=== PATIENT | male | born 1990 | race Caucasian/White ===

== ENCOUNTER 2016-11-27 13:58 | Inpatient (IN) | payer MEDICARE, MEDICAID ==
--- NOTE | 2016-11-27 14:29 | ED ---
General Adult HPI - General Source: patient, RN notes reviewed Mode of arrival: ambulatory Limitations: no limitations <Gavin Huerta - Last Filed: 11/27/16 17:22> <Gavin Grant - Last Filed: 11/27/16 17:57> - General Chief complaint: Psychiatric Symptoms Stated complaint: suicidal Time Seen by Provider: 11/27/16 14:10 - History of Present Illness Initial comments: This is a 26-year-old male who presents to the emergency department claiming that he is suicidal. Patient states she has a history of bipolar. Patient states she's been suicidal for 2 days but is been trying to tough it out because he has a child and wants to have [facility]. Patient states today after having some arguments it became unbearable and he wanted to come to the emergency department to get some help. Patient denies any physical complaints today. Patient denies headache patient denies numbness weakness. Patient denies chest pain palpitations difficulty breathing Brown of breath. Patient denies any recent fever chills or cough. Patient denies abdominal pain patient denies nausea vomiting diarrhea. (Gavin Huerta) - Related Data Home Medications Medication Instructions Recorded Confirmed carBAMazepine [TEGretol XR] 400 mg PO HS 11/28/14 11/27/16 lamoTRIgine [LaMICtal] 200 mg PO BID 11/28/14 11/27/16 Ibuprofen [Motrin] 800 mg PO TID PRN 09/10/16 11/27/16 Levothyroxine Sodium [Synthroid] 50 mcg PO DAILY@0700 09/10/16 11/27/16 [place] Carbonate 900 mg PO HS 09/10/16 11/27/16 PHENobarbital [Luminal] 97.2 mg PO HS 09/10/16 11/27/16 Vortioxetine Hydrobromide 20 mg PO QAM 09/10/16 11/27/16 [Trintellix] carBAMazepine [carBAMazepine ER] 200 mg PO BID 09/10/16 11/27/16 Brexpiprazole [Rexulti] 2 mg PO HS 11/27/16 11/27/16 Allergies Allergy/AdvReac Type Severity Reaction Status Date / Time No Known Allergies Allergy Verified 11/27/16 14:10 Review of Systems ROS Other: All systems not noted in ROS Statement are negative. <Gavin Huerta - Last Filed: 11/27/16 17:22> ROS Other: All systems not noted in ROS Statement are negative. <Gavin Grant - Last Filed: 11/27/16 17:57> ROS Statement: Those systems with pertinent positive or pertinent negative responses have been documented in the HPI. Past Medical History Past Medical History: Seizure Disorder Additional Past Medical History / Comment(s): has history of epilepsy last seizure November 2014 has acne over entire body History of Any Multi-Drug Resistant Organisms: None Reported Past Surgical History: Adenoidectomy, Appendectomy, Cholecystectomy, Tonsillectomy Past Anesthesia/Blood Transfusion Reactions: No Reported Reaction Past Psychological History: Bipolar, Depression Smoking Status: Never smoker Past Alcohol Use History: None Reported, Occasional Additional Past Alcohol Use History / Comment(s): Pt denies. BAT 0. Past Drug Use History: None Reported Additional Drug Use History / Comment(s): Pt denies. UDS positive for barbiturates however patient is on phenobarb. <Gavin Huerta - Last Filed: 11/27/16 17:22> General Exam Limitations: no limitations <Gavin Huerta - Last Filed: 11/27/16 17:22> General appearance: alert, in no apparent distress Head exam: Present: atraumatic, normocephalic, normal inspection Eye exam: Present: normal appearance, PERRL, EOMI. Absent: scleral icterus, conjunctival injection, periorbital swelling ENT exam: Present: normal exam, mucous membranes moist Neck exam: Present: normal inspection. Absent: tenderness, meningismus, lymphadenopathy Respiratory exam: Present: normal lung sounds bilaterally. Absent: respiratory distress, wheezes, rales, rhonchi, stridor Cardiovascular Exam: Present: regular rate, normal rhythm, normal heart sounds. Absent: systolic murmur, diastolic murmur, rubs, gallop, clicks GI/Abdominal exam: Present: soft, normal bowel sounds. Absent: distended, tenderness, guarding, rebound, rigid Extremities exam: Present: normal inspection, full ROM, normal capillary refill. Absent: tenderness, pedal edema, joint swelling, calf tenderness Back exam: Present: normal inspection Neurological exam: Present: alert, oriented X3, CN II-XII intact Psychiatric exam: Present: normal affect, normal mood Skin exam: Present: warm, dry, intact, normal color. Absent: rash <Gavin Grant - Last Filed: 11/27/16 17:57> - General Exam Comments Initial Comments: GENERAL: Patient is well-developed and well-nourished. Patient is nontoxic and well- hydrated and is in no acute distress. ENT: Neck is soft and supple. No significant lymphadenopathy is noted. Oropharynx is clear. Moist mucous membranes. Neck has full range of motion without eliciting any pain. EYES: The sclera were anicteric and conjunctiva were pink and moist. Extraocular movements were intact and pupils were equal round and reactive to light. Eyelids were unremarkable. PULMONARY: Unlabored respirations. Good breath sounds bilaterally. No audible rales rhonchi or wheezing was noted. CARDIOVASCULAR: There is a regular rate and rhythm without any murmurs gallops or rubs. ABDOMEN: Soft and nontender with normal bowel sounds. No palpable organomegaly was noted. There is no palpable pulsatile mass. SKIN: Skin is clear with no lesions or rashes and otherwise unremarkable. NEUROLOGIC: Patient is alert and oriented x3. Cranial nerves II through XII are grossly intact. Motor and sensory are also intact. Normal speech, volume and content. Symmetrical smile. MUSCULOSKELETAL: Normal extremities with adequate strength and full range of motion. No lower extremity swelling or edema. No calf tenderness. LYMPHATICS: No significant lymphadenopathy is noted PSYCHIATRIC: Patient states she suicidal. (Gavin Huerta) Course <Gavin Huerta - Last Filed: 11/27/16 17:22> <Gavin Grant - Last Filed: 11/27/16 17:57> Vital Signs 11/27/16 14:08 Temperature 98.2 F Pulse Rate 69 Respiratory 16 Rate Blood Pressure 125/63 O2 Sat by Pulse 99 Oximetry - Reevaluation(s) Reevaluation #1: 11/27/16 17:57 Patient medically clear for psychiatric evaluation (Gavin Grant) Medical Decision Making <Gavin Huerta - Last Filed: 11/27/16 17:22> <Gavin Grant - Last Filed: 11/27/16 17:57> - Medical Decision Making Dr. Grant will be taking over the care of this patient at 5 PM (Gavin Huerta) 26 male seen and evaluated by psychiatry will admit for psychiatric evaluation and treatment (Gavin Grant) - Lab Data Lab Results 11/27/16 Range/Units 14:40 Urine Opiates Screen Not Detected (NotDetected) Ur Oxycodone Screen Not Detected (NotDetected) Urine Methadone Screen Not Detected (NotDetected) Ur Propoxyphene Screen Not Detected (NotDetected) Ur Barbiturates Screen Detected H (NotDetected) U Tricyclic Antidepress Not Detected (NotDetected) Ur Phencyclidine Scrn Not Detected (NotDetected) Ur Amphetamines Screen Not Detected (NotDetected) U Methamphetamines Scrn Not Detected (NotDetected) U Benzodiazepines Scrn Not Detected (NotDetected) Urine Cocaine Screen Not Detected (NotDetected) U Marijuana (THC) Screen Not Detected (NotDetected) Disposition <Gavin Huerta - Last Filed: 11/27/16 17:22> <Gavin Grant - Last Filed: 11/27/16 17:57> Clinical Impression: Acute anxiety, Suicidal ideation Disposition: TRANSFER TO PSYCH HOSP/UNIT Condition: Fair
[2016-11-27] MEDS ORDERED: MAG HYDROX/AL HYDROX/SIMETH 30 ML CUP PO PRN (17:53)
[2016-11-27] MEDS ORDERED: MAGNESIUM HYDROXIDE 2,400 MG/10 ML CUP PO PRN (17:53)
[2016-11-27] MEDS ORDERED: ACETAMINOPHEN TAB 325 MG TAB PO PRN (17:53)
[2016-11-27] MEDS ORDERED: IBUPROFEN 800 MG TAB PO PRN (17:57)
[2016-11-27] MEDS ORDERED: NICOTINE 7MG/24HR PATCH TRANSDERM SCH (18:00)
[2016-11-27 18:39] LABS: Bilirubin, Delta 0.2 mg/dL (0.0-0.2); Carbamazepine (Tegretol) 7.4 ug/mL; Lithium 0.5 mmol/L; Total Bilirubin 0.4 mg/dL (0.2-1.3); Total Protein 7.7 g/dL (6.3-8.2)
[2016-11-27] MEDS ORDERED: NON-FORMULARY DRUG (Brexpiprazole [Rexulti] 2 MG) PO SCH (21:00)
[2016-11-27] MEDS: LITHIUM CARBONATE 300 MG CAP PO SCH (21:13)
[2016-11-27] MEDS: lamoTRIgine 100 MG TAB PO SCH (21:13)
[2016-11-27] MEDS: carBAMazepine 400 MG TAB.ER.12H PO SCH (21:13)
[2016-11-28] MEDS: LEVOTHYROXINE 50 MCG TAB PO SCH (06:17)
[2016-11-28] MEDS: lamoTRIgine 100 MG TAB PO SCH ×2 (08:54→20:05)
[2016-11-28] MEDS ORDERED: NON-FORMULARY DRUG (Vortioxetine Hydrobromide [Trintellix] 20 MG) PO SCH (09:00)
[2016-11-28 10:43] LABS: Basophils # (A) 0.1 k/uL (0-0.2); Basophils % (A) 1 %; CH 30.6; CHCM 32.7; Eosinophils # (A) 0.5 k/uL (0-0.7); Eosinophils % (A) 6 %; HCT 44.2 % (39.0-53.0); HDW 2.51; HGB 14.6 gm/dL (13.0-17.5); Luc # (Auto) 0.11; Luc % (Auto) 1; Lymphocytes # (A) 1.9 k/uL (1.0-4.8); Lymphocytes % (A) 24 %; MCH 31.1 pg (25.0-35.0); MCHC 33.1 g/dL (31.0-37.0); MCV 94.2 fL (80.0-100.0); Mean Platelet Volume 7.1; Monocytes # (A) 0.3 k/uL (0-1.0); Monocytes % (A) 4 %; Neutrophils % (A) 63 %; RBC 4.69 m/uL (4.30-5.90); RDW 12.7 % (11.5-15.5); WBC 7.8 k/uL (3.8-10.6); WBC (Perox) 8.03
[2016-11-28 10:44] LABS: Anion Gap 8 mmol/L; Blood Urea Nitrogen 12 mg/dL (9-20); Carbon Dioxide 30 mmol/L (22-30); Chloride 104 mmol/L (98-107); Glucose 90 mg/dL (74-99); Non-African American GFR(MDRD) >60 (>60 ml/min/1.73 sqM); Potassium 4.5 mmol/L (3.5-5.1); Sodium 142 mmol/L (137-145)
--- NOTE | 2016-11-28 13:27 | P.HP ---
Psychiatric H&P - . H&P Date: 11/28/16 History & Physical: IDENTIFYING DATA: Mr. Lopez 26-year-old developmentally disabled male who presented voluntarily to the psychiatric unit. HISTORY OF PRESENT ILLNESS: He stated that he was depressed and angry following an argument with his yesterday. During the argument he alleged she told him that she plans to take her son and moved to her own apartment. He stated that he was doing well until the day of admission. They received their disability and he wanted to "pay some bills." She wanted to "wait until tomorrow". He alleged he was angry because she would not let him go to the store to pay the bills alone. The argument continued until he told her that he wants to go to the hospital because he was thinking about suicide. I spoke with his Bre. She stated that he has been feeling "down" since he lost his job. "We have a 1-year-old son and Stephan lost his job after his son's birthday." She believes he is depressed because he's not been able to find work. He feels "disappointed" because he is unable to support his family. Yesterday he wanted to pay bills. She wanted to wait until the following day because the baby was sick and the weather was poor. She stated that he "kept pushing." The arguing escalated until she conceded and accompanied him to pay the bills. On the way back from the store he was angry and "kept arguing." At one point he stopped the car and demanded that she get out. She refused and he returned home. He then told her that he wanted to "check himself in" because he was so angry he could "hurt himself." PAST PSYCHIATRIC HISTORY: He is known to the unit staff from prior admissions. He was discharged on 09/10/2016 with the diagnoses of adjustment disorder with mixed disturbance of emotion and conduct and suicidal ideation. His presentation was similar to the present and that he complained of an argument with his and she is threatening to leave him and take their child. According to the record he has had multiple psychiatric hospitalizations since adolescence. He first received mental health treatment when he was 18 years old. His first psychiatric hospitalization was at age 20. He has been hospitalized over 17 times. He is enrolled with [facility]. PAST MEDICAL HISTORY: He has a history of a seizure disorder treated with phenobarbital 32.4 mg 3 times a day, Lamictal 200 mg twice a day carbamazepine ER 20 mg twice daily and carbamazepineXR 400 mg at bedtime. His last seizure was in 2014. ALLERGIES: NO KNOWN DRUG ALLERGIES. SUBSTANCE USE HISTORY: He denied use of alcohol or drugs. He denied a history of alcohol or drug use problems. He has never been in a substance abuse treatment program. His urine drug screen was positive for barbiturates ( phenobarbital). FAMILY PSYCHIATRIC/SUBSTANCE USE HISTORY: He is unaware of a family history of mental health or substance use problems. LEGAL HISTORY: He is on probation for domestic violence charges stemming from an incident in March 2015. He is on probation to February 2017. This was his first domestic violence charge. SOCIAL HISTORY: He was born and raised in [facility]. He attended special education and graduated from program at age 17. He is currently unemployed. He has been 2 years and has a [id number] son. He has both receives social security disability. MENTAL STATUS EXAM: He presented as a bespectacled casually groomed 26-year-old male who was pleasant on approach. He maintained eye contact and appeared to attend to the interview. He had a distressed facial expression. He was alert and oriented to person, place and time. He showed slight psychomotor retardation but no abnormality of gait or station. His speech was dysarthric with normal rate, rhythm and volume. His affect was depressed. He denied current suicidal ideation or wishes. He denied homicidal ideation. He expressed depressive cognitions such as hopelessness and helplessness. He ruminated about his marital relationship but did not express obsessions or demonstrate compulsions he denied phobias, ideas reference, paranoid ideation and did not express delusional beliefs. His thinking was concrete but his associations are coherent and logical. He denied hallucinations and did not appear to be responding to internal stimuli. Global impression of intellect is below average. He is aware of his illness and need for mental health treatment. STRENGTHS: Engagement with [facility][1], stable income, family support. WEAKNESSES: Developmental disability, poor stress tolerance, poor problem- solving skills. IMPRESSION: Is a 26-year-old male with a developmental disability and a seizure disorder. He presented once again to the unit with complaints of acute suicidal or ideation following an argument with his . He has a history of prior hospitalizations related to conflict in his interpersonal relationships and/or his marriage. The past suicidal thoughts quickly past and he was able to resume outpatient mental health treatment. He should be treated on an inpatient basis temporarily until the level of his anger diminishes where he received can return to outpatient treatment.. PRINCIPLE DIAGNOSIS: Adjustment disorder with disturbance of mood and behavior, developmental disability, seizure disorder, marital conflict RECOMMENDATION: Suicide precautions with 15 minute checks, resume outpatient anticonvulsant medications including Tegretol ER 200 mg twice a day and Tegretol XR 400 mg at bedtime, Lamictal 20 mg twice a day and phenobarbital 97.2 mg at bedtime. Continue lithium carbonate 900 mg at bedtime. residential support worker to contact his about bringing in his outpatient prescriptions for Rexulti 2 milligrams at bedtime and Trintellix 20 mg a.m. residential support worker to contact his and coordinate discharge plans. Encourage participation in therapeutic groups and activities. Evaluate clinical status and response to treatment daily basis. Allergies Allergy/AdvReac Type Severity Reaction Status Date / Time No Known Allergies Allergy Verified 11/27/16 18:34 Vital Signs Temp 97.2 F L 11/27/16 18:43 Pulse 103 H 11/28/16 06:36 Resp 18 11/28/16 06:36 BP 157/83 11/28/16 06:36 Pulse Ox 98 11/27/16 18:08 Intake & Output 11/27/16 11/28/16 11/28/16 18:59 06:59 18:59 Weight 79.515 kg Laboratory Last Values WBC 7.8 k/uL (3.8-10.6) 11/28/16 09:51 RBC 4.69 m/uL (4.30-5.90) 11/28/16 09:51 Hgb 14.6 gm/dL (13.0-17.5) 11/28/16 09:51 Hct 44.2 % (39.0-53.0) 11/28/16 09:51 MCV 94.2 fL (80.0-100.0) 11/28/16 09:51 MCH 31.1 pg (25.0-35.0) 11/28/16 09:51 MCHC 33.1 g/dL (31.0-37.0) 11/28/16 09:51 RDW 12.7 % (11.5-15.5) 11/28/16 09:51 Plt Count 241 k/uL (150-450) 11/28/16 09:51 Neutrophils % 63 % 11/28/16 09:51 Lymphocytes % 24 % 11/28/16 09:51 Monocytes % 4 % 11/28/16 09:51 Eosinophils % 6 % 11/28/16 09:51 Basophils % 1 % 11/28/16 09:51 Neutrophils # 5.0 k/uL (1.3-7.7) 11/28/16 09:51 Lymphocytes # 1.9 k/uL (1.0-4.8) 11/28/16 09:51 Monocytes # 0.3 k/uL (0-1.0) 11/28/16 09:51 Eosinophils # 0.5 k/uL (0-0.7) 11/28/16 09:51 Basophils # 0.1 k/uL (0-0.2) 11/28/16 09:51 Sodium 142 mmol/L (137-145) 11/28/16 09:51 Potassium 4.5 mmol/L (3.5-5.1) 11/28/16 09:51 Chloride 104 mmol/L (98-107) 11/28/16 09:51 Carbon Dioxide 30 mmol/L (22-30) 11/28/16 09:51 Anion Gap 8 mmol/L 11/28/16 09:51 BUN 12 mg/dL (9-20) 11/28/16 09:51 Creatinine 0.96 mg/dL (0.66-1.25) 11/28/16 09:51 Est GFR (MDRD) Af Amer >60 (>60 ml/min/1.73 sqM) 11/28/16 09:51 Est GFR (MDRD) Non-Af >60 (>60 ml/min/1.73 sqM) 11/28/16 09:51 Glucose 90 mg/dL (74-99) 11/28/16 09:51 Calcium 10.0 mg/dL (8.4-10.2) 11/28/16 09:51 Total Bilirubin 0.4 mg/dL (0.2-1.3) 11/27/16 16:30 Conjugated Bilirubin 0.0 mg/dL (0.0-0.3) 11/27/16 16:30 Unconjugated Bilirubin 0.2 mg/dL (0.0-1.1) 11/27/16 16:30 Delta Bilirubin 0.2 mg/dL (0.0-0.2) 11/27/16 16:30 AST 19 U/L (17-59) 11/27/16 16:30 ALT 23 U/L (21-72) 11/27/16 16:30 Alkaline Phosphatase 123 U/L (38-126) 11/27/16 16:30 Total Protein 7.7 g/dL (6.3-8.2) 11/27/16 16:30 Albumin 4.3 g/dL (3.5-5.0) 11/27/16 16:30 Urine Opiates Screen Not Detected (NotDetected) 11/27/16 14:40 Ur Oxycodone Screen Not Detected (NotDetected) 11/27/16 14:40 Urine Methadone Screen Not Detected (NotDetected) 11/27/16 14:40 Ur Propoxyphene Screen Not Detected (NotDetected) 11/27/16 14:40 Ur Barbiturates Screen Detected (NotDetected) H 11/27/16 14:40 Carbamazepine 7.4 ug/mL 11/27/16 16:30 U Tricyclic Antidepress Not Detected (NotDetected) 11/27/16 14:40 Ur Phencyclidine Scrn Not Detected (NotDetected) 11/27/16 14:40 Ur Amphetamines Screen Not Detected (NotDetected) 11/27/16 14:40 U Methamphetamines Scrn Not Detected (NotDetected) 11/27/16 14:40 U Benzodiazepines Scrn Not Detected (NotDetected) 11/27/16 14:40 [place] 0.5 mmol/L 11/27/16 16:30 Urine Cocaine Screen Not Detected (NotDetected) 11/27/16 14:40 U Marijuana (THC) Screen Not Detected (NotDetected) 11/27/16 14:40 11/28/16 10:50 11/28/16 12:57
--- NOTE | 2016-11-28 15:54 | P.CONS ---
History of Present Illness - Reason for Consult Consult date: 11/28/16 Headache, medical management Requesting physician: Luciano Perera - Chief Complaint Psychiatric symptoms - History of Present Illness Patient is a 26-year-old male, patient of Dr. Keating in the outpatient setting, with medical history significant for seizure disorder, bipolar and depression. Patient presented to the emergency department with complaints of suicidal ideation. Patient was admitted to the psychiatric unit for evaluation and treatment. Upon examination, patient complains of nonproductive cough and occasional headache. Denies chills, fevers, nausea, vomiting, shortness of breath, chest pain, or abdominal pain. Vital signs reviewed with no evidence of fevers or leukocytosis. Labs reviewed and essentially unremarkable. Past Medical History Past Medical History: Seizure Disorder Additional Past Medical History / Comment(s): has history of epilepsy last seizure November 2014 has acne over entire body History of Any Multi-Drug Resistant Organisms: None Reported Past Surgical History: Adenoidectomy, Appendectomy, Cholecystectomy, Tonsillectomy Past Anesthesia/Blood Transfusion Reactions: No Reported Reaction Past Psychological History: Bipolar, Depression Smoking Status: Never smoker Past Alcohol Use History: None Reported, Occasional Additional Past Alcohol Use History / Comment(s): Pt denies. BAT 0. Past Drug Use History: None Reported Additional Drug Use History / Comment(s): Pt denies. UDS positive for barbiturates however patient is on phenobarb. Medications and Allergies Home Medications Medication Instructions Recorded Confirmed Type carBAMazepine [TEGretol XR] 400 mg PO HS 11/28/14 11/27/16 History lamoTRIgine [LaMICtal] 200 mg PO BID 11/28/14 11/27/16 History Ibuprofen [Motrin] 800 mg PO TID PRN 09/10/16 11/27/16 History Levothyroxine Sodium [Synthroid] 50 mcg PO DAILY@0700 09/10/16 11/27/16 History [place] Carbonate 900 mg PO HS 09/10/16 11/27/16 History PHENobarbital [Luminal] 97.2 mg PO HS 09/10/16 11/27/16 History Vortioxetine Hydrobromide 20 mg PO QAM 09/10/16 11/27/16 History [Trintellix] carBAMazepine [carBAMazepine ER] 200 mg PO BID 09/10/16 11/27/16 History Brexpiprazole [Rexulti] 2 mg PO HS 11/27/16 11/27/16 History Allergies Allergy/AdvReac Type Severity Reaction Status Date / Time No Known Allergies Allergy Verified 11/27/16 18:34 Physical Exam Vitals: Vital Signs Temp Pulse Pulse Resp BP BP Pulse Ox 11/28/16 06:36 103 H 18 157/83 11/27/16 18:43 97.2 F L 78 20 115/64 11/27/16 18:08 97.9 F 69 16 129/70 98 GENERAL: Pt awake and alert, and in no acute distress. HEAD: Atraumatic, normocephalic. EYES: Pupils equal, round, and reactive to light, extraocular movements intact, sclera anicteric, conjunctiva are normal. ENT: Oropharynx clear without exudates. Moist mucous membranes. NECK:Normal range of motion, supple without lymphadenopathy or JVD. LUNGS: Breath sounds coarse to auscultation bilaterally. No wheezes, rales, or rhonchi. HEART: Heart S1, S2, no S3 or S4. No murmurs, rubs or gallops. ABDOMEN: Soft, nontender, nondistended, normoactive bowel sounds. No guarding, no rebound. No masses or organomegaly appreciated. EXTREMITIES: Palpable peripheral pulses. No edema. No calf tenderness. NEUROLOGICAL: Pt oriented x 3. No focal deficits. Strength and sensation grossly intact. PSYCH: Normal mood, normal affect. SKIN: Warm, dry, intact. Results CBC & Chem 7: 11/28/16 09:51 11/28/16 09:51 Assessment and Plan Plan: Impression and plan: 1. Suicidal ideation. Patient has been admitted to psychiatric unit for treatment evaluation. 2. Upper respiratory infection, suspect viral. 3. History of epilepsy. 4. History of bipolar and depression. Medications been reviewed and resumed as appropriate. Patient may continue Motrin 800 for headache. We'll add Mucinex and Robitussin for cough relief. Patient will follow-up with Dr. Keating in the outpatient setting. The above impression and plan have been discussed and directed by Dr. Miles. Gustabo MCDONALD acting as scribe for Dr. Miles.
[2016-11-28] MEDS: carBAMazepine 200 MG TAB PO SCH (16:33)
[2016-11-28] MEDS: guaiFENesin-DM 100-10MG/5ML 10 ML CUP PO PRN ×2 (16:33→22:22)
[2016-11-28] MEDS ORDERED: LORazepam 1 MG TAB PO PRN (18:48)
[2016-11-28] MEDS: LITHIUM CARBONATE 300 MG CAP PO SCH (20:05)
[2016-11-28] MEDS: carBAMazepine 400 MG TAB.ER.12H PO SCH (20:05)
[2016-11-28] MEDS: guaiFENesin 600 MG TABLET.ER PO SCH (20:05)
[2016-11-28] MEDS ORDERED: PHENobarbital 32.4 MG TAB PO SCH (21:00)
[2016-11-29] MEDS: LEVOTHYROXINE 50 MCG TAB PO SCH (05:32)
[2016-11-29 06:46] VITALS: RESP 16
[2016-11-29] MEDS: lamoTRIgine 100 MG TAB PO SCH (08:36)
[2016-11-29] MEDS: carBAMazepine 200 MG TAB PO SCH (08:36)
[2016-11-29] MEDS: guaiFENesin 600 MG TABLET.ER PO SCH (08:37)
[2016-11-29] MEDS: guaiFENesin-DM 100-10MG/5ML 10 ML CUP PO PRN (09:03)
[2016-11-29 10:15] VITALS: BP 129/70; PULSE 69; TEMP 97.9; BMI 24.4
--- NOTE | 2016-11-29 12:56 | P.DS ---
Providers Date of admission: 11/27/16 17:47 Attending physician: Luciano Perera MD Consults: 11/27/16 17:53 Consult Physician Routine Consulting Provider: Roc Keating Jr Consult Reason/Comments: h and p, eval and tx, r/o metabolic disorder Do you want consulting provider notified?: Already Contacted Primary care physician: Roc Keating - Discharge Diagnosis(es) (1) Seizure disorder Status: Chronic Priority: High (2) Adjustment disorder with mixed disturbance of emotions and conduct Status: Resolved Priority: High (3) Suicidal ideation Status: Resolved Priority: High Hospital Course: Mr. Lopez 26-year-old developmentally disabled male who presented voluntarily to the psychiatric unit. He stated that he was depressed and angry following an argument with his yesterday. During the argument he alleged she told him that she plans to take her son and moved to her own apartment. He stated that he was doing well until the day of admission. They received their disability and he wanted to "pay some bills." She wanted to "wait until tomorrow". He alleged he was angry because she would not let him go to the store to pay the bills alone. The argument continued until he told her that he wants to go to the hospital because he was thinking about suicide. I spoke with his Bre. She stated that he has been feeling "down" since he lost his job. "We have a 1-year-old son and Stephan lost his job after his son's birthday." She believes he is depressed because he's not been able to find work. He feels "disappointed" because he is unable to support his family. Yesterday he wanted to pay bills. She wanted to wait until the following day because the baby was sick and the weather was poor. She stated that he "kept pushing." The arguing escalated until she conceded and accompanied him to pay the bills. On the way back from the store he was angry and "kept arguing." At one point he stopped the car and demanded that she get out. She refused and he returned home. He then told her that he wanted to "check himself in" because he was so angry he could "hurt himself." He is known to the unit staff from prior admissions. He was discharged on 09/10 with the diagnoses of adjustment disorder with mixed disturbance of emotion and conduct and suicidal ideation. His presentation was similar to the present and that he complained of an argument with his and she is threatening to leave him and take their child. According to the record he has had multiple psychiatric hospitalizations since adolescence. He first received mental health treatment when he was 18 years old. His first psychiatric hospitalization was at age 20. He has been hospitalized over 17 times. He is enrolled with [facility]. We admitted him to the psychiatric unit under the care of this fha underwriter. We provided a biopsychosocial assessment. We continued his outpatient medications including Tegretol 200 mg twice daily and Tegretol-XR 400 mg at bedtime, Lamictal 200 mg twice a day and phenobarbital 97.2 mg at bedtime. We also continued his outpatient psychotropic medications including lithium carbonate 900 mg at bedtime, Rexulti 2 mg at bedtime and Trintellix 20 mg a.m. His urine drug screen was positive for barbiturates only. His serum carbamazepine level was 7.4, phenobarbital level was 10.5 and lithium level was 0.5. We clarified the circumstances leading to admission with his . After he spoke to his and she assured him that she is not leaving his anxiety, anger and suicidal ideation abated. He participated in some therapeutic activities although his developmental disability prevented full participation. At time of discharge she denied thoughts of or suicide. His affect was bright and he expressed commitment to continued outpatient mental health treatment. Patient Condition at Discharge: Fair Plan - Discharge Summary Discharge Medication List carBAMazepine [TEGretol XR] 400 mg PO HS 11/28/14 [History] lamoTRIgine [LaMICtal] 200 mg PO BID 11/28/14 [History] Ibuprofen [Motrin] 800 mg PO TID PRN 09/10/16 [History] Levothyroxine Sodium [Synthroid] 50 mcg PO DAILY@0700 09/10/16 [History] [place] Carbonate 900 mg PO HS 09/10/16 [History] PHENobarbital [Luminal] 97.2 mg PO HS 09/10/16 [History] Vortioxetine Hydrobromide [Trintellix] 20 mg PO QAM 09/10/16 [History] carBAMazepine [carBAMazepine ER] 200 mg PO BID 09/10/16 [History] Brexpiprazole [Rexulti] 2 mg PO HS 11/27/16 [History] Follow up Appointment(s)/Referral(s): [facility] [Outside] - 12/10/16 2:00 pm (Jessica ) oRc Keating Jr, [Primary Care Provider] - 1-2 days Patient Instructions/Handouts: Depression (DC), Suicide Prevention for Adults ( DC) Discharge Disposition: HOME SELF-CARE
== END 2016-11-29 09:17 | disposition home or self-care (01) | DRG 882 ==
LOC: EEVIPCON 13:58 → EC 13:58 → 3MHU 17:47
PROVIDERS: ADMIT Psychiatry & Neurology Psychiatry; ATTEND Psychiatry & Neurology Psychiatry
DX: F43.25 Adjustment disorder with mixed disturbance of emotions and conduct (principal); R45.851 Suicidal ideations; G40.909 Epilepsy, unspecified, not intractable, without status epilepticus; F32.9 Major depressive disorder, single episode, unspecified; F41.9 Anxiety disorder, unspecified; R51 Headache; J06.9 Acute upper respiratory infection, unspecified; Z63.0 Problems in relationship with spouse or partner; Z79.899 Other long term (current) drug therapy
CPT/HCPCS: 36415; 80048; 80076; 80156; 80178; 80184; 80306; 82075; 84443; 85025; 99285

== ENCOUNTER 2016-12-09 17:04 | Emergency (ER) | payer MEDICARE, OTHER ==
[2016-12-09 17:25] VITALS: RESP 18
[2016-12-09] MEDS ORDERED: KETOROLAC 30 MG/ML 1 ML VIAL IVP STA (17:28)
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
[2016-12-09 18:44] VITALS: BP 124/60; PULSE 73; TEMP 98
== END 2016-12-09 18:44 | disposition home or self-care (01) ==
LOC: EC 17:04
DX: S80.01XA Contusion of right knee, initial encounter (principal); G40.909 Epilepsy, unspecified, not intractable, without status epilepticus; F32.9 Major depressive disorder, single episode, unspecified; V43.52XA Car driver injured in collision with other type car in traffic accident, initial encounter; Z79.899 Other long term (current) drug therapy
CPT/HCPCS: 99284; 96374; 73564; J1885

== ENCOUNTER → 2017-01-10 | Outpatient (CLI) | payer MEDICARE, MEDICAID ==
[2017-01-10 13:52] LABS: Anion Gap 11 mmol/L; Blood Urea Nitrogen 10 mg/dL (9-20); Calcium 9.5 mg/dL (8.4-10.2); Carbon Dioxide 27 mmol/L (22-30); Chloride 105 mmol/L (98-107); Cholesterol 169 mg/dL (<200); Glucose 80 mg/dL (74-99); HDL Cholesterol 46 mg/dL (40-60); Lithium 0.6 mmol/L; Non-African American GFR(MDRD) >60 (>60 ml/min/1.73 sqM); Phosphorous 3.1 mg/dL (2.5-4.5); Potassium 4.1 mmol/L (3.5-5.1); Sodium 143 mmol/L (137-145); Triglycerides 71 mg/dL (<150)
== END | disposition home or self-care (01) ==
LOC: LABWHC1 11:55
PROVIDERS: ATTEND Psychiatry & Neurology Psychiatry
DX: F33.2 Major depressive disorder, recurrent severe without psychotic features (principal); Z79.899 Other long term (current) drug therapy
CPT/HCPCS: 36415; 80061; 80069; 80178; 83036; 84439; 84443

== ENCOUNTER 2017-02-27 00:48 | Emergency (ER) | payer MEDICARE, OTHER ==
--- NOTE | 2017-02-27 01:14 | ED ---
General Adult HPI - General Chief complaint: Psychiatric Symptoms Stated complaint: Mental Health Time Seen by Provider: 02/27/17 01:02 Source: patient, EMS, RN notes reviewed, old records reviewed Mode of arrival: EMS Limitations: no limitations - History of Present Illness Initial comments: This is a 26-year-old male here for evaluation. The patient is to yesterday for evaluation of psychiatric evaluation, mental health evaluation denies drugs or alcohol, patient admits to significant depression - Related Data Home Medications Medication Instructions Recorded Confirmed carBAMazepine [TEGretol XR] 400 mg PO HS 11/28/14 12/09/16 lamoTRIgine [LaMICtal] 200 mg PO BID 11/28/14 12/09/16 [place] Carbonate 900 mg PO HS 09/10/16 12/09/16 PHENobarbital [Luminal] 97.2 mg PO HS 09/10/16 12/09/16 carBAMazepine [carBAMazepine ER] 200 mg PO BID 09/10/16 12/09/16 Brexpiprazole [Rexulti] 2 mg PO HS 11/27/16 12/09/16 Vortioxetine Hydrobromide 20 mg PO QAM 12/09/16 12/09/16 [Brintellix] Previous Rx's Medication Instructions Recorded Ibuprofen [Motrin] 800 mg PO Q8HR PRN #20 tab 12/09/16 Allergies Allergy/AdvReac Type Severity Reaction Status Date / Time No Known Allergies Allergy Verified 12/09/16 17:44 Review of Systems ROS Statement: Those systems with pertinent positive or pertinent negative responses have been documented in the HPI. ROS Other: All systems not noted in ROS Statement are negative. Past Medical History Past Medical History: Seizure Disorder Additional Past Medical History / Comment(s): has history of epilepsy History of Any Multi-Drug Resistant Organisms: None Reported Past Surgical History: Adenoidectomy, Appendectomy, Cholecystectomy, Tonsillectomy Past Anesthesia/Blood Transfusion Reactions: No Reported Reaction Past Psychological History: Depression Smoking Status: Never smoker Past Alcohol Use History: None Reported Additional Past Alcohol Use History / Comment(s): Pt denies. BAT 0. Past Drug Use History: None Reported Additional Drug Use History / Comment(s): Pt denies. UDS positive for barbiturates however patient is on phenobarb. General Exam Limitations: no limitations General appearance: alert, in no apparent distress Head exam: Present: atraumatic, normocephalic, normal inspection Eye exam: Present: normal appearance, PERRL, EOMI. Absent: scleral icterus, conjunctival injection, periorbital swelling ENT exam: Present: normal exam, mucous membranes moist Neck exam: Present: normal inspection. Absent: tenderness, meningismus, lymphadenopathy Respiratory exam: Present: normal lung sounds bilaterally. Absent: respiratory distress, wheezes, rales, rhonchi, stridor Cardiovascular Exam: Present: regular rate, normal rhythm, normal heart sounds. Absent: systolic murmur, diastolic murmur, rubs, gallop, clicks GI/Abdominal exam: Present: soft, normal bowel sounds. Absent: distended, tenderness, guarding, rebound, rigid Extremities exam: Present: normal inspection, full ROM, normal capillary refill. Absent: tenderness, pedal edema, joint swelling, calf tenderness Back exam: Present: normal inspection Neurological exam: Present: alert, oriented X3, CN II-XII intact Psychiatric exam: Present: normal affect, normal mood Skin exam: Present: warm, dry, intact, normal color. Absent: rash Course Vital Signs 02/27/17 00:57 Temperature 98.9 F Pulse Rate 78 Respiratory 20 Rate Blood Pressure 132/63 O2 Sat by Pulse 100 Oximetry - Reevaluation(s) Reevaluation #1: 02/27/17 01:14 Patient's medically clear for psychiatric evaluation Medical Decision Making - Medical Decision Making 26 male who was seen and evaluated by psych outpatient is medically clear for psychiatric evaluation, not homicidal or suicidal and okay for discharge home Disposition Clinical Impression: Depression, Acute anxiety, Major depressive disorder, recurrent, severe w/o psychotic behavior Disposition: HOME SELF-CARE Condition: Good Instructions: Depression (ED) Referrals: Leighton Lu MD [Primary Care Provider] - 1-2 days
[2017-02-27 04:15] VITALS: BP 120/63; PULSE 76; RESP 16; TEMP 97.6
== END 2017-02-27 04:15 | disposition home or self-care (01) ==
LOC: EC 00:48
DX: F32.2 Major depressive disorder, single episode, severe without psychotic features (principal); F41.9 Anxiety disorder, unspecified; G40.909 Epilepsy, unspecified, not intractable, without status epilepticus; Z79.899 Other long term (current) drug therapy
CPT/HCPCS: 82075; 99285

== ENCOUNTER 2017-03-10 14:40 | Emergency (ER) | payer MEDICARE, OTHER ==
[2017-03-10 14:46] VITALS: BP 126/71; PULSE 84; RESP 20; TEMP 97.8
--- NOTE | 2017-03-10 15:23 | ED ---
URI HPI - General Chief Complaint: Upper Respiratory Infection Stated Complaint: cough Time Seen by Provider: 03/10/17 15:15 Source: patient, RN notes reviewed, old records reviewed Mode of arrival: ambulatory Limitations: no limitations - History of Present Illness Initial Comments: Physical 26-year-old male presenting to the emergency department with chief complaint of cough and upper respiratory congestion for the past week. Patient reports he saw Dr. Simon was placed on amoxicillin approximately one week ago. He has been taking and has 3 days left. Patient reports that he went to [facility] and he gave him a cough syrup. Patient reports that he is not getting any better with the antibiotic or cough syrup. He states that he did throw up one time after taking the cough syrup. Patient states that he's had no fevers. Cough has been nonproductive. Patient denies any abdominal pain, difficulty urinating. Patient reports that his bowel movements have been somewhat runny and dark green over the past 3 days. Patient denies any travel history or history of sick contacts. - Related Data Home Medications Medication Instructions Recorded Confirmed carBAMazepine [TEGretol XR] 400 mg PO HS 11/28/14 12/09/16 lamoTRIgine [LaMICtal] 200 mg PO BID 11/28/14 12/09/16 [place] Carbonate 900 mg PO HS 09/10/16 12/09/16 PHENobarbital [Luminal] 97.2 mg PO HS 09/10/16 12/09/16 carBAMazepine [carBAMazepine ER] 200 mg PO BID 09/10/16 12/09/16 Brexpiprazole [Rexulti] 2 mg PO HS 11/27/16 12/09/16 Vortioxetine Hydrobromide 20 mg PO QAM 12/09/16 12/09/16 [Brintellix] Previous Rx's Medication Instructions Recorded Ibuprofen [Motrin] 800 mg PO Q8HR PRN #20 tab 12/09/16 Benzonatate [Tessalon Perles] 100 mg PO TID PRN #20 capsule 03/10/17 methylPREDNISolone Dose Pack 4 mg PO DIRECTED #21 package 03/10/17 [Medrol Dose Pack] Allergies Allergy/AdvReac Type Severity Reaction Status Date / Time No Known Allergies Allergy Verified 03/10/17 14:46 Review of Systems ROS Statement: Those systems with pertinent positive or pertinent negative responses have been documented in the HPI. ROS Other: All systems not noted in ROS Statement are negative. Past Medical History Past Medical History: Seizure Disorder Additional Past Medical History / Comment(s): has history of epilepsy History of Any Multi-Drug Resistant Organisms: None Reported Past Surgical History: Adenoidectomy, Appendectomy, Cholecystectomy, Tonsillectomy Past Anesthesia/Blood Transfusion Reactions: No Reported Reaction Past Psychological History: Depression Smoking Status: Never smoker Past Alcohol Use History: None Reported Additional Past Alcohol Use History / Comment(s): Pt denies. BAT 0. Past Drug Use History: None Reported Additional Drug Use History / Comment(s): Pt denies. UDS positive for barbiturates however patient is on phenobarb. General Exam - General Exam Comments Initial Comments: Pleasant 26-year-old male. No acute distress. Limitations: no limitations General appearance: alert, in no apparent distress Head exam: Present: atraumatic, normocephalic, normal inspection Eye exam: Present: normal appearance, PERRL, EOMI. Absent: scleral icterus, conjunctival injection, periorbital swelling ENT exam: Present: normal exam, mucous membranes moist Neck exam: Present: normal inspection. Absent: tenderness, meningismus, lymphadenopathy Respiratory exam: Present: normal lung sounds bilaterally. Absent: respiratory distress, wheezes, rales, rhonchi, stridor Cardiovascular Exam: Present: regular rate, normal rhythm, normal heart sounds. Absent: systolic murmur, diastolic murmur, rubs, gallop, clicks GI/Abdominal exam: Present: soft, normal bowel sounds. Absent: distended, tenderness, guarding, rebound, rigid Extremities exam: Present: normal inspection, full ROM, normal capillary refill. Absent: tenderness, pedal edema, joint swelling, calf tenderness Back exam: Present: normal inspection Neurological exam: Present: alert, oriented X3, CN II-XII intact Psychiatric exam: Present: normal affect, normal mood Skin exam: Present: warm, dry, intact, normal color. Absent: rash Course Vital Signs 03/10/17 14:44 Temperature 97.8 F Pulse Rate 84 Respiratory 20 Rate Blood Pressure 126/71 O2 Sat by Pulse 98 Oximetry Medical Decision Making - Medical Decision Making Physical 26-year-old male presenting to the emergency department with chief complaint of cough and upper respiratory congestion for the past week. Patient reports he saw Dr. Simon was placed on amoxicillin approximately one week ago. He has been taking and has 3 days left. Patient reports that he went to [facility] and he gave him a cough syrup. Patient reports that he is not getting any better with the antibiotic or cough syrup. He states that he did throw up one time after taking the cough syrup. Patient states that he's had no fevers. Cough has been nonproductive. Patient's chest x-ray was reviewed and negative for any acute process. Patient will be started on a steroid Dosepak as well as given Tessalon Perles for his cough. Discussed that he needs to follow-up with primary care provider but to continue the antibiotic prescription. Advised rest and remain hydrated. agrees to treatment plan will comply. Return parameters were discussed. - Radiology Data Radiology results: report reviewed Chest x-ray was reviewed and negative for any acute cardiopulmonary process. Disposition Clinical Impression: Cough Disposition: HOME SELF-CARE Condition: Good Instructions: Upper Respiratory Infection (ED) Additional Instructions: Patient is to rest, increase fluids. Complete the steroid pack as well as use cough pills as directed. Follow-up with your primary care provider symptoms continue to persist. Return to the emergency department if any alarming signs or symptoms occur. Complete the previously prescribed antibiotics. Prescriptions: Benzonatate [Tessalon Perles] 100 mg PO TID PRN #20 capsule PRN Reason: Cough methylPREDNISolone Dose Pack [Medrol Dose Pack] 4 mg PO DIRECTED #21 package Referrals: None,Stated [Primary Care Provider] - 1-2 days Roc Keating Jr, DO [Doctor of Osteopathic Medicine] - 1-2 days Time of Disposition: 15:37
--- NOTE | 2017-03-10 15:33 | XR ---
EXAMINATION TYPE: XR chest 2V DATE OF EXAM: 03/10/2017 COMPARISON: NONE TECHNIQUE: PA and lateral views submitted. HISTORY: Chest pain and productive cough FINDINGS: The lungs are clear and there is no pneumothorax, pleural effusion, or focal pneumonia. Hypertrophic change of the spine. No overt failure. IMPRESSION: 1. No acute process.
== END 2017-03-10 15:43 | disposition home or self-care (01) ==
LOC: EC 14:40
DX: R05 Cough (principal); R09.81 Nasal congestion; G40.909 Epilepsy, unspecified, not intractable, without status epilepticus; F32.9 Major depressive disorder, single episode, unspecified; Z79.899 Other long term (current) drug therapy
CPT/HCPCS: 71020; 99284

== ENCOUNTER 2017-05-02 13:24 | Inpatient (IN) | payer MEDICARE, MEDICAID ==
--- NOTE | 2017-05-02 13:50 | ED ---
Psych HPI - General Chief Complaint: Psychiatric Symptoms Stated Complaint: suicidal Time Seen by Provider: 05/02/17 13:35 Source: patient, RN notes reviewed Mode of arrival: ambulatory Limitations: no limitations - History of Present Illness Initial Comments: 27-year-old male presents emergency department for psychiatric evaluation. Patient is brought to emergency department by [facility] for possible admission. They did contact [facility] for evaluation. Patient states that he is suicidal and very depressed secondary to an argument with his significant other. Patient states he has not hurt himself but states that he did not come here that he would be . Patient denies any drug or alcohol abuse. Denies any physical complaints. - Related Data Home Medications Medication Instructions Recorded Confirmed carBAMazepine [TEGretol XR] 400 mg PO HS 11/28/14 05/02/17 lamoTRIgine [LaMICtal] 200 mg PO BID 11/28/14 05/02/17 [place] Carbonate 900 mg PO HS 09/10/16 05/02/17 PHENobarbital [Luminal] 97.2 mg PO HS 09/10/16 05/02/17 carBAMazepine [carBAMazepine ER] 200 mg PO BID 09/10/16 05/02/17 Brexpiprazole [Rexulti] 2 mg PO HS 11/27/16 05/02/17 Vortioxetine Hydrobromide 20 mg PO QAM 12/09/16 05/02/17 [Brintellix] Ativan (Unknown Dose) 1 tab PO DAILY PRN 03/10/17 05/02/17 Previous Rx's Medication Instructions Recorded Ibuprofen [Motrin] 800 mg PO Q8HR PRN #20 tab 12/09/16 Allergies Allergy/AdvReac Type Severity Reaction Status Date / Time No Known Allergies Allergy Verified 05/02/17 14:02 Review of Systems ROS Statement: Those systems with pertinent positive or pertinent negative responses have been documented in the HPI. ROS Other: All systems not noted in ROS Statement are negative. Past Medical History Past Medical History: Seizure Disorder Additional Past Medical History / Comment(s): has history of epilepsy History of Any Multi-Drug Resistant Organisms: None Reported Past Surgical History: Adenoidectomy, Appendectomy, Cholecystectomy, Tonsillectomy Past Anesthesia/Blood Transfusion Reactions: No Reported Reaction Past Psychological History: Depression Smoking Status: Never smoker Past Alcohol Use History: None Reported Past Drug Use History: None Reported General Exam Limitations: no limitations General appearance: alert, in no apparent distress Head exam: Present: atraumatic, normocephalic, normal inspection Eye exam: Present: normal appearance, PERRL, EOMI. Absent: scleral icterus, conjunctival injection, periorbital swelling ENT exam: Present: normal exam, normal oropharynx, mucous membranes moist, TM's normal bilaterally, normal external ear exam Neck exam: Present: normal inspection, full ROM. Absent: tenderness, meningismus, lymphadenopathy Respiratory exam: Present: normal lung sounds bilaterally. Absent: respiratory distress, wheezes, rales, rhonchi, stridor Cardiovascular Exam: Present: regular rate, normal rhythm, normal heart sounds. Absent: systolic murmur, diastolic murmur, rubs, gallop, clicks GI/Abdominal exam: Present: soft, normal bowel sounds. Absent: distended, tenderness, guarding, rebound, rigid Neurological exam: Present: alert, oriented X3, CN II-XII intact Psychiatric exam: Present: depressed, flat affect Skin exam: Present: warm, dry, intact, normal color. Absent: rash Course Vital Signs 05/02/17 13:28 Temperature 97.0 F L Pulse Rate 85 Respiratory 16 Rate Blood Pressure 137/71 O2 Sat by Pulse 98 Oximetry Medical Decision Making - Lab Data Lab Results 05/02/17 Range/Units 14:10 Urine Opiates Screen Not Detected (NotDetected) Ur Oxycodone Screen Not Detected (NotDetected) Urine Methadone Screen Not Detected (NotDetected) Ur Propoxyphene Screen Not Detected (NotDetected) Ur Barbiturates Screen Detected H (NotDetected) U Tricyclic Antidepress Not Detected (NotDetected) Ur Phencyclidine Scrn Not Detected (NotDetected) Ur Amphetamines Screen Not Detected (NotDetected) U Methamphetamines Scrn Not Detected (NotDetected) U Benzodiazepines Scrn Not Detected (NotDetected) Urine Cocaine Screen Not Detected (NotDetected) U Marijuana (THC) Screen Not Detected (NotDetected) Disposition Clinical Impression: Depression, Suicidal ideation Disposition: ADMITTED IP TO THIS [facility] Referrals: None,Stated [Primary Care Provider] - 1-2 days
[2017-05-02] MEDS ORDERED: MAGNESIUM HYDROXIDE 2,400 MG/10 ML CUP PO PRN (15:46)
[2017-05-02] MEDS ORDERED: MAG HYDROX/AL HYDROX/SIMETH 30 ML CUP PO PRN (15:46)
[2017-05-02] MEDS ORDERED: ACETAMINOPHEN TAB 325 MG TAB PO PRN (15:46)
[2017-05-02] MEDS ORDERED: ZIPRASIDONE 20 MG VIAL IM PRN (15:46)
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
[2017-05-02] MEDS: IBUPROFEN 800 MG TAB PO PRN (17:21)
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
[2017-05-02] MEDS: carBAMazepine 400 MG TAB.ER.12H PO SCH (20:43)
[2017-05-02] MEDS: lamoTRIgine 100 MG TAB PO SCH (20:44)
[2017-05-02] MEDS: LITHIUM CARBONATE 300 MG CAP PO SCH (20:44)
[2017-05-02] MEDS: PHENobarbital 32.4 MG TAB PO SCH (20:44)
[2017-05-03] MEDS: IBUPROFEN 800 MG TAB PO PRN (04:10)
[2017-05-03 08:10] VITALS: BMI 25.9
--- NOTE | 2017-05-03 08:33 | P.PN ---
Progress Note - Text Interval History: Patient is a 27-year-old male who was admitted yesterday after getting into an argument with his and having suicidal thoughts with a plan to use a knife to create "bloodshed". Patient also reports that he has been depressed over the week prior to that due to quitting his job and now feeling that he can't support his son and is a deadbeat. Patient was seen today and he reports that he is continuing to feel slightly depressed about the fact that he can't support his son and doesn't have a job. Patient states that his suicidal thoughts are less frequent and he has no plan to act and does not wish to act. Patient reported that he has tooth pain and took some Motrin last evening with good relief. He reports he has a court date on Friday for violation of probation. Patient had no other concerns at this time. Mental Status: Appearance/Attitude: Patient was appropriately dressed, and cooperative. Behavior: He did not exhibit any psychomotor agitation or retardation. Speech/Language: Patient's speech was spontaneous, of normal volume and rhythm and he was coherent. Thought Process: Patient was goal-directed and there is no evidence of circumstantial or tangential thought and no flight of ideas or loose associations. Thought Content: Patient denied any auditory or visual hallucinations and no paranoid or delusional ideation was elicited. Patient reported continuing to feel somewhat hopeless about the fact that he does not have a job and feels he cannot support his son. Patient states that he slept fairly well however to tooth pain did awaken him. Suicidal/Homicidal Ideation: Patient states that his suicidal ideation is not as frequent and he has no plan or intent to act. Patient denies any current homicidal ideation. Sensorium/Cognition: Patient is alert and oriented to person, place, and time and his memory is grossly intact. Mood/Affect: Patient's mood remains slightly depressed and his affect is blunted. Insight/Judgement: Patient's insight and judgment are fair. Assessment: Patient was admitted for similar issues that have precipitated prior admissions that is having a disagreement/argument with his and having suicidal ideation this time with a plan to use a knife to create bloodshed as well as ongoing feelings of not being able to support his son. Patient had her job but quit the job due to thinking he was going to serve time in [facility]. Patient has been cooperative on the unit and reports that he is feeling slightly less depressed and not having as frequent suicidal thoughts. Plan: Patient will continue on his current medications of lithium carbonate to target his mood, Rexulti to augment his mood, Brintellix to target his depression and he continues on Lamictal, Tegretol and phenobarbital to control his seizures. Patient's laboratory studies are pending. Patient continues to require hospitalization due to continued suicidal ideation should patient continue to improve at discharge on Friday. Patient was encouraged to attend and participate in groups and activities.
[2017-05-03] MEDS: lamoTRIgine 100 MG TAB PO SCH ×2 (08:57→20:43)
[2017-05-03 09:25] LABS: Basophils % (A) 0 %; CH 31.6; CHCM 33.2; Eosinophils # (A) 0.7 k/uL (0-0.7); Eosinophils % (A) 7 %; HCT 48.3 % (39.0-53.0); HDW 2.45; HGB 15.6 gm/dL (13.0-17.5); Luc # (Auto) 0.11; Luc % (Auto) 1; Lymphocytes # (A) 2.2 k/uL (1.0-4.8); Lymphocytes % (A) 22 %; MCH 30.9 pg (25.0-35.0); MCHC 32.3 g/dL (31.0-37.0); MCV 95.7 fL (80.0-100.0); Mean Platelet Volume 7.1; Monocytes # (A) 0.4 k/uL (0-1.0); Monocytes % (A) 4 %; Neutrophils # (A) 6.4 k/uL (1.3-7.7); Neutrophils % (A) 65 %; RBC 5.04 m/uL (4.30-5.90); RDW 13.6 % (11.5-15.5); WBC 9.7 k/uL (3.8-10.6); WBC (Perox) 9.38
[2017-05-03 09:42] LABS: ALT 26 U/L (21-72); AST 19 U/L (17-59); Alkaline Phosphatase 120 U/L (38-126); Anion Gap 15 mmol/L; Bilirubin, Delta 0.3 mg/dL (0.0-0.2); Blood Urea Nitrogen 13 mg/dL (9-20); Carbamazepine (Tegretol) 8.9 ug/mL; Carbon Dioxide 25 mmol/L (22-30); Chloride 104 mmol/L (98-107); Glucose 96 mg/dL (74-99); Lithium 0.7 mmol/L; Non-African American GFR(MDRD) >60 (>60 ml/min/1.73 sqM); Potassium 4.5 mmol/L (3.5-5.1); Sodium 144 mmol/L (137-145); Total Bilirubin 0.5 mg/dL (0.2-1.3); Total Protein 8.1 g/dL (6.3-8.2)
[2017-05-03] MEDS: LORazepam 1 MG TAB PO PRN ×2 (10:05→18:41)
[2017-05-03] MEDS: VORTIOXETINE HYDROBROMIDE 20 MG PO SCH (12:12)
[2017-05-03] MEDS: PHENobarbital 32.4 MG TAB PO SCH (20:43)
[2017-05-03] MEDS: LITHIUM CARBONATE 300 MG CAP PO SCH (20:43)
[2017-05-03] MEDS: carBAMazepine 400 MG TAB.ER.12H PO SCH (20:43)
[2017-05-03] MEDS: BREXPIPRAZOLE 2 MG PO SCH (20:44)
[2017-05-04] MEDS: IBUPROFEN 800 MG TAB PO PRN ×2 (06:08→15:51)
[2017-05-04] MEDS: LORazepam 1 MG TAB PO PRN (07:49)
[2017-05-04] MEDS: lamoTRIgine 100 MG TAB PO SCH ×2 (07:50→20:36)
[2017-05-04] MEDS: VORTIOXETINE HYDROBROMIDE 20 MG PO SCH (07:50)
--- NOTE | 2017-05-04 09:02 | P.PN ---
Progress Note - Text Interval History: Patient is a 27-year-old male who is seen today and reports that he took an Ativan prior to seeing me because he was upset that I would not let his son visit him on the unit. Patient states that he is no longer having suicidal thoughts and reports that he slept fairly well last night. Patient states he wants to leave by tomorrow morning so that he can attend his 11 AM therapy session at [facility]. Patient reported no other concerns at this time. Mental Status: Appearance/Attitude: Patient is neatly dressed, makes intermittent eye contact due to feeling groggy as he is just taken an Ativan and he is cooperative. Behavior: Patient displayed no psychomotor agitation or retardation. Speech/Language: Patient's speech is spontaneous, of normal volume and he is coherent. Thought Process: Patient is goal-directed and there is no evidence of any circumstantial or tangential thought and no loose associations or flight of ideas. Thought Content: Patient denies any auditory or visual hallucinations and no paranoid or delusional ideation was elicited. Patient reports that he is ready to go home, was upset that his son was not allowed to visit yesterday. Suicidal/Homicidal Ideation: Patient denies any current suicidal or homicidal ideation. Sensorium/Cognition: Patient is oriented to person, place, and time and his memory is grossly intact. Mood/Affect: Patient's mood remains slightly irritable and his affect is appropriate. Insight/Judgement: Patient's insight and judgment are fair. Assessment: Patient has been cooperative on the unit and has not expressed any suicidal ideation and states he is sleeping and eating well and has been attending groups and activities and participating. He was upset that I would not allow his son to visit yesterday and is reporting that he is ready to return home so that he can attend an 11 AM therapy appointment at [facility]. Patient had no other concerns. Patient's Tegretol level was 8.9, his lithium level was 0.7 and his phenobarbital level was 14.7. Plan: Patient will continue on his current medications which include Tegretol 600 mg of extended release, Lamictal 200 mg twice a day and lithium 900 mg at bedtime and Brintellix 20 mg and Rexulti 2 mg. Will plan for patient's discharge tomorrow if he is no longer expressing or having suicidal ideation and reports he is ready to return home. Patient states he has an 11 AM appointment with his therapist at [facility] but is unsure of when his next appointment with his psychiatrist is.
[2017-05-04] MEDS: PHENobarbital 32.4 MG TAB PO SCH (20:36)
[2017-05-04] MEDS: carBAMazepine 400 MG TAB.ER.12H PO SCH (20:36)
[2017-05-04] MEDS: LITHIUM CARBONATE 300 MG CAP PO SCH (20:36)
[2017-05-04] MEDS: BREXPIPRAZOLE 2 MG PO SCH (20:37)
[2017-05-05] MEDS: IBUPROFEN 800 MG TAB PO PRN (06:43)
[2017-05-05 06:51] VITALS: BP 123/70; PULSE 82; RESP 18; TEMP 98
--- NOTE | 2017-05-05 08:59 | P.DS ---
Providers Date of admission: 05/02/17 15:37 Expected date of discharge: 05/05/17 Attending physician: Britta Abreu MD Consults: 05/02/17 15:46 Consult Physician Routine Consulting Provider: David Melchor Consult Reason/Comments: H & P and medical care Do you want consulting provider notified?: Yes Primary care physician: Stated None Hospital Course: Discharge Diagnoses: Bipolar disorder, current episode depressed Reason for Admission: Patient is a 27-year-old male who presented to the emergency room brought in by the mobile crisis unit from [facility] after he had told a friend that he was having suicidal thoughts and had a plan. Patient reported that he had been feeling depressed recently after he quit his job in February thinking that he was going to be in [facility] for a charge of malicious destruction of property. However the patient's current probation for domestic violence was extended and he did not need to go to [facility]. Patient reports that he could not return to that job and has been looking for another one. Patient states that he and his had an argument on the day of admission about his pain a bill twice and she was yelling at him. Patient reports that they fight a lot about finances and states that he became increasingly depressed and had suicidal thoughts with a plan to use knives and that there would be "a lot of bloodshed". Patient has a long history of psychiatric illness with multiple admissions since the age of 18 and his last admission was here in November 2016 and this again was following an argument with his . Patient has been followed at [facility] and states he's been compliant with his medication. Patient is currently taking lithium carbonate 900 mg at bedtime, Rexulti 2 mg at bedtime,Brintellix 20 mg in the morning for his bipolar disorder and Lamictal 200 mg a day, Tegretol extended release 200 mg in the morning 600 mg at bedtime and luminal 97.2 mg a day for his seizure disorder. Hospital Course: Patient was admitted and placed on suicide precautions, routine laboratory studies were ordered as well as levels of his antiseizure medication and lithium. 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 Patient reports he was sleeping well, no longer feeling hopeless and continued to report no further suicidal ideation. Patient's serum levels of his drugs were all within therapeutic limits and the patient reported no complaints of side effects from his medication. Patient reported that he was feeling ready to return home, stated that he was no longer upset with his and that he had a therapy session on the day of discharge with his therapist. Discharge Mental Status:Appearance/Attitude: Patient is neatly and appropriately dressed, cooperative and made good eye contact. Behavior: Patient displayed no psychomotor agitation or retardation. Speech/Language: Patient's speech was spontaneous, of normal volume and he was coherent. Thought Process: Patient was goal-directed, there is no evidence of any circumstantial or tangential thought no loose associations or flight of ideas. Thought Content: Patient denied any auditory or visual hallucinations, no paranoid or delusional ideation was elicited. Patient reports that he will is continue to look for a job so that he does not feel like a deadbeat dad, reports that he is not feeling hopeless and that he and his are no longer arguing. Suicidal/Homicidal Ideation: Patient denies any current suicidal or homicidal ideation Sensorium/Cognition: Patient is alert and oriented to person, place, and time and his memory is grossly intact. Mood/Affect: Patient's mood is euthymic and his affect is appropriate. Insight/Judgement: Patient's insight and judgment are fair. Risk Assessment: Patient's risk for self-harm is low as patient is compliant with medication and treatment Laboratory Last Values WBC 9.7 k/uL (3.8-10.6) 05/03/17 08:54 RBC 5.04 m/uL (4.30-5.90) 05/03/17 08:54 Hgb 15.6 gm/dL (13.0-17.5) 05/03/17 08:54 Hct 48.3 % (39.0-53.0) 05/03/17 08:54 MCV 95.7 fL (80.0-100.0) 05/03/17 08:54 MCH 30.9 pg (25.0-35.0) 05/03/17 08:54 MCHC 32.3 g/dL (31.0-37.0) 05/03/17 08:54 RDW 13.6 % (11.5-15.5) 05/03/17 08:54 Plt Count 243 k/uL (150-450) 05/03/17 08:54 Neutrophils % 65 % 05/03/17 08:54 Lymphocytes % 22 % 05/03/17 08:54 Monocytes % 4 % 05/03/17 08:54 Eosinophils % 7 % 05/03/17 08:54 Basophils % 0 % 05/03/17 08:54 Neutrophils # 6.4 k/uL (1.3-7.7) 05/03/17 08:54 Lymphocytes # 2.2 k/uL (1.0-4.8) 05/03/17 08:54 Monocytes # 0.4 k/uL (0-1.0) 05/03/17 08:54 Eosinophils # 0.7 k/uL (0-0.7) 05/03/17 08:54 Basophils # 0.0 k/uL (0-0.2) 05/03/17 08:54 Sodium 144 mmol/L (137-145) 05/03/17 08:54 Potassium 4.5 mmol/L (3.5-5.1) 05/03/17 08:54 Chloride 104 mmol/L (98-107) 05/03/17 08:54 Carbon Dioxide 25 mmol/L (22-30) 05/03/17 08:54 Anion Gap 15 mmol/L 05/03/17 08:54 BUN 13 mg/dL (9-20) 05/03/17 08:54 Creatinine 0.90 mg/dL (0.66-1.25) 05/03/17 08:54 Est GFR (MDRD) Af Amer >60 (>60 ml/min/1.73 sqM) 05/03/17 08:54 Est GFR (MDRD) Non-Af >60 (>60 ml/min/1.73 sqM) 05/03/17 08:54 Glucose 96 mg/dL (74-99) 05/03/17 08:54 Calcium 10.0 mg/dL (8.4-10.2) 05/03/17 08:54 Total Bilirubin 0.5 mg/dL (0.2-1.3) 05/03/17 08:54 Conjugated Bilirubin 0.0 mg/dL (0.0-0.3) 05/03/17 08:54 Unconjugated Bilirubin 0.2 mg/dL (0.0-1.1) 05/03/17 08:54 Delta Bilirubin 0.3 mg/dL (0.0-0.2) H 05/03/17 08:54 AST 19 U/L (17-59) 05/03/17 08:54 ALT 26 U/L (21-72) 05/03/17 08:54 Alkaline Phosphatase 120 U/L (38-126) 05/03/17 08:54 Total Protein 8.1 g/dL (6.3-8.2) 05/03/17 08:54 Albumin 4.8 g/dL (3.5-5.0) 05/03/17 08:54 TSH 0.831 mIU/L (0.465-4.680) 05/03/17 08:54 Urine Opiates Screen Not Detected (NotDetected) 05/02/17 14:10 Ur Oxycodone Screen Not Detected (NotDetected) 05/02/17 14:10 Urine Methadone Screen Not Detected (NotDetected) 05/02/17 14:10 Ur Propoxyphene Screen Not Detected (NotDetected) 05/02/17 14:10 Ur Barbiturates Screen Detected (NotDetected) H 05/02/17 14:10 Carbamazepine 8.9 ug/mL 05/03/17 08:54 U Tricyclic Antidepress Not Detected (NotDetected) 05/02/17 14:10 Ur Phencyclidine Scrn Not Detected (NotDetected) 05/02/17 14:10 Ur Amphetamines Screen Not Detected (NotDetected) 05/02/17 14:10 U Methamphetamines Scrn Not Detected (NotDetected) 05/02/17 14:10 Phenobarbital 14.7 ug/mL (15.0-40.0) L 05/03/17 08:54 U Benzodiazepines Scrn Not Detected (NotDetected) 05/02/17 14:10 [place] 0.7 mmol/L 05/03/17 08:54 Urine Cocaine Screen Not Detected (NotDetected) 05/02/17 14:10 U Marijuana (THC) Screen Not Detected (NotDetected) 05/02/17 14:10 Allergies No Known Allergies Allergy (Verified 05/03/17 09:37) Discharge Plan: Patient will return home to live with his and son, he will continue on his prior medication and states that he has an 11:00 appointment today at [facility] with his therapist and will follow-up with his psychiatrist. Patient also will follow-up with his neurologist. Patient stated that he had sufficient medication at home and no prescriptions were given and he will continue on lithium carbonate 900 mg at bedtime, Lamictal 200 mg twice a day, Tegretol extended release 200 mg in the morning and 600 mg at bedtime, Brintellix 20 mg in the morning, luminal 97.2 mg and rexulti 2mg at bedtime. Patient was also taking Ativan 1mg prn at home and will continue with this. Patient was encouraged to continue looking for a job. Patient Condition at Discharge: Stable Plan - Discharge Summary New Discharge Prescriptions: Continue carBAMazepine [TEGretol XR] 400 mg PO HS lamoTRIgine [LaMICtal] 200 mg PO BID carBAMazepine [carBAMazepine ER] 200 mg PO BID [place] Carbonate 900 mg PO HS PHENobarbital [Luminal] 97.2 mg PO HS Brexpiprazole [Rexulti] 2 mg PO HS Vortioxetine Hydrobromide [Brintellix] 20 mg PO QAM Ibuprofen [Motrin] 800 mg PO Q8HR PRN #20 tab PRN Reason: Pain Ativan (Unknown Dose) 1 tab PO DAILY PRN PRN Reason: Anxiety Discharge Medication List carBAMazepine [TEGretol XR] 400 mg PO HS 11/28/14 [History] lamoTRIgine [LaMICtal] 200 mg PO BID 11/28/14 [History] [place] Carbonate 900 mg PO HS 09/10/16 [History] PHENobarbital [Luminal] 97.2 mg PO HS 09/10/16 [History] carBAMazepine [carBAMazepine ER] 200 mg PO BID 09/10/16 [History] Brexpiprazole [Rexulti] 2 mg PO HS 11/27/16 [History] Ibuprofen [Motrin] 800 mg PO Q8HR PRN #20 tab 12/09/16 [Rx] Vortioxetine Hydrobromide [Brintellix] 20 mg PO QAM 12/09/16 [History] Ativan (Unknown Dose) 1 tab PO DAILY PRN 03/10/17 [History] Follow up Appointment(s)/Referral(s): [facility] [Outside] - 05/05/17 11:00 am (Jessica Kumar) None,Stated [Primary Care Provider] - 1-2 days Discharge Disposition: HOME SELF-CARE
[2017-05-05] MEDS: lamoTRIgine 100 MG TAB PO SCH (09:32)
[2017-05-05] MEDS: VORTIOXETINE HYDROBROMIDE 20 MG PO SCH (09:33)
== END 2017-05-05 09:39 | disposition home or self-care (01) | DRG 885 ==
LOC: EC 13:24 → 3MHU 15:37
PROVIDERS: ADMIT Psychiatry & Neurology Psychiatry; ATTEND Psychiatry & Neurology Psychiatry
DX: F31.9 Bipolar disorder, unspecified (principal); F79 Unspecified intellectual disabilities; G40.909 Epilepsy, unspecified, not intractable, without status epilepticus; K08.89 Other specified disorders of teeth and supporting structures; Z79.899 Other long term (current) drug therapy
CPT/HCPCS: 80053; 80156; 80178; 80184; 80306; 82075; 82248; 84443; 85025; 99285

== ENCOUNTER 2017-05-06 23:48 | Emergency (ER) | payer MEDICARE, OTHER ==
[2017-05-06] MEDS ORDERED: SODIUM CHLORIDE 0.9% 1,000 ML IV STA ×2 (23:56)
--- NOTE | 2017-05-06 23:58 | ED ---
General Adult HPI - General Stated complaint: fever,vomiting Time Seen by Provider: 05/06/17 23:49 Source: RN notes reviewed, old records reviewed - History of Present Illness Initial comments: This is a 19-year-old male to the ER for evaluation. This patient does come. Further evaluation regarding seizure activity, not acting appropriately and the altered mental status, nausea and vomiting. Patient is recently released from 3 last year and a half group. Patient's medications are delivered in daily packets and given to him as directed. Patient denies drug overdose Complaints. Patient admits that he feels tired but denies headache or any injuries. Patient had PD called the house for altered mental status, they did witness seizure - Related Data Home Medications Medication Instructions Recorded Confirmed carBAMazepine [TEGretol XR] 400 mg PO HS 11/28/14 05/02/17 lamoTRIgine [LaMICtal] 200 mg PO BID 11/28/14 05/02/17 [place] Carbonate 900 mg PO HS 09/10/16 05/02/17 PHENobarbital [Luminal] 97.2 mg PO HS 09/10/16 05/02/17 carBAMazepine [carBAMazepine ER] 200 mg PO BID 09/10/16 05/02/17 Brexpiprazole [Rexulti] 2 mg PO HS 11/27/16 05/02/17 Vortioxetine Hydrobromide 20 mg PO QAM 12/09/16 05/02/17 [Brintellix] Ativan (Unknown Dose) 1 tab PO DAILY PRN 03/10/17 05/02/17 Previous Rx's Medication Instructions Recorded Ibuprofen [Motrin] 800 mg PO Q8HR PRN #20 tab 12/09/16 Allergies Allergy/AdvReac Type Severity Reaction Status Date / Time No Known Allergies Allergy Verified 05/07/17 00:00 Review of Systems ROS Statement: Those systems with pertinent positive or pertinent negative responses have been documented in the HPI. ROS Other: All systems not noted in ROS Statement are negative. Past Medical History Past Medical History: Seizure Disorder Additional Past Medical History / Comment(s): has history of epilepsy grand mal seizures since childhood History of Any Multi-Drug Resistant Organisms: None Reported Past Surgical History: Adenoidectomy, Cholecystectomy, Tonsillectomy Additional Past Surgical History / Comment(s): Patient is not sure if he had appendectomy or no Past Anesthesia/Blood Transfusion Reactions: No Reported Reaction Past Psychological History: Depression Smoking Status: Never smoker Past Alcohol Use History: None Reported Additional Past Alcohol Use History / Comment(s): Denies any alcohol intake since he is on probation Past Drug Use History: None Reported Additional Drug Use History / Comment(s): Denies any illicit drugs or any marijuana use - Past Family History Brother(s) Family Medical History: Asthma Mother Family Medical History: Cancer General Exam General appearance: alert, in no apparent distress Head exam: Present: atraumatic, normocephalic, normal inspection Eye exam: Present: normal appearance, PERRL, EOMI. Absent: scleral icterus, conjunctival injection, periorbital swelling ENT exam: Present: normal exam, mucous membranes moist Neck exam: Present: normal inspection. Absent: tenderness, meningismus, lymphadenopathy Respiratory exam: Present: normal lung sounds bilaterally. Absent: respiratory distress, wheezes, rales, rhonchi, stridor Cardiovascular Exam: Present: regular rate, normal rhythm, normal heart sounds. Absent: systolic murmur, diastolic murmur, rubs, gallop, clicks GI/Abdominal exam: Present: soft, normal bowel sounds. Absent: distended, tenderness, guarding, rebound, rigid Extremities exam: Present: normal inspection, full ROM, normal capillary refill. Absent: tenderness, pedal edema, joint swelling, calf tenderness Back exam: Present: normal inspection Neurological exam: Present: alert, oriented X3, CN II-XII intact Psychiatric exam: Present: normal affect, normal mood Skin exam: Present: warm, dry, intact, normal color. Absent: rash Course Vital Signs 05/07/17 05/07/17 05/07/17 00:01 01:04 01:25 Temperature 97.1 F L 97.1 F L Pulse Rate 98 85 83 Respiratory 18 18 18 Rate Blood Pressure 111/68 118/85 117/71 O2 Sat by Pulse 97 96 98 Oximetry - Reevaluation(s) Reevaluation #1: 05/07/17 02:29 Patient without seizure-like activity here in the emergency room EKG Findings - EKG Comments: EKG Findings:: EKG shows normal sinus of respiratory 4, UT 18, QRS, QTC 417 Medical Decision Making - Medical Decision Making Putting of the ER for evaluation regarding altered mental status, nausea vomiting, patient is without active nausea vomiting here in the ER, no seizure activity. Patient can be discharged home - Lab Data Result diagrams: 05/07/17 00:39 05/07/17 00:39 Lab Results 05/07/17 05/07/17 05/07/17 Range/Units 00:39 00:39 00:39 WBC 14.6 H (3.8-10.6) k/uL RBC 4.46 (4.30-5.90) m/uL Hgb 13.9 (13.0-17.5) gm/dL Hct 41.8 (39.0-53.0) % MCV 93.7 (80.0-100.0) fL MCH 31.2 (25.0-35.0) pg MCHC 33.2 (31.0-37.0) g/dL RDW 13.3 (11.5-15.5) % Plt Count 232 (150-450) k/uL Neutrophils % 84 % Lymphocytes % 9 % Monocytes % 4 % Eosinophils % 3 % Basophils % 0 % Neutrophils # 12.2 H (1.3-7.7) k/uL Lymphocytes # 1.3 (1.0-4.8) k/uL Monocytes # 0.5 (0-1.0) k/uL Eosinophils # 0.5 (0-0.7) k/uL Basophils # 0.0 (0-0.2) k/uL PT (9.0-12.0) sec INR (<1.2) APTT (22.0-30.0) sec Sodium 141 (137-145) mmol/L Potassium 3.8 (3.5-5.1) mmol/L Chloride 107 (98-107) mmol/L Carbon Dioxide 23 (22-30) mmol/L Anion Gap 11 mmol/L BUN 13 (9-20) mg/dL Creatinine 0.80 (0.66-1.25) mg/dL Est GFR (MDRD) Af Amer >60 (>60 ml/min/1.73 sqM) Est GFR (MDRD) Non-Af >60 (>60 ml/min/1.73 sqM) Glucose 104 H (74-99) mg/dL Plasma Lactic Acid Ramirez (0.7-2.0) mmol/L Calcium 9.5 (8.4-10.2) mg/dL Phosphorus 2.1 L (2.5-4.5) mg/dL Magnesium 2.2 (1.6-2.3) mg/dL Total Bilirubin 0.3 (0.2-1.3) mg/dL AST 16 L (17-59) U/L ALT 24 (21-72) U/L Alkaline Phosphatase 107 (38-126) U/L Ammonia (<30) umol/L Total Creatine Kinase 57 (55-170) U/L CK-MB (CK-2) 0.3 (0.0-2.4) ng/mL CK-MB (CK-2) Rel Index 0.5 Troponin I <0.012 (0.000-0.034) ng/mL Total Protein 7.5 (6.3-8.2) g/dL Albumin 4.5 (3.5-5.0) g/dL Salicylates <1.0 mg/dL Acetaminophen <10.0 ug/mL Phenytoin <3.0 ug/mL Valproic Acid <10.0 ug/mL Carbamazepine 5.5 ug/mL [place] 0.4 mmol/L Serum Alcohol <10 mg/dL 05/07/17 05/07/17 Range/Units 00:39 00:39 WBC (3.8-10.6) k/uL RBC (4.30-5.90) m/uL Hgb (13.0-17.5) gm/dL Hct (39.0-53.0) % MCV (80.0-100.0) fL MCH (25.0-35.0) pg MCHC (31.0-37.0) g/dL RDW (11.5-15.5) % Plt Count (150-450) k/uL Neutrophils % % Lymphocytes % % Monocytes % % Eosinophils % % Basophils % % Neutrophils # (1.3-7.7) k/uL Lymphocytes # (1.0-4.8) k/uL Monocytes # (0-1.0) k/uL Eosinophils # (0-0.7) k/uL Basophils # (0-0.2) k/uL PT 11.2 (9.0-12.0) sec INR 1.1 (<1.2) APTT 22.4 (22.0-30.0) sec Sodium (137-145) mmol/L Potassium (3.5-5.1) mmol/L Chloride (98-107) mmol/L Carbon Dioxide (22-30) mmol/L Anion Gap mmol/L BUN (9-20) mg/dL Creatinine (0.66-1.25) mg/dL Est GFR (MDRD) Af Amer (>60 ml/min/1.73 sqM) Est GFR (MDRD) Non-Af (>60 ml/min/1.73 sqM) Glucose (74-99) mg/dL Plasma Lactic Acid Ramirez 2.0 (0.7-2.0) mmol/L Calcium (8.4-10.2) mg/dL Phosphorus (2.5-4.5) mg/dL Magnesium (1.6-2.3) mg/dL Total Bilirubin (0.2-1.3) mg/dL AST (17-59) U/L ALT (21-72) U/L Alkaline Phosphatase (38-126) U/L Ammonia 30 H (<30) umol/L Total Creatine Kinase (55-170) U/L CK-MB (CK-2) (0.0-2.4) ng/mL CK-MB (CK-2) Rel Index Troponin I (0.000-0.034) ng/mL Total Protein (6.3-8.2) g/dL Albumin (3.5-5.0) g/dL Salicylates mg/dL Acetaminophen ug/mL Phenytoin ug/mL Valproic Acid ug/mL Carbamazepine ug/mL [place] mmol/L Serum Alcohol mg/dL Disposition Clinical Impression: Seizure disorder, Epileptic seizure Disposition: HOME SELF-CARE Condition: Good Instructions: Recurrent Seizures in Adults (ED) Referrals: None,Stated [Primary Care Provider] - 1-2 days
[2017-05-07 00:04] VITALS: RESP 18; TEMP 97.1
[2017-05-07 00:52] LABS: Basophils % (A) 0 %; CHCM 34.2; Eosinophils # (A) 0.5 k/uL (0-0.7); Eosinophils % (A) 3 %; HCT 41.8 % (39.0-53.0); HDW 2.41; HGB 13.9 gm/dL (13.0-17.5); Luc # (Auto) 0.08; Luc % (Auto) 1; Lymphocytes # (A) 1.3 k/uL (1.0-4.8); Lymphocytes % (A) 9 %; MCH 31.2 pg (25.0-35.0); MCHC 33.2 g/dL (31.0-37.0); MCV 93.7 fL (80.0-100.0); Mean Platelet Volume 6.8; Monocytes # (A) 0.5 k/uL (0-1.0); Monocytes % (A) 4 %; Neutrophils # (A) 12.2 k/uL (1.3-7.7); Neutrophils % (A) 84 %; RBC 4.46 m/uL (4.30-5.90); RDW 13.3 % (11.5-15.5); WBC 14.6 k/uL (3.8-10.6); WBC (Perox) 14.35
[2017-05-07 01:05] LABS: ALT 24 U/L (21-72); AST 16 U/L (17-59); Acetaminophen <10.0 ug/mL; Alcohol <10 mg/dL; Alkaline Phosphatase 107 U/L (38-126); Anion Gap 11 mmol/L; Blood Urea Nitrogen 13 mg/dL (9-20); Calcium 9.5 mg/dL (8.4-10.2); Carbamazepine (Tegretol) 5.5 ug/mL; Carbon Dioxide 23 mmol/L (22-30); Chloride 107 mmol/L (98-107); Glucose 104 mg/dL (74-99); INR 1.1 (<1.2); Lithium 0.4 mmol/L; Magnesium 2.2 mg/dL (1.6-2.3); Non-African American GFR(MDRD) >60 (>60 ml/min/1.73 sqM); Phosphorous 2.1 mg/dL (2.5-4.5); Potassium 3.8 mmol/L (3.5-5.1); Prothrombin Time 11.2 sec (9.0-12.0); Salicylate <1.0 mg/dL; Sodium 141 mmol/L (137-145); Total Bilirubin 0.3 mg/dL (0.2-1.3); Total Protein 7.5 g/dL (6.3-8.2)
[2017-05-07 01:12] LABS: Partial Thromboplastin Time 22.4 sec (22.0-30.0)
[2017-05-07 01:15] LABS: Creatine Kinase 57 U/L (55-170)
[2017-05-07 01:28] LABS: Creatine Kinase MB 0.3 ng/mL (0.0-2.4); Troponin I <0.012 ng/mL (0.000-0.034)
[2017-05-07 02:44] VITALS: BP 116/76; PULSE 66
== END 2017-05-07 02:45 | disposition home or self-care (01) ==
LOC: EC 23:48
DX: G40.909 Epilepsy, unspecified, not intractable, without status epilepticus (principal); R11.2 Nausea with vomiting, unspecified; F32.9 Major depressive disorder, single episode, unspecified; Z79.899 Other long term (current) drug therapy
CPT/HCPCS: 36415; 80053; 80156; 80164; 80178; 80185; 80320; 82140; 82550; 82553; 83520; 83605; 83735; 84100; 84484; 85025; 85610; 85730; 93005; 96360; 96361; 99284

== ENCOUNTER 2017-05-21 12:33 | Emergency (ER) | payer MEDICARE, OTHER ==
[2017-05-21 12:46] VITALS: BP 131/78; PULSE 64; RESP 18; TEMP 98.6
--- NOTE | 2017-05-21 12:53 | ED ---
Back Pain HPI - General Chief Complaint: Back Pain/Injury Stated Complaint: Back Pain Time Seen by Provider: 05/21/17 12:47 Source: patient, RN notes reviewed Limitations: no limitations - History of Present Illness Initial Comments: This is a 27-year-old male presents emergency Department chief complaint back pain. Patient states that he has had on and off for last week and at 2 weeks. Patient states it's worse with movement better at rest. Patient does not remember exactly injury but states he does remember lifting some things that may have caused the pain. Patient has a bowel, bladder incontinence or retention. Denies any saddle anesthesias no lower extremity paresthesias. He has no pain areas down his legs. Patient denies any abdominal complaints including nausea, vomiting, diarrhea or constipation. Patient has been taking [id number] Motrin with some relief. - Related Data Home Medications Medication Instructions Recorded Confirmed carBAMazepine [TEGretol XR] 400 mg PO HS 11/28/14 05/02/17 lamoTRIgine [LaMICtal] 200 mg PO BID 11/28/14 05/02/17 [place] Carbonate 900 mg PO HS 09/10/16 05/02/17 PHENobarbital [Luminal] 97.2 mg PO HS 09/10/16 05/02/17 carBAMazepine [carBAMazepine ER] 200 mg PO BID 09/10/16 05/02/17 Brexpiprazole [Rexulti] 2 mg PO HS 11/27/16 05/02/17 Vortioxetine Hydrobromide 20 mg PO QAM 12/09/16 05/02/17 [Brintellix] Ativan (Unknown Dose) 1 tab PO DAILY PRN 03/10/17 05/02/17 Previous Rx's Medication Instructions Recorded Ibuprofen [Motrin] 800 mg PO Q8HR PRN #20 tab 12/09/16 Acetaminophen-Codeine 300-30mg 1 tab PO Q4H PRN #20 tablet 05/21/17 [Tylenol #3] Cyclobenzaprine [Flexeril] 10 mg PO TID PRN #15 tab 05/21/17 methylPREDNISolone [Medrol Dose 4 mg PO DIRECTED #1 pack 05/21/17 Pack] Allergies Allergy/AdvReac Type Severity Reaction Status Date / Time No Known Allergies Allergy Verified 05/21/17 12:46 Review of Systems ROS Statement: Those systems with pertinent positive or pertinent negative responses have been documented in the HPI. ROS Other: All systems not noted in ROS Statement are negative. Past Medical History Past Medical History: Seizure Disorder Additional Past Medical History / Comment(s): has history of epilepsy grand mal seizures since childhood History of Any Multi-Drug Resistant Organisms: None Reported Past Surgical History: Adenoidectomy, Cholecystectomy, Tonsillectomy Additional Past Surgical History / Comment(s): Patient is not sure if he had appendectomy or no Past Anesthesia/Blood Transfusion Reactions: No Reported Reaction Past Psychological History: Depression Smoking Status: Never smoker Past Alcohol Use History: None Reported Past Drug Use History: None Reported - Past Family History Brother(s) Family Medical History: Asthma Mother Family Medical History: Cancer General Exam Limitations: no limitations General appearance: alert, in no apparent distress Neck exam: Present: normal inspection, full ROM. Absent: tenderness, meningismus, lymphadenopathy Respiratory exam: Present: normal lung sounds bilaterally. Absent: respiratory distress, wheezes, rales, rhonchi, stridor Cardiovascular Exam: Present: regular rate, normal rhythm, normal heart sounds. Absent: systolic murmur, diastolic murmur, rubs, gallop, clicks GI/Abdominal exam: Present: soft, normal bowel sounds. Absent: distended, tenderness, guarding, rebound, rigid Extremities exam: Present: normal inspection, full ROM, normal capillary refill , other (Lower extremities neurovascular intact, strength equal 5/5 pedal pulses equal bilaterally). Absent: tenderness, pedal edema, joint swelling, calf tenderness Back exam: Present: normal inspection, full ROM (Moderate discomfort with flexion extension rotation), tenderness (Upper lumbar and lower thoracic region) , paraspinal tenderness. Absent: CVA tenderness (R), CVA tenderness (L), vertebral tenderness Neurological exam: Present: alert, oriented X3, CN II-XII intact, reflexes normal. Absent: motor sensory deficit Course Vital Signs 05/21/17 12:42 Temperature 98.6 F Pulse Rate 64 Respiratory 18 Rate Blood Pressure 131/78 O2 Sat by Pulse 100 Oximetry Medical Decision Making - Medical Decision Making 19-year-old male presented for back pain. Patient's pain seems to be muscle skeletal in nature, patient has no abdominal tenderness no fever no flank or CVA tenderness. Patient has no red flag symptoms. Patient we discharged advised to do daily stretching apply heat and ice and return if symptoms worsen. Disposition Clinical Impression: Back pain Disposition: HOME SELF-CARE Condition: Stable Instructions: Acute Low Back Pain (ED) Additional Instructions: Please return to the Emergency Department if symptoms worsen or any other concerns. Prescriptions: Acetaminophen-Codeine 300-30mg [Tylenol #3] 1 tab PO Q4H PRN #20 tablet PRN Reason: pain Cyclobenzaprine [Flexeril] 10 mg PO TID PRN #15 tab PRN Reason: Muscle Spasm methylPREDNISolone [Medrol Dose Pack] 4 mg PO DIRECTED #1 pack Referrals: None,Stated [Primary Care Provider] - 1-2 days Time of Disposition: 12:53
== END 2017-05-21 13:03 | disposition home or self-care (01) ==
LOC: EC 12:33
DX: M54.9 Dorsalgia, unspecified (principal); G40.409 Other generalized epilepsy and epileptic syndromes, not intractable, without status epilepticus; F32.9 Major depressive disorder, single episode, unspecified; Z79.899 Other long term (current) drug therapy
CPT/HCPCS: 99283

== ENCOUNTER → 2017-08-13 | Outpatient (CLI) | payer MEDICARE, MEDICAID | END | disposition home or self-care (01) | LOC: LABWHC1 11:12 | PROVIDERS: ATTEND Psychiatry & Neurology Psychiatry | DX: Z51.81 Encounter for therapeutic drug level monitoring (principal); Z79.899 Other long term (current) drug therapy | CPT/HCPCS: 36415; 80178 ==

== ENCOUNTER 2017-08-24 12:09 | Emergency (ER) | payer MEDICARE, OTHER ==
[2017-08-24 12:15] VITALS: BP 121/71; PULSE 66; RESP 18; TEMP 97.1
--- NOTE | 2017-08-24 12:49 | XR ---
EXAMINATION TYPE: XR thoracic spine complete DATE OF EXAM: 08/24/2017 CLINICAL HISTORY: pain TECHNIQUE: Frontal, lateral, and swimmer's view of thoracic spine are obtained. COMPARISON: None. FINDINGS: Thoracic spine show satisfactory alignment without evidence of acute fracture or dislocatio n. Vertebral body heights are preserved. Disc spaces are well preserved. Visualized ribs are unrem arkable. IMPRESSION: No acute fracture or dislocation is seen in the thoracic spine. ICD 10 NO FRACTURE, INIT IAL EVALUATION
--- NOTE | 2017-08-24 13:10 | ED ---
Back Pain HPI - General Chief Complaint: Back Pain/Injury Stated Complaint: Back Pain, Hurts to Breathe Time Seen by Provider: 08/24/17 12:18 Source: patient, RN notes reviewed Limitations: no limitations - History of Present Illness Initial Comments: This is a 27-year-old male who presents to the emergency department with chief complaint of back pain. 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 Last night while working he noticed a pain in the thoracic region of his back that progressively got worse throughout the night. Patient states that he took Motrin but with minimal relief. He states that pain is made worse with position, increasing in intensity with bending over , twisting and taking in deep breaths. He states he has pain with going from a sitting to standing position. He denies any shortness of breath or chest pain. Patient denies any specific injury or trauma. Patient denies saddle paresthesias or loss of bladder or bowel function. He does state that he has a history of degenerative disc but is unsure of the location. Denies fever, chills , abdominal pain, nausea or vomiting, constipation or diarrhea, dysuria or hematuria, numbness or tingling, headache or vision changes. - Related Data Home Medications Medication Instructions Recorded Confirmed Lidocaine 4% Cream [Lmx 4] 1 applic TOPICAL TID 07/23/17 07/23/17 Loratadine [Claritin] 10 mg PO DAILY 07/23/17 07/23/17 Previous Rx's Medication Instructions Recorded Brexpiprazole [Rexulti] 2 mg PO HS #14 tablet 07/24/17 Levothyroxine Sodium [Synthroid] 100 mcg PO AC-BRKFST #14 tab 07/24/17 [place] Carbonate 900 mg PO HS #42 capsule 07/24/17 PHENobarbital 97.2 mg PO HS #14 tablet 07/24/17 Vortioxetine Hydrobromide 20 mg PO DAILY #14 tablet 07/24/17 [Trintellix] carBAMazepine [TEGretol XR] 800 mg PO DIRECTED #56 tab 07/24/17 lamoTRIgine [LaMICtal] 200 mg PO BID #28 tablet 07/24/17 Orphenadrine [Norflex] 100 mg PO Q12H #10 tablet.er 08/24/17 Allergies Allergy/AdvReac Type Severity Reaction Status Date / Time No Known Allergies Allergy Verified 08/24/17 12:15 Review of Systems ROS Statement: Those systems with pertinent positive or pertinent negative responses have been documented in the HPI. ROS Other: All systems not noted in ROS Statement are negative. Past Medical History Past Medical History: Seizure Disorder Additional Past Medical History / Comment(s): has history of epilepsy grand mal seizures since childhood History of Any Multi-Drug Resistant Organisms: None Reported Past Surgical History: Adenoidectomy, Cholecystectomy, Tonsillectomy Additional Past Surgical History / Comment(s): Patient is not sure if he had appendectomy or no Past Anesthesia/Blood Transfusion Reactions: No Reported Reaction Past Psychological History: Depression Smoking Status: Never smoker Past Alcohol Use History: None Reported Past Drug Use History: None Reported - Past Family History Brother(s) Family Medical History: Asthma Mother Family Medical History: Cancer General Exam - General Exam Comments Initial Comments: General: Awake and alert, well-developed; in no apparent distress. Sitting in wheelchair. HEENT: Head atraumatic, normocephalic. Pupils are equal, round and reactive to light. Extraocular movements intact. Oropharynx moist without erythema or exudate. Neck: Supple. Normal ROM. Cardiovascular: Regular rate and rhythm. No murmurs, rubs or gallops. Chest symmetrical. Respiratory: Lungs clear to auscultation bilaterally. No wheezes, rales or rhonchi. Normal respiratory effort with no use of accessory muscles. Musculoskeletal: Patient has normal range of motion of spine, however is unwilling to bend or twist due to pain. There is tenderness on palpation of the left thoracic paraspinal muscles. No vertebral bony point tenderness. Sensation is intact. Pedal pulses are 2+ equal and palpable bilaterally. Skin: [place], warm and dry without rashes or lesions. Neurological: Alert and oriented x3. CN II-XII grossly intact. Speech is fluent and answers are appropriate. No focal neuro deficits. Psychiatric: Normal mood and affect. No overt signs of depression or anxiety noted. Limitations: no limitations Course Vital Signs 08/24/17 12:12 Temperature 97.1 F L Pulse Rate 66 Respiratory 18 Rate Blood Pressure 121/71 O2 Sat by Pulse 99 Oximetry Medical Decision Making - Medical Decision Making This is a 27-year-old male who presents to the emergency department with chief complaint of thoracic back pain. 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 States pain began last night and has progressively gotten worse. He tried to take Motrin but had minimal relief. Pain is positional, increasing in intensity with going from sitting to standing position, bending over or twisting. Patient denies any difficulty breathing or chest pain. Tenderness on palpation of left thoracic paraspinal muscles. X-ray of thoracic spine showed no acute abnormalities. Patient refuses IM injections of steroids and anti-inflammatories while in the emergency department. He states that he has a prescription of ibuprofen 800 at home. He'll be discharged home with an additional prescription for Norflex. Patient is in agreement voices understanding. All questions were answered. - Radiology Data Radiology results: report reviewed Thoracic spine x-ray findings: Thoracic spine show satisfactory alignment without evidence of acute fracture or dislocation. Vertebral body height are preserved. Disc spaces are well preserved. Visualized ribs are unremarkable. Impression: No acute fracture or dislocation is seen in the thoracic spine. Disposition Clinical Impression: Spasm of paraspinal muscle Disposition: HOME SELF-CARE Condition: Good Instructions: Back Pain (ED), Lower Back Exercises (ED) Additional Instructions: Please take medications as prescribed. Please follow up with primary care provider within 1-2 days. Return to emergency department if symptoms should worsen or any concerns arise. Prescriptions: Orphenadrine [Norflex] 100 mg PO Q12H #10 tablet.er Referrals: Ericka Alvarado MD [Primary Care Provider] - 1-2 days Time of Disposition: 13:26
== END 2017-08-24 13:44 | disposition home or self-care (01) ==
LOC: EC 12:09
DX: M62.838 Other muscle spasm (principal); Z79.899 Other long term (current) drug therapy; Z53.20 Procedure and treatment not carried out because of patient's decision for unspecified reasons; X50.9XXA Other and unspecified overexertion or strenuous movements or postures, initial encounter
CPT/HCPCS: 72072; 99283

== ENCOUNTER 2017-11-02 17:29 | Inpatient (IN) | payer MEDICARE, MEDICAID ==
[2017-11-02 18:28] LABS: Amphetamine Screen,Urine Not Detected (NotDetected); Barbiturate Screen,Urine Detected (NotDetected); Benzodiazepines Screen,Urine Not Detected (NotDetected); Cocaine Screen,Urine Not Detected (NotDetected); Methadone Screen, Urine Not Detected (NotDetected); Opiate Screen,Urine Not Detected (NotDetected); Oxycodone Screen, Urine Not Detected (NotDetected); Phencyclidine Screen,Urine Not Detected (NotDetected); Tricyclic Antidepressant,Urine Not Detected (NotDetected); Urn Cannabinoid Scrn Not Detected (NotDetected)
--- NOTE | 2017-11-02 19:03 | ED ---
Psych HPI - General Chief Complaint: Psychiatric Symptoms Stated Complaint: suicidal Time Seen by Provider: 11/02/17 17:42 Source: patient, police Mode of arrival: ambulatory - History of Present Illness Initial Comments: 27-year-old male patient presents to the emergency department today for evaluation of suicidal ideation. Patient states that for the last couple of weeks he has been having thoughts of killing himself. He states that he has an 8 inch knife at home that he is planning to use to kill himself. He states he did call the police because he felt like he was close to completing the act. He states that he has been depressed and anxious lately. He states he is sleeping at night. He does report taking his psychiatric medications as directed. He denies any visual or auditory hallucinations. He states he has attempted to commit suicide 22 times in the past. He states he has been previously inpatient for mental health services. He states he is feeling well physically. Patient denies any recent rash, fever, chills, shortness breath, chest pain, abdominal pain, nausea, vomiting, diarrhea, constipation, back pain , numbness, tingling, dizziness, weakness, hematuria, dysuria, urinary urgency, urinary frequency, headache, visual changes, or any other complaints. - Related Data Home Medications Medication Instructions Recorded Confirmed Diazepam [Valium] 5 mg PO DAILY PRN 11/02/17 11/02/17 Ibuprofen [Motrin] 800 mg PO TID PRN 11/02/17 11/02/17 Levothyroxine Sodium [Synthroid] 100 mcg PO DAILY 11/02/17 11/02/17 carBAMazepine [TEGretol XR] 200 mg PO DAILY 11/02/17 11/02/17 carBAMazepine [TEGretol XR] 600 mg PO HS 11/02/17 11/02/17 Previous Rx's Medication Instructions Recorded Brexpiprazole [Rexulti] 2 mg PO HS #14 tablet 07/24/17 [place] Carbonate 900 mg PO HS #42 capsule 07/24/17 PHENobarbital 97.2 mg PO HS #14 tablet 07/24/17 Vortioxetine Hydrobromide 20 mg PO DAILY #14 tablet 07/24/17 [Trintellix] lamoTRIgine [LaMICtal] 200 mg PO BID #28 tablet 07/24/17 Allergies Allergy/AdvReac Type Severity Reaction Status Date / Time No Known Allergies Allergy Verified 11/02/17 19:39 Review of Systems ROS Statement: Those systems with pertinent positive or pertinent negative responses have been documented in the HPI. ROS Other: All systems not noted in ROS Statement are negative. Past Medical History Past Medical History: Seizure Disorder Additional Past Medical History / Comment(s): has history of epilepsy grand mal seizures since childhood History of Any Multi-Drug Resistant Organisms: None Reported Past Surgical History: Adenoidectomy, Cholecystectomy, Tonsillectomy Additional Past Surgical History / Comment(s): Patient is not sure if he had appendectomy or no Past Anesthesia/Blood Transfusion Reactions: No Reported Reaction Past Psychological History: Depression Smoking Status: Never smoker Past Alcohol Use History: Occasional Past Drug Use History: None Reported - Past Family History Brother(s) Family Medical History: Asthma Mother Family Medical History: Cancer General Exam Limitations: no limitations General appearance: alert, in no apparent distress, other (This is a well- developed, well-nourished adult male patient in no acute distress. Vital signs upon presentation are temperature 98.5F, pulse 79, respirations 16, blood pressure 118/75, pulse ox 99% on room air.) Eye exam: Present: normal appearance, PERRL, EOMI. Absent: scleral icterus, conjunctival injection, periorbital swelling ENT exam: Present: normal exam, normal oropharynx, mucous membranes moist Respiratory exam: Present: normal lung sounds bilaterally. Absent: respiratory distress, wheezes, rales, rhonchi, stridor Cardiovascular Exam: Present: regular rate, normal rhythm, normal heart sounds. Absent: systolic murmur, diastolic murmur, rubs, gallop, clicks GI/Abdominal exam: Present: soft, normal bowel sounds. Absent: distended, tenderness, guarding, rebound, rigid Neurological exam: Present: alert, oriented X3, CN II-XII intact Psychiatric exam: Present: normal affect, normal mood, suicidal ideation. Absent: homicidal ideation Skin exam: Present: warm, dry, intact, normal color. Absent: rash Course Vital Signs 11/02/17 17:36 Temperature 98.5 F Pulse Rate 79 Respiratory 16 Rate Blood Pressure 118/75 O2 Sat by Pulse 99 Oximetry Medical Decision Making - Medical Decision Making 27-year-old male patient presented to the emergency department today for suicidal ideation. Physical exam is unremarkable. Patient was evaluated by emergency psych services, it is felt at this time he will benefit from inpatient admission. Clinical certificate has been documented. We will transfer to the psych unit. - Lab Data Lab Results 11/02/17 Range/Units 17:45 Urine Opiates Screen Not Detected (NotDetected) Ur Oxycodone Screen Not Detected (NotDetected) Urine Methadone Screen Not Detected (NotDetected) Ur Propoxyphene Screen Not Detected (NotDetected) Ur Barbiturates Screen Detected H (NotDetected) U Tricyclic Antidepress Not Detected (NotDetected) Ur Phencyclidine Scrn Not Detected (NotDetected) Ur Amphetamines Screen Not Detected (NotDetected) U Methamphetamines Scrn Not Detected (NotDetected) U Benzodiazepines Scrn Not Detected (NotDetected) Urine Cocaine Screen Not Detected (NotDetected) U Marijuana (THC) Screen Not Detected (NotDetected) Disposition Clinical Impression: Suicidal ideation Disposition: TRANSFER TO PSYCH HOSP/UNIT - Out of Hospital Transfer - Req. Specs Out of Hospital Transfer - Requested Specifics: Psychiatric Non-ICU ([facility] Mental [facility] Unit)
[2017-11-02] MEDS ORDERED: MAG HYDROX/AL HYDROX/SIMETH 30 ML CUP PO PRN (20:19)
[2017-11-02] MEDS ORDERED: MAGNESIUM HYDROXIDE 2,400 MG/10 ML CUP PO PRN (20:19)
[2017-11-02] MEDS ORDERED: ACETAMINOPHEN TAB 325 MG TAB PO PRN (20:19)
[2017-11-02] MEDS ORDERED: DIAZEPAM 5 MG TAB PO PRN (20:24)
[2017-11-02] MEDS ORDERED: IBUPROFEN 800 MG TAB PO PRN (20:29)
[2017-11-02] MEDS: lamoTRIgine 100 MG TAB PO SCH (21:23)
[2017-11-02] MEDS: LITHIUM CARBONATE 300 MG CAP PO SCH (21:24)
[2017-11-02] MEDS: PHENobarbital 32.4 MG TAB PO SCH (21:24)
[2017-11-03] MEDS: LEVOTHYROXINE 100 MCG TAB PO SCH (06:17)
[2017-11-03 07:04] VITALS: RESP 16
--- NOTE | 2017-11-03 07:38 | CONS ---
CONSULTATION DATE OF SERVICE: 11/02/2017 REASON FOR CONSULTATION: Advice regarding seizure disorder and other medical issues requested by psychiatric. HISTORY: This 27-year-old gentleman with a past history of seizure disorder, history of depression, history of grand mal seizure, history of adenoidectomy, cholecystectomy, history of depression, history of significant EtOH in the past, admitted for psychiatric evaluation. The patient apparently was taking up to 2 bottles of [place], currently the patient reports only occasional usage. Apparently he is on probation regarding alcohol. Otherwise the patient admitted for suicidal ideation. There is no history of fever, rigors. No headache, loss of consciousness, seizures at this time. PAST MEDICAL HISTORY: Past medical history of seizure disorder and grand-mal seizure, depression, history of tonsillectomy, cholecystectomy. The patient is followed by Dr. Alvarado in the outpatient setting. MEDICATIONS ARE: 1. Lamictal 200 mg p.o. b.i.d. 2. Tegretol-XR 600 mg q.h.s. and 200 mg p.o. daily. 3. Trentallix 20 mg p.o. daily. 4. Phenobarb 97.2 mg q.h.s. 5. [place] carbonate 900 mg p.o. q.h.s. 6. Synthroid 100 mcg p.o. daily. 7. Motrin 800 mg t.i.d. p.r.n. 8. Valium 5 mg p.o. daily p.r.n. 9. Rexulti 2 mg p.o. q.h.s. ALLERGIES: None. FAMILY HISTORY: Of asthma in the family. SOCIAL HISTORY: No history of smoking. No history of alcohol intake. REVIEW OF SYSTEMS: ENT: No diminished hearing or diminished vision. CARDIOVASCULAR: No angina. Respiratory: No cough or hemoptysis. GI no nausea or vomiting. no dysuria. Nervous System: As mentioned earlier. Allergy/Immunology: No asthma or hayfever. Musculoskeletal as mentioned earlier. Dermatology: Negative. Endocrine: Hypothyroidism. Hematology/Oncology: No history of anemia. Constitutional: As mentioned earlier. Rheumatology: Negative. Psychiatric: As mentioned earlier. PHYSICAL EXAMINATION: Alert oriented x three. Pulse is 79, blood pressure 118/70, respiration 16, temperature 98.5, pulse ox 99% on room air. HEENT: Conjunctivae normal. Oral mucosa moist. Neck is no jugular venous distention. No carotid bruit. No lymph node enlargement. Otherwise oral cavity multiple carious teeth present. Neck is no jugular venous distention. No carotid bruit. No lymph node enlargement. Cardiovascular S1 S2. No S3, no S4. Respiratory: Breath sounds diminished in the bases. No rhonchi and no crackles. ABDOMEN: Soft, nontender. No mass palpable. LEGS: No edema and no swelling. NERVOUS SYSTEM: Higher functions as mentioned. Cranial nerves 2nd thru 12 grossly intact. Eye movements are full in all directions. No facial asymmetry noted. Tongue protrudes in midline. Otherwise, turning of the neck is also normal. Otherwise, motor system moves all 4 limbs and the power is equal, symmetrical. No sensory abnormalities. The gait is normal. Lymphatics: No lymph nodes palpable in the neck, axillae or groin. Skin: No ulcer, rash or bleeding. JOINTS: No active arthropathy. LABS: At this time, drug screen positive for barbiturates. ASSESSMENT: 1. Depression with suicidal ideations. 2. History of seizure disorder and grand mal seizures. 3. Adenoidectomy. 4. History of cholecystectomy. 5. History of depression. 6. Previous history EtOH. RECOMMENDATIONS AND DISCUSSION: In this 27-year-old gentleman who presented with multiple complex medical issues, we will monitor the patient closely, continue the current medications, continue symptomatic treatment. At this time I recommend resume the home medications and also especially the antiseizure medication including Lamictal. Other than that, I would also recommend to evaluate for the primary labs and I would be happy to review this abnormality. Otherwise, seizure precautions and also DT precaution may also be observed. Ativan is noted on a p.r.n. basis even though the patient denies any significant alcohol intake recently because of his probation status. Please recommend the patient to follow up with Dr. Alvarado after discharge and we will follow the patient closely with you while the patient is in the hospital. Thank you Dr. Shane for letting us participate in the care of this patient. MMODL / IJN: [id number] /
[2017-11-03 07:46] LABS: Basophils # (A) 0.1 k/uL (0-0.2); Basophils % (A) 1 %; Eosinophils # (A) 0.7 k/uL (0-0.7); Eosinophils % (A) 8 %; HCT 44.1 % (39.0-53.0); HGB 14.4 gm/dL (13.0-17.5); Lymphocytes # (A) 2.7 k/uL (1.0-4.8); Lymphocytes % (A) 29 %; MCHC 32.7 g/dL (31.0-37.0); MCV 91.8 fL (80.0-100.0); Mean Platelet Volume 6.3; Monocytes # (A) 0.5 k/uL (0-1.0); Monocytes % (A) 5 %; Neutrophils # (A) 5.1 k/uL (1.3-7.7); Neutrophils % (A) 55 %; Platelet Count 249 k/uL (150-450); RBC 4.81 m/uL (4.30-5.90); RDW 12.7 % (11.5-15.5); WBC 9.2 k/uL (3.8-10.6)
[2017-11-03 08:03] LABS: ALT 18 U/L (21-72); AST 16 U/L (17-59); Albumin 4.7 g/dL (3.5-5.0); Alkaline Phosphatase 136 U/L (38-126); Anion Gap 12 mmol/L; Blood Urea Nitrogen 15 mg/dL (9-20); Calcium 9.9 mg/dL (8.4-10.2); Carbon Dioxide 26 mmol/L (22-30); Chloride 104 mmol/L (98-107); Cholesterol 209 mg/dL (<200); Glucose 96 mg/dL (74-99); HDL Cholesterol 48 mg/dL (40-60); LDL Cholesterol,Calculated 141 mg/dL (0-99); Potassium 4.2 mmol/L (3.5-5.1); Sodium 142 mmol/L (137-145); Total Bilirubin 0.7 mg/dL (0.2-1.3); Total Protein 8.2 g/dL (6.3-8.2); Triglycerides 101 mg/dL (<150)
[2017-11-03] MEDS: lamoTRIgine 100 MG TAB PO SCH ×2 (08:29→21:31)
[2017-11-03] MEDS ORDERED: Vortioxetine Hydrobromide [Trintellix] 20 MG PO SCH (09:00)
[2017-11-03 10:04] LABS: Carbamazepine (Tegretol) 7.3 ug/mL; Lithium 0.9 mmol/L
--- NOTE | 2017-11-03 11:30 | P.HP ---
Psychiatric H&P - . History & Physical: Allergies Allergy/AdvReac Type Severity Reaction Status Date / Time No Known Allergies Allergy Verified 11/02/17 19:39 Vital Signs Temp 97.5 F L 11/03/17 07:04 Pulse 81 11/03/17 07:04 Resp 16 11/03/17 07:04 BP 128/73 11/03/17 07:04 Pulse Ox 96 11/02/17 19:55 Intake & Output 11/02/17 11/03/17 11/03/17 18:59 06:59 18:59 Weight 56.699 kg Laboratory Last Values WBC 9.2 k/uL (3.8-10.6) 11/03/17 07:27 RBC 4.81 m/uL (4.30-5.90) 11/03/17 07:27 Hgb 14.4 gm/dL (13.0-17.5) 11/03/17 07:27 Hct 44.1 % (39.0-53.0) 11/03/17 07:27 MCV 91.8 fL (80.0-100.0) 11/03/17 07:27 MCH 30.0 pg (25.0-35.0) 11/03/17 07:27 MCHC 32.7 g/dL (31.0-37.0) 11/03/17 07:27 RDW 12.7 % (11.5-15.5) 11/03/17 07:27 Plt Count 249 k/uL (150-450) 11/03/17 07:27 Neutrophils % 55 % 11/03/17 07:27 Lymphocytes % 29 % 11/03/17 07:27 Monocytes % 5 % 11/03/17 07:27 Eosinophils % 8 % 11/03/17 07:27 Basophils % 1 % 11/03/17 07:27 Neutrophils # 5.1 k/uL (1.3-7.7) 11/03/17 07:27 Lymphocytes # 2.7 k/uL (1.0-4.8) 11/03/17 07:27 Monocytes # 0.5 k/uL (0-1.0) 11/03/17 07:27 Eosinophils # 0.7 k/uL (0-0.7) 11/03/17 07:27 Basophils # 0.1 k/uL (0-0.2) 11/03/17 07:27 Sodium 142 mmol/L (137-145) 11/03/17 07:27 Potassium 4.2 mmol/L (3.5-5.1) 11/03/17 07:27 Chloride 104 mmol/L (98-107) 11/03/17 07:27 Carbon Dioxide 26 mmol/L (22-30) 11/03/17 07:27 Anion Gap 12 mmol/L 11/03/17 07:27 BUN 15 mg/dL (9-20) 11/03/17 07:27 Creatinine 1.01 mg/dL (0.66-1.25) 11/03/17 07:27 Est GFR (MDRD) Af Amer >60 (>60 ml/min/1.73 sqM) 11/03/17 07:27 Est GFR (MDRD) Non-Af >60 (>60 ml/min/1.73 sqM) 11/03/17 07:27 Glucose 96 mg/dL (74-99) 11/03/17 07:27 Calcium 9.9 mg/dL (8.4-10.2) 11/03/17 07:27 Total Bilirubin 0.7 mg/dL (0.2-1.3) 11/03/17 07:27 AST 16 U/L (17-59) L 11/03/17 07:27 ALT 18 U/L (21-72) L 11/03/17 07:27 Alkaline Phosphatase 136 U/L (38-126) H 11/03/17 07:27 Total Protein 8.2 g/dL (6.3-8.2) 11/03/17 07:27 Albumin 4.7 g/dL (3.5-5.0) 11/03/17 07:27 Triglycerides 101 mg/dL (<150) 11/03/17 07:27 Cholesterol 209 mg/dL (<200) H 11/03/17 07:27 LDL Cholesterol, Calc 141 mg/dL (0-99) H 11/03/17 07:27 HDL Cholesterol 48 mg/dL (40-60) 11/03/17 07:27 TSH 3.840 mIU/L (0.465-4.680) 11/03/17 07:27 Urine Opiates Screen Not Detected (NotDetected) 02/04/18 17:45 Ur Oxycodone Screen Not Detected (NotDetected) 11/02/17 17:45 Urine Methadone Screen Not Detected (NotDetected) 11/02/17 17:45 Ur Propoxyphene Screen Not Detected (NotDetected) 11/02/17 17:45 Ur Barbiturates Screen Detected (NotDetected) H 11/02/17 17:45 Carbamazepine 7.3 ug/mL 11/03/17 07:27 U Tricyclic Antidepress Not Detected (NotDetected) 11/02/17 17:45 Ur Phencyclidine Scrn Not Detected (NotDetected) 11/02/17 17:45 Ur Amphetamines Screen Not Detected (NotDetected) 11/02/17 17:45 U Methamphetamines Scrn Not Detected (NotDetected) 11/02/17 17:45 U Benzodiazepines Scrn Not Detected (NotDetected) 11/02/17 17:45 Edmund 0.9 mmol/L 11/03/17 07:27 Urine Cocaine Screen Not Detected (NotDetected) 11/02/17 17:45 U Marijuana (THC) Screen Not Detected (NotDetected) 11/02/17 17:45 11/03/17 11:17 IDENTIFYING DATA: This patient is a 27-year-old male who is admitted to the mental health unit through the emergency room on a petition completed by a police crime scene technician indicating the patient was having suicidal ideation. HPI: The patient presents with a petition stating "Stephan told me he wanted to kill himself with a knife but his would not give it to him". The patient is well known to the psychiatric service as he has had numerous admissions. He states that he feels overwhelmed that he cannot support his son financially. The patient has not been able to maintain employment. 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 He continues to indicate that he argues with his frequently and does not know if he should stay to her. They have a 2-year-old son together at this time. They frequently fight about money. He reports he has difficulty finding work because of a recent legal charge for malicious destruction of property. He is currently on probation. The patient does have a history of depression in the context of intellectual disability and seizure disorder. The patient is endorsing no homicidal ideation. He specifically states he has no thoughts of wanting to hurt his or son. He does feel safe here in the hospital. He is indicating no symptoms of psychosis. I have not been aware of him having a hypomanic or manic episode in the past but with other hospitalizations he was diagnosed with bipolar disorder. PAST PSYCHIATRIC HISTORY: The patient has had numerous psychiatric admissions ever since he age of 18. He was most recently here in April. [facility] with a therapist and a psychiatrist through telemedicine. He has been prescribed Trintellix 20 mg daily Rexulti lithium. He has been on Celexa and Abilify in the past. He has had suicidal ideation numerous times I am not aware of any actual attempts. PMH: Epilepsy he is prescribed phenobarbital, Tegretol, Lamictal he reports his most recent seizure was 1.5 years ago ALLERGIES: NO KNOWN DRUG ALLERGIES MEDICATIONS: Refer to [facility] CHEMICAL DEPENDENCY HISTORY: The patient reports using alcohol every 2 days having 1-2 drinks, he reports no use of marijuana or other illicit drugs. He has never been placed in residential treatment for chemical dependency reasons. FAMILY PSYCHIATRIC HISTORY: None reported no suicides in the family FAMILY CHEMICAL DEPENDENCY HISTORY: None Reported SOCIAL HISTORY: The patient is 27 years old he's been for approximate 5 years. He has a contentious relationship with his . They have a 2-year- old son together. The patient has 1 brother and 2 sisters and 2 stepsisters. He currently has a guardian. He completed high school and did have a history of special education due to his intellectual disability. He struggles with maintaining employment. He is on a social security disability income as well as his . His guardian is his payee. Abuse history none reported, legal history he is on probation until 2019 due to a charge of malicious destruction of property and a prior charge of domestic violence. MENTAL STATUS EXAM: The patient is alert he has a disheveled appearance hygiene is impaired. He is dressed in his own clothing. He has poor dentition and since I've seen him last more fracturing of his teeth. He does wear his eyeglasses. He reports a depressed hopeless mood with suicidal ideation. He is tearful throughout the session. He reports suicidal ideation with no homicidal ideation intent or plan. He is endorsing no auditory or visual hallucinations he is endorsing no specific delusions. Thought process is linear he demonstrates no tangential thinking loose associations or flight of ideas. He does not appear hypomanic or manic. He is oriented to person place and date. He is able to name the days of the week backwards. STRENGTHS/WEAKNESSES: Strengths: Guardianship, disability income, he has a residence to return to weaknesses: Ongoing discord with spouse I need she'll constraints due to inability to maintain employment INTELLECTUAL FUNCTIONING: Intellectual disability IMPRESSIONS: [] 1. Major depressive disorder recurrent severe without psychosis rule out bipolar depression, rule out alcohol use disorder, intellectual disability 2. Borderline personality disorder traits 3. Epilepsy PLAN: The patient has been admitted to the mental health unit on a petition and clinical certificate. He is willing to sign in voluntarily. We will review past medication trials. The Trintellix and Rexulti will be discontinued. He has already stopped the Trintellix several days ago. We will maintain the lithium 900 mg at bedtime. We will continue his medicines for epilepsy including Lamictal Tegretol and phenobarbital. He will be seen by internal medicine for routine history and physical exam. Social work will meet with the patient to complete a psychosocial assessment. We will monitor him for safety and encourage his participation in the milieu. We will monitor for any signs of alcohol withdrawal. We will discuss appropriate measures for addressing alcohol use. We will likely initiate a different antidepressant medication for him after reviewing past trials and available options.
[2017-11-03] MEDS: LORazepam 1 MG TAB PO PRN (12:01)
[2017-11-03 13:28] LABS: Hemoglobin A1C 4.6 % (4.0-6.0)
[2017-11-03] MEDS: LITHIUM CARBONATE 300 MG CAP PO SCH (21:31)
[2017-11-03] MEDS: PHENobarbital 32.4 MG TAB PO SCH (22:04)
[2017-11-04] MEDS: LEVOTHYROXINE 100 MCG TAB PO SCH (07:01)
[2017-11-04] MEDS: lamoTRIgine 100 MG TAB PO SCH ×2 (08:21→21:16)
[2017-11-04] MEDS: LORazepam 1 MG TAB PO PRN (09:33)
--- NOTE | 2017-11-04 09:51 | P.PN ---
Progress Note - Text Interval history: The patient is found at the front facer he follows me to an interview room. He reports still having some suicidal ideation but feels it is not as intense as yesterday. He indicates he slept well last night he did use Ativan to calm his agitation. Appetite stable. He has not yet showered while on the mental health unit. He did have a brief phone conversation with his yesterday. We reviewed medication options. He indicated feeling as though the Trintellix and Rexulti were not providing benefit. We discussed past medication trials and we decided to initiate Zoloft for depressive and anxiety symptoms. Mental status exam: The patient is alert he has a disheveled appearance he has a foul body odor. He chronically has poor dentition with several fractures of his teeth. He endorses a depressed mood he still has some suicidal ideation but indicates it's less severe than yesterday. He reports no homicidal ideation. He is endorsing no auditory or visual hallucinations or specific delusions. He demonstrates no verbal or physical aggressiveness. Insight and judgment are limited. He does have a chronic impediment of speech and a history of intellectual disability. Plan: The patient will be started on Zoloft 50 mg daily we may titrate that further while here. He will continue on his lithium lithium level was reviewed. Vital signs reviewed. He is encouraged to continue participating in the milieu and we will monitor him for safety. He is encouraged to attend his activities of daily living and shower today.
[2017-11-04] MEDS: SERTRALINE 50 MG TAB PO SCH (10:24)
[2017-11-04] MEDS: PHENobarbital 32.4 MG TAB PO SCH (21:15)
[2017-11-04] MEDS: LITHIUM CARBONATE 300 MG CAP PO SCH (21:16)
[2017-11-05] MEDS: LEVOTHYROXINE 100 MCG TAB PO SCH (04:04)
[2017-11-05] MEDS: LORazepam 1 MG TAB PO PRN (05:10)
[2017-11-05] MEDS: SERTRALINE 50 MG TAB PO SCH (08:02)
[2017-11-05] MEDS: lamoTRIgine 100 MG TAB PO SCH ×2 (08:03→20:37)
--- NOTE | 2017-11-05 09:30 | P.PN ---
Progress Note - Text Interval history: The patient is found in the hallway he follows me to an interview room. He reports last evening he became frustrated after a phone call and hit the table and hit the wall with his hand. He is describing no pain in his hand. He apparently became upset after speaking with his on the phone as they were engaged in a verbal altercation. We discussed coping skills he can utilize here in the mental health unit. He reports he attended some groups yesterday but reports no benefit from them. He is eating and he did shower. Mental status exam: The patient is alert but tired appearing. He has a disheveled appearance but hygiene is improved he no longer has a foul odor. He is dressed in his own clothing. He describes a frustrated mood based on his phone conversation with his last evening. He reports that he has no acute suicidal ideation. He is endorsing no homicidal ideation he is endorsing no auditory or visual hallucinations or specific delusions. Insight and judgment are limited. He is oriented to person place and date. He demonstrates no verbal or physical aggressiveness during the session. Affect is mostly constricted. Plan: The patient will continue on his current medication we will consider titrating the Zoloft in the next 1-2 days. Again refocused on use of appropriate coping skills during times of stress. It was suggested that he refrain from calling his unless necessary as they typically do get involved in verbal altercations. He is encouraged to attend all groups. I will signs reviewed. He requires continued psychiatric hospitalization at this time I anticipate he'll be appropriate for discharge charge towards the end of the week.
[2017-11-05] MEDS: PHENobarbital 32.4 MG TAB PO SCH (20:37)
[2017-11-05] MEDS: LITHIUM CARBONATE 300 MG CAP PO SCH (20:37)
[2017-11-06] MEDS: LEVOTHYROXINE 100 MCG TAB PO SCH (07:21)
[2017-11-06 08:16] VITALS: BP 114/59; PULSE 75; TEMP 98.6
[2017-11-06] MEDS: lamoTRIgine 100 MG TAB PO SCH (08:23)
[2017-11-06] MEDS: SERTRALINE 50 MG TAB PO SCH (08:24)
--- NOTE | 2017-11-06 09:21 | P.DS ---
Providers Date of admission: 11/02/17 19:35 Expected date of discharge: 11/06/17 Attending physician: Kiel Shane Consults: 11/02/17 20:19 Consult Physician Routine Consulting Provider: Juliana Bennett Consult Reason/Comments: medical management Do you want consulting provider notified?: Already Contacted Primary care physician: Ericka Alvarado - Discharge Diagnosis(es) (1) Major depressive disorder, recurrent severe without psychotic features Current Visit: Yes Status: Acute Priority: High (2) Intellectual disability Current Visit: Yes Status: Acute Priority: Medium Hospital Course: Brief summary of admission note: This patient is a 27-year-old male who was admitted to the mental health unit through the emergency room on a petition indicating that the patient was having suicidal ideation. The petition indicated Stephan stated he wanted to kill himself with a knife but his would not give him one. The patient is well known to me as I have treated him in the past as an outpatient and on the mental health unit. He carries a diagnosis of depression rule out bipolar disorder with intellectual disability. He has an ongoing seizure disorder as well. There is a question about alcohol use disorder as he has struggled with abstinence in the past. He is known to have cluster B personality disorder traits. He very much struggles with his relationship with his . Stephan has had a history of becoming overwhelmed with environmental stressors which will lead him to have suicidal thoughts and then subsequently be admitted to the hospital. For full details please refer to my psychiatric evaluation dictated 11/03/2017. Summary of hospital course: The patient was admitted to the mental health unit voluntarily. We reviewed his presenting symptoms and medication options. The initially indicated that the Trintellix had not been providing sufficient relief and this led him to discontinuing it practically in the recent past. He reported complying with a wreck salty as he was taking his bedtime medications but was not aware of any benefit from that medication. We discussed medication options. He was particular concern with anxiety symptoms that seem to be ongoing. We decided to trial Zoloft as he had not yet been on that medication. The patient was continued on lithium his lithium level was within normal range. Tegretol level was in the therapeutic range as well. The patient indicates today that he no longer has any suicidal ideation and he feels he can manage his behavior. He wishes to continue working with his outpatient therapist and psychiatrist. He informs me this morning as were discussing discharge plans that he will discontinue the Zoloft as directed by his outpatient therapist and he will resume Trintellix. We discussed the potential benefits of using Zoloft however if the Trintellix was ineffective due to his lack of compliance I have no objection. Historically admissions to the mental health unit give Stephan time away from his stressors at home and it does seem that the crisis has resolved. Mental status exam: The patient is alert he presents with adequate hygiene improved grooming eye contact is appropriate. He states his mood is "good". He more spontaneously engages in casual conversation and has a euthymic affect which includes appropriate smiling. He expresses a desire to spend time with his son as he misses him. He is reporting no suicidal or homicidal ideation intent or plan. He is reporting no auditory or visual hallucinations or any specific delusions. There is no observable evidence of psychosis. He demonstrates no tangential thinking loose associations or flight of ideas he does not appear hypomanic or manic Speech is spontaneous, he does have a chronic impediment of speech which is unchanged. Insight and judgment improved. He does have an ongoing intellectual disability. He demonstrates no verbal or physical aggressiveness, he demonstrates no abnormal involuntary movements. Impressions 1. Major depressive disorder recurrent severe without psychosis rule out bipolar depression, rule out alcohol use disorder, intellectual disability 2. Borderline personality disorder traits 3. Epilepsy Plan: The patient will be discharged mental health unit to return home. Social work will arrange his [facility]. The patient's plans on resuming Trintellix 20 mg daily he will continue on lithium 900 mg at bedtime. I agree that the lithium would be best given 300 mg 3 times daily however the patient is very unlikely to comply with that. When he meets with his outpatient psychiatrist they can decide if they are going to resume the Rexulti. He will continue on his medications for seizure control including Lamictal Tegretol and phenobarbital. He is instructed to abstain from any use of alcohol or any illicit drugs. He does not feel that he requires inpatient chemical dependency treatment for his alcohol use. At this time he does not appear to be at imminent safety risk is appropriate for transition back to outpatient care he is instructed to return to the hospital of any acute safety concerns. Again due to his significant personality disorder traits I highly recommend continued use of DBT principles in his outpatient therapy. Patient Condition at Discharge: Stable Plan - Discharge Summary Discharge Rx Participant: No New Discharge Prescriptions: Continue PHENobarbital 97.2 mg PO HS #14 tablet lamoTRIgine [LaMICtal] 200 mg PO BID #28 tablet carBAMazepine [TEGretol XR] 200 mg PO DAILY carBAMazepine [TEGretol XR] 600 mg PO HS Levothyroxine Sodium [Synthroid] 100 mcg PO DAILY [place] Carbonate 900 mg PO HS #45 capsule Vortioxetine Hydrobromide [Trintellix] 20 mg PO DAILY #30 tablet Discontinued Brexpiprazole [Rexulti] 2 mg PO HS #14 tablet Diazepam [Valium] 5 mg PO DAILY PRN PRN Reason: Anxiety Ibuprofen [Motrin] 800 mg PO TID PRN PRN Reason: Pain Discharge Medication List PHENobarbital 97.2 mg PO HS #14 tablet 07/24/17 [Rx] lamoTRIgine [LaMICtal] 200 mg PO BID #28 tablet 07/24/17 [Rx] Levothyroxine Sodium [Synthroid] 100 mcg PO DAILY 11/02/17 [History] carBAMazepine [TEGretol XR] 200 mg PO DAILY 11/02/17 [History] carBAMazepine [TEGretol XR] 600 mg PO HS 11/02/17 [History] [place] Carbonate 900 mg PO HS #45 capsule 11/06/17 [Rx] Vortioxetine Hydrobromide [Trintellix] 20 mg PO DAILY #30 tablet 11/06/17 [Rx] Follow up Appointment(s)/Referral(s): Ericka Alvarado MD [Primary Care Provider] - 1-2 days Patient Instructions/Handouts: Depression (GEN), Suicide Prevention for Adults (GEN) Activity/Diet/Wound Care/Special Instructions: Activity and diet as tolerated. Avoid the use of street drugs and alcohol. Take all medications as prescribed. When you are in need of refills on your medications please contact your medical doctor and/or outpatient psychiatrist to have this done. Please go to scheduled outpatient appointment for aftercare treatment. If symptoms return or become worse call the crisis line at [phone] and/or go to the nearest emergency room for an evaluation.
== END 2017-11-06 11:57 | disposition home or self-care (01) | DRG 885 ==
LOC: EC 17:29 → 3MHU 19:35
PROVIDERS: ADMIT Psychiatry & Neurology Psychiatry; ATTEND Psychiatry & Neurology Psychiatry
DX: F33.2 Major depressive disorder, recurrent severe without psychotic features (principal); G40.409 Other generalized epilepsy and epileptic syndromes, not intractable, without status epilepticus; R45.851 Suicidal ideations; F79 Unspecified intellectual disabilities; F60.3 Borderline personality disorder; F60.89 Other specific personality disorders; W22.01XA Walked into wall, initial encounter; W22.03XA Walked into furniture, initial encounter; Z65.3 Problems related to other legal circumstances; Z82.5 Family history of asthma and other chronic lower respiratory diseases; Z91.19 Patient's noncompliance with other medical treatment and regimen; F10.10 Alcohol abuse, uncomplicated; Z79.1 Long term (current) use of non-steroidal anti-inflammatories (NSAID); Z79.890 Hormone replacement therapy; Z79.899 Other long term (current) drug therapy
CPT/HCPCS: 80053; 80061; 80156; 80178; 80306; 82075; 83036; 84443; 85025; 99285

== ENCOUNTER 2017-11-21 18:19 | Emergency (ER) | payer MEDICARE, OTHER ==
[2017-11-21 18:23] VITALS: RESP 18
[2017-11-21] MEDS ORDERED: SODIUM CHLORIDE 0.9% 1,000 ML IV STA (19:15)
[2017-11-21] MEDS ORDERED: ONDANSETRON 4 MG/2 ML VIAL IVP STA (19:15)
[2017-11-21] MEDS ORDERED: PANTOPRAZOLE 40 MG/10 ML VIAL IVP STA (19:15)
--- NOTE | 2017-11-21 19:17 | ED ---
Nausea/Vomiting/Diarrhea HPI - General Chief complaint: Nausea/Vomiting/Diarrhea Stated complaint: vomiting blood Time Seen by Provider: 11/21/17 18:59 Source: patient Mode of arrival: ambulatory Limitations: no limitations - History of Present Illness Initial comments: 27-year-old male patient presents to the emergency department today for evaluation after having 2 episodes of vomiting. He states that both times his vomit appeared to contain blood. He states it was a mixture between dark brown and bright red. He states that throughout the day today he was not feeling well and has been nauseated. He denies any abdominal pain. He states he has had 2-3 episodes of diarrhea daily for the last 3-4 days. He denies any history of similar symptoms. Denies any fevers or chills. Denies any recent travel. He states he does use ibuprofen occasionally 1600 mg at bedtime for headaches. He states he does this approximately once per week. He reports rare alcohol use. Denies any tobacco use. Patient denies any recent rash, shortness breath, chest pain, constipation, back pain, numbness, tingling, dizziness, weakness, hematuria, dysuria, urinary urgency, urinary frequency, headache, visual changes, or any other complaints. - Related Data Home Medications Medication Instructions Recorded Confirmed Levothyroxine Sodium [Synthroid] 100 mcg PO DAILY 11/02/17 11/21/17 carBAMazepine [TEGretol XR] 200 mg PO DAILY 11/02/17 11/21/17 carBAMazepine [TEGretol XR] 600 mg PO HS 11/02/17 11/21/17 Previous Rx's Medication Instructions Recorded PHENobarbital 97.2 mg PO HS #14 tablet 07/24/17 lamoTRIgine [LaMICtal] 200 mg PO BID #28 tablet 07/24/17 [place] Carbonate 900 mg PO HS #45 capsule 11/06/17 Vortioxetine Hydrobromide 20 mg PO DAILY #30 tablet 11/06/17 [Trintellix] Pantoprazole Sodium [Protonix] 40 mg PO DAILY #45 tablet. 11/21/17 Allergies Allergy/AdvReac Type Severity Reaction Status Date / Time No Known Allergies Allergy Verified 11/21/17 19:48 Review of Systems ROS Statement: Those systems with pertinent positive or pertinent negative responses have been documented in the HPI. ROS Other: All systems not noted in ROS Statement are negative. Past Medical History Past Medical History: Seizure Disorder Additional Past Medical History / Comment(s): has history of epilepsy grand mal seizures since childhood History of Any Multi-Drug Resistant Organisms: None Reported Past Surgical History: Adenoidectomy, Cholecystectomy, Tonsillectomy Additional Past Surgical History / Comment(s): Patient is not sure if he had appendectomy or no Past Anesthesia/Blood Transfusion Reactions: No Reported Reaction Past Psychological History: Depression Smoking Status: Never smoker Past Alcohol Use History: Occasional Past Drug Use History: None Reported - Past Family History Brother(s) Family Medical History: Asthma Mother Family Medical History: Cancer General Exam Limitations: no limitations General appearance: alert, in no apparent distress, other (Physical well- developed, well-nourished adult male patient in no acute distress. Vital signs upon presentation are temperature 97.7F, pulse 71, respirations 18, blood pressure 128/72, pulse ox 100% on room air.) Eye exam: Present: normal appearance, PERRL, EOMI. Absent: scleral icterus, conjunctival injection, periorbital swelling ENT exam: Present: normal exam, normal oropharynx, mucous membranes moist Respiratory exam: Present: normal lung sounds bilaterally. Absent: respiratory distress, wheezes, rales, rhonchi, stridor Cardiovascular Exam: Present: regular rate, normal rhythm, normal heart sounds. Absent: systolic murmur, diastolic murmur, rubs, gallop, clicks GI/Abdominal exam: Present: soft, tenderness (Mild midepigastric tenderness), normal bowel sounds. Absent: distended, guarding, rebound, rigid Neurological exam: Present: alert, oriented X3, CN II-XII intact Psychiatric exam: Present: normal affect, normal mood Skin exam: Present: warm, dry, intact, normal color. Absent: rash Course Vital Signs 11/21/17 11/21/17 18:21 21:00 Temperature 97.7 F 97.1 F L Pulse Rate 71 74 Respiratory 18 18 Rate Blood Pressure 128/72 136/77 O2 Sat by Pulse 100 97 Oximetry Medical Decision Making - Medical Decision Making 27-year-old male patient presents to the emergency department today after having 2 episodes of what he describes as bloody vomit. Physical examination does reveal some mild midepigastric tenderness. Remainder physical exam is unremarkable. Labs reviewed and are unremarkable. We did perform rectal examination, stool is negative for occult blood. Patient had no episodes of vomiting here in the department. We will place him on Protonix 40 mg once per day and have him follow-up with his primary care physician to discuss referral to GI specialist. He is instructed to return here immediately for any new, worsening, or concerning symptoms. He verbalizes understanding and agrees with this plan. - Lab Data Result diagrams: 11/21/17 19:17 11/21/17 19:17 Lab Results 11/21/17 11/21/17 11/21/17 Range/Units 19:17 19:17 19:17 WBC 8.7 (3.8-10.6) k/uL RBC 4.85 (4.30-5.90) m/uL Hgb 14.4 (13.0-17.5) gm/dL Hct 43.9 (39.0-53.0) % MCV 90.4 (80.0-100.0) fL MCH 29.7 (25.0-35.0) pg MCHC 32.9 (31.0-37.0) g/dL RDW 12.6 (11.5-15.5) % Plt Count 265 (150-450) k/uL Neutrophils % 59 % Lymphocytes % 27 % Monocytes % 4 % Eosinophils % 7 % Basophils % 1 % Neutrophils # 5.2 (1.3-7.7) k/uL Lymphocytes # 2.4 (1.0-4.8) k/uL Monocytes # 0.4 (0-1.0) k/uL Eosinophils # 0.6 (0-0.7) k/uL Basophils # 0.1 (0-0.2) k/uL Sodium 142 (137-145) mmol/L Potassium 4.1 (3.5-5.1) mmol/L Chloride 103 (98-107) mmol/L Carbon Dioxide 27 (22-30) mmol/L Anion Gap 12 mmol/L BUN 13 (9-20) mg/dL Creatinine 0.80 (0.66-1.25) mg/dL Est GFR (MDRD) Af Amer >60 (>60 ml/min/1.73 sqM) Est GFR (MDRD) Non-Af >60 (>60 ml/min/1.73 sqM) Glucose 93 (74-99) mg/dL Calcium 9.6 (8.4-10.2) mg/dL Total Bilirubin 0.2 (0.2-1.3) mg/dL AST 17 (17-59) U/L ALT 18 L (21-72) U/L Alkaline Phosphatase 135 H (38-126) U/L Total Protein 8.1 (6.3-8.2) g/dL Albumin 4.7 (3.5-5.0) g/dL Amylase 62 (30-110) U/L Lipase 39 (23-300) U/L Urine Color Yellow Urine Appearance Clear (Clear) Urine pH 6.0 (5.0-8.0) Ur Specific [place] 1.022 (1.001-1.035) Urine Protein Trace H (Negative) Urine Glucose (UA) Negative (Negative) Urine Ketones Negative (Negative) Urine Blood Negative (Negative) Urine Nitrite Negative (Negative) Urine Bilirubin Negative (Negative) Urine Urobilinogen <2.0 (<2.0) mg/dL Ur Leukocyte Esterase Negative (Negative) Stool Occult Blood (Negative) 11/21/17 Range/Units 20:25 WBC (3.8-10.6) k/uL RBC (4.30-5.90) m/uL Hgb (13.0-17.5) gm/dL Hct (39.0-53.0) % MCV (80.0-100.0) fL MCH (25.0-35.0) pg MCHC (31.0-37.0) g/dL RDW (11.5-15.5) % Plt Count (150-450) k/uL Neutrophils % % Lymphocytes % % Monocytes % % Eosinophils % % Basophils % % Neutrophils # (1.3-7.7) k/uL Lymphocytes # (1.0-4.8) k/uL Monocytes # (0-1.0) k/uL Eosinophils # (0-0.7) k/uL Basophils # (0-0.2) k/uL Sodium (137-145) mmol/L Potassium (3.5-5.1) mmol/L Chloride (98-107) mmol/L Carbon Dioxide (22-30) mmol/L Anion Gap mmol/L BUN (9-20) mg/dL Creatinine (0.66-1.25) mg/dL Est GFR (MDRD) Af Amer (>60 ml/min/1.73 sqM) Est GFR (MDRD) Non-Af (>60 ml/min/1.73 sqM) Glucose (74-99) mg/dL Calcium (8.4-10.2) mg/dL Total Bilirubin (0.2-1.3) mg/dL AST (17-59) U/L ALT (21-72) U/L Alkaline Phosphatase (38-126) U/L Total Protein (6.3-8.2) g/dL Albumin (3.5-5.0) g/dL Amylase (30-110) U/L Lipase (23-300) U/L Urine Color Urine Appearance (Clear) Urine pH (5.0-8.0) Ur Specific [place] (1.001-1.035) Urine Protein (Negative) Urine Glucose (UA) (Negative) Urine Ketones (Negative) Urine Blood (Negative) Urine Nitrite (Negative) Urine Bilirubin (Negative) Urine Urobilinogen (<2.0) mg/dL Ur Leukocyte Esterase (Negative) Stool Occult Blood Negative (Negative) Disposition Clinical Impression: Hematemesis Disposition: HOME SELF-CARE Condition: Good Instructions: Acute Nausea and Vomiting (ED), Hematemesis (ED) Additional Instructions: Follow-up with the primary care physician for recheck as soon as possible. Take medications as directed. Return here immediately for any new, worsening, or concerning symptoms. Prescriptions: Pantoprazole Sodium [Protonix] 40 mg PO DAILY #45 tablet.dr Referrals: Ericka Alvarado MD [Primary Care Provider] - 1-2 days Time of Disposition: 21:07
[2017-11-21 19:45] LABS: Appearance,Urine Clear (Clear); Basophils # (A) 0.1 k/uL (0-0.2); Basophils % (A) 1 %; Bilirubin,Urine Negative (Negative); Blood,Urine Negative (Negative); Color,Urine Yellow; Eosinophils # (A) 0.6 k/uL (0-0.7); Eosinophils % (A) 7 %; Glucose,Urine (UA) Negative (Negative); HCT 43.9 % (39.0-53.0); HGB 14.4 gm/dL (13.0-17.5); Ketones,Urine Negative (Negative); Leukocyte Esterase,Urine Negative (Negative); Lymphocytes # (A) 2.4 k/uL (1.0-4.8); Lymphocytes % (A) 27 %; MCH 29.7 pg (25.0-35.0); MCHC 32.9 g/dL (31.0-37.0); MCV 90.4 fL (80.0-100.0); Mean Platelet Volume 6.3; Monocytes # (A) 0.4 k/uL (0-1.0); Monocytes % (A) 4 %; Neutrophils # (A) 5.2 k/uL (1.3-7.7); Neutrophils % (A) 59 %; Platelet Count 265 k/uL (150-450); Protein,Urine Trace (Negative); RBC 4.85 m/uL (4.30-5.90); RDW 12.6 % (11.5-15.5); Specific Gravity,Urine 1.022 (1.001-1.035); Urobilinogen,Urine <2.0 mg/dL (<2.0); WBC 8.7 k/uL (3.8-10.6)
[2017-11-21 19:57] LABS: ALT 18 U/L (21-72); AST 17 U/L (17-59); Albumin 4.7 g/dL (3.5-5.0); Alkaline Phosphatase 135 U/L (38-126); Amylase 62 U/L (30-110); Anion Gap 12 mmol/L; Blood Urea Nitrogen 13 mg/dL (9-20); Calcium 9.6 mg/dL (8.4-10.2); Carbon Dioxide 27 mmol/L (22-30); Chloride 103 mmol/L (98-107); Glucose 93 mg/dL (74-99); Lipase 39 U/L (23-300); Potassium 4.1 mmol/L (3.5-5.1); Sodium 142 mmol/L (137-145); Total Bilirubin 0.2 mg/dL (0.2-1.3); Total Protein 8.1 g/dL (6.3-8.2)
[2017-11-21 21:01] VITALS: BP 136/77; PULSE 74; TEMP 97.1
== END 2017-11-21 21:23 | disposition home or self-care (01) ==
LOC: EC 18:19
DX: K92.0 Hematemesis (principal); R19.7 Diarrhea, unspecified; R51 Headache; G40.409 Other generalized epilepsy and epileptic syndromes, not intractable, without status epilepticus; F32.9 Major depressive disorder, single episode, unspecified; Z79.1 Long term (current) use of non-steroidal anti-inflammatories (NSAID); Z79.899 Other long term (current) drug therapy; Z90.49 Acquired absence of other specified parts of digestive tract
CPT/HCPCS: 36415; 80053; 82150; 83690; 85025; 82272; 81003; 99284; 96374; 96375; J2405; C9113; 87045; 87046; 87324; 87328; 87329; 89055

== ENCOUNTER 2017-12-01 17:52 | Emergency (ER) | payer MEDICARE, OTHER ==
[2017-12-01 18:20] VITALS: BP 126/80; PULSE 92; RESP 18; TEMP 97.9
[2017-12-01] MEDS ORDERED: ORPHENADRINE 30 MG/ML 2 ML VIAL IM STA (18:51)
[2017-12-01] MEDS ORDERED: KETOROLAC 60 MG/2 ML VIAL IM STA (18:51)
--- NOTE | 2017-12-01 18:55 | ED ---
Back Pain HPI - General Chief Complaint: Back Pain/Injury Stated Complaint: back pain Time Seen by Provider: 12/01/17 18:35 Source: patient Limitations: no limitations - History of Present Illness Initial Comments: 27-year-old male patient presents to the emergency department today for complaints of lower mid back pain. Patient states that the pains increased a couple of days ago. He states that he has been having low back pain for a few years. He states that the pain increases with movement. Denies any radiation of the pain down his legs. Denies any numbness or tingling. Denies any loss of bowel or bladder control. Denies any saddle anesthesia. Patient denies any headache, neck pain, chest pain, shortness of breath, dizziness, weakness, abdominal pain, nausea, vomiting, or difficulties with bowel movements or urination. - Related Data Home Medications Medication Instructions Recorded Confirmed Levothyroxine Sodium [Synthroid] 100 mcg PO DAILY 11/02/17 11/21/17 carBAMazepine [TEGretol XR] 200 mg PO DAILY 11/02/17 11/21/17 carBAMazepine [TEGretol XR] 600 mg PO HS 11/02/17 11/21/17 Previous Rx's Medication Instructions Recorded PHENobarbital 97.2 mg PO HS #14 tablet 07/24/17 lamoTRIgine [LaMICtal] 200 mg PO BID #28 tablet 07/24/17 [place] Carbonate 900 mg PO HS #45 capsule 11/06/17 Vortioxetine Hydrobromide 20 mg PO DAILY #30 tablet 11/06/17 [Trintellix] Pantoprazole Sodium [Protonix] 40 mg PO DAILY #45 tablet. 11/21/17 Acetaminophen-Codeine 300-30mg 1 tab PO Q6H PRN #12 tablet 12/01/17 [Tylenol #3] Cyclobenzaprine [Flexeril] 10 mg PO TID #15 tab 12/01/17 Allergies Allergy/AdvReac Type Severity Reaction Status Date / Time No Known Allergies Allergy Verified 11/21/17 19:48 Review of Systems ROS Statement: Those systems with pertinent positive or pertinent negative responses have been documented in the HPI. ROS Other: All systems not noted in ROS Statement are negative. Past Medical History Past Medical History: Seizure Disorder Additional Past Medical History / Comment(s): has history of epilepsy grand mal seizures since childhood History of Any Multi-Drug Resistant Organisms: None Reported Past Surgical History: Adenoidectomy, Cholecystectomy, Tonsillectomy Additional Past Surgical History / Comment(s): Patient is not sure if he had appendectomy or no Past Anesthesia/Blood Transfusion Reactions: No Reported Reaction Past Psychological History: Depression Smoking Status: Never smoker Past Alcohol Use History: Occasional Past Drug Use History: None Reported - Past Family History Brother(s) Family Medical History: Asthma Mother Family Medical History: Cancer General Exam Limitations: no limitations General appearance: alert, in no apparent distress, other (This is a well- developed, well-nourished adult male patient in no acute distress. Vital signs upon presentation are temperature 97.9F, pulse 92, respirations 18, blood pressure 126/80, pulse ox 100% on room air.) Eye exam: Present: normal appearance, PERRL, EOMI. Absent: scleral icterus, conjunctival injection, periorbital swelling ENT exam: Present: normal exam, normal oropharynx, mucous membranes moist Respiratory exam: Present: normal lung sounds bilaterally. Absent: respiratory distress, wheezes, rales, rhonchi, stridor Cardiovascular Exam: Present: regular rate, normal rhythm, normal heart sounds. Absent: systolic murmur, diastolic murmur, rubs, gallop, clicks GI/Abdominal exam: Present: soft, normal bowel sounds. Absent: distended, tenderness, guarding, rebound, rigid Extremities exam: Present: normal inspection, full ROM, normal capillary refill , other (Skin to the lower extremities is pink, warm, and dry. Cap refills less than 3 seconds.). Absent: tenderness, pedal edema, joint swelling, calf tenderness Back exam: Present: normal inspection. Absent: paraspinal tenderness, vertebral tenderness Neurological exam: Present: alert, oriented X3, CN II-XII intact Psychiatric exam: Present: normal affect, normal mood Skin exam: Present: warm, dry, intact, normal color. Absent: rash Course Vital Signs 12/01/17 18:19 Temperature 97.9 F Pulse Rate 92 Respiratory 18 Rate Blood Pressure 126/80 O2 Sat by Pulse 100 Oximetry Medical Decision Making - Medical Decision Making 27-year-old male patient presented to the emergency department today for evaluation of lower back pain. Physical examination is unremarkable. Patient' s neurologically intact. His good strength in his lower extremities. We did administer Norflex and Toradol here in the department. He is instructed to perform lower back stretching and exercises. He is instructed to follow up with his primary care physician for recheck in 1-2 days. He is instructed to return here immediately for any new, worsening, or concerning symptoms. He verbalizes understanding and agrees with this plan. Disposition Clinical Impression: Low back pain Disposition: HOME SELF-CARE Condition: Good Instructions: Chronic Back Pain (ED), Lower Back Exercises (ED), Core Strengthening Exercises (ED) Additional Instructions: Take medication as directed. Apply warm moist heat to the area. Perform low back stretches and exercises. Follow-up with your doctor for recheck in 1-2 days. Return here immediately for any new, worsening, or concerning symptoms. Prescriptions: Acetaminophen-Codeine 300-30mg [Tylenol #3] 1 tab PO Q6H PRN #12 tablet PRN Reason: Pain Cyclobenzaprine [Flexeril] 10 mg PO TID #15 tab Referrals: Ericka Alvarado MD [Primary Care Provider] - 1-2 days Time of Disposition: 18:53
== END 2017-12-01 19:06 | disposition home or self-care (01) ==
LOC: EC 17:52
DX: M54.5 Low back pain (principal); G40.909 Epilepsy, unspecified, not intractable, without status epilepticus; Z79.899 Other long term (current) drug therapy
CPT/HCPCS: 99283; 96372 ×2; J2360; J1885

== ENCOUNTER 2018-03-03 14:44 | Emergency (ER) | payer MEDICARE, OTHER ==
[2018-03-03 14:51] VITALS: BP 115/78; PULSE 88; RESP 18; TEMP 100
--- NOTE | 2018-03-03 15:13 | ED ---
General Adult HPI - General Chief complaint: Psychiatric Symptoms Stated complaint: Sucidial Time Seen by Provider: 03/03/18 15:03 Source: patient, RN notes reviewed Mode of arrival: ambulatory Limitations: no limitations - History of Present Illness Initial comments: Patient is a 27-year-old male presents emergency room today with chief complaint of suicidal ideation. Patient does not that he has had thoughts are on for last week. Denies any specific plan. States he has had suicidal thoughts or plan. Patient does admit to a sore throat. States hurts worse swallows. Denies any bites or symptoms. Patient denies any recent fever, chills , shortness of breath, chest pain, back pain, abdominal pain, nausea or vomiting , numbness or tingling, headaches or visual changes, or any other complaints. - Related Data Home Medications Medication Instructions Recorded Confirmed carBAMazepine [TEGretol XR] 200 mg PO BID 11/02/17 03/03/18 carBAMazepine [TEGretol XR] 400 mg PO HS 11/02/17 03/03/18 Brexpiprazole [Rexulti] 2 mg PO HS 03/03/18 03/03/18 Butalb/Asprin/Caff 50-325-40Mg 1 cap PO BID PRN 03/03/18 03/03/18 [Fiorinal 50-325-40 MG] Ibuprofen [Motrin] 800 mg PO Q8HR PRN 03/03/18 03/03/18 Lacosamide [Vimpat] 100 mg PO BID 03/03/18 03/03/18 Levothyroxine Sodium [Synthroid] 50 mcg PO DAILY 03/03/18 03/03/18 [place] Carbonate 300 mg PO BID@1200,2000 03/03/18 03/03/18 [place] Carbon[place] 600 mg PO QAM 03/03/18 03/03/18 Venlafaxine HCl [Venlafaxine HCl 225 mg PO DAILY 03/03/18 03/03/18 ER] Previous Rx's Medication Instructions Recorded PHENobarbital 97.2 mg PO HS #14 tablet 07/24/17 lamoTRIgine [LaMICtal] 200 mg PO BID #28 tablet 07/24/17 Pantoprazole Sodium [Protonix] 40 mg PO DAILY #45 tablet. 11/21/17 Allergies Allergy/AdvReac Type Severity Reaction Status Date / Time No Known Allergies Allergy Verified 03/03/18 15:36 Review of Systems ROS Statement: Those systems with pertinent positive or pertinent negative responses have been documented in the HPI. ROS Other: All systems not noted in ROS Statement are negative. Past Medical History Past Medical History: Seizure Disorder Additional Past Medical History / Comment(s): has history of epilepsy grand mal seizures since childhood History of Any Multi-Drug Resistant Organisms: None Reported Past Surgical History: Adenoidectomy, Cholecystectomy, Tonsillectomy Additional Past Surgical History / Comment(s): Patient is not sure if he had appendectomy or no Past Anesthesia/Blood Transfusion Reactions: No Reported Reaction Past Psychological History: Depression Smoking Status: Never smoker Past Alcohol Use History: Occasional Past Drug Use History: None Reported - Past Family History Brother(s) Family Medical History: Asthma Mother Family Medical History: Cancer General Exam - General Exam Comments Initial Comments: General: The patient is awake and alert. Eye: Pupils are equal, round and reactive to light, extra-ocular movements are intact. No nystagmus. There is normal conjunctiva bilaterally. No signs of icterus. Ears, nose, mouth and throat: There are moist mucous membranes and no oral lesions. Mild redness to the posterior pharynx. Uvula midline. Patient swallows for symptoms. No exudate. Neck: The neck is supple, there is no tenderness or JVD. Cardiovascular: There is a regular rate and rhythm. No murmur, rub or gallop is appreciated. Respiratory: Lungs are clear to auscultation, respirations are non-labored, breath sounds are equal. No wheezes, stridor, rales, or rhonchi. Musculoskeletal: Normal ROM, no tenderness. Strength 5/5. Sensation intact. Pulses equal bilaterally 2+. Neurological: A&O x 3. CN II-XII intact, There are no obvious motor or sensory deficits. Coordination appears grossly intact. Speech is normal. Skin: Skin is warm and dry and no rashes or lesions are noted. Psychiatric: Cooperative. Limitations: no limitations Course Vital Signs 03/03/18 14:49 Temperature 100 F H Pulse Rate 88 Respiratory 18 Rate Blood Pressure 115/78 O2 Sat by Pulse 99 Oximetry Medical Decision Making - Medical Decision Making Patient has been seen here in the emergency room by mental health. They recommend the patient follow palpation. He states he is not suicidal. He states he mentioned that earlier but he has no intentions of hurting himself. No plan whatsoever in place. Patient contracts for safety. Patient did have a low-grade temperature 100F. Admits to sore throat. Strep test was negative. Advised most likely a viral illness to follow-up or return if symptoms increase worsen. States understanding. - Lab Data Lab Results 03/03/18 03/03/18 Range/Units 14:43 14:43 Urine Opiates Screen Not Detected (NotDetected) Ur Oxycodone Screen Not Detected (NotDetected) Urine Methadone Screen Not Detected (NotDetected) Ur Propoxyphene Screen Not Detected (NotDetected) Ur Barbiturates Screen Detected H (NotDetected) U Tricyclic Antidepress Not Detected (NotDetected) Ur Phencyclidine Scrn Not Detected (NotDetected) Ur Amphetamines Screen Not Detected (NotDetected) U Methamphetamines Scrn Not Detected (NotDetected) U Benzodiazepines Scrn Not Detected (NotDetected) Urine Cocaine Screen Not Detected (NotDetected) U Marijuana (THC) Screen Not Detected (NotDetected) Group A Strep Rapid Negative (Negative) Disposition Clinical Impression: Acute pharyngitis, Depression Disposition: HOME SELF-CARE Condition: Good Instructions: Pharyngitis (ED) Additional Instructions: Please continue follow-up with community mental health as discussed here in the emergency room. Please use Tylenol/ibuprofen for her sore throat. Please drink emergency room if any symptoms increase or worsen or for any concerns. Is patient prescribed a controlled substance at d/c from ED?: No Referrals: Ericka Alvarado MD [STAFF PHYSICIAN] - 1-2 days Time of Disposition: 17:47
[2018-03-03 16:12] LABS: Amphetamine Screen,Urine Not Detected (NotDetected); Barbiturate Screen,Urine Detected (NotDetected); Benzodiazepines Screen,Urine Not Detected (NotDetected); Cocaine Screen,Urine Not Detected (NotDetected); Methadone Screen, Urine Not Detected (NotDetected); Opiate Screen,Urine Not Detected (NotDetected); Oxycodone Screen, Urine Not Detected (NotDetected); Phencyclidine Screen,Urine Not Detected (NotDetected); Tricyclic Antidepressant,Urine Not Detected (NotDetected); Urn Cannabinoid Scrn Not Detected (NotDetected)
== END 2018-03-03 18:21 | disposition home or self-care (01) ==
LOC: EC 14:44
DX: F32.9 Major depressive disorder, single episode, unspecified (principal); J02.9 Acute pharyngitis, unspecified; G40.909 Epilepsy, unspecified, not intractable, without status epilepticus; Z79.899 Other long term (current) drug therapy
CPT/HCPCS: 80306; 87081; 87430; 99285

== ENCOUNTER 2018-06-24 15:26 | Emergency (ER) | payer MEDICARE, OTHER ==
[2018-06-24 15:38] VITALS: BP 127/75; PULSE 79; RESP 18; TEMP 98.2
[2018-06-24] MEDS ORDERED: ONDANSETRON 4 MG/2 ML VIAL IVP STA (15:53)
[2018-06-24] MEDS ORDERED: diphenhydrAMINE 50 MG/ML 1 ML VIAL IVP STA (15:53)
[2018-06-24] MEDS ORDERED: SODIUM CHLORIDE 0.9% 2,000 ML IV STA (15:53)
--- NOTE | 2018-06-24 15:59 | ED ---
Nausea/Vomiting/Diarrhea HPI - General Chief complaint: Nausea/Vomiting/Diarrhea Stated complaint: vomiting Time Seen by Provider: 06/24/18 15:42 Source: patient, RN notes reviewed Mode of arrival: ambulatory Limitations: no limitations - History of Present Illness Initial comments: This a 28-year-old male presents emergency Department chief complaint of nausea vomiting. Patient states symptoms started late last night and continuing today. Patient states that several of episodes of emesis which are bile at this time. Patient denies any hematemesis or coffee-ground emesis. Patient reports no fever or chills. He has no localized abdominal pain he denies any diarrhea or constipation. Patient states that he's had no sick contacts with some symptoms. Denies any dysuria or hematuria. Patient states he had some Zofran at home tried it with no relief of his symptoms. - Related Data Home Medications Medication Instructions Recorded Confirmed carBAMazepine [TEGretol XR] 200 mg PO BID 11/02/17 03/03/18 carBAMazepine [TEGretol XR] 400 mg PO HS 11/02/17 03/03/18 Brexpiprazole [Rexulti] 2 mg PO HS 03/03/18 03/03/18 Butalb/Asprin/Caff 50-325-40Mg 1 cap PO BID PRN 03/03/18 03/03/18 [Fiorinal 50-325-40 MG] Ibuprofen [Motrin] 800 mg PO Q8HR PRN 03/03/18 03/03/18 Lacosamide [Vimpat] 100 mg PO BID 03/03/18 03/03/18 Levothyroxine Sodium [Synthroid] 50 mcg PO DAILY 03/03/18 03/03/18 [place] Carbonate 300 mg PO BID@1200,2000 03/03/18 03/03/18 [place] Carbonate 600 mg PO QAM 03/03/18 03/03/18 Venlafaxine HCl [Venlafaxine HCl 225 mg PO DAILY 03/03/18 03/03/18 ER] Previous Rx's Medication Instructions Recorded PHENobarbital 97.2 mg PO HS #14 tablet 07/24/17 lamoTRIgine [LaMICtal] 200 mg PO BID #28 tablet 07/24/17 Pantoprazole Sodium [Protonix] 40 mg PO DAILY #45 tablet. 11/21/17 Ondansetron Odt [Zofran Odt] 4 mg PO Q8HR PRN #10 tab 06/24/18 Allergies Allergy/AdvReac Type Severity Reaction Status Date / Time No Known Allergies Allergy Verified 06/24/18 15:38 Review of Systems ROS Statement: Those systems with pertinent positive or pertinent negative responses have been documented in the HPI. ROS Other: All systems not noted in ROS Statement are negative. Past Medical History Past Medical History: Seizure Disorder Additional Past Medical History / Comment(s): has history of epilepsy grand mal seizures since childhood History of Any Multi-Drug Resistant Organisms: None Reported Past Surgical History: Adenoidectomy, Cholecystectomy, Tonsillectomy Additional Past Surgical History / Comment(s): Patient is not sure if he had appendectomy or no Past Anesthesia/Blood Transfusion Reactions: No Reported Reaction Past Psychological History: Depression Smoking Status: Never smoker Past Alcohol Use History: Occasional Past Drug Use History: None Reported - Past Family History Brother(s) Family Medical History: Asthma Mother Family Medical History: Cancer General Exam Limitations: no limitations General appearance: alert, in no apparent distress Head exam: Present: atraumatic, normocephalic, normal inspection Respiratory exam: Present: normal lung sounds bilaterally. Absent: respiratory distress, wheezes, rales, rhonchi, stridor Cardiovascular Exam: Present: regular rate, normal rhythm, normal heart sounds. Absent: systolic murmur, diastolic murmur, rubs, gallop, clicks GI/Abdominal exam: Present: soft, tenderness (Minimal diffuse), normal bowel sounds. Absent: distended, guarding, rebound, rigid Skin exam: Present: warm, dry, intact, normal color. Absent: rash Course Vital Signs 06/24/18 15:37 Temperature 98.2 F Pulse Rate 79 Respiratory 18 Rate Blood Pressure 127/75 O2 Sat by Pulse 99 Oximetry - Reevaluation(s) Reevaluation #1: 06/24/18 17:08 Patient reevaluated at this time. Patient states he still nauseated. Patient will be given Reglan. Medical Decision Making - Lab Data Result diagrams: 06/24/18 16:05 06/24/18 16:05 Lab Results 06/24/18 06/24/18 Range/Units 16:05 16:05 WBC 9.1 (3.8-10.6) k/uL RBC 4.78 (4.30-5.90) m/uL Hgb 14.5 (13.0-17.5) gm/dL Hct 45.2 (39.0-53.0) % MCV 94.6 (80.0-100.0) fL MCH 30.4 (25.0-35.0) pg MCHC 32.1 (31.0-37.0) g/dL RDW 12.7 (11.5-15.5) % Plt Count 278 (150-450) k/uL Neutrophils % 71 % Lymphocytes % 19 % Monocytes % 3 % Eosinophils % 6 % Basophils % 0 % Neutrophils # 6.5 (1.3-7.7) k/uL Lymphocytes # 1.7 (1.0-4.8) k/uL Monocytes # 0.3 (0-1.0) k/uL Eosinophils # 0.6 (0-0.7) k/uL Basophils # 0.0 (0-0.2) k/uL Sodium 143 (137-145) mmol/L Potassium 4.4 (3.5-5.1) mmol/L Chloride 107 (98-107) mmol/L Carbon Dioxide 25 (22-30) mmol/L Anion Gap 11 mmol/L BUN 9 (9-20) mg/dL Creatinine 0.77 (0.66-1.25) mg/dL Est GFR (CKD-EPI)AfAm >90 (>60 ml/min/1.73 sqM) Est GFR (CKD-EPI)NonAf >90 (>60 ml/min/1.73 sqM) Glucose 105 H (74-99) mg/dL Calcium 9.7 (8.4-10.2) mg/dL Total Bilirubin 0.4 (0.2-1.3) mg/dL AST 25 (17-59) U/L ALT 20 L (21-72) U/L Alkaline Phosphatase 156 H (38-126) U/L Total Protein 8.3 H (6.3-8.2) g/dL Albumin 4.6 (3.5-5.0) g/dL Amylase 68 (30-110) U/L Lipase 56 (23-300) U/L Disposition Clinical Impression: Gastroenteritis Disposition: HOME SELF-CARE Condition: Stable Instructions: Gastroenteritis (ED) Additional Instructions: Please return to the Emergency Department if symptoms worsen or any other concerns. Prescriptions: Ondansetron Odt [Zofran Odt] 4 mg PO Q8HR PRN #10 tab PRN Reason: Nausea Is patient prescribed a controlled substance at d/c from ED?: No Referrals: [facility] [Primary Care Provider] - 1-2 days Time of Disposition: 17:11
[2018-06-24 16:25] LABS: Basophils % (A) 0 %; Eosinophils # (A) 0.6 k/uL (0-0.7); Eosinophils % (A) 6 %; HCT 45.2 % (39.0-53.0); HGB 14.5 gm/dL (13.0-17.5); Lymphocytes # (A) 1.7 k/uL (1.0-4.8); Lymphocytes % (A) 19 %; MCH 30.4 pg (25.0-35.0); MCHC 32.1 g/dL (31.0-37.0); MCV 94.6 fL (80.0-100.0); Mean Platelet Volume 6.1; Monocytes # (A) 0.3 k/uL (0-1.0); Monocytes % (A) 3 %; Neutrophils # (A) 6.5 k/uL (1.3-7.7); Neutrophils % (A) 71 %; Platelet Count 278 k/uL (150-450); RBC 4.78 m/uL (4.30-5.90); RDW 12.7 % (11.5-15.5); WBC 9.1 k/uL (3.8-10.6)
[2018-06-24 16:34] LABS: ALT 20 U/L (21-72); AST 25 U/L (17-59); Albumin 4.6 g/dL (3.5-5.0); Alkaline Phosphatase 156 U/L (38-126); Amylase 68 U/L (30-110); Anion Gap 11 mmol/L; Blood Urea Nitrogen 9 mg/dL (9-20); Calcium 9.7 mg/dL (8.4-10.2); Carbon Dioxide 25 mmol/L (22-30); Chloride 107 mmol/L (98-107); Glucose 105 mg/dL (74-99); Lipase 56 U/L (23-300); Potassium 4.4 mmol/L (3.5-5.1); Sodium 143 mmol/L (137-145); Total Bilirubin 0.4 mg/dL (0.2-1.3); Total Protein 8.3 g/dL (6.3-8.2)
[2018-06-24] MEDS ORDERED: METOCLOPRAMIDE 5 MG/ML 2 ML VIAL IVP STA (17:08)
== END 2018-06-24 18:14 | disposition home or self-care (01) ==
LOC: EC 15:26
DX: K52.9 Noninfective gastroenteritis and colitis, unspecified (principal); G40.409 Other generalized epilepsy and epileptic syndromes, not intractable, without status epilepticus; F32.9 Major depressive disorder, single episode, unspecified; Z79.899 Other long term (current) drug therapy; Z90.49 Acquired absence of other specified parts of digestive tract
CPT/HCPCS: 36415; 80053; 82150; 83690; 85025; 96361; 96374; 96375; 99284

== ENCOUNTER 2018-06-24 18:21 | Inpatient (IN) | payer MEDICARE, OTHER ==
[2018-06-24] MEDS ORDERED: LORazepam 2 MG/ML INJ IV STA ×2 (18:23→18:43)
[2018-06-24 18:31] LABS: Glucose,Whole Blood 105 mg/dL (75-99)
[2018-06-24 19:23] LABS: Acetaminophen <10.0 ug/mL; Alcohol <10 mg/dL; Carbamazepine (Tegretol) 3.2 ug/mL; Lithium 0.3 mmol/L; Magnesium 2.3 mg/dL (1.6-2.3); Salicylate <1.0 mg/dL
--- NOTE | 2018-06-24 19:25 | CT ---
EXAMINATION TYPE: CT brain andreia amin DATE OF EXAM: 06/24/2018 COMPARISON: CT brain 05/01/2013 HISTORY: seizure while standing fell hit the back of his head CT DLP: 1585.7 mGycm Automated exposure control for dose reduction was used. TECHNIQUE: CT scan of the head and cervical spine are performed without contrast. FINDINGS: Ventricles and sulci appear normal. There is no mass effect nor midline shift. There is n o sign of intracranial hemorrhage. There is extensive mucosal thickening in the ethmoid and maxillary sphenoid sinuses. Also left frontal sinus. Cervical vertebra have normal spacing and alignment. Posterior elements are intact. Facet joints appe ar normal. Skull base appears intact. IMPRESSION: Normal CT scan of the cervical spine. Normal CT scan of the brain. There is pansinusitis that is new compared to old exam.
--- NOTE | 2018-06-24 19:45 | XR ---
EXAMINATION TYPE: XR chest 1V portable DATE OF EXAM: 06/24/2018 COMPARISON: 03/10/2017 HISTORY: Seizure TECHNIQUE: Single frontal view of the chest is obtained. FINDINGS: Heart and mediastinum are normal. Lungs are clear. Costophrenic angles are clear. There ar e chest leads. IMPRESSION: Normal chest. No change.
--- NOTE | 2018-06-24 20:00 | ED ---
Seizure HPI - General Chief Complaint: Seizure Stated Complaint: Seizure Time Seen by Provider: 06/24/18 18:21 Source: family, RN notes reviewed, old records reviewed Mode of arrival: wheelchair Limitations: altered mental status - History of Present Illness Initial Comments: This a 28-year-old male with a history of seizure disorder who was just discharged from this facility the emergency department after being treated for nausea vomiting and likely dehydration. He was found have a seizure full body tonic-clonic lasting one half minutes approximately. He did fall and strike his head. He was brought back to the resuscitation bay. He was still demonstrating left lateral gaze and some activity. IV was started he was given 2 mg Ativan he did seem to respond to this. He did become somewhat combative after the seizure stopped consistent with a postictal state. He is on several medications for seizure unclear whether he has missed any or not. MD Complaint: seizure - Related Data Home Medications Medication Instructions Recorded Confirmed carBAMazepine [TEGretol XR] 200 mg PO BID 11/02/17 03/03/18 carBAMazepine [TEGretol XR] 400 mg PO HS 11/02/17 03/03/18 Brexpiprazole [Rexulti] 2 mg PO HS 03/03/18 03/03/18 Butalb/Asprin/Caff 50-325-40Mg 1 cap PO BID PRN 03/03/18 03/03/18 [Fiorinal 50-325-40 MG] Ibuprofen [Motrin] 800 mg PO Q8HR PRN 03/03/18 03/03/18 Lacosamide [Vimpat] 100 mg PO BID 03/03/18 03/03/18 Levothyroxine Sodium [Synthroid] 50 mcg PO DAILY 03/03/18 03/03/18 [place] Carbonate 300 mg PO BID@1200,2000 03/03/18 03/03/18 [place] Carbonate 600 mg PO QAM 03/03/18 03/03/18 Venlafaxine HCl [Venlafaxine HCl 225 mg PO DAILY 03/03/18 03/03/18 ER] Previous Rx's Medication Instructions Recorded PHENobarbital 97.2 mg PO HS #14 tablet 07/24/17 lamoTRIgine [LaMICtal] 200 mg PO BID #28 tablet 07/24/17 Pantoprazole Sodium [Protonix] 40 mg PO DAILY #45 tablet. 11/21/17 Ondansetron Odt [Zofran Odt] 4 mg PO Q8HR PRN #10 tab 06/24/18 Allergies Allergy/AdvReac Type Severity Reaction Status Date / Time No Known Allergies Allergy Verified 06/24/18 19:54 Review of Systems ROS Statement: Those systems with pertinent positive or pertinent negative responses have been documented in the HPI. ROS Other: All systems not noted in ROS Statement are negative. Limitations: ROS unobtainable due to patients medical condition Past Medical History Past Medical History: Seizure Disorder Additional Past Medical History / Comment(s): has history of epilepsy grand mal seizures since childhood History of Any Multi-Drug Resistant Organisms: None Reported Past Surgical History: Adenoidectomy, Cholecystectomy, Tonsillectomy Additional Past Surgical History / Comment(s): Patient is not sure if he had appendectomy or no Past Anesthesia/Blood Transfusion Reactions: No Reported Reaction Past Psychological History: Depression Smoking Status: Never smoker Past Alcohol Use History: Occasional Past Drug Use History: None Reported - Past Family History Brother(s) Family Medical History: Asthma Mother Family Medical History: Cancer General Exam - General Exam Comments Initial Comments: This is a well-developed well-nourished awake lethargic male who does not follow commands and does appear to be postictal Limitations: altered mental status General appearance: lethargic Head exam: Present: other (Very minimal evidence of swelling to the occipital scalp. No open wounds) Eye exam: Present: normal appearance, PERRL, EOMI. Absent: scleral icterus, conjunctival injection, periorbital swelling ENT exam: Present: normal exam, mucous membranes moist, other (No evidence of tongue biting) Neck exam: Present: normal inspection. Absent: tenderness, meningismus, lymphadenopathy Respiratory exam: Present: normal lung sounds bilaterally. Absent: respiratory distress, wheezes, rales, rhonchi, stridor Cardiovascular Exam: Present: normal rhythm, tachycardia GI/Abdominal exam: Present: soft, normal bowel sounds. Absent: distended, tenderness, guarding, rebound, rigid Rectal exam: Present: deferred Extremities exam: Present: full ROM, normal capillary refill, other ( Superficial abrasion seen over the). Absent: tenderness Back exam: Present: normal inspection Neurological exam: Present: altered, CN II-XII intact, reflexes normal. Absent : motor sensory deficit Psychiatric exam: Present: flat affect Skin exam: Present: warm, dry. Absent: intact Course Vital Signs 06/24/18 06/24/18 06/24/18 18:35 18:58 19:08 Temperature 97.8 F Pulse Rate 132 H 100 87 Respiratory 24 16 20 Rate Blood Pressure 131/93 131/60 116/57 O2 Sat by Pulse 96 97 98 Oximetry - Reevaluation(s) Reevaluation #1: 06/24/18 20:01 I did reevaluate patient several occasions I did discuss findings with the patient's family member patient does have elevated ammonia unknown etiology he will be admitted I did discuss case with Dr. Bennett both neurology GI and cardiology will be consulted Medical Decision Making - Lab Data Lab Results 06/24/18 06/24/18 06/24/18 Range/Units 18:24 18:29 18:29 POC Glucose (mg/dL) 105 H (75-99) mg/dL POC Glu Transfer Table Operator Helper ID Magnesium 2.3 (1.6-2.3) mg/dL Ammonia 184 H (<30) umol/L Salicylates <1.0 mg/dL Acetaminophen <10.0 ug/mL Carbamazepine 3.2 ug/mL [place] 0.3 mmol/L Serum Alcohol <10 mg/dL - EKG Data -: EKG Interpreted by Me EKG shows normal: sinus rhythm (Sinus tachycardia rate 113. We'll 166 QRS duration 98 QT since QTC 340/466 ct wave changes) Disposition Clinical Impression: Generalized seizure, Acute metabolic encephalopathy Disposition: ADMITTED IP TO THIS HOSP Condition: Serious Referrals: [facility] [Primary Care Provider] - 1-2 days
[2018-06-24] MEDS ORDERED: NALOXONE 0.4 MG/ML 1 ML VIAL IV PRN (20:02)
[2018-06-24] MEDS ORDERED: IBUPROFEN 400 MG TAB PO PRN (20:02)
[2018-06-24] MEDS ORDERED: levETIRAcetam IV 1,000 MG in SALINE 1 100ML.BAG IVPB STA (20:02)
[2018-06-24] MEDS ORDERED: BUTALB/APAP/CAFF 50-325-40MG TAB PO PRN (20:10)
[2018-06-24] MEDS ORDERED: ONDANSETRON ODT 4 MG TAB PO PRN (20:10)
[2018-06-24] MEDS ORDERED: IBUPROFEN 800 MG TAB PO PRN (20:10)
[2018-06-24] MEDS: SODIUM CHLORIDE 0.9% 1,000 ML IV SCH (20:42)
[2018-06-24] MEDS ORDERED: PHENobarbital 32.4 MG TAB PO SCH (22:00)
[2018-06-25] MEDS: lamoTRIgine 100 MG TAB PO SCH ×2 (02:43→09:55)
[2018-06-25] MEDS: LITHIUM CARBONATE 300 MG CAP PO SCH ×2 (02:43→09:55)
[2018-06-25] MEDS: LACOSAMIDE 50 MG TABLET PO SCH ×2 (02:57→09:55)
[2018-06-25] MEDS ORDERED: LEVOTHYROXINE 50 MCG TAB PO SCH (06:30)
[2018-06-25] MEDS ORDERED: PANTOPRAZOLE 40 MG TABLET PO SCH (07:30)
[2018-06-25 08:25] LABS: Basophils % (A) 0 %; Eosinophils # (A) 0.4 k/uL (0-0.7); Eosinophils % (A) 4 %; HCT 41.5 % (39.0-53.0); HGB 13.1 gm/dL (13.0-17.5); Lymphocytes # (A) 2.2 k/uL (1.0-4.8); Lymphocytes % (A) 23 %; MCH 30.3 pg (25.0-35.0); MCHC 31.6 g/dL (31.0-37.0); MCV 95.9 fL (80.0-100.0); Mean Platelet Volume 6.4; Monocytes # (A) 0.4 k/uL (0-1.0); Monocytes % (A) 4 %; Neutrophils # (A) 6.5 k/uL (1.3-7.7); Neutrophils % (A) 68 %; Platelet Count 271 k/uL (150-450); RBC 4.33 m/uL (4.30-5.90); RDW 12.8 % (11.5-15.5); WBC 9.6 k/uL (3.8-10.6)
[2018-06-25 08:28] VITALS: RESP 18
[2018-06-25 08:34] LABS: ALT 16 U/L (21-72); AST 25 U/L (17-59); Albumin 3.8 g/dL (3.5-5.0); Alkaline Phosphatase 131 U/L (38-126); Anion Gap 5 mmol/L; Blood Urea Nitrogen 10 mg/dL (9-20); Calcium 9.1 mg/dL (8.4-10.2); Carbon Dioxide 26 mmol/L (22-30); Chloride 113 mmol/L (98-107); Glucose 95 mg/dL (74-99); Potassium 4.4 mmol/L (3.5-5.1); Sodium 144 mmol/L (137-145); Total Bilirubin 0.4 mg/dL (0.2-1.3)
[2018-06-25] MEDS ORDERED: VENLAFAXINE HCL ER 75 MG CAP PO SCH (09:00)
[2018-06-25] MEDS ORDERED: LACTULOSE 20 GM/30 ML CUP PO SCH (09:00)
[2018-06-25] MEDS: SODIUM CHLORIDE 0.9% 1,000 ML IV SCH (09:51)
--- NOTE | 2018-06-25 13:00 | P.HPIM ---
History of Present Illness 28-year-old pleasant gentleman came to ER with the nausea vomiting. Patient was diagnosed with a gastritis or gastroenteritis subsequently discharged from ER, before he left the ER patient started having seizure-like activity tonic- clonic activity lasting for 1 minute with a post ictal confusion. No loss of bowel or bladder continence.. Because of nausea vomiting patient did take his medications but threw up his antiseizure medications. Patient is on multiple antiseizure medications including carbamazepine, Vimpat and phenobarbital. The levels of for phenobarbital and carbamazepine are low and do not have any Vimpat levels available at this time. Patient was given a dose of Lasix and Ativan and was subsequently admitted here for neurological evaluation. Patient had psychiatric issues including bipolar disorder for which patient is on the TM and venlafaxine. Patient does take ibuprofen but not a regular basis patient was given Protonix patient doesn't have any symptoms of nausea vomiting today able to tolerate diet well today. Patient is still lethargic which is common for him after seizure. Patient follows up with neurology in [facility] for his seizures. CT of head and neck was obtained which did not show any significant abnormality is some bruises on the face. Serum with the level levels are within normal limits. After discussion with the patient apparently fell have an aura with nausea vomiting before the seizure Review of Systems REVIEW OF SYSTEMS: CONSTITUTIONAL: No fever, no malaise, no fatigue. HEENT: No recent visual problems or hearing problems. Denied any sore throat. CARDIOVASCULAR: No chest pain, orthopnea, PND, no palpitations, no syncope. PULMONARY: No shortness of breath, no cough, no hemoptysis. GASTROINTESTINAL: No diarrhea, no nausea, no vomiting, no abdominal pain. Normoactive bowel sounds. NEUROLOGICAL: No headaches, no weakness, no numbness. HEMATOLOGICAL: Denies any bleeding or petechiae. GENITOURINARY: Denies any burning micturition, frequency, or urgency. MUSCULOSKELETAL/RHEUMATOLOGICAL: Denies any joint pain, swelling, or any muscle pain. ENDOCRINE: Denies any polyuria or polydipsia. The rest of the 14-point review of systems is negative. Past Medical History Past Medical History: GERD/Reflux, Seizure Disorder, Thyroid Disorder Additional Past Medical History / Comment(s): per pt's pt has been taking abx and cough medication for upper resp infection. has history of epilepsy , major depression. hx grand mal seizures since childhood, pleurisy History of Any Multi-Drug Resistant Organisms: None Reported Past Surgical History: Adenoidectomy, Cholecystectomy, Tonsillectomy Additional Past Surgical History / Comment(s): Patient is not sure if he had appendectomy or no Past Anesthesia/Blood Transfusion Reactions: Previous Problems w/ Anesthesia, Postoperative Nausea & Vomiting (PONV) Additional Past Anesthesia/Blood Transfusion Reaction / Comment(s): slow to wake from aa Smoking Status: Never smoker - Past Family History Brother(s) Family Medical History: Asthma Additional Family Medical History / Comment(s): back problems Mother Family Medical History: Cancer Additional Family Medical History / Comment(s): breast cancer Medications and Allergies Home Medications Medication Instructions Recorded Confirmed Type PHENobarbital 97.2 mg PO HS #14 tablet 07/24/17 06/24/18 Rx lamoTRIgine [LaMICtal] 200 mg PO BID #28 tablet 07/24/17 06/24/18 Rx carBAMazepine [TEGretol XR] 200 mg PO BID 11/02/17 06/24/18 History carBAMazepine [TEGretol XR] 400 mg PO HS 11/02/17 06/24/18 History Pantoprazole Sodium [Protonix] 40 mg PO DAILY #45 tablet. 11/21/17 06/24/18 Rx Brexpiprazole [Rexulti] 2 mg PO HS 03/03/18 06/24/18 History Butalb/Asprin/Caff 50-325-40Mg 1 cap PO BID PRN 03/03/18 06/24/18 History [Fiorinal 50-325-40 MG] Ibuprofen [Motrin] 800 mg PO Q8HR PRN 03/03/18 06/24/18 History Lacosamide [Vimpat] 100 mg PO BID 03/03/18 06/24/18 History Levothyroxine Sodium [Synthroid] 50 mcg PO DAILY 03/03/18 06/24/18 History [place] Carbonate 600 mg PO BID 03/03/18 06/24/18 History Venlafaxine HCl [Venlafaxine HCl 225 mg PO DAILY 03/03/18 06/24/18 History ER] Ondansetron Odt [Zofran Odt] 4 mg PO Q8HR PRN #10 tab 06/24/18 06/24/18 Rx Omeprazole [PriLOSEC] 40 mg PO AC-BRKFST #14 capsule. 06/25/18 Rx Allergies Allergy/AdvReac Type Severity Reaction Status Date / Time No Known Allergies Allergy Verified 06/24/18 19:54 Physical Exam Vitals: Vital Signs Temp Pulse Pulse Resp BP BP Pulse Ox 06/25/18 08:00 98.1 F 88 18 109/68 96 06/25/18 03:18 99 F 81 16 118/68 97 06/25/18 00:00 97.7 F 80 20 135/82 97 06/24/18 23:00 84 16 130/74 99 06/24/18 22:00 77 18 122/61 98 06/24/18 21:00 77 18 116/87 97 06/24/18 20:47 101 H 20 112/56 97 06/24/18 19:08 87 20 116/57 98 06/24/18 18:58 100 16 131/60 97 06/24/18 18:35 97.8 F 132 H 24 131/93 96 Intake and Output 06/24/18 06/25/18 06/25/18 22:59 06:59 14:59 Intake Total 720 120 Output Total 600 Balance 120 120 Intake: IV 320 Sodium Chloride 0.9% 1, 320 000 ml @ 80 mls/hr IV . [id number] LINO Rx#:[id number] Oral 400 120 Output: Urine 600 Other: # Voids 1 # Bowel Movements 1 Weight 92.986 kg 82.5 kg PHYSICAL EXAMINATION: GENERAL: The patient is alert and oriented x3, not in any acute distress. Patient is still lethargic HEENT: Pupils are round and equally reacting to light. EOMI. No scleral icterus. No conjunctival pallor. Normocephalic, atraumatic. No pharyngeal erythema. No thyromegaly. CARDIOVASCULAR: S1 and S2 present. No murmurs, rubs, or gallops. PULMONARY: Chest is clear to auscultation, no wheezing or crackles. ABDOMEN: Soft, nontender, nondistended, normoactive bowel sounds. No palpable organomegaly. MUSCULOSKELETAL: No joint swelling or deformity. EXTREMITIES: No cyanosis, clubbing, or pedal edema. NEUROLOGICAL: Gross neurological examination did not reveal any focal deficits. SKIN: No rashes. Results CBC & Chem 7: 06/25/18 07:57 06/25/18 07:57 Labs: Abnormal Lab Results - Last 24 Hours (Table) 06/24/18 06/24/18 06/24/18 Range/Units 18:24 18:29 18:29 Chloride (98-107) mmol/L POC Glucose (mg/dL) 105 H (75-99) mg/dL ALT (21-72) U/L Alkaline Phosphatase (38-126) U/L Ammonia 184 H (<30) umol/L Phenobarbital 8.7 L (15.0-40.0) ug/mL 06/25/18 Range/Units 07:57 Chloride 113 H (98-107) mmol/L POC Glucose (mg/dL) (75-99) mg/dL ALT 16 L (21-72) U/L Alkaline Phosphatase 131 H (38-126) U/L Ammonia (<30) umol/L Phenobarbital (15.0-40.0) ug/mL Thrombosis Risk Factor Assmnt - Choose All That Apply Any of the Below Risk Factors Present?: No Other Risk Factors: No Other congenital or acquired thrombophilia - If yes, enter type in comment: No Thrombosis Risk Factor Assessment Level: Very Low Risk Assessment and Plan Plan: -Seizures: Because of low levels of his antiseizure medications which is again secondary to vomiting his antiseizure medications as today morning. Neurology will evaluate the patient if cleared by neurology patient will be discharged patient will be discharged in the medications as recommended by neurology and changes as recommended by neurology. Patient presently is not on phenobarbital but on Keppra. -Elevated ammonia level: Etiology is not clear as probably a lab letter as his repeat ammonia level is within normal limits. -Nausea vomiting either gastritis gastroenteritis or aura, patient will be discharged on Prilosec. -Hypothyroidism -Gastroesophageal reflux disease -Bipolar disorder
--- NOTE | 2018-06-25 13:00 | P.DS ---
Providers Date of admission: 06/24/18 20:02 Attending physician: Juliana Bennett Consults: 06/24/18 20:03 Consult Physician Routine Consulting Provider: Tra Collazo Consult Reason/Comments: Seizure Do you want consulting provider notified?: Yes Primary care physician: [facility] Course: As mentioned in HPI Patient Condition at Discharge: Serious Plan - Discharge Summary Discharge Rx Participant: No New Discharge Prescriptions: New Omeprazole [PriLOSEC] 40 mg PO AC-BRKFST #14 capsule. No Action PHENobarbital 97.2 mg PO HS #14 tablet lamoTRIgine [LaMICtal] 200 mg PO BID #28 tablet carBAMazepine [TEGretol XR] 200 mg PO BID carBAMazepine [TEGretol XR] 400 mg PO HS Pantoprazole Sodium [Protonix] 40 mg PO DAILY #45 tablet. Venlafaxine HCl [Venlafaxine HCl ER] 225 mg PO DAILY Lacosamide [Vimpat] 100 mg PO BID Ibuprofen [Motrin] 800 mg PO Q8HR PRN PRN Reason: Pain Butalb/Asprin/Caff 50-325-40Mg [Fiorinal 50-325-40 MG] 1 cap PO BID PRN PRN Reason: Migraine Headache Brexpiprazole [Rexulti] 2 mg PO HS [place] Carbonate 600 mg PO BID Levothyroxine Sodium [Synthroid] 50 mcg PO DAILY Ondansetron Odt [Zofran Odt] 4 mg PO Q8HR PRN #10 tab PRN Reason: Nausea Discharge Medication List PHENobarbital 97.2 mg PO HS #14 tablet 07/24/17 [Rx] lamoTRIgine [LaMICtal] 200 mg PO BID #28 tablet 07/24/17 [Rx] carBAMazepine [TEGretol XR] 200 mg PO BID 11/02/17 [History] carBAMazepine [TEGretol XR] 400 mg PO HS 11/02/17 [History] Pantoprazole Sodium [Protonix] 40 mg PO DAILY #45 tablet. 11/21/17 [Rx] Brexpiprazole [Rexulti] 2 mg PO HS 03/03/18 [History] Butalb/Asprin/Caff 50-325-40Mg [Fiorinal 50-325-40 MG] 1 cap PO BID PRN [History] Ibuprofen [Motrin] 800 mg PO Q8HR PRN 03/03/18 [History] Lacosamide [Vimpat] 100 mg PO BID 03/03/18 [History] Levothyroxine Sodium [Synthroid] 50 mcg PO DAILY 03/03/18 [History] [place] Carbonate 600 mg PO BID 03/03/18 [History] Venlafaxine HCl [Venlafaxine HCl ER] 225 mg PO DAILY 03/03/18 [History] Ondansetron Odt [Zofran Odt] 4 mg PO Q8HR PRN #10 tab 06/24/18 [Rx] Omeprazole [PriLOSEC] 40 mg PO AC-SOPHIEKFST #14 capsule. 06/25/18 [Rx] Follow up Appointment(s)/Referral(s): [facility] [Primary Care Provider] - 3 Days (left message with office to call you back with follow up appointment date and time) Patient Instructions/Handouts: Recurrent Seizures in Adults (DC) Discharge Disposition: HOME SELF-CARE
[2018-06-25 13:46] VITALS: BP 112/70; PULSE 82; TEMP 98.7
[2018-06-25] MEDS ORDERED: PHENobarbital 32.4 MG TAB PO SCH (21:00)
== END 2018-06-25 14:10 | disposition home or self-care (01) | DRG 101 ==
LOC: EC 18:21 → 6SEL 20:02
PROVIDERS: ADMIT Hospitalist; ATTEND Hospitalist
DX: G40.909 Epilepsy, unspecified, not intractable, without status epilepticus (principal); E03.9 Hypothyroidism, unspecified; F31.9 Bipolar disorder, unspecified; K21.9 Gastro-esophageal reflux disease without esophagitis; K29.70 Gastritis, unspecified, without bleeding; K52.9 Noninfective gastroenteritis and colitis, unspecified; Z80.3 Family history of malignant neoplasm of breast; Z82.5 Family history of asthma and other chronic lower respiratory diseases; Z90.49 Acquired absence of other specified parts of digestive tract
CPT/HCPCS: 36415; 70450; 71045; 72125; 80053; 80156; 80178; 80184; 80320; 82140; 83520; 83735; 85025; 93005; 96361; 96365; 96375; 99285

== ENCOUNTER 2018-07-05 23:05 | Inpatient (IN) | payer MEDICARE, MEDICAID ==
--- NOTE | 2018-07-05 23:31 | ED ---
Psych HPI - General Chief Complaint: Psychiatric Symptoms Stated Complaint: mental health Time Seen by Provider: 07/05/18 23:16 Source: patient, RN notes reviewed Mode of arrival: ambulatory Limitations: no limitations - History of Present Illness Initial Comments: This is a 28-year-old male who presents to the emergency department with chief complaint of suicidal ideation. Patient was brought to the emergency department by [place] [employer]. He states that he wanted to jump in the river and commit suicide. He ended up not jumping in and called the [place] [employer] instead. Patient states he has been hospitalized multiple times in the past for depression and suicidal ideation. He denies homicidal ideation. Denies auditory or visual hallucinations. Denies alcohol or drug use. Denies recent illnesses or infections. Denies recent fevers or chills, chest pain or shortness of breath, abdominal pain, nausea or vomiting. - Related Data Home Medications Medication Instructions Recorded Confirmed carBAMazepine [TEGretol XR] 400 mg PO HS 11/02/17 07/05/18 Brexpiprazole [Rexulti] 2 mg PO HS 03/03/18 07/05/18 Butalb/Asprin/Caff 50-325-40Mg 1 cap PO BID PRN 03/03/18 07/05/18 [Fiorinal 50-325-40 MG] Ibuprofen [Motrin] 800 mg PO Q8HR PRN 03/03/18 07/05/18 Lacosamide [Vimpat] 100 mg PO BID 03/03/18 07/05/18 Levothyroxine Sodium [Synthroid] 50 mcg PO DAILY 03/03/18 07/05/18 [place] Carbonate 600 mg PO BID 03/03/18 07/05/18 Venlafaxine HCl [Venlafaxine HCl 225 mg PO DAILY 03/03/18 07/05/18 ER] Previous Rx's Medication Instructions Recorded PHENobarbital 97.2 mg PO HS #14 tablet 07/24/17 lamoTRIgine [LaMICtal] 200 mg PO BID #28 tablet 07/24/17 Pantoprazole Sodium [Protonix] 40 mg PO DAILY #45 tablet. 11/21/17 Ondansetron Odt [Zofran ODT] 4 mg PO Q8HR PRN #10 tab 06/24/18 Omeprazole [PriLOSEC] 40 mg PO AC-BRKFST #14 capsule. 06/25/18 PHENobarbital [Luminal] 16.2 mg PO HS #30 tab 06/25/18 carBAMazepine [TEGretol XR] 300 mg PO BID #60 tab.er.12h 06/25/18 Allergies Allergy/AdvReac Type Severity Reaction Status Date / Time No Known Allergies Allergy Verified 07/05/18 23:10 Review of Systems ROS Statement: Those systems with pertinent positive or pertinent negative responses have been documented in the HPI. ROS Other: All systems not noted in ROS Statement are negative. Past Medical History Past Medical History: GERD/Reflux, Seizure Disorder, Thyroid Disorder Additional Past Medical History / Comment(s): per pt's pt has been taking abx and cough medication for upper resp infection. has history of epilepsy , major depression. hx grand mal seizures since childhood, pleurisy History of Any Multi-Drug Resistant Organisms: None Reported Past Surgical History: Adenoidectomy, Cholecystectomy, Tonsillectomy Additional Past Surgical History / Comment(s): Patient is not sure if he had appendectomy or no Past Anesthesia/Blood Transfusion Reactions: Previous Problems w/ Anesthesia, Postoperative Nausea & Vomiting (PONV) Additional Past Anesthesia/Blood Transfusion Reaction / Comment(s): slow to wake from aa Past Psychological History: Depression Smoking Status: Never smoker Past Alcohol Use History: None Reported Past Drug Use History: None Reported - Past Family History Brother(s) Family Medical History: Asthma Additional Family Medical History / Comment(s): back problems Mother Family Medical History: Cancer Additional Family Medical History / Comment(s): breast cancer General Exam - General Exam Comments Initial Comments: General: Awake and alert, well-developed; in no apparent distress. HEENT: Head atraumatic, normocephalic. Pupils are equal, round and reactive to light. Extraocular movements intact. Oropharynx moist without erythema or exudate. Neck: Supple. Normal ROM. Cardiovascular: Regular rate and rhythm. No murmurs, rubs or gallops. Chest symmetrical. Respiratory: Lungs clear to auscultation bilaterally. No wheezes, rales or rhonchi. Normal respiratory effort with no use of accessory muscles. Musculoskeletal: Normal ROM, no tenderness bilateral upper and lower extremities. Ambulating normally. Skin: [employer], warm and dry. Neurological: Alert and oriented x3. CN II-XII grossly intact. Speech is fluent and answers are appropriate. No focal neuro deficits. Psychiatric: Cooperative and calm. Limitations: no limitations Course Vital Signs 07/05/18 07/06/18 23:08 04:16 Temperature 98.6 F 97.9 F Pulse Rate 92 71 Respiratory 18 18 Rate Blood Pressure 114/73 123/72 O2 Sat by Pulse 99 99 Oximetry Medical Decision Making - Medical Decision Making This is a 28-year-old male who presents to the emergency department with chief complaint of suicidal ideation. Patient was brought to the emergency department by [place] [employer] after having plans to jump into the river and commit suicide. Patient has a history of suicidal ideation and plans. He was medically cleared and evaluated by EPS. They are recommending inpatient treatment. Patient will be admitted to the psychiatric unit here at [facility]. Vitals are stable and patient is no acute distress. - Lab Data Lab Results 07/05/18 Range/Units 23:43 Urine Opiates Screen Not Detected (NotDetected) Ur Oxycodone Screen Not Detected (NotDetected) Urine Methadone Screen Not Detected (NotDetected) Ur Propoxyphene Screen Not Detected (NotDetected) Ur Barbiturates Screen Detected H (NotDetected) U Tricyclic Antidepress Not Detected (NotDetected) Ur Phencyclidine Scrn Not Detected (NotDetected) Ur Amphetamines Screen Not Detected (NotDetected) U Methamphetamines Scrn Not Detected (NotDetected) U Benzodiazepines Scrn Not Detected (NotDetected) Urine Cocaine Screen Not Detected (NotDetected) U Marijuana (THC) Screen Not Detected (NotDetected) Disposition Clinical Impression: Major depression, Suicidal ideation Disposition: ADMITTED IP TO THIS [facility] Condition: Good Is patient prescribed a controlled substance at d/c from ED?: No
[2018-07-06 00:12] LABS: Amphetamine Screen,Urine Not Detected (NotDetected); Benzodiazepines Screen,Urine Not Detected (NotDetected); Cocaine Screen,Urine Not Detected (NotDetected); Methadone Screen, Urine Not Detected (NotDetected); Opiate Screen,Urine Not Detected (NotDetected); Phencyclidine Screen,Urine Not Detected (NotDetected); Tricyclic Antidepressant,Urine Not Detected (NotDetected)
[2018-07-06 00:13] LABS: Barbiturate Screen,Urine Detected (NotDetected); Oxycodone Screen, Urine Not Detected (NotDetected); Urn Cannabinoid Scrn Not Detected (NotDetected)
[2018-07-06] MEDS ORDERED: MAGNESIUM HYDROXIDE 2,400 MG/10 ML CUP PO PRN (04:36)
[2018-07-06] MEDS ORDERED: MAG HYDROX/AL HYDROX/SIMETH 30 ML CUP PO PRN (04:36)
[2018-07-06] MEDS ORDERED: ACETAMINOPHEN TAB 325 MG TAB PO PRN (04:36)
[2018-07-06 04:46] VITALS: BP 129/70; PULSE 75; RESP 16; TEMP 98; BMI 25.5
[2018-07-06 06:30] LABS: Appearance,Urine Clear (Clear); Bilirubin,Urine Negative (Negative); Blood,Urine Negative (Negative); Color,Urine Yellow; Glucose,Urine (UA) Negative (Negative); Ketones,Urine Negative (Negative); Leukocyte Esterase,Urine Negative (Negative); Nitrite,Urine Negative (Negative); Protein,Urine Trace (Negative); Specific Gravity,Urine 1.022 (1.001-1.035); Urobilinogen,Urine <2.0 mg/dL (<2.0)
[2018-07-06] MEDS ORDERED: lamoTRIgine 100 MG TAB PO SCH (09:15)
[2018-07-06] MEDS: LACOSAMIDE 50 MG TABLET PO SCH ×2 (09:45→20:45)
[2018-07-06] MEDS: LITHIUM CARBONATE 300 MG CAP PO SCH ×2 (09:45→20:45)
[2018-07-06] MEDS: VENLAFAXINE HCL ER 75 MG CAP PO SCH (09:46)
--- NOTE | 2018-07-06 11:26 | P.HP ---
Psychiatric H&P - . H&P Date: 07/06/18 History & Physical: Allergies Allergy/AdvReac Type Severity Reaction Status Date / Time No Known Allergies Allergy Verified 07/06/18 04:57 Vital Signs Temp 98.0 F 07/06/18 04:38 Pulse 75 07/06/18 04:38 Resp 16 07/06/18 04:38 BP 129/70 07/06/18 04:38 Pulse Ox 99 07/06/18 04:38 Intake & Output 07/05/18 07/06/18 07/06/18 18:59 06:59 18:59 Weight 83.121 kg 83.121 kg Laboratory Last Values Urine Color Yellow 07/05/18 23:43 Urine Appearance Clear (Clear) 07/05/18 23:43 Urine pH 6.0 (5.0-8.0) 07/05/18 23:43 Ur Specific [place] 1.022 (1.001-1.035) 07/05/18 23:43 Urine Protein Trace (Negative) H 07/05/18 23:43 Urine Glucose (UA) Negative (Negative) 07/05/18 23:43 Urine Ketones Negative (Negative) 07/05/18 23:43 Urine Blood Negative (Negative) 07/05/18 23:43 Urine Nitrite Negative (Negative) 07/05/18 23:43 Urine Bilirubin Negative (Negative) 07/05/18 23:43 Urine Urobilinogen <2.0 mg/dL (<2.0) 07/05/18 23:43 Ur Leukocyte Esterase Negative (Negative) 07/05/18 23:43 Urine Opiates Screen Not Detected (NotDetected) 07/05/18 23:43 Ur Oxycodone Screen Not Detected (NotDetected) 07/05/18 23:43 Urine Methadone Screen Not Detected (NotDetected) 07/05/18 23:43 Ur Propoxyphene Screen Not Detected (NotDetected) 07/05/18 23:43 Ur Barbiturates Screen Detected (NotDetected) H 07/05/18 23:43 U Tricyclic Antidepress Not Detected (NotDetected) 07/05/18 23:43 Ur Phencyclidine Scrn Not Detected (NotDetected) 07/05/18 23:43 Ur Amphetamines Screen Not Detected (NotDetected) 07/05/18 23:43 U Methamphetamines Scrn Not Detected (NotDetected) 07/05/18 23:43 U Benzodiazepines Scrn Not Detected (NotDetected) 07/05/18 23:43 Urine Cocaine Screen Not Detected (NotDetected) 07/05/18 23:43 U Marijuana (THC) Screen Not Detected (NotDetected) 07/05/18 23:43 Assessment and Plan (1) Major depression Narrative/Plan: IDENTIFYING DATA: Chief Complaint: Psychiatric Symptoms:Suicidal and depression Initial Comments: This is a 28-year-old male who presents to the emergency department with chief complaint of suicidal ideation. Patient was brought to the emergency department by [place] [employer]. He states that he wanted to jump in the river and commit suicide. He ended up not jumping in and called the [place] [employer] instead. Patient states he has been hospitalized multiple times in the past for depression and suicidal ideation. He denies homicidal ideation. Denies auditory or visual hallucinations. Denies alcohol or drug use. Denies recent illnesses or infections. Denies recent fevers or chills, chest pain or shortness of breath, abdominal pain, nausea or vomiting. HPI: The patient is well known to the psychiatric service as he has had numerous admissions. He states that he feels overwhelmed that he cannot support his son financially. The patient has not been able to maintain employment. 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 He continues to indicate that he argues with his frequently and does not know if he should stay to her. They have a 2-year-old son together at this time. They frequently fight about money. He reports he has difficulty finding work because of a recent legal charge for malicious destruction of property. He is currently on probation. The patient does have a history of depression in the context of intellectual disability and seizure disorder. The patient is endorsing no homicidal ideation. He specifically states he has no thoughts of wanting to hurt his or son. He does feel safe here in the hospital. He is indicating no symptoms of psychosis. I have not been aware of him having a hypomanic or manic episode in the past but with other hospitalizations he was diagnosed with bipolar disorder. PAST PSYCHIATRIC HISTORY: The patient has had numerous psychiatric admissions ever since he age of 18. He has had suicidal ideation numerous times I am not aware of any actual attempts. PMH: Epilepsy he is prescribed phenobarbital, Tegretol, Lamictal he reports his most recent seizure was 1.5 years ago ALLERGIES: NO KNOWN DRUG ALLERGIES MEDICATIONS: Refer to [facility] HISTORY: The patient reports using alcohol every 2 days having 1-2 drinks, he reports no use of marijuana or other illicit drugs. He has never been placed in residential treatment for chemical dependency reasons. FAMILY PSYCHIATRIC HISTORY: None reported no suicides in the family FAMILY CHEMICAL DEPENDENCY HISTORY: None Reported SOCIAL HISTORY: The patient is 28 years old he's been for approximate 5 years. He has a contentious relationship with his . They have a 2-year- old son together. The patient has 1 brother and 2 sisters and 2 stepsisters. He currently has a guardian. He completed high school and did have a history of special education due to his intellectual disability. He struggles with maintaining employment. He is on a social security disability income as well as his . His guardian is his payee. Abuse history none reported, legal history he is on probation until 2019 due to a charge of malicious destruction of property and a prior charge of domestic violence. MENTAL STATUS EXAM: The patient is a 28 year old male who is alert he has a disheveled appearance hygiene is impaired. He is dressed in his own clothing. He has poor dentition and since I've seen him last more fracturing of his teeth. He does wear his eyeglasses. He reports a depressed hopeless mood with suicidal ideation. He is tearful throughout the session. He reports suicidal ideation with no homicidal ideation intent or plan. He is endorsing no auditory or visual hallucinations he is endorsing no specific delusions. Thought process is linear he demonstrates no tangential thinking loose associations or flight of ideas. He does not appear hypomanic or manic. He is oriented to person place and date. He is able to name the days of the week backwards. STRENGTHS/WEAKNESSES: Strengths: Guardianship, disability income, he has a residence to return to weaknesses: Ongoing discord with spouse I need she'll constraints due to inability to maintain employment INTELLECTUAL FUNCTIONING: Intellectual disability IMPRESSIONS: [] 1. Major depressive disorder recurrent severe without psychosis rule out bipolar depression, rule out alcohol use disorder, intellectual disability 2. Borderline personality disorder traits 3. Epilepsy PLAN: We will continue his medicines for epilepsy including Lamictal Tegretol and phenobarbital. He will be seen by internal medicine for routine history and physical exam. Social work will meet with the patient to complete a psychosocial assessment. We will monitor him for safety and encourage his participation in the milieu. We will monitor for any signs of alcohol withdrawal. We will likely initiate a different antidepressant medication for him after reviewing past trials and available options. Current Visit: Yes Status: Acute Priority: Medium Code(s): F32.9 - MAJOR DEPRESSIVE DISORDER, SINGLE EPISODE, UNSPECIFIED SNOMED Code(s): 126265534 (2) Suicidal ideation Current Visit: Yes Status: Acute Priority: Medium Code(s): R45.851 - SUICIDAL IDEATIONS SNOMED Code(s): 0168000 (3) Generalized seizure Current Visit: No Status: Acute Code(s): R56.9 - UNSPECIFIED CONVULSIONS SNOMED Code(s): 056244414 (4) Intellectual disability Current Visit: No Status: Acute Priority: Medium Code(s): F79 - UNSPECIFIED INTELLECTUAL DISABILITIES SNOMED Code(s): 245435196 Time with Patient: Less than 30
--- NOTE | 2018-07-06 12:08 | P.HPIM ---
History of Present Illness H&P Date: 07/06/18 The patient is a 28-year-old male with a past medical history of seizure disorder, hypothyroidism, major depressive disorder, intellectual disability, and GERD who was brought to the ED by EMS for suicidality and depression. The patient was wanting to jump into the river and commit suicide due to financial issues and family problems with his and their 2 year old son. The patient has been unable to maintain steady employment and is currently unemployed. He denied any current homicidal or suicidal ideation. He notes compliance with his antiepileptic and thyroid medications. He otherwise denied any active complaints including chest pain, palpitations, SOB, cough, fever, or chills. He further denied any cold or wamrth intolerance, nausea, vomiting, abd pain, diarrhea, constipation, headache, visual disturbances, or confusion. Review of Systems Pertinent positives and negatives as discussed in HPI, a complete review of systems was performed and all other systems are negative. Past Medical History Past Medical History: GERD/Reflux, Seizure Disorder, Thyroid Disorder Additional Past Medical History / Comment(s): per pt's pt has been taking abx and cough medication for upper resp infection. has history of epilepsy , major depression. hx grand mal seizures since childhood, pleurisy History of Any Multi-Drug Resistant Organisms: None Reported Past Surgical History: Adenoidectomy, Cholecystectomy, Tonsillectomy Additional Past Surgical History / Comment(s): Patient is not sure if he had appendectomy or no Past Anesthesia/Blood Transfusion Reactions: Previous Problems w/ Anesthesia, Postoperative Nausea & Vomiting (PONV) Additional Past Anesthesia/Blood Transfusion Reaction / Comment(s): slow to wake from aa Past Psychological History: Depression Smoking Status: Never smoker Past Alcohol Use History: None Reported Past Drug Use History: None Reported - Past Family History Brother(s) Family Medical History: Asthma Additional Family Medical History / Comment(s): back problems Mother Family Medical History: Cancer Additional Family Medical History / Comment(s): breast cancer Medications and Allergies Home Medications Medication Instructions Recorded Confirmed Type PHENobarbital 97.2 mg PO HS #14 tablet 07/24/17 07/05/18 Rx lamoTRIgine [LaMICtal] 200 mg PO BID #28 tablet 07/24/17 07/05/18 Rx carBAMazepine [TEGretol XR] 400 mg PO HS 11/02/17 07/05/18 History Brexpiprazole [Rexulti] 2 mg PO HS 03/03/18 07/05/18 History Ibuprofen [Motrin] 800 mg PO Q8HR PRN 03/03/18 07/05/18 History Lacosamide [Vimpat] 100 mg PO BID 03/03/18 07/05/18 History Levothyroxine Sodium [Synthroid] 50 mcg PO DAILY 03/03/18 07/05/18 History [place] Carbonate 600 mg PO BID 03/03/18 07/05/18 History Venlafaxine HCl [Venlafaxine HCl 225 mg PO DAILY 03/03/18 07/05/18 History ER] carBAMazepine [TEGretol XR] 200 mg PO BID 07/06/18 07/06/18 History Allergies Allergy/AdvReac Type Severity Reaction Status Date / Time No Known Allergies Allergy Verified 07/06/18 04:57 Physical Exam Vitals: Vital Signs Temp Pulse Pulse Resp BP BP Pulse Ox 07/06/18 04:38 98.0 F 75 16 129/70 99 07/06/18 04:16 97.9 F 71 18 123/72 99 07/05/18 23:08 98.6 F 92 18 114/73 99 Intake and Output 07/05/18 07/06/18 07/06/18 22:59 06:59 14:59 Other: Weight 83.121 kg 83.121 kg General: [non toxic], [no distress], [appears at stated age], [normal weight] Derm: [no unusual rashes/lesions] [no unusual ecchymoses], [warm], [dry] Head: [atraumatic], [normocephalic], [symmetric] Eyes: [EOMI], [no lid lag], [anicteric sclera], [pupils equal round reactive to light] ENT: [Nose and ears atraumatic], [no thrush], [no pharyngeal erythema] Neck: [No thyromegaly], [no cervical lymphadenopathy], [trachea midline], [ supple] Mouth: [no lip lesion], [mucus membranes moist] Cardiovascular: [S1S2 reg], [no murmur], [positive posterior tibial pulse bilateral], [no edema], [capillary refill less than 2 seconds] Lungs: [CTA bilateral], [no rhonchi, no rales] , [no accessory muscle use] Abdominal: [soft], [ nontender to palpation], [no guarding], [no appreciable organomegaly], [normal bowel sounds] Ext: [no gross muscle atrophy], [muscle strength 5 out of 5 in all 4 extremities grossly], [no contractures], Neuro: [ CN II-XI grossly intact], [light touch intact all 4 extremities], [ finger to nose within normal limits], Psych: [Alert], [oriented], [appropriate affect] Results Labs: Abnormal Lab Results - Last 24 Hours (Table) 07/05/18 07/05/18 Range/Units 23:43 23:43 Urine Protein Trace H (Negative) Ur Barbiturates Screen Detected H (NotDetected) Thrombosis Risk Factor Assmnt - Choose All That Apply Any of the Below Risk Factors Present?: Yes Each Factor Represents 1 point: Obesity (BMI >25) Other Risk Factors: No Other congenital or acquired thrombophilia - If yes, enter type in comment: No Thrombosis Risk Factor Assessment Total Risk Factor Score: 1 Thrombosis Risk Factor Assessment Level: Low Risk Assessment and Plan Plan: Major depressive disorder, suicidality with intellectual disability -Admitted to inpatient psych, continue with antidepressants Trace proteinuria - Check A1C Seizure disorder -C/w carbamazepine 200 mg bid, and 400 mg qhs; Lamictal 20 mg bid; phenobarbital 97.2 mg qhs; Lacosamide 100 mg bid Hypothyroidism -C/w Levothyroxine 50 mcg qam -Check TSH DVT//GI prophylaxis - Low risk, patient is ambulatory - No indication for GI prophylaxis Thank you for allowing us to participate in the care of this patient. We will follow peripherally. Do not hesitate to contact us with questions. Someone can be reached from the [facility] hospitalist group at all hours of the day at [phone].
[2018-07-06] MEDS: IBUPROFEN 800 MG TAB PO PRN (17:56)
[2018-07-06] MEDS: lamoTRIgine 100 MG TAB PO SCH (20:45)
[2018-07-06] MEDS ORDERED: PHENobarbital 32.4 MG TAB PO SCH (21:00)
[2018-07-06] MEDS ORDERED: Brexpiprazole [Rexulti] PO SCH (21:00)
[2018-07-07] MEDS: LEVOTHYROXINE 50 MCG TAB PO SCH ×2 (06:39→06:49)
[2018-07-07] MEDS: VENLAFAXINE HCL ER 75 MG CAP PO SCH (07:38)
[2018-07-07] MEDS: LACOSAMIDE 50 MG TABLET PO SCH (07:38)
[2018-07-07] MEDS: LITHIUM CARBONATE 300 MG CAP PO SCH (07:38)
[2018-07-07] MEDS: lamoTRIgine 100 MG TAB PO SCH (07:38)
[2018-07-07] MEDS: IBUPROFEN 800 MG TAB PO PRN (08:24)
[2018-07-07] MEDS ORDERED: lamoTRIgine 100 MG TAB PO SCH (09:00)
[2018-07-07 10:49] LABS: Basophils % (A) 0 %; Eosinophils # (A) 0.6 k/uL (0-0.7); Eosinophils % (A) 9 %; HCT 41.9 % (39.0-53.0); HGB 13.8 gm/dL (13.0-17.5); Lymphocytes # (A) 1.8 k/uL (1.0-4.8); Lymphocytes % (A) 27 %; MCH 30.9 pg (25.0-35.0); MCHC 32.8 g/dL (31.0-37.0); MCV 94.2 fL (80.0-100.0); Mean Platelet Volume 6.5; Monocytes # (A) 0.3 k/uL (0-1.0); Monocytes % (A) 4 %; Neutrophils # (A) 3.9 k/uL (1.3-7.7); Neutrophils % (A) 59 %; Platelet Count 268 k/uL (150-450); RBC 4.45 m/uL (4.30-5.90); RDW 12.5 % (11.5-15.5); WBC 6.7 k/uL (3.8-10.6)
[2018-07-07 11:03] LABS: ALT 12 U/L (21-72); AST 18 U/L (17-59); Albumin 4.4 g/dL (3.5-5.0); Alkaline Phosphatase 110 U/L (38-126); Anion Gap 9 mmol/L; Blood Urea Nitrogen 13 mg/dL (9-20); Calcium 9.6 mg/dL (8.4-10.2); Carbon Dioxide 26 mmol/L (22-30); Chloride 107 mmol/L (98-107); Cholesterol 186 mg/dL (<200); Glucose 84 mg/dL (74-99); HDL Cholesterol 45 mg/dL (40-60); LDL Cholesterol,Calculated 127 mg/dL (0-99); Potassium 4.9 mmol/L (3.5-5.1); Sodium 142 mmol/L (137-145); Total Bilirubin 0.3 mg/dL (0.2-1.3); Total Protein 7.7 g/dL (6.3-8.2); Triglycerides 72 mg/dL (<150)
--- NOTE | 2018-07-07 13:13 | P.DS ---
Providers Date of admission: 07/06/18 04:06 Expected date of discharge: 07/07/18 Attending physician: Mazin Martin DO Consults: 07/06/18 04:36 Consult Physician Routine Consulting Provider: Bakari Physician Consult Reason/Comments: H & P Do you want consulting provider notified?: Yes, Notify in am Primary care physician: [facility] - Discharge Diagnosis(es) (1) Major depression I felt suicidal Summary of hospital course: The patient was admitted to the mental health unit voluntarily. We reviewed his presenting symptoms and medication options. The initially indicated that the Trintellix had not been providing sufficient relief and this led him to discontinuing it practically in the recent past. He reported complying with a wreck salty as he was taking his bedtime medications but was not aware of any benefit from that medication. We discussed medication options. He was particular concern with anxiety symptoms that seem to be ongoing. We decided to trial Zoloft as he had not yet been on that medication. The patient was continued on lithium his lithium level was within normal range. Tegretol level was in the therapeutic range as well. The patient indicates today that he no longer has any suicidal ideation and he feels he can manage his behavior. He wishes to continue working with his outpatient therapist and psychiatrist. Brief summary of admission note: This patient is a 27-year-old male who was admitted to the mental health unit through the emergency room on a petition indicating that the patient was having suicidal ideation. The petition indicated Stephan stated he wanted to kill himself with a knife but his would not give him one. The patient is well known to me as I have treated him in the past as an outpatient and on the mental health unit. He carries a diagnosis of depression rule out bipolar disorder with intellectual disability. He has an ongoing seizure disorder as well. There is a question about alcohol use disorder as he has struggled with abstinence in the past. He is known to have cluster B personality disorder traits. He very much struggles with his relationship with his . Stephan has had a history of becoming overwhelmed with environmental stressors which will lead him to have suicidal thoughts and then subsequently be admitted to the hospital. Impressions 1. Major depressive disorder recurrent severe without psychosis rule out bipolar depression, rule out alcohol use disorder, intellectual disability 2. Borderline personality disorder traits 3. Epilepsy Plan: The patient will be discharged mental health unit to return home. Social work will arrange his outpatient follow-up with professional counseling [facility]. The patient's plans on resuming Trintellix 20 mg daily he will continue on lithium 900 mg at bedtime. I agree that the lithium would be best given 300 mg 3 times daily however the patient is very unlikely to comply with that. When he meets with his outpatient psychiatrist they can decide if they are going to resume the Rexulti. He will continue on his medications for seizure control including Lamictal Tegretol and phenobarbital. He is instructed to abstain from any use of alcohol or any illicit drugs. Current Visit: Yes Status: Acute Priority: Low (2) Suicidal ideation Current Visit: Yes Status: Acute Priority: Low (3) Generalized seizure Current Visit: No Status: Acute (4) Intellectual disability Current Visit: No Status: Acute Priority: Medium Patient Condition at Discharge: Good Plan - Discharge Summary Discharge Rx Participant: No New Discharge Prescriptions: Continue PHENobarbital 97.2 mg PO HS #14 tablet lamoTRIgine [LaMICtal] 200 mg PO BID #28 tablet carBAMazepine [TEGretol XR] 400 mg PO HS Venlafaxine HCl [Venlafaxine HCl ER] 225 mg PO DAILY Lacosamide [Vimpat] 100 mg PO BID Brexpiprazole [Rexulti] 2 mg PO HS [place] Carbonate 600 mg PO BID Levothyroxine Sodium [Synthroid] 50 mcg PO DAILY carBAMazepine [TEGretol XR] 200 mg PO BID Discontinued Ibuprofen [Motrin] 800 mg PO Q8HR PRN PRN Reason: Pain Discharge Medication List PHENobarbital 97.2 mg PO HS #14 tablet 07/24/17 [Rx] lamoTRIgine [LaMICtal] 200 mg PO BID #28 tablet 07/24/17 [Rx] carBAMazepine [TEGretol XR] 400 mg PO HS 11/02/17 [History] Brexpiprazole [Rexulti] 2 mg PO HS 03/03/18 [History] Lacosamide [Vimpat] 100 mg PO BID 03/03/18 [History] Levothyroxine Sodium [Synthroid] 50 mcg PO DAILY 03/03/18 [History] [place] Carbonate 600 mg PO BID 03/03/18 [History] Venlafaxine HCl [Venlafaxine HCl ER] 225 mg PO DAILY 03/03/18 [History] carBAMazepine [TEGretol XR] 200 mg PO BID 07/06/18 [History] Follow up Appointment(s)/Referral(s): [facility] [Primary Care Provider] - 1-2 days Discharge Disposition: HOME SELF-CARE
[2018-07-07 19:27] LABS: Hemoglobin A1C 4.5 % (4.0-6.0)
== END 2018-07-07 15:53 | disposition home or self-care (01) | DRG 885 ==
LOC: EC 23:05 → 3MHU 07-06 04:06
PROVIDERS: ADMIT Psychiatry & Neurology Psychiatry; ATTEND Psychiatry & Neurology Psychiatry
DX: F33.2 Major depressive disorder, recurrent severe without psychotic features (principal); R45.851 Suicidal ideations; E03.9 Hypothyroidism, unspecified; F60.3 Borderline personality disorder; F79 Unspecified intellectual disabilities; G40.409 Other generalized epilepsy and epileptic syndromes, not intractable, without status epilepticus; K21.9 Gastro-esophageal reflux disease without esophagitis; Z59.9 Problem related to housing and economic circumstances, unspecified; Z65.3 Problems related to other legal circumstances; Z63.0 Problems in relationship with spouse or partner; Z79.899 Other long term (current) drug therapy; Z80.3 Family history of malignant neoplasm of breast; Z82.5 Family history of asthma and other chronic lower respiratory diseases; Z79.890 Hormone replacement therapy; F41.9 Anxiety disorder, unspecified; F10.10 Alcohol abuse, uncomplicated; R80.9 Proteinuria, unspecified; K08.89 Other specified disorders of teeth and supporting structures
CPT/HCPCS: 80053; 80061; 80178; 80306; 81003; 82075; 83036; 84443; 85025; 99285

== ENCOUNTER 2018-07-21 01:25 | Inpatient (IN) | payer MEDICARE, MEDICAID ==
[2018-07-21] MEDS ORDERED: SODIUM CHLORIDE 0.9% 1,000 ML IV STA (01:47)
--- NOTE | 2018-07-21 02:13 | ED ---
General Adult HPI - General Chief complaint: Psychiatric Symptoms Stated complaint: Mental health Time Seen by Provider: 07/21/18 01:39 Source: police Mode of arrival: ambulatory Limitations: no limitations - History of Present Illness Initial comments: Because a 28-year-old male with an extensive psychiatric history who presents the ED today in police custody for evaluation of suicide attempt. Patient reports that he took an electric extension cord wrapped around his neck in an attempt to kill himself. Patient reports that he was in the seated position doing this. He was not hanging from anything. He did not have a fall or any tension on the neck. He reports that he just slumped down from a sitting position hoping this would choke him. He reports he was in this position for 5- 10 minutes. He did not lose consciousness. Patient was recently admitted to our psychiatric facility approximately a week ago. - Related Data Home Medications Medication Instructions Recorded Confirmed carBAMazepine [TEGretol XR] 400 mg PO HS 11/02/17 07/20/18 Brexpiprazole [Rexulti] 2 mg PO HS 03/03/18 07/20/18 Lacosamide [Vimpat] 100 mg PO BID 03/03/18 07/20/18 Levothyroxine Sodium [Synthroid] 50 mcg PO DAILY 03/03/18 07/20/18 [place] Carbonate 600 mg PO BID 03/03/18 07/20/18 Venlafaxine HCl [Venlafaxine HCl 225 mg PO DAILY 03/03/18 07/20/18 ER] carBAMazepine [TEGretol XR] 200 mg PO BID 07/06/18 07/20/18 Previous Rx's Medication Instructions Recorded PHENobarbital 97.2 mg PO HS #14 tablet 07/24/17 lamoTRIgine [LaMICtal] 200 mg PO BID #28 tablet 07/24/17 Allergies Allergy/AdvReac Type Severity Reaction Status Date / Time No Known Allergies Allergy Verified 07/21/18 01:37 Review of Systems ROS Statement: Those systems with pertinent positive or pertinent negative responses have been documented in the HPI. ROS Other: All systems not noted in ROS Statement are negative. Past Medical History Past Medical History: GERD/Reflux, Seizure Disorder, Thyroid Disorder Additional Past Medical History / Comment(s): has history of epilepsy LAST SEIZURE 06/30/18, major depression. hx grand mal seizures since childhood, History of Any Multi-Drug Resistant Organisms: None Reported Past Surgical History: Adenoidectomy, Appendectomy, Cholecystectomy, Tonsillectomy Additional Past Surgical History / Comment(s): Patient is not sure if he had appendectomy or no Past Anesthesia/Blood Transfusion Reactions: Previous Problems w/ Anesthesia Additional Past Anesthesia/Blood Transfusion Reaction / Comment(s): SLOW TO WAKE FROM ANESTHESIA" Past Psychological History: Depression Smoking Status: Never smoker Past Alcohol Use History: None Reported Past Drug Use History: None Reported - Past Family History Brother(s) Family Medical History: Asthma Additional Family Medical History / Comment(s): back problems Mother Family Medical History: Cancer Additional Family Medical History / Comment(s): breast cancer General Exam - General Exam Comments Initial Comments: Physical Exam GENERAL: Patient is well-developed and well-nourished. Patient is nontoxic and well- hydrated and is in no distress. HENT: Normocephalic, Atraumatic. No petechiae or hemorrhage of the face Mild erythema of the neck consistent with history of having wrapped in an electric cord around his neck EYES: PERRL, EOMI No subconjunctival hemorrhage PULMONARY: Unlabored respirations. No audible rales rhonchi or wheezing was noted. CARDIOVASCULAR: There is a regular rate and rhythm without any murmurs gallops or rubs. No carotid bruit ABDOMEN: Soft and nontender with normal bowel sounds. SKIN: Skin is clear with no lesions or rashes and otherwise unremarkable. : Deferred NEUROLOGIC: Patient is alert and oriented x3. Moving all extremities spontaneously MUSCULOSKELETAL: Normal extremities with adequate strength and full range of motion. No lower extremity swelling or edema. No calf tenderness. PSYCHIATRIC: Suicidal Limitations: no limitations Limitations: no limitations Course Vital Signs 07/21/18 01:36 Temperature 98.8 F Pulse Rate 90 Respiratory 18 Rate Blood Pressure 131/87 O2 Sat by Pulse 98 Oximetry Medical Decision Making - Medical Decision Making Patient was seen and evaluated, history was obtained from the patient, review of medical record as well as the police. Patient wrapped and extension cord around his neck and then slumped down in a sitting position hoping the extension cord was cut off his airway. Patient reports being in this position for 5-10 minutes without loss of consciousness. Patient did not have a fall. Patient does have some redness of the neck but no definitive ligature mukherjee. No focal neurologic deficits, no carotid bruit, no hard or soft signs of aerodigestive injury. Labs, CTA of the neck and a chest x-ray were ordered Labs and imaging with no acute findings, medically cleared for evaluation by psychiatry EPS nurse evaluated the patient plan for admission to our facility Admission orders placed - Lab Data Result diagrams: 07/21/18 02:20 07/21/18 02:20 Lab Results 07/21/18 07/21/18 07/21/18 Range/Units 02:20 02:20 02:20 WBC 9.2 (3.8-10.6) k/uL RBC 4.44 (4.30-5.90) m/uL Hgb 13.4 (13.0-17.5) gm/dL Hct 41.2 (39.0-53.0) % MCV 92.8 (80.0-100.0) fL MCH 30.2 (25.0-35.0) pg MCHC 32.6 (31.0-37.0) g/dL RDW 12.5 (11.5-15.5) % Plt Count 248 (150-450) k/uL Neutrophils % 58 % Lymphocytes % 27 % Monocytes % 4 % Eosinophils % 10 % Basophils % 0 % Neutrophils # 5.3 (1.3-7.7) k/uL Lymphocytes # 2.5 (1.0-4.8) k/uL Monocytes # 0.4 (0-1.0) k/uL Eosinophils # 0.9 H (0-0.7) k/uL Basophils # 0.0 (0-0.2) k/uL PT (9.0-12.0) sec INR (<1.2) APTT (22.0-30.0) sec Sodium 139 (137-145) mmol/L Potassium 3.8 (3.5-5.1) mmol/L Chloride 105 (98-107) mmol/L Carbon Dioxide 22 (22-30) mmol/L Anion Gap 12 mmol/L BUN 8 L (9-20) mg/dL Creatinine 0.75 (0.66-1.25) mg/dL Est GFR (CKD-EPI)AfAm >90 (>60 ml/min/1.73 sqM) Est GFR (CKD-EPI)NonAf >90 (>60 ml/min/1.73 sqM) Glucose 115 H (74-99) mg/dL Calcium 9.5 (8.4-10.2) mg/dL Total Bilirubin 0.2 (0.2-1.3) mg/dL AST 17 (17-59) U/L ALT 20 L (21-72) U/L Alkaline Phosphatase 108 (38-126) U/L Troponin I (0.000-0.034) ng/mL Total Protein 7.8 (6.3-8.2) g/dL Albumin 4.5 (3.5-5.0) g/dL Urine Color Yellow Urine Appearance Clear (Clear) Urine pH 6.5 (5.0-8.0) Ur Specific [place] 1.014 (1.001-1.035) Urine Protein Negative (Negative) Urine Glucose (UA) Negative (Negative) Urine Ketones Negative (Negative) Urine Blood Negative (Negative) Urine Nitrite Negative (Negative) Urine Bilirubin Negative (Negative) Urine Urobilinogen <2.0 (<2.0) mg/dL Ur Leukocyte Esterase Negative (Negative) Urine Opiates Screen Not Detected (NotDetected) Ur Oxycodone Screen Not Detected (NotDetected) Urine Methadone Screen Not Detected (NotDetected) Ur Propoxyphene Screen Not Detected (NotDetected) Ur Barbiturates Screen Detected H (NotDetected) U Tricyclic Antidepress Not Detected (NotDetected) Ur Phencyclidine Scrn Not Detected (NotDetected) Ur Amphetamines Screen Not Detected (NotDetected) U Methamphetamines Scrn Not Detected (NotDetected) U Benzodiazepines Scrn Not Detected (NotDetected) Urine Cocaine Screen Not Detected (NotDetected) U Marijuana (THC) Screen Not Detected (NotDetected) Serum Alcohol <10 mg/dL Blood Type Blood Type Recheck Antibody Screen Spec Expiration Date 07/21/18 07/21/18 07/21/18 Range/Units 02:20 02:20 02:20 WBC (3.8-10.6) k/uL RBC (4.30-5.90) m/uL Hgb (13.0-17.5) gm/dL Hct (39.0-53.0) % MCV (80.0-100.0) fL MCH (25.0-35.0) pg MCHC (31.0-37.0) g/dL RDW (11.5-15.5) % Plt Count (150-450) k/uL Neutrophils % % Lymphocytes % % Monocytes % % Eosinophils % % Basophils % % Neutrophils # (1.3-7.7) k/uL Lymphocytes # (1.0-4.8) k/uL Monocytes # (0-1.0) k/uL Eosinophils # (0-0.7) k/uL Basophils # (0-0.2) k/uL PT 10.4 (9.0-12.0) sec INR 1.1 (<1.2) APTT 25.2 (22.0-30.0) sec Sodium (137-145) mmol/L Potassium (3.5-5.1) mmol/L Chloride (98-107) mmol/L Carbon Dioxide (22-30) mmol/L Anion Gap mmol/L BUN (9-20) mg/dL Creatinine (0.66-1.25) mg/dL Est GFR (CKD-EPI)AfAm (>60 ml/min/1.73 sqM) Est GFR (CKD-EPI)NonAf (>60 ml/min/1.73 sqM) Glucose (74-99) mg/dL Calcium (8.4-10.2) mg/dL Total Bilirubin (0.2-1.3) mg/dL AST (17-59) U/L ALT (21-72) U/L Alkaline Phosphatase (38-126) U/L Troponin I <0.012 (0.000-0.034) ng/mL Total Protein (6.3-8.2) g/dL Albumin (3.5-5.0) g/dL Urine Color Urine Appearance (Clear) Urine pH (5.0-8.0) Ur Specific [place] (1.001-1.035) Urine Protein (Negative) Urine Glucose (UA) (Negative) Urine Ketones (Negative) Urine Blood (Negative) Urine Nitrite (Negative) Urine Bilirubin (Negative) Urine Urobilinogen (<2.0) mg/dL Ur Leukocyte Esterase (Negative) Urine Opiates Screen (NotDetected) Ur Oxycodone Screen (NotDetected) Urine Methadone Screen (NotDetected) Ur Propoxyphene Screen (NotDetected) Ur Barbiturates Screen (NotDetected) U Tricyclic Antidepress (NotDetected) Ur Phencyclidine Scrn (NotDetected) Ur Amphetamines Screen (NotDetected) U Methamphetamines Scrn (NotDetected) U Benzodiazepines Scrn (NotDetected) Urine Cocaine Screen (NotDetected) U Marijuana (THC) Screen (NotDetected) Serum Alcohol mg/dL Blood Type A Negative Blood Type Recheck CABO Indicated Antibody Screen NEGATIVE Spec Expiration Date 07/24/2018 - 2319 Disposition Clinical Impression: Attempted suicide, Depression, Suicidal ideation Disposition: TRANSFER TO PSYCH HOSP/UNIT Condition: Serious Is patient prescribed a controlled substance at d/c from ED?: No Referrals: [facility] [Primary Care Provider] - 1-2 days
[2018-07-21 02:34] LABS: Appearance,Urine Clear (Clear); Basophils % (A) 0 %; Bilirubin,Urine Negative (Negative); Blood,Urine Negative (Negative); Color,Urine Yellow; Eosinophils # (A) 0.9 k/uL (0-0.7); Eosinophils % (A) 10 %; Glucose,Urine (UA) Negative (Negative); HCT 41.2 % (39.0-53.0); HGB 13.4 gm/dL (13.0-17.5); Ketones,Urine Negative (Negative); Leukocyte Esterase,Urine Negative (Negative); Lymphocytes # (A) 2.5 k/uL (1.0-4.8); Lymphocytes % (A) 27 %; MCH 30.2 pg (25.0-35.0); MCHC 32.6 g/dL (31.0-37.0); MCV 92.8 fL (80.0-100.0); Mean Platelet Volume 6.2; Monocytes # (A) 0.4 k/uL (0-1.0); Monocytes % (A) 4 %; Neutrophils # (A) 5.3 k/uL (1.3-7.7); Neutrophils % (A) 58 %; Nitrite,Urine Negative (Negative); PH, Urine 6.5 (5.0-8.0); Platelet Count 248 k/uL (150-450); Protein,Urine Negative (Negative); RBC 4.44 m/uL (4.30-5.90); RDW 12.5 % (11.5-15.5); Specific Gravity,Urine 1.014 (1.001-1.035); Urobilinogen,Urine <2.0 mg/dL (<2.0); WBC 9.2 k/uL (3.8-10.6)
[2018-07-21 02:46] LABS: INR 1.1 (<1.2); Partial Thromboplastin Time 25.2 sec (22.0-30.0); Prothrombin Time 10.4 sec (9.0-12.0)
[2018-07-21 02:48] LABS: ALT 20 U/L (21-72); AST 17 U/L (17-59); Albumin 4.5 g/dL (3.5-5.0); Alcohol <10 mg/dL; Alkaline Phosphatase 108 U/L (38-126); Anion Gap 12 mmol/L; Blood Urea Nitrogen 8 mg/dL (9-20); Calcium 9.5 mg/dL (8.4-10.2); Carbon Dioxide 22 mmol/L (22-30); Chloride 105 mmol/L (98-107); Glucose 115 mg/dL (74-99); Potassium 3.8 mmol/L (3.5-5.1); Sodium 139 mmol/L (137-145); Total Bilirubin 0.2 mg/dL (0.2-1.3); Total Protein 7.8 g/dL (6.3-8.2)
[2018-07-21 02:53] LABS: Amphetamine Screen,Urine Not Detected (NotDetected); Barbiturate Screen,Urine Detected (NotDetected); Benzodiazepines Screen,Urine Not Detected (NotDetected); Cocaine Screen,Urine Not Detected (NotDetected); Methadone Screen, Urine Not Detected (NotDetected); Opiate Screen,Urine Not Detected (NotDetected); Oxycodone Screen, Urine Not Detected (NotDetected); Phencyclidine Screen,Urine Not Detected (NotDetected); Tricyclic Antidepressant,Urine Not Detected (NotDetected); Urn Cannabinoid Scrn Not Detected (NotDetected)
--- NOTE | 2018-07-21 03:03 | CT ---
EXAMINATION TYPE: CT angio neck DATE OF EXAM: 07/21/2018 HISTORY: No prior, attempted hanging COMPARISON: CT DLP: 504.90 mGycm. Automated Exposure Control for Dose Reduction was Utilized. TECHNIQUE: CTA scan of the neck is performed with IV Contrast, patient injected with 65 mL of Isovue 370, axial images are obtained, coronal and sagittal reformatted images are reviewed. Three-D recons tructed images are created on an independent workstation and reviewed. FINDINGS: There is normal branching pattern of the great vessels on the aortic arch. There is no evidence of an eurysm or dissection of the aortic arch. There is arterial flow in both vertebral arteries. There is arterial flow in the common internal and external carotid arteries bilaterally. Carotid arteries are widely patent. There is normal contrast o pacification of the jugular veins. There is no evidence of carotid or vertebral artery aneurysm or di ssection. There is no evidence of stenosis. Cervical soft tissues are unremarkable. There is no adeno meir. Epiglottis is normal. There is no evidence of pharyngeal mass. The trachea appears normal. IMPRESSION: Negative CT angiogram of the neck.
--- NOTE | 2018-07-21 03:04 | XR ---
EXAMINATION TYPE: XR thoracic spine 2V DATE OF EXAM: 07/21/2018 COMPARISON: 08/24/2017 HISTORY: Back pain TECHNIQUE: 3 views FINDINGS: Thoracic vertebra have normal spacing and alignment. Posterior elements are intact. There i s no evidence of a fracture. There is no thoracic paraspinal mass. IMPRESSION: Normal thoracic spine exam.
[2018-07-21] MEDS ORDERED: MAGNESIUM HYDROXIDE 2,400 MG/10 ML CUP PO PRN (04:15)
[2018-07-21] MEDS ORDERED: MAG HYDROX/AL HYDROX/SIMETH 30 ML CUP PO PRN (04:15)
[2018-07-21 06:16] VITALS: BMI 25.7
[2018-07-21] MEDS: LEVOTHYROXINE 50 MCG TAB PO SCH (08:42)
[2018-07-21] MEDS: LACOSAMIDE 50 MG TABLET PO SCH ×2 (08:42→20:15)
[2018-07-21] MEDS: LITHIUM CARBONATE 300 MG CAP PO SCH ×2 (08:43→20:16)
[2018-07-21] MEDS: NICOTINE 14MG/24HR PATCH TRANSDERM SCH (08:43)
[2018-07-21] MEDS: lamoTRIgine 100 MG TAB PO SCH ×2 (08:43→20:16)
[2018-07-21] MEDS ORDERED: VENLAFAXINE HCL ER 75 MG CAP PO SCH (09:00)
[2018-07-21] MEDS ORDERED: hydrOXYzine PAMOATE 25 MG CAP PO PRN (11:09)
[2018-07-21 11:16] LABS: Carbamazepine (Tegretol) 5.3 ug/mL; Lithium 0.5 mmol/L
--- NOTE | 2018-07-21 11:17 | P.HP ---
Psychiatric H&P - . H&P Date: 07/21/18 History & Physical: Allergies Allergy/AdvReac Type Severity Reaction Status Date / Time No Known Allergies Allergy Verified 07/21/18 08:01 Vital Signs Temp 98.8 F 07/21/18 05:45 Pulse 75 07/21/18 05:45 Resp 18 07/21/18 05:45 BP 119/76 07/21/18 05:45 Pulse Ox 95 07/21/18 04:40 Intake & Output 07/20/18 07/21/18 07/21/18 18:59 06:59 18:59 Weight 83.915 kg Laboratory Last Values WBC 9.2 k/uL (3.8-10.6) 07/21/18 02:20 RBC 4.44 m/uL (4.30-5.90) 07/21/18 02:20 Hgb 13.4 gm/dL (13.0-17.5) 07/21/18 02:20 Hct 41.2 % (39.0-53.0) 07/21/18 02:20 MCV 92.8 fL (80.0-100.0) 07/21/18 02:20 MCH 30.2 pg (25.0-35.0) 07/21/18 02:20 MCHC 32.6 g/dL (31.0-37.0) 07/21/18 02:20 RDW 12.5 % (11.5-15.5) 07/21/18 02:20 Plt Count 248 k/uL (150-450) 07/21/18 02:20 Neutrophils % 58 % 07/21/18 02:20 Lymphocytes % 27 % 07/21/18 02:20 Monocytes % 4 % 07/21/18 02:20 Eosinophils % 10 % 07/21/18 02:20 Basophils % 0 % 07/21/18 02:20 Neutrophils # 5.3 k/uL (1.3-7.7) 07/21/18 02:20 Lymphocytes # 2.5 k/uL (1.0-4.8) 07/21/18 02:20 Monocytes # 0.4 k/uL (0-1.0) 07/21/18 02:20 Eosinophils # 0.9 k/uL (0-0.7) H 07/21/18 02:20 Basophils # 0.0 k/uL (0-0.2) 07/21/18 02:20 PT 10.4 sec (9.0-12.0) 07/21/18 02:20 INR 1.1 (<1.2) 07/21/18 02:20 APTT 25.2 sec (22.0-30.0) 07/21/18 02:20 Sodium 139 mmol/L (137-145) 07/21/18 02:20 Potassium 3.8 mmol/L (3.5-5.1) 07/21/18 02:20 Chloride 105 mmol/L (98-107) 07/21/18 02:20 Carbon Dioxide 22 mmol/L (22-30) 07/21/18 02:20 Anion Gap 12 mmol/L 07/21/18 02:20 BUN 8 mg/dL (9-20) L 07/21/18 02:20 Creatinine 0.75 mg/dL (0.66-1.25) 07/21/18 02:20 Est GFR (CKD-EPI)AfAm >90 (>60 ml/min/1.73 sqM) 07/21/18 02:20 Est GFR (CKD-EPI)NonAf >90 (>60 ml/min/1.73 sqM) 07/21/18 02:20 Glucose 115 mg/dL (74-99) H 07/21/18 02:20 Calcium 9.5 mg/dL (8.4-10.2) 07/21/18 02:20 Total Bilirubin 0.2 mg/dL (0.2-1.3) 07/21/18 02:20 AST 17 U/L (17-59) 07/21/18 02:20 ALT 20 U/L (21-72) L 07/21/18 02:20 Alkaline Phosphatase 108 U/L (38-126) 07/21/18 02:20 Troponin I <0.012 ng/mL (0.000-0.034) 07/21/18 02:20 Total Protein 7.8 g/dL (6.3-8.2) 07/21/18 02:20 Albumin 4.5 g/dL (3.5-5.0) 07/21/18 02:20 Urine Color Yellow 07/21/18 02:20 Urine Appearance Clear (Clear) 07/21/18 02:20 Urine pH 6.5 (5.0-8.0) 07/21/18 02:20 Ur Specific [place] 1.014 (1.001-1.035) 07/21/18 02:20 Urine Protein Negative (Negative) 07/21/18 02:20 Urine Glucose (UA) Negative (Negative) 07/21/18 02:20 Urine Ketones Negative (Negative) 07/21/18 02:20 Urine Blood Negative (Negative) 07/21/18 02:20 Urine Nitrite Negative (Negative) 07/21/18 02:20 Urine Bilirubin Negative (Negative) 07/21/18 02:20 Urine Urobilinogen <2.0 mg/dL (<2.0) 07/21/18 02:20 Ur Leukocyte Esterase Negative (Negative) 07/21/18 02:20 Urine Opiates Screen Not Detected (NotDetected) 07/21/18 02:20 Ur Oxycodone Screen Not Detected (NotDetected) 07/21/18 02:20 Urine Methadone Screen Not Detected (NotDetected) 07/21/18 02:20 Ur Propoxyphene Screen Not Detected (NotDetected) 07/21/18 02:20 Ur Barbiturates Screen Detected (NotDetected) H 07/21/18 02:20 U Tricyclic Antidepress Not Detected (NotDetected) 07/21/18 02:20 Ur Phencyclidine Scrn Not Detected (NotDetected) 07/21/18 02:20 Ur Amphetamines Screen Not Detected (NotDetected) 07/21/18 02:20 U Methamphetamines Scrn Not Detected (NotDetected) 07/21/18 02:20 U Benzodiazepines Scrn Not Detected (NotDetected) 07/21/18 02:20 Urine Cocaine Screen Not Detected (NotDetected) 07/21/18 02:20 U Marijuana (THC) Screen Not Detected (NotDetected) 07/21/18 02:20 Serum Alcohol <10 mg/dL 07/21/18 02:20 Blood Type A Negative 07/21/18 02:20 Blood Type Confirm A Negative 07/21/18 02:10 Blood Type Recheck CABO Indicated 07/21/18 02:20 Antibody Screen NEGATIVE 07/21/18 02:20 Spec Expiration Date 07/24/2018 - 231907/21/18 02:20 Assessment and Plan Assessment: Because a 28-year-old male with an extensive psychiatric history who presents the ED today in police custody for evaluation of suicide attempt. Patient reports that he took an electric extension cord wrapped around his neck in an attempt to kill himself. Patient reports that he was in the seated position doing this. He was not hanging from anything. He did not have a fall or any tension on the neck. He reports that he just slumped down from a sitting position hoping this would choke him. He reports he was in this position for 5- 10 minutes. He did not lose consciousness. Patient was recently admitted to our psychiatric facility approximately a week ago. Home Medications Medication Instructions Recorded Confirmed carBAMazepine [TEGretol XR] 400 mg PO HS 11/02/17 07/20/18 Brexpiprazole [Rexulti] 2 mg PO HS 03/03/18 07/20/18 Lacosamide [Vimpat] 100 mg PO BID 03/03/18 07/20/18 Levothyroxine Sodium [Synthroid] 50 mcg PO DAILY 03/03/18 07/20/18 [place] Carbonate 600 mg PO BID 03/03/18 07/20/18 Venlafaxine HCl [Venlafaxine HCl 225 mg PO DAILY 03/03/18 07/20/18 ER] carBAMazepine [TEGretol XR] 200 mg PO BID 07/06/18 07/20/18 Previous Rx's Medication Instructions Recorded PHENobarbital 97.2 mg PO HS #14 tablet 07/24/17 lamoTRIgine [LaMICtal] 200 mg PO BID #28 tablet 07/24/17 Allergies Allergy/AdvReac Type Severity Reaction Status Date / Time No Known Allergies Allergy Verified 07/21/18 01:37 Past Medical History Past Medical History: GERD/Reflux, Seizure Disorder, Thyroid Disorder Additional Past Medical History / Comment(s): has history of epilepsy LAST SEIZURE 06/30/18, major depression. hx grand mal seizures since childhood, History of Any Multi-Drug Resistant Organisms: None Reported Past Surgical History: Adenoidectomy, Appendectomy, Cholecystectomy, Tonsillectomy Additional Past Surgical History / Comment(s): Patient is not sure if he had appendectomy or no Past Anesthesia/Blood Transfusion Reactions: Previous Problems w/ Anesthesia Additional Past Anesthesia/Blood Transfusion Reaction / Comment(s): SLOW TO WAKE FROM ANESTHESIA" Past Psychological History: Depression Smoking Status: Never smoker Past Alcohol Use History: None Reported Past Drug Use History: None Reported - Past Family History Brother(s) Family Medical History: Asthma Additional Family Medical History / Comment(s): back problems Mother Family Medical History: Cancer Additional Family Medical History / Comment(s): breast cancer HPI: The patient is well known to the psychiatric service as he has had numerous admissions. He states that he feels overwhelmed that he cannot support his son financially. The patient has not been able to maintain employment. 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 He continues to indicate that he argues with his frequently and does not know if he should stay to her. They have a 2-year-old son together at this time. They frequently fight about money. He reports he has difficulty finding work because of a recent legal charge for malicious destruction of property. He is currently on probation. The patient does have a history of depression in the context of intellectual disability and seizure disorder. The patient is endorsing no homicidal ideation. He specifically states he has no thoughts of wanting to hurt his or son. He does feel safe here in the hospital. He is indicating no symptoms of psychosis. I have not been aware of him having a hypomanic or manic episode in the past but with other hospitalizations he was diagnosed with bipolar disorder. PAST PSYCHIATRIC HISTORY: The patient has had numerous psychiatric admissions ever since he age of 18. He has had suicidal ideation numerous times I am not aware of any actual attempts. PMH: Epilepsy he is prescribed phenobarbital, Tegretol, Lamictal he reports his most recent seizure was 1.5 years ago ALLERGIES: NO KNOWN DRUG ALLERGIES MEDICATIONS: Refer to MAR CHEMICAL DEPENDENCY HISTORY: The patient reports using alcohol every 2 days having 1-2 drinks, he reports no use of marijuana or other illicit drugs. He has never been placed in residential treatment for chemical dependency reasons. FAMILY PSYCHIATRIC HISTORY: None reported no suicides in the family FAMILY CHEMICAL DEPENDENCY HISTORY: None Reported SOCIAL HISTORY: The patient is 28 years old he's been for approximate 5 years. He has a contentious relationship with his . They have a 2-year- old son together. The patient has 1 brother and 2 sisters and 2 stepsisters. He currently has a guardian. He completed high school and did have a history of special education due to his intellectual disability. He struggles with maintaining employment. He is on a social security disability income as well as his . His guardian is his payee. Abuse history none reported, legal history he is on probation until 2019 due to a charge of malicious destruction of property and a prior charge of domestic violence. MENTAL STATUS EXAM: The patient is a 28 year old male who is alert he has a disheveled appearance hygiene is impaired. He is dressed in his own clothing. He has poor dentition and since I've seen him last more fracturing of his teeth. He does wear his eyeglasses. He reports a depressed hopeless mood with suicidal ideation. He is tearful throughout the session. He reports suicidal ideation with no homicidal ideation intent or plan. He is endorsing no auditory or visual hallucinations he is endorsing no specific delusions. Thought process is linear he demonstrates no tangential thinking loose associations or flight of ideas. He does not appear hypomanic or manic. He is oriented to person place and date. He is able to name the days of the week backwards. STRENGTHS/WEAKNESSES: Strengths: Guardianship, disability income, he has a residence to return to weaknesses: Ongoing discord with spouse I need she'll constraints due to inability to maintain employment INTELLECTUAL FUNCTIONING: Intellectual disability IMPRESSIONS: [] 1. Major depressive disorder recurrent severe without psychosis rule out bipolar depression, rule out alcohol use disorder, intellectual disability 2. Borderline personality disorder traits 3. Epilepsy PLAN: We will continue his medicines for epilepsy including Lamictal Tegretol and phenobarbital. He will be seen by internal medicine for routine history and physical exam. Social work will meet with the patient to complete a psychosocial assessment. We will monitor him for safety and encourage his participation in the milieu. We will likely initiate a different vistaril medication for him after reviewing past trials and available options and increase Effexorr 300 mgXR po qd. (1) Suicidal ideation Current Visit: Yes Status: Acute Priority: High Code(s): R45.851 - SUICIDAL IDEATIONS SNOMED Code(s): 7639137 (2) Generalized seizure Current Visit: No Status: Acute Priority: Low Code(s): R56.9 - UNSPECIFIED CONVULSIONS SNOMED Code(s): 014998132 (3) Intellectual disability Current Visit: Yes Status: Acute Priority: Medium Code(s): F79 - UNSPECIFIED INTELLECTUAL DISABILITIES SNOMED Code(s): 296294379 (4) Major depressive disorder, recurrent severe without psychotic features Current Visit: Yes Status: Acute Priority: Medium Code(s): F33.2 - MAJOR DEPRESSV DISORDER, RECURRENT SEVERE W/O PSYCH FEATURES SNOMED Code(s): 71565196 Plan: PLAN: We will continue his medicines for epilepsy including Lamictal Tegretol and phenobarbital. He will be seen by internal medicine for routine history and physical exam. Social work will meet with the patient to complete a psychosocial assessment. We will monitor him for safety and encourage his participation in the milieu. We will likely initiate a different vistaril medication for him after reviewing past trials and available options and increase Effexorr 300 mgXR po qd. Time with Patient: Less than 30
--- NOTE | 2018-07-21 13:35 | P.CONS ---
History of Present Illness - History of Present Illness Patient declined to see me and only wanted to see his female primary care physician. Past Medical History Past Medical History: GERD/Reflux, Seizure Disorder, Thyroid Disorder Additional Past Medical History / Comment(s): has history of epilepsy LAST SEIZURE 06/30/18, major depression. hx grand mal seizures since childhood, History of Any Multi-Drug Resistant Organisms: None Reported Past Surgical History: Adenoidectomy, Appendectomy, Cholecystectomy, Tonsillectomy Additional Past Surgical History / Comment(s): Patient is not sure if he had appendectomy or no Past Anesthesia/Blood Transfusion Reactions: Previous Problems w/ Anesthesia Additional Past Anesthesia/Blood Transfusion Reaction / Comm: SLOW TO WAKE FROM ANESTHESIA" Smoking Status: Never smoker - Past Family History Brother(s) Family Medical History: Asthma Additional Family Medical History / Comment(s): back problems Mother Family Medical History: Cancer Additional Family Medical History / Comment(s): breast cancer Medications and Allergies Home Medications Medication Instructions Recorded Confirmed Type PHENobarbital 97.2 mg PO HS #14 tablet 07/24/17 07/21/18 Rx lamoTRIgine [LaMICtal] 200 mg PO BID #28 tablet 07/24/17 07/21/18 Rx carBAMazepine [TEGretol XR] 400 mg PO HS 11/02/17 07/21/18 History Brexpiprazole [Rexulti] 2 mg PO HS 03/03/18 07/21/18 History Lacosamide [Vimpat] 100 mg PO BID 03/03/18 07/21/18 History Levothyroxine Sodium [Synthroid] 50 mcg PO DAILY 03/03/18 07/21/18 History [place] Carbonate 600 mg PO BID 03/03/18 07/21/18 History Venlafaxine HCl [Venlafaxine HCl 225 mg PO DAILY 03/03/18 07/21/18 History ER] carBAMazepine [TEGretol XR] 200 mg PO BID 07/06/18 07/21/18 History Ibuprofen [Motrin] 800 mg PO Q8H PRN 07/21/18 07/21/18 History Allergies Allergy/AdvReac Type Severity Reaction Status Date / Time No Known Allergies Allergy Verified 07/21/18 08:01 Physical Exam Vitals: Vital Signs Temp Pulse Pulse Resp BP BP Pulse Ox 07/21/18 05:45 98.8 F 75 18 119/76 07/21/18 04:40 85 119/81 95 07/21/18 04:24 86 15 119/81 95 07/21/18 01:36 98.8 F 90 18 131/87 98 Intake and Output 07/20/18 07/21/18 07/21/18 22:59 06:59 14:59 Other: Weight 83.915 kg Results CBC & Chem 7: 07/21/18 02:20 07/21/18 02:20 Labs: Abnormal Lab Results - Last 24 Hours (Table) 07/21/18 07/21/18 07/21/18 Range/Units 02:20 02:20 02:20 Eosinophils # 0.9 H (0-0.7) k/uL BUN 8 L (9-20) mg/dL Glucose 115 H (74-99) mg/dL ALT 20 L (21-72) U/L Triglycerides (<150) mg/dL HDL Cholesterol (40-60) mg/dL Ur Barbiturates Screen Detected H (NotDetected) 07/21/18 Range/Units 02:20 Eosinophils # (0-0.7) k/uL BUN (9-20) mg/dL Glucose (74-99) mg/dL ALT (21-72) U/L Triglycerides 289 H (<150) mg/dL HDL Cholesterol 34 L (40-60) mg/dL Ur Barbiturates Screen (NotDetected)
[2018-07-21 20:34] LABS: Hemoglobin A1C 4.9 % (4.0-6.0)
[2018-07-22] MEDS: ACETAMINOPHEN TAB 325 MG TAB PO PRN ×2 (03:49→20:49)
[2018-07-22] MEDS: LEVOTHYROXINE 50 MCG TAB PO SCH (05:31)
[2018-07-22] MEDS: lamoTRIgine 100 MG TAB PO SCH ×2 (07:51→20:46)
[2018-07-22] MEDS: LACOSAMIDE 50 MG TABLET PO SCH ×2 (07:51→20:48)
[2018-07-22] MEDS: VENLAFAXINE HCL ER 150 MG CAP PO SCH (07:51)
[2018-07-22] MEDS: LITHIUM CARBONATE 300 MG CAP PO SCH ×2 (07:52→20:45)
[2018-07-22] MEDS: NICOTINE 14MG/24HR PATCH TRANSDERM SCH (07:53)
--- NOTE | 2018-07-22 11:15 | P.PN ---
Subjective Progress Note Date: 07/22/18 Principal diagnosis: bipolar I feel better and no thoughts of killing himself. Objective - Vital Signs Vital signs: Vital Signs Temp 98.2 F 07/22/18 05:56 Pulse 73 07/22/18 05:56 Resp 18 07/22/18 05:56 BP 113/77 07/22/18 05:56 Pulse Ox 95 07/21/18 04:40 - Labs CBC & Chem 7: 07/21/18 02:20 07/21/18 02:20 Labs: Abnormal Lab Results - Last 24 Hours (Table) 07/21/18 Range/Units 02:20 Triglycerides 289 H (<150) mg/dL HDL Cholesterol 34 L (40-60) mg/dL Assessment and Plan Assessment: MENTAL STATUS EXAM: The patient is a 28 year old male who is alert he has a disheveled appearance hygiene is impaired. He is dressed in his own clothing. He has poor dentition and since I've seen him last more fracturing of his teeth. He does wear his eyeglasses. He reports a depressed hopeless mood with suicidal ideation. He is tearful throughout the session. He reports suicidal ideation with no homicidal ideation intent or plan. He is endorsing no auditory or visual hallucinations he is endorsing no specific delusions. Thought process is linear he demonstrates no tangential thinking loose associations or flight of ideas. He does not appear hypomanic or manic. He is oriented to person place and date. He is able to name the days of the week backwards. STRENGTHS/WEAKNESSES: Strengths: Guardianship, disability income, he has a residence to return to weaknesses: Ongoing discord with spouse I need she'll constraints due to inability to maintain employment INTELLECTUAL FUNCTIONING: Intellectual disability IMPRESSIONS: [] 1. Major depressive disorder recurrent severe without psychosis rule out bipolar depression, rule out alcohol use disorder, intellectual disability 2. Borderline personality disorder traits 3. Epilepsy PLAN: We will continue his medicines for epilepsy including Lamictal Tegretol and phenobarbital. He will be seen by internal medicine for routine history and physical exam. Social work will meet with the patient to complete a psychosocial assessment. We will monitor him for safety and encourage his participation in the milieu. We will likely initiate a different vistaril medication for him after reviewing past trials and available options and increase Effexorr 300 mg XR po qd. (1) Suicidal ideation Current Visit: Yes Status: Acute Priority: High Code(s): R45.851 - SUICIDAL IDEATIONS SNOMED Code(s): 9093030 (2) Generalized seizure Current Visit: No Status: Acute Priority: Low Code(s): R56.9 - UNSPECIFIED CONVULSIONS SNOMED Code(s): 160320333 (3) Intellectual disability Current Visit: Yes Status: Acute Priority: Medium Code(s): F79 - UNSPECIFIED INTELLECTUAL DISABILITIES SNOMED Code(s): 788395349 (4) Major depressive disorder, recurrent severe without psychotic features Current Visit: Yes Status: Acute Priority: Medium Code(s): F33.2 - MAJOR DEPRESSV DISORDER, RECURRENT SEVERE W/O PSYCH FEATURES SNOMED Code(s): 83379378 Plan: PLAN: We will continue his medicines for epilepsy including Lamictal Tegretol and phenobarbital. He will be seen by internal medicine for routine history and physical exam. Social work will meet with the patient to complete a psychosocial assessment. We will monitor him for safety and encourage his participation in the milieu. We will likely initiate a different vistaril medication for him after reviewing past trials and available options and increase Effexorr 300 mgXR po qd. Time with Patient: Less than 30
[2018-07-23] MEDS: LEVOTHYROXINE 50 MCG TAB PO SCH (06:12)
[2018-07-23] MEDS: lamoTRIgine 100 MG TAB PO SCH (08:25)
[2018-07-23] MEDS: LITHIUM CARBONATE 300 MG CAP PO SCH (08:25)
[2018-07-23] MEDS: VENLAFAXINE HCL ER 150 MG CAP PO SCH (08:26)
[2018-07-23] MEDS: LACOSAMIDE 50 MG TABLET PO SCH (08:26)
[2018-07-23] MEDS: NICOTINE 14MG/24HR PATCH TRANSDERM SCH (08:31)
[2018-07-23] MEDS ORDERED: LORazepam 1 MG TAB PO STA (09:13)
[2018-07-23 09:19] VITALS: BP 132/81; PULSE 98; RESP 20; TEMP 98.3
--- NOTE | 2018-07-23 11:07 | P.DS ---
Providers Date of admission: 07/21/18 04:01 Expected date of discharge: 07/23/18 Attending physician: Mazin Martin DO Consults: 07/21/18 04:15 Consult Physician Routine Consulting Provider: Juliana Bennett Consult Reason/Comments: medical management Do you want consulting provider notified?: Yes, Notify in am Primary care physician: [facility] - Discharge Diagnosis(es) (1) Suicidal ideation HPI: Because a 28-year-old male with an extensive psychiatric history who presents the ED today in police custody for evaluation of suicide attempt. Patient reports that he took an electric extension cord wrapped around his neck in an attempt to kill himself. Patient reports that he was in the seated position doing this. He was not hanging from anything. He did not have a fall or any tension on the neck. He reports that he just slumped down from a sitting position hoping this would choke him. He reports he was in this position for 5- 10 minutes. He did not lose consciousness. Patient was recently admitted to our psychiatric facility approximately a week ago. Home Medications Medication Instructions Recorded Confirmed carBAMazepine [TEGretol XR] 400 mg PO HS 11/02/17 07/20/18 Brexpiprazole [Rexulti] 2 mg PO HS 03/03/18 07/20/18 Lacosamide [Vimpat] 100 mg PO BID 03/03/18 07/20/18 Levothyroxine Sodium [Synthroid] 50 mcg PO DAILY 03/03/18 07/20/18 [place] Carbonate 600 mg PO BID 03/03/18 07/20/18 Venlafaxine HCl [Venlafaxine HCl 225 mg PO DAILY 03/03/18 07/20/18 ER] carBAMazepine [TEGretol XR] 200 mg PO BID 07/06/18 07/20/18 Summary of hospital course: The patient was admitted to the mental health unit voluntarily. We reviewed his presenting symptoms and medication options. The initially indicated that the Trintellix had not been providing sufficient relief and this led him to discontinuing it practically in the recent past. He reported complying with a wreck salty as he was taking his bedtime medications but was not aware of any benefit from that medication. We discussed medication options. He was particular concern with anxiety symptoms that seem to be ongoing. We decided to trial Zoloft as he had not yet been on that medication. The patient was continued on lithium his lithium level was within normal range. Tegretol level was in the therapeutic range as well. The patient indicates today that he no longer has any suicidal ideation and he feels he can manage his behavior. He wishes to continue working with his outpatient therapist and psychiatrist. Was hospitalized by increase of venlafaxine from 225 mg by mouth daily to 300 mg by mouth daily. Usual medical workup was completed with no significant finding. Past Medical History Past Medical History: GERD/Reflux, Seizure Disorder, Thyroid Disorder Additional Past Medical History / Comment(s): has history of epilepsy LAST SEIZURE 06/30/18, major depression. hx grand mal seizures since childhood, History of Any Multi-Drug Resistant Organisms: None Reported Past Surgical History: Adenoidectomy, Appendectomy, Cholecystectomy, Tonsillectomy Additional Past Surgical History / Comment(s): Patient is not sure if he had appendectomy or no Past Anesthesia/Blood Transfusion Reactions: Previous Problems w/ Anesthesia Additional Past Anesthesia/Blood Transfusion Reaction / Comm: SLOW TO WAKE FROM ANESTHESIA" Smoking Status: Never smoker Mental status examination The patient presents alert, pleasant, and cooperative. There calmly seated without any agitated behavior. [He] reports that [his] mood is good. Affect is congruent and euthymic. [He] deny having any suicidal or homicidal ideation intent or plan. [He] denies any auditory or visual hallucinations. There is no evidence of any delusional thought content. [His] thought process is linear and goal-directed. [His] speech is fluent and nonpressured. [His] memory and concentration is grossly intact for the purposes of this session. Impressions 1. Major depressive disorder recurrent severe without psychosis rule out bipolar depression, rule out alcohol use disorder, intellectual disability 2. Borderline personality disorder traits 3. Epilepsy Plan: The patient will be discharged mental health unit to return home. Social work will arrange his outpatient follow-up with [facility]. The patient's plans on resuming Trintellix 20 mg daily he will continue on lithium 900 mg at bedtime. I agree that the lithium would be best given 300 mg 3 times daily however the patient is very unlikely to comply with that. When he meets with his outpatient psychiatrist they can decide if they are going to resume the Rexulti. He will continue on his medications for seizure control including Lamictal Tegretol and phenobarbital. He is instructed to abstain from any use of alcohol or any illicit drugs. He was also increased on venlafaxine to 300 mg XR by mouth daily. Current Visit: Yes Status: Acute Priority: Low (2) Generalized seizure Current Visit: No Status: Acute Priority: Low (3) Intellectual disability Current Visit: Yes Status: Acute Priority: Low (4) Major depressive disorder, recurrent severe without psychotic features Current Visit: Yes Status: Acute Priority: Low Patient Condition at Discharge: Stable Plan - Discharge Summary Discharge Rx Participant: Yes New Discharge Prescriptions: New lamoTRIgine [LaMICtal] 200 mg PO BID tab Venlafaxine HCl ER [Effexor XR] 300 mg PO DAILY 30 Days #60 cap.er.24h Continue PHENobarbital 97.2 mg PO HS #14 tablet lamoTRIgine [LaMICtal] 200 mg PO BID #28 tablet carBAMazepine [TEGretol XR] 400 mg PO HS Lacosamide [Vimpat] 100 mg PO BID Brexpiprazole [Rexulti] 2 mg PO HS [place] Carbonate 600 mg PO BID Levothyroxine Sodium [Synthroid] 50 mcg PO DAILY carBAMazepine [TEGretol XR] 200 mg PO BID Discontinued Venlafaxine HCl [Venlafaxine HCl ER] 225 mg PO DAILY Ibuprofen [Motrin] 800 mg PO Q8H PRN PRN Reason: Pain Discharge Medication List PHENobarbital 97.2 mg PO HS #14 tablet 07/24/17 [Rx] lamoTRIgine [LaMICtal] 200 mg PO BID #28 tablet 07/24/17 [Rx] carBAMazepine [TEGretol XR] 400 mg PO HS 11/02/17 [History] Brexpiprazole [Rexulti] 2 mg PO HS 03/03/18 [History] Lacosamide [Vimpat] 100 mg PO BID 03/03/18 [History] Levothyroxine Sodium [Synthroid] 50 mcg PO DAILY 03/03/18 [History] [place] Carbonate 600 mg PO BID 03/03/18 [History] carBAMazepine [TEGretol XR] 200 mg PO BID 07/06/18 [History] Venlafaxine HCl ER [Effexor XR] 300 mg PO DAILY 30 Days #60 cap.er.24h 07/23/18 [Rx] lamoTRIgine [LaMICtal] 200 mg PO BID tab 07/23/18 [Rx] Follow up Appointment(s)/Referral(s): [facility] [Outside] - 07/29/18 1:00 pm (07-29-18 @ 1:00 with Lashon Joe 07-30-18 @ 12:[address] Slater ) [facility] [Primary Care Provider] - 1-2 days Discharge Disposition: HOME SELF-CARE
== END 2018-07-23 12:56 | disposition home or self-care (01) | DRG 885 ==
LOC: EC 01:25 → 3MHU 04:01
PROVIDERS: ADMIT Psychiatry & Neurology Psychiatry; ATTEND Psychiatry & Neurology Psychiatry
DX: F33.2 Major depressive disorder, recurrent severe without psychotic features (principal); R45.851 Suicidal ideations; F60.3 Borderline personality disorder; F31.9 Bipolar disorder, unspecified; F79 Unspecified intellectual disabilities; G40.409 Other generalized epilepsy and epileptic syndromes, not intractable, without status epilepticus; K21.9 Gastro-esophageal reflux disease without esophagitis; E07.9 Disorder of thyroid, unspecified; Z72.89 Other problems related to lifestyle; Z79.890 Hormone replacement therapy; Z79.899 Other long term (current) drug therapy; Z90.49 Acquired absence of other specified parts of digestive tract; Z65.3 Problems related to other legal circumstances; Z80.3 Family history of malignant neoplasm of breast; Z82.5 Family history of asthma and other chronic lower respiratory diseases
CPT/HCPCS: 36415; 70498; 72070; 80053; 80061; 80156; 80178; 80306; 80320; 81003; 83036; 84443; 84484; 85025; 85610; 85730; 86850; 86900; 86901; 99285

== ENCOUNTER → 2018-08-11 | Outpatient (CLI) | payer MEDICARE, MEDICAID ==
[2018-08-11 17:03] LABS: LDL Cholesterol,Calculated 103.8 mg/dL (0.0-131.0); Lithium 0.6 mmol/L (1.0-1.2); T4, Free (Free Thyroxine) 0.8 ng/dL (0.80-1.80); VLDL Calculation 20.2 mg/dL (5.00-40.00)
[2018-08-11 18:39] LABS: Hemoglobin A1C 4.9 % (4.0-6.0)
== END | disposition home or self-care (01) ==
LOC: LABWHC1 11:11
PROVIDERS: ATTEND Psychiatry & Neurology Psychiatry
DX: Z51.81 Encounter for therapeutic drug level monitoring (principal); Z79.899 Other long term (current) drug therapy
CPT/HCPCS: 36415; 80061; 80178; 82565; 82947; 83036; 84439; 84443; 84520

== ENCOUNTER 2018-09-27 23:18 | Emergency (ER) | payer MEDICARE, OTHER ==
[2018-09-27 23:26] VITALS: TEMP 97.9
--- NOTE | 2018-09-27 23:58 | ED ---
Psych HPI - General Source: patient, police, RN notes reviewed Mode of arrival: ambulatory Limitations: no limitations <Harshad Carey - Last Filed: 09/28/18 02:26> <Maria Isabel Stafford - Last Filed: 10/02/18 02:18> - General Chief Complaint: Psychiatric Symptoms Stated Complaint: Mental Health Time Seen by Provider: 09/27/18 23:29 - History of Present Illness Initial Comments: 28-year-old male presents emergency Department with police for psychiatric evaluation. Patient states he is depressed and suicidal. He does admit that he did have an argument with his . Patient was found walking in the road was brought to emergency from by PD. Patient denies illicit drug use, alcohol use, homicidal ideation denies any physical complaints. He states he has not seen a current therapist or psychiatrist. (Harshad Carey) - Related Data Home Medications Medication Instructions Recorded Confirmed carBAMazepine [TEGretol XR] 400 mg PO HS 11/02/17 07/21/18 Brexpiprazole [Rexulti] 2 mg PO HS 03/03/18 07/21/18 Lacosamide [Vimpat] 100 mg PO BID 03/03/18 07/21/18 Levothyroxine Sodium [Synthroid] 50 mcg PO DAILY 03/03/18 07/21/18 [place] Carbonate 600 mg PO BID 03/03/18 07/21/18 carBAMazepine [TEGretol XR] 200 mg PO BID 07/06/18 07/21/18 Previous Rx's Medication Instructions Recorded PHENobarbital 97.2 mg PO HS #14 tablet 07/24/17 lamoTRIgine [LaMICtal] 200 mg PO BID #28 tablet 07/24/17 Venlafaxine HCl ER [Effexor XR] 300 mg PO DAILY 30 Days #60 07/23/18 cap.er.24h lamoTRIgine [LaMICtal] 200 mg PO BID tab 07/23/18 Allergies Allergy/AdvReac Type Severity Reaction Status Date / Time No Known Allergies Allergy Verified 09/27/18 23:26 Review of Systems ROS Other: All systems not noted in ROS Statement are negative. <Harshad Carey - Last Filed: 09/28/18 02:26> ROS Other: All systems not noted in ROS Statement are negative. <Maria Isabel Stafford P - Last Filed: 10/02/18 02:18> ROS Statement: Those systems with pertinent positive or pertinent negative responses have been documented in the HPI. Past Medical History Past Medical History: GERD/Reflux, Seizure Disorder, Thyroid Disorder Additional Past Medical History / Comment(s): has history of epilepsy LAST SEIZURE 06/30/18, major depression. hx grand mal seizures since childhood, History of Any Multi-Drug Resistant Organisms: None Reported Past Surgical History: Adenoidectomy, Appendectomy, Cholecystectomy, Tonsillectomy Additional Past Surgical History / Comment(s): Patient is not sure if he had appendectomy or no Past Anesthesia/Blood Transfusion Reactions: Previous Problems w/ Anesthesia Additional Past Anesthesia/Blood Transfusion Reaction / Comment(s): SLOW TO WAKE FROM ANESTHESIA" Past Psychological History: Depression Smoking Status: Never smoker Past Alcohol Use History: None Reported Past Drug Use History: None Reported - Past Family History Brother(s) Family Medical History: Asthma Additional Family Medical History / Comment(s): back problems Mother Family Medical History: Cancer Additional Family Medical History / Comment(s): breast cancer <Harshad Carey M - Last Filed: 09/28/18 02:26> General Exam Limitations: no limitations General appearance: alert, in no apparent distress Head exam: Present: atraumatic, normocephalic, normal inspection Eye exam: Present: normal appearance, PERRL, EOMI. Absent: scleral icterus, conjunctival injection, periorbital swelling ENT exam: Present: normal exam, normal oropharynx, mucous membranes moist Neck exam: Present: normal inspection. Absent: tenderness, meningismus, lymphadenopathy Respiratory exam: Present: normal lung sounds bilaterally. Absent: respiratory distress, wheezes, rales, rhonchi, stridor Cardiovascular Exam: Present: regular rate, normal rhythm, normal heart sounds. Absent: systolic murmur, diastolic murmur, rubs, gallop, clicks Neurological exam: Present: alert, oriented X3, CN II-XII intact Psychiatric exam: Present: depressed Skin exam: Present: warm, dry, intact, normal color. Absent: rash <Harshad Carey M - Last Filed: 09/28/18 02:26> Vital Signs 09/27/18 09/28/18 23:22 02:45 Temperature 97.9 F Pulse Rate 103 H 88 Respiratory 18 17 Rate Blood Pressure 131/79 93/50 O2 Sat by Pulse 98 98 Oximetry Medical Decision Making <Harshad Carey - Last Filed: 09/28/18 02:26> <Maria Isabel Stafford - Last Filed: 10/02/18 02:18> - Medical Decision Making 28-year-old male present emergency department for psychiatric evaluation patient was evaluated by EPS case discussed with psychiatrist recommends discharge with safety plan. (Harshad Carey) I was available for consultation in the emergency department. The history and physical exam were done by the Midlevel Provider. Medical decision making was done by the Midlevel Provider. The Midlevel Provider did not contact me for this patient's care. I was not directly involved in this patient's care. ( Maria Isabel Stafford) Disposition Is patient prescribed a controlled substance at d/c from ED?: No Time of Disposition: 02:27 <Harshad Carey - Last Filed: 09/28/18 02:26> <Maria Isabel Stafford - Last Filed: 10/02/18 02:18> Clinical Impression: Depression Disposition: HOME SELF-CARE Condition: Stable Instructions: Depression (ED) Additional Instructions: Please return to the Emergency Department if symptoms worsen or any other concerns. Referrals: [facility] [Primary Care Provider] - 1-2 days
[2018-09-28 02:46] VITALS: BP 93/50; PULSE 88; RESP 17
== END 2018-09-28 02:48 | disposition home or self-care (01) ==
LOC: EEVIPCON 23:18 → EC 23:18
DX: F32.9 Major depressive disorder, single episode, unspecified (principal); R45.851 Suicidal ideations; G40.909 Epilepsy, unspecified, not intractable, without status epilepticus; E07.9 Disorder of thyroid, unspecified; Z79.899 Other long term (current) drug therapy
CPT/HCPCS: 82075; 99285

== ENCOUNTER 2018-11-29 14:46 | Emergency (ER) | payer MEDICARE, OTHER ==
[2018-11-29] MEDS ORDERED: SODIUM CHLORIDE 0.9% 1,000 ML IV STA (14:53)
[2018-11-29 14:54] VITALS: BP 143/90
[2018-11-29 15:20] LABS: Basophils % (A) 0 %; Eosinophils # (A) 0.4 k/uL (0-0.7); Eosinophils % (A) 5 %; HCT 47.1 % (39.0-53.0); HGB 15.6 gm/dL (13.0-17.5); Lymphocytes # (A) 1.6 k/uL (1.0-4.8); Lymphocytes % (A) 19 %; MCH 31.1 pg (25.0-35.0); MCHC 33.2 g/dL (31.0-37.0); MCV 93.7 fL (80.0-100.0); Mean Platelet Volume 6.5; Monocytes # (A) 0.4 k/uL (0-1.0); Monocytes % (A) 5 %; Neutrophils # (A) 6.1 k/uL (1.3-7.7); Neutrophils % (A) 70 %; Platelet Count 267 k/uL (150-450); RBC 5.03 m/uL (4.30-5.90); RDW 12.5 % (11.5-15.5); WBC 8.6 k/uL (3.8-10.6)
[2018-11-29 15:32] LABS: ALT 25 U/L (21-72); AST 19 U/L (17-59); Albumin 5.2 g/dL (3.5-5.0); Alkaline Phosphatase 171 U/L (38-126); Anion Gap 15 mmol/L; Blood Urea Nitrogen 13 mg/dL (9-20); Calcium 10.3 mg/dL (8.4-10.2); Carbon Dioxide 20 mmol/L (22-30); Chloride 108 mmol/L (98-107); Glucose 129 mg/dL (74-99); Potassium 4.2 mmol/L (3.5-5.1); Sodium 143 mmol/L (137-145); Total Bilirubin 0.7 mg/dL (0.2-1.3); Total Protein 8.7 g/dL (6.3-8.2)
--- NOTE | 2018-11-29 15:37 | CT ---
EXAMINATION TYPE: CT brain andreia wo con DATE OF EXAM: 11/29/2018 COMPARISON: 06/24/2018 HISTORY: Seizures headache. Neck pain. CT DLP: 1364.4 mGycm Automated exposure control for dose reduction was used. TECHNIQUE: CT scan of the head and cervical spine are performed without contrast. FINDINGS: Ventricles of normal size. There is no mass effect nor midline shift. There is no sign of intracranial hemorrhage. The calvarium is intact. Cervical vertebra have normal spacing and alignment. Posterior elements are intact. Skull base is int act. Facet joints appear normal. Prevertebral soft tissues appear normal. IMPRESSION: Negative CT scan of the brain. No definite negative CT scan cervical spine.
--- NOTE | 2018-11-29 16:08 | XR ---
EXAMINATION TYPE: XR chest 2V DATE OF EXAM: 11/29/2018 COMPARISON: 03/10/2017 HISTORY: Seizure TECHNIQUE: Frontal and lateral views of the chest are obtained. FINDINGS: Heart and mediastinum are normal. Lungs are clear. Diaphragm is normal. Bony thorax is int act. IMPRESSION: Normal chest. No change.
--- NOTE | 2018-11-29 16:53 | ED ---
General Adult HPI - General Chief complaint: Seizure Stated complaint: Seizure Time Seen by Provider: 11/29/18 14:52 Source: patient, RN notes reviewed, old records reviewed Mode of arrival: EMS Limitations: no limitations - History of Present Illness Initial comments: 28-year-old male patient with past medical history of seizure disorder presents to ED after sustaining 2 tonic-clonic seizures at approximately 2pm. Patient reports that he did not take his seizure prophylaxis medications yesterday. Patient witnessed seizure. She reports that she heard a thud in the other room, patient was on the carpeted ground having a tonic-clonic seizure. Patient states that she did not see any obvious signs of secondary trauma. Unknown head trauma occurred. Patient states that she estimates the first seizure lasted approximately 3 minutes reports that pt had stopped siezing when another seizure occured that lasted approximately 1minute. Patient called 911 and he was transported to Hospital. Upon history taking patient is currently mildly post ictal, however is still alert and oriented 3 and answering questions appropriately. Denies headache, changes in vision, chest pain, shortness breath, abdominal pain, nausea vomiting diarrhea, fevers or chills. Systemic: Pt denies fatigue, myalgia, fever/chills, rash. Pt denies weakness, night sweats, weight loss. Neuro: Pt denies headache, visual disturbances, syncope or pre-syncope. HEENT: Pt denies ocular discharge or irritation, otalgia, rhinorrhea, pharyngitis or notable lymphadenopathy. Cardiopulmonary: Pt denies chest pain, SOB, heart palpitations, dyspnea on exertion. Abdominal/GI: Pt denies abdominal pain, n/v/d. : Pt denies dysuria, burning w/ urination, frequency/urgency. Denies new onset urinary or bowel incontinence. MSK: Pt denies myalgia, loss of strength or function in extremities. Neuro: Pt denies new onset weakness, paresthesias. - Related Data Home Medications Medication Instructions Recorded Confirmed carBAMazepine [TEGretol XR] 200 mg PO BID 11/02/17 11/29/18 Brexpiprazole [Rexulti] 2 mg PO HS 03/03/18 11/29/18 Lacosamide [Vimpat] 100 mg PO BID 03/03/18 11/29/18 Levothyroxine Sodium [Synthroid] 50 mcg PO DAILY 03/03/18 11/29/18 [place] Carbonate 600 mg PO BID 03/03/18 11/29/18 LORazepam [Ativan] 0.5 mg PO BID PRN 10/19/18 11/29/18 PHENobarbital 97.2 mg PO HS 10/19/18 11/29/18 carBAMazepine [TEGretol XR] 400 mg PO HS 10/19/18 11/29/18 Lisdexamfetamine Dimesylate 50 mg PO QAM 11/29/18 11/29/18 [Vyvanse] Previous Rx's Medication Instructions Recorded lamoTRIgine [LaMICtal] 200 mg PO BID #28 tablet 07/24/17 Venlafaxine HCl ER [Effexor XR] 300 mg PO DAILY 30 Days #60 07/23/18 cap.er.24h Allergies Allergy/AdvReac Type Severity Reaction Status Date / Time No Known Allergies Allergy Verified 11/29/18 16:18 Review of Systems ROS Statement: Those systems with pertinent positive or pertinent negative responses have been documented in the HPI. ROS Other: All systems not noted in ROS Statement are negative. Past Medical History Past Medical History: GERD/Reflux, Seizure Disorder, Skin Disorder, Thyroid Disorder Additional Past Medical History / Comment(s): has history of epilepsy LAST SEIZURE 12/23/17, hx grand mal seizures since childhood, migraines, acne, History of Any Multi-Drug Resistant Organisms: None Reported Past Surgical History: Adenoidectomy, Appendectomy, Cholecystectomy, Tonsillectomy Additional Past Surgical History / Comment(s): oral surgery Past Anesthesia/Blood Transfusion Reactions: Previous Problems w/ Anesthesia Additional Past Anesthesia/Blood Transfusion Reaction / Comment(s): SLOW TO WAKE FROM ANESTHESIA" Past Psychological History: Depression Smoking Status: Never smoker - Past Family History Brother(s) Family Medical History: Asthma Additional Family Medical History / Comment(s): back problems Mother Family Medical History: Cancer Additional Family Medical History / Comment(s): breast cancer General Exam - General Exam Comments Initial Comments: Constitutional: NAD, AOX3, Pt has pleasant affect. HEENT: NC/AT, trachea midline, neck supple, no lymphadenopathy. Posterior pharynx non erythematous, without exudates. External ears appear normal, without discharge. Mucous membranes moist. Eyes PERRLA, EOM intact. There is no scleral icterus. No pallor noted. Cardiopulmonary: RRR, no murmurs, rubs or gallops, no JVD noted. Lungs CTAB in anterior and posterior moya. No peripheral edema. Abdominal exam: Abdomen soft and non-distended. Abdomen non-tender to palpation in all 4 quadrants. Bowel sounds active in LLQ. No hepatosplenomegaly. No ecchymosis Neuro: CN II-XII intact. No nuchal rigidity. MSK: No posterior calf tenderness bilaterally, homans sign negative bilaterally. Posterior tibialis and radial pulse +2 bilaterally. Sensation intact in upper and lower extremities. Full active ROM in upper and lower extremities, 5/5 stregnth. Limitations: no limitations Course Vital Signs 11/29/18 11/29/18 14:50 16:55 Temperature 98.1 F 97.4 F L Pulse Rate 101 H 80 Respiratory 12 16 Rate Blood Pressure 143/90 143/90 O2 Sat by Pulse 94 L 97 Oximetry Medical Decision Making - Medical Decision Making 28-year-old male patient with past medical history of seizure disorder presents to ED after sustaining 2 tonic-clonic seizures at approximately 2pm. Patient reports that he did not take his seizure prophylaxis medications yesterday. Patient witnessed seizure. She reports that she heard a thud in the other room, patient was on the carpeted ground having a tonic-clonic seizure. Patient states that she did not see any obvious signs of secondary trauma. Unknown head trauma occurred. Patient states that she estimates the first seizure lasted approximately 3 minutes reports that pt had stopped siezing when another seizure occured that lasted approximately 1minute. Patient called 911 and he was transported to Hospital. Upon history taking patient is currently mildly post ictal, however is still alert and oriented 3 and answering questions appropriately. Denies headache, changes in vision, chest pain, shortness breath, abdominal pain, nausea vomiting diarrhea, fevers or chills. Pt VSS. Physical exam did not display acute pathology, normal neurologic exam, normal muscle skeletal exam. Laboratory investigations are non-impressive CBC, CMP. Susank level within therapeutic range, other seizure prophylaxis medicaion levels drawn and will be sent out. Imaging modalities CT of brain and cervical spine and chest x-ray did not display acute pathology. EKG not concerning for acute ischemia. Repeat examination patient is asymptomatic. Patient to be discharged. Patient to resume taking seizure prophylaxis medication as directed. Patient will follow-up with neurologist in one to 2 days. Patient will follow-up with PCP in 1-2 days. Patient to return to ED if new symptoms develop or if condition worsens in any way. - Lab Data Result diagrams: 11/29/18 15:10 11/29/18 15:10 Lab Results 11/29/18 11/29/18 11/29/18 Range/Units 15:10 15:10 15:10 WBC 8.6 (3.8-10.6) k/uL RBC 5.03 (4.30-5.90) m/uL Hgb 15.6 (13.0-17.5) gm/dL Hct 47.1 (39.0-53.0) % MCV 93.7 (80.0-100.0) fL MCH 31.1 (25.0-35.0) pg MCHC 33.2 (31.0-37.0) g/dL RDW 12.5 (11.5-15.5) % Plt Count 267 (150-450) k/uL Neutrophils % 70 % Lymphocytes % 19 % Monocytes % 5 % Eosinophils % 5 % Basophils % 0 % Neutrophils # 6.1 (1.3-7.7) k/uL Lymphocytes # 1.6 (1.0-4.8) k/uL Monocytes # 0.4 (0-1.0) k/uL Eosinophils # 0.4 (0-0.7) k/uL Basophils # 0.0 (0-0.2) k/uL Sodium 143 (137-145) mmol/L Potassium 4.2 (3.5-5.1) mmol/L Chloride 108 H (98-107) mmol/L Carbon Dioxide 20 L (22-30) mmol/L Anion Gap 15 mmol/L BUN 13 (9-20) mg/dL Creatinine 0.87 (0.66-1.25) mg/dL Est GFR (CKD-EPI)AfAm >90 (>60 ml/min/1.73 sqM) Est GFR (CKD-EPI)NonAf >90 (>60 ml/min/1.73 sqM) Glucose 129 H (74-99) mg/dL Calcium 10.3 H (8.4-10.2) mg/dL Total Bilirubin 0.7 (0.2-1.3) mg/dL AST 19 (17-59) U/L ALT 25 (21-72) U/L Alkaline Phosphatase 171 H (38-126) U/L Total Protein 8.7 H (6.3-8.2) g/dL Albumin 5.2 H (3.5-5.0) g/dL Susank 0.8 mmol/L - EKG Data -: EKG Interpreted by Me (and dr dallas) EKG Comments: Ventricular rate 101, DE interval 162, QRS 100, QT/QTC 360/466. Sinus tachycardia, otherwise normal EKG. No concerns for acute ischemia. Disposition Clinical Impression: Seizure Disposition: HOME SELF-CARE Condition: Stable Instructions (If sedation given, give patient instructions): Recurrent Seizures in Adults (ED) Additional Instructions: Patient to adhere to previously discussed treatment plan and will take medication(s) as directed. Patient to follow up with PCP in 1-2 days. Patient to return to ED if symptoms do not improve. Please take all seizure prophylaxis medications as prescribed. Please follow-up with neurologist tomorrow. Is patient prescribed a controlled substance at d/c from ED?: No Referrals: [facility] [Primary Care Provider] - 1-2 days
[2018-11-29 16:56] VITALS: PULSE 80; RESP 16; TEMP 97.4
== END 2018-11-29 17:08 | disposition home or self-care (01) ==
LOC: EC 14:46
DX: G40.909 Epilepsy, unspecified, not intractable, without status epilepticus (principal); E07.9 Disorder of thyroid, unspecified; F32.9 Major depressive disorder, single episode, unspecified; Z79.899 Other long term (current) drug therapy; Z79.890 Hormone replacement therapy
CPT/HCPCS: 36415; 70450; 71046; 72125; 80053; 80175; 80178; 80184; 85025; 93005; 96360; 99285

== ENCOUNTER 2018-12-04 00:22 | Emergency (ER) | payer MEDICARE, OTHER ==
--- NOTE | 2018-12-04 01:09 | ED ---
General Adult HPI - General Chief complaint: Psychiatric Symptoms Stated complaint: Suicidal Time Seen by Provider: 12/04/18 00:42 Source: patient Mode of arrival: ambulatory Limitations: no limitations - History of Present Illness Initial comments: Dictation was produced using [employer] dictation software. please excuse any grammatical, word or spelling errors. Chief Complaint: 28-year-old male well-known to emergency department presents with suicidal thoughts History of Present Illness: 28-year-old male he has past medical history seizure disorder, skin disorder, thyroid disease. Patient is here today with law enforcement. Patient allegedly called 911 and said he was suicidal. Enforcement went to pick him up. Patient states he wants to cut his wrist or jump out into traffic. Patient has history of psychiatric disease. He is being admitted to inpatient psych multiple occasions. Patient is well-known to [facility] department. Patient denies any suicidal attempt today. The ROS documented in this emergency department record has been reviewed and confirmed by me. Those systems with pertinent positive or negative responses have been documented in the HPI. All other systems are other negative and/or noncontributory. PHYSICAL EXAM: General Impression: Alert and oriented x3, not in acute distress HEENT: Normocephalic atraumatic, extra-ocular movements intact, pupils equal and reactive to light bilaterally, mucous membranes moist. Cardiovascular: Heart regular rate and rhythm, S1&S2 audible, no murmurs, rubs or gallops Chest: Lungs clear to auscultation bilaterally, no rhonchi, no wheeze, no rales Abdomen: Bowel sounds present, abdomen soft, non-tender, non-distended, no organomegaly Musculoskeletal: Pulses present and equal in all extremities, no peripheral edema Motor: Power 5/5 bilaterally, no focal deficits noted Neurological: CN II-XII grossly intact, no focal motor or sensory deficits noted Skin: Intact with no visualized rashes Psych: Apathetic ED course: 28-year-old male with suicidal ideation. Vital signs upon arrival are within acceptable limits.UDS is positive for barbiturates and amphetamines. These appear to be consistent with patient's usual medications. Patient was evaluated by EPS. Patient is threatening that he will kill himself if he is discharged. Patient be admitted to inpatient psychiatry. - Related Data Home Medications Medication Instructions Recorded Confirmed carBAMazepine [TEGretol XR] 200 mg PO BID 11/02/17 12/04/18 Brexpiprazole [Rexulti] 2 mg PO HS 03/03/18 12/04/18 Lacosamide [Vimpat] 100 mg PO BID 03/03/18 12/04/18 Levothyroxine Sodium [Synthroid] 50 mcg PO DAILY 03/03/18 12/04/18 [place] Carbonate 600 mg PO BID 03/03/18 12/04/18 LORazepam [Ativan] 0.5 mg PO BID PRN 10/19/18 12/04/18 PHENobarbital 97.2 mg PO HS 10/19/18 12/04/18 carBAMazepine [TEGretol XR] 400 mg PO HS 10/19/18 12/04/18 Lisdexamfetamine Dimesylate 50 mg PO QAM 11/29/18 12/04/18 [Vyvanse] Previous Rx's Medication Instructions Recorded lamoTRIgine [LaMICtal] 200 mg PO BID #28 tablet 07/24/17 Venlafaxine HCl ER [Effexor XR] 300 mg PO DAILY 30 Days #60 07/23/18 cap.er.24h Allergies Allergy/AdvReac Type Severity Reaction Status Date / Time No Known Allergies Allergy Verified 12/04/18 00:40 Review of Systems ROS Statement: Those systems with pertinent positive or pertinent negative responses have been documented in the HPI. ROS Other: All systems not noted in ROS Statement are negative. Past Medical History Past Medical History: GERD/Reflux, Seizure Disorder, Skin Disorder, Thyroid Disorder Additional Past Medical History / Comment(s): has history of epilepsy LAST SEIZURE 12/23/17, hx grand mal seizures since childhood, migraines, acne, History of Any Multi-Drug Resistant Organisms: None Reported Past Surgical History: Adenoidectomy, Appendectomy, Cholecystectomy, Tonsillectomy Additional Past Surgical History / Comment(s): oral surgery Past Anesthesia/Blood Transfusion Reactions: Previous Problems w/ Anesthesia Additional Past Anesthesia/Blood Transfusion Reaction / Comment(s): SLOW TO WAKE FROM ANESTHESIA" Past Psychological History: Depression Smoking Status: Never smoker Past Alcohol Use History: None Reported Past Drug Use History: None Reported - Past Family History Brother(s) Family Medical History: Asthma Additional Family Medical History / Comment(s): back problems Mother Family Medical History: Cancer Additional Family Medical History / Comment(s): breast cancer General Exam Limitations: no limitations Course Vital Signs 12/04/18 00:38 Temperature 97.8 F Pulse Rate 73 Respiratory 20 Rate Blood Pressure 125/80 O2 Sat by Pulse 99 Oximetry Medical Decision Making - Lab Data Lab Results 12/04/18 Range/Units 00:50 Urine Opiates Screen Not Detected (NotDetected) Ur Oxycodone Screen Not Detected (NotDetected) Urine Methadone Screen Not Detected (NotDetected) Ur Propoxyphene Screen Not Detected (NotDetected) Ur Barbiturates Screen Detected H (NotDetected) U Tricyclic Antidepress Not Detected (NotDetected) Ur Phencyclidine Scrn Not Detected (NotDetected) Ur Amphetamines Screen Detected H (NotDetected) U Methamphetamines Scrn Not Detected (NotDetected) U Benzodiazepines Scrn Not Detected (NotDetected) Urine Cocaine Screen Not Detected (NotDetected) U Marijuana (THC) Screen Not Detected (NotDetected) Disposition Clinical Impression: Suicidal ideation Disposition: ADMITTED IP TO THIS [facility] Condition: Fair Referrals: [facility] [Primary Care Provider] - 1-2 days Decision Time: 02:59
[2018-12-04 01:29] LABS: Amphetamine Screen,Urine Detected (NotDetected); Barbiturate Screen,Urine Detected (NotDetected); Benzodiazepines Screen,Urine Not Detected (NotDetected); Cocaine Screen,Urine Not Detected (NotDetected); Methadone Screen, Urine Not Detected (NotDetected); Opiate Screen,Urine Not Detected (NotDetected); Oxycodone Screen, Urine Not Detected (NotDetected); Phencyclidine Screen,Urine Not Detected (NotDetected); Tricyclic Antidepressant,Urine Not Detected (NotDetected); Urn Cannabinoid Scrn Not Detected (NotDetected)
--- NOTE | 2018-12-04 05:51 | ED ---
Medical Decision Making - Medical Decision Making Patient to be disposition to [facility] facility - Lab Data Lab Results 12/04/18 Range/Units 00:50 Urine Opiates Screen Not Detected (NotDetected) Ur Oxycodone Screen Not Detected (NotDetected) Urine Methadone Screen Not Detected (NotDetected) Ur Propoxyphene Screen Not Detected (NotDetected) Ur Barbiturates Screen Detected H (NotDetected) U Tricyclic Antidepress Not Detected (NotDetected) Ur Phencyclidine Scrn Not Detected (NotDetected) Ur Amphetamines Screen Detected H (NotDetected) U Methamphetamines Scrn Not Detected (NotDetected) U Benzodiazepines Scrn Not Detected (NotDetected) Urine Cocaine Screen Not Detected (NotDetected) U Marijuana (THC) Screen Not Detected (NotDetected) Disposition Clinical Impression: Suicidal ideation Disposition: TRANSFER TO PSYCH HOSP/UNIT Condition: Fair Referrals: [facility] [Primary Care Provider] - 1-2 days - Out of Hospital Transfer - Req. Specs Out of Hospital Transfer - Requested Specifics: Other Non-Acute ([facility])
[2018-12-04 06:41] VITALS: BP 106/73; PULSE 79; RESP 18; TEMP 98.1
== END 2018-12-04 07:10 ==
LOC: EC 00:22
DX: R45.851 Suicidal ideations (principal); G40.909 Epilepsy, unspecified, not intractable, without status epilepticus; E07.9 Disorder of thyroid, unspecified; F32.9 Major depressive disorder, single episode, unspecified; Z79.899 Other long term (current) drug therapy; Z79.890 Hormone replacement therapy
CPT/HCPCS: 80306; 82075; 99285

== ENCOUNTER → 2019-01-12 | Outpatient (CLI) | payer MEDICARE, OTHER ==
[2019-01-12 12:06] LABS: Basophils % (A) 0 %; Eosinophils # (A) 0.6 k/uL (0-0.7); Eosinophils % (A) 8 %; HGB 14.6 gm/dL (13.0-17.5); Lymphocytes # (A) 1.8 k/uL (1.0-4.8); Lymphocytes % (A) 23 %; MCH 29.4 pg (25.0-35.0); MCHC 31.7 g/dL (31.0-37.0); MCV 92.8 fL (80.0-100.0); Mean Platelet Volume 6.1; Monocytes # (A) 0.3 k/uL (0-1.0); Monocytes % (A) 4 %; Neutrophils # (A) 4.8 k/uL (1.3-7.7); Neutrophils % (A) 62 %; Platelet Count 273 k/uL (150-450); RBC 4.96 m/uL (4.30-5.90); RDW 12.9 % (11.5-15.5); WBC 7.7 k/uL (3.8-10.6)
[2019-01-12 16:45] LABS: Albumin 4.6 g/dL (3.80-4.90); Anion Gap 10.6 mmol/L (4.00-12.00); Calcium 9.4 mg/dL (8.7-10.3); Carbon Dioxide 27.4 mmol/L (21.6-31.8); Globulin 2.3 g/dL (1.6-3.3); Potassium 4.3 mmol/L (3.5-5.5); Total Bilirubin 0.2 mg/dL (0.2-1.2); Total Protein 6.9 g/dL (6.2-8.2)
== END | disposition home or self-care (01) ==
LOC: LABWHC1 10:51
DX: G40.319 Generalized idiopathic epilepsy and epileptic syndromes, intractable, without status epilepticus (principal)
CPT/HCPCS: 36415; 80053; 80184; 85025

== ENCOUNTER 2019-04-11 18:35 | Emergency (ER) | payer MEDICARE, OTHER ==
[2019-04-11 18:57] VITALS: BP 124/83; PULSE 60; RESP 20; TEMP 98.7
[2019-04-11] MEDS ORDERED: LIDOCAINE 1% INJ 10MG/ML (20 ML MDV) SQ ONE (18:58)
[2019-04-11] MEDS ORDERED: DIPH,PERTUS(ACELL)TETVAC-LF 0.5 ML VIAL IM ONE (19:29)
--- NOTE | 2019-04-11 19:36 | ED ---
General Adult HPI - General Chief complaint: Skin/Abscess/Foreign Body Stated complaint: Fish hook in lt thumb Time Seen by Provider: 04/11/19 18:57 Source: patient, RN notes reviewed Mode of arrival: ambulatory Limitations: no limitations - History of Present Illness Initial comments: 29-year-old male presents to the emergency department for chief complaint of fishhook in the left thumb. Patient was fishing when he accidentally got a hook stuck. Patient states that he tried to remove it himself so cut the hook but could not do so. Denies any other injuries. Patient is not up-to-date on tetanus. Patient has no other complaints at this time including shortness of breath, chest pain, abdominal pain, nausea or vomiting, headache, or visual nadira nges. - Related Data Home Medications Medication Instructions Recorded Confirmed carBAMazepine [TEGretol XR] 200 mg PO BID 11/02/17 12/04/18 Brexpiprazole [Rexulti] 2 mg PO HS 03/03/18 12/04/18 Lacosamide [Vimpat] 100 mg PO BID 03/03/18 12/04/18 Levothyroxine Sodium [Synthroid] 50 mcg PO DAILY 03/03/18 12/04/18 [place] Carbonate 600 mg PO BID 03/03/18 12/04/18 LORazepam [Ativan] 0.5 mg PO BID PRN 10/19/18 12/04/18 PHENobarbital 97.2 mg PO HS 10/19/18 12/04/18 carBAMazepine [TEGretol XR] 400 mg PO HS 10/19/18 12/04/18 Lisdexamfetamine Dimesylate 50 mg PO QAM 11/29/18 12/04/18 [Vyvanse] Previous Rx's Medication Instructions Recorded lamoTRIgine [LaMICtal] 200 mg PO BID #28 tablet 07/24/17 Venlafaxine HCl ER [Effexor XR] 300 mg PO DAILY 30 Days #60 07/23/18 cap.er.24h Cephalexin [Keflex] 500 mg PO Q6HR 3 Days #12 cap 04/11/19 Allergies Allergy/AdvReac Type Severity Reaction Status Date / Time No Known Allergies Allergy Verified 12/04/18 00:40 Review of Systems ROS Statement: Those systems with pertinent positive or pertinent negative responses have been documented in the HPI. ROS Other: All systems not noted in ROS Statement are negative. Past Medical History Past Medical History: GERD/Reflux, Seizure Disorder, Skin Disorder, Thyroid Disorder Additional Past Medical History / Comment(s): has history of epilepsy LAST SEIZURE 12/23/17, hx grand mal seizures since childhood, migraines, acne, History of Any Multi-Drug Resistant Organisms: None Reported Past Surgical History: Adenoidectomy, Appendectomy, Cholecystectomy, Tonsillectomy Additional Past Surgical History / Comment(s): oral surgery Past Anesthesia/Blood Transfusion Reactions: Previous Problems w/ Anesthesia Additional Past Anesthesia/Blood Transfusion Reaction / Comment(s): SLOW TO WAKE FROM ANESTHESIA" Past Psychological History: Depression Smoking Status: Never smoker Past Alcohol Use History: None Reported Past Drug Use History: None Reported - Past Family History Brother(s) Family Medical History: Asthma Additional Family Medical History / Comment(s): back problems Mother Family Medical History: Cancer Additional Family Medical History / Comment(s): breast cancer General Exam Limitations: no limitations General appearance: alert, in no apparent distress Head exam: Present: atraumatic, normocephalic, normal inspection Eye exam: Present: normal appearance, PERRL, EOMI. Absent: scleral icterus, conjunctival injection, periorbital swelling ENT exam: Present: normal exam, mucous membranes moist Neck exam: Present: normal inspection, full ROM. Absent: tenderness, meningismus, lymphadenopathy Respiratory exam: Present: normal lung sounds bilaterally. Absent: respiratory distress, wheezes, rales, rhonchi, stridor Cardiovascular Exam: Present: regular rate, normal rhythm, normal heart sounds. Absent: systolic murmur, diastolic murmur, rubs, gallop, clicks Extremities exam: Present: full ROM (Of left thumb), normal capillary refill (Capillary refill less than 2 seconds, radial pulse 2+ left upper extremity.), other (She has fishhook in finger pad of left thumb which is cut about 3 mm above the surface.). Absent: tenderness (Tenderness over Hook injury of left thumb), pedal edema, joint swelling, calf tenderness Neurological exam: Present: alert, oriented X3, CN II-XII intact Psychiatric exam: Present: normal affect, normal mood Course Vital Signs 04/11/19 18:55 Temperature 98.7 F Pulse Rate 60 Respiratory 20 Rate Blood Pressure 124/83 O2 Sat by Pulse 99 Oximetry Medical Decision Making - Medical Decision Making 29-year-old male presents for finger hook in the left thumb. This happened just prior to arrival. Hook was actually brand-new and had never been in the water. Patient did try to remove this himself was unsuccessful. Patient updated on tetanus. Wound was cleaned thoroughly with iodine. Gann was then retracted out of finger pad without difficulty. Pressure saline irrigation was then used to clean out small puncture left in skin. Patient was put on some Keflex for 3 days to prevent infection. He will follow up with primary care in 1-2 days or return if he has any worsening symptoms. Disposition Clinical Impression: Gann injury to finger Disposition: HOME SELF-CARE Condition: Good Instructions (If sedation given, give patient instructions): Laceration (ED) Additional Instructions: Please keep the area clean. Monitor for signs infection such as spreading or streaking redness. Follow up with primary care in 1-2 days. Return to the emergency department if you have any worsening symptoms. Prescriptions: Cephalexin [Keflex] 500 mg PO Q6HR 3 Days #12 cap Is patient prescribed a controlled substance at d/c from ED?: No Referrals: Silas Stuart MD [REFERRING] - 1-2 days Time of Disposition: 19:33
== END 2019-04-11 19:49 | disposition home or self-care (01) ==
LOC: EC 18:35
DX: S60.352A Superficial foreign body of left thumb, initial encounter (principal); G40.909 Epilepsy, unspecified, not intractable, without status epilepticus; E07.9 Disorder of thyroid, unspecified; F32.9 Major depressive disorder, single episode, unspecified; Z23 Encounter for immunization; Z79.890 Hormone replacement therapy; Z79.899 Other long term (current) drug therapy; W22.8XXA Striking against or struck by other objects, initial encounter
CPT/HCPCS: 90715; 99282; 96372; 90471; J2001

== ENCOUNTER 2019-04-21 01:07 | Emergency (ER) | payer MEDICARE, OTHER ==
[2019-04-21 01:12] VITALS: BP 142/83; PULSE 91; RESP 18; TEMP 97.9
[2019-04-21] MEDS ORDERED: KETOROLAC 30 MG/ML 1 ML VIAL IM STA (01:33)
--- NOTE | 2019-04-21 01:57 | ED ---
General Adult HPI - General Chief complaint: Extremity Problem,Nontraumatic Stated complaint: Lt shoulder/side pain Time Seen by Provider: 04/21/19 01:17 Source: patient, RN notes reviewed Mode of arrival: ambulatory - History of Present Illness Initial comments: 29-year-old male with a past medical history of epilepsy, GERD, thyroid disorder, migraines presents to the emergency department for back pain. Patient states that he has left lateral back pain around his left shoulder blade. States it has been there for a few days. 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 Denies any known injury but states this started throughout his stay there. States he goes upper on his left shoulder. Denies any chest pain or abdominal pain. Denies any midline or lower back pain, denies any saddle anesthesia or bladder or bowel changes. States he came to the ER because he picked up his 40 pound son and it was in full.Patient has no other complaints at this time including shortness of breath, chest pain, abdominal pain, nausea or vomiting, headache, or visual changes. - Related Data Home Medications Medication Instructions Recorded Confirmed carBAMazepine [TEGretol XR] 200 mg PO BID 11/02/17 12/04/18 Brexpiprazole [Rexulti] 2 mg PO HS 03/03/18 12/04/18 Lacosamide [Vimpat] 100 mg PO BID 03/03/18 12/04/18 Levothyroxine Sodium [Synthroid] 50 mcg PO DAILY 03/03/18 12/04/18 [place] Carbonate 600 mg PO BID 03/03/18 12/04/18 LORazepam [Ativan] 0.5 mg PO BID PRN 10/19/18 12/04/18 PHENobarbital 97.2 mg PO HS 10/19/18 12/04/18 carBAMazepine [TEGretol XR] 400 mg PO HS 10/19/18 12/04/18 Lisdexamfetamine Dimesylate 50 mg PO QAM 11/29/18 12/04/18 [Vyvanse] Previous Rx's Medication Instructions Recorded lamoTRIgine [LaMICtal] 200 mg PO BID #28 tablet 07/24/17 Venlafaxine HCl ER [Effexor XR] 300 mg PO DAILY 30 Days #60 07/23/18 cap.er.24h Cephalexin [Keflex] 500 mg PO Q6HR 3 Days #12 cap 04/11/19 Allergies Allergy/AdvReac Type Severity Reaction Status Date / Time No Known Allergies Allergy Verified 12/04/18 00:40 Review of Systems ROS Statement: Those systems with pertinent positive or pertinent negative responses have been documented in the HPI. ROS Other: All systems not noted in ROS Statement are negative. Past Medical History Past Medical History: GERD/Reflux, Seizure Disorder, Skin Disorder, Thyroid Disorder Additional Past Medical History / Comment(s): has history of epilepsy LAST SEIZURE 12/23/17, hx grand mal seizures since childhood, migraines, acne, History of Any Multi-Drug Resistant Organisms: None Reported Past Surgical History: Adenoidectomy, Appendectomy, Cholecystectomy, Tonsillectomy Additional Past Surgical History / Comment(s): oral surgery Past Anesthesia/Blood Transfusion Reactions: Previous Problems w/ Anesthesia Additional Past Anesthesia/Blood Transfusion Reaction / Comment(s): SLOW TO WAKE FROM ANESTHESIA" Past Psychological History: Depression Smoking Status: Never smoker Past Alcohol Use History: None Reported Past Drug Use History: None Reported - Past Family History Brother(s) Family Medical History: Asthma Additional Family Medical History / Comment(s): back problems Mother Family Medical History: Cancer Additional Family Medical History / Comment(s): breast cancer General Exam General appearance: alert, in no apparent distress Head exam: Present: atraumatic, normocephalic, normal inspection Eye exam: Present: normal appearance, PERRL, EOMI. Absent: scleral icterus, conjunctival injection, periorbital swelling ENT exam: Present: normal exam, mucous membranes moist Neck exam: Present: normal inspection, full ROM. Absent: tenderness, meningismus, lymphadenopathy Respiratory exam: Present: normal lung sounds bilaterally. Absent: respiratory distress, wheezes, rales, rhonchi, stridor Cardiovascular Exam: Present: regular rate, normal rhythm, normal heart sounds. Absent: systolic murmur, diastolic murmur, rubs, gallop, clicks GI/Abdominal exam: Present: soft, normal bowel sounds. Absent: distended, tenderness, guarding, rebound, rigid Extremities exam: Present: full ROM (Full range of motion of the left shoulder), normal capillary refill (Capillary refill less than 2 seconds, radial pulse 2+ in the left upper extremity) Back exam: Present: muscle spasm (Medial to the left scapula), paraspinal tenderness (Patient has tenderness noted to the trapezius muscle medial to the left scapula, pain is reproducible on exam. Muscle spasms noted.). Absent: CVA tenderness (R), CVA tenderness (L), vertebral tenderness (No cervical thoracic or lumbar spine tenderness) Neurological exam: Present: alert, oriented X3, CN II-XII intact Psychiatric exam: Present: normal affect, normal mood Course Vital Signs 04/21/19 01:09 Temperature 97.9 F Pulse Rate 91 Respiratory 18 Rate Blood Pressure 142/83 O2 Sat by Pulse 99 Oximetry Medical Decision Making - Medical Decision Making 29-year-old male presents for left back pain times several days. 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 Denies falls or any other injuries. States it hurts more with movement of the left shoulder but denies pain specifically within the left shoulder. On exam neurovascular intact in the left upper extremity. Patient does have a full range of motion of the left shoulder. However patient has reproducible tenderness noted to the trapezius muscle medial to the left scapula. Muscle spasms noted. This is likely the cause of patient's pain. Patient was given a shot of Toradol which did help his symptoms. Discussed anti-inflammatories and following up with primary care. Discussed returning here if he has any worsening symptoms. Disposition Clinical Impression: Back pain, Muscle spasm Disposition: HOME SELF-CARE Condition: Good Instructions (If sedation given, give patient instructions): Muscle Spasm (ED), Back Pain (ED) Additional Instructions: Please take Motrin and Tylenol for pain. Please follow-up with primary care in 1-2 days. Return here to the emergency department if you have any worsening symptoms. Is patient prescribed a controlled substance at d/c from ED?: No Referrals: Silas Stuart MD [REFERRING] - 1-2 days Time of Disposition: 01:56
== END 2019-04-21 02:22 | disposition home or self-care (01) ==
LOC: EC 01:07
DX: M62.830 Muscle spasm of back (principal); G40.909 Epilepsy, unspecified, not intractable, without status epilepticus; F32.9 Major depressive disorder, single episode, unspecified; E07.9 Disorder of thyroid, unspecified; Z79.890 Hormone replacement therapy; Z79.899 Other long term (current) drug therapy
CPT/HCPCS: 96372; 99283

== ENCOUNTER 2019-07-06 04:58 | Emergency (ER) | payer MEDICARE, OTHER ==
[2019-07-06 05:05] VITALS: TEMP 97.6
[2019-07-06 05:36] LABS: Basophils # (A) 0.1 k/uL (0-0.2); Basophils % (A) 1 %; Eosinophils # (A) 0.8 k/uL (0-0.7); Eosinophils % (A) 9 %; HCT 44.5 % (39.0-53.0); HGB 14.6 gm/dL (13.0-17.5); Lymphocytes # (A) 2.6 k/uL (1.0-4.8); Lymphocytes % (A) 28 %; MCHC 32.7 g/dL (31.0-37.0); MCV 94.8 fL (80.0-100.0); Mean Platelet Volume 6.1; Monocytes # (A) 0.4 k/uL (0-1.0); Monocytes % (A) 5 %; Neutrophils # (A) 5.1 k/uL (1.3-7.7); Neutrophils % (A) 55 %; Platelet Count 274 k/uL (150-450); RDW 12.6 % (11.5-15.5); WBC 9.2 k/uL (3.8-10.6)
--- NOTE | 2019-07-06 05:39 | ED ---
Seizure HPI - General Chief Complaint: Seizure Stated Complaint: Seizure Time Seen by Provider: 07/06/19 05:24 Source: patient, EMS Mode of arrival: EMS Limitations: no limitations - History of Present Illness Initial Comments: This patient is a 29-year-old man who presents after he had a seizure tonight at home. The patient states she does have known seizure disorder. He states that he has been compliant with his medication for seizures. Patient had been watching television at home tonight. Patient states that the next thing that he remembered he had been waking up and his had told him that he had a seizure. She states that she he woke her when she felt him stiffen while in the bed with her. The patient denies any fall or trauma. He does feel like he is back at his baseline now. The patient[facility] at [facility]. Patient states that he does have an online classes that he needs to attend later today and is hoping to go home. MD Complaint: seizure -: minutes(s) Description of Episode: loss of consciousness, tonic-clonic movement -: minutes(s) Witnessed: yes - by bystander Trauma: No Seizure History: known seizure disorder Place: home Possible Precipitating Event: none Associated Symptoms: denies other symptoms Treatments Prior to Arrival: none - Related Data Home Medications Medication Instructions Recorded Confirmed carBAMazepine [TEGretol XR] 200 mg PO BID 11/02/17 12/04/18 Brexpiprazole [Rexulti] 2 mg PO HS 03/03/18 12/04/18 Lacosamide [Vimpat] 100 mg PO BID 03/03/18 12/04/18 Levothyroxine Sodium [Synthroid] 50 mcg PO DAILY 03/03/18 12/04/18 [place] Carbonate 600 mg PO BID 03/03/18 12/04/18 LORazepam [Ativan] 0.5 mg PO BID PRN 10/19/18 12/04/18 PHENobarbital 97.2 mg PO HS 10/19/18 12/04/18 carBAMazepine [TEGretol XR] 400 mg PO HS 10/19/18 12/04/18 Lisdexamfetamine Dimesylate 50 mg PO QAM 11/29/18 12/04/18 [Vyvanse] Previous Rx's Medication Instructions Recorded lamoTRIgine [LaMICtal] 200 mg PO BID #28 tablet 07/24/17 Venlafaxine HCl ER [Effexor XR] 300 mg PO DAILY 30 Days #60 07/23/18 cap.er.24h Cephalexin [Keflex] 500 mg PO Q6HR 3 Days #12 cap 04/11/19 Allergies Allergy/AdvReac Type Severity Reaction Status Date / Time No Known Allergies Allergy Verified 12/04/18 00:40 Review of Systems ROS Statement: Those systems with pertinent positive or pertinent negative responses have been documented in the HPI. ROS Other: All systems not noted in ROS Statement are negative. Constitutional: Denies: fever, chills, weakness Eyes: Denies: vision change Respiratory: Denies: cough, dyspnea Cardiovascular: Denies: chest pain, palpitations Gastrointestinal: Denies: abdominal pain, vomiting, diarrhea Musculoskeletal: Denies: back pain Skin: Denies: rash Neurological: Denies: headache, weakness, numbness, paresthesias, confusion Past Medical History Past Medical History: GERD/Reflux, Seizure Disorder, Skin Disorder, Thyroid Disorder Additional Past Medical History / Comment(s): has history of epilepsy, hx grand mal seizures since childhood, migraines, acne, History of Any Multi-Drug Resistant Organisms: None Reported Past Surgical History: Adenoidectomy, Appendectomy, Cholecystectomy, Tonsillectomy Additional Past Surgical History / Comment(s): oral surgery Past Anesthesia/Blood Transfusion Reactions: Previous Problems w/ Anesthesia Additional Past Anesthesia/Blood Transfusion Reaction / Comment(s): SLOW TO WAKE FROM ANESTHESIA" Past Psychological History: Depression Smoking Status: Never smoker Past Alcohol Use History: None Reported Past Drug Use History: None Reported - Past Family History Brother(s) Family Medical History: Asthma Additional Family Medical History / Comment(s): back problems Mother Family Medical History: Cancer Additional Family Medical History / Comment(s): breast cancer General Exam Limitations: no limitations General appearance: alert, in no apparent distress Head exam: Present: atraumatic, normocephalic Eye exam: Present: normal appearance, PERRL, EOMI. Absent: scleral icterus, conjunctival injection ENT exam: Present: normal oropharynx, mucous membranes moist Neck exam: Present: normal inspection, full ROM. Absent: meningismus Respiratory exam: Present: normal lung sounds bilaterally. Absent: respiratory distress, wheezes, rales, rhonchi, stridor Cardiovascular Exam: Present: regular rate, normal rhythm, normal heart sounds. Absent: systolic murmur, diastolic murmur, rubs, gallop GI/Abdominal exam: Present: soft. Absent: distended, tenderness, guarding, rebound, mass Extremities exam: Present: normal inspection, normal capillary refill. Absent: pedal edema, calf tenderness Back exam: Present: normal inspection. Absent: CVA tenderness (R), CVA tenderness (L) Neurological exam: Present: alert, oriented X3, CN II-XII intact. Absent: motor sensory deficit Skin exam: Present: warm, dry, intact, normal color. Absent: rash Course Vital Signs 07/06/19 07/06/19 05:00 06:03 Temperature 97.6 F Pulse Rate 100 95 Respiratory 19 18 Rate Blood Pressure 141/91 110/70 O2 Sat by Pulse 98 97 Oximetry Medical Decision Making - Lab Data Result diagrams: 07/06/19 05:18 07/06/19 05:18 Lab Results 07/06/19 07/06/19 Range/Units 05:18 05:18 WBC 9.2 (3.8-10.6) k/uL RBC 4.70 (4.30-5.90) m/uL Hgb 14.6 (13.0-17.5) gm/dL Hct 44.5 (39.0-53.0) % MCV 94.8 (80.0-100.0) fL MCH 31.0 (25.0-35.0) pg MCHC 32.7 (31.0-37.0) g/dL RDW 12.6 (11.5-15.5) % Plt Count 274 (150-450) k/uL Neutrophils % 55 % Lymphocytes % 28 % Monocytes % 5 % Eosinophils % 9 % Basophils % 1 % Neutrophils # 5.1 (1.3-7.7) k/uL Lymphocytes # 2.6 (1.0-4.8) k/uL Monocytes # 0.4 (0-1.0) k/uL Eosinophils # 0.8 H (0-0.7) k/uL Basophils # 0.1 (0-0.2) k/uL Sodium 139 (137-145) mmol/L Potassium 3.9 (3.5-5.1) mmol/L Chloride 107 (98-107) mmol/L Carbon Dioxide 21 L (22-30) mmol/L Anion Gap 11 mmol/L BUN 10 (9-20) mg/dL Creatinine 0.73 (0.66-1.25) mg/dL Est GFR (CKD-EPI)AfAm >90 (>60 ml/min/1.73 sqM) Est GFR (CKD-EPI)NonAf >90 (>60 ml/min/1.73 sqM) Glucose 114 H (74-99) mg/dL Calcium 9.6 (8.4-10.2) mg/dL Total Bilirubin 0.2 (0.2-1.3) mg/dL AST 21 (17-59) U/L ALT 16 L (21-72) U/L Alkaline Phosphatase 127 H (38-126) U/L Total Protein 7.9 (6.3-8.2) g/dL Albumin 4.5 (3.5-5.0) g/dL Carbamazepine 3.9 ug/mL [place] 0.8 mmol/L - EKG Data -: EKG Interpreted by Md EKG shows normal: sinus rhythm (Normal), axis (Normal), intervals (Normal), QRS complexes (Normal), ST-T waves (Normal) Rate: normal (Rate 86 bpm) Interpretation: normal EKG Disposition Clinical Impression: Generalized seizure Disposition: HOME SELF-CARE Condition: Good Instructions (If sedation given, give patient instructions): Recurrent Seizures in Adults (ED) Is patient prescribed a controlled substance at d/c from ED?: No Referrals: None,Stated [Primary Care Provider] - 1-2 days
[2019-07-06 05:48] LABS: ALT 16 U/L (21-72); AST 21 U/L (17-59); African American GFR (CKD) >90 (>60 ml/min/1.73 sqM); Albumin 4.5 g/dL (3.5-5.0); Alkaline Phosphatase 127 U/L (38-126); Anion Gap 11 mmol/L; Blood Urea Nitrogen 10 mg/dL (9-20); Calcium 9.6 mg/dL (8.4-10.2); Carbamazepine (Tegretol) 3.9 ug/mL; Carbon Dioxide 21 mmol/L (22-30); Chloride 107 mmol/L (98-107); Glucose 114 mg/dL (74-99); Lithium 0.8 mmol/L; Potassium 3.9 mmol/L (3.5-5.1); Sodium 139 mmol/L (137-145); Total Bilirubin 0.2 mg/dL (0.2-1.3); Total Protein 7.9 g/dL (6.3-8.2)
[2019-07-06] MEDS ORDERED: carBAMazepine 400 MG TAB.ER.12H PO STA (05:55)
[2019-07-06 06:06] VITALS: RESP 18
[2019-07-06 07:20] VITALS: BP 125/84; PULSE 89
== END 2019-07-06 07:20 | disposition home or self-care (01) ==
LOC: EC 04:58
DX: G40.309 Generalized idiopathic epilepsy and epileptic syndromes, not intractable, without status epilepticus (principal); F32.9 Major depressive disorder, single episode, unspecified; E07.9 Disorder of thyroid, unspecified; Z79.890 Hormone replacement therapy; Z79.899 Other long term (current) drug therapy
CPT/HCPCS: 36415; 80053; 80156; 80178; 85025; 93005; 99284

== ENCOUNTER 2019-07-17 13:48 | Emergency (ER) | payer MEDICARE, OTHER ==
[2019-07-17 14:09] LABS: Glucose,Whole Blood 91 mg/dL (75-99)
[2019-07-17] MEDS ORDERED: ONDANSETRON 4 MG/2 ML VIAL IVP STA (14:41)
[2019-07-17] MEDS ORDERED: SODIUM CHLORIDE 0.9% 1,000 ML IV ONE (14:41)
[2019-07-17 14:42] LABS: Basophils # (A) 0.1 k/uL (0-0.2); Basophils % (A) 1 %; Eosinophils # (A) 0.9 k/uL (0-0.7); Eosinophils % (A) 10 %; HCT 46.3 % (39.0-53.0); HGB 14.8 gm/dL (13.0-17.5); Lymphocytes # (A) 2.8 k/uL (1.0-4.8); Lymphocytes % (A) 33 %; MCH 30.5 pg (25.0-35.0); MCV 95.2 fL (80.0-100.0); Mean Platelet Volume 6.1; Monocytes # (A) 0.3 k/uL (0-1.0); Monocytes % (A) 3 %; Neutrophils # (A) 4.3 k/uL (1.3-7.7); Neutrophils % (A) 51 %; Platelet Count 291 k/uL (150-450); RBC 4.86 m/uL (4.30-5.90); RDW 12.7 % (11.5-15.5); WBC 8.5 k/uL (3.8-10.6)
[2019-07-17 15:07] LABS: ALT 10 U/L (21-72); AST 24 U/L (17-59); African American GFR (CKD) >90 (>60 ml/min/1.73 sqM); Albumin 4.9 g/dL (3.5-5.0); Alkaline Phosphatase 115 U/L (38-126); Anion Gap 16 mmol/L; Blood Urea Nitrogen 15 mg/dL (9-20); Carbon Dioxide 18 mmol/L (22-30); Chloride 109 mmol/L (98-107); Glucose 96 mg/dL (74-99); Lithium 0.9 mmol/L; Potassium 4.2 mmol/L (3.5-5.1); Sodium 143 mmol/L (137-145); Total Bilirubin 0.4 mg/dL (0.2-1.3); Total Protein 8.5 g/dL (6.3-8.2)
--- NOTE | 2019-07-17 16:13 | ED ---
Seizure HPI - General Chief Complaint: Seizure Stated Complaint: seizure Time Seen by Provider: 07/17/19 14:00 Source: patient, family, EMS, RN notes reviewed Mode of arrival: EMS Limitations: no limitations - History of Present Illness Initial Comments: 29-year-old presents emergency Department via EMS with family chief complaint seizure. Patient has a history of epilepsy is on multiple medications. Patient is scheduled for further testing on Friday. Patient's had recent breakthrough seizures. Patient was given 5 of Versed by EMS, patient is very drowsy. states this is his normal postictal state. Patient had no head injury this was a witnessed seizure that lasted less than a minute. No tongue laceration noted. Patient information limited as he is drowsy. - Related Data Home Medications Medication Instructions Recorded Confirmed carBAMazepine [TEGretol XR] 200 mg PO BID 11/02/17 12/04/18 Brexpiprazole [Rexulti] 2 mg PO HS 03/03/18 12/04/18 Lacosamide [Vimpat] 100 mg PO BID 03/03/18 12/04/18 Levothyroxine Sodium [Synthroid] 50 mcg PO DAILY 03/03/18 12/04/18 [place] Carbonate 600 mg PO BID 03/03/18 12/04/18 LORazepam [Ativan] 0.5 mg PO BID PRN 10/19/18 12/04/18 PHENobarbital 97.2 mg PO HS 10/19/18 12/04/18 carBAMazepine [TEGretol XR] 400 mg PO HS 10/19/18 12/04/18 Lisdexamfetamine Dimesylate 50 mg PO QAM 11/29/18 12/04/18 [Vyvanse] Previous Rx's Medication Instructions Recorded lamoTRIgine [LaMICtal] 200 mg PO BID #28 tablet 07/24/17 Venlafaxine HCl ER [Effexor XR] 300 mg PO DAILY 30 Days #60 07/23/18 cap.er.24h Cephalexin [Keflex] 500 mg PO Q6HR 3 Days #12 cap 04/11/19 Allergies Allergy/AdvReac Type Severity Reaction Status Date / Time No Known Allergies Allergy Verified 07/17/19 14:02 Review of Systems ROS Statement: Those systems with pertinent positive or pertinent negative responses have been documented in the HPI. ROS Other: All systems not noted in ROS Statement are negative. Past Medical History Past Medical History: GERD/Reflux, Seizure Disorder, Skin Disorder, Thyroid Disorder Additional Past Medical History / Comment(s): has history of epilepsy, hx grand mal seizures since childhood, migraines, acne, History of Any Multi-Drug Resistant Organisms: None Reported Past Surgical History: Adenoidectomy, Appendectomy, Cholecystectomy, Tonsillectomy Additional Past Surgical History / Comment(s): oral surgery Past Anesthesia/Blood Transfusion Reactions: Previous Problems w/ Anesthesia Additional Past Anesthesia/Blood Transfusion Reaction / Comment(s): SLOW TO WAKE FROM ANESTHESIA" Past Psychological History: Depression Smoking Status: Never smoker Past Alcohol Use History: None Reported Past Drug Use History: None Reported - Past Family History Brother(s) Family Medical History: Asthma Additional Family Medical History / Comment(s): back problems Mother Family Medical History: Cancer Additional Family Medical History / Comment(s): breast cancer General Exam Limitations: no limitations General appearance: alert, in no apparent distress Head exam: Present: atraumatic, normocephalic, normal inspection Eye exam: Present: normal appearance, PERRL, EOMI. Absent: scleral icterus, conjunctival injection, periorbital swelling ENT exam: Present: normal exam, mucous membranes moist Neck exam: Present: normal inspection. Absent: tenderness, meningismus, lymphadenopathy Respiratory exam: Present: normal lung sounds bilaterally. Absent: respiratory distress, wheezes, rales, rhonchi, stridor Cardiovascular Exam: Present: regular rate, normal rhythm, normal heart sounds. Absent: systolic murmur, diastolic murmur, rubs, gallop, clicks GI/Abdominal exam: Present: soft, normal bowel sounds. Absent: distended, tenderness, guarding, rebound, rigid Neurological exam: Present: alert, CN II-XII intact Skin exam: Present: warm, dry, intact, normal color. Absent: rash Course Vital Signs 07/17/19 07/17/19 07/17/19 13:53 13:58 14:00 Temperature 97.8 F Pulse Rate 112 H 116 H Respiratory 20 19 Rate Blood Pressure 121/83 121/83 121/83 O2 Sat by Pulse 90 L 91 L 93 L Oximetry 07/17/19 14:30 Temperature Pulse Rate 106 H Respiratory 20 Rate Blood Pressure 126/79 O2 Sat by Pulse 92 L Oximetry Medical Decision Making - Medical Decision Making Patient is scheduled for follow-up with neurology on Friday. Patient is drowsy though this is related to his Versed, I did discuss results with who feels comfortable taking the patient home at this time I did offer to watch patient for several hours though she states that this is his normal baseline. - Lab Data Result diagrams: 07/17/19 14:08 07/17/19 14:08 Lab Results 07/17/19 07/17/19 07/17/19 Range/Units 14:07 14:08 14:08 WBC 8.5 (3.8-10.6) k/uL RBC 4.86 (4.30-5.90) m/uL Hgb 14.8 (13.0-17.5) gm/dL Hct 46.3 (39.0-53.0) % MCV 95.2 (80.0-100.0) fL MCH 30.5 (25.0-35.0) pg MCHC 32.0 (31.0-37.0) g/dL RDW 12.7 (11.5-15.5) % Plt Count 291 (150-450) k/uL Neutrophils % 51 % Lymphocytes % 33 % Monocytes % 3 % Eosinophils % 10 % Basophils % 1 % Neutrophils # 4.3 (1.3-7.7) k/uL Lymphocytes # 2.8 (1.0-4.8) k/uL Monocytes # 0.3 (0-1.0) k/uL Eosinophils # 0.9 H (0-0.7) k/uL Basophils # 0.1 (0-0.2) k/uL Sodium 143 (137-145) mmol/L Potassium 4.2 (3.5-5.1) mmol/L Chloride 109 H (98-107) mmol/L Carbon Dioxide 18 L (22-30) mmol/L Anion Gap 16 mmol/L BUN 15 (9-20) mg/dL Creatinine 0.85 (0.66-1.25) mg/dL Est GFR (CKD-EPI)AfAm >90 (>60 ml/min/1.73 sqM) Est GFR (CKD-EPI)NonAf >90 (>60 ml/min/1.73 sqM) Glucose 96 (74-99) mg/dL POC Glucose (mg/dL) 91 (75-99) mg/dL POC Glu It [employer] Engineer ID Ond[place] Calcium 10.0 (8.4-10.2) mg/dL Total Bilirubin 0.4 (0.2-1.3) mg/dL AST 24 (17-59) U/L ALT 10 L (21-72) U/L Alkaline Phosphatase 115 (38-126) U/L Total Protein 8.5 H (6.3-8.2) g/dL Albumin 4.9 (3.5-5.0) g/dL [place] 0.9 mmol/L Disposition Clinical Impression: Generalized seizure Disposition: HOME SELF-CARE Condition: Stable Instructions (If sedation given, give patient instructions): Recurrent Seizures in Adults (ED) Additional Instructions: Please return to the Emergency Department if symptoms worsen or any other concerns. Is patient prescribed a controlled substance at d/c from ED?: No Referrals: None,Stated [Primary Care Provider] - 1-2 days Time of Disposition: 16:12
[2019-07-17 16:39] VITALS: BP 125/78; PULSE 98; RESP 18; TEMP 98
== END 2019-07-17 16:38 | disposition home or self-care (01) ==
LOC: EC 13:48
DX: G40.409 Other generalized epilepsy and epileptic syndromes, not intractable, without status epilepticus (principal); E07.9 Disorder of thyroid, unspecified; K21.9 Gastro-esophageal reflux disease without esophagitis; F32.9 Major depressive disorder, single episode, unspecified; Z79.890 Hormone replacement therapy; Z79.899 Other long term (current) drug therapy
CPT/HCPCS: 99284 ×2; 96374 ×2; 96361 ×2; 99285; 36415; 80156; 80053; 80175; 80178; 85025; 70450; J2405

== ENCOUNTER 2019-07-17 19:05 | Emergency (ER) | payer MEDICARE, OTHER ==
[2019-07-17] MEDS ORDERED: SODIUM CHLORIDE 0.9% 500 ML 500 ML IV STA (19:32)
[2019-07-17] MEDS ORDERED: SODIUM CHLORIDE 0.9% 1,000 ML IV STA (19:32)
--- NOTE | 2019-07-17 19:47 | ED ---
Seizure HPI - General Chief Complaint: Seizure Stated Complaint: Seizures Time Seen by Provider: 07/17/19 19:13 Source: patient, EMS Mode of arrival: EMS Limitations: no limitations - History of Present Illness Initial Comments: 29-year-old male with history of epilepsy on multiple antiepileptics presents emergency department for evaluation of recurrent seizures x 1 day. Patient states that he was seen here earlier in the emergency department after multiple seizures that occurred while he was out with his . EMS was called patient was given Versed which aborted the seizure described as tonic clonic, patient was evaluated in the ER. Labs unremarkable. Patient was in post ictal state. No focal deficits. Antiepileptic medications found to be within therapeutic levels. Patient was discharged home-- after discharge shortly after paitent arrived home reports patient had bizarre behavior stating he was grunting, seemed out of it. She states he then had contracted upper extremity and facial movements biting tongue she states that it seemed to be seizure-like activity and patient was not responsive. She called EMS patient was again given Versed which alleviated symptoms. Patient states she has pain all over and his muscles. He states he has a headache. He states he usually does have headaches after seizures as well as nausea and occasional vomiting. No history of fever patient was febrile on arrival low grade 100.1 however patient was having seizure-like activity for greater than 5 minutes. Patient has no other complaints. AAOx3. - Related Data Home Medications Medication Instructions Recorded Confirmed carBAMazepine [TEGretol XR] 200 mg PO BID 11/02/17 07/17/19 Brexpiprazole [Rexulti] 2 mg PO HS 03/03/18 07/17/19 Levothyroxine Sodium [Synthroid] 50 mcg PO DAILY 03/03/18 07/17/19 [place] Carbonate 600 mg PO BID 03/03/18 07/17/19 LORazepam [Ativan] 0.5 mg PO BID PRN 10/19/18 07/17/19 PHENobarbital 129.6 mg PO HS 10/19/18 07/17/19 carBAMazepine [TEGretol XR] 400 mg PO HS 10/19/18 07/17/19 Ibuprofen [Motrin] 800 mg PO TID PRN 07/17/19 07/17/19 Lacosamide [Vimpat] 150 mg PO BID 07/17/19 07/17/19 Previous Rx's Medication Instructions Recorded lamoTRIgine [LaMICtal] 200 mg PO BID #28 tablet 07/24/17 Venlafaxine HCl ER [Effexor XR] 300 mg PO DAILY 30 Days #60 07/23/18 cap.er.24h Allergies Allergy/AdvReac Type Severity Reaction Status Date / Time No Known Allergies Allergy Verified 07/17/19 21:52 Review of Systems ROS Statement: Those systems with pertinent positive or pertinent negative responses have been documented in the HPI. ROS Other: All systems not noted in ROS Statement are negative. Past Medical History Past Medical History: GERD/Reflux, Seizure Disorder, Skin Disorder, Thyroid Disorder Additional Past Medical History / Comment(s): has history of epilepsy, hx grand mal seizures since childhood, migraines, acne, History of Any Multi-Drug Resistant Organisms: None Reported Past Surgical History: Adenoidectomy, Appendectomy, Cholecystectomy, Tonsillectomy Additional Past Surgical History / Comment(s): oral surgery Past Anesthesia/Blood Transfusion Reactions: Previous Problems w/ Anesthesia Additional Past Anesthesia/Blood Transfusion Reaction / Comment(s): SLOW TO WAKE FROM ANESTHESIA" Past Psychological History: Depression Smoking Status: Never smoker Past Alcohol Use History: Occasional Past Drug Use History: None Reported - Past Family History Brother(s) Family Medical History: Asthma Additional Family Medical History / Comment(s): back problems Mother Family Medical History: Cancer Additional Family Medical History / Comment(s): breast cancer General Exam - General Exam Comments Initial Comments: General: The patient is awake and alert, in no distress Eye: +3 mm pupils are equal, round and reactive to light, extra-ocular movements are intact. No nystagmus. There is normal conjunctiva bilaterally. No signs of icterus. Ears, nose, mouth and throat: There are moist mucous membranes and no oral lesions. Neck: The neck is supple, there is no tenderness or JVD. Cardiovascular: There is a regular rate and rhythm. No murmur, rub or gallop is appreciated. Respiratory: Lungs are clear to auscultation, respirations are non-labored, breath sounds are equal. No wheezes, stridor, rales, or rhonchi. Gastrointestinal: Soft, non-distended, non-tender abdomen without masses or organomegaly noted. There is no rebound or guarding present. No CVA tenderness. Bowel sounds are unremarkable. Musculoskeletal: Normal ROM, no tenderness. Strength 5/5 of the UE and LE b/l. Sensation intact of the UE and LE b/l. Radial pulses equal bilaterally 2+. Neurological: A&O x 3. CN II-XII intact, There are no obvious motor or sensory deficits. Coordination appears grossly intact. Speech is normal. Skin: Skin is warm and dry and no rashes or lesions are noted. Psychiatric: Cooperative Limitations: no limitations Course Vital Signs 07/17/19 07/17/19 19:14 21:19 Temperature 100.9 F H 98.7 F Pulse Rate 120 H 98 Respiratory 18 19 Rate Blood Pressure 120/76 120/75 O2 Sat by Pulse 94 L 96 Oximetry Medical Decision Making - Medical Decision Making 29-year-old male presenting for recurrent surge seizures. Antiepileptics which are not sent out labs appear within normal limits. Laboratory studies obtained 3 hours prior with no acute abnormalities. Patient is alert and oriented 3. No focal neurological deficits. Patient complaining of headache and nausea he states is typical of his behavior after seizure. Given the history of medical illness contracture-like symptoms a CT of the pain without contrast is obtained revealing no obvious acute abnormalities. Bedside stiffness patient is out of it. Patient's vital signs stable. He has no focalizing complaints. Patient's states she spoke with patient's neurologist who recommended observation. As we do not have inpatient neurology patient be transferred to rule out pulmonary the patient has established neurological care. I spoke with transferring team including ER physician Dr. Cardenas who recommended transfer as possible direct admit to observation unit. Both patient and are agreeable with transfer. Case was discussed with my attending provider Dr. Clark who recommended transfer. Patient given night time doses of home medications in ER prior to transfer. I spoke with IM Dr. Patterson in regards to medications, history, exam findings. She recommended admission to [facility] or neuro progressive floor. Will call back with room # for transfer/nurse to nurse. - Lab Data Lab Results 07/17/19 Range/Units 20:17 Carbamazepine 5.6 ug/mL Disposition Clinical Impression: Recurrent seizures Disposition: OTHER INSTITUTION NOT DEFINED Condition: Stable Is patient prescribed a controlled substance at d/c from ED?: No Referrals: None,Stated [Primary Care Provider] - 1-2 days Time of Disposition: 22:39 - Out of Hospital Transfer - Req. Specs Out of Hospital Transfer - Requested Specifics: Other Non-Acute (Neuro/or Neuro progressive unit)
[2019-07-17] MEDS ORDERED: ACETAMINOPHEN TAB 325 MG TAB PO STA (20:00)
--- NOTE | 2019-07-17 20:17 | CT ---
EXAMINATION TYPE: CT brain wo con DATE OF EXAM: 07/17/2019 COMPARISON: 11/29/2018 HISTORY: Seizure activity CT DLP: 1162.4 mGycm. Automated Exposure Control for Dose Reduction was Utilized. TECHNIQUE: CT scan of the head is performed without contrast. FINDINGS: Ventricles have normal size. There is no mass effect nor midline shift. There is no sign of intracranial hemorrhage. There is no sign of cerebral edema. Calvarium is intact. IMPRESSION: Normal head CT scan. No change.
[2019-07-17] MEDS ORDERED: ONDANSETRON 4 MG/2 ML VIAL IVP STA (21:19)
[2019-07-17 21:20] VITALS: TEMP 98.7
[2019-07-17] MEDS ORDERED: carBAMazepine 400 MG TAB.ER.12H PO SCH (22:00)
[2019-07-17] MEDS ORDERED: PHENobarbital 32.4 MG TAB PO SCH (22:15)
[2019-07-17] MEDS ORDERED: LACOSAMIDE 150 MG TABLET PO SCH (22:15)
[2019-07-17] MEDS ORDERED: LITHIUM CARBONATE 300 MG CAP PO SCH (22:15)
[2019-07-17] MEDS ORDERED: lamoTRIgine 100 MG TAB PO STA (22:30)
[2019-07-17 23:51] VITALS: BP 120/74; PULSE 89; RESP 18
== END 2019-07-17 23:51 | disposition other institution (70) ==
LOC: EC 19:05
DX: G40.909 Epilepsy, unspecified, not intractable, without status epilepticus (principal); E07.9 Disorder of thyroid, unspecified; F32.9 Major depressive disorder, single episode, unspecified; Z79.890 Hormone replacement therapy; Z79.899 Other long term (current) drug therapy
CPT/HCPCS: 36415; 80156; 70450; 99285; 96374; 96361 ×3; J2405

== ENCOUNTER 2019-08-30 11:19 | Emergency (ER) | payer MEDICARE, OTHER ==
[2019-08-30 11:22] VITALS: TEMP 97.8
[2019-08-30 11:45] LABS: Glucose,Whole Blood 86 mg/dL (75-99)
[2019-08-30] MEDS ORDERED: LORazepam 2 MG/ML INJ IV STA (11:51)
[2019-08-30] MEDS ORDERED: SODIUM CHLORIDE 0.9% 1,000 ML IV STA (11:51)
--- NOTE | 2019-08-30 11:58 | ED ---
General Adult HPI - General Chief complaint: Seizure Stated complaint: seizure Time Seen by Provider: 08/30/19 11:25 Source: patient, family, RN notes reviewed Mode of arrival: ambulatory Limitations: altered mental status - History of Present Illness Initial comments: Patient is a pleasant 29-year-old male presenting to the emergency department with for possible seizure. Patient has long-standing history of seizures. Patient now is having seizures approximately twice per month. Patient has had seizures since a small child. Patient did have recent study when he was taken off his medication and it was determined that his medications are not helping him much. Patient takes his medication erratically. Patient complained of feeling dizzy today and then has had decreased consciousness since that point as witnessed by the . Patient did not have generalized tonic-clonic activity seen today. states several of recent seizures did not have associated generalized tonic-clonic activity. Patient is unresponsive at this time and u nable to provide any history or follow questioning. Patient has had well over a dozen previous head CTs and has had one recently. No trauma recently. - Related Data Allergies Allergy/AdvReac Type Severity Reaction Status Date / Time No Known Allergies Allergy Verified 08/30/19 13:10 Review of Systems ROS Statement: Those systems with pertinent positive or pertinent negative responses have been documented in the HPI. ROS Other: All systems not noted in ROS Statement are negative. Limitations: ROS unobtainable due to patients medical condition Past Medical History Past Medical History: No Reported History, Seizure Disorder History of Any Multi-Drug Resistant Organisms: Unobtainable Past Surgical History: No Surgical Hx Reported Past Psychological History: Unable to Obtain Smoking Status: Unknown if ever smoked Past Alcohol Use History: Unable to Obtain Past Drug Use History: Unable to Obtain General Exam Limitations: altered mental status General appearance: lethargic Head exam: Present: atraumatic, normocephalic Eye exam: Present: normal appearance, PERRL, other (Eyelids are shut and patient resists opening of the eyes) ENT exam: Present: normal oropharynx Neck exam: Present: normal inspection. Absent: tenderness, meningismus Respiratory exam: Present: normal lung sounds bilaterally Cardiovascular Exam: Present: regular rate, normal rhythm GI/Abdominal exam: Present: soft. Absent: tenderness Extremities exam: Present: normal inspection Neurological exam: Present: altered, other (Nonverbal. Does not follow commands) Psychiatric exam: Present: other (Nonverbal) Skin exam: Present: normal color Course Vital Signs 08/30/19 11:19 Temperature 97.8 F Pulse Rate 113 H Respiratory 18 Rate Blood Pressure 139/83 O2 Sat by Pulse 98 Oximetry EKG Findings - EKG Comments: EKG Findings:: Normal sinus rhythm 92. LA 176. QRS 108. QT 368. QTC 455. Normal axis. Normal QRS. No acute ST change. Medical Decision Making - Medical Decision Making Patient reevaluated twice. Patient is significantly improved. Patient is alert and oriented 3 and feels fine at this point. Patient and family are comfortable with discharge home. Patient will follow-up with his neurologist. - Lab Data Result diagrams: 08/30/19 12:19 12 12: Lab Results 08/30/19 1208/30/19 Range/Units 11:43 12:19 12:19 WBC 8.6 (3.8-10.6) k/uL RBC 4.70 (4.30-5.90) m/uL Hgb 15.1 (13.0-17.5) gm/dL Hct 43.4 (39.0-53.0) % MCV 92.3 (80.0-100.0) fL MCH 32.2 (25.0-35.0) pg MCHC 34.9 (31.0-37.0) g/dL RDW 12.3 (11.5-15.5) % Plt Count 290 (150-450) k/uL Neutrophils % 58 % Lymphocytes % 26 % Monocytes % 4 % Eosinophils % 11 % Basophils % 1 % Neutrophils # 5.0 (1.3-7.7) k/uL Lymphocytes # 2.2 (1.0-4.8) k/uL Monocytes # 0.3 (0-1.0) k/uL Eosinophils # 0.9 H (0-0.7) k/uL Basophils # 0.0 (0-0.2) k/uL Sodium 141 (137-145) mmol/L Potassium 4.3 (3.5-5.1) mmol/L Chloride 107 (98-107) mmol/L Carbon Dioxide 24 (22-30) mmol/L Anion Gap 10 mmol/L BUN 10 (9-20) mg/dL Creatinine 0.79 (0.66-1.25) mg/dL Est GFR (CKD-EPI)AfAm >90 (>60 ml/min/1.73 sqM) Est GFR (CKD-EPI)NonAf >90 (>60 ml/min/1.73 sqM) Glucose 93 (74-99) mg/dL POC Glucose (mg/dL) 86 (75-99) mg/dL POC Glu Heading Pinner ID December Calcium 9.8 (8.4-10.2) mg/dL Total Bilirubin 0.4 (0.2-1.3) mg/dL AST 18 (17-59) U/L ALT 15 L (21-72) U/L Alkaline Phosphatase 116 (38-126) U/L Total Protein 7.9 (6.3-8.2) g/dL Albumin 4.6 (3.5-5.0) g/dL Carbamazepine 8.6 ug/mL Serum Alcohol <10 mg/dL Disposition Clinical Impression: Seizure Disposition: HOME SELF-CARE Condition: Stable Instructions (If sedation given, give patient instructions): Recurrent Seizures in Adults (ED) Additional Instructions: Please follow-up with your neurologist in the next couple days for recheck. Return for change in mental status, prolonged or increased seizures, worsening symptoms or other concerns. Is patient prescribed a controlled substance at d/c from ED?: No Referrals: [facility] [Primary Care Provider] - 1-2 days Time of Disposition: 14:14
[2019-08-30 12:45] LABS: Basophils % (A) 1 %; Eosinophils # (A) 0.9 k/uL (0-0.7); Eosinophils % (A) 11 %; HCT 43.4 % (39.0-53.0); HGB 15.1 gm/dL (13.0-17.5); Lymphocytes # (A) 2.2 k/uL (1.0-4.8); Lymphocytes % (A) 26 %; MCH 32.2 pg (25.0-35.0); MCHC 34.9 g/dL (31.0-37.0); MCV 92.3 fL (80.0-100.0); Mean Platelet Volume 5.3; Monocytes # (A) 0.3 k/uL (0-1.0); Monocytes % (A) 4 %; Neutrophils % (A) 58 %; Platelet Count 290 k/uL (150-450); RDW 12.3 % (11.5-15.5); WBC 8.6 k/uL (3.8-10.6)
[2019-08-30 12:47] LABS: ALT 15 U/L (21-72); AST 18 U/L (17-59); African American GFR (CKD) >90 (>60 ml/min/1.73 sqM); Albumin 4.6 g/dL (3.5-5.0); Alcohol <10 mg/dL; Alkaline Phosphatase 116 U/L (38-126); Anion Gap 10 mmol/L; Blood Urea Nitrogen 10 mg/dL (9-20); Calcium 9.8 mg/dL (8.4-10.2); Carbamazepine (Tegretol) 8.6 ug/mL; Carbon Dioxide 24 mmol/L (22-30); Chloride 107 mmol/L (98-107); Glucose 93 mg/dL (74-99); Non-African American GFR(CKD) >90 (>60 ml/min/1.73 sqM); Potassium 4.3 mmol/L (3.5-5.1); Sodium 141 mmol/L (137-145); Total Bilirubin 0.4 mg/dL (0.2-1.3); Total Protein 7.9 g/dL (6.3-8.2)
[2019-08-30 14:24] VITALS: BP 139/80; PULSE 97; RESP 16
== END 2019-08-30 14:27 | disposition home or self-care (01) ==
LOC: EC 11:19 → MERGE 11:19 → EC 14:27
DX: R56.9 Unspecified convulsions (principal); R42 Dizziness and giddiness
CPT/HCPCS: 36415; 93005; 80156; 80053; 80175; 85025; 80184; 99284; 96374; 96361; G0480; J2060; 80320

== ENCOUNTER 2019-09-11 12:16 | Emergency (ER) | payer MEDICARE, OTHER ==
[2019-09-11] MEDS ORDERED: SODIUM CHLORIDE 0.9% 1,000 ML IV STA (12:23)
--- NOTE | 2019-09-11 12:28 | ED ---
General Adult HPI - General Stated complaint: Seizure Time Seen by Provider: 09/11/19 12:19 Source: EMS, RN notes reviewed, old records reviewed Mode of arrival: EMS Limitations: altered mental status - History of Present Illness Initial comments: 29-year-old male presents with suspected seizure. History is obtained from EMS. He has known seizure disorder and according to EMS he may not be compliant with his medications. He's had. Of unresponsiveness for the past 10 minutes. Unknown how long the patient had a seizure or what seizure activity was witnessed. Further history will be obtained from the family members upon arrival. EMS reports that the patient is currently taking Dilantin. Vital signs were stable during transport. - Related Data Home Medications Medication Instructions Recorded Confirmed carBAMazepine [TEGretol XR] 200 mg PO BID 11/02/17 07/17/19 Brexpiprazole [Rexulti] 2 mg PO HS 03/03/18 07/17/19 Levothyroxine Sodium [Synthroid] 50 mcg PO DAILY 03/03/18 07/17/19 [place] Carbonate 600 mg PO BID 03/03/18 07/17/19 LORazepam [Ativan] 0.5 mg PO BID PRN 10/19/18 07/17/19 PHENobarbital 129.6 mg PO HS 10/19/18 07/17/19 carBAMazepine [TEGretol XR] 400 mg PO HS 10/19/18 07/17/19 Ibuprofen [Motrin] 800 mg PO TID PRN 07/17/19 07/17/19 Lacosamide [Vimpat] 150 mg PO BID 07/17/19 07/17/19 Previous Rx's Medication Instructions Recorded lamoTRIgine [LaMICtal] 200 mg PO BID #28 tablet 07/24/17 Venlafaxine HCl ER [Effexor XR] 300 mg PO DAILY 30 Days #60 07/23/18 cap.er.24h Allergies Allergy/AdvReac Type Severity Reaction Status Date / Time No Known Allergies Allergy Verified 08/31/19 11:08 Review of Systems ROS Statement: Those systems with pertinent positive or pertinent negative responses have been documented in the HPI. ROS Other: All systems not noted in ROS Statement are negative. Past Medical History Past Medical History: GERD/Reflux, No Reported History, Seizure Disorder, Skin Disorder, Thyroid Disorder Additional Past Medical History / Comment(s): has history of epilepsy, hx grand mal seizures since childhood, migraines, acne, History of Any Multi-Drug Resistant Organisms: None Reported, Unobtainable Past Surgical History: Adenoidectomy, Appendectomy, Cholecystectomy, No Surgical Hx Reported, Tonsillectomy Additional Past Surgical History / Comment(s): oral surgery Past Anesthesia/Blood Transfusion Reactions: Previous Problems w/ Anesthesia Additional Past Anesthesia/Blood Transfusion Reaction / Comment(s): SLOW TO WAKE FROM ANESTHESIA" Past Psychological History: Depression, Unable to Obtain Smoking Status: Unknown if ever smoked Past Alcohol Use History: Occasional, Unable to Obtain Past Drug Use History: None Reported, Unable to Obtain - Past Family History Brother(s) Family Medical History: Asthma Additional Family Medical History / Comment(s): back problems Mother Family Medical History: Cancer Additional Family Medical History / Comment(s): breast cancer General Exam General appearance: obtunded Head exam: Present: atraumatic, normocephalic Eye exam: Present: normal appearance, PERRL Neck exam: Present: normal inspection. Absent: tenderness, meningismus Respiratory exam: Present: normal lung sounds bilaterally. Absent: respiratory distress, wheezes Cardiovascular Exam: Present: regular rate, normal rhythm GI/Abdominal exam: Present: soft. Absent: distended, tenderness, guarding Extremities exam: Present: normal inspection (st throughout, no flaccid paralysis), normal capillary refill, other Neurological exam: Absent: alert, oriented X3, motor sensory deficit Skin exam: Present: warm, dry, intact. Absent: cyanosis, diaphoretic Course Vital Signs 09/11/19 12:21 Temperature 98.9 F Pulse Rate 89 Respiratory 16 Rate Blood Pressure 133/83 O2 Sat by Pulse 95 Oximetry Medical Decision Making - Medical Decision Making 29-year-old male with known seizure disorder presenting with suspected seizure. Initially patient is nonresponsive stable vitals. Moving all extremities. After brief observation. He regains normal consciousness he is able to speak and provide history. He is moving all extremities with a nonfocal exam. His is at bedside is able to contribute to the history. He's on numerous antiepileptic medications and follows with an epilepsy specialist at [place]. He's been told there is nothing more that can be done at this time with medication adjustments. He does take his medication erratically including late doses of medication. His vitals are stable and his exam is reassuring. His electrolytes are normal on blood testing is normal. He is present with his who will take him home. He does not drive. He is encouraged to take his medications as prescribed on schedule. - Lab Data Result diagrams: 09/11/19 12:25 09/11/19 13:26 Lab Results 09/11/19 09/11/19 09/11/19 Range/Units 12:25 13:20 13:26 WBC 9.0 (3.8-10.6) k/uL RBC 4.94 (4.30-5.90) m/uL Hgb 14.6 (13.0-17.5) gm/dL Hct 45.8 (39.0-53.0) % MCV 92.7 (80.0-100.0) fL MCH 29.6 (25.0-35.0) pg MCHC 31.9 (31.0-37.0) g/dL RDW 12.2 (11.5-15.5) % Plt Count 245 (150-450) k/uL Neutrophils % 61 % Lymphocytes % 23 % Monocytes % 5 % Eosinophils % 9 % Basophils % 0 % Neutrophils # 5.5 (1.3-7.7) k/uL Lymphocytes # 2.1 (1.0-4.8) k/uL Monocytes # 0.4 (0-1.0) k/uL Eosinophils # 0.8 H (0-0.7) k/uL Basophils # 0.0 (0-0.2) k/uL Sodium 143 (137-145) mmol/L Potassium 4.3 (3.5-5.1) mmol/L Chloride 109 H (98-107) mmol/L Carbon Dioxide 23 (22-30) mmol/L Anion Gap 11 mmol/L BUN 10 (9-20) mg/dL Creatinine 0.82 (0.66-1.25) mg/dL Est GFR (CKD-EPI)AfAm >90 (>60 ml/min/1.73 sqM) Est GFR (CKD-EPI)NonAf >90 (>60 ml/min/1.73 sqM) Glucose 95 (74-99) mg/dL Plasma Lactic Acid Ramirez 1.2 (0.7-2.0) mmol/L Calcium 9.9 (8.4-10.2) mg/dL Total Bilirubin 0.5 (0.2-1.3) mg/dL AST 20 (17-59) U/L ALT 14 (4-49) U/L Alkaline Phosphatase 125 (38-126) U/L Total Protein 8.3 H (6.3-8.2) g/dL Albumin 4.8 (3.5-5.0) g/dL Salicylates <1.0 mg/dL Acetaminophen <10.0 ug/mL Phenytoin <3.0 ug/mL Serum Alcohol <10 mg/dL Disposition Clinical Impression: Generalized seizure Disposition: HOME SELF-CARE Condition: Fair Instructions (If sedation given, give patient instructions): Recurrent Seizures in Adults (ED) Is patient prescribed a controlled substance at d/c from ED?: No Referrals: [facility] [Primary Care Provider] - 1-2 days Time of Disposition: 14:12
[2019-09-11 13:11] LABS: Basophils % (A) 0 %; Eosinophils # (A) 0.8 k/uL (0-0.7); Eosinophils % (A) 9 %; HCT 45.8 % (39.0-53.0); HGB 14.6 gm/dL (13.0-17.5); Lymphocytes # (A) 2.1 k/uL (1.0-4.8); Lymphocytes % (A) 23 %; MCH 29.6 pg (25.0-35.0); MCHC 31.9 g/dL (31.0-37.0); MCV 92.7 fL (80.0-100.0); Mean Platelet Volume 7.6; Monocytes # (A) 0.4 k/uL (0-1.0); Monocytes % (A) 5 %; Neutrophils # (A) 5.5 k/uL (1.3-7.7); Neutrophils % (A) 61 %; Platelet Count 245 k/uL (150-450); RBC 4.94 m/uL (4.30-5.90); RDW 12.2 % (11.5-15.5)
[2019-09-11 13:49] LABS: ALT 14 U/L (4-49); AST 20 U/L (17-59); Acetaminophen <10.0 ug/mL; African American GFR (CKD) >90 (>60 ml/min/1.73 sqM); Albumin 4.8 g/dL (3.5-5.0); Alcohol <10 mg/dL; Alkaline Phosphatase 125 U/L (38-126); Anion Gap 11 mmol/L; Blood Urea Nitrogen 10 mg/dL (9-20); Calcium 9.9 mg/dL (8.4-10.2); Carbon Dioxide 23 mmol/L (22-30); Chloride 109 mmol/L (98-107); Glucose 95 mg/dL (74-99); Non-African American GFR(CKD) >90 (>60 ml/min/1.73 sqM); Potassium 4.3 mmol/L (3.5-5.1); Salicylate <1.0 mg/dL; Sodium 143 mmol/L (137-145); Total Bilirubin 0.5 mg/dL (0.2-1.3); Total Protein 8.3 g/dL (6.3-8.2)
[2019-09-11 14:04] LABS: Phenytoin (Dilantin) <3.0 ug/mL
[2019-09-11 14:44] LABS: Amphetamine Screen,Urine Not Detected (NotDetected); Barbiturate Screen,Urine Detected (NotDetected); Benzodiazepines Screen,Urine Not Detected (NotDetected); Cocaine Screen,Urine Not Detected (NotDetected); Methadone Screen, Urine Not Detected (NotDetected); Opiate Screen,Urine Not Detected (NotDetected); Oxycodone Screen, Urine Not Detected (NotDetected); Phencyclidine Screen,Urine Not Detected (NotDetected); Tricyclic Antidepressant,Urine Not Detected (NotDetected); Urn Cannabinoid Scrn Not Detected (NotDetected)
[2019-09-11 14:47] VITALS: BP 121/85; PULSE 99; RESP 18; TEMP 98.1
== END 2019-09-11 14:46 | disposition home or self-care (01) ==
LOC: EC 12:16
DX: G40.409 Other generalized epilepsy and epileptic syndromes, not intractable, without status epilepticus (principal); E07.9 Disorder of thyroid, unspecified; F32.9 Major depressive disorder, single episode, unspecified; Z79.890 Hormone replacement therapy; Z79.899 Other long term (current) drug therapy
CPT/HCPCS: 36415; 80053; 80185; 83605; 85025; 80306; 83520; 99284; 96360; G0480 ×2; 80320; 80329

== ENCOUNTER 2019-09-26 02:33 | Emergency (ER) | payer MEDICARE, OTHER ==
--- NOTE | 2019-09-26 02:39 | ED ---
Overdose HPI - General Stated Complaint: Accidental overdose Time Seen by Provider: 09/26/19 02:36 - History of Present Illness Initial Comments: Soni pleasant 29-year-old gentleman who presents the ER today for evaluation of possible accidental overdose. Patient reports he took his evening medications around 4 PM and then went to bed he woke up and forgot that he had taken his medication so he took them again around 2 AM. He then became very an xious that he may overdose, he became very nervous and vomited. He didn't see any pills in his vomitus. He called 911 for transport to the hospital. - Related Data Home Medications Medication Instructions Recorded Confirmed carBAMazepine [TEGretol XR] 200 mg PO BID 11/02/17 07/17/19 Brexpiprazole [Rexulti] 2 mg PO HS 03/03/18 07/17/19 Levothyroxine Sodium [Synthroid] 50 mcg PO DAILY 03/03/18 07/17/19 [place] Carbonate 600 mg PO BID 03/03/18 07/17/19 LORazepam [Ativan] 0.5 mg PO BID PRN 10/19/18 07/17/19 PHENobarbital 129.6 mg PO HS 10/19/18 07/17/19 carBAMazepine [TEGretol XR] 400 mg PO HS 10/19/18 07/17/19 Ibuprofen [Motrin] 800 mg PO TID PRN 07/17/19 07/17/19 Lacosamide [Vimpat] 150 mg PO BID 07/17/19 07/17/19 Previous Rx's Medication Instructions Recorded lamoTRIgine [LaMICtal] 200 mg PO BID #28 tablet 07/24/17 Venlafaxine HCl ER [Effexor XR] 300 mg PO DAILY 30 Days #60 07/23/18 cap.er.24h Allergies Allergy/AdvReac Type Severity Reaction Status Date / Time No Known Allergies Allergy Verified 08/31/19 11:08 Review of Systems ROS Statement: Those systems with pertinent positive or pertinent negative responses have been documented in the HPI. ROS Other: All systems not noted in ROS Statement are negative. Past Medical History Past Medical History: GERD/Reflux, No Reported History, Seizure Disorder, Skin Disorder, Thyroid Disorder Additional Past Medical History / Comment(s): has history of epilepsy, hx grand mal seizures since childhood, migraines, acne, History of Any Multi-Drug Resistant Organisms: None Reported, Unobtainable Past Surgical History: Adenoidectomy, Appendectomy, Cholecystectomy, No Surgical Hx Reported, Tonsillectomy Additional Past Surgical History / Comment(s): oral surgery Past Anesthesia/Blood Transfusion Reactions: Previous Problems w/ Anesthesia Additional Past Anesthesia/Blood Transfusion Reaction / Comment(s): SLOW TO WAKE FROM ANESTHESIA" Past Psychological History: Depression, Unable to Obtain Smoking Status: Unknown if ever smoked Past Alcohol Use History: Occasional, Unable to Obtain Past Drug Use History: None Reported, Unable to Obtain - Past Family History Brother(s) Family Medical History: Asthma Additional Family Medical History / Comment(s): back problems Mother Family Medical History: Cancer Additional Family Medical History / Comment(s): breast cancer General Exam - General Exam Comments Initial Comments: Physical Exam GENERAL: Patient is well-developed and well-nourished. Patient is nontoxic and well-hydrated and is in no distress. HENT: Normocephalic, Atraumatic. EYES: 4mm reactive bilaterally PULMONARY: Unlabored respirations. CARDIOVASCULAR: RRR Warm and well perfused extremities ABDOMEN: Non-distended SKIN: No rashes or bruising Skin is warm and appropriately moist : Deferred NEUROLOGIC: Alert and oriented MUSCULOSKELETAL: Moving all extremities with no apparent injury PSYCHIATRIC: Baseline for patient Medical Decision Making - Medical Decision Making Patient was seen and evaluated history is obtained from the patient and review of medical record Patient's on multiple antiseizure anxiolytic medications. Upon review patient took these medications 10 hours apart none of these would be a toxic dose. Patient is on Effexor and EKG was obtained, EKG was obtained at 2:37 AM, rate is 79 rhythm is sinus is normal axis, normal intervals, GA 180, QRS 106, QTC 426. At this time patient is medically clear for discharge home. Patient was advised not to take his morning medications and just resume medications tomorrow evening. Disposition Clinical Impression: Accidental drug ingestion Disposition: HOME SELF-CARE Condition: Stable Additional Instructions: Do not take morning medications Resume normal medication in the afternoon Return to the ER if you have any new concerns Is patient prescribed a controlled substance at d/c from ED?: No Referrals: [facility] [Primary Care Provider] - 1-2 days
[2019-09-26 02:44] VITALS: BP 133/90; PULSE 79; RESP 18; TEMP 98.6
== END 2019-09-26 03:16 | disposition home or self-care (01) ==
LOC: EC 02:33
DX: T42.71XA Poisoning by unspecified antiepileptic and sedative-hypnotic drugs, accidental (unintentional), initial encounter (principal); T43.501A Poisoning by unspecified antipsychotics and neuroleptics, accidental (unintentional), initial encounter; G40.909 Epilepsy, unspecified, not intractable, without status epilepticus; E07.9 Disorder of thyroid, unspecified; F32.9 Major depressive disorder, single episode, unspecified; Z79.890 Hormone replacement therapy; Z79.899 Other long term (current) drug therapy; Z86.69 Personal history of other diseases of the nervous system and sense organs
CPT/HCPCS: 99284

== ENCOUNTER 2019-09-27 18:02 | Emergency (ER) | payer MEDICARE, OTHER ==
[2019-09-27 18:26] VITALS: BP 131/73; PULSE 86; RESP 18; TEMP 99
--- NOTE | 2019-09-27 19:06 | ED ---
Psych HPI - General Chief Complaint: Psychiatric Symptoms Stated Complaint: Mental Health Time Seen by Provider: 09/27/19 18:36 Source: patient, RN notes reviewed Mode of arrival: ambulatory Limitations: no limitations - History of Present Illness Initial Comments: 29-year-old male presents emergency department for psychiatric evaluation. Patient states he is very depressed, suicidal. Patient states that he had the tipping point of his depression today. Patient states he had an argument with his which made things worse. Patient denies any physical complaints. Patient was here for accidental overdose yesterday. Patient denies any alcohol or drug use. Patient offers no other complaints. - Related Data Home Medications Medication Instructions Recorded Confirmed carBAMazepine [TEGretol XR] 200 mg PO BID 11/02/17 07/17/19 Brexpiprazole [Rexulti] 2 mg PO HS 03/03/18 07/17/19 Levothyroxine Sodium [Synthroid] 50 mcg PO DAILY 03/03/18 07/17/[address] [place] Carbonate 600 mg PO BID 03/03/18 07/17/19 LORazepam [Ativan] 0.5 mg PO BID PRN 10/19/18 07/17/19 PHENobarbital 129.6 mg PO HS 10/19/18 07/17/19 carBAMazepine [TEGretol XR] 400 mg PO HS 10/19/18 07/17/19 Ibuprofen [Motrin] 800 mg PO TID PRN 07/17/19 07/17/19 Lacosamide [Vimpat] 150 mg PO BID 07/17/19 07/17/19 Previous Rx's Medication Instructions Recorded lamoTRIgine [LaMICtal] 200 mg PO BID #28 tablet 07/24/17 Venlafaxine HCl ER [Effexor XR] 300 mg PO DAILY 30 Days #60 07/23/18 cap.er.24h Allergies Allergy/AdvReac Type Severity Reaction Status Date / Time No Known Allergies Allergy Verified 09/27/19 18:25 Review of Systems ROS Statement: Those systems with pertinent positive or pertinent negative responses have been documented in the HPI. ROS Other: All systems not noted in ROS Statement are negative. Past Medical History Past Medical History: GERD/Reflux, No Reported History, Seizure Disorder, Skin Disorder, Thyroid Disorder Additional Past Medical History / Comment(s): has history of epilepsy, hx grand mal seizures since childhood, migraines, acne, History of Any Multi-Drug Resistant Organisms: None Reported, Unobtainable Past Surgical History: Adenoidectomy, Appendectomy, Cholecystectomy, No Surgical Hx Reported, Tonsillectomy Additional Past Surgical History / Comment(s): oral surgery Past Anesthesia/Blood Transfusion Reactions: Previous Problems w/ Anesthesia Additional Past Anesthesia/Blood Transfusion Reaction / Comment(s): SLOW TO WAKE FROM ANESTHESIA" Past Psychological History: Depression, Unable to Obtain Smoking Status: Unknown if ever smoked Past Alcohol Use History: Occasional, Unable to Obtain Past Drug Use History: None Reported, Unable to Obtain - Past Family History Brother(s) Family Medical History: Asthma Additional Family Medical History / Comment(s): back problems Mother Family Medical History: Cancer Additional Family Medical History / Comment(s): breast cancer General Exam Limitations: no limitations General appearance: alert, in no apparent distress Head exam: Present: atraumatic, normocephalic, normal inspection Eye exam: Present: normal appearance, PERRL, EOMI. Absent: scleral icterus, conjunctival injection, periorbital swelling ENT exam: Present: normal exam, normal oropharynx, mucous membranes moist, TM's normal bilaterally Neck exam: Present: normal inspection, full ROM. Absent: tenderness, meningismus, lymphadenopathy Respiratory exam: Present: normal lung sounds bilaterally. Absent: respiratory distress, wheezes, rales, rhonchi, stridor Cardiovascular Exam: Present: regular rate, normal rhythm, normal heart sounds. Absent: systolic murmur, diastolic murmur, rubs, gallop, clicks GI/Abdominal exam: Present: soft, normal bowel sounds. Absent: distended, tenderness, guarding, rebound, rigid Neurological exam: Present: alert, oriented X3 Psychiatric exam: Present: depressed, flat affect Course Vital Signs 09/27/19 18:22 Temperature 99.0 F Pulse Rate 86 Respiratory 18 Rate Blood Pressure 131/73 O2 Sat by Pulse 99 Oximetry Medical Decision Making - Medical Decision Making Patient evaluated by EPS case discussed with psychiatrist recommends outpatient treatment. Patient has outpatient counseling set up patient contracts for safety. Patient will be discharged return parameters discussed. - Lab Data Lab Results 09/27/19 Range/Units 20:05 Urine Opiates Screen Not Detected (NotDetected) Ur Oxycodone Screen Not Detected (NotDetected) Urine Methadone Screen Not Detected (NotDetected) Ur Propoxyphene Screen Not Detected (NotDetected) Ur Barbiturates Screen Detected H (NotDetected) U Tricyclic Antidepress Not Detected (NotDetected) Ur Phencyclidine Scrn Not Detected (NotDetected) Ur Amphetamines Screen Not Detected (NotDetected) U Methamphetamines Scrn Not Detected (NotDetected) U Benzodiazepines Scrn Not Detected (NotDetected) Urine Cocaine Screen Not Detected (NotDetected) U Marijuana (THC) Screen Not Detected (NotDetected) Disposition Clinical Impression: Depression Disposition: HOME SELF-CARE Condition: Stable Instructions (If sedation given, give patient instructions): Depression (ED) Additional Instructions: Please return to the Emergency Department if symptoms worsen or any other concerns. Is patient prescribed a controlled substance at d/c from ED?: No Referrals: [facility] [Primary Care Provider] - 1-2 days Time of Disposition: 22:35
[2019-09-27 20:28] LABS: Amphetamine Screen,Urine Not Detected (NotDetected); Barbiturate Screen,Urine Detected (NotDetected); Benzodiazepines Screen,Urine Not Detected (NotDetected); Cocaine Screen,Urine Not Detected (NotDetected); Methadone Screen, Urine Not Detected (NotDetected); Opiate Screen,Urine Not Detected (NotDetected); Oxycodone Screen, Urine Not Detected (NotDetected); Phencyclidine Screen,Urine Not Detected (NotDetected); Tricyclic Antidepressant,Urine Not Detected (NotDetected); Urn Cannabinoid Scrn Not Detected (NotDetected)
== END 2019-09-27 22:37 | disposition home or self-care (01) ==
LOC: EC 18:02
DX: F32.9 Major depressive disorder, single episode, unspecified (principal); E07.9 Disorder of thyroid, unspecified; Z79.890 Hormone replacement therapy; Z79.899 Other long term (current) drug therapy
CPT/HCPCS: 80306; 82075; 99285

== ENCOUNTER 2019-12-09 21:47 | Emergency (ER) | payer MEDICARE, OTHER ==
[2019-12-09 22:06] VITALS: PULSE 88
[2019-12-09 23:12] LABS: Phencyclidine Screen,Urine Detected (NotDetected); Urn Cannabinoid Scrn Not Detected (NotDetected)
[2019-12-09 23:13] LABS: Amphetamine Screen,Urine Not Detected (NotDetected); Barbiturate Screen,Urine Detected (NotDetected); Benzodiazepines Screen,Urine Not Detected (NotDetected); Cocaine Screen,Urine Not Detected (NotDetected); Methadone Screen, Urine Not Detected (NotDetected); Opiate Screen,Urine Not Detected (NotDetected); Oxycodone Screen, Urine Not Detected (NotDetected); Tricyclic Antidepressant,Urine Not Detected (NotDetected)
--- NOTE | 2019-12-10 01:44 | ED ---
Psych HPI - General Chief Complaint: Psychiatric Symptoms Stated Complaint: Suicidal Time Seen by Provider: 12/09/19 22:18 Source: patient, police Mode of arrival: ambulatory - History of Present Illness Initial Comments: 29-year-old male patient presents to the emergency department today for evaluation of suicidal ideation. Patient states his been increasingly depressed over the last few days. Patient states today he walked down the [place] hoping to be hit by a car. Patient states that he has been hospitalized for mental health purposes over 26 times. States he has attempted suicide in the past. Patient does admit to drinking one beer earlier today. Denies any current illness or physical concerns. States he does take his antidepressant medication as directed. Denies any hallucinations. Denies homicidal ideation. Patient denies any recent rash, fever, chills, cough, shortness of breath, chest pain, abdominal pain, nausea, vomiting, diarrhea, constipation, back pain, numbness, tingling, dizziness, weakness, hematuria, dysuria, urinary urgency, urinary frequency, headache, visual changes, or any other complaints. - Related Data Home Medications Medication Instructions Recorded Confirmed carBAMazepine [TEGretol XR] 200 mg PO BID 11/02/17 07/17/19 Brexpiprazole [Rexulti] 2 mg PO HS 03/03/18 07/17/19 Levothyroxine Sodium [Synthroid] 50 mcg PO DAILY 03/03/18 07/17/19 [place] Carbonate 600 mg PO BID 03/03/18 07/17/19 LORazepam [Ativan] 0.5 mg PO BID PRN 10/19/18 07/17/19 PHENobarbital 129.6 mg PO HS 10/19/18 07/17/19 carBAMazepine [TEGretol XR] 400 mg PO HS 10/19/18 07/17/19 Ibuprofen [Motrin] 800 mg PO TID PRN 07/17/19 07/17/19 Lacosamide [Vimpat] 150 mg PO BID 07/17/19 07/17/19 Previous Rx's Medication Instructions Recorded lamoTRIgine [LaMICtal] 200 mg PO BID #28 tablet 07/24/17 Venlafaxine HCl ER [Effexor XR] 300 mg PO DAILY 30 Days #60 07/23/18 cap.er.24h Allergies Allergy/AdvReac Type Severity Reaction Status Date / Time No Known Allergies Allergy Verified 12/09/19 22:02 Review of Systems ROS Statement: Those systems with pertinent positive or pertinent negative responses have been documented in the HPI. ROS Other: All systems not noted in ROS Statement are negative. Past Medical History Past Medical History: GERD/Reflux, No Reported History, Seizure Disorder, Skin Disorder, Thyroid Disorder Additional Past Medical History / Comment(s): has history of epilepsy, hx grand mal seizures since childhood, migraines, acne, History of Any Multi-Drug Resistant Organisms: None Reported, Unobtainable Past Surgical History: Adenoidectomy, Appendectomy, Cholecystectomy, No Surgical Hx Reported, Tonsillectomy Additional Past Surgical History / Comment(s): oral surgery Past Anesthesia/Blood Transfusion Reactions: Previous Problems w/ Anesthesia Additional Past Anesthesia/Blood Transfusion Reaction / Comment(s): SLOW TO WAKE FROM ANESTHESIA" Past Psychological History: Depression, Unable to Obtain Smoking Status: Never smoker Past Alcohol Use History: Occasional Past Drug Use History: None Reported - Past Family History Brother(s) Family Medical History: Asthma Additional Family Medical History / Comment(s): back problems Mother Family Medical History: Cancer Additional Family Medical History / Comment(s): breast cancer General Exam Limitations: no limitations General appearance: alert, in no apparent distress, other (This is a well- developed, well-nourished adult male patient in no acute distress. Vital signs upon presentation are pulse 88, respirations 16, blood pressure 137/80, pulse ox 98% on room air.) Eye exam: Present: normal appearance, PERRL, EOMI. Absent: scleral icterus, conjunctival injection, periorbital swelling ENT exam: Present: normal exam, normal oropharynx, mucous membranes moist Respiratory exam: Present: normal lung sounds bilaterally. Absent: respiratory distress, wheezes, rales, rhonchi, stridor Cardiovascular Exam: Present: regular rate, normal rhythm, normal heart sounds. Absent: systolic murmur, diastolic murmur, rubs, gallop, clicks GI/Abdominal exam: Present: soft, normal bowel sounds. Absent: distended, tenderness, guarding, rebound, rigid Neurological exam: Present: alert, oriented X3, CN II-XII intact Psychiatric exam: Present: normal affect, normal mood, suicidal ideation. Absent: homicidal ideation Skin exam: Present: warm, dry, intact, normal color. Absent: rash Course Vital Signs 12/09/19 12/10/19 22:02 01:54 Temperature 97.8 F Pulse Rate 88 88 Respiratory 16 18 Rate Blood Pressure 137/80 130/78 O2 Sat by Pulse 98 100 Oximetry Medical Decision Making - Medical Decision Making 29-year-old male patient presents to the emergency department today for evaluation of suicidal ideation. Physical examination is unremarkable. He was seen and evaluated by emergency psychiatric services. It is felt that he is safe to be discharged home. EPS did develop a safety plan and went over it with the patient. Be discharged follow-up with outpatient mental health services as soon as possible. Return parameters were discussed in detail. He verbalizes understanding and agrees with this plan. - Lab Data Lab Results 12/09/19 Range/Units 22:50 Urine Opiates Screen Not Detected (NotDetected) Ur Oxycodone Screen Not Detected (NotDetected) Urine Methadone Screen Not Detected (NotDetected) Ur Propoxyphene Screen Not Detected (NotDetected) Ur Barbiturates Screen Detected H (NotDetected) U Tricyclic Antidepress Not Detected (NotDetected) Ur Phencyclidine Scrn Detected H (NotDetected) Ur Amphetamines Screen Not Detected (NotDetected) U Methamphetamines Scrn Not Detected (NotDetected) U Benzodiazepines Scrn Not Detected (NotDetected) Urine Cocaine Screen Not Detected (NotDetected) U Marijuana (THC) Screen Not Detected (NotDetected) Disposition Clinical Impression: Suicidal ideation Disposition: HOME SELF-CARE Condition: Good Instructions (If sedation given, give patient instructions): Depression (ED), Suicide Prevention (ED) Additional Instructions: Follow-up with your counselor outpatient as soon as possible. Continue all medications as directed. Return to the emergency department for any new, worsening, or concerning symptoms. Is patient prescribed a controlled substance at d/c from ED?: No Referrals: [facility] [Primary Care Provider] - 1-2 days Time of Disposition: 01:44
[2019-12-10 01:55] VITALS: BP 130/78; RESP 18; TEMP 97.8
== END 2019-12-10 01:55 | disposition home or self-care (01) ==
LOC: EC 21:47
DX: R45.851 Suicidal ideations (principal); F32.9 Major depressive disorder, single episode, unspecified; G40.909 Epilepsy, unspecified, not intractable, without status epilepticus; G43.909 Migraine, unspecified, not intractable, without status migrainosus; E07.9 Disorder of thyroid, unspecified; Z91.5 Personal history of self-harm; Z79.899 Other long term (current) drug therapy; Z79.890 Hormone replacement therapy
CPT/HCPCS: 80306; 82075; 99285

== ENCOUNTER 2020-02-20 15:09 | Emergency (ER) | payer MEDICARE, OTHER ==
[2020-02-20 15:17] VITALS: BP 136/65; RESP 20
[2020-02-20] MEDS ORDERED: ONDANSETRON 4 MG/2 ML VIAL IVP STA (15:52)
[2020-02-20] MEDS ORDERED: SODIUM CHLORIDE 0.9% 1,000 ML IV ONE (15:54)
[2020-02-20 16:12] LABS: Basophils # (A) 0.1 k/uL (0-0.2); Basophils % (A) 1 %; Eosinophils # (A) 0.8 k/uL (0-0.7); Eosinophils % (A) 11 %; HCT 45.4 % (39.0-53.0); HGB 14.8 gm/dL (13.0-17.5); Lymphocytes # (A) 2.4 k/uL (1.0-4.8); Lymphocytes % (A) 32 %; MCH 30.1 pg (25.0-35.0); MCHC 32.7 g/dL (31.0-37.0); Mean Platelet Volume 6.7; Monocytes # (A) 0.4 k/uL (0-1.0); Monocytes % (A) 5 %; Neutrophils # (A) 3.9 k/uL (1.3-7.7); Neutrophils % (A) 51 %; Platelet Count 272 k/uL (150-450); RBC 4.94 m/uL (4.30-5.90); RDW 12.5 % (11.5-15.5); WBC 7.7 k/uL (3.8-10.6)
[2020-02-20 16:21] LABS: ALT 14 U/L (4-49); AST 24 U/L (17-59); African American GFR (CKD) >90 (>60 ml/min/1.73 sqM); Albumin 4.7 g/dL (3.5-5.0); Alkaline Phosphatase 137 U/L (38-126); Anion Gap 9 mmol/L; Blood Urea Nitrogen 6 mg/dL (9-20); Calcium 9.4 mg/dL (8.4-10.2); Carbon Dioxide 23 mmol/L (22-30); Chloride 108 mmol/L (98-107); Glucose 99 mg/dL (74-99); Non-African American GFR(CKD) >90 (>60 ml/min/1.73 sqM); Potassium 4.1 mmol/L (3.5-5.1); Sodium 140 mmol/L (137-145); Total Bilirubin 0.4 mg/dL (0.2-1.3)
--- NOTE | 2020-02-20 18:06 | CT ---
EXAMINATION TYPE: CT abdomen pelvis w con DATE OF EXAM: 02/20/2020 COMPARISON: None HISTORY: ABDOMINAL PAIN AND VOMITING CT DLP: 1088.2 mGycm Automated exposure control for dose reduction was used. TECHNIQUE: Helical acquisition of images from the lung bases through the pelvis have been completed. CONTRAST: Performed without Oral Contrast and with IV Contrast, patient injected with 100 mL of Isovue 300. FINDINGS: LUNG BASES: No significant abnormality is appreciated. AORTA: No significant abnormality is appreciated. LIVER/GB: Liver is enlarged and shows low attenuation, patient is post cholecystectomy. PANCREAS: No significant abnormality is seen. SPLEEN: No significant abnormality is seen. ADRENALS: No significant abnormality is seen. KIDNEYS: No significant abnormality is seen. REPRODUCTIVE ORGANS: No significant abnormality is seen BOWEL: Colon in the right upper quadrant show some questionable wall thickening. No evident appendic itis. Fluid-filled loops of small and large bowel are noted.. FREE AIR: No Free Air visible. ASCITES: None visible. PELVIC ADENOPATHY: None visualized. RETROPERITONEAL ADENOPATHY: No Retroperitoneal Adenopathy visible. URINARY BLADDER: No significant abnormality is seen. OSSEOUS STRUCTURES: No significant abnormality is seen. IMPRESSION: HEPATOMEGALY, HEPATIC STEATOSIS. CORRELATE FOR POSSIBLE COLITIS, ENTERITIS.
--- NOTE | 2020-02-20 18:17 | ED ---
Nausea/Vomiting/Diarrhea HPI - General Chief complaint: Nausea/Vomiting/Diarrhea Stated complaint: nausea/vomiting Time Seen by Provider: 02/20/20 15:27 Source: patient Mode of arrival: ambulatory Limitations: no limitations - History of Present Illness Initial comments: 29-year-old male past history of epilepsy presenting today for chief complaint of nausea vomiting abdominal pain. Patient states she has mild discomfort in the lower abdomen he's had had diarrhea for months and nausea and vomiting that began today. Patient denies any headache dizziness denies any seizure activity. Patient denies any bloody stools. Patient denies any specific sick contacts denies any cough. Patient denies fevers chest pain shortness of breath patient is no additional complaints. . Upon arrival patient appears well signs of acute distress heart rate elevated, repeat WNL - Related Data Home Medications Medication Instructions Recorded Confirmed carBAMazepine [TEGretol XR] 200 mg PO BID 11/02/17 07/17/19 Brexpiprazole [Rexulti] 2 mg PO HS 03/03/18 07/17/19 Levothyroxine Sodium [Synthroid] 50 mcg PO DAILY 03/03/18 07/17/19 [place] Carbonate 600 mg PO BID 03/03/18 07/17/19 LORazepam [Ativan] 0.5 mg PO BID PRN 10/19/18 07/17/19 PHENobarbital 129.6 mg PO HS 10/19/18 07/17/19 carBAMazepine [TEGretol XR] 400 mg PO HS 10/19/18 07/17/19 Ibuprofen [Motrin] 800 mg PO TID PRN 07/17/19 07/17/19 Lacosamide [Vimpat] 150 mg PO BID 07/17/19 07/17/19 Previous Rx's Medication Instructions Recorded lamoTRIgine [LaMICtal] 200 mg PO BID #28 tablet 07/24/17 Venlafaxine HCl ER [Effexor XR] 300 mg PO DAILY 30 Days #60 07/23/18 cap.er.24h Ondansetron Odt [Zofran Odt] 4 mg PO Q8HR PRN 7 Days #21 tab 02/20/20 Allergies Allergy/AdvReac Type Severity Reaction Status Date / Time No Known Allergies Allergy Verified 02/20/20 15:17 Review of Systems ROS Statement: Those systems with pertinent positive or pertinent negative responses have been documented in the HPI. ROS Other: All systems not noted in ROS Statement are negative. Past Medical History Past Medical History: GERD/Reflux, Seizure Disorder, Skin Disorder, Thyroid Di sorder Additional Past Medical History / Comment(s): has history of epilepsy, hx grand mal seizures since childhood, migraines, acne, History of Any Multi-Drug Resistant Organisms: None Reported, Unobtainable Past Surgical History: Adenoidectomy, Appendectomy, Cholecystectomy, Tonsillectomy Additional Past Surgical History / Comment(s): oral surgery Past Anesthesia/Blood Transfusion Reactions: Previous Problems w/ Anesthesia Additional Past Anesthesia/Blood Transfusion Reaction / Comment(s): SLOW TO WAKE FROM ANESTHESIA" Past Psychological History: Depression, Unable to Obtain Smoking Status: Never smoker Past Alcohol Use History: Occasional Past Drug Use History: None Reported - Past Family History Brother(s) Family Medical History: Asthma Additional Family Medical History / Comment(s): back problems Mother Family Medical History: Cancer Additional Family Medical History / Comment(s): breast cancer General Exam - General Exam Comments Initial Comments: General: The patient is awake and alert, in no distress Eye: Pupils are equal, round and reactive to light, extra-ocular movements are intact. No nystagmus. There is normal conjunctiva bilaterally. No signs of icterus. Ears, nose, mouth and throat: There are moist mucous membranes and no oral lesions. Neck: The neck is supple, there is no tenderness or JVD. Cardiovascular: There is a regular rate and rhythm. No murmur, rub or gallop is appreciated. Respiratory: Lungs are clear to auscultation, respirations are non-labored, breath sounds are equal. No wheezes, stridor, rales, or rhonchi. Gastrointestinal: Soft, non-distended, mild right lower quadrant tenderness to palpation of the abdomen without masses or organomegaly noted. There is no rebound or guarding present. Musculoskeletal: Normal ROM, no tenderness. Strength 5/5. Sensation intact. Pulses equal bilaterally 2+. Neurological: A&O x 3. CN II-XII intact grossly, There are no obvious motor or sensory deficits. Coordination appears grossly intact. Speech is normal. Skin: Skin is warm and dry and no rashes or lesions are noted. Psychiatric: Cooperative, appropriate mood & affect, normal judgment. Limitations: no limitations Course Vital Signs 02/20/20 02/20/20 15:13 18:24 Pulse Rate 117 H 80 Respiratory 20 Rate Blood Pressure 136/65 O2 Sat by Pulse 99 99 Oximetry Medical Decision Making - Medical Decision Making CT shows evidence of enteritis first colitis. Patient has no bloody stools hemoglobin stable patient's heart rate normalized she does not appear toxic no fevers. Patient has history of vomiting and diarrhea which is consistent with the CT findings went with enteritis vs colitis. No evidence of acute appendicitis. patient case discussed wtih Dr. Ivey who is agreeable to care plan of symptomatic treatment, discharge with zofran and GI/PCP f/u. - Lab Data Result diagrams: 02/20/20 16:00 02/20/20 16:00 Lab Results 02/20/20 02/20/20 Range/Units 16:00 16:00 WBC 7.7 (3.8-10.6) k/uL RBC 4.94 (4.30-5.90) m/uL Hgb 14.8 (13.0-17.5) gm/dL Hct 45.4 (39.0-53.0) % MCV 92.0 (80.0-100.0) fL MCH 30.1 (25.0-35.0) pg MCHC 32.7 (31.0-37.0) g/dL RDW 12.5 (11.5-15.5) % Plt Count 272 (150-450) k/uL Neutrophils % 51 % Lymphocytes % 32 % Monocytes % 5 % Eosinophils % 11 % Basophils % 1 % Neutrophils # 3.9 (1.3-7.7) k/uL Lymphocytes # 2.4 (1.0-4.8) k/uL Monocytes # 0.4 (0-1.0) k/uL Eosinophils # 0.8 H (0-0.7) k/uL Basophils # 0.1 (0-0.2) k/uL Sodium 140 (137-145) mmol/L Potassium 4.1 (3.5-5.1) mmol/L Chloride 108 H (98-107) mmol/L Carbon Dioxide 23 (22-30) mmol/L Anion Gap 9 mmol/L BUN 6 L (9-20) mg/dL Creatinine 0.78 (0.66-1.25) mg/dL Est GFR (CKD-EPI)AfAm >90 (>60 ml/min/1.73 sqM) Est GFR (CKD-EPI)NonAf >90 (>60 ml/min/1.73 sqM) Glucose 99 (74-99) mg/dL Calcium 9.4 (8.4-10.2) mg/dL Total Bilirubin 0.4 (0.2-1.3) mg/dL AST 24 (17-59) U/L ALT 14 (4-49) U/L Alkaline Phosphatase 137 H (38-126) U/L Total Protein 8.0 (6.3-8.2) g/dL Albumin 4.7 (3.5-5.0) g/dL TSH 2.140 (0.465-4.680) mIU/L Disposition Clinical Impression: Nausea & vomiting, Diarrhea, Colitis Disposition: HOME SELF-CARE Condition: Good Instructions (If sedation given, give patient instructions): Colitis (ED) Additional Instructions: Please use medication as discussed. Please follow-up with family doctor in the next 2 day, recommend GI follow-up. Please return to emergency room if the symptoms increase or worsen or for any other concerns. Prescriptions: Ondansetron Odt [Zofran Odt] 4 mg PO Q8HR PRN 7 Days #21 tab PRN Reason: Nausea Is patient prescribed a controlled substance at d/c from ED?: No [facility] - 1-2 days Marga Doyle MD [STAFF PHYSICIAN] - 1-2 days Time of Disposition: 18:16
[2020-02-20 18:25] VITALS: PULSE 80
== END 2020-02-20 18:28 | disposition home or self-care (01) ==
LOC: EC 15:09
DX: K52.9 Noninfective gastroenteritis and colitis, unspecified (principal); G40.909 Epilepsy, unspecified, not intractable, without status epilepticus; F32.9 Major depressive disorder, single episode, unspecified; E07.9 Disorder of thyroid, unspecified; G43.909 Migraine, unspecified, not intractable, without status migrainosus; Z79.899 Other long term (current) drug therapy; Z90.49 Acquired absence of other specified parts of digestive tract
CPT/HCPCS: 36415; 80053; 84443; 85025; 74177; 96374; 96361 ×2; 99284; J2405; Q9967

== ENCOUNTER 2020-03-07 15:25 | Inpatient (IN) | payer MEDICARE, MEDICAID ==
--- NOTE | 2020-03-07 16:03 | ED ---
Psych HPI - General Source: patient Mode of arrival: ambulatory <Rachael Wheeler - Last Filed: 03/07/20 16:12> <Stephan Azul - Last Filed: 03/07/20 21:33> - General Chief Complaint: Psychiatric Symptoms Stated Complaint: Mental Health Time Seen by Provider: 03/07/20 15:39 - History of Present Illness Initial Comments: 29-year-old male with known depression, seizure disorder presenting to the emergency department for suicidal ideation. Patient is very tearful during history taking stating that this is all that he can take in his life and he wants to end it. He states he wants to cut himself with a knife, to the wrist or neck. Denies attempt. Denies taking pills in attempt at over dose patient has no additional complaints. (Rachael Wheeler) - Related Data Home Medications Medication Instructions Recorded Confirmed carBAMazepine [TEGretol XR] 200 mg PO BID 11/02/17 03/07/20 Brexpiprazole [Rexulti] 2 mg PO HS 03/03/18 03/07/20 [place] Carbonate 600 mg PO BID 03/03/18 03/07/20 LORazepam [Ativan] 0.5 mg PO BID PRN 10/19/18 03/07/20 PHENobarbital 129.6 mg PO HS 10/19/18 03/07/20 carBAMazepine [TEGretol XR] 400 mg PO HS 10/19/18 03/07/20 Ibuprofen [Motrin] 800 mg PO TID PRN 07/17/19 03/07/20 Lacosamide [Vimpat] 150 mg PO BID 07/17/19 03/07/20 Levothyroxine Sodium [Synthroid] 75 mcg PO DAILY 03/07/20 03/07/20 Previous Rx's Medication Instructions Recorded lamoTRIgine [LaMICtal] 200 mg PO BID #28 tablet 07/24/17 Venlafaxine HCl ER [Effexor XR] 300 mg PO DAILY 30 Days #60 07/23/18 cap.er.24h Ondansetron Odt [Zofran Odt] 4 mg PO Q8HR PRN 7 Days #21 tab 02/20/20 Allergies Allergy/AdvReac Type Severity Reaction Status Date / Time No Known Allergies Allergy Verified 03/07/20 17:18 Review of Systems ROS Other: All systems not noted in ROS Statement are negative. <Rachael Wheeler - Last Filed: 03/07/20 16:12> ROS Other: All systems not noted in ROS Statement are negative. <Stephan Azul - Last Filed: 03/07/20 21:33> ROS Statement: Those systems with pertinent positive or pertinent negative responses have been documented in the HPI. Past Medical History Past Medical History: GERD/Reflux, Seizure Disorder, Skin Disorder, Thyroid Disorder Additional Past Medical History / Comment(s): has history of epilepsy, hx grand mal seizures since childhood, migraines, acne, History of Any Multi-Drug Resistant Organisms: None Reported, Unobtainable Past Surgical History: Adenoidectomy, Appendectomy, Cholecystectomy, Tonsillectomy Additional Past Surgical History / Comment(s): oral surgery Past Anesthesia/Blood Transfusion Reactions: Previous Problems w/ Anesthesia Additional Past Anesthesia/Blood Transfusion Reaction / Comment(s): SLOW TO WAKE FROM ANESTHESIA" Past Psychological History: Depression, Unable to Obtain Smoking Status: Never smoker Past Alcohol Use History: Occasional Past Drug Use History: None Reported - Past Family History Brother(s) Family Medical History: Asthma Additional Family Medical History / Comment(s): back problems Mother Family Medical History: Cancer Additional Family Medical History / Comment(s): breast cancer <Rachael Wheeler - Last Filed: 03/07/20 16:12> General Exam Limitations: no limitations <Rachael Wheeler - Last Filed: 03/07/20 16:12> - General Exam Comments Initial Comments: General: The patient is awake and alert, in no distress Eye: Pupils are equal, round and reactive to light, extra-ocular movements are intact. No nystagmus. There is normal conjunctiva bilaterally. No signs of icterus. Ears, nose, mouth and throat: There are moist mucous membranes and no oral lesions. Neck: The neck is supple, there is no tenderness or JVD. Cardiovascular: There is a regular rate and rhythm. No murmur, rub or gallop is appreciated. Respiratory: Lungs are clear to auscultation, respirations are non-labored, breath sounds are equal. No wheezes, stridor, rales, or rhonchi. Gastrointestinal: Soft, non-distended, non-tender abdomen without masses or organomegaly noted. There is no rebound or guarding present. Musculoskeletal: Normal ROM, no tenderness. Strength 5/5. Sensation intact. Radial pulses equal bilaterally 2+. Neurological: A&O x 3. CN II-XII intact grossly, There are no obvious motor or sensory deficits. Coordination appears grossly intact. Speech is normal. Skin: Skin is warm and dry and no rashes or lesions are noted. Psychiatric: Cooperative, tearful (Rachael Wheeler) Course <Stephan Azul - Last Filed: 03/07/20 21:33> Vital Signs 03/07/20 03/07/20 15:33 18:49 Temperature 98.5 F Pulse Rate 86 66 Respiratory 18 18 Rate Blood Pressure 170/83 114/88 O2 Sat by Pulse 99 96 Oximetry - Reevaluation(s) Reevaluation #1: 03/07/20 21:33 PA supervision: I personally evaluate this case the patient did present with complaints of suicidal thoughts and ideation. I did fill out a clinical certification of the patient. Patient will be admitted to this facility for inpatient treatment (Stephan Azul) Medical Decision Making <Rachael Wheeler - Last Filed: 03/07/20 16:12> - Medical Decision Making 2yo presenting today for cc of suicidal ideations with plan. Petitioned by police officers. Medically cleared for EPS evaluation. EPS recommended (Rachael Wheeler) - Lab Data Lab Results 03/07/20 Range/Units 16:35 Urine Color Yellow Urine Appearance Clear (Clear) Urine pH 6.5 (5.0-8.0) Ur Specific [place] 1.016 (1.001-1.035) Urine Protein Negative (Negative) Urine Glucose (UA) Negative (Negative) Urine Ketones Negative (Negative) Urine Blood Negative (Negative) Urine Nitrite Negative (Negative) Urine Bilirubin Negative (Negative) Urine Urobilinogen <2.0 (<2.0) mg/dL Ur Leukocyte Esterase Negative (Negative) Urine Opiates Screen Not Detected (NotDetected) Ur Oxycodone Screen Not Detected (NotDetected) Urine Methadone Screen Not Detected (NotDetected) Ur Propoxyphene Screen Not Detected (NotDetected) Ur Barbiturates Screen Detected H (NotDetected) U Tricyclic Antidepress Not Detected (NotDetected) Ur Phencyclidine Scrn Not Detected (NotDetected) Ur Amphetamines Screen Not Detected (NotDetected) U Methamphetamines Scrn Not Detected (NotDetected) U Benzodiazepines Scrn Not Detected (NotDetected) Urine Cocaine Screen Not Detected (NotDetected) U Marijuana (THC) Screen Not Detected (NotDetected) Disposition <Rachael Wheeler - Last Filed: 03/07/20 16:12> <Stephan Azul - Last Filed: 03/07/20 21:33> Clinical Impression: Depression, Suicidal ideation Disposition: TRANSFER TO PSYCH HOSP/UNIT Condition: Stable Referrals: [facility] [Primary Care Provider] - 1-2 days
[2020-03-07 16:52] LABS: Appearance,Urine Clear (Clear); Bilirubin,Urine Negative (Negative); Blood,Urine Negative (Negative); Color,Urine Yellow; Glucose,Urine (UA) Negative (Negative); Ketones,Urine Negative (Negative); Leukocyte Esterase,Urine Negative (Negative); Nitrite,Urine Negative (Negative); PH, Urine 6.5 (5.0-8.0); Protein,Urine Negative (Negative); Specific Gravity,Urine 1.016 (1.001-1.035); Urobilinogen,Urine <2.0 mg/dL (<2.0)
[2020-03-07 17:01] LABS: Amphetamine Screen,Urine Not Detected (NotDetected); Barbiturate Screen,Urine Detected (NotDetected); Benzodiazepines Screen,Urine Not Detected (NotDetected); Cocaine Screen,Urine Not Detected (NotDetected); Methadone Screen, Urine Not Detected (NotDetected); Opiate Screen,Urine Not Detected (NotDetected); Oxycodone Screen, Urine Not Detected (NotDetected); Phencyclidine Screen,Urine Not Detected (NotDetected); Tricyclic Antidepressant,Urine Not Detected (NotDetected); Urn Cannabinoid Scrn Not Detected (NotDetected)
[2020-03-07] MEDS ORDERED: IBUPROFEN 600 MG TAB PO STA (21:41)
[2020-03-08] MEDS ORDERED: ONDANSETRON ODT 4 MG TAB PO PRN (00:07)
[2020-03-08] MEDS ORDERED: MAG HYDROX/AL HYDROX/SIMETH 30 ML CUP PO PRN (00:08)
[2020-03-08] MEDS ORDERED: ZIPRASIDONE 20 MG VIAL IM PRN (00:08)
[2020-03-08] MEDS ORDERED: ACETAMINOPHEN TAB 325 MG TAB PO PRN (00:08)
[2020-03-08] MEDS ORDERED: MAGNESIUM HYDROXIDE 2,400 MG/10 ML CUP PO PRN (00:08)
[2020-03-08] MEDS ORDERED: LORazepam 1 MG TAB PO PRN (00:08)
[2020-03-08] MEDS ORDERED: LORazepam 2 MG/ML INJ IM PRN (00:09)
--- NOTE | 2020-03-08 04:22 | P.CONS ---
History of Present Illness - Reason for Consult Consult date: 03/08/20 - History of Present Illness Patient is a 29-year-old male with a PMH of seizure disorder, development delay, and depression presented to the ED with complaints of suicidal ideation and depression. The patient was admitted to the mental health unit. He was seen and evaluated. The patient had reported to the ED that he wanted to end his life by cutting himself with a knife. At the interview, the patient noted feeling somewhat better since admission though endorsed continued suicidal ideation. He otherwise denied any additional complaints including chest pain, shortness of fever, chills, nausea, vomiting, abdominal pain, or diarrhea. Review of Systems Pertinent positives and negatives as discussed in HPI, a complete review of systems was performed and all other systems are negative. Past Medical History Past Medical History: GERD/Reflux, Seizure Disorder, Skin Disorder, Thyroid Disorder Additional Past Medical History / Comment(s): has history of epilepsy, hx grand mal seizures since childhood, migraines, acne, History of Any Multi-Drug Resistant Organisms: None Reported, Unobtainable Past Surgical History: Adenoidectomy, Appendectomy, Cholecystectomy, Tonsillectomy Additional Past Surgical History / Comment(s): oral surgery Past Anesthesia/Blood Transfusion Reactions: Previous Problems w/ Anesthesia Additional Past Anesthesia/Blood Transfusion Reaction / Comm: SLOW TO WAKE FROM ANESTHESIA" Past Psychological History: Depression, Unable to Obtain Additional Psychological History / Comment(s): per pt-he was in special education classes thru out school(has some intellectual disabilty), speech impediment. able to read and write. Smoking Status: Never smoker Past Alcohol Use History: Occasional Additional Past Alcohol Use History / Comment(s): Denies any alcohol intake since he is on probation til April 2019 Past Drug Use History: None Reported Additional Drug Use History / Comment(s): Denies any illicit drugs or any marijuana use - Past Family History Brother(s) Family Medical History: Asthma Additional Family Medical History / Comment(s): back problems Mother Family Medical History: Cancer Additional Family Medical History / Comment(s): breast cancer Medications and Allergies Home Medications Medication Instructions Recorded Confirmed Type lamoTRIgine [LaMICtal] 200 mg PO BID #28 tablet 07/24/17 03/08/20 Rx carBAMazepine [TEGretol XR] 200 mg PO BID 11/02/17 03/08/20 History Brexpiprazole [Rexulti] 2 mg PO HS 03/03/18 03/08/20 History [place] Carbonate 600 mg PO BID 03/03/18 03/08/20 History Venlafaxine HCl ER [Effexor XR] 300 mg PO DAILY 30 Days #60 07/23/18 03/08/20 Rx cap.er.24h LORazepam [Ativan] 0.5 mg PO BID PRN 10/19/18 03/08/20 History PHENobarbital 129.6 mg PO HS 10/19/18 03/08/20 History carBAMazepine [TEGretol XR] 400 mg PO HS 10/19/18 03/08/20 History Ibuprofen [Motrin] 800 mg PO TID PRN 07/17/19 03/08/20 History Lacosamide [Vimpat] 150 mg PO BID 07/17/19 03/08/20 History Ondansetron Odt [Zofran Odt] 4 mg PO Q8HR PRN 7 Days #21 tab 02/20/20 03/08/20 R x Levothyroxine Sodium [Synthroid] 75 mcg PO DAILY 03/07/20 03/08/20 History Allergies Allergy/AdvReac Type Severity Reaction Status Date / Time No Known Allergies Allergy Verified 03/08/20 01:11 Physical Exam Vitals: Vital Signs Temp Pulse Pulse Resp BP BP Pulse Ox 03/08/20 00:32 98.9 F 83 15 133/78 97 03/08/20 00:19 88 18 121/71 98 03/07/20 18:49 66 18 114/88 96 03/07/20 15:33 98.5 F 86 18 170/83 99 Intake and Output 03/07/20 03/07/20 03/08/20 14:59 22:59 06:59 Other: Weight 99.79 kg 99.79 kg General: non toxic, no distress, appears at stated age, obese Derm: no unusual rashes/lesions no unusual ecchymoses, warm, dry Head: atraumatic, normocephalic, symmetric Eyes: EOMI, no lid lag, anicteric sclera, pupils equal round reactive to light ENT: Nose and ears atraumatic, no thrush, no pharyngeal erythema Neck: No thyromegaly, no cervical lymphadenopathy, trachea midline, supple Mouth: no lip lesion, mucus membranes moist Cardiovascular: S1S2 reg, no murmur, positive posterior tibial pulse bilateral, no edema, capillary refill less than 2 seconds Lungs: CTA bilateral, no rhonchi, no rales , no accessory muscle use Abdominal: soft, nontender to palpation, no guarding, no appreciable organomegaly, normal bowel sounds Ext: no gross muscle atrophy, muscle strength 5 out of 5 in all 4 extremities grossly, no contractures, Neuro: CN II-XI grossly intact, light touch intact all 4 extremities, finger to nose within normal limits, Psych: Alert, oriented, depressed affect Results Labs: Abnormal Lab Results - Last 24 Hours (Table) 03/07/20 Range/Units 16:35 Ur Barbiturates Screen Detected H (NotDetected) Assessment and Plan Plan: Seizure disorder -Continue with home meds Hypothyroidism -Continue with home levothyroxine Depression and suicidal ideation -As per psychiatry Thank you for allowing us to participate in the care of this patient. We will follow peripherally. Do not hesitate to contact us with questions. Someone can be reached from the [facility] hospitalist group at all hours of the day at [phone].
[2020-03-08] MEDS: LEVOTHYROXINE 75 MCG TAB PO SCH (06:28)
[2020-03-08] MEDS: lamoTRIgine 100 MG TAB PO SCH ×2 (09:02→20:54)
[2020-03-08] MEDS: VENLAFAXINE HCL ER 150 MG CAP PO SCH (09:03)
[2020-03-08] MEDS: LITHIUM CARBONATE 300 MG CAP PO SCH ×2 (09:03→20:54)
[2020-03-08] MEDS: LACOSAMIDE 150 MG TABLET PO SCH (10:45)
--- NOTE | 2020-03-08 13:07 | P.HP ---
Psychiatric H&P - . H&P Date: 03/08/20 History & Physical: IDENTIFYING DATA: He is a 29-year-old developmentally disabled man who is well known to this service from his multiple past admissions. He presented to the unit involuntary with complaints of depression and suicidal ideation. HISTORY OF PRESENT ILLNESS: I interviewed the patient, spoke to his and his brother. A police captain precinct completed a petition describing suicidal ideation and a threat to cut himself with a knife. He told the EPS in the that he plan to cut himself "until the blood out." EPS nurse also noted that threatened to kill his , their childhood himself night. The police reported that he had a knife when they arrived at the home. He admitted to feeling depressed and having thoughts of suicide. He admitted that he had threatened to cut himself with a knife but relinquished it to the police and did not act on the thoughts. He denied that he plans or threatened to kill his and his child. I could not understand his explanation of the reason for his distress. It appears that resulted after an argument with his (all his past admissions were related to an argument with his or disruption in the relationship). His stated that he has been pestering a new neighbor who has 2 children the same age has theirs. She stated that the neighbor had been avoiding him because he is so intrusive and has such poor insight or understanding of social cues. Yesterday, he went to that neighbor's house and asked if her children could come over to their house to play. The neighbor declined and instead invited his son to her house to play on their trampoline. His son and his are in the back yard by the [place]. He asked her if their son could go to the neighbor's house and play with the children. She told him no that the want to remain in the backyard by the pool. After she declined her request he became angry, hostile and rude. She states he began cursing at her. She alleged that he made such statements as "you stupid cunt." She asked a friend friend to speak with him. Instead he began to text her rude statements and posed a false statement on Facebook that she is trying to take his child from him. He was texting also and spoke with his brother on the telephone. She stated that he called the police. When the police arrived he threw with the kitchen knife that he had in his pocket on the driveway. I spoke to his brother. His brother stated that Stephan was distressed and has "these episodes" when he in his have an argument. He told his brother that he was having thoughts of cutting himself with a kitchen knife. His brother denied that he had made a statement to hurt his child or his . PAST PSYCHIATRIC HISTORY: He is had multiple psychiatric hospitalization. The nurse estimates between 15-20 to this unit. He was last discharged in June 2018 with the diagnoses of major depressive disorder, intellectual disability, borderline personality traits and seizure disorder. He is engaged with community mental health. He is in their ACT program. PAST MEDICAL HISTORY: He has a history of a seizure disorder and takes for antiseizure medications-Tegretol, Vimpat, Lamictal and phenobarbital. He believes that his last seizure was "last year". ALLERGIES: NO KNOWN DRUG ALLERGIES SUBSTANCE USE HISTORY: He denied the use of drugs and alleged on a social pattern of alcohol use. His expressed concern about excess alcohol use. FAMILY PSYCHIATRIC/SUBSTANCE USE HISTORY: Unknown LEGAL HISTORY: He is not on probation, parole or has pending charges. He has past charges of domestic violence. SOCIAL HISTORY: His born and raised in [place]. He spent his special education and graduated from program at 17. 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 He is currently unemployed and receives security disability. He is for 4 years and has one 4-year-old child. His is also disabled. MENTAL STATUS EXAM: He presented as a tall somewhat disheveled appearing 29-year-old male who was pleasant and cooperative. She made eye contact and appeared to attend to the interview. He had a distressed distinction features are prominent physical abnormalities. He had a distressed facial expression. He had psychomotor retardation but no abnormal movements. Her speech was spontaneous, dysarthric but decreased volume and amount. His affect was dysphoric. He denied current suicidal ideation or wishes. He denied homicidal ideation. He expressed feelings of hopelessness and helplessness with regard to his marital relationship. He did not express clear ideas reference, paranoid ideation or delusional thoughts. His thinking was very concrete but his associations were goal directed. He denied hallucinations didn't appear to be responding to internal stimuli. Call impression of intellect is below average. He has limited understanding awareness of his illness but excessive need for treatment. STRENGTHS: Stable income, stable housing, engagement with community mental health services WEAKNESSES: Intellectual disability, seizure disorder, poor interpersonal skills and problem solving. IMPRESSION: He has a 29-year-old developmentally disabled man who came to the unit involuntarily with complaints of suicidal ideation and a threat to cut himself. He has had multiple psychiatric hospitalizations. All hospitalizations are related to a disruption in his interpersonal relationship. The current distress appears to be resulted from argument with his . Although the EPS note indicates threats towards his and children, abdominal evidence from [place] was , humorous brother to support this allegation. He is on the petition completed by police captain precinct only identifies suicidal threats. He should be treated inpatient basis with combination of psychopharmacology and multimodal therapy. PRINCIPLE DIAGNOSIS: Suicidal ideation, adjustment disorder with disturbance of mood and conduct, intellectual disability, seizure disorder, cluster B personality traits. RECOMMENDATION: Admit the psychiatric unit. Safety precautions. Completed the second clinical certificate and proceeded with involuntary hospitalization. Consult medicine for initial physical exam and medical history. dope and fabric worker completed initial psychosocial assessment and coordinate discharge and aftercare services. Continue outpatient psychotropic medications including Rexalti to 2 mg at bedtime him a lithium 600 mg twice a day and Effexor XL 300 mg daily. Continue antiseizure medications including Tegretol ex are 20 mg twice a day and 400 mg at bedtime, Vimpat 150 mg twice a day, Lamictal 200 mg twice a day and phenobarbital 129.6 mg at bedtime. Encourage participation in therapeutic groups and activities. Evaluate clinical status response to treatment daily basis. Allergies Allergy/AdvReac Type Severity Reaction Status Date / Time No Known Allergies Allergy Verified 03/08/20 01:11 Vital Signs Temp 97.7 F 03/08/20 06:49 Pulse 67 03/08/20 06:49 Resp 16 03/08/20 06:49 BP 109/62 03/08/20 06:49 Pulse Ox 97 03/08/20 00:32 Intake & Output 03/07/20 03/08/20 03/08/20 18:59 06:59 18:59 Weight 99.79 kg 99.79 kg Laboratory Last Values Urine Color Yellow 03/07/20 16:35 Urine Appearance Clear (Clear) 03/07/20 16:35 Urine pH 6.5 (5.0-8.0) 03/07/20 16:35 Ur Specific [place] 1.016 (1.001-1.035) 03/07/20 16:35 Urine Protein Negative (Negative) 03/07/20 16:35 Urine Glucose (UA) Negative (Negative) 03/07/20 16:35 Urine Ketones Negative (Negative) 03/07/20 16:35 Urine Blood Negative (Negative) 03/07/20 16:35 Urine Nitrite Negative (Negative) 03/07/20 16:35 Urine Bilirubin Negative (Negative) 03/07/20 16:35 Urine Urobilinogen <2.0 mg/dL (<2.0) 03/07/20 16:35 Ur Leukocyte Esterase Negative (Negative) 03/07/20 16:35 Urine Opiates Screen Not Detected (NotDetected) 03/07/20 16:35 Ur Oxycodone Screen Not Detected (NotDetected) 03/07/20 16:35 Urine Methadone Screen Not Detected (NotDetected) 03/07/20 16:35 Ur Propoxyphene Screen Not Detected (NotDetected) 03/07/20 16:35 Ur Barbiturates Screen Detected (NotDetected) H 03/07/20 16:35 U Tricyclic Antidepress Not Detected (NotDetected) 03/07/20 16:35 Ur Phencyclidine Scrn Not Detected (NotDetected) 03/07/20 16:35 Ur Amphetamines Screen Not Detected (NotDetected) 03/07/20 16:35 U Methamphetamines Scrn Not Detected (NotDetected) 03/07/20 16:35 U Benzodiazepines Scrn Not Detected (NotDetected) 03/07/20 16:35 [place] 0.6 mmol/L 03/08/20 00:52 Urine Cocaine Screen Not Detected (NotDetected) 03/07/20 16:35 U Marijuana (THC) Screen Not Detected (NotDetected) 03/07/20 16:35 03/08/20 12:37
[2020-03-08] MEDS: carBAMazepine 400 MG TAB.ER.12H PO SCH (21:53)
[2020-03-08] MEDS: PHENobarbital 64.8 MG TAB PO SCH (21:56)
[2020-03-08] MEDS: LACOSAMIDE 50 MG TABLET PO SCH (21:59)
[2020-03-08] MEDS: Brexpiprazole [Rexulti] PO SCH (22:00)
[2020-03-09] MEDS: LEVOTHYROXINE 75 MCG TAB PO SCH (07:08)
[2020-03-09] MEDS: LACOSAMIDE 50 MG TABLET PO SCH ×2 (08:21→20:54)
[2020-03-09] MEDS: lamoTRIgine 100 MG TAB PO SCH ×2 (08:22→20:54)
[2020-03-09] MEDS: VENLAFAXINE HCL ER 150 MG CAP PO SCH (08:22)
[2020-03-09] MEDS: LITHIUM CARBONATE 300 MG CAP PO SCH ×2 (08:22→20:54)
[2020-03-09 08:43] LABS: ALT 15 U/L (4-49); AST 20 U/L (17-59); African American GFR (CKD) >90 (>60 ml/min/1.73 sqM); Albumin 4.5 g/dL (3.5-5.0); Alkaline Phosphatase 134 U/L (38-126); Anion Gap 10 mmol/L; Blood Urea Nitrogen 11 mg/dL (9-20); Calcium 9.4 mg/dL (8.4-10.2); Carbon Dioxide 24 mmol/L (22-30); Chloride 107 mmol/L (98-107); Cholesterol 230 mg/dL (<200); Glucose 97 mg/dL (74-99); HDL Cholesterol 38 mg/dL (40-60); LDL Cholesterol,Calculated 157 mg/dL (0-99); Non-African American GFR(CKD) >90 (>60 ml/min/1.73 sqM); Potassium 4.2 mmol/L (3.5-5.1); Sodium 141 mmol/L (137-145); Total Bilirubin 0.5 mg/dL (0.2-1.3); Triglycerides 174 mg/dL (<150)
[2020-03-09 09:04] LABS: Basophils # (A) 0.1 k/uL (0-0.2); Basophils % (A) 1 %; Eosinophils # (A) 0.7 k/uL (0-0.7); Eosinophils % (A) 7 %; HCT 46.5 % (39.0-53.0); HGB 14.7 gm/dL (13.0-17.5); Lymphocytes # (A) 2.5 k/uL (1.0-4.8); Lymphocytes % (A) 26 %; MCH 30.1 pg (25.0-35.0); MCHC 31.6 g/dL (31.0-37.0); MCV 95.1 fL (80.0-100.0); Mean Platelet Volume 6.7; Monocytes # (A) 0.5 k/uL (0-1.0); Monocytes % (A) 5 %; Neutrophils # (A) 5.9 k/uL (1.3-7.7); Neutrophils % (A) 60 %; Platelet Count 266 k/uL (150-450); RBC 4.89 m/uL (4.30-5.90); RDW 12.8 % (11.5-15.5); WBC 9.7 k/uL (3.8-10.6)
--- NOTE | 2020-03-09 13:32 | P.PN ---
Progress Note - Text Progress Note Date: 03/09/20 Clinical Problems: Suicidal ideation, adjustment disorder with disturbance of mood and conduct, intellectual disability, seizure disorder, cluster B personality traits Interim history: I reviewed the medical record, interviewed the patient and discuss his treatment and treatment plan during team meeting. Yesterday afternoon at approximately 1600 he had an episode that appears to be on a partial complex seizure. Nurse describes that he began to posture and station. He could not speak or explain what was happening to him. He was diaphoretic, moving his jaw and clenching his fists. His blood pressure was elevated at 186/100. The symptoms resolve with 1 mg of Ativan IM. He has no recollection of this event. In response to my opinion that he had a seizure, he replied "that would explain why I feels so weak and tired." He stated that usually has grand mal tonic-clonic seizures. He denied that feelings are signs of an impending seizure but always fees feels weak, fatigued and tired postictally. An EEG was completed this morning and he is scheduled to have his antiseizure medication tired or suspicious or tomorrow. He has posed no management problems and had no episodes of behavioral dyscontrol. Mental status exam: He presented as a casually groomed tall male who walked with the unsteady gait. His speech was dysarthric, slow and monotone. His affect was blunted. She denied suicidal ideation or wishes. He did not express psychotic symptoms including ideas reference, thought insertion or paranoid delusions. He denied hallucinations did not appear to be responding to internal stimuli. Assessment: They have observed seizure on the unit yesterday and is currently experiencing postictal symptoms. Plan: Continue inpatient treatment. continue safety precautions. Depending on the results of the EEG and anti-seizure titers reconsult neurology. I asked him to call his to have her bring in his prescription of Rexsalti since it's nonformulary. Continue Effexor 300 mg daily. Continue she is in [id number] 200 mg twice a day and 400 mg at bedtime, Vimpat 150 mg twice a day, Lamictal 200 mg twice a day and phenobarbital 129.6 at bedtime. Ativan 1 mg 3 times a day when necessary for agitation or anxiety. Encourage participation in therapeutic groups and activities as tolerated. Evaluate clinical status response to treatment on a daily basis.
[2020-03-09 17:36] LABS: Hemoglobin A1C 4.7 % (4.0-6.0)
[2020-03-09] MEDS: PHENobarbital 64.8 MG TAB PO SCH (20:53)
[2020-03-09] MEDS: carBAMazepine 400 MG TAB.ER.12H PO SCH (23:05)
[2020-03-09] MEDS: Brexpiprazole [Rexulti] PO SCH (23:05)
[2020-03-10] MEDS: LEVOTHYROXINE 75 MCG TAB PO SCH (06:11)
[2020-03-10] MEDS: LACOSAMIDE 50 MG TABLET PO SCH (09:00)
[2020-03-10] MEDS: VENLAFAXINE HCL ER 150 MG CAP PO SCH (09:57)
[2020-03-10] MEDS: lamoTRIgine 100 MG TAB PO SCH ×2 (09:57→21:28)
[2020-03-10] MEDS: LITHIUM CARBONATE 300 MG CAP PO SCH ×2 (09:57→21:28)
[2020-03-10] MEDS: LACOSAMIDE 150 MG TABLET PO SCH ×3 (10:27→21:28)
--- NOTE | 2020-03-10 14:00 | P.PN ---
Progress Note - Text Progress Note Date: 03/10/20 Clinical Problems: Suicidal ideation, adjustment disorder with disturbance of mood and conduct, intellectual disability, seizure disorder, cluster B personality traits Interim history: I reviewed the medical record, interviewed the patient and discuss his treatment and treatment plan during team meeting. He complained of feeling tired but much less fatigued than he was yesterday. He can perseverated about discharge but did not object to my recommendation for him to stay over the weekend until we have results of the EEG and the serum levels of his antiseizure medications. He is had no further seizure activity. He is had no episodes of behavioral dyscontrol. He has been compliant with prescribed medications. The results of the EEG are still pending. His carbamazepine level was 4.73, other tests pending I spoke to his about this seizure. She stated that he is had similar e xperiences at home that sometimes progressed to generalized seizures. She was relieved that we found no evidence to support the allegation that he threatened her or his child. She is unable to bring Rexalti because it is delivered weekly basis by [facility] and they have really picked up the medications that he has not used since admission. She also mentioned that he has an upcoming appointment with an epilepsy specialist. Mental status exam: He presented as a casually groomed tall male who walked with the unsteady gait. His speech was dysarthric, slow and monotone. His affect was blunted and depressed. She denied suicidal ideation or wishes. He did not express psychotic symptoms including ideas reference, thought insertion or paranoid delusions. He denied hallucinations did not appear to be responding to internal stimuli. Assessment: He has had no seizure activity was last 24 hours and no episodes of behavioral dyscontrol. Plan: Continue inpatient treatment. Continue safety precautions. Depending on the results of the EEG and anti-seizure titers reconsult neurology. Continue Effexor 300 mg daily. Continue she is in [id number]-[id number] 200 mg twice a day and 400 mg at bedtime, Vimpat 150 mg twice a day, Lamictal 200 mg twice a day and phenobarbital 129.6 at bedtime. Ativan 1 mg 3 times a day when necessary for agitation or anxiety. Encourage participation in therapeutic groups and activities as tolerated. Evaluate clinical status response to treatment on a daily basis.
[2020-03-10] MEDS: Brexpiprazole [Rexulti] PO SCH (21:27)
[2020-03-10] MEDS: carBAMazepine 400 MG TAB.ER.12H PO SCH (21:28)
[2020-03-10] MEDS: PHENobarbital 64.8 MG TAB PO SCH (21:43)
[2020-03-11] MEDS: LEVOTHYROXINE 75 MCG TAB PO SCH (06:28)
[2020-03-11] MEDS: LITHIUM CARBONATE 300 MG CAP PO SCH ×2 (08:48→21:36)
[2020-03-11] MEDS: VENLAFAXINE HCL ER 150 MG CAP PO SCH (08:48)
[2020-03-11] MEDS: LACOSAMIDE 150 MG TABLET PO SCH ×2 (08:48→21:36)
[2020-03-11] MEDS: lamoTRIgine 100 MG TAB PO SCH ×2 (08:48→21:36)
--- NOTE | 2020-03-11 10:55 | EEG ---
ELECTROENCEPHALOGRAM REPORT DATE OF STUDY: 03/09/2020 REFERRING PHYSICIAN: Dr. Perera. CLINICAL HISTORY: This is a 20 channel EEG with 1 channel EKG recording on a 29-year-old male to evaluate for epileptiform discharges. FINDINGS: Wakefulness, drowsiness and stage 2 sleep were obtained during the recording. In the maximal awake state, a moderate voltage 8.5 to 9 hertz posterior dominant background rhythm was demonstrated. This is regulated, sustained, symmetric and reactive to eye opening. Low-voltage faster frequencies were best seen over the frontal central head regions. Photic stimulation produced a symmetric driving response and a few flash frequencies. Drowsiness and stage 2 sleep were manifested by attenuation of the posterior dominant background rhythm and the appearance of symmetric vertex waves/sleep spindles. No epileptiform discharges or focal lateralizing features are present. SUMMARY: Normal awake, drowsy and sleep EEG. INTERPRETATION: This EEG is within normal limits for age. No epileptiform discharges or focal lateralizing features are present. MMODL / IJN: [id number] /
--- NOTE | 2020-03-11 11:57 | P.PN ---
Progress Note - Text Progress Note Date: 03/11/20 Interval history: Patient was seen wandering the hallways and was directable and agreeable to s peak with music writer. Patient claims that he is doing "all right today" and did not offer any complaints. Patient wanted to review his medications and states that he is taking them every day. Patient states that his mood is been gradually improving on the unit. Qa Engineer discussed with patient the results of his EEG which was read by the neurologist. Patient claims that he is sleeping well at night and has been going to groups and has a fair appetite. At this time patient denies any suicidal or homicidal ideations intent or plan. Denies any Auditory or visual hallucinations. Patient denies any side effects from the medications and has been compliant with meds. Mental status exam: General Appearance: Patient appears to be stated age is alert, directable, and cooperative. Fair hygiene. Behavior: No agitated behavior. Patient is calm and directable Speech: Patient's speech is fluent and nonpressured. Mood/Affect: Mood is improving mildly, affect is congruent and constricted. Suicidality/Homicidality: Patient denies having any suicidal or homicidal ideation intent or plan. Perceptions: Patient denies any auditory or visual hallucinations. Though content/process: There is no evidence of any delusional thought content and thought process is linear and goal-directed. Lovilia. Memory and concentration: AOX3, grossly intact for the purposes of this session Judgment and insight: improving mildly Assessment/Plan: Continue with current diagnosis. Patient continues to meet criteria for inpatient psychiatric admission for symptom stabilization and safety.Patient will be maintained on current psychotropic medication regimen. Qa Engineer reviewed patient's medications and his EEG results with the patient. Monitor for medication compliance and for any psychotropic medication side effects. Will continue to monitor ongoing response to treatment. Encouraged participation in milieu.
[2020-03-11] MEDS: PHENobarbital 64.8 MG TAB PO SCH (21:35)
[2020-03-11] MEDS: carBAMazepine 400 MG TAB.ER.12H PO SCH (21:36)
[2020-03-11] MEDS: Brexpiprazole [Rexulti] PO SCH (21:39)
[2020-03-12] MEDS: LEVOTHYROXINE 75 MCG TAB PO SCH (06:40)
[2020-03-12] MEDS: lamoTRIgine 100 MG TAB PO SCH ×2 (08:47→21:38)
[2020-03-12] MEDS: LACOSAMIDE 150 MG TABLET PO SCH ×2 (08:47→21:38)
[2020-03-12] MEDS: VENLAFAXINE HCL ER 150 MG CAP PO SCH (08:47)
[2020-03-12] MEDS: LITHIUM CARBONATE 300 MG CAP PO SCH ×2 (08:47→21:38)
--- NOTE | 2020-03-12 10:17 | P.PN ---
Progress Note - Text Progress Note Date: 03/12/20 Interval history: Patient was seen taking part in group this morning and was directable and agr eeable to speak with pattern chart writer. Patient claims that he is doing better today. He offered no overnight complaints and states that he was able to sleep well throughout the night. She was fairly concrete and appropriate during the encounter. He states that he is going to the groups and finding them helpful for him. Patient was again asking about discharge possibly tomorrow. He claims that he has a fair appetite. At this time patient denies any suicidal or homicidal ideations intent or plan. Denies any Auditory or visual hallucinations. Patient denies any side effects from the medications and has been compliant with meds. Mental status exam: General Appearance: Patient appears to be stated age is alert, directable, and cooperative. Fair hygiene. Behavior: No agitated behavior. Patient is calm and directable Speech: Patient's speech is fluent and nonpressured. Mood/Affect: Mood is improving mildly, affect is congruent and constricted. Suicidality/Homicidality: Patient denies having any suicidal or homicidal ideation intent or plan. Perceptions: Patient denies any auditory or visual hallucinations. Though content/process: There is no evidence of any delusional thought content and thought process is linear and goal-directed. Kimmell. Memory and concentration: AOX3, grossly intact for the purposes of this session Judgment and insight: improving mildly Assessment/Plan: Continue with current diagnosis. Patient continues to meet criteria for inpatient psychiatric admission for symptom stabilization and safety.Patient will be maintained on current psychotropic medication regimen. Monitor for medication compliance and for any psychotropic medication side effects. Will continue to monitor ongoing response to treatment. Encouraged participation in milieu.
[2020-03-12] MEDS: Brexpiprazole [Rexulti] PO SCH (21:35)
[2020-03-12] MEDS: carBAMazepine 400 MG TAB.ER.12H PO SCH (21:36)
[2020-03-12] MEDS: PHENobarbital 64.8 MG TAB PO SCH (21:37)
[2020-03-13 06:54] VITALS: BP 102/67; PULSE 74; RESP 17; TEMP 98.4
[2020-03-13] MEDS: LITHIUM CARBONATE 300 MG CAP PO SCH (09:02)
[2020-03-13] MEDS: lamoTRIgine 100 MG TAB PO SCH (09:03)
[2020-03-13] MEDS: VENLAFAXINE HCL ER 150 MG CAP PO SCH (09:03)
[2020-03-13] MEDS: LACOSAMIDE 150 MG TABLET PO SCH (09:03)
[2020-03-13] MEDS: LEVOTHYROXINE 75 MCG TAB PO SCH (09:41)
[2020-03-13 09:45] LABS: Lamotrigine (Lamictal) 2.5 ug/mL (2.0-15.0)
--- NOTE | 2020-03-13 12:06 | P.DS ---
Providers Date of admission: 03/08/20 00:00 Attending physician: Luciano Perera MD Consults: 03/08/20 00:08 Consult Physician Routine Consulting Provider: [facility] Consult Reason/Comments: H&P and medical Do you want consulting provider notified?: Yes Primary care physician: [facility] Diagnosis(es) (1) Suicidal ideation Status: Resolved Priority: Low (2) Adjustment disorder with mixed disturbance of emotions and conduct Status: Resolved Priority: High (3) Seizure disorder Status: Chronic Priority: High (4) Intellectual disability Status: Chronic Priority: High Hospital Course: He is a 29-year-old developmentally disabled man who is well known to this service from his multiple past admissions. He presented to the unit involuntary with complaints of depression and suicidal ideation. A airplane first officer completed a petition describing suicidal ideation and a threat to cut himself with a knife. He told the EPS in the that he plan to cut himself "until the blood out." EPS nurse also noted that threatened to kill his , their childhood himself night. The police reported that he had a knife when they arrived at the home. He admitted to feeling depressed and having thoughts of suicide. He admitted that he had threatened to cut himself with a knife but relinquished it to the police and did not act on the thoughts. He denied that he plans or threatened to kill his and his child. I could not understand his explanation of the reason for his distress. It appears that resulted after an argument with his (all his past admissions were related to an argument with his or disruption in the relationship). His stated that he has been pestering a new neighbor who has 2 children the same age has theirs. She stated that the neighbor had been avoiding him because he is so intrusive and has such poor insight or understanding of social cues. Yesterday, he went to that neighbor's house and asked if her children could come over to their house to play. The neighbor declined and instead invited his son to her house to play on their trampoline. His son and his are in the back yard by the pool. He asked her if their son could go to the neighbor's house and play with the children. She told him no that the want to remain in the backyard by the pool. After she declined her request he became angry, hostile and rude. She states he began cursing at her. She alleged that he made such statements as "you stupid cunt." She asked a friend friend to speak with him. Instead he began to text her rude statements and posed a false statement on Facebook that she is trying to take his child from him. He was texting also and spoke with his brother on the telephone. She stated that he called the police. When the police arrived he threw with the kitchen knife that he had in his pocket on the driveway. I spoke to his brother. His brother stated that Stephan was distressed and has "these episodes" when he in his have an argument. He told his brother that he was having thoughts of cutting himself with a kitchen knife. His brother denied that he had made a statement to hurt his child or his . He is had multiple psychiatric hospitalization. The nurse estimates between 15-20 to this unit. He was last discharged in June 2018 with the diagnoses of major depressive disorder, intellectual disability, borderline personality traits and seizure disorder. He is engaged with community mental health. [facility] is in [facility]. We admitted him to the psychiatric unit voluntarily under care of this clinical writer. We provided a copy has a biopsychosocial assessment. The showroom consultant production line technician completed initial physical exam medical history. The production line technician diagnosed seizure disorder and hypothyroidism. We continued his outpatient medications including Lamictal 200 mg twice a day, Tegretol-XR 400 mg at bedtime and 200 mg twice a day, phenobarbital 129.6 mg at bedtime and lacosamide 150 mg twice a day. His carbamazepine level was 4.7, Lamictal 2.5 and phenobarbital 18.9. We also continued his outpatient psychotropic medications including Effexor XR 300 mg allen and lithium 600 mg by mouth twice a day. Brexpiprazole 2 mg at bedtime is nonformulary and his was unable to bring this medicine to Hospital. During hospitalization he had a partial complex seizure (he normally experiences grand mal seizures). I spoke to his and she reported that he occasionally has partial complex seizures at home. His neurologist has referred him to a epilepsy specialist at [facility] due to the intractable nature of his seizures. He was compliant with treatment and posed no management problem and he had no episodes of behavioral dyscontrol. Given the intractable nature seizures I suspect that His psychiatric symptoms and the problems that led to this hospitalization are related to his seizure disorder. At the time of discharge she presented as a casually groomed 29-year-old male who was pleasant on approach. This is gait was slow and unsteady. His speech was dysarthric. His affect was stable and appropriate. He denied suicidal ideation and wishes. He denied homicidal ideation. He denied feeling hopeless, helpless and worthless. He did not express ideas reference, paranoid ideation or delusions. His thinking is very concrete but his associations were goal-directed. He denied hallucinations did not appear to responding to internal stimuli. Patient Condition at Discharge: Stable Plan - Discharge Summary New Discharge Prescriptions: Continue lamoTRIgine [LaMICtal] 200 mg PO BID #28 tablet carBAMazepine [TEGretol XR] 200 mg PO BID Brexpiprazole [Rexulti] 2 mg PO HS [place] Carbonate 600 mg PO BID Venlafaxine HCl ER [Effexor XR] 300 mg PO DAILY 30 Days #60 cap.er.24h PHENobarbital 129.6 mg PO HS carBAMazepine [TEGretol XR] 400 mg PO HS LORazepam [Ativan] 0.5 mg PO BID PRN PRN Reason: Anxiety Lacosamide [Vimpat] 150 mg PO BID Ibuprofen [Motrin] 800 mg PO TID PRN PRN Reason: Pain Ondansetron Odt [Zofran ODT] 4 mg PO Q8HR PRN 7 Days #21 tab PRN Reason: Nausea Levothyroxine Sodium [Synthroid] 75 mcg PO DAILY Discharge Medication List lamoTRIgine [LaMICtal] 200 mg PO BID #28 tablet 07/24/17 [Rx] carBAMazepine [TEGretol XR] 200 mg PO BID 11/02/17 [History] Brexpiprazole [Rexulti] 2 mg PO HS 03/03/18 [History] [place] Carbonate 600 mg PO BID 03/03/18 [History] Venlafaxine HCl ER [Effexor XR] 300 mg PO DAILY 30 Days #60 cap.er.24h 07/23/18 [Rx] LORazepam [Ativan] 0.5 mg PO BID PRN 10/19/18 [History] PHENobarbital 129.6 mg PO HS 10/19/18 [History] carBAMazepine [TEGretol XR] 400 mg PO HS 10/19/18 [History] Ibuprofen [Motrin] 800 mg PO TID PRN 07/17/19 [History] Lacosamide [Vimpat] 150 mg PO BID 07/17/19 [History] Ondansetron Odt [Zofran ODT] 4 mg PO Q8HR PRN 7 Days #21 tab 02/20/20 [Rx] Levothyroxine Sodium [Synthroid] 75 mcg PO DAILY 03/07/20 [History] Follow up Appointment(s)/Referral(s): [facility] [Outside] - 03/17/20 8:30 am (03-17-20 @ 8:[address] Slater at [facility] office on [address].) [facility] [Primary Care Provider] - 1-2 days Patient Instructions/Handouts: Depression (DC), Suicide Prevention (DC) Activity/Diet/Wound Care/Special Instructions: Activity and diet as tolerated. Avoid the use of street drugs and alcohol. Take all medications as prescribed. When you are in need of refills on your medications please contact your medical provider and/or outpatient psychiatrist to have this done. Please go to scheduled outpatient appointment for aftercare treatment. If symptoms return or become worse, call the crisis line at and/or go to the nearest emergency room for evaluation. Discharge Disposition: HOME SELF-CARE
== END 2020-03-13 11:00 | disposition home or self-care (01) | DRG 882 ==
LOC: EC 15:25 → 3MHU 03-08
PROVIDERS: ADMIT Psychiatry & Neurology Psychiatry; ATTEND Psychiatry & Neurology Psychiatry
DX: F43.25 Adjustment disorder with mixed disturbance of emotions and conduct (principal); G40.219 Localization-related (focal) (partial) symptomatic epilepsy and epileptic syndromes with complex partial seizures, intractable, without status epilepticus; R45.851 Suicidal ideations; F79 Unspecified intellectual disabilities; F32.9 Major depressive disorder, single episode, unspecified; K21.9 Gastro-esophageal reflux disease without esophagitis; E03.9 Hypothyroidism, unspecified; G43.909 Migraine, unspecified, not intractable, without status migrainosus; R62.50 Unspecified lack of expected normal physiological development in childhood; R03.0 Elevated blood-pressure reading, without diagnosis of hypertension; R47.1 Dysarthria and anarthria; Z79.899 Other long term (current) drug therapy; Z79.890 Hormone replacement therapy; Z56.0 Unemployment, unspecified; Z90.49 Acquired absence of other specified parts of digestive tract; Z98.890 Other specified postprocedural states; Z82.5 Family history of asthma and other chronic lower respiratory diseases; Z80.3 Family history of malignant neoplasm of breast
CPT/HCPCS: 80053; 80061; 80156; 80175; 80178; 80184; 80235; 80306; 81003; 82075; 83036; 84443; 85025; 95819; 99285

== ENCOUNTER 2020-04-08 21:38 | Inpatient (IN) | payer MEDICARE, MEDICAID ==
--- NOTE | 2020-04-08 22:31 | ED ---
General Adult HPI - General Chief complaint: Psychiatric Symptoms Stated complaint: Mental Health Time Seen by Provider: 04/08/20 21:47 Source: patient, police, RN notes reviewed, old records reviewed Mode of arrival: ambulatory Limitations: no limitations - History of Present Illness Initial comments: 30-year-old male patient long psychiatric history previously ED for suicidal ideations. Patient reports that he has stresses at home. Reports he has been feeling suicidal has also hurt himself with a knife. Denies any homicidal ideations. Denies any actions to hurt himself today. He denies any physical complaints. - Related Data Home Medications Medication Instructions Recorded Confirmed carBAMazepine [TEGretol XR] 200 mg PO BID 11/02/17 04/08/20 [place] Carbonate 600 mg PO BID 03/03/18 04/08/20 LORazepam [Ativan] 0.5 mg PO BID PRN 10/19/18 04/08/20 PHENobarbital 129.6 mg PO HS 10/19/18 04/08/20 carBAMazepine [TEGretol XR] 400 mg PO HS 10/19/18 04/08/20 Ibuprofen [Motrin] 800 mg PO TID PRN 07/17/19 04/08/20 Lacosamide [Vimpat] 150 mg PO BID 07/17/19 04/08/20 Levothyroxine Sodium [Synthroid] 75 mcg PO DAILY 03/07/20 04/08/20 Brexpiprazole [Rexulti] 3 mg PO HS 04/08/20 04/08/20 Previous Rx's Medication Instructions Recorded lamoTRIgine [LaMICtal] 200 mg PO BID #28 tablet 07/24/17 Venlafaxine HCl ER [Effexor XR] 300 mg PO DAILY 30 Days #60 07/23/18 cap.er.24h Ondansetron Odt [Zofran ODT] 4 mg PO Q8HR PRN 7 Days #21 tab 02/20/20 Allergies Allergy/AdvReac Type Severity Reaction Status Date / Time No Known Allergies Allergy Verified 04/08/20 23:13 Review of Systems ROS Statement: Those systems with pertinent positive or pertinent negative responses have been documented in the HPI. ROS Other: All systems not noted in ROS Statement are negative. Past Medical History Past Medical History: GERD/Reflux, Seizure Disorder, Skin Disorder, Thyroid Disorder Additional Past Medical History / Comment(s): has history of epilepsy, hx grand mal seizures since childhood, migraines, acne, History of Any Multi-Drug Resistant Organisms: None Reported, Unobtainable Past Surgical History: Adenoidectomy, Appendectomy, Cholecystectomy, Tonsillectomy Additional Past Surgical History / Comment(s): oral surgery Past Anesthesia/Blood Transfusion Reactions: Previous Problems w/ Anesthesia Additional Past Anesthesia/Blood Transfusion Reaction / Comment(s): SLOW TO WAKE FROM ANESTHESIA" Past Psychological History: Depression, Unable to Obtain Smoking Status: Never smoker Past Alcohol Use History: Occasional Past Drug Use History: None Reported - Past Family History Brother(s) Family Medical History: Asthma Additional Family Medical History / Comment(s): back problems Mother Family Medical History: Cancer Additional Family Medical History / Comment(s): breast cancer General Exam - General Exam Comments Initial Comments: Constitutional: NAD, AOX3. HEENT: NC/AT, trachea midline, neck supple, no lymphadenopathy. External ears appear normal, without discharge. Mucous membranes moist. EOM intact. There is no scleral icterus. No pallor noted. Cardiopulmonary: RRR, no murmurs, rubs or gallops, no JVD noted. Lungs CTAB in anterior and posterior moya. No peripheral edema. Neuro: CN II-XII grossly intact. No nuchal rigidity. No raccon eyes, no mckeon sign, no hemotympanum. No cervical spinal tenderness. MSK: No posterior calf tenderness bilaterally, homans sign negative bilaterally. Posterior tibialis and radial pulse +2 bilaterally. Sensation intact in upper and lower extremities. Full active ROM in upper and lower extremities, 5/5 stregnth. Limitations: no limitations Course Vital Signs 04/08/20 21:42 Temperature 98.7 F Pulse Rate 113 H Respiratory 20 Rate Blood Pressure 153/87 O2 Sat by Pulse 97 Oximetry Medical Decision Making - Medical Decision Making 30-year-old male patient presents for evaluation of suicidal ideations. Denies any physical complaints. Physical exam did not display acute pathology. Patient evaluated by emergency psychiatric services recommended admission. Case discussed with Dr. Grant. - Lab Data Lab Results 04/08/20 Range/Units 22:13 Urine Color Yellow Urine Appearance Cloudy (Clear) Urine pH 6.5 (5.0-8.0) Ur Specific Ozone 1.018 (1.001-1.035) Urine Protein 1+ H (Negative) Urine Glucose (UA) Negative (Negative) Urine Ketones Negative (Negative) Urine Blood Negative (Negative) Urine Nitrite Negative (Negative) Urine Bilirubin Negative (Negative) Urine Urobilinogen <2.0 (<2.0) mg/dL Ur Leukocyte Esterase Negative (Negative) Urine RBC 14 H (0-5) /hpf Urine WBC 4 (0-5) /hpf Urine Mucus Moderate H (None) /hpf Urine Sperm Many H (None) /hpf Urine Opiates Screen Not Detected (NotDetected) Ur Oxycodone Screen Not Detected (NotDetected) Urine Methadone Screen Not Detected (NotDetected) Ur Propoxyphene Screen Not Detected (NotDetected) Ur Barbiturates Screen Detected H (NotDetected) U Tricyclic Antidepress Not Detected (NotDetected) Ur Phencyclidine Scrn Not Detected (NotDetected) Ur Amphetamines Screen Not Detected (NotDetected) U Methamphetamines Scrn Not Detected (NotDetected) U Benzodiazepines Scrn Not Detected (NotDetected) Urine Cocaine Screen Not Detected (NotDetected) U Marijuana (THC) Screen Not Detected (NotDetected) Disposition Clinical Impression: Suicidal ideations Disposition: ADMITTED IP TO THIS [facility] Condition: Serious Is patient prescribed a controlled substance at d/c from ED?: No
[2020-04-08] MEDS ORDERED: ACETAMINOPHEN TAB 325 MG TAB PO PRN (23:00)
[2020-04-08] MEDS ORDERED: LORazepam 1 MG TAB PO PRN (23:00)
[2020-04-08] MEDS ORDERED: MAGNESIUM HYDROXIDE 2,400 MG/10 ML CUP PO PRN (23:00)
[2020-04-08] MEDS ORDERED: MAG HYDROX/AL HYDROX/SIMETH 30 ML CUP PO PRN (23:00)
[2020-04-08] MEDS ORDERED: IBUPROFEN 800 MG TAB PO PRN (23:03)
[2020-04-08] MEDS ORDERED: LORazepam 0.5 MG TAB PO PRN (23:03)
[2020-04-08] MEDS ORDERED: ONDANSETRON ODT 4 MG TAB PO PRN (23:03)
[2020-04-08 23:05] LABS: Appearance,Urine Cloudy (Clear); Bilirubin,Urine Negative (Negative); Blood,Urine Negative (Negative); Color,Urine Yellow; Glucose,Urine (UA) Negative (Negative); Ketones,Urine Negative (Negative); Leukocyte Esterase,Urine Negative (Negative); Mucus,Urine Moderate /hpf; Nitrite,Urine Negative (Negative); PH, Urine 6.5 (5.0-8.0); Protein,Urine 1+ (Negative); RBC,Urine 14 /hpf (0-5); Specific Gravity,Urine 1.018 (1.001-1.035); Sperm,Urine Many /hpf; Urobilinogen,Urine <2.0 mg/dL (<2.0); WBC,Urine 4 /hpf (0-5)
[2020-04-08 23:10] LABS: Amphetamine Screen,Urine Not Detected (NotDetected); Barbiturate Screen,Urine Detected (NotDetected); Benzodiazepines Screen,Urine Not Detected (NotDetected); Cocaine Screen,Urine Not Detected (NotDetected); Methadone Screen, Urine Not Detected (NotDetected); Opiate Screen,Urine Not Detected (NotDetected); Oxycodone Screen, Urine Not Detected (NotDetected); Phencyclidine Screen,Urine Not Detected (NotDetected); Tricyclic Antidepressant,Urine Not Detected (NotDetected); Urn Cannabinoid Scrn Not Detected (NotDetected)
[2020-04-09] MEDS ORDERED: ZIPRASIDONE 20 MG VIAL IM PRN (01:00)
[2020-04-09] MEDS ORDERED: LEVOTHYROXINE 75 MCG TAB PO SCH (06:30)
[2020-04-09 06:34] VITALS: TEMP 98.6
[2020-04-09 07:27] LABS: Basophils % (A) 1 %; Eosinophils # (A) 0.8 k/uL (0-0.7); Eosinophils % (A) 8 %; HCT 45.3 % (39.0-53.0); HGB 14.2 gm/dL (13.0-17.5); Lymphocytes # (A) 3.5 k/uL (1.0-4.8); Lymphocytes % (A) 36 %; MCH 29.7 pg (25.0-35.0); MCHC 31.3 g/dL (31.0-37.0); MCV 94.9 fL (80.0-100.0); Mean Platelet Volume 6.4; Monocytes # (A) 0.5 k/uL (0-1.0); Monocytes % (A) 5 %; Neutrophils # (A) 4.6 k/uL (1.3-7.7); Neutrophils % (A) 48 %; Platelet Count 290 k/uL (150-450); RBC 4.78 m/uL (4.30-5.90); RDW 12.9 % (11.5-15.5); WBC 9.6 k/uL (3.8-10.6)
[2020-04-09 07:40] LABS: ALT 14 U/L (4-49); AST 20 U/L (17-59); African American GFR (CKD) >90 (>60 ml/min/1.73 sqM); Albumin 4.6 g/dL (3.5-5.0); Alkaline Phosphatase 123 U/L (38-126); Anion Gap 7 mmol/L; Blood Urea Nitrogen 8 mg/dL (9-20); Calcium 9.4 mg/dL (8.4-10.2); Carbon Dioxide 27 mmol/L (22-30); Chloride 107 mmol/L (98-107); Cholesterol 207 mg/dL (<200); Glucose 98 mg/dL (74-99); HDL Cholesterol 43 mg/dL (40-60); LDL Cholesterol,Calculated 128 mg/dL (0-99); Non-African American GFR(CKD) >90 (>60 ml/min/1.73 sqM); Potassium 4.5 mmol/L (3.5-5.1); Sodium 141 mmol/L (137-145); Total Bilirubin 0.4 mg/dL (0.2-1.3); Total Protein 7.6 g/dL (6.3-8.2); Triglycerides 182 mg/dL (<150)
[2020-04-09] MEDS ORDERED: lamoTRIgine 100 MG TAB PO SCH (09:00)
[2020-04-09] MEDS ORDERED: LITHIUM CARBONATE 300 MG CAP PO SCH (09:00)
[2020-04-09] MEDS ORDERED: LACOSAMIDE 150 MG TABLET PO SCH (09:00)
[2020-04-09] MEDS ORDERED: VENLAFAXINE HCL ER 150 MG CAP PO SCH (09:00)
[2020-04-09 09:43] VITALS: PULSE 116
[2020-04-09 09:45] VITALS: BP 140/79; RESP 20
[2020-04-09] MEDS ORDERED: carBAMazepine 400 MG TAB.ER.12H PO SCH (21:00)
[2020-04-09] MEDS ORDERED: PHENobarbital 32.4 MG TAB PO SCH (21:00)
[2020-04-09] MEDS ORDERED: BREXPIPRAZOLE 2 MG PO SCH (21:00)
[2020-04-10 11:39] LABS: Hemoglobin A1C 4.9 % (4.0-6.0)
== END 2020-04-09 09:08 | disposition short-term general hospital (02) | DRG 881 ==
LOC: EC 21:38 → 3MHU 22:54
PROVIDERS: ADMIT Psychiatry & Neurology Psychiatry; ATTEND Psychiatry & Neurology Psychiatry
DX: F32.9 Major depressive disorder, single episode, unspecified (principal); R45.851 Suicidal ideations; G40.409 Other generalized epilepsy and epileptic syndromes, not intractable, without status epilepticus; F79 Unspecified intellectual disabilities; K21.9 Gastro-esophageal reflux disease without esophagitis; R47.9 Unspecified speech disturbances; G43.909 Migraine, unspecified, not intractable, without status migrainosus; E03.9 Hypothyroidism, unspecified; Z79.899 Other long term (current) drug therapy; Z79.890 Hormone replacement therapy; Z90.49 Acquired absence of other specified parts of digestive tract; Z80.3 Family history of malignant neoplasm of breast; Z82.5 Family history of asthma and other chronic lower respiratory diseases
CPT/HCPCS: 80053; 80061; 80306; 81001; 82075; 83036; 84443; 85025; 99285

== ENCOUNTER 2020-04-09 09:04 | Inpatient (IN) | payer MEDICARE, OTHER ==
[2020-04-09] MEDS: LITHIUM CARBONATE 300 MG CAP PO SCH ×2 (10:01→21:31)
[2020-04-09] MEDS: lamoTRIgine 100 MG TAB PO SCH ×2 (10:01→21:31)
[2020-04-09] MEDS: LACOSAMIDE 150 MG TABLET PO SCH ×2 (10:01→21:31)
[2020-04-09 10:40] LABS: Basophils # (A) 0.1 k/uL (0-0.2); Basophils % (A) 1 %; Eosinophils # (A) 0.7 k/uL (0-0.7); Eosinophils % (A) 7 %; HCT 42.4 % (39.0-53.0); HGB 14.3 gm/dL (13.0-17.5); Lymphocytes # (A) 1.4 k/uL (1.0-4.8); Lymphocytes % (A) 16 %; MCH 31.9 pg (25.0-35.0); MCHC 33.8 g/dL (31.0-37.0); MCV 94.5 fL (80.0-100.0); Mean Platelet Volume 7.1; Monocytes # (A) 0.4 k/uL (0-1.0); Monocytes % (A) 4 %; Neutrophils # (A) 6.4 k/uL (1.3-7.7); Neutrophils % (A) 71 %; Platelet Count 251 k/uL (150-450); RBC 4.49 m/uL (4.30-5.90); RDW 12.8 % (11.5-15.5)
[2020-04-09 10:43] LABS: ALT 15 U/L (4-49); AST 21 U/L (17-59); African American GFR (CKD) >90 (>60 ml/min/1.73 sqM); Albumin 4.4 g/dL (3.5-5.0); Alkaline Phosphatase 127 U/L (38-126); Anion Gap 8 mmol/L; Blood Urea Nitrogen 9 mg/dL (9-20); Calcium 9.2 mg/dL (8.4-10.2); Carbon Dioxide 25 mmol/L (22-30); Chloride 107 mmol/L (98-107); Glucose 104 mg/dL (74-99); Magnesium 2.4 mg/dL (1.6-2.3); Non-African American GFR(CKD) >90 (>60 ml/min/1.73 sqM); Phosphorus 1.3 mg/dL (2.5-4.5); Potassium 4.4 mmol/L (3.5-5.1); Sodium 140 mmol/L (137-145); Total Bilirubin 0.4 mg/dL (0.2-1.3); Total Protein 7.4 g/dL (6.3-8.2)
[2020-04-09] MEDS ORDERED: ONDANSETRON 4 MG/2 ML VIAL IVP PRN (11:10)
[2020-04-09] MEDS ORDERED: IBUPROFEN 400 MG TAB PO PRN (11:10)
[2020-04-09] MEDS ORDERED: ACETAMINOPHEN TAB 325 MG TAB PO PRN (11:10)
[2020-04-09] MEDS ORDERED: NALOXONE 0.4 MG/ML 1 ML VIAL IV PRN (11:10)
--- NOTE | 2020-04-09 11:10 | P.HPIM ---
History of Present Illness H&P Date: 04/09/20 Chief Complaint: Seizure Physical 30-year-old male with a past medical history of epilepsy, thyroid disorder, GERD, and depression who initially was admitted to the mental health unit secondary to suicidal ideation. On the mental health unit he was noted to have a seizure. On my discussion with the nurse it sounded like it was a tonic clonic with loss of consciousness. It was aborted without any medical intervention. He has subsequently been admitted to the medical unit. Patient is currently post ictal. He denies any pain anywhere. He is unsure if he struck his head. He is unsure if he took his medications last night. He did give me permission to speak with his . states that he was a follow-up asked unit at [facility] and waite d initially been on the program to get his medications delivered once a day and he had recently moved into bed being delivered once weekly and a blister packet. He has a history of not taking his medications at appropriate times. She reports that yesterday he became angry and depressed and suicidal. She took herself and her child to safety and then was called by police and they were taking him to the hospital. She was also called by the cafeteria manager from [facility]. [facility]. He recently established care. [facility]. He has a history of his stay approximately one year ago at the epilepsy monitoring unit with a slowly wean his medications for 5 days to see what his seizures occurred. His reports that his sleeping patterns have been very irregular, he has been consuming a lot of energy drinks. His eating has been irregular as well. He is up all night and then once take naps frequently throughout the day. Review of Systems unable to obtain as patient is post ictal. ROS unobtainable: due to mental status Past Medical History Past Medical History: GERD/Reflux, Seizure Disorder, Skin Disorder, Thyroid Disorder Additional Past Medical History / Comment(s): has history of epilepsy, hx grand mal seizures since childhood, migraines, acne, History of Any Multi-Drug Resistant Organisms: None Reported, Unobtainable Past Surgical History: Adenoidectomy, Appendectomy, Cholecystectomy, Tonsillectomy Additional Past Surgical History / Comment(s): oral surgery Past Anesthesia/Blood Transfusion Reactions: Previous Problems w/ Anesthesia Additional Past Anesthesia/Blood Transfusion Reaction / Comment(s): SLOW TO WAKE FROM ANESTHESIA" Past Psychological History: Depression, Unable to Obtain Additional Psychological History / Comment(s): per pt-he was in special education classes thru out school(has some intellectual disabilty), speech impediment. able to read and write. Smoking Status: Never smoker Past Alcohol Use History: Occasional Additional Past Alcohol Use History / Comment(s): Denies any alcohol intake since he is on probation til April 2019 Past Drug Use History: None Reported Additional Drug Use History / Comment(s): Denies any illicit drugs or any marijuana use - Past Family History Brother(s) Family Medical History: Asthma Additional Family Medical History / Comment(s): back problems Mother Family Medical History: Cancer Additional Family Medical History / Comment(s): breast cancer Medications and Allergies Home Medications Medication Instructions Recorded Confirmed Type lamoTRIgine [LaMICtal] 200 mg PO BID #28 tablet 07/24/17 04/09/20 Rx carBAMazepine [TEGretol XR] 200 mg PO BID 11/02/17 04/09/20 History [place] Carbonate 600 mg PO BID 03/03/18 04/09/20 History Venlafaxine HCl ER [Effexor XR] 300 mg PO DAILY 30 Days #60 07/23/18 04/09/20 Rx cap.er.24h LORazepam [Ativan] 0.5 mg PO BID PRN 10/19/18 04/09/20 History PHENobarbital 129.6 mg PO HS 10/19/18 04/09/20 History carBAMazepine [TEGretol XR] 400 mg PO HS 10/19/18 04/09/20 History Lacosamide [Vimpat] 150 mg PO BID 07/17/19 04/09/20 History Levothyroxine Sodium [Synthroid] 75 mcg PO DAILY 03/07/20 04/09/20 History Brexpiprazole [Rexulti] 3 mg PO HS 04/08/20 04/09/20 History Allergies Allergy/AdvReac Type Severity Reaction Status Date / Time No Known Allergies Allergy Verified 04/09/20 10:31 Physical Exam Osteopathic Statement: *. No significant issues noted on an osteopathic structural exam other than those noted in the History and Physical/Consult. Vitals: Vital Signs Temp Pulse Resp BP Pulse Ox 04/09/20 09:30 98.6 F 98 16 134/78 95 Intake and Output 04/08/20 04/09/20 04/09/20 22:59 06:59 14:59 Other: Weight 100.244 kg General: non toxic, no distress, appears at stated age, normal weight Derm: no unusual rashes/lesions no unusual ecchymoses, warm, dry Head: atraumatic, normocephalic, symmetric Eyes: EOMI, no lid lag, anicteric sclera, pupils equal round reactive to light ENT: Nose and ears atraumatic, no thrush, no pharyngeal erythema Neck: No thyromegaly, no cervical lymphadenopathy, trachea midline, supple Mouth: no lip lesion, mucus membranes moist Cardiovascular: S1S2 reg, no murmur, positive posterior tibial pulse bilateral, no edema, capillary refill less than 2 seconds Lungs: CTA bilateral, no rhonchi, no rales , no accessory muscle use Abdominal: soft, nontender to palpation, no guarding, no appreciable organomegaly, normal bowel sounds Ext: no gross muscle atrophy, muscle strength 5 out of 5 in all 4 extremities grossly, no contractures, Neuro: CN II-XI grossly intact, light touch intact all 4 extremities, finger to nose within normal limits, Psych: lethargic but oriented Results CBC & Chem 7: 04/09/20 10:00 04/09/20 10:00 Labs: Abnormal Lab Results - Last 24 Hours (Table) 04/09/20 Range/Units 10:00 Glucose 104 H (74-99) mg/dL Phosphorus 1.3 L (2.5-4.5) mg/dL Magnesium 2.4 H (1.6-2.3) mg/dL Alkaline Phosphatase 127 H (38-126) U/L Thrombosis Risk Factor Assmnt - DVT/VTE Prophylaxis DVT/VTE Prophylaxis: Pharmacologic Prophylaxis ordered - Choose All That Apply Any of the Below Risk Factors Present?: Yes Each Factor Represents 1 point: Obesity (BMI >25) Other Risk Factors: No Other congenital or acquired thrombophilia - If yes, enter type in comment: No Thrombosis Risk Factor Assessment Total Risk Factor Score: 1 Thrombosis Risk Factor Assessment Level: Low Risk Assessment and Plan Assessment: Break through seizure - likely due to missing night medications yesterday - stat CBC, CMP, Mg, Phos levels - check Tegretol, lithium, phenobarb levels - resume home medications - seizure pecautions - neuro consult Hypothyroidism - check TSH - synthroid GERD - PPI Depression with suicidal ideation - Sitter - psych consult - per patient was arguing with mother prior to episode of suicidal ideation yesterday The patient is placed in observation with an anticipated less than 2 midnight stay for evaluation of break through seizure. Surrogate decision-maker: kip CODE STATUS:full DVT prophylaxis: heparin Discussed with: , nursing, patient Anticipated discharge date: in AM Anticipated discharge place: [facility] A total of 75 minutes was spent on the care of this complex patient more than 50% of the time was spent in counseling and care coordination.
[2020-04-09] MEDS ORDERED: LORazepam 0.5 MG TAB PO PRN (11:13)
[2020-04-09 11:14] LABS: Lithium 0.5 mmol/L
--- NOTE | 2020-04-09 11:53 | CT ---
EXAMINATION TYPE: CT brain wo con DATE OF EXAM: 04/09/2020 COMPARISON: Prior CT 07/17/2019 HISTORY: seizure CT DLP: 1217.4 mGycm. Automated Exposure Control for Dose Reduction was Utilized. TECHNIQUE: CT scan of the head is performed without contrast. FINDINGS: There is no acute intracranial hemorrhage, mass effect, or midline shift identified. The ventricles and sulci are within normal limits in size. The globes are intact and the visualized sin uses are clear. IMPRESSION: No acute intracranial hemorrhage, mass effect, or midline shift is seen.
[2020-04-09] MEDS: VENLAFAXINE HCL ER 150 MG CAP PO SCH (12:37)
--- NOTE | 2020-04-09 14:35 | P.CN ---
Psychiatric Consult - . Consult date: 04/09/20 Consult:: Reason for consultation: Patient was transferred from the psychiatric unit to the medical floor because episode of seizure activity. Identifying data: Patient is a 30-year-old male who was initially admitted to psychiatric floor because of severe depression and suicidal ideation, and he has history of of depressive disorder. The patient was seen while he was at medical floor. Chief complaint and history of present illness: Patient was initially admitted to psychiatric floor because of severe depression and suicidal thoughts that he presented himself to the ED last night and reports worsening of suicidal thoughts and doesn't feel safe to go back home. After patient brought to the psych floor, he had seizure episode earlier this morning and was transferred to medical floor for further monitoring and treatment. Patient had previous psychiatric hospitalization with the last time was admitted to [facility] was last month and was discharged on Effexor and Lamictal with diagnosis of adjustment disorder. Patient refused evaluation today and at the time I tried to talk to him, he presents confused, and wasn't able to answer simple question like verifying his last name. Patient was staring and he didn't respond to any questions. Past psychiatric history: As reported, the patient had previous psychiatric hospitalizations with the last time was at [facility] last month was discharged on result he, Lamictal and Effexor with diagnosis of adjustment disorder with depressive symptoms and intellectual disability. As per chart review the reported current psychiatric medications include lithium, Effexor, and Rexulti. Patient is currently connected with [facility] and act team. Substance use history: No report of substance use, and as per chart review has been drinking alcohol socially. Family history of psychiatric illness: Unknown. Brief social history: Patient was born and raised in [facility]. He wasn't especially education during school time. Currently unemployed and receives SSD. He is and has one child. His is disabled. No history of legal problems. Mental status examination; Appearance: The patient appears stated age, adequately groomed and dressed, no specific features. Gait/posture: Patient was lying on bed. Attitude and behavior: Not engaged, no eye contact, refused evaluation Motor activity: Decreased psychomotor activity Speech: Patient refused to talk Mood: Not reported, but apparently depressed Affect: Flat Thought form: Patient refused assessment Thought content: Patient refused evaluation, but reported came to the ED yesterday because of severe suicidal thoughts Perception: No report of hallucinations Attention: Patient presents confused, and was not cooperative with evaluation Orientation: Patient was not engaged in evaluation Insight: Patient has limited insight about his psychiatric disorder. Judgment: Patient has limited judgment about his psychiatric treatment. Assessment: Major depressive disorder, recurrent, severe, without psychotic features. By h istory Rule out personality disorder. Rule out intellectual disability. Recommendations: Addressed and ensured patient's safety, patient is actively suicidal, and is not psychiatrically stable. Continue one to one monitoring for safety. Patient to be transferred back to psych unit after medical stabilization. Medication management: Continue psychiatric medications as reported by chart review including lithium 600 mg twice daily for mood stabilization, Effexor 300 mg daily for depression and anxiety, and her anxiety 3 mg at bedtime for mood stabilization. Discussed the treatment plan with the requesting physician/service. Thank you for permitting me to assist in this patient's treatment. Please call psychiatry department if you have any question or need further help with this case. 04/09/20 14:21 04/09/20 14:29
[2020-04-09] MEDS: LEVOTHYROXINE 75 MCG TAB PO SCH (15:15)
[2020-04-09] MEDS: SODIUM PHOSPHATE 10 MMOL in SODIUM CHLORIDE 0.9% 250 ML IVPB SCH ×2 (16:04→20:33)
[2020-04-09] MEDS: HEPARIN SODIUM,PORCINE 5,000 UNIT/ML 1 ML VIAL SQ SCH (16:04)
[2020-04-09] MEDS: SODIUM CHLORIDE 0.9% 1,000 ML IV SCH (16:05)
[2020-04-09] MEDS ORDERED: LORazepam 2 MG/ML INJ IV PRN (16:22)
[2020-04-09] MEDS ORDERED: PHENYTOIN SODIUM INJ 1,000 MG in SODIUM CHLORIDE 0.9% 100 ML IVPB STA (16:23)
[2020-04-09] MEDS ORDERED: LORazepam 2 MG/ML INJ ONE (16:26)
[2020-04-09] MEDS ORDERED: carBAMazepine 400 MG TAB.ER.12H PO SCH (21:00)
[2020-04-09] MEDS: PHENobarbital 32.4 MG TAB PO SCH (21:30)
[2020-04-10] MEDS: SODIUM CHLORIDE 0.9% 1,000 ML IV SCH ×2 (05:51→14:56)
[2020-04-10] MEDS: LEVOTHYROXINE 75 MCG TAB PO SCH (05:58)
[2020-04-10] MEDS: HEPARIN SODIUM,PORCINE 5,000 UNIT/ML 1 ML VIAL SQ SCH ×3 (05:58→16:03)
[2020-04-10] MEDS: lamoTRIgine 100 MG TAB PO SCH ×2 (09:26→21:56)
[2020-04-10] MEDS: VENLAFAXINE HCL ER 150 MG CAP PO SCH (09:26)
[2020-04-10] MEDS: LITHIUM CARBONATE 300 MG CAP PO SCH ×2 (09:26→21:56)
[2020-04-10] MEDS: LACOSAMIDE 150 MG TABLET PO SCH ×2 (09:27→21:56)
[2020-04-10 11:16] LABS: Appearance,Urine Clear (Clear); Bilirubin,Urine Negative (Negative); Blood,Urine Negative (Negative); Color,Urine Yellow; Glucose,Urine (UA) Negative (Negative); Ketones,Urine Negative (Negative); Leukocyte Esterase,Urine Negative (Negative); Nitrite,Urine Negative (Negative); Protein,Urine Trace (Negative); Specific Gravity,Urine 1.024 (1.001-1.035); Urobilinogen,Urine <2.0 mg/dL (<2.0)
--- NOTE | 2020-04-10 15:55 | P.DS ---
Providers Date of admission: 04/10/20 12:03 Expected date of discharge: 04/10/20 Attending physician: Mounika Torrez DO Consults: 04/09/20 11:11 Consult Physician Routine Consulting Provider: Luciano Perera Consult Reason/Comments: suicidal ideation Do you want consulting provider notified?: Yes 04/09/20 11:12 Consult Physician Routine Consulting Provider: Moise Norton Consult Reason/Comments: seizure Do you want consulting provider notified?: Yes Primary care physician: Stated None Hospital Course: Discharge Diagnosis: Breakthrough seizure Generalized epilepsy Hypothyroidism GERD Depression with suicidal ideation Hospital Course: Physical 30-year-old male with a past medical history of epilepsy, th yroid disorder, GERD, and depression who initially was admitted to the mental health unit secondary to suicidal ideation. On the mental health unit he was noted to have a seizure. On my discussion with the nurse it sounded like it was a tonic clonic with loss of consciousness. It was aborted without any medical intervention. He was subsequently been admitted to the medical unit. Appears that he may miss his evening dose of his antiepileptic drugs. These were given immediately upon the patient arriving to the general medical unit. He appeared to be lethargic and in a post ictal state but was able to answer questions. It did not appear as though he was having any additional shaking or aerobic eye movements. At approximately 3:30 PM on 04/09 he had an additional tonic-clonic generalized seizure lasting 92nd set aborted without medical intervention. At that point in time he was given a bowel movement milligram Dilantin load. Neurology had already been consulted but services were unavailable until 04/10. He was seen by psychiatry who recommended continuing patient process safety management engineer and recommended transfer back to the mental health unit once medically stable. On the morning of 04/10 he was evaluated by neurology who agreed with plan of care continuing his antiepileptic drugs, no need for EEG with his known history of epilepsy. He was 24 hours seizure free and determined medically stable for discharge back to the mental health unit. He will need to follow-up with his primary epileptic colleges Dr. No out of [place] in 1-2 weeks. Patient seen and examined at bedside. No chest pain, SOB, nausea, or vomiting. NO pain, no WAGNER< still feeling tired which he states is typical for him. Vital signs reviewed and stable. General: non toxic, no distress, appears at stated age Derm: warm, dry Head: atraumatic, normocephalic, symmetric Eyes: EOMI, no lid lag, anicteric sclera Mouth: no lip lesion, mucus membranes moist Cardiovascular: S1S2 reg, no murmur, positive posterior tibial pulse bilateral, Lungs: CTA bilateral, no rhonchi, no rales , no accessory muscle use Abdominal: soft, nontender to palpation, no guarding, no appreciable organomegaly Ext: no gross muscle atrophy, no edema, no contractures Neuro: CN II-XI grossly intact, no focal neuro deficits Psych: Alert, oriented, appropriate affect A total of 35 minutes of time were spent preparing this complex discharge summary . Patient Condition at Discharge: Stable Plan - Discharge Summary Discharge Rx Participant: No New Discharge Prescriptions: Continue RX: lamoTRIgine [LaMICtal] 200 mg PO BID #28 tablet RX: carBAMazepine [TEGretol XR] 200 mg PO BID RX: [place] Carbonate 600 mg PO BID RX: Venlafaxine HCl ER [Effexor XR] 300 mg PO DAILY 30 Days #60 cap.er.24h RX: PHENobarbital 129.6 mg PO HS RX: carBAMazepine [TEGretol XR] 400 mg PO HS RX: LORazepam [Ativan] 0.5 mg PO BID PRN PRN Reason: Anxiety RX: Lacosamide [Vimpat] 150 mg PO BID RX: Levothyroxine Sodium [Synthroid] 75 mcg PO DAILY RX: Brexpiprazole [Rexulti] 3 mg PO HS Discharge Medication List RX: lamoTRIgine [LaMICtal] 200 mg PO BID #28 tablet 07/24/17 [Rx] RX: carBAMazepine [TEGretol XR] 200 mg PO BID 11/02/17 [History] RX: [place] Carbonate 600 mg PO BID 03/03/18 [History] RX: Venlafaxine HCl ER [Effexor XR] 300 mg PO DAILY 30 Days #60 cap.er.24h 07/23/18 [Rx] RX: LORazepam [Ativan] 0.5 mg PO BID PRN 10/19/18 [History] RX: PHENobarbital 129.6 mg PO HS 10/19/18 [History] RX: carBAMazepine [TEGretol XR] 400 mg PO HS 10/19/18 [History] RX: Lacosamide [Vimpat] 150 mg PO BID 07/17/19 [History] RX: Levothyroxine Sodium [Synthroid] 75 mcg PO DAILY 03/07/20 [History] RX: Brexpiprazole [Rexulti] 3 mg PO HS 04/08/20 [History] Follow up Appointment(s)/Referral(s): [facility] [NON-STAFF] - 1 Week Activity/Diet/Wound Care/Special Instructions: Activity: as tolerated Diet: Regular Special Instructions: Cannot miss doses of his seizure medications or high likely ramon of breath through seizure Follow-up with his epilitologist Dr. No upon discharge from Mental Health Discharge Disposition: TRANSFER TO PSYCH HOSP/UNIT
--- NOTE | 2020-04-10 21:25 | P.CNNES ---
History of Present Illness Consult date: 04/10/20 Requesting physician: Mounika Torrez Reason for Consult: seizure History of Present Illness: THis is a 30 year-old gentleman with medical history of epilepsy, bipolar who was admitted to the hospital for break-thru seizure. He was brought to emergency department on 04/08/2020 from mental health unit because of break- thru seizure. He was admitted to [facility] for suidical ideation. He has been having thoughts of hurting himself with a knife. He denied homicidal ideation. He has been having irregular sleep pattern. On 04/08/2020 he had a seizure witnessed and per medical records nurse thought it a was a tonic-clonic seizure with loss of consiciousness then was post-ictal. Patient states the day prior he was not give his anti-epileptic medications. The seizure was aborted without medical intervention. During his admission he CT head and was normal. On 04/09/2020 he had a witnessed GTC with predominately upper extremity and urinary incontinence. He was given 1000mg dilatin loading and was back to baseline. Per the primary team after the loading he was back to baseline. He had an routine EEG on 04/08/2020: and was reported as normal. Patient socially drinks alcohol about 1 can beer a month. He denies fever, cough, weakness, numbness, visual disturbance or headache. For his seizure he states he had it since 18 months old. He has a seizure once a year and last one prior to this was in 06/2019. He states he has GTC with LOC but denies urinary or bowel incontinence. He denies tongue bite. [facility] but is in the transition to see Dr. Nash at [facility] in which per his he has appointment in April,. About one year ago he was admitted to [place] [facility] monitoring unit and unsure of the result. His AEDs: Tegretol XR 200mb bid and 400mg daily, Lamictal 200mg bid, Vimpat 150mg bid, Phenobarbital 129.6 mg daily and Ativan 05mg bid PRN. Past Medical History Past Medical History: GERD/Reflux, Seizure Disorder, Skin Disorder, Thyroid Disorder Additional Past Medical History / Comment(s): has history of epilepsy, hx grand mal seizures since childhood, migraines, acne, History of Any Multi-Drug Resistant Organisms: None Reported, Unobtainable Past Surgical History: Adenoidectomy, Appendectomy, Cholecystectomy, Tonsillectomy Additional Past Surgical History / Comment(s): oral surgery Past Anesthesia/Blood Transfusion Reactions: Previous Problems w/ Anesthesia Additional Past Anesthesia/Blood Transfusion Reaction / Comment(s): SLOW TO WAKE FROM ANESTHESIA" Past Psychological History: Depression, Unable to Obtain Additional Psychological History / Comment(s): per pt-he was in special education classes thru out school(has some intellectual disabilty), speech impediment. able to read and write. Smoking Status: Never smoker Past Alcohol Use History: Occasional Additional Past Alcohol Use History / Comment(s): Denies any alcohol intake since he is on probation til April 2019 Past Drug Use History: None Reported Additional Drug Use History / Comment(s): Denies any illicit drugs or any marijuana use - Past Family History Brother(s) Family Medical History: Asthma Additional Family Medical History / Comment(s): back problems Mother Family Medical History: Cancer Additional Family Medical History / Comment(s): breast cancer Medications and Allergies Home Medications Medication Instructions Recorded Confirmed Type lamoTRIgine [LaMICtal] 200 mg PO BID #28 tablet 07/24/17 04/09/20 Rx carBAMazepine [TEGretol XR] 200 mg PO BID 11/02/17 04/09/20 History [place] Carbonate 600 mg PO BID 03/03/18 04/09/20 History Venlafaxine HCl ER [Effexor XR] 300 mg PO DAILY 30 Days #60 07/23/18 04/09/20 Rx cap.er.24h LORazepam [Ativan] 0.5 mg PO BID PRN 10/19/18 04/09/20 History PHENobarbital 129.6 mg PO HS 10/19/18 04/09/20 History carBAMazepine [TEGretol XR] 400 mg PO HS 10/19/18 04/09/20 History Lacosamide [Vimpat] 150 mg PO BID 07/17/19 04/09/20 History Levothyroxine Sodium [Synthroid] 75 mcg PO DAILY 03/07/20 04/09/20 History Brexpiprazole [Rexulti] 3 mg PO HS 04/08/20 04/09/20 History Allergies Allergy/AdvReac Type Severity Reaction Status Date / Time No Known Allergies Allergy Verified 04/09/20 10:31 Physical Examination - Vital Signs Vital Signs: Vital Signs Temp Pulse Resp BP Pulse Ox 04/10/20 07:00 98.0 F 71 18 113/71 98 04/10/20 01:34 98.8 F 80 122/73 97 04/09/20 20:00 99.0 F 87 18 115/74 97 04/09/20 15:00 98.5 F 78 16 128/74 97 Intake and Output 04/09/20 04/10/20 04/10/20 22:59 06:59 14:59 Other: Voiding Method Urinal # Voids 1 Results - Laboratory Findings CBC and BMP: 04/09/20 10:00 04/09/20 10:00 Abnormal Lab Findings: Abnormal Labs 04/09/20 04/10/20 10:00 10:45 Glucose 104 H Phosphorus 1.3 L Magnesium 2.4 H Alkaline Phosphatase 127 H Urine Protein Trace H Assessment and Plan Assessment: This is a 30 year-old gentleman with medical history of epilepsy, bipolar who was admitted to the hospital for break-thru seizure. He was brought to emergency department on 04/08/2020 from mental health unit because of break- thru seizure. He was admitted to [facility] for suidical ideation. He has been having thoughts of hurting himself with a knife. He denied homicidal ideation. He has been having irregular sleep pattern. On 04/08/2020 he had a seizure witnessed and per medical records nurse thought it a was a tonic-clonic seizure with loss of consiciousness then was post-ictal. Patient states the day prior he was not give his anti-epileptic medications. The seizure was aborted without medical intervention. Then On 04/09/2020 he had a witnessed GTC with predominately upper extremity and urinary incontinence. He was given 1000mg dilatin loading and was back to baseline. Per the primary team after the lo ading he was back to baseline. He had an routine EEG on 04/08/2020: and was reported as normal. During his admission he CT head and was normal. Break-thru seizure that is provoked since missed dose. Plan: Continue same AEDs: Tegretol XR 200mb bid and 400mg daily, Lamictal 200mg bid, Vimpat 150mg bid, Phenobarbital 129.6 mg daily and Ativan 05mg bid PRN. Patient was notified with Dr. Nash over [place] and per primary team, stated he has an appointment in April,. Patient was notified of [place] rule of not to drive unless 6 month seizure free, avoid heavy machinery and avoid heights. Thank you for the consult. Time with Patient: Greater than 30
[2020-04-10] MEDS: PHENobarbital 32.4 MG TAB PO SCH (21:56)
[2020-04-11] MEDS: HEPARIN SODIUM,PORCINE 5,000 UNIT/ML 1 ML VIAL SQ SCH ×2 (01:32→08:29)
[2020-04-11] MEDS: SODIUM CHLORIDE 0.9% 1,000 ML IV SCH (06:21)
[2020-04-11] MEDS: LEVOTHYROXINE 75 MCG TAB PO SCH (06:26)
[2020-04-11 07:47] VITALS: BP 118/78; PULSE 86; RESP 17; TEMP 98.4
[2020-04-11] MEDS: LACOSAMIDE 150 MG TABLET PO SCH (08:28)
[2020-04-11] MEDS: lamoTRIgine 100 MG TAB PO SCH (08:28)
[2020-04-11] MEDS: LITHIUM CARBONATE 300 MG CAP PO SCH (08:28)
[2020-04-11] MEDS: VENLAFAXINE HCL ER 150 MG CAP PO SCH (08:28)
--- NOTE | 2020-04-11 11:35 | P.DS ---
Providers Date of admission: 04/10/20 12:03 Expected date of discharge: 04/11/20 Attending physician: Mounika Torrez DO Consults: 04/09/20 11:11 Consult Physician Routine Consulting Provider: Luciano Perera Consult Reason/Comments: suicidal ideation Do you want consulting provider notified?: Yes 04/09/20 11:12 Consult Physician Routine Consulting Provider: Moise Norton Consult Reason/Comments: seizure Do you want consulting provider notified?: Yes Primary care physician: Stated None Hospital Course: Discharge Diagnosis: Breakthrough seizure Generalized epilepsy Hypothyroidism GERD Depression with suicidal ideation Hospital Course: Physical 30-year-old male with a past medical history of epilepsy, th yroid disorder, GERD, and depression who initially was admitted to the mental health unit secondary to suicidal ideation. On the mental health unit he was noted to have a seizure. On my discussion with the nurse it sounded like it was a tonic clonic with loss of consciousness. It was aborted without any medical intervention. He was subsequently been admitted to the medical unit. Appears that he may miss his evening dose of his antiepileptic drugs. These were given immediately upon the patient arriving to the general medical unit. He appeared to be lethargic and in a post ictal state but was able to answer questions. It did not appear as though he was having any additional shaking or aerobic eye movements. At approximately 3:30 PM on 04/09 he had an additional tonic-clonic generalized seizure lasting 92nd set aborted without medical intervention. At that point in time he was given a bowel movement milligram Dilantin load. Neurology had already been consulted but services were unavailable until 04/10. He was seen by psychiatry who recommended continuing patient health and safety consultant and recommended transfer back to the mental health unit once medically stable. On the morning of 04/10 he was evaluated by neurology who agreed with plan of care continuing his antiepileptic drugs, no need for EEG with his known history of epilepsy. He was 24 hours seizure free and determined medically stable for discharge back to the mental health unit. He will need to follow-up with his primary epileptic colleges Dr. No out of [place] in 1-2 weeks. There was not beds on the mental health unit and he was maintained on the medical floor on 04/10. Patient seen and examined at bedside. Doing well today, tired and doesn't want to talk. No nausea, no vomiting. Per nursing patient has been making inappropriate comments overnight to staff. Vital signs reviewed and stable. General: non toxic, no distress, appears at stated age Derm: warm, dry Head: atraumatic, normocephalic, symmetric Eyes: EOMI, no lid lag, anicteric sclera Mouth: no lip lesion, mucus membranes moist Cardiovascular: S1S2 reg, no murmur, positive posterior tibial pulse bilateral, Lungs: CTA bilateral, no rhonchi, no rales , no accessory muscle use Abdominal: soft, nontender to palpation, no guarding, no appreciable organomegaly Ext: no gross muscle atrophy, no edema, no contractures Neuro: CN II-XI grossly intact, no focal neuro deficits Psych: sleeping but alert once awake, oriented, appropriate affect A total of 35 minutes of time were spent preparing this complex discharge summary . Patient Condition at Discharge: Stable Plan - Discharge Summary Discharge Rx Participant: No New Discharge Prescriptions: Continue lamoTRIgine [LaMICtal] 200 mg PO BID #28 tablet carBAMazepine [TEGretol XR] 200 mg PO BID [place] Carbonate 600 mg PO BID Venlafaxine HCl ER [Effexor XR] 300 mg PO DAILY 30 Days #60 cap.er.24h PHENobarbital 129.6 mg PO HS carBAMazepine [TEGretol XR] 400 mg PO HS LORazepam [Ativan] 0.5 mg PO BID PRN PRN Reason: Anxiety Lacosamide [Vimpat] 150 mg PO BID Levothyroxine Sodium [Synthroid] 75 mcg PO DAILY Brexpiprazole [Rexulti] 3 mg PO HS Discharge Medication List lamoTRIgine [LaMICtal] 200 mg PO BID #28 tablet 07/24/17 [Rx] carBAMazepine [TEGretol XR] 200 mg PO BID 11/02/17 [History] [place] Carbonate 600 mg PO BID 03/03/18 [History] Venlafaxine HCl ER [Effexor XR] 300 mg PO DAILY 30 Days #60 cap.er.24h 07/23/18 [Rx] LORazepam [Ativan] 0.5 mg PO BID PRN 10/19/18 [History] PHENobarbital 129.6 mg PO HS 10/19/18 [History] carBAMazepine [TEGretol XR] 400 mg PO HS 10/19/18 [History] Lacosamide [Vimpat] 150 mg PO BID 07/17/19 [History] Levothyroxine Sodium [Synthroid] 75 mcg PO DAILY 03/07/20 [History] Brexpiprazole [Rexulti] 3 mg PO HS 04/08/20 [History] Follow up Appointment(s)/Referral(s): [facility] [NON-STAFF] - 1 Week Activity/Diet/Wound Care/Special Instructions: Activity: as tolerated Diet: Regular Special Instructions: Cannot miss doses of his seizure medications or high likely ramon of breath through seizure Follow-up with his epilitologist Dr. No upon discharge from Mental Health Discharge Disposition: TRANSFER TO PSYCH HOSP/UNIT
== END 2020-04-11 16:05 | DRG 101 ==
LOC: 4SSUR 09:25 → INTOOBSV 09:25 → OBSVTOIN 04-10 12:03
PROVIDERS: ADMIT Internal Medicine; ATTEND Internal Medicine
DX: G40.409 Other generalized epilepsy and epileptic syndromes, not intractable, without status epilepticus (principal); R45.851 Suicidal ideations; F33.2 Major depressive disorder, recurrent severe without psychotic features; K21.9 Gastro-esophageal reflux disease without esophagitis; E03.9 Hypothyroidism, unspecified; R32 Unspecified urinary incontinence; Z79.890 Hormone replacement therapy; Z79.899 Other long term (current) drug therapy; Z80.3 Family history of malignant neoplasm of breast; Z82.5 Family history of asthma and other chronic lower respiratory diseases; Z90.49 Acquired absence of other specified parts of digestive tract; Z90.89 Acquired absence of other organs; Z98.890 Other specified postprocedural states
CPT/HCPCS: 70450; 80053; 80156; 80175; 80178; 80184; 81003; 83735; 84100; 85025

== ENCOUNTER 2020-04-11 14:49 | Inpatient (IN) | payer MEDICARE, MEDICAID ==
[2020-04-11] MEDS ORDERED: LORazepam 0.5 MG TAB PO PRN (16:39)
[2020-04-11] MEDS ORDERED: MAGNESIUM HYDROXIDE 2,400 MG/10 ML CUP PO PRN (16:41)
[2020-04-11] MEDS ORDERED: ACETAMINOPHEN TAB 325 MG TAB PO PRN (16:41)
[2020-04-11] MEDS ORDERED: MAG HYDROX/AL HYDROX/SIMETH 30 ML CUP PO PRN (16:41)
[2020-04-11 17:21] VITALS: RESP 16
[2020-04-11] MEDS: LITHIUM CARBONATE 300 MG CAP PO SCH (21:11)
[2020-04-11] MEDS: LACOSAMIDE 150 MG TABLET PO SCH (21:11)
[2020-04-11] MEDS: carBAMazepine 400 MG TAB.ER.12H PO SCH (21:11)
[2020-04-11] MEDS: lamoTRIgine 100 MG TAB PO SCH (21:11)
[2020-04-11] MEDS: BREXPIPRAZOLE 3 MG PO SCH (22:33)
[2020-04-12] MEDS: LEVOTHYROXINE 75 MCG TAB PO SCH (06:28)
[2020-04-12] MEDS: lamoTRIgine 100 MG TAB PO SCH ×2 (08:21→20:45)
[2020-04-12] MEDS: VENLAFAXINE HCL ER 150 MG CAP PO SCH (08:21)
[2020-04-12] MEDS: LACOSAMIDE 150 MG TABLET PO SCH ×2 (08:21→20:45)
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
--- NOTE | 2020-04-12 17:43 | P.MDCNMH ---
History of Present Illness H&P Date: 04/12/20 Chief Complaint: Medical management 30-year-old male with PMH of seizure disorder, hypothyroidism, GERD and depression was initially admitted to mental health unit secondary to suicidal ideation. On the mental health unit he was noted to have a seizure with loss of consciousness. He was transferred to the medical side for further workup and management. While inpatient, he had an additional tonic-clonic generalized seizure which was aborted without any medical intervention. He was loaded with Dilantin IV at that time. Neurology was consulted and recommended continuing his antiepileptic medication and no need for EEG. He was medically stable for discharge back to mental health unit. Patient was seen and examined. Patient reports no further seizure episodes. He denies any complaints. He denies any headache, lower gladys edema, nausea or vomiting, fever or chills, cough, chest pain, shortness of breath, palpitations, changes in urination or bowel habits. No changes in appetite or weight. He denies any dizziness, numbness/weakness/tingling of the extremities. Review of Systems Pertinent positives and negatives as discussed in HPI, a complete review of systems was performed and all other systems are negative. Past Medical History Past Medical History: GERD/Reflux, Seizure Disorder, Skin Disorder, Thyroid Disorder Additional Past Medical History / Comment(s): has history of epilepsy, hx grand mal seizures since childhood, migraines, acne, History of Any Multi-Drug Resistant Organisms: None Reported, Unobtainable Past Surgical History: Adenoidectomy, Appendectomy, Cholecystectomy, Tonsillectomy Additional Past Surgical History / Comment(s): oral surgery Past Anesthesia/Blood Transfusion Reactions: Previous Problems w/ Anesthesia Additional Past Anesthesia/Blood Transfusion Reaction / Comment(s): SLOW TO WAKE FROM ANESTHESIA" Past Psychological History: Anxiety, Depression Additional Psychological History / Comment(s): per pt-he was in special education classes thru out school(has some intellectual disabilty), speech impediment. able to read and write. Smoking Status: Never smoker Past Alcohol Use History: Occasional Additional Past Alcohol Use History / Comment(s): Denies any alcohol intake since he is on probation April 2019 Past Drug Use History: None Reported Additional Drug Use History / Comment(s): Denies any illicit drugs or any marijuana use - Past Family History Brother(s) Family Medical History: Asthma Additional Family Medical History / Comment(s): back problems Mother Family Medical History: Cancer Additional Family Medical History / Comment(s): breast cancer Medications and Allergies Home Medications Medication Instructions Recorded Confirmed Type lamoTRIgine [LaMICtal] 200 mg PO BID #28 tablet 07/24/17 04/11/20 Rx carBAMazepine [TEGretol XR] 200 mg PO BID 11/02/17 04/11/20 History [place] Carbonate 600 mg PO BID 03/03/18 04/11/20 History Venlafaxine HCl ER [Effexor XR] 300 mg PO DAILY 30 Days #60 07/23/18 04/11/20 Rx cap.er.24h LORazepam [Ativan] 0.5 mg PO BID PRN 10/19/18 04/11/20 History PHENobarbital 129.6 mg PO HS 10/19/18 04/11/20 History carBAMazepine [TEGretol XR] 400 mg PO HS 10/19/18 04/11/20 History Lacosamide [Vimpat] 150 mg PO BID 07/17/19 04/11/20 History Levothyroxine Sodium [Synthroid] 75 mcg PO DAILY 03/07/20 04/11/20 History Brexpiprazole [Rexulti] 3 mg PO HS 04/08/20 04/11/20 History Allergies Allergy/AdvReac Type Severity Reaction Status Date / Time No Known Allergies Allergy Verified 04/09/20 10:31 Physical Exam Vitals: Vital Signs Temp Pulse Resp BP 04/12/20 12:00 98.6 F 04/12/20 06:59 98.7 F 74 16 109/59 04/11/20 21:14 92 127/83 General: [non toxic], [no distress], [appears at stated age] Derm: [warm], [dry] Head: [atraumatic], [normocephalic], [symmetric] Eyes: [EOMI], [no lid lag], [anicteric sclera] Mouth: [no lip lesion], [mucus membranes moist] Cardiovascular: [S1S2 reg], [no murmur], [positive posterior tibial pulse bilateral], Lungs: [CTA bilateral], [no rhonchi, no rales] , [no accessory muscle use] Abdominal: [soft], [ nontender to palpation], [no guarding], [no appreciable organomegaly] Ext: [no gross muscle atrophy], [no edema], [no contractures] Neuro: [ CN II-XI grossly intact], [no focal neuro deficits] Psych: [Alert], [oriented], [appropriate affect] Cranial Nerve Examination - Cranial Nerves Cranial Nerve II- Optic: Intact Cranial Nerve III- Oculomotor: Intact Cranial Nerve IV- Trochlear: Intact Cranial Nerve V- Trigeminal: Intact Cranial Nerve - Abducens: Intact Cranial Nerve VII- Facial: Intact Cranial Nerve VIII- Auditory: Intact Cranial Nerve IX- Glossopharyngeal: Intact Cranial Nerve X- Vagus: Intact Cranial Nerve XI- Accessory: Intact Cranial Nerve XII- Hypoglossal: Intact Assessment and Plan Assessment: Seizure disorder Hypothyroidism GERD Depression with suicidal ideation Patient will be restarted on his antiepileptic medication. He will be restarted on lamotrigine, carbamazepine, phenobarbital and lacosamide. He will be placed on seizure precautions. Synthroid will be restarted for hypothyroidism. His TSH on April 09 was within normal limits. Maalox as needed for GI upset. Management as per psychiatry. [Thank you for this consult. Please call with any additional questions or concerns.]
[2020-04-12] MEDS: LITHIUM CARBONATE 300 MG CAP PO SCH (20:45)
[2020-04-12] MEDS: BREXPIPRAZOLE 3 MG PO SCH (20:46)
[2020-04-12] MEDS: carBAMazepine 400 MG TAB.ER.12H PO SCH (20:46)
[2020-04-13] MEDS: LEVOTHYROXINE 75 MCG TAB PO SCH (06:07)
[2020-04-13 06:36] VITALS: BP 121/61; PULSE 88
[2020-04-13] MEDS: LACOSAMIDE 150 MG TABLET PO SCH (08:18)
[2020-04-13] MEDS: lamoTRIgine 100 MG TAB PO SCH (08:18)
[2020-04-13] MEDS: VENLAFAXINE HCL ER 150 MG CAP PO SCH (08:18)
[2020-04-13 13:34] VITALS: TEMP 98.1
--- NOTE | 2020-04-13 19:48 | DS ---
DISCHARGE SUMMARY This patient was admitted to the mental health unit on April 11 and discharged on April 13, 2020. CONSULTATION: The patient was seen on April [address] Edy Perdomo. REASON FOR HOSPITALIZATION: The patient is a 30-year-old male who was transferred from the medical unit to the mental health unit after medical clearance. Initially patient was admitted to the mental health unit on April 08; however, he was transferred on the same day to the medical floor due to uncontrolled seizure disorder. When he was on the medical floor, the patient was seen by the consultation liaison team, who did recommend that the patient's Effexor be decreased to 150 mg and to continue the patient on the rest of his medication. For complete intake, please refer to my initial psychiatric evaluation dictated on April 12. SUMMARY OF THE HOSPITAL COURSE: The patient was admitted and he was on safety precautions. We continued the patient on his antiseizure medication, including phenobarbital, Vimpat, Tegretol XR 200 mg twice a day and 400 at bedtime. Also the patient has been on Synthroid. His recent lab workup included lithium level, which was 0.5 on April 09. Regarding his psychotropic medication, as I mentioned before, we did decrease his Effexor from 300 to 150 mg and we discontinued the Rexulti. We continued the patient on lithium 600 twice a day. The patient was very pleasant. He was active in every group; he was even helping one patient on his wheelchair, pushing him around on the unit. From the first day of admission he denied any depressive symptoms. He denied any suicidal or homicidal ideation. He denied any psychotic features. Our nursing home social worker did contact his , and she stated that she does feel that her is ready to be discharged, to be referred back to [facility]. MENTAL STATUS EXAMINATION AT THE TIME OF DISCHARGE: Appearance: The patient is casually dressed. Fair grooming. Cooperative. Orientation: Patient was alert, oriented x3. Speech and language: The patient has some dysarthria. He was nonspontaneous but coherent. Affect: Constricted. Stated mood: Good. Thought process: Tangential, but he denied any thought disorder, denied any hallucination, any delusional material or idea of reference. His judgment and insight are fair. Memory is grossly intact. Intellectual function below average. DISCHARGE DIAGNOSIS: 1. Major depression disorder, mild, recurrent, without psychotic feature. 2. Intellectual disability. DISCHARGE PLAN: The patient will be discharged to [facility]. He is active with the ACT team. Her discharge medications are the followin. Tegretol XR 200 mg twice a day and 400 at bedtime. 2. Lamictal (lamotrigine) 200 mg twice a day. 3. Vimpat 150 mg twice a day. 4. Phenobarbital 129.6 at bedtime. 5. Effexor XR 150 mg daily. 6. [place] 600 mg twice a day. 7. Synthroid 75 mcg daily. Prognosis is guarded due to his medical issues, and it seems to me that he has an issue with his mother. MMMODESTAL / KINJALN: [id number] /
== END 2020-04-13 14:27 | disposition home or self-care (01) | DRG 885 ==
LOC: 3MHU 16:14
PROVIDERS: ADMIT Psychiatry & Neurology Psychiatry; ATTEND Psychiatry & Neurology Psychiatry
DX: F33.9 Major depressive disorder, recurrent, unspecified (principal); F79 Unspecified intellectual disabilities; G40.909 Epilepsy, unspecified, not intractable, without status epilepticus; F43.21 Adjustment disorder with depressed mood; Z79.890 Hormone replacement therapy; Z79.899 Other long term (current) drug therapy; Z82.0 Family history of epilepsy and other diseases of the nervous system

== ENCOUNTER 2020-05-24 11:39 | Emergency (ER) | payer MEDICARE, OTHER ==
[2020-05-24 11:48] VITALS: TEMP 98.2
--- NOTE | 2020-05-24 12:26 | ED ---
Psych HPI - General Source: patient, police, RN notes reviewed, old records reviewed Mode of arrival: ambulatory <Radha Mitchell - Last Filed: 05/24/20 14:10> <Stephan Azul - Last Filed: 05/24/20 15:58> - General Chief Complaint: Psychiatric Symptoms Stated Complaint: petition Time Seen by Provider: 05/24/20 11:51 - History of Present Illness Initial Comments: Patient is a 30-year-old male presents emergency department today for petitioned by records for EPS evaluation. Patient reportedly was sleeping and missed his scheduled appointment for his psychiatrist. Patient has reportedly trying to not have to deal with [facility] dosing his medication and was reportedly not following with [facility]. He was formerly managed with the [facility] team. Patient reports that he has a difficult time managing his appointments between his own medical problems and mental health issues as well as managing his sons appointments that are twice a week. (Radha Mitchell) - Related Data Home Medications Medication Instructions Recorded Confirmed [place] Carbonate 300 mg PO BID 03/03/18 05/24/20 PHENobarbital 129.6 mg PO HS 10/19/18 05/24/20 carBAMazepine [TEGretol XR] 400 mg PO HS 10/19/18 05/24/20 Lacosamide [Vimpat] 150 mg PO BID 07/17/19 05/24/20 Levothyroxine Sodium [Synthroid] 75 mcg PO DAILY 03/07/20 05/24/20 LORazepam [Ativan] 0.5 mg PO BID PRN 05/24/20 05/24/20 Venlafaxine HCl ER [Effexor XR] 300 mg PO DAILY 05/24/20 05/24/20 Previous Rx's Medication Instructions Recorded lamoTRIgine [LaMICtal] 200 mg PO BID #28 tablet 07/24/17 Acetaminophen Tab [Tylenol] 650 mg PO Q4HR PRN tab 04/13/20 Mag Hydrox/Al Hydrox/Simeth 30 ml PO Q4HR PRN ml 04/13/20 [Maalox] Magnesium Hydroxide [Milk of 2,400 mg PO DAILY PRN ml 04/13/20 Magnesia Concentrate] carBAMazepine [TEGretol XR] 200 mg PO Q12H 30 Days tab 04/13/20 Allergies Allergy/AdvReac Type Severity Reaction Status Date / Time No Known Allergies Allergy Verified 05/24/20 11:48 Review of Systems ROS Other: All systems not noted in ROS Statement are negative. <Radha Mitchell - Last Filed: 05/24/20 14:10> ROS Other: All systems not noted in ROS Statement are negative. <Stephan Azul - Last Filed: 05/24/20 15:58> ROS Statement: Those systems with pertinent positive or pertinent negative responses have been documented in the HPI. Past Medical History Past Medical History: GERD/Reflux, Seizure Disorder, Skin Disorder, Thyroid Disorder Additional Past Medical History / Comment(s): has history of epilepsy, hx grand mal seizures since childhood, migraines, acne, History of Any Multi-Drug Resistant Organisms: None Reported, Unobtainable Past Surgical History: Adenoidectomy, Appendectomy, Cholecystectomy, Tonsillectomy Additional Past Surgical History / Comment(s): oral surgery Past Anesthesia/Blood Transfusion Reactions: Previous Problems w/ Anesthesia Additional Past Anesthesia/Blood Transfusion Reaction / Comment(s): SLOW TO WAKE FROM ANESTHESIA" Past Psychological History: Anxiety, Depression Smoking Status: Never smoker Past Alcohol Use History: Occasional Past Drug Use History: None Reported - Past Family History Brother(s) Family Medical History: Asthma Additional Family Medical History / Comment(s): back problems Mother Family Medical History: Cancer Additional Family Medical History / Comment(s): breast cancer <Radha Mitchell - Last Filed: 05/24/20 14:10> General Exam General appearance: alert, in no apparent distress Head exam: Present: atraumatic, normocephalic, normal inspection Eye exam: Present: normal appearance, PERRL, EOMI. Absent: scleral icterus, conjunctival injection, periorbital swelling ENT exam: Present: normal exam, mucous membranes moist Neck exam: Present: normal inspection. Absent: tenderness, meningismus, lymphadenopathy Respiratory exam: Present: normal lung sounds bilaterally. Absent: respiratory distress, wheezes, rales, rhonchi, stridor Cardiovascular Exam: Present: regular rate GI/Abdominal exam: Present: soft Extremities exam: Present: normal inspection, full ROM, normal capillary refill. Absent: tenderness, pedal edema, joint swelling, calf tenderness Back exam: Present: normal inspection Neurological exam: Present: alert, oriented X3, CN II-XII intact Psychiatric exam: Present: normal affect, normal mood Skin exam: Present: warm, dry, intact, normal color. Absent: rash <Radha Mitchell - Last Filed: 05/24/20 14:10> - General Exam Comments Initial Comments: 30-year-old male. Alert and oriented. No significant distress. (Radha Mitchell) Course <Stephan Azul - Last Filed: 05/24/20 15:58> Vital Signs 05/24/20 11:45 Temperature 98.2 F Pulse Rate 80 Respiratory 18 Rate Blood Pressure 126/78 O2 Sat by Pulse 100 Oximetry - Reevaluation(s) Reevaluation #1: 05/24/20 15:57 The patient was evaluated by psychiatric service and currently is not a risk to himself or anyone else he will be discharged (Stephan Azul) Medical Decision Making <Radha Mitchell - Last Filed: 05/24/20 14:10> - Medical Decision Making 30-year-old male presents for a court-ordered petition for EPS evaluation. He missed his scheduled appointment [facility] with Dr. Strickland. Patient states he has a difficult time making appointments with managing his sons aren't appointments as well and was sleeping today. The police will come up. Patient has been cooperative and emergency department denies any suicidal homicidal ideation. Pt case disposition to Dr. Azul. (Radha Mitchell) - Lab Data Lab Results 05/24/20 Range/Units 12:32 Urine Opiates Screen Not Detected (NotDetected) Ur Oxycodone Screen Not Detected (NotDetected) Urine Methadone Screen Not Detected (NotDetected) Ur Propoxyphene Screen Not Detected (NotDetected) Ur Barbiturates Screen Detected H (NotDetected) U Tricyclic Antidepress Not Detected (NotDetected) Ur Phencyclidine Scrn Not Detected (NotDetected) Ur Amphetamines Screen Not Detected (NotDetected) U Methamphetamines Scrn Not Detected (NotDetected) U Benzodiazepines Scrn Not Detected (NotDetected) Urine Cocaine Screen Not Detected (NotDetected) U Marijuana (THC) Screen Not Detected (NotDetected) Disposition <Radha Mitchell - Last Filed: 05/24/20 14:10> Is patient prescribed a controlled substance at d/c from ED?: No <Stephan Azul - Last Filed: 05/24/20 15:58> Clinical Impression: Depression, Feared condition not demonstrated Disposition: HOME SELF-CARE Condition: Good Instructions (If sedation given, give patient instructions): Depression (ED) Referrals: None,Stated [Primary Care Provider] - 1-2 days
[2020-05-24 12:51] LABS: Amphetamine Screen,Urine Not Detected (NotDetected); Barbiturate Screen,Urine Detected (NotDetected); Benzodiazepines Screen,Urine Not Detected (NotDetected); Cocaine Screen,Urine Not Detected (NotDetected); Methadone Screen, Urine Not Detected (NotDetected); Opiate Screen,Urine Not Detected (NotDetected); Oxycodone Screen, Urine Not Detected (NotDetected); Phencyclidine Screen,Urine Not Detected (NotDetected); Tricyclic Antidepressant,Urine Not Detected (NotDetected); Urn Cannabinoid Scrn Not Detected (NotDetected)
[2020-05-24 16:06] VITALS: BP 122/76; PULSE 76; RESP 16
== END 2020-05-24 16:01 | disposition home or self-care (01) ==
LOC: EC 11:39
DX: F32.9 Major depressive disorder, single episode, unspecified (principal); Z71.1 Person with feared health complaint in whom no diagnosis is made; F41.9 Anxiety disorder, unspecified; E07.9 Disorder of thyroid, unspecified; Z79.899 Other long term (current) drug therapy
CPT/HCPCS: 80306; 82075; 99284

== ENCOUNTER 2020-06-26 21:46 | Inpatient (IN) | payer MEDICARE, MEDICAID ==
--- NOTE | 2020-06-26 22:14 | ED ---
Psych HPI - General Chief Complaint: Psychiatric Symptoms Stated Complaint: Mental Health Time Seen by Provider: 06/26/20 22:13 Source: patient, police Mode of arrival: ambulatory - History of Present Illness Initial Comments: Stephan 30-year-old male with extensive gastric history and cognitive delay. Patient presents the ER today stating that all day he has been thinking about killing somebody and then killing himself. No specific target that he wants to kill the states that he has been having thoughts of be like to murder someone and then kill himself. Patient has previously followed with [facility] but has been dissatisfied with his care and his petition the courts to seek psychiatric care elsewhere. Patient reports he is compliant with his home medications. - Related Data Home Medications Medication Instructions Recorded Confirmed [place] Carbonate 300 mg PO BID 03/03/18 06/26/20 PHENobarbital 129.6 mg PO HS 10/19/18 06/26/20 carBAMazepine [TEGretol XR] 400 mg PO HS 10/19/18 06/26/20 Lacosamide [Vimpat] 150 mg PO BID 07/17/19 06/26/20 Levothyroxine Sodium [Synthroid] 75 mcg PO DAILY 03/07/20 06/26/20 LORazepam [Ativan] 0.5 mg PO BID PRN 05/24/20 06/26/20 Venlafaxine HCl ER [Effexor XR] 300 mg PO DAILY 05/24/20 06/26/20 Ibuprofen [Motrin] 800 mg PO Q8H PRN 06/26/20 06/26/20 lamoTRIgine [LaMICtal] 200 mg PO HS 06/26/20 06/26/20 Previous Rx's Medication Instructions Recorded Acetaminophen Tab [Tylenol] 650 mg PO Q4HR PRN tab 04/13/20 Mag Hydrox/Al Hydrox/Simeth 30 ml PO Q4HR PRN ml 04/13/20 [Maalox] Magnesium Hydroxide [Milk of 2,400 mg PO DAILY PRN ml 04/13/20 Magnesia Concentrate] carBAMazepine [TEGretol XR] 200 mg PO Q12H 30 Days tab 04/13/20 Allergies Allergy/AdvReac Type Severity Reaction Status Date / Time No Known Allergies Allergy Verified 06/26/20 21:55 Review of Systems ROS Statement: Those systems with pertinent positive or pertinent negative responses have been documented in the HPI. ROS Other: All systems not noted in ROS Statement are negative. Past Medical History Past Medical History: GERD/Reflux, Seizure Disorder, Skin Disorder, Thyroid Disorder Additional Past Medical History / Comment(s): has history of epilepsy, hx grand mal seizures since childhood, migraines, acne, History of Any Multi-Drug Resistant Organisms: None Reported, Unobtainable Past Surgical History: Adenoidectomy, Appendectomy, Cholecystectomy, Tonsillectomy Additional Past Surgical History / Comment(s): oral surgery Past Anesthesia/Blood Transfusion Reactions: Previous Problems w/ Anesthesia Additional Past Anesthesia/Blood Transfusion Reaction / Comment(s): SLOW TO WAKE FROM ANESTHESIA" Past Psychological History: Anxiety, Depression Smoking Status: Never smoker Past Alcohol Use History: None Reported Past Drug Use History: None Reported - Past Family History Brother(s) Family Medical History: Asthma Additional Family Medical History / Comment(s): back problems Mother Family Medical History: Cancer Additional Family Medical History / Comment(s): breast cancer General Exam - General Exam Comments Initial Comments: Physical Exam GENERAL: Patient is well-developed and well-nourished. Patient is nontoxic and well-hydrated and is in no distress. HENT: Normocephalic, Atraumatic. EYES: PERRL, EOMI PULMONARY: Unlabored respirations. CARDIOVASCULAR: RRR Warm and well perfused extremities ABDOMEN: Non-distended SKIN: No rashes or bruising : Deferred NEUROLOGIC: Alert and oriented Normal speech Normal gait MUSCULOSKELETAL: Moving all extremities with no apparent injury PSYCHIATRIC homicidal and suicidal ideations Course Vital Signs 06/26/20 21:51 Temperature 97.9 F Pulse Rate 97 Respiratory 20 Rate Blood Pressure 135/80 O2 Sat by Pulse 98 Oximetry Medical Decision Making - Medical Decision Making the patient was seen and evaluated, history is obtained from patient plan patient with homicidal and suicidal ideations Labs are obtained for medical clearance patient medically cleared for evaluation by EPS the patient was evaluated by EPS who recommended inpatient psychiatric care Clinical certification was completed by ms - Lab Data Result diagrams: 06/26/20 23:01 06/26/20 23:01 Lab Results 06/26/20 06/26/20 06/26/20 Range/Units 23:01 23:01 23:22 WBC 8.5 (3.8-10.6) k/uL RBC 4.81 (4.30-5.90) m/uL Hgb 14.4 (13.0-17.5) gm/dL Hct 43.7 (39.0-53.0) % MCV 90.9 (80.0-100.0) fL MCH 29.9 (25.0-35.0) pg MCHC 32.9 (31.0-37.0) g/dL RDW 12.2 (11.5-15.5) % Plt Count 259 (150-450) k/uL Neutrophils % 55 % Lymphocytes % 30 % Monocytes % 5 % Eosinophils % 8 % Basophils % 1 % Neutrophils # 4.6 (1.3-7.7) k/uL Lymphocytes # 2.6 (1.0-4.8) k/uL Monocytes # 0.4 (0-1.0) k/uL Eosinophils # 0.7 (0-0.7) k/uL Basophils # 0.1 (0-0.2) k/uL Sodium 139 (137-145) mmol/L Potassium 4.1 (3.5-5.1) mmol/L Chloride 107 (98-107) mmol/L Carbon Dioxide 24 (22-30) mmol/L Anion Gap 8 mmol/L BUN 8 L (9-20) mg/dL Creatinine 0.76 (0.66-1.25) mg/dL Est GFR (CKD-EPI)AfAm >90 (>60 ml/min/1.73 sqM) Est GFR (CKD-EPI)NonAf >90 (>60 ml/min/1.73 sqM) Glucose 108 H (74-99) mg/dL Calcium 9.3 (8.4-10.2) mg/dL Total Bilirubin 0.3 (0.2-1.3) mg/dL AST 18 (17-59) U/L ALT 12 (4-49) U/L Alkaline Phosphatase 115 (38-126) U/L Total Protein 7.5 (6.3-8.2) g/dL Albumin 4.5 (3.5-5.0) g/dL Urine Color Yellow Urine Appearance Clear (Clear) Urine pH 6.5 (5.0-8.0) Ur Specific [place] 1.013 (1.001-1.035) Urine Protein Negative (Negative) Urine Glucose (UA) Negative (Negative) Urine Ketones Negative (Negative) Urine Blood Negative (Negative) Urine Nitrite Negative (Negative) Urine Bilirubin Negative (Negative) Urine Urobilinogen <2.0 (<2.0) mg/dL Ur Leukocyte Esterase Negative (Negative) Salicylates <1.0 mg/dL Urine Opiates Screen Not Detected (NotDetected) Ur Oxycodone Screen Not Detected (NotDetected) Urine Methadone Screen Not Detected (NotDetected) Ur Propoxyphene Screen Not Detected (NotDetected) Acetaminophen <10.0 ug/mL Ur Barbiturates Screen Detected H (NotDetected) U Tricyclic Antidepress Not Detected (NotDetected) Ur Phencyclidine Scrn Not Detected (NotDetected) Ur Amphetamines Screen Not Detected (NotDetected) U Methamphetamines Scrn Not Detected (NotDetected) U Benzodiazepines Scrn Not Detected (NotDetected) [place] 0.4 mmol/L Urine Cocaine Screen Not Detected (NotDetected) U Marijuana (THC) Screen Not Detected (NotDetected) Serum Alcohol <10 mg/dL Disposition Clinical Impression: Depression, Intellectual disability, Homicidal ideations, Suicidal ideations Disposition: TRANSFER TO PSYCH HOSP/UNIT Is patient prescribed a controlled substance at d/c from ED?: No Referrals: None,Stated [Primary Care Provider] - 1-2 days
[2020-06-26 23:34] LABS: Appearance,Urine Clear (Clear); Bilirubin,Urine Negative (Negative); Blood,Urine Negative (Negative); Color,Urine Yellow; Glucose,Urine (UA) Negative (Negative); Ketones,Urine Negative (Negative); Leukocyte Esterase,Urine Negative (Negative); Nitrite,Urine Negative (Negative); PH, Urine 6.5 (5.0-8.0); Protein,Urine Negative (Negative); Specific Gravity,Urine 1.013 (1.001-1.035); Urobilinogen,Urine <2.0 mg/dL (<2.0)
[2020-06-26 23:45] LABS: Amphetamine Screen,Urine Not Detected (NotDetected); Barbiturate Screen,Urine Detected (NotDetected); Benzodiazepines Screen,Urine Not Detected (NotDetected); Cocaine Screen,Urine Not Detected (NotDetected); Methadone Screen, Urine Not Detected (NotDetected); Opiate Screen,Urine Not Detected (NotDetected); Oxycodone Screen, Urine Not Detected (NotDetected); Phencyclidine Screen,Urine Not Detected (NotDetected); Tricyclic Antidepressant,Urine Not Detected (NotDetected); Urn Cannabinoid Scrn Not Detected (NotDetected)
[2020-06-27 00:26] LABS: Basophils # (A) 0.1 k/uL (0-0.2); Basophils % (A) 1 %; Eosinophils # (A) 0.7 k/uL (0-0.7); Eosinophils % (A) 8 %; HCT 43.7 % (39.0-53.0); HGB 14.4 gm/dL (13.0-17.5); Lymphocytes # (A) 2.6 k/uL (1.0-4.8); Lymphocytes % (A) 30 %; MCH 29.9 pg (25.0-35.0); MCHC 32.9 g/dL (31.0-37.0); MCV 90.9 fL (80.0-100.0); Mean Platelet Volume 6.6; Monocytes # (A) 0.4 k/uL (0-1.0); Monocytes % (A) 5 %; Neutrophils # (A) 4.6 k/uL (1.3-7.7); Neutrophils % (A) 55 %; Platelet Count 259 k/uL (150-450); RBC 4.81 m/uL (4.30-5.90); RDW 12.2 % (11.5-15.5); WBC 8.5 k/uL (3.8-10.6)
[2020-06-27 00:36] LABS: ALT 12 U/L (4-49); AST 18 U/L (17-59); Acetaminophen <10.0 ug/mL; African American GFR (CKD) >90 (>60 ml/min/1.73 sqM); Albumin 4.5 g/dL (3.5-5.0); Alcohol <10 mg/dL; Alkaline Phosphatase 115 U/L (38-126); Anion Gap 8 mmol/L; Blood Urea Nitrogen 8 mg/dL (9-20); Calcium 9.3 mg/dL (8.4-10.2); Carbon Dioxide 24 mmol/L (22-30); Chloride 107 mmol/L (98-107); Glucose 108 mg/dL (74-99); Lithium 0.4 mmol/L; Non-African American GFR(CKD) >90 (>60 ml/min/1.73 sqM); Potassium 4.1 mmol/L (3.5-5.1); Salicylate <1.0 mg/dL; Sodium 139 mmol/L (137-145); Total Bilirubin 0.3 mg/dL (0.2-1.3); Total Protein 7.5 g/dL (6.3-8.2)
[2020-06-27] MEDS ORDERED: LORazepam 0.5 MG TAB PO PRN (00:55)
[2020-06-27] MEDS ORDERED: ACETAMINOPHEN TAB 325 MG TAB PO PRN ×2 (00:55→02:19)
[2020-06-27] MEDS ORDERED: MAG HYDROX/AL HYDROX/SIMETH 30 ML CUP PO PRN (02:19)
[2020-06-27] MEDS ORDERED: ZIPRASIDONE 20 MG VIAL IM PRN (02:19)
[2020-06-27] MEDS ORDERED: MAGNESIUM HYDROXIDE 2,400 MG/10 ML CUP PO PRN (02:19)
[2020-06-27] MEDS ORDERED: LORazepam 1 MG TAB PO PRN (02:19)
[2020-06-27] MEDS ORDERED: LEVOTHYROXINE 75 MCG TAB PO SCH (06:30)
[2020-06-27] MEDS ORDERED: lamoTRIgine 25 MG TAB PO SCH (09:00)
[2020-06-27] MEDS ORDERED: carBAMazepine 100 MG TAB.ER.12H PO SCH (09:00)
[2020-06-27] MEDS ORDERED: LITHIUM CARBONATE 300 MG CAP PO SCH ×2 (09:00)
[2020-06-27] MEDS ORDERED: VENLAFAXINE HCL ER 150 MG CAP PO SCH ×2 (09:00)
[2020-06-27] MEDS ORDERED: LACOSAMIDE 150 MG TABLET PO SCH ×2 (09:00)
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
[2020-06-27] MEDS ORDERED: LORazepam 2 MG/ML INJ ONE (11:03)
[2020-06-27] MEDS ORDERED: LORazepam 2 MG/ML INJ IM STA (11:06)
[2020-06-27 11:43] VITALS: TEMP 98.6
[2020-06-27 11:44] VITALS: RESP 18
[2020-06-27 11:45] VITALS: PULSE 120
[2020-06-27 11:46] VITALS: BP 143/73
--- NOTE | 2020-06-27 13:27 | P.DS ---
Providers Date of admission: 06/27/20 02:07 Expected date of discharge: 06/27/20 Attending physician: Blane Paul MD Consults: 06/27/20 02:19 Consult Physician Routine Consulting Provider: Bakari Otto Consult Reason/Comments: For H & P for Medical Follow Up Do you want consulting provider notified?: Yes Primary care physician: Stated None - Discharge Diagnosis(es) (1) Major depressive disorder without psychotic features Status: Acute Priority: High (2) Intellectual disability Status: Acute Priority: Low Hospital Course: Admission HPI: Admission was committed by poem writer "Patient is a 30-year-old male who is currently and lives with his has one son collects social security and is unemployed. Patient presented to the hospital yesterday brought in by the police. Patient was petitioned by the police claiming that he was having thoughts of "murder-suicide". Patient was apparently thinking about killing someone else and then killing himself but the past day or so. He did not endorse any specific target for his homicidal ideations. His UDS was positive for barbiturates only. She was admitted to the mental health floor on petition and clinical certificate. Patient was observed coming out of his room this morning and was directable and agreeable to speak to poem writer in the office. Patient appeared to have poor hygiene and grooming and appeared to be lethargic and have little energy. He claims that he was feeling depressed for the past 2 weeks and states that yesterday he was "talking about murder and suicide". When asked to describe more he states that he spoke to his about this and was concerned and then ended up calling the police to take him into the hospital. He states that he has a knife at home and was going to use it and also he did not have a specific plan or target. He claims that currently he is feeling depressed however denies anxiety. He states that he has been taking his medications at home. He states that he does have seizures and needs several different antiepileptic medications. He denies any issues with his or family and denies any triggers at home. He claims that his sleep is "okay" and claims to be feeling tired now. He states that he was supposed to follow-up with [facility] however he feels that " Sayayah overdosed me" and went on to claim that he was taking Haldol and he had side effects from it and now wants to follow-up with a different outpatient provider. Patient denies any current suicidal or homicidal ideations intent or plan. At this time patient denies any auditory or visual hallucinations. Patient denies any flight of ideas racing thoughts and increased in goal directed behavior. Patient admits to using no recreational drugs or cigarettes or alcohol." Hospital course: Upon admission to the unit patient was initially lethargic yet was attempting to cooperate with unit protocol. Patient presented on a petition and clinical certificate and a second certificate was filed to the courts for involuntary admission. Patient was started on his home seizure medications including Tegretol, vimpat and phenobarbital. Patient was also started on Effexor and Seroquel. Patient was on the unit for less than 1 day and after initial evaluation for admission, patient proceeded to activities group where she had a seizure and apparently hit his head on a shelf on his way to the floor. It was witnessed by staff members and patients. Patient was given 2 mg IM of Ativan for the seizure and vitals were checked until patient was able to be transferred to the emergency room. Patient will be admitted then to medicine and psychiatry will continue to follow. Mental status exam: Please refer to mental status exam on admission H&P note. Impression: Major depressive disorder, without psychotic features Intellectual disability Seizure disorder. Plan: Patient was restarted on his home seizure medications and also Effexor XR 150 mg daily for mood/anxiety. Patient was also started on Seroquel 50 mg daily at bedtime for mood stabilization/insomnia. Patient experienced a breakthrough seizure on the mental health floor and was transferred off the unit to the emergency room for further evaluation and admission to medical floors. Recommend the patient receive a head CT for possible head injury on his way to the floor and also recommend a neurology consultation for reevaluation of patient's antiepileptic medications. Psychiatry CL will continue to follow patient on the medical floors. Patient Condition at Discharge: Serious Plan - Discharge Summary New Discharge Prescriptions: No Action RX: Halley Carbonate 300 mg PO BID RX: PHENobarbital 129.6 mg PO HS RX: carBAMazepine [TEGretol XR] 400 mg PO HS RX: Lacosamide [Vimpat] 150 mg PO BID RX: Levothyroxine Sodium [Synthroid] 75 mcg PO DAILY RX: Mag Hydrox/Al Hydrox/Simeth [Maalox] 30 ml PO Q4HR PRN ml PRN Reason: GI Upset RX: Magnesium Hydroxide [Milk of Magnesia Concentrate] 2,400 mg PO DAILY PRN ml PRN Reason: Constipation RX: Acetaminophen Tab [Tylenol] 650 mg PO Q4HR PRN tab PRN Reason: Pain/Discomfort carBAMazepine [TEGretol XR] 200 mg PO Q12H 30 Days tab LORazepam [Ativan] 0.5 mg PO BID PRN PRN Reason: Anxiety RX: Venlafaxine HCl ER [Effexor XR] 300 mg PO DAILY Ibuprofen [Motrin] 800 mg PO Q8H PRN PRN Reason: Pain RX: lamoTRIgine [LaMICtal] 200 mg PO HS Discharge Medication List RX: Halley Carbonate 300 mg PO BID 03/03/18 [History] RX: PHENobarbital 129.6 mg PO HS 10/19/18 [History] RX: carBAMazepine [TEGretol XR] 400 mg PO HS 10/19/18 [History] RX: Lacosamide [Vimpat] 150 mg PO BID 07/17/19 [History] RX: Levothyroxine Sodium [Synthroid] 75 mcg PO DAILY 03/07/20 [History] RX: Acetaminophen Tab [Tylenol] 650 mg PO Q4HR PRN tab 04/13/20 [Rx] RX: Mag Hydrox/Al Hydrox/Simeth [Maalox] 30 ml PO Q4HR PRN ml 04/13/20 [Rx] RX: Magnesium Hydroxide [Milk of Magnesia Concentrate] 2,400 mg PO DAILY PRN ml 04/13/20 [Rx] carBAMazepine [TEGretol XR] 200 mg PO Q12H 30 Days tab 04/13/20 [Rx] LORazepam [Ativan] 0.5 mg PO BID PRN 05/24/20 [History] RX: Venlafaxine HCl ER [Effexor XR] 300 mg PO DAILY 05/24/20 [History] Ibuprofen [Motrin] 800 mg PO Q8H PRN 06/26/20 [History] RX: lamoTRIgine [LaMICtal] 200 mg PO HS 06/26/20 [History] Follow up Appointment(s)/Referral(s): None,Stated [Primary Care Provider] - 1-2 days Activity/Diet/Wound Care/Special Instructions: Activity and diet as tolerated. Avoid the use of street drugs and alcohol. Take all medications as prescribed. When you are in need of refills on your medications please contact your medical provider and/or outpatient psychiatrist to have this done. Please go to scheduled outpatient appointment for aftercare treatment. If symptoms return or become worse, call the crisis line at and/or go to the nearest emergency room for evaluation. Discharge Disposition: OTHER INSTITUTION NOT DEFINED
[2020-06-27 15:45] LABS: Albumin 4.4 g/dL (3.5-5.0); Bilirubin, Delta 0.3 mg/dL (0.0-0.2); Total Bilirubin 0.3 mg/dL (0.2-1.3); Total Protein 7.5 g/dL (6.3-8.2)
[2020-06-27] MEDS ORDERED: QUEtiapine 50 MG TAB PO SCH (21:00)
[2020-06-27] MEDS ORDERED: carBAMazepine 400 MG TAB.ER.12H PO SCH (21:00)
[2020-06-27] MEDS ORDERED: lamoTRIgine 100 MG TAB PO SCH (21:00)
[2020-06-28 00:41] LABS: Hemoglobin A1C 5.1 % (4.0-6.0)
[2020-06-28] MEDS ORDERED: LEVOTHYROXINE 75 MCG TAB PO SCH (06:30)
== END 2020-06-27 11:30 | disposition short-term general hospital (02) | DRG 881 ==
LOC: EEVIPCON 21:46 → EC 21:46 → 3MHU 06-27 02:07
PROVIDERS: ADMIT Psychiatry & Neurology Psychiatry; ATTEND Psychiatry & Neurology Psychiatry
DX: F32.9 Major depressive disorder, single episode, unspecified (principal); R45.851 Suicidal ideations; S09.90XA Unspecified injury of head, initial encounter; R45.850 Homicidal ideations; F79 Unspecified intellectual disabilities; G40.409 Other generalized epilepsy and epileptic syndromes, not intractable, without status epilepticus; F41.9 Anxiety disorder, unspecified; K21.9 Gastro-esophageal reflux disease without esophagitis; E07.9 Disorder of thyroid, unspecified; G43.909 Migraine, unspecified, not intractable, without status migrainosus; L98.9 Disorder of the skin and subcutaneous tissue, unspecified; G47.00 Insomnia, unspecified; K59.00 Constipation, unspecified; W22.09XA Striking against other stationary object, initial encounter; Z56.0 Unemployment, unspecified; Z79.899 Other long term (current) drug therapy; Z79.890 Hormone replacement therapy; Z90.49 Acquired absence of other specified parts of digestive tract; Z98.890 Other specified postprocedural states; Z82.5 Family history of asthma and other chronic lower respiratory diseases; Z80.3 Family history of malignant neoplasm of breast
CPT/HCPCS: 36415; 80053; 80061; 80076; 80178; 80306; 80320; 80329; 81003; 82075; 83036; 83520; 84439; 84443; 85025; 99285

== ENCOUNTER 2020-06-27 11:37 | Inpatient (IN) | payer MEDICARE, OTHER ==
[2020-06-27] MEDS ORDERED: SODIUM CHLORIDE 0.9% 1,000 ML IV STA (11:57)
[2020-06-27 12:23] LABS: Basophils % (A) 1 %; Eosinophils # (A) 0.8 k/uL (0-0.7); Eosinophils % (A) 11 %; HCT 46.6 % (39.0-53.0); HGB 15.1 gm/dL (13.0-17.5); Lymphocytes # (A) 1.5 k/uL (1.0-4.8); Lymphocytes % (A) 19 %; MCH 29.9 pg (25.0-35.0); MCHC 32.4 g/dL (31.0-37.0); MCV 92.1 fL (80.0-100.0); Mean Platelet Volume 6.3; Monocytes # (A) 0.3 k/uL (0-1.0); Monocytes % (A) 4 %; Neutrophils # (A) 4.9 k/uL (1.3-7.7); Neutrophils % (A) 64 %; Platelet Count 251 k/uL (150-450); RBC 5.06 m/uL (4.30-5.90); RDW 12.6 % (11.5-15.5); WBC 7.6 k/uL (3.8-10.6)
[2020-06-27 12:32] LABS: ALT 13 U/L (4-49); AST 20 U/L (17-59); African American GFR (CKD) >90 (>60 ml/min/1.73 sqM); Albumin 4.6 g/dL (3.5-5.0); Alkaline Phosphatase 131 U/L (38-126); Anion Gap 11 mmol/L; Blood Urea Nitrogen 9 mg/dL (9-20); Calcium 9.7 mg/dL (8.4-10.2); Carbamazepine (Tegretol) 5.1 ug/mL; Carbon Dioxide 20 mmol/L (22-30); Chloride 109 mmol/L (98-107); Glucose 96 mg/dL (74-99); Non-African American GFR(CKD) >90 (>60 ml/min/1.73 sqM); Phenytoin (Dilantin) <3.0 ug/mL; Potassium 4.4 mmol/L (3.5-5.1); Sodium 140 mmol/L (137-145); Total Bilirubin 0.4 mg/dL (0.2-1.3); Total Protein 7.8 g/dL (6.3-8.2)
[2020-06-27 12:34] LABS: Valproic Acid (Depakene) <10.0 ug/mL
--- NOTE | 2020-06-27 12:40 | ED ---
Seizure HPI <Stephan Ulloa - Last Filed: 06/27/20 14:18> - General Source: patient, EMS, RN notes reviewed, old records reviewed Mode of arrival: EMS <EraRadha israel - Last Filed: 06/27/20 14:26> - General Chief Complaint: Seizure Stated Complaint: seizure Time Seen by Provider: 06/27/20 11:48 - History of Present Illness Initial Comments: 30-year-old male presents emergency department today from [address] [place] [address] with chief complaint of seizure activity. He has a known history of seizure disorder. He takes Tegretol Vimpat and phenobarbital. He was given his morning medications today. Patient was witnessed to have a tonic-clonic seizure in the activity room [facility]. A team was contacted and Patient was transferred to the ER for evaluation. He did report that he had hit head on the end of the cabin et. And Patient was given 2 mg of Ativan, IM. He was being evaluated for a [facility] due to suicidal and homicidal history and was admitted there yesterday. (Radha Mitchell) - Related Data Home Medications Medication Instructions Recorded Confirmed Dasher Carbonate 300 mg PO BID 03/03/18 06/27/20 PHENobarbital 129.6 mg PO HS 10/19/18 06/27/20 carBAMazepine [TEGretol XR] 400 mg PO HS 10/19/18 06/27/20 Lacosamide [Vimpat] 150 mg PO BID 07/17/19 06/27/20 Levothyroxine Sodium [Synthroid] 75 mcg PO DAILY 03/07/20 06/27/20 LORazepam [Ativan] 0.5 mg PO BID PRN 05/24/20 06/27/20 Venlafaxine HCl ER [Effexor XR] 300 mg PO DAILY 05/24/20 06/27/20 Ibuprofen [Motrin] 800 mg PO Q8H PRN 06/26/20 06/27/20 lamoTRIgine [LaMICtal] 200 mg PO HS 06/26/20 06/27/20 Previous Rx's Medication Instructions Recorded Acetaminophen Tab [Tylenol] 650 mg PO Q4HR PRN tab 04/13/20 Mag Hydrox/Al Hydrox/Simeth 30 ml PO Q4HR PRN ml 04/13/20 [Maalox] Magnesium Hydroxide [Milk of 2,400 mg PO DAILY PRN ml 04/13/20 Magnesia Concentrate] carBAMazepine [TEGretol XR] 200 mg PO Q12H 30 Days tab 04/13/20 Allergies Allergy/AdvReac Type Severity Reaction Status Date / Time No Known Allergies Allergy Verified 06/27/20 02:17 Review of Systems ROS Other: All systems not noted in ROS Statement are negative. <AmarianaStephan - Last Filed: 06/27/20 14:18> ROS Other: All systems not noted in ROS Statement are negative. <Radha Mitchell - Last Filed: 06/27/20 14:26> ROS Statement: Those systems with pertinent positive or pertinent negative responses have been documented in the HPI. Past Medical History Past Medical History: GERD/Reflux, Seizure Disorder, Skin Disorder, Thyroid Disorder Additional Past Medical History / Comment(s): has history of epilepsy, hx grand mal seizures since childhood, migraines, acne, History of Any Multi-Drug Resistant Organisms: None Reported, Unobtainable Past Surgical History: Adenoidectomy, Appendectomy, Cholecystectomy, Tonsillectomy Additional Past Surgical History / Comment(s): oral surgery Past Anesthesia/Blood Transfusion Reactions: Previous Problems w/ Anesthesia Additional Past Anesthesia/Blood Transfusion Reaction / Comment(s): SLOW TO WAKE FROM ANESTHESIA" Past Psychological History: Anxiety, Depression Smoking Status: Never smoker Past Alcohol Use History: None Reported Past Drug Use History: None Reported - Past Family History Mother Family Medical History: Cancer Additional Family Medical History / Comment(s): breast cancer <Radha Mitchell - Last Filed: 06/27/20 14:26> General Exam General appearance: alert, in no apparent distress Head exam: Present: atraumatic, normocephalic, normal inspection Eye exam: Present: normal appearance, PERRL, EOMI. Absent: scleral icterus, conjunctival injection, periorbital swelling ENT exam: Present: normal exam, mucous membranes moist Neck exam: Present: normal inspection. Absent: tenderness, meningismus, lymphadenopathy Respiratory exam: Present: normal lung sounds bilaterally. Absent: respiratory distress, wheezes, rales, rhonchi, stridor Cardiovascular Exam: Present: regular rate, normal rhythm, normal heart sounds. Absent: systolic murmur, diastolic murmur, rubs, gallop, clicks GI/Abdominal exam: Present: soft, normal bowel sounds. Absent: distended, tenderness, guarding, rebound, rigid Extremities exam: Present: normal inspection, full ROM, normal capillary refill. Absent: tenderness, pedal edema, joint swelling, calf tenderness Back exam: Present: normal inspection Neurological exam: Present: alert, oriented X3, CN II-XII intact Expanded Patient oriented to: Present: person, place, time Speech: Present: fluid speech Cranial nerves: EOM's Intact: Normal, Facial Sensation: Normal Cerebellar function: Finger to Nose: Normal Upper motor neuron: Pronator Drift: Normal Sensory exam: Upper Extremity Light Touch: Normal, Lower Extremity Light Touch: Normal Motor strength exam: RUE: 5, LUE: 5, RLE: 5, LLE: 5 Eye Response: (4) open spontaneously Motor Response: (6) obeys commands Verbal Response: (5) oriented Josh Total: 15 Psychiatric exam: Present: normal affect, normal mood Skin exam: Present: warm, dry, intact, normal color. Absent: rash <Radha Mitchell - Last Filed: 06/27/20 14:26> - General Exam Comments Initial Comments: 30-year-old male. Alert but postictal and fatigues. Answering questions appropriately. Very tired and groggy. (Radha Mitchell) Course Vital Signs 06/27/20 06/27/20 06/27/20 11:44 11:57 12:57 Temperature 98.9 F Pulse Rate 97 Respiratory 20 20 20 Rate Blood Pressure 119/68 O2 Sat by Pulse 95 96 Oximetry Medical Decision Making - Lab Data Result diagrams: 06/27/20 12:09 06/27/20 12:09 <Stephan Ulloa - Last Filed: 06/27/20 14:18> - Lab Data Result diagrams: 06/27/20 12:09 06/27/20 12:09 - Radiology Data Radiology results: report reviewed <Radha Mitchell - Last Filed: 06/27/20 14:26> - Medical Decision Making Patient with seizure, head trauma. Head CT concerning for mild subarachnoid hemorrhage. I discussed case with Dr. Thakkar covering for neurology, will accept the patient has admission to this institution with repeat head CT is ordered at 12 and 24 hours. I discussed case with the pulmonary real estate appraiser Dr. Thakkar who will accept the patient is an ICU admission. (Stephan Ulloa) 30-year-old male presents emergency department today from [facility] after having a tonic-clonic seizure. Patient did hit his head. He has no obvious signs of head trauma. No acute neurological deficits but was somewhat postictal and fati yas. He was given 2 mg of IM Ativan. Patient was brought to the ER for evaluation for seizure. Patient has a long-standing history of seizure disorder and reports he is compliant with his medications including phenobarbital, Vimpat and Tegretol. Patient was given IV fluids labwork obtained. Due to minor head injury, pt had cT brain. CT shows evidence of this mild subarachnoid hemorrhage. He has no acute neurological deficits. Patient is on blood thinners. Discussed case with Dr. Ulloa discussed case with on-call neurologist. He recommended admission with repeat computed tomography scan Q12 and Q24 hours. Patient was admitted to ICU with consult to real estate appraiser (Radha Joe) - Lab Data Lab Results 06/27/20 06/27/20 Range/Units 12:09 12:09 WBC 7.6 (3.8-10.6) k/uL RBC 5.06 (4.30-5.90) m/uL Hgb 15.1 (13.0-17.5) gm/dL Hct 46.6 (39.0-53.0) % MCV 92.1 (80.0-100.0) fL MCH 29.9 (25.0-35.0) pg MCHC 32.4 (31.0-37.0) g/dL RDW 12.6 (11.5-15.5) % Plt Count 251 (150-450) k/uL Neutrophils % 64 % Lymphocytes % 19 % Monocytes % 4 % Eosinophils % 11 % Basophils % 1 % Neutrophils # 4.9 (1.3-7.7) k/uL Lymphocytes # 1.5 (1.0-4.8) k/uL Monocytes # 0.3 (0-1.0) k/uL Eosinophils # 0.8 H (0-0.7) k/uL Basophils # 0.0 (0-0.2) k/uL Sodium 140 (137-145) mmol/L Potassium 4.4 (3.5-5.1) mmol/L Chloride 109 H (98-107) mmol/L Carbon Dioxide 20 L (22-30) mmol/L Anion Gap 11 mmol/L BUN 9 (9-20) mg/dL Creatinine 0.75 (0.66-1.25) mg/dL Est GFR (CKD-EPI)AfAm >90 (>60 ml/min/1.73 sqM) Est GFR (CKD-EPI)NonAf >90 (>60 ml/min/1.73 sqM) Glucose 96 (74-99) mg/dL Calcium 9.7 (8.4-10.2) mg/dL Total Bilirubin 0.4 (0.2-1.3) mg/dL AST 20 (17-59) U/L ALT 13 (4-49) U/L Alkaline Phosphatase 131 H (38-126) U/L Total Protein 7.8 (6.3-8.2) g/dL Albumin 4.6 (3.5-5.0) g/dL Phenytoin <3.0 ug/mL Valproic Acid <10.0 ug/mL Carbamazepine 5.1 ug/mL 06/27/20 13:03 EKG shows normal sinus rhythm normal EKG. Ventricular rate of 87 bpm. Was 176 no seconds. Chemistry shows 100 ms. QT QTc is 354/425 ms. (Radha Mitchell) - Radiology Data CT of the brain shows some very small minimal subarachnoid hemorrhage along the frontal sulci may be present. CT of the brain otherwise unremarkable. (Radha Mitchell) Critical Care Time Critical Care Time: Yes Total Critical Care Time: 35 <Radha Mitchell - Last Filed: 06/27/20 14:26> Disposition <Stephan Ulloa - Last Filed: 06/27/20 14:18> Is patient prescribed a controlled substance at d/c from ED?: No Time of Disposition: 14:26 <Radha Mitchell - Last Filed: 06/27/20 14:26> Clinical Impression: SAH (subarachnoid hemorrhage), Seizure, Suicidal ideations Disposition: ADMITTED IP TO THIS [facility] Condition: Stable Referrals: None,Stated [Primary Care Provider] - 1-2 days
--- NOTE | 2020-06-27 13:20 | CT ---
EXAMINATION TYPE: CT brain wo con DATE OF EXAM: 06/27/2020 COMPARISON: 04/09/2020 INDICATION: Seizure, head injury DLP: 1113.4 mGycm, Automated exposure control for dose reduction was used. CONTRAST: None CT of the brain is performed utilizing 3 mm thick sections through the posterior fossa and 3 mm thick sections through the remaining calvarium. Study is performed within 24 hours of arrival to the hosp ital. Some very subtle increased density in relation to the adjacent brain may be present on the right fron yo region. On example of this is series 201 image 27. Small subarachnoid hemorrhage should be consid ered. No additional areas suspicious for hemorrhage are identified. Report was called to the emergenc y room Radha SESAY, by Dr. Uribe by telephone 1314 hours 06/27/2020. No mass lesion is evident. No acute infarcts are evident. Ventricles and sulci are appropriate for the patient age. Paranasal sinuses and mastoid air cells within the [id number] are clear. IMPRESSIONS: 1. Some very minimal subarachnoid hemorrhage along the frontal sulci may be present. 2. CT brain is otherwise unremarkable.
[2020-06-27] MEDS ORDERED: NALOXONE 0.4 MG/ML 1 ML VIAL IV PRN ×2 (13:46→14:27)
[2020-06-27] MEDS ORDERED: ONDANSETRON 4 MG/2 ML VIAL IVP PRN (14:27)
[2020-06-27] MEDS ORDERED: ACETAMINOPHEN TAB 325 MG TAB PO PRN ×2 (14:27→14:29)
[2020-06-27] MEDS ORDERED: IBUPROFEN 400 MG TAB PO PRN (14:27)
[2020-06-27] MEDS ORDERED: IBUPROFEN 800 MG TAB PO PRN (14:29)
[2020-06-27] MEDS ORDERED: MAGNESIUM HYDROXIDE 2,400 MG/10 ML CUP PO PRN (14:29)
[2020-06-27] MEDS ORDERED: MAG HYDROX/AL HYDROX/SIMETH 30 ML CUP PO PRN (14:29)
[2020-06-27] MEDS ORDERED: LORazepam 0.5 MG TAB PO PRN (14:29)
--- NOTE | 2020-06-27 14:46 | P.HPIM ---
History of Present Illness Patient is a 30-year-old male is being admitted for small subarachnoid hemorrhage for close monitoring into ICU and neuro checks. Patient the is awake alert and able to provide history but does have flat affect didn't answer much of my questions because of which most of the history was obtained from the ER. Note. She was transferred to psychiatric floor after he had a seizure-like activity without any loss of bowel or bladder incontinence. Patient takes carbamazepine, phenobarbital and Vimpat. Levels of these are being obtained. Patient evidently had a tonic-clonic activity after which patient was transferred to ER had a computed tomography scan of the head which showed a very minimal subarachnoid hemorrhage along the frontal sulci. Patient denied any symptoms of a tingling numbness or weakness anywhere. Patient is presently little drowsy can be postictal. Neurology was consulted and they recommended close monitoring in ICU for about 20-24 hours. Patient was admitted to psychiatric floor with suicidal and homicidal ideations although he denied any such suicidal or home nourished side ligations to me he says he is not even sure if he is depressed any more Review of Systems REVIEW OF SYSTEMS: CONSTITUTIONAL: No fever, no malaise, no fatigue. HEENT: No recent visual problems or hearing problems. Denied any sore throat. CARDIOVASCULAR: No chest pain, orthopnea, PND, no palpitations, no syncope. PULMONARY: No shortness of breath, no cough, no hemoptysis. GASTROINTESTINAL: No diarrhea, no nausea, no vomiting, no abdominal pain. NEUROLOGICAL: As mentioned in HPI HEMATOLOGICAL: Denies any bleeding or petechiae. GENITOURINARY: Denies any burning micturition, frequency, or urgency. MUSCULOSKELETAL/RHEUMATOLOGICAL: Denies any joint pain, swelling, or any muscle pain. ENDOCRINE: Denies any polyuria or polydipsia. The rest of the 14-point review of systems is negative. Past Medical History Past Medical History: GERD/Reflux, Seizure Disorder, Skin Disorder, Thyroid Disorder Additional Past Medical History / Comment(s): has history of epilepsy, hx grand mal seizures since childhood, migraines, acne, History of Any Multi-Drug Resistant Organisms: None Reported, Unobtainable Past Surgical History: Adenoidectomy, Appendectomy, Cholecystectomy, T onsillectomy Additional Past Surgical History / Comment(s): oral surgery Past Anesthesia/Blood Transfusion Reactions: Previous Problems w/ Anesthesia Additional Past Anesthesia/Blood Transfusion Reaction / Comment(s): SLOW TO WAKE FROM ANESTHESIA" Past Psychological History: Anxiety, Depression Smoking Status: Never smoker Past Alcohol Use History: None Reported Past Drug Use History: None Reported - Past Family History Mother Family Medical History: Cancer Additional Family Medical History / Comment(s): breast cancer Medications and Allergies Home Medications Medication Instructions Recorded Confirmed Type Brayton Carbonate 300 mg PO BID 03/03/18 06/27/20 History PHENobarbital 129.6 mg PO HS 10/19/18 06/27/20 History carBAMazepine [TEGretol XR] 400 mg PO HS 10/19/18 06/27/20 History Lacosamide [Vimpat] 150 mg PO BID 07/17/19 06/27/20 History Levothyroxine Sodium [Synthroid] 75 mcg PO DAILY 03/07/20 06/27/20 History Acetaminophen Tab [Tylenol] 650 mg PO Q4HR PRN tab 04/13/20 06/27/20 Rx Mag Hydrox/Al Hydrox/Simeth 30 ml PO Q4HR PRN ml 04/13/20 06/27/20 Rx [Maalox] Magnesium Hydroxide [Milk of 2,400 mg PO DAILY PRN ml 04/13/20 06/27/20 Rx Magnesia Concentrate] carBAMazepine [TEGretol XR] 200 mg PO Q12H 30 Days tab 04/13/20 06/27/20 Rx LORazepam [Ativan] 0.5 mg PO BID PRN 05/24/20 06/27/20 History Venlafaxine HCl ER [Effexor XR] 300 mg PO DAILY 05/24/20 06/27/20 History Ibuprofen [Motrin] 800 mg PO Q8H PRN 06/26/20 06/27/20 History lamoTRIgine [LaMICtal] 200 mg PO HS 06/26/20 06/27/20 History Allergies Allergy/AdvReac Type Severity Reaction Status Date / Time No Known Allergies Allergy Verified 06/27/20 02:17 Physical Exam Vitals: Vital Signs Temp Pulse Resp BP Pulse Ox 06/27/20 12:57 20 96 06/27/20 11:57 20 06/27/20 11:44 98.9 F 97 20 119/68 95 Intake and Output 06/26/20 06/27/20 06/27/20 22:59 06:59 14:59 Other: Weight 98.43 kg PHYSICAL EXAMINATION: GENERAL: The patient is drowsy and oriented x3, not in any acute distress. Well developed, well nourished. Flat affect HEENT: Pupils are round and equally reacting to light. EOMI. No scleral icterus. No conjunctival pallor. Normocephalic, atraumatic. No pharyngeal erythema. No thyromegaly. CARDIOVASCULAR: S1 and S2 present. No murmurs, rubs, or gallops. PULMONARY: Chest is clear to auscultation, no wheezing or crackles. ABDOMEN: Soft, nontender, nondistended, normoactive bowel sounds. No palpable organomegaly. MUSCULOSKELETAL: No joint swelling or deformity. EXTREMITIES: No cyanosis, clubbing, or pedal edema. NEUROLOGICAL: Gross neurological examination did not reveal any focal deficits. SKIN: No rashes. Results CBC & Chem 7: 06/27/20 12:09 06/27/20 12:09 Labs: Abnormal Lab Results - Last 24 Hours (Table) 06/27/20 06/27/20 Range/Units 12:09 12:09 Eosinophils # 0.8 H (0-0.7) k/uL Chloride 109 H (98-107) mmol/L Carbon Dioxide 20 L (22-30) mmol/L Alkaline Phosphatase 131 H (38-126) U/L Assessment and Plan Plan: -Small subarachnoid hemorrhage along the frontal sulci: Patient will be monitored as recommended by neurology. Monitored in ICU, neuro checks -Possible seizure patient does have seizure history, patient will be resumed on his home regimen along with the obtaining levels of carbamazepine and phenobarbital. -Major depression: Patient will have a sitter - esophageal reflux disease -hypothyroidism For above-mentioned medical problems patient will be resumed on his home medications DVT prophylaxis early ambulation
[2020-06-27] MEDS: SODIUM CHLORIDE 0.9% 1,000 ML IV SCH (15:26)
[2020-06-27 15:56] LABS: Glucose,Whole Blood 110 mg/dL (75-99)
--- NOTE | 2020-06-27 17:32 | P.CNNES ---
History of Present Illness Consult date: 06/27/20 Requesting physician: Radha Mitchell Reason for Consult: seizure and subarachnoid hemorraghe History of Present Illness: Is a 30-year-old gentleman with medical history of epilepsy, bipolar who was transferred to the emergency department from [facility] and inpatient mental health unit because of a breakthrough seizure on 06/27/2020. History was obtained from medical records. It's reported that the patient had generalized tonic-clonic seizure. Unsure of the duration of the seizures. An exact description of the seizures. I contacted the team and was told that the patient had generalized tonic-clonic seizure. There is no bowel or bladder incontinence. He hit his head on the end of the cabinet. Patient was given 2 mg of Ativan IM because of his seizures. He was in the inpatient mental health due to suicidal or homicidal history. She had that CT of the head in the ED and it was reported as some very minimal subarachnoid hemorrhage along the frontal sulci may be present. CT brain is otherwise unremarkable. I personally did review it and I felt was very faint hyperintensity. I spoke with patient's spouse via phone and she said that the patient didn't follow up with Dr. Chadwick over at [facility] in April 2020 and he wanted to wean down the Lacosamide and the place him on Epidiolex pending insurance authorization. The spouse was tell me that the patient does not take his antiepileptic drugs on a regular basis. He takes them whenever he feels like it at. She did state that the patient did not get his seizure medication overnight because it because the patient the came right yesterday. Patient initial vitals were blood pressure of 119/68, heart rate of 97, temperature of 98.9 Fahrenheit oral, respiratory of 20 and pulse ox of 95 at room air. EKG was reported as normal sinus rhythm. The ventricular rate of 87. Patient phenytoin level on 06/27/2020 was less than 3. Valproic less than 10 and the carbamazepine was 5.1. I personally saw the patient on the 04/10/2020 because of breakthrough seizure because of missed medication and he was notified that to continue taking Tegretol-XR 200 mg twice a day as well as 400 mg qhs, Lamictal 200 mg twice a day, Lacosamide 150 mg twice a day, phenobarbital 129.6 mg daily and Ativan 0.5 mg twice a day when necessary patient him was notified to follow up with his neurologist (Dr. Nash) over at [facility]. Review of Systems Review of system: The 12 point system was reviewed and apparent positive and negative per HPI. Past Medical History Past Medical History: GERD/Reflux, Seizure Disorder, Skin Disorder, Thyroid Disorder Additional Past Medical History / Comment(s): has history of epilepsy, hx grand mal seizures since childhood, migraines, acne, History of Any Multi-Drug Resistant Organisms: None Reported, Unobtainable Past Surgical History: Adenoidectomy, Appendectomy, Cholecystectomy, Tonsillectomy Additional Past Surgical History / Comment(s): oral surgery Past Anesthesia/Blood Transfusion Reactions: Previous Problems w/ Anesthesia Additional Past Anesthesia/Blood Transfusion Reaction / Comment(s): SLOW TO WAKE FROM ANESTHESIA" Past Psychological History: Anxiety, Depression Smoking Status: Never smoker Past Alcohol Use History: None Reported Past Drug Use History: None Reported - Past Family History Mother Family Medical History: Cancer Additional Family Medical History / Comment(s): breast cancer Medications and Allergies Home Medications Medication Instructions Recorded Confirmed Type [place] Carbonate 300 mg PO BID 03/03/18 06/27/20 History PHENobarbital 129.6 mg PO HS 10/19/18 06/27/20 History carBAMazepine [TEGretol XR] 400 mg PO HS 10/19/18 06/27/20 History Lacosamide [Vimpat] 150 mg PO BID 07/17/19 06/27/20 History Levothyroxine Sodium [Synthroid] 75 mcg PO DAILY 03/07/20 06/27/20 History Acetaminophen Tab [Tylenol] 650 mg PO Q4HR PRN tab 04/13/20 06/27/20 Rx Mag Hydrox/Al Hydrox/Simeth 30 ml PO Q4HR PRN ml 04/13/20 06/27/20 Rx [Maalox] Magnesium Hydroxide [Milk of 2,400 mg PO DAILY PRN ml 04/13/20 06/27/20 Rx Magnesia Concentrate] carBAMazepine [TEGretol XR] 200 mg PO Q12H 30 Days tab 04/13/20 06/27/20 Rx LORazepam [Ativan] 0.5 mg PO BID PRN 05/24/20 06/27/20 History Venlafaxine HCl ER [Effexor XR] 300 mg PO DAILY 05/24/20 06/27/20 History Ibuprofen [Motrin] 800 mg PO Q8H PRN 06/26/20 06/27/20 History lamoTRIgine [LaMICtal] 200 mg PO HS 06/26/20 06/27/20 History Allergies Allergy/AdvReac Type Severity Reaction Status Date / Time No Known Allergies Allergy Verified 06/27/20 16:30 Physical Examination - Vital Signs Vital Signs: Vital Signs Temp Pulse Resp BP Pulse Ox 06/27/20 15:29 98.9 F 97 20 119/68 96 06/27/20 15:00 20 96 06/27/20 14:00 20 96 06/27/20 13:00 20 96 06/27/20 12:57 20 96 06/27/20 11:57 20 06/27/20 11:44 98.9 F 97 20 119/68 95 Intake and Output 06/27/20 06/27/20 06/27/20 06:59 14:59 22:59 Other: Weight 98.43 kg GENERAL: The patient is lying in bed and is not in acute distress. CHEST: The heart rate is regular rate rhythm. No murmurs to auscultation. LUNG: Clear to auscultation bilaterally no wheezing noted throughout. Not labored breathing. ABDOMEN/GI: Bowel sounds present in all 4 quadrants. No tenderness to palpation throughout. NEUROLOGICAL: Higher mental function: The patient is awake, alert, oriented to self, place and time. Patient is following commands. No aphasia and no neglect. Cranial nerves: The pupils are round, equal and reactive to light and accommodation. Visual moya are full to confrontation throughout. Extraocular movement is intact no nystagmus is noted. Facial sensation is normal to touch throughout. The facial strength is normal throughout. Hearing is normal bilaterally to hand rub. Tongue is midline and moved [id number] without any difficulty. No dysarthria is noted but talks slow and talks in mouth twisting (Possible medication effect from psychiatry). Shoulder shrug is normal bilaterally. Motor: Gait is defered. The strength is 5 over 5 throughout. Normal tone and bulk. Cerebellum: Normal finger to nose heel to chin bilaterally. Sensation: Sensation is normal to touch throughout. Reflexes (right/left): 2+ Plantars are downgoing bilaterally. Results AST of 20, ALC of 13. PHOSPHATASE 131. - Laboratory Findings CBC and BMP: 06/27/20 12:09 06/27/20 12:09 Abnormal Lab Findings: Abnormal Labs 06/27/20 06/27/20 06/27/20 12:09 12:09 15:53 Eosinophils # 0.8 H Chloride 109 H Carbon Dioxide 20 L POC Glucose (mg/dL) 110 H Alkaline Phosphatase 131 H Assessment and Plan Assessment: Traumatic Very minimal subarachnoid hemorrhage along the frontal sulci may be present Breakthrough seizure due to missed medication Medication noncompliance Suicidal and homicidal thoughts and plan Plan: Because of this faint subarachnoid over the ---will repeated CT of the head repeat one in 12 hours and another one in 24 hours to see if there is any evolution of the hemorrhage. If there is evolution of the hemorrhage and then recommend transfer and the patient to [facility] for further evaluation. For seizure continue taking Tegretol-XR 200 mg twice a day as well as 400 mg qhs, Lamictal 200 mg twice a day, Lacosamide 150 mg twice a day, phenobarbital 129.6 mg daily. I ordered Lacosamidel as well as phenobarbital level. Upon discharge the patient is to follow up with his neurologist (Dr. Nash) over at [facility]. Per patient spouse his neurologist is concerning to lower his Lacosamide and start him on Epidiolex but pending insurance authorization The plan was discussed with the patient as well as his spouse via phone. The patient cannot drive for 6 month per [place] law because of the seizure. The patient to avoid the [place] and the swimming unattended as well as the to avoid the heavy machinery. Thank you for the consult Magno Thakkar M.D. Neuro-hospitalist Time with Patient: Greater than 30
[2020-06-27] MEDS: LITHIUM CARBONATE 300 MG CAP PO SCH (20:47)
[2020-06-27] MEDS ORDERED: carBAMazepine 400 MG TAB.ER.12H PO SCH (21:00)
[2020-06-27] MEDS ORDERED: lamoTRIgine 100 MG TAB PO SCH (21:00)
[2020-06-27] MEDS: LACOSAMIDE 150 MG TABLET PO SCH (22:04)
--- NOTE | 2020-06-27 23:51 | CONS ---
CONSULTATION PULMONARY/CRITICAL CARE CONSULTATION: June 27, 2020 This is a 30-year-old male who was on the psychiatric unit. He apparently was there because he was both homicidal and suicidal. He apparently has not been taking his antiseizure medication and he apparently had a tonoclonic seizure today. He was taken to the ER to be evaluated. He typically takes Tegretol, Vimpat, and phenobarbital. The patient apparently hit his head on a cabinet during the seizure. He had a CT scan of the brain, which apparently showed a right-sided small subarachnoid hemorrhage. For that reason, the patient was admitted to the ICU for observation. Currently, he is stable. He is not receiving any supplemental oxygen. He is getting saline at 100 mL an hour. HOME MEDICATIONS: Include lithium carbonate, phenobarbital, Tegretol, Vimpat, Synthroid Ativan, Effexor XR, Motrin, Lamictal, Tylenol, and Maalox. ALLERGIES: Denied. PAST MEDICAL HISTORY: Hypothyroidism, seizure disorder, GERD, migraines, acne, among other things. SURGICAL HISTORY: Surgical history includes adenoidectomy, appendectomy, cholecystectomy, tonsillectomy, and some oral surgery. SOCIAL HISTORY: Negative for tobacco use. He does not drink alcohol or take illicit drugs. FAMILY HISTORY: Positive for mother with breast cancer. REVIEW OF SYSTEMS: CONSTITUTIONAL: Fatigue/CP. NEUROLOGIC: Seizure. HEENT negative. CARDIOVASCULAR: Negative. PULMONARY negative. GI negative. negative. RHEUMATOLOGIC negative. IMMUNOLOGIC negative. ENDOCRINOLOGIC negative. DERMATOLOGIC negative. PHYSICAL EXAMINATION: VITAL SIGNS: Current vital signs are reviewed. Temperature is 98.9, heart rate 97, respiratory rate 20. Blood pressure 119/68, saturations on room air 96%. GENERAL: Appears in no acute distress. HEENT: Examination is grossly unremarkable. NECK: Supple full range of motion. No adenopathy. Neck veins are flat. CARDIOVASCULAR: Examination reveals regular rhythm and rate. Heart rate 97. S1, S2 normal. LUNGS: Relatively clear breath sounds. No wheezes, rhonchi, or crackles. ABDOMEN: Soft. Bowel sounds are heard. EXTREMITIES are intact. No cyanosis, clubbing, or edema. SKIN: Without rash. NEUROLOGIC: Examination is brief but nonfocal. He is a bit lethargic and somnolent. He does arouse appropriately. LABS: Reviewed. CBC is normal. Sodium 140, potassium 4.4 chloride 109, CO2 20, anion gap is 11. BUN and creatinine were normal. Alkaline phosphatase 131. A brain CT shows evidence of a small/minimal subarachnoid hemorrhage along the frontal sulci on the right. Otherwise brain CT is negative. Medications are reviewed. ASSESSMENT: 1. Status post seizure, because of noncompliance with medications, with trauma to the head, and a small subarachnoid hemorrhage in the right frontal sulci. 2. History of psychiatric disorder including being homicidal and suicidal. 3. History of chronic seizure disorder. 4. History of migraine cephalgia. 5. History of acne vulgaris. 6. History of hypothyroidism. 7. Gastroesophageal reflux disease. PLAN: The patient will be evaluated by Neurology and sit here overnight in the ICU. We will repeat a CT scan. The patient is counseled about the importance of taking his antiseizure medications. Additional recommendations and suggestions are forthcoming. Prognosis is guarded. MMODL / IJN: [id number] /
--- NOTE | 2020-06-28 00:33 | CT ---
EXAMINATION TYPE: CT brain wo con DATE OF EXAM: 06/27/2020 COMPARISON: 06/27/2020 HISTORY: seizure CT DLP: 1099.4 mGycm Automated exposure control for dose reduction was used. Ventricles have normal size. There is no mass effect nor midline shift. There is no sign of intracran ial hemorrhage. There is no evidence of cerebral edema. The calvarium is intact. IMPRESSION: Negative unenhanced head CT scan. There is clearing of the presumed of minimal subarachnoid hemorrhag e in the interhemispheric fissure compared to exam 12 hours ago.
[2020-06-28] MEDS: SODIUM CHLORIDE 0.9% 1,000 ML IV SCH ×2 (01:24→10:14)
[2020-06-28 04:20] LABS: Basophils # (A) 0.1 k/uL (0-0.2); Basophils % (A) 1 %; Eosinophils # (A) 0.6 k/uL (0-0.7); Eosinophils % (A) 8 %; HGB 13.2 gm/dL (13.0-17.5); Lymphocytes # (A) 2.8 k/uL (1.0-4.8); Lymphocytes % (A) 35 %; MCH 29.1 pg (25.0-35.0); MCHC 31.4 g/dL (31.0-37.0); MCV 92.8 fL (80.0-100.0); Mean Platelet Volume 6.7; Monocytes # (A) 0.3 k/uL (0-1.0); Monocytes % (A) 4 %; Neutrophils % (A) 51 %; Platelet Count 226 k/uL (150-450); RBC 4.53 m/uL (4.30-5.90); RDW 12.3 % (11.5-15.5)
[2020-06-28 04:42] LABS: African American GFR (CKD) >90 (>60 ml/min/1.73 sqM); Anion Gap 8 mmol/L; Blood Urea Nitrogen 9 mg/dL (9-20); Calcium 8.9 mg/dL (8.4-10.2); Carbon Dioxide 21 mmol/L (22-30); Chloride 111 mmol/L (98-107); Glucose 96 mg/dL (74-99); Non-African American GFR(CKD) >90 (>60 ml/min/1.73 sqM); Potassium 4.1 mmol/L (3.5-5.1); Sodium 140 mmol/L (137-145)
[2020-06-28] MEDS ORDERED: LEVOTHYROXINE 75 MCG TAB PO SCH (06:30)
[2020-06-28] MEDS: LACOSAMIDE 150 MG TABLET PO SCH (08:01)
[2020-06-28] MEDS: LITHIUM CARBONATE 300 MG CAP PO SCH (08:01)
[2020-06-28] MEDS ORDERED: VENLAFAXINE HCL ER 150 MG CAP PO SCH (09:00)
[2020-06-28 12:11] VITALS: TEMP 98
--- NOTE | 2020-06-28 12:13 | CT ---
EXAMINATION TYPE: CT brain wo con DATE OF EXAM: 06/28/2020 COMPARISON: CT brain yesterday and older studies HISTORY: SAH, follow up CT DLP: 1099.4 mGycm. Automated Exposure Control for Dose Reduction was Utilized. TECHNIQUE: CT scan of the head is performed without contrast. FINDINGS: There is no new acute intracranial hemorrhage or midline shift identified. Previously vis ualized probable subarachnoid hemorrhage shows lower density consistent with interval time progressio n and/or resolution. The ventricles and sulci remaining within normal limits in size. Slight asymmetr y is stable presumed congenital. Patchy soft tissue density bilateral external auditory canals consis tent with cerumen remains present. The globes are intact and the visualized sinuses are clear. IMPRESSION: No new acute intracranial hemorrhage or midline shift is seen.
--- NOTE | 2020-06-28 13:01 | PN ---
PROGRESS NOTE This is a 30-year-old male who was initially in the psychiatric unit. He apparently been homicidal and suicidal which is the reason why he was in the psychiatric unit and he does have a history of chronic seizure disorder. He apparently had not been taking his antiseizure medications and had a tonoclonic seizure in the psychiatric unit. At that time, he apparently hit his head and a subsequent CT scan done that was done showed a subarachnoid hemorrhage. The patient was transferred to the ICU for closer monitoring. Currently, he is on room air. He is getting saline at 100 mL an hour. His initial CT scan was done yesterday at 1310. He had a subsequent CT scan done at 12:30 in the morning. It was negative. A followup CT scan is scheduled for noon today. Currently, the patient is doing well. He is resting comfortably. No additional seizure activity. No other complaints. Current vital signs include a temperature of 98.1, heart rate 75, respiratory rate 16, blood pressure 125/72 mean 89, room air saturation 95%. Appears in no acute distress. HEENT: Examination is grossly unremarkable. NECK: Supple, full range of motion. No adenopathy. Neck veins are flat. CARDIOVASCULAR: Examination reveals regular rhythm and rate. Heart rate 71 beats per minute. S1, S2 normal. There is no S3, S4, or murmur. LUNGS: Reveal clear breath sounds equal. No wheezes or rhonchi. ABDOMEN: Soft, bowel sounds are heard. EXTREMITIES: Intact. No cyanosis, clubbing, or edema. SKIN: Without rash. NEUROLOGIC: Examination is brief but nonfocal. LABS: Reviewed. CBC is completely normal. Sodium 140, potassium 4.1, chloride 111, CO2 is 21, anion gap is 8. BUN and creatinine were 90 and 0.73. Microbiologic data is negative. CT scan from early this morning was evaluated. Medications are reviewed. ASSESSMENT: 1. Status post seizure, secondary to noncompliance with medications, with trauma to the head, and a small subarachnoid hemorrhage in the right frontal sulci. 2. History of psychiatric disorder, including being homicidal and suicidal. 3. History of chronic seizure disorder. 4. History of migraine cephalgia. 5. History of acne vulgaris. 6. History of hypothyroidism. 7. History of gastroesophageal reflux disease. PLAN: The patient is stable. The patient will have another CT scan at noon. Additional recommendations and suggestions are forthcoming. Followup CT scan done shortly after midnight was negative. No additional recommendations are made. Prognosis is guarded. MMODL / IJN: [id number] /
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
--- NOTE | 2020-06-28 13:57 | P.PN ---
Subjective Progress Note Date: 06/28/20 Patient was seen at bedside and that denies any headache,, nausea vomiting. He denies of any visual disturbance appear denies of any weakness any numbness. Patient had that too repeated CT of the head and the no intraparenchymal or subarachnoid hemorrhage is seen. The subarachnoid hemorrhage of seeing on the initial image was reported as resolved. Objective - Vital Signs Vital signs: Vital Signs Temp 98 F 06/28/20 12:07 Pulse 98 06/28/20 12:07 Resp 17 06/28/20 12:07 BP 112/71 06/28/20 12:07 Pulse Ox 95 06/28/20 12:07 Intake & Output 06/27/20 06/28/20 06/28/20 18:59 06:59 18:59 Intake Total 300 1200 600 Output Total 0 0 0 Balance 300 1200 600 Weight 98.43 kg 101.4 kg Intake: IV 300 1200 600 Sodium Chloride 0.9% 1, 300 1200 600 000 ml @ 100 mls/hr IV . Q10H LINO Rx#:[id number] Output: Urine 0 0 0 Other: # Voids 1 1 - Exam GENERAL: The patient is lying in bed and is not in acute distress. CHEST: The heart rate is regular rate rhythm. No murmurs to auscultation. LUNG: Clear to auscultation bilaterally no wheezing noted throughout. Not labored breathing. ABDOMEN/GI: Bowel sounds present in all 4 quadrants. No tenderness to palpation throughout. NEUROLOGICAL: Higher mental function: The patient is awake, alert, oriented to self, place and time. Patient is following commands. No aphasia and no neglect. Cranial nerves: The pupils are round, equal and reactive to light and accommodation. Visual moya are full to confrontation throughout. Extraocular movement is intact no nystagmus is noted. Facial sensation is normal to touch throughout. The facial strength is normal throughout. Hearing is normal bilaterally to hand rub. Tongue is midline and moved [id number] without any d ifficulty. No dysarthria is noted but talks slow and talks in mouth twisting (Possible medication effect from psychiatry). Shoulder shrug is normal bilaterally. Motor: Gait is defered. The strength is 5 over 5 throughout. Normal tone and bulk. Cerebellum: Normal finger to nose heel to chin bilaterally. Sensation: Sensation is normal to touch throughout. Reflexes (right/left): 2+ Plantars are downgoing bilaterally. - Labs CBC & Chem 7: 06/28/20 03:44 06/28/20 03:44 Labs: Abnormal Lab Results - Last 24 Hours (Table) 06/27/20 06/28/20 Range/Units 15:53 03:44 Chloride 111 H (98-107) mmol/L Carbon Dioxide 21 L (22-30) mmol/L POC Glucose (mg/dL) 110 H (75-99) mg/dL Assessment and Plan Assessment: Traumatic Very minimal subarachnoid hemorrhage along the frontal sulci may be present--resolved Breakthrough seizure due to missed medication Medication noncompliance Suicidal and homicidal thoughts and plan Plan: Because of this faint subarachnoid, repeated CT of the head repeat in 12 hours and another one in 24 hours showed resolution of SAH. No intraparechymal or SAH seen. For seizure continue taking Tegretol-XR 200 mg twice a day as well as 400 mg qhs, Lamictal 200 mg twice a day, Lacosamide 150 mg twice a day, phenobarbital 129.6 mg daily. Lacosamidel level is pending. Phenobarbital level: 17. Free level 9. Upon discharge the patient is to follow up with his neurologist (Dr. Nash) over at [facility]. Per patient spouse his neurologist is concerning to lower his Lacosamide and start him on Epidiolex but pending insurance authorization The plan was discussed with the patient as well as his spouse via phone. The patient cannot drive for 6 month per [place] law because of the seizure. The patient to avoid the [place] and the swimming unattended as well as the to avoid the heavy machinery. From a neurology perspective the patient is clear to be discharge and he can go back to the mental health. Magno Thakkar M.D. Neuro-hospitalist Time with Patient: Greater than 30
--- NOTE | 2020-06-28 14:49 | P.DS ---
Providers Date of admission: 06/27/20 13:46 Attending physician: Cookie Schwab Consults: 06/27/20 13:43 Consult Physician Stat Consulting Provider: Magno Thakkar Consult Reason/Comments: seizure, SAH Do you want consulting provider notified?: Already Contacted 06/27/20 14:11 Consult Physician Urgent Consulting Provider: Stephan Thakkar Consult Reason/Comments: seizure, subarachnoid hemorrhage Do you want consulting provider notified?: Already Contacted 06/27/20 15:06 Consult Physician Stat Consulting Provider: Jorge Alberto Leary Consult Reason/Comments: Suicidal/homicidal Do you want consulting provider notified?: Yes 06/28/20 12:30 Consult Physician Stat Consulting Provider: Blane Paul Consult Reason/Comments: deferral of treatment Do you want consulting provider notified?: Yes Primary care physician: Stated None Hospital Course: 30-year-old male is being admitted for small subarachnoid hemorrhage for close monitoring into ICU and neuro checks. Patient the is awake alert and able to provide history but does have flat affect didn't answer much of my questions because of which most of the history was obtained from the ER. Note. She was transferred to psychiatric floor after he had a seizure-like activity without any loss of bowel or bladder incontinence. Patient takes carbamazepine, phenobarbital and Vimpat. Levels of these are being obtained. Patient evidently had a tonic-clonic activity after which patient was transferred to ER had a computed tomography scan of the head which showed a very minimal subarachnoid hemorrhage along the frontal sulci. Patient denied any symptoms of a tingling numbness or weakness anywhere. Patient is presently little drowsy can be postictal. Neurology was consulted and they recommended close monitoring in ICU for about 20-24 hours. Patient was admitted to psychiatric floor with suicidal and homicidal ideations although he denied any such suicidal or home nourished side ligations to me he says he is not even sure if he is depressed any more. 06/28/2020 Patient had a repeat CAT scan which showed resolution of his subarachnoid hemorrhage regarding seizures, carbamazepine, phenobarbital, Vimpat are being continued at the same dose level rectal is being increased to 200 twice a day. Patient will follow-up with his urologist as an outpatient on his discharge once his discharge from psychiatric floor patient is being discharged back to psychiatric floor today. PHYSICAL EXAMINATION: GENERAL: The patient is drowsy and oriented x3, not in any acute distress. Well developed, well nourished. Flat affect HEENT: Pupils are round and equally reacting to light. EOMI. No scleral icterus. No conjunctival pallor. Normocephalic, atraumatic. No pharyngeal erythema. No thyromegaly. CARDIOVASCULAR: S1 and S2 present. No murmurs, rubs, or gallops. PULMONARY: Chest is clear to auscultation, no wheezing or crackles. ABDOMEN: Soft, nontender, nondistended, normoactive bowel sounds. No palpable organomegaly. MUSCULOSKELETAL: No joint swelling or deformity. EXTREMITIES: No cyanosis, clubbing, or pedal edema. NEUROLOGICAL: Gross neurological examination did not reveal any focal deficits. SKIN: No rashes. Assessment and Plan Plan: -Small subarachnoid hemorrhage along the frontal sulci: Patient was monitored and repeat CAT scan was obtained which showed resolution of the hemorrhage and patient is cleared to be discharged to psychiatric floor. -Possible seizure patient does have seizure history, patient will be on above- mentioned regimen -Major depression: Discharged to psychiatric floor - esophageal reflux disease -hypothyroidism Patient Condition at Discharge: Stable Plan - Discharge Summary Discharge Rx Participant: No New Discharge Prescriptions: Continue [place] Carbonate 300 mg PO BID PHENobarbital 129.6 mg PO HS carBAMazepine [TEGretol XR] 400 mg PO HS Lacosamide [Vimpat] 150 mg PO BID Levothyroxine Sodium [Synthroid] 75 mcg PO DAILY Mag Hydrox/Al Hydrox/Simeth [Maalox] 30 ml PO Q4HR PRN ml PRN Reason: GI Upset Magnesium Hydroxide [Milk of Magnesia Concentrate] 2,400 mg PO DAILY PRN ml PRN Reason: Constipation Acetaminophen Tab [Tylenol] 650 mg PO Q4HR PRN tab PRN Reason: Pain/Discomfort carBAMazepine [TEGretol XR] 200 mg PO Q12H 30 Days tab LORazepam [Ativan] 0.5 mg PO BID PRN PRN Reason: Anxiety Venlafaxine HCl ER [Effexor XR] 300 mg PO DAILY Ibuprofen [Motrin] 800 mg PO Q8H PRN PRN Reason: Pain Changed lamoTRIgine [LaMICtal] 200 mg PO BID #0 Discharge Medication List [place] Carbonate 300 mg PO BID 03/03/18 [History] PHENobarbital 129.6 mg PO HS 10/19/18 [History] carBAMazepine [TEGretol XR] 400 mg PO HS 10/19/18 [History] Lacosamide [Vimpat] 150 mg PO BID 07/17/19 [History] Levothyroxine Sodium [Synthroid] 75 mcg PO DAILY 03/07/20 [History] Acetaminophen Tab [Tylenol] 650 mg PO Q4HR PRN tab 04/13/20 [Rx] Mag Hydrox/Al Hydrox/Simeth [Maalox] 30 ml PO Q4HR PRN ml 04/13/20 [Rx] Magnesium Hydroxide [Milk of Magnesia Concentrate] 2,400 mg PO DAILY PRN ml 04/13/20 [Rx] carBAMazepine [TEGretol XR] 200 mg PO Q12H 30 Days tab 04/13/20 [Rx] LORazepam [Ativan] 0.5 mg PO BID PRN 05/24/20 [History] Venlafaxine HCl ER [Effexor XR] 300 mg PO DAILY 05/24/20 [History] Ibuprofen [Motrin] 800 mg PO Q8H PRN 06/26/20 [History] lamoTRIgine [LaMICtal] 200 mg PO BID #0 06/28/20 [Rx] Follow up Appointment(s)/Referral(s): None,Stated [Primary Care Provider] - 1-2 days Discharge Disposition: TRANSFER TO PSYCH HOSP/UNIT
[2020-06-28 15:09] VITALS: BP 122/68; PULSE 68; RESP 16
== END 2020-06-28 17:23 | DRG 86 ==
LOC: EEVIPCON 11:37 → EC 11:37 → 2SICU 13:46
PROVIDERS: ADMIT Internal Medicine; ATTEND Internal Medicine
DX: S06.6X0A Traumatic subarachnoid hemorrhage without loss of consciousness, initial encounter (principal); R45.851 Suicidal ideations; G40.409 Other generalized epilepsy and epileptic syndromes, not intractable, without status epilepticus; R45.850 Homicidal ideations; E03.9 Hypothyroidism, unspecified; T50.996A Underdosing of other drugs, medicaments and biological substances, initial encounter; F32.9 Major depressive disorder, single episode, unspecified; F41.9 Anxiety disorder, unspecified; K21.9 Gastro-esophageal reflux disease without esophagitis; G43.909 Migraine, unspecified, not intractable, without status migrainosus; Z79.890 Hormone replacement therapy; Z79.899 Other long term (current) drug therapy; Z90.49 Acquired absence of other specified parts of digestive tract; Z91.128 Patient's intentional underdosing of medication regimen for other reason; Z90.89 Acquired absence of other organs; Z87.19 Personal history of other diseases of the digestive system; Z87.898 Personal history of other specified conditions; Z80.3 Family history of malignant neoplasm of breast; W19.XXXA Unspecified fall, initial encounter; W22.09XA Striking against other stationary object, initial encounter; Y92.239 Unspecified place in hospital as the place of occurrence of the external cause
CPT/HCPCS: 36415; 70450; 80048; 80053; 80156; 80164; 80184; 80185; 80235; 85025; 93005; 96360; 99291

== ENCOUNTER 2020-06-28 17:35 | Inpatient (IN) | payer MEDICARE, MEDICAID ==
[2020-06-28] MEDS ORDERED: MAGNESIUM HYDROXIDE 2,400 MG/10 ML CUP PO PRN ×2 (17:40→17:43)
[2020-06-28] MEDS ORDERED: LORazepam 1 MG TAB PO PRN (17:40)
[2020-06-28] MEDS ORDERED: ACETAMINOPHEN TAB 325 MG TAB PO PRN ×2 (17:40→17:43)
[2020-06-28] MEDS ORDERED: MAG HYDROX/AL HYDROX/SIMETH 30 ML CUP PO PRN ×2 (17:40→17:43)
[2020-06-28] MEDS ORDERED: LORazepam 0.5 MG TAB PO PRN (17:43)
[2020-06-28] MEDS ORDERED: IBUPROFEN 800 MG TAB PO PRN (17:43)
[2020-06-28] MEDS: LITHIUM CARBONATE 300 MG CAP PO SCH (20:43)
[2020-06-28] MEDS: carBAMazepine 400 MG TAB.ER.12H PO SCH (20:43)
[2020-06-28] MEDS: LACOSAMIDE 150 MG TABLET PO SCH (20:44)
[2020-06-28] MEDS: lamoTRIgine 100 MG TAB PO SCH (20:44)
[2020-06-29 02:26] LABS: Hemoglobin A1C 5.2 % (4.0-6.0)
[2020-06-29] MEDS: VENLAFAXINE HCL ER 150 MG CAP PO SCH (08:38)
[2020-06-29] MEDS: LITHIUM CARBONATE 300 MG CAP PO SCH ×2 (08:38→20:54)
[2020-06-29] MEDS: lamoTRIgine 100 MG TAB PO SCH ×2 (08:38→20:54)
[2020-06-29] MEDS: LACOSAMIDE 150 MG TABLET PO SCH ×2 (08:38→20:54)
[2020-06-29] MEDS ORDERED: NICOTINE POLACRILEX 2 MG GUM BUCCAL PRN (11:20)
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
[2020-06-29] MEDS: carBAMazepine 400 MG TAB.ER.12H PO SCH (20:54)
--- NOTE | 2020-06-29 21:10 | P.MDCNMH ---
History of Present Illness H&P Date: 06/29/20 Chief Complaint: Suicidal and homicidal ideation Patient is a 30-year-old male with a known history of seizure disorder, anxiety/depression and bipolar disorder, hypothyroidism and GERD was initially admitted to ICU due to small subarachnoid hemorrhage. Patient had repeated CT of the head which showed no intraparenchymal or subarachnoid hemorrhage. Patient did admit to having suicidal and Humorsol thoughts and plan. Patient was seen with psychiatry and eventually transferred to inpatient psychiatric unit. Patient also has history of seizure disorder on on multiple antiepileptic medications at home including carbamazepine, phenobarbital and Vimpat which are being continued. Lamictal dose increased to 200 mg twice daily. Patient has noncompliance with medications at home. Patient is currently in the psychiatric unit. Laboratory data showed triglycerides 141, total cholesterol 203 and LDL of 145, TSH 0.023 and free T4 level is 1.05. Patient does take levothyroxine 75 mcg daily. Patient is awake alert and oriented but does have flat affect and is not a good historian. Review of Systems Constitutional: Patient denies any fever or chills . No generalized weakness or weight loss. Abdomen: Patient denied nausea vomiting and diarrhea and abdominal pain. Cardiovascular: Patient denies any chest pain or short of breath no palpitations. Respiratory: patient denied any cough or sputum production. No shortness of breath Neurologic: Patient denied any numbness or tingling headache. Musculoskeletal: Patient denies any complaints of joint swelling or deformity. Skin: Negative Psychiatric: Denied any suicidal ideation currently Endocrine: No heat or cold intolerance. No recent weight gain. Genitourinary: No dysuria or hematuria. All other 14 point ROS negative except the above Past Medical History Past Medical History: GERD/Reflux, Seizure Disorder, Skin Disorder, Thyroid Disorder Additional Past Medical History / Comment(s): has history of epilepsy, hx grand mal seizures since childhood, migraines, acne, History of Any Multi-Drug Resistant Organisms: None Reported, Unobtainable Past Surgical History: Adenoidectomy, Appendectomy, Cholecystectomy, Tonsillectomy Additional Past Surgical History / Comment(s): oral surgery Past Anesthesia/Blood Transfusion Reactions: Previous Problems w/ Anesthesia Additional Past Anesthesia/Blood Transfusion Reaction / Comment(s): SLOW TO WAKE FROM ANESTHESIA" Past Psychological History: Anxiety, Depression Smoking Status: Never smoker Past Alcohol Use History: None Reported Past Drug Use History: None Reported - Past Family History Mother Family Medical History: Cancer Additional Family Medical History / Comment(s): breast cancer Medications and Allergies Home Medications Medication Instructions Recorded Confirmed Type [place] Carbonate 300 mg PO BID 03/03/18 06/28/20 History PHENobarbital 129.6 mg PO HS 10/19/18 06/28/20 History carBAMazepine [TEGretol XR] 400 mg PO HS 10/19/18 06/28/20 History Lacosamide [Vimpat] 150 mg PO BID 07/17/19 06/28/20 History Levothyroxine Sodium [Synthroid] 75 mcg PO DAILY 03/07/20 06/28/20 History Acetaminophen Tab [Tylenol] 650 mg PO Q4HR PRN tab 04/13/20 06/28/20 Rx Mag Hydrox/Al Hydrox/Simeth 30 ml PO Q4HR PRN ml 04/13/20 06/28/20 Rx [Maalox] Magnesium Hydroxide [Milk of 2,400 mg PO DAILY PRN ml 04/13/20 06/28/20 Rx Magnesia Concentrate] carBAMazepine [TEGretol XR] 200 mg PO Q12H 30 Days tab 04/13/20 06/28/20 Rx LORazepam [Ativan] 0.5 mg PO BID PRN 05/24/20 06/28/20 History Venlafaxine HCl ER [Effexor XR] 300 mg PO DAILY 05/24/20 06/28/20 History Ibuprofen [Motrin] 800 mg PO Q8H PRN 06/26/20 06/28/20 History lamoTRIgine [LaMICtal] 200 mg PO BID #0 06/28/20 06/28/20 Rx Allergies Allergy/AdvReac Type Severity Reaction Status Date / Time No Known Allergies Allergy Verified 06/28/20 18:18 Physical Exam Vitals: Vital Signs Temp Pulse Resp BP Pulse Ox 06/29/20 06:29 97.9 F 88 111/60 88 L 06/28/20 18:25 98 F 106 H 14 139/77 98 Intake and Output 06/28/20 06/29/20 06/29/20 22:59 06:59 14:59 Other: Weight 101.4 kg PHYSICAL EXAMINATION: Patient is lying in the bed comfortably, no acute distress, awake alert and oriented.. HEENT: Normocephalic. Neck is supple. Pupils reactive. Nostrils clear. Oral cavity is moist. Ears reveal no drainage. Neck reveals no JVD, carotid bruits, or thyromegaly. CHEST EXAMINATION: Trachea is central. Symmetrical expansion. Lung moya clear to auscultation and percussion. CARDIAC: Normal S1, S2 with no gallops. No murmurs ABDOMEN: Soft. Bowel sounds normal. No organomegaly. No abdominal bruits. Extremities: reveal no edema. No clubbing or cyanosis Neurologically awake, alert, oriented x3 with well-coordinated movements. No focal deficits noted Skin: No rash or skin lesions. Psychiatric: Coperative. Nonsuicidal currently, flat affect. Musculoskeletal: No joint swelling or deformity. Normal range of motion. Cranial Nerve Examination - Cranial Nerves Cranial Nerve I- Olfactory: Intact Cranial Nerve II- Optic: Intact Cranial Nerve III- Oculomotor: Intact Cranial Nerve IV- Trochlear: Intact Cranial Nerve V- Trigeminal: Intact Cranial Nerve - Abducens: Intact Cranial Nerve VII- Facial: Intact Cranial Nerve VIII- Auditory: Intact Cranial Nerve IX- Glossopharyngeal: Intact Cranial Nerve X- Vagus: Intact Cranial Nerve XI- Accessory: Intact Cranial Nerve XII- Hypoglossal: Intact Results Labs: Abnormal Lab Results - Last 24 Hours (Table) 06/28/20 Range/Units 18:14 Cholesterol 203 H (<200) mg/dL LDL Cholesterol, Calc 145 H (0-99) mg/dL HDL Cholesterol 30 L (40-60) mg/dL TSH 0.023 L (0.465-4.680) mIU/L Assessment and Plan Assessment: Minimal subarachnoid hemorrhage along the frontal sulci. Traumatic. Resolved now. Breakthrough seizures due to medication noncompliance Suicidal ideation and homicidal ideation Major depression GERD Hypothyroidism Sinus tachycardia DVT prophylaxis early ambulation Plan: Patient will be continued on current antiepileptic drugs and psychiatric medications. Levothyroxine is on hold due to low TSH and normal free T4 level. Follow-up with PCP in next 4 to 6 weeks for repeat TSH and free T4 level. We will continue to follow and further recommendations based on clinical course. Thank you for your consult. Time with Patient: Greater than 30
[2020-06-30] MEDS: VENLAFAXINE HCL ER 150 MG CAP PO SCH (08:58)
[2020-06-30] MEDS: LACOSAMIDE 150 MG TABLET PO SCH (08:58)
[2020-06-30] MEDS: lamoTRIgine 100 MG TAB PO SCH (08:58)
[2020-06-30] MEDS: LITHIUM CARBONATE 300 MG CAP PO SCH (08:58)
--- NOTE | 2020-06-30 09:57 | P.DS ---
Providers Date of admission: 06/28/20 17:35 Expected date of discharge: 06/30/20 Attending physician: Blane Paul MD Consults: 06/28/20 17:40 Consult Physician Routine Consulting Provider: Juliana Bennett Consult Reason/Comments: medical management Do you want consulting provider notified?: Yes Primary care physician: Stated None - Discharge Diagnosis(es) (1) Major depressive disorder without psychotic features Current Visit: Yes Status: Acute Priority: High (2) Intellectual disability Current Visit: Yes Status: Acute Priority: Low Hospital Course: Admission HPI: Admission was completed by entry writer "Patient is a 30-year-old male who is currently and lives with his has one son collects social security and is unemployed. Patient presented to the hospital brought in by the police. Patient was petitioned by the police claiming that he was having thoughts of "murder-suicide". Patient was apparently thinking about killing someone else and then killing himself but the past day or so. He did not endorse any specific target for his homicidal ideations. His UDS was positive for barbiturates only. He was admitted to the mental health floor on petition and clinical certificate. He claimed that he was feeling depressed for the past 2 weeks and states that yesterday he was "talking about murder and suicide". When asked to describe more he states that he spoke to his about this and was concerned and then ended up calling the police to take him into the hospital. He states that he has a knife at home and was going to use it and a lso he did not have a specific plan or target. He claims that currently he is feeling depressed however denies anxiety. He states that he has been taking his medications at home. He states that he does have seizures and needs several different antiepileptic medications. He denies any issues with his or family and denies any triggers at home. After initial psychiatric evaluation, patient went to the activity room to participate in group however had a seizure witnessed by staff and hit his head on the shelf on his way down. Patient was given 2 mg IM of Ativan for seizure and evaluated and transferred to the ER for further evaluation and then transferred to medicine. Patient had neurology consultation to evaluate his medications and also his head injury. Patient did have a subarachnoid hemorrhage and with repeat CT scans showing that it is resolving. Patient was seen for follow-up with neurology and signed off on this case yesterday as subarachnoid hemorrhage has resolved. Patient was seen today for psychiatric consultation and was cleared by medicine and transferred back to mental health unit for further treatment and evaluation for patient's depression. Patient was seen this morning for interview and assessment. Patient appeared to be more social and interactive with entry writer. He claims that he is feeling "much better" with regards to his depression and anxiety. He claims that he is tending to get along with others on the unit and will be trying to go to groups today. He states that he has been speaking with his over the phone and claims that he misses his family. He states that he is able to sleep better last night has been taking his medications. He denies any current suicidal or homicidal ideations intent or plan. At this time patient denies any auditory or visual hallucinations. Patient admits to using no recreational drugs or cigarettes or alcohol." Hospital course: Upon admission to the unit patient was initially the past and having suicidal thoughts along with homicidal thoughts. Patient was brought in on a petition and certificate and a second certificate was completed and filed with the courts. Patient ended up deferring court and agreeing to treatment on date of discharge. Patient got along well with other patients on the unit and followed unit protocol. Patient was compliant with the medications and denied any side effects throughout hospital course. Patient was started on his home doses of mood stabilizers and antiepileptic medications. Patient was also resumed on lithium 300 mg twice a day for mood stabilization, Effexor XL or 300 mg daily for mood/anxiety. Patient spoke of his stressors and engaged in therapy both group and individual. Patient was also seen by medical team for history and physical exam. Patient had various imaging studies completed while he was on the medical floor including serial CT scans of his brain which initially showed subarachnoid hemorrhage however with follow-up study showed resolution. Neurology was consulted while in the medical floors and signed off on patient's care. Patient will be following up with his outpatient neurologist Dr. Cruz through [facility]. Patient did have a lithium level drawn on 06/28/20 which showed 0.5. Throughout the course of the hospitalization patient gradually improved with regards to mood, anxiety, sleep and became future oriented with improved insight and judgment. On the day of discharge patient denied any suicidal or homicidal ideations intent or plan denied any auditory or visual hallucinations. Patient endorsed wanting to live for his health and family. The patient denied any access to guns or weapons. Patient denied any paranoia and did not endorse any delusions. Patient does not have a significant history of substance abuse however was counseled on abstaining from all substances including alcohol and marijuana. Patient was also counseled on the medications and need for regular compliance and was encouraged to follow-up with their outpatient appointment for mental health and also for primary care. Prior to discharge a family meeting will be arranged by social worker assistant to answer any questions and ensure safety upon discharge. Mental status exam: General Appearance: Patient appears to be stated age is alert, pleasant, and cooperative. Patient is in no acute distress and has improved hygiene and grooming Behavior: Patient is calmly seated without any agitated behavior. Speech: Patient's speech is fluent and nonpressured. Mood/Affect: Patient reports their mood is "good", affect is congruent and euthymic. Suicidality/Homicidality: Patient denies having any suicidal or homicidal ideation intent or plan. Perceptions: Patient denies any auditory or visual hallucinations. Though content/process: There is no evidence of any delusional thought content and thought process is linear and goal-directed. more future oriented Memory and concentration: AOX3, grossly intact for the purposes of this session. Can spell "WORLD" backwards correctly. Judgment and insight: improved with guarded prognosis Impression: Major depressive disorder, without psychotic features Intellectual disability Plan: -Continue with discharge today as patient has improved and stabilized psychiatrically and is not currently an imminent threat to himself and/or others. Patient will remain at chronically elevated risk for harm to self and/or others due to his impulsivity and medication noncompliance. -Continue medications: Continue with antiepileptic medications as previously prescribed, his home dose. Continue Lamictal 200 mg twice a day, lithium 300 mg twice a day for mood stabilization. Continue with Effexor XR 300 mg daily for mood/anxiety. -Patient was counseled on the need for medication compliance and appropriate follow-up at mental health and also primary care for medical issues. Patient verbalized understanding and agreed. -Social work to arrange for and conduct family meeting to ensure safety upon discharge and answer any questions/concerns. Social work also to arrange for patients follow up appointments with [facility] for psychiatric care along with follow up with primary care provider. Patient is also advised to follow-up with his outpatient neurologist for his seizure disorder and antiepileptic medications management, which his next appointment in August 2020. -Patient counseled on abstaining from recreational drugs and marijuana and alcohol. Was informed/educated on the adverse effects on their physical and mental health. Patient verbally agreed and understood. -Patient was instructed to return to the hospital or seek immediate medical care if their psychiatric or medical symptoms do worsen or reoccur. Patient Condition at Discharge: Stable Plan - Discharge Summary New Discharge Prescriptions: New Nicotine Polacrilex [Nicorette] 2 mg BUCCAL Q4HR PRN 14 Days gum PRN Reason: Nicotine Cravings Continue [place] Carbonate 300 mg PO BID PHENobarbital 129.6 mg PO HS carBAMazepine [TEGretol XR] 400 mg PO HS Lacosamide [Vimpat] 150 mg PO BID carBAMazepine [TEGretol XR] 200 mg PO Q12H 30 Days tab lamoTRIgine [LaMICtal] 200 mg PO BID #0 Venlafaxine HCl ER [Effexor XR] 300 mg PO DAILY 30 Days cap Levothyroxine Sodium [Synthroid] 75 mcg PO DAILY 30 Days tab Discontinued Mag Hydrox/Al Hydrox/Simeth [Maalox] 30 ml PO Q4HR PRN ml PRN Reason: GI Upset Magnesium Hydroxide [Milk of Magnesia Concentrate] 2,400 mg PO DAILY PRN ml PRN Reason: Constipation Acetaminophen Tab [Tylenol] 650 mg PO Q4HR PRN tab PRN Reason: Pain/Discomfort LORazepam [Ativan] 0.5 mg PO BID PRN PRN Reason: Anxiety Ibuprofen [Motrin] 800 mg PO Q8H PRN PRN Reason: Pain Discharge Medication List Waller Carbonate 300 mg PO BID 03/03/18 [History] PHENobarbital 129.6 mg PO HS 10/19/18 [History] carBAMazepine [TEGretol XR] 400 mg PO HS 10/19/18 [History] Lacosamide [Vimpat] 150 mg PO BID 07/17/19 [History] carBAMazepine [TEGretol XR] 200 mg PO Q12H 30 Days tab 04/13/20 [Rx] lamoTRIgine [LaMICtal] 200 mg PO BID #0 06/28/20 [Rx] Levothyroxine Sodium [Synthroid] 75 mcg PO DAILY 30 Days tab 06/30/20 [Rx] Nicotine Polacrilex [Nicorette] 2 mg BUCCAL Q4HR PRN 14 Days gum 06/30/20 [Rx] Venlafaxine HCl ER [Effexor XR] 300 mg PO DAILY 30 Days cap 06/30/20 [Rx] Follow up Appointment(s)/Referral(s): [facility] [Outside] - 1 Week (07/06/[address] at [address] Slater in the office ) Activity/Diet/Wound Care/Special Instructions: Activity and diet as tolerated. Avoid the use of street drugs and alcohol. Take all medications as prescribed. When you are in need of refills on your medications please contact your medical provider and/or outpatient psychiatrist to have this done. Please go to scheduled outpatient appointment for aftercare treatment. If symptoms return or become worse, call the crisis line at and/or go to the nearest emergency room for evaluation. Discharge Disposition: HOME SELF-CARE
[2020-06-30 12:13] VITALS: BP 133/76; PULSE 95; RESP 16; TEMP 97.6
== END 2020-06-30 13:23 | disposition home or self-care (01) | DRG 881 ==
LOC: 3MHU 17:35
PROVIDERS: ADMIT Psychiatry & Neurology Psychiatry; ATTEND Psychiatry & Neurology Psychiatry
DX: F32.9 Major depressive disorder, single episode, unspecified (principal); S06.6X0A Traumatic subarachnoid hemorrhage without loss of consciousness, initial encounter; R45.851 Suicidal ideations; R45.850 Homicidal ideations; G40.909 Epilepsy, unspecified, not intractable, without status epilepticus; F79 Unspecified intellectual disabilities; Z91.128 Patient's intentional underdosing of medication regimen for other reason; T50.906A Underdosing of unspecified drugs, medicaments and biological substances, initial encounter; F41.9 Anxiety disorder, unspecified; E03.9 Hypothyroidism, unspecified; R45.87 Impulsiveness; K21.9 Gastro-esophageal reflux disease without esophagitis; Z79.890 Hormone replacement therapy; Z79.899 Other long term (current) drug therapy; Y63.6 Underdosing and nonadministration of necessary drug, medicament or biological substance; Z87.2 Personal history of diseases of the skin and subcutaneous tissue; Z90.49 Acquired absence of other specified parts of digestive tract; Z87.19 Personal history of other diseases of the digestive system; Z90.89 Acquired absence of other organs; Z98.890 Other specified postprocedural states; W22.09XA Striking against other stationary object, initial encounter; Z80.3 Family history of malignant neoplasm of breast
CPT/HCPCS: 80061; 80178; 83036; 84439; 84443

== ENCOUNTER 2020-07-01 22:28 | Emergency (ER) | payer MEDICARE, OTHER ==
--- NOTE | 2020-07-01 23:14 | ED ---
Psych HPI - General Chief Complaint: Psychiatric Symptoms Stated Complaint: Police petition Time Seen by Provider: 07/01/20 22:56 Source: patient, EMS Mode of arrival: EMS - History of Present Illness Initial Comments: This patient is a 30-year-old man who is here to have psychiatric evaluation after his filed a petition. The patient states that he and his had an argument after he had researched some profiles on Facebook. He states that he during the fight made statements to the effect of him not having a life because she is so controlling. The patient states that his interpreted this as being suicidal. The patient states he is not feeling suicidal. He states that he does have things to live for. Complaint: other -: hour(s) Associated Psychiatric Symptoms: none Quality: constant Improves With: none Worsens With: none - Related Data Home Medications Medication Instructions Recorded Confirmed [place] Carbonate 300 mg PO BID 03/03/18 06/28/20 PHENobarbital 129.6 mg PO HS 10/19/18 06/28/20 carBAMazepine [TEGretol XR] 400 mg PO HS 10/19/18 06/28/20 Lacosamide [Vimpat] 150 mg PO BID 07/17/19 06/28/20 Previous Rx's Medication Instructions Recorded carBAMazepine [TEGretol XR] 200 mg PO Q12H 30 Days tab 04/13/20 lamoTRIgine [LaMICtal] 200 mg PO BID #0 06/28/20 Levothyroxine Sodium [Synthroid] 75 mcg PO DAILY 30 Days tab 06/30/20 Nicotine Polacrilex [Nicorette] 2 mg BUCCAL Q4HR PRN 14 Days gum 06/30/20 Venlafaxine HCl ER [Effexor XR] 300 mg PO DAILY 30 Days cap 06/30/20 Allergies Allergy/AdvReac Type Severity Reaction Status Date / Time No Known Allergies Allergy Verified 07/01/20 22:51 Review of Systems ROS Statement: Those systems with pertinent positive or pertinent negative responses have been documented in the HPI. ROS Other: All systems not noted in ROS Statement are negative. Constitutional: Denies: fever Respiratory: Denies: cough, dyspnea Cardiovascular: Denies: chest pain, palpitations Gastrointestinal: Denies: abdominal pain, vomiting, diarrhea Musculoskeletal: Denies: back pain Skin: Denies: rash Neurological: Denies: headache, weakness Psychiatric: Denies: anxiety, depression, auditory hallucinations, visual hallucinations, homicidal thoughts, suicidal thoughts Past Medical History Past Medical History: GERD/Reflux, Seizure Disorder, Skin Disorder, Thyroid Disorder Additional Past Medical History / Comment(s): has history of epilepsy, hx grand mal seizures since childhood, migraines, acne, History of Any Multi-Drug Resistant Organisms: None Reported, Unobtainable Past Surgical History: Adenoidectomy, Appendectomy, Cholecystectomy, Tonsillectomy Additional Past Surgical History / Comment(s): oral surgery Past Anesthesia/Blood Transfusion Reactions: Previous Problems w/ Anesthesia Additional Past Anesthesia/Blood Transfusion Reaction / Comment(s): SLOW TO WAKE FROM ANESTHESIA" Past Psychological History: Anxiety, Depression Smoking Status: Never smoker Past Alcohol Use History: None Reported Past Drug Use History: None Reported - Past Family History Mother Family Medical History: Cancer Additional Family Medical History / Comment(s): breast cancer General Exam General appearance: alert, in no apparent distress Head exam: Present: atraumatic, normocephalic Eye exam: Present: normal appearance. Absent: scleral icterus, conjunctival injection Respiratory exam: Present: normal lung sounds bilaterally. Absent: respiratory distress, wheezes, rales, rhonchi, stridor Cardiovascular Exam: Present: regular rate, normal rhythm, normal heart sounds. Absent: systolic murmur, diastolic murmur, rubs, gallop GI/Abdominal exam: Present: soft. Absent: distended, tenderness, guarding Extremities exam: Present: normal inspection, normal capillary refill Neurological exam: Present: alert Psychiatric exam: Present: normal affect, normal mood. Absent: depressed, agitated, anxious, flat affect, manic, homicidal ideation, suicidal ideation Skin exam: Present: warm, dry, intact, normal color. Absent: rash Course Vital Signs 07/01/20 22:41 Temperature 98.3 F Pulse Rate 89 Respiratory 16 Rate Blood Pressure 149/90 O2 Sat by Pulse 96 Oximetry Disposition Clinical Impression: Adjustment reaction of adult life Disposition: HOME SELF-CARE Condition: Good Instructions (If sedation given, give patient instructions): Mood Disorders (ED) Is patient prescribed a controlled substance at d/c from ED?: No Referrals: None,Stated [Primary Care Provider] - 1-2 days
[2020-07-02] MEDS ORDERED: LORazepam 1 MG TAB PO STA (00:25)
[2020-07-02 00:39] LABS: Amphetamine Screen,Urine Not Detected (NotDetected); Barbiturate Screen,Urine Detected (NotDetected); Benzodiazepines Screen,Urine Not Detected (NotDetected); Cocaine Screen,Urine Not Detected (NotDetected); Methadone Screen, Urine Not Detected (NotDetected); Opiate Screen,Urine Not Detected (NotDetected); Oxycodone Screen, Urine Not Detected (NotDetected); Phencyclidine Screen,Urine Not Detected (NotDetected); Tricyclic Antidepressant,Urine Not Detected (NotDetected); Urn Cannabinoid Scrn Not Detected (NotDetected)
[2020-07-02 00:43] VITALS: BP 122/84; PULSE 98; RESP 18; TEMP 97.8
== END 2020-07-02 00:44 | disposition home or self-care (01) ==
LOC: EC 22:28
DX: F43.20 Adjustment disorder, unspecified (principal); F41.9 Anxiety disorder, unspecified; F32.9 Major depressive disorder, single episode, unspecified; G40.909 Epilepsy, unspecified, not intractable, without status epilepticus; Z79.899 Other long term (current) drug therapy
CPT/HCPCS: 80306; 82075; 99284

== ENCOUNTER 2020-07-05 15:03 | Emergency (ER) | payer MEDICARE, OTHER ==
--- NOTE | 2020-07-05 15:29 | ED ---
Psych HPI - General Source: patient, police Mode of arrival: ambulatory <Martin Smith - Last Filed: 07/05/20 19:51> <Hakeem Soto - Last Filed: 07/06/20 07:14> - General Chief Complaint: Psychiatric Symptoms Stated Complaint: EPS eval Time Seen by Provider: 07/05/20 15:14 - History of Present Illness Initial Comments: Patient is a 30-year-old male presents to the emergency department for psychiatric evaluation. Please upper most contacted regarding the patient having suicidal ideation by another person that his friend to the patient. Patient states he wants to kill "them" but does not specify who. States that he would kill them with a knife and it would kill himself in the same manner. Patient states she should be taking multiple medication but does not take them at the appropriate time. (Martin Smith) - Related Data Home Medications Medication Instructions Recorded Confirmed [place] Carbonate 300 mg PO BID 03/03/18 07/05/20 PHENobarbital 129.6 mg PO HS 10/19/18 07/05/20 carBAMazepine [TEGretol XR] 400 mg PO HS 10/19/18 07/05/20 Lacosamide [Vimpat] 150 mg PO BID 07/17/19 07/05/20 Previous Rx's Medication Instructions Recorded carBAMazepine [TEGretol XR] 200 mg PO Q12H 30 Days tab 04/13/20 lamoTRIgine [LaMICtal] 200 mg PO BID #0 06/28/20 Levothyroxine Sodium [Synthroid] 75 mcg PO DAILY 30 Days tab 06/30/20 Nicotine Polacrilex [Nicorette] 2 mg BUCCAL Q4HR PRN 14 Days gum 06/30/20 Venlafaxine HCl ER [Effexor XR] 300 mg PO DAILY 30 Days cap 06/30/20 Allergies Allergy/AdvReac Type Severity Reaction Status Date / Time No Known Allergies Allergy Verified 07/05/20 16:17 Review of Systems ROS Other: All systems not noted in ROS Statement are negative. <Martin Smith - Last Filed: 07/05/20 19:51> ROS Other: All systems not noted in ROS Statement are negative. <Hakeem Soto - Last Filed: 07/06/20 07:14> ROS Statement: Those systems with pertinent positive or pertinent negative responses have been documented in the HPI. Past Medical History Past Medical History: GERD/Reflux, Seizure Disorder, Skin Disorder, Thyroid Disorder Additional Past Medical History / Comment(s): has history of epilepsy, hx grand mal seizures since childhood, migraines, acne, History of Any Multi-Drug Resistant Organisms: None Reported, Unobtainable Past Surgical History: Adenoidectomy, Appendectomy, Cholecystectomy, Tonsillectomy Additional Past Surgical History / Comment(s): oral surgery Past Anesthesia/Blood Transfusion Reactions: Previous Problems w/ Anesthesia Additional Past Anesthesia/Blood Transfusion Reaction / Comment(s): SLOW TO WAKE FROM ANESTHESIA" Past Psychological History: Anxiety, Depression Smoking Status: Never smoker Past Alcohol Use History: None Reported Past Drug Use History: None Reported - Past Family History Mother Family Medical History: Cancer Additional Family Medical History / Comment(s): breast cancer <Martin Smith - Last Filed: 07/05/20 19:51> General Exam Limitations: no limitations General appearance: alert, in no apparent distress Head exam: Present: atraumatic, normocephalic, normal inspection Eye exam: Present: normal appearance, PERRL, EOMI Pupils: Present: normal accommodation ENT exam: Present: normal exam, normal oropharynx, mucous membranes moist, TM's normal bilaterally, normal external ear exam Neck exam: Present: normal inspection, full ROM. Absent: tenderness Respiratory exam: Present: normal lung sounds bilaterally. Absent: respiratory distress, wheezes, rales Cardiovascular Exam: Present: regular rate, normal rhythm, normal heart sounds GI/Abdominal exam: Present: soft. Absent: distended, tenderness, guarding, rebound Extremities exam: Present: normal inspection, full ROM, normal capillary refill, other (+2 ulnar and radial pulses bilateral.). Absent: tenderness Back exam: Present: normal inspection, full ROM. Absent: tenderness, CVA tenderness (L) Neurological exam: Present: alert, oriented X3, normal gait Psychiatric exam: Present: normal affect, normal mood, suicidal ideation Skin exam: Present: warm, dry, intact, normal color <Martin Smith - Last Filed: 07/05/20 19:51> Course Vital Signs 07/05/20 07/06/20 15:08 06:25 Temperature 98.0 F Pulse Rate 99 66 Respiratory 20 18 Rate Blood Pressure 154/89 116/72 O2 Sat by Pulse 99 96 Oximetry Medical Decision Making <Martin Smith - Last Filed: 07/05/20 19:51> - Lab Data Result diagrams: 07/05/20 23:59 07/05/20 23:59 <Hakeem Soto - Last Filed: 07/06/20 07:14> - Medical Decision Making Patient 30-year-old male with history of suicidal ideations presenting to the e mergency department for psychiatric evaluation. Physical examination is unremarkable. Patient does have suicidal and homicidal ideations and plans to perform a using a knife. The penis evaluated the patient and they will be transferred to another facility for further psychiatric treatment. (Martin Smith) I did see the patient and discussed case with him for purpose of following the clinical certificate. (Hakeem Soto) - Lab Data Lab Results 07/05/20 07/05/20 07/05/20 Range/Units 00:00 15:26 23:59 WBC 8.6 (3.8-10.6) k/uL RBC 4.80 (4.30-5.90) m/uL Hgb 15.1 (13.0-17.5) gm/dL Hct 45.1 (39.0-53.0) % MCV 94.0 (80.0-100.0) fL MCH 31.5 (25.0-35.0) pg MCHC 33.5 (31.0-37.0) g/dL RDW 12.3 (11.5-15.5) % Plt Count 259 (150-450) k/uL Sodium (137-145) mmol/L Potassium (3.5-5.1) mmol/L Chloride (98-107) mmol/L Carbon Dioxide (22-30) mmol/L Anion Gap mmol/L BUN (9-20) mg/dL Creatinine (0.66-1.25) mg/dL Est GFR (CKD-EPI)AfAm (>60 ml/min/1.73 sqM) Est GFR (CKD-EPI)NonAf (>60 ml/min/1.73 sqM) Glucose (74-99) mg/dL Calcium (8.4-10.2) mg/dL Total Bilirubin (0.2-1.3) mg/dL AST (17-59) U/L ALT (4-49) U/L Alkaline Phosphatase (38-126) U/L Total Protein (6.3-8.2) g/dL Albumin (3.5-5.0) g/dL Urine Color Yellow Urine Appearance Clear (Clear) Urine pH 6.5 (5.0-8.0) Ur Specific Orchard 1.016 (1.001-1.035) Urine Protein Negative (Negative) Urine Glucose (UA) Negative (Negative) Urine Ketones Negative (Negative) Urine Blood Negative (Negative) Urine Nitrite Negative (Negative) Urine Bilirubin Negative (Negative) Urine Urobilinogen <2.0 (<2.0) mg/dL Ur Leukocyte Esterase Negative (Negative) Urine Opiates Screen Not Detected (NotDetected) Ur Oxycodone Screen Not Detected (NotDetected) Urine Methadone Screen Not Detected (NotDetected) Ur Propoxyphene Screen Not Detected (NotDetected) Ur Barbiturates Screen Detected H (NotDetected) U Tricyclic Antidepress Not Detected (NotDetected) Ur Phencyclidine Scrn Not Detected (NotDetected) Ur Amphetamines Screen Not Detected (NotDetected) U Methamphetamines Scrn Not Detected (NotDetected) U Benzodiazepines Scrn Not Detected (NotDetected) Urine Cocaine Screen Not Detected (NotDetected) U Marijuana (THC) Screen Not Detected (NotDetected) 07/05/20 Range/Units 23:59 WBC (3.8-10.6) k/uL RBC (4.30-5.90) m/uL Hgb (13.0-17.5) gm/dL Hct (39.0-53.0) % MCV (80.0-100.0) fL MCH (25.0-35.0) pg MCHC (31.0-37.0) g/dL RDW (11.5-15.5) % Plt Count (150-450) k/uL Sodium 140 (137-145) mmol/L Potassium 4.1 (3.5-5.1) mmol/L Chloride 107 (98-107) mmol/L Carbon Dioxide 26 (22-30) mmol/L Anion Gap 7 mmol/L BUN 6 L (9-20) mg/dL Creatinine 0.78 (0.66-1.25) mg/dL Est GFR (CKD-EPI)AfAm >90 (>60 ml/min/1.73 sqM) Est GFR (CKD-EPI)NonAf >90 (>60 ml/min/1.73 sqM) Glucose 98 (74-99) mg/dL Calcium 9.5 (8.4-10.2) mg/dL Total Bilirubin 0.5 (0.2-1.3) mg/dL AST 19 (17-59) U/L ALT 12 (4-49) U/L Alkaline Phosphatase 134 H (38-126) U/L Total Protein 7.5 (6.3-8.2) g/dL Albumin 4.5 (3.5-5.0) g/dL Urine Color Urine Appearance (Clear) Urine pH (5.0-8.0) Ur Specific [place] (1.001-1.035) Urine Protein (Negative) Urine Glucose (UA) (Negative) Urine Ketones (Negative) Urine Blood (Negative) Urine Nitrite (Negative) Urine Bilirubin (Negative) Urine Urobilinogen (<2.0) mg/dL Ur Leukocyte Esterase (Negative) Urine Opiates Screen (NotDetected) Ur Oxycodone Screen (NotDetected) Urine Methadone Screen (NotDetected) Ur Propoxyphene Screen (NotDetected) Ur Barbiturates Screen (NotDetected) U Tricyclic Antidepress (NotDetected) Ur Phencyclidine Scrn (NotDetected) Ur Amphetamines Screen (NotDetected) U Methamphetamines Scrn (NotDetected) U Benzodiazepines Scrn (NotDetected) Urine Cocaine Screen (NotDetected) U Marijuana (THC) Screen (NotDetected) Disposition Is patient prescribed a controlled substance at d/c from ED?: No Time of Disposition: 19:52 <Martin Smith - Last Filed: 07/05/20 19:51> <Hakeem Soto - Last Filed: 07/06/20 07:14> Clinical Impression: Suicidal ideations Disposition: TRANSFER TO PSYCH HOSP/UNIT Condition: Fair Referrals: None,Stated [Primary Care Provider] - 1-2 days
[2020-07-05 15:49] LABS: Amphetamine Screen,Urine Not Detected (NotDetected); Barbiturate Screen,Urine Detected (NotDetected); Benzodiazepines Screen,Urine Not Detected (NotDetected); Cocaine Screen,Urine Not Detected (NotDetected); Methadone Screen, Urine Not Detected (NotDetected); Opiate Screen,Urine Not Detected (NotDetected); Oxycodone Screen, Urine Not Detected (NotDetected); Phencyclidine Screen,Urine Not Detected (NotDetected); Tricyclic Antidepressant,Urine Not Detected (NotDetected); Urn Cannabinoid Scrn Not Detected (NotDetected)
[2020-07-05] MEDS ORDERED: LORazepam 1 MG TAB PO STA (19:50)
[2020-07-05] MEDS ORDERED: IBUPROFEN 600 MG TAB PO STA (19:51)
[2020-07-06 00:08] LABS: HCT 45.1 % (39.0-53.0); HGB 15.1 gm/dL (13.0-17.5); MCH 31.5 pg (25.0-35.0); MCHC 33.5 g/dL (31.0-37.0); Mean Platelet Volume 6.4; Platelet Count 259 k/uL (150-450); RDW 12.3 % (11.5-15.5); WBC 8.6 k/uL (3.8-10.6)
[2020-07-06 00:09] LABS: Appearance,Urine Clear (Clear); Bilirubin,Urine Negative (Negative); Blood,Urine Negative (Negative); Color,Urine Yellow; Glucose,Urine (UA) Negative (Negative); Ketones,Urine Negative (Negative); Leukocyte Esterase,Urine Negative (Negative); Nitrite,Urine Negative (Negative); PH, Urine 6.5 (5.0-8.0); Protein,Urine Negative (Negative); Specific Gravity,Urine 1.016 (1.001-1.035); Urobilinogen,Urine <2.0 mg/dL (<2.0)
[2020-07-06 00:22] LABS: ALT 12 U/L (4-49); AST 19 U/L (17-59); African American GFR (CKD) >90 (>60 ml/min/1.73 sqM); Albumin 4.5 g/dL (3.5-5.0); Alkaline Phosphatase 134 U/L (38-126); Anion Gap 7 mmol/L; Blood Urea Nitrogen 6 mg/dL (9-20); Calcium 9.5 mg/dL (8.4-10.2); Carbon Dioxide 26 mmol/L (22-30); Chloride 107 mmol/L (98-107); Glucose 98 mg/dL (74-99); Non-African American GFR(CKD) >90 (>60 ml/min/1.73 sqM); Potassium 4.1 mmol/L (3.5-5.1); Sodium 140 mmol/L (137-145); Total Bilirubin 0.5 mg/dL (0.2-1.3); Total Protein 7.5 g/dL (6.3-8.2)
[2020-07-06] MEDS: LACOSAMIDE 150 MG TABLET PO SCH ×2 (09:28→20:41)
[2020-07-06] MEDS: lamoTRIgine 100 MG TAB PO SCH ×2 (09:28→20:20)
[2020-07-06] MEDS: carBAMazepine 200 MG TAB PO SCH ×2 (09:28→20:21)
[2020-07-06] MEDS: LITHIUM CARBONATE 300 MG CAP PO SCH ×2 (09:28→20:41)
[2020-07-07] MEDS ORDERED: ACETAMINOPHEN TAB 325 MG TAB PO STA ×2 (01:42→05:33)
[2020-07-07] MEDS ORDERED: ONDANSETRON ODT 4 MG TAB PO STA ×2 (02:30→15:02)
[2020-07-07] MEDS ORDERED: IBUPROFEN 600 MG TAB PO STA ×2 (10:03→17:39)
[2020-07-07] MEDS: carBAMazepine 200 MG TAB PO SCH (10:34)
[2020-07-07] MEDS: lamoTRIgine 100 MG TAB PO SCH (10:34)
[2020-07-07] MEDS: LITHIUM CARBONATE 300 MG CAP PO SCH (10:34)
[2020-07-07] MEDS: LACOSAMIDE 150 MG TABLET PO SCH (12:01)
[2020-07-07 17:01] VITALS: RESP 16
[2020-07-07 18:33] VITALS: BP 101/68; PULSE 78; TEMP 98
== END 2020-07-07 18:32 ==
LOC: EC 15:03
DX: R45.851 Suicidal ideations (principal); R45.850 Homicidal ideations; G40.909 Epilepsy, unspecified, not intractable, without status epilepticus; Z79.899 Other long term (current) drug therapy
CPT/HCPCS: 36415; 80053; 80306; 81003; 82075; 85027; 99285

== ENCOUNTER 2020-08-09 22:22 | Emergency (ER) | payer MEDICARE, OTHER ==
[2020-08-09 22:44] VITALS: PULSE 95; TEMP 99.1
[2020-08-09] MEDS ORDERED: ONDANSETRON 4 MG/2 ML VIAL IVP STA (22:49)
[2020-08-09] MEDS ORDERED: SODIUM CHLORIDE 0.9% 1,000 ML IV ONE (22:49)
--- NOTE | 2020-08-09 22:57 | ED ---
General Adult HPI - General Chief complaint: Nausea/Vomiting/Diarrhea Stated complaint: NVD Time Seen by Provider: 08/09/20 22:28 Source: patient, EMS Mode of arrival: EMS Limitations: no limitations - History of Present Illness Initial comments: this patient is a 30-year-old man who presents to be evaluated after he had a seizure. The patient relates that he does have history of seizure disorder and takes a number of medications day. He had started having some nausea and vomiting a couple days ago, having 3-4 episodes per day, and is concerned that she may did not keep down his medication. The patient denies any injury related to the seizure. Denies any neurologic symptoms. In relation to the nausea and vomiting, he has not noticed any hematemesis or coffee-ground material. No abdominal pain. No blood or tarry stools noted area he has had softer bowel movements than usual. Onset/Timin -: hour(s) Severity scale (1-10): 0 Consistency: now resolved Improves with: none Worsens with: none Associated Symptoms: nausea/vomiting Treatments Prior to Arrival: none - Related Data Home Medications Medication Instructions Recorded Confirmed [place] Carbonate 300 mg PO BID 03/03/18 07/05/20 PHENobarbital 129.6 mg PO HS 10/19/18 07/05/20 carBAMazepine [TEGretol XR] 400 mg PO HS 10/19/18 07/05/20 Lacosamide [Vimpat] 150 mg PO BID 07/17/19 07/05/20 Previous Rx's Medication Instructions Recorded carBAMazepine [TEGretol XR] 200 mg PO Q12H 30 Days tab 04/13/20 lamoTRIgine [LaMICtal] 200 mg PO BID #0 06/28/20 Levothyroxine Sodium [Synthroid] 75 mcg PO DAILY 30 Days tab 06/30/20 Nicotine Polacrilex [Nicorette] 2 mg BUCCAL Q4HR PRN 14 Days gum 06/30/20 Venlafaxine HCl ER [Effexor XR] 300 mg PO DAILY 30 Days cap 06/30/20 Ondansetron Odt [Zofran ODT] 4 mg PO Q8HR PRN #10 tab 08/10/20 Allergies Allergy/AdvReac Type Severity Reaction Status Date / Time No Known Allergies Allergy Verified 08/09/20 22:37 Review of Systems ROS Statement: Those systems with pertinent positive or pertinent negative responses have been documented in the HPI. ROS Other: All systems not noted in ROS Statement are negative. Constitutional: Denies: fever, chills Respiratory: Denies: cough, dyspnea Cardiovascular: Denies: chest pain, palpitations, edema Gastrointestinal: Reports: nausea, vomiting, diarrhea. Denies: abdominal pain, hematemesis, melena, hematochezia Genitourinary: Denies: dysuria, hematuria Musculoskeletal: Denies: back pain Skin: Denies: rash Neurological: Denies: headache, weakness, numbness Past Medical History Past Medical History: GERD/Reflux, Seizure Disorder, Skin Disorder, Thyroid Disorder Additional Past Medical History / Comment(s): has history of epilepsy, hx grand mal seizures since childhood, migraines, acne, History of Any Multi-Drug Resistant Organisms: None Reported, Unobtainable Past Surgical History: Adenoidectomy, Appendectomy, Cholecystectomy, Tonsillectomy Additional Past Surgical History / Comment(s): oral surgery Past Anesthesia/Blood Transfusion Reactions: Previous Problems w/ Anesthesia Additional Past Anesthesia/Blood Transfusion Reaction / Comment(s): SLOW TO WAKE FROM ANESTHESIA" Past Psychological History: Anxiety, Depression Smoking Status: Never smoker Past Alcohol Use History: None Reported Past Drug Use History: None Reported - Past Family History Mother Family Medical History: Cancer Additional Family Medical History / Comment(s): breast cancer General Exam Limitations: no limitations General appearance: alert, in no apparent distress Head exam: Present: atraumatic, normocephalic Eye exam: Present: normal appearance. Absent: scleral icterus, conjunctival injection ENT exam: Present: normal oropharynx Neck exam: Present: normal inspection Respiratory exam: Present: normal lung sounds bilaterally, other (patient is having occasional nonproductive cough during exam). Absent: respiratory distress, wheezes, rales, rhonchi, stridor Cardiovascular Exam: Present: regular rate, normal rhythm, normal heart sounds. Absent: systolic murmur, diastolic murmur, rubs, gallop GI/Abdominal exam: Present: soft. Absent: distended, tenderness, guarding, rebound, rigid, mass Extremities exam: Present: normal inspection, normal capillary refill. Absent: pedal edema, calf tenderness Back exam: Present: normal inspection. Absent: CVA tenderness (R), CVA tenderness (L) Neurological exam: Present: alert Skin exam: Present: warm, dry, intact, normal color. Absent: rash Course Vital Signs 08/09/20 22:37 Temperature 99.1 F Pulse Rate 95 Respiratory 18 Rate Blood Pressure 165/100 O2 Sat by Pulse 97 Oximetry Medical Decision Making - Lab Data Result diagrams: 08/09/20 23:08 08/09/20 23:08 Lab Results 08/09/20 08/09/20 08/09/20 Range/Units 23:08 23:08 23:08 WBC 10.3 (3.8-10.6) k/uL RBC 4.79 (4.30-5.90) m/uL Hgb 14.6 (13.0-17.5) gm/dL Hct 44.1 (39.0-53.0) % MCV 92.1 (80.0-100.0) fL MCH 30.4 (25.0-35.0) pg MCHC 33.0 (31.0-37.0) g/dL RDW 12.9 (11.5-15.5) % Plt Count 321 (150-450) k/uL MPV 6.9 Neutrophils % 44 % Lymphocytes % 36 % Monocytes % 5 % Eosinophils % 13 % Basophils % 1 % Neutrophils # 4.5 (1.3-7.7) k/uL Lymphocytes # 3.7 (1.0-4.8) k/uL Monocytes # 0.5 (0-1.0) k/uL Eosinophils # 1.3 H (0-0.7) k/uL Basophils # 0.1 (0-0.2) k/uL Sodium 138 (137-145) mmol/L Potassium 4.3 (3.5-5.1) mmol/L Chloride 109 H (98-107) mmol/L Carbon Dioxide 21 L (22-30) mmol/L Anion Gap 8 mmol/L BUN 10 (9-20) mg/dL Creatinine 0.77 (0.66-1.25) mg/dL Est GFR (CKD-EPI)AfAm >90 (>60 ml/min/1.73 sqM) Est GFR (CKD-EPI)NonAf >90 (>60 ml/min/1.73 sqM) Glucose 95 (74-99) mg/dL Plasma Lactic Acid [place] (0.7-2.0) mmol/L Calcium 8.9 (8.4-10.2) mg/dL Total Bilirubin 0.3 (0.2-1.3) mg/dL AST 22 (17-59) U/L ALT 9 (4-49) U/L Alkaline Phosphatase 91 (38-126) U/L Total Protein 7.8 (6.3-8.2) g/dL Albumin 4.5 (3.5-5.0) g/dL Urine Color Yellow Urine Appearance Clear (Clear) Urine pH 7.0 (5.0-8.0) Ur Specific [place] 1.014 (1.001-1.035) Urine Protein Negative (Negative) Urine Glucose (UA) Negative (Negative) Urine Ketones Negative (Negative) Urine Blood Negative (Negative) Urine Nitrite Negative (Negative) Urine Bilirubin Negative (Negative) Urine Urobilinogen <2.0 (<2.0) mg/dL Ur Leukocyte Esterase Negative (Negative) Carbamazepine 9.2 ug/mL [place] 1.5 mmol/L Coronavirus (PCR) (Not Detectd) Influenza Type A RNA (Not Detectd) Influenza Type B (PCR) (Not Detectd) 08/09/20 08/09/20 Range/Units 23:08 23:08 WBC (3.8-10.6) k/uL RBC (4.30-5.90) m/uL Hgb (13.0-17.5) gm/dL Hct (39.0-53.0) % MCV (80.0-100.0) fL MCH (25.0-35.0) pg MCHC (31.0-37.0) g/dL RDW (11.5-15.5) % Plt Count (150-450) k/uL MPV Neutrophils % % Lymphocytes % % Monocytes % % Eosinophils % % Basophils % % Neutrophils # (1.3-7.7) k/uL Lymphocytes # (1.0-4.8) k/uL Monocytes # (0-1.0) k/uL Eosinophils # (0-0.7) k/uL Basophils # (0-0.2) k/uL Sodium (137-145) mmol/L Potassium (3.5-5.1) mmol/L Chloride (98-107) mmol/L Carbon Dioxide (22-30) mmol/L Anion Gap mmol/L BUN (9-20) mg/dL Creatinine (0.66-1.25) mg/dL Est GFR (CKD-EPI)AfAm (>60 ml/min/1.73 sqM) Est GFR (CKD-EPI)NonAf (>60 ml/min/1.73 sqM) Glucose (74-99) mg/dL Plasma Lactic Acid [place] 1.3 (0.7-2.0) mmol/L Calcium (8.4-10.2) mg/dL Total Bilirubin (0.2-1.3) mg/dL AST (17-59) U/L ALT (4-49) U/L Alkaline Phosphatase (38-126) U/L Total Protein (6.3-8.2) g/dL Albumin (3.5-5.0) g/dL Urine Color Urine Appearance (Clear) Urine pH (5.0-8.0) Ur Specific [place] (1.001-1.035) Urine Protein (Negative) Urine Glucose (UA) (Negative) Urine Ketones (Negative) Urine Blood (Negative) Urine Nitrite (Negative) Urine Bilirubin (Negative) Urine Urobilinogen (<2.0) mg/dL Ur Leukocyte Esterase (Negative) Carbamazepine ug/mL [place] mmol/L Coronavirus (PCR) Not Detected (Not Detectd) Influenza Type A RNA Not Detected (Not Detectd) Influenza Type B (PCR) Not Detected (Not Detectd) Disposition Clinical Impression: Seizure, Vomiting Disposition: HOME SELF-CARE Condition: Good Instructions (If sedation given, give patient instructions): Acute Nausea and Vomiting (ED), Recurrent Seizures in Adults (ED) Prescriptions: Ondansetron Odt [Zofran ODT] 4 mg PO Q8HR PRN #10 tab PRN Reason: Nausea Is patient prescribed a controlled substance at d/c from ED?: No Referrals: None,Stated [Primary Care Provider] - 1-2 days
[2020-08-09 23:31] LABS: Basophils # (A) 0.1 k/uL (0-0.2); Basophils % (A) 1 %; Eosinophils # (A) 1.3 k/uL (0-0.7); Eosinophils % (A) 13 %; HCT 44.1 % (39.0-53.0); HGB 14.6 gm/dL (13.0-17.5); Lymphocytes # (A) 3.7 k/uL (1.0-4.8); Lymphocytes % (A) 36 %; MCH 30.4 pg (25.0-35.0); MCV 92.1 fL (80.0-100.0); Mean Platelet Volume 6.9; Monocytes # (A) 0.5 k/uL (0-1.0); Monocytes % (A) 5 %; Neutrophils # (A) 4.5 k/uL (1.3-7.7); Neutrophils % (A) 44 %; Platelet Count 321 k/uL (150-450); RBC 4.79 m/uL (4.30-5.90); RDW 12.9 % (11.5-15.5); WBC 10.3 k/uL (3.8-10.6)
[2020-08-09 23:49] LABS: Appearance,Urine Clear (Clear); Bilirubin,Urine Negative (Negative); Blood,Urine Negative (Negative); Color,Urine Yellow; Glucose,Urine (UA) Negative (Negative); Ketones,Urine Negative (Negative); Leukocyte Esterase,Urine Negative (Negative); Nitrite,Urine Negative (Negative); Protein,Urine Negative (Negative); Specific Gravity,Urine 1.014 (1.001-1.035); Urobilinogen,Urine <2.0 mg/dL (<2.0)
[2020-08-09 23:51] LABS: ALT 9 U/L (4-49); AST 22 U/L (17-59); African American GFR (CKD) >90 (>60 ml/min/1.73 sqM); Albumin 4.5 g/dL (3.5-5.0); Alkaline Phosphatase 91 U/L (38-126); Anion Gap 8 mmol/L; Blood Urea Nitrogen 10 mg/dL (9-20); Calcium 8.9 mg/dL (8.4-10.2); Carbamazepine (Tegretol) 9.2 ug/mL; Carbon Dioxide 21 mmol/L (22-30); Chloride 109 mmol/L (98-107); Glucose 95 mg/dL (74-99); Lithium 1.5 mmol/L; Non-African American GFR(CKD) >90 (>60 ml/min/1.73 sqM); Sodium 138 mmol/L (137-145); Total Bilirubin 0.3 mg/dL (0.2-1.3); Total Protein 7.8 g/dL (6.3-8.2)
[2020-08-09 23:52] LABS: SARS-CoV-2 RNA Rapid Abbott Not Detected (Not Detectd)
[2020-08-10 00:04] LABS: Potassium 4.3 mmol/L (3.5-5.1)
[2020-08-10 01:50] VITALS: BP 118/72; RESP 16
== END 2020-08-10 01:30 | disposition home or self-care (01) ==
LOC: EC 22:22
DX: G40.409 Other generalized epilepsy and epileptic syndromes, not intractable, without status epilepticus (principal); R11.10 Vomiting, unspecified; Z79.899 Other long term (current) drug therapy
CPT/HCPCS: 36415; 80053; 80156; 80175; 80178; 81003; 83605; 85025; 87502; 87635; 99284

== ENCOUNTER 2020-10-04 11:46 | Emergency (ER) | payer MEDICARE, OTHER ==
[2020-10-04 12:02] VITALS: TEMP 99
--- NOTE | 2020-10-04 12:20 | ED ---
Altered Mental Status HPI - General Chief Complaint: Altered Mental Status Stated Complaint: Syncope Time Seen by Provider: 10/04/20 12:11 Source: patient, EMS Mode of arrival: EMS Limitations: altered mental status - History of Present Illness Initial Comments: 30-year-old male past history of epilepsy presents emergency department for change in mental status. Patient was at a outpatient appointment when they said he went unresponsive. no described seizure activity. Patient states that every day after taking his seizure medication he does feel out of it he states his last or 2 hours but he usually able to sleep it off he states he did not feel h is episode today was really out of the normal he was told to come to the emergency department. pt at [facility] per EMS. Patient states that his only complaint is that he has a cough for 2 months in the gurney now he states he's been tested for Covid and has been told to take cough syrup but this does not seem to help. Patient denies headaches vision changes nausea vomiting falls head trauma he denies any uncontrolled seizure activity he denies chest pain shortness of breath and leg swelling hemoptysis. pt is [facility] on arrival, he knows exact date, name/birthday as well as place stating he is at "[facility] Patient denies additional concerns, pt is known to this facility and is at his baseline he does not appear altered. Denies weakness, speech changes, sensation deficits, vision loss. VS within acceptable limits. - Related Data Home Medications Medication Instructions Recorded Confirmed [place] Carbonate 300 mg PO BID 03/03/18 07/05/20 PHENobarbital 129.6 mg PO HS 10/19/18 07/05/20 carBAMazepine [TEGretol XR] 400 mg PO HS 10/19/18 07/05/20 Lacosamide [Vimpat] 150 mg PO BID 07/17/19 07/05/20 Previous Rx's Medication Instructions Recorded carBAMazepine [TEGretol XR] 200 mg PO Q12H 30 Days tab 04/13/20 lamoTRIgine [LaMICtal] 200 mg PO BID #0 06/28/20 Levothyroxine Sodium [Synthroid] 75 mcg PO DAILY 30 Days tab 06/30/20 Nicotine Polacrilex [Nicorette] 2 mg BUCCAL Q4HR PRN 14 Days gum 06/30/20 Venlafaxine HCl ER [Effexor XR] 300 mg PO DAILY 30 Days cap 06/30/20 Ondansetron Odt [Zofran ODT] 4 mg PO Q8HR PRN #10 tab 08/10/20 Allergies Allergy/AdvReac Type Severity Reaction Status Date / Time No Known Allergies Allergy Verified 10/04/20 12:01 Review of Systems ROS Statement: Those systems with pertinent positive or pertinent negative responses have been documented in the HPI. ROS Other: All systems not noted in ROS Statement are negative. Past Medical History Past Medical History: GERD/Reflux, Seizure Disorder, Skin Disorder, Thyroid Disorder Additional Past Medical History / Comment(s): has history of epilepsy, hx grand mal seizures since childhood, migraines, acne, History of Any Multi-Drug Resistant Organisms: None Reported, Unobtainable Past Surgical History: Adenoidectomy, Appendectomy, Cholecystectomy, Tonsillectomy Additional Past Surgical History / Comment(s): oral surgery Past Anesthesia/Blood Transfusion Reactions: Previous Problems w/ Anesthesia Additional Past Anesthesia/Blood Transfusion Reaction / Comment(s): SLOW TO WAKE FROM ANESTHESIA" Past Psychological History: Anxiety, Depression Smoking Status: Never smoker Past Alcohol Use History: None Reported Past Drug Use History: None Reported - Past Family History Mother Family Medical History: Cancer Additional Family Medical History / Comment(s): breast cancer General Exam - General Exam Comments Initial Comments: General: The patient is awake and alert, in no distress Eye: +3 mm pupils are equal, round and reactive to light, extra-ocular movements are intact. No nystagmus. There is normal conjunctiva bilaterally. No signs of icterus. Ears, nose, mouth and throat: There are moist mucous membranes and no oral lesions. Neck: The neck is supple, there is no tenderness or JVD. Cardiovascular: There is a regular rate and rhythm. No murmur, rub or gallop is appreciated. Respiratory: Lungs are clear to auscultation, respirations are non-labored, breath sounds are equal. No wheezes, stridor, rales, or rhonchi. Gastrointestinal: Soft, non-distended, non-tender abdomen without masses or organomegaly noted. There is no rebound or guarding present. Musculoskeletal: Normal ROM, no tenderness. Strength 5/5. Sensation intact. Radial pulses equal bilaterally 2+. Neurological: A&O x 3. CN II-XII intact, memory intact to immediately, intermediate and residential recall. Able to follow simple verbal. Able to name a common object (pen). High quality, labial (pa) and lingual (la) speech. Low quality posterior pharynx/larynx (ga) voice sounds. Able to express general knowledge (days in a week). No hemineglect or inattention noted. Finger agnosia (-) and spatially oriented. Light touch sensation present over the face, chest, abdomen, back, UE bilaterally, and LE bilaterally. Able to localize point during point localization b/l and extinction. No visible bulk atrophy, hypertrophy, fasciculations, or myoclonus of the UE or LE b/l. Full PROM in UE and LE b/l. Bilateral muscle strength 5/5 for the following muscles: deltoid, biceps, triceps, brachioradialis, wrist extensors/flexor, hip flexor, hip abductors/adductors, hamstrings, quadriceps, feet dorsiflexors/plantar flexors. Finger to nose, finger to the examiners finger, and heel to clement coordinated and accurate b/l. Coordinated and even demonstration of hand flip, finger to thumb, and toe tap b/l. Gait is coordinated and even in stride.. (-) Romberg. (- ) pronator drift. No nuchal rigidity. Skin: Skin is warm and dry and no rashes or lesions are noted. Psychiatric: Cooperative, appropriate mood & affect, normal judgment. Limitations: altered mental status Course Vital Signs 10/04/20 10/04/20 10/04/20 11:56 12:00 13:00 Temperature 99 F Pulse Rate 75 81 82 Respiratory 15 16 17 Rate Blood Pressure 142/94 142/94 138/93 O2 Sat by Pulse 98 98 97 Oximetry 10/04/20 13:46 Temperature 99 F Pulse Rate Respiratory Rate Blood Pressure O2 Sat by Pulse Oximetry Medical Decision Making - Medical Decision Making Patient at baseline on arrival alert and oriented 3. Patient is no focal neurological deficits. He states this happens every day that he is "out of it after his seizure medications. CT brain (-). Pt remains at baseline throughout visit. labs stable. EKG no acute changes .discussed case with Dr. Clark who is agreeable to care plan and discharge. - Lab Data Result diagrams: 10/04/20 12:23 01/06/21 12:22 Lab Results 10/04/20 10/04/20 10/04/20 Range/Units 12:22 12:22 12:22 WBC (3.8-10.6) k/uL RBC (4.30-5.90) m/uL Hgb (13.0-17.5) gm/dL Hct (39.0-53.0) % MCV (80.0-100.0) fL MCH (25.0-35.0) pg MCHC (31.0-37.0) g/dL RDW (11.5-15.5) % Plt Count (150-450) k/uL MPV Neutrophils % % Lymphocytes % % Monocytes % % Eosinophils % % Basophils % % Neutrophils # (1.3-7.7) k/uL Lymphocytes # (1.0-4.8) k/uL Monocytes # (0-1.0) k/uL Eosinophils # (0-0.7) k/uL Basophils # (0-0.2) k/uL PT 10.9 (9.0-12.0) sec INR 1.0 (<1.2) APTT 20.1 L (22.0-30.0) sec Sodium 139 (137-145) mmol/L Potassium 4.4 (3.5-5.1) mmol/L Chloride 109 H (98-107) mmol/L Carbon Dioxide 24 (22-30) mmol/L Anion Gap 6 mmol/L BUN 8 L (9-20) mg/dL Creatinine 0.77 (0.66-1.25) mg/dL Est GFR (CKD-EPI)AfAm >90 (>60 ml/min/1.73 sqM) Est GFR (CKD-EPI)NonAf >90 (>60 ml/min/1.73 sqM) Glucose 95 (74-99) mg/dL Calcium 9.5 (8.4-10.2) mg/dL Total Bilirubin 0.6 (0.2-1.3) mg/dL AST 23 (17-59) U/L ALT 13 (4-49) U/L Alkaline Phosphatase 98 (38-126) U/L Ammonia (<30) umol/L Troponin I <0.012 (0.000-0.034) ng/mL Total Protein 7.6 (6.3-8.2) g/dL Albumin 4.5 (3.5-5.0) g/dL Urine Color Urine Appearance (Clear) Urine pH (5.0-8.0) Ur Specific [place] (1.001-1.035) Urine Protein (Negative) Urine Glucose (UA) (Negative) Urine Ketones (Negative) Urine Blood (Negative) Urine Nitrite (Negative) Urine Bilirubin (Negative) Urine Urobilinogen (<2.0) mg/dL Ur Leukocyte Esterase (Negative) Urine Opiates Screen (NotDetected) Ur Oxycodone Screen (NotDetected) Urine Methadone Screen (NotDetected) Ur Propoxyphene Screen (NotDetected) Ur Barbiturates Screen (NotDetected) U Tricyclic Antidepress (NotDetected) Ur Phencyclidine Scrn (NotDetected) Ur Amphetamines Screen (NotDetected) U Methamphetamines Scrn (NotDetected) U Benzodiazepines Scrn (NotDetected) Urine Cocaine Screen (NotDetected) U Marijuana (THC) Screen (NotDetected) Serum Alcohol <10 mg/dL 10/04/20 10/04/20 10/04/20 Range/Units 12:23 12:23 12:34 WBC 7.1 (3.8-10.6) k/uL RBC 4.69 (4.30-5.90) m/uL Hgb 15.0 (13.0-17.5) gm/dL Hct 43.9 (39.0-53.0) % MCV 93.5 (80.0-100.0) fL MCH 32.1 (25.0-35.0) pg MCHC 34.3 (31.0-37.0) g/dL RDW 12.3 (11.5-15.5) % Plt Count 244 (150-450) k/uL MPV 6.6 Neutrophils % 50 % Lymphocytes % 30 % Monocytes % 5 % Eosinophils % 13 % Basophils % 1 % Neutrophils # 3.6 (1.3-7.7) k/uL Lymphocytes # 2.1 (1.0-4.8) k/uL Monocytes # 0.3 (0-1.0) k/uL Eosinophils # 0.9 H (0-0.7) k/uL Basophils # 0.1 (0-0.2) k/uL PT (9.0-12.0) sec INR (<1.2) APTT (22.0-30.0) sec Sodium (137-145) mmol/L Potassium (3.5-5.1) mmol/L Chloride (98-107) mmol/L Carbon Dioxide (22-30) mmol/L Anion Gap mmol/L BUN (9-20) mg/dL Creatinine (0.66-1.25) mg/dL Est GFR (CKD-EPI)AfAm (>60 ml/min/1.73 sqM) Est GFR (CKD-EPI)NonAf (>60 ml/min/1.73 sqM) Glucose (74-99) mg/dL Calcium (8.4-10.2) mg/dL Total Bilirubin (0.2-1.3) mg/dL AST (17-59) U/L ALT (4-49) U/L Alkaline Phosphatase (38-126) U/L Ammonia 32 H (<30) umol/L Troponin I (0.000-0.034) ng/mL Total Protein (6.3-8.2) g/dL Albumin (3.5-5.0) g/dL Urine Color Yellow Urine Appearance Clear (Clear) Urine pH 7.0 (5.0-8.0) Ur Specific [place] 1.019 (1.001-1.035) Urine Protein Trace H (Negative) Urine Glucose (UA) Negative (Negative) Urine Ketones Negative (Negative) Urine Blood Negative (Negative) Urine Nitrite Negative (Negative) Urine Bilirubin Negative (Negative) Urine Urobilinogen <2.0 (<2.0) mg/dL Ur Leukocyte Esterase Negative (Negative) Urine Opiates Screen Not Detected (NotDetected) Ur Oxycodone Screen Not Detected (NotDetected) Urine Methadone Screen Not Detected (NotDetected) Ur Propoxyphene Screen Not Detected (NotDetected) Ur Barbiturates Screen Detected H (NotDetected) U Tricyclic Antidepress Not Detected (NotDetected) Ur Phencyclidine Scrn Not Detected (NotDetected) Ur Amphetamines Screen Not Detected (NotDetected) U Methamphetamines Scrn Not Detected (NotDetected) U Benzodiazepines Scrn Not Detected (NotDetected) Urine Cocaine Screen Not Detected (NotDetected) U Marijuana (THC) Screen Not Detected (NotDetected) Serum Alcohol mg/dL - EKG Data EKG Comments: Ventricular rate 73 bpm, IA interval 178 ms, QRS ratio 102 ms, QT/QTC 380/418. This is normal sinus there is no delta wave there is no signs of Brugada synd tammi. No ST elevation or depression. EKG was reviewed by attending provider Disposition Clinical Impression: Episodes of staring, History of epilepsy, Cough Disposition: HOME SELF-CARE Condition: Good Instructions (If sedation given, give patient instructions): Chronic Cough (ED) Additional Instructions: Please use medication as discussed. Please follow-up with family doctor in the next 2 days. Please return to emergency room if the symptoms increase or worsen or for any other concerns. Is patient prescribed a controlled substance at d/c from ED?: No Referrals: None,Stated [Primary Care Provider] - 1-2 days Time of Disposition: 13:14
[2020-10-04 12:41] LABS: Basophils # (A) 0.1 k/uL (0-0.2); Basophils % (A) 1 %; Eosinophils # (A) 0.9 k/uL (0-0.7); Eosinophils % (A) 13 %; HCT 43.9 % (39.0-53.0); Lymphocytes # (A) 2.1 k/uL (1.0-4.8); Lymphocytes % (A) 30 %; MCH 32.1 pg (25.0-35.0); MCHC 34.3 g/dL (31.0-37.0); MCV 93.5 fL (80.0-100.0); Mean Platelet Volume 6.6; Monocytes # (A) 0.3 k/uL (0-1.0); Monocytes % (A) 5 %; Neutrophils # (A) 3.6 k/uL (1.3-7.7); Neutrophils % (A) 50 %; Platelet Count 244 k/uL (150-450); RBC 4.69 m/uL (4.30-5.90); RDW 12.3 % (11.5-15.5); WBC 7.1 k/uL (3.8-10.6)
[2020-10-04 12:55] LABS: Appearance,Urine Clear (Clear); Bilirubin,Urine Negative (Negative); Blood,Urine Negative (Negative); Color,Urine Yellow; Glucose,Urine (UA) Negative (Negative); Ketones,Urine Negative (Negative); Leukocyte Esterase,Urine Negative (Negative); Nitrite,Urine Negative (Negative); Protein,Urine Trace (Negative); Specific Gravity,Urine 1.019 (1.001-1.035); Urobilinogen,Urine <2.0 mg/dL (<2.0)
--- NOTE | 2020-10-04 12:59 | CT ---
EXAMINATION TYPE: CT brain wo con DATE OF EXAM: 10/04/2020 COMPARISON: 06/28/2020 HISTORY: Altered mental status CT DLP: 1099.4 mGycm. Automated Exposure Control for Dose Reduction was Utilized. TECHNIQUE: CT scan of the head is performed without contrast. FINDINGS: There is no acute intracranial hemorrhage, mass effect, or midline shift identified. The ventricles and sulci are within normal limits in size. The globes are intact and the visualized sin uses are clear. Artifact limits assessment of the right frontal lobe. Cerebellar tonsils low-lying in position at the level of foramen magnum. Sella turcica has a normal appearance. IMPRESSION: 1. No acute intracranial hemorrhage, mass effect, or midline shift is seen. 2. Low-lying cerebellar tonsils, MRI recommended.
[2020-10-04 13:01] LABS: Partial Thromboplastin Time 20.1 sec (22.0-30.0); Prothrombin Time 10.9 sec (9.0-12.0)
--- NOTE | 2020-10-04 13:01 | XR ---
EXAMINATION TYPE: XR chest 2V DATE OF EXAM: 10/04/2020 COMPARISON: Chest x-ray November 29, 2018. HISTORY: Syncope and weakness. TECHNIQUE: Frontal and lateral views of the chest are obtained. FINDINGS: Low lung volumes are redemonstrated. There is no suspicious new focal air space opacity, p leural effusion, or pneumothorax seen. The cardiac silhouette size is stable and mildly enlarged. The osseous structures are intact. IMPRESSION: Low lung volumes and mild cardiomegaly without acute pulmonary process.
[2020-10-04 13:04] LABS: ALT 13 U/L (4-49); AST 23 U/L (17-59); African American GFR (CKD) >90 (>60 ml/min/1.73 sqM); Albumin 4.5 g/dL (3.5-5.0); Alcohol <10 mg/dL; Alkaline Phosphatase 98 U/L (38-126); Anion Gap 6 mmol/L; Blood Urea Nitrogen 8 mg/dL (9-20); Calcium 9.5 mg/dL (8.4-10.2); Carbon Dioxide 24 mmol/L (22-30); Chloride 109 mmol/L (98-107); Glucose 95 mg/dL (74-99); Non-African American GFR(CKD) >90 (>60 ml/min/1.73 sqM); Potassium 4.4 mmol/L (3.5-5.1); Sodium 139 mmol/L (137-145); Total Bilirubin 0.6 mg/dL (0.2-1.3); Total Protein 7.6 g/dL (6.3-8.2)
[2020-10-04 13:07] VITALS: BP 138/93; PULSE 82; RESP 17
[2020-10-04 13:13] LABS: Amphetamine Screen,Urine Not Detected (NotDetected); Barbiturate Screen,Urine Detected (NotDetected); Benzodiazepines Screen,Urine Not Detected (NotDetected); Cocaine Screen,Urine Not Detected (NotDetected); Methadone Screen, Urine Not Detected (NotDetected); Opiate Screen,Urine Not Detected (NotDetected); Oxycodone Screen, Urine Not Detected (NotDetected); Phencyclidine Screen,Urine Not Detected (NotDetected); Tricyclic Antidepressant,Urine Not Detected (NotDetected); Urn Cannabinoid Scrn Not Detected (NotDetected)
== END 2020-10-04 13:46 | disposition home or self-care (01) ==
LOC: EC 11:46
DX: R05 Cough (principal); F32.9 Major depressive disorder, single episode, unspecified; G40.909 Epilepsy, unspecified, not intractable, without status epilepticus; Z79.899 Other long term (current) drug therapy
CPT/HCPCS: 36415; 93005; 80053; 82140; 84484; 85025; 85610; 85730; 81003; 80306; 71046; 70450; 99285; G0480; 80320

== ENCOUNTER → 2020-10-05 | Outpatient (CLI) | payer MEDICARE, OTHER ==
[2020-10-05 20:40] LABS: Carbamazepine (Tegretol) 6.4 ug/mL (4.0-12.0)
[2020-10-05 21:00] LABS: Folate, Serum 6.5 ng/mL
[2020-10-05 21:06] LABS: Lithium 0.9 mmol/L (0.5-1.2); T4, Free (Free Thyroxine) 0.8 ng/dL (0.80-1.80)
== END | disposition home or self-care (01) ==
LOC: LABWHC1 11:25
PROVIDERS: ATTEND Physician Assistant
DX: F31.4 Bipolar disorder, current episode depressed, severe, without psychotic features (principal)
CPT/HCPCS: 36415; 80156; 80178; 82306; 82607; 82746; 84439; 84443; 84481

== ENCOUNTER 2020-10-10 11:04 | Emergency (ER) | payer MEDICARE, OTHER ==
[2020-10-10] MEDS ORDERED: SODIUM CHLORIDE 0.9% 500 ML 500 ML IV ONE (11:28)
[2020-10-10] MEDS ORDERED: ONDANSETRON 4 MG/2 ML VIAL IVP STA (11:28)
[2020-10-10] MEDS ORDERED: SODIUM CHLORIDE 0.9% 1,000 ML IV SCH (11:30)
[2020-10-10 12:50] LABS: Basophils # (A) 0.1 k/uL (0-0.2); Basophils % (A) 1 %; Eosinophils # (A) 0.3 k/uL (0-0.7); Eosinophils % (A) 2 %; HCT 47.7 % (39.0-53.0); HGB 15.9 gm/dL (13.0-17.5); Lymphocytes # (A) 1.1 k/uL (1.0-4.8); Lymphocytes % (A) 7 %; MCH 31.2 pg (25.0-35.0); MCHC 33.3 g/dL (31.0-37.0); MCV 93.8 fL (80.0-100.0); Mean Platelet Volume 6.6; Monocytes # (A) 0.5 k/uL (0-1.0); Monocytes % (A) 4 %; Neutrophils # (A) 12.8 k/uL (1.3-7.7); Neutrophils % (A) 86 %; Platelet Count 243 k/uL (150-450); RBC 5.08 m/uL (4.30-5.90); RDW 12.1 % (11.5-15.5); WBC 14.8 k/uL (3.8-10.6)
[2020-10-10 13:01] LABS: ALT 15 U/L (4-49); AST 19 U/L (17-59); African American GFR (CKD) >90 (>60 ml/min/1.73 sqM); Albumin 4.9 g/dL (3.5-5.0); Alcohol <10 mg/dL; Alkaline Phosphatase 118 U/L (38-126); Anion Gap 9 mmol/L; Blood Urea Nitrogen 12 mg/dL (9-20); Calcium 9.9 mg/dL (8.4-10.2); Carbon Dioxide 25 mmol/L (22-30); Chloride 106 mmol/L (98-107); Glucose 112 mg/dL (74-99); Lipase 45 U/L (23-300); Non-African American GFR(CKD) >90 (>60 ml/min/1.73 sqM); Potassium 4.4 mmol/L (3.5-5.1); Sodium 140 mmol/L (137-145); Total Bilirubin 0.3 mg/dL (0.2-1.3); Total Protein 8.3 g/dL (6.3-8.2)
--- NOTE | 2020-10-10 13:46 | ED ---
Nausea/Vomiting/Diarrhea HPI - General Chief complaint: Nausea/Vomiting/Diarrhea Stated complaint: vomiting Time Seen by Provider: 10/10/20 11:09 Source: patient Mode of arrival: ambulatory Limitations: no limitations - History of Present Illness Initial comments: 30-year-old male history of seizure disorder presenting today for chief complaint of vomiting. Patient states he woke at 5:30 could not sleep he states he laid on the couch and had episode of vomiting a few hours later he states he had a appointment with the psychiatrist but because his vomiting didn't want to go sit came to the emergency department evaluation he denies abdominal pain he adache vision changes he denies seizure head injury chest pain shortness of breath. He states he ate pizza dip and that could have caused this. denies diarrhea. patient has no additional complaints. he appears well nontoxic on arrival. - Related Data Home Medications Medication Instructions Recorded Confirmed [place] Carbonate 450 mg PO BID 03/03/18 10/10/20 PHENobarbital 129.6 mg PO HS 10/19/18 10/10/20 carBAMazepine [TEGretol XR] 400 mg PO HS 10/19/18 10/10/20 Lacosamide [Vimpat] 150 mg PO BID 07/17/19 10/10/20 Ibuprofen [Motrin] 800 mg PO Q8H PRN 10/10/20 10/10/20 LORazepam [Ativan] 1 mg PO BID 10/10/20 10/10/20 Xcopri Titration Pack See Taper PO HS 10/10/20 10/10/20 carBAMazepine [TEGretol] 200 mg PO Q12H 10/10/20 10/10/20 Previous Rx's Medication Instructions Recorded lamoTRIgine [LaMICtal] 200 mg PO BID #0 06/28/20 Allergies Allergy/AdvReac Type Severity Reaction Status Date / Time No Known Allergies Allergy Verified 10/10/20 12:26 Review of Systems ROS Statement: Those systems with pertinent positive or pertinent negative responses have been documented in the HPI. ROS Other: All systems not noted in ROS Statement are negative. Past Medical History Past Medical History: GERD/Reflux, Seizure Disorder, Skin Disorder, Thyroid Disorder Additional Past Medical History / Comment(s): has history of epilepsy, hx grand mal seizures since childhood, migraines, acne, History of Any Multi-Drug Resistant Organisms: None Reported, Unobtainable Past Surgical History: Adenoidectomy, Appendectomy, Cholecystectomy, Tonsillectomy Additional Past Surgical History / Comment(s): oral surgery Past Anesthesia/Blood Transfusion Reactions: Previous Problems w/ Anesthesia Additional Past Anesthesia/Blood Transfusion Reaction / Comment(s): SLOW TO WAKE FROM ANESTHESIA" Past Psychological History: Anxiety, Depression Smoking Status: Never smoker Past Alcohol Use History: None Reported Past Drug Use History: None Reported - Past Family History Mother Family Medical History: Cancer Additional Family Medical History / Comment(s): breast cancer General Exam - General Exam Comments Initial Comments: General: The patient is awake and alert, in no distress, and does not appear acutely ill. Eye: +3 mm pupils are equal, round and reactive to light, extra-ocular movements are intact. No nystagmus. There is normal conjunctiva bilaterally. No signs of icterus. Ears, nose, mouth and throat: There are moist mucous membranes and no oral lesions. Neck: The neck is supple, there is no tenderness or JVD. Cardiovascular: There is a regular rate and rhythm. No murmur, rub or gallop is appreciated. Respiratory: Lungs are clear to auscultation, respirations are non-labored, breath sounds are equal. No wheezes, stridor, rales, or rhonchi. Gastrointestinal: [oft, non-distended, non-tender abdomen without masses or organomegaly noted. There is no rebound or guarding present. Musculoskeletal: Normal ROM, no tenderness. Strength 5/5. Sensation intact. Pulses equal bilaterally 2+. Neurological: A&O x 3. CN II-XII intact, There are no obvious motor or sensory deficits. Coordination appears grossly intact. Speech is normal. Skin: Skin is warm and dry and no rashes or lesions are noted. Psychiatric: Cooperative, appropriate mood & affect, normal judgment. Limitations: no limitations Course Vital Signs 10/10/20 10/10/20 11:05 13:55 Temperature 97.6 F 97.9 F Pulse Rate 86 81 Respiratory 18 16 Rate Blood Pressure 114/79 121/63 O2 Sat by Pulse 100 97 Oximetry Medical Decision Making - Medical Decision Making Nausea/vomiting controlled. no focal deficits. abdominal exam no pain. pt labs mild white count. otherwise no critical findings. pt hydrated with IVF. pt requesting discharege. pt dsicharged appearing well. - Lab Data Result diagrams: 10/10/20 12:26 10/10/20 12:26 Lab Results 10/10/20 10/10/20 Range/Units 12:26 12:26 WBC 14.8 H (3.8-10.6) k/uL RBC 5.08 (4.30-5.90) m/uL Hgb 15.9 (13.0-17.5) gm/dL Hct 47.7 (39.0-53.0) % MCV 93.8 (80.0-100.0) fL MCH 31.2 (25.0-35.0) pg MCHC 33.3 (31.0-37.0) g/dL RDW 12.1 (11.5-15.5) % Plt Count 243 (150-450) k/uL MPV 6.6 Neutrophils % 86 % Lymphocytes % 7 % Monocytes % 4 % Eosinophils % 2 % Basophils % 1 % Neutrophils # 12.8 H (1.3-7.7) k/uL Lymphocytes # 1.1 (1.0-4.8) k/uL Monocytes # 0.5 (0-1.0) k/uL Eosinophils # 0.3 (0-0.7) k/uL Basophils # 0.1 (0-0.2) k/uL Sodium 140 (137-145) mmol/L Potassium 4.4 (3.5-5.1) mmol/L Chloride 106 (98-107) mmol/L Carbon Dioxide 25 (22-30) mmol/L Anion Gap 9 mmol/L BUN 12 (9-20) mg/dL Creatinine 0.86 (0.66-1.25) mg/dL Est GFR (CKD-EPI)AfAm >90 (>60 ml/min/1.73 sqM) Est GFR (CKD-EPI)NonAf >90 (>60 ml/min/1.73 sqM) Glucose 112 H (74-99) mg/dL Calcium 9.9 (8.4-10.2) mg/dL Total Bilirubin 0.3 (0.2-1.3) mg/dL AST 19 (17-59) U/L ALT 15 (4-49) U/L Alkaline Phosphatase 118 (38-126) U/L Total Protein 8.3 H (6.3-8.2) g/dL Albumin 4.9 (3.5-5.0) g/dL Lipase 45 (23-300) U/L Serum Alcohol <10 mg/dL Disposition Clinical Impression: Vomiting Disposition: HOME SELF-CARE Condition: Good Instructions (If sedation given, give patient instructions): Acute Nausea and Vomiting (ED) Additional Instructions: Please use medication as discussed. Please follow-up with family doctor in the next 2 days.. Please return to emergency room if the symptoms increase or worsen or for any other concerns. Is patient prescribed a controlled substance at d/c from ED?: No Referrals: None,Stated [Primary Care Provider] - 1-2 days Time of Disposition: 13:46
[2020-10-10 13:58] VITALS: BP 121/63; PULSE 81; RESP 16; TEMP 97.9
== END 2020-10-10 13:55 | disposition home or self-care (01) ==
LOC: EC 11:04
DX: R11.10 Vomiting, unspecified (principal); F41.9 Anxiety disorder, unspecified; F32.9 Major depressive disorder, single episode, unspecified; G40.909 Epilepsy, unspecified, not intractable, without status epilepticus; Z90.89 Acquired absence of other organs; Z90.49 Acquired absence of other specified parts of digestive tract
CPT/HCPCS: 80053; 83690; 85025; 99283; 96374; 96361 ×2; G0480; J2405; 80320

== ENCOUNTER 2020-10-11 01:06 | Emergency (ER) | payer MEDICARE, OTHER ==
[2020-10-11] MEDS ORDERED: diphenhydrAMINE 50 MG/ML 1 ML VIAL IVP STA (01:12)
[2020-10-11] MEDS ORDERED: METOCLOPRAMIDE 5 MG/ML 2 ML VIAL IVP STA (01:12)
[2020-10-11] MEDS ORDERED: SODIUM CHLORIDE 0.9% 1,000 ML IV STA (01:12)
--- NOTE | 2020-10-11 01:12 | ED ---
Recheck HPI - General Stated Complaint: NVD Time Seen by Provider: 10/11/20 01:08 Source: RN notes reviewed, old records reviewed Limitations: no limitations - History of Present Illness Initial Comments: This is a 30-year-old male to this ER for evaluation. Patient will this facility, patient was here earlier in the day for nausea and vomiting. Patient presents today for continued symptoms of the same. Patient has no other complaints no new fevers, no diarrhea. No abdominal pain. No travel history no sick contacts no change in medications denies drug or alcohol abuse MD Complaint: other (recurrent nausea vomiting) -: hour(s) Returns Today for: other (A she having worse nausea vomiting and earlier) Symptoms Since Prior Visit: no new symptoms (Same symptoms have been persistent) Context: other (Patient states otherwise symptoms resolved after initial DF visit they have returned) Associated Symptoms: nausea Treatments Prior to Arrival: other medications, Given Pain Meds on - Related Data Home Medications Medication Instructions Recorded Confirmed [place] Carbonate 450 mg PO BID 03/03/18 10/10/20 PHENobarbital 129.6 mg PO HS 10/19/18 10/10/20 carBAMazepine [TEGretol XR] 400 mg PO HS 10/19/18 10/10/20 Lacosamide [Vimpat] 150 mg PO BID 07/17/19 10/10/20 Ibuprofen [Motrin] 800 mg PO Q8H PRN 10/10/20 10/10/20 LORazepam [Ativan] 1 mg PO BID 10/10/20 10/10/20 Xcopri Titration Pack See Taper PO HS 10/10/20 10/10/20 carBAMazepine [TEGretol] 200 mg PO Q12H 10/10/20 10/10/20 Previous Rx's Medication Instructions Recorded lamoTRIgine [LaMICtal] 200 mg PO BID #0 06/28/20 Allergies Allergy/AdvReac Type Severity Reaction Status Date / Time No Known Allergies Allergy Verified 10/11/20 01:20 Review of Systems ROS Statement: Those systems with pertinent positive or pertinent negative responses have been documented in the HPI. ROS Other: All systems not noted in ROS Statement are negative. Past Medical History Past Medical History: GERD/Reflux, Seizure Disorder, Skin Disorder, Thyroid Disorder Additional Past Medical History / Comment(s): has history of epilepsy, hx grand mal seizures since childhood, migraines, acne, History of Any Multi-Drug Resistant Organisms: None Reported, Unobtainable Past Surgical History: Adenoidectomy, Appendectomy, Cholecystectomy, Tonsillectomy Additional Past Surgical History / Comment(s): oral surgery Past Anesthesia/Blood Transfusion Reactions: Previous Problems w/ Anesthesia Additional Past Anesthesia/Blood Transfusion Reaction / Comment(s): SLOW TO WAKE FROM ANESTHESIA" Past Psychological History: Anxiety, Depression Smoking Status: Never smoker Past Alcohol Use History: None Reported Past Drug Use History: None Reported - Past Family History Mother Family Medical History: Cancer Additional Family Medical History / Comment(s): breast cancer General Exam General appearance: alert, in no apparent distress Head exam: Present: atraumatic, normocephalic, normal inspection Eye exam: Present: normal appearance, PERRL, EOMI. Absent: scleral icterus, conjunctival injection, periorbital swelling ENT exam: Present: normal exam, mucous membranes moist Neck exam: Present: normal inspection. Absent: tenderness, meningismus, lymphadenopathy Respiratory exam: Present: normal lung sounds bilaterally. Absent: respiratory distress, wheezes, rales, rhonchi, stridor Cardiovascular Exam: Present: regular rate, normal rhythm, normal heart sounds. Absent: systolic murmur, diastolic murmur, rubs, gallop, clicks GI/Abdominal exam: Present: soft, normal bowel sounds. Absent: distended, tenderness, guarding, rebound, rigid Extremities exam: Present: normal inspection, full ROM, normal capillary refill. Absent: tenderness, pedal edema, joint swelling, calf tenderness Back exam: Present: normal inspection Neurological exam: Present: alert, oriented X3, CN II-XII intact Psychiatric exam: Present: normal affect, normal mood Skin exam: Present: warm, dry, intact, normal color. Absent: rash Course Vital Signs 10/11/20 01:18 Temperature 99 F Pulse Rate 85 Respiratory 19 Rate Blood Pressure 143/90 O2 Sat by Pulse 98 Oximetry - Reevaluation(s) Reevaluation #1: 10/11/20 01:59 Medical record is reviewed 10/11/20 01:59 Patient well-known to our facility as well as ER visit from earlier today Reevaluation #2: 10/11/20 01:59 Patient symptoms are improved, resolved Medical Decision Making - Medical Decision Making 30 male to the ER for evaluation patient presents today with persistent nausea vomiting. His symptoms again are resolved here in the ER patient be able to be discharged Disposition Clinical Impression: Vomiting, Nausea & vomiting Disposition: HOME SELF-CARE Condition: Good Instructions (If sedation given, give patient instructions): Acute Nausea and Vomiting (ED) Is patient prescribed a controlled substance at d/c from ED?: No Referrals: None,Stated [Primary Care Provider] - 1-2 days
[2020-10-11 01:20] VITALS: TEMP 99
[2020-10-11] MEDS ORDERED: ONDANSETRON 4 MG ODT STARTER PACK 2 TAB BTL PO STA (02:00)
[2020-10-11] MEDS ORDERED: ONDANSETRON ODT 4 MG TAB PO STA (02:00)
[2020-10-11 03:36] VITALS: BP 140/80; PULSE 70; RESP 18
== END 2020-10-11 03:36 | disposition home or self-care (01) ==
LOC: EC 01:06
DX: R11.2 Nausea with vomiting, unspecified (principal); G40.909 Epilepsy, unspecified, not intractable, without status epilepticus; F41.9 Anxiety disorder, unspecified; F32.9 Major depressive disorder, single episode, unspecified; Z79.899 Other long term (current) drug therapy
CPT/HCPCS: 99284; 96374; 96375; 96361 ×2; J1200; J2765

== ENCOUNTER 2020-10-20 12:21 | Emergency (ER) | payer MEDICARE, OTHER ==
[2020-10-20 12:39] VITALS: PULSE 81; RESP 16; TEMP 97.8
[2020-10-20] MEDS ORDERED: SODIUM CHLORIDE 0.9% 500 ML 500 ML IV STA (12:40)
[2020-10-20 13:26] LABS: Basophils % (A) 0 %; Eosinophils # (A) 0.5 k/uL (0-0.7); Eosinophils % (A) 5 %; Lymphocytes # (A) 1.1 k/uL (1.0-4.8); Lymphocytes % (A) 12 %; MCH 30.5 pg (25.0-35.0); MCHC 32.5 g/dL (31.0-37.0); MCV 93.9 fL (80.0-100.0); Mean Platelet Volume 6.5; Monocytes # (A) 0.3 k/uL (0-1.0); Monocytes % (A) 4 %; Neutrophils % (A) 78 %; Platelet Count 263 k/uL (150-450); RDW 12.5 % (11.5-15.5)
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
[2020-10-20 13:47] LABS: ALT 13 U/L (4-49); AST 17 U/L (17-59); African American GFR (CKD) >90 (>60 ml/min/1.73 sqM); Albumin 4.6 g/dL (3.5-5.0); Alkaline Phosphatase 112 U/L (38-126); Anion Gap 5 mmol/L; Blood Urea Nitrogen 11 mg/dL (9-20); Calcium 9.5 mg/dL (8.4-10.2); Carbamazepine (Tegretol) 7.8 ug/mL; Carbon Dioxide 26 mmol/L (22-30); Chloride 109 mmol/L (98-107); Glucose 96 mg/dL (74-99); Non-African American GFR(CKD) >90 (>60 ml/min/1.73 sqM); Potassium 4.7 mmol/L (3.5-5.1); Sodium 140 mmol/L (137-145); Total Bilirubin 0.4 mg/dL (0.2-1.3); Total Protein 7.8 g/dL (6.3-8.2)
[2020-10-20 14:14] VITALS: BP 122/87
== END 2020-10-20 14:18 | disposition home or self-care (01) ==
LOC: EC 12:21
DX: G40.909 Epilepsy, unspecified, not intractable, without status epilepticus (principal); F41.9 Anxiety disorder, unspecified; F32.9 Major depressive disorder, single episode, unspecified; Z79.899 Other long term (current) drug therapy; Z90.49 Acquired absence of other specified parts of digestive tract; Z90.89 Acquired absence of other organs; Z86.69 Personal history of other diseases of the nervous system and sense organs
CPT/HCPCS: 36415; 80053; 80156; 85025; 93005; 99284

== ENCOUNTER 2020-10-21 12:21 | Emergency (ER) | payer MEDICARE, OTHER ==
[2020-10-21 12:42] VITALS: BP 122/81; PULSE 78; RESP 17; TEMP 98.8
[2020-10-21] MEDS ORDERED: SODIUM CHLORIDE 0.9% 1,000 ML IV STA (12:51)
[2020-10-21] MEDS ORDERED: ONDANSETRON 4 MG/2 ML VIAL IVP STA (12:51)
[2020-10-21] MEDS ORDERED: SODIUM CHLORIDE 0.9% 500 ML 500 ML IV STA (12:51)
[2020-10-21] MEDS ORDERED: diphenhydrAMINE 50 MG/ML 1 ML VIAL IVP STA (12:51)
--- NOTE | 2020-10-21 13:04 | ED ---
General Adult HPI - General Source: patient, RN notes reviewed Mode of arrival: ambulatory Limitations: no limitations <Harshad Carey - Last Filed: 10/21/20 13:03> <Teresa Bajwa - Last Filed: 10/21/20 17:58> - General Chief complaint: Nausea/Vomiting/Diarrhea Stated complaint: Vomiting Time Seen by Provider: 10/21/20 12:51 - History of Present Illness Initial comments: 30-year-old male presents emergency Department chief complaint nausea vomiting. Patient states started earlier this morning. Patient was seen in emergency Department yesterday for seizure. He states that he does not have any recurrent seizures she has not went to headache that has blurred vision fevers chills cough congestion. He states he just does not stomach this happens very often for him. Patient states she tried Zofran this morning but states it was not dissolvable he vomited back up. (Harshad Carey) - Related Data Home Medications Medication Instructions Recorded Confirmed [place] Carbonate 450 mg PO BID 03/03/18 10/20/20 PHENobarbital 129.6 mg PO HS 10/19/18 10/20/20 carBAMazepine [TEGretol XR] 400 mg PO HS 10/19/18 10/20/20 Lacosamide [Vimpat] 150 mg PO BID 07/17/19 10/20/20 Ibuprofen [Motrin] 800 mg PO Q8H PRN 10/10/20 10/20/20 LORazepam [Ativan] 1 mg PO BID 10/10/20 10/20/20 Xcopri Titration Pack See Taper PO HS 10/10/20 10/20/20 carBAMazepine [TEGretol] 200 mg PO Q12H 10/10/20 10/20/20 Previous Rx's Medication Instructions Recorded lamoTRIgine [LaMICtal] 200 mg PO BID #0 06/28/20 Allergies Allergy/AdvReac Type Severity Reaction Status Date / Time No Known Allergies Allergy Verified 10/20/20 13:03 Review of Systems ROS Other: All systems not noted in ROS Statement are negative. <Harshad Carey - Last Filed: 10/21/20 13:03> ROS Other: All systems not noted in ROS Statement are negative. <Teresa Bajwa - Last Filed: 10/21/20 17:58> ROS Statement: Those systems with pertinent positive or pertinent negative responses have been documented in the HPI. Past Medical History Past Medical History: GERD/Reflux, Seizure Disorder, Skin Disorder, Thyroid Disorder Additional Past Medical History / Comment(s): has history of epilepsy, hx grand mal seizures since childhood, migraines, acne, History of Any Multi-Drug Resistant Organisms: None Reported, Unobtainable Past Surgical History: Adenoidectomy, Appendectomy, Cholecystectomy, Tonsillectomy Additional Past Surgical History / Comment(s): oral surgery Past Anesthesia/Blood Transfusion Reactions: Previous Problems w/ Anesthesia Additional Past Anesthesia/Blood Transfusion Reaction / Comment(s): SLOW TO WAKE FROM ANESTHESIA" Past Psychological History: Anxiety, Depression Smoking Status: Never smoker Past Alcohol Use History: None Reported Past Drug Use History: None Reported - Past Family History Mother Family Medical History: Cancer Additional Family Medical History / Comment(s): breast cancer <Harshad Carey M - Last Filed: 10/21/20 13:03> General Exam Limitations: no limitations General appearance: alert, in no apparent distress Head exam: Present: atraumatic, normocephalic, normal inspection Eye exam: Present: normal appearance, PERRL, EOMI. Absent: scleral icterus, conjunctival injection, periorbital swelling ENT exam: Present: normal exam, mucous membranes moist Neck exam: Present: normal inspection, full ROM. Absent: tenderness, meningismus, lymphadenopathy Respiratory exam: Present: normal lung sounds bilaterally. Absent: respiratory distress, wheezes, rales, rhonchi, stridor Cardiovascular Exam: Present: regular rate, normal rhythm, normal heart sounds. Absent: systolic murmur, diastolic murmur, rubs, gallop, clicks GI/Abdominal exam: Present: soft, normal bowel sounds. Absent: distended, tenderness, guarding, rebound, rigid Back exam: Absent: CVA tenderness (R), CVA tenderness (L) Neurological exam: Present: alert, oriented X3 Skin exam: Present: warm, dry, intact, normal color. Absent: rash <Harshad Carey M - Last Filed: 10/21/20 13:03> Course Vital Signs 10/21/20 12:39 Temperature 98.8 F Pulse Rate 78 Respiratory 17 Rate Blood Pressure 122/81 O2 Sat by Pulse 100 Oximetry Medical Decision Making - Lab Data Result diagrams: 10/21/20 13:26 10/21/20 13:26 <Teresa Bajwa - Last Filed: 10/21/20 17:58> - Medical Decision Making Patient is a 30-year-old male here for nausea and vomiting started this morning. He did try Zofran at home and vomited back up. Patient has had no active vomiting in the ER. His vitals are stable, and exam is unremarkable. Patient was given IV fluids, Benadryl and Zofran and has been resting comfortably in the ER. His lab work is unremarkable. Patient is stable for discharge. Will use Zofran as home as needed for any further nausea. He is in agreement with this plan of care. He can follow-up with his regular doctor. (Teresa Bajwa) - Lab Data Lab Results 10/21/20 10/21/20 Range/Units 13:26 13:26 WBC 9.8 (3.8-10.6) k/uL RBC 4.91 (4.30-5.90) m/uL Hgb 15.5 (13.0-17.5) gm/dL Hct 46.0 (39.0-53.0) % MCV 93.7 (80.0-100.0) fL MCH 31.5 (25.0-35.0) pg MCHC 33.7 (31.0-37.0) g/dL RDW 12.3 (11.5-15.5) % Plt Count 275 (150-450) k/uL MPV 7.4 Neutrophils % 78 % Lymphocytes % 12 % Monocytes % 3 % Eosinophils % 6 % Basophils % 1 % Neutrophils # 7.7 (1.3-7.7) k/uL Lymphocytes # 1.1 (1.0-4.8) k/uL Monocytes # 0.3 (0-1.0) k/uL Eosinophils # 0.6 (0-0.7) k/uL Basophils # 0.1 (0-0.2) k/uL Sodium 141 (137-145) mmol/L Potassium 4.5 (3.5-5.1) mmol/L Chloride 108 H (98-107) mmol/L Carbon Dioxide 25 (22-30) mmol/L Anion Gap 8 mmol/L BUN 9 (9-20) mg/dL Creatinine 0.91 (0.66-1.25) mg/dL Est GFR (CKD-EPI)AfAm >90 (>60 ml/min/1.73 sqM) Est GFR (CKD-EPI)NonAf >90 (>60 ml/min/1.73 sqM) Glucose 102 H (74-99) mg/dL Calcium 9.9 (8.4-10.2) mg/dL Total Bilirubin 0.5 (0.2-1.3) mg/dL AST 21 (17-59) U/L ALT 13 (4-49) U/L Alkaline Phosphatase 123 (38-126) U/L Total Protein 8.4 H (6.3-8.2) g/dL Albumin 4.9 (3.5-5.0) g/dL Amylase 53 (30-110) U/L Lipase 39 (23-300) U/L Disposition <Harshad Carey - Last Filed: 10/21/20 13:03> Is patient prescribed a controlled substance at d/c from ED?: No <Teresa Bajwa - Last Filed: 10/21/20 17:58> Clinical Impression: Nausea & vomiting Disposition: HOME SELF-CARE Condition: Stable Instructions (If sedation given, give patient instructions): Acute Nausea and Vomiting (ED) Additional Instructions: Please return to the Emergency Department if symptoms worsen or any other concerns. Use your Zofran for any further nausea. Please follow up with her regular doctor. Referrals: None,Stated [Primary Care Provider] - 1-2 days
[2020-10-21 13:32] LABS: Basophils # (A) 0.1 k/uL (0-0.2); Basophils % (A) 1 %; Eosinophils # (A) 0.6 k/uL (0-0.7); Eosinophils % (A) 6 %; HGB 15.5 gm/dL (13.0-17.5); Lymphocytes # (A) 1.1 k/uL (1.0-4.8); Lymphocytes % (A) 12 %; MCH 31.5 pg (25.0-35.0); MCHC 33.7 g/dL (31.0-37.0); MCV 93.7 fL (80.0-100.0); Mean Platelet Volume 7.4; Monocytes # (A) 0.3 k/uL (0-1.0); Monocytes % (A) 3 %; Neutrophils # (A) 7.7 k/uL (1.3-7.7); Neutrophils % (A) 78 %; Platelet Count 275 k/uL (150-450); RBC 4.91 m/uL (4.30-5.90); RDW 12.3 % (11.5-15.5); WBC 9.8 k/uL (3.8-10.6)
[2020-10-21 13:41] LABS: ALT 13 U/L (4-49); AST 21 U/L (17-59); African American GFR (CKD) >90 (>60 ml/min/1.73 sqM); Albumin 4.9 g/dL (3.5-5.0); Alkaline Phosphatase 123 U/L (38-126); Amylase 53 U/L (30-110); Anion Gap 8 mmol/L; Blood Urea Nitrogen 9 mg/dL (9-20); Calcium 9.9 mg/dL (8.4-10.2); Carbon Dioxide 25 mmol/L (22-30); Chloride 108 mmol/L (98-107); Glucose 102 mg/dL (74-99); Lipase 39 U/L (23-300); Non-African American GFR(CKD) >90 (>60 ml/min/1.73 sqM); Potassium 4.5 mmol/L (3.5-5.1); Sodium 141 mmol/L (137-145); Total Bilirubin 0.5 mg/dL (0.2-1.3); Total Protein 8.4 g/dL (6.3-8.2)
== END 2020-10-21 16:01 | disposition home or self-care (01) ==
LOC: EC 12:21
DX: R11.2 Nausea with vomiting, unspecified (principal); G40.909 Epilepsy, unspecified, not intractable, without status epilepticus; F32.9 Major depressive disorder, single episode, unspecified; F41.9 Anxiety disorder, unspecified; Z79.899 Other long term (current) drug therapy; Z90.49 Acquired absence of other specified parts of digestive tract; Z90.89 Acquired absence of other organs
CPT/HCPCS: 80053; 82150; 83690; 85025; 99284; 96374; 96375; 96361 ×2; J1200; J2405

== ENCOUNTER 2020-11-01 20:39 | Inpatient (IN) | payer MEDICARE, MEDICAID ==
--- NOTE | 2020-11-01 21:29 | ED ---
General Adult HPI - General Source: patient, police, RN notes reviewed Mode of arrival: ambulatory Limitations: no limitations <Bello Ivey - Last Filed: 11/01/20 21:46> <Gavin Grant - Last Filed: 11/02/20 00:04> - General Chief complaint: Psychiatric Symptoms Stated complaint: Mental health Time Seen by Provider: 11/01/20 21:04 - History of Present Illness Initial comments: Patient is a pleasant 30-year-old male presenting to the emergency department with mental health concerns. Patient is brought in by police officers. Patient admits to feeling depressed and having suicidal thoughts. Patient does have plan of harming himself with a knife. Patient denies taking any extra medications. Patient denies alcohol or street drug use. Patient denies hallucinations. Patient denies any new physical complaints. (Bello Ivey) - Related Data Home Medications Medication Instructions Recorded Confirmed [place] Carbonate 450 mg PO BID 03/03/18 11/01/20 PHENobarbital 129.6 mg PO HS 10/19/18 11/01/20 carBAMazepine [TEGretol XR] 400 mg PO HS 10/19/18 11/01/20 Lacosamide [Vimpat] 150 mg PO BID 07/17/19 11/01/20 Ibuprofen [Motrin] 800 mg PO Q8H PRN 10/10/20 11/01/20 LORazepam [Ativan] 1 mg PO BID 10/10/20 11/01/20 Xcopri Titration Pack See Taper PO HS 10/10/20 11/01/20 carBAMazepine [TEGretol] 200 mg PO Q12H 10/10/20 11/01/20 Previous Rx's Medication Instructions Recorded lamoTRIgine [LaMICtal] 200 mg PO BID #0 06/28/20 Allergies Allergy/AdvReac Type Severity Reaction Status Date / Time No Known Allergies Allergy Verified 11/01/20 20:43 Review of Systems ROS Other: All systems not noted in ROS Statement are negative. Constitutional: Denies: fever Eyes: Denies: eye pain ENT: Denies: ear pain Respiratory: Denies: cough Cardiovascular: Denies: chest pain Endocrine: Denies: fatigue Gastrointestinal: Denies: abdominal pain Genitourinary: Denies: dysuria Musculoskeletal: Denies: back pain Skin: Denies: rash Neurological: Denies: weakness <Bello Ivey - Last Filed: 11/01/20 21:46> ROS Other: All systems not noted in ROS Statement are negative. <Gavin Grant - Last Filed: 11/02/20 00:04> ROS Statement: Those systems with pertinent positive or pertinent negative responses have been documented in the HPI. Past Medical History Past Medical History: GERD/Reflux, Seizure Disorder, Skin Disorder, Thyroid Disorder Additional Past Medical History / Comment(s): has history of epilepsy, hx grand mal seizures since childhood, migraines, acne, History of Any Multi-Drug Resistant Organisms: None Reported, Unobtainable Past Surgical History: Adenoidectomy, Appendectomy, Cholecystectomy, Tonsillectomy Additional Past Surgical History / Comment(s): oral surgery Past Anesthesia/Blood Transfusion Reactions: Previous Problems w/ Anesthesia Additional Past Anesthesia/Blood Transfusion Reaction / Comment(s): SLOW TO WAKE FROM ANESTHESIA" Past Psychological History: Anxiety, Depression Smoking Status: Never smoker Past Alcohol Use History: None Reported Past Drug Use History: None Reported - Past Family History Mother Family Medical History: Cancer Additional Family Medical History / Comment(s): breast cancer <Bello Ivey - Last Filed: 11/01/20 21:46> General Exam Limitations: no limitations General appearance: alert, in no apparent distress Head exam: Present: atraumatic Eye exam: Present: normal appearance, PERRL, EOMI ENT exam: Present: normal oropharynx Neck exam: Present: normal inspection Respiratory exam: Present: normal lung sounds bilaterally Cardiovascular Exam: Present: regular rate, normal rhythm GI/Abdominal exam: Present: soft. Absent: tenderness Extremities exam: Present: normal inspection Neurological exam: Present: alert. Absent: motor sensory deficit Psychiatric exam: Present: depressed Skin exam: Present: normal color <Bello Ivey - Last Filed: 11/01/20 21:46> Course <Gavin Grant - Last Filed: 11/02/20 00:04> Vital Signs 11/01/20 20:41 Temperature 98 F Pulse Rate 76 Respiratory 18 Rate Blood Pressure 154/69 O2 Sat by Pulse 99 Oximetry - Reevaluation(s) Reevaluation #1: 11/01/20 23:00 Medical record is reviewed Patient was made medically clear for psych and seen and evaluate psychiatry here in the emergency department (Gavin Grant) EKG Findings - EKG Comments: EKG Findings:: Normal sinus rhythm at 70. MN 178. QRS 100. QT 390. QTC 421. Normal axis. Normal QRS. No acute ST change. <Bello Ivey - Last Filed: 11/01/20 21:46> Medical Decision Making - Lab Data Result diagrams: 11/01/20 21:48 11/01/20 21:48 <Gavin Grant - Last Filed: 11/02/20 00:04> - Medical Decision Making 30 male who was seen and evaluated by psychiatry here in the ER, patient can be admitted for psychiatric evaluation and treatment (Gavin Grant) - Lab Data Lab Results 11/01/20 11/01/20 11/01/20 Range/Units 21:48 21:48 23:19 WBC 6.8 (3.8-10.6) k/uL RBC 4.66 (4.30-5.90) m/uL Hgb 15.0 (13.0-17.5) gm/dL Hct 44.0 (39.0-53.0) % MCV 94.3 (80.0-100.0) fL MCH 32.3 (25.0-35.0) pg MCHC 34.2 (31.0-37.0) g/dL RDW 13.1 (11.5-15.5) % Plt Count 219 (150-450) k/uL MPV 6.4 Neutrophils % 59 % Lymphocytes % 23 % Monocytes % 5 % Eosinophils % 10 % Basophils % 1 % Neutrophils # 4.1 (1.3-7.7) k/uL Lymphocytes # 1.5 (1.0-4.8) k/uL Monocytes # 0.4 (0-1.0) k/uL Eosinophils # 0.7 (0-0.7) k/uL Basophils # 0.1 (0-0.2) k/uL Hypochromasia Slight Sodium 138 (137-145) mmol/L Potassium 3.9 (3.5-5.1) mmol/L Chloride 104 (98-107) mmol/L Carbon Dioxide 24 (22-30) mmol/L Anion Gap 10 mmol/L BUN 7 L (9-20) mg/dL Creatinine 0.85 (0.66-1.25) mg/dL Est GFR (CKD-EPI)AfAm >90 (>60 ml/min/1.73 sqM) Est GFR (CKD-EPI)NonAf >90 (>60 ml/min/1.73 sqM) Glucose 100 H (74-99) mg/dL Calcium 9.6 (8.4-10.2) mg/dL Total Bilirubin 0.4 (0.2-1.3) mg/dL AST 19 (17-59) U/L ALT 12 (4-49) U/L Alkaline Phosphatase 107 (38-126) U/L Total Protein 7.8 (6.3-8.2) g/dL Albumin 4.7 (3.5-5.0) g/dL Salicylates <1.0 mg/dL Acetaminophen <10.0 ug/mL [place] 1.0 mmol/L Serum Alcohol <10 mg/dL Coronavirus (PCR) Not Detected (Not Detectd) Disposition <Bello Ivey - Last Filed: 11/01/20 21:46> Is patient prescribed a controlled substance at d/c from ED?: No <Gavin Grant - Last Filed: 11/02/20 00:04> Clinical Impression: Depression, Major depressive disorder, recurrent severe without psychotic features, Suicidal ideation Disposition: TRANSFER TO PSYCH HOSP/UNIT Condition: Fair Referrals: None,Stated [Primary Care Provider] - 1-2 days
[2020-11-01 21:57] LABS: Basophils # (A) 0.1 k/uL (0-0.2); Basophils % (A) 1 %; Eosinophils # (A) 0.7 k/uL (0-0.7); Eosinophils % (A) 10 %; Hypochromasia Slight; Lymphocytes # (A) 1.5 k/uL (1.0-4.8); Lymphocytes % (A) 23 %; MCH 32.3 pg (25.0-35.0); MCHC 34.2 g/dL (31.0-37.0); MCV 94.3 fL (80.0-100.0); Mean Platelet Volume 6.4; Monocytes # (A) 0.4 k/uL (0-1.0); Monocytes % (A) 5 %; Neutrophils # (A) 4.1 k/uL (1.3-7.7); Neutrophils % (A) 59 %; Platelet Count 219 k/uL (150-450); RBC 4.66 m/uL (4.30-5.90); RDW 13.1 % (11.5-15.5); WBC 6.8 k/uL (3.8-10.6)
[2020-11-01 22:11] LABS: ALT 12 U/L (4-49); AST 19 U/L (17-59); Acetaminophen <10.0 ug/mL; African American GFR (CKD) >90 (>60 ml/min/1.73 sqM); Albumin 4.7 g/dL (3.5-5.0); Alcohol <10 mg/dL; Alkaline Phosphatase 107 U/L (38-126); Anion Gap 10 mmol/L; Blood Urea Nitrogen 7 mg/dL (9-20); Calcium 9.6 mg/dL (8.4-10.2); Carbon Dioxide 24 mmol/L (22-30); Chloride 104 mmol/L (98-107); Glucose 100 mg/dL (74-99); Non-African American GFR(CKD) >90 (>60 ml/min/1.73 sqM); Potassium 3.9 mmol/L (3.5-5.1); Salicylate <1.0 mg/dL; Sodium 138 mmol/L (137-145); Total Bilirubin 0.4 mg/dL (0.2-1.3); Total Protein 7.8 g/dL (6.3-8.2)
[2020-11-02] MEDS ORDERED: ACETAMINOPHEN TAB 325 MG TAB PO PRN (00:20)
[2020-11-02] MEDS ORDERED: LORazepam 1 MG TAB PO PRN (00:20)
[2020-11-02] MEDS ORDERED: LORazepam 2 MG/ML INJ IM PRN (00:23)
[2020-11-02] MEDS ORDERED: HALOPERIDOL LACTATE 5 MG/ML 1 ML VIAL IM PRN (01:00)
[2020-11-02] MEDS ORDERED: carBAMazepine 200 MG TAB PO SCH (01:00)
[2020-11-02] MEDS ORDERED: IBUPROFEN 800 MG TAB PO PRN (01:00)
[2020-11-02] MEDS ORDERED: haloperidoL 5 MG TAB PO PRN (01:00)
[2020-11-02] MEDS ORDERED: MAG HYDROX/AL HYDROX/SIMETH 30 ML CUP PO PRN (04:00)
[2020-11-02] MEDS ORDERED: MAGNESIUM HYDROXIDE 2,400 MG/10 ML CUP PO PRN (04:00)
[2020-11-02] MEDS: lamoTRIgine 100 MG TAB PO SCH ×2 (08:35→20:36)
[2020-11-02] MEDS: NICOTINE 7MG/24HR PATCH TRANSDERM SCH (08:35)
[2020-11-02] MEDS: LORazepam 1 MG TAB PO SCH ×2 (08:35→20:38)
[2020-11-02] MEDS: LITHIUM CARBONATE 150 MG CAP PO SCH ×2 (08:35→20:37)
[2020-11-02] MEDS ORDERED: LACOSAMIDE 150 MG TABLET PO SCH (09:00)
[2020-11-02] MEDS: carBAMazepine 200 MG TAB PO SCH ×2 (11:07→21:50)
--- NOTE | 2020-11-02 11:59 | P.HP ---
Psychiatric H&P - . H&P Date: 11/02/20 History & Physical: IDENTIFYING DATA: He is a 30-year-old male admitted to the psychiatric unit involuntarily. The police matron completed the petition documenting suicidal statements. HISTORY OF PRESENT ILLNESS: I reviewed the medical record, interviewed the patient and spoke with his on the telephone. I did not feel confident the information that he provided. He was lethargic and appeared to have difficulty concentrating and attending to the interview. He stated that he called the police following an argument with his . He complained that his have been criticizing him about his speech impediment. When the police arrived the house he threatened to stab himself with a knife. During our interview he stated that he would kill himself if his would take his son from him. His complained that he is been increasingly irritable and irresponsible. Her primary concern is that he has become increasingly irritable and angry. When he becomes angry the anger escalates to where he is loud, profane, accusatory and demanding. He begins making suicidal statements during his fits of rage. She complained that he has become "lazy". He will not leaf size picker after himself, does not shower and does not clean himself after he uses the bathroom. She gave examples where he would throw items on the floor of the home rather take them to the trash basket. He complains that she is constantly criticizing him but she feels that she has to remind him to take a shower, washing himself, clean himself after going to the bathroom and leaf size picker after himself. He called the police after an incident where the dog made a mess after Stephan had left a dish with food on the floor. She stated that when he becomes particularly angry it escalates rapidly and he is unable to calm himself. Another recurrent theme custody of her son if they were to separate. He repeatedly makes statements that he will kill himself if he is not allowed to see his son. He has repeatedly threatened that if he were to lose custody of his son that he would "make sure" that she would not have custody. As a result of his recurrent suicidal statements she has locked away all the knives in the house and has hidden his medications. She is taking responsibility for administering his medications. PAST PSYCHIATRIC HISTORY: He has had multiple admissions to this unit. This is his fifth over the last 12 months. He was last discharged from our unit in June 2020. During this admission he was transfered to the SICU following a grand mal seizure and CT findings of a subarachnoid hemorrhage. His brought him back to the emergency room the day after discharge. According to the EPS nurse notes the couple had an argument when his saw pictures of an ex-girlfriend on his computer. He alleged that she told him that he would never see his son again. He told her that if she took her son away he would kill himself. The police came to her house and took him to the hospital. He admitted making this statement but denied that he had suicidal intent or plan. We discharge him home without recommendation for psychiatric hospitalization. The police brought him back to the emergency room 3 days later on 07/05/2020 after his completed another petition. She stated that he was markedly angry and agitated to wear that she locked herself in the bathroom with her son. She requested admission to a different psychiatric facility because she felt that he was not receiving proper care on this psychiatric unit. He was admitted to [facility] in [place]. During that hospitalization he experienced grand mal seizures and was transferred to [facility]. He was placed on a treatment order and started on lithium while he was at [facility]. His complained that he is not been compliant with the lithium and he has not kept his appointments at [facility]. His stated that the therapist at [facility] at [place] is responsible for management of the involuntary order. PAST MEDICAL HISTORY: He has a history of a seizure disorder that is uncontrolled despite taking 5 antiseizure medications. His current seizure medications include Tegretol 20 mg every 12 hours, Tegretol-XR 400 mg at bedtime, Vimpat 150 mg at bedtime, Lamictal 200 mg twice a day, phenobarbital 129.6 mg at bedtime and Xcopri 100 mg at bedtime. He is currently cross titrating Vimpat with XCopri. His reported that he has not had a grand mal seizure since he was discharged from [facility] but he continues to have partial seizures where he becomes nauseous, confused and fatigued. She is managing his medications administering the prescribed doses of the medications. ALLERGIES: NO KNOWN DRUG ALLERGIES. SUBSTANCE USE HISTORY: He denied use of alcohol or drugs. His UDS was positive only for barbiturates and his serum alcohol level was negative. FAMILY PSYCHIATRIC/SUBSTANCE USE HISTORY: He is unaware of family history of mental health or substance use problems. LEGAL HISTORY: He is not on probation, parole or has pending charges. He has past charges of domestic violence. SOCIAL HISTORY: His born and raised in [place]. He spent his special education and graduated from program at 17. 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 He is currently unemployed and receives security disability. He is for 4 years and has one 4-year-old child. His is also disabled. MENTAL STATUS EXAM: He presented as a tall casually groomed 30-year-old male who had difficulty concentrating and attending interview. He made eye contact. He had a spastic gait. He had a distressed facial expression. He is oriented to person and place. He had psychomotor retardation. Her speech was spontaneous but slow, dysarthric and slurred. His affect was flat. He describes suicidal ideation and wishes. He denied homicidal ideation. He expressed feelings of hopelessness and helplessness regarding his ongoing marital difficulties. He did not express clear ideas reference, paranoid ideation or delusions. His thinking was very concrete but his associations appeared goal directed. He denied hallucinations did not appear to be responding to internal stimuli. Global impression of intellect is average to below. He has limited awareness or understanding of his illness but is accepting treatment. STRENGTHS: Engagement with mental health services, supportive family WEAKNESSES: Uncontrolled seizure disorder, cognitive impairment IMPRESSION: Is 30-year-old male who is uncontrolled seizure disorder, chronic problems with emotional control, cognitive impairment and recu rrent suicidal ideation. He presented to the psychiatric unit involuntarily after calling the police and reporting suicidal thoughts and plans. He shows no insight or understanding of circumstances that brought him to the hospital attributing his distress to his . The couple appeared to have chronic marital difficulties and recurrent conflict. He should best be treated inpatient basis with combination of psychopharmacology and multimodal therapy. 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 He clarifies his probate status. Safety precautions including seizure precautions. Continue lithium milligrams twice a day. Continue Tegretol 200 mg every 12 hours and Tegretol-XR 400 mg at bedtime, Vimpat 150 mg at bedtime, Lamictal 200 mg twice a day, phenobarbital 129.6 mg at bedtime and Xcopri 100 mg at bedtime ( to bring the medication to the unit because it is a nonformulary item). Consult medicine for initial physical exam and medical history. 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 Encourage participation in therapeutic groups and activities as tolerated. Evaluate clinical status response to treatment daily basis. Allergies Allergy/AdvReac Type Severity Reaction Status Date / Time No Known Allergies Allergy Verified 11/01/20 20:43 Vital Signs Temp 98.5 F 11/02/20 01:00 Pulse 85 11/02/20 01:00 Resp 18 11/02/20 01:00 BP 137/70 11/02/20 01:00 Pulse Ox 98 11/02/20 01:00 Intake & Output 11/01/20 11/02/20 11/02/20 18:59 06:59 18:59 Weight 92.8 kg Laboratory Last Values WBC 6.8 k/uL (3.8-10.6) 11/01/20 21:48 RBC 4.66 m/uL (4.30-5.90) 11/01/20 21:48 Hgb 15.0 gm/dL (13.0-17.5) 11/01/20 21:48 Hct 44.0 % (39.0-53.0) 11/01/20 21:48 MCV 94.3 fL (80.0-100.0) 11/01/20 21:48 MCH 32.3 pg (25.0-35.0) 11/01/20 21:48 MCHC 34.2 g/dL (31.0-37.0) 11/01/20 21:48 RDW 13.1 % (11.5-15.5) 11/01/20 21:48 Plt Count 219 k/uL (150-450) 11/01/20 21:48 MPV 6.4 11/01/20 21:48 Neutrophils % 59 % 11/01/20 21:48 Lymphocytes % 23 % 11/01/20 21:48 Monocytes % 5 % 11/01/20 21:48 Eosinophils % 10 % 11/01/20 21:48 Basophils % 1 % 11/01/20 21:48 Neutrophils # 4.1 k/uL (1.3-7.7) 11/01/20 21:48 Lymphocytes # 1.5 k/uL (1.0-4.8) 11/01/20 21:48 Monocytes # 0.4 k/uL (0-1.0) 11/01/20 21:48 Eosinophils # 0.7 k/uL (0-0.7) 11/01/20 21:48 Basophils # 0.1 k/uL (0-0.2) 11/01/20 21:48 Hypochromasia Slight 11/01/20 21:48 Sodium 138 mmol/L (137-145) 11/01/20 21:48 Potassium 3.9 mmol/L (3.5-5.1) 11/01/20 21:48 Chloride 104 mmol/L (98-107) 11/01/20 21:48 Carbon Dioxide 24 mmol/L (22-30) 11/01/20 21:48 Anion Gap 10 mmol/L 11/01/20 21:48 BUN 7 mg/dL (9-20) L 11/01/20 21:48 Creatinine 0.85 mg/dL (0.66-1.25) 11/01/20 21:48 Est GFR (CKD-EPI)AfAm >90 (>60 ml/min/1.73 sqM) 11/01/20 21:48 Est GFR (CKD-EPI)NonAf >90 (>60 ml/min/1.73 sqM) 11/01/20 21:48 Glucose 100 mg/dL (74-99) H 11/01/20 21:48 Calcium 9.6 mg/dL (8.4-10.2) 11/01/20 21:48 Total Bilirubin 0.4 mg/dL (0.2-1.3) 11/01/20 21:48 AST 19 U/L (17-59) 11/01/20 21:48 ALT 12 U/L (4-49) 11/01/20 21:48 Alkaline Phosphatase 107 U/L (38-126) 11/01/20 21:48 Total Protein 7.8 g/dL (6.3-8.2) 11/01/20 21:48 Albumin 4.7 g/dL (3.5-5.0) 11/01/20 21:48 Salicylates <1.0 mg/dL 11/01/20 21:48 Acetaminophen <10.0 ug/mL 11/01/20 21:48 [place] 1.0 mmol/L 11/01/20 21:48 Serum Alcohol <10 mg/dL 11/01/20 21:48 Coronavirus (PCR) Not Detected (Not Detectd) 11/01/20 23:19 11/02/20 11:16
[2020-11-02] MEDS: LACOSAMIDE 150 MG TABLET PO SCH (20:36)
[2020-11-02] MEDS: carBAMazepine 400 MG TAB.ER.12H PO SCH (20:36)
[2020-11-02] MEDS: CENOBAMATE PO SCH (21:49)
[2020-11-03] MEDS: NICOTINE 7MG/24HR PATCH TRANSDERM SCH (08:21)
[2020-11-03] MEDS: LITHIUM CARBONATE 150 MG CAP PO SCH ×2 (08:22→20:52)
[2020-11-03] MEDS: lamoTRIgine 100 MG TAB PO SCH ×2 (08:22→20:52)
[2020-11-03] MEDS: carBAMazepine 200 MG TAB PO SCH ×2 (08:22→20:52)
[2020-11-03] MEDS: LORazepam 1 MG TAB PO SCH ×2 (08:23→20:49)
[2020-11-03 08:40] LABS: Basophils # (A) 0.1 k/uL (0-0.2); Basophils % (A) 1 %; Eosinophils # (A) 0.6 k/uL (0-0.7); Eosinophils % (A) 8 %; HCT 47.2 % (39.0-53.0); HGB 15.7 gm/dL (13.0-17.5); Lymphocytes # (A) 2.6 k/uL (1.0-4.8); Lymphocytes % (A) 33 %; MCH 31.6 pg (25.0-35.0); MCHC 33.3 g/dL (31.0-37.0); MCV 94.8 fL (80.0-100.0); Mean Platelet Volume 6.4; Monocytes # (A) 0.4 k/uL (0-1.0); Monocytes % (A) 5 %; Neutrophils # (A) 4.2 k/uL (1.3-7.7); Neutrophils % (A) 52 %; Platelet Count 236 k/uL (150-450); RBC 4.98 m/uL (4.30-5.90); RDW 11.9 % (11.5-15.5); WBC 8.1 k/uL (3.8-10.6)
[2020-11-03 08:56] LABS: ALT 12 U/L (4-49); AST 19 U/L (17-59); African American GFR (CKD) >90 (>60 ml/min/1.73 sqM); Alkaline Phosphatase 110 U/L (38-126); Anion Gap 9 mmol/L; Blood Urea Nitrogen 10 mg/dL (9-20); Carbon Dioxide 28 mmol/L (22-30); Chloride 103 mmol/L (98-107); Cholesterol 245 mg/dL (<200); Glucose 101 mg/dL (74-99); HDL Cholesterol 45 mg/dL (40-60); LDL Cholesterol,Calculated 174 mg/dL (0-99); Non-African American GFR(CKD) >90 (>60 ml/min/1.73 sqM); Potassium 3.7 mmol/L (3.5-5.1); Sodium 140 mmol/L (137-145); Total Bilirubin 0.6 mg/dL (0.2-1.3); Total Protein 8.4 g/dL (6.3-8.2); Triglycerides 129 mg/dL (<150)
--- NOTE | 2020-11-03 10:55 | P.PN ---
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 He complained that his wants him to be "locked up" for 30 days and as a result he would not be able to see his son. He again express the feeling that if he were not allowed to see her son she would "kill myself." He has no insight or understanding of how disproportionate his actions were to the circumstances that led to this hospitalization. In particular he was unable to explain why he became so distressed that he called the police and began expressing suicidal thoughts. He provided vague and disjointed explanation about his trying to keep her son from him. His explanation is grossly inconsistent with that provided by his . He complained of continued feelings of depression and express wishes. He is had no overt seizure episodes and no episodes of behavioral dyscontrol. Mental status exam: He presented as casually groomed 30-year-old male who was pleasant on approach. He made eye contact and appeared to attend to the interview. He had a distressed facial expression. He was alert and oriented to person, place and time. He showed psychomotor retardation and a slow spastic gait. His speech was dysarthric and at times very difficult to understand. His affect was depressed but reactive. He expressed suicidal thoughts and wishes. He denied homicidal ideation. He expressed feelings of hopelessness, helplessness or worthlessness. He did not express ideas reference, paranoid ideation or delusions. His thinking was concrete but his associations appeared organized and goal directed. He denied hallucinations did not appear to be responding to internal stimuli. We completed the [place] Cognitive Assessment. His total score was 18/30 and his Memory Index Score was 8/15. This score is consistent with moderate cognitive impairment. On the assessment he showed impairment with visual spatial executive functioning, language, abstraction and short-term memory. Assessment: He remains depressed and continues to express suicidal thoughts. He has a chronic and uncontrolled seizure disorder. He has moderate impairment in cognitive functioning as measured by the [place] Cognitive Assessment with Significant Impairments of Executive Functioning, Language, Abstraction and Short-Term Memory. Plan: Continue inpatient treatment. Continue safety precautions including seizure precautions. Continue lithium 450 mg twice a day and repeat the lithium level in 2-3 days. Continue current antiseizure medications including Tegretol- XR 400 mg at bedtime, Tegretol 200 mg every 12 hours, Vimpat 150 mg at bedtime, phenobarbital 129.6 mg at bedtime and Xcopri 100 mg at bedtime. Clarify with his when he is scheduled to increase the dose of Xcopri and discontinue Vimpat. Encourage participation in therapeutic groups and activities as tolerated. Evaluate clinical status response to treatment daily basis.
[2020-11-03] MEDS ORDERED: LORazepam 2 MG/ML INJ IM PRN (18:04)
--- NOTE | 2020-11-03 18:10 | P.MDCNMH ---
<Efren Beard - Last Filed: 11/03/20 18:10> History of Present Illness H&P Date: 11/03/20 Chief Complaint: Depression with suicidal ideations History of presenting illness: Patient is a 30-year-old male with a past medical history of depression, uncontrolled epilepsy, cognitive impairment and subarachnoid bleed. Patient is currently admitted to the inpatient psychiatric unit secondary to depression with suicidal ideations and a plan to stab himself with a knife. We have been consulted for continued medical management. Per documentation in chart, pt's last reported Grand mal seizure occurred June 2020, but it is reported that he continues to have partial seizures in which he reportedly becomes nauseas, confused, and fatigued. Upon assessment, patient reports that he had been increasingly depressed and got into an argument with his about seeing his son and things got out of control and he called the police because in that moment he wanted to kill himself. Pt states that he was going to stab himself with a knife. Pt reports that he continues to have these increased feelings of depression and thoughts of killing himself, but reports that he just wants to get out of the hospital so he can go see his son. He denies having any headache, lightheadedness, dizziness, changes in his vision or hearing, chest pain or palpitations, shortness of breath, abdominal pain, nausea, changes in her difficulties with urinary or bowel function, or experiencing any numbness/tingling/weakness/swelling in extremities. Review of systems: Pertinent positives and negatives as discussed in HPI, a complete review of systems was performed and all other systems are negative. Physical exam: General: non toxic, no distress, appears at stated age Derm: warm, dry Head: atraumatic, normocephalic, symmetric Eyes: no lid lag, anicteric sclera Mouth: no lip lesion, mucus membranes moist Cardiovascular: S1S2 reg, no murmur, positive posterior tibial pulse bilateral, Lungs: Respirations even, regular, and unlabored on room air. Lungs CTA bilateral, no rhonchi, no rales, no wheezing and no accessory muscle use Abdominal: soft, nontender to palpation, no guarding, no appreciable organomegaly Ext: no gross muscle atrophy, no edema, no contractures Neuro: GCS 15. Speech clear but slowed response. Psych: Alert, oriented to person, place, time, and situation. Patient with a depressed and tearful affect, expressing feelings of hopelessness and depression with suicidal ideations. Plan of care: Depression with suicidal ideations accompanied by a suicidal plan -Suicide precautions to remain in place. -Care to continue as recommended by psychiatry team. Chronic and uncontrolled seizure disorder -Seizure, aspiration, and fall precautions to be in place. -Patient to continue daily medication management including Tegretol 20 mg every 12 hours, TegretolXR 400 mg at bedtime, Vimpat 150 mg at bedtime, Lamictal to 200 mg twice a day, phenobarbital 129.6 mg at bedtime and Xcopi 100 mg at bedtime. -PRN order placed for Ativan 2 mg IM to be administered for active seizure activity and instructions to notify provider immediately if given. Thank you for allowing us to participate in the care of this pleasant patient. Do not hesitate to contact us with questions. We will follow this patient on an as needed basis, please contact us as needed. Someone can be reached from the [facility] hospitalist group all hours of the day at [phone] or via [employer]. Past Medical History Past Medical History: GERD/Reflux, Seizure Disorder, Skin Disorder, Thyroid Disorder Additional Past Medical History / Comment(s): has history of epilepsy, hx grand mal seizures since childhood, migraines, acne, History of Any Multi-Drug Resistant Organisms: None Reported, Unobtainable Past Surgical History: Adenoidectomy, Appendectomy, Cholecystectomy, Tonsillectomy Additional Past Surgical History / Comment(s): oral surgery Past Anesthesia/Blood Transfusion Reactions: Previous Problems w/ Anesthesia Additional Past Anesthesia/Blood Transfusion Reaction / Comment(s): SLOW TO WAKE FROM ANESTHESIA" Past Psychological History: Anxiety, Depression Additional Psychological History / Comment(s): per pt-he was in special e ducation classes thru out school(has some intellectual disabilty), speech impediment. able to read and write. Smoking Status: Never smoker Past Alcohol Use History: None Reported Additional Past Alcohol Use History / Comment(s): Denies any alcohol intake since he is on probation April 2019 Past Drug Use History: None Reported Additional Drug Use History / Comment(s): Denies any illicit drugs or any marijuana use - Past Family History Mother Family Medical History: Cancer Additional Family Medical History / Comment(s): breast cancer Medications and Allergies Home Medications Medication Instructions Recorded Confirmed Type Bergholz Carbonate 450 mg PO BID 03/03/18 11/01/20 History PHENobarbital 129.6 mg PO HS 10/19/18 11/01/20 History carBAMazepine [TEGretol XR] 400 mg PO HS 10/19/18 11/01/20 History Lacosamide [Vimpat] 150 mg PO BID 07/17/19 11/01/20 History lamoTRIgine [LaMICtal] 200 mg PO BID #0 06/28/20 11/01/20 Rx Ibuprofen [Motrin] 800 mg PO Q8H PRN 10/10/20 11/01/20 History LORazepam [Ativan] 1 mg PO BID 10/10/20 11/01/20 History Xcopri Titration Pack See Taper PO HS 10/10/20 11/01/20 History carBAMazepine [TEGretol] 200 mg PO Q12H 10/10/20 11/01/20 History Allergies Allergy/AdvReac Type Severity Reaction Status Date / Time No Known Allergies Allergy Verified 11/01/20 20:43 Physical Exam Vitals: Vital Signs Temp Pulse Resp BP Pulse Ox 11/03/20 17:15 98.4 F 11/03/20 09:45 98.4 F 11/03/20 07:03 98.6 F 57 L 16 104/58 97 11/02/20 18:12 98.2 F Cranial Nerve Examination - Cranial Nerves Cranial Nerve II- Optic: Intact Cranial Nerve III- Oculomotor: Intact Cranial Nerve IV- Trochlear: Intact Cranial Nerve V- Trigeminal: Intact Cranial Nerve - Abducens: Intact Cranial Nerve VII- Facial: Intact Cranial Nerve VIII- Auditory: Intact Cranial Nerve IX- Glossopharyngeal: Intact Cranial Nerve X- Vagus: Intact Cranial Nerve XI- Accessory: Intact Cranial Nerve XII- Hypoglossal: Intact Results CBC & Chem 7: 11/03/20 08:18 11/03/20 08:18 Labs: Abnormal Lab Results - Last 24 Hours (Table) 11/03/20 Range/Units 08:18 Glucose 101 H (74-99) mg/dL Total Protein 8.4 H (6.3-8.2) g/dL Cholesterol 245 H (<200) mg/dL LDL Cholesterol, Calc 174 H (0-99) mg/dL <Mounika Torrez A - Last Filed: 11/03/20 18:15> History of Present Illness I discussed the care with Efren Beard NP and reviewed the findings and plan as documented in the note above. I did not staff this patient on this date. Physical Exam Osteopathic Statement: *. No significant issues noted on an osteopathic structural exam other than those noted in the History and Physical/Consult. Vitals: Vital Signs Temp Pulse Resp BP Pulse Ox 11/03/20 17:15 98.4 F 11/03/20 09:45 98.4 F 11/03/20 07:03 98.6 F 57 L 16 104/58 97 Results CBC & Chem 7: 11/03/20 08:18 11/03/20 08:18 Labs: Abnormal Lab Results - Last 24 Hours (Table) 11/03/20 Range/Units 08:18 Glucose 101 H (74-99) mg/dL Total Protein 8.4 H (6.3-8.2) g/dL Cholesterol 245 H (<200) mg/dL LDL Cholesterol, Calc 174 H (0-99) mg/dL
[2020-11-03 20:08] LABS: Hemoglobin A1C 4.7 % (4.0-6.0)
[2020-11-03] MEDS: LACOSAMIDE 150 MG TABLET PO SCH (20:52)
[2020-11-03] MEDS: CENOBAMATE PO SCH (20:52)
[2020-11-03] MEDS: carBAMazepine 400 MG TAB.ER.12H PO SCH (20:52)
[2020-11-04 03:57] VITALS: RESP 18
[2020-11-04] MEDS: carBAMazepine 200 MG TAB PO SCH ×2 (08:30→20:42)
[2020-11-04] MEDS: lamoTRIgine 100 MG TAB PO SCH ×2 (08:30→20:43)
[2020-11-04] MEDS: LORazepam 1 MG TAB PO SCH ×2 (08:30→20:46)
[2020-11-04] MEDS: LITHIUM CARBONATE 150 MG CAP PO SCH ×2 (08:30→20:43)
--- NOTE | 2020-11-04 16:07 | PN ---
DATE OF SERVICE: 11/04/2020 PROGRESS NOTE CHIEF COMPLAINT: The patient was admitted for suicidal thinking with making a threat to stab himself with a knife. INTERVAL HISTORY: Patient has been doing fair. He had a quiet day yesterday. He comes out in the day area some. He will wander about. He spends a fair amount of time in his room. He will interact a little with others. He attended two groups yesterday. In one of the groups he seemed to make a good effort to engage with the group. He said he slept excessively last night. Today he has been up. He attended one group today. He was a little reluctant to go to another group at the end of our discussion because he does not like wearing a mask and having his glasses get fogged. When I discussed the issues that lead up to his coming into the hospital, he said one factor is that he was not taking his medication properly and did not think he was taking enough lithium. He could not give me details on that, though it is noteworthy that on the he had a lithium level of 1.0 at 9:48 pm. He was not clear when his last lithium dose was before then. He notes that his last seizure was about three days ago. He said he is not aware of what happens when he has a seizure because he "zones out." He said that he had made some efforts this morning to talk to his , though she could not talk to him at that time. He said he took it as she did not really want to talk to him at all. It is noted that he lives with his and 5-year-old son. He appears to tolerate his psychotropic medications. MENTAL STATUS: Patient sat with a little restlessness. Eye contact was fair at best. He tended to look out in front of him and down though occasionally he would turn and look in my direction. He answered questions with brief responses. At times it was a little difficult to understand what he was saying as he tended to have some slurring is in his speech. He answered questions appropriately. His affect was flat. His mood was down. It was noteworthy that he would smile just a little at different times during the interview. He did not appear to be significantly distressed, though he did have a somewhat worried manner overall. There was no indication of thought disorder. He said he still has some thoughts of harming himself, though he says it is less. Cognition was clear. ASSESSMENT: I will continue the current diagnosis and treatment plan. We will continue to engage the patient in individual and group therapeutic activities. I will continue psychotropic medications the same, namely lithium 450 mg twice a day. I will get levels on his lithium, Tegretol and phenobarbital. I encouraged the patient to make efforts to talk with his and suggested that it might be helpful for our older adult social work specialist to set up a family meeting to talk about discharge planning. I also discussed that it might be helpful for him and his to be in some couples therapy to work on communication. We will focus on stabilization and discharge planning. JESSE / JERO: [id number] / SANDOR
[2020-11-04] MEDS: carBAMazepine 400 MG TAB.ER.12H PO SCH (20:43)
[2020-11-04] MEDS: LACOSAMIDE 150 MG TABLET PO SCH (20:46)
[2020-11-04] MEDS: CENOBAMATE PO SCH (21:00)
[2020-11-04 23:33] LABS: Urine Alcohol Negative (Negative); Urine Barbiturate Positive (Negative); Urine Cocaine Negative (Negative); Urine Methadone Negative (Negative); Urine Opiates Negative (Negative); Urine Phencyclidine Negative (Negative)
[2020-11-05 07:27] LABS: Carbamazepine (Tegretol) 7.2 ug/mL; Lithium 0.9 mmol/L
[2020-11-05] MEDS: LORazepam 1 MG TAB PO SCH ×2 (08:24→20:22)
[2020-11-05] MEDS: LITHIUM CARBONATE 150 MG CAP PO SCH ×2 (08:25→20:22)
[2020-11-05] MEDS: lamoTRIgine 100 MG TAB PO SCH ×2 (08:25→20:22)
[2020-11-05] MEDS: carBAMazepine 200 MG TAB PO SCH ×2 (08:25→20:22)
--- NOTE | 2020-11-05 13:12 | PN ---
PROGRESS NOTE DATE OF SERVICE: 11/05/2020 CHIEF COMPLAINT: The patient was admitted for suicidal thinking with making a threats to stab himself with a knife. INTERVAL HISTORY: Patient has been doing fair. He had a quiet day yesterday. He attended 2 out of 3 groups and presented in a reserved manner. He comes out in the day area. He will wander about. He does not interact too much with others. He slept well last night. Today he has been up and again has been out. It is noted that he requested today that I have a conference telephone call with him and his . We did call his . He did talk to her yesterday. A concern that he had been focused on was the idea that he believed she had said he needs a 30 day hospital stay. She clarified that she had never made that statement and that in fact it came through [facility] that they were suggesting he might need a 30 day hospitalization relating to the court order issues. She noted that there was contact with Clarissa Pagan who is the [facility] prescriber for the patient. On there was a contact with [facility] and they were not able to continue medications because the patient had not had any follow through with treatment with them for the previous three months. The notes that the patient had struggled for a very long time with difficulties in his mood. He frequently will initiate arguments often over very minor things. He will then be making negative comments about his that she does not care about him. She was quite insistent on the idea that she has done many things to help support him in spite of his very long history of psychiatric issues. We reviewed the notes that are available in this medical record, which notes that he has had multiple psychiatric hospitalizations which includes admissions in 2020 of June 29, June 27, April 12 and March 08. He had a number of hospitalizations in 2017, 2017, one in 2016 and two in 2014. His indicated that he seemed to have a stable period for over year where he did not have hospitalizations that seemed to occur after the July 21, 2018 admission. He was stable on his lithium, which seemed to be the most effective medication for him. In reviewing the medical records from these admissions, he had been tried on Effexor with doses titrating up to 300 mg a day. That is the only antidepressant that he took consistently over a number of years at different doses. In addition, he has also been tried on Trintellix and Rexalti. The noted that he had an admission to another facility and had been tried on Zyprexa though had several seizures over a five day span of time. It was felt that the Zyprexa was the cause of seizures, so it is recommended he not be tried on Zyprexa again. In regards to his current medications he has a lithium level this morning of 0.9, a phenobarbital level of 23.6 and a Tegretol level of 7.2, all within the therapeutic range. He appears to tolerate his psychotropic medications, though it is noted the only medication prescribed for his psychiatric condition is the lithium carbonate 450 mg twice a day. MENTAL STATUS: Patient sat with a little restlessness. He gave fair eye contact. He answered questions with direct responses. His thoughts were clear. It was noteworthy that he had a fairly calm conversation with his . He did not get into any distress. His affect was a little blunted. His mood reserved. There was no indication of thought disorder. He voiced no thoughts of harm. Cognition was clear. ASSESSMENT: I will continue the current diagnosis and treatment plan. We will continue lithium carbonate 450 mg twice a day. As noted, the is very concerned about the fact that he persistently sets up conflicts with his . That is the main struggle in his life situation. She is willing to be engaged in couples counseling. In addition, she said she is willing to be more engaged in his overall treatment given that he did not follow through for three months with followup care. I discussed with the patient and that there are risks for the patient being on antidepressants in that some authorities and research indicates there is significant increased risk for cycling in bipolar disorder when the antidepressants are prescribed. On this basis, there might be consideration for adding either Seroquel or Latuda to his medication regimen, though I indicated I would defer that to Dr. Perera. I would recommend the patient be referred for couples therapy with his through [facility] and, in addition, that releases be signed through [facility] so that his can have regular contact and follow up as needed with [facility] to be sure the patient is on track with his treatment. We will focus on stabilization and discharge planning. MMMODESTAL / KINJALN: [id number] /
[2020-11-05] MEDS: carBAMazepine 400 MG TAB.ER.12H PO SCH (20:22)
[2020-11-05] MEDS: LACOSAMIDE 150 MG TABLET PO SCH (20:22)
[2020-11-05] MEDS: CENOBAMATE PO SCH (21:25)
[2020-11-06 06:33] VITALS: BP 102/57; PULSE 58
[2020-11-06] MEDS: LORazepam 1 MG TAB PO SCH ×2 (08:31→09:09)
[2020-11-06] MEDS: lamoTRIgine 100 MG TAB PO SCH (08:31)
[2020-11-06] MEDS: carBAMazepine 200 MG TAB PO SCH (08:31)
[2020-11-06] MEDS: LITHIUM CARBONATE 150 MG CAP PO SCH (08:31)
--- NOTE | 2020-11-06 11:32 | P.DS ---
Providers Date of admission: 11/02/20 00:08 Attending physician: Luciano Perera MD Consults: 11/02/20 00:20 Consult Physician Routine Consulting Provider: Bakari Physician Consult Reason/Comments: H and P Do you want consulting provider notified?: Yes Primary care physician: Stated None - Discharge Diagnosis(es) (1) Suicidal ideations Current Visit: Yes Status: Resolved Priority: Low (2) Mood disorder due to a general medical condition Current Visit: Yes Status: Resolved Priority: High (3) Minor neurocognitive disorder Current Visit: Yes Status: Chronic Priority: High (4) Seizure disorder Current Visit: No Status: Chronic Priority: High (5) Marital conflict Current Visit: Yes Status: Chronic Priority: Medium Hospital Course: HISTORY: He is a 30-year-old male admitted to the psychiatric unit involuntarily. The public safety police completed the petition documenting suicidal statements. I did not feel confident the information that he provided. He was lethargic and appeared to have difficulty concentrating and attending to the interview. He stated that he called the police following an argument with his . He complained that his have been criticizing him about his speech impediment. When the police arrived the house he threatened to stab himself with a knife. During our interview he stated that he would kill himself if his would take his son from him. His complained that he is been increasingly irritable and irresponsible. Her primary concern is that he has become increasingly irritable and angry. When he becomes angry the anger escalates to where he is loud, profane, accusatory and demanding. He begins making suicidal statements during his fits of rage. She complained that he has become "lazy". 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 She gave examples where he would throw items on the floor of the home rather take them to the trash basket. 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 He called the police after an incident where the dog made a mess after Stephan had left a dish with food on the floor. She stated that when he becomes particularly angry it escalates rapidly and he is unable to calm himself. Another recurrent theme custody of her son if they were to separate. He repeatedly makes statements that he will kill himself if he is not allowed to see his son. He has repeatedly threatened that if he were to lose custody of his son that he would "make sure" that she would not have custody. As a result of his recurrent suicidal statements she has locked away all the knives in the house and has hidden his medications. She is taking responsibility for administering his medications. He has had multiple admissions to this unit. This is his fifth over the last 12 months. He was last discharged from our unit in June 2020. During this admission he was transfered to the SICU following a grand mal seizure and CT findings of a subarachnoid hemorrhage. His brought him back to the emergency room the day after discharge. According to the EPS nurse notes the couple had an argument when his saw pictures of an ex-girlfriend on his computer. He alleged that she told him that he would never see his son again. He told her that if she took her son away he would kill himself. The police came to her house and took him to the hospital. He admitted making this statement but denied that he had suicidal intent or plan. We discharge him home without recommendation for psychiatric hospitalization. The police brought him back to the emergency room 3 days later on 07/05/2020 after his completed another petition. She stated that he was markedly angry and agitated to wear that she locked herself in the bathroom with her son. She requested admission to a different psychiatric facility because she felt that he was not receiving proper care on this psychiatric unit. He was admitted to [facility] in [place]. During that hospitalization he experienced grand mal seizures and was transferred to [facility]. He was placed on a treatment order and started on lithium while he was at [facility]. His complained that he is not been compliant with the lithium and he has not kept his appointments at [facility]. His stated that the therapist at [facility] at [place] is responsible for management of the involuntary order. HOSPITAL COURSE: We admitted him to the psychiatric unit voluntarily under the care of this automotive service writer. We provided a comprehensive biopsychosocial assessment. The medical surgery nurse completed initial physical exam and medical history and diagnosis chronic and uncontrolled seizures. Insurance Customer Service Specialist recommended continuing outpatient antiseizure medication including Tegretol-XR 400 mg at bedtime, Tegretol 200 mg every 12 hours, Vimpat 150 mg at bedtime, Lamictal 200 mg twice a day, phenobarbital 129.6 mg at bedtime and [id number] mg at bedtime. He attributed the admission to problems with obtaining a prescription for lithium; however his lithium level on admission was 1.0. His Ability as being level was 7.2 and his febrile but phenobarbital level was 23.6. Admission UDS was positive only for barbiturates. His serum alcohol level was negative. Resumed his outpatient dose of lithium carbonate 450 mg X a twice a day. He posed no management problem and had no episodes of behavioral dyscontrol. He was calm and cooperative throughout the hospital stay. He denied suicidal ideation soon after admission. We discussed his recurrent hospitalizations and his difficulty has been managing his anger. He was able to offer an alternative or "going for a walk." He plans to continue with outpatient treatment. During this admission [facility]. His total score was 18/30 and his Memory Index Score was 8/15. This score is consistent with moderate cognitive impairment. On the assessment he showed impairment with visual spatial executive functioning, language, abstraction and short-term memory. MENTAL STATUS ON DISCHARGE: He presented as casually groomed 30-year-old [place] ucasian male who was pleasant on approach. He made eye contact and appeared to attend to the interview. He had a distressed facial expression. He was alert and oriented to person, place and time. He showed psychomotor retardation and a slow spastic gait. His speech was dysarthric and at times very difficult to understand. His affect was depressed but reactive. He expressed suicidal thoughts and wishes. He denied homicidal ideation. He expressed feelings of hopelessness, helplessness or worthlessness. He did not express ideas reference, paranoid ideation or delusions. His thinking was concrete but his associations appeared organized and goal directed. He denied hallucinations did not appear to be responding to internal stimuli. DISPOSITION: Every came to his former address. His only psychotropic medication at discharge was lithium ex are 45th milligrams twice a day. The health care social worker will schedule a follow-up appointment at [facility] prior to discharge. Patient Condition at Discharge: Stable Plan - Discharge Summary Discharge Rx Participant: No New Discharge Prescriptions: Continue PHENobarbital 129.6 mg PO HS carBAMazepine [TEGretol XR] 400 mg PO HS Lacosamide [Vimpat] 150 mg PO BID lamoTRIgine [LaMICtal] 200 mg PO BID #0 Ibuprofen [Motrin] 800 mg PO Q8H PRN PRN Reason: Pain Xcopri Titration Pack See Taper PO HS carBAMazepine [TEGretol] 200 mg PO Q12H LORazepam [Ativan] 1 mg PO BID [place] Carbonate 450 mg PO BID #60 cap Discharge Medication List PHENobarbital 129.6 mg PO HS 10/19/18 [History] carBAMazepine [TEGretol XR] 400 mg PO HS 10/19/18 [History] Lacosamide [Vimpat] 150 mg PO BID 07/17/19 [History] lamoTRIgine [LaMICtal] 200 mg PO BID #0 06/28/20 [Rx] Ibuprofen [Motrin] 800 mg PO Q8H PRN 10/10/20 [History] LORazepam [Ativan] 1 mg PO BID 10/10/20 [History] Xcopri Titration Pack See Taper PO HS 10/10/20 [History] carBAMazepine [TEGretol] 200 mg PO Q12H 10/10/20 [History] Schaller Carbonate 450 mg PO BID #60 cap 11/06/20 [Rx] Follow up Appointment(s)/Referral(s): None,Stated [Primary Care Provider] - 1-2 days Activity/Diet/Wound Care/Special Instructions: Activity and diet as tolerated. Avoid the use of street drugs and alcohol. Take all medications as prescribed. When you are in need of refills on your medications please contact your medical provider and/or outpatient psychiatrist to have this done. Please go to scheduled outpatient appointment for aftercare treatment. If symptoms return or become worse, call the crisis line at and/or go to the nearest emergency room for evaluation. Discharge Disposition: HOME SELF-CARE
[2020-11-06 13:29] VITALS: TEMP 98.4
== END 2020-11-06 16:00 | disposition home or self-care (01) | DRG 884 ==
LOC: EC 20:39 → 3MHU 11-02 00:08
PROVIDERS: ADMIT Psychiatry & Neurology Psychiatry; ATTEND Psychiatry & Neurology Psychiatry
DX: F06.30 Mood disorder due to known physiological condition, unspecified (principal); F33.2 Major depressive disorder, recurrent severe without psychotic features; R45.851 Suicidal ideations; G40.409 Other generalized epilepsy and epileptic syndromes, not intractable, without status epilepticus; Z20.822 Contact with and (suspected) exposure to COVID-19; E07.9 Disorder of thyroid, unspecified; K21.9 Gastro-esophageal reflux disease without esophagitis; F41.9 Anxiety disorder, unspecified; R41.89 Other symptoms and signs involving cognitive functions and awareness; Z79.899 Other long term (current) drug therapy; Z90.49 Acquired absence of other specified parts of digestive tract; Z86.79 Personal history of other diseases of the circulatory system; Z63.0 Problems in relationship with spouse or partner; Z56.0 Unemployment, unspecified; Z98.890 Other specified postprocedural states; Z80.3 Family history of malignant neoplasm of breast
CPT/HCPCS: 36415; 80053; 80061; 80143; 80156; 80178; 80184; 80306; 80320; 80329; 82075; 83036; 84443; 85025; 87635; 93005; 99285

== ENCOUNTER 2020-11-13 15:06 | Emergency (ER) | payer MEDICARE, OTHER ==
[2020-11-13 15:21] VITALS: TEMP 99.6
--- NOTE | 2020-11-13 15:57 | XR ---
EXAMINATION TYPE: XR chest 2V DATE OF EXAM: 11/13/2020 COMPARISON: 10/04/2020 HISTORY: 30-year-old male with cough TECHNIQUE: PA and lateral views FINDINGS: The cardiomediastinal silhouette, aorta, and pulmonary vasculature are within normal limits. There is some patchy right infrahilar and posterior basilar opacity noted. No other consolidation or pleural effusion. IMPRESSION: Some patchy opacity in the right infrahilar and posterior basilar regions. Early pneumonia not exclud ed. Clinically correlate.
--- NOTE | 2020-11-13 16:54 | ED ---
General Adult HPI - General Chief complaint: Shortness of Breath Stated complaint: JAQUAN Time Seen by Provider: 11/13/20 15:27 Source: patient, RN notes reviewed Mode of arrival: ambulatory Limitations: no limitations - History of Present Illness Initial comments: 30-year-old male presents emergency from chief complaint of cough congestion shortness breath. Patient states started a few days ago. Patient states he feels achy. No abdominal pain no nausea and diarrhea constipation no back pain. - Related Data Home Medications Medication Instructions Recorded Confirmed PHENobarbital 129.6 mg PO HS 10/19/18 11/13/20 carBAMazepine [TEGretol XR] 400 mg PO HS 10/19/18 11/13/20 Lacosamide [Vimpat] 150 mg PO HS PRN 07/17/19 11/13/20 Ibuprofen [Motrin] 800 mg PO Q8H PRN 10/10/20 11/13/20 LORazepam [Ativan] 1 mg PO BID 10/10/20 11/13/20 carBAMazepine [TEGretol] 200 mg PO BID 10/10/20 11/13/20 [place] Carbonate 300 mg PO BID 11/13/20 11/13/20 [place] Carbonate Tabs 300mg 300 mg PO BID 11/13/20 11/13/20 Xcopri 150-200 Titration Pack See Taper PO DIRECTED 11/13/20 11/13/20 Previous Rx's Medication Instructions Recorded lamoTRIgine [LaMICtal] 200 mg PO BID #0 06/28/20 Azithromycin [Zithromax Z-pack (6 0 mg PO DIRECTED #1 pack 11/13/20 tabs)] Allergies Allergy/AdvReac Type Severity Reaction Status Date / Time No Known Allergies Allergy Verified 11/13/20 16:22 Review of Systems ROS Statement: Those systems with pertinent positive or pertinent negative responses have been documented in the HPI. ROS Other: All systems not noted in ROS Statement are negative. Past Medical History Past Medical History: GERD/Reflux, Seizure Disorder, Skin Disorder, Thyroid Disorder Additional Past Medical History / Comment(s): has history of epilepsy, hx grand mal seizures since childhood, migraines, acne, History of Any Multi-Drug Resistant Organisms: None Reported, Unobtainable Past Surgical History: Adenoidectomy, Appendectomy, Cholecystectomy, Tonsillectomy Additional Past Surgical History / Comment(s): oral surgery Past Anesthesia/Blood Transfusion Reactions: Previous Problems w/ Anesthesia Additional Past Anesthesia/Blood Transfusion Reaction / Comment(s): SLOW TO WAKE FROM ANESTHESIA" Past Psychological History: Anxiety, Depression Smoking Status: Never smoker Past Alcohol Use History: None Reported Past Drug Use History: None Reported - Past Family History Mother Family Medical History: Cancer Additional Family Medical History / Comment(s): breast cancer General Exam Limitations: no limitations General appearance: alert, in no apparent distress Head exam: Present: atraumatic, normocephalic, normal inspection Eye exam: Present: normal appearance, PERRL, EOMI. Absent: scleral icterus, conjunctival injection, periorbital swelling ENT exam: Present: normal exam, normal oropharynx, mucous membranes moist Neck exam: Present: normal inspection. Absent: tenderness, meningismus, lymphadenopathy Respiratory exam: Present: normal lung sounds bilaterally. Absent: respiratory distress, wheezes, rales, rhonchi, stridor Cardiovascular Exam: Present: regular rate, normal rhythm, normal heart sounds. Absent: systolic murmur, diastolic murmur, rubs, gallop, clicks GI/Abdominal exam: Present: soft, normal bowel sounds. Absent: distended, tenderness, guarding, rebound, rigid Course Vital Signs 11/13/20 15:19 Temperature 99.6 F Pulse Rate 107 H Respiratory 20 Rate Blood Pressure 151/77 O2 Sat by Pulse 100 Oximetry Medical Decision Making - Medical Decision Making Chest x-ray shows evidence of right perihilar pneumonia. Patient we given antibiotics. Patient follow-up with PCP and return for any worsening changes symptoms. - Lab Data Lab Results 11/13/20 Range/Units 15:34 Coronavirus (PCR) Not Detected (Not Detectd) Disposition Clinical Impression: Pneumonia Disposition: HOME SELF-CARE Condition: Stable Instructions (If sedation given, give patient instructions): Bacterial Pneumonia (ED) Additional Instructions: Please return to the Emergency Department if symptoms worsen or any other concerns. Prescriptions: Azithromycin [Zithromax Z-pack (6 tabs)] 0 mg PO DIRECTED #1 pack Is patient prescribed a controlled substance at d/c from ED?: No Referrals: None,Stated [Primary Care Provider] - 1-2 days Time of Disposition: 16:53
[2020-11-13 17:22] VITALS: BP 113/77; PULSE 64; RESP 18
== END 2020-11-13 17:22 | disposition home or self-care (01) ==
LOC: EC 15:06 → EEVIPCON 15:06 → EC 17:22
DX: J18.9 Pneumonia, unspecified organism (principal); Z20.822 Contact with and (suspected) exposure to COVID-19; G40.909 Epilepsy, unspecified, not intractable, without status epilepticus; F41.9 Anxiety disorder, unspecified; F32.9 Major depressive disorder, single episode, unspecified; Z79.899 Other long term (current) drug therapy
CPT/HCPCS: 71046; 87635; 99285

== ENCOUNTER → 2020-12-26 | Outpatient (CLI) | payer MEDICARE, OTHER | END | disposition home or self-care (01) | LOC: LABWHC1 13:42 | PROVIDERS: ATTEND Psychiatry & Neurology Psychiatry | DX: F31.4 Bipolar disorder, current episode depressed, severe, without psychotic features (principal); F81.81 Disorder of written expression; F48.2 Pseudobulbar affect | CPT/HCPCS: 36415; 80178 ==

== ENCOUNTER 2021-03-09 12:53 | Emergency (ER) | payer MEDICARE, OTHER ==
[2021-03-09] MEDS ORDERED: LORazepam 2 MG/ML INJ IV STA ×2 (13:02→14:33)
[2021-03-09] MEDS ORDERED: SODIUM CHLORIDE 0.9% 1,000 ML IV STA (13:02)
--- NOTE | 2021-03-09 13:22 | ED ---
General Adult HPI - General Chief complaint: Seizure Stated complaint: Seizure Time Seen by Provider: 03/09/21 13:00 Source: patient, EMS, RN notes reviewed, old records reviewed Mode of arrival: EMS Limitations: altered mental status - History of Present Illness Initial comments: 30-year-old male with history of seizures presents with tonic-clonic seizure and suspected absence seizure. Patient is unable to contribute to the history. He was brought in by EMS after initial call was for stating that he felt like he was going to seize. He did have a tonic-clonic seizure for EMS. Unknown what medications this patient is currently on for seizure prophylaxis. There was no reported injury. Patient had vomited according to EMS and may have aspirated. - Related Data Home Medications Medication Instructions Recorded Confirmed PHENobarbital 129.6 mg PO HS 10/19/18 03/09/21 carBAMazepine [TEGretol XR] 400 mg PO HS 10/19/18 03/09/21 LORazepam [Ativan] 1 mg PO BID 10/10/20 03/09/21 carBAMazepine [TEGretol] 200 mg PO BID 10/10/20 03/09/21 [place] Carbonate 300 mg PO BID 11/13/20 03/09/21 Cenobamate [Xcopri] 200 mg PO DAILY 03/09/21 03/09/21 Lewisberry Carbonate [Lewisberry 450 mg PO BID 03/09/21 03/09/21 Carbonate ER] Previous Rx's Medication Instructions Recorded lamoTRIgine [LaMICtal] 200 mg PO BID #0 06/28/20 Allergies Allergy/AdvReac Type Severity Reaction Status Date / Time No Known Allergies Allergy Verified 03/09/21 13:40 Review of Systems ROS Statement: Those systems with pertinent positive or pertinent negative responses have been documented in the HPI. ROS Other: All systems not noted in ROS Statement are negative. Past Medical History Past Medical History: GERD/Reflux, Seizure Disorder, Skin Disorder, Thyroid Disorder Additional Past Medical History / Comment(s): has history of epilepsy, hx grand mal seizures since childhood, migraines, acne, History of Any Multi-Drug Resistant Organisms: None Reported, Unobtainable Past Surgical History: Adenoidectomy, Appendectomy, Cholecystectomy, Tonsillectomy Additional Past Surgical History / Comment(s): oral surgery Past Anesthesia/Blood Transfusion Reactions: Previous Problems w/ Anesthesia Additional Past Anesthesia/Blood Transfusion Reaction / Comment(s): SLOW TO WAKE FROM ANESTHESIA" Past Psychological History: Anxiety, Depression Smoking Status: Never smoker Past Alcohol Use History: None Reported Past Drug Use History: None Reported - Past Family History Mother Family Medical History: Cancer Additional Family Medical History / Comment(s): breast cancer General Exam Limitations: altered mental status General appearance: lethargic Head exam: Present: atraumatic, normocephalic Eye exam: Present: normal appearance, PERRL ENT exam: Present: normal exam Neck exam: Present: normal inspection. Absent: tenderness, meningismus Respiratory exam: Present: rhonchi. Absent: respiratory distress Cardiovascular Exam: Present: regular rate, normal rhythm GI/Abdominal exam: Present: soft. Absent: distended, tenderness, guarding Extremities exam: Present: normal inspection, normal capillary refill. Absent: pedal edema Neurological exam: Absent: alert, motor sensory deficit Psychiatric exam: Present: flat affect Skin exam: Present: warm, dry, intact. Absent: cyanosis, diaphoretic Course Vital Signs 03/09/21 03/09/21 03/09/21 13:02 13:30 15:00 Temperature 98.4 F Pulse Rate 73 98 77 Respiratory 18 28 H 17 Rate Blood Pressure 112/88 112/88 114/69 O2 Sat by Pulse 98 95 98 Oximetry 03/09/21 15:30 Temperature Pulse Rate 68 Respiratory 16 Rate Blood Pressure 106/67 O2 Sat by Pulse 100 Oximetry - Reevaluation(s) Reevaluation #1: 03/09/21 1530 SHEENT able to transfer to bedside commode. He is lethargic, postictal. He is moving all limbs symmetrically. Reevaluation #2: 03/09/21 17:10 Patient will require observation and this institution currently doesn't have neurology coverage. I did discuss case with [place] emergency department and spoke with Dr. Pimentel who will accept transfer. EKG Findings - EKG Comments: EKG Findings:: Normal sinus rhythm, rate of 80, MI interval 192, QRS duration 104, QTC 440 ST segment elevation. Medical Decision Making - Medical Decision Making 30-year-old male with recurrent seizure. Patient had been given a total 4 mg of Ativan while in the emergency department. No further seizure activity. I did perform a head CT given the prolonged postictal period, this is negative for intracranial hemorrhage or mass effect. Chest x-ray showed a questionable basilar infiltrate. There was history of vomiting and concern for aspiration by EMS and the patient is covered with a dose of Unasyn. He remains lethargic and postictal, will require admission however there is no neurology coverage at this institution. He will be transferred to [place] where he is known. - Lab Data Result diagrams: 03/09/21 13:12 03/09/21 13:12 Lab Results 03/09/21 03/09/21 Range/Units 13:12 13:12 WBC 6.6 (3.8-10.6) k/uL RBC 4.66 (4.30-5.90) m/uL Hgb 14.6 (13.0-17.5) gm/dL Hct 43.9 (39.0-53.0) % MCV 94.1 (80.0-100.0) fL MCH 31.3 (25.0-35.0) pg MCHC 33.2 (31.0-37.0) g/dL RDW 12.8 (11.5-15.5) % Plt Count 213 (150-450) k/uL MPV 8.7 Neutrophils % 56 % Lymphocytes % 24 % Monocytes % 5 % Eosinophils % 13 % Basophils % 1 % Neutrophils # 3.7 (1.3-7.7) k/uL Lymphocytes # 1.6 (1.0-4.8) k/uL Monocytes # 0.4 (0-1.0) k/uL Eosinophils # 0.9 H (0-0.7) k/uL Basophils # 0.1 (0-0.2) k/uL Sodium 140 (137-145) mmol/L Potassium 4.1 (3.5-5.1) mmol/L Chloride 108 H (98-107) mmol/L Carbon Dioxide 24 (22-30) mmol/L Anion Gap 8 mmol/L BUN 6 L (9-20) mg/dL Creatinine 0.77 (0.66-1.25) mg/dL Est GFR (CKD-EPI)AfAm >90 (>60 ml/min/1.73 sqM) Est GFR (CKD-EPI)NonAf >90 (>60 ml/min/1.73 sqM) Glucose 114 H (74-99) mg/dL Calcium 9.5 (8.4-10.2) mg/dL Magnesium 2.0 (1.6-2.3) mg/dL Total Bilirubin 0.3 (0.2-1.3) mg/dL AST 21 (17-59) U/L ALT 13 (4-49) U/L Alkaline Phosphatase 126 (38-126) U/L Total Protein 7.5 (6.3-8.2) g/dL Albumin 4.5 (3.5-5.0) g/dL Serum Alcohol <10 mg/dL Disposition Clinical Impression: Seizure, Status epilepticus Disposition: OTHER INSTITUTION NOT DEFINED Instructions (If sedation given, give patient instructions): Seizure/Epilepsy Discharge Instructions & Follow-Up Is patient prescribed a controlled substance at d/c from ED?: No Referrals: None,Stated [Primary Care Provider] - 1-2 days Mary Lou Daniel MD [REFERRING] - 1-2 days Time of Disposition: 17:12 - Out of Hospital Transfer - Req. Specs Out of Hospital Transfer - Requested Specifics: Other Emergency Center ([facility])
[2021-03-09 13:35] LABS: ALT 13 U/L (4-49); AST 21 U/L (17-59); African American GFR (CKD) >90 (>60 ml/min/1.73 sqM); Albumin 4.5 g/dL (3.5-5.0); Alcohol <10 mg/dL; Alkaline Phosphatase 126 U/L (38-126); Anion Gap 8 mmol/L; Blood Urea Nitrogen 6 mg/dL (9-20); Calcium 9.5 mg/dL (8.4-10.2); Carbon Dioxide 24 mmol/L (22-30); Chloride 108 mmol/L (98-107); Glucose 114 mg/dL (74-99); Non-African American GFR(CKD) >90 (>60 ml/min/1.73 sqM); Potassium 4.1 mmol/L (3.5-5.1); Sodium 140 mmol/L (137-145); Total Bilirubin 0.3 mg/dL (0.2-1.3); Total Protein 7.5 g/dL (6.3-8.2)
[2021-03-09 13:39] LABS: Basophils # (A) 0.1 k/uL (0-0.2); Basophils % (A) 1 %; Eosinophils # (A) 0.9 k/uL (0-0.7); Eosinophils % (A) 13 %; HCT 43.9 % (39.0-53.0); HGB 14.6 gm/dL (13.0-17.5); Lymphocytes # (A) 1.6 k/uL (1.0-4.8); Lymphocytes % (A) 24 %; MCH 31.3 pg (25.0-35.0); MCHC 33.2 g/dL (31.0-37.0); MCV 94.1 fL (80.0-100.0); Mean Platelet Volume 8.7; Monocytes # (A) 0.4 k/uL (0-1.0); Monocytes % (A) 5 %; Neutrophils # (A) 3.7 k/uL (1.3-7.7); Neutrophils % (A) 56 %; Platelet Count 213 k/uL (150-450); RBC 4.66 m/uL (4.30-5.90); RDW 12.8 % (11.5-15.5); WBC 6.6 k/uL (3.8-10.6)
[2021-03-09] MEDS ORDERED: ONDANSETRON 4 MG/2 ML VIAL IVP STA (13:46)
--- NOTE | 2021-03-09 14:39 | CT ---
EXAMINATION TYPE: CT brain wo con DATE OF EXAM: 03/09/2021 COMPARISON: 10/04/2020 INDICATION: Seizure activity. DLP: 1144.4 mGycm, Automated exposure control for dose reduction was used. CONTRAST: None CT of the brain is performed utilizing 3 mm thick sections through the posterior fossa and 3 mm thick sections through the remaining calvarium. Study is performed within 24 hours of arrival to the hosp ital. No abnormal hyperdensity is present to suggest an acute intracranial hemorrhage. No mass lesion is evident. No acute infarcts are evident. Ventricles and sulci are appropriate for the patient age. Paranasal sinuses and mastoid air cells within the [id number] are clear. IMPRESSIONS: 1. No acute intracranial process.
--- NOTE | 2021-03-09 14:42 | XR ---
EXAMINATION TYPE: XR chest 2V DATE OF EXAM: 03/09/2021 COMPARISON: 11/13/2020 HISTORY: 30-year-old male shortness of breath, possible aspiration TECHNIQUE: AP and lateral views FINDINGS: Heart upper limits of normal in size. Aorta and pulmonary vasculature within normal limits. The later al view shows patchy posterior basilar opacity. IMPRESSION: Patchy posterior basilar opacity on the lateral view. Unable to exclude early developing infiltrate.
[2021-03-09] MEDS ORDERED: AMPICILLIN-SULBACTAM 3 GM in SODIUM CHLORIDE 0.9% 100 ML IVPB STA (17:11)
[2021-03-09] MEDS ORDERED: SODIUM CHLORIDE 0.9% 1,000 ML IV SCH (17:15)
[2021-03-09 17:33] VITALS: RESP 18
[2021-03-09 18:22] VITALS: BP 110/78; PULSE 98; TEMP 97.8
== END 2021-03-09 19:10 | disposition other institution (70) ==
LOC: EC 12:53
DX: G40.901 Epilepsy, unspecified, not intractable, with status epilepticus (principal); R53.83 Other fatigue; Z79.899 Other long term (current) drug therapy
CPT/HCPCS: 99285; 96365; 96375; 96361; 36415; 93005; 80053; 83735; 85025; 71046; 70450; 96374; G0480; J2060; J2405; J0295; 80320

== ENCOUNTER 2021-03-14 03:47 | Observation (INO) | payer MEDICARE, OTHER ==
[2021-03-14] MEDS ORDERED: ONDANSETRON 4 MG/2 ML VIAL IVP STA (03:51)
[2021-03-14] MEDS ORDERED: SODIUM CHLORIDE 0.9% 1,000 ML IV STA (03:56)
[2021-03-14] MEDS ORDERED: levETIRAcetam IV 1,000 MG in SALINE 1 100ML.BAG IVPB STA (03:56)
[2021-03-14] MEDS ORDERED: PROCHLORPERAZINE INJ 10 MG/2 ML VIAL IVP STA (03:57)
--- NOTE | 2021-03-14 03:59 | ED ---
Altered Mental Status HPI - General Stated Complaint: Altered mental status Time Seen by Provider: 03/14/21 03:53 Source: RN notes reviewed, old records reviewed, Caregiver Mode of arrival: EMS Limitations: altered mental status, physical limitation - History of Present Illness Initial Comments: This is a 30-year-old male who is a poor strain secondary to responsiveness level. Patient having decreased those responsiveness weakness. Patient having seizures at home adequate seizure medication patient had EMS called by family due to his level of responsiveness. Patient is not giving history here in the ER heart itself is postictal alert is refusing. History obtained from EMS and patient's on the phone MD Complaint: altered mental status, confusion, decreased responsiveness, weakness -: days(s) Severity: moderate Consistency of Symptoms: constant Context: history of similar presentation, seizure disorder Associated Symptoms: denies other symptoms - Related Data Home Medications Medication Instructions Recorded Confirmed PHENobarbital 129.6 mg PO HS 10/19/18 03/09/21 carBAMazepine [TEGretol XR] 400 mg PO HS 10/19/18 03/09/21 LORazepam [Ativan] 1 mg PO BID 10/10/20 03/09/21 carBAMazepine [TEGretol] 200 mg PO BID 10/10/20 03/09/21 [place] Carbonate 300 mg PO BID 11/13/20 03/09/21 Cenobamate [Xcopri] 200 mg PO DAILY 03/09/21 03/09/21 [place] Carbonate [[place] 450 mg PO BID 03/09/21 03/09/21 Carbonate ER] Previous Rx's Medication Instructions Recorded lamoTRIgine [LaMICtal] 200 mg PO BID #0 06/28/20 Allergies Allergy/AdvReac Type Severity Reaction Status Date / Time No Known Allergies Allergy Verified 03/14/21 04:15 Review of Systems ROS Statement: Those systems with pertinent positive or pertinent negative responses have been documented in the HPI. ROS Other: All systems not noted in ROS Statement are negative. Past Medical History Past Medical History: GERD/Reflux, Seizure Disorder, Skin Disorder, Thyroid Disorder Additional Past Medical History / Comment(s): has history of epilepsy, hx grand mal seizures since childhood, migraines, acne, History of Any Multi-Drug Resistant Organisms: None Reported, Unobtainable Past Surgical History: Adenoidectomy, Appendectomy, Cholecystectomy, Tonsillectomy Additional Past Surgical History / Comment(s): oral surgery Past Anesthesia/Blood Transfusion Reactions: Previous Problems w/ Anesthesia Additional Past Anesthesia/Blood Transfusion Reaction / Comment(s): SLOW TO WAKE FROM ANESTHESIA" Past Psychological History: Anxiety, Depression Smoking Status: Never smoker Past Alcohol Use History: None Reported Past Drug Use History: None Reported - Past Family History Mother Family Medical History: Cancer Additional Family Medical History / Comment(s): breast cancer General Exam Limitations: altered mental status, physical limitation General appearance: alert, lethargic, obtunded Head exam: Present: atraumatic, normocephalic, normal inspection Eye exam: Present: normal appearance, PERRL, EOMI. Absent: scleral icterus, conjunctival injection, periorbital swelling ENT exam: Present: normal exam, mucous membranes moist Neck exam: Present: normal inspection. Absent: tenderness, meningismus, lymphadenopathy Respiratory exam: Present: normal lung sounds bilaterally. Absent: respiratory distress, wheezes, rales, rhonchi, stridor Cardiovascular Exam: Present: regular rate, normal rhythm, normal heart sounds. Absent: systolic murmur, diastolic murmur, rubs, gallop, clicks GI/Abdominal exam: Present: soft, normal bowel sounds. Absent: distended, tenderness, guarding, rebound, rigid Extremities exam: Present: normal inspection, full ROM, normal capillary refill. Absent: tenderness, pedal edema, joint swelling, calf tenderness Back exam: Present: normal inspection Neurological exam: Present: alert, oriented X3, CN II-XII intact Psychiatric exam: Present: normal affect, normal mood Skin exam: Present: warm, dry, intact, normal color. Absent: rash Course Vital Signs 03/14/21 03/14/21 04:02 04:15 Temperature 98.6 F Pulse Rate 79 68 Respiratory 18 18 Rate Blood Pressure 135/88 125/90 O2 Sat by Pulse 95 98 Oximetry - Reevaluation(s) Reevaluation #1: 03/14/21 05:09 Medical record is reviewed Reevaluation #2: 03/14/21 05:09 No change in patient's mental status here in the ER Reevaluation #3: 03/14/21 05:09 Patient will be admitted for neurological evaluation - Consultations Consultation #1: Spoke with [facility] okay to admit this patient Medical Decision Making - Medical Decision Making 4 male DF for evaluation patient altered. This isn't pulsatile stay here in the ER, we will admit for neurology to evaluate - Lab Data Result diagrams: 03/14/21 04:23 03/14/21 04:23 Lab Results 03/14/21 03/14/21 03/14/21 Range/Units 03:55 04:20 04:23 WBC 7.7 (3.8-10.6) k/uL RBC 4.49 (4.30-5.90) m/uL Hgb 14.0 (13.0-17.5) gm/dL Hct 42.0 (39.0-53.0) % MCV 93.5 (80.0-100.0) fL MCH 31.3 (25.0-35.0) pg MCHC 33.5 (31.0-37.0) g/dL RDW 12.6 (11.5-15.5) % Plt Count 258 (150-450) k/uL MPV 6.8 Neutrophils % 51 % Lymphocytes % 31 % Monocytes % 5 % Eosinophils % 11 % Basophils % 1 % Neutrophils # 3.9 (1.3-7.7) k/uL Lymphocytes # 2.4 (1.0-4.8) k/uL Monocytes # 0.4 (0-1.0) k/uL Eosinophils # 0.9 H (0-0.7) k/uL Basophils # 0.1 (0-0.2) k/uL Sodium (137-145) mmol/L Potassium (3.5-5.1) mmol/L Chloride (98-107) mmol/L Carbon Dioxide (22-30) mmol/L Anion Gap mmol/L BUN (9-20) mg/dL Creatinine (0.66-1.25) mg/dL Est GFR (CKD-EPI)AfAm (>60 ml/min/1.73 sqM) Est GFR (CKD-EPI)NonAf (>60 ml/min/1.73 sqM) Glucose (74-99) mg/dL POC Glucose (mg/dL) 124 H (75-99) mg/dL POC Glu Dipping Machine Operator ID Aydee Yo Calcium (8.4-10.2) mg/dL Magnesium 2.0 (1.6-2.3) mg/dL Total Bilirubin (0.2-1.3) mg/dL AST (17-59) U/L ALT (4-49) U/L Alkaline Phosphatase (38-126) U/L Creatine Kinase (55-170) U/L Total Protein (6.3-8.2) g/dL Albumin (3.5-5.0) g/dL Lipase (23-300) U/L Salicylates mg/dL Acetaminophen ug/mL Serum Alcohol mg/dL 03/14/21 Range/Units 04:23 WBC (3.8-10.6) k/uL RBC (4.30-5.90) m/uL Hgb (13.0-17.5) gm/dL Hct (39.0-53.0) % MCV (80.0-100.0) fL MCH (25.0-35.0) pg MCHC (31.0-37.0) g/dL RDW (11.5-15.5) % Plt Count (150-450) k/uL MPV Neutrophils % % Lymphocytes % % Monocytes % % Eosinophils % % Basophils % % Neutrophils # (1.3-7.7) k/uL Lymphocytes # (1.0-4.8) k/uL Monocytes # (0-1.0) k/uL Eosinophils # (0-0.7) k/uL Basophils # (0-0.2) k/uL Sodium 139 (137-145) mmol/L Potassium 3.8 (3.5-5.1) mmol/L Chloride 108 H (98-107) mmol/L Carbon Dioxide 21 L (22-30) mmol/L Anion Gap 10 mmol/L BUN 7 L (9-20) mg/dL Creatinine 0.73 (0.66-1.25) mg/dL Est GFR (CKD-EPI)AfAm >90 (>60 ml/min/1.73 sqM) Est GFR (CKD-EPI)NonAf >90 (>60 ml/min/1.73 sqM) Glucose 125 H (74-99) mg/dL POC Glucose (mg/dL) (75-99) mg/dL POC Glu Dipping Machine Operator ID Calcium 9.1 (8.4-10.2) mg/dL Magnesium (1.6-2.3) mg/dL Total Bilirubin 0.3 (0.2-1.3) mg/dL AST 34 (17-59) U/L ALT 17 (4-49) U/L Alkaline Phosphatase 118 (38-126) U/L Creatine Kinase 258 H (55-170) U/L Total Protein 7.5 (6.3-8.2) g/dL Albumin 4.5 (3.5-5.0) g/dL Lipase 64 (23-300) U/L Salicylates <1.0 mg/dL Acetaminophen <10.0 ug/mL Serum Alcohol <10 mg/dL - EKG Data -: EKG Interpreted by Me (EKG is sinus rhythm 64 NH 192 QRS 106 QTc 427) - Radiology Data Radiology results: report reviewed (CT brain is negative for acute disease), image reviewed Disposition Clinical Impression: Depression, Seizure disorder, Postictal state, Altered mental state Disposition: ADMITTED IP TO THIS HOSP Condition: Fair Is patient prescribed a controlled substance at d/c from ED?: No Referrals: None,Stated [Primary Care Provider] - 1-2 days
[2021-03-14 04:11] LABS: Glucose,Whole Blood 124 mg/dL (75-99)
[2021-03-14 04:44] LABS: Basophils # (A) 0.1 k/uL (0-0.2); Basophils % (A) 1 %; Eosinophils # (A) 0.9 k/uL (0-0.7); Eosinophils % (A) 11 %; Lymphocytes # (A) 2.4 k/uL (1.0-4.8); Lymphocytes % (A) 31 %; MCH 31.3 pg (25.0-35.0); MCHC 33.5 g/dL (31.0-37.0); MCV 93.5 fL (80.0-100.0); Mean Platelet Volume 6.8; Monocytes # (A) 0.4 k/uL (0-1.0); Monocytes % (A) 5 %; Neutrophils # (A) 3.9 k/uL (1.3-7.7); Neutrophils % (A) 51 %; Platelet Count 258 k/uL (150-450); RBC 4.49 m/uL (4.30-5.90); RDW 12.6 % (11.5-15.5); WBC 7.7 k/uL (3.8-10.6)
[2021-03-14 04:57] LABS: ALT 17 U/L (4-49); AST 34 U/L (17-59); Acetaminophen <10.0 ug/mL; African American GFR (CKD) >90 (>60 ml/min/1.73 sqM); Albumin 4.5 g/dL (3.5-5.0); Alcohol <10 mg/dL; Alkaline Phosphatase 118 U/L (38-126); Anion Gap 10 mmol/L; Blood Urea Nitrogen 7 mg/dL (9-20); Calcium 9.1 mg/dL (8.4-10.2); Carbon Dioxide 21 mmol/L (22-30); Chloride 108 mmol/L (98-107); Creatine Kinase 258 U/L (55-170); Glucose 125 mg/dL (74-99); Lipase 64 U/L (23-300); Non-African American GFR(CKD) >90 (>60 ml/min/1.73 sqM); Potassium 3.8 mmol/L (3.5-5.1); Salicylate <1.0 mg/dL; Sodium 139 mmol/L (137-145); Total Bilirubin 0.3 mg/dL (0.2-1.3); Total Protein 7.5 g/dL (6.3-8.2)
[2021-03-14 05:09] LABS: Creatine Kinase MB 1.5 ng/mL (0.0-2.4); Troponin I <0.012 ng/mL (0.000-0.034)
--- NOTE | 2021-03-14 05:20 | CT ---
EXAMINATION TYPE: CT brain wo con DATE OF EXAM: 03/14/2021 COMPARISON: 03/09/2021 HISTORY: ams/vomiting. prior on PACS CT DLP: 1098.4 mGycm Automated exposure control for dose reduction was used. Ventricles and sulci appear normal. There is no mass effect nor midline shift. There is no sign of in tracranial hemorrhage. There is some mucosal thickening in the sphenoid and ethmoid sinuses. The calv arium is intact. Skull base is intact. IMPRESSION: There is some sinusitis not significantly different than recent exam. No acute intracranial abnormali ty.
[2021-03-14] MEDS ORDERED: NALOXONE 0.4 MG/ML 1 ML VIAL IV PRN (06:02)
[2021-03-14] MEDS ORDERED: carBAMazepine 200 MG TAB PO SCH ×3 (09:30→09:35)
[2021-03-14] MEDS ORDERED: CENOBAMATE PO SCH (09:30)
[2021-03-14] MEDS: carBAMazepine 400 MG TAB.ER.12H PO SCH (10:00)
[2021-03-14] MEDS: LITHIUM CARBONATE ER 450 MG TABLET.ER PO SCH ×2 (11:02→11:05)
[2021-03-14] MEDS: LITHIUM CARBONATE 300 MG CAP PO SCH ×2 (11:02→11:05)
[2021-03-14 11:40] LABS: Amphetamine Screen,Urine Not Detected (NotDetected); Barbiturate Screen,Urine Detected (NotDetected); Benzodiazepines Screen,Urine Not Detected (NotDetected); Cocaine Screen,Urine Not Detected (NotDetected); Methadone Screen, Urine Not Detected (NotDetected); Opiate Screen,Urine Not Detected (NotDetected); Oxycodone Screen, Urine Not Detected (NotDetected); Phencyclidine Screen,Urine Not Detected (NotDetected); Tricyclic Antidepressant,Urine Not Detected (NotDetected); Urn Cannabinoid Scrn Not Detected (NotDetected)
[2021-03-14 11:42] VITALS: PULSE 80
--- NOTE | 2021-03-14 13:05 | P.CNNES ---
History of Present Illness Consult date: 03/14/21 Requesting physician: Gavin Grant Reason for Consult: Seizure, altered mental status, post ictal History of Present Illness: Patient is a 30-year-old male with history of seizure disorder since he was 18 months old, currently follows up with Dr. Chadwick at [facility], came to the hospital early this morning at 3:47 AM by ambulance for breakthrough seizure. Patient apparently was recently hospitalized at [facility] for 3 days for recurrent seizures 5, discharged last 03/11/2021. Patient states that he was recommended to increase dose of the new medication Xcopri to 250 mg (currently taking 200 mg daily), but the pharmacy did not have this does available and he was still on 200 mg daily. He started having profuse nausea vomiting which typically occurs before his seizures. He then had a seizure and was brought to the hospital. Per EMS flow sheet when they arrived, patient was alert and oriented 1, GCS 12, sitting on bathroom floor vomiting in the toilet. Patient's stated that he has severe epilepsy and takes his medication regularly. states that since early yesterday patient has been "zoned out", not responding and vomiting on and off. About an hour prior, patient woke up and has been vomiting since. Patient's mentioned that this is how patient presents before having a tonic-clonic seizure but he has not had a seizure during this time period. EKG shows sinus rhythm. Patient was given Zofran and by his without improvement. Patient's blood pressure was 130/91 pulse rate 89, respirations 16, saturation 96%. Blood sugar was 112. On arrival to the ER blood pressure was 135/88 in temperature 98.6. Patient at home takes Lamictal 200 mg twice a day, Tegretol-XR 400 mg at bedtime, Tegretol 200 mg twice a day and Cenobamate (Xcopri) 200 mg daily. Patient also on lithium carbonate ER 450 mg twice a day and lithium 300 mg twice a day. Also on lorazepam 1 mg twice a day. Blood test shows normal CBC, PT/PTT, normal electrolytes, BUN 7, creatinine 0.73, normal hepatic panel. B12 605, folate 6.5 on 10/05/2020 TFTs normal. Blood alcohol level <10, lithium 0.8, Balderrama virus PCR negative. Patient has been seen by Dr. Magno Thakkar in May 2020, when it was felt patient was missing doses of his seizure medication. He was on Vimpat at that time along with all other medications. Vimpat was weaned off and was replaced by Xcopri as mentioned above. Patient had a normal EEG on 03/09/2020. Patient has not had any more seizures since arrival to the hospital. No more nausea vomiting. He is slightly groggy. Review of Systems Patient denies any double vision, numbness tingling focal weakness. Complains of fatigue. Denies any nausea vomiting or diarrhea at this time. Patient did have some chest pain with previous admission last week at [facility]. At present not complaining of chest pain or shortness of breath. Denies abdominal pain. No fever or chills or rash. Patient does have a history of acne. No arthritis. Past Medical History Past Medical History: GERD/Reflux, Seizure Disorder, Skin Disorder, Thyroid Disorder Additional Past Medical History / Comment(s): has history of epilepsy, hx grand mal seizures since childhood, migraines, acne, History of Any Multi-Drug Resistant Organisms: None Reported, Unobtainable Past Surgical History: Adenoidectomy, Appendectomy, Cholecystectomy, Tonsillectomy Additional Past Surgical History / Comment(s): oral surgery Past Anesthesia/Blood Transfusion Reactions: Previous Problems w/ Anesthesia Additional Past Anesthesia/Blood Transfusion Reaction / Comment(s): SLOW TO WAKE FROM ANESTHESIA" Past Psychological History: Anxiety, Depression Smoking Status: Never smoker Past Alcohol Use History: None Reported Past Drug Use History: None Reported - Past Family History Mother Family Medical History: Cancer Additional Family Medical History / Comment(s): breast cancer Medications and Allergies Home Medications Medication Instructions Recorded Confirmed Type PHENobarbital 129.6 mg PO HS 10/19/18 03/14/21 History carBAMazepine [TEGretol XR] 400 mg PO HS 10/19/18 03/14/21 History lamoTRIgine [LaMICtal] 200 mg PO BID #0 06/28/20 03/14/21 Rx LORazepam [Ativan] 1 mg PO BID 10/10/20 03/14/21 History carBAMazepine [TEGretol] 200 mg PO BID 10/10/20 03/14/21 History [place] Carbonate 300 mg PO BID 11/13/20 03/14/21 History Cenobamate [Xcopri] 200 mg PO DAILY 03/09/21 03/14/21 History [place] Carbonate [[place] 450 mg PO BID 03/09/21 03/14/21 History Carbonate ER] Allergies Allergy/AdvReac Type Severity Reaction Status Date / Time No Known Allergies Allergy Verified 03/14/21 06:12 Physical Examination - Vital Signs Vital Signs: Vital Signs Temp Pulse Resp BP Pulse Ox 03/14/21 08:53 75 16 107/73 97 03/14/21 07:41 72 16 109/73 97 03/14/21 05:15 66 18 114/81 96 03/14/21 04:15 68 18 125/90 98 03/14/21 04:02 98.6 F 79 18 135/88 95 Intake and Output 03/13/21 03/14/21 03/14/21 22:59 06:59 14:59 Other: Weight 95.254 kg Patient is a young male, in no acute distress. Patient is slightly groggy. Patient is mildly groggy, but awake oriented to time place and person. Speech and language functions are normal. Attention, concentration and fund of knowledge is adequate. On cranial examination, pupils are round and reacting to light, visual moya are full on confrontation, extraocular muscles are intact with no nystagmus. Face is symmetric, tongue protrudes to the midline. Palatal elevation and sensation normal, hearing and shoulder shrug normal, facial sensation normal. Shoulder shrug normal. On muscle strength testing, there is no pronator drift and the strength is normal in arms and legs distally and proximally. Deep tendon reflexes are 2+ and symmetric and plantars downgoing. Sensory to touch is equal with no neglect. Cerebellar function showed no ataxia for [id number] testing. No dysdiadochokinesia. Tone and bulk of muscles normal. Gait deferred. On general examination, there is no carotid bruit or murmur, S1-S2 audible. Abdomen is soft nontender. Chest is clear. Peripheral pulses are present. No edema. Results - Laboratory Findings CBC and BMP: 03/14/21 04:23 03/14/21 04:23 Abnormal Lab Findings: Abnormal Labs 03/14/21 03/14/21 03/14/21 03:55 04:23 04:23 Eosinophils # 0.9 H Chloride 108 H Carbon Dioxide 21 L BUN 7 L Glucose 125 H POC Glucose (mg/dL) 124 H Creatine Kinase 258 H Assessment and Plan Assessment: * Long-standing history of seizure disorder, came with breakthrough seizure. * Intractable, episodic nausea vomiting, unclear etiology. Uncertain if is a migraine variant. * Anxiety disorder Plan: * Patient is already on optimal doses of seizure medications including Lamictal 200 mg twice a day, Tegretol-XR 400 mg at bedtime, carbamazepine 200 mg twice a day, phenobarbital 129.6 mg daily and Xcopri 200 mg daily. He is supposed to increase dose of Xcopri to 250 mg from today, if now available at the pharmacy (due to a brand-new medication, not available routinely in pharmacies). Patient states he has an appointment with nurse practitioner with his neurologist Dr. Rodriguez tomorrow morning. He does not want to make any changes in his seizure medications. Patient's nausea and vomiting has resolved. No further seizures noted since he arrived to the hospital. Neurologically clear for discharge, if patient's mentation returns back to normal. * Patient and his were informed of [place] state law of no driving unless seizure free for 6 months, climbing ladders, operate dangerous machinery or unsupervised swimming.
--- NOTE | 2021-03-14 13:31 | P.HPIM ---
History of Present Illness 30-year-old male with known history of seizure disorder when he was diagnosed when he was 17 years old came male in for possible breakthrough seizure. Patient had on which is her nausea and vomiting followed by generalized weakness and tiredness. Patient presently pretty to be postictal although patient did not have any seizure-like activity loss of bowel or bladder incontinence. Patient was a recently in this hospital. Patient on multiple medications including Lamicta,l Tegretol, cenobate , dose of which was increased by his lipid blood pathologist from 200 to 250 mg. Patient was evaluated by neurology in the recommending that patient get his increase the dose of cenobamate and patient can be discharged to from neurological perspective and patient will follow-up with the his neurologist. Patient is insisting on going home as soon as possible. Review of Systems REVIEW OF SYSTEMS: CONSTITUTIONAL: No fever, no malaise, no fatigue. HEENT: No recent visual problems or hearing problems. Denied any sore throat. CARDIOVASCULAR: No chest pain, orthopnea, PND, no palpitations, no syncope. PULMONARY: No shortness of breath, no cough, no hemoptysis. GASTROINTESTINAL: No diarrhea, no nausea, no vomiting, no abdominal pain. NEUROLOGICAL: No headaches, no weakness, no numbness. HEMATOLOGICAL: Denies any bleeding or petechiae. GENITOURINARY: Denies any burning micturition, frequency, or urgency. MUSCULOSKELETAL/RHEUMATOLOGICAL: Denies any joint pain, swelling, or any muscle pain. ENDOCRINE: Denies any polyuria or polydipsia. The rest of the 14-point review of systems is negative. Past Medical History Past Medical History: GERD/Reflux, Seizure Disorder, Skin Disorder, Thyroid Disorder Additional Past Medical History / Comment(s): has history of epilepsy, hx grand mal seizures since childhood, migraines, acne, History of Any Multi-Drug Resistant Organisms: None Reported, Unobtainable Past Surgical History: Adenoidectomy, Appendectomy, Cholecystectomy, Tonsillectomy Additional Past Surgical History / Comment(s): oral surgery Past Anesthesia/Blood Transfusion Reactions: Previous Problems w/ Anesthesia Additional Past Anesthesia/Blood Transfusion Reaction / Comment(s): SLOW TO WAKE FROM ANESTHESIA" Past Psychological History: Anxiety, Depression Smoking Status: Never smoker Past Alcohol Use History: None Reported Past Drug Use History: None Reported - Past Family History Mother Family Medical History: Cancer Additional Family Medical History / Comment(s): breast cancer Medications and Allergies Home Medications Medication Instructions Recorded Confirmed Type PHENobarbital 129.6 mg PO HS 10/19/18 03/14/21 History carBAMazepine [TEGretol XR] 400 mg PO HS 10/19/18 03/14/21 History lamoTRIgine [LaMICtal] 200 mg PO BID #0 06/28/20 03/14/21 Rx LORazepam [Ativan] 1 mg PO BID 10/10/20 03/14/21 History carBAMazepine [TEGretol] 200 mg PO BID 10/10/20 03/14/21 History [place] Carbonate 300 mg PO BID 11/13/20 03/14/21 History [place] Carbonate [[place] 450 mg PO BID 03/09/21 03/14/21 History Carbonate ER] Cenobamate [Xcopri] 250 mg PO DAILY 3 Days #30 tab 03/14/21 Rx Allergies Allergy/AdvReac Type Severity Reaction Status Date / Time No Known Allergies Allergy Verified 03/14/21 06:12 Physical Exam Vitals: Vital Signs Temp Pulse Resp BP Pulse Ox 03/14/21 13:00 80 12 98 03/14/21 12:00 56 L 12 98 03/14/21 11:00 80 18 123/84 98 03/14/21 10:00 90 16 116/81 97 03/14/21 09:58 78 16 116/81 95 03/14/21 09:00 74 15 107/72 95 03/14/21 08:53 75 16 107/73 97 03/14/21 08:00 73 15 109/73 96 03/14/21 07:41 72 16 109/73 97 03/14/21 07:00 90 16 105/73 97 03/14/21 05:15 66 18 114/81 96 03/14/21 04:15 68 18 125/90 98 03/14/21 04:02 98.6 F 79 18 135/88 95 Intake and Output 03/13/21 03/14/21 03/14/21 22:59 06:59 14:59 Other: Weight 95.254 kg PHYSICAL EXAMINATION: GENERAL: Patient is drowsy appears to be postictal oriented x3, not in any acute distress. Well developed, well nourished. HEENT: Pupils are round and equally reacting to light. EOMI. No scleral icterus. No conjunctival pallor. Normocephalic, atraumatic. No pharyngeal erythema. No thyromegaly. CARDIOVASCULAR: S1 and S2 present. No murmurs, rubs, or gallops. PULMONARY: Chest is clear to auscultation, no wheezing or crackles. ABDOMEN: Soft, nontender, nondistended, normoactive bowel sounds. No palpable organomegaly. MUSCULOSKELETAL: No joint swelling or deformity. EXTREMITIES: No cyanosis, clubbing, or pedal edema. NEUROLOGICAL: Gross neurological examination did not reveal any focal deficits. SKIN: No rashes. Results CBC & Chem 7: 03/14/21 04:23 03/14/21 04:23 Labs: Abnormal Lab Results - Last 24 Hours (Table) 03/14/21 03/14/21 03/14/21 Range/Units 03:55 04:23 04:23 Eosinophils # 0.9 H (0-0.7) k/uL Chloride 108 H (98-107) mmol/L Carbon Dioxide 21 L (22-30) mmol/L BUN 7 L (9-20) mg/dL Glucose 125 H (74-99) mg/dL POC Glucose (mg/dL) 124 H (75-99) mg/dL Creatine Kinase 258 H (55-170) U/L Ur Barbiturates Screen (NotDetected) 03/14/21 Range/Units 11:00 Eosinophils # (0-0.7) k/uL Chloride (98-107) mmol/L Carbon Dioxide (22-30) mmol/L BUN (9-20) mg/dL Glucose (74-99) mg/dL POC Glucose (mg/dL) (75-99) mg/dL Creatine Kinase (55-170) U/L Ur Barbiturates Screen Detected H (NotDetected) Assessment and Plan Plan: -Possible breakthrough seizures: Patient has long-standing intractable seizures, management as mentioned above patient was cleared by neurology patient will be discharged today. --Nausea vomiting probably aura -Anxiety disorder.
--- NOTE | 2021-03-14 13:31 | P.DS ---
Providers Date of admission: 03/14/21 06:02 Attending physician: Juliana Bennett Consults: 03/14/21 06:03 Consult Physician Routine Consulting Provider: Moise Norton Consult Reason/Comments: Sz,AMS,PostIctal Do you want consulting provider notified?: Yes Primary care physician: Stated None Hospital Course: As mentioned in HPI Patient Condition at Discharge: Fair Plan - Discharge Summary New Discharge Prescriptions: New Cenobamate [Xcopri] 250 mg PO DAILY 3 Days #30 tab Continue PHENobarbital 129.6 mg PO HS carBAMazepine [TEGretol XR] 400 mg PO HS lamoTRIgine [LaMICtal] 200 mg PO BID #0 carBAMazepine [TEGretol] 200 mg PO BID LORazepam [Ativan] 1 mg PO BID [place] Carbonate 300 mg PO BID [place] Carbonate [[place] Carbonate ER] 450 mg PO BID Discontinued Cenobamate [Xcopri] 200 mg PO DAILY Discharge Medication List PHENobarbital 129.6 mg PO HS 10/19/18 [History] carBAMazepine [TEGretol XR] 400 mg PO HS 10/19/18 [History] lamoTRIgine [LaMICtal] 200 mg PO BID #0 06/28/20 [Rx] LORazepam [Ativan] 1 mg PO BID 10/10/20 [History] carBAMazepine [TEGretol] 200 mg PO BID 10/10/20 [History] [place] Carbonate 300 mg PO BID 11/13/20 [History] [place] Carbonate [[place] Carbonate ER] 450 mg PO BID 03/09/21 [History] Cenobamate [Xcopri] 250 mg PO DAILY 3 Days #30 tab 03/14/21 [Rx] Follow up Appointment(s)/Referral(s): Silas Stuart MD [REFERRING] - 1 Week Discharge Disposition: HOME SELF-CARE
[2021-03-14 14:24] VITALS: BP 122/78; RESP 16; TEMP 98.9
[2021-03-14] MEDS ORDERED: lamoTRIgine 100 MG TAB PO SCH (21:00)
== END 2021-03-14 14:23 | disposition home or self-care (01) ==
LOC: EC 03:47 → 6NMEDSUR 06:02
PROVIDERS: ADMIT Hospitalist; ATTEND Hospitalist
DX: G40.409 Other generalized epilepsy and epileptic syndromes, not intractable, without status epilepticus (principal); G43.909 Migraine, unspecified, not intractable, without status migrainosus; R11.2 Nausea with vomiting, unspecified; K21.9 Gastro-esophageal reflux disease without esophagitis; L98.9 Disorder of the skin and subcutaneous tissue, unspecified; L70.9 Acne, unspecified; E07.9 Disorder of thyroid, unspecified; F32.9 Major depressive disorder, single episode, unspecified; F41.9 Anxiety disorder, unspecified; Z20.822 Contact with and (suspected) exposure to COVID-19; Z79.899 Other long term (current) drug therapy; Z90.49 Acquired absence of other specified parts of digestive tract; Z98.890 Other specified postprocedural states; Z80.3 Family history of malignant neoplasm of breast
CPT/HCPCS: 96361; 96365; 96375; 99285; 36415; 93005; 80053; 82550; 82553; 83690; 80178; 83735; 84484; 85025; 80306; 80143; 87635; 80179; 70450; G0378; G0480; J0780; J2405; J1953; 80320

== ENCOUNTER 2021-03-19 13:17 | Emergency (ER) | payer MEDICARE, OTHER ==
[2021-03-19 13:29] VITALS: RESP 16; TEMP 97.4
--- NOTE | 2021-03-19 15:57 | ED ---
General Adult HPI - General Chief complaint: Seizure Stated complaint: Nausea/Vomiting/Seizure Source: EMS Mode of arrival: EMS - History of Present Illness Initial comments: Stephan is a 30-year-old male with a history of seizure disorder who follows with neurology out of [facility]. Patient presents the ER today via ambulance after having an hour earlier today in which she thought he was going to have a seizure. Patient reports he woke up this morning took his medications about 1140 this morning. He states he has not missed any recent dosage of his medication. He states that he began to feel lightheaded and dizzy like he was going to have a seizure at which time he advised his to call the ambulance. Patient was diagnosed with seizure disorder 18 months, he's been on multiple medications. He follows closely with neurology. Lately is been suffering from frequent bouts of dizziness and is following with neurology for this. He is was to follow up soon to discuss medication changes for treatment of his persistent dizziness. - Related Data Home Medications Medication Instructions Recorded Confirmed PHENobarbital 129.6 mg PO HS 10/19/18 03/14/21 carBAMazepine [TEGretol XR] 400 mg PO HS 10/19/18 03/14/21 LORazepam [Ativan] 1 mg PO BID 10/10/20 03/14/21 carBAMazepine [TEGretol] 200 mg PO BID 10/10/20 03/14/21 [place] Carbonate 300 mg PO BID 11/13/20 03/14/21 [place] Carbonate [[place] 450 mg PO BID 03/09/21 03/14/21 Carbonate ER] Previous Rx's Medication Instructions Recorded lamoTRIgine [LaMICtal] 200 mg PO BID #0 06/28/20 Cenobamate [Xcopri] 250 mg PO DAILY 3 Days #30 tab 03/14/21 Allergies Allergy/AdvReac Type Severity Reaction Status Date / Time No Known Allergies Allergy Verified 03/19/21 13:29 Review of Systems ROS Statement: Those systems with pertinent positive or pertinent negative responses have been documented in the HPI. ROS Other: All systems not noted in ROS Statement are negative. Past Medical History Past Medical History: GERD/Reflux, Seizure Disorder, Skin Disorder, Thyroid Disorder Additional Past Medical History / Comment(s): has history of epilepsy, hx grand mal seizures since childhood, migraines, acne, History of Any Multi-Drug Resistant Organisms: None Reported, Unobtainable Past Surgical History: Adenoidectomy, Appendectomy, Cholecystectomy, Tonsillectomy Additional Past Surgical History / Comment(s): oral surgery Past Anesthesia/Blood Transfusion Reactions: Previous Problems w/ Anesthesia Additional Past Anesthesia/Blood Transfusion Reaction / Comment(s): SLOW TO WAKE FROM ANESTHESIA" Past Psychological History: Anxiety, Depression Smoking Status: Never smoker Past Alcohol Use History: None Reported Past Drug Use History: None Reported - Past Family History Mother Family Medical History: Cancer Additional Family Medical History / Comment(s): breast cancer General Exam - General Exam Comments Initial Comments: Physical Exam GENERAL: Patient is well-developed and well-nourished. Patient is nontoxic and well-hydrated and is in no distress. HENT: Normocephalic, Atraumatic. EYES: PERRL, EOMI PULMONARY: Unlabored respirations. CARDIOVASCULAR: RRR Warm and well perfused extremities ABDOMEN: Non-distended SKIN: No rashes or bruising : Deferred NEUROLOGIC: Alert and oriented Speech impediment, chronic Normal gait, able to ambulate throughout the room open the door without difficulty MUSCULOSKELETAL: Moving all extremities with no apparent injury PSYCHIATRIC: No SI/HI Course Vital Signs 03/19/21 13:18 Temperature 97.4 F L Pulse Rate 80 Respiratory 16 Rate Blood Pressure 128/91 O2 Sat by Pulse 98 Oximetry EKG Findings - EKG Comments: EKG Findings:: EKG was obtained as part of the seizure workup, EKG was obtained at 1333, rate is 77 rhythm is sinus , there are normal intervals, FL 174, care is 94, QTC 407. There are no acute ST elevations or depressions there is no evidence of ischemia or infarction. Medical Decision Making - Medical Decision Making The patient was seen and evaluated, on evaluation the patient was awake alert oriented. He states he is feeling much better he felt like he would have a seizure but he did not. Patient states he doesn't want any testing done and he will follow with his neurologist out of . He states that he would like to be discharged home. Patient was able to stand from the bed and ambulate around the room without difficulty. At this time I do feel that the patient is stable for discharge home to continue his home regimen of antiepileptics and follow with his neurologist. Disposition Clinical Impression: Intractable seizure disorder Disposition: HOME SELF-CARE Condition: Stable Instructions (If sedation given, give patient instructions): Seizure/Epilepsy Discharge Instructions & Follow-Up Is patient prescribed a controlled substance at d/c from ED?: No Referrals: Ana Maria Samson MD [Primary Care Provider] - 1-2 days
[2021-03-19 16:02] VITALS: BP 111/74; PULSE 74
== END 2021-03-19 16:21 | disposition home or self-care (01) ==
LOC: EC 13:17
DX: G40.919 Epilepsy, unspecified, intractable, without status epilepticus (principal); F32.9 Major depressive disorder, single episode, unspecified; F41.9 Anxiety disorder, unspecified; Z79.899 Other long term (current) drug therapy
CPT/HCPCS: 93005; 99284

== ENCOUNTER 2021-04-03 12:47 | Observation (INO) | payer MEDICARE, OTHER ==
[2021-04-03 13:04] VITALS: TEMP 98.7
[2021-04-03 14:29] LABS: Basophils % (A) 1 %; Eosinophils # (A) 0.7 k/uL (0-0.7); Eosinophils % (A) 13 %; HCT 43.2 % (39.0-53.0); HGB 14.6 gm/dL (13.0-17.5); Lymphocytes # (A) 1.5 k/uL (1.0-4.8); Lymphocytes % (A) 27 %; MCH 31.4 pg (25.0-35.0); MCHC 33.8 g/dL (31.0-37.0); MCV 92.8 fL (80.0-100.0); Mean Platelet Volume 6.5; Monocytes # (A) 0.3 k/uL (0-1.0); Monocytes % (A) 5 %; Neutrophils % (A) 54 %; Platelet Count 215 k/uL (150-450); RBC 4.65 m/uL (4.30-5.90); RDW 12.4 % (11.5-15.5); WBC 5.6 k/uL (3.8-10.6)
[2021-04-03 14:41] LABS: ALT 14 U/L (4-49); AST 20 U/L (17-59); African American GFR (CKD) >90 (>60 ml/min/1.73 sqM); Albumin 4.5 g/dL (3.5-5.0); Alcohol <10 mg/dL; Alkaline Phosphatase 127 U/L (38-126); Anion Gap 8 mmol/L; Blood Urea Nitrogen 11 mg/dL (9-20); Calcium 9.5 mg/dL (8.4-10.2); Carbon Dioxide 25 mmol/L (22-30); Chloride 107 mmol/L (98-107); Glucose 99 mg/dL (74-99); Non-African American GFR(CKD) >90 (>60 ml/min/1.73 sqM); Potassium 4.6 mmol/L (3.5-5.1); Sodium 140 mmol/L (137-145); Total Bilirubin 0.1 mg/dL (0.2-1.3); Total Protein 7.5 g/dL (6.3-8.2)
--- NOTE | 2021-04-03 14:53 | ED ---
Seizure HPI - General Source: patient Mode of arrival: ambulatory Limitations: no limitations <Teresa Bajwa - Last Filed: 04/03/21 15:18> <Stephan Azul - Last Filed: 04/03/21 15:43> - General Chief Complaint: Seizure Stated Complaint: seizure, hit head Time Seen by Provider: 04/03/21 13:26 - History of Present Illness Initial Comments: Patient is a 31-year-old male with history of seizures, presenting to the emergency department after having a seizure just prior to arrival. Per , patient did hit his head on the car as he fell down while having a seizure. The patient stated the seizure lasted about a minute. The patient's left after dropping of the patient so any further history is not obtained. History is being obtained from the patient. He is alert and answering questions appropriately. He admits to having some mild pain on the right side of his head, some mild pain of his right elbow. He denies any chest pain or shortness of breath, no abdominal pain, no nausea or vomiting. He has been taking his medications as prescribed, he sees neurologist out of [facility]. He denies any fevers or chills. He has no further complaints at this time. Upon arrival to the ER, his vital signs are stable. (Teresa Bajwa) - Related Data Home Medications Medication Instructions Recorded Confirmed PHENobarbital 129.6 mg PO HS 10/19/18 04/03/21 carBAMazepine [TEGretol XR] 400 mg PO HS 10/19/18 04/03/21 LORazepam [Ativan] 1 mg PO BID 10/10/20 04/03/21 carBAMazepine [TEGretol] 200 mg PO BID 10/10/20 04/03/21 [place] Carbonate 300 mg PO BID 11/13/20 04/03/21 [place] Carbonate [[place] 450 mg PO BID 03/09/21 04/03/21 Carbonate ER] Xcopri 250mg 250 mg PO DAILY 04/03/21 04/03/21 Previous Rx's Medication Instructions Recorded lamoTRIgine [LaMICtal] 200 mg PO BID #0 06/28/20 Allergies Allergy/AdvReac Type Severity Reaction Status Date / Time No Known Allergies Allergy Verified 04/03/21 14:18 Review of Systems ROS Other: All systems not noted in ROS Statement are negative. <Teresa Bajwa - Last Filed: 04/03/21 15:18> ROS Other: All systems not noted in ROS Statement are negative. <Stephan Azul - Last Filed: 04/03/21 15:43> ROS Statement: Those systems with pertinent positive or pertinent negative responses have been documented in the HPI. Past Medical History Past Medical History: GERD/Reflux, Seizure Disorder, Skin Disorder, Thyroid Disorder Additional Past Medical History / Comment(s): has history of epilepsy, hx grand mal seizures since childhood, migraines, acne, History of Any Multi-Drug Resistant Organisms: None Reported, Unobtainable Past Surgical History: Adenoidectomy, Appendectomy, Cholecystectomy, Tonsillectomy Additional Past Surgical History / Comment(s): oral surgery Past Anesthesia/Blood Transfusion Reactions: Previous Problems w/ Anesthesia Additional Past Anesthesia/Blood Transfusion Reaction / Comment(s): SLOW TO WAKE FROM ANESTHESIA" Past Psychological History: Anxiety, Depression Smoking Status: Never smoker Past Alcohol Use History: None Reported Past Drug Use History: None Reported - Past Family History Mother Family Medical History: Cancer Additional Family Medical History / Comment(s): breast cancer <Teresa Bajwa - Last Filed: 04/03/21 15:18> General Exam Limitations: no limitations <Teresa Bajwa - Last Filed: 04/03/21 15:18> - General Exam Comments Initial Comments: GENERAL: Patient is well-developed and well-nourished. Patient is nontoxic and in no acute distress. Patient does seem post ictal, he is answering questions appropriately. HEAD: Atraumatic, normocephalic. There is no hematoma, no signs of basilar skull fracture. EYES: Pupils equal round and reactive to light, extraocular movements intact, sclera anicteric, conjunctiva are normal. Eyelids were unremarkable. ENT: TMs normal, nares patent, oropharynx clear without exudates. Moist mucous membranes. He has a very small abrasion noted to the right cheek. NECK: Normal range of motion, supple without lymphadenopathy or JVD. He has no midline tenderness. LUNGS: Unlabored respirations. Breath sounds clear to auscultation bilaterally and equal. No wheezes rales or rhonchi. HEART: Regular rate and rhythm without murmurs, rubs or gallops. ABDOMEN: Soft, nontender, normoactive bowel sounds. No guarding, no rebound. No masses appreciated. : Deferred MUSCULOSKELETAL: Normal extremities with adequate strength and normal range of motion, no pitting or edema. No clubbing or cyanosis. NEUROLOGICAL: Patient is alert and oriented x 3. Motor and sensory are also intact. Cranial nerves II through XII grossly intact. Symmetrical smile. Normal speech, normal gait. PSYCH: Normal mood, normal affect. SKIN: Warm, Dry, normal turgor. Patient has mild abrasion noted to the right elbow and right lateral hand. (Teresa Bajwa) Course <Stephan Azul - Last Filed: 04/03/21 15:43> Vital Signs 04/03/21 04/03/21 13:01 15:33 Temperature 98.7 F Pulse Rate 77 75 Respiratory 20 17 Rate Blood Pressure 116/75 110/72 O2 Sat by Pulse 97 100 Oximetry - Reevaluation(s) Reevaluation #1: 04/03/21 15:43 The patient was found to be a patient of Dr. Samson I did discuss this case with her she is agreed to accept the patient onto her service. Dr. Moses will be notified. (Stephan Azul) Medical Decision Making - Lab Data Result diagrams: 04/03/21 14:25 04/03/21 14:25 <Teresa Bajwa - Last Filed: 04/03/21 15:18> - Lab Data Result diagrams: 04/03/21 14:25 04/03/21 14:25 <Stephan Azul - Last Filed: 04/03/21 15:43> - Medical Decision Making Patient is a 31-year-old male with history of epilepsy presenting after having a seizure prior to arrival. He did fall and hit his head on a car. Patient was dropped off by his , and she left. Patient does seem postictal during exam but answering Russians appropriately, is alert and oriented 4. His vital signs are stable, EKG shows no acute process. (Teresa Bajwa) - Lab Data Lab Results 04/03/21 04/03/21 Range/Units 14:25 14:25 WBC 5.6 (3.8-10.6) k/uL RBC 4.65 (4.30-5.90) m/uL Hgb 14.6 (13.0-17.5) gm/dL Hct 43.2 (39.0-53.0) % MCV 92.8 (80.0-100.0) fL MCH 31.4 (25.0-35.0) pg MCHC 33.8 (31.0-37.0) g/dL RDW 12.4 (11.5-15.5) % Plt Count 215 (150-450) k/uL MPV 6.5 Neutrophils % 54 % Lymphocytes % 27 % Monocytes % 5 % Eosinophils % 13 % Basophils % 1 % Neutrophils # 3.0 (1.3-7.7) k/uL Lymphocytes # 1.5 (1.0-4.8) k/uL Monocytes # 0.3 (0-1.0) k/uL Eosinophils # 0.7 (0-0.7) k/uL Basophils # 0.0 (0-0.2) k/uL Sodium 140 (137-145) mmol/L Potassium 4.6 (3.5-5.1) mmol/L Chloride 107 (98-107) mmol/L Carbon Dioxide 25 (22-30) mmol/L Anion Gap 8 mmol/L BUN 11 (9-20) mg/dL Creatinine 0.77 (0.66-1.25) mg/dL Est GFR (CKD-EPI)AfAm >90 (>60 ml/min/1.73 sqM) Est GFR (CKD-EPI)NonAf >90 (>60 ml/min/1.73 sqM) Glucose 99 (74-99) mg/dL Calcium 9.5 (8.4-10.2) mg/dL Total Bilirubin 0.1 L (0.2-1.3) mg/dL AST 20 (17-59) U/L ALT 14 (4-49) U/L Alkaline Phosphatase 127 H (38-126) U/L Total Protein 7.5 (6.3-8.2) g/dL Albumin 4.5 (3.5-5.0) g/dL Serum Alcohol <10 mg/dL - EKG Data EKG Comments: Normal sinus rhythm, possible left atrial large, no signs of acute ST segment elevation. Ventricular rate 77, [place] interval 178, QT 360. (Teresa Bajwa) Disposition Decision Date: 04/03/21 Decision Time: 15:18 <Teresa Bajwa - Last Filed: 04/03/21 15:18> <Stephan Azul - Last Filed: 04/03/21 15:43> Clinical Impression: Epileptic seizure, generalized, Fall, Postictal state Disposition: ADMITTED IP TO THIS HOSP Condition: Stable
--- NOTE | 2021-04-03 15:02 | CT ---
EXAMINATION TYPE: CT brain cspine wo con DATE OF EXAM: 04/03/2021 COMPARISON: CT brain March 14, 2021. CT cervical spine November 29, 2018. HISTORY: Hit head injury, seizure, neck pain. CT DLP: 1513.6 mGycm. Automated Exposure Control for Dose Reduction was Utilized. TECHNIQUE: CT scan of the head and cervical spine are performed without contrast. FINDINGS: There is no acute intracranial hemorrhage, mass effect, or midline shift identified. The ventricles and sulci are within normal limits in size. The globes are intact and the visualized sin uses are clear. The calvarium is intact. Cervical spine is visualized in its entirety from C1 through upper thoracic levels and demonstrates s table and satisfactory alignment without evidence of acute fracture or dislocation. Prevertebral sof t tissue remains within normal limits. The C1-C2 articulation is within normal limits on the coronal images. Vertebral body heights and disc space heights are maintained. Spinal canal is grossly prese rved. No large disc herniation is evident. Thyroid gland appears within normal limits. Lung apices sh ow no pneumothorax. IMPRESSION: 1. There is no acute fracture or dislocation evident in the cervical spine. 2. No acute intracranial hemorrhage or midline shift is seen. No significant change from prior studies.
[2021-04-03] MEDS ORDERED: ACETAMINOPHEN TAB 325 MG TAB PO PRN (15:16)
[2021-04-03] MEDS ORDERED: ONDANSETRON 4 MG/2 ML VIAL IVP PRN (15:16)
[2021-04-03] MEDS ORDERED: NALOXONE 0.4 MG/ML 1 ML VIAL IV PRN (15:16)
[2021-04-03 15:34] VITALS: BP 110/72; PULSE 75; RESP 17
[2021-04-03 17:24] LABS: Carbamazepine (Tegretol) 6.6 ug/mL; Lithium <0.2 mmol/L; Phenytoin (Dilantin) <3.0 ug/mL
--- NOTE | 2021-04-03 18:59 | P.CNNES ---
History of Present Illness Consult date: 04/03/21 Requesting physician: Teresa Bajwa Reason for Consult: seizure, prolonged post-ictal. Hx of epilepsy History of Present Illness: This is a 32-year-old gentleman with long history of epilepsy, traumatic very minimal subarachnoid hemorrhage over the frontal sulci, past suicidal and homicidal thoughts, medication noncompliance who presented emergency department after having a seizure prior to arrival. History is obtained from his (Bre). He was getting dizzy and upon leaving and started stumbling and hit the right upper and right check of head. The stated that his speech was worsening but unsure if he lost consicousness. No jerking of any extremities, foaming around the mouth. No urinary or bowel incontinence. She does not feel like this was seizure since not his typical seizure. Per his , he has been having dizziness for a prolonged peroid of time and mostly in the the morning and believes after taking his morning medication. She thinks possibly after Tegretol and notified this to his epilepsy team. He is on multiple antiepileptic drugs and is known well to Dr. Stearns's team. Per the he has frequent seizure and last seizure is 2 weeks ago. He antiepileptic drugs waite s been modified numerous times in the past. Currently the patient feels he is back to baseline, denies of dizziness, nausea or vomiting. Denies of weakness, numbness. He follows-up with [facility] on 3 weeks and increased Xcopori started 5-6 months ago and was increased to 250mg daily in February then in the last 1 1/2 weeks to 2 weeks to 300mg daily. His other antiepileptic drug Lamictal 200mg 1 tab bid, Tegretol 200mg 1tab bid, Tegretol 400mg qhs, Phenobarbital 129mg qhs. He got weaned off Vimpat recently. stated he was possibly on Depakote in his 20's and was discontinued in past and was on so many medications. He got approved for epidiolex and is pending. He was notified they will consider VNS if his seizures continues He is not on longer [place] for psychiatry because interacting with his other medication. He last EMU in December 2020 at [place] and per the no seizures was seen. Some other workup in the hospital consisted of: Initial vital signs blood pressure 116/75, heart rate of 77, respiratory of 20, temperature of 98.7 Fahrenheit oral and pulse ox of 97% at room air. CBC with differential is unremarkable. Chemistry panel seems unremarkable. Sodium is 140, creatinine is 0.77, glucose is 99, magnesium is 2.0, AST of 20 and ALT of 14, calcium is the 9.5 which again are all unremarkable. Tegretol level is 6.6 which is therapeutic level. Phenytoin is less than 3.0 and the patient is not on any Dilantin. [place] is less than 0.2 and the patient is not on any lithium. Serum alcohol was less than 10. CT of the head is reported as No acute intracranial hemorrhage of midline shift is seen. No significant change from prior studies. CT cervical is reported as there is no acute fracture or dislocation evident in the cervical spine. Review of Systems Review of system: The 12 point system was reviewed and apparent positive and negative per HPI. Past Medical History Past Medical History: GERD/Reflux, Seizure Disorder, Skin Disorder, Thyroid Disorder Additional Past Medical History / Comment(s): has history of epilepsy, hx grand mal seizures since childhood, migraines, acne, History of Any Multi-Drug Resistant Organisms: None Reported, Unobtainable Past Surgical History: Adenoidectomy, Appendectomy, Cholecystectomy, Tonsillectomy Additional Past Surgical History / Comment(s): oral surgery Past Anesthesia/Blood Transfusion Reactions: Previous Problems w/ Anesthesia Additional Past Anesthesia/Blood Transfusion Reaction / Comment(s): SLOW TO WAKE FROM ANESTHESIA" Past Psychological History: Anxiety, Depression Smoking Status: Never smoker Past Alcohol Use History: None Reported Past Drug Use History: None Reported - Past Family History Mother Family Medical History: Cancer Additional Family Medical History / Comment(s): breast cancer Medications and Allergies Home Medications Medication Instructions Recorded Confirmed Type PHENobarbital 129.6 mg PO HS 10/19/18 04/03/21 History carBAMazepine [TEGretol XR] 400 mg PO HS 10/19/18 04/03/21 History lamoTRIgine [LaMICtal] 200 mg PO BID #0 06/28/20 04/03/21 Rx LORazepam [Ativan] 1 mg PO BID 10/10/20 04/03/21 History carBAMazepine [TEGretol] 200 mg PO BID 10/10/20 04/03/21 History [place] Carbonate 300 mg PO BID 02/15/21 07/06/21 History [place] Carbonate [[place] 450 mg PO BID 03/09/21 04/03/21 History Carbonate ER] Xcopri 250mg 250 mg PO DAILY 04/03/21 04/03/21 History Allergies Allergy/AdvReac Type Severity Reaction Status Date / Time No Known Allergies Allergy Verified 04/03/21 14:18 Physical Examination - Vital Signs Vital Signs: Vital Signs Temp Pulse Resp BP Pulse Ox 04/03/21 15:33 75 17 110/72 100 04/03/21 13:01 98.7 F 77 20 116/75 97 Intake and Output 04/03/21 04/03/21 04/03/21 06:59 14:59 22:59 Other: Weight 86.183 kg GENERAL: The patient is lying in bed and is not in acute distress. CHEST: The heart rate is regular rate rhythm. No murmurs to auscultation. No carotid bruit bilaterally. LUNG: Clear to auscultation bilaterally no wheezing noted throughout. Not labored breathing. ABDOMEN/GI: Bowel sounds present in all 4 quadrants. No tenderness to palpation throughout. NEUROLOGICAL: Higher mental function: The patient is awake, alert, oriented to self, place and time. Patient is following commands. No aphasia and no neglect. Cranial nerves: The pupils are round, equal and reactive to light and accommodation. Visual moya are full to confrontation throughout. Extraocular movement is intact and there is nystagmus noted looking to far right or left . Facial sensation is normal to touch throughout. The facial strength is normal throughout. Has slight bruise of right side of check from a fall. Hearing is normal bilaterally to hand rub. Tongue is midline and moved [id number] without any difficulty. Minimal dysarthria is noted (baseline). Shoulder shrug is normal bilaterally. Motor: Gait is deferred. The strength is 5 over 5 throughout. Normal tone and bulk. Cerebellum: Normal finger to nose bilaterally. Sensation: Sensation is normal to touch throughout. Reflexes (right/left): 2+ throughout. Plantars are downgoing bilaterally. Results - Laboratory Findings CBC and BMP: 04/03/21 14:25 04/03/21 14:25 Abnormal Lab Findings: Abnormal Labs 04/03/21 14:25 Total Bilirubin 0.1 L Alkaline Phosphatase 127 H Assessment and Plan Assessment: Dizziness likely due to medication effect (on multiple medication). 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 Per his episode today is not his typical seizure. History of traumatic minimal subarachnoid hemorrhage over the frontal Past history of suicidal homicidal thoughts Bipolar History of medication noncompliance in the past Plan: * Recommend continuing his home antiepileptic drug Lamictal 200mg 1 tab bid, Tegretol 200mg 1tab bid, Tegretol 400mg qhs, Phenobarbital 129mg qhs and Xcopori 300mg daily(we do not have this medication as formulary ). * I will not modify his medication since per upon modification in past he has seizure and will defer modification of medication to his epilepsy team. * He got approved for epidiolex and is pending to be given per , and was told if that does not work consideration of VNS. * Patient needs to follow-up with his epilepsy team (Dr. Alaina Nash and his [facility]) within 1-2 weeks. * The patient was notified that per [place] DMV he still avoid driving for 6 month until seizure-free, avoid the swimming unassisted, using heavy machinery and avoid heights. Since we do not have Xcopori as formulary ( said it will be tough to bring the medication to the hospital) and since his does not feels he had seizure episode today and patient feels back to baseline and wanting to leave home. I recommend him being discharged home and following-up with his neurologist as outpatient XIANG. The plan is discussed with the patient and his via phone. Thank you for the consultation. Magno Thakkar MD Neuro-Hospitalist Time with Patient: Greater than 30
[2021-04-03] MEDS ORDERED: lamoTRIgine 100 MG TAB PO SCH (21:00)
[2021-04-03] MEDS ORDERED: carBAMazepine 200 MG TAB PO SCH (21:00)
[2021-04-03] MEDS ORDERED: carBAMazepine 400 MG TAB.ER.12H PO SCH (21:00)
== END 2021-04-03 22:03 | disposition left against medical advice (07) ==
LOC: EC 12:47 → 6NMEDSUR 15:26
PROVIDERS: ADMIT Family Medicine; ATTEND Family Medicine
DX: R42 Dizziness and giddiness (principal); G40.409 Other generalized epilepsy and epileptic syndromes, not intractable, without status epilepticus; S00.83XA Contusion of other part of head, initial encounter; S50.311A Abrasion of right elbow, initial encounter; M25.521 Pain in right elbow; E07.9 Disorder of thyroid, unspecified; G43.909 Migraine, unspecified, not intractable, without status migrainosus; K21.9 Gastro-esophageal reflux disease without esophagitis; L70.9 Acne, unspecified; Z91.14 Patient's other noncompliance with medication regimen; F31.9 Bipolar disorder, unspecified; F41.9 Anxiety disorder, unspecified; W01.198A Fall on same level from slipping, tripping and stumbling with subsequent striking against other object, initial encounter; Z79.899 Other long term (current) drug therapy; Z90.49 Acquired absence of other specified parts of digestive tract; Z98.890 Other specified postprocedural states; Z87.820 Personal history of traumatic brain injury; Z86.59 Personal history of other mental and behavioral disorders; Z80.3 Family history of malignant neoplasm of breast
CPT/HCPCS: 99285; G0378; 36415; 70450; 72125; 80053; 80156; 80178; 80185; 80320; 83735; 85025; 93005

== ENCOUNTER 2021-04-05 15:52 | Inpatient (IN) | payer MEDICARE, MEDICAID ==
--- NOTE | 2021-04-05 16:42 | ED ---
General Adult HPI - General Chief complaint: Psychiatric Symptoms Stated complaint: mental health, suicidal Time Seen by Provider: 04/05/21 16:29 Source: patient, police, RN notes reviewed, old records reviewed Mode of arrival: ambulatory Limitations: no limitations - History of Present Illness Initial comments: 31-year-old male presenting with mental health evaluation. Suicidal comments. He has been petitioned by police. He threatened to kill himself with a knife. He has had some difficulties with his and his landlord. He denies suicide attempt but has had increased depression and suicidal ideation. - Related Data Home Medications Medication Instructions Recorded Confirmed PHENobarbital 129.6 mg PO HS 10/19/18 04/05/21 carBAMazepine [TEGretol XR] 400 mg PO HS 10/19/18 04/05/21 LORazepam [Ativan] 1 mg PO BID PRN 10/10/20 04/05/21 carBAMazepine [TEGretol] 200 mg PO BID 10/10/20 04/05/21 [place] Carbonate 300 mg PO DIRECTED 11/13/20 04/05/21 [place] Carbonate [[place] 450 mg PO DIRECTED 03/09/21 04/05/21 Carbonate ER] Xcopri 250mg 250 mg PO DAILY 04/03/21 04/05/21 Previous Rx's Medication Instructions Recorded lamoTRIgine [LaMICtal] 200 mg PO BID #0 06/28/20 Allergies Allergy/AdvReac Type Severity Reaction Status Date / Time No Known Allergies Allergy Verified 04/05/21 18:43 Review of Systems ROS Statement: Those systems with pertinent positive or pertinent negative responses have been documented in the HPI. ROS Other: All systems not noted in ROS Statement are negative. Past Medical History Past Medical History: GERD/Reflux, Seizure Disorder, Skin Disorder, Thyroid Disorder Additional Past Medical History / Comment(s): has history of epilepsy, hx grand mal seizures since childhood, migraines, acne, History of Any Multi-Drug Resistant Organisms: None Reported, Unobtainable Past Surgical History: Adenoidectomy, Appendectomy, Cholecystectomy, Tonsillectomy Additional Past Surgical History / Comment(s): oral surgery Past Anesthesia/Blood Transfusion Reactions: Previous Problems w/ Anesthesia Additional Past Anesthesia/Blood Transfusion Reaction / Comment(s): SLOW TO WAKE FROM ANESTHESIA" Past Psychological History: Anxiety, Depression Smoking Status: Never smoker Past Alcohol Use History: None Reported Past Drug Use History: None Reported - Past Family History Mother Family Medical History: Cancer Additional Family Medical History / Comment(s): breast cancer General Exam Limitations: no limitations General appearance: alert, in no apparent distress Head exam: Present: atraumatic, normocephalic Eye exam: Present: normal appearance, PERRL ENT exam: Present: normal exam Neck exam: Present: normal inspection. Absent: tenderness, meningismus Respiratory exam: Present: normal lung sounds bilaterally. Absent: respiratory distress, wheezes Cardiovascular Exam: Present: regular rate, normal rhythm GI/Abdominal exam: Present: soft. Absent: distended, tenderness Extremities exam: Present: normal inspection, normal capillary refill Neurological exam: Present: alert. Absent: motor sensory deficit Psychiatric exam: Present: depressed, suicidal ideation Skin exam: Present: warm, dry, intact Course Vital Signs 04/05/21 16:03 Temperature 98.1 F Pulse Rate 71 Respiratory 16 Rate Blood Pressure 124/88 O2 Sat by Pulse 100 Oximetry - Reevaluation(s) Reevaluation #1: 04/05/21 16:41 Patient cleared for EPS. Reevaluation #2: 04/05/21 19:00 There was some concern about seizure frequency. He has been seizure free for greater than 48 hours. Medical Decision Making - Medical Decision Making Patient presenting with suicidal ideation and plan. He had been petitioned by police. He was evaluated by EPS and felt to require inpatient psychiatric evaluation and treatment. The patient did sign himself in. - Lab Data Lab Results 04/05/21 Range/Units 18:03 Urine Opiates Screen Not Detected (NotDetected) Ur Oxycodone Screen Not Detected (NotDetected) Urine Methadone Screen Not Detected (NotDetected) Ur Propoxyphene Screen Not Detected (NotDetected) Ur Barbiturates Screen Detected H (NotDetected) U Tricyclic Antidepress Not Detected (NotDetected) Ur Phencyclidine Scrn Not Detected (NotDetected) Ur Amphetamines Screen Not Detected (NotDetected) U Methamphetamines Scrn Not Detected (NotDetected) U Benzodiazepines Scrn Not Detected (NotDetected) Urine Cocaine Screen Not Detected (NotDetected) U Marijuana (THC) Screen Not Detected (NotDetected) Disposition Clinical Impression: Depression, Suicidal ideation Disposition: ADMITTED IP TO THIS HOSP Condition: Stable Is patient prescribed a controlled substance at d/c from ED?: No Referrals: Ana Maria Samson MD [Primary Care Provider] - 1-2 days Decision to Admit Reason: Admit from EC Decision Date: 04/05/21 Decision Time: 19:28
[2021-04-05 18:41] LABS: Amphetamine Screen,Urine Not Detected (NotDetected); Barbiturate Screen,Urine Detected (NotDetected); Benzodiazepines Screen,Urine Not Detected (NotDetected); Cocaine Screen,Urine Not Detected (NotDetected); Methadone Screen, Urine Not Detected (NotDetected); Opiate Screen,Urine Not Detected (NotDetected); Oxycodone Screen, Urine Not Detected (NotDetected); Phencyclidine Screen,Urine Not Detected (NotDetected); Tricyclic Antidepressant,Urine Not Detected (NotDetected); Urn Cannabinoid Scrn Not Detected (NotDetected)
[2021-04-05] MEDS ORDERED: MAGNESIUM HYDROXIDE 2,400 MG/10 ML CUP PO PRN (19:34)
[2021-04-05] MEDS ORDERED: ACETAMINOPHEN TAB 325 MG TAB PO PRN (19:34)
[2021-04-05] MEDS ORDERED: MAG HYDROX/AL HYDROX/SIMETH 30 ML CUP PO PRN (19:34)
[2021-04-05] MEDS ORDERED: haloperidoL 5 MG TAB PO PRN (19:36)
[2021-04-05] MEDS ORDERED: LORazepam 2 MG/ML INJ IM PRN (19:37)
[2021-04-05 19:49] LABS: Basophils # (A) 0.1 k/uL (0-0.2); Basophils % (A) 1 %; Eosinophils # (A) 0.7 k/uL (0-0.7); Eosinophils % (A) 10 %; HCT 44.1 % (39.0-53.0); HGB 15.1 gm/dL (13.0-17.5); Lymphocytes # (A) 2.3 k/uL (1.0-4.8); Lymphocytes % (A) 34 %; MCH 31.6 pg (25.0-35.0); MCHC 34.2 g/dL (31.0-37.0); MCV 92.4 fL (80.0-100.0); Mean Platelet Volume 6.5; Monocytes # (A) 0.3 k/uL (0-1.0); Monocytes % (A) 4 %; Neutrophils # (A) 3.4 k/uL (1.3-7.7); Neutrophils % (A) 50 %; Platelet Count 194 k/uL (150-450); RBC 4.78 m/uL (4.30-5.90); RDW 12.6 % (11.5-15.5); WBC 6.7 k/uL (3.8-10.6)
[2021-04-05 20:05] LABS: ALT 13 U/L (4-49); AST 20 U/L (17-59); African American GFR (CKD) >90 (>60 ml/min/1.73 sqM); Albumin 4.6 g/dL (3.5-5.0); Alkaline Phosphatase 139 U/L (38-126); Anion Gap 9 mmol/L; Blood Urea Nitrogen 10 mg/dL (9-20); Calcium 9.6 mg/dL (8.4-10.2); Carbamazepine (Tegretol) 4.8 ug/mL; Carbon Dioxide 23 mmol/L (22-30); Chloride 109 mmol/L (98-107); Glucose 97 mg/dL (74-99); Non-African American GFR(CKD) >90 (>60 ml/min/1.73 sqM); Potassium 4.2 mmol/L (3.5-5.1); Sodium 141 mmol/L (137-145); Total Bilirubin 0.2 mg/dL (0.2-1.3); Total Protein 7.6 g/dL (6.3-8.2)
[2021-04-05] MEDS: carBAMazepine 200 MG TAB PO SCH (21:06)
[2021-04-05] MEDS: carBAMazepine 400 MG TAB.ER.12H PO SCH (21:06)
[2021-04-05] MEDS: lamoTRIgine 100 MG TAB PO SCH (21:08)
[2021-04-06] MEDS: lamoTRIgine 100 MG TAB PO SCH ×2 (08:00→20:58)
[2021-04-06] MEDS: NICOTINE 21MG/24HR PATCH TRANSDERM SCH (08:01)
[2021-04-06] MEDS: carBAMazepine 200 MG TAB PO SCH ×2 (08:19→20:57)
--- NOTE | 2021-04-06 08:34 | P.HP ---
Psychiatric H&P - . H&P Date: 04/06/21 History & Physical: Allergies Allergy/AdvReac Type Severity Reaction Status Date / Time No Known Allergies Allergy Verified 04/05/21 18:43 Vital Signs Temp 97.6 F 04/06/21 06:26 Pulse 83 04/06/21 08:00 Resp 18 04/06/21 06:26 BP 108/73 04/06/21 08:00 Pulse Ox 100 04/05/21 16:03 Intake & Output 04/05/21 04/06/21 04/06/21 18:59 06:59 18:59 Weight 88.451 kg Laboratory Last Values WBC 6.7 k/uL (3.8-10.6) 04/05/21 19:13 RBC 4.78 m/uL (4.30-5.90) 04/05/21 19:13 Hgb 15.1 gm/dL (13.0-17.5) 04/05/21 19:13 Hct 44.1 % (39.0-53.0) 04/05/21 19:13 MCV 92.4 fL (80.0-100.0) 04/05/21 19:13 MCH 31.6 pg (25.0-35.0) 04/05/21 19:13 MCHC 34.2 g/dL (31.0-37.0) 04/05/21 19:13 RDW 12.6 % (11.5-15.5) 04/05/21 19:13 Plt Count 194 k/uL (150-450) 04/05/21 19:13 MPV 6.5 04/05/21 19:13 Neutrophils % 50 % 04/05/21 19:13 Lymphocytes % 34 % 04/05/21 19:13 Monocytes % 4 % 04/05/21 19:13 Eosinophils % 10 % 04/05/21 19:13 Basophils % 1 % 04/05/21 19:13 Neutrophils # 3.4 k/uL (1.3-7.7) 04/05/21 19:13 Lymphocytes # 2.3 k/uL (1.0-4.8) 04/05/21 19:13 Monocytes # 0.3 k/uL (0-1.0) 04/05/21 19:13 Eosinophils # 0.7 k/uL (0-0.7) 04/05/21 19:13 Basophils # 0.1 k/uL (0-0.2) 04/05/21 19:13 Sodium 141 mmol/L (137-145) 04/05/21 19:13 Potassium 4.2 mmol/L (3.5-5.1) 04/05/21 19:13 Chloride 109 mmol/L (98-107) H 04/05/21 19:13 Carbon Dioxide 23 mmol/L (22-30) 04/05/21 19:13 Anion Gap 9 mmol/L 04/05/21 19:13 BUN 10 mg/dL (9-20) 04/05/21 19:13 Creatinine 0.82 mg/dL (0.66-1.25) 04/05/21 19:13 Est GFR (CKD-EPI)AfAm >90 (>60 ml/min/1.73 sqM) 04/05/21 19:13 Est GFR (CKD-EPI)NonAf >90 (>60 ml/min/1.73 sqM) 04/05/21 19:13 Glucose 97 mg/dL (74-99) 04/05/21 19:13 Calcium 9.6 mg/dL (8.4-10.2) 04/05/21 19:13 Total Bilirubin 0.2 mg/dL (0.2-1.3) 04/05/21 19:13 AST 20 U/L (17-59) 04/05/21 19:13 ALT 13 U/L (4-49) 04/05/21 19:13 Alkaline Phosphatase 139 U/L (38-126) H 04/05/21 19:13 Total Protein 7.6 g/dL (6.3-8.2) 04/05/21 19:13 Albumin 4.6 g/dL (3.5-5.0) 04/05/21 19:13 Urine Opiates Screen Not Detected (NotDetected) 04/05/21 18:03 Ur Oxycodone Screen Not Detected (NotDetected) 04/05/21 18:03 Urine Methadone Screen Not Detected (NotDetected) 04/05/21 18:03 Ur Propoxyphene Screen Not Detected (NotDetected) 04/05/21 18:03 Ur Barbiturates Screen Detected (NotDetected) H 04/05/21 18:03 Carbamazepine 4.8 ug/mL 04/05/21 19:13 U Tricyclic Antidepress Not Detected (NotDetected) 04/05/21 18:03 Ur Phencyclidine Scrn Not Detected (NotDetected) 04/05/21 18:03 Ur Amphetamines Screen Not Detected (NotDetected) 04/05/21 18:03 U Methamphetamines Scrn Not Detected (NotDetected) 04/05/21 18:03 Phenobarbital 28.3 ug/mL (15.0-40.0) 04/05/21 19:13 U Benzodiazepines Scrn Not Detected (NotDetected) 04/05/21 18:03 Urine Cocaine Screen Not Detected (NotDetected) 04/05/21 18:03 U Marijuana (THC) Screen Not Detected (NotDetected) 04/05/21 18:03 04/06/21 08:16 Identification: Stephan lyle is a 31 years old white male living in [facility]. He was readmitted to [facility] since he had threatened to kill himself. History of present illness: Patient is at very poor and uncooperative historian. He said he and his for 9 years have been having arguments for a long time including fights in the past. Apparently they had another argument yesterday following which his threatened to leave him. At that point he felt suicidal and called his mother that he had a knife to kill himself. Apparently his mother called the police who brought him here. He did not actually try to stab or cut himself. He said he has been depressed for several years. But he cannot describe the symptoms of depression. He said he was told that he has bipolar disorder and he could not tell me the details of depression or manic episodes. He said he does not hear voices and does not have any other unusual feelings. Previous psychiatric history/drug and alcohol abuse: He said he was in psychiatric hospitals about 33 times. He does not have any outpatient treatment and does not take any psychiatric medication. He was taking several medications including lithium in the past. But he said none of the medications had helped him. He denies abusing drugs and alcohol including smoking cigarettes. He said he has associate degree in [employer] and is not working currently and gets Social Security disability. He refused to provide further information and walked out of the examination. Previous medical history: He said he does not have any physical problems except for seizure disorder. He did not have any surgery. He is not ALLERGIC to any medication. Family history: He said he does not know anything about it. Mental status examination: This is a right ambulatory male with adequate hygiene. He is poorly shaven. He is uncooperative has quite a bit of dysarthria and is not easy to understand. He is uncooperative and refuses to provide good information and complete the examination. He walked out and really during the middle of the examination and slammed the door. His speech is nonspontaneous and has severe dysarthria. He is goal-directed then he will answer the questions. Mood is angry and affect is rather increased in intensity. He had denied hallucinations and delusional thinking. He walked out before suicide and homicidal thoughts couldn't be assessed. Even though his cognitive functions could not be formally assessed it appears to be intact as evidenced by his explanation of present illness including problems with his the medications he is taking and information that none of the medications had helped him. Diagnostic impression: Adjustment disorder with mixed disturbance in mood and conduct. Medical problems. Seizure disorder. Plan: Continue his antiseizure medications, when necessary medications of Ativan for aggressive behavior, gather more information about his psychiatric and family situation. He will have physical examination by an fixed wing aircraft flight mechanic/family doctor. Discharge with outpatient follow-up.
--- NOTE | 2021-04-06 15:26 | P.MDCNMH ---
History of Present Illness H&P Date: 04/06/21 ( ) HISTORY OF PRESENT ILLNESS This is a 31-year-old male patient, he has not yet been established with Dr. Samson, past medical history of seizure disorder, migraine headaches, anxiety and depression, intellectual disability, verbal ataxia. Patient is seen today on the mental health unit. He states his neurologist as at [facility]. He states he got into an argument with his and she threatened to leave. He gives history of trying to kill himself 32 times in the past and has been admitted to hospital on multiple occasions. He has been afebrile, heart rate 83, blood pressure 108/73, pulse ox 100% on room air. CBC is within normal limits. Electrolytes are all normal except for chloride of 109. Renal function is normal. Liver function test is normal except for alkaline phosphatase 139. Urine drug screen positive for barbiturates. Carbamazepine level IV.8. Phenobarbital 28.3. Patient has been admitted to the mental health unit. REVIEW OF SYSTEMS Constitutional: No fever, no chills, no night sweats. No weight change. No weakness, fatigue or lethargy. No daytime sleepiness. EENT: No headache. No blurred vision or double vision, no loss of vision. No loss of Hearing, no ringing in the ears, no dizziness. No nasal drainage or congestion. No epistaxis. No sore throat. Lungs: No shortness of breath, cough, no sputum production. No wheezing. Cardiovascular: No chest pain, no lower extremity edema. No palpitations. No paroxysmal nocturnal dyspnea. No orthopnea. No lightheadedness or dizziness. No syncopal episodes. Abdominal: No abdominal pain. No nausea, vomiting. No diarrhea. No constipation. No bloody or tarry stools.. No loss of appetite. Genitourinary: No dysuria, increased frequency, urgency. No urinary retention. Musculoskeletal: No myalgias. No muscle weakness, no gait dysfunction, no frequent falls. No back pain. No neck pain. Integumentary: No wounds, no lesions. No rash or pruritus. No unusual bruising. No change in hair or nails. Neurologic: No aphasia. No facial droop. No change in mentation. No head injury. No headache. No paralysis. No paresthesia. Psychiatric: Reports depression. Reports anxiety. Reports mood swings. Endocrine: No abnormal blood sugars. No weight change. No excessive sweating or thirst. No cold intolerance. SOCIAL HISTORY Patient states he does not smoke, use alcohol, use illicit drugs. Lives at home with his and 1 son. FAMILY HISTORY When asked about his mother and father's history he states I don't care. Patient has 1 brother and 4 sisters and he also does not know their medical history. He has 1 son with epilepsy. PHYSICAL EXAMINATION Gen: This is a 31-year-old male patient seen in his room on the mental health unit. Patient appears to be in no acute distress. HEENT: Head is atraumatic, normocephalic. Pupils equal, round. Sclerae is anicteric. NECK: Supple. No JVD. No lymphadenopathy. No thyromegaly. LUNGS: Clear to auscultation. No wheezes or rhonchi. No intercostal retractions. HEART: Regular rate and rhythm. No murmur. ABDOMEN: Soft. Bowel sounds are present. No masses. No tenderness. EXTREMITIES: No pedal edema. No calf tenderness. NEUROLOGICAL: Patient is awake, alert and oriented x3. Cranial nerves 2 through 12 are grossly intact. ASSESSMENT AND PLAN 1. Recurrent depression with suicidal ideation. Patient admitted to the mental health unit, continue plan per psychiatry. 2. History of seizure disorder follows with neurologist at [facility]. Continue Tegretol 200 mg twice daily and 400 mg at bedtime, Lamictal 200 mg twice daily, phenobarbital 129.6 mg at bedtime. 3. History of migraine headaches. No complaints of headache. 4. Denies tobacco use or alcohol use. DISCHARGE PLAN Home. Follow up with Dr. Samson 1 week after discharge from U. Impression and plan of care have been directed as dictated by the signing physician. Gracie Suárez nurse practitioner acting as scribe for signing physician. Past Medical History Past Medical History: GERD/Reflux, Seizure Disorder, Skin Disorder, Thyroid Disorder Additional Past Medical History / Comment(s): has history of epilepsy, hx grand mal seizures since childhood, migraines, acne, History of Any Multi-Drug Resistant Organisms: None Reported, Unobtainable Past Surgical History: Adenoidectomy, Appendectomy, Cholecystectomy, Tonsill ectomy Additional Past Surgical History / Comment(s): oral surgery Past Anesthesia/Blood Transfusion Reactions: Previous Problems w/ Anesthesia Additional Past Anesthesia/Blood Transfusion Reaction / Comment(s): SLOW TO WAKE FROM ANESTHESIA" Smoking Status: Never smoker - Past Family History Mother Family Medical History: Cancer Additional Family Medical History / Comment(s): breast cancer Medications and Allergies Home Medications Medication Instructions Recorded Confirmed Type PHENobarbital 129.6 mg PO HS 10/19/18 04/05/21 History carBAMazepine [TEGretol XR] 400 mg PO HS 10/19/18 04/05/21 History lamoTRIgine [LaMICtal] 200 mg PO BID #0 06/28/20 04/05/21 Rx LORazepam [Ativan] 1 mg PO BID PRN 10/10/20 04/05/21 History carBAMazepine [TEGretol] 200 mg PO BID 10/10/20 04/05/21 History [place] Carbonate 300 mg PO DIRECTED 11/13/20 04/05/21 History [place] Carbonate [[place] 450 mg PO DIRECTED 03/09/21 04/05/21 History Carbonate ER] Xcopri 250mg 300 mg PO HS 04/03/21 04/06/21 History Allergies Allergy/AdvReac Type Severity Reaction Status Date / Time No Known Allergies Allergy Verified 04/05/21 18:43 Physical Exam Vitals: Vital Signs Temp Pulse Pulse Resp BP BP Pulse Ox 04/06/21 08:00 83 108/73 04/06/21 06:26 97.6 F 102 H 18 126/70 04/05/21 16:03 98.1 F 71 16 124/88 100 Intake and Output 04/05/21 04/06/21 04/06/21 22:59 06:59 14:59 Other: Weight 88.451 kg Cranial Nerve Examination - Cranial Nerves Cranial Nerve I- Olfactory: Intact Cranial Nerve II- Optic: Intact Cranial Nerve III- Oculomotor: Intact Cranial Nerve IV- Trochlear: Intact Cranial Nerve V- Trigeminal: Intact Cranial Nerve - Abducens: Intact Cranial Nerve VII- Facial: Intact Cranial Nerve VIII- Auditory: Intact Cranial Nerve IX- Glossopharyngeal: Intact Cranial Nerve X- Vagus: Intact Cranial Nerve XI- Accessory: Intact Cranial Nerve XII- Hypoglossal: Intact Results CBC & Chem 7: 04/05/21 19:13 04/05/21 19:13 Labs: Abnormal Lab Results - Last 24 Hours (Table) 04/05/21 04/05/21 Range/Units 18:03 19:13 Chloride 109 H (98-107) mmol/L Alkaline Phosphatase 139 H (38-126) U/L Ur Barbiturates Screen Detected H (NotDetected)
[2021-04-06] MEDS: carBAMazepine 400 MG TAB.ER.12H PO SCH (20:57)
[2021-04-06] MEDS: CENOBAMATE PO SCH (20:57)
[2021-04-06] MEDS ORDERED: CENOBAMATE PO SCH (21:00)
[2021-04-07] MEDS: NICOTINE 21MG/24HR PATCH TRANSDERM SCH (08:14)
[2021-04-07] MEDS: carBAMazepine 200 MG TAB PO SCH ×2 (08:15→21:01)
[2021-04-07] MEDS: lamoTRIgine 100 MG TAB PO SCH ×2 (08:16→21:02)
--- NOTE | 2021-04-07 14:14 | P.PN ---
Progress Note - Text Progress Note Date: 04/07/21 Interval History: Patient was seen in the room and was directable and agreeable to speak with promotion writer . 31-year-old male presenting with mental health evaluation. Suicidal comments. He has been petitioned by police. He threatened to kill himself with a knife. Patient denies any auditory, visual hallucinations and denies any paranoia or delusions. Patient denies any side effects from the medications and has been compliant with meds. Mental Status Exam: General Appearance: Patient appears to be stated age is alert, directable, and cooperative. Behavior: Patient is calmly seated without any agitated behavior. Speech: Patient's speech is fluent and nonpressured. Mood/Affect: Mood is improving mildly, affect is congruent and constricted. Suicidality/Homicidality: Patient denies having any suicidal or homicidal ideation intent or plan. Perceptions: Patient denies any visual hallucinations and denies any auditory hallucinations Though content/process: There is no evidence of any delusional thought content and thought process is linear and goal-directed. Memory and concentration: AOX3, grossly intact for the purposes of this session Judgment and insight: Improving mildly Assessment Adjustment disorder with mixed disturbance in mood and conduct. Medical problems. Seizure disorder. Plan: -Patient continues to meet criteria for inpatient psychiatric admission for symptom stabilization and safety. -Medications: Continue medication as before -When necessary Ativan and Haldol for agitation/aggression. -SW on board for discharge planning. Encouraged the patient to participate in milieu.
[2021-04-07] MEDS: CENOBAMATE PO SCH (21:02)
[2021-04-07] MEDS: carBAMazepine 400 MG TAB.ER.12H PO SCH (21:02)
[2021-04-07] MEDS: LORazepam 1 MG TAB PO PRN (21:32)
[2021-04-08] MEDS: NICOTINE 21MG/24HR PATCH TRANSDERM SCH (08:12)
[2021-04-08] MEDS: carBAMazepine 200 MG TAB PO SCH ×2 (08:13→20:16)
[2021-04-08] MEDS: lamoTRIgine 100 MG TAB PO SCH ×2 (08:13→20:16)
--- NOTE | 2021-04-08 10:30 | P.PN ---
Progress Note - Text Progress Note Date: 04/08/21 Interval History: Patient was seen in the room and was directable and agreeable to speak with tag writer . He threatened to kill himself with a knife. He denies suicide attempt but has had increased depression and suicidal ideation.. At this time patient denies any suicidal or homical ideations, intent or plan. Patient denies any auditory, visual hallucinations and denies any paranoia or delusions. Patient denies any side effects from the medications and has been compliant with meds. Mental Status Exam: General Appearance: Patient appears to be stated age is alert, directable, and cooperative. Behavior: Patient is calmly seated without any agitated behavior. Speech: Patient's speech is fluent and nonpressured. Mood/Affect: Mood is improving mildly, affect is congruent and constricted. Suicidality/Homicidality: Patient denies having any suicidal or homicidal ideation intent or plan. Perceptions: Patient denies any visual hallucinations and denies any auditory hallucinations Though content/process: There is no evidence of any delusional thought content and thought process is linear and goal-directed. Memory and concentration: AOX3, grossly intact for the purposes of this session Judgment and insight: Improving mildly Assessment [Adjustment disorder with mixed disturbance in mood and conduct. Medical problems. Seizure disorder. Plan: -Patient continues to meet criteria for inpatient psychiatric admission for symptom stabilization and safety. -Medications: Continue medication as before -When necessary Ativan and Haldol for agitation/aggression. -SW on board for discharge planning. Encouraged the patient to participate in milieu.
[2021-04-08] MEDS: carBAMazepine 400 MG TAB.ER.12H PO SCH (20:16)
[2021-04-08] MEDS: LORazepam 1 MG TAB PO PRN (20:18)
[2021-04-08] MEDS: CENOBAMATE PO SCH (20:30)
[2021-04-09] MEDS: lamoTRIgine 100 MG TAB PO SCH ×2 (08:18→20:50)
[2021-04-09] MEDS: carBAMazepine 200 MG TAB PO SCH ×2 (08:18→20:50)
[2021-04-09] MEDS: NICOTINE 21MG/24HR PATCH TRANSDERM SCH (08:18)
--- NOTE | 2021-04-09 08:55 | P.PN ---
Progress Note - Text Progress Note Date: 04/09/21 Interval History: Patient was seen wandering the hallways and was directable and agreeable to susy lomeli with race and sports book writer in the office. Patient appears to be constricted in his affect today and spoke about coming to the hospital on April 05. He states that he was feeling suicidal at home and put a knife to his abdomen. He claims that he has been off his psychiatric meds for 2 months as he claims that his neurologist told him to stop taking all of them. He states that he has been having a difficult time controlling his seizures. He claims that he is on the right seizure medications at this time prescribed by his neurologist. He states that he is feeling mildly depressed today and speaks in a monotone voice. He claims that his mother has been putting pressure on him and his and his child to leave her house and states that "if I get a divorce with my then she'll let me stay as long as a need". He claims that he does not trust [facility] and wants to move to [facility]. At this time patient denies any suicidal or homical ideations, intent or plan. Patient denies any auditory, visual hallucinations and denies any paranoia or delusions. Patient denies any side effects from the medications and has been compliant with meds. Mental Status Exam: General Appearance: Patient appears to be stated age is alert, directable, and attempts to be cooperative. Behavior: Patient is calmly seated without any agitated behavior. Constricted Speech: Patient's speech is fluent and nonpressured. Monotone Mood/Affect: Mood is depressed, affect is congruent and constricted. Suicidality/Homicidality: Patient denies having any suicidal or homicidal ideation intent or plan. Perceptions: Patient denies any visual hallucinations and denies any auditory hallucinations Though content/process: There is no evidence of any delusional thought content and thought process is linear and goal-directed. Focusing on negative thoughts. Memory and concentration: AOX3, grossly intact for the purposes of this session Judgment and insight: poor chronically, Improving mildly Assessment Major depressive disorder, recurrent, severe without psychotic features Suicide ideations Minor neurocognitive disorder Seizure disorder Housing difficulties Plan: -Patient continues to meet criteria for inpatient psychiatric admission for symptom stabilization and safety. Patient has signed adult voluntary form and medication consent and was placed in patient's chart. -Medications: Started patient on Zoloft 50 mg daily for mood/anxiety. Continue with home dose of seizure medications. -Will attempt to speak with patient's neurologist today over the phone for any further collateral information and also verifying his medications. -When necessary Ativan and Haldol for agitation/aggression. -NRT - not needed as patient does not smoke. -SW on board for discharge planning. Encouraged the patient to participate in milieu. Likely discharge in 1-2 days.
[2021-04-09] MEDS: SERTRALINE 50 MG TAB PO SCH (09:19)
[2021-04-09 09:43] VITALS: RESP 16
[2021-04-09] MEDS: CENOBAMATE PO SCH (20:47)
[2021-04-09] MEDS: carBAMazepine 400 MG TAB.ER.12H PO SCH (20:50)
[2021-04-09] MEDS ORDERED: XCOPRI PO SCH (21:00)
[2021-04-09] MEDS: LORazepam 1 MG TAB PO PRN (21:02)
[2021-04-10 07:19] VITALS: TEMP 97.7
[2021-04-10] MEDS: carBAMazepine 200 MG TAB PO SCH ×2 (08:23→20:41)
[2021-04-10] MEDS: SERTRALINE 50 MG TAB PO SCH (08:23)
[2021-04-10] MEDS: lamoTRIgine 100 MG TAB PO SCH ×2 (08:23→20:42)
[2021-04-10] MEDS: FLUoxetine HCL 20 MG CAP PO SCH (09:21)
--- NOTE | 2021-04-10 09:25 | P.PN ---
Progress Note - Text Progress Note Date: 04/10/21 Interval History: Patient was seen wandering the hallways and was directable and agreeable to sp eak with investigative writer in the office. Patient appeared to be more persistent with speaking with investigative writer today. He appeared to be mildly upset and states that he did not take his Zoloft this morning "that's why I feel better". He continues to state that he feels that the antidepressant medications have a side effect that can cause seizures. He listed off several different antidepressant medications that she does not want to take however when he was offered Prozac he states that he will consider it. He claims that he has been going to some groups. He states that his mood is "fine" and has a constricted affect. He is denying any anxiety or depression today. He was argumentative at times during the interview about his medications and treatment plan. He claims that he does not trust [facility] and wants to move to [facility] eventually. At this time patient denies any suicidal or homical ideations, intent or plan. Patient denies any auditory, visual hallucinations and denies any paranoia or delusions. Patient denies any side effects from the medications and has been compliant with meds. Mental Status Exam: General Appearance: Patient appears to be stated age is alert, directable, and argumentative at times. Behavior: Patient is calmly seated without any agitated behavior. Constricted Speech: Patient's speech is fluent and nonpressured. Monotone Mood/Affect: Mood is "fine", affect is congruent and constricted. Suicidality/Homicidality: Patient denies having any suicidal or homicidal ideation intent or plan. Perceptions: Patient denies any visual hallucinations and denies any auditory hallucinations Though content/process: There is no evidence of any delusional thought content and thought process is linear and goal-directed. Memory and concentration: AOX3, grossly intact for the purposes of this session Judgment and insight: poor chronically, Improving mildly Assessment Major depressive disorder, recurrent, severe without psychotic features Suicide ideations Minor neurocognitive disorder Seizure disorder Housing difficulties Plan: -Patient continues to meet criteria for inpatient psychiatric admission for symptom stabilization and safety. Patient has signed adult voluntary form and medication consent and was placed in patient's chart. -Medications: Discontinued off of Zoloft due to patient's request and started Prozac 20 mg daily for mood/anxiety. Spoke with patient about the various side effects and benefits of this medication. Continue with home dose of seizure medications. -attempted to speak with patient's neurologist over the phone, left a message and currently awaiting a call back for any further collateral information and also verifying his medications. -When necessary Ativan and Haldol for agitation/aggression. -NRT - not needed as patient does not smoke. -SW on board for discharge planning. Encouraged the patient to participate in milieu. Likely discharge back home tomorrow.
[2021-04-10] MEDS: LORazepam 1 MG TAB PO PRN ×2 (12:09→20:57)
[2021-04-10] MEDS: carBAMazepine 400 MG TAB.ER.12H PO SCH (20:42)
[2021-04-10] MEDS: CENOBAMATE PO SCH (20:42)
[2021-04-11] MEDS: FLUoxetine HCL 20 MG CAP PO SCH (07:55)
[2021-04-11] MEDS: carBAMazepine 200 MG TAB PO SCH (07:55)
[2021-04-11] MEDS: lamoTRIgine 100 MG TAB PO SCH (07:55)
[2021-04-11 08:30] VITALS: BP 114/71; PULSE 77
--- NOTE | 2021-04-11 09:24 | P.DS ---
Providers Date of admission: 04/05/21 19:48 Expected date of discharge: 04/11/21 Attending physician: Blane Paul MD Consults: 04/05/21 19:34 Consult Physician Routine Consulting Provider: Ana Maria Samson Consult Reason/Comments: admission Do you want consulting provider notified?: Yes, Notify in am Primary care physician: Ana Maria Samson - Discharge Diagnosis(es) (1) Major depressive disorder, recurrent severe without psychotic features Current Visit: Yes Status: Acute Priority: High (2) Suicidal ideations Current Visit: Yes Status: Acute Priority: Medium (3) Intellectual disability Current Visit: Yes Status: Acute Priority: Medium (4) Seizure disorder Current Visit: Yes Status: Acute Priority: Medium (5) Housing problems Current Visit: Yes Status: Acute Priority: Medium Hospital Course: Admission HPI: Admission note was completed by Dr. Anthony "Stephan lyle is a 31 years old white male living in [facility]. He was readmitted to [facility] since he had threatened to kill himself. Patient is at very poor and uncooperative historian. He said he and his for 9 years have been having arguments for a long time including fights in the past. Apparently they had another argument yesterday following which his threatened to leave him. At that point he felt suicidal and called his mother that he had a knife to kill himself. Apparently his mother called the police who brought him here. He did not actually try to stab or cut himself. He said he has been depressed for several years. But he cannot describe the symptoms of depression. He said he was told that he has bipolar disorder and he could not tell me the details of depression or manic episodes. He said he does not hear voices and does not have any other unusual feelings." Hospital course: Upon admission to the unit patient was initially depressed and suicidal. Patient was however directable and agreeable to commence treatment and signed adult voluntary form. Patient got along well with other patients on the unit and followed unit protocol. Patient was restarted back on his antiepileptic medications from home. Patient was also offered to be started on an antidepressant medication. Was given several options however patient took 1 dose of Zoloft and stopped taking the medication and refused to take any other antidepressant medications as he wanted to speak with his neurologist about it. Sterilization Tech attempted to call patient's neurologist Dr Peter Denise over the phone and left a message with his guidance secretary however did not receive a call back. Patient spoke of his stressors and engaged in group therapy. Patient was also seen by medical team for history and physical exam. Throughout the course of the hospitalization patient gradually improved with regards to mood, anxiety, sleep and return back to his baseline level of functioning. He continues to have chronically poor insight into his mental illness. On the day of discharge patient denied any suicidal or homicidal ideations intent or plan denied any auditory or visual hallucinations. Patient endorsed wanting to live for his health and family. The patient denied any access to guns or weapons. Patient denied any paranoia and did not endorse any delusions. Patient does not have a significant history of substance abuse however was counseled on abstaining from all substances including alcohol and marijuana. Patient was also counseled on the medications and need for regular compliance and was encouraged to follow-up with their outpatient appointment for mental health and also for primary care. Prior to discharge a family meeting will be arranged by psychiatric social worker supervisor to answer any questions and ensure safety upon discharge. Mental status exam: General Appearance: Patient appears to be stated age is alert, directable, and cooperative. Patient is in no acute distress and has improved hygiene and grooming Behavior: Patient is calmly seated without any agitated behavior. Speech: Patient's speech is fluent and nonpressured. Mood/Affect: Patient reports their mood is "good", affect is congruent Suicidality/Homicidality: Patient denies having any suicidal or homicidal ideation intent or plan. Perceptions: Patient denies any auditory or visual hallucinations. Though content/process: There is no evidence of any delusional thought content and thought process is linear and goal-directed. Natalia Memory and concentration: AOX3, grossly intact for the purposes of this session. Can spell "WORLD" backwards correctly. Judgment and insight: chronically poor, however has improved with guarded prognosis Impression: Major depressive disorder, recurrent, severe without psychotic features Suicidal ideations Seizure disorder Intellectual disability Housing difficulties Plan: -Continue with discharge today as patient has improved and stabilized psychiatrically and is not currently an imminent threat to himself and/or others. Patient will remain at chronically elevated risk for harm to self and/or others due to his impulsivity and chronically poor insight. -Continue medications: Patient is not willing to take any antidepressants at this time despite being given various options. He claims that he wants to speak with his neurologist about his psychiatric medications. Patient can continue on his home dose of his antiepileptic medications -Patient was counseled on the need for medication compliance and appropriate follow-up at mental health and also primary care for medical issues. Patient verbalized understanding and agreed. -Patient to follow up with his neurologist in 2-3 weeks -Social work to arrange for and conduct family meeting to ensure safety upon discharge and answer any questions/concerns. Social work also to arrange for patients follow up appointments for psychiatric care along with follow up with primary care provider. -Patient counseled on abstaining from recreational drugs and marijuana and alcohol. Was informed/educated on the adverse effects on their physical and mental health. Patient verbally agreed and understood. -Patient was instructed to return to the hospital or seek immediate medical care if their psychiatric or medical symptoms do worsen or reoccur. Allergies Allergy/AdvReac Type Severity Reaction Status Date / Time No Known Allergies Allergy Verified 04/05/21 18:43 Laboratory Results WBC 6.7 k/uL (3.8-10.6) 04/05/21 19:13 RBC 4.78 m/uL (4.30-5.90) 04/05/21 19:13 Hgb 15.1 gm/dL (13.0-17.5) 04/05/21 19:13 Hct 44.1 % (39.0-53.0) 04/05/21 19:13 MCV 92.4 fL (80.0-100.0) 04/05/21 19:13 MCH 31.6 pg (25.0-35.0) 04/05/21 19:13 MCHC 34.2 g/dL (31.0-37.0) 04/05/21 19:13 RDW 12.6 % (11.5-15.5) 04/05/21 19:13 Plt Count 194 k/uL (150-450) 04/05/21 19:13 MPV 6.5 04/05/21 19:13 Neutrophils % 50 % 04/05/21 19:13 Lymphocytes % 34 % 04/05/21 19:13 Monocytes % 4 % 04/05/21 19:13 Eosinophils % 10 % 04/05/21 19:13 Basophils % 1 % 04/05/21 19:13 Neutrophils # 3.4 k/uL (1.3-7.7) 04/05/21 19:13 Lymphocytes # 2.3 k/uL (1.0-4.8) 04/05/21 19:13 Monocytes # 0.3 k/uL (0-1.0) 04/05/21 19:13 Eosinophils # 0.7 k/uL (0-0.7) 04/05/21 19:13 Basophils # 0.1 k/uL (0-0.2) 04/05/21 19:13 Sodium 141 mmol/L (137-145) 04/05/21 19:13 Potassium 4.2 mmol/L (3.5-5.1) 04/05/21 19:13 Chloride 109 mmol/L (98-107) H 04/05/21 19:13 Carbon Dioxide 23 mmol/L (22-30) 04/05/21 19:13 Anion Gap 9 mmol/L 04/05/21 19:13 BUN 10 mg/dL (9-20) 04/05/21 19:13 Creatinine 0.82 mg/dL (0.66-1.25) 04/05/21 19:13 Est GFR (CKD-EPI)AfAm >90 (>60 ml/min/1.73 sqM) 04/05/21 19:13 Est GFR (CKD-EPI)NonAf >90 (>60 ml/min/1.73 sqM) 04/05/21 19:13 Glucose 97 mg/dL (74-99) 04/05/21 19:13 Calcium 9.6 mg/dL (8.4-10.2) 04/05/21 19:13 Total Bilirubin 0.2 mg/dL (0.2-1.3) 04/05/21 19:13 AST 20 U/L (17-59) 04/05/21 19:13 ALT 13 U/L (4-49) 04/05/21 19:13 Alkaline Phosphatase 139 U/L (38-126) H 04/05/21 19:13 Total Protein 7.6 g/dL (6.3-8.2) 04/05/21 19:13 Albumin 4.6 g/dL (3.5-5.0) 04/05/21 19:13 Urine Opiates Screen Not Detected (NotDetected) 04/05/21 18:03 Ur Oxycodone Screen Not Detected (NotDetected) 04/05/21 18:03 Urine Methadone Screen Not Detected (NotDetected) 04/05/21 18:03 Ur Propoxyphene Screen Not Detected (NotDetected) 04/05/21 18:03 Ur Barbiturates Screen Detected (NotDetected) H 04/05/21 18:03 Carbamazepine 4.8 ug/mL 04/05/21 19:13 U Tricyclic Antidepress Not Detected (NotDetected) 04/05/21 18:03 Ur Phencyclidine Scrn Not Detected (NotDetected) 04/05/21 18:03 Ur Amphetamines Screen Not Detected (NotDetected) 04/05/21 18:03 U Methamphetamines Scrn Not Detected (NotDetected) 04/05/21 18:03 Phenobarbital 28.3 ug/mL (15.0-40.0) 04/05/21 19:13 U Benzodiazepines Scrn Not Detected (NotDetected) 04/05/21 18:03 Urine Cocaine Screen Not Detected (NotDetected) 04/05/21 18:03 U Marijuana (THC) Screen Not Detected (NotDetected) 04/05/21 18:03 Vital Signs Temp 97.7 F 04/10/21 07:17 Pulse 77 04/11/21 08:29 Resp 16 04/10/21 07:17 BP 114/71 04/11/21 08:29 Pulse Ox 97 04/10/21 07:17 Patient Condition at Discharge: Stable Plan - Discharge Summary New Discharge Prescriptions: New Acetaminophen Tab [Tylenol] 650 mg PO Q4HR PRN tab PRN Reason: Pain/Discomfort Continue PHENobarbital 129.6 mg PO HS carBAMazepine [TEGretol XR] 400 mg PO HS lamoTRIgine [LaMICtal] 200 mg PO BID #0 carBAMazepine [TEGretol] 200 mg PO BID Xcopri 250mg 300 mg PO HS Discontinued LORazepam [Ativan] 1 mg PO BID PRN PRN Reason: Anxiety Grenloch Carbonate 300 mg PO DIRECTED Grenloch Carbonate [Grenloch Carbonate ER] 450 mg PO DIRECTED Discharge Medication List PHENobarbital 129.6 mg PO HS 10/19/18 [History] carBAMazepine [TEGretol XR] 400 mg PO HS 10/19/18 [History] lamoTRIgine [LaMICtal] 200 mg PO BID #0 06/28/20 [Rx] carBAMazepine [TEGretol] 200 mg PO BID 10/10/20 [History] Xcopri 250mg 300 mg PO HS 04/03/21 [History] Acetaminophen Tab [Tylenol] 650 mg PO Q4HR PRN tab 04/11/21 [Rx] Follow up Appointment(s)/Referral(s): Ana Maria Samson MD [Primary Care Provider] - 1-2 days Activity/Diet/Wound Care/Special Instructions: Activity and diet as tolerated. Avoid the use of street drugs and alcohol. Take all medications as prescribed. When you are in need of refills on your medications please contact your medical provider and/or outpatient psychiatrist to have this done. Please go to scheduled outpatient appointment for aftercare treatment. If symptoms return or become worse, call the crisis line at and/or go to the nearest emergency room for evaluation. Discharge Disposition: HOME SELF-CARE
== END 2021-04-11 14:15 | disposition home or self-care (01) | DRG 885 ==
LOC: EC 15:52 → 3MHU 19:48
PROVIDERS: ADMIT Psychiatry & Neurology Psychiatry; ATTEND Psychiatry & Neurology Psychiatry
DX: F33.2 Major depressive disorder, recurrent severe without psychotic features (principal); R45.851 Suicidal ideations; F31.9 Bipolar disorder, unspecified; F43.22 Adjustment disorder with anxiety; F79 Unspecified intellectual disabilities; G40.409 Other generalized epilepsy and epileptic syndromes, not intractable, without status epilepticus; Z59.9 Problem related to housing and economic circumstances, unspecified; Z80.3 Family history of malignant neoplasm of breast
CPT/HCPCS: 36415; 70450; 72125; 80053; 80156; 80178; 80184; 80185; 80306; 80320; 82075; 83735; 85025; 93005; 99285

== ENCOUNTER 2021-05-11 01:04 | Emergency (ER) | payer MEDICARE, OTHER ==
[2021-05-11 01:10] VITALS: TEMP 99.1
[2021-05-11 01:45] LABS: Basophils % (A) 1 %; Eosinophils # (A) 0.5 k/uL (0-0.7); Eosinophils % (A) 6 %; HGB 15.1 gm/dL (13.0-17.5); Lymphocytes # (A) 1.2 k/uL (1.0-4.8); Lymphocytes % (A) 14 %; MCH 32.1 pg (25.0-35.0); MCHC 34.4 g/dL (31.0-37.0); MCV 93.3 fL (80.0-100.0); Mean Platelet Volume 6.4; Monocytes # (A) 0.3 k/uL (0-1.0); Monocytes % (A) 3 %; Neutrophils # (A) 6.6 k/uL (1.3-7.7); Neutrophils % (A) 76 %; Platelet Count 220 k/uL (150-450); RBC 4.71 m/uL (4.30-5.90); RDW 13.5 % (11.5-15.5); WBC 8.7 k/uL (3.8-10.6)
--- NOTE | 2021-05-11 01:56 | ED ---
Seizure HPI - General Chief Complaint: Seizure Stated Complaint: Seizure Time Seen by Provider: 05/11/21 01:16 Source: patient, police Mode of arrival: ambulatory Limitations: no limitations - History of Present Illness Initial Comments: Patient is a 31-year-old male, with history of seizure disorder, presenting to the emergency department from [facility] after having a seizure. According to the guard, patient was already laying on the ground when his seizure started, he did not fall. This is observed by his cellmate, guards were there approximately 30 seconds after his cellmate alerted the guards. This happened about an hour prior to arrival. He did take his medications about 30 minutes prior to the seizure. According to the guard, the seizure lasted for approximately 30 seconds. When the guard arrived, he was ready coming out of it. Patient is awake and alert, is answering questions appropriately. He states that he feels tired and fatigued but no specific complaints of pain. He denies having a headache, no blurry vision, no dizziness. He has been taking his medications as prescribed. He recently started a new medication called Xcopri. He follows closely with neurology at [facility]. He does not recall his last seizure. He denies any chest pain or shortness of breath, no abdominal pain, no nausea or vomiting. He has no pain in his extremities. His no further complaints. Upon arrival to the ER his vitals are stable. - Related Data Home Medications Medication Instructions Recorded Confirmed PHENobarbital 129.6 mg PO HS 10/19/18 04/05/21 carBAMazepine [TEGretol XR] 400 mg PO HS 10/19/18 04/05/21 carBAMazepine [TEGretol] 200 mg PO BID 10/10/20 04/05/21 Xcopri 250mg 300 mg PO HS 04/03/21 04/06/21 Previous Rx's Medication Instructions Recorded lamoTRIgine [LaMICtal] 200 mg PO BID #0 06/28/20 Acetaminophen Tab [Tylenol] 650 mg PO Q4HR PRN tab 04/11/21 Allergies Allergy/AdvReac Type Severity Reaction Status Date / Time No Known Allergies Allergy Verified 05/11/21 01:10 Review of Systems ROS Statement: Those systems with pertinent positive or pertinent negative responses have been documented in the HPI. ROS Other: All systems not noted in ROS Statement are negative. Past Medical History Past Medical History: GERD/Reflux, Seizure Disorder, Skin Disorder, Thyroid Disorder Additional Past Medical History / Comment(s): has history of epilepsy, hx grand mal seizures since childhood, migraines, acne, History of Any Multi-Drug Resistant Organisms: None Reported, Unobtainable Past Surgical History: Adenoidectomy, Appendectomy, Cholecystectomy, Tonsillectomy Additional Past Surgical History / Comment(s): oral surgery Past Anesthesia/Blood Transfusion Reactions: Previous Problems w/ Anesthesia Additional Past Anesthesia/Blood Transfusion Reaction / Comment(s): SLOW TO WAKE FROM ANESTHESIA" Past Psychological History: Anxiety, Depression Smoking Status: Never smoker Past Alcohol Use History: None Reported Past Drug Use History: None Reported - Past Family History Mother Family Medical History: Cancer Additional Family Medical History / Comment(s): breast cancer General Exam - General Exam Comments Initial Comments: GENERAL: Patient is well-developed and well-nourished. Patient is nontoxic and in no acute distress, patient seems slightly postictal but answering questions appropriately, awake and alert. HEAD: Atraumatic, normocephalic. He has no hematomas. EYES: Pupils equal round and reactive to light, extraocular movements intact, sclera anicteric, conjunctiva are normal. Eyelids were unremarkable. ENT: TMs normal, nares patent, oropharynx clear without exudates. Moist mucous membranes. NECK: Normal range of motion, supple without lymphadenopathy or JVD. No midline tenderness. LUNGS: Unlabored respirations. Breath sounds clear to auscultation bilaterally and equal. No wheezes rales or rhonchi. HEART: Regular rate and rhythm without murmurs, rubs or gallops. ABDOMEN: Soft, nontender, normoactive bowel sounds. No guarding, no rebound. No masses appreciated. : Deferred MUSCULOSKELETAL: Normal extremities with adequate strength and normal range of motion, no pitting or edema. No clubbing or cyanosis. NEUROLOGICAL: Patient is alert and oriented x 3. Motor and sensory are also intact. Cranial nerves II through XII grossly intact. Symmetrical smile. Normal speech, normal gait. PSYCH: Normal mood, normal affect. SKIN: Warm, Dry, normal turgor, no rashes or lesions noted. Limitations: no limitations Course Vital Signs 05/11/21 05/11/21 05/11/21 01:05 02:09 02:41 Temperature 99.1 F Pulse Rate 95 87 95 Respiratory 22 18 18 Rate Blood Pressure 131/74 133/81 121/81 O2 Sat by Pulse 96 96 97 Oximetry Medical Decision Making - Medical Decision Making Patient is a 31-year-old male with history of seizures, [facility] for having a seizure about an hour prior to arrival. He has been taking his medications as prescribed. He is seizure lasted approximately 30 seconds. He was already on the ground when it started, he did not fall, did not hit his head. Exam showing no acute findings. EKG showing normal sinus rhythm, no acute process. Patient seems tired but is alert and oriented, answering questions appropriately. Patient's labs reveal no acute findings. His vital signs remained stable. He is requesting something for his sore body aches. Given Toradol. I discussed with patient that his workup is within normal limits, did recommend following up with his neurologist at [facility] when he is out of [facility]. He is stable for discharge back to [facility]. He is agreeable to this plan of care. Return parameters were discussed with the mother verbalized understanding. Case discussed with Dr. Grant. - Lab Data Result diagrams: 05/11/21 01:34 05/11/21 01:34 Lab Results 05/11/21 05/11/21 Range/Units 01:34 01:34 WBC 8.7 (3.8-10.6) k/uL RBC 4.71 (4.30-5.90) m/uL Hgb 15.1 (13.0-17.5) gm/dL Hct 44.0 (39.0-53.0) % MCV 93.3 (80.0-100.0) fL MCH 32.1 (25.0-35.0) pg MCHC 34.4 (31.0-37.0) g/dL RDW 13.5 (11.5-15.5) % Plt Count 220 (150-450) k/uL MPV 6.4 Neutrophils % 76 % Lymphocytes % 14 % Monocytes % 3 % Eosinophils % 6 % Basophils % 1 % Neutrophils # 6.6 (1.3-7.7) k/uL Lymphocytes # 1.2 (1.0-4.8) k/uL Monocytes # 0.3 (0-1.0) k/uL Eosinophils # 0.5 (0-0.7) k/uL Basophils # 0.0 (0-0.2) k/uL Sodium 137 (137-145) mmol/L Potassium 4.4 (3.5-5.1) mmol/L Chloride 106 (98-107) mmol/L Carbon Dioxide 19 L (22-30) mmol/L Anion Gap 12 mmol/L BUN 11 (9-20) mg/dL Creatinine 0.80 (0.66-1.25) mg/dL Est GFR (CKD-EPI)AfAm >90 (>60 ml/min/1.73 sqM) Est GFR (CKD-EPI)NonAf >90 (>60 ml/min/1.73 sqM) Glucose 122 H (74-99) mg/dL Calcium 9.9 (8.4-10.2) mg/dL Total Bilirubin 0.5 (0.2-1.3) mg/dL AST 26 (17-59) U/L ALT 13 (4-49) U/L Alkaline Phosphatase 175 H (38-126) U/L Total Protein 8.0 (6.3-8.2) g/dL Albumin 4.8 (3.5-5.0) g/dL Phenytoin <3.0 ug/mL Valproic Acid <10.0 ug/mL Carbamazepine 3.7 ug/mL Ladson <0.2 mmol/L - EKG Data EKG Comments: Normal sinus rhythm, possible left atrial enlargement, no signs of acute ST segment elevation. Ventricular rate 87, NV interval 164, QT 356. Similar to previous on 04/03/2021. Disposition Clinical Impression: Seizure disorder, Seizure Disposition: HOME SELF-CARE Condition: Stable Instructions (If sedation given, give patient instructions): Recurrent Seizures in Adults (ED) Additional Instructions: Please return to the Emergency Department if symptoms worsen or any other concerns. Continue with your already prescribed medications. Please follow-up with your neurologist. Is patient prescribed a controlled substance at d/c from ED?: No Referrals: Ana Maria Samson MD [Primary Care Provider] - 1-2 days Time of Disposition: 02:41
[2021-05-11 02:06] LABS: ALT 13 U/L (4-49); AST 26 U/L (17-59); African American GFR (CKD) >90 (>60 ml/min/1.73 sqM); Albumin 4.8 g/dL (3.5-5.0); Alkaline Phosphatase 175 U/L (38-126); Anion Gap 12 mmol/L; Blood Urea Nitrogen 11 mg/dL (9-20); Calcium 9.9 mg/dL (8.4-10.2); Carbamazepine (Tegretol) 3.7 ug/mL; Carbon Dioxide 19 mmol/L (22-30); Chloride 106 mmol/L (98-107); Glucose 122 mg/dL (74-99); Lithium <0.2 mmol/L; Non-African American GFR(CKD) >90 (>60 ml/min/1.73 sqM); Phenytoin (Dilantin) <3.0 ug/mL; Potassium 4.4 mmol/L (3.5-5.1); Sodium 137 mmol/L (137-145); Total Bilirubin 0.5 mg/dL (0.2-1.3)
[2021-05-11 02:08] LABS: Valproic Acid (Depakene) <10.0 ug/mL
[2021-05-11] MEDS ORDERED: KETOROLAC 15 MG/ML 1 ML VIAL IVP STA (02:08)
[2021-05-11 02:16] VITALS: RESP 18
[2021-05-11 02:41] VITALS: BP 121/81; PULSE 95
== END 2021-05-11 03:00 | disposition home or self-care (01) ==
LOC: EC 01:04
DX: G40.909 Epilepsy, unspecified, not intractable, without status epilepticus (principal); Z79.899 Other long term (current) drug therapy
CPT/HCPCS: 36415; 93005; 80156; 80164; 80053; 80185; 80178; 85025; 99284; 96374; J1885

== ENCOUNTER 2021-07-22 15:06 | Emergency (ER) | payer MEDICARE, OTHER ==
[2021-07-22 15:49] VITALS: RESP 16
[2021-07-22] MEDS ORDERED: KETOROLAC 15 MG/ML 1 ML VIAL IM STA (16:35)
[2021-07-22] MEDS ORDERED: ORPHENADRINE 30 MG/ML 2 ML VIAL IM STA (16:35)
[2021-07-22] MEDS ORDERED: MORPHINE SULFATE 4 MG/ML SYRINGE IM STA (17:32)
--- NOTE | 2021-07-22 18:08 | ED ---
Back Pain HPI - General Chief Complaint: Back Pain/Injury Stated Complaint: Back Pain Time Seen by Provider: 07/22/21 16:35 Source: patient, RN notes reviewed Limitations: no limitations - History of Present Illness Initial Comments: Patient is a 31-year-old male that presents to emergency department complaining of left lower back spasms. He notes that he tried taking Motrin at home with no relief. Patient notes that he's been try to follow-up with chiropractor tomorrow. But once symptom medic relief at this time. Patient states that pain medication is usually 50-50 hit or miss. Patient denied any injury or trauma other than packing up house belongings for a soon to be move. Patient was otherwise well-appearing in no apparent distress. He denied any chest pain sh ortness of breath headache nausea vomiting diarrhea constipation fever fatigue chills. - Related Data Home Medications Medication Instructions Recorded Confirmed PHENobarbital 129.6 mg PO HS 10/19/18 04/05/21 carBAMazepine [TEGretol XR] 400 mg PO HS 10/19/18 04/05/21 carBAMazepine [TEGretol] 200 mg PO BID 10/10/20 04/05/21 Xcopri 250mg 300 mg PO HS 04/03/21 04/06/21 Previous Rx's Medication Instructions Recorded lamoTRIgine [LaMICtal] 200 mg PO BID #0 06/28/20 Acetaminophen Tab [Tylenol] 650 mg PO Q4HR PRN tab 04/11/21 Cyclobenzaprine HCl 10 mg PO TID 7 Days #21 tab 07/22/21 Allergies Allergy/AdvReac Type Severity Reaction Status Date / Time No Known Allergies Allergy Verified 07/22/21 15:49 Review of Systems ROS Statement: Those systems with pertinent positive or pertinent negative responses have been documented in the HPI. ROS Other: All systems not noted in ROS Statement are negative. Past Medical History Past Medical History: GERD/Reflux, Seizure Disorder, Skin Disorder, Thyroid Disorder Additional Past Medical History / Comment(s): has history of epilepsy, hx grand mal seizures since childhood, migraines, acne, History of Any Multi-Drug Resistant Organisms: None Reported, Unobtainable Past Surgical History: Adenoidectomy, Appendectomy, Cholecystectomy, Tonsillectomy Additional Past Surgical History / Comment(s): oral surgery Past Anesthesia/Blood Transfusion Reactions: Previous Problems w/ Anesthesia Additional Past Anesthesia/Blood Transfusion Reaction / Comment(s): SLOW TO WAKE FROM ANESTHESIA" Past Psychological History: Anxiety, Depression Smoking Status: Never smoker Past Alcohol Use History: None Reported Past Drug Use History: None Reported - Past Family History Mother Family Medical History: Cancer Additional Family Medical History / Comment(s): breast cancer General Exam Limitations: no limitations General appearance: alert, in no apparent distress Head exam: Present: atraumatic, normocephalic, normal inspection Eye exam: Present: normal appearance, PERRL, EOMI. Absent: scleral icterus, conjunctival injection, periorbital swelling ENT exam: Present: normal exam, mucous membranes moist Neck exam: Present: normal inspection Respiratory exam: Present: normal lung sounds bilaterally. Absent: respiratory distress, wheezes, rales, rhonchi, stridor Cardiovascular Exam: Present: regular rate, normal rhythm, normal heart sounds. Absent: systolic murmur, diastolic murmur, rubs, gallop, clicks GI/Abdominal exam: Present: soft, normal bowel sounds. Absent: distended, tenderness, guarding, rebound, rigid Extremities exam: Present: normal inspection, full ROM, normal capillary refill. Absent: tenderness, pedal edema, joint swelling, calf tenderness Back exam: Present: normal inspection, tenderness (Left lower back), paraspinal tenderness (left Side) Neurological exam: Present: alert, oriented X3 Psychiatric exam: Present: normal affect, normal mood Skin exam: Present: warm, dry, intact, normal color. Absent: rash Course Vital Signs 07/22/21 15:47 Temperature 98 F Pulse Rate 75 Respiratory 16 Rate Blood Pressure 120/77 O2 Sat by Pulse 99 Oximetry Medical Decision Making - Medical Decision Making 31-year-old male complaining of left lower back muscle spasms with no injury or trauma. 60 mg Norflex, 15 mg of Toradol ordered. Upon reevaluation patient states that medication helped minimally, requesting something stronger. 4 mg of morphine ordered. Patient was informed that this was mostly can do and he must follow-up with chiropractor and/or primary care for further management. Case discussed with Dr. Lucio, patient discharge home. Disposition Clinical Impression: Mechanical back pain Disposition: HOME SELF-CARE Condition: Stable Instructions (If sedation given, give patient instructions): Acute Low Back Pain (ED) Additional Instructions: Please return to the Emergency Department if symptoms worsen or any other concerns. Follow-up with primary care 1-2 days. Take medications as prescribed Is patient prescribed a controlled substance at d/c from ED?: No Referrals: Ana Maria Samson MD [Primary Care Provider] - 1-2 days Time of Disposition: 18:31
[2021-07-22] MEDS ORDERED: ACET/COD 300 MG/30 MG STARTER PACK 6 TAB BTL PO STA (18:30)
[2021-07-22 18:48] VITALS: BP 129/77; PULSE 77; TEMP 98.4
== END 2021-07-22 18:48 | disposition home or self-care (01) ==
LOC: EC 15:06
DX: M54.9 Dorsalgia, unspecified (principal); M62.830 Muscle spasm of back; Z90.49 Acquired absence of other specified parts of digestive tract
CPT/HCPCS: 99283; 96372; J2270; J2360; J1885

== ENCOUNTER 2021-10-02 23:03 | Inpatient (IN) | payer MEDICARE, MEDICAID ==
--- NOTE | 2021-10-02 23:43 | ED ---
Psych HPI - General Stated Complaint: Mental Health Time Seen by Provider: 10/02/21 23:09 Source: patient Mode of arrival: ambulatory - History of Present Illness MD Complaint: feels depressed -: week(s) Associated Psychiatric Symptoms: depression, suicidal ideation History of same: Yes Quality: getting worse Improves With: none Worsens With: none Associated Symptoms: denies other symptoms - Related Data Home Medications Medication Instructions Recorded Confirmed PHENobarbital 129.6 mg PO HS 10/19/18 04/05/21 carBAMazepine [TEGretol XR] 400 mg PO HS 10/19/18 04/05/21 carBAMazepine [TEGretol] 200 mg PO BID 10/10/20 04/05/21 Xcopri 250mg 300 mg PO HS 04/03/21 04/06/21 Previous Rx's Medication Instructions Recorded lamoTRIgine [LaMICtal] 200 mg PO BID #0 06/28/20 Acetaminophen Tab [Tylenol] 650 mg PO Q4HR PRN tab 04/11/21 Cyclobenzaprine HCl 10 mg PO TID 7 Days #21 tab 07/22/21 Allergies Allergy/AdvReac Type Severity Reaction Status Date / Time No Known Allergies Allergy Verified 10/02/21 23:11 Review of Systems ROS Statement: Those systems with pertinent positive or pertinent negative responses have been documented in the HPI. ROS Other: All systems not noted in ROS Statement are negative. Constitutional: Denies: fever, chills Respiratory: Denies: cough, dyspnea Cardiovascular: Denies: chest pain, palpitations Gastrointestinal: Denies: abdominal pain, vomiting, diarrhea Genitourinary: Denies: dysuria, hematuria Musculoskeletal: Denies: back pain Neurological: Denies: headache Psychiatric: Reports: depression, suicidal thoughts. Denies: auditory hallucinations, homicidal thoughts Past Medical History Past Medical History: GERD/Reflux, Seizure Disorder, Skin Disorder, Thyroid Disorder Additional Past Medical History / Comment(s): has history of epilepsy, hx grand mal seizures since childhood, migraines, acne, History of Any Multi-Drug Resistant Organisms: None Reported, Unobtainable Past Surgical History: Adenoidectomy, Appendectomy, Cholecystectomy, Tonsillectomy Additional Past Surgical History / Comment(s): oral surgery Past Anesthesia/Blood Transfusion Reactions: Previous Problems w/ Anesthesia Additional Past Anesthesia/Blood Transfusion Reaction / Comment(s): SLOW TO WAKE FROM ANESTHESIA" Past Psychological History: Anxiety, Depression Smoking Status: Never smoker Past Alcohol Use History: None Reported Past Drug Use History: None Reported - Past Family History Mother Family Medical History: Cancer Additional Family Medical History / Comment(s): breast cancer General Exam Limitations: no limitations General appearance: alert, in no apparent distress Head exam: Present: atraumatic, normocephalic Eye exam: Present: normal appearance. Absent: scleral icterus, conjunctival injection Respiratory exam: Present: normal lung sounds bilaterally. Absent: respiratory distress, wheezes, rales, rhonchi, stridor Cardiovascular Exam: Present: regular rate, normal rhythm, normal heart sounds. Absent: systolic murmur, diastolic murmur, rubs, gallop GI/Abdominal exam: Present: soft. Absent: distended, tenderness, guarding, rebound, rigid, mass Extremities exam: Present: normal inspection, normal capillary refill. Absent: pedal edema, calf tenderness Neurological exam: Present: alert Psychiatric exam: Present: depressed, flat affect, suicidal ideation. Absent: agitated, anxious, manic, homicidal ideation Skin exam: Present: warm, dry, intact, normal color. Absent: rash Course Vital Signs 10/02/21 23:05 Temperature 98.5 F Pulse Rate 76 Respiratory 18 Rate Blood Pressure 149/82 O2 Sat by Pulse 97 Oximetry Medical Decision Making - Lab Data Lab Results 10/03/21 Range/Units 01:31 Coronavirus (PCR) Not Detected (Not Detectd) Disposition Clinical Impression: Mood disorder Disposition: ADMITTED IP TO THIS [facility] Condition: Fair Is patient prescribed a controlled substance at d/c from ED?: No
[2021-10-03] MEDS ORDERED: ACETAMINOPHEN TAB 325 MG TAB PO PRN (03:04)
[2021-10-03] MEDS ORDERED: LORazepam 1 MG TAB PO PRN (03:04)
[2021-10-03] MEDS ORDERED: LORazepam 2 MG/ML INJ IM PRN (03:11)
[2021-10-03] MEDS ORDERED: HALOPERIDOL LACTATE 5 MG/ML 1 ML VIAL IM PRN (03:12)
[2021-10-03] MEDS ORDERED: MAG HYDROX/AL HYDROX/SIMETH 30 ML CUP PO PRN (04:00)
[2021-10-03 05:26] VITALS: BP 122/58; PULSE 74; RESP 15; TEMP 98.4
[2021-10-03 08:29] LABS: Basophils # (A) 0.1 k/uL (0-0.2); Basophils % (A) 1 %; Eosinophils # (A) 0.6 k/uL (0-0.7); Eosinophils % (A) 8 %; HCT 42.3 % (39.0-53.0); HGB 14.1 gm/dL (13.0-17.5); Lymphocytes # (A) 2.3 k/uL (1.0-4.8); Lymphocytes % (A) 30 %; MCH 31.9 pg (25.0-35.0); MCHC 33.4 g/dL (31.0-37.0); MCV 95.6 fL (80.0-100.0); Mean Platelet Volume 6.7; Monocytes # (A) 0.4 k/uL (0-1.0); Monocytes % (A) 5 %; Neutrophils # (A) 4.2 k/uL (1.3-7.7); Neutrophils % (A) 54 %; Platelet Count 185 k/uL (150-450); RBC 4.43 m/uL (4.30-5.90); RDW 12.5 % (11.5-15.5); WBC 7.7 k/uL (3.8-10.6)
[2021-10-03 08:45] LABS: ALT 10 U/L (4-49); AST 18 U/L (17-59); African American GFR (CKD) >90 (>60 ml/min/1.73 sqM); Albumin 4.4 g/dL (3.5-5.0); Alkaline Phosphatase 94 U/L (38-126); Anion Gap 8 mmol/L; Blood Urea Nitrogen 13 mg/dL (9-20); Calcium 9.3 mg/dL (8.4-10.2); Carbon Dioxide 25 mmol/L (22-30); Chloride 106 mmol/L (98-107); Glucose 97 mg/dL (74-99); Non-African American GFR(CKD) >90 (>60 ml/min/1.73 sqM); Sodium 139 mmol/L (137-145); Total Bilirubin 0.6 mg/dL (0.2-1.3); Total Protein 7.6 g/dL (6.3-8.2)
[2021-10-03] MEDS ORDERED: lamoTRIgine 100 MG TAB PO SCH (09:00)
[2021-10-03] MEDS ORDERED: CYCLOBENZAPRINE 10 MG TAB PO SCH (09:00)
[2021-10-03] MEDS ORDERED: carBAMazepine 200 MG TAB PO SCH (09:00)
[2021-10-03] MEDS ORDERED: MAGNESIUM HYDROXIDE 2,400 MG/10 ML CUP PO PRN (09:00)
[2021-10-03 11:47] LABS: Carbamazepine (Tegretol) <3.0 ug/mL
[2021-10-03] MEDS ORDERED: XCOPRI PO SCH (21:00)
[2021-10-03] MEDS ORDERED: carBAMazepine 400 MG TAB.ER.12H PO SCH (21:00)
== END 2021-10-03 10:00 | disposition short-term general hospital (02) | DRG 885 ==
LOC: EC 23:03 → 3MHU 10-03 02:54
PROVIDERS: ADMIT Psychiatry & Neurology Psychiatry; ATTEND Psychiatry & Neurology Psychiatry
DX: F39 Unspecified mood [affective] disorder (principal); R45.851 Suicidal ideations; G40.409 Other generalized epilepsy and epileptic syndromes, not intractable, without status epilepticus; E07.9 Disorder of thyroid, unspecified; Z20.822 Contact with and (suspected) exposure to COVID-19; K21.9 Gastro-esophageal reflux disease without esophagitis; F32.A Depression, unspecified; F41.9 Anxiety disorder, unspecified; Z90.49 Acquired absence of other specified parts of digestive tract; Z80.3 Family history of malignant neoplasm of breast
CPT/HCPCS: 80053; 80156; 82075; 83036; 84443; 85025; 87635; 99285

== ENCOUNTER 2021-10-03 09:25 | Inpatient (IN) | payer MEDICARE, OTHER ==
[2021-10-03] MEDS ORDERED: CYCLOBENZAPRINE 10 MG TAB PO PRN (10:52)
[2021-10-03] MEDS ORDERED: LORazepam 0.5 MG TAB PO PRN (10:52)
[2021-10-03] MEDS ORDERED: IBUPROFEN 800 MG TAB PO PRN (10:52)
[2021-10-03] MEDS ORDERED: NALOXONE 0.4 MG/ML 1 ML VIAL IV PRN (10:53)
[2021-10-03] MEDS ORDERED: ACETAMINOPHEN TAB 325 MG TAB PO PRN (10:53)
[2021-10-03] MEDS ORDERED: lamoTRIgine 100 MG TAB PO SCH (11:00)
--- NOTE | 2021-10-03 13:10 | P.HPIM ---
History of Present Illness H&P Date: 10/03/21 HISTORY OF PRESENT ILLNESS This is a 31-year-old male patient of Dr. Samson with past medical history of seizure disorder, migraine headaches, anxiety and depression, intellectual disability, verbal ataxia. Patient initially presented to the emergency center due to depression and suicidal ideation, subsequently admitted into the mental health unit. Patient had a witnessed seizure this morning lasting for minutes and was transferred to the cardiac stepdown unit. Patient is now admitted under our care for medical care. Consults added for neurology and psychiatry. Patient states that he doesn't mess his medications last evening while he was in the emergency center but has consistently taken his medications as directed. His neurologist is Dr. Peter Cr at [facility] in [place]. CBC and CMP were unremarkable. TSH 2.790. Carbamazepine level less than 3.0. Coronavirus PCR not detected. Seizure precautions are in place. REVIEW OF SYSTEMS Constitutional: No fever, no chills, no night sweats. No weight change. No weakness, fatigue or lethargy. No daytime sleepiness. EENT: No headache. No blurred vision or double vision, no loss of vision. No loss of Hearing, no ringing in the ears, no dizziness. No nasal drainage or congestion. No epistaxis. No sore throat. Lungs: No shortness of breath, cough, no sputum production. No wheezing. Cardiovascular: No chest pain, no lower extremity edema. No palpitations. No paroxysmal nocturnal dyspnea. No orthopnea. No lightheadedness or dizziness. No syncopal episodes. Abdominal: No abdominal pain. No nausea, vomiting. No diarrhea. No constipation. No bloody or tarry stools.. No loss of appetite. Genitourinary: No dysuria, increased frequency, urgency. No urinary retention. Musculoskeletal: No myalgias. No muscle weakness, no gait dysfunction, no frequent falls. No back pain. No neck pain. Integumentary: No wounds, no lesions. No rash or pruritus. No unusual bruising. No change in hair or nails. Neurologic: No aphasia. No facial droop. No change in mentation. No head injury. No headache. No paralysis. No paresthesia. Psychiatric: Reports depression and reported the emergency center suicidal ideation. Reports anxiety. Reports mood swings. Endocrine: No abnormal blood sugars. No weight change. No excessive sweating or thirst. No cold intolerance. SOCIAL HISTORY Patient states he does not smoke, use alcohol, use illicit drugs. Lives at home with his and 1 son. FAMILY HISTORY Patient will not provide parents history. Patient has 1 brother and 4 sisters and he also does not know their medical history. He has 1 son with epilepsy. PHYSICAL EXAMINATION Gen: This is a 31-year-old male patient resting in bed on the cardiac stepdown unit. Patient appears to be in no acute distress. HEENT: Head is atraumatic, normocephalic. Pupils equal, round. Sclerae is anicteric. NECK: Supple. No JVD. No lymphadenopathy. No thyromegaly. LUNGS: Clear to auscultation. No wheezes or rhonchi. No intercostal retractions. HEART: Regular rate and rhythm. No murmur. ABDOMEN: Soft. Bowel sounds are present. No masses. No tenderness. EXTREMITIES: No pedal edema. No calf tenderness. NEUROLOGICAL: Patient is awake, alert and oriented x3. Cranial nerves 2 through 12 are grossly intact. ASSESSMENT AND PLAN 1. Witnessed seizure activity. Patient was transferred to the cardiac stepdown unit. Consult with neurology. Patient will be resumed on his home medications including Epidiolex 300 mg in the morning and 700 in the evening, Tegretol 200 mg twice daily and 400 mg at bedtime, Lamictal 200 mg twice daily, phenobarbital 129.6 mg at bedtime. 2. Recurrent depression with suicidal ideation. Patient initially admitted to the mental health unit and subsequently transferred to the cardiac stepdown unit secondary to seizure. Consult with psychiatry. 3. History of seizure disorder follows with neurologist, Dr. Peter Cr, at [facility]. Continue Tegretol 200 mg twice daily and 400 mg at bedtime, Lamictal 200 mg twice daily, phenobarbital 129.6 mg at bedtime, Epidiolex 300 mg in the morning and 700 in the evening. 3. History of migraine headaches. No complaints of headache. 4. Denies tobacco use or alcohol use. DISCHARGE PLAN Home. Patient will most likely will need transfer to the mental health unit once stable.. Impression and plan of care have been directed as dictated by the signing physician. Gracie Suárez nurse practitioner acting as scribe for signing physician. Past Medical History Past Medical History: GERD/Reflux, Seizure Disorder, Skin Disorder, Thyroid Disorder Additional Past Medical History / Comment(s): has history of epilepsy, hx grand mal seizures since childhood, migraines, acne, History of Any Multi-Drug Resistant Organisms: None Reported, Unobtainable Past Surgical History: Adenoidectomy, Appendectomy, Cholecystectomy, Tonsillectomy Additional Past Surgical History / Comment(s): oral surgery Past Anesthesia/Blood Transfusion Reactions: Previous Problems w/ Anesthesia Additional Past Anesthesia/Blood Transfusion Reaction / Comment(s): SLOW TO WAKE FROM ANESTHESIA" Past Psychological History: Anxiety, Depression Additional Psychological History / Comment(s): per pt-he was in special education classes thru out school(has some intellectual disabilty), speech impediment. able to read and write. Smoking Status: Never smoker Past Alcohol Use History: None Reported Additional Past Alcohol Use History / Comment(s): Denies any alcohol intake since he is on probation til April 2019 Past Drug Use History: None Reported Additional Drug Use History / Comment(s): Denies any illicit drugs or any marijuana use - Past Family History Mother Family Medical History: Cancer Additional Family Medical History / Comment(s): breast cancer Medications and Allergies Home Medications Medication Instructions Recorded Confirmed Type PHENobarbital 129.6 mg PO HS 10/19/18 10/03/21 History carBAMazepine [TEGretol XR] 400 mg PO HS 10/19/18 10/03/21 History lamoTRIgine [LaMICtal] 200 mg PO BID #0 06/28/20 10/03/21 Rx carBAMazepine [TEGretol] 200 mg PO BID 10/10/20 10/03/21 History Cannabidiol (Cbd) [Epidiolex] 300 mg PO QAM 10/03/21 10/03/21 History Cannabidiol (Cbd) [Epidiolex] 700 mg PO HS 10/03/21 10/03/21 History Cyclobenzaprine HCl 10 mg PO TID PRN 10/03/21 10/03/21 History FLUoxetine HCL [PROzac] 10 mg PO DAILY 10/03/21 10/03/21 History Ibuprofen [Motrin] 800 mg PO Q8H PRN 10/03/21 10/03/21 History LORazepam [Ativan] 0.5 mg PO BID PRN 10/03/21 10/03/21 History Allergies Allergy/AdvReac Type Severity Reaction Status Date / Time No Known Allergies Allergy Verified 10/03/21 03:16 Physical Exam Vitals: Vital Signs Temp Pulse Resp BP Pulse Ox 10/03/21 11:53 98.0 F 93 16 116/65 98 Intake and Output 10/02/21 10/03/21 10/03/21 22:59 06:59 14:59 Other: Weight 82.5 kg
--- NOTE | 2021-10-03 13:17 | P.CNNES ---
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 The patient is known to me and have seen him mom multiple times because of breakthrough seizures. Some of the history is obtained from patient's and patient's nurse. I have seen the patient last on 04/03/2021. His saw him speaking with woman over the internet and messaged him about. He got mad and left house and per he left house. Per heard a police dispatch that patient was walking into cars. He was in the mental health unit on 10/02/2021 and per the patient he did not receive his night seizure medication. Today, the patient had a seizure according to the nurse but unsure of duration. Patient feels he is back to baseline. Per his last seizure he has not had any seizure since April2021 (at that time he was incarentated) and his medication has been helping with his seizure. He was started on Epidiolex which has been helping control his seizure. He is compliant with his seizure medication. His Xcopori was stopped in 04/2021. He is not drinking alcohol, illicit drug use. Patient is on home medication of Lamictal 200 mg 1 tablet twice a day, Tegretol 200 mg 1 tablet twice a day, Tegretol 400 mg daily at bedtime in addition, phenobarbital 129.6 mg daily at bedtime. Xcopori 300mg daily stopped in 04/2021. Patient is also on Epidiolex 300mg qam and 700mg qhs. Patient follows-up with Dr. Peter Nash and his [facility]. In the past the patient was approved for appetite locks and was pending to receive the medication and that doesn't work per the there was a consideration of placing the patient on VNS. Review of Systems Review of system: The 12 point system was reviewed and apparent positive and negative per HPI. Past Medical History Past Medical History: GERD/Reflux, Seizure Disorder, Skin Disorder, Thyroid Disorder Additional Past Medical History / Comment(s): has history of epilepsy, hx grand mal seizures since childhood, migraines, acne, History of Any Multi-Drug Resistant Organisms: None Reported, Unobtainable Past Surgical History: Adenoidectomy, Appendectomy, Cholecystectomy, Tonsillectomy Additional Past Surgical History / Comment(s): oral surgery Past Anesthesia/Blood Transfusion Reactions: Previous Problems w/ Anesthesia Additional Past Anesthesia/Blood Transfusion Reaction / Comment(s): SLOW TO WAKE FROM ANESTHESIA" Past Psychological History: Anxiety, Depression Additional Psychological History / Comment(s): per pt-he was in special education classes thru out school(has some intellectual disabilty), speech impediment. able to read and write. Smoking Status: Never smoker Past Alcohol Use History: None Reported Additional Past Alcohol Use History / Comment(s): Denies any alcohol intake since he is on probation April 2019 Past Drug Use History: None Reported Additional Drug Use History / Comment(s): Denies any illicit drugs or any marijuana use - Past Family History Mother Family Medical History: Cancer Additional Family Medical History / Comment(s): breast cancer Medications and Allergies Home Medications Medication Instructions Recorded Confirmed Type PHENobarbital 129.6 mg PO HS 10/19/18 10/03/21 History carBAMazepine [TEGretol XR] 400 mg PO HS 10/19/18 10/03/21 History lamoTRIgine [LaMICtal] 200 mg PO BID #0 06/28/20 10/03/21 Rx carBAMazepine [TEGretol] 200 mg PO BID 10/10/20 10/03/21 History Cannabidiol (Cbd) [Epidiolex] 300 mg PO QAM 10/03/21 10/03/21 History Cannabidiol (Cbd) [Epidiolex] 700 mg PO HS 10/03/21 10/03/21 History Cyclobenzaprine HCl 10 mg PO TID PRN 10/03/21 10/03/21 History FLUoxetine HCL [PROzac] 10 mg PO DAILY 10/03/21 10/03/21 History Ibuprofen [Motrin] 800 mg PO Q8H PRN 10/03/21 10/03/21 History LORazepam [Ativan] 0.5 mg PO BID PRN 10/03/21 10/03/21 History Allergies Allergy/AdvReac Type Severity Reaction Status Date / Time No Known Allergies Allergy Verified 10/03/21 03:16 Physical Examination - Vital Signs Vital Signs: Vital Signs Temp Pulse Resp BP Pulse Ox 10/03/21 11:53 98.0 F 93 16 116/65 98 Intake and Output 10/02/21 10/03/21 10/03/21 22:59 06:59 14:59 Other: Weight 82.5 kg GENERAL: The patient is lying in bed and is not in acute distress. CHEST: The heart rate is regular rate rhythm. No murmurs to auscultation. No carotid bruit bilaterally. LUNG: Clear to auscultation bilaterally no wheezing noted throughout. Not labored breathing. ABDOMEN/GI: Bowel sounds present in all 4 quadrants. No tenderness to palpation throughout. NEUROLOGICAL: Higher mental function: The patient is awake, alert, oriented to self, place and time. Patient is following commands. No aphasia and no neglect. Cranial nerves: The pupils are round, equal and reactive to light. Visual moya are full to confrontation throughout. Extraocular movement is intact no nystagmus is noted. Facial sensation is normal to touch throughout. The facial strength is normal throughout. Hearing is normal bilaterally to hand rub. Tongue is midline and moved [id number] without any difficulty. Mild dysarthria is noted (chronic). Shoulder shrug is normal bilaterally. Motor: The strength is moving all extremities above gravity without focality. Normal tone and bulk. Cerebellum: Normal finger to nose bilaterally. Sensation: Sensation is normal to touch throughout. Reflexes (right/left): 2+ throughout. Plantars are downgoing bilaterally. 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 An EEG is not warranted since he has known history of epilepsy A CT head is not warranted since no new deficits. Q4 hour neuro-checks Placed on seizure precaution and seizure pad Psychiatry is on board. I spoke with Dr. Pastolero and he feels patient has a personality disorder (he does not feel he has bipolar). Will defer the rest of medical management to the primary team. Regarding seizure, per [place] DMV, patient cannot drive for 6 months until seizure free, avoid height, swim unassisted or use heavy machinary. Upon discharge, follows-up with his neurologist (Dr. Peter Nash and his [facility]) within 1-2 weeks. The plan is discussed with the patient's (via phone) and his nurse. Magno Thakkar M.D. Neuro-Hospitalist. Time with Patient: Greater than 30
--- NOTE | 2021-10-03 13:58 | P.CN ---
Psychiatric Consult - . Consult date: 10/03/21 Consult:: 10/03/21 13:58 IDENTIFYING DATA: This patient is a , unemployed, 31-year-old male with significant history of depression who presented to Hospital under petition for suicidal ideation with a plan to get hit by a vehicle. HISTORY OF PRESENT ILLNESS: The patient presented to the hospital on 10/02/21 under petition, brought in by EMS for suicidal ideation with an attempt by walking into traffic. As per EPS assessment, the patient reported that he was feeling down and really wanted to talk to someone. He identified his is a big stressor that contributed to his low mood. Prior to his evaluation on the psychiatric unit, the patient had a grand mal seizure and the patient was subsequently transferred to the medical floor. Upon evaluation on the medical floor, the patient reports that he is been feeling low due to ongoing stressors in regards to his relationship with his . The patient reportedly was speaking to other females over the Internet and his confronted him about this. This led the patient to feel very upset and suicidal. When asked to connect his upset mood with his thought process that led to suicidal ideation, the patient is unable to do so. At this time, the patient is not endorsing any suicidal or homicidal ideation, intention, and/or plan. He does express that he wants to live that he can protect his child. We discussed at length that suicide in apparent greatly increases the risk of suicide in a child. The patient has had numerous psychiatric hospitalizations (more than 20) for similar impulsive and dangerous actions in response to stressors regarding his family. Despite his numerous psychiatric hospitalizations and medication changes, the patient continues to exhibit the same pattern of impulsive and histrionic behaviors. This was discussed with the patient in significant detail. In regards to other psychiatric symptoms, the patient is not endorsing any auditory or visual hallucinations. He reports no paranoia or other delusions. The patient reports that he has been in adherent with his medications and is not reporting any significant side effects at this time. He does endorse significant history of seizure disorder and it is during his nonadherence with treatment or a missed dose that leads to his seizures manifesting. PAST PSYCHIATRIC HISTORY: Patient has a history of depression and intellectual disability. The patient has been on numerous psychotropic medications in the past and is most recently on Prozac. The patient has had at least 33 psychiatric inpatient hospitalizations for similar complaints. [facility] PAST MEDICAL HISTORY: Past Medical History: GERD/Reflux, Seizure Disorder, Skin Disorder, Thyroid Disorder Additional Past Medical History / Comment(s): has history of epilepsy, hx grand mal seizures since childhood, migraines, acne, History of Any Multi-Drug Resistant Organisms: None Reported, Unobtainable Past Surgical History: Adenoidectomy, Appendectomy, Cholecystectomy, Tonsillectomy Additional Past Surgical History / Comment(s): oral surgery Past Anesthesia/Blood Transfusion Reactions: Previous Problems w/ Anesthesia Additional Past Anesthesia/Blood Transfusion Reaction / Comment(s): SLOW TO WAKE FROM ANESTHESIA" Past Psychological History: Anxiety, Depression Additional Psychological History / Comment(s): per pt-he was in special education classes thru out school(has some intellectual disabilty), speech impediment. able to read and write. Smoking Status: Never smoker Past Alcohol Use History: None Reported Additional Past Alcohol Use History / Comment(s): Denies any alcohol intake since he is on probation April 2019 Past Drug Use History: None Reported Additional Drug Use History / Comment(s): Denies any illicit drugs or any marijuana use ALLERGIES: NO KNOWN DRUG ALLERGIES CHEMICAL DEPENDENCY HISTORY: as per HPI. FAMILY PSYCHIATRIC/SUBSTANCE USE HISTORY: The patient reports that his paternal grandfather committed suicide. SOCIAL HISTORY: Patient is and has a 5-year-old child. He receives Social Security disability. He has an associates degree in [employer]. He denies any significant alcohol, tobacco, or drug use. MENTAL STATUS EXAM: General Appearance: Patient appears to be stated age is alert, pleasant, and cooperative. Patient appears to have fair hygiene and grooming wearing hospital gown with poor eye contact. Behavior: Patient is calmly lying in bed without any agitated behavior. Speech: Patient's speech is fluent and nonpressured. Mood/Affect: Patient reports their mood is "okay", affect is congruent and blunted Suicidality/Homicidality: Patient denies having any suicidal or homicidal ideation intent or plan at this time. Perceptions: Patient denies any visual hallucinations and denies any auditory hallucinations Though content/process: There is no evidence of any delusional thought content and thought process is linear and goal-directed. Memory and concentration: AOX3, grossly intact for the purposes of this session. Can spell "WORLD" backwards Judgment and insight: poor IMPRESSIONS: Major depressive disorder, recurrent, severe, with anxious features Seizure disorder Cluster B personality disorder Intellectual disability PLAN: -Will increase Prozac to 20 mg by mouth daily for depression/anxiety -Once medically cleared, we will have EPS reassess the patient so as to triage the patient as to whether inpatient psychiatric admission is warranted. Currently, the patient is not endorsing any suicidal ideation or intention and expresses future orientation for himself and for his child. Due to his numerous inpatient psychiatric admissions, there is concern that the patient is using inpatient psychiatric hospitalization as an inappropriate coping skill. The patient has been on numerous psychotropic medications indicating that it is likely an underlying personality disorder that causes him to act in an impulsive and dangerous ways. This will be something that will be treated over long-term therapy, in particular dialectical behavioral therapy for this patient. -We will discontinue one-to-one sitter at this time. The patient is not expressing any desire to hurt himself. -Will continue to follow along 10/03/21 13:58
[2021-10-03] MEDS: carBAMazepine 200 MG TAB PO SCH ×2 (15:32→20:19)
[2021-10-03] MEDS: lamoTRIgine 100 MG TAB PO SCH (20:17)
[2021-10-03] MEDS ORDERED: EPIDIOLEX PO SCH ×2 (21:00)
[2021-10-03] MEDS ORDERED: carBAMazepine 400 MG TAB.ER.12H PO SCH (21:00)
[2021-10-03] MEDS ORDERED: ONDANSETRON 4 MG/2 ML VIAL IVP PRN (21:11)
[2021-10-04] MEDS: lamoTRIgine 100 MG TAB PO SCH (08:05)
[2021-10-04] MEDS: carBAMazepine 200 MG TAB PO SCH (08:05)
[2021-10-04] MEDS ORDERED: EPIDIOLEX PO SCH ×2 (09:00)
[2021-10-04] MEDS ORDERED: FLUoxetine HCL 10 MG CAP PO SCH (09:00)
[2021-10-04] MEDS ORDERED: FLUoxetine HCL 20 MG CAP PO SCH (09:00)
[2021-10-04] MEDS ORDERED: ENOXAPARIN 40 MG/0.4 ML SYRINGE SQ SCH (09:00)
--- NOTE | 2021-10-04 10:41 | P.PN ---
Subjective Progress Note Date: 10/04/21 The patient is seen at bedside and per patient's nurse he has not had any further seizures since he has been admitted to our facility. Patient stated he is doing well and denies of any new neurological deficits. Objective - Vital Signs Vital signs: Vital Signs Temp 98.2 F 10/04/21 04:37 Pulse 63 10/04/21 04:37 Resp 18 10/04/21 04:37 BP 109/68 10/04/21 04:37 Pulse Ox 97 10/04/21 04:37 Intake & Output 10/03/21 10/04/21 10/04/21 18:59 06:59 18:59 Intake Total 358 118 Balance 358 118 Weight 82.5 kg Intake: Oral 358 118 Other: # Voids 2 1 - Exam GENERAL: The patient is lying in bed and is not in acute distress. NEUROLOGICAL: Higher mental function: The patient is awake, alert, oriented to self, place and time. Patient is following commands. No aphasia and no neglect. Cranial nerves: The pupils are round, equal and reactive to light. Visual moya are full to confrontation throughout. Extraocular movement is intact no nystagmus is noted. Facial sensation is normal to touch throughout. The facial strength is normal throughout. Hearing is normal bilaterally to hand rub. Tongue is midline and moved [id number] without any difficulty. Mild dysarthria is noted (chronic). Shoulder shrug is normal bilaterally. Motor: The strength is moving all extremities above gravity without focality. Normal tone and bulk. Cerebellum: Normal finger to nose bilaterally. Sensation: Sensation is normal to touch throughout. Reflexes (right/left): 2+ throughout. Plantars are downgoing bilaterally. 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 An EEG is not warranted since he has known history of epilepsy A CT head is not warranted since no new deficits. Q4 hour neuro-checks Continue seizure precaution and seizure pad Psychiatry is on board. Will defer the rest of medical management to the primary team. Regarding seizure, per [place] DMV, patient cannot drive for 6 months until seizure free, avoid height, swim unassisted or use heavy machinery and this was notified to patient. Upon discharge, follows-up with his neurologist (Dr. Peter Nash and his PHARMACY INTAKE TECHNICIAN) within 1-2 weeks. The plan is discussed with the patient's (via phone) and his nurse. Patient is clear from neurological perspective. Magno Thakkar M.D. Neuro-Hospitalist. Time with Patient: Less than 30
[2021-10-04 11:51] VITALS: RESP 16
[2021-10-04 12:05] VITALS: BP 111/71; PULSE 86; TEMP 97.6
--- NOTE | 2021-10-04 12:11 | P.DS ---
Providers Date of admission: 10/03/21 09:25 Expected date of discharge: 10/04/21 Attending physician: Luciano Carson Consults: 10/03/21 10:57 Consult Physician Routine Consulting Provider: Magno Thakkar Consult Reason/Comments: seizure disorder, active sz on MHU Do you want consulting provider notified?: Yes 10/03/21 12:12 Consult Physician Routine Consulting Provider: Blane Paul Consult Reason/Comments: suicidal ideation hx Do you want consulting provider notified?: Yes Hospital Course: HISTORY OF PRESENT ILLNESS This is a 31-year-old male patient of Dr. Samson with past medical history of seizure disorder, migraine headaches, anxiety and depression, intellectual disability, verbal ataxia. Patient initially presented to the emergency center due to depression and suicidal ideation, subsequently admitted into the mental health unit. Patient had a witnessed seizure this morning lasting for minutes and was transferred to the cardiac stepdown unit. Patient is now admitted under our care for medical care. Consults added for neurology and psychiatry. Patient states that he doesn't mess his medications last evening while he was in the emergency center but has consistently taken his medications as directed. His neurologist is Dr. Peter Cr at [facility] in [place]. CBC and CMP were unremarkable. TSH 2.790. Carbamazepine level less than 3.0. Coronavirus PCR not detected. Seizure precautions are in place. 10/04: Patient has been seen and followed by neurology and no medication changes have been made. Dr. Thakkar as recommended follow-up with his neurology in 1-2 weeks. Patient is also been seen by psychiatry and Prozac increased to 20 mg. Patient has had no further seizure activity and has been cleared for discharge by neurology. We will plan for discharge home or to mental health unit depending on recommendations from psychiatry. Patient will be discharged today in stable condition. DISCHARGE DIAGNOSES 1. Witnessed seizure activity. 2. Recurrent depression with suicidal ideation. 3. History of seizure disorder follows with neurologist, Dr. Peter Cr, at [facility]. 3. History of migraine headaches. 4. Denies tobacco use or alcohol use. DISCHARGE PLAN Home OR transfer to the mental health unit Greater than 35 minutes was utilized and coordinating patient's discharge. Impression and plan of care have been directed as dictated by the signing physician. Gracie Suárez nurse practitioner acting as scribe for signing physician. Patient Condition at Discharge: Good Plan - Discharge Summary Discharge Rx Participant: Yes New Discharge Prescriptions: New FLUoxetine HCL [PROzac] 20 mg PO DAILY #30 cap Continue PHENobarbital 129.6 mg PO HS carBAMazepine [TEGretol XR] 400 mg PO HS lamoTRIgine [LaMICtal] 200 mg PO BID #0 carBAMazepine [TEGretol] 200 mg PO BID LORazepam [Ativan] 0.5 mg PO BID PRN PRN Reason: Anxiety Ibuprofen [Motrin] 800 mg PO Q8H PRN PRN Reason: Pain Cyclobenzaprine HCl 10 mg PO TID PRN PRN Reason: Muscle Spasm Cannabidiol (Cbd) [Epidiolex] 700 mg PO HS Cannabidiol (Cbd) [Epidiolex] 300 mg PO QAM Discontinued FLUoxetine HCL [PROzac] 10 mg PO DAILY Discharge Medication List PHENobarbital 129.6 mg PO HS 10/19/18 [History] carBAMazepine [TEGretol XR] 400 mg PO HS 10/19/18 [History] lamoTRIgine [LaMICtal] 200 mg PO BID #0 06/28/20 [Rx] carBAMazepine [TEGretol] 200 mg PO BID 10/10/20 [History] Cannabidiol (Cbd) [Epidiolex] 300 mg PO QAM 10/03/21 [History] Cannabidiol (Cbd) [Epidiolex] 700 mg PO HS 10/03/21 [History] Cyclobenzaprine HCl 10 mg PO TID PRN 10/03/21 [History] Ibuprofen [Motrin] 800 mg PO Q8H PRN 10/03/21 [History] LORazepam [Ativan] 0.5 mg PO BID PRN 10/03/21 [History] FLUoxetine HCL [PROzac] 20 mg PO DAILY #30 cap 10/04/21 [Rx] Follow up Appointment(s)/Referral(s): Ana Maria Samson MD [STAFF PHYSICIAN] - 1 Week Peter Cr DO [REFERRING] - 1 Week Discharge Disposition: HOME SELF-CARE
--- NOTE | 2021-10-04 14:01 | P.PN ---
Progress Note - Text Progress Note Date: 10/04/21 Interval History: Patient was seen resting in bed and was agreeable to speak with this provider. The patient is currently denying any suicidal or homicidal ideation, intention, and/or plan. He is not reporting any auditory or visual hallucinations. The patient has significant stressors related to his marriage and was reportedly caught talking to other females over social media which causes to confront him. This led to the patient walking into traffic. However, the patient did not endorse any significant symptoms of depression or anxiety. Although gesturing, the patient does not report any intention to want to take his life. The patient has had numerous psychiatric hospitalizations and it is concerning at this time that the patient has exhausted in the therapeutic benefit from inpatient psychiatric hospitalization as he uses this as respite from his . He is currently not endorsing any significant criteria warranting an inpatient psychiatric hospitalization. He reports no psychosis. He reports no intention to harm himself or others. Mental Status Exam: General Appearance: Patient appears to be stated age is alert, directable, and cooperative. Behavior: Patient is calmly seated without any agitated behavior. Speech: Patient's speech is fluent and nonpressured. Mood/Affect: Mood is improving mildly, affect is congruent and constricted. Suicidality/Homicidality: Patient denies having any suicidal or homicidal ideation intent or plan. Perceptions: Patient denies any visual hallucinations and denies any auditory hallucinations Though content/process: There is no evidence of any delusional thought content and thought process is linear and goal-directed. Memory and concentration: AOX3, grossly intact for the purposes of this session Judgment and insight: Improving mildly Vital Signs Temp 97.6 F 10/04/21 12:04 Pulse 86 10/04/21 12:04 Resp 16 10/04/21 12:04 BP 111/71 10/04/21 12:04 Pulse Ox 97 10/04/21 12:04 Intake & Output 10/03/21 10/04/21 10/04/21 18:59 06:59 18:59 Intake Total 358 118 Balance 358 118 Weight 82.5 kg Intake: Oral 358 118 Other: # Voids 2 1 Assessment Major depressive disorder, recurrent, severe, with anxious features X and seizure disorder Cluster B personality disorder Intellectual disability Plan: -Continue Prozac 20 mg daily for depression/anxiety -Recommend social work to provide the patient with resources and to inquire about partial hospitalization program for this patient as he would likely benefit from intensive outpatient treatment rather than inpatient psychiatric hospitalization. -Patient is cleared psychiatrically for discharge. We discussed at length appropriate safety planning exercising coping skills. Encouraged the patient to exercise the use of crisis numbers. -Psychiatry will sign off at this time.
== END 2021-10-04 14:04 | disposition home or self-care (01) | DRG 885 ==
LOC: 3SCARD 09:25
PROVIDERS: ADMIT Internal Medicine Geriatric Medicine; ATTEND Internal Medicine Geriatric Medicine
DX: F33.2 Major depressive disorder, recurrent severe without psychotic features (principal); R45.851 Suicidal ideations; F41.9 Anxiety disorder, unspecified; G43.909 Migraine, unspecified, not intractable, without status migrainosus; R27.0 Ataxia, unspecified; F60.89 Other specific personality disorders; L70.9 Acne, unspecified; F79 Unspecified intellectual disabilities; G40.409 Other generalized epilepsy and epileptic syndromes, not intractable, without status epilepticus; Z20.822 Contact with and (suspected) exposure to COVID-19; Z79.899 Other long term (current) drug therapy; Z80.3 Family history of malignant neoplasm of breast; Z90.49 Acquired absence of other specified parts of digestive tract

== ENCOUNTER 2022-01-28 21:28 | Emergency (ER) | payer MEDICARE, OTHER ==
[2022-01-28 21:35] VITALS: RESP 16; TEMP 99.1
--- NOTE | 2022-01-28 21:43 | ED ---
Seizure HPI - General Stated Complaint: Seizure Time Seen by Provider: 01/28/22 21:30 Source: patient, EMS Mode of arrival: EMS Limitations: no limitations - History of Present Illness Initial Comments: This patient is a 31-year-old man with history of seizure disorder who presents after having had a seizure tonight. The patient states that his last seizure was October 02. He states that he tends to get seizures if he misses a dose of medication but does not believe he had missed any medicines recently. Patient denies any injury as a result of the seizure. He states that he may have experienced a fever before the onset. He denies any symptoms of infection. No sinus congestion, sore throat, cough. No chest pain or dyspnea. No change in urination or bowel movements. No rash. No headache or neurologic symptoms now. MD Complaint: seizure -: minutes(s) Description of Episode: loss of consciousness, tonic-clonic movement -: minutes(s) Seizure History: known seizure disorder Possible Precipitating Event: none Associated Symptoms: denies other symptoms Treatments Prior to Arrival: none - Related Data Home Medications Medication Instructions Recorded Confirmed carBAMazepine [TEGretol XR] 400 mg PO HS 10/19/18 01/28/22 carBAMazepine [TEGretol] 200 mg PO BID 10/10/20 01/28/22 Cannabidiol (Cbd) [Epidiolex] 300 mg PO DAILY 10/03/21 01/28/22 Cannabidiol (Cbd) [Epidiolex] 700 mg PO HS 10/03/21 01/28/22 Cyclobenzaprine HCl 10 mg PO TID PRN 10/03/21 01/28/22 Ibuprofen [Motrin] 800 mg PO Q8H PRN 10/03/21 01/28/22 LORazepam [Ativan] 0.5 mg PO BID PRN 10/03/21 01/28/22 PHENobarbitaL [Luminal] 129.6 mg PO DAILY 01/28/22 01/28/22 Previous Rx's Medication Instructions Recorded lamoTRIgine [LaMICtal] 200 mg PO BID #0 06/28/20 FLUoxetine HCL [PROzac] 20 mg PO DAILY #30 cap 10/04/21 Allergies Allergy/AdvReac Type Severity Reaction Status Date / Time No Known Allergies Allergy Verified 01/28/22 22:14 Review of Systems ROS Statement: Those systems with pertinent positive or pertinent negative responses have been documented in the HPI. ROS Other: All systems not noted in ROS Statement are negative. Constitutional: Reports: fever. Denies: chills, weakness Eyes: Denies: eye pain, vision change ENT: Denies: throat pain, congestion Respiratory: Denies: cough, dyspnea Cardiovascular: Denies: chest pain, palpitations Gastrointestinal: Denies: abdominal pain, vomiting, diarrhea Genitourinary: Denies: dysuria, hematuria Musculoskeletal: Denies: back pain Skin: Denies: rash Neurological: Denies: headache, weakness, numbness Past Medical History Past Medical History: GERD/Reflux, Seizure Disorder, Skin Disorder, Thyroid Disorder Additional Past Medical History / Comment(s): has history of epilepsy, hx grand mal seizures since childhood, migraines, acne, History of Any Multi-Drug Resistant Organisms: None Reported, Unobtainable Past Surgical History: Adenoidectomy, Appendectomy, Cholecystectomy, To nsillectomy Additional Past Surgical History / Comment(s): oral surgery Past Anesthesia/Blood Transfusion Reactions: Previous Problems w/ Anesthesia Additional Past Anesthesia/Blood Transfusion Reaction / Comment(s): SLOW TO WAKE FROM ANESTHESIA" Past Psychological History: Anxiety, Depression Smoking Status: Never smoker Past Alcohol Use History: None Reported Past Drug Use History: None Reported - Past Family History Mother Family Medical History: Cancer Additional Family Medical History / Comment(s): breast cancer General Exam Limitations: no limitations General appearance: alert, in no apparent distress Head exam: Present: atraumatic, normocephalic Eye exam: Present: normal appearance. Absent: scleral icterus, conjunctival injection Neck exam: Present: normal inspection Respiratory exam: Present: normal lung sounds bilaterally. Absent: respiratory distress, wheezes, rales, rhonchi, stridor Cardiovascular Exam: Present: regular rate, normal rhythm, normal heart sounds. Absent: systolic murmur, diastolic murmur, rubs, gallop GI/Abdominal exam: Present: soft. Absent: distended, tenderness, guarding, rebound, rigid, mass Extremities exam: Present: normal inspection, normal capillary refill. Absent: pedal edema, calf tenderness Back exam: Present: normal inspection. Absent: CVA tenderness (R), CVA tenderness (L) Neurological exam: Present: alert Skin exam: Present: warm, dry, intact, normal color. Absent: rash Course Vital Signs 01/28/22 01/28/22 21:30 22:29 Temperature 99.1 F Pulse Rate 71 63 Respiratory 16 16 Rate Blood Pressure 140/89 127/81 O2 Sat by Pulse 95 98 Oximetry Medical Decision Making - Lab Data Result diagrams: 01/28/22 21:57 01/28/22 21:57 Lab Results 01/28/22 01/28/22 Range/Units 21:57 21:57 WBC 5.2 (3.8-10.6) k/uL RBC 4.51 (4.30-5.90) m/uL Hgb 14.4 (13.0-17.5) gm/dL Hct 42.5 (39.0-53.0) % MCV 94.1 (80.0-100.0) fL MCH 31.9 (25.0-35.0) pg MCHC 33.9 (31.0-37.0) g/dL RDW 13.1 (11.5-15.5) % Plt Count 226 (150-450) k/uL MPV 6.7 Neutrophils % 40 % Lymphocytes % 38 % Monocytes % 5 % Eosinophils % 13 % Basophils % 1 % Neutrophils # 2.1 (1.3-7.7) k/uL Lymphocytes # 2.0 (1.0-4.8) k/uL Monocytes # 0.3 (0-1.0) k/uL Eosinophils # 0.7 (0-0.7) k/uL Basophils # 0.1 (0-0.2) k/uL Sodium 135 L (137-145) mmol/L Potassium 4.9 (3.5-5.1) mmol/L Chloride 105 (98-107) mmol/L Carbon Dioxide 22 (22-30) mmol/L Anion Gap 8 mmol/L BUN 12 (9-20) mg/dL Creatinine 0.88 (0.66-1.25) mg/dL Est GFR (CKD-EPI)AfAm >90 (>60 ml/min/1.73 sqM) Est GFR (CKD-EPI)NonAf >90 (>60 ml/min/1.73 sqM) Glucose 106 H (74-99) mg/dL Calcium 9.2 (8.4-10.2) mg/dL Magnesium 1.9 (1.6-2.3) mg/dL Total Bilirubin 0.6 (0.2-1.3) mg/dL AST 28 (17-59) U/L ALT 12 (4-49) U/L Alkaline Phosphatase 83 (38-126) U/L Total Protein 7.9 (6.3-8.2) g/dL Albumin 4.5 (3.5-5.0) g/dL Carbamazepine 4.3 ug/mL - EKG Data -: EKG Interpreted by Ga EKG shows normal: sinus rhythm, axis (Normal), intervals (QRS duration is borderline prolonged.), QRS complexes (Nonspecific intraventricular conduction delay.), ST-T waves Rate: normal (Rate 67 bpm) Disposition Clinical Impression: Generalized seizure Disposition: HOME SELF-CARE Condition: Good Instructions (If sedation given, give patient instructions): Seizure/Epilepsy Discharge Instructions & Follow-Up, Recurrent Seizures in Adults (ED) Is patient prescribed a controlled substance at d/c from ED?: No Referrals: Ana Maria Samson MD [Primary Care Provider] - 1-2 days
[2022-01-28 22:10] LABS: Basophils # (A) 0.1 k/uL (0-0.2); Basophils % (A) 1 %; Eosinophils # (A) 0.7 k/uL (0-0.7); Eosinophils % (A) 13 %; HCT 42.5 % (39.0-53.0); HGB 14.4 gm/dL (13.0-17.5); Lymphocytes % (A) 38 %; MCH 31.9 pg (25.0-35.0); MCHC 33.9 g/dL (31.0-37.0); MCV 94.1 fL (80.0-100.0); Mean Platelet Volume 6.7; Monocytes # (A) 0.3 k/uL (0-1.0); Monocytes % (A) 5 %; Neutrophils # (A) 2.1 k/uL (1.3-7.7); Neutrophils % (A) 40 %; Platelet Count 226 k/uL (150-450); RBC 4.51 m/uL (4.30-5.90); RDW 13.1 % (11.5-15.5); WBC 5.2 k/uL (3.8-10.6)
[2022-01-28 22:18] LABS: ALT 12 U/L (4-49); African American GFR (CKD) >90 (>60 ml/min/1.73 sqM); Anion Gap 8 mmol/L; Blood Urea Nitrogen 12 mg/dL (9-20); Calcium 9.2 mg/dL (8.4-10.2); Carbamazepine (Tegretol) 4.3 ug/mL; Carbon Dioxide 22 mmol/L (22-30); Chloride 105 mmol/L (98-107); Glucose 106 mg/dL (74-99); Magnesium 1.9 mg/dL (1.6-2.3); Non-African American GFR(CKD) >90 (>60 ml/min/1.73 sqM); Sodium 135 mmol/L (137-145); Total Bilirubin 0.6 mg/dL (0.2-1.3)
[2022-01-28 22:28] LABS: AST 28 U/L (17-59); Albumin 4.5 g/dL (3.5-5.0); Potassium 4.9 mmol/L (3.5-5.1); Total Protein 7.9 g/dL (6.3-8.2)
[2022-01-28 22:29] LABS: Alkaline Phosphatase 83 U/L (38-126)
[2022-01-28 22:30] VITALS: BP 127/81; PULSE 63
== END 2022-01-29 00:06 | disposition home or self-care (01) ==
LOC: EC 21:28
DX: G40.409 Other generalized epilepsy and epileptic syndromes, not intractable, without status epilepticus (principal)
CPT/HCPCS: 36415; 80053; 80156; 83735; 85025; 99284

== ENCOUNTER 2022-02-06 22:05 | Observation (INO) | payer MEDICARE, OTHER ==
[2022-02-06 22:41] LABS: Appearance,Urine Clear (Clear); Bilirubin,Urine Negative (Negative); Blood,Urine Small (Negative); Color,Urine Yellow; Glucose,Urine (UA) Negative (Negative); Ketones,Urine Negative (Negative); Leukocyte Esterase,Urine Negative (Negative); Mucus,Urine Rare /hpf; Nitrite,Urine Negative (Negative); PH, Urine 5.5 (5.0-8.0); Protein,Urine 1+ (Negative); RBC,Urine 1 /hpf (0-5); Specific Gravity,Urine 1.022 (1.001-1.035); Urobilinogen,Urine <2.0 mg/dL (<2.0); WBC,Urine 2 /hpf (0-5)
[2022-02-07] MEDS ORDERED: IBUPROFEN 800 MG TAB PO STA (00:07)
[2022-02-07] MEDS ORDERED: ACETAMINOPHEN TAB 500 MG TAB PO STA (00:07)
[2022-02-07] MEDS ORDERED: OSELTAMIVIR 75 MG CAP PO STA (00:07)
--- NOTE | 2022-02-07 00:08 | ED ---
Fever HPI - General Chief Complaint: Upper Respiratory Infection Stated Complaint: Fever Time Seen by Provider: 02/07/22 00:05 Source: patient, RN notes reviewed, old records reviewed Mode of arrival: wheelchair Limitations: no limitations - History of Present Illness Initial Comments: This is a 31-year-old male he is presented today for evaluation regards to multiple complaints mild headache persistent fever cough or congestion bodyaches and pains. Patient is nauseous without vomiting has persistent cough. Unsure of known sick contacts. Patient has a significant seizure history with some development mild delay. He has been taking medication as prescribed and has not had a seizure MD Complaint: fever, malaise, weakness -: hour(s) Temperature Source: subjective Context: sick contacts Associated Symptoms: chills, myalgias, sore throat, cough, nausea Treatments Prior to Arrival: none - Related Data Home Medications Medication Instructions Recorded Confirmed carBAMazepine [TEGretol XR] 400 mg PO HS 10/19/18 01/28/22 carBAMazepine [TEGretol] 200 mg PO BID 10/10/20 01/28/22 Cannabidiol (Cbd) [Epidiolex] 300 mg PO DAILY 10/03/21 01/28/22 Cannabidiol (Cbd) [Epidiolex] 700 mg PO HS 10/03/21 01/28/22 Cyclobenzaprine HCl 10 mg PO TID PRN 10/03/21 01/28/22 Ibuprofen [Motrin] 800 mg PO Q8H PRN 10/03/21 01/28/22 LORazepam [Ativan] 0.5 mg PO BID PRN 10/03/21 01/28/22 PHENobarbitaL [Luminal] 129.6 mg PO DAILY 01/28/22 01/28/22 Previous Rx's Medication Instructions Recorded lamoTRIgine [LaMICtal] 200 mg PO BID #0 06/28/20 FLUoxetine HCL [PROzac] 20 mg PO DAILY #30 cap 10/04/21 Oseltamivir [Tamiflu] 75 mg PO Q12HR #10 cap 02/07/22 Allergies Allergy/AdvReac Type Severity Reaction Status Date / Time No Known Allergies Allergy Verified 02/06/22 22:10 Review of Systems ROS Statement: Those systems with pertinent positive or pertinent negative responses have been documented in the HPI. ROS Other: All systems not noted in ROS Statement are negative. Past Medical History Past Medical History: GERD/Reflux, Seizure Disorder, Skin Disorder, Thyroid Disorder Additional Past Medical History / Comment(s): has history of epilepsy, hx grand mal seizures since childhood, migraines, acne, History of Any Multi-Drug Resistant Organisms: None Reported, Unobtainable Past Surgical History: Adenoidectomy, Appendectomy, Cholecystectomy, Tonsillectomy Additional Past Surgical History / Comment(s): oral surgery Past Anesthesia/Blood Transfusion Reactions: Previous Problems w/ Anesthesia Additional Past Anesthesia/Blood Transfusion Reaction / Comment(s): SLOW TO WAKE FROM ANESTHESIA" Past Psychological History: Anxiety, Depression Smoking Status: Never smoker Past Alcohol Use History: None Reported Past Drug Use History: None Reported - Past Family History Mother Family Medical History: Cancer Additional Family Medical History / Comment(s): breast cancer General Exam Limitations: no limitations General appearance: alert, in no apparent distress Head exam: Present: atraumatic, normocephalic, normal inspection Eye exam: Present: normal appearance, PERRL, EOMI. Absent: scleral icterus, conjunctival injection, periorbital swelling ENT exam: Present: normal exam, mucous membranes moist Neck exam: Present: normal inspection. Absent: tenderness, meningismus, lymphadenopathy Respiratory exam: Present: normal lung sounds bilaterally. Absent: respiratory distress, wheezes, rales, rhonchi, stridor Cardiovascular Exam: Present: normal rhythm, tachycardia, normal heart sounds. Absent: systolic murmur, diastolic murmur, rubs, gallop, clicks GI/Abdominal exam: Present: soft, normal bowel sounds. Absent: distended, tenderness, guarding, rebound, rigid Extremities exam: Present: normal inspection, full ROM, normal capillary refill. Absent: tenderness, pedal edema, joint swelling, calf tenderness Back exam: Present: normal inspection Neurological exam: Present: alert, oriented X3, CN II-XII intact Psychiatric exam: Present: normal affect, normal mood Skin exam: Present: warm, dry, intact, normal color. Absent: rash Course Vital Signs 02/06/22 02/07/22 22:07 01:10 Temperature 102.6 F H 100.2 F H Pulse Rate 128 H 84 Respiratory 20 18 Rate Blood Pressure 106/72 109/71 O2 Sat by Pulse 95 98 Oximetry - Reevaluation(s) Reevaluation #1: 02/07/22 01:49 Medical record is reviewed Reevaluation #2: 02/07/22 01:49 Patient initially not feeling better, we will admit the patient for supportive care Reevaluation #3: 02/07/22 01:50 Upon admission patient is refusing admission he wants to be discharged home patient at this point will sign out AGAINST MEDICAL ADVICE Reevaluation #4: 02/07/22 01:50 Patient's fever heart rate are improved. Medical Decision Making - Medical Decision Making 31 male with fever positive for influenza. X-ray otherwise negative. Patient is having no significant distress patient was going to be admitted for supportive care with this time will leave AGAINST MEDICAL ADVICE as he no longer wants to stay in the hospital - Lab Data Lab Results 02/06/22 02/06/22 Range/Units 22:28 22:32 Urine Color Yellow Urine Appearance Clear (Clear) Urine pH 5.5 (5.0-8.0) Ur Specific Alfred 1.022 (1.001-1.035) Urine Protein 1+ H (Negative) Urine Glucose (UA) Negative (Negative) Urine Ketones Negative (Negative) Urine Blood Small H (Negative) Urine Nitrite Negative (Negative) Urine Bilirubin Negative (Negative) Urine Urobilinogen <2.0 (<2.0) mg/dL Ur Leukocyte Esterase Negative (Negative) Urine RBC 1 (0-5) /hpf Urine WBC 2 (0-5) /hpf Urine Mucus Rare H (None) /hpf Influenza Type A RNA Detected H (Not Detectd) Influenza Type B (PCR) Not Detected (Not Detectd) - Radiology Data Radiology results: report reviewed (Chest x-rays negative for acute disease), image reviewed Disposition Clinical Impression: Viral infection, Fever, Influenza A, Nausea & vomiting Disposition: Left Against Medical Advice Condition: Fair Is patient prescribed a controlled substance at d/c from ED?: No
--- NOTE | 2022-02-07 00:29 | XR ---
EXAMINATION TYPE: XR chest 1V portable DATE OF EXAM: 02/07/2022 COMPARISON: 03/09/2021 HISTORY: Possible aspiration TECHNIQUE: Single view FINDINGS: Heart is normal. Lungs are clear of consolidation. Costophrenic angles are clear. There are no hilar masses. The bony thorax is intact. IMPRESSION: No active cardiopulmonary disease. Normal heart. No change.
[2022-02-07] MEDS ORDERED: ONDANSETRON 4 MG/2 ML VIAL IVP PRN (01:26)
[2022-02-07] MEDS ORDERED: MORPHINE SULFATE 4 MG/ML SYRINGE IV STA (01:26)
[2022-02-07] MEDS ORDERED: IPRATROPIUM-ALBUTEROL 3 ML NEB INHALATION STA (01:26)
[2022-02-07] MEDS ORDERED: ACETAMINOPHEN TAB 325 MG TAB PO PRN (01:26)
[2022-02-07] MEDS ORDERED: KETOROLAC 15 MG/ML 1 ML VIAL IVP STA (01:26)
[2022-02-07] MEDS ORDERED: IBUPROFEN 600 MG TAB PO STA (01:26)
[2022-02-07] MEDS ORDERED: SODIUM CHLORIDE 0.9% 500 ML 500 ML IV STA (01:26)
[2022-02-07] MEDS ORDERED: IBUPROFEN 400 MG TAB PO PRN (01:26)
[2022-02-07] MEDS ORDERED: SODIUM CHLORIDE 0.9% 1,000 ML IV STA ×2 (01:26)
[2022-02-07] MEDS ORDERED: ONDANSETRON 4 MG/2 ML VIAL IVP STA (01:26)
[2022-02-07] MEDS ORDERED: NALOXONE 0.4 MG/ML 1 ML VIAL IV PRN (01:26)
[2022-02-07] MEDS ORDERED: MORPHINE SULFATE 4 MG/ML SYRINGE IV PRN (01:26)
[2022-02-07] MEDS ORDERED: IPRATROPIUM-ALBUTEROL 3 ML NEB INHALATION PRN (01:26)
[2022-02-07] MEDS ORDERED: SODIUM CHLORIDE 0.9% 1,000 ML IV SCH (01:30)
[2022-02-07 01:32] VITALS: BP 109/71; PULSE 84; RESP 18; TEMP 100.2
== END 2022-02-07 01:50 | disposition left against medical advice (07) ==
LOC: EC 22:05 → 6NMEDSUR 02-07 01:26
PROVIDERS: ADMIT Family Medicine; ATTEND Family Medicine
DX: J10.1 Influenza due to other identified influenza virus with other respiratory manifestations (principal); Z53.29 Procedure and treatment not carried out because of patient's decision for other reasons; G40.409 Other generalized epilepsy and epileptic syndromes, not intractable, without status epilepticus; E07.9 Disorder of thyroid, unspecified; F32.A Depression, unspecified; F41.9 Anxiety disorder, unspecified; K21.9 Gastro-esophageal reflux disease without esophagitis; L98.9 Disorder of the skin and subcutaneous tissue, unspecified; Z79.899 Other long term (current) drug therapy; Z90.49 Acquired absence of other specified parts of digestive tract; Z86.69 Personal history of other diseases of the nervous system and sense organs; Z80.3 Family history of malignant neoplasm of breast
CPT/HCPCS: 99284; 81001; 87502; 71045; G0378

== ENCOUNTER 2022-04-06 18:01 | Inpatient (IN) | payer MEDICARE, MEDICAID ==
[2022-04-06] MEDS ORDERED: HALOPERIDOL LACTATE 5 MG/ML 1 ML VIAL IM PRN (18:16)
[2022-04-06] MEDS ORDERED: LORazepam 2 MG/ML INJ IM PRN (18:16)
--- NOTE | 2022-04-06 18:54 | ED ---
General Adult HPI - General Chief complaint: Psychiatric Symptoms Stated complaint: Mental health Time Seen by Provider: 04/06/22 18:09 Source: police, RN notes reviewed, old records reviewed Mode of arrival: ambulatory Limitations: no limitations - History of Present Illness Initial comments: Patient is a 32-year-old male with past medical history remarkable for seizure disorder, acid reflux, thyroid disorder presents emergency Department complaining of suicidal ideations. He stated he wanted to jump into the river. Was combative with police. Was placed in restraints upon arrival at 1800. Petition states "Stephan was walking towards the [place] and said he wanted to go in the water and was suicidal. Stephan texted Bre saying he was going to jump in the river and if she needs to get his property, it will wash to shore." Patient is currently in restraints. He states he was in an argument with his significant other earlier which prompted his behavior. States he has attempted suicide in the past. Denies taking any pills. Denies any other acute complaints at this time. States he took his home medications this morning. No missed doses. His no other acute point at this time. Is cooperative at this time. Denies any visual or auditory hallucinations. Denies any homicidal ideations, attempts, plans. - Related Data Home Medications Medication Instructions Recorded Confirmed carBAMazepine [TEGretol XR] 400 mg PO HS 10/19/18 04/06/22 carBAMazepine [TEGretol] 200 mg PO BID 10/10/20 04/06/22 Cannabidiol (Cbd) [Epidiolex] 300 mg PO DAILY 10/03/21 04/06/22 Cannabidiol (Cbd) [Epidiolex] 700 mg PO HS 10/03/21 04/06/22 Cyclobenzaprine HCl 10 mg PO Q8H PRN 10/03/21 04/06/22 Ibuprofen [Motrin] 800 mg PO Q8H PRN 10/03/21 04/06/22 LORazepam [Ativan] 0.5 mg PO BID PRN 10/03/21 04/06/22 PHENobarbitaL [Luminal] 129.6 mg PO DAILY 01/28/22 04/06/22 Previous Rx's Medication Instructions Recorded lamoTRIgine [LaMICtal] 200 mg PO BID #0 06/28/20 FLUoxetine HCL [PROzac] 20 mg PO DAILY #30 cap 10/04/21 Allergies Allergy/AdvReac Type Severity Reaction Status Date / Time No Known Allergies Allergy Verified 04/06/22 19:51 Review of Systems ROS Statement: Those systems with pertinent positive or pertinent negative responses have been documented in the HPI. Review of Systems: CONST: Denies fever EYES: Denies blurry vision ENT: Denies nasal congestion C/V: Denies Chest pain RESP: Denies shortness of breath GI: Denies abdominal pain : Denies dysuria SKIN: Denies rash. MSK: Denies joint pain. NEURO: Denies headache PSYCH: Denies homicidal ideations/plans/attempts. Denies visual or auditory hallucinations. He endorses suicidal ideations, plan. Denies attempt. ROS Other: All systems not noted in ROS Statement are negative. Past Medical History Past Medical History: GERD/Reflux, Seizure Disorder, Skin Disorder, Thyroid Disorder Additional Past Medical History / Comment(s): has history of epilepsy, hx grand mal seizures since childhood, migraines, acne, History of Any Multi-Drug Resistant Organisms: None Reported, Unobtainable Past Surgical History: Adenoidectomy, Appendectomy, Cholecystectomy, Tonsillectomy Additional Past Surgical History / Comment(s): oral surgery Past Anesthesia/Blood Transfusion Reactions: Previous Problems w/ Anesthesia Additional Past Anesthesia/Blood Transfusion Reaction / Comment(s): SLOW TO WAKE FROM ANESTHESIA" Past Psychological History: Anxiety, Depression Smoking Status: Never smoker Past Alcohol Use History: None Reported Past Drug Use History: None Reported - Past Family History Mother Family Medical History: Cancer Additional Family Medical History / Comment(s): breast cancer General Exam - General Exam Comments Initial Comments: General: Appears in no acute distress. HEAD: Normal with no signs of head trauma. EYES: PERRLA, EOMI, conjunctiva normal, no discharge. ENT: Hearing grossly intact, normal oropharynx. RESPIRATORY: Clear breath sounds bilaterally. No wheezes, rales, or rhonchi. C/V: Regular rate and rhythm. S1 and S2 auscultated, no edema, peripheral pulses 2+ and intact throughout ABD: Abd is soft, nontender, nondistended EXT: Normal range of motion, no obvious deformity SKIN: No rashes or lesions observed on exposed skin. NEURO: Alert and oriented 4. Limitations: no limitations Course Vital Signs 04/06/22 18:03 Temperature 98.9 F Pulse Rate 91 Respiratory 18 Rate Blood Pressure 128/84 O2 Sat by Pulse 100 Oximetry Procedures - Restraint - Face to Face Restraint Occurrence 1 Patient's Immediate Situation: Endangers self safety, Endangers others' safety, Endangers staff safety Patient's Reaction to the Intervention: Appropriate, Calm, Angry Patient's Medical & Behavioral Condition: Awake, Alert, Follows directions Need to Continue or Terminate Restraint or Seclusion: Continue Face to Face Eval of Restraint Date: 04/06/22 Face to Face Eval of Restraint Time: 18:00 Medical Decision Making - Medical Decision Making Based on the patient's presentation and physical exam, he does require psychiatric evaluation. Was petitioned. No suicidal ideations. Patient is placed in green scrubs. Sitter was ordered. Suicide precautions were ordered. Patient was placed in restraints. [id number] note was completed at 1800. Eventually patient was calm enough to have her strains removed. PRN Haldol and Ativan were ordered for the patient. BAT is 0. UDS is pending. At this time patient is medically cleared for evaluation by psychiatry. Disposition is pending psychiatric evaluation.Patient will be admitted to inpatient psychiatry. Admitted in stable condition. - Lab Data Lab Results 04/06/22 Range/Units 19:52 Urine Opiates Screen Not Detected (NotDetected) Ur Oxycodone Screen Not Detected (NotDetected) Urine Methadone Screen Not Detected (NotDetected) Ur Propoxyphene Screen Not Detected (NotDetected) Ur Barbiturates Screen Detected H (NotDetected) U Tricyclic Antidepress Not Detected (NotDetected) Ur Phencyclidine Scrn Not Detected (NotDetected) Ur Amphetamines Screen Not Detected (NotDetected) U Methamphetamines Scrn Not Detected (NotDetected) U Benzodiazepines Scrn Not Detected (NotDetected) Urine Cocaine Screen Not Detected (NotDetected) U Marijuana (THC) Screen Not Detected (NotDetected) Disposition Clinical Impression: Suicidal ideations, Encounter for psychiatric assessment, Agitation Disposition: ADMITTED IP TO THIS [facility] Condition: Stable Referrals: Ana Maria Samson MD [Primary Care Provider] - 1-2 days
[2022-04-06] MEDS ORDERED: NON FORMULARY DRUG (Cannabidiol (Cbd) [Epidiolex] 100 MG/ML Ml) PO SCH (21:00)
[2022-04-06 21:05] LABS: Amphetamine Screen,Urine Not Detected (NotDetected); Barbiturate Screen,Urine Detected (NotDetected); Benzodiazepines Screen,Urine Not Detected (NotDetected); Cocaine Screen,Urine Not Detected (NotDetected); Methadone Screen, Urine Not Detected (NotDetected); Opiate Screen,Urine Not Detected (NotDetected); Oxycodone Screen, Urine Not Detected (NotDetected); Phencyclidine Screen,Urine Not Detected (NotDetected); Tricyclic Antidepressant,Urine Not Detected (NotDetected); Urn Cannabinoid Scrn Not Detected (NotDetected)
[2022-04-06] MEDS ORDERED: CYCLOBENZAPRINE 10 MG TAB PO PRN (22:00)
[2022-04-06] MEDS: carBAMazepine 200 MG TAB PO SCH (22:36)
[2022-04-06] MEDS: carBAMazepine 400 MG TAB.ER.12H PO SCH (22:37)
[2022-04-06] MEDS: lamoTRIgine 100 MG TAB PO SCH (22:37)
[2022-04-07] MEDS ORDERED: HALOPERIDOL LACTATE 5 MG/ML 1 ML VIAL IM PRN (00:02)
[2022-04-07] MEDS ORDERED: MAGNESIUM HYDROXIDE 2,400 MG/10 ML CUP PO PRN (00:02)
[2022-04-07] MEDS ORDERED: MAG HYDROX/AL HYDROX/SIMETH 30 ML CUP PO PRN (00:02)
[2022-04-07] MEDS ORDERED: LORazepam 1 MG TAB PO PRN (00:02)
[2022-04-07] MEDS ORDERED: ACETAMINOPHEN TAB 325 MG TAB PO PRN (00:02)
[2022-04-07] MEDS ORDERED: LORazepam 2 MG/ML INJ IM PRN (00:04)
[2022-04-07] MEDS: carBAMazepine 200 MG TAB PO SCH ×2 (08:13→22:07)
[2022-04-07] MEDS: FLUoxetine HCL 20 MG CAP PO SCH (08:13)
[2022-04-07] MEDS: lamoTRIgine 100 MG TAB PO SCH ×2 (08:13→21:19)
[2022-04-07] MEDS: CANNABIDIOL 100 MG/ML PO SCH ×2 (08:28→21:20)
[2022-04-07] MEDS ORDERED: NON FORMULARY DRUG (Cannabidiol (Cbd) [Epidiolex] 100 MG/ML Ml) PO SCH ×3 (09:00→22:30)
--- NOTE | 2022-04-07 10:02 | P.CONS ---
History of Present Illness - Reason for Consult Consult date: 04/07/22 - History of Present Illness HISTORY OF PRESENT ILLNESS This is a 32-year-old male patient of Dr. Samson with past medical history of seizure disorder, migraine headaches, anxiety and depression, intellectual disability, verbal ataxia. Patient was hospitalized in September for seizure activity, also with emergency department 2 weeks ago for fever and chills as a sepsis and infection and I believe was supposed to be admitted to the hospital end up signing AGAINST MEDICAL ADVICE. Apparently he has been dealing with a lot of stress in his life lately he has to in the family recently even has been doing well with his child and his at home but he is under a lot of stress and depression become quite bit anxious and has been very frustrated and angry. Patient apparently developed to have suicidal ideation with a threatened that he is [place] he text his and friend that with his doing patient ended up being seen by police department and he was little bit compatible for them at a time ended up bringing him to the emergency department at [facility] was seen and admitted to the psych unit for suicidal ideation and severe depression. REVIEW OF SYSTEMS Constitutional: No fever, no chills, no night sweats. No weight change. No weakness, fatigue or lethargy. No daytime sleepiness. EENT: No headache. No blurred vision or double vision, no loss of vision. No loss of Hearing, no ringing in the ears, no dizziness. No nasal drainage or congestion. No epistaxis. No sore throat. Lungs: No shortness of breath, cough, no sputum production. No wheezing. Cardiovascular: No chest pain, no lower extremity edema. No palpitations. No paroxysmal nocturnal dyspnea. No orthopnea. No lightheadedness or dizziness. No syncopal episodes. Abdominal: No abdominal pain. No nausea, vomiting. No diarrhea. No constipation. No bloody or tarry stools.. No loss of appetite. Genitourinary: No dysuria, increased frequency, urgency. No urinary retention. Musculoskeletal: No myalgias. No muscle weakness, no gait dysfunction, no frequent falls. No back pain. No neck pain. Integumentary: No wounds, no lesions. No rash or pruritus. No unusual bruising. No change in hair or nails. Neurologic: No aphasia. No facial droop. No change in mentation. No head injury. No headache. No paralysis. No paresthesia. Psychiatric: Reports depression and reported the emergency center suicidal ideation. Reports anxiety. Reports mood swings. Endocrine: No abnormal blood sugars. No weight change. No excessive sweating or thirst. No cold intolerance. SOCIAL HISTORY Patient states he does not smoke, use alcohol, use illicit drugs. Lives at home with his and 1 son. FAMILY HISTORY Patient will not provide parents history. Patient has 1 brother and 4 sisters and he also does not know their medical history. He has 1 son with epilepsy. PHYSICAL EXAMINATION Gen: This is a 31-year-old male patient resting in bed on the cardiac stepdown unit. Patient appears to be in no acute distress. HEENT: Head is atraumatic, normocephalic. Pupils equal, round. Sclerae is anicteric. NECK: Supple. No JVD. No lymphadenopathy. No thyromegaly. LUNGS: Clear to auscultation. No wheezes or rhonchi. No intercostal retractions. HEART: Regular rate and rhythm. No murmur. ABDOMEN: Soft. Bowel sounds are present. No masses. No tenderness. EXTREMITIES: No pedal edema. No calf tenderness. NEUROLOGICAL: Patient is awake, alert and oriented x3. Cranial nerves 2 through 12 are grossly intact. ASSESSMENT AND PLAN - Severe depression and suicidal ideation: Patient is admitted to the psych unit will be seen psych adjust his medication continue current management, patient was placed on the short-term benzodiazepine for now. - History of seizure with no activity lately he claims taking his medication very faithfully Epidiolex 300 mg in the morning and 700 in the evening, Tegretol 200 mg twice daily and 400 mg at bedtime, Lamictal 200 mg twice daily, phenobarbital 129.6 mg at bedtime. Soma or medication while he is in psych. - Recurrent depression with suicidal ideation. Continue to be control and manage by psych. - History of migraine headaches. No complaints of headache. - Denies tobacco use or alcohol use. - GERD: Continue patient on Pepcid 20 mg daily. - DVT prophylaxis: Early mobilization and knee-high ALANNAH hose. CODE STATUS: Full code. Dr Paul are much for the consult if I can be any further help to please let me know. Past Medical History Past Medical History: GERD/Reflux, Seizure Disorder, Skin Disorder, Thyroid Disorder Additional Past Medical History / Comment(s): has history of epilepsy, hx grand mal seizures since childhood, migraines, acne, Last seizure was 7-4-21 History of Any Multi-Drug Resistant Organisms: None Reported, Unobtainable Past Surgical History: Adenoidectomy, Appendectomy, Cholecystectomy, Tonsillectomy Additional Past Surgical History / Comment(s): oral surgery Past Anesthesia/Blood Transfusion Reactions: Previous Problems w/ Anesthesia Additional Past Anesthesia/Blood Transfusion Reaction / Comm: SLOW TO WAKE FROM ANESTHESIA" Past Psychological History: Anxiety, Depression Additional Psychological History / Comment(s): per pt-he was in special education classes thru out school(has some intellectual disabilty), speech impediment. able to read and write. Smoking Status: Never smoker Past Alcohol Use History: None Reported Additional Past Alcohol Use History / Comment(s): Denies any alcohol intake since he is on probation til April 2019 Past Drug Use History: None Reported Additional Drug Use History / Comment(s): Denies any illicit drugs or any marijuana use - Past Family History Mother Family Medical History: Cancer Additional Family Medical History / Comment(s): breast cancer Medications and Allergies Home Medications Medication Instructions Recorded Confirmed Type carBAMazepine [TEGretol XR] 400 mg PO HS 10/19/18 04/06/22 History lamoTRIgine [LaMICtal] 200 mg PO BID #0 06/28/20 04/06/22 Rx carBAMazepine [TEGretol] 200 mg PO BID 10/10/20 04/06/22 History Cannabidiol (Cbd) [Epidiolex] 300 mg PO DAILY 10/03/21 04/06/22 History Cannabidiol (Cbd) [Epidiolex] 700 mg PO HS 10/03/21 04/06/22 History Cyclobenzaprine HCl 10 mg PO Q8H PRN 10/03/21 04/06/22 History Ibuprofen [Motrin] 800 mg PO Q8H PRN 10/03/21 04/06/22 History LORazepam [Ativan] 0.5 mg PO BID PRN 10/03/21 04/06/22 History FLUoxetine HCL [PROzac] 20 mg PO DAILY #30 cap 10/04/21 04/06/22 Rx PHENobarbitaL [Luminal] 129.6 mg PO DAILY 01/28/22 04/06/22 History Allergies Allergy/AdvReac Type Severity Reaction Status Date / Time No Known Allergies Allergy Verified 04/06/22 19:51 Physical Exam Vitals: Vital Signs Temp Pulse Pulse Resp BP BP Pulse Ox 04/07/22 00:53 98.1 F 79 20 121/79 04/06/22 18:03 98.9 F 91 18 128/84 100 Intake and Output 04/06/22 04/07/22 04/07/22 22:59 06:59 14:59 Other: Weight 83.915 kg 86.8 kg 87 kg Results Labs: Abnormal Lab Results - Last 24 Hours (Table) 04/06/22 Range/Units 19:52 Ur Barbiturates Screen Detected H (NotDetected)
--- NOTE | 2022-04-07 11:22 | P.HP ---
Psychiatric H&P - . H&P Date: 04/07/22 History & Physical: Allergies Allergy/AdvReac Type Severity Reaction Status Date / Time No Known Allergies Allergy Verified 04/06/22 19:51 Vital Signs Temp 98.1 F 04/07/22 00:53 Pulse 79 04/07/22 00:53 Resp 20 04/07/22 00:53 BP 121/79 04/07/22 00:53 Pulse Ox 100 04/06/22 18:03 FiO2 Intake & Output 04/06/22 04/07/22 04/07/22 18:59 06:59 18:59 Weight 83.915 kg 86.8 kg 87 kg Laboratory Last Values Urine Opiates Screen Not Detected (NotDetected) 04/06/22 19:52 Ur Oxycodone Screen Not Detected (NotDetected) 04/06/22 19:52 Urine Methadone Screen Not Detected (NotDetected) 04/06/22 19:52 Ur Propoxyphene Screen Not Detected (NotDetected) 04/06/22 19:52 Ur Barbiturates Screen Detected (NotDetected) H 04/06/22 19:52 U Tricyclic Antidepress Not Detected (NotDetected) 04/06/22 19:52 Ur Phencyclidine Scrn Not Detected (NotDetected) 04/06/22 19:52 Ur Amphetamines Screen Not Detected (NotDetected) 04/06/22 19:52 U Methamphetamines Scrn Not Detected (NotDetected) 04/06/22 19:52 U Benzodiazepines Scrn Not Detected (NotDetected) 04/06/22 19:52 Urine Cocaine Screen Not Detected (NotDetected) 04/06/22 19:52 U Marijuana (THC) Screen Not Detected (NotDetected) 04/06/22 19:52 Coronavirus (PCR) Not Detected (Not Detectd) 04/06/22 21:48 04/07/22 11:[address] Nvaneet Graham dictating a psychiatric assessment on Stephan Tyler who is a 32-year-old male with a long history of mental illness Patient states that he has been diagnosed with schizoaffective disorder/bipolar disorder in the past Patient states that he also has chronic seizure disorder clonic tonic type He states that the seizures for the most part are well controlled He states that his depression however has gotten worse where he feels helpless and hopeless and that he hates his life He states that he lives with his and a 6-year-old son He states that he is currently on disability He says that he has been feeling suicidal and wanted to jump in the river He says that he feels that he needs a mood stabilizer although is already on Tegretol and Lamictal Patient did not give any specifics on any recent stressors Patient states that he has been hospitalized on this unit on several occasions but did not give any specifics Patient denies any alcohol or substance use Patient was call on the loudspeaker several times to present himself at the front office developer for assessment but never responded Eventually we went to his room where patient was sleeping soundly it He was somewhat difficult to arouse and didn't seem to be motivated Eventually he did agree to set up little bit for this interview Responses however were brief and patient seemed to be a motivated as well as wanting to sleep Mental Status Exam: General Appearance: Patient appears to be stated age, is disheveled, unshaven, dressed in his overnight clothes Orientation: he is alert, oriented to person, place, time. Behavior: Patient is calmly seated without any agitated behavior. Speech: Patient's speech is fluent and nonpressured. Patient however has a slight slur his speech Mood/Affect: Mood is calm, Suicidality/Homicidality: Patient admits having suicidal thoughts but no plan at this time denies any homicidal ideation intent or plan. Perceptions: Patient denies any visual hallucinations and denies any auditory hallucinations. Though content: There is no evidence of paranoid delusional thought content, Thought process: Pessimistic, low self-esteem and confidence self-deprecating Memory and concentration: Grossly intact for the purposes of this session. Judgment and insight: Impaired Radha: Major depressive disorder acute Rule out bipolar disorder depressed type Seizure disorder by history Rule out personality disorder with borderline dependency traits Plan: -Patient continues to meet criteria for inpatient psychiatric admission for symptom stabilization and safety. Patient has signed adult voluntary form and medication consent and was placed in patient's chart. -Medications: Continue Tegretol 200 mg twice a day Tegretol-XR 400 mg at bedtime Flexeril 10 mg every 8 hours when necessary for muscle spasms Patient requested for a mood stabilizer and we will also add Depakote 250 mg twice a day Patient is already on Lamictal which was explained to the patient and may affect the blood levels although the Tegretol can make the blood levels: The different direction and between the 2 of them at balance it out Continue Lamictal 200 mg twice a day -When necessary Ativan and Haldol for agitation/aggression. -NRT - nicotine patch -SW on board for discharge planning. Encouraged the patient to participate in milieu. [ 04/07/22 11:20 Navneet Graham M.D.
[2022-04-07] MEDS ORDERED: DIVALPROEX 250 MG TABLET.DR PO SCH (21:00)
[2022-04-07] MEDS: carBAMazepine 400 MG TAB.ER.12H PO SCH (21:20)
[2022-04-08 08:09] LABS: Basophils # (A) 0.1 k/uL (0-0.2); Basophils % (A) 1 %; Eosinophils # (A) 0.5 k/uL (0-0.7); Eosinophils % (A) 8 %; HCT 43.2 % (39.0-53.0); HGB 14.6 gm/dL (13.0-17.5); Lymphocytes # (A) 2.3 k/uL (1.0-4.8); Lymphocytes % (A) 38 %; MCHC 33.8 g/dL (31.0-37.0); MCV 94.7 fL (80.0-100.0); Mean Platelet Volume 6.7; Monocytes # (A) 0.4 k/uL (0-1.0); Monocytes % (A) 6 %; Neutrophils # (A) 2.7 k/uL (1.3-7.7); Neutrophils % (A) 45 %; Platelet Count 188 k/uL (150-450); RBC 4.56 m/uL (4.30-5.90); RDW 12.8 % (11.5-15.5)
[2022-04-08 08:22] LABS: ALT 11 U/L (4-49); AST 19 U/L (17-59); African American GFR (CKD) >90 (>60 ml/min/1.73 sqM); Albumin 4.7 g/dL (3.5-5.0); Alkaline Phosphatase 102 U/L (38-126); Anion Gap 7 mmol/L; Blood Urea Nitrogen 11 mg/dL (9-20); Calcium 9.1 mg/dL (8.4-10.2); Carbon Dioxide 25 mmol/L (22-30); Chloride 108 mmol/L (98-107); Glucose 94 mg/dL (74-99); Non-African American GFR(CKD) >90 (>60 ml/min/1.73 sqM); Sodium 140 mmol/L (137-145); Total Bilirubin 0.5 mg/dL (0.2-1.3); Total Protein 7.7 g/dL (6.3-8.2)
[2022-04-08] MEDS: lamoTRIgine 100 MG TAB PO SCH ×2 (08:33→21:59)
[2022-04-08] MEDS: carBAMazepine 200 MG TAB PO SCH ×2 (08:33→21:59)
[2022-04-08] MEDS: FLUoxetine HCL 20 MG CAP PO SCH (08:33)
[2022-04-08] MEDS: CANNABIDIOL 100 MG/ML PO SCH ×2 (08:34→22:03)
[2022-04-08 12:32] LABS: Appearance,Urine Clear (Clear); Bilirubin,Urine Negative (Negative); Blood,Urine Negative (Negative); Color,Urine Yellow; Glucose,Urine (UA) Negative (Negative); Ketones,Urine Negative (Negative); Leukocyte Esterase,Urine Trace (Negative); Mucus,Urine Few /hpf; Nitrite,Urine Negative (Negative); PH, Urine 5.5 (5.0-8.0); Protein,Urine Negative (Negative); RBC,Urine 1 /hpf (0-5); Specific Gravity,Urine 1.015 (1.001-1.035); Squamous Epithelial Cell,Urine <1 /hpf (0-4); Urobilinogen,Urine <2.0 mg/dL (<2.0); WBC,Urine 3 /hpf (0-5)
[2022-04-08 15:04] LABS: Chol/HDL Ratio 5.12 Ratio; LDL Cholesterol,Calculated 162.8 mg/dL (0.0-131.0); VLDL Calculation 19.92 mg/dL (5.00-40.00)
--- NOTE | 2022-04-08 18:24 | PN ---
PROGRESS NOTE DATE OF SERVICE: 04/08/2022. CHIEF COMPLAINT: The patient was admitted for depression with hopeless and helpless feelings. INTERVAL HISTORY: The patient has been doing fair. He had a quiet day yesterday he comes out on the unit. He tends to have a quiet manner. He did attend groups yesterday. Staff characterized his presentation as blunted, concrete, and interacting to a minimal degree. He slept fairly well last night. Today, he has been up. He says he continues to do the same. His mood still is down. He notes that his current medication regimen is the same that he was on as an outpatient. He does not clearly identify any specific problems with his medications. He indicated that he has not been having any thoughts of harm, though unfortunately, he presented in a fairly withdrawn manner. It was difficult to be certain that some of these thoughts were not continuing to be present. The best I was able to tell, he tolerates his psychotropic medications. MENTAL STATUS: Patient sat with a little restlessness. He gave fair eye contact. He answered questions with brief responses. He did not say a lot. His affect was flat, mood depressed. He was significantly distressed. There was no outward evidence of thought disorder. It was difficult to assess for thoughts of harm. He was oriented and alert. ASSESSMENT: I will continue the current diagnosis and treatment plan. I will increase Prozac to 40 mg a day as the only medication change at this time. It certainly is a question whether or not his use of luminal and Cannabidiol would be impacting his mood in a negative way. It is not clear that he has a specific seizure disorder where Cannabidiol is indicated. The patient was vague about seizure management issues. He is on a complicated set of psychotropic medications. I briefly reviewed the issues relating to antidepressant therapy, and the appropriateness of increasing the dose of his Prozac. We reviewed potential side effect issues. We will focus on stabilization and discharge planning. MMMODESTAL / KINJALN: [id number] /
[2022-04-08] MEDS ORDERED: LORazepam 1 MG/0.5 ML VIAL IM PRN (18:40)
[2022-04-08] MEDS: carBAMazepine 400 MG TAB.ER.12H PO SCH (21:59)
[2022-04-09] MEDS: CANNABIDIOL 100 MG/ML PO SCH ×2 (08:34→20:44)
[2022-04-09] MEDS: FLUoxetine HCL 20 MG CAP PO SCH (08:35)
[2022-04-09] MEDS: lamoTRIgine 100 MG TAB PO SCH ×2 (08:35→20:47)
[2022-04-09] MEDS: carBAMazepine 200 MG TAB PO SCH ×2 (08:35→20:47)
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
[2022-04-09] MEDS: carBAMazepine 400 MG TAB.ER.12H PO SCH (20:47)
[2022-04-10 07:14] VITALS: BP 123/65; PULSE 67; RESP 16; TEMP 98
[2022-04-10] MEDS: CANNABIDIOL 100 MG/ML PO SCH (08:31)
[2022-04-10] MEDS: FLUoxetine HCL 20 MG CAP PO SCH (08:32)
[2022-04-10] MEDS: carBAMazepine 200 MG TAB PO SCH (08:32)
[2022-04-10] MEDS: lamoTRIgine 100 MG TAB PO SCH (08:32)
--- NOTE | 2022-04-10 11:20 | P.DS ---
Providers Date of admission: 04/06/22 23:56 Expected date of discharge: 04/10/22 Attending physician: Blane Paul MD Consults: 04/07/22 00:02 Consult Physician Routine Consulting Provider: Ana Maria Samson Consult Reason/Comments: H and p Do you want consulting provider notified?: Yes Primary care physician: Ana Maria Samson - Discharge Diagnosis(es) (1) Major depressive disorder without psychotic features Current Visit: Yes Status: Acute Priority: High (2) Seizure disorder Current Visit: Yes Status: Acute Priority: Medium (3) Borderline personality disorder Current Visit: Yes Status: Acute Priority: High Hospital Course: Admission HPI: Admission note was completed by Dr Graham "This is Dr. Navneet Graham dictating a psychiatric assessment on Stephan Tyler who is a 32-year-old male with a long history of mental illness. Patient states that he has been diagnosed with schizoaffective disorder/bipolar disorder in the past. Patient states that he also has chronic seizure disorder clonic tonic type. He states that the seizures for the most part are well controlled. He states that his depression however has gotten worse where he feels helpless and hopeless and that he hates his life. He states that he lives with his and a 6-year-old son. He states that he is currently on disability He says that he has been feeling suicidal and wanted to jump in the river. He says that he feels that he needs a mood stabilizer although is already on Tegretol and Lamictal. Patient did not give any specifics on any recent stressors. Patient states that he has been hospitalized on this unit on several occasions but did not give any specifics. Patient denies any alcohol or substanc e use. Patient was call on the loudspeaker several times to present himself at the front desk admin for assessment but never responded. Eventually we went to his room where patient was sleeping soundly it. He was somewhat difficult to arouse and didn't seem to be motivated Eventually he did agree to set up little bit for this interview. Responses however were brief and patient seemed to be a motivated as well as wanting to sleep" Hospital course: Upon admission to the unit patient was directable and agreeable to commence treatment and signed adult voluntary form . Patient got along well with other patients on the unit and followed unit protocol. Patient was compliant with the medications and denied any side effects throughout hospital course. Patient was started on Tegretol 200 mg twice a day plus Tegretol-XR 400 mg daily at bedtime, Flexeril 10 mg every 8 hours when necessary for muscle spasms, Lamictal 200 mg twice a day for mood stabilization, Prozac was started at 20 mg and increased to 40 mg daily for mood/anxiety. Patient spoke of his stressors and engaged in therapy both group and individual. Patient was also seen by medical team for history and physical exam. Patient's Tegretol level was 5.2 on 04/09. Throughout the course of the hospitalization patient gradually improved with regards to mood, anxiety, sleep and returned back to their baseline level of functioning. On the day of discharge patient denied any suicidal or homicidal ideations intent or plan denied any auditory or visual hallucinations. Patient endorsed wanting to live for his kids and his future. The patient denied any access to guns or weapons. Patient denied any paranoia and did not endorse any delusions. Patient does not have a significant history of substance abuse and was counseled on abstaining from all substances including alcohol and marijuana. Patient was also counseled on the medications and need for regular compliance and was encouraged to follow-up with their outpatient appointment for mental health and also for primary care. Prior to discharge a family meeting will be arranged by delinquency prevention social worker to answer any questions and ensure safety upon discharge. Mental status exam: General Appearance: Patient appears to be unshaven, wearing glasses, stated age is alert, pleasant, and cooperative. Patient is in no acute distress and has improved hygiene and grooming Behavior: Patient is calmly seated without any agitated behavior. Speech: Patient's speech is fluent and nonpressured. Mood/Affect: Patient reports their mood is "good", affect is congruent and constricted Suicidality/Homicidality: Patient denies having any suicidal or homicidal ideation intent or plan. Perceptions: Patient denies any auditory or visual hallucinations. Though content/process: There is no evidence of any delusional thought content and thought process is linear and goal-directed. Memory and concentration: AOX3, grossly intact for the purposes of this session. Can spell "WORLD" backwards correctly. Judgment and insight: chronically poor, however has improved with guarded prognosis Impression: Major depressive disorder, without psychotic features Seizure disorder Borderline personality disorder Plan: -Continue with discharge today as patient has improved and stabilized psychiatrically and is not currently an imminent threat to himself and/or others. Patient will remain at chronically elevated risk for harm to self and/or others due to his impulsivity. -Continue medications: Tegretol 200 mg twice a day, Tegretol-XR 400 mg daily at bedtime, Flexeril 10 mg every 8 hours when necessary for muscle spasms, Lamictal 200 mg twice a day, Prozac 40 mg daily for mood/90. -Patient was counseled on the need for medication compliance and appropriate follow-up at mental health and also primary care for medical issues. Patient verbalized understanding and agreed. -Social work to arrange for and conduct family meeting to ensure safety upon discharge and answer any questions/concerns. Social work also to arrange for patients follow up appointments with [facility] for psychiatric care along with follow up with primary care provider. -Patient counseled on abstaining from recreational drugs and marijuana and alcohol. Was informed/educated on the adverse effects on their physical and mental health. Patient verbally agreed and understood. -Patient was instructed to return to the hospital or seek immediate medical care if their psychiatric or medical symptoms do worsen or reoccur. Allergies Allergy/AdvReac Type Severity Reaction Status Date / Time No Known Allergies Allergy Verified 04/06/22 19:51 Laboratory Results WBC 6.0 k/uL (3.8-10.6) 04/08/22 07:40 RBC 4.56 m/uL (4.30-5.90) 04/08/22 07:40 Hgb 14.6 gm/dL (13.0-17.5) 04/08/22 07:40 Hct 43.2 % (39.0-53.0) 04/08/22 07:40 MCV 94.7 fL (80.0-100.0) 04/08/22 07:40 MCH 32.0 pg (25.0-35.0) 04/08/22 07:40 MCHC 33.8 g/dL (31.0-37.0) 04/08/22 07:40 RDW 12.8 % (11.5-15.5) 04/08/22 07:40 Plt Count 188 k/uL (150-450) 04/08/22 07:40 MPV 6.7 04/08/22 07:40 Neutrophils % 45 % 04/08/22 07:40 Lymphocytes % 38 % 04/08/22 07:40 Monocytes % 6 % 04/08/22 07:40 Eosinophils % 8 % 04/08/22 07:40 Basophils % 1 % 04/08/22 07:40 Neutrophils # 2.7 k/uL (1.3-7.7) 04/08/22 07:40 Lymphocytes # 2.3 k/uL (1.0-4.8) 04/08/22 07:40 Monocytes # 0.4 k/uL (0-1.0) 04/08/22 07:40 Eosinophils # 0.5 k/uL (0-0.7) 04/08/22 07:40 Basophils # 0.1 k/uL (0-0.2) 04/08/22 07:40 Sodium 140 mmol/L (137-145) 04/08/22 07:40 Potassium 4.0 mmol/L (3.5-5.1) 04/08/22 07:40 Chloride 108 mmol/L (98-107) H 04/08/22 07:40 Carbon Dioxide 25 mmol/L (22-30) 04/08/22 07:40 Anion Gap 7 mmol/L 04/08/22 07:40 BUN 11 mg/dL (9-20) 04/08/22 07:40 Creatinine 1.00 mg/dL (0.66-1.25) 04/08/22 07:40 Est GFR (CKD-EPI)AfAm >90 (>60 ml/min/1.73 sqM) 04/08/22 07:40 Est GFR (CKD-EPI)NonAf >90 (>60 ml/min/1.73 sqM) 04/08/22 07:40 Glucose 94 mg/dL (74-99) 04/08/22 07:[address] Glu mg/dL 97 04/08/22 07:40 Hemoglobin A1c 5.0 % (0.0-6.0) 04/08/22 07:40 Calcium 9.1 mg/dL (8.4-10.2) 04/08/22 07:40 Total Bilirubin 0.5 mg/dL (0.2-1.3) 04/08/22 07:40 AST 19 U/L (17-59) 04/08/22 07:40 ALT 11 U/L (4-49) 04/08/22 07:40 Alkaline Phosphatase 102 U/L (38-126) 04/08/22 07:40 Total Protein 7.7 g/dL (6.3-8.2) 04/08/22 07:40 Albumin 4.7 g/dL (3.5-5.0) 04/08/22 07:40 Triglycerides 99.60 mg/dL (0.00-149.00) 04/08/22 07:40 Cholesterol 227.00 mg/dL (0.00-200.00) H 04/08/22 07:40 LDL Cholesterol, Calc 162.8 mg/dL (0.0-131.0) H 04/08/22 07:40 VLDL Cholesterol, Calc 19.92 mg/dL (5.00-40.00) 04/08/22 07:40 HDL Cholesterol 44.30 mg/dL (40.00-60.00) 04/08/22 07:40 Cholesterol/HDL Ratio 5.12 Ratio 04/08/22 07:40 TSH 1.170 mIU/L (0.465-4.680) 04/08/22 07:40 Urine Color Yellow 04/08/22 12:10 Urine Appearance Clear (Clear) 04/08/22 12:10 Urine pH 5.5 (5.0-8.0) 04/08/22 12:10 Ur Specific [place] 1.015 (1.001-1.035) 04/08/22 12:10 Urine Protein Negative (Negative) 04/08/22 12:10 Urine Glucose (UA) Negative (Negative) 04/08/22 12:10 Urine Ketones Negative (Negative) 04/08/22 12:10 Urine Blood Negative (Negative) 04/08/22 12:10 Urine Nitrite Negative (Negative) 04/08/22 12:10 Urine Bilirubin Negative (Negative) 04/08/22 12:10 Urine Urobilinogen <2.0 mg/dL (<2.0) 04/08/22 12:10 Ur Leukocyte Esterase Trace (Negative) H 04/08/22 12:10 Urine RBC 1 /hpf (0-5) 04/08/22 12:10 Urine WBC 3 /hpf (0-5) 04/08/22 12:10 Ur Squamous Epith Cells <1 /hpf (0-4) 04/08/22 12:10 Urine Mucus Few /hpf (None) H 04/08/22 12:10 Urine Opiates Screen Not Detected (NotDetected) 04/06/22 19:52 Ur Oxycodone Screen Not Detected (NotDetected) 04/06/22 19:52 Urine Methadone Screen Not Detected (NotDetected) 04/06/22 19:52 Ur Propoxyphene Screen Not Detected (NotDetected) 04/06/22 19:52 Ur Barbiturates Screen Detected (NotDetected) H 04/06/22 19:52 Carbamazepine 5.2 ug/mL 04/09/22 08:57 U Tricyclic Antidepress Not Detected (NotDetected) 04/06/22 19:52 Ur Phencyclidine Scrn Not Detected (NotDetected) 04/06/22 19:52 Ur Amphetamines Screen Not Detected (NotDetected) 04/06/22 19:52 U Methamphetamines Scrn Not Detected (NotDetected) 04/06/22 19:52 U Benzodiazepines Scrn Not Detected (NotDetected) 04/06/22 19:52 Urine Cocaine Screen Not Detected (NotDetected) 04/06/22 19:52 U Marijuana (THC) Screen Not Detected (NotDetected) 04/06/22 19:52 Coronavirus (PCR) Not Detected (Not Detectd) 04/06/22 21:48 Vital Signs Temp 98 F 04/10/22 06:32 Pulse 67 04/10/22 06:32 Resp 16 04/10/22 06:32 BP 123/65 04/10/22 06:32 Pulse Ox 99 04/09/22 06:35 FiO2 Patient Condition at Discharge: Stable Plan - Discharge Summary Discharge Rx Participant: No New Discharge Prescriptions: New FLUoxetine HCL [PROzac] 40 mg PO DAILY 30 Days cap Continue carBAMazepine [TEGretol XR] 400 mg PO HS lamoTRIgine [LaMICtal] 200 mg PO BID #0 carBAMazepine [TEGretol] 200 mg PO BID Cyclobenzaprine HCl 10 mg PO Q8H PRN PRN Reason: Muscle Spasm Cannabidiol (Cbd) [Epidiolex] 700 mg PO HS Cannabidiol (Cbd) [Epidiolex] 300 mg PO DAILY PHENobarbitaL [Luminal] 129.6 mg PO DAILY Discontinued LORazepam [Ativan] 0.5 mg PO BID PRN PRN Reason: Anxiety/Seizures Ibuprofen [Motrin] 800 mg PO Q8H PRN PRN Reason: Pain FLUoxetine HCL [PROzac] 20 mg PO DAILY #30 cap Discharge Medication List carBAMazepine [TEGretol XR] 400 mg PO HS 10/19/18 [History] lamoTRIgine [LaMICtal] 200 mg PO BID #0 06/28/20 [Rx] carBAMazepine [TEGretol] 200 mg PO BID 10/10/20 [History] Cannabidiol (Cbd) [Epidiolex] 300 mg PO DAILY 10/03/21 [History] Cannabidiol (Cbd) [Epidiolex] 700 mg PO HS 10/03/21 [History] Cyclobenzaprine HCl 10 mg PO Q8H PRN 10/03/21 [History] PHENobarbitaL [Luminal] 129.6 mg PO DAILY 01/28/22 [History] FLUoxetine HCL [PROzac] 40 mg PO DAILY 30 Days cap 04/10/22 [Rx] Follow up Appointment(s)/Referral(s): [facility] [Outside] - 04/11/22 1:30 pm (04/11 @ 13:30 with Kamala 04/18 @ 14:30 with Kamala) Ana Maria Samson MD [Primary Care Provider] - 1-2 days Patient Instructions/Handouts: How to Stop Smoking (DC), Depression (DC) Activity/Diet/Wound Care/Special Instructions: Avoid the use of street drugs and alcohol. Take all prescriptions as prescribed. When you are in need of refills on your medications, please contact your medical provider and/or outpatient psychiatrist to have this done. Please go to scheduled outpatient appointment for aftercare treatment. If symptoms return or become worse, call the crisis line at and/or go to the nearest emergency room for evaluation. Discharge Disposition: HOME SELF-CARE
== END 2022-04-10 13:32 | disposition home or self-care (01) | DRG 881 ==
LOC: EC 18:01 → 3MHU 23:56
PROVIDERS: ADMIT Psychiatry & Neurology Psychiatry; ATTEND Psychiatry & Neurology Psychiatry
DX: F32.9 Major depressive disorder, single episode, unspecified (principal); R45.851 Suicidal ideations; F25.9 Schizoaffective disorder, unspecified; F41.9 Anxiety disorder, unspecified; F60.3 Borderline personality disorder; R47.89 Other speech disturbances; F79 Unspecified intellectual disabilities; K21.9 Gastro-esophageal reflux disease without esophagitis; G43.909 Migraine, unspecified, not intractable, without status migrainosus; E07.9 Disorder of thyroid, unspecified; G40.409 Other generalized epilepsy and epileptic syndromes, not intractable, without status epilepticus; Z78.1 Physical restraint status; Z79.899 Other long term (current) drug therapy; Z91.51 Personal history of suicidal behavior; Z65.3 Problems related to other legal circumstances; Z63.4 Disappearance and death of family member; Z20.822 Contact with and (suspected) exposure to COVID-19; Z28.21 Immunization not carried out because of patient refusal
CPT/HCPCS: 80053; 80061; 80156; 80306; 81001; 82075; 83036; 84443; 85025; 87635; 99285

== ENCOUNTER → 2022-06-27 | Outpatient (CLI) | payer MEDICARE, OTHER ==
[2022-06-27 14:45] LABS: Basophils # (A) 0.07 X 10*3/uL (0.00-0.10); Basophils % (A) 1.3 %; Eosinophils # (A) 0.68 X 10*3/uL (0.04-0.35); HCT 44.8 % (39.6-50.0); HGB 15.2 g/dL (13.0-17.0); Immature Grans, Automated 0.2 %; MCH 31.1 pg (27.0-32.0); MCHC 33.9 g/dL (32.0-37.0); MCV 91.8 fL (80.0-97.0); Mean Platelet Volume 8.7 fL (9.5-12.2); Monocytes # (A) 0.37 X 10*3/uL (0.20-1.00); Monocytes % (A) 7.1 %; NRBC Per 100 WBC 0 /100 WBCS (0.0-0.0); Neutrophils # (A) 1.91 X 10*3/uL (1.80-7.70); Neutrophils % (A) 36.4 %; Platelet Count 203 X 10*3/uL (140-440); RBC 4.88 X 10*6/uL (4.40-5.60); RDW 12.2 % (11.5-14.5); WBC 5.24 X 10*3/uL (4.50-10.00)
[2022-06-27 15:10] LABS: ALT 11 U/L (10-49); AST 15 U/L (14-35); African American GFR (CKD) 101.7 (60.0-200.0); Albumin 4.9 g/dL (3.8-4.9); Albumin/Globulin Ratio 1.75 (1.60-3.17); Alkaline Phosphatase 104 U/L (41-126); BUN/Creat Ratio 9.73 Ratio (12.00-20.00); Blood Urea Nitrogen 10.7 mg/dL (9.0-27.0); Calcium 9.6 mg/dL (8.7-10.3); Carbon Dioxide 27.4 mmol/L (20.0-27.5); Chloride 103 mmol/L (96-109); Chol/HDL Ratio 4.73 Ratio; Globulin 2.8 g/dL (1.6-3.3); Glucose 97 mg/dL (70-110); LDL Cholesterol,Calculated 119.8 mg/dL (0.0-131.0); Lipase 22 U/L (14-60); Non-African American GFR(CKD) 87.7 (60.0-200.0); Potassium 4.3 mmol/L (3.5-5.5); Sodium 141 mmol/L (135-145); Total Protein 7.7 g/dL (6.2-8.2)
[2022-06-28 09:19] LABS: Carbamazepine Free 1.2 ug/mL (0.9-3.8)
[2022-06-28 09:47] LABS: Lamotrigine (Lamictal) 2.3 ug/mL (2.0-15.0)
== END ==
LOC: LABWHC1 08:40
PROVIDERS: ATTEND Family Medicine
DX: Z00.00 Encounter for general adult medical examination without abnormal findings (principal); G40.802 Other epilepsy, not intractable, without status epilepticus; E53.8 Deficiency of other specified B group vitamins; E55.9 Vitamin D deficiency, unspecified; Z13.228 Encounter for screening for other metabolic disorders; R11.2 Nausea with vomiting, unspecified
CPT/HCPCS: 36415; 80053; 80061; 80157; 80175; 80184; 82306; 82607; 83690; 84443; 85025

== ENCOUNTER → 2022-06-28 | Outpatient (CLI) | payer MEDICARE, MEDICAID | END | disposition home or self-care (01) | LOC: RADUSWWP 10:00 | PROVIDERS: ATTEND Family Medicine | DX: R13.14 Dysphagia, pharyngoesophageal phase (principal) ==

== ENCOUNTER → 2022-07-05 | Outpatient (CLI) | payer MEDICARE, OTHER ==
--- NOTE | 2022-07-05 14:30 | FL ---
EXAMINATION TYPE: FL barium swallow DATE OF EXAM: 07/05/2022 COMPARISON: None HISTORY: Vomiting was swallowing TECHNIQUE: A single contrast UGI study is performed. FINDINGS: Fluoroscopy time: 17 seconds. Images: 175. Patient swallowed the bolus without difficulty. A small amounts were swallowed during the exam. Contrast passes through the esophagus to the gastroesophageal junction without hesitancy. No dilated esophagus is evident. Patient began engaging and spit out small amount of material procedure was term inated. Patient went to the bathroom and was gated. IMPRESSIONS: 1. Limited esophagram. Patient had symptoms of vomiting during the exam. No obvious stenosis or reflu x identified
== END | disposition home or self-care (01) ==
LOC: RADUSWWP 09:57
PROVIDERS: ATTEND Family Medicine
DX: R13.14 Dysphagia, pharyngoesophageal phase (principal)
CPT/HCPCS: 74220

== ENCOUNTER 2022-08-19 10:47 | Emergency (ER) | payer MEDICARE, OTHER ==
[2022-08-19 10:53] VITALS: BP 155/66; PULSE 70; RESP 18; TEMP 97.6
[2022-08-19] MEDS ORDERED: LIDOCAINE 1% INJ 10MG/ML (30 ML VIAL-PF) SQ ONE (13:50)
--- NOTE | 2022-08-19 13:54 | ED ---
Skin/Abscess/FB HPI - General Chief complaint: Skin/Abscess/Foreign Body Stated complaint: Back abcess Time Seen by Provider: 08/19/22 13:48 Source: patient, RN notes reviewed Mode of arrival: ambulatory Limitations: no limitations - History of Present Illness Initial comments: 32-year-old male present emergency department with chief complaint of abscess on his back. Patient states started a few days ago was placed on Bactrim by urgent care. They told him it may need to be "not improving. Patient states that he's had minimal improvement no fevers or chills no other social complaints. - Related Data Home Medications Medication Instructions Recorded Confirmed carBAMazepine [TEGretol XR] 400 mg PO HS 10/19/18 04/06/22 carBAMazepine [TEGretol] 200 mg PO BID 10/10/20 04/06/22 Cannabidiol (Cbd) [Epidiolex] 300 mg PO DAILY 10/03/21 04/06/22 Cannabidiol (Cbd) [Epidiolex] 700 mg PO HS 10/03/21 04/06/22 Cyclobenzaprine HCl 10 mg PO Q8H PRN 10/03/21 04/06/22 PHENobarbitaL [Luminal] 129.6 mg PO DAILY 01/28/22 04/06/22 Previous Rx's Medication Instructions Recorded lamoTRIgine [LaMICtal] 200 mg PO BID #0 06/28/20 FLUoxetine HCL [PROzac] 40 mg PO DAILY 30 Days cap 04/10/22 Allergies Allergy/AdvReac Type Severity Reaction Status Date / Time No Known Allergies Allergy Verified 08/19/22 10:53 Review of Systems ROS Statement: Those systems with pertinent positive or pertinent negative responses have been documented in the HPI. ROS Other: All systems not noted in ROS Statement are negative. Past Medical History Past Medical History: GERD/Reflux, Seizure Disorder, Skin Disorder, Thyroid Disorder Additional Past Medical History / Comment(s): has history of epilepsy, hx grand mal seizures since childhood, migraines, acne, Last seizure was 7-4-21 History of Any Multi-Drug Resistant Organisms: None Reported, Unobtainable Past Surgical History: Adenoidectomy, Appendectomy, Cholecystectomy, Tonsillectomy Additional Past Surgical History / Comment(s): oral surgery Past Anesthesia/Blood Transfusion Reactions: Previous Problems w/ Anesthesia Additional Past Anesthesia/Blood Transfusion Reaction / Comment(s): SLOW TO WAKE FROM ANESTHESIA" Past Psychological History: Anxiety, Depression Smoking Status: Never smoker Past Alcohol Use History: Occasional Past Drug Use History: None Reported - Past Family History Mother Family Medical History: Cancer Additional Family Medical History / Comment(s): breast cancer General Exam Limitations: no limitations General appearance: alert, in no apparent distress Head exam: Present: atraumatic, normocephalic, normal inspection Respiratory exam: Present: normal lung sounds bilaterally. Absent: respiratory distress, wheezes, rales, rhonchi, stridor Cardiovascular Exam: Present: regular rate, normal rhythm, normal heart sounds. Absent: systolic murmur, diastolic murmur, rubs, gallop, clicks Back exam: Present: other (3 cm abscess on mid to lower back centralized) Course Vital Signs 08/19/22 10:51 Temperature 97.6 F Pulse Rate 70 Respiratory 18 Rate Blood Pressure 155/66 O2 Sat by Pulse 99 Oximetry Procedures - Incision & Drainage Consent Obtained: verbal consent, written consent Site: back Size (cm): 3 Anesthetic Used: lidocaine 1%, without epi Amount (mLs): 5 I&D Cleaning Method: Alcohol Wipe Sterile Field Used?: No Scalpel Used: #11 I&D Drainage Obtained: Pus, Blood Culture Obtained?: No Patient Tolerated Procedure: well, no complications Medical Decision Making - Medical Decision Making 32-year-old presented for cyst, abscess to his back. I&D was performed patient continue antibiotics, warm compresses return parameters were discussed. Disposition Clinical Impression: Infected sebaceous cyst Disposition: HOME SELF-CARE Instructions (If sedation given, give patient instructions): Abscess Incision and Drainage (DC) Additional Instructions: Please return to the Emergency Department if symptoms worsen or any other concerns. Continue antibiotics as directed., Apply warm compresses. Is patient prescribed a controlled substance at d/c from ED?: No Referrals: Ana Maria Samson MD [Primary Care Provider] - 1-2 days Vazquez Carrera MD [STAFF PHYSICIAN] - 1-2 days Tyrese Pal MD [STAFF PHYSICIAN] - 1-2 days Time of Disposition: 14:07
== END 2022-08-19 14:21 | disposition home or self-care (01) ==
LOC: EC 10:47
DX: L72.3 Sebaceous cyst (principal); F41.9 Anxiety disorder, unspecified; F32.A Depression, unspecified
CPT/HCPCS: 99282; 10060; J2001

== ENCOUNTER 2022-08-30 08:09 | Day surgery (SDC) | payer MEDICARE, OTHER ==
[2022-08-28 16:06] VITALS: BMI 26.4
[~2022-08-30 08:09] MED LIST: ACETAMINOPHEN TAB 325 MG TAB ONE; LACTATED RINGERS 1,000 ML IV SCH
[2022-08-30 10:06] VITALS: RESP 16; TEMP 98.6
[2022-08-30] MEDS ORDERED: fentaNYL (PF) 50 MCG/ML 2 ML AMP ONE (11:03)
[2022-08-30] MEDS ORDERED: LIDOCAINE 2% INJ 20 MG/ML (2 ML VIAL) ONE (11:03)
[2022-08-30] MEDS ORDERED: PROPOFOL 10 MG/ML 20 ML VIAL IV ONE (11:03)
[2022-08-30] MEDS ORDERED: MIDAZOLAM 2 MG/2 ML VIAL ONE (11:03)
--- NOTE | 2022-08-30 11:15 | P.PCN ---
Date of Procedure: 08/30/22 Procedure(s) Performed: BRIEF HISTORY: Patient is a 32-year-old, pleasant, male scheduled for an upper endoscopy as a part of evaluation of persistent nausea vomiting for the last 6 weeks duration. He denies any abdominal pain. He underwent a gallbladder surgery about 6 weeks ago for the same symptoms with no help.. PROCEDURE PERFORMED: Esophagogastroduodenoscopy with biopsy. PREOPERATIVE DIAGNOSIS: Persistent nausea vomiting of 6 weeks duration. IV sedation per anesthesia. PROCEDURE: After informed consent was obtained, the patient was brought into the endoscopy unit. IV sedation was administered by Anesthesia under continuous monitoring. Initially the Olympus GIF-140 video endoscope was inserted into the mouth. Esophagus intubated without any difficulty. It was gradually advanced into the stomach and duodenum and carefully examined. The bulb and the second part of the duodenum appeared normal. The scope at this time was withdrawn to the stomach, adequately insufflated with air, and upon careful examination, mucosa of the antrum, mild diffuse gastritis and biopsies were done from this area. The body, cardia and the fundus appeared normal. The scope was then withdrawn into the esophagus. The GE junction was located at 39 cm from the incisors. There were no erosions or ulcerations seen. The mucosal folds in the mid and distal esophagus with thickened and edematous and multiple biopsies were done from this area to rule out years of esophagitis. The proximal esophagus appeared normal and the patient tolerated the procedure well. IMPRESSION: 1. Mild antral gastritis. 2. Thickening of the mid and distal esophageal mucosal folds suspicious for eosinophilic esophagitis status post multiple biopsies RECOMMENDATIONS: The findings of this examination were discussed with the patient as well as his family. He was advised to follow with the biopsy results. In the meantime we will start him on Prilosec 20 mg twice daily and was briefly educated about antireflux measures
[2022-08-30 11:53] VITALS: BP 110/72; PULSE 63
== END 2022-08-30 12:24 | disposition home or self-care (01) ==
LOC: ORWHC2ENDO 08:09
PROVIDERS: ATTEND Internal Medicine Gastroenterology
DX: K29.50 Unspecified chronic gastritis without bleeding (principal); K20.90 Esophagitis, unspecified without bleeding; F32.A Depression, unspecified; K21.9 Gastro-esophageal reflux disease without esophagitis; Z79.899 Other long term (current) drug therapy
CPT/HCPCS: 88305; 43239; J2250; J3010; J2704; J2001

== ENCOUNTER → 2022-09-09 | Outpatient (CLI) | payer MEDICARE, OTHER ==
[2022-09-10 04:44] LABS: Clam IgE <0.10 kU/L; Codfish IgE <0.10 kU/L; Egg White IgE <0.10 kU/L; Peanut IgE <0.10 kU/L; Scallop IgE <0.10 kU/L; Shrimp IgE <0.10 kU/L; Soybean IgE <0.10 kU/L; Walnut IgE (Food) <0.10 kU/L
== END | disposition home or self-care (01) ==
LOC: LABWHC1 16:02
PROVIDERS: ATTEND Otolaryngology
DX: J30.89 Other allergic rhinitis (principal)
CPT/HCPCS: 36415; 82785; 86003

== ENCOUNTER 2022-09-24 23:08 | Inpatient (IN) | payer MEDICARE, MEDICAID ==
[2022-09-25] MEDS ORDERED: lamoTRIgine 100 MG TAB PO STA (02:01)
[2022-09-25] MEDS ORDERED: ZONISAMIDE 100 MG CAP PO STA (02:01)
[2022-09-25] MEDS ORDERED: carBAMazepine 200 MG TAB PO STA (02:01)
--- NOTE | 2022-09-25 02:36 | ED ---
Psych HPI - General Chief Complaint: Psychiatric Symptoms Stated Complaint: Mental health Time Seen by Provider: 09/25/22 01:25 Source: patient Mode of arrival: ambulatory - History of Present Illness Initial Comments: Patient is a 32-year-old male presenting with chief complaint of suicidal or homicidal thoughts. Patient states the thoughts of been going on since September 11. Patient has thoughts of harming his mother after an incident involving his son that occurred in 2019. Patient has no plans to harm himself or his mother. He denies any physical complaints at this time. No chest pain, difficulty breathing, abdominal pain, nausea or vomiting, cough, congestion, sore throat. - Related Data Home Medications Medication Instructions Recorded Confirmed carBAMazepine [TEGretol XR] 400 mg PO HS 10/19/18 08/30/22 carBAMazepine [TEGretol] 200 mg PO BID 10/10/20 08/30/22 Cyclobenzaprine HCl 10 mg PO Q8H PRN 10/03/21 08/30/22 PHENobarbitaL [Luminal] 64.8 mg PO DAILY 08/28/22 08/30/22 Zonisamide [Zonegran] 200 mg PO HS 08/28/22 08/30/22 Cannabidiol (Cbd) [Epidiolex] 4 ml PO 08/30/22 Previous Rx's Medication Instructions Recorded lamoTRIgine [LaMICtal] 200 mg PO BID #0 06/28/20 FLUoxetine HCL [PROzac] 40 mg PO DAILY 30 Days cap 04/10/22 Allergies Allergy/AdvReac Type Severity Reaction Status Date / Time No Known Allergies Allergy Verified 09/25/22 00:51 Review of Systems ROS Statement: Those systems with pertinent positive or pertinent negative responses have been documented in the HPI. ROS Other: All systems not noted in ROS Statement are negative. Past Medical History Past Medical History: GERD/Reflux, Seizure Disorder, Skin Disorder, Thyroid Disorder Additional Past Medical History / Comment(s): has history of epilepsy, hx grand mal seizures since childhood, migraines, acne, Last seizure was 07/28/22 History of Any Multi-Drug Resistant Organisms: None Reported, Unobtainable Past Surgical History: Adenoidectomy, Appendectomy, Cholecystectomy, Tonsillectomy Additional Past Surgical History / Comment(s): oral surgery. I & D CYST ON BACK 08/19/22. MULTIPLE STITCHES Past Anesthesia/Blood Transfusion Reactions: Previous Problems w/ Anesthesia Additional Past Anesthesia/Blood Transfusion Reaction / Comment(s): SLOW TO WAKE FROM ANESTHESIA" Past Psychological History: Anxiety, Depression Smoking Status: Never smoker - Past Family History Mother Family Medical History: Cancer Additional Family Medical History / Comment(s): breast cancer General Exam Limitations: no limitations General appearance: alert, in no apparent distress Head exam: Present: atraumatic, normocephalic, normal inspection Eye exam: Present: normal appearance Neck exam: Present: normal inspection Respiratory exam: Present: normal lung sounds bilaterally. Absent: respiratory distress, wheezes, rales, rhonchi, stridor Cardiovascular Exam: Present: regular rate, normal rhythm, normal heart sounds. Absent: systolic murmur, diastolic murmur, rubs, gallop, clicks Neurological exam: Present: alert, oriented X3, CN II-XII intact Psychiatric exam: Present: normal affect, normal mood, homicidal ideation, suicidal ideation Skin exam: Present: warm, dry, intact, normal color. Absent: rash Course Vital Signs 09/25/22 00:48 Temperature 98.7 F Pulse Rate 79 Respiratory 18 Rate Blood Pressure 117/77 O2 Sat by Pulse 98 Oximetry - Reevaluation(s) Reevaluation #1: Patient is signed out to my attending Dr. Swan while awaiting EPS evaluation 09/25/22 04:25 Medical Decision Making - Lab Data Lab Results 09/25/22 09/25/22 Range/Units 02:20 03:12 Urine Opiates Screen Not Detected (NotDetected) Ur Oxycodone Screen Not Detected (NotDetected) Urine Methadone Screen Not Detected (NotDetected) Ur Propoxyphene Screen Not Detected (NotDetected) Ur Barbiturates Screen Detected H (NotDetected) U Tricyclic Antidepress Not Detected (NotDetected) Ur Phencyclidine Scrn Not Detected (NotDetected) Ur Amphetamines Screen Not Detected (NotDetected) U Methamphetamines Scrn Not Detected (NotDetected) U Benzodiazepines Scrn Detected H (NotDetected) Urine Cocaine Screen Not Detected (NotDetected) U Marijuana (THC) Screen Not Detected (NotDetected) Coronavirus (PCR) Not Detected (Not Detectd) Disposition Referrals: Ana Maria Samson MD [Primary Care Provider] - 1-2 days
[2022-09-25 03:31] LABS: Amphetamine Screen,Urine Not Detected (NotDetected); Barbiturate Screen,Urine Detected (NotDetected); Benzodiazepines Screen,Urine Detected (NotDetected); Cocaine Screen,Urine Not Detected (NotDetected); Methadone Screen, Urine Not Detected (NotDetected); Opiate Screen,Urine Not Detected (NotDetected); Oxycodone Screen, Urine Not Detected (NotDetected); Phencyclidine Screen,Urine Not Detected (NotDetected); Tricyclic Antidepressant,Urine Not Detected (NotDetected); Urn Cannabinoid Scrn Not Detected (NotDetected)
[2022-09-25] MEDS ORDERED: MAGNESIUM HYDROXIDE 2,400 MG/10 ML CUP PO PRN (05:19)
[2022-09-25] MEDS ORDERED: MAG HYDROX/AL HYDROX/SIMETH 30 ML CUP PO PRN (05:19)
[2022-09-25] MEDS ORDERED: ACETAMINOPHEN TAB 325 MG TAB PO PRN (05:19)
[2022-09-25] MEDS ORDERED: CYCLOBENZAPRINE 10 MG TAB PO PRN (05:23)
[2022-09-25] MEDS ORDERED: LORazepam 1 MG TAB PO PRN (05:26)
[2022-09-25] MEDS ORDERED: HALOPERIDOL LACTATE 5 MG/ML 1 ML VIAL IM PRN (05:26)
[2022-09-25] MEDS ORDERED: LORazepam 2 MG/ML INJ IM PRN (05:26)
[2022-09-25] MEDS ORDERED: haloperidoL 5 MG TAB PO PRN (05:26)
[2022-09-25] MEDS: carBAMazepine 200 MG TAB PO SCH ×2 (08:04→20:05)
[2022-09-25] MEDS: lamoTRIgine 100 MG TAB PO SCH ×2 (08:04→20:06)
[2022-09-25] MEDS: FLUoxetine HCL 20 MG CAP PO SCH (08:04)
[2022-09-25] MEDS: NICOTINE 14MG/24HR PATCH TRANSDERM SCH (08:07)
--- NOTE | 2022-09-25 13:04 | P.HP ---
Psychiatric H&P - . H&P Date: 09/25/22 History & Physical: Allergies Allergy/AdvReac Type Severity Reaction Status Date / Time No Known Allergies Allergy Verified 09/25/22 00:51 Vital Signs Temp 98.6 F 09/25/22 06:49 Pulse 82 09/25/22 06:49 Resp 18 09/25/22 06:49 BP 121/74 09/25/22 06:49 Pulse Ox 98 09/25/22 06:49 FiO2 Intake & Output 09/24/22 09/25/22 09/25/22 18:59 06:59 18:59 Weight 87.997 kg Laboratory Last Values Urine Opiates Screen Not Detected (NotDetected) 09/25/22 03:12 Ur Oxycodone Screen Not Detected (NotDetected) 09/25/22 03:12 Urine Methadone Screen Not Detected (NotDetected) 09/25/22 03:12 Ur Propoxyphene Screen Not Detected (NotDetected) 09/25/22 03:12 Ur Barbiturates Screen Detected (NotDetected) H 09/25/22 03:12 U Tricyclic Antidepress Not Detected (NotDetected) 09/25/22 03:12 Ur Phencyclidine Scrn Not Detected (NotDetected) 09/25/22 03:12 Ur Amphetamines Screen Not Detected (NotDetected) 09/25/22 03:12 U Methamphetamines Scrn Not Detected (NotDetected) 09/25/22 03:12 U Benzodiazepines Scrn Detected (NotDetected) H 09/25/22 03:12 Urine Cocaine Screen Not Detected (NotDetected) 09/25/22 03:12 U Marijuana (THC) Screen Not Detected (NotDetected) 09/25/22 03:12 Coronavirus (PCR) Not Detected (Not Detectd) 09/25/22 02:20 09/25/22 13:03 IDENTIFYING DATA: Patient is a 32-year-old male with significant history of seizure disorder, depressive disorder, and borderline personality disorder who presents for hospital with a chief complaint of homicidal ideation. HPI: Patient presented to the hospital on 09/25/2022, brought in marriage department on his own volition with complaints of suicidal and homicidal ideation. The patient signed himself voluntarily on to the psychiatric unit. Upon evaluation psychiatric unit, the patient reports that he is feeling extremely homicidal towards his mother. He states that he is upset with his mother for how she was negligent in caring for his son/her grandson back in 2018. He reports that he attempted to file a restraining order because of how upset he was with his mother and her violation of his wishes to have her leave his family alone. The patient reports that he became very angry after receiving a [place] card from his mother addressed to his son. He states that his mother "put $40 a [place] card and said, 'just in case Judy does not show.' I am Judy. She shouldn't do that." The patient expresses he is very upset with her and he has tried to file a restraining order but because she is friends with all the judges, no restraining order could be filed. In regards to depressive symptoms, he reports no significant changes aside from low mood and sadness. He denies any change in his appetite or hygiene and grooming. He does report poor sleep. He denies any significant symptoms of zac or hypomania. He reports no mood lability, grandiosity, or racing thoughts. He denies any periods of excessive energy or increased goal directed activity. The patient does not report any significant history of psychosis. He denies any auditory or visual hallucinations. He reports no paranoia or other delusions. PAST PSYCHIATRIC HISTORY: Patient has previous diagnosis of major depressive disorder and borderline personality disorder. He is currently prescribed a regimen of Lamictal, Tegretol, Prozac, and Vraylar. He was last hospitalized on a psychiatric unit in March 2022. He currently is open with the [facility]. He denies any prior attempts at suicide. PMH: Past Medical History: GERD/Reflux, Seizure Disorder, Skin Disorder, Thyroid Disorder Additional Past Medical History / Comment(s): has history of epilepsy, hx grand mal seizures since childhood, migraines, acne, Last seizure was 07/28/22 History of Any Multi-Drug Resistant Organisms: None Reported, Unobtainable Past Surgical History: Adenoidectomy, Appendectomy, Cholecystectomy, Tonsillectomy Additional Past Surgical History / Comment(s): oral surgery. I & D CYST ON BACK 08/19/22. MULTIPLE STITCHES Past Anesthesia/Blood Transfusion Reactions: Previous Problems w/ Anesthesia Additional Past Anesthesia/Blood Transfusion Reaction / Comment(s): SLOW TO WAKE FROM ANESTHESIA" Past Psychological History: Anxiety, Depression Smoking Status: Never smoker ALLERGIES: NO KNOWN DRUG ALLERGIES CHEMICAL DEPENDENCY HISTORY: Patient reports no tobacco, marijuana, or illicit drug use. He reports rare alcohol use. FAMILY PSYCHIATRIC/SUBSTANCE USE HISTORY: No reported psychiatric history SOCIAL HISTORY: Patient was born and raised in [place], [place]. He is currently and has a [id number] son. He has an associates degree. He is currently on disability. MENTAL STATUS EXAM: General Appearance: Patient appears to be stated age is alert, directable, and attempts to cooperate. Patient appears to have fair hygiene and grooming. Behavior: Patient is seated without any agitated behavior. Psychomotor activity appears normal. Speech: Patient's speech is fluent and nonpressured. Subtly dysarthric. Mood/Affect: Patient reports their mood is angry, affect is congruent and irritable. Suicidality/Homicidality: Patient endorses homicidal ideation. Denies any suicidal ideation. Perceptions: Patient denies any visual hallucinations and denies any auditory hallucinations Though content/process: There is no evidence of any delusional thought content and thought process is linear and goal-directed. Memory and concentration: AOX3, grossly intact for the purposes of this session. Can spell "WORLD" backwards Judgment and insight: poor STRENGTHS/WEAKNESSES: Strength is that the patient is open and services. Weakness is that the patient has very poor ego integrity. INTELLECT: Below average to average IMPRESSIONS: Major depressive disorder, recurrent, severe, with psychotic features Borderline personality disorder Seizure disorder PLAN: -Patient is admitted under voluntary status to MHU for stabilization of psychiatric symptoms and safety. Patient signed adult voluntary form and medication consent and is placed in patient's chart. -Medications : Will start patient on Risperdal 0.5 mg by mouth twice a day for mood stabilization. We do not have Vraylar on formulary. Continue Tegretol 200 mg by mouth twice a day and 400 mg by mouth at bedtime for seizure disorder Continue Lamictal 200 mg by mouth twice a day for seizure disorder/mood -Ativan Haldol PRN for agitation/aggression -This provider spent approximately 30 minutes engaging in dialectical behavioral therapy and motivational interviewing with the patient. -Patient was counselled on substance abuse and desired to cut back on use -Patient was informed of the risks, benefits and side effects of the medication and patient verbally consented to taking the medications. -Internal Medicine consult to perform medical evaluation and physical. -SW on board for discharge planning. Encourage patient to participate in groups to work on coping skills. 09/25/22 13:04
[2022-09-25] MEDS ORDERED: PANTOPRAZOLE 40 MG TABLET PO SCH (15:00)
[2022-09-25] MEDS: PANTOPRAZOLE 40 MG TABLET PO SCH (18:14)
[2022-09-25 19:40] LABS: Appearance,Urine Clear (Clear); Bilirubin,Urine Negative (Negative); Blood,Urine Negative (Negative); Calcium Oxalate Crystals,Urine Rare /hpf; Color,Urine Yellow; Glucose,Urine (UA) Negative (Negative); Ketones,Urine Negative (Negative); Leukocyte Esterase,Urine Negative (Negative); Mucus,Urine Few /hpf; Nitrite,Urine Negative (Negative); Protein,Urine 1+ (Negative); RBC,Urine 1 /hpf (0-5); Specific Gravity,Urine 1.032 (1.001-1.035); Urobilinogen,Urine <2.0 mg/dL (<2.0); WBC,Urine 2 /hpf (0-5)
[2022-09-25] MEDS: carBAMazepine 400 MG TAB.ER.12H PO SCH (20:05)
[2022-09-25] MEDS: ZONISAMIDE 100 MG CAP PO SCH (20:05)
[2022-09-25] MEDS: risperiDONE 0.5 MG TAB PO SCH (20:06)
[2022-09-25] MEDS ORDERED: ZONISAMIDE 100 MG CAP PO SCH (21:00)
--- NOTE | 2022-09-26 01:17 | P.MDCNMH ---
History of Present Illness H&P Date: 09/25/22 Chief Complaint: Homicidal ideation Patient is a 32-year-old male with a known history of seizure disorder, hypothyroidism, migraine headaches, anxiety/depression and GERD presents to ER with complaints of homicidal ideation. Patient stated he has been having thoughts of harming his mother after incident involving his son according 2019. Patient otherwise denied any suicidal ideation. Patient was admitted to inpatient psychiatric unit. Otherwise patient currently denies any complaints of chest pain or shortness of breath. No nausea vomiting abdominal pain or diarrhea. No cough or sputum production. Any recent illnesses. Laboratory data not available at this time. Urinalysis is negative for infection. UDS is positive for benzodiazepines and barbiturates. Coronavirus PCR not detected. Review of Systems Constitutional: Patient denies any fever or chills . no Generalized weakness. Abdomen: Patient denied any nausea or vomiting or abd. pain Cardiovascular: Patient denies any chest pain or short of breath no palpitations. Respiratory: patient denied any cough . no sputum production. No shortness of breath Neurologic: Patient denied any numbness or tingling headache. Musculoskeletal: Patient denies any complaints of joint swelling or deformity. Skin: Negative Psychiatric: Patient did have homicidal ideation, denied suicidal ideation. Endocrine: No heat or cold intolerance. No recent weight gain. Genitourinary: No dysuria or hematuria. All other 14 point ROS negative except the above Past Medical History Past Medical History: GERD/Reflux, Seizure Disorder, Skin Disorder, Thyroid Disorder Additional Past Medical History / Comment(s): has history of epilepsy, hx grand mal seizures since childhood, migraines, acne, Last seizure was 07/28/22 History of Any Multi-Drug Resistant Organisms: None Reported, Unobtainable Past Surgical History: Adenoidectomy, Appendectomy, Cholecystectomy, Tonsillectomy Additional Past Surgical History / Comment(s): oral surgery. I & D CYST ON BACK 08/19/22. MULTIPLE STITCHES Past Anesthesia/Blood Transfusion Reactions: Previous Problems w/ Anesthesia Additional Past Anesthesia/Blood Transfusion Reaction / Comment(s): SLOW TO WAKE FROM ANESTHESIA" Past Psychological History: Anxiety, Depression Smoking Status: Never smoker - Past Family History Mother Family Medical History: Cancer Additional Family Medical History / Comment(s): breast cancer Medications and Allergies Home Medications Medication Instructions Recorded Confirmed Type carBAMazepine [TEGretol XR] 400 mg PO HS 10/19/18 08/30/22 History lamoTRIgine [LaMICtal] 200 mg PO BID #0 06/28/20 08/30/22 Rx carBAMazepine [TEGretol] 200 mg PO BID 10/10/20 08/30/22 History Cyclobenzaprine HCl 10 mg PO Q8H PRN 10/03/21 08/30/22 History FLUoxetine HCL [PROzac] 40 mg PO DAILY 30 Days cap 04/10/22 08/30/22 Rx PHENobarbitaL [Luminal] 64.8 mg PO DAILY 08/28/22 08/30/22 History Zonisamide [Zonegran] 200 mg PO HS 08/28/22 08/30/22 History Cannabidiol (Cbd) [Epidiolex] 4 ml PO 08/30/22 History Allergies Allergy/AdvReac Type Severity Reaction Status Date / Time No Known Allergies Allergy Verified 09/25/22 00:51 Physical Exam Vitals: Vital Signs Temp Pulse Pulse Resp BP BP Pulse Ox 09/25/22 06:49 98.6 F 82 18 121/74 98 09/25/22 00:48 98.7 F 79 18 117/77 98 Intake and Output 09/25/22 09/25/22 09/25/22 06:59 14:59 22:59 Other: Weight 87.997 kg PHYSICAL EXAMINATION: Patient is lying in the bed comfortably, no acute distress, awake alert and oriented.. Slow to communicate and somewhat poor historian. HEENT: Normocephalic. Neck is supple. Pupils reactive. Nostrils clear. Oral cavity is moist. Neck reveals no JVD, carotid bruits, or thyromegaly. CHEST EXAMINATION: Trachea is central. Symmetrical expansion. Lung moya clear to auscultation and percussion. CARDIAC: Normal S1, S2 with no gallops. No murmurs ABDOMEN: Soft. Bowel sounds present. Nontender. No organomegaly. No abdominal bruits. Extremities: reveal no edema. No clubbing or cyanosis Neurologically awake, alert, oriented x2-3 with well-coordinated movements. No focal deficits noted Skin: No rash or skin lesions. Psychiatric: Coperative. Denied suicidal ideation. Musculoskeletal: No joint swelling or deformity. Normal range of motion. Cranial Nerve Examination - Cranial Nerves Cranial Nerve I- Olfactory: Intact Cranial Nerve II- Optic: Intact Cranial Nerve III- Oculomotor: Intact Cranial Nerve IV- Trochlear: Intact Cranial Nerve V- Trigeminal: Intact Cranial Nerve - Abducens: Intact Cranial Nerve VII- Facial: Intact Cranial Nerve VIII- Auditory: Intact Cranial Nerve IX- Glossopharyngeal: Intact Cranial Nerve X- Vagus: Intact Cranial Nerve XI- Accessory: Intact Cranial Nerve XII- Hypoglossal: Intact Results Labs: Abnormal Lab Results - Last 24 Hours (Table) 09/25/22 09/25/22 Range/Units 03:12 03:12 Urine Protein 1+ H (Negative) Calcium Oxalate Crystal Rare H (None) /hpf Urine Mucus Few H (None) /hpf Ur Barbiturates Screen Detected H (NotDetected) U Benzodiazepines Scrn Detected H (NotDetected) Assessment and Plan Assessment: Acute psychosis with homicidal ideation toward his mother. Major depressive disorder and Borderline personality guarded History of seizure disorder GERD No prior history of smoking DVT prophylaxis daily ambulation Plan: Patient will be continued is antiplatelet medications including Lamictal, Zonegran and Tegretol. Continue with seizure precautions. Patient will be continued on current psychiatric management and plan. Follow-up CBC and BMP and further recommendations based on clinical course. Thank you for your consult. Time with Patient: Greater than 30
[2022-09-26 08:24] LABS: Basophils % (A) 1 %; Eosinophils # (A) 0.2 k/uL (0-0.7); Eosinophils % (A) 4 %; HCT 45.7 % (39.0-53.0); HGB 15.3 gm/dL (13.0-17.5); Lymphocytes # (A) 2.6 k/uL (1.0-4.8); Lymphocytes % (A) 44 %; MCH 32.3 pg (25.0-35.0); MCHC 33.5 g/dL (31.0-37.0); MCV 96.5 fL (80.0-100.0); Mean Platelet Volume 7.2; Monocytes # (A) 0.3 k/uL (0-1.0); Monocytes % (A) 6 %; Neutrophils # (A) 2.6 k/uL (1.3-7.7); Neutrophils % (A) 44 %; Platelet Count 164 k/uL (150-450); RBC 4.74 m/uL (4.30-5.90); RDW 12.4 % (11.5-15.5)
[2022-09-26 08:44] LABS: ALT 15 U/L (4-49); AST 22 U/L (17-59); African American GFR (CKD) >90 (>60 ml/min/1.73 sqM); Albumin 4.7 g/dL (3.5-5.0); Alkaline Phosphatase 98 U/L (38-126); Anion Gap 10 mmol/L; Blood Urea Nitrogen 12 mg/dL (9-20); Calcium 9.1 mg/dL (8.4-10.2); Carbon Dioxide 21 mmol/L (22-30); Chloride 110 mmol/L (98-107); Glucose 89 mg/dL (74-99); Non-African American GFR(CKD) 90 (>60 ml/min/1.73 sqM); Potassium 4.2 mmol/L (3.5-5.1); Sodium 141 mmol/L (137-145); Total Bilirubin 0.5 mg/dL (0.2-1.3); Total Protein 7.9 g/dL (6.3-8.2)
[2022-09-26] MEDS: NICOTINE 14MG/24HR PATCH TRANSDERM SCH (08:54)
[2022-09-26] MEDS: carBAMazepine 200 MG TAB PO SCH ×2 (08:55→20:40)
[2022-09-26] MEDS: PANTOPRAZOLE 40 MG TABLET PO SCH ×2 (08:57→17:26)
[2022-09-26] MEDS: lamoTRIgine 100 MG TAB PO SCH ×2 (08:57→20:39)
[2022-09-26] MEDS: FLUoxetine HCL 20 MG CAP PO SCH (08:57)
[2022-09-26] MEDS: risperiDONE 0.5 MG TAB PO SCH (08:57)
--- NOTE | 2022-09-26 14:00 | P.PN ---
Progress Note - Text Progress Note Date: 09/26/22 Interval History: Patient was seen wandering the hallways and was directable and agreeable to speak with feature writer in the office. Currently, patient is not reporting any suicidal or homicidal ideation, intention, and/or plan. He is not reporting any auditory or visual hallucinations. He denies any paranoia or other delusions. He has been adherent with his medication and is not endorsing any significant side effects. He reports that is able to sleep well. He denies any issues or concerns regarding his seizure disorder. The patient stresses that he is feeling ready for discharge. He does understand that we do have a duty to warn that we are exercising. Mental Status Exam: General Appearance: Patient appears to be stated age is alert, directable, and cooperative. Behavior: Patient is calmly seated without any agitated behavior. Speech: Patient's speech is fluent and nonpressured. Mood/Affect: Mood is improving mildly, affect is congruent and constricted. Suicidality/Homicidality: Patient denies having any suicidal or homicidal ideation intent or plan. Perceptions: Patient denies any visual hallucinations and denies any auditory hallucinations Though content/process: There is no evidence of any delusional thought content and thought process is linear and goal-directed. Memory and concentration: AOX3, grossly intact for the purposes of this session Judgment and insight: Improving mildly Vital Signs Temp 97.5 F L 09/26/22 06:47 Pulse 68 09/26/22 06:47 Resp 14 09/26/22 06:47 BP 107/60 09/26/22 06:47 Pulse Ox 98 09/25/22 06:49 FiO2 Laboratory Results - Last 24 Hours 09/25/22 09/26/22 09/26/22 03:12 07:29 07:29 WBC 6.0 RBC 4.74 Hgb 15.3 Hct 45.7 MCV 96.5 MCH 32.3 MCHC 33.5 RDW 12.4 Plt Count 164 MPV 7.2 Neutrophils % 44 Lymphocytes % 44 Monocytes % 6 Eosinophils % 4 Basophils % 1 Neutrophils # 2.6 Lymphocytes # 2.6 Monocytes # 0.3 Eosinophils # 0.2 Basophils # 0.0 Sodium Potassium Chloride Carbon Dioxide Anion Gap BUN Creatinine Est GFR (CKD-EPI)AfAm Est GFR (CKD-EPI)NonAf Glucose Estimated Ave Glu mg/dL 97 Hemoglobin A1c 5.0 Calcium Total Bilirubin AST ALT Alkaline Phosphatase Total Protein Albumin TSH Urine Color Yellow Urine Appearance Clear Urine pH 6.0 Ur Specific [place] 1.032 Urine Protein 1+ H Urine Glucose (UA) Negative Urine Ketones Negative Urine Blood Negative Urine Nitrite Negative Urine Bilirubin Negative Urine Urobilinogen <2.0 Ur Leukocyte Esterase Negative Urine RBC 1 Urine WBC 2 Calcium Oxalate Crystal Rare H Urine Mucus Few H 09/26/22 07:29 WBC RBC Hgb Hct MCV MCH MCHC RDW Plt Count MPV Neutrophils % Lymphocytes % Monocytes % Eosinophils % Basophils % Neutrophils # Lymphocytes # Monocytes # Eosinophils # Basophils # Sodium 141 Potassium 4.2 Chloride 110 H Carbon Dioxide 21 L Anion Gap 10 BUN 12 Creatinine 1.08 Est GFR (CKD-EPI)AfAm >90 Est GFR (CKD-EPI)NonAf [address] Glu mg/dL Hemoglobin A1c Calcium 9.1 Total Bilirubin 0.5 AST 22 ALT 15 Alkaline Phosphatase 98 Total Protein 7.9 Albumin 4.7 TSH 0.962 Urine Color Urine Appearance Urine pH Ur Specific [place] Urine Protein Urine Glucose (UA) Urine Ketones Urine Blood Urine Nitrite Urine Bilirubin Urine Urobilinogen Ur Leukocyte Esterase Urine RBC Urine WBC Calcium Oxalate Crystal Urine Mucus Assessment Major depressive disorder, recurrent, severe, with psychotic features Borderline personality disorder Seizure disorder Plan: -Patient continues to meet criteria for inpatient psychiatric admission for symptom stabilization and safety. Patient has signed adult voluntary form and medication consent and was placed in patient's chart. -Medications: Increase Risperdal to 0.5 mg in the morning and 1 mg at bedtime for mood stabilization Continue Tegretol 200 mg by mouth twice a day and 400 mg by mouth at bedtime for seizure disorder Continue Lamictal 200 mg by mouth twice a day for seizure disorder/mood -When necessary Ativan and Haldol for agitation/aggression. -SW on board for discharge planning. Encouraged the patient to participate in milieu.
[2022-09-26] MEDS: ZONISAMIDE 100 MG CAP PO SCH (20:40)
[2022-09-26] MEDS: carBAMazepine 400 MG TAB.ER.12H PO SCH (20:40)
[2022-09-26] MEDS ORDERED: risperiDONE 1 MG TAB PO SCH (21:00)
[2022-09-27 06:53] VITALS: BP 102/63; PULSE 67; RESP 16; TEMP 98.2
[2022-09-27] MEDS: PANTOPRAZOLE 40 MG TABLET PO SCH (07:55)
[2022-09-27] MEDS: NICOTINE 14MG/24HR PATCH TRANSDERM SCH (07:56)
[2022-09-27] MEDS: carBAMazepine 200 MG TAB PO SCH (08:46)
[2022-09-27] MEDS: FLUoxetine HCL 20 MG CAP PO SCH (08:46)
[2022-09-27] MEDS: lamoTRIgine 100 MG TAB PO SCH (08:47)
[2022-09-27] MEDS ORDERED: risperiDONE 0.5 MG TAB PO SCH (09:00)
--- NOTE | 2022-09-27 12:09 | P.DS ---
Providers Date of admission: 09/25/22 05:08 Expected date of discharge: 09/27/22 Attending physician: Jorge Alberto Leary MD Consults: 09/25/22 06:42 Consult Physician Routine Consulting Provider: Ana Maria Samson Consult Reason/Comments: History and physical Do you want consulting provider notified?: Yes Primary care physician: Ana Maria Samson - Discharge Diagnosis(es) (1) Major depressive disorder, recurrent severe without psychotic features Status: Acute Priority: High (2) Borderline personality disorder Status: Chronic Priority: Medium (3) Seizure disorder Status: Chronic Priority: Medium Hospital Course: Admission HPI: Patient is a 32-year-old male with significant history of seizure disorder, depressive disorder, and borderline personality disorder who presents for hospital with a chief complaint of homicidal ideation. Patient presented to the hospital on 09/25/2022, brought in marriage department on his own volition with complaints of suicidal and homicidal ideation. The patient signed himself voluntarily on to the psychiatric unit. Upon evaluation psychiatric unit, the patient reports that he is feeling extremely homicidal towards his mother. He states that he is upset with his mother for how she was negligent in caring for his son/her grandson back in 2019. He reports that he attempted to file a restraining order because of how upset he was with his mother and her violation of his wishes to have her leave his family alone. The patient reports that he became very angry after receiving a [place] card from his mother addressed to his son. He states that his mother "put $40 a [place] card and said, 'just in case Judy does not show.' I am Judy. She shouldn't do that." The patient expresses he is very upset with her and he has tried to file a restraining order but because she is friends with all the judges, no restraining order could be filed. In regards to depressive symptoms, he reports no significant changes aside from low mood and sadness. He denies any change in his appetite or hygiene and grooming. He does report poor sleep. He denies any significant symptoms of zac or hypomania. He reports no mood lability, grandiosity, or racing thoughts. He denies any periods of excessive energy or increased goal directed activity. The patient does not report any significant history of psychosis. He denies any auditory or visual hallucinations. He reports no paranoia or other delusions. Patient has previous diagnosis of major depressive disorder and borderline personality disorder. He is currently prescribed a regimen of Lamictal, Tegretol, Prozac, and Vraylar. He was last hospitalized on a psychiatric unit in March 2022. He currently is open with the [facility]. He denies any prior attempts at suicide. Hospital course: Upon admission to the unit patient was initially presenting as irritable and almost childlike. Patient was however directable and agreeable to commence treatment. Patient got along well with other patients on the unit and followed unit protocol. Patient was compliant with the medications and denied any side effects throughout hospital course. Patient was started on Risperdal for mood stabilization in lieu of vraylar which is not on hospital formulary. He was otherwise continued on his medications of Tegretol and Lamictal for seizure disorder which may also help address mood. Patient spoke of his stressors and engaged in therapy both group and individual. Patient was also seen by medical team for history and physical exam. Over the course of hospitalization, the patient displayed gradual improvement in regards to his target symptoms of homicidal ideation and irritability. He became more future and goal oriented and understood that we needed to file a duty to warn. Refuses to warn was performed to inform the patient's mother that he did verbalize homicidal ideation towards her. However, on the day of discharge, the patient is not endorsing any suicidal or homicidal ideation, intention, and/or plan. He is not reporting any auditory or visual hallucinations. He is not reporting any paranoia or other delusions. The patient has been adherent with his medication and is not endorsing any significant side effects. He denies any access to firearms or other weapons. He understands that if he was to act on any homicidal urges or be violent, he places himself at legal risk and would set a poor example for his child. The patient does not have a significant history of substance abuse however was counseled at great length on abstaining from all substances including alcohol, tobacco, marijuana, and illicit drug use. Mental status exam: General Appearance: Patient appears to be stated age is alert, pleasant, and cooperative. Patient is in no acute distress and has fair hygiene and grooming Behavior: Patient is calmly seated without any agitated behavior. Speech: Patient's speech is fluent and nonpressured. Mood/Affect: Patient reports their mood is "doing okay", affect is congruent and euthymic. Suicidality/Homicidality: Patient denies having any suicidal or homicidal ideation intent or plan. Perceptions: Patient denies any auditory or visual hallucinations. Though content/process: There is no evidence of any delusional thought content and thought process is linear and goal-directed. Memory and concentration: AOX3, grossly intact for the purposes of this session. Can spell "WORLD" backwards correctly. Judgment and insight: Improved with guarded prognosis Impression: Major depressive disorder, recurrent, severe, with psychotic features Borderline personality disorder Seizure disorder Plan: -Continue with discharge today as patient has improved and stabilized psychiatrically and is not currently an imminent threat to himself and/or others. Patient remain at chronically elevated risk due to his poor ego integrity and lack of coping skills -Continue medications: Prozac 40 mg daily for depression/anxiety Vraylar 1.5 mg at bedtime for mood stabilization -Patient was counseled on the need for medication compliance and appropriate follow-up at mental health and also primary care for medical issues. Patient verbalized understanding and agreed. -Social work to arrange for and conduct family meeting to ensure safety upon discharge and answer any questions/concerns. Social work also to arrange for patients [facility] along with follow up with primary care provider. -Patient counseled on abstaining from recreational drugs and alcohol. Was informed/educated on the adverse effects on their physical and mental health. Patient verbally agreed and understood. -Patient was instructed to return to the hospital or seek immediate medical care if their psychiatric or medical symptoms do worsen or reoccur. -Psychoeducation and supportive therapy provided to patient. Risks and benefits of pharmacological treatment versus the risks and benefits of nontreatment weight and discussed. Informed consent discussion held. Common side effects of psychotropics discussed such as, but not limited to headache, GI disturbance, sexual dysfunction, movement disorders, sedation, and orthostatic hypotension. Life threatening and blackbox warnings of prescribed medications also discussed. Potential risks of operating a vehicle or heavy machinery discussed with patient at length. Advised on importance of compliance and a reliable and responsible manner. Patient advised to review FDA consumer labeling of all medications prior to taking. Patient verbalized understanding of potential risks, and agrees with current treatment plan. Patient advised to medically contact physician/emergency personnel if any acute changes in condition occur. Vital Signs Temp 98.2 F 09/27/22 06:24 Pulse 67 09/27/22 06:24 Resp 16 09/27/22 06:24 BP 102/63 09/27/22 06:24 Pulse Ox 98 09/25/22 06:49 FiO2 Laboratory Results WBC 6.0 k/uL (3.8-10.6) 09/26/22 07: RBC 4.74 m/uL (4.30-5.90) 09/26/22 07: Hgb 15.3 gm/dL (13.0-17.5) 09/26/22 07: Hct 45.7 % (39.0-53.0) 09/26/22 07: MCV 96.5 fL (80.0-100.0) 09/26/22 07: MCH 32.3 pg (25.0-35.0) 09/26/22 07: MCHC 33.5 g/dL (31.0-37.0) 09/26/22 07: RDW 12.4 % (11.5-15.5) 09/26/22 07: Plt Count 164 k/uL (150-450) 09/26/22 07: MPV 7.2 09/26/22 07: Neutrophils % 44 % 09/26/22 07:29 Lymphocytes % 44 % 09/26/22 07: Monocytes % 6 % 09/26/22 07: Eosinophils % 4 % 09/26/22 07: Basophils % 1 % 09/26/22 07: Neutrophils # 2.6 k/uL (1.3-7.7) 09/26/22 07: Lymphocytes # 2.6 k/uL (1.0-4.8) 09/26/22 07: Monocytes # 0.3 k/uL (0-1.0) 09/26/22 07: Eosinophils # 0.2 k/uL (0-0.7) 09/26/22 07: Basophils # 0.0 k/uL (0-0.2) 09/26/22 07: Sodium 141 mmol/L (137-145) 09/26/22 07: Potassium 4.2 mmol/L (3.5-5.1) 09/26/22 07: Chloride 110 mmol/L (98-107) H 09/26/22 07: Carbon Dioxide 21 mmol/L (22-30) L 09/26/22 07: Anion Gap 10 mmol/L 09/26/22 07: BUN 12 mg/dL (9-20) 09/26/22 07: Creatinine 1.08 mg/dL (0.66-1.25) 09/26/22 07:29 Est GFR (CKD-EPI)AfAm >90 (>60 ml/min/1.73 sqM) 09/26/22 07: Est GFR (CKD-EPI)NonAf 90 (>60 ml/min/1.73 sqM) 09/26/22 07: Glucose 89 mg/dL (74-99) 09/26/22 07: Estimated Ave Glu mg/dL 97 09/26/22 07: Hemoglobin A1c 5.0 % (0.0-6.0) 09/26/22 07: Calcium 9.1 mg/dL (8.4-10.2) 09/26/22 07: Total Bilirubin 0.5 mg/dL (0.2-1.3) 09/26/22 07: AST 22 U/L (17-59) 09/26/22 07: ALT 15 U/L (4-49) 09/26/22 07: Alkaline Phosphatase 98 U/L (38-126) 09/26/22 07: Total Protein 7.9 g/dL (6.3-8.2) 09/26/22 07: Albumin 4.7 g/dL (3.5-5.0) 09/26/22 07: TSH 0.962 mIU/L (0.465-4.680) 09/26/22 07:29 Urine Color Yellow 09/25/22 03:12 Urine Appearance Clear (Clear) 09/25/22 03:12 Urine pH 6.0 (5.0-8.0) 09/25/22 03:12 Ur Specific [place] 1.032 (1.001-1.035) 09/25/22 03:12 Urine Protein 1+ (Negative) H 09/25/22 03:12 Urine Glucose (UA) Negative (Negative) 09/25/22 03:12 Urine Ketones Negative (Negative) 09/25/22 03:12 Urine Blood Negative (Negative) 09/25/22 03:12 Urine Nitrite Negative (Negative) 09/25/22 03:12 Urine Bilirubin Negative (Negative) 09/25/22 03:12 Urine Urobilinogen <2.0 mg/dL (<2.0) 09/25/22 03:12 Ur Leukocyte Esterase Negative (Negative) 09/25/22 03:12 Urine RBC 1 /hpf (0-5) 09/25/22 03:12 Urine WBC 2 /hpf (0-5) 09/25/22 03:12 Calcium Oxalate Crystal Rare /hpf (None) H 09/25/22 03:12 Urine Mucus Few /hpf (None) H 09/25/22 03:12 Urine Opiates Screen Not Detected (NotDetected) 09/25/22 03:12 Ur Oxycodone Screen Not Detected (NotDetected) 09/25/22 03:12 Urine Methadone Screen Not Detected (NotDetected) 09/25/22 03:12 Ur Propoxyphene Screen Not Detected (NotDetected) 09/25/22 03:12 Ur Barbiturates Screen Detected (NotDetected) H 09/25/22 03:12 U Tricyclic Antidepress Not Detected (NotDetected) 09/25/22 03:12 Ur Phencyclidine Scrn Not Detected (NotDetected) 09/25/22 03:12 Ur Amphetamines Screen Not Detected (NotDetected) 09/25/22 03:12 U Methamphetamines Scrn Not Detected (NotDetected) 09/25/22 03:12 U Benzodiazepines Scrn Detected (NotDetected) H 09/25/22 03:12 Urine Cocaine Screen Not Detected (NotDetected) 09/25/22 03:12 U Marijuana (THC) Screen Not Detected (NotDetected) 09/25/22 03:12 Coronavirus (PCR) Not Detected (Not Detectd) 09/25/22 02:20 Allergies Allergy/AdvReac Type Severity Reaction Status Date / Time No Known Allergies Allergy Verified 09/25/22 00:51 Patient Condition at Discharge: Stable Plan - Discharge Summary New Discharge Prescriptions: New FLUoxetine HCL [PROzac] 40 mg PO DAILY 30 Days cap Cariprazine HCl [Vraylar] 1.5 mg PO HS 15 Days capsule Continue carBAMazepine [TEGretol XR] 400 mg PO HS lamoTRIgine [LaMICtal] 200 mg PO BID #0 carBAMazepine [TEGretol] 200 mg PO BID Cyclobenzaprine HCl 10 mg PO Q8H PRN PRN Reason: Muscle Spasm Zonisamide [Zonegran] 200 mg PO HS PHENobarbitaL [Luminal] 64.8 mg PO DAILY Cannabidiol (Cbd) [Epidiolex] 4 ml PO Discontinued FLUoxetine HCL [PROzac] 40 mg PO DAILY 30 Days cap Discharge Medication List carBAMazepine [TEGretol XR] 400 mg PO HS 10/19/18 [History] lamoTRIgine [LaMICtal] 200 mg PO BID #0 06/28/20 [Rx] carBAMazepine [TEGretol] 200 mg PO BID 10/10/20 [History] Cyclobenzaprine HCl 10 mg PO Q8H PRN 10/03/21 [History] PHENobarbitaL [Luminal] 64.8 mg PO DAILY 08/28/22 [History] Zonisamide [Zonegran] 200 mg PO HS 08/28/22 [History] Cannabidiol (Cbd) [Epidiolex] 4 ml PO 08/30/22 [History] Cariprazine HCl [Vraylar] 1.5 mg PO HS 15 Days capsule 09/27/22 [Rx] FLUoxetine HCL [PROzac] 40 mg PO DAILY 30 Days cap 09/27/22 [Rx] Follow up Appointment(s)/Referral(s): [facility] - [facility]01/22 2:30 am (follow up appt with Fidelina on 10/01/22 at 2:30pm) Ana Maria Samson MD [Primary Care Provider] - 1-2 days Patient Instructions/Handouts: Depression (DC), Borderline Personality Disorder (GEN), Psychotic Disorder (DC) Activity/Diet/Wound Care/Special Instructions: Avoid the use of street drugs and alcohol. Take all prescriptions as prescribed. When you are in need of refills on your medications, please contact your medical provider and/or outpatient psychiatrist to have this done. Please go to scheduled outpatient appointment for aftercare treatment. If symptoms return or become worse, call the crisis line at and/or go to the nearest emergency room for evaluation Discharge Disposition: HOME SELF-CARE
== END 2022-09-27 11:44 | disposition home or self-care (01) | DRG 885 ==
LOC: EC 23:08 → 3MHU 09-25 05:08
PROVIDERS: ADMIT Psychiatry & Neurology Psychiatry; ATTEND Psychiatry & Neurology Psychiatry
DX: F33.3 Major depressive disorder, recurrent, severe with psychotic symptoms (principal); R45.851 Suicidal ideations; F41.9 Anxiety disorder, unspecified; F60.3 Borderline personality disorder; G40.409 Other generalized epilepsy and epileptic syndromes, not intractable, without status epilepticus; R45.850 Homicidal ideations; Z79.899 Other long term (current) drug therapy; K21.9 Gastro-esophageal reflux disease without esophagitis; G43.909 Migraine, unspecified, not intractable, without status migrainosus; Z20.822 Contact with and (suspected) exposure to COVID-19
CPT/HCPCS: 80053; 80306; 81001; 82075; 83036; 84443; 85025; 87635

== ENCOUNTER 2022-12-10 14:00 | Inpatient (IN) | payer MEDICARE, MEDICAID ==
--- NOTE | 2022-12-10 14:28 | ED ---
General Adult HPI - General Source: patient, police, RN notes reviewed Mode of arrival: ambulatory Limitations: no limitations <Harshad Carey - Last Filed: 12/10/22 14:27> - General Source: patient, RN notes reviewed Mode of arrival: ambulatory Limitations: no limitations <Bello Ivey - Last Filed: 12/10/22 19:49> - General Chief complaint: Psychiatric Symptoms Stated complaint: Suicidal ideation Time Seen by Provider: 12/10/22 14:27 - History of Present Illness Initial comments: 32-year-old presented emergency from with police for psychiatric evaluation. Patient states she is depressed, suicidal. He had an appointment with his in which she told him she didn't care what happened to him. Patient was as counselor's office earlier. (Harshad Carey) Patient is a pleasant 32-year-old male presenting to the emergency department for mental health evaluation. Patient omits to being depressed for a while. Patient states sometimes he is suicidal thoughts that did worsen today. Patient does have plan of jumping in river. No homicidal thoughts. Patient is not sleeping well. Patient is taking his medications. No new physical complaints. Rare alcohol use. No street drug use. (Bello Ivey) - Related Data Home Medications Medication Instructions Recorded Confirmed carBAMazepine [TEGretol XR] 400 mg PO HS 10/19/18 12/10/22 carBAMazepine [TEGretol] 200 mg PO BID 10/10/20 12/10/22 Cyclobenzaprine HCl 10 mg PO Q8H PRN 10/03/21 12/10/22 PHENobarbitaL [Luminal] 129.6 mg PO HS 08/28/22 12/10/22 Zonisamide [Zonegran] 400 mg PO HS 08/28/22 12/10/22 Cariprazine HCl [Vraylar] 3 mg PO HS 12/10/22 12/10/22 Diclofenac Sodium Gel [Voltaren 2 gm TOPICAL QID PRN 12/10/22 12/10/22 Gel] FLUoxetine HCL 40 mg PO DAILY 12/10/22 12/10/22 Ibuprofen [Motrin] 800 mg PO Q8H PRN 12/10/22 12/10/22 LORazepam [Ativan] 0.5 mg PO BID PRN 12/10/22 12/10/22 Midazolam [Nayzilam] 1 spray NASAL ONCE PRN 12/10/22 12/10/22 Omeprazole [PriLOSEC] 20 mg PO DAILY 12/10/22 12/10/22 Previous Rx's Medication Instructions Recorded lamoTRIgine [LaMICtal] 200 mg PO BID #0 06/28/20 Allergies Allergy/AdvReac Type Severity Reaction Status Date / Time No Known Allergies Allergy Verified 12/10/22 18:02 Review of Systems ROS Other: All systems not noted in ROS Statement are negative. <Harshad Carey - Last Filed: 12/10/22 14:27> ROS Other: All systems not noted in ROS Statement are negative. Constitutional: Denies: fever Eyes: Denies: eye pain ENT: Denies: ear pain Respiratory: Denies: cough Cardiovascular: Denies: chest pain Endocrine: Denies: fatigue Gastrointestinal: Denies: abdominal pain Genitourinary: Denies: urgency Musculoskeletal: Denies: back pain Skin: Denies: rash Psychiatric: Reports: depression, suicidal thoughts <Bello Ivey - Last Filed: 12/10/22 19:49> ROS Statement: Those systems with pertinent positive or pertinent negative responses have been documented in the HPI. Past Medical History Past Medical History: GERD/Reflux, Seizure Disorder, Skin Disorder, Thyroid Disorder Additional Past Medical History / Comment(s): has history of epilepsy, hx grand mal seizures since childhood, migraines, acne, Last seizure was 07/28/22 History of Any Multi-Drug Resistant Organisms: None Reported, Unobtainable Past Surgical History: Adenoidectomy, Appendectomy, Cholecystectomy, Tonsillectomy Additional Past Surgical History / Comment(s): oral surgery. I & D CYST ON BACK 08/19/22. MULTIPLE STITCHES Past Anesthesia/Blood Transfusion Reactions: Previous Problems w/ Anesthesia Additional Past Anesthesia/Blood Transfusion Reaction / Comment(s): SLOW TO WAKE FROM ANESTHESIA" Past Psychological History: Anxiety, Depression Smoking Status: Never smoker Past Alcohol Use History: Occasional Past Drug Use History: None Reported - Past Family History Mother Family Medical History: Cancer Additional Family Medical History / Comment(s): breast cancer <Harshad Carey - Last Filed: 12/10/22 14:27> General Exam Limitations: no limitations <Harshad Carey - Last Filed: 12/10/22 14:27> Limitations: no limitations General appearance: alert, in no apparent distress Head exam: Present: normocephalic Eye exam: Present: normal appearance Neck exam: Present: normal inspection Respiratory exam: Present: normal lung sounds bilaterally Cardiovascular Exam: Present: regular rate, normal rhythm GI/Abdominal exam: Present: soft. Absent: tenderness Extremities exam: Present: normal inspection Neurological exam: Present: alert Psychiatric exam: Present: depressed, flat affect Skin exam: Present: normal color <Bello Ivey - Last Filed: 12/10/22 19:49> - General Exam Comments Initial Comments: Visual Physical Exam Vital signs reviewed General: Well-appearing, nontoxic, no acute distress. Head: Normocephalic, atraumatic Eyes: PERRLA, EOMI ENT: Airway patent Chest: Nonlabored breathing Skin: No visual rash, normal skin tone Neuro: Alert and oriented 3 Musculoskeletal: No gross abnormalities (Harshad Carey) Course Vital Signs 12/10/22 14:07 Temperature 97.7 F Pulse Rate 76 Respiratory 18 Rate Blood Pressure 121/82 O2 Sat by Pulse 99 Oximetry Medical Decision Making <Bello Ivey - Last Filed: 12/10/22 19:49> - Medical Decision Making Was pt. sent in by a medical professional or institution (Dr. PA, [employer] DEVELOPER, urgent care, hospital, or alf...) When possible be specific @ -No Did you speak to anyone other than the patient for history (EMS, parent, family, police, friend...)? What history was obtained from this source @ -No Did you review nursing and triage notes (agree or disagree)? Why? @ -I reviewed and agree with nursing and triage notes Were old charts reviewed (outside hosp., previous admission, EMS record, old EKG, old radiological studies, urgent care reports/EKG's, alf records)? Report findings @ -No old charts were reviewed Differential Diagnosis (chest pain, altered mental status, abdominal pain women, abdominal pain men, vaginal bleeding, weakness, fever, dyspnea, syncope, headache, dizziness, GI bleed, back pain, seizure, CVA, palpatations, mental health)? @ -not applicable EKG interpreted by me (3pts min.). @ -As above X-rays interpreted by me (1pt min.). @ -None done CT interpreted by me (1pt min.). @ -None done U/S interpreted by me (1pt. min.). @ -None done What testing was considered but not performed or refused? (CT, X-rays, U/S, labs)? Why? @ -None What meds were considered but not given or refused? Why? @ -None Did you discuss the management of the patient with other professionals (professionals i.e. , PA, [employer] DEVELOPER, lab, RT, psych nurse, family welfare social work professor, family lawyer, teacher, alumni relations officer, senior case manager)? Give summary @ -Case was discussed with psychiatric nurse who did evaluate patient and will admit the patient. Was smoking cessation discussed for >3mins.? @ -No Was critical care preformed (if so, how long)? @ -No Were there social determinants of health that impacted care today? How? (Homelessness, low income, unemployed, alcoholism, drug addiction, transportation, low edu. Level, literacy, decrease access to med. care, senior care, rehab)? @ -No Was there de-escalation of care discussed even if they declined (Discuss DNR or withdrawal of care, Hospice)? DNR status @ -No What co-morbidities impacted this encounter? (DM, HTN, Smoking, COPD, CAD, Ca ncer, CVA, ARF, Chemo, Hep., AIDS, mental health diagnosis, sleep apnea, morbid obesity)? @ -None Was patient admitted / discharged? Hospital course, mention meds given and route, prescriptions, significant lab abnormalities, going to OR and other pertinent info. @ -Patient will be admitted for psychiatric care Undiagnosed new problem with uncertain prognosis? @ -No Drug Therapy requiring intensive monitoring for toxicity (Heparin, Nitro, Insulin, Cardizem)? @ -No Were any procedures done? @ -No Diagnosis/symptom? @ -Depression, suicidal ideation, Acute, or Chronic, or Acute on Chronic? @ -Acute on chronic, acute on chronic Uncomplicated (without systemic symptoms) or Complicated (systemic symptoms)? @ -default Side effects of treatment? @ -No Exacerbation, Progression, or Severe Exacerbation? @ -No Poses a threat to life or bodily function? How? (Chest pain, [place], [place], pneumonia, PE, COPD, DKA, ARF, appy, cholecystitis, CVA, Diverticulitis, Homicidal, Suicidal, threat to staff... and all critical care pts) @ -No (Bello Ivey) - Lab Data Lab Results 12/10/22 Range/Units 16:41 Urine Opiates Screen Not Detected (NotDetected) Ur Oxycodone Screen Not Detected (NotDetected) Urine Methadone Screen Not Detected (NotDetected) Ur Propoxyphene Screen Not Detected (NotDetected) Ur Barbiturates Screen Detected H (NotDetected) U Tricyclic Antidepress Not Detected (NotDetected) Ur Phencyclidine Scrn Not Detected (NotDetected) Ur Amphetamines Screen Not Detected (NotDetected) U Methamphetamines Scrn Not Detected (NotDetected) U Benzodiazepines Scrn Detected H (NotDetected) Urine Cocaine Screen Not Detected (NotDetected) U Marijuana (THC) Screen Not Detected (NotDetected) Disposition <Harshad Carey - Last Filed: 12/10/22 14:27> Is patient prescribed a controlled substance at d/c from ED?: No Time of Disposition: 19:49 <Bello Ivey - Last Filed: 12/10/22 19:49> Clinical Impression: Depression, Suicidal ideation Disposition: TRANSFER TO PSYCH HOSP/UNIT Referrals: Ana Maria Samson MD [Primary Care Provider] - 1-2 days
[2022-12-10 16:55] LABS: Amphetamine Screen,Urine Not Detected (NotDetected); Barbiturate Screen,Urine Detected (NotDetected); Benzodiazepines Screen,Urine Detected (NotDetected); Cocaine Screen,Urine Not Detected (NotDetected); Methadone Screen, Urine Not Detected (NotDetected); Opiate Screen,Urine Not Detected (NotDetected); Oxycodone Screen, Urine Not Detected (NotDetected); Phencyclidine Screen,Urine Not Detected (NotDetected); Tricyclic Antidepressant,Urine Not Detected (NotDetected); Urn Cannabinoid Scrn Not Detected (NotDetected)
[2022-12-10] MEDS ORDERED: CYCLOBENZAPRINE 10 MG TAB PO PRN (21:53)
[2022-12-10] MEDS ORDERED: IBUPROFEN 800 MG TAB PO PRN (21:53)
[2022-12-10] MEDS ORDERED: NON FORMULARY DRUG (Midazolam [Nayzilam] 5 MG/0.1 ML Each) EA NOSTRIL PRN (21:53)
[2022-12-10] MEDS ORDERED: MAGNESIUM HYDROXIDE 2,400 MG/10 ML CUP PO PRN (21:55)
[2022-12-10] MEDS ORDERED: LORazepam 1 MG TAB PO PRN (21:55)
[2022-12-10] MEDS ORDERED: MAG HYDROX/AL HYDROX/SIMETH 30 ML CUP PO PRN (21:55)
[2022-12-10] MEDS ORDERED: HALOPERIDOL LACTATE 5 MG/ML 1 ML VIAL IM PRN (21:55)
[2022-12-10] MEDS ORDERED: ACETAMINOPHEN TAB 325 MG TAB PO PRN (21:55)
[2022-12-10] MEDS ORDERED: LORazepam 2 MG/ML INJ IM PRN (21:57)
[2022-12-10] MEDS ORDERED: haloperidoL 5 MG TAB PO PRN (21:57)
[2022-12-10] MEDS: lamoTRIgine 100 MG TAB PO SCH (22:28)
[2022-12-10] MEDS: carBAMazepine 200 MG TAB PO SCH (22:29)
[2022-12-10] MEDS: carBAMazepine 400 MG TAB.ER.12H PO SCH (22:29)
[2022-12-10] MEDS: ZONISAMIDE 100 MG CAP PO SCH (22:29)
[2022-12-11] MEDS: PANTOPRAZOLE 40 MG TABLET PO SCH (08:03)
[2022-12-11] MEDS: lamoTRIgine 100 MG TAB PO SCH ×2 (08:04→20:09)
[2022-12-11] MEDS: carBAMazepine 200 MG TAB PO SCH ×2 (08:04→20:09)
[2022-12-11 08:55] VITALS: BMI 26.4
[2022-12-11] MEDS ORDERED: FLUoxetine HCL 20 MG CAP PO SCH (09:00)
[2022-12-11 09:50] LABS: Basophils # (A) 0.1 k/uL (0-0.2); Basophils % (A) 1 %; Eosinophils # (A) 0.5 k/uL (0-0.7); Eosinophils % (A) 10 %; HCT 45.1 % (39.0-53.0); HGB 15.5 gm/dL (13.0-17.5); Lymphocytes # (A) 1.9 k/uL (1.0-4.8); Lymphocytes % (A) 33 %; MCH 32.6 pg (25.0-35.0); MCHC 34.5 g/dL (31.0-37.0); MCV 94.7 fL (80.0-100.0); Monocytes # (A) 0.2 k/uL (0-1.0); Monocytes % (A) 4 %; Neutrophils # (A) 2.9 k/uL (1.3-7.7); Neutrophils % (A) 50 %; Platelet Count 182 k/uL (150-450); RBC 4.76 m/uL (4.30-5.90); RDW 13.1 % (11.5-15.5); WBC 5.7 k/uL (3.8-10.6)
[2022-12-11 09:54] LABS: ALT 18 U/L (4-49); AST 21 U/L (17-59); African American GFR (CKD) >90 (>60 ml/min/1.73 sqM); Albumin 4.8 g/dL (3.5-5.0); Alkaline Phosphatase 103 U/L (38-126); Anion Gap 11 mmol/L; Blood Urea Nitrogen 12 mg/dL (9-20); Calcium 9.3 mg/dL (8.4-10.2); Carbon Dioxide 19 mmol/L (22-30); Chloride 110 mmol/L (98-107); Glucose 103 mg/dL (74-99); Non-African American GFR(CKD) >90 (>60 ml/min/1.73 sqM); Potassium 4.2 mmol/L (3.5-5.1); Sodium 140 mmol/L (137-145); Total Bilirubin 0.5 mg/dL (0.2-1.3)
[2022-12-11] MEDS ORDERED: LIDOCAINE 2% GEL 30 ML TUBE TOPICAL ONE (10:15)
--- NOTE | 2022-12-11 11:50 | P.HP ---
Psychiatric H&P - . H&P Date: 12/11/22 History & Physical: Allergies Allergy/AdvReac Type Severity Reaction Status Date / Time No Known Allergies Allergy Verified 12/10/22 18:02 Vital Signs Temp 97.3 F L 12/11/22 06:42 Pulse 70 12/11/22 06:42 Resp 18 12/11/22 06:42 BP 118/78 12/11/22 06:42 Pulse Ox 99 12/11/22 06:42 FiO2 Intake & Output 12/10/22 12/11/22 12/11/22 18:59 06:59 18:59 Weight 86.183 kg 86 kg 86 kg Laboratory Last Values WBC 5.7 k/uL (3.8-10.6) 12/11/22 09:11 RBC 4.76 m/uL (4.30-5.90) 12/11/22 09:11 Hgb 15.5 gm/dL (13.0-17.5) 12/11/22 09:11 Hct 45.1 % (39.0-53.0) 12/11/22 09:11 MCV 94.7 fL (80.0-100.0) 12/11/22 09:11 MCH 32.6 pg (25.0-35.0) 12/11/22 09:11 MCHC 34.5 g/dL (31.0-37.0) 12/11/22 09:11 RDW 13.1 % (11.5-15.5) 12/11/22 09:11 Plt Count 182 k/uL (150-450) 12/11/22 09:11 MPV 7.0 12/11/22 09:11 Neutrophils % 50 % 12/11/22 09:11 Lymphocytes % 33 % 12/11/22 09:11 Monocytes % 4 % 12/11/22 09:11 Eosinophils % 10 % 12/11/22 09:11 Basophils % 1 % 12/11/22 09:11 Neutrophils # 2.9 k/uL (1.3-7.7) 12/11/22 09:11 Lymphocytes # 1.9 k/uL (1.0-4.8) 12/11/22 09:11 Monocytes # 0.2 k/uL (0-1.0) 12/11/22 09:11 Eosinophils # 0.5 k/uL (0-0.7) 12/11/22 09:11 Basophils # 0.1 k/uL (0-0.2) 12/11/22 09:11 Sodium 140 mmol/L (137-145) 12/11/22 09:11 Potassium 4.2 mmol/L (3.5-5.1) 12/11/22 09:11 Chloride 110 mmol/L (98-107) H 12/11/22 09:11 Carbon Dioxide 19 mmol/L (22-30) L 12/11/22 09:11 Anion Gap 11 mmol/L 12/11/22 09:11 BUN 12 mg/dL (9-20) 12/11/22 09:11 Creatinine 0.99 mg/dL (0.66-1.25) 12/11/22 09:11 Est GFR (CKD-EPI)AfAm >90 (>60 ml/min/1.73 sqM) 12/11/22 09:11 Est GFR (CKD-EPI)NonAf >90 (>60 ml/min/1.73 sqM) 12/11/22 09:11 Glucose 103 mg/dL (74-99) H 12/11/22 09:11 Calcium 9.3 mg/dL (8.4-10.2) 12/11/22 09:11 Total Bilirubin 0.5 mg/dL (0.2-1.3) 12/11/22 09:11 AST 21 U/L (17-59) 12/11/22 09:11 ALT 18 U/L (4-49) 12/11/22 09:11 Alkaline Phosphatase 103 U/L (38-126) 12/11/22 09:11 Total Protein 8.0 g/dL (6.3-8.2) 12/11/22 09:11 Albumin 4.8 g/dL (3.5-5.0) 12/11/22 09:11 TSH 1.800 mIU/L (0.465-4.680) 12/11/22 09:11 Urine Opiates Screen Not Detected (NotDetected) 12/10/22 16:41 Ur Oxycodone Screen Not Detected (NotDetected) 12/10/22 16:41 Urine Methadone Screen Not Detected (NotDetected) 12/10/22 16:41 Ur Propoxyphene Screen Not Detected (NotDetected) 12/10/22 16:41 Ur Barbiturates Screen Detected (NotDetected) H 12/10/22 16:41 U Tricyclic Antidepress Not Detected (NotDetected) 12/10/22 16:41 Ur Phencyclidine Scrn Not Detected (NotDetected) 12/10/22 16:41 Ur Amphetamines Screen Not Detected (NotDetected) 12/10/22 16:41 U Methamphetamines Scrn Not Detected (NotDetected) 12/10/22 16:41 U Benzodiazepines Scrn Detected (NotDetected) H 12/10/22 16:41 Urine Cocaine Screen Not Detected (NotDetected) 12/10/22 16:41 U Marijuana (THC) Screen Not Detected (NotDetected) 12/10/22 16:41 Coronavirus (PCR) Not Detected (Not Detectd) 12/10/22 19:50 12/11/22 11:50 IDENTIFYING DATA: Patient is a 32-year-old male with significant history of seizure disorder, depressive disorder, and borderline personality disorder who presents for hospital with a chief complaint of homicidal ideation. HPI: Patient presented to the hospital on 12/10/2022, brought into the hospital for suicidal ideation. The patient reports that he was attending counseling with his during which at that appointment, she mentioned that she is considering divorce. A point of contention between him and his is his excessive playing of video games which he states is for 9.5 hours per day. The patient ended up walking out of the counseling appointment and by the river. He then endorsed suicidal ideation. The patient expressed that he did not want to go to his mother's. If he is unable to go to his mother's or return back to his , the patient states that he has no other option but to kill himself. The patient is not endorsing any significant symptoms of depression aside from low energy, hopelessness, and suicidal ideation. He is not reporting any changes in appetite and grooming. He denies any previous attempts at suicide. He is not endorsing any significant symptoms of bipolar disorder. He denies any symptoms of zac or hypomania. He denies any racing thoughts, grandiosity, or increased goal-directed activity. He reports no auditory or visual hallucinations. He denies any paranoia or other delusions. PAST PSYCHIATRIC HISTORY: Patient has previous diagnosis of major depressive disorder and borderline personality disorder. He is currently prescribed a regimen of Lamictal, Tegretol, Prozac, and Vraylar. He was last hospitalized on a psychiatric unit in August 2022. He currently is open with the [facility] counseling [place]. He denies any prior attempts at suicide. PMH: Past Medical History: GERD/Reflux, Seizure Disorder, Skin Disorder, Thyroid Disorder Additional Past Medical History / Comment(s): has history of epilepsy, hx grand mal seizures since childhood, migraines, acne, Last seizure was 07/28/22 History of Any Multi-Drug Resistant Organisms: None Reported, Unobtainable Past Surgical History: Adenoidectomy, Appendectomy, Cholecystectomy, Tonsillectomy Additional Past Surgical History / Comment(s): oral surgery. I & D CYST ON BACK 08/19/22. MULTIPLE STITCHES Past Anesthesia/Blood Transfusion Reactions: Previous Problems w/ Anesthesia Additional Past Anesthesia/Blood Transfusion Reaction / Comment(s): SLOW TO WAKE FROM ANESTHESIA" Past Psychological History: Anxiety, Depression Smoking Status: Never smoker Past Alcohol Use History: Occasional Past Drug Use History: None Reported ALLERGIES: NO KNOWN DRUG ALLERGIES CHEMICAL DEPENDENCY HISTORY: The patient reports very rare alcohol use. He denies any tobacco, marijuana, or illicit drug use. FAMILY PSYCHIATRIC/SUBSTANCE USE HISTORY: No reported psychiatric history SOCIAL HISTORY: Patient was born and raised in [place], [place]. He is currently and has a [id number] son. He has an associates degree. He is currently on disability. MENTAL STATUS EXAM: General Appearance: Patient appears to be stated age is alert, directable, and attempts to cooperate. Patient appears to have fair hygiene and grooming. Behavior: Patient is seated without any agitated behavior. Psychomotor activity appears normal Speech: Patient's speech is fluent and nonpressured. Mildly dysarthric secondary to lack of dentition. Mood/Affect: Patient reports their mood is depressed, affect is irritable. Suicidality/Homicidality: Patient denies having any homicidal ideation intent or plan. Patient endorses suicidal ideation. Perceptions: Patient denies any visual hallucinations and denies any auditory hallucinations Though content/process: There is no evidence of any delusional thought content and thought process is linear and goal-directed. Memory and concentration: AOX3, grossly intact for the purposes of this session. Can spell "WORLD" backwards Judgment and insight: poor STRENGTHS/WEAKNESSES: Strength is that the patient has services. Weakness is that the patient has very poor ego integrity. INTELLECT: Below average to average IMPRESSIONS: Major depressive disorder, recurrent, severe, with psychotic features Borderline personality disorder Seizure disorder PLAN: -Patient is admitted under voluntary status to MHU for stabilization of psychiatric symptoms and safety. Patient signed adult voluntary form and medication consent and is placed in patient's chart. -Approximately 20 minutes spent engaging patient in mentalization therapy and cognitive reframing. -Medications : Discontinue Prozac Start Effexor XR 75 mg for depression/anxiety Continue Tegretol 200 mg by mouth twice a day and 400 mg by mouth at bedtime for seizure disorder Continue Lamictal 200 mg by mouth twice a day for seizure disorder/mood -Ativan and Haldol PRN for agitation/aggression -Patient was counselled on substance abuse and agrees to abstain from use -Patient was informed of the risks, benefits and side effects of the medication and patient verbally consented to taking the medications. Patient signed med consent form and was placed in chart. -Internal Medicine consult to perform medical evaluation and physical. -SW on board for discharge planning. Encourage patient to participate in groups to work on coping skills. 12/11/22 11:50
[2022-12-11] MEDS ORDERED: LIDOCAINE 5% OINTMENT 50 GM JAR TOPICAL ONE (12:30)
[2022-12-11] MEDS ORDERED: DICLOFENAC SODIUM GEL 100 GM TUBE TOPICAL PRN (16:18)
--- NOTE | 2022-12-11 16:25 | P.MDCNMH ---
History of Present Illness H&P Date: 12/11/22 This is a 32 year old male who presented to the emergency department with feeling increasingly depressed with thoughts of suicidal ideation and brought in by police. Patient reports he was at counseling earlier in the day he came agitated and angry and left and became more with more depressed with increased suicidal thoughts and wanted to jump in the river. Patient reported he had a tearful breakdown and called 911 and was brought to the emergency department for psychiatric evaluation. Patient reports he follows with Dr. Samson in the outpatient setting with a past medical history of GERD, seizure disorder, thyroid disorder, history of epilepsy, acne. Patient also reports to anxiety and depression and reports he had been taking his medications. Patient denies smoking occasionally uses alcohol and denies any other illicit drug use. Patient was voluntarily admitted to [facility] [place] for further evaluation. Labs in the ER showed a urine drug screen was positive for barbit urates and benzos and COVID-19 was negative. Home medications have been reviewed and resumed. Labs from this morning within normal limits. Review Of Systems: Constitutional: No fever, no chills, no night sweats. No weight change. No weakness, fatigue or lethargy. No daytime sleepiness. EENT: No headache. No blurred vision or double vision, no loss of vision. No loss of Hearing, no ringing in the ears, no dizziness. No nasal drainage or congestion. No epistaxis. No sore throat. Lungs: No shortness of breath, cough, no sputum production. No wheezing. Cardiovascular: No chest pain, no lower extremity edema. No palpitations. No paroxysmal nocturnal dyspnea. No orthopnea. No lightheadedness or dizziness. No syncopal episodes. Abdominal: No abdominal pain. No nausea, vomiting. No diarrhea. No constipation. No bloody or tarry stools.. No loss of appetite. Genitourinary: No dysuria, increased frequency, urgency. No urinary retention. Musculoskeletal: No myalgias. No muscle weakness, no gait dysfunction, no frequent falls. No back pain. No neck pain. Integumentary: No wounds, no lesions. No rash or pruritus. No unusual bruising. No change in hair or nails. Neurologic: No aphasia. No facial droop. No change in mentation. No head injury. No headache. No paralysis. No paresthesia. Psychiatry: Reports increased depression. Reports anxiety, no mood swings, reports suicidal ideation with no plan Endocrine: No abnormal blood sugars. No weight change. No excessive sweating or thirst. No cold intolerance. PHYSICAL EXAMINATION: GENERAL: The patient is alert and oriented x4, Well developed, well nourished. HEENT: Pupils are round and equally reacting to light. EOMI. no scleral icterus. No conjunctival pallor. Normocephalic, atraumatic. No pharyngeal erythema. No thyromegaly. CARDIOVASCULAR: S1 and S2 muffled PULMONARY: diminished breath sounds bilaterally otherwise clear to auscultation with no wheezing or rhonchi noted. ABDOMEN: soft. Non-tender on exam. non-distended, normoactive bowel sounds. No palpable organomegaly. MUSCULOSKELETAL: No joint swelling or deformity. EXTREMITIES: No cyanosis, clubbing, or pedal edema. NEUROLOGICAL: Gross neurological examination did not reveal any focal deficits. SKIN: No rashes. Assessment: Depression, severe with suicidal ideation History of seizures Gastroesophageal reflux disease History of epilepsy Anxiety/depression history GI prophylaxis DVT prophylaxis Full code Plan: Recommend to continue with current medications and management per psychiatric services. Patient was voluntarily admitted to the psych floor for further evaluation after increased suicidal thoughts and severe depression Home medications reviewed and resumed Patient encouraged to attend group therapy sessions and compliance with medications Thank you kindly for this consultation The impression and plan of care has been dictated by Maria Isabel Fabian, nurse practitioner as directed. Dr. Josselin MD I have performed a history and examination and MDM of this patient, discussed the same with the dictator, and agree with the dictator's assessment and plan as written ,documented as a scribe. Based on total visit time, I have performed more than 50% of the visit. Any additional findings or plans will be noted. Past Medical History Past Medical History: GERD/Reflux, Seizure Disorder, Skin Disorder, Thyroid Disorder Additional Past Medical History / Comment(s): has history of epilepsy, hx grand mal seizures since childhood, migraines, acne, Last seizure was 07/28/22 History of Any Multi-Drug Resistant Organisms: None Reported, Unobtainable Past Surgical History: Adenoidectomy, Appendectomy, Cholecystectomy, Tonsillectomy Additional Past Surgical History / Comment(s): oral surgery. I & D CYST ON BACK 08/19/22. MULTIPLE STITCHES Past Anesthesia/Blood Transfusion Reactions: Previous Problems w/ Anesthesia Additional Past Anesthesia/Blood Transfusion Reaction / Comment(s): SLOW TO WAKE FROM ANESTHESIA" Past Psychological History: Anxiety, Depression Additional Psychological History / Comment(s): per pt-he was in special education classes thru out school(has some intellectual disabilty), speech impediment. able to read and write fine. hx cluster b disorder Smoking Status: Never smoker Past Alcohol Use History: Occasional Additional Past Alcohol Use History / Comment(s): Denies any alcohol intake since he is on probation til April 2019 Past Drug Use History: None Reported Additional Drug Use History / Comment(s): Denies any illicit drugs or any marijuana use - Past Family History Mother Family Medical History: Cancer Additional Family Medical History / Comment(s): breast cancer Medications and Allergies Home Medications Medication Instructions Recorded Confirmed Type carBAMazepine [TEGretol XR] 400 mg PO HS 10/19/18 12/10/22 History lamoTRIgine [LaMICtal] 200 mg PO BID #0 06/28/20 12/10/22 Rx carBAMazepine [TEGretol] 200 mg PO BID 10/10/20 12/10/22 History Cyclobenzaprine HCl 10 mg PO Q8H PRN 10/03/21 12/10/22 History PHENobarbitaL [Luminal] 129.6 mg PO HS 08/28/22 12/10/22 History Zonisamide [Zonegran] 400 mg PO HS 08/28/22 12/10/22 History Cariprazine HCl [Vraylar] 3 mg PO HS 12/10/22 12/10/22 History Diclofenac Sodium Gel [Voltaren 2 gm TOPICAL QID PRN 12/10/22 12/10/22 History Gel] FLUoxetine HCL 40 mg PO DAILY 12/10/22 12/10/22 History Ibuprofen [Motrin] 800 mg PO Q8H PRN 12/10/22 12/10/22 History LORazepam [Ativan] 0.5 mg PO BID PRN 12/10/22 12/10/22 History Midazolam [Nayzilam] 1 spray NASAL ONCE PRN 12/10/22 12/10/22 History Omeprazole [PriLOSEC] 20 mg PO DAILY 12/10/22 12/10/22 History Allergies Allergy/AdvReac Type Severity Reaction Status Date / Time No Known Allergies Allergy Verified 12/10/22 18:02 Physical Exam Vitals: Vital Signs Temp Pulse Pulse Resp BP BP BP 12/11/22 06:42 97.3 F L 70 18 118/78 12/10/22 21:55 97.9 F 88 20 132/88 12/10/22 14:07 97.7 F 76 18 121/82 Pulse Ox 12/11/22 06:42 99 12/10/22 21:55 98 12/10/22 14:07 99 Intake and Output 12/10/22 12/11/22 12/11/22 22:59 06:59 14:59 Other: Weight 86 kg 86 kg Cranial Nerve Examination - Cranial Nerves Cranial Nerve I- Olfactory: Intact Cranial Nerve II- Optic: Intact Cranial Nerve III- Oculomotor: Intact Cranial Nerve IV- Trochlear: Intact Cranial Nerve V- Trigeminal: Intact Cranial Nerve - Abducens: Intact Cranial Nerve VII- Facial: Intact Cranial Nerve VIII- Auditory: Intact Cranial Nerve IX- Glossopharyngeal: Intact Cranial Nerve X- Vagus: Intact Cranial Nerve XI- Accessory: Intact Cranial Nerve XII- Hypoglossal: Intact Results CBC & Chem 7: 12/11/22 09:11 12/11/22 09:11 Labs: Abnormal Lab Results - Last 24 Hours (Table) 12/10/22 Range/Units 16:41 Ur Barbiturates Screen Detected H (NotDetected) U Benzodiazepines Scrn Detected H (NotDetected) Assessment and Plan Time with Patient: Less than 30
[2022-12-11 17:21] LABS: Chol/HDL Ratio 4.88 Ratio; LDL Cholesterol,Calculated 162.1 mg/dL (0.0-131.0); VLDL Calculation 16.02 mg/dL (5.00-40.00)
[2022-12-11] MEDS: ZONISAMIDE 100 MG CAP PO SCH (20:09)
[2022-12-11] MEDS: carBAMazepine 400 MG TAB.ER.12H PO SCH (20:26)
[2022-12-12] MEDS: LIDOCAINE 5% OINTMENT 50 GM JAR TOPICAL PRN ×2 (07:24→20:15)
[2022-12-12] MEDS: VENLAFAXINE HCL ER 75 MG CAP PO SCH (08:19)
[2022-12-12] MEDS: PANTOPRAZOLE 40 MG TABLET PO SCH (08:19)
[2022-12-12] MEDS: carBAMazepine 200 MG TAB PO SCH ×2 (08:19→20:38)
[2022-12-12] MEDS: lamoTRIgine 100 MG TAB PO SCH ×2 (08:19→20:36)
[2022-12-12] MEDS ORDERED: VENLAFAXINE HCL ER 150 MG CAP PO SCH (09:00)
--- NOTE | 2022-12-12 13:35 | P.PN ---
Progress Note - Text Progress Note Date: 12/12/22 Interval History: Patient was seen wandering the hallways and was directable and agreeable to speak with junior technical writer in the office. Currently, the patient is not reporting any suicidal or homicidal ideation, intention, and/or plan. He is not reporting any auditory or visual hallucinations. He reports no paranoia or other delusions. He remains future oriented with a desire to be discharged tomorrow so that he may make it to his son's basketball game this weekend. He reports that he was able to speak with his and has been working things out. He has been adherent with his medication and is not endorsing any significant side effects. Mental Status Exam: General Appearance: Patient appears to be stated age is alert, directable, and cooperative. Behavior: Patient is calmly seated without any agitated behavior. Speech: Patient's speech is fluent and nonpressured. Mood/Affect: Mood is improving mildly, affect is congruent and constricted. Suicidality/Homicidality: Patient denies having any suicidal or homicidal ideation intent or plan. Perceptions: Patient denies any visual hallucinations and denies any auditory hallucinations Though content/process: There is no evidence of any delusional thought content and thought process is linear and goal-directed. Memory and concentration: AOX3, grossly intact for the purposes of this session Judgment and insight: Improving mildly Vital Signs Temp 97.9 F 12/12/22 06:49 Pulse 77 12/12/22 06:49 Resp 18 12/12/22 06:49 BP 102/73 12/12/22 06:49 Pulse Ox 99 12/12/22 06:49 FiO2 Intake & Output 12/11/22 12/12/22 12/12/22 18:59 06:59 18:59 Weight 86 kg Laboratory Results - Last 24 Hours 12/11/22 12/11/22 09:11 09:[address] Glu mg/dL 102 Hemoglobin A1c 5.2 Triglycerides 80.10 Cholesterol 224.00 H LDL Cholesterol, Calc 162.1 H VLDL Cholesterol, Calc 16.02 HDL Cholesterol 45.90 Cholesterol/HDL Ratio 4.88 Assessment Major depressive disorder, recurrent, severe, with psychotic features Borderline personality disorder Seizure disorder Plan: -Patient continues to meet criteria for inpatient psychiatric admission for symptom stabilization and safety. Patient has signed adult voluntary form and medication consent and was placed in patient's chart. -Medications: Continue Effexor XR 75 mg for depression/anxiety Continue Tegretol 200 mg by mouth twice a day and 400 mg by mouth at bedtime for seizure disorder Continue Lamictal 200 mg by mouth twice a day for seizure disorder/mood -When necessary Ativan and Haldol for agitation/aggression. -SW on board for discharge planning. Encouraged the patient to participate in milieu.
[2022-12-12] MEDS: ZONISAMIDE 100 MG CAP PO SCH (20:38)
[2022-12-12] MEDS: carBAMazepine 400 MG TAB.ER.12H PO SCH (20:42)
[2022-12-13 04:22] VITALS: BP 103/60; PULSE 88; RESP 17; TEMP 97.1
[2022-12-13] MEDS: LIDOCAINE 5% OINTMENT 50 GM JAR TOPICAL PRN (06:53)
[2022-12-13] MEDS: VENLAFAXINE HCL ER 75 MG CAP PO SCH (08:23)
[2022-12-13] MEDS: lamoTRIgine 100 MG TAB PO SCH (08:23)
[2022-12-13] MEDS: PANTOPRAZOLE 40 MG TABLET PO SCH (08:23)
[2022-12-13] MEDS: carBAMazepine 200 MG TAB PO SCH (08:23)
--- NOTE | 2022-12-13 11:55 | P.DS ---
Providers Date of admission: 12/10/22 21:38 Expected date of discharge: 12/13/22 Attending physician: Jorge Alberto Leary MD Consults: 12/10/22 21:55 Consult Physician Routine Consulting Provider: Ana Maria Samson Consult Reason/Comments: H&P and medical Do you want consulting provider notified?: Yes Primary care physician: Ana Maria Samson - Discharge Diagnosis(es) (1) Adjustment disorder with mixed disturbance of emotions and conduct Current Visit: Yes Status: Resolved Priority: High (2) Borderline personality disorder Current Visit: Yes Status: Chronic Priority: High (3) Seizure disorder Current Visit: No Status: Chronic Priority: Low Hospital Course: Admission HPI: Patient is a 32-year-old male with significant history of seizure disorder, depressive disorder, and borderline personality disorder who presents for hospital with a chief complaint of homicidal ideation. Patient presented to the hospital on 12/10/2022, brought into the hospital for suicidal ideation. The patient reports that he was attending counseling with his during which at that appointment, she mentioned that she is considering divorce. A point of contention between him and his is his excessive playing of video games which he states is for 9.5 hours per day. The patient ended up walking out of the counseling appointment and by the river. He then endorsed suicidal ideation. The patient expressed that he did not want to go to his mother's. If he is unable to go to his mother's or return back to his , the patient states that he has no other option but to kill himself. The patient is not endorsing any significant symptoms of depression aside from low energy, hopelessness, and suicidal ideation. He is not reporting any changes in appetite and grooming. He denies any previous attempts at suicide. He is not endorsing any significant symptoms of bipolar disorder. He denies any symptoms of zac or hypomania. He denies any racing thoughts, grandiosity, or increased goal-directed activity. He reports no auditory or visual hallucinations. He denies any paranoia or other delusions. Patient has previous diagnosis of major depressive disorder and borderline personality disorder. He is currently prescribed a regimen of Lamictal, Teg retol, Prozac, and Vraylar. He was last hospitalized on a psychiatric unit in August 2022. [facility] He denies any prior attempts at suicide. Hospital course: Upon admission to the unit patient was initially irritable and endorsing suicidal ideation. Patient was however directable and agreeable to commence treatment. Patient got along well with other patients on the unit and followed unit protocol. Patient was compliant with the medications and denied any side effects throughout hospital course. We engaged in dialectical behavioral th erapy and appropriate communication skills. Patient acknowledged that he is a poor communicator and needs to work on communicating with his in compromising with her in order to maintain a stable environment for their son. The patient was also started on Effexor for management of his depression and Prozac was held. However, the patient reported a desire to be back on Prozac prior to discharge. The patient was also seen by medical team for history and physical examination. On the course of the hospital physician, the patient displayed no significant signs or symptoms of worsening depression or any suicidal or homicidal ideation, intention, and/or plan. On the day of discharge, the patient is reporting that he wants to live for himself and for his family. He reports that he would like to be there for his son's basketball game. He denies any access to firearms or other weapons. He is denying any suicidal or homicidal ideation, intention, and/or plan. He is not endorsing any significant symptoms of zac or hypomania. He reports no auditory or visual hallucinations. He denies any paranoia or other delusions. The patient was informed that his primary diagnosis is a cluster B personality disorder. He was informed that medications do not address this and he would require care home therapy. He was also informed that therapy would only work if he is willing to change and if he sees a problem with his actions. The patient appears to be pre-contemplative at this time. The patient was counseled on his medications and the importance of medication adherence as well as appropriate outpatient follow-up. He does not have a significant history of substance abuse was counseled at great length on abstaining from all substances including tobacco, alcohol, marijuana, and illicit drugs. As the patient no longer met criteria for continued inpatient psychiatric admission, he was subsequently discharged. Mental status exam: General Appearance: Patient appears to be stated age is alert, pleasant, and cooperative. Patient is in no acute distress and has fair hygiene and grooming Behavior: Patient is calmly seated without any agitated behavior. Speech: Patient's speech is fluent and nonpressured. Mood/Affect: Patient reports their mood is "I'm okay", affect is congruent and euthymic. Suicidality/Homicidality: Patient denies having any suicidal or homicidal id eation intent or plan. Perceptions: Patient denies any auditory or visual hallucinations. Though content/process: There is no evidence of any delusional thought content and thought process is linear and goal-directed. Patient is future oriented. Memory and concentration: AOX3, grossly intact for the purposes of this session. Can spell "WORLD" backwards correctly. Judgment and insight: Improved with guarded prognosis Impression: Adjustment disorder with mixed disturbance of mood and conduct Borderline personality disorder Seizure disorder Plan: -Continue with discharge today as patient has improved and stabilized psychiatrically and is not currently an imminent threat to himself and/or others. Patient will remain at chronically elevated risk due to his poor ego integrity, poor frustration tolerance, and poor impulse control. -Continue medications: Continue his antiseizure medications. Discharge with Prozac 40 mg by mouth daily. Can continue Vraylar in outpatient setting. Patient would most benefit from DBT. However patient does appear reluctant to change. -Patient was counseled on the need for medication compliance and appropriate follow-up at mental health and also primary care for medical issues. Patient verbalized understanding and agreed. -Social work to arrange for and conduct family meeting to ensure safety upon discharge and answer any questions/concerns. Social work also to arrange for patients follow up appointments with [facility] for [facility] along with follow up with primary care provider. -Patient counseled on abstaining from recreational drugs and marijuana and alcohol. Was informed/educated on the adverse effects on their physical and mental health. Patient verbally agreed and understood. -Patient was instructed to return to the hospital or seek immediate medical care if their psychiatric or medical symptoms do worsen or reoccur. -Psychoeducation and supportive therapy provided to patient. Risks and benefits of pharmacological treatment versus the risks and benefits of nontreatment weight and discussed. Informed consent discussion held. Common side effects of psychotropics discussed such as, but not limited to headache, GI disturbance, sexual dysfunction, movement disorders, sedation, and orthostatic hypotension. Life threatening and blackbox warnings of prescribed medications also discussed. Potential risks of operating a vehicle or heavy machinery discussed with patient at length. Advised on importance of compliance and a reliable and responsible manner. Patient advised to review FDA consumer labeling of all medications prior to taking. Patient verbalized understanding of potential risks, and agrees with current treatment plan. Patient advised to medically contact physician/emergency personnel if any acute changes in condition occur. Vital Signs Temp 97.1 F L 12/13/22 04:21 Pulse 88 12/13/22 04:21 Resp 17 12/13/22 04:21 BP 103/60 12/13/22 04:21 Pulse Ox 98 12/13/22 04:21 FiO2 Laboratory Results WBC 5.7 k/uL (3.8-10.6) 12/11/22 09:11 RBC 4.76 m/uL (4.30-5.90) 12/11/22 09:11 Hgb 15.5 gm/dL (13.0-17.5) 12/11/22 09:11 Hct 45.1 % (39.0-53.0) 12/11/22 09:11 MCV 94.7 fL (80.0-100.0) 12/11/22 09:11 MCH 32.6 pg (25.0-35.0) 12/11/22 09:11 MCHC 34.5 g/dL (31.0-37.0) 12/11/22 09:11 RDW 13.1 % (11.5-15.5) 12/11/22 09:11 Plt Count 182 k/uL (150-450) 12/11/22 09:11 MPV 7.0 12/11/22 09:11 Neutrophils % 50 % 12/11/22 09:11 Lymphocytes % 33 % 12/11/22 09:11 Monocytes % 4 % 12/11/22 09:11 Eosinophils % 10 % 12/11/22 09:11 Basophils % 1 % 12/11/22 09:11 Neutrophils # 2.9 k/uL (1.3-7.7) 12/11/22 09:11 Lymphocytes # 1.9 k/uL (1.0-4.8) 12/11/22 09:11 Monocytes # 0.2 k/uL (0-1.0) 12/11/22 09:11 Eosinophils # 0.5 k/uL (0-0.7) 12/11/22 09:11 Basophils # 0.1 k/uL (0-0.2) 12/11/22 09:11 Sodium 140 mmol/L (137-145) 12/11/22 09:11 Potassium 4.2 mmol/L (3.5-5.1) 12/11/22 09:11 Chloride 110 mmol/L (98-107) H 12/11/22 09:11 Carbon Dioxide 19 mmol/L (22-30) L 12/11/22 09:11 Anion Gap 11 mmol/L 12/11/22 09:11 BUN 12 mg/dL (9-20) 12/11/22 09:11 Creatinine 0.99 mg/dL (0.66-1.25) 12/11/22 09:11 Est GFR (CKD-EPI)AfAm >90 (>60 ml/min/1.73 sqM) 12/11/22 09:11 Est GFR (CKD-EPI)NonAf >90 (>60 ml/min/1.73 sqM) 12/11/22 09:11 Glucose 103 mg/dL (74-99) H 12/11/22 09:[address] Glu mg/dL 102 12/11/22 09:11 Hemoglobin A1c 5.2 % (0.0-6.0) 12/11/22 09:11 Calcium 9.3 mg/dL (8.4-10.2) 12/11/22 09:11 Total Bilirubin 0.5 mg/dL (0.2-1.3) 12/11/22 09:11 AST 21 U/L (17-59) 12/11/22 09:11 ALT 18 U/L (4-49) 12/11/22 09:11 Alkaline Phosphatase 103 U/L (38-126) 12/11/22 09:11 Total Protein 8.0 g/dL (6.3-8.2) 12/11/22 09:11 Albumin 4.8 g/dL (3.5-5.0) 12/11/22 09:11 Triglycerides 80.10 mg/dL (0.00-149.00) 12/11/22 09:11 Cholesterol 224.00 mg/dL (0.00-200.00) H 12/11/22 09:11 LDL Cholesterol, Calc 162.1 mg/dL (0.0-131.0) H 12/11/22 09:11 VLDL Cholesterol, Calc 16.02 mg/dL (5.00-40.00) 12/11/22 09:11 HDL Cholesterol 45.90 mg/dL (40.00-60.00) 12/11/22 09:11 Cholesterol/HDL Ratio 4.88 Ratio 12/11/22 09:11 TSH 1.800 mIU/L (0.465-4.680) 12/11/22 09:11 Urine Opiates Screen Not Detected (NotDetected) 12/10/22 16:41 Ur Oxycodone Screen Not Detected (NotDetected) 12/10/22 16:41 Urine Methadone Screen Not Detected (NotDetected) 12/10/22 16:41 Ur Propoxyphene Screen Not Detected (NotDetected) 12/10/22 16:41 Ur Barbiturates Screen Detected (NotDetected) H 12/10/22 16:41 U Tricyclic Antidepress Not Detected (NotDetected) 12/10/22 16:41 Ur Phencyclidine Scrn Not Detected (NotDetected) 12/10/22 16:41 Ur Amphetamines Screen Not Detected (NotDetected) 12/10/22 16:41 U Methamphetamines Scrn Not Detected (NotDetected) 12/10/22 16:41 U Benzodiazepines Scrn Detected (NotDetected) H 12/10/22 16:41 Urine Cocaine Screen Not Detected (NotDetected) 12/10/22 16:41 U Marijuana (THC) Screen Not Detected (NotDetected) 12/10/22 16:41 Coronavirus (PCR) Not Detected (Not Detectd) 12/10/22 19:50 Allergies Allergy/AdvReac Type Severity Reaction Status Date / Time No Known Allergies Allergy Verified 12/10/22 18:02 Patient Condition at Discharge: Stable Plan - Discharge Summary Discharge Rx Participant: No New Discharge Prescriptions: Continue carBAMazepine [TEGretol XR] 400 mg PO HS lamoTRIgine [LaMICtal] 200 mg PO BID #0 carBAMazepine [TEGretol] 200 mg PO BID Cyclobenzaprine HCl 10 mg PO Q8H PRN PRN Reason: Muscle Spasm Omeprazole [PriLOSEC] 20 mg PO DAILY Midazolam [Nayzilam] 1 spray NASAL ONCE PRN PRN Reason: Seizures Zonisamide [Zonegran] 400 mg PO HS PHENobarbitaL [Luminal] 129.6 mg PO HS Diclofenac Sodium Gel [Voltaren Gel] 2 gm TOPICAL QID PRN PRN Reason: Pain LORazepam [Ativan] 0.5 mg PO BID PRN PRN Reason: Anxiety Ibuprofen [Motrin] 800 mg PO Q8H PRN PRN Reason: Pain Or Fever > 100.5 Cariprazine HCl [Vraylar] 3 mg PO HS FLUoxetine HCL 40 mg PO DAILY 15 Days #15 cap Discharge Medication List carBAMazepine [TEGretol XR] 400 mg PO HS 10/19/18 [History] lamoTRIgine [LaMICtal] 200 mg PO BID #0 06/28/20 [Rx] carBAMazepine [TEGretol] 200 mg PO BID 10/10/20 [History] Cyclobenzaprine HCl 10 mg PO Q8H PRN 10/03/21 [History] PHENobarbitaL [Luminal] 129.6 mg PO HS 08/28/22 [History] Zonisamide [Zonegran] 400 mg PO HS 08/28/22 [History] Cariprazine HCl [Vraylar] 3 mg PO HS 12/10/22 [History] Diclofenac Sodium Gel [Voltaren Gel] 2 gm TOPICAL QID PRN 12/10/22 [History] Ibuprofen [Motrin] 800 mg PO Q8H PRN 12/10/22 [History] LORazepam [Ativan] 0.5 mg PO BID PRN 12/10/22 [History] Midazolam [Nayzilam] 1 spray NASAL ONCE PRN 12/10/22 [History] Omeprazole [PriLOSEC] 20 mg PO DAILY 12/10/22 [History] FLUoxetine HCL 40 mg PO DAILY 15 Days #15 cap 12/13/22 [Rx] Follow up Appointment(s)/Referral(s): [facility] - 12/19/22 12:30 pm (with Fidelina) Ana Maria Samson MD [Primary Care Provider] - 1-2 days Patient Instructions/Handouts: Seizure/Epilepsy Discharge Instructions & Follow-Up, Depression (DC), Borderline Personality Disorder (DC) Activity/Diet/Wound Care/Special Instructions: Avoid the use of street drugs and alcohol. Take all medications as prescribed. When you are in need of refills on your medications, please contact your medical provider and/or outpatient psychiatrist to have this done. Please go to scheduled outpatient appointments for aftercare treatment. If symptoms return or become worse, call the crisis line at and/or go to the nearest emergency room for evaluation. Discharge Disposition: HOME SELF-CARE
== END 2022-12-13 12:44 | disposition home or self-care (01) | DRG 882 ==
LOC: EC 14:00 → 3MHU 21:38
PROVIDERS: ADMIT Psychiatry & Neurology Psychiatry; ATTEND Psychiatry & Neurology Psychiatry
DX: F43.25 Adjustment disorder with mixed disturbance of emotions and conduct (principal); R45.851 Suicidal ideations; F33.3 Major depressive disorder, recurrent, severe with psychotic symptoms; G40.409 Other generalized epilepsy and epileptic syndromes, not intractable, without status epilepticus; R45.850 Homicidal ideations; F60.89 Other specific personality disorders; F60.3 Borderline personality disorder; Z20.822 Contact with and (suspected) exposure to COVID-19; F41.9 Anxiety disorder, unspecified; E07.9 Disorder of thyroid, unspecified; K21.9 Gastro-esophageal reflux disease without esophagitis; L98.9 Disorder of the skin and subcutaneous tissue, unspecified; Z79.899 Other long term (current) drug therapy
CPT/HCPCS: 80053; 80061; 80306; 82075; 83036; 84443; 85025; 87635; 99285

== ENCOUNTER → 2023-01-23 | Outpatient (CLI) | payer MEDICARE, MEDICAID ==
--- NOTE | 2023-01-23 14:48 | P.SLEEP ---
History of Present Illness DATE: 01/23/2023 CONSULTATION/NEW PATIENT EVALUATION HISTORY OF PRESENT ILLNESS/SLEEP-WAKE EVALUATION: 32-year-old gentleman had been evaluated in the sleep center for possible obstructive sleep apnea hypopnea syndrome. SLEEP SCHEDULE: Usually sleep schedule from midnight until 7 AM. FALLING ASLEEP: Patient has problems with falling asleep, has TV in bedroom. DURING SLEEP: Patient sleeps in different positions with snoring and significant amount of jerking movements during the sleep. No history of hypnogogical hallucinations, sleep paralysis, or cataplexy. DURING THE DAY/WAKE STATE: During the day patient has significant sleepiness. [place] sleepiness scale is and extremely high range of 17. Patient take naps several times in the day. PAST MEDICAL HISTORY: Bipolar, tonic-clonic seizures last episode August 04, right-sided pleurisy. PAST SURGICAL HISTORY: Tonsillectomy, cholecystectomy. MEDICATIONS: Omeprazole, Tegretol, phenobarbital, Prozac, Lamictal, Ativan, Motrin. SOCIAL HISTORY: Negative for smoking, alcohol consumption occasional. FAMILY HISTORY: Angina, snoring. REVIEW OF SYSTEMS: Snoring, sleepiness during the day. No fevers. No double vision. No recent chest pain. No shortness of breath. No abdominal pain. No bleeding episodes. No blood in urine. No seizure episodes. PHYSICAL EXAMINATION: GENERAL: A pleasant patient without any distress. VITAL SIGNS: BP 119/75 , HR 73 , RR 16 , weight 192 pounds, height 5 foot 11 inches, body mass index 26.7 . HEENT: PERRLA, EOMI. Evaluation of oropharynx showed tongue protrudes midline, low position of soft palate Mallampati 3. NECK: Supple. No JVD. Thyroid is not palpable. 16 inches in circumference. LUNGS: Clear to percussion and to auscultation. Good air exchange. No wheezing or rhonchi. HEART: S1, S2 regular. No murmurs, gallops or rubs. ABDOMEN: Soft and nontender. Bowel sounds are present. No organomegaly appreciated. EXTREMITIES: No clubbing or cyanosis. 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 Cranial nerves 2 to 7 intact. There is no fasciculation or atrophy noted. No focal deficits observed. ASSESSMENT: 1. Snoring, low position of soft palate Mallampati 3, significant excessive daytime sleepiness. Possible obstructive sleep apnea hypopnea syndrome. 2. Significant amount of jerking movements during the sleep. Possibly periodic limb movements. 3. Extremely significant excessive daytime sleepiness. [place] Sleepiness Scale is 17. Differential diagnosis would include the narcolepsy and idiopathic hypersomnia. 4. History of bipolar disorder. 5 history of 19, clonic seizures, last episodes August [id number]. 6 . Status post tonsillectomy. 7. Status post cholecystectomy. PLAN: 1. Polysomnography for evaluation of patient's breathing during sleep and also to check for possible periodic limb movements. 2. CPAP/BiPAP titration if sleep study confirms obstructive sleep apnea-hy popnea syndrome. 3. Preferable position during sleep on the side. 4. No driving if patient feels any sleepiness. Patient is aware of civil and criminal liability for unsafe driving. 5. Sleep hygiene with regular sleep time for at least 7.5-8 hours. 6. Watching weight. 7. If sleep study will be negative for obstructive sleep apnea hypopnea syndrome will consider multiple sleep latency test. Thank you very much for referring this patient for consultation. Sincerely, Sidney Rodriguez MD, PhD, FAASM. Diplomat of [place] [employer], Sleep Medicine Board by [place] [employer] [place] [employer] [facility] [place] Past Medical History Past Medical History: GERD/Reflux, Seizure Disorder, Skin Disorder, Thyroid Disorder Additional Past Medical History / Comment(s): has history of epilepsy, hx grand mal seizures since childhood, migraines, acne, Last seizure was 07/28/22 History of Any Multi-Drug Resistant Organisms: None Reported, Unobtainable Past Surgical History: Adenoidectomy, Appendectomy, Cholecystectomy, Tonsillectomy Additional Past Surgical History / Comment(s): oral surgery. I & D CYST ON BACK 08/19/22. MULTIPLE STITCHES Past Anesthesia/Blood Transfusion Reactions: Previous Problems w/ Anesthesia Additional Past Anesthesia/Blood Transfusion Reaction / Comment(s): SLOW TO WAKE FROM ANESTHESIA" Past Psychological History: Anxiety, Depression Additional Psychological History / Comment(s): per pt-he was in special educatio n classes thru out school(has some intellectual disabilty), speech impediment. able to read and write fine. hx cluster b disorder Smoking Status: Never smoker Past Alcohol Use History: Occasional Additional Past Alcohol Use History / Comment(s): Denies any alcohol intake since he is on probation til April 2019 Past Drug Use History: None Reported Additional Drug Use History / Comment(s): Denies any illicit drugs or any marijuana use - Past Family History Mother Family Medical History: Cancer Additional Family Medical History / Comment(s): breast cancer Medications and Allergies Home Medications Medication Instructions Recorded Confirmed Type carBAMazepine [TEGretol XR] 400 mg PO HS 10/19/18 12/10/22 History lamoTRIgine [LaMICtal] 200 mg PO BID #0 06/28/20 12/10/22 Rx carBAMazepine [TEGretol] 200 mg PO BID 10/10/20 12/10/22 History Cyclobenzaprine HCl 10 mg PO Q8H PRN 10/03/21 12/10/22 History PHENobarbitaL [Luminal] 129.6 mg PO HS 08/28/22 12/10/22 History Zonisamide [Zonegran] 400 mg PO HS 08/28/22 12/10/22 History Cariprazine HCl [Vraylar] 3 mg PO HS 12/10/22 12/10/22 History Diclofenac Sodium Gel [Voltaren 2 gm TOPICAL QID PRN 12/10/22 12/10/22 History Gel] Ibuprofen [Motrin] 800 mg PO Q8H PRN 12/10/22 12/10/22 History LORazepam [Ativan] 0.5 mg PO BID PRN 12/10/22 12/10/22 History Midazolam [Nayzilam] 1 spray NASAL ONCE PRN 12/10/22 12/10/22 History Omeprazole [PriLOSEC] 20 mg PO DAILY 12/10/22 12/10/22 History FLUoxetine HCL 40 mg PO DAILY 15 Days #15 cap 12/13/22 Rx Allergies Allergy/AdvReac Type Severity Reaction Status Date / Time No Known Allergies Allergy Verified 12/10/22 18:02 Sleep Note - Sleep Note Sleep Note: Temperature: Pulse Rate: Respiratory Rate: Blood Pressure: SpO2: Height: Weight: BMI: Neck Circumference:
== END ==
LOC: SLEEP 12:58
PROVIDERS: ATTEND Internal Medicine
DX: G47.9 Sleep disorder, unspecified (principal); G40.909 Epilepsy, unspecified, not intractable, without status epilepticus; Z98.890 Other specified postprocedural states; F31.9 Bipolar disorder, unspecified; Z99.89 Dependence on other enabling machines and devices
CPT/HCPCS: 99211

== ENCOUNTER 2023-04-03 16:55 | Inpatient (IN) | payer MEDICARE, MEDICAID ==
--- NOTE | 2023-04-03 21:57 | ED ---
Psych HPI - General Chief Complaint: Psychiatric Symptoms Stated Complaint: mental health Time Seen by Provider: 04/03/23 20:26 Source: patient, RN notes reviewed, old records reviewed Mode of arrival: ambulatory Limitations: no limitations - History of Present Illness Initial Comments: This is a 33-year-old male to the emergency department for evaluation patient presents today for evaluation of not feeling well suicidal depressed states that he wants to jump off a bridge. Patient continues remains suicidal here in the emergency department MD Complaint: suicidal ideation, feels depressed -: minutes(s) Associated Psychiatric Symptoms: depression, suicidal ideation History of same: Yes Quality: constant Improves With: none Worsens With: none Associated Symptoms: confusion Treatments Prior to Arrival: placed on mental health hold - Related Data Home Medications Medication Instructions Recorded Confirmed carBAMazepine [TEGretol XR] 400 mg PO HS 10/19/18 04/04/23 carBAMazepine [TEGretol] 200 mg PO BID 10/10/20 04/04/23 PHENobarbitaL [Luminal] 129.6 mg PO HS 08/28/22 04/04/23 Zonisamide [Zonegran] 400 mg PO HS 08/28/22 04/04/23 Cariprazine HCl [Vraylar] 3 mg PO HS 12/10/22 04/04/23 Omeprazole [PriLOSEC] 20 mg PO DAILY 12/10/22 04/04/23 Previous Rx's Medication Instructions Recorded lamoTRIgine [LaMICtal] 200 mg PO BID #0 06/28/20 Sertraline [Zoloft] 100 mg PO DAILY 30 Days #30 tab 04/09/23 Allergies Allergy/AdvReac Type Severity Reaction Status Date / Time No Known Allergies Allergy Verified 04/03/23 20:59 Review of Systems ROS Statement: Those systems with pertinent positive or pertinent negative responses have been documented in the HPI. ROS Other: All systems not noted in ROS Statement are negative. Past Medical History Past Medical History: GERD/Reflux, Seizure Disorder, Skin Disorder, Thyroid Disorder Additional Past Medical History / Comment(s): has history of epilepsy, hx grand mal seizures since childhood, migraines, acne, Last seizure was 07/28/22 History of Any Multi-Drug Resistant Organisms: None Reported, Unobtainable Past Surgical History: Adenoidectomy, Appendectomy, Cholecystectomy, Tonsillectomy Additional Past Surgical History / Comment(s): oral surgery. I & D CYST ON BACK 08/19/22. MULTIPLE STITCHES Past Anesthesia/Blood Transfusion Reactions: Previous Problems w/ Anesthesia Additional Past Anesthesia/Blood Transfusion Reaction / Comment(s): SLOW TO WAKE FROM ANESTHESIA" Past Psychological History: Anxiety, Depression Smoking Status: Never smoker Past Alcohol Use History: Occasional Past Drug Use History: None Reported - Past Family History Mother Family Medical History: Cancer Additional Family Medical History / Comment(s): breast cancer General Exam Limitations: no limitations General appearance: alert, in no apparent distress Head exam: Present: atraumatic, normocephalic, normal inspection Eye exam: Present: normal appearance, PERRL, EOMI. Absent: scleral icterus, conjunctival injection, periorbital swelling ENT exam: Present: normal exam, mucous membranes moist Neck exam: Present: normal inspection. Absent: tenderness, meningismus, lymphadenopathy Respiratory exam: Present: normal lung sounds bilaterally. Absent: respiratory distress, wheezes, rales, rhonchi, stridor Cardiovascular Exam: Present: regular rate, normal rhythm, normal heart sounds. Absent: systolic murmur, diastolic murmur, rubs, gallop, clicks GI/Abdominal exam: Present: soft, normal bowel sounds. Absent: distended, tenderness, guarding, rebound, rigid Extremities exam: Present: normal inspection, full ROM, normal capillary refill. Absent: tenderness, pedal edema, joint swelling, calf tenderness Back exam: Present: normal inspection Neurological exam: Present: alert, oriented X3, CN II-XII intact Psychiatric exam: Present: normal affect, normal mood Skin exam: Present: warm, dry, intact, normal color. Absent: rash Course Vital Signs 04/03/23 04/04/23 19:08 02:21 Temperature 99.5 F Pulse Rate 80 60 Respiratory 18 18 Rate Blood Pressure 117/80 103/69 O2 Sat by Pulse 98 100 Oximetry - Reevaluation(s) Reevaluation #1: 04/03/23 22:58 Medical record is reviewed Reevaluation #2: 04/03/23 22:58 Medical clear for psychiatric evaluation Medical Decision Making - Medical Decision Making 33 male for psychiatric evaluation. Patient will be admitted for psychiatric evaluation and treatment - Lab Data Result diagrams: 04/04/23 09:33 04/04/23 09:33 Lab Results 04/03/23 04/04/23 Range/Units 21:45 01:19 Urine Color Colorless Urine Appearance Clear (Clear) Urine pH 6.5 (5.0-8.0) Ur Specific [place] 1.003 (1.001-1.035) Urine Protein Negative (Negative) Urine Glucose (UA) Negative (Negative) Urine Ketones Negative (Negative) Urine Blood Negative (Negative) Urine Nitrite Negative (Negative) Urine Bilirubin Negative (Negative) Urine Urobilinogen <2.0 (<2.0) mg/dL Ur Leukocyte Esterase Negative (Negative) Urine Opiates Screen Not Detected (NotDetected) Ur Oxycodone Screen Not Detected (NotDetected) Urine Methadone Screen Not Detected (NotDetected) Ur Propoxyphene Screen Not Detected (NotDetected) Ur Barbiturates Screen Detected H (NotDetected) U Tricyclic Antidepress Not Detected (NotDetected) Ur Phencyclidine Scrn Not Detected (NotDetected) Ur Amphetamines Screen Not Detected (NotDetected) U Methamphetamines Scrn Not Detected (NotDetected) U Benzodiazepines Scrn Not Detected (NotDetected) Urine Cocaine Screen Not Detected (NotDetected) U Marijuana (THC) Screen Not Detected (NotDetected) Coronavirus (PCR) Not Detected (Not Detectd) Disposition Clinical Impression: Intellectual disability, Major depression, Major depressive disorder, recurrent severe without psychotic features, Adjustment reaction of adult life, Suicidal ideation Disposition: TRANSFER TO PSYCH HOSP/UNIT Condition: Fair Is patient prescribed a controlled substance at d/c from ED?: No
[2023-04-04] MEDS ORDERED: LORazepam 0.5 MG TAB PO PRN (00:56)
[2023-04-04] MEDS ORDERED: NON FORMULARY DRUG (Midazolam [Nayzilam] 5 MG/0.1 ML Each) EA NOSTRIL PRN (00:56)
[2023-04-04] MEDS ORDERED: CYCLOBENZAPRINE 10 MG TAB PO PRN (02:00)
[2023-04-04] MEDS ORDERED: IBUPROFEN 800 MG TAB PO PRN (02:00)
[2023-04-04 02:05] LABS: Appearance,Urine Clear (Clear); Bilirubin,Urine Negative (Negative); Blood,Urine Negative (Negative); Color,Urine Colorless; Glucose,Urine (UA) Negative (Negative); Ketones,Urine Negative (Negative); Leukocyte Esterase,Urine Negative (Negative); Nitrite,Urine Negative (Negative); PH, Urine 6.5 (5.0-8.0); Protein,Urine Negative (Negative); Specific Gravity,Urine 1.003 (1.001-1.035); Urobilinogen,Urine <2.0 mg/dL (<2.0)
[2023-04-04 02:50] LABS: Amphetamine Screen,Urine Not Detected (NotDetected); Barbiturate Screen,Urine Detected (NotDetected); Benzodiazepines Screen,Urine Not Detected (NotDetected); Cocaine Screen,Urine Not Detected (NotDetected); Methadone Screen, Urine Not Detected (NotDetected); Opiate Screen,Urine Not Detected (NotDetected); Oxycodone Screen, Urine Not Detected (NotDetected); Phencyclidine Screen,Urine Not Detected (NotDetected); Tricyclic Antidepressant,Urine Not Detected (NotDetected); Urn Cannabinoid Scrn Not Detected (NotDetected)
[2023-04-04] MEDS ORDERED: haloperidoL 5 MG TAB PO PRN (02:54)
[2023-04-04] MEDS ORDERED: ACETAMINOPHEN TAB 325 MG TAB PO PRN (02:54)
[2023-04-04] MEDS ORDERED: MAG HYDROX/AL HYDROX/SIMETH 30 ML CUP PO PRN (02:54)
[2023-04-04] MEDS ORDERED: MAGNESIUM HYDROXIDE 2,400 MG/30 ML CUP PO PRN (02:54)
[2023-04-04] MEDS ORDERED: HALOPERIDOL LACTATE 5 MG/ML 1 ML VIAL IM PRN (02:54)
[2023-04-04] MEDS: carBAMazepine 200 MG TAB PO SCH ×2 (08:21→21:13)
[2023-04-04] MEDS: lamoTRIgine 100 MG TAB PO SCH ×2 (08:22→21:13)
[2023-04-04] MEDS: PANTOPRAZOLE 40 MG TABLET PO SCH (08:23)
[2023-04-04] MEDS ORDERED: FLUoxetine HCL 20 MG CAP PO SCH ×2 (09:00)
[2023-04-04] MEDS ORDERED: PANTOPRAZOLE 40 MG TABLET PO SCH (09:00)
[2023-04-04] MEDS ORDERED: lamoTRIgine 100 MG TAB PO SCH (09:00)
[2023-04-04] MEDS ORDERED: carBAMazepine 200 MG TAB PO SCH (09:00)
[2023-04-04 10:24] LABS: Basophils % (A) 0 %; Eosinophils # (A) 0.7 k/uL (0-0.7); Eosinophils % (A) 9 %; HCT 45.9 % (39.0-53.0); HGB 15.7 gm/dL (13.0-17.5); Lymphocytes # (A) 2.3 k/uL (1.0-4.8); Lymphocytes % (A) 33 %; MCH 31.7 pg (25.0-35.0); MCHC 34.2 g/dL (31.0-37.0); MCV 92.7 fL (80.0-100.0); Mean Platelet Volume 8.3; Monocytes # (A) 0.4 k/uL (0-1.0); Monocytes % (A) 5 %; Neutrophils # (A) 3.5 k/uL (1.3-7.7); Neutrophils % (A) 49 %; Platelet Count 193 k/uL (150-450); RBC 4.95 m/uL (4.30-5.90); RDW 12.4 % (11.5-15.5)
--- NOTE | 2023-04-04 10:43 | P.HP ---
Psychiatric H&P - . H&P Date: 04/04/23 History & Physical: Allergies Allergy/AdvReac Type Severity Reaction Status Date / Time No Known Allergies Allergy Verified 04/03/23 20:59 Vital Signs Temp 98.2 F 04/04/23 04:20 Pulse 82 04/04/23 04:20 Resp 14 04/04/23 04:20 BP 131/81 04/04/23 04:20 Pulse Ox 98 04/04/23 04:20 FiO2 Intake & Output 04/03/23 04/04/23 04/04/23 18:59 06:59 18:59 Weight 82.355 kg Laboratory Last Values Urine Color Colorless 04/03/23 21:45 Urine Appearance Clear (Clear) 04/03/23 21:45 Urine pH 6.5 (5.0-8.0) 04/03/23 21:45 Ur Specific [place] 1.003 (1.001-1.035) 04/03/23 21:45 Urine Protein Negative (Negative) 04/03/23 21:45 Urine Glucose (UA) Negative (Negative) 04/03/23 21:45 Urine Ketones Negative (Negative) 04/03/23 21:45 Urine Blood Negative (Negative) 04/03/23 21:45 Urine Nitrite Negative (Negative) 04/03/23 21:45 Urine Bilirubin Negative (Negative) 04/03/23 21:45 Urine Urobilinogen <2.0 mg/dL (<2.0) 04/03/23 21:45 Ur Leukocyte Esterase Negative (Negative) 04/03/23 21:45 Urine Opiates Screen Not Detected (NotDetected) 04/03/23 21:45 Ur Oxycodone Screen Not Detected (NotDetected) 04/03/23 21:45 Urine Methadone Screen Not Detected (NotDetected) 04/03/23 21:45 Ur Propoxyphene Screen Not Detected (NotDetected) 04/03/23 21:45 Ur Barbiturates Screen Detected (NotDetected) H 04/03/23 21:45 U Tricyclic Antidepress Not Detected (NotDetected) 04/03/23 21:45 Ur Phencyclidine Scrn Not Detected (NotDetected) 04/03/23 21:45 Ur Amphetamines Screen Not Detected (NotDetected) 04/03/23 21:45 U Methamphetamines Scrn Not Detected (NotDetected) 04/03/23 21:45 U Benzodiazepines Scrn Not Detected (NotDetected) 04/03/23 21:45 Urine Cocaine Screen Not Detected (NotDetected) 04/03/23 21:45 U Marijuana (THC) Screen Not Detected (NotDetected) 04/03/23 21:45 Coronavirus (PCR) Not Detected (Not Detectd) 04/04/23 01:19 04/04/23 10:14 IDENTIFYING DATA: Patient is a 33-year-old male with significant history of seizure disorder, depressive disorder, and borderline personality disorder who presents for hospital with a chief complaint of suicidal ideation HPI: Patient presented to the hospital yesterday and was evaluated in the ER. Patient has a long history of several psychiatric admissions, has been following up with [facility], has a significant history of seizure disorder depression and borderline personality disorder. Patient apparently attempted suicide by going into the river and having a plan to jump off the bridge. Patient was admitted voluntarily to the mental health unit last night in seen this morning. Patient claims that he is been feeling depressed, endorsed financial and several "life stressors". He was fairly vague about his life stressors however. States that he does not know how he is going to be able to support his family with his income. He claims that he went into the river yesterday near the [facility] with a plan to kill himself. He claims that he went up to his knees in the water and then "thought about my son and turned back around". He claims he came to the hospital afterwards. States that he has been having depression and anxiety, claims he has been taking Prozac however believes it is not helping him any longer. Claims to be taking his other medications as well. He is not endorsing any significant symptoms of bipolar disorder or mood swings. He denies any symptoms of zac or hypomania. He denies any racing thoughts, grandiosity, or increased goal-directed activity. He reports no auditory or visual hallucinations. He is continuing to have suicidal thoughts however these are passive now intent or plan, denies any homicidal ideations. He denies any paranoia or other delusions. claims that he is not using any rec drugs. PAST PSYCHIATRIC HISTORY: Patient has previous diagnosis of depressive disorder and borderline personality disorder. He is currently prescribed a regimen of Lamictal, Tegretol, Prozac, and Vraylar and several antiepileptic medications. He was last hospitalized on a psychiatric unit in november 2022. [facility] with [facility]. He denies any prior attempts at suicide. PMH: Past Medical History: GERD/Reflux, Seizure Disorder, Skin Disorder, Thyroid Disorder Additional Past Medical History / Comment(s): has history of epilepsy, hx grand mal seizures since childhood, migraines, acne, Last seizure was 07/28/22 History of Any Multi-Drug Resistant Organisms: None Reported, Unobtainable Past Surgical History: Adenoidectomy, Appendectomy, Cholecystectomy, Tonsillectomy Additional Past Surgical History / Comment(s): oral surgery. I & D CYST ON BACK 08/19/22. MULTIPLE STITCHES Past Anesthesia/Blood Transfusion Reactions: Previous Problems w/ Anesthesia Additional Past Anesthesia/Blood Transfusion Reaction / Comment(s): SLOW TO WAKE FROM ANESTHESIA" Past Psychological History: Anxiety, Depression Smoking Status: Never smoker Past Alcohol Use History: Occasional Past Drug Use History: None Reported ALLERGIES: NO KNOWN DRUG ALLERGIES CHEMICAL DEPENDENCY HISTORY: The patient reports very rare alcohol use. He denies any tobacco, marijuana, or illicit drug use. FAMILY PSYCHIATRIC/SUBSTANCE USE HISTORY: No reported psychiatric history SOCIAL HISTORY: Patient was born and raised in [place], [place]. He is currently and has a [id number] son. He has an associates degree. He is currently on disability. MENTAL STATUS EXAM: General Appearance: Patient appears to be stated age is alert, directable, and attempts to cooperate. Patient appears to have fair hygiene and grooming. Behavior: Patient is seated without any agitated behavior. Psychomotor activity appears normal. appears tired Speech: Patient's speech is fluent and nonpressured. Mildly dysarthric secondary to lack of dentition. Mood/Affect: Patient reports their mood is depressed, affect is constricted Suicidality/Homicidality: Patient denies having any homicidal ideation intent or plan. Patient endorses suicidal ideation, no intent or plan Perceptions: Patient denies any visual hallucinations and denies any auditory hallucinations Though content/process: There is no evidence of any delusional thought content and thought process is linear and goal-directed. concrete. Memory and concentration: AOX3, grossly intact for the purposes of this session. Can spell "WORLD" backwards Judgment and insight: poor STRENGTHS/WEAKNESSES: Strength is that the patient has services. Weakness is that the patient has very poor ego integrity. INTELLECT: Below average to average IMPRESSIONS: Major depressive disorder, recurrent, severe, without psychotic features Borderline personality disorder Seizure disorder PLAN: -Patient is admitted under voluntary status to MHU for stabilization of psychiatric symptoms and safety. Patient signed adult voluntary form and med ication consent and is placed in patient's chart. -Approximately 20 minutes spent engaging patient in mentalization therapy and cognitive reframing. -Medications : start zoloft 50 mg daily for depression/anxiety, continue vraylar as per home dose. Continue AED as perscribed by his neurologist. -Ativan and Haldol PRN for agitation/aggression -Patient was counselled on substance abuse and agrees to abstain from use -Patient was informed of the risks, benefits and side effects of the medication and patient verbally consented to taking the medications. Patient signed med consent form and was placed in chart. -Internal Medicine consult to perform medical evaluation and physical. -NRT - not needed as patitent does not smoke. -SW on board for discharge planning. Encourage patient to participate in groups to work on coping skills. 04/04/23 10:34 04/04/23 10:43
[2023-04-04 11:11] LABS: ALT 18 U/L (4-49); African American GFR (CKD) >90 (>60 ml/min/1.73 sqM); Anion Gap 13 mmol/L; Bilirubin, Delta 0.4 mg/dL (0.0-0.2); Bilirubin,Unconjugated 0.2 mg/dL (0.0-1.1); Blood Urea Nitrogen 6 mg/dL (9-20); Calcium 9.4 mg/dL (8.4-10.2); Carbamazepine (Tegretol) 10.2 ug/mL; Carbon Dioxide 19 mmol/L (22-30); Chloride 108 mmol/L (98-107); Glucose 80 mg/dL (74-99); Non-African American GFR(CKD) >90 (>60 ml/min/1.73 sqM); Sodium 140 mmol/L (137-145); Total Bilirubin 0.6 mg/dL (0.2-1.3); Total Protein 8.4 g/dL (6.3-8.2)
[2023-04-04 11:12] LABS: AST 28 U/L (17-59); Alkaline Phosphatase 100 U/L (38-126); Potassium 4.1 mmol/L (3.5-5.1)
--- NOTE | 2023-04-04 16:44 | P.CONS ---
History of Present Illness - Reason for Consult Consult date: 04/04/23 - Chief Complaint Depression/suicidal ideation - History of Present Illness 33-year-old male patient with history of several psychiatric admissions, has been following up with [facility], has a significant history of seizure disorder depression and borderline personality disorder. Patient apparently attempted suicide by going into the river and having a plan to jump off the bridge. Patient was admitted voluntarily to the mental health unit last night in seen this morning. Patient claims that he is been feeling depressed, endorsed financial and several "life stressors". He was fairly vague about his life stressors however. States that he does not know how he is going to be able to support his family with his income. He claims that he went into the river yesterday near the [facility] with a plan to kill himself. He claims that he went up to his knees in the water and then "thought about my son and turned back around". He claims he came to the hospital afterwards. States that he has been having depression and anxiety, claims he has been taking Prozac however believes it is not helping him any longer. Review of Systems REVIEW OF SYSTEMS: CONSTITUTIONAL: No fever, no malaise, no fatigue. HEENT: No recent visual problems or hearing problems. Denied any sore throat. CARDIOVASCULAR: No chest pain, orthopnea, PND, no palpitations, no syncope. PULMONARY: No shortness of breath, no cough, no hemoptysis. GASTROINTESTINAL: No diarrhea, no nausea, no vomiting, no abdominal pain. NEUROLOGICAL: No headaches, no weakness, no numbness. HEMATOLOGICAL: Denies any bleeding or petechiae. GENITOURINARY: Denies any burning micturition, frequency, or urgency. MUSCULOSKELETAL/RHEUMATOLOGICAL: Denies any joint pain, swelling, or any muscle pain. ENDOCRINE: Denies any polyuria or polydipsia. The rest of the 14-point review of systems is negative. Past Medical History Past Medical History: GERD/Reflux, Seizure Disorder, Skin Disorder, Thyroid Disorder Additional Past Medical History / Comment(s): has history of epilepsy, hx grand mal seizures since childhood, migraines, acne, Last seizure was 07/28/22 History of Any Multi-Drug Resistant Organisms: None Reported, Unobtainable Past Surgical History: Adenoidectomy, Appendectomy, Cholecystectomy, Tonsillectomy Additional Past Surgical History / Comment(s): oral surgery. I & D CYST ON BACK 08/19/22. MULTIPLE STITCHES Past Anesthesia/Blood Transfusion Reactions: Previous Problems w/ Anesthesia Additional Past Anesthesia/Blood Transfusion Reaction / Comm: SLOW TO WAKE FROM ANESTHESIA" Past Psychological History: Anxiety, Depression Additional Psychological History / Comment(s): per pt-he was in special education classes thru out school(has some intellectual disabilty), speech impediment. able to read and write fine. hx cluster b disorder Smoking Status: Never smoker Past Alcohol Use History: Occasional Past Drug Use History: None Reported Additional Drug Use History / Comment(s): Denies any illicit drugs or any marij uana use - Past Family History Mother Family Medical History: Cancer Additional Family Medical History / Comment(s): breast cancer Medications and Allergies Home Medications Medication Instructions Recorded Confirmed Type carBAMazepine [TEGretol XR] 400 mg PO HS 10/19/18 04/04/23 History lamoTRIgine [LaMICtal] 200 mg PO BID #0 06/28/20 04/04/23 Rx carBAMazepine [TEGretol] 200 mg PO BID 10/10/20 04/04/23 History Cyclobenzaprine HCl 10 mg PO Q8H PRN 10/03/21 04/04/23 History PHENobarbitaL [Luminal] 129.6 mg PO HS 08/28/22 04/04/23 History Zonisamide [Zonegran] 400 mg PO HS 08/28/22 04/04/23 History Cariprazine HCl [Vraylar] 3 mg PO HS 12/10/22 04/04/23 History Ibuprofen [Motrin] 800 mg PO Q8H PRN 12/10/22 04/04/23 History LORazepam [Ativan] 0.5 mg PO BID PRN 12/10/22 04/04/23 History Midazolam [Nayzilam] 1 spray NASAL ONCE PRN 12/10/22 04/04/23 History Omeprazole [PriLOSEC] 20 mg PO DAILY 12/10/22 04/04/23 History FLUoxetine HCL 40 mg PO DAILY 15 Days #15 cap 12/13/22 04/04/23 Rx Allergies Allergy/AdvReac Type Severity Reaction Status Date / Time No Known Allergies Allergy Verified 04/03/23 20:59 Physical Exam Vitals: Vital Signs Temp Pulse Pulse Resp BP BP Pulse Ox 04/04/23 04:20 98.2 F 82 14 131/81 98 04/04/23 02:21 60 18 103/69 100 04/03/23 19:08 99.5 F 80 18 117/80 98 Intake and Output 04/03/23 04/04/23 04/04/23 22:59 06:59 14:59 Other: Weight 88.451 kg 82.355 kg PHYSICAL EXAMINATION: GENERAL: The patient is alert and oriented x3, not in any acute distress. Well developed, well nourished. HEENT: Pupils are round and equally reacting to light. EOMI. No scleral icterus. No conjunctival pallor. Normocephalic, atraumatic. No pharyngeal erythema. No thyromegaly. CARDIOVASCULAR: S1 and S2 present. No murmurs, rubs, or gallops. PULMONARY: Chest is clear to auscultation, no wheezing or crackles. ABDOMEN: Soft, nontender, nondistended, normoactive bowel sounds. No palpable organomegaly. MUSCULOSKELETAL: No joint swelling or deformity. EXTREMITIES: No cyanosis, clubbing, or pedal edema. NEUROLOGICAL: Gross neurological examination did not reveal any focal deficits. SKIN: No rashes. Results CBC & Chem 7: 04/04/23 09:33 04/04/23 09:33 Labs: Abnormal Lab Results - Last 24 Hours (Table) 04/03/23 04/04/23 Range/Units 21:45 09:33 Chloride 108 H (98-107) mmol/L Carbon Dioxide 19 L (22-30) mmol/L BUN 6 L (9-20) mg/dL Delta Bilirubin 0.4 H (0.0-0.2) mg/dL Total Protein 8.4 H (6.3-8.2) g/dL Ur Barbiturates Screen Detected H (NotDetected) Assessment and Plan Assessment: 1. Depression/suicidal ideation; your management 2. Seizure disorder; patient takes carbamazepine 200 mg twice a day and 400 mg at at bedtime - Lamictal 200 mg twice a day 3. Hypothyroidism; currently not on any thyroid replacement therapy 4. Gastroesophageal reflux disease; omeprazole 20 mg daily 5. Anxiety disorder; Ativan 0.5 mg twice a day
[2023-04-04] MEDS ORDERED: carBAMazepine 400 MG TAB.ER.12H PO SCH (21:00)
[2023-04-04] MEDS ORDERED: ZONISAMIDE 100 MG CAP PO SCH (21:00)
[2023-04-04] MEDS ORDERED: NON FORMULARY DRUG (Cariprazine Hcl [Vraylar] 3 MG Capsule) PO SCH (21:00)
[2023-04-04] MEDS: ZONISAMIDE 100 MG CAP PO SCH (21:13)
[2023-04-04] MEDS: carBAMazepine 400 MG TAB.ER.12H PO SCH (21:13)
[2023-04-04] MEDS: CARIPRAZINE HCL 3 MG PO SCH (21:14)
[2023-04-05] MEDS: LORazepam 0.5 MG TAB PO PRN (05:00)
[2023-04-05] MEDS: lamoTRIgine 100 MG TAB PO SCH ×2 (08:25→20:43)
[2023-04-05] MEDS: PANTOPRAZOLE 40 MG TABLET PO SCH (08:25)
[2023-04-05] MEDS: SERTRALINE 50 MG TAB PO SCH (08:25)
[2023-04-05] MEDS: carBAMazepine 200 MG TAB PO SCH ×2 (08:26→20:44)
--- NOTE | 2023-04-05 11:22 | P.PN ---
Progress Note - Text Progress Note Date: 04/05/23 Interval history: Patient was seen [wandering the hallways] and was directable and agreeable to speak with magazine writer. reports being angry at certain people on the unit but denies any thoughts of harming them or homicidal ideations At this time patient denies any suicidal intent or plan. Denies any Auditory or visual hallucinations. Patient denies any side effects from the medications and has been compliant with meds. Mental status exam: General Appearance: [Patient appears to be stated age, directable, and cooperative.] appears drowsy Behavior: [No agitated behavior. Patient is calm and directable] Speech: low rate Mood/Affect: Mood is"okay", affect is congruent and constricted. Suicidality/Homicidality: Patient denies having any suicidal or homicidal ideation intent or plan. Perceptions: Patient denies any auditory or visual hallucinations. Though content/process: [There is no evidence of any delusional thought content and thought process is linear and goal-directed.] Memory and concentration: AOX3, grossly intact for the purposes of this session Judgment and insight: improving mildly Assessment/Plan: Continue with current diagnosis. Patient continues to meet criteria for inpatient psychiatric admission for symptom stabilization and safety.[Patient will be maintained on current psychotropic medication regimen.] Monitor for medication compliance and for any psychotropic medication side effects. Will continue to monitor ongoing response to treatment. Encouraged participation in milieu.
[2023-04-05] MEDS: carBAMazepine 400 MG TAB.ER.12H PO SCH (20:44)
[2023-04-05] MEDS: CARIPRAZINE HCL 3 MG PO SCH (20:44)
[2023-04-05] MEDS: ZONISAMIDE 100 MG CAP PO SCH (20:44)
[2023-04-05 23:39] LABS: Chol/HDL Ratio 4.67 Ratio
[2023-04-06] MEDS: carBAMazepine 200 MG TAB PO SCH ×2 (08:01→20:23)
[2023-04-06] MEDS: lamoTRIgine 100 MG TAB PO SCH ×2 (08:02→20:23)
[2023-04-06] MEDS: SERTRALINE 50 MG TAB PO SCH (08:02)
[2023-04-06] MEDS: PANTOPRAZOLE 40 MG TABLET PO SCH (08:03)
--- NOTE | 2023-04-06 09:52 | P.PN ---
Progress Note - Text Interval history: Patient was seen [wandering the hallways] and was directable and agreeable to speak with writer editor. At this time patient denies any suicidal or homicidal ideations intent or plan. Denies any Auditory or visual hallucinations. Patient denies any side effects from the medications and has been compliant with meds. Mental status exam: General Appearance: [Patient appears to be stated age is alert, directable, and cooperative.] Psychomotor retardation. Appears drowsy Behavior: [No agitated behavior. Patient is calm and directable] Speech: Patient's speech is fluent and nonpressured. Mood/Affect: Mood is "tired", affect is congruent and constricted. Suicidality/Homicidality: Patient denies having any suicidal or homicidal ideation intent or plan. Perceptions: Patient denies any auditory or visual hallucinations. Though content/process: [There is no evidence of any delusional thought content and thought process is linear and goal-directed.] Memory and concentration: AOX3, grossly intact for the purposes of this session Judgment and insight: improving mildly Assessment/Plan: Continue with current diagnosis. Patient continues to meet criteria for inpatient psychiatric admission for symptom stabilization and safety.[Patient will be maintained on current psychotropic medication regimen.] Monitor for medication compliance and for any psychotropic medication side effects. Will continue to monitor ongoing response to treatment. Encouraged participation in milieu.
[2023-04-06] MEDS: ZONISAMIDE 100 MG CAP PO SCH (20:22)
[2023-04-06] MEDS: carBAMazepine 400 MG TAB.ER.12H PO SCH (20:23)
[2023-04-06] MEDS: CARIPRAZINE HCL 3 MG PO SCH (20:24)
[2023-04-07] MEDS: LORazepam 0.5 MG TAB PO PRN (04:32)
[2023-04-07] MEDS: lamoTRIgine 100 MG TAB PO SCH ×2 (08:27→20:37)
[2023-04-07] MEDS: SERTRALINE 50 MG TAB PO SCH (08:27)
[2023-04-07] MEDS: carBAMazepine 200 MG TAB PO SCH ×2 (08:27→20:37)
[2023-04-07] MEDS: PANTOPRAZOLE 40 MG TABLET PO SCH (08:27)
[2023-04-07] MEDS ORDERED: SERTRALINE 50 MG TAB PO STA (09:46)
--- NOTE | 2023-04-07 09:50 | P.PN ---
Progress Note - Text Progress Note Date: 04/07/23 Interval History: Patient was seen taking part in group today and was directable and agreeable to speak with financial underwriter in the office. Patient claims that he is doing a bit better today. He claims he talked to his and his family and claims that he is getting "mixed signals". He continues to have a constricted affect, not, was minimizing the suicide attempt. He was focused on discharge. He was fairly superficial today. Denied any overnight problems claimed that he slept okay. We spoke about increasing medications that she was okay with. At this time patient denies any current suicidal or homical ideations, intent or plan. Patient denies any auditory, visual hallucinations and denies any paranoia or delusions. Patient denies any side effects from the medications and has been compliant with meds. Mental Status Exam: General Appearance: Patient appears to be stated age is alert, directable, and attempts to cooperate. Patient appears to have fair hygiene and grooming. Behavior: Patient is seated without any agitated behavior. Psychomotor activity appears normal. appears less tired Speech: Patient's speech is fluent and nonpressured. Mildly dysarthric secondary to lack of dentition. Mood/Affect: Patient reports their mood is depressed, improving mildly, affect is constricted Suicidality/Homicidality: Patient denies having any homicidal ideation intent or plan. Denies any suicidal ideation, no intent or plan Perceptions: Patient denies any visual hallucinations and denies any auditory hallucinations Though content/process: There is no evidence of any delusional thought content and thought process is linear and goal-directed. concrete. Memory and concentration: AOX3, grossly intact for the purposes of this session. Judgment and insight: Chronically poor/impulsive, improving mildly IMPRESSIONS: Major depressive disorder, recurrent, severe, without psychotic features Borderline personality disorder Seizure disorder PLAN: -Patient is admitted under voluntary status to MHU for stabilization of psychiatric symptoms and safety. Patient signed adult voluntary form and medication consent and is placed in patient's chart. -Medications : increase zoloft 100 mg daily for depression/anxiety, continue vraylar as per home dose. Continue AED as perscribed by his neurologist. -Ativan and Haldol PRN for agitation/aggression -NRT - not needed as patitent does not smoke. -SW on board for discharge planning. Encourage patient to participate in groups to work on coping skills. likely discharge back home in 2-3 days.
[2023-04-07] MEDS: ZONISAMIDE 100 MG CAP PO SCH (20:37)
[2023-04-07] MEDS: carBAMazepine 400 MG TAB.ER.12H PO SCH (20:37)
[2023-04-07] MEDS: CARIPRAZINE HCL 3 MG PO SCH (21:34)
[2023-04-08] MEDS: lamoTRIgine 100 MG TAB PO SCH ×2 (08:26→21:03)
[2023-04-08] MEDS: carBAMazepine 200 MG TAB PO SCH ×2 (08:26→21:03)
[2023-04-08] MEDS: SERTRALINE 100 MG TAB PO SCH (08:27)
[2023-04-08] MEDS: PANTOPRAZOLE 40 MG TABLET PO SCH (08:27)
--- NOTE | 2023-04-08 10:43 | P.PN ---
Progress Note - Text Progress Note Date: 04/08/23 Interval History: Patient was seen taking part in group today and was directable and agreeable to speak with advertising copy writer in the office. Patient has been seen socializing on the unit. Patient continues to minimize his suicide attempt, superficial insight and judgment. Fairly focused on discharge day. He was fairly concrete when answering questions. States that he is doing better with medications and guessed again asked questions as to why the medication need to be increased. He did appear to be fairly slowed in his responses, claims that he is going to some groups. was minimizing the suicide attempt. He was focused on discharge. He was fairly superficial today. claims that he slept fairly. At this time patient denies any current suicidal or homical ideations, intent or plan. Patient denies any auditory, visual hallucinations and denies any paranoia or delusions. Patient denies any side effects from the medications and has been compliant with meds. Mental Status Exam: General Appearance: Patient appears to be stated age is alert, directable, and attempts to cooperate. Patient appears to have fair hygiene and grooming. Behavior: Patient is seated without any agitated behavior. Psychomotor activity appears normal. Speech: Patient's speech is fluent and nonpressured. Mildly dysarthric secondary to lack of dentition. Mood/Affect: Patient reports their mood is improving mildly, affect is constricted, improving Suicidality/Homicidality: Patient denies having any homicidal ideation intent or plan. Denies any suicidal ideation, no intent or plan Perceptions: Patient denies any visual hallucinations and denies any auditory hallucinations Though content/process: There is no evidence of any delusional thought content and thought process is linear and goal-directed. concrete. Memory and concentration: AOX3, grossly intact for the purposes of this session. Judgment and insight: Chronically poor/impulsive, improving mildly IMPRESSIONS: Major depressive disorder, recurrent, severe, without psychotic features Borderline personality disorder Seizure disorder PLAN: -Patient is admitted under voluntary status to MHU for stabilization of psychiatric symptoms and safety. Patient signed adult voluntary form and medication consent and is placed in patient's chart. -Medications : zoloft 100 mg daily for depression/anxiety. Continue AED as perscribed by his neurologist. -Ativan and Haldol PRN for agitation/aggression -NRT - not needed as patitent does not smoke. -SW on board for discharge planning. Encourage patient to participate in groups to work on coping skills. likely discharge back home tomorrow if patient improves. SW to ensure home envt is safe before discharge
[2023-04-08] MEDS: ZONISAMIDE 100 MG CAP PO SCH (21:03)
[2023-04-08] MEDS: CARIPRAZINE HCL 3 MG PO SCH (21:03)
[2023-04-08] MEDS: carBAMazepine 400 MG TAB.ER.12H PO SCH (21:03)
[2023-04-09 06:59] VITALS: BP 97/62; PULSE 65; RESP 16; TEMP 97.5
[2023-04-09] MEDS: SERTRALINE 100 MG TAB PO SCH (08:40)
[2023-04-09] MEDS: lamoTRIgine 100 MG TAB PO SCH (08:41)
[2023-04-09] MEDS: carBAMazepine 200 MG TAB PO SCH (08:41)
[2023-04-09] MEDS: PANTOPRAZOLE 40 MG TABLET PO SCH (08:41)
--- NOTE | 2023-04-09 11:15 | P.DS ---
Providers Date of admission: 04/04/23 02:32 Expected date of discharge: 04/09/23 Attending physician: Blane Paul MD Consults: 04/04/23 02:54 Consult Physician Routine Consulting Provider: Hoang Mistry Consult Reason/Comments: For H & P for Medical Follow Up Do you want consulting provider notified?: Yes, Notify in am Primary care physician: Ana Maria Chapin - Discharge Diagnosis(es) (1) Major depressive disorder, recurrent severe without psychotic features Current Visit: Yes Status: Acute Priority: High (2) Borderline personality disorder Current Visit: Yes Status: Acute Priority: High (3) Seizure disorder Current Visit: Yes Status: Acute Priority: Medium Hospital Course: Admission HPI: Admission note was completed by [lead technical writer] "[Patient is a 33-year-old male with significant history of seizure disorder, depressive disorder, and borderline personality disorder who presents for hospital with a chief complaint of suicidal ideation. Patient presented to the hospital yesterday and was evaluated in the ER. Patient has a long history of several psychiatric admissions, has been following up with [facility], has a significant history of seizure disorder depression and borderline personality disorder. Patient apparently attempted suicide by going into the river and having a plan to jump off the bridge. Patient was admitted voluntarily to the mental health unit last night in seen this morning. Patient claims that he is been feeling depressed, endorsed financial and several "life stressors". He was fairly vague about his life stressors however. States that he does not know how he is going to be able to support his family with his income. He claims that he went into the river yesterday near the [facility] with a plan to kill himself. He claims that he went up to his knees in the water and then "thought about my son and turned back a round". He claims he came to the hospital afterwards. States that he has been having depression and anxiety, claims he has been taking Prozac however believes it is not helping him any longer. Claims to be taking his other medications as well. He is not endorsing any significant symptoms of bipolar disorder or mood swings. He denies any symptoms of zac or hypomania. He denies any racing th oughts, grandiosity, or increased goal-directed activity. He reports no auditory or visual hallucinations. He is continuing to have suicidal thoughts however these are passive now intent or plan, denies any homicidal ideations. He denies any paranoia or other delusions. claims that he is not using any rec drugs.]" Hospital course: Upon admission to the unit patient was [directable and agreeable to commence treatment and signed adult voluntary form]. Patient got along well with other patients on the unit and followed unit protocol. Patient was compliant with the medications and denied any side effects throughout hospital course. Patient was started on zoloft and increased to a dose of 100 mg daily for mood/anxiety, he was also continued on his home dose of AED which he is being followed by a neurologist for. Patient spoke of [his] stressors and engaged in therapy both group and individual. Patient was also seen by medical team for history and physical exam. [] Throughout the course of the hospitalization patient gradually improved with regards to [mood, anxiety], suicidal thoughts, sleep and [returned back to their baseline level of functioning]. On the day of discharge patient denied any suicidal or homicidal ideations intent or plan denied any auditory or visual hallucinations. Patient endorsed wanting to live for [his health and family and son.] The patient denied any access to guns or weapons. Patient denied any paranoia and did not endorse any delusions. Patient does [not] have a significant history of substance abuse [and] was counseled on abstaining from all substances including alcohol and marijuana. Patient was also counseled on the medications and need for regular compliance and was encouraged to follow-up with their outpatient appointment for mental health and also for primary care. [Prior to discharge a family meeting will be arranged by sr. social media & mobile manager to answer any questions and ensure safety upon discharge.] patient will be picked up by his today and continue outpatient treatment. Mental status exam: General Appearance: Patient appears to be [wearing glasses, ]stated age is alert, pleasant, and cooperative. Patient is in no acute distress and has improved hygiene and grooming Behavior: Patient is calmly seated without any agitated behavior. Speech: Patient's speech is fluent and nonpressured. Mood/Affect: Patient reports their mood is "[ok]", affect is congruent and constricted Suicidality/Homicidality: Patient denies having any suicidal or homicidal ideation intent or plan. Perceptions: Patient denies any auditory or visual hallucinations. Though content/process: There is no evidence of any delusional thought content and thought process is linear and goal-directed. [more future oriented]. concrete. Memory and concentration: AOX3, grossly intact for the purposes of this session. Can spell "WORLD" backwards correctly. Judgment and insight: [chronically poor/impulsive, however has] improved with guarded prognosis Impression: []Major depressive disorder recurrent severe without psychotic features borderline personality disorder seizure disorder Plan: -Continue with discharge today as patient has improved and stabilized psychiatrically and is not currently an imminent threat to [himself] and/or others. [Patient will remain at chronically elevated risk for harm to self and/or others due to his impulsivity and chronic mental illness and poor distress tolerance.] -Continue medications: zoloft 100 mg daily for mood/anxiety. -Patient was counseled on the need for medication compliance and appropriate follow-up at mental health and also primary care for medical issues. Patient verbalized understanding and agreed. -Social work to [arrange for and conduct family meeting to ensure safety upon discharge and answer any questions/concerns.] Social work also to arrange for patients follow up appointments for psychiatric care along with follow up with primary care provider. -Patient counseled on abstaining from recreational drugs and marijuana and alcohol. Was informed/educated on the adverse effects on their physical and mental health. [Patient verbally agreed and understood]. -Patient was instructed to return to the hospital or seek immediate medical care if their psychiatric or medical symptoms do worsen or reoccur. Allergies Allergy/AdvReac Type Severity Reaction Status Date / Time No Known Allergies Allergy Verified 04/03/23 20:59 Laboratory Results WBC 7.0 k/uL (3.8-10.6) 04/04/23 09:33 RBC 4.95 m/uL (4.30-5.90) 04/04/23 09:33 Hgb 15.7 gm/dL (13.0-17.5) 04/04/23 09:33 Hct 45.9 % (39.0-53.0) 04/04/23 09:33 MCV 92.7 fL (80.0-100.0) 04/04/23 09:33 MCH 31.7 pg (25.0-35.0) 04/04/23 09:33 MCHC 34.2 g/dL (31.0-37.0) 04/04/23 09:33 RDW 12.4 % (11.5-15.5) 04/04/23 09:33 Plt Count 193 k/uL (150-450) 04/04/23 09:33 MPV 8.3 04/04/23 09:33 Neutrophils % 49 % 04/04/23 09:33 Lymphocytes % 33 % 04/04/23 09:33 Monocytes % 5 % 04/04/23 09:33 Eosinophils % 9 % 04/04/23 09:33 Basophils % 0 % 04/04/23 09:33 Neutrophils # 3.5 k/uL (1.3-7.7) 04/04/23 09:33 Lymphocytes # 2.3 k/uL (1.0-4.8) 04/04/23 09:33 Monocytes # 0.4 k/uL (0-1.0) 04/04/23 09:33 Eosinophils # 0.7 k/uL (0-0.7) 04/04/23 09:33 Basophils # 0.0 k/uL (0-0.2) 04/04/23 09:33 Sodium 140 mmol/L (137-145) 04/04/23 09:33 Potassium 4.1 mmol/L (3.5-5.1) 04/04/23 09:33 Chloride 108 mmol/L (98-107) H 04/04/23 09:33 Carbon Dioxide 19 mmol/L (22-30) L 04/04/23 09:33 Anion Gap 13 mmol/L 04/04/23 09:33 BUN 6 mg/dL (9-20) L 04/04/23 09:33 Creatinine 0.93 mg/dL (0.66-1.25) 04/04/23 09:33 Est GFR (CKD-EPI)AfAm >90 (>60 ml/min/1.73 sqM) 04/04/23 09:33 Est GFR (CKD-EPI)NonAf >90 (>60 ml/min/1.73 sqM) 04/04/23 09:33 Glucose 80 mg/dL (74-99) 04/04/23 09:33 Calcium 9.4 mg/dL (8.4-10.2) 04/04/23 09:33 Total Bilirubin 0.6 mg/dL (0.2-1.3) 04/04/23 09:33 Conjugated Bilirubin 0.0 mg/dL (0.0-0.3) 04/04/23 09:33 Unconjugated Bilirubin 0.2 mg/dL (0.0-1.1) 04/04/23 09:33 Delta Bilirubin 0.4 mg/dL (0.0-0.2) H 04/04/23 09:33 AST 28 U/L (17-59) 04/04/23 09:33 ALT 18 U/L (4-49) 04/04/23 09:33 Alkaline Phosphatase 100 U/L (38-126) 04/04/23 09:33 Total Protein 8.4 g/dL (6.3-8.2) H 04/04/23 09:33 Albumin 5.0 g/dL (3.5-5.0) 04/04/23 09:33 Triglycerides 137.00 mg/dL (0.00-149.00) 04/05/23 10:41 Cholesterol 157.00 mg/dL (0.00-200.00) 04/05/23 10:41 LDL Cholesterol Direct Cancelled 04/04/23 09:33 LDL Cholesterol, Calc 96.0 mg/dL (0.0-131.0) 04/05/23 10:41 VLDL Cholesterol, Calc 27.40 mg/dL (5.00-40.00) 04/05/23 10:41 HDL Cholesterol 33.60 mg/dL (40.00-60.00) L 04/05/23 10:41 Cholesterol/HDL Ratio 4.67 Ratio 04/05/23 10:41 TSH 0.763 mIU/L (0.465-4.680) 04/05/23 10:41 Urine Color Colorless 04/03/23 21:45 Urine Appearance Clear (Clear) 04/03/23 21:45 Urine pH 6.5 (5.0-8.0) 04/03/23 21:45 Ur Specific [place] 1.003 (1.001-1.035) 04/03/23 21:45 Urine Protein Negative (Negative) 04/03/23 21:45 Urine Glucose (UA) Negative (Negative) 04/03/23 21:45 Urine Ketones Negative (Negative) 04/03/23 21:45 Urine Blood Negative (Negative) 04/03/23 21:45 Urine Nitrite Negative (Negative) 04/03/23 21:45 Urine Bilirubin Negative (Negative) 04/03/23 21:45 Urine Urobilinogen <2.0 mg/dL (<2.0) 04/03/23 21:45 Ur Leukocyte Esterase Negative (Negative) 04/03/23 21:45 Urine Opiates Screen Not Detected (NotDetected) 04/03/23 21:45 Ur Oxycodone Screen Not Detected (NotDetected) 04/03/23 21:45 Urine Methadone Screen Not Detected (NotDetected) 04/03/23 21:45 Ur Propoxyphene Screen Not Detected (NotDetected) 04/03/23 21:45 Ur Barbiturates Screen Detected (NotDetected) H 04/03/23 21:45 Carbamazepine 10.2 ug/mL 04/04/23 09:33 U Tricyclic Antidepress Not Detected (NotDetected) 04/03/23 21:45 Ur Phencyclidine Scrn Not Detected (NotDetected) 04/03/23 21:45 Ur Amphetamines Screen Not Detected (NotDetected) 04/03/23 21:45 U Methamphetamines Scrn Not Detected (NotDetected) 04/03/23 21:45 U Benzodiazepines Scrn Not Detected (NotDetected) 04/03/23 21:45 Urine Cocaine Screen Not Detected (NotDetected) 04/03/23 21:45 U Marijuana (THC) Screen Not Detected (NotDetected) 04/03/23 21:45 Coronavirus (PCR) Not Detected (Not Detectd) 04/04/23 01:19 Vital Signs Temp 97.5 F L 04/09/23 05:38 Pulse 65 04/09/23 05:38 Resp 16 04/09/23 05:38 BP 97/62 04/09/23 05:38 Pulse Ox 98 04/09/23 05:38 FiO2 Patient Condition at Discharge: Stable Plan - Discharge Summary Discharge Rx Participant: Yes New Discharge Prescriptions: New Sertraline [Zoloft] 100 mg PO DAILY 30 Days #30 tab Continue carBAMazepine [TEGretol XR] 400 mg PO HS lamoTRIgine [LaMICtal] 200 mg PO BID #0 carBAMazepine [TEGretol] 200 mg PO BID Omeprazole [PriLOSEC] 20 mg PO DAILY Zonisamide [Zonegran] 400 mg PO HS PHENobarbitaL [Luminal] 129.6 mg PO HS Cariprazine HCl [Vraylar] 3 mg PO HS Discontinued Cyclobenzaprine HCl 10 mg PO Q8H PRN PRN Reason: Muscle Spasm Midazolam [Nayzilam] 1 spray NASAL ONCE PRN PRN Reason: Seizures LORazepam [Ativan] 0.5 mg PO BID PRN PRN Reason: Anxiety Ibuprofen [Motrin] 800 mg PO Q8H PRN PRN Reason: Pain Or Fever > 100.5 FLUoxetine HCL 40 mg PO DAILY 15 Days #15 cap Discharge Medication List carBAMazepine [TEGretol XR] 400 mg PO HS 10/19/18 [History] lamoTRIgine [LaMICtal] 200 mg PO BID #0 06/28/20 [Rx] carBAMazepine [TEGretol] 200 mg PO BID 10/10/20 [History] PHENobarbitaL [Luminal] 129.6 mg PO HS 08/28/22 [History] Zonisamide [Zonegran] 400 mg PO HS 08/28/22 [History] Cariprazine HCl [Vraylar] 3 mg PO HS 12/10/22 [History] Omeprazole [PriLOSEC] 20 mg PO DAILY 12/10/22 [History] Sertraline [Zoloft] 100 mg PO DAILY 30 Days #30 tab 04/09/23 [Rx] Follow up Appointment(s)/Referral(s): [facility] - 04/10/23 2:30 pm Ana Maria Samson MD [Primary Care Provider] - 1-2 days Patient Instructions/Handouts: Depression (DC) Activity/Diet/Wound Care/Special Instructions: Avoid the use of street drugs and alcohol. Take all medications as prescribed. When you are in need of refills on your medications, please contact your medical provider and/or outpatient psychiatrist to have this done. Please go to scheduled outpatient appointments for aftercare treatment. If symptoms return or become worse, call the crisis line at and/or go to the nearest emergency room for evaluation. Discharge Disposition: HOME SELF-CARE
== END 2023-04-09 11:55 | disposition home or self-care (01) | DRG 885 ==
LOC: EC 16:55 → 3MHU 04-04 02:32
PROVIDERS: ADMIT Psychiatry & Neurology Psychiatry; ATTEND Psychiatry & Neurology Psychiatry
DX: F33.2 Major depressive disorder, recurrent severe without psychotic features (principal); R45.851 Suicidal ideations; F41.9 Anxiety disorder, unspecified; F60.3 Borderline personality disorder; G40.409 Other generalized epilepsy and epileptic syndromes, not intractable, without status epilepticus; K21.9 Gastro-esophageal reflux disease without esophagitis; E03.9 Hypothyroidism, unspecified; Z79.899 Other long term (current) drug therapy; Z71.89 Other specified counseling; Z28.310 Unvaccinated for COVID-19; Z28.21 Immunization not carried out because of patient refusal; Z20.822 Contact with and (suspected) exposure to COVID-19
CPT/HCPCS: 80053; 80061; 80156; 80306; 81003; 82075; 82248; 84443; 85025; 87635; 99285

== ENCOUNTER → 2023-07-02 | Outpatient (CLI) | payer MEDICARE, OTHER ==
[2023-07-02 16:09] LABS: Basophils # (A) 0.07 X 10*3/uL (0.00-0.10); Basophils % (A) 1.4 %; Eosinophils # (A) 0.62 X 10*3/uL (0.04-0.35); Eosinophils % (A) 12.2 %; HCT 44.1 % (39.6-50.0); HGB 14.6 d/dL (13.0-17.0); Lymphocytes # (A) 1.91 X 10*3/uL (0.90-5.00); Lymphocytes % (A) 37.5 %; MCH 31.9 pg (27.0-32.0); MCHC 33.1 d/dL (32.0-37.0); MCV 96.3 FL (80.0-97.0); Mean Platelet Volume 9.1 FL (9.5-12.2); Monocytes # (A) 0.33 X 10*3/uL (0.20-1.00); Monocytes % (A) 6.5 %; NRBC Per 100 WBC 0 X 10*3/uL (0.00-0.01); Neutrophils # (A) 2.16 X 10*3/uL (1.80-7.70); Neutrophils % (A) 42.2 %; Platelet Count 188 X 10*3/uL (140-440); RBC 4.58 X 10*6/uL (4.40-5.60); RDW 12.2 % (11.5-14.5)
[2023-07-02 16:15] LABS: Thyroid Peroxidase Antibodies 9.3 U/mL (0.0-33.0)
[2023-07-02 16:23] LABS: ALT 11 U/L (10-49); AST 15 U/L (14-35); Albumin 4.7 d/dL (3.8-4.9); Albumin/Globulin Ratio 1.74 Ratio (1.60-3.17); Alkaline Phosphatase 108 U/L (41-126); BUN/Creat Ratio 9.42 Ratio (12.00-20.00); Blood Urea Nitrogen 11.3 mg/dL (9.0-27.0); Calcium 9.7 mg/dL (8.7-10.3); Carbon Dioxide 24.2 mmol/L (21.6-31.8); Chloride 109 mmol/L (96-109); Chol/HDL Ratio 5.04 Ratio; Creatine Kinase 68 U/L (35-257); Globulin 2.7 d/dL (1.6-3.3); Glucose 95 mg/dL (70-110); LDL Cholesterol,Calculated 119.5 mg/dL (0.0-131.0); Potassium 4.3 mmol/L (3.5-5.5); Sodium 142 mmol/L (135-145); Total Bilirubin 0.3 mg/dL (0.3-1.2); Total Protein 7.4 d/dL (6.2-8.2)
[2023-07-03 11:55] LABS: ACTH 17.1 pg/mL (0.00-45.99)
== END | disposition home or self-care (01) ==
LOC: LABWHC1 08:33
PROVIDERS: ATTEND Family Medicine
DX: Z00.01 Encounter for general adult medical examination with abnormal findings (principal); Z13.220 Encounter for screening for lipoid disorders; G47.10 Hypersomnia, unspecified; G40.802 Other epilepsy, not intractable, without status epilepticus; R47.1 Dysarthria and anarthria
CPT/HCPCS: 36415; 80053; 80061; 82024; 82533; 82550; 82607; 84443; 85025; 86376

== ENCOUNTER 2023-09-09 17:33 | Emergency (ER) | payer MEDICARE, OTHER ==
[2023-09-09 18:07] VITALS: RESP 18; TEMP 97.9
--- NOTE | 2023-09-09 19:50 | ED ---
General Adult HPI - General Chief complaint: Psychiatric Symptoms Stated complaint: Mental Health Time Seen by Provider: 09/09/23 18:50 Source: patient, RN notes reviewed, old records reviewed Mode of arrival: ambulatory Limitations: no limitations - History of Present Illness Initial comments: This is a 33-year-old male who presents to the emergency department stating that for the last 4 days she's been suicidal. Patient states she's been constipating cutting himself. Patient states nothing set it off that he knows of. Patient denies any break up for problems with her job for any friends. Patient states she is not taking any pills. Patient denies alcohol patient denies any drug use. Patient denies any physical complaints today. Patient denies any fever chills or cough. Patient is chest pain or difficulty breathing. - Related Data Home Medications Medication Instructions Recorded Confirmed carBAMazepine [TEGretol XR] 400 mg PO HS 10/19/18 04/04/23 carBAMazepine [TEGretol] 200 mg PO BID 10/10/20 04/04/23 PHENobarbitaL [Luminal] 129.6 mg PO HS 08/28/22 04/04/23 Zonisamide [Zonegran] 400 mg PO HS 08/28/22 04/04/23 Cariprazine HCl [Vraylar] 3 mg PO HS 12/10/22 04/04/23 Omeprazole [PriLOSEC] 20 mg PO DAILY 12/10/22 04/04/23 Previous Rx's Medication Instructions Recorded lamoTRIgine [LaMICtal] 200 mg PO BID #0 06/28/20 Sertraline [Zoloft] 100 mg PO DAILY 30 Days #30 tab 04/09/23 Allergies Allergy/AdvReac Type Severity Reaction Status Date / Time No Known Allergies Allergy Verified 04/03/23 20:59 Review of Systems ROS Statement: Those systems with pertinent positive or pertinent negative responses have been documented in the HPI. ROS Other: All systems not noted in ROS Statement are negative. Past Medical History Past Medical History: GERD/Reflux, Seizure Disorder, Skin Disorder, Thyroid Disorder Additional Past Medical History / Comment(s): has history of epilepsy, hx grand mal seizures since childhood, migraines, acne, Last seizure was 07/28/22 History of Any Multi-Drug Resistant Organisms: None Reported, Unobtainable Past Surgical History: Adenoidectomy, Appendectomy, Cholecystectomy, Tonsillectomy Additional Past Surgical History / Comment(s): oral surgery. I & D CYST ON BACK 08/19/22. MULTIPLE STITCHES Past Anesthesia/Blood Transfusion Reactions: Previous Problems w/ Anesthesia Additional Past Anesthesia/Blood Transfusion Reaction / Comment(s): SLOW TO WAKE FROM ANESTHESIA" Past Psychological History: Anxiety, Depression Smoking Status: Never smoker Past Alcohol Use History: Occasional Past Drug Use History: None Reported - Past Family History Mother Family Medical History: Cancer Additional Family Medical History / Comment(s): breast cancer General Exam - General Exam Comments Initial Comments: GENERAL: Patient is well-developed and well-nourished. Patient is nontoxic and well- hydrated and is in mild distress. ENT: Neck is soft and supple. No significant lymphadenopathy is noted. Oropharynx is clear. Moist mucous membranes. Neck has full range of motion without eliciting any pain. EYES: The sclera were anicteric and conjunctiva were pink and moist. Extraocular movements were intact and pupils were equal round and reactive to light. Eyelids were unremarkable. PULMONARY: Unlabored respirations. Good breath sounds bilaterally. No audible rales rh onchi or wheezing was noted. CARDIOVASCULAR: There is a regular rate and rhythm without any murmurs gallops or rubs. ABDOMEN: Soft and nontender with normal bowel sounds. SKIN: Skin is clear with no lesions or rashes and otherwise unremarkable. NEUROLOGIC: Patient is alert and oriented x3. Cranial nerves II through XII are grossly intact. Motor and sensory are also intact. Normal speech, volume and content. Symmetrical smile. MUSCULOSKELETAL: Normal extremities with adequate strength and full range of motion. No lower extremity swelling or edema. No calf tenderness. LYMPHATICS: No significant lymphadenopathy is noted PSYCHIATRIC: Patient states she's been very depressed has been contacted putting suicide. Patient states his plan was to cut himself with a knife. Limitations: no limitations Course Vital Signs 09/09/23 18:05 Temperature 97.9 F Pulse Rate 72 Respiratory 18 Rate Blood Pressure 124/77 O2 Sat by Pulse 99 Oximetry Medical Decision Making - Medical Decision Making Was pt. sent in by a medical professional or institution (, PA, ABSORPTION PLANT OPERATOR HELPER, urgent care, hospital, or group home...) When possible be specific @ -No Did you speak to anyone other than the patient for history (EMS, parent, family, police, friend...)? What history was obtained from this source @ -No Did you review nursing and triage notes (agree or disagree)? Why? @ -I reviewed and agree with nursing and triage notes Were old charts reviewed (outside hosp., previous admission, EMS record, old EKG, old radiological studies, urgent care reports/EKG's, group home records)? Report findings @ -I reviewed prior charts prior lab work on this patient Differential Diagnosis (chest pain, altered mental status, abdominal pain women, abdominal pain men, vaginal bleeding, weakness, fever, dyspnea, syncope, headache, dizziness, GI bleed, back pain, seizure, CVA, palpatations, mental health, musculoskeletal)? @ -Differential Mental Health Depression, anxiety, bipolar, psychosis, schizophrenia, borderline personality, situational depression, adjustment disorder, behavioral disorder, brain tumor, malingering, substance abuse, encephalopathy, medication reaction, dementia, hypothyroidism, degenerative neurologic disorder, lupus.... This is not meant to be all-inclusive list EKG interpreted by me (3pts min.). @ -As above X-rays interpreted by me (1pt min.). @ -None done CT interpreted by me (1pt min.). @ -None done U/S interpreted by me (1pt. min.). @ -None done What testing was considered but not performed or refused? (CT, X-rays, U/S, labs)? Why? @ -None What meds were considered but not given or refused? Why? @ -None Did you discuss the management of the patient with other professionals (professionals i.e. , PA, ABSORPTION PLANT OPERATOR HELPER, lab, RT, psych nurse, social service manager, runner on, teacher, chief wellness officer, shoe caser)? Give summary @ -Spoke with the EPS nurse after she evaluated the patient and he would not state that he was suicidal to the psychiatric nurse I spoke with him and he again denied suicidal ideations at this time Was smoking cessation discussed for >3mins.? @ -No Was critical care preformed (if so, how long)? @ -No Were there social determinants of health that impacted care today? How? (Homelessness, low income, unemployed, alcoholism, drug addiction, transportation, low edu. Level, literacy, decrease access to med. care, correction, rehab)? @ -No Was there de-escalation of care discussed even if they declined (Discuss DNR or withdrawal of care, Hospice)? DNR status @ -No What co-morbidities impacted this encounter? (DM, HTN, Smoking, COPD, CAD, Cancer, CVA, ARF, Chemo, Hep., AIDS, mental health diagnosis, sleep apnea, morbid obesity)? @ -None Was patient admitted / discharged? Hospital course, mention meds given and route, prescriptions, significant lab abnormalities, going to OR and other pertinent info. @ -Patient was given a safety plan that he agreed with him he stated he would not hurt himself and he was safe to go home. Patient stated he got an argument with his and so that depressed and so he was upset at the time he came in. He is no longer acceptable not be hurting himself Undiagnosed new problem with uncertain prognosis? @ -No Drug Therapy requiring intensive monitoring for toxicity (Heparin, Nitro, Insulin, Cardizem)? @ -No Were any procedures done? @ -No Diagnosis/symptom? @ -Situational depression Acute, or Chronic, or Acute on Chronic? @ -Acute Uncomplicated (without systemic symptoms) or Complicated (systemic symptoms)? @ -Complicated Side effects of treatment? @ -No Exacerbation, Progression, or Severe Exacerbation? @ -No Poses a threat to life or bodily function? How? (Chest pain, [place], [place], pneumonia, PE, COPD, DKA, ARF, appy, cholecystitis, CVA, Diverticulitis, Homicidal, Suicidal, threat to staff... and all critical care pts) @ -No Disposition Clinical Impression: Situational depression Disposition: HOME SELF-CARE Instructions (If sedation given, give patient instructions): Depression (ED) Is patient prescribed a controlled substance at d/c from ED?: No Referrals: Ana Maria Samson MD [Primary Care Provider] - 1-2 days Time of Disposition: 20:40
[2023-09-09 21:03] VITALS: BP 134/78; PULSE 80
[2023-09-09 21:56] LABS: Amphetamine Screen,Urine Not Detected (NotDetected); Barbiturate Screen,Urine Detected (NotDetected); Benzodiazepines Screen,Urine Not Detected (NotDetected); Cocaine Screen,Urine Not Detected (NotDetected); Methadone Screen, Urine Not Detected (NotDetected); Opiate Screen,Urine Not Detected (NotDetected); Oxycodone Screen, Urine Not Detected (NotDetected); Phencyclidine Screen,Urine Not Detected (NotDetected); Tricyclic Antidepressant,Urine Not Detected (NotDetected); Urn Cannabinoid Scrn Not Detected (NotDetected)
== END 2023-09-09 21:00 | disposition home or self-care (01) ==
LOC: EC 17:33
DX: F43.21 Adjustment disorder with depressed mood (principal); K21.9 Gastro-esophageal reflux disease without esophagitis; F41.9 Anxiety disorder, unspecified; F32.A Depression, unspecified; Z79.899 Other long term (current) drug therapy
CPT/HCPCS: 80306; 82075; 99285

== ENCOUNTER 2023-12-31 12:49 | Inpatient (IN) | payer MEDICAID, MEDICARE ==
--- NOTE | 2023-12-31 13:50 | ED ---
General Adult HPI - General Chief complaint: Psychiatric Symptoms Stated complaint: Mental Health Time Seen by Provider: 12/31/23 12:55 Source: patient, RN notes reviewed, old records reviewed Mode of arrival: ambulatory Limitations: no limitations - History of Present Illness Initial comments: This is a 33-year-old male who presents to the emergency department stating he is suicidal. Police brought the patient in amputation time. Patient states he was going to jump in front of traffic after he got an argument with his . Patient states his kicked him out of the house and he has no place to go and if he went to his mother's he would definitely commit suicide. Patient denies any drug or alcohol use. Patient denies any physical complaints today. - Related Data Home Medications Medication Instructions Recorded Confirmed carBAMazepine [TEGretol XR] 400 mg PO HS 10/19/18 04/04/23 carBAMazepine [TEGretol] 200 mg PO BID 10/10/20 04/04/23 PHENobarbitaL [Luminal] 129.6 mg PO HS 08/28/22 04/04/23 Zonisamide [Zonegran] 400 mg PO HS 08/28/22 04/04/23 Cariprazine HCl [Vraylar] 3 mg PO HS 12/10/22 04/04/23 Omeprazole [PriLOSEC] 20 mg PO DAILY 12/10/22 04/04/23 Previous Rx's Medication Instructions Recorded lamoTRIgine [LaMICtal] 200 mg PO BID #0 06/28/20 Sertraline [Zoloft] 100 mg PO DAILY 30 Days #30 tab 04/09/23 Allergies Allergy/AdvReac Type Severity Reaction Status Date / Time No Known Allergies Allergy Verified 12/31/23 12:56 Review of Systems ROS Statement: Those systems with pertinent positive or pertinent negative responses have been documented in the HPI. ROS Other: All systems not noted in ROS Statement are negative. Past Medical History Past Medical History: GERD/Reflux, Seizure Disorder, Skin Disorder, Thyroid Disorder Additional Past Medical History / Comment(s): has history of epilepsy, hx grand mal seizures since childhood, migraines, acne, Last seizure was 07/28/22 History of Any Multi-Drug Resistant Organisms: None Reported, Unobtainable Past Surgical History: Adenoidectomy, Appendectomy, Cholecystectomy, Tonsillectomy Additional Past Surgical History / Comment(s): oral surgery. I & D CYST ON BACK 08/19/22. MULTIPLE STITCHES Past Anesthesia/Blood Transfusion Reactions: Previous Problems w/ Anesthesia Additional Past Anesthesia/Blood Transfusion Reaction / Comment(s): SLOW TO WAKE FROM ANESTHESIA" Past Psychological History: Anxiety, Depression Smoking Status: Never smoker Past Alcohol Use History: Occasional Past Drug Use History: None Reported - Past Family History Mother Family Medical History: Cancer Additional Family Medical History / Comment(s): breast cancer General Exam - General Exam Comments Initial Comments: GENERAL: Patient is well-developed and well-nourished. Patient is nontoxic and well- hydrated and is in no acute distress. ENT: Neck is soft and supple. No significant lymphadenopathy is noted. Oropharynx is clear. Moist mucous membranes. Neck has full range of motion without eliciting any pain. EYES: The sclera were anicteric and conjunctiva were pink and moist. Extraocular movements were intact and pupils were equal round and reactive to light. Eyelids were unremarkable. PULMONARY: Unlabored respirations. Good breath sounds bilaterally. No audible rales rhonchi or wheezing was noted. CARDIOVASCULAR: There is a regular rate and rhythm without any murmurs gallops or rubs. ABDOMEN: Soft and nontender with normal bowel sounds. SKIN: Skin is clear with no lesions or rashes and otherwise unremarkable. NEUROLOGIC: Patient is alert and oriented x3. Cranial nerves II through XII are grossly intact. Motor and sensory are also intact. Normal speech, volume and content. Symmetrical smile. MUSCULOSKELETAL: Normal extremities with adequate strength and full range of motion. LYMPHATICS: No significant lymphadenopathy is noted PSYCHIATRIC: Patient states he is suicidal and wants to jump in front of traffic. Limitations: no limitations Course Vital Signs 12/31/23 12:51 Temperature 97.9 F Pulse Rate 67 Respiratory 18 Rate Blood Pressure 130/83 O2 Sat by Pulse 100 Oximetry Medical Decision Making - Medical Decision Making Was pt. sent in by a medical professional or institution (, PA, SECRETARY OF POLICE, urgent care, hospital, or penitentiary...) When possible be specific @ -Patient was brought in by the police Did you speak to anyone other than the patient for history (EMS, parent, family, police, friend...)? What history was obtained from this source @ -Police gave us the history of why the patient came in. Did you review nursing and triage notes (agree or disagree)? Why? @ -I reviewed and agree with nursing and triage notes Were old charts reviewed (outside hosp., previous admission, EMS record, old EKG, old radiological studies, urgent care reports/EKG's, penitentiary records)? Report findings @ -I reviewed old charts and this patient Differential Diagnosis (chest pain, altered mental status, abdominal pain women, abdominal pain men, vaginal bleeding, weakness, fever, dyspnea, syncope, headache, dizziness, GI bleed, back pain, seizure, CVA, palpatations, mental health, musculoskeletal)? @ -Differential Mental Health Depression, anxiety, bipolar, psychosis, schizophrenia, borderline personality, situational depression, adjustment disorder, behavioral disorder, brain tumor, malingering, substance abuse, encephalopathy, medication reaction, dementia, hypothyroidism, degenerative neurologic disorder, lupus.... This is not meant to be all-inclusive list EKG interpreted by me (3pts min.). @ -As above X-rays interpreted by me (1pt min.). @ -None done CT interpreted by me (1pt min.). @ -None done U/S interpreted by me (1pt. min.). @ -None done What testing was considered but not performed or refused? (CT, X-rays, U/S, labs)? Why? @ -None What meds were considered but not given or refused? Why? @ -None Did you discuss the management of the patient with other professionals (professionals i.e. , PA, SECRETARY OF POLICE, lab, RT, psych nurse, social science instructor, livestock farm workers, teacher, emergency communications officer, protective services case worker)? Give summary @ -I spoke with the EPS nurse and they agreed to admit the patient Was smoking cessation discussed for >3mins.? @ -No Was critical care preformed (if so, how long)? @ -35 minutes Were there social determinants of health that impacted care today? How? (Homelessness, low income, unemployed, alcoholism, drug addiction, transportation, low edu. Level, literacy, decrease access to med. care, halfway, rehab)? @ -No Was there de-escalation of care discussed even if they declined (Discuss DNR or withdrawal of care, Hospice)? DNR status @ -No What co-morbidities impacted this encounter? (DM, HTN, Smoking, COPD, CAD, Cancer, CVA, ARF, Chemo, Hep., AIDS, mental health diagnosis, sleep apnea, morbid obesity)? @ -None Was patient admitted / discharged? Hospital course, mention meds given and route, prescriptions, significant lab abnormalities, going to OR and other pertinent info. @ -Patient continued to state that he was suicidal and was willing to sign in after EPS evaluated him and was in agreement with signing min. I initially spoke with the patient and the police for 20 minutes I went back and reevaluated the patient for 10 more minutes prior to his admission Undiagnosed new problem with uncertain prognosis? @ -No Drug Therapy requiring intensive monitoring for toxicity (Heparin, Nitro, Insulin, Cardizem)? @ -No Were any procedures done? @ -No Diagnosis/symptom? @ -Suicidal ideations Acute, or Chronic, or Acute on Chronic? @ -Acute Uncomplicated (without systemic symptoms) or Complicated (systemic symptoms)? @ -Complicated Side effects of treatment? @ -No Exacerbation, Progression, or Severe Exacerbation? @ -No Poses a threat to life or bodily function? How? (Chest pain, [place], [place], pneumonia, PE, COPD, DKA, ARF, appy, cholecystitis, CVA, Diverticulitis, Homicidal, Suicidal, threat to staff... and all critical care pts) @ -Yes this could lead to an attempt and possible - Lab Data Lab Results 12/31/23 Range/Units 13:41 Urine Opiates Screen Not Detected (NotDetected) Ur Oxycodone Screen Not Detected (NotDetected) Urine Methadone Screen Not Detected (NotDetected) Ur Barbiturates Screen Detected H (NotDetected) U Tricyclic Antidepress Not Detected (NotDetected) Ur Phencyclidine Scrn Not Detected (NotDetected) Ur Amphetamines Screen Not Detected (NotDetected) U Methamphetamines Scrn Not Detected (NotDetected) U Benzodiazepines Scrn Not Detected (NotDetected) Urine Cocaine Screen Not Detected (NotDetected) U Marijuana (THC) Screen Not Detected (NotDetected) Critical Care Time Critical Care Time: Yes Total Critical Care Time: 35 Disposition Clinical Impression: Suicidal ideation Disposition: ADMITTED IP TO THIS HOSP Referrals: Ana Maria Samson MD [Primary Care Provider] - 1-2 days Time of Disposition: 15:22
[2023-12-31 14:23] LABS: Amphetamine Screen,Urine Not Detected (NotDetected); Barbiturate Screen,Urine Detected (NotDetected); Benzodiazepines Screen,Urine Not Detected (NotDetected); Cocaine Screen,Urine Not Detected (NotDetected); Methadone Screen, Urine Not Detected (NotDetected); Opiate Screen,Urine Not Detected (NotDetected); Oxycodone Screen, Urine Not Detected (NotDetected); Phencyclidine Screen,Urine Not Detected (NotDetected); Tricyclic Antidepressant,Urine Not Detected (NotDetected); Urn Cannabinoid Scrn Not Detected (NotDetected)
[2023-12-31] MEDS ORDERED: LORazepam 0.5 MG TAB PO PRN (17:48)
[2023-12-31] MEDS ORDERED: CYCLOBENZAPRINE 10 MG TAB PO PRN (17:48)
[2023-12-31] MEDS: lamoTRIgine 100 MG TAB PO SCH (20:05)
[2023-12-31] MEDS: traZODone HCL 50 MG TAB PO SCH (20:05)
[2023-12-31] MEDS ORDERED: MAGNESIUM HYDROXIDE 2,400 MG/30 ML CUP PO PRN (21:41)
[2023-12-31] MEDS ORDERED: MAG HYDROX/AL HYDROX/SIMETH 355 ML BOTTLE PO PRN (21:41)
[2023-12-31] MEDS ORDERED: hydrOXYzine HCL 50 MG/ML 1 ML VIAL IM PRN (21:41)
[2023-12-31] MEDS: carBAMazepine 400 MG TAB.ER.12H PO SCH (22:14)
[2023-12-31] MEDS: ZONISAMIDE 100 MG CAP PO SCH (22:15)
[2023-12-31] MEDS: carBAMazepine 200 MG TAB PO SCH (22:15)
[2023-12-31] MEDS: NON FORMULARY DRUG (Cariprazine Hcl [Vraylar] 3 MG Capsule) PO SCH (22:21)
[2023-12-31 22:31] LABS: Appearance,Urine Clear (Clear); Bilirubin,Urine Negative (Negative); Blood,Urine Negative (Negative); Color,Urine Yellow; Glucose,Urine (UA) Negative (Negative); Ketones,Urine Negative (Negative); Leukocyte Esterase,Urine Negative (Negative); Nitrite,Urine Negative (Negative); PH, Urine 5.5 (5.0-8.0); Protein,Urine Trace (Negative); Specific Gravity,Urine 1.021 (1.001-1.035); Urobilinogen,Urine <2.0 mg/dL (<2.0)
--- NOTE | 2024-01-01 07:49 | P.CONS ---
History of Present Illness - Reason for Consult Consult date: 01/01/24 Medical management Requesting physician: Blane Paul - Chief Complaint Severe depression and suicidal ideation - History of Present Illness HISTORY OF PRESENT ILLNESS: 33-year-old one of our office patient with past medical history of depression, hypothyroidism, GERD, epilepsy, obstructive sleep apnea, with history of speech impediment, history of acne who has been seen in our office for the last few years with Dr. Samson has been in and out the psych unit last few years for suicidal ideation and depression Who presented to the emergency department at [facility] yesterday [id number] apparently brought by the police because he jumped in front of traffic after he got an argument with his his kicked him out of the house he went to his mother apparently expressed that he wants to commit suicide he was brought to the emergency department where was seen and evaluated no major finding on his lab his drug screen was positive for phenobarbital only in his urine for UA was negative no CBC or CMP was done his CBC for COVID-19 influenza and RSV was negative. Patient was admitted to the psych after seen in the emergency room. REVIEW OF SYSTEMS: CONSTITUTIONAL: Well-developed no acute respiratory distress. EYES: No icterus sclerae, no conjunctivitis. EARS, NOSE, MOUTH, THROAT, and FACE: No sore throat, lymphadenopathy, carotid bruits or deformity. RESPIRATORY: No SOB cough or wheezes. CARDIOVASCULAR: No CP, Palpitation, PND, Orthopnea, or angina. GASTROINTESTINAL: No Abd pain, Nausea or vomiting, no Diarrhea or constipation, No GI Bleed, no distention or masses. GENITOURINARY: Negative for Hematuria or UTI, no kidney stones. INTEGUMENT/BREAST: Negative for any muscular injury with mild osteoarthritis.. HEMATOLOGIC/LYMPHATIC: Negative for bleed or purpura. MUSCULOSKELTAL: Negative for Myalgia or arthralgia. NEURLOGICAL: No LOC, Sz or syncope, blurred vision dizziness or abnormality.. BEHAVIORAL/PSYCH: Negative. ENDOCRINE: Negative. PHYSICAL EXAMINATION: General Appearance: Alert, cooperative, no distress, appears stated age. Neck HEENT: Supple, no lymphadenopathy, no thyroid enlargement, no carotid bruits. Lungs: Clear to auscultation without crackles or wheezes no rhonchi, no deformity. Chest Wall: Chest wall normal expansion with deep inspiration no tenderness and no deformity was found on exam, no costochondral pain or discomfort. Heart: Regular rate and rhythm, S1, S2 normal, no murmur, rub or gallop. Back: Symmetric, no curvature, ROM normal, no CVA tenderness. Abdomen: Soft, non-tender, bowel sounds active all four quadrants, no masses, no organomegaly. Extremities: Extremities normal, atraumatic, no cyanosis or edema. Pulses: 2+ and symmetric. Skin: Skin color, texture, tugor normal, no rashes or lesions. Neurologic: Alert oriented x3 cranial nerves II through XII intact, no motor deficit, no abnormal balance or gait. ASSESSMENT AND PLAN: _Severe depression and suicidal ideation: Was admitted to the psych service patient be seen slight hopefully for inpatient service with the group therapy and address of his medication. _GERD: He is remain on omeprazole 20 mg a day which will be continued. _Seizure disorders: Has been on Tegretol and Lamictal with lorazepam and phenobarbital. _History of migraine: He is Motrin 800mg As need for it. _Severe anxiety and panic attacks: Still on fluoxetine along with lorazepam. _GI prophylaxis: Continue omeprazole. _CODE STATUS: Full code. Dr. Paul thank you for the consult if I can be any further help to please let me know. Past Medical History Past Medical History: GERD/Reflux, Seizure Disorder, Skin Disorder, Thyroid Disorder Additional Past Medical History / Comment(s): has history of epilepsy, hx grand mal seizures since childhood, migraines, acne, Last seizure was 07/28/22 History of Any Multi-Drug Resistant Organisms: None Reported, Unobtainable Past Surgical History: Adenoidectomy, Appendectomy, Cholecystectomy, Tonsillectomy Additional Past Surgical History / Comment(s): oral surgery. I & D CYST ON BACK 08/19/22. MULTIPLE STITCHES Past Anesthesia/Blood Transfusion Reactions: Previous Problems w/ Anesthesia Additional Past Anesthesia/Blood Transfusion Reaction / Comm: SLOW TO WAKE FROM ANESTHESIA" Past Psychological History: ADD/ADHD, Anxiety, Depression Additional Psychological History / Comment(s): per pt-he was in special education classes thru out school(has some intellectual disabilty), speech impediment. able to read and write fine. hx cluster b disorder Smoking Status: Never smoker Past Alcohol Use History: Occasional Past Drug Use History: None Reported Additional Drug Use History / Comment(s): Denies any illicit drugs or any marijuana use - Past Family History Mother Family Medical History: Cancer Additional Family Medical History / Comment(s): breast cancer Medications and Allergies Home Medications Medication Instructions Recorded Confirmed Type carBAMazepine [TEGretol XR] 400 mg PO HS 10/19/18 12/31/23 History lamoTRIgine [LaMICtal] 200 mg PO BID #0 06/28/20 12/31/23 Rx carBAMazepine [TEGretol] 200 mg PO BID 10/10/20 12/31/23 History PHENobarbitaL [Luminal] 129.6 mg PO HS 08/28/22 12/31/23 History Zonisamide [Zonegran] 400 mg PO HS 08/28/22 12/31/23 History Cariprazine HCl [Vraylar] 3 mg PO HS 12/10/22 12/31/23 History Sertraline [Zoloft] 100 mg PO DAILY 30 Days #30 tab 04/09/23 12/31/23 Rx Cyclobenzaprine [Flexeril] 10 mg PO TID PRN 12/31/23 12/31/23 History Ibuprofen [Motrin] 600 mg PO Q6H PRN 12/31/23 12/31/23 History LORazepam [Ativan] 0.5 mg PO HS PRN 12/31/23 12/31/23 History traZODone HCL [Desyrel] 50 mg PO HS 12/31/23 12/31/23 History Allergies Allergy/AdvReac Type Severity Reaction Status Date / Time No Known Allergies Allergy Verified 12/31/23 16:15 Physical Exam Vitals: Vital Signs Temp Pulse Pulse Resp BP BP Pulse Ox 12/31/23 21:55 98.5 F 71 18 120/71 98 12/31/23 20:37 97.9 F 78 16 130/76 98 12/31/23 12:51 97.9 F 67 18 130/83 100 Intake and Output 12/31/23 12/31/23 01/01/24 14:59 22:59 06:59 Other: Weight 84.538 kg 81.873 kg Results Labs: Abnormal Lab Results - Last 24 Hours (Table) 12/31/23 12/31/23 Range/Units 13:41 13:41 Urine Protein Trace H (Negative) Ur Barbiturates Screen Detected H (NotDetected)
[2024-01-01] MEDS: SERTRALINE 100 MG TAB PO SCH (08:33)
[2024-01-01 08:58] LABS: Basophils % (A) 1 %; Eosinophils # (A) 0.4 k/uL (0-0.7); Eosinophils % (A) 8 %; HCT 49.2 % (39.0-53.0); HGB 16.1 gm/dL (13.0-17.5); Lymphocytes # (A) 1.5 k/uL (1.0-4.8); Lymphocytes % (A) 30 %; MCH 31.9 pg (25.0-35.0); MCHC 32.7 g/dL (31.0-37.0); MCV 97.7 fL (80.0-100.0); Mean Platelet Volume 7.2; Monocytes # (A) 0.3 k/uL (0-1.0); Monocytes % (A) 5 %; Neutrophils # (A) 2.8 k/uL (1.3-7.7); Neutrophils % (A) 55 %; Platelet Count 215 k/uL (150-450); RBC 5.04 m/uL (4.30-5.90); RDW 12.9 % (11.5-15.5); WBC 5.2 k/uL (3.8-10.6)
[2024-01-01 09:03] LABS: ALT 16 U/L (4-49); AST 20 U/L (17-59); African American GFR (CKD) >90 (>60 ml/min/1.73 sqM); Alkaline Phosphatase 102 U/L (38-126); Anion Gap 12 mmol/L; Bilirubin, Delta 0.3 mg/dL (0.0-0.2); Bilirubin,Unconjugated 0.4 mg/dL (0.0-1.1); Blood Urea Nitrogen 11 mg/dL (9-20); Calcium 9.6 mg/dL (8.4-10.2); Carbon Dioxide 20 mmol/L (22-30); Chloride 110 mmol/L (98-107); Glucose 106 mg/dL (74-99); Non-African American GFR(CKD) >90 (>60 ml/min/1.73 sqM); Sodium 142 mmol/L (137-145); Total Bilirubin 0.7 mg/dL (0.2-1.3); Total Protein 8.4 g/dL (6.3-8.2)
[2024-01-01] MEDS ORDERED: LORazepam 2 MG/ML INJ IM PRN (09:52)
--- NOTE | 2024-01-01 12:52 | P.HP ---
Psychiatric H&P - . H&P Date: 01/01/24 History & Physical: Allergies Allergy/AdvReac Type Severity Reaction Status Date / Time No Known Allergies Allergy Verified 12/31/23 16:15 Vital Signs Temp 97.8 F 01/01/24 06:52 Pulse 87 01/01/24 06:52 Resp 16 01/01/24 06:52 BP 140/71 01/01/24 06:52 Pulse Ox 98 12/31/23 21:55 FiO2 Intake & Output 12/31/23 01/01/24 01/01/24 18:59 06:59 18:59 Weight 84.538 kg 81.873 kg Laboratory Last Values WBC 5.2 k/uL (3.8-10.6) 01/01/24 08:18 RBC 5.04 m/uL (4.30-5.90) 01/01/24 08:18 Hgb 16.1 gm/dL (13.0-17.5) 01/01/24 08:18 Hct 49.2 % (39.0-53.0) 01/01/24 08:18 MCV 97.7 fL (80.0-100.0) 01/01/24 08:18 MCH 31.9 pg (25.0-35.0) 01/01/24 08:18 MCHC 32.7 g/dL (31.0-37.0) 01/01/24 08:18 RDW 12.9 % (11.5-15.5) 01/01/24 08:18 Plt Count 215 k/uL (150-450) 01/01/24 08:18 MPV 7.2 01/01/24 08:18 Neutrophils % 55 % 01/01/24 08:18 Lymphocytes % 30 % 01/01/24 08:18 Monocytes % 5 % 01/01/24 08:18 Eosinophils % 8 % 01/01/24 08:18 Basophils % 1 % 01/01/24 08:18 Neutrophils # 2.8 k/uL (1.3-7.7) 01/01/24 08:18 Lymphocytes # 1.5 k/uL (1.0-4.8) 01/01/24 08:18 Monocytes # 0.3 k/uL (0-1.0) 01/01/24 08:18 Eosinophils # 0.4 k/uL (0-0.7) 01/01/24 08:18 Basophils # 0.0 k/uL (0-0.2) 01/01/24 08:18 Urine Color Yellow 12/31/23 13:41 Urine Appearance Clear (Clear) 12/31/23 13:41 Urine pH 5.5 (5.0-8.0) 12/31/23 13:41 Ur Specific [place] 1.021 (1.001-1.035) 12/31/23 13:41 Urine Protein Trace (Negative) H 12/31/23 13:41 Urine Glucose (UA) Negative (Negative) 12/31/23 13:41 Urine Ketones Negative (Negative) 12/31/23 13:41 Urine Blood Negative (Negative) 12/31/23 13:41 Urine Nitrite Negative (Negative) 12/31/23 13:41 Urine Bilirubin Negative (Negative) 12/31/23 13:41 Urine Urobilinogen <2.0 mg/dL (<2.0) 12/31/23 13:41 Ur Leukocyte Esterase Negative (Negative) 12/31/23 13:41 Urine Opiates Screen Not Detected (NotDetected) 12/31/23 13:41 Ur Oxycodone Screen Not Detected (NotDetected) 12/31/23 13:41 Urine Methadone Screen Not Detected (NotDetected) 12/31/23 13:41 Ur Barbiturates Screen Detected (NotDetected) H 12/31/23 13:41 U Tricyclic Antidepress Not Detected (NotDetected) 12/31/23 13:41 Ur Phencyclidine Scrn Not Detected (NotDetected) 12/31/23 13:41 Ur Amphetamines Screen Not Detected (NotDetected) 12/31/23 13:41 U Methamphetamines Scrn Not Detected (NotDetected) 12/31/23 13:41 U Benzodiazepines Scrn Not Detected (NotDetected) 12/31/23 13:41 Urine Cocaine Screen Not Detected (NotDetected) 12/31/23 13:41 U Marijuana (THC) Screen Not Detected (NotDetected) 12/31/23 13:41 Influenza Type A (PCR) Not Detected (Not Detectd) 12/31/23 17:00 Influenza Type B (PCR) Not Detected (Not Detectd) 12/31/23 17:00 RSV (PCR) Not Detected (Not Detectd) 12/31/23 17:00 SARS-CoV-2 (PCR) Not Detected (Not Detectd) 12/31/23 17:00 01/01/24 09:02 IDENTIFYING DATA: Patient is a Patient is a 33-year-old male with significant history of seizure disorder, depressive disorder, and borderline personality disorder who presents for hospital with a chief complaint of suicidal ideation. . Lives with and son. Has an 8 year old son. Unemployed, receives social security HPI: Patient presented to the hospital on 12/30. As per EPS note, "presenting with anxiety/depression accompanied with SI w plan to walk into traffic. PD filled out PET stating the same. Cl tearful, bordering anxious, depressed. Cl states " My kicked me out of the house because our counselor said if I ever am talking to or looking at other women she is free to kick me out, well thats what happened, and she told me to go live with my Mom. I haven't spoken to my Mom in 4 years, so I said that was it and I was going to kill myself" Cl reports increased depression and anxiety ovet the last 3 weeks. Cl reports continued crying spells, feeling overwhelmed, loss of interest, low energy, and not themselves. Cl reports attempting to use relaxation techniques but feels they are not working." Upon todays assessment, he states that him and his got into an argument, about him looking at women on [employer], and she told him to go live with his mom. He told her that if that were to happen, he would kill him self. He states he does not get along with his mother. Patient states after the argument, he went for a walk, and called police, and they brought him into the ER. He claims that he was having thoughts of killing himself before coming into the hospital. Patient did appear to be somewhat lethargic during interview, states that he is sleeping a lot at nighttime, claims that he did not get much rest last night when he came into the hospital. Patient is still endorsing suicidal thoughts, no plan. denying homicidal ideations intent or plan. At this time patient denies any auditory or visual hallucinations. Patient denies using recreational drugs. Patient appears heavily sedated today. PAST PSYCHIATRIC HISTORY: Patient has previous diagnosis of depressive disorder and borderline personality disorder. He is currently prescribed He was last hospitalized on this psychiatric unit in March 2023. He has multiple admissions for psychiatric care. [facility], and sees Fidelina weekly to biweekly. He has attempted suicide in the past by means of overdosing. PMH:As per ER note ALLERGIES: as per EMR CHEMICAL DEPENDENCY HISTORY: as per HPI FAMILY PSYCHIATRIC/SUBSTANCE USE HISTORY: denies SOCIAL HISTORY: Patient was born and raised in [place], [place]. He is currently and has a 8-year-old son. He has an associates degree. He is currently on disability.. MENTAL STATUS EXAM: General Appearance: Patient appears to be older than stated age, is alert, directable, and attempts to cooperate. Patient appears to have poor hygiene and grooming.Wearing a hospital gown. Disheveled appearance. Behavior: Patient is seated without any agitated behavior. Sedated Speech: Patient's speech is fluent and nonpressured. Mildly dysarthric secondary to lack of dentition. Mood/Affect: Patient reports their mood is depressed, affect is congruent and constricted. Suicidality/Homicidality: Patient denies having any homicidal ideation intent or plan. Endorsing suicidal ideations no intent or plan Perceptions: Patient denies any visual hallucinations and denies any auditory hallucinations Though content/process: There is no evidence of any delusional thought content and thought process is linear and goal-directed. [place]. Memory and concentration: AOX3, grossly intact for the purposes of this session. Can spell "WORLD" backwards Judgment and insight: chronically poor STRENGTHS/WEAKNESSES: Strength is that the patient has services. Weakness is that the patient has very poor ego integrity. 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 Patient has signed adult voluntary form and medication consent and is placed in patient's chart. -Medications : Will continue patients regimen of Zoloft 100mg daily for mood/anxiety, Lamictal 200mg bid for mood stabilization/seizures discontinue trazodone due to possible over sedation -continue with Phenobarbital and trileptal are home meds for seizures. -Ativan and Haldol PRN for agitation/aggression -Patient was informed of the risks, benefits and side effects of the medication and patient verbally consented to taking the medications. -Internal Medicine consult to perform medical evaluation and physical. -NRT - nicotine patch -SW on board for discharge planning. Encourage patient to participate in groups to work on coping skills. 01/01/24 12:34 01/01/24 12:49
[2024-01-01 15:13] LABS: Chol/HDL Ratio 5.33 Ratio; LDL Cholesterol,Calculated 148.5 mg/dL (0.0-131.0)
[2024-01-01] MEDS ORDERED: SERTRALINE 100 MG TAB PO SCH (21:00)
[2024-01-02] MEDS: hydrOXYzine HCL 25 MG TAB PO PRN (03:54)
[2024-01-02] MEDS: SERTRALINE 100 MG TAB PO SCH (07:50)
--- NOTE | 2024-01-02 11:17 | P.PN ---
Progress Note - Text Progress Note Date: 01/02/24 Interval History: Patient was seen wandering the hallways and was directable and agreeable to sp yani with field underwriter in the office. Patient states that he is doing ok today. Patient seems to be less sedated today. Patient is attending groups, and his appetite is good. Patient is preoccupied with having his trazodone back claims that he did not sleep well last night. Patient is superficial with field underwriter. Patient is asking about discharge. [employer] explained how important a safe discharge is, and that he is not there yet. At this time patient denies any suicidal or homicidal ideations, intent or plan. Patient denies any auditory, visual hallucinations and denies any paranoia or delusions. Patient denies any side effects from the medications and has been compliant with meds. MENTAL STATUS EXAM: General Appearance: Patient appears to be older than stated age, is alert, directable, and attempts to cooperate. Patient appears to have poor hygiene and grooming.Wearing a hospital gown. Disheveled appearance. Behavior: Patient is seated without any agitated behavior. Sedated, improving mildly Speech: Patient's speech is fluent and nonpressured. Mildly dysarthric secondary to lack of dentition. Mood/Affect: Patient reports their mood is depressed, affect is congruent and constricted. Suicidality/Homicidality: Patient denies having any homicidal ideation intent or plan.Denies suicidal ideations no intent or plan Perceptions: Patient denies any visual hallucinations and denies any auditory hallucinations Though content/process: There is no evidence of any delusional thought content and thought process is linear and goal-directed. [place]. focused on his medications. Memory and concentration: AOX3, grossly intact for the purposes of this session. 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 -Medications : Zoloft 100mg daily for mood/anxiety, Lamictal 200mg bid for mood stabilization/seizures, added trazodone 50mg for sleep. -continue with Phenobarbital and trileptal are home meds for seizures. -Ativan and Haldol PRN for agitation/aggression -NRT - nicotine patch -SW on board for discharge planning. Encourage patient to participate in groups to work on coping skills. Likely discharge mid next week if patient improves psychiatrically.
[2024-01-02] MEDS: traZODone HCL 50 MG TAB PO SCH (21:16)
[2024-01-03] MEDS: LORazepam 1 MG TAB PO PRN (10:14)
--- NOTE | 2024-01-03 10:25 | P.PN ---
Progress Note - Text Progress Note Date: 01/03/24 Interval history: Patient was seen wandering the hallways and was directable and agreeable to s [place] with ad writer. Patient appeared to be crying earlier. he states that he talked to his son over the phone earlier and he was upset because his son asked him "when are you coming home". He states that he wants to go home, he was fairly tearful during the interview today, he was fairly superficial about his mood and anxiety. States that he slept fairly last night with trazodone. He has not been participating in many groups. Claims to have a fair appetite, he threatened to sign himself AMA. At this time patient denies any suicidal or homicidal ideations intent or plan. Denies any Auditory or visual hallucinations. Patient denies any side effects from the medications and has been compliant with meds. Mental status exam: General Appearance: Patient appears to be wearing glasses, stated age is alert, tearful, improving hygiene and grooming Behavior: No agitated behavior. Patient is calm and directable, tearful today Speech: Patient's speech is fluent and nonpressured. Mood/Affect: Mood is improving mildly, affect is congruent and constricted. Suicidality/Homicidality: Patient denies having any suicidal or homicidal ideation intent or plan. Perceptions: Patient denies any auditory or visual hallucinations. Though content/process: There is no evidence of any delusional thought content and thought process is linear and goal-directed. Focused on discharge, concrete Memory and concentration: AOX3, grossly intact for the purposes of this session Judgment and insight: improving mildly Assessment/Plan: Continue with current diagnosis. Patient continues to meet criteria for inpatient psychiatric admission for symptom stabilization and safety. Patient will be maintained on current psychotropic medication regimen, with the exception of increasing Zoloft to 150 mg daily for mood/anxiety. Monitor for medication compliance and for any psychotropic medication side effects. Will continue to monitor ongoing response to treatment. Encouraged participation in milieu.
[2024-01-03] MEDS: SERTRALINE 50 MG TAB PO STA (10:55)
[2024-01-04] MEDS: SERTRALINE 50 MG TAB PO SCH (08:21)
--- NOTE | 2024-01-04 10:20 | P.PN ---
Progress Note - Text Progress Note Date: 01/04/24 Interval history: Patient was seen laying in bed this morning he was agreeable to speak to specifications writer at the bedside. He appeared to be fairly tired this morning however was able to answer questions. States that his mood is mildly improving since yesterday, denies any anxiety today. He did not mention any overnight complaints, states that he slept well. He has not been participating in many groups. Claims to have a fair appetite, claims that he is showering and eating well. At this time myranda ent denies any suicidal or homicidal ideations intent or plan. Denies any Auditory or visual hallucinations. Patient denies any side effects from the medications and has been compliant with meds. Mental status exam: General Appearance: Patient appears to be wearing glasses, stated age is alert, more cooperative today. Improving hygiene and grooming Behavior: No agitated behavior. Patient is calm and directable, not tearful today. Mildly tired Speech: Patient's speech is fluent and nonpressured. Mood/Affect: Mood is improving mildly, affect is congruent and constricted. Suicidality/Homicidality: Patient denies having any suicidal or homicidal ideation intent or plan. Perceptions: Patient denies any auditory or visual hallucinations. Though content/process: There is no evidence of any delusional thought content and thought process is linear and goal-directed. [place] Memory and concentration: AOX3, grossly intact for the purposes of this session Judgment and insight: Poor, improving mildly Assessment/Plan: Continue with current diagnosis. Patient continues to meet criteria for inpatient psychiatric admission for symptom stabilization and safety. Patient will be maintained on current psychotropic medication regimen. Monitor for medication compliance and for any psychotropic medication side effects. Will continue to monitor ongoing response to treatment. Encouraged participation in milieu.
[2024-01-04] MEDS: IBUPROFEN 600 MG TAB PO PRN (20:43)
--- NOTE | 2024-01-05 11:44 | P.PN ---
Progress Note - Text Progress Note Date: 01/05/24 Interval History: Patient was seen wandering the hallways and was directable and agreeable to susy lomeli with literary writer in the office. Today, the patient states he is doing great. Patient states he has been talking to his on the phone, and he said it is not going good, and that they are fighting when they talk. Patient stated he rescinded his CHANCE for his , because she does not want him to come home, and he will talk to social work to figure out his discharge plan. Patient is mildly focused on discharge, literary writer told him it would probably be Friday, if he continues to improve. Patient is sleeping well, and his appetite is good. Offers no other complaints. At this time patient denies any suicidal or homicidal ideations, intent or plan. Patient denies any auditory, visual hallucinations and denies any paranoia or delusions. Patient denies any side effects from the medications and has been compliant with meds. MENTAL STATUS EXAM: General Appearance: Patient appears to be older than stated age, is alert, directable, and attempts to cooperate. Patient appears to have mildly improving hygiene and grooming. Behavior: Patient is seated without any agitated behavior. Speech: Patient's speech is fluent and nonpressured. Mildly dysarthric Mood/Affect: Patient reports their mood is depressed, affect is congruent and constricted. Suicidality/Homicidality: Patient denies having any homicidal ideation intent or plan.Denies suicidal ideations no intent or plan Perceptions: Patient denies any visual hallucinations and denies any auditory hallucinations Though content/process: There is no evidence of any delusional thought content and thought process is linear and goal-directed. [place]. Memory and concentration: AOX3, grossly intact for the purposes of this session. 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 -Medications : Zoloft 150mg daily for mood/anxiety, Lamictal 200mg bid for mood stabilization/seizures, trazodone 50mg for sleep. -continue with Phenobarbital and trileptal are home meds for seizures. -Ativan and Haldol PRN for agitation/aggression -NRT - nicotine patch -SW on board for discharge planning. Encourage patient to participate in groups to work on coping skills. Likely discharge Friday, if patient continues to improve psychiatrically.
[2024-01-06] MEDS ORDERED: LORazepam 1 MG TAB PO PRN (10:12)
--- NOTE | 2024-01-06 10:27 | P.PN ---
Progress Note - Text Progress Note Date: 01/06/24 Interval History: Patient was seen wandering the hallways and was directable and agreeable to susy lomeli with tech writer in the office. Today, the patient states that he is doing good. Patient asked for some PRN ativan last night, stated he got a call from his son, and his son asked when he was coming home, which caused him anxiety. The patient states he talked to his , and apparently his mother served his with court papers that will take his son away from his . Patient is going to groups. Patient is sleeping well, and his appetite is good. Offers no other complaints. At this time patient denies any suicidal or homicidal ideations, intent or plan. Patient denies any auditory, visual hallucinations and denies any paranoia or delusions. Patient denies any side effects from the medications and has been compliant with meds. MENTAL STATUS EXAM: General Appearance: Patient appears to be older than stated age, is alert, directable, and attempts to cooperate. Patient appears to have mildly improving hygiene and grooming. Behavior: Patient is seated without any agitated behavior. Speech: Patient's speech is fluent and nonpressured. Mildly dysarthric, Mood/Affect: Patient reports their mood is improving, affect is congruent and constricted. mildly improving Suicidality/Homicidality: Patient denies having any homicidal ideation intent or plan.Denies suicidal ideations no intent or plan Perceptions: Patient denies any visual hallucinations and denies any auditory hallucinations Though content/process: There is no evidence of any delusional thought content and thought process is linear and goal-directed. [place]. mildly improving Memory and concentration: AOX3, grossly intact for the purposes of this session. 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 -Medications : Zoloft 150mg daily for mood/anxiety, Lamictal 200mg bid for mood stabilization/seizures, trazodone 50mg for sleep. -continue with Phenobarbital and trileptal are home meds for seizures. -Ativan and Haldol PRN for agitation/aggression -NRT - nicotine patch -SW on board for discharge planning. Encourage patient to participate in groups to work on coping skills. Likely discharge tomorrow, if patient continues to improve psychiatrically.
[2024-01-07 07:22] VITALS: BP 129/90; PULSE 79; RESP 14; TEMP 97.9
--- NOTE | 2024-01-07 11:04 | P.DS ---
Providers Date of admission: 12/31/23 21:17 Expected date of discharge: 01/07/24 Attending physician: Blane Paul MD Consults: 12/31/23 21:41 Consult Physician Routine Consulting Provider: Luciano Carson Reason/Comments: medical H&P Do you want consulting provider notified?: Yes, Notify in am Primary care physician: Ana Maria Chapin - Discharge Diagnosis(es) (1) Major depressive disorder, recurrent severe without psychotic features Current Visit: No Status: Acute Priority: High (2) Adjustment disorder with mixed disturbance of emotions and conduct Current Visit: Yes Status: Acute Priority: High (3) Borderline personality disorder Current Visit: No Status: Acute Priority: High (4) Seizure disorder Current Visit: No Status: Acute Priority: Medium Hospital Course: Admission HPI: Admission note was completed by abstract writer "Patient presented to the hospital on 12/30. As per EPS note, "presenting with anxiety/depression accompanied with SI w plan to walk into traffic. PD filled out PET stating the same. Cl tearful, bordering anxious, depressed. Cl states " My kicked me out of the house because our counselor said if I ever am talking to or looking at other women she is free to kick me out, well thats what happened, and she told me to go live with my Mom. I haven't spoken to my Mom in 4 years, so I said that was it and I was going to kill myself" Cl reports increased depression and anxiety ovet the last 3 weeks. Cl reports continued crying spells, feeling overwhelmed, loss of interest, low energy, and not themselves. Cl reports attempting to use relaxation techniques but feels they are not working." Upon todays assessment, he states that him and his got into an argument, about him looking at women on [employer], and she told him to go live with his mom. He told her that if that were to happen, he would kill himself. He states he does not get along with his mother. Patient states after the argument, he went for a walk, and called police, and they brought him into the ER. He claims that he was having thoughts of killing himself before coming into the hospital. Patient did appear to be somewhat lethargic during interview, states that he is sleeping a lot at nighttime, claims that he did not get much rest last night when he came into the hospital. Patient is still endorsing suicidal thoughts, no plan. denying homicidal ideations intent or plan. At this time patient denies any auditory or visual hallucinations. Patient denies using recreational drugs. Patient appears heavily sedated today." Hospital course: Upon admission to the unit patient was directable and agreeable to commence treatment and signed adult voluntary form. Patient got along well with other patients on the unit and followed unit protocol. Patient was compliant with the medications and denied any side effects throughout hospital course. Patient was started on Zoloft increased to dose of 150 mg daily for mood/anxiety, Lamictal 200 mg twice daily for mood stabilization/seizures, trazodone 50 mg nightly for sleep, Atarax as needed for anxiety. Patient spoke of his stressors and engaged in therapy both group and individual. Patient was also seen by medical team for history and physical exam. Throughout the course of the hospitalization patient gradually improved with regards to mood, anxiety, sleep and returned back to their baseline level of functioning. On the day of discharge patient denied any suicidal or homicidal ideations intent or plan denied any auditory or visual hallucinations. Patient endorsed wanting to live for his family and his health. The patient denied any access to guns or weapons. Patient denied any paranoia and did not endorse any delusions. Patient does not have a significant history of substance abuse and was counseled on abstaining from all substances including alcohol and marijuana. Patient was also counseled on the medications and need for regular compliance and was encouraged to follow-up with their outpatient appointment for mental health and also for primary care. Prior to discharge a family meeting will be arranged by social sciences department chair to answer any questions and ensure safety upon discharge. bin worker to coordinate with patient's for discharge planning today and pickling operator. Mental status exam: General Appearance: Patient appears to be wearing glasses, unshaven, stated age is alert, pleasant, and cooperative. Patient is in no acute distress and has improved hygiene and grooming Behavior: Patient is calmly seated without any agitated behavior. Speech: Patient's speech is fluent and nonpressured. Mood/Affect: Patient reports their mood is "good", affect is congruent Suicidality/Homicidality: Patient denies having any suicidal or homicidal ideation intent or plan. Perceptions: Patient denies any auditory or visual hallucinations. Though content/process: There is no evidence of any delusional thought content and thought process is linear and goal-directed. Memory and concentration: AOX3, grossly intact for the purposes of this session. Can spell "WORLD" backwards correctly. Judgment and insight: Chronically poor/limited, however has improved with guarded prognosis Impression: adjustment disorder with disturbance in emotions and conduct Major depressive disorder Borderline personality disorder Seizure disorder Plan: -Continue with discharge today as patient has improved and stabilized psychiatrically and is not currently an imminent threat to himself and/or others. Patient will remain at chronically elevated risk for harm to self and/or others due to his impulsivity. -Continue medications: Zoloft 150 mg daily for mood/anxiety, Lamictal 200 mg twice daily for mood stabilization/seizures, trazodone 50 mg nightly for sleep/mood, Atarax as needed for anxiety. -Patient was counseled on the need for medication compliance and appropriate follow-up at mental health and also primary care for medical issues. Patient verbalized understanding and agreed. -Social work to arrange for and conduct family meeting to ensure safety upon discharge and answer any questions/concerns. Social work also to arrange for patients follow up appointments for psychiatric care along with follow up with primary care provider. -Patient counseled on abstaining from recreational drugs and marijuana and alcohol. Was informed/educated on the adverse effects on their physical and mental health. Patient verbally agreed and understood. -Patient was instructed to return to the hospital or seek immediate medical care if their psychiatric or medical symptoms do worsen or reoccur. Allergies Allergy/AdvReac Type Severity Reaction Status Date / Time No Known Allergies Allergy Verified 12/31/23 16:15 Laboratory Results WBC 5.2 k/uL (3.8-10.6) 01/01/24 08:18 RBC 5.04 m/uL (4.30-5.90) 01/01/24 08:18 Hgb 16.1 gm/dL (13.0-17.5) 01/01/24 08:18 Hct 49.2 % (39.0-53.0) 01/01/24 08:18 MCV 97.7 fL (80.0-100.0) 01/01/24 08:18 MCH 31.9 pg (25.0-35.0) 01/01/24 08:18 MCHC 32.7 g/dL (31.0-37.0) 01/01/24 08:18 RDW 12.9 % (11.5-15.5) 01/01/24 08:18 Plt Count 215 k/uL (150-450) 01/01/24 08:18 MPV 7.2 01/01/24 08:18 Neutrophils % 55 % 01/01/24 08:18 Lymphocytes % 30 % 01/01/24 08:18 Monocytes % 5 % 01/01/24 08:18 Eosinophils % 8 % 01/01/24 08:18 Basophils % 1 % 01/01/24 08:18 Neutrophils # 2.8 k/uL (1.3-7.7) 01/01/24 08:18 Lymphocytes # 1.5 k/uL (1.0-4.8) 01/01/24 08:18 Monocytes # 0.3 k/uL (0-1.0) 01/01/24 08:18 Eosinophils # 0.4 k/uL (0-0.7) 01/01/24 08:18 Basophils # 0.0 k/uL (0-0.2) 01/01/24 08:18 Sodium 142 mmol/L (137-145) 01/01/24 08:18 Potassium 4.0 mmol/L (3.5-5.1) 01/01/24 08:18 Chloride 110 mmol/L (98-107) H 01/01/24 08:18 Carbon Dioxide 20 mmol/L (22-30) L 01/01/24 08:18 Anion Gap 12 mmol/L 01/01/24 08:18 BUN 11 mg/dL (9-20) 01/01/24 08:18 Creatinine 1.06 mg/dL (0.66-1.25) 01/01/24 08:18 Est GFR (CKD-EPI)AfAm >90 (>60 ml/min/1.73 sqM) 01/01/24 08:18 Est GFR (CKD-EPI)NonAf >90 (>60 ml/min/1.73 sqM) 01/01/24 08:18 Glucose 106 mg/dL (74-99) H 01/01/24 08:[address] Glu mg/dL 97 mg/dL 01/01/24 08:18 Hemoglobin A1c 5.0 % (<=6.0) 01/01/24 08:18 Calcium 9.6 mg/dL (8.4-10.2) 01/01/24 08:18 Total Bilirubin 0.7 mg/dL (0.2-1.3) 01/01/24 08:18 Conjugated Bilirubin 0.0 mg/dL (0.0-0.3) 01/01/24 08:18 Unconjugated Bilirubin 0.4 mg/dL (0.0-1.1) 01/01/24 08:18 Delta Bilirubin 0.3 mg/dL (0.0-0.2) H 01/01/24 08:18 AST 20 U/L (17-59) 01/01/24 08:18 ALT 16 U/L (4-49) 01/01/24 08:18 Alkaline Phosphatase 102 U/L (38-126) 01/01/24 08:18 Total Protein 8.4 g/dL (6.3-8.2) H 01/01/24 08:18 Albumin 5.0 g/dL (3.5-5.0) 01/01/24 08:18 Triglycerides 147.00 mg/dL (0.00-149.00) 01/01/24 08:18 Cholesterol 219.00 mg/dL (0.00-200.00) H 01/01/24 08:18 LDL Cholesterol, Calc 148.5 mg/dL (0.0-131.0) H 01/01/24 08:18 VLDL Cholesterol, Calc 29.40 mg/dL (5.00-40.00) 01/01/24 08:18 HDL Cholesterol 41.10 mg/dL (40.00-60.00) 01/01/24 08:18 Cholesterol/HDL Ratio 5.33 Ratio 01/01/24 08:18 TSH 1.290 mIU/L (0.465-4.680) 01/01/24 08:18 Urine Color Yellow 12/31/23 13:41 Urine Appearance Clear (Clear) 12/31/23 13:41 Urine pH 5.5 (5.0-8.0) 12/31/23 13:41 Ur Specific [place] 1.021 (1.001-1.035) 12/31/23 13:41 Urine Protein Trace (Negative) H 12/31/23 13:41 Urine Glucose (UA) Negative (Negative) 12/31/23 13:41 Urine Ketones Negative (Negative) 12/31/23 13:41 Urine Blood Negative (Negative) 12/31/23 13:41 Urine Nitrite Negative (Negative) 12/31/23 13:41 Urine Bilirubin Negative (Negative) 12/31/23 13:41 Urine Urobilinogen <2.0 mg/dL (<2.0) 12/31/23 13:41 Ur Leukocyte Esterase Negative (Negative) 12/31/23 13:41 Urine Opiates Screen Not Detected (NotDetected) 12/31/23 13:41 Ur Oxycodone Screen Not Detected (NotDetected) 12/31/23 13:41 Urine Methadone Screen Not Detected (NotDetected) 12/31/23 13:41 Ur Barbiturates Screen Detected (NotDetected) H 12/31/23 13:41 Carbamazepine 8.1 UG/ML (4.0-12.0) 01/01/24 08:18 U Tricyclic Antidepress Not Detected (NotDetected) 12/31/23 13:41 Ur Phencyclidine Scrn Not Detected (NotDetected) 12/31/23 13:41 Ur Amphetamines Screen Not Detected (NotDetected) 12/31/23 13:41 U Methamphetamines Scrn Not Detected (NotDetected) 12/31/23 13:41 U Benzodiazepines Scrn Not Detected (NotDetected) 12/31/23 13:41 Urine Cocaine Screen Not Detected (NotDetected) 12/31/23 13:41 U Marijuana (THC) Screen Not Detected (NotDetected) 12/31/23 13:41 Influenza Type A (PCR) Not Detected (Not Detectd) 12/31/23 17:00 Influenza Type B (PCR) Not Detected (Not Detectd) 12/31/23 17:00 RSV (PCR) Not Detected (Not Detectd) 12/31/23 17:00 SARS-CoV-2 (PCR) Not Detected (Not Detectd) 12/31/23 17:00 Vital Signs Temp 97.9 F 01/07/24 07:03 Pulse 79 01/07/24 07:03 Resp 14 01/07/24 07:03 BP 129/90 01/07/24 07:03 Pulse Ox 99 01/07/24 07:03 FiO2 Patient Condition at Discharge: Stable Plan - Discharge Summary Discharge Rx Participant: Yes New Discharge Prescriptions: New hydrOXYzine HCL [Atarax] 50 mg PO DAILY PRN 15 Days #30 tab PRN Reason: Anxiety traZODone HCL [Desyrel] 50 mg PO HS 30 Days #30 tab Sertraline [Zoloft] 150 mg PO DAILY 30 Days #90 tab Continue carBAMazepine [TEGretol XR] 400 mg PO HS lamoTRIgine [LaMICtal] 200 mg PO BID #0 carBAMazepine [TEGretol] 200 mg PO BID Zonisamide [Zonegran] 400 mg PO HS PHENobarbitaL [Luminal] 129.6 mg PO HS Ibuprofen [Motrin] 600 mg PO Q6H PRN PRN Reason: Pain Or Fever > 100.5 Discontinued Cyclobenzaprine [Flexeril] 10 mg PO TID PRN PRN Reason: Muscle Spasm Cariprazine HCl [Vraylar] 3 mg PO HS Sertraline [Zoloft] 100 mg PO DAILY 30 Days #30 tab LORazepam [Ativan] 0.5 mg PO HS PRN PRN Reason: Anxiety/sleep traZODone HCL [Desyrel] 50 mg PO HS Discharge Medication List carBAMazepine [TEGretol XR] 400 mg PO HS 10/19/18 [History] lamoTRIgine [LaMICtal] 200 mg PO BID #0 06/28/20 [Rx] carBAMazepine [TEGretol] 200 mg PO BID 10/10/20 [History] PHENobarbitaL [Luminal] 129.6 mg PO HS 08/28/22 [History] Zonisamide [Zonegran] 400 mg PO HS 08/28/22 [History] Ibuprofen [Motrin] 600 mg PO Q6H PRN 12/31/23 [History] Sertraline [Zoloft] 150 mg PO DAILY 30 Days #90 tab 01/07/24 [Rx] hydrOXYzine HCL [Atarax] 50 mg PO DAILY PRN 15 Days #30 tab 01/07/24 [Rx] traZODone HCL [Desyrel] 50 mg PO HS 30 Days #30 tab 01/07/24 [Rx] Follow up Appointment(s)/Referral(s): [facility]Outside] - 01/13/24 3:30 pm ([place] ) Ana Maria Samson MD [Primary Care Provider] - 1-2 days Patient Instructions/Handouts: Depression (DC), Borderline Personality Disorder (DC) Activity/Diet/Wound Care/Special Instructions: Avoid the use of street drugs and alcohol. Take all medications as prescribed. When you are in need of refills on your medications, please contact your medical provider and/or outpatient psychiatrist/provider to have this done. Please go to your scheduled outpatient appointment for aftercare treatment. If symptoms return or become worse, call the crisis line at and/or go to the nearest emergency room for evaluation. National Suicide Hotline 988. Discharge Disposition: HOME SELF-CARE
== END 2024-01-07 12:05 | disposition home or self-care (01) | DRG 751 ==
LOC: EC 12:49 → 3MHU 21:17
PROVIDERS: ADMIT Psychiatry & Neurology Psychiatry; ATTEND Psychiatry & Neurology Psychiatry
DX: F33.2 Major depressive disorder, recurrent severe without psychotic features (principal); R45.851 Suicidal ideations; Z11.52 Encounter for screening for COVID-19; Z28.21 Immunization not carried out because of patient refusal; F43.25 Adjustment disorder with mixed disturbance of emotions and conduct; F60.3 Borderline personality disorder; F41.9 Anxiety disorder, unspecified; G43.909 Migraine, unspecified, not intractable, without status migrainosus; F90.9 Attention-deficit hyperactivity disorder, unspecified type; K21.9 Gastro-esophageal reflux disease without esophagitis; G47.33 Obstructive sleep apnea (adult) (pediatric); E03.9 Hypothyroidism, unspecified; R47.9 Unspecified speech disturbances; G40.909 Epilepsy, unspecified, not intractable, without status epilepticus; Z79.899 Other long term (current) drug therapy; Z91.51 Personal history of suicidal behavior; L98.9 Disorder of the skin and subcutaneous tissue, unspecified
CPT/HCPCS: 80053; 80061; 80156; 80306; 81003; 82075; 82248; 83036; 84443; 85025; 87636; 99291

== ENCOUNTER 2024-03-05 08:51 | Emergency (ER) | payer MEDICARE, MEDICAID ==
--- NOTE | 2024-03-05 09:29 | ED ---
General Adult HPI - General Chief complaint: Nausea/Vomiting/Diarrhea Stated complaint: Vomiting Time Seen by Provider: 03/05/24 08:56 Source: patient, RN notes reviewed Mode of arrival: ambulatory Limitations: no limitations - History of Present Illness Initial comments: 33-year-old male presents emergency department with chief complaint of right- sided pain, nausea vomiting. Patient states he has been throwing up throughout the night states mostly after coughing fits. Patient states she has had a cough for 1 week. Patient was seen in urgent care and was placed on prednisone. Patient states he has had a prior appendectomy and cholecystectomy. No dysuria no hematuria denies any change in bowel habits. No sick contacts. Patient states he is concerned about his epilepsy medication as he vomited up right after taking them this morning. - Related Data Home Medications Medication Instructions Recorded Confirmed carBAMazepine [TEGretol XR] 400 mg PO HS 10/19/18 03/05/24 carBAMazepine [TEGretol] 200 mg PO BID 10/10/20 03/05/24 PHENobarbitaL [Luminal] 129.6 mg PO HS 08/28/22 03/05/24 Zonisamide [Zonegran] 400 mg PO HS 08/28/22 03/05/24 Cariprazine HCl [Vraylar] 3 mg PO HS 03/05/24 03/05/24 Cyclobenzaprine [Flexeril] 10 mg PO TID PRN 03/05/24 03/05/24 Ibuprofen [Motrin] 800 mg PO Q8H PRN 03/05/24 03/05/24 LORazepam [Ativan] 0.5 mg PO HS PRN 03/05/24 03/05/24 Sertraline [Zoloft] 150 mg PO DAILY 03/05/24 03/05/24 predniSONE [Deltasone] 20 mg PO BID 03/05/24 03/05/24 Previous Rx's Medication Instructions Recorded lamoTRIgine [LaMICtal] 200 mg PO BID #0 06/28/20 traZODone HCL [Desyrel] 50 mg PO HS 30 Days #30 tab 01/07/24 Amoxic-Pot Clav 875-125Mg 1 tab PO Q12HR #20 tab 03/05/24 [Augmentin 875-125] Ondansetron Odt [Zofran Odt] 4 mg PO Q8HR PRN #10 tab 03/05/24 Allergies Allergy/AdvReac Type Severity Reaction Status Date / Time No Known Allergies Allergy Verified 03/05/24 10:38 Review of Systems ROS Statement: Those systems with pertinent positive or pertinent negative responses have been documented in the HPI. ROS Other: All systems not noted in ROS Statement are negative. Past Medical History Past Medical History: GERD/Reflux, Seizure Disorder, Skin Disorder, Thyroid Disorder Additional Past Medical History / Comment(s): has history of epilepsy, hx grand mal seizures since childhood, migraines, acne, Last seizure was 07/28/22 History of Any Multi-Drug Resistant Organisms: None Reported, Unobtainable Past Surgical History: Adenoidectomy, Appendectomy, Cholecystectomy, Tonsillectomy Additional Past Surgical History / Comment(s): oral surgery. I & D CYST ON BACK 08/19/22. MULTIPLE STITCHES Past Anesthesia/Blood Transfusion Reactions: Previous Problems w/ Anesthesia Additional Past Anesthesia/Blood Transfusion Reaction / Comment(s): SLOW TO WAKE FROM ANESTHESIA" Past Psychological History: ADD/ADHD, Anxiety, Depression Smoking Status: Never smoker Past Alcohol Use History: Occasional Past Drug Use History: None Reported - Past Family History Mother Family Medical History: Cancer Additional Family Medical History / Comment(s): breast cancer General Exam Limitations: no limitations General appearance: alert, in no apparent distress Head exam: Present: atraumatic, normocephalic, normal inspection Eye exam: Present: normal appearance, PERRL, EOMI. Absent: scleral icterus, conjunctival injection, periorbital swelling ENT exam: Present: normal exam, normal oropharynx, mucous membranes moist Neck exam: Present: normal inspection, full ROM. Absent: tenderness, men ingismus, lymphadenopathy Respiratory exam: Present: normal lung sounds bilaterally, chest wall tenderness (Mild right-sided). Absent: respiratory distress, wheezes, rales, rhonchi, stridor Cardiovascular Exam: Present: regular rate, normal rhythm, normal heart sounds. Absent: systolic murmur, diastolic murmur, rubs, gallop, clicks GI/Abdominal exam: Present: soft, tenderness (Mild right upper), normal bowel sounds. Absent: distended, guarding, rebound, rigid Course Vital Signs 03/05/24 03/05/24 09:07 11:25 Temperature 100.3 F H 98.3 F Pulse Rate 68 92 Respiratory 20 18 Rate Blood Pressure 145/65 135/70 O2 Sat by Pulse 97 97 Oximetry Medical Decision Making - Medical Decision Making Was pt. sent in by a medical professional or institution (SHAMA Darby, REVENUE INSPECTOR, urgent care, hospital, or assisted...) When possible be specific @ -No Did you speak to anyone other than the patient for history (EMS, parent, family, police, friend...)? What history was obtained from this source @ -No Did you review nursing and triage notes (agree or disagree)? Why? @ -I reviewed and agree with nursing and triage notes Were old charts reviewed (outside hosp., previous admission, EMS record, old EKG, old radiological studies, urgent care reports/EKG's, assisted records)? Report findings @ -No old charts were reviewed Differential Diagnosis (chest pain, altered mental status, abdominal pain women, abdominal pain men, vaginal bleeding, weakness, fever, dyspnea, syncope, headache, dizziness, GI bleed, back pain, seizure, CVA, palpatations, mental health, musculoskeletal)? @ -Differential Abdominal Pain Men: Appendicitis, cholecystitis, diverticulosis, ischemic bowel, pancreatitis, hepatitis, UTI, gastroenteritis, AAA, incarcerated hernia, bowel obstruction, constipation, inflammatory bowel, hepatitis, peptic ulcer disease, splenic infarction, perforated viscus, testicular torsion, this is not meant to be an all-inclusive list EKG interpreted by me (3pts min.). @ -none X-rays interpreted by me (1pt min.). @ -Chest x-ray shows right lower lobe pneumonia CT interpreted by me (1pt min.). @ -None done U/S interpreted by me (1pt. min.). @ -None done What testing was considered but not performed or refused? (CT, X-rays, U/S, labs)? Why? @ -None What meds were considered but not given or refused? Why? @ -None Did you discuss the management of the patient with other professionals (professionals i.e. SHAMA Darby, REVENUE INSPECTOR, lab, RT, psych nurse, social media content specialist, coding and reimbursement specialist, teacher, labor relations officer, case resolution specialist)? Give summary @ -No Was smoking cessation discussed for >3mins.? @ -No Was critical care preformed (if so, how long)? @ -No Were there social determinants of health that impacted care today? How? (Homelessness, low income, unemployed, alcoholism, drug addiction, transportation, low edu. Level, literacy, decrease access to med. care, care home, rehab)? @ -No Was there de-escalation of care discussed even if they declined (Discuss DNR or withdrawal of care, Hospice)? DNR status @ -No What co-morbidities impacted this encounter? (DM, HTN, Smoking, COPD, CAD, Cancer, CVA, ARF, Chemo, Hep., AIDS, mental health diagnosis, sleep apnea, morbid obesity)? @ -None Was patient admitted / discharged? Hospital course, mention meds given and route, prescriptions, significant lab abnormalities, going to OR and other pertinent info. @ -Discharge patient has evidence of pneumonia, patient's vomiting has resolved laboratory studies unremarkable. Patient was provided his morning medications states he was unable to take them at home with his concern of his epilepsy. Undiagnosed new problem with uncertain prognosis? @ -No Drug Therapy requiring intensive monitoring for toxicity (Heparin, Nitro, Insul in, Cardizem)? @ -No Were any procedures done? @ -No Diagnosis/symptom? @ -Pneumonia, nausea vomiting Acute, or Chronic, or Acute on Chronic? @ -Acute Uncomplicated (without systemic symptoms) or Complicated (systemic symptoms)? @ -Uncomplicated Side effects of treatment? @ -No Exacerbation, Progression, or Severe Exacerbation? @ -No Poses a threat to life or bodily function? How? (Chest pain, [place], [place], pneumonia, PE, COPD, DKA, ARF, appy, cholecystitis, CVA, Diverticulitis, Homicidal, Suicidal, threat to staff... and all critical care pts) @ -No - Lab Data Result diagrams: 03/05/24 09:55 03/05/24 09:55 Lab Results 03/05/24 03/05/24 03/05/24 Range/Units 09:55 09:55 09:55 WBC 6.8 (3.8-10.6) k/uL RBC 4.67 (4.30-5.90) m/uL Hgb 14.7 (13.0-17.5) gm/dL Hct 45.1 (39.0-53.0) % MCV 96.5 (80.0-100.0) fL MCH 31.6 (25.0-35.0) pg MCHC 32.7 (31.0-37.0) g/dL RDW 13.0 (11.5-15.5) % Plt Count 161 (150-450) k/uL MPV 7.2 Neutrophils % 82 % Lymphocytes % 10 % Monocytes % 5 % Eosinophils % 2 % Basophils % 0 % Neutrophils # 5.6 (1.3-7.7) k/uL Lymphocytes # 0.7 L (1.0-4.8) k/uL Monocytes # 0.3 (0-1.0) k/uL Eosinophils # 0.1 (0-0.7) k/uL Basophils # 0.0 (0-0.2) k/uL Sodium 140 (137-145) mmol/L Potassium 3.9 (3.5-5.1) mmol/L Chloride 112 H (98-107) mmol/L Carbon Dioxide 20 L (22-30) mmol/L Anion Gap 8 mmol/L BUN 10 (9-20) mg/dL Creatinine 0.82 (0.66-1.25) mg/dL Est GFR (CKD-EPI)AfAm >90 (>60 ml/min/1.73 sqM) Est GFR (CKD-EPI)NonAf >90 (>60 ml/min/1.73 sqM) Glucose 97 (74-99) mg/dL Calcium 9.3 (8.4-10.2) mg/dL Total Bilirubin 0.5 (0.2-1.3) mg/dL AST 24 (17-59) U/L ALT 15 (4-49) U/L Alkaline Phosphatase 117 (38-126) U/L Total Protein 8.0 (6.3-8.2) g/dL Albumin 4.8 (3.5-5.0) g/dL Lipase 65 (23-300) U/L Influenza Type A (PCR) Not Detected (Not Detectd) Influenza Type B (PCR) Not Detected (Not Detectd) RSV (PCR) Not Detected (Not Detectd) SARS-CoV-2 (PCR) Not Detected (Not Detectd) Disposition Clinical Impression: Pneumonia Disposition: HOME SELF-CARE Condition: Stable Instructions (If sedation given, give patient instructions): Pneumonia (ED) Additional Instructions: Please return to the Emergency Department if symptoms worsen or any other concerns. Prescriptions: Amoxic-Pot Clav 875-125Mg [Augmentin 875-125] 1 tab PO Q12HR #20 tab Ondansetron Odt [Zofran Odt] 4 mg PO Q8HR PRN #10 tab PRN Reason: Nausea Is patient prescribed a controlled substance at d/c from ED?: No Referrals: Ana Maria Samson MD [Primary Care Provider] - 1-2 days Time of Disposition: 11:14
[2024-03-05] MEDS: KETOROLAC 15 MG/ML 1 ML VIAL IVP STA (10:00)
[2024-03-05] MEDS: ONDANSETRON 4 MG/2 ML VIAL IVP STA (10:00)
[2024-03-05] MEDS: SODIUM CHLORIDE 0.9% 500 ML 500 ML IV STA (10:01)
[2024-03-05] MEDS: SODIUM CHLORIDE 0.9% 1,000 ML IV STA (10:01)
--- NOTE | 2024-03-05 10:10 | XR ---
EXAMINATION TYPE: XR chest 2V DATE OF EXAM: 03/05/2024 9:38 AM CLINICAL INDICATION:Male, 33 years old with history of fever cough; COMPARISON: Chest radiographs from 02/07/2022 TECHNIQUE: XR chest 2V Frontal and lateral views of the chest. FINDINGS: Lungs/Pleura: Right perihilar airspace opacity. There is no evidence of pleural effusion, focal conso lidation, or pneumothorax. Pulmonary vascularity: Unremarkable. Heart/mediastinum: Cardiomediastinal silhouette is unremarkable. Musculoskeletal: No acute osseous pathology. IMPRESSION: Right perihilar airspace opacities correlate for developing pneumonia.
[2024-03-05 10:17] LABS: Basophils % (A) 0 %; Eosinophils # (A) 0.1 k/uL (0-0.7); Eosinophils % (A) 2 %; HCT 45.1 % (39.0-53.0); HGB 14.7 gm/dL (13.0-17.5); Lymphocytes # (A) 0.7 k/uL (1.0-4.8); Lymphocytes % (A) 10 %; MCH 31.6 pg (25.0-35.0); MCHC 32.7 g/dL (31.0-37.0); MCV 96.5 fL (80.0-100.0); Mean Platelet Volume 7.2; Monocytes # (A) 0.3 k/uL (0-1.0); Monocytes % (A) 5 %; Neutrophils # (A) 5.6 k/uL (1.3-7.7); Neutrophils % (A) 82 %; Platelet Count 161 k/uL (150-450); RBC 4.67 m/uL (4.30-5.90); WBC 6.8 k/uL (3.8-10.6)
[2024-03-05 10:27] LABS: ALT 15 U/L (4-49); AST 24 U/L (17-59); African American GFR (CKD) >90 (>60 ml/min/1.73 sqM); Albumin 4.8 g/dL (3.5-5.0); Alkaline Phosphatase 117 U/L (38-126); Anion Gap 8 mmol/L; Blood Urea Nitrogen 10 mg/dL (9-20); Calcium 9.3 mg/dL (8.4-10.2); Carbon Dioxide 20 mmol/L (22-30); Chloride 112 mmol/L (98-107); Glucose 97 mg/dL (74-99); Lipase 65 U/L (23-300); Non-African American GFR(CKD) >90 (>60 ml/min/1.73 sqM); Potassium 3.9 mmol/L (3.5-5.1); Sodium 140 mmol/L (137-145); Total Bilirubin 0.5 mg/dL (0.2-1.3)
[2024-03-05] MEDS: carBAMazepine 200 MG TAB PO STA (11:19)
[2024-03-05] MEDS: lamoTRIgine 100 MG TAB PO STA (11:19)
[2024-03-05] MEDS: SERTRALINE 50 MG TAB PO STA (11:19)
[2024-03-05] MEDS: cefTRIAXone IN SWFI 1,000 MG/10 ML SYRINGE IVP STA (11:19)
[2024-03-05 11:27] VITALS: BP 135/70; PULSE 92; RESP 18; TEMP 98.3
== END 2024-03-05 11:27 | disposition home or self-care (01) ==
LOC: EC 08:51
DX: J18.9 Pneumonia, unspecified organism (principal)
CPT/HCPCS: 36415; 80053; 83690; 85025; 87636; 71046; 99284; 96374; 96375 ×2; 96361; J2405; J0696; J1885

== ENCOUNTER 2024-03-21 23:09 | Inpatient (IN) | payer MEDICARE, MEDICAID ==
[2024-03-21 23:52] VITALS: RESP 18
--- NOTE | 2024-03-22 | ED ---
Psych HPI - General Chief Complaint: Psychiatric Symptoms Stated Complaint: Suicidal Time Seen by Provider: 03/21/24 23:52 Source: patient, police, RN notes reviewed, old records reviewed Mode of arrival: ambulatory Limitations: no limitations - History of Present Illness Initial Comments: This is a 33-year-old male to the ER for psychiatric evaluation today patient petition by the police department for psychiatric evaluation, patient is a poor historian secondary to acute psychosis MD Complaint: feels depressed, other (Slade thoughts) -: days(s) Associated Psychiatric Symptoms: homicidal ideation, racing thoughts, auditory hallucinations History of same: Yes Quality: intermittent Improves With: none Worsens With: none Treatments Prior to Arrival: placed on mental health hold If Self Harm: admits thoughts of self harm - Related Data Home Medications Medication Instructions Recorded Confirmed carBAMazepine [TEGretol XR] 400 mg PO HS 10/19/18 03/24/24 carBAMazepine [TEGretol] 200 mg PO BID 10/10/20 03/24/24 PHENobarbitaL [Luminal] 129.6 mg PO HS 08/28/22 03/24/24 Zonisamide [Zonegran] 400 mg PO HS 08/28/22 03/24/24 Cyclobenzaprine [Flexeril] 10 mg PO TID PRN 03/05/24 03/24/24 Previous Rx's Medication Instructions Recorded lamoTRIgine [LaMICtal] 200 mg PO BID #0 06/28/20 Sertraline [Zoloft] 200 mg PO DAILY 30 Days #60 tab 03/30/24 traZODone HCL [Desyrel] 100 mg PO HS 30 Days #30 tab 03/30/24 Allergies Allergy/AdvReac Type Severity Reaction Status Date / Time No Known Allergies Allergy Verified 03/24/24 16:29 Review of Systems ROS Statement: Those systems with pertinent positive or pertinent negative responses have been documented in the HPI. ROS Other: All systems not noted in ROS Statement are negative. Past Medical History Past Medical History: GERD/Reflux, Seizure Disorder, Skin Disorder, Thyroid Disorder Additional Past Medical History / Comment(s): has history of epilepsy, hx grand mal seizures since childhood, migraines, acne, Last seizure was 07/28/22 History of Any Multi-Drug Resistant Organisms: None Reported, Unobtainable Past Surgical History: Adenoidectomy, Appendectomy, Cholecystectomy, Tonsillectomy Additional Past Surgical History / Comment(s): oral surgery. I & D CYST ON BACK 08/19/22. MULTIPLE STITCHES Past Anesthesia/Blood Transfusion Reactions: Previous Problems w/ Anesthesia Additional Past Anesthesia/Blood Transfusion Reaction / Comment(s): SLOW TO WAKE FROM ANESTHESIA" Past Psychological History: ADD/ADHD, Anxiety, Depression Smoking Status: Never smoker Past Alcohol Use History: Occasional Past Drug Use History: None Reported - Past Family History Mother Family Medical History: Cancer Additional Family Medical History / Comment(s): breast cancer General Exam Limitations: no limitations General appearance: alert, in no apparent distress Head exam: Present: atraumatic, normocephalic, normal inspection Eye exam: Present: normal appearance, PERRL, EOMI. Absent: scleral icterus, conjunctival injection, periorbital swelling ENT exam: Present: normal exam, mucous membranes moist Neck exam: Present: normal inspection. Absent: tenderness, meningismus, lymphadenopathy Respiratory exam: Present: normal lung sounds bilaterally. Absent: respiratory distress, wheezes, rales, rhonchi, stridor Cardiovascular Exam: Present: regular rate, normal rhythm, normal heart sounds. Absent: systolic murmur, diastolic murmur, rubs, gallop, clicks GI/Abdominal exam: Present: soft, normal bowel sounds. Absent: distended, tenderness, guarding, rebound, rigid Extremities exam: Present: normal inspection, full ROM, normal capillary refill. Absent: tenderness, pedal edema, joint swelling, calf tenderness Back exam: Present: normal inspection Neurological exam: Present: alert, oriented X3, CN II-XII intact Psychiatric exam: Present: normal affect, normal mood Skin exam: Present: warm, dry, intact, normal color. Absent: rash Course Vital Signs 03/21/24 23:46 Temperature 98.3 F Pulse Rate 73 Respiratory 18 Rate Blood Pressure 114/72 O2 Sat by Pulse 97 Oximetry - Reevaluation(s) Reevaluation #1: 03/22/24 01:32 Medical record is reviewed Reevaluation #2: 03/22/24 01:33 Patient symptoms are persistent Reevaluation #3: 03/22/24 01:33 Medical care for psychiatric evaluation Reevaluation #4: Was pt. sent in by a medical professional or institution (, PA, LITHOGRAPH DESIGNER, urgent care, hospital, or alf...) When possible be specific @ -no Did you speak to anyone other than the patient for history (EMS, parent, family, police, friend...)? What history was obtained from this source @ -no Did you review nursing and triage notes (agree or disagree)? Why? @ -agree Are old charts reviewed (outside hosp., previous admission, EMS record, old EKG, old radiological studies, urgent care reports/EKG's, alf records)? Report findings @ -yes Differential Diagnosis (chest pain, altered mental status, abdominal pain women, abdominal pain men, vaginal bleeding, weakness, fever, dyspnea, syncope, headache, dizziness, GI bleed, back pain, seizure, CVA, palpatations, mental health, musculoskeletal)? @ -prior EKG interpreted by me (3pts min.). @ -no X-rays interpreted by me (1pt min.). @ -no CT interpreted by me (1pt min.). @ -no U/S interpreted by me (1pt. min.). @ -no What testing was considered but not performed or refused? (CT, X-rays, U/S, labs)? Why? @ -none What meds were considered but not given or refused? Why? @ -none Did you discuss the management of the patient with other professionals (professionals i.e. , PA, LITHOGRAPH DESIGNER, lab, RT, psych nurse, licensed social worker, studio operation engineer, teacher, financial officer, manager case)? Give summary @ -no Was smoking cessation discussed for >3mins.? @ -no Was critical care preformed (if so, how long)? @ -no Were there social determinants of health that impacted care today? How? (Homelessness, low income, unemployed, alcoholism, drug addiction, transportation, low edu. Level, literacy, decrease access to med. care, group home, rehab)? @ -none Was there de-escalation of care discussed even if they declined (Discuss DNR or withdrawal of care, Hospice)? DNR status @ -no What co-morbidities impacted this encounter? (DM, HTN, Smoking, COPD, CAD, Cancer, CVA, ARF, Chemo, Hep., AIDS, mental health diagnosis, sleep apnea, morbid obesity)? @ -none Was patient admitted / discharged? Hospital course, mention meds given and route, prescriptions, significant lab abnormalities, going to OR and other pertinent info. @ - 33 male seen evaluate psychiatry and will admit for psychiatric evaluation and treatment Transferred to inpatient psychiatric evaluation Undiagnosed new problem with uncertain prognosis? @ -no Drug Therapy requiring intensive monitoring for toxicity (Heparin, Nitro, Insulin, Cardizem)? @ -no Were any procedures done? @ -no Diagnosis/symptom? @ -Mental health major depression suicidal thoughts Acute, or Chronic, or Acute on Chronic? @ -Acute Uncomplicated (without systemic symptoms) or Complicated (systemic symptoms)? @ -Complicated Side effects of treatment? @ -no Exacerbation, Progression, or Severe Exacerbation? @ -exacerbation Poses a threat to life or bodily function? How? (Chest pain, [place], [place], pneumonia, PE, COPD, DKA, ARF, appy, cholecystitis, CVA, Diverticulitis, Homicidal, Suicidal, threat to staff... and all critical care pts) @ -yes with history of mental health Reevaluation #5: Differential Mental Health Depression, anxiety, bipolar, psychosis, schizophrenia, borderline personality, situational depression, adjustment disorder, behavioral disorder, brain tumor, malingering, substance abuse, encephalopathy, medication reaction, dementia, hypothyroidism, degenerative neurologic disorder, lupus.... This is not meant to be all-inclusive list Medical Decision Making - Medical Decision Making 33 male seen evaluate psychiatry and will admit for psychiatric evaluation and treatment - Lab Data Lab Results 03/22/24 Range/Units 04:15 SARS-CoV-2 (PCR) Not Detected (Not Detectd) Disposition Clinical Impression: Depression, Major depression, Major depressive disorder, recurrent severe without psychotic features, Mood disorder Disposition: TRANSFER TO PSYCH HOSP/UNIT Condition: Fair Is patient prescribed a controlled substance at d/c from ED?: No
[2024-03-22] MEDS ORDERED: LORazepam 0.5 MG TAB PO PRN (03:47)
[2024-03-22] MEDS ORDERED: IBUPROFEN 600 MG TAB PO PRN (05:04)
[2024-03-22] MEDS ORDERED: ACETAMINOPHEN TAB 325 MG TAB PO PRN (05:04)
[2024-03-22 05:57] VITALS: BP 123/73; PULSE 70; TEMP 98
[2024-03-22] MEDS: lamoTRIgine 100 MG TAB PO SCH (06:18)
[2024-03-22] MEDS: carBAMazepine 200 MG TAB PO SCH (06:30)
[2024-03-22] MEDS ORDERED: MAG HYDROX/AL HYDROX/SIMETH 355 ML BOTTLE PO PRN (08:00)
[2024-03-22] MEDS ORDERED: hydrOXYzine HCL 25 MG TAB PO PRN (09:00)
[2024-03-22] MEDS ORDERED: MAGNESIUM HYDROXIDE 2,400 MG/30 ML CUP PO PRN (09:00)
[2024-03-22] MEDS: SERTRALINE 50 MG TAB PO SCH (09:51)
[2024-03-22] MEDS: NICOTINE 14MG/24HR PATCH TRANSDERM SCH (09:51)
[2024-03-22 11:35] LABS: Glucose,Whole Blood 96 mg/dL (70-110)
--- NOTE | 2024-03-22 12:09 | CT ---
EXAMINATION TYPE: CT brain wo con DATE OF EXAM: 03/22/2024 COMPARISON: 04/03/2021 HISTORY: 33-year-old male seizure/ hit front of head TECHNIQUE: Examination was done in axial plane without intravenous contrast. Coronal reconstruction s performed. CT DLP: 1210 mGycm Automated exposure control for dose reduction was used. FINDINGS: Prominent calvarial artifacts. Allowing for these limitations, no definite evidence of acute intracr anial hemorrhage, acute ischemic changes, mass, mass-effect, or extra-axial fluid collection. There is no effacement of cerebral sulci or basal subarachnoid cisterns. There is no hydrocephalus. There is no midline shift. Batista-white matter distinction is preserved. Asymmetrically smaller right lateral ventricle is unchanged from 2020 suggesting variant anatomy. Paranasal sinuses and mastoid air cells well pneumatized. Orbits and globes are intact. Mastoid air c ells well pneumatized. IMPRESSION: Scattered prominent calvarial artifact causing some limitation in assessment. No acute intracranial a bnormality seen.
[2024-03-22] MEDS ORDERED: ZONISAMIDE 100 MG CAP PO SCH (21:00)
[2024-03-22] MEDS ORDERED: NON FORMULARY DRUG (Cariprazine Hcl [Vraylar] 3 MG Capsule) PO SCH (21:00)
[2024-03-22] MEDS ORDERED: carBAMazepine 400 MG TAB.ER.12H PO SCH (21:00)
[2024-03-22] MEDS ORDERED: traZODone HCL 50 MG TAB PO SCH (21:00)
== END 2024-03-22 11:35 | disposition short-term general hospital (02) | DRG 882 ==
LOC: EC 23:09 → 3MHU 03-22 05:02
PROVIDERS: ADMIT Psychiatry & Neurology Psychiatry; ATTEND Psychiatry & Neurology Psychiatry
DX: F43.25 Adjustment disorder with mixed disturbance of emotions and conduct (principal); F33.2 Major depressive disorder, recurrent severe without psychotic features; G40.409 Other generalized epilepsy and epileptic syndromes, not intractable, without status epilepticus; R45.850 Homicidal ideations; F60.3 Borderline personality disorder; Z28.310 Unvaccinated for COVID-19; Z56.0 Unemployment, unspecified
CPT/HCPCS: 70450; 82075; 87635; 99285

== ENCOUNTER 2024-03-22 11:34 | Inpatient (IN) | payer MEDICARE, OTHER ==
[2024-03-22] MEDS: ONDANSETRON ODT 4 MG TAB PO PRN (17:59)
[2024-03-22] MEDS: LORazepam 2 MG/ML INJ IV PRN (19:20)
--- NOTE | 2024-03-22 21:10 | XR ---
EXAMINATION TYPE: XR chest 1V portable DATE OF EXAM: 03/22/2024 8:57 PM CLINICAL INDICATION:Male, 33 years old with history of aspiration; COMPARISON: 03/05/2024. TECHNIQUE: XR chest 1V portable Frontal view of the chest. FINDINGS: Lungs/Pleura: Hazy airspace opacities in left mid and lower lung. There is no evidence of pleural eff usion, focal consolidation, or pneumothorax. Pulmonary vascularity: Unremarkable. Heart/mediastinum: Cardiomediastinal silhouette is unremarkable. Musculoskeletal: No acute osseous pathology. Other findings: None IMPRESSION: There is a new hazy appearance of the left mid and lower lung possibly compatible with history of asp iration.
[2024-03-22 21:21] LABS: Basophils % (A) 0 %; Eosinophils # (A) 0.1 k/uL (0-0.7); Eosinophils % (A) 1 %; HCT 44.6 % (39.0-53.0); HGB 14.6 gm/dL (13.0-17.5); Lymphocytes # (A) 0.9 k/uL (1.0-4.8); Lymphocytes % (A) 10 %; MCH 31.8 pg (25.0-35.0); MCHC 32.7 g/dL (31.0-37.0); Mean Platelet Volume 7.4; Monocytes # (A) 0.5 k/uL (0-1.0); Monocytes % (A) 6 %; Neutrophils # (A) 7.3 k/uL (1.3-7.7); Neutrophils % (A) 82 %; Platelet Count 231 k/uL (150-450); RDW 13.2 % (11.5-15.5); WBC 8.9 k/uL (3.8-10.6)
[2024-03-22] MEDS: SODIUM CHLORIDE 0.9% 1,000 ML IV SCH (21:36)
[2024-03-22] MEDS: levETIRAcetam IV 2,000 MG in SODIUM CHLORIDE 0.9% 250 ML IVPB ONE (21:37)
[2024-03-22 21:40] LABS: ALT 15 U/L (4-49); AST 25 U/L (17-59); African American GFR (CKD) >90 (>60 ml/min/1.73 sqM); Albumin 4.8 g/dL (3.5-5.0); Albumin/Globulin Ratio 1.7; Alkaline Phosphatase 103 U/L (38-126); Anion Gap 8 mmol/L; Blood Urea Nitrogen 13 mg/dL (9-20); Calcium 9.5 mg/dL (8.4-10.2); Carbon Dioxide 20 mmol/L (22-30); Chloride 111 mmol/L (98-107); Globulin 2.8 g/dL; Glucose 130 mg/dL (74-99); Non-African American GFR(CKD) >90 (>60 ml/min/1.73 sqM); Potassium 4.1 mmol/L (3.5-5.1); Sodium 139 mmol/L (137-145); Total Bilirubin 0.7 mg/dL (0.2-1.3); Total Protein 7.6 g/dL (6.3-8.2)
[2024-03-22] MEDS: ONDANSETRON 4 MG/2 ML VIAL IVP PRN (21:53)
[2024-03-22] MEDS: carBAMazepine 200 MG TAB PO SCH (21:56)
[2024-03-22] MEDS: ZONISAMIDE 100 MG CAP PO SCH (21:56)
[2024-03-22] MEDS: carBAMazepine 400 MG TAB.ER.12H PO SCH (21:56)
[2024-03-22] MEDS: lamoTRIgine 100 MG TAB PO SCH (22:01)
[2024-03-22] MEDS: NON FORMULARY DRUG (Cariprazine Hcl [Vraylar] 3 MG Capsule) PO SCH (22:16)
--- NOTE | 2024-03-22 22:58 | EEG ---
ELECTROENCEPHALOGRAM REPORT PREAMBLE: This is a 33-year-old male with history of epilepsy, came with breakthrough seizure. CURRENT MEDICATIONS: Include, 1. Lamictal. 2. Tegretol. 3. Phenobarbital. EEG FINDINGS: This is a 21-channel digital EEG recorded with video component, utilizing 10/20 international system with referential and bipolar montages. Background consists of somewhat disorganized activity consisting of mixed frequencies of 4 to 6 hertz theta activity intermixed with some fast frequency beta activity seen in bihemispheric region. Background does not seem to be reactive to eye opening or closing. There is frequent somewhat generalized sharp and slow wave activity seen in bihemispheric region, slightly more prominent in the frontoparietal region. Sometimes, these sharp and slow waves can occur rhythmically at 3 hertz. At times, there are poly spikes and slow waves also seen. There were rare instances of left temporal sharp waves seen. No electrographic seizure was however recorded. Photic driving response was not seen. Different stages of sleep were not seen. IMPRESSION: 1. Abnormal EEG due to presence of epileptiform activity with generalized sharp and slow waves, maximal involving frontal-parietal region, sometimes occurring repeatedly at 3 hertz for a second. Occasional runs of left temporal sharp waves were seen. This implies tendency for focal and generalized onset seizures. 2. Background slowing and disorganization, suggestive of moderate encephalopathy. 3. No electrographic seizure was recorded. MMODL / IJN: [id number] /
--- NOTE | 2024-03-22 23:28 | P.HPIM ---
History of Present Illness H&P Date: 03/22/24 Chief Complaint: Status seizure HISTORY OF PRESENT ILLNESS: 33-year-old one of our office patient with past medical history of depression, hypothyroidism, GERD, epilepsy, obstructive sleep apnea, with history of speech impediment, history of acne who has been seen in our office for the last few years with Dr. Samson has been in and out the psych unit last few years for suicidal ideation and depression. He presented to the emergency department close the midnight last night by ambulance for evaluation patient petition by police department for psychiatric evaluation he had racing thoughts along with auditory hallucination and homicida l ideation he told his he does not feel safe he wants to be checked in the hospital. Was seen and evaluated by the emergency department no blood work was done with the only exception of COVID test which was negative. Patient apparently was admitted to the psych unit at [facility] is antiseizure medication most of his medication from the night before because he needed to the ER almost the midnight did not take his evening dose. He was seen in the psych unit this morning and was acting well I seen him and examined him was very pleasant calling about not feeling safe for himself and his at home reason why he called for wellness check to be seen at the emergency department for admission. He was concerned about missing his medication from last night was told his medication will carry on from this morning. The A Team was called to the psych unit for seizure patient was seen and o bserved having tonic-clonic seizure at the psych unit apparently decided transferred to medical floor with no order at the time. I received a call that patient is having the second seizure while he is up on the first floor. Was giving at this time lorazepam 1 mg and giving an order to repeat it again up to 4 times a day if needed and his home meds were restarted again the patient developed to have intractable nausea throughout many times could not tolerate any oral meds. Was seen in the afternoon and evaluated decided to load him with [facility] neuro were consulted but did not see patient so far patient supposed to have another EEG at this time. In the meanwhile the rest of his medication i ncluding his Lamictal 200 mg twice a day, Tegretol 200 mg twice a day and 400 mg at bedtime along with phenobarbital 129.6 mg at bedtime with the lorazepam 0.5 mg at nightly overall resume. Not clear how much medication he was able to keep this evening because of the nausea and vomiting but loading him with Keppra. He is seeing neurology by tomorrow and that he is run his EEG and decide on further management. CT of the brain was ordered and done which shows scattered prominent calvarial artifact causing some limitation in assessment with no acute intracranial abnormality. Chest x-ray also was ordered showed new hazy appearance in the left middle and lower lung compatible with history of aspiration. EEG was performed before the end of the day and showed an abnormal EEG due to presence o f epileptiform activity with generalized sharp and slow waves maximal involving the frontal and parietal lobe sometimes occurring repeatedly at 3 Hz/s. And background showing some moderate encephalopathy. REVIEW OF SYSTEMS: CONSTITUTIONAL: Well-developed no acute respiratory distress. Still confused status post seizure semisleep. EYES: No icterus sclerae, no conjunctivitis. EARS, NOSE, MOUTH, THROAT, and FACE: No sore throat, lymphadenopathy, carotid br uits or deformity. RESPIRATORY: No SOB cough or wheezes. CARDIOVASCULAR: No CP, Palpitation, PND, Orthopnea, or angina. GASTROINTESTINAL: No Abd pain, Nausea or vomiting, no Diarrhea or constipation, No GI Bleed, no distention or masses. GENITOURINARY: Negative for Hematuria or UTI, no kidney stones. INTEGUMENT/BREAST: Negative for any muscular injury with mild osteoarthritis.. HEMATOLOGIC/LYMPHATIC: Negative for bleed or purpura. MUSCULOSKELTAL: Negative for Myalgia or arthralgia. NEURLOGICAL: No LOC, Sz or syncope, blurred vision dizziness or abnormality.. BEHAVIORAL/PSYCH: Negative. ENDOCRINE: Negative. PHYSICAL EXAMINATION: General Appearance: Alert, cooperative, no distress, appears stated age. Neck HEENT: Supple, no lymphadenopathy, no thyroid enlargement, no carotid bruits. Lungs: Decreased breath sound bilaterally specially left side positive for rhonc hi with mild crackles. Chest Wall: Chest wall normal expansion with deep inspiration no tenderness and no deformity was found on exam, no costochondral pain or discomfort. Heart: Regular rate and rhythm, S1, S2 normal, no murmur, rub or gallop. Back: Symmetric, no curvature, ROM normal, no CVA tenderness. Abdomen: Soft, non-tender, bowel sounds active all four quadrants, no masses, no organomegaly. Extremities: Extremities normal, atraumatic, no cyanosis or edema. Pulses: 2+ and symmetric. Skin: Skin color, texture, tugor normal, no rashes or lesions. Neurologic: Alert not oriented and in deep sleep still withdrawing all his 4 extremity with no weakness not being able to do any gait exam at this point. ASSESSMENT AND PLAN: _Status seizure: With recurrent episode over 4 times today from missing probably his antiseizure medication late in the evening yesterday despite starting medication regular with low the patient log for signing in the hospital at the ER was close to [id number] which is midnight he already missed his evening medication of yesterday. The patient be loaded with Keppra 2000 mg a day, neuroconsultation, EEG and brain CAT scan were ordered and done also drug screen and lab will be done as well. _Encephalopathy: Finding consistent with abnormality on EEG and brain CAT scan, most likely from the severity of his seizure along with medication side effect. _Aspiration pneumonia: With the multi seizure he has recurrent presentation patient be started on 1 dose of Zosyn for today switch patient to oral doxycycline as soon as possible continue Ventolin and albuterol treatment if needed. _Homicidal and suicidal ideation: Patient was seen by psych and he will be transferred back to psych as soon as stable medically. _Depression: Has been on Vraylar along with Ativan and Zoloft. Severe GERD: Remain on Protonix 40 mg a day. _Chronic lower back pain: Has been on ibuprofen and Flexeril. Severe insomnia: Remain on trazodone 50 mg at bedtime. _History of migraine: He is Motrin 800mg As need for it. _Severe anxiety and panic attacks: Still on fluoxetine along with lorazepam. _GI prophylaxis: Continue pantoprazole _CODE STATUS: Full code. Admit patient to the inpatient service for more than 2 night stay. Past Medical History Past Medical History: GERD/Reflux, Seizure Disorder, Skin Disorder, Thyroid Disorder Additional Past Medical History / Comment(s): has history of epilepsy, hx grand mal seizures since childhood, migraines, acne, Last seizure was 07/28/22 History of Any Multi-Drug Resistant Organisms: None Reported Past Surgical History: Adenoidectomy, Appendectomy, Cholecystectomy, Tonsillectomy Additional Past Surgical History / Comment(s): oral surgery. I & D CYST ON BACK 11/21/22. MULTIPLE STITCHES Past Anesthesia/Blood Transfusion Reactions: Previous Problems w/ Anesthesia Additional Past Anesthesia/Blood Transfusion Reaction / Comment(s): SLOW TO WAKE FROM ANESTHESIA" Smoking Status: Never smoker - Past Family History Mother Family Medical History: Cancer Additional Family Medical History / Comment(s): breast cancer Medications and Allergies Home Medications Medication Instructions Recorded Confirmed Type carBAMazepine [TEGretol XR] 400 mg PO HS 10/19/18 03/22/24 History lamoTRIgine [LaMICtal] 200 mg PO BID #0 06/28/20 03/22/24 Rx carBAMazepine [TEGretol] 200 mg PO BID 10/10/20 03/22/24 History PHENobarbitaL [Luminal] 129.6 mg PO HS 08/28/22 03/22/24 History Zonisamide [Zonegran] 400 mg PO HS 08/28/22 03/22/24 History traZODone HCL [Desyrel] 50 mg PO HS 30 Days #30 tab 01/07/24 03/22/24 Rx Cariprazine HCl [Vraylar] 3 mg PO HS 03/05/24 03/22/24 History Cyclobenzaprine [Flexeril] 10 mg PO TID PRN 03/05/24 03/22/24 History Ibuprofen [Motrin] 800 mg PO Q8H PRN 03/05/24 03/22/24 History LORazepam [Ativan] 0.5 mg PO HS PRN 03/05/24 03/22/24 History Ondansetron Odt [Zofran Odt] 4 mg PO Q8HR PRN #10 tab 03/05/24 03/22/24 Rx Sertraline [Zoloft] 150 mg PO DAILY 03/05/24 03/22/24 History Allergies Allergy/AdvReac Type Severity Reaction Status Date / Time No Known Allergies Allergy Verified 03/21/24 23:51 Physical Exam Vitals: Vital Signs Temp Pulse Resp BP Pulse Ox 03/22/24 13:23 113 H 126/54 97 03/22/24 12:34 98.7 F 77 16 118/73 96 Intake and Output 03/21/24 03/22/24 03/22/24 22:59 06:59 14:59 Other: # Voids 1 Weight 79.6 kg Results CBC & Chem 7: 03/22/24 20:54 03/22/24 20:54
[2024-03-23] MEDS: traZODone HCL 50 MG TAB PO SCH (01:06)
[2024-03-23] MEDS: PIPERACILLIN-TAZOBACTAM 3.375 GM in SODIUM CHLORIDE 0.9% 100 ML IVPB SCH (01:09)
[2024-03-23] MEDS: SERTRALINE 50 MG TAB PO SCH (09:19)
[2024-03-23] MEDS: PANTOPRAZOLE 40 MG TABLET PO SCH (09:19)
--- NOTE | 2024-03-23 09:36 | P.CNNES ---
History of Present Illness Consult date: 03/22/24 Requesting physician: Luciano Carson Reason for Consult: Seizure History of Present Illness: Patient is a 33-year-old male with longstanding history of epilepsy was brought to the hospital after petition by the police department for psychiatric evaluation. Patient was noted to have acute psychosis with homicidal thoughts. Patient's vitals in the ER was blood pressure 114/72, pulse rate 73 temperature 98.3. Patient was admitted to the mental health unit. He apparently was at the mental health unit only for couple hours when he had a seizure at around 11 AM this morning, fell, bruised top of his forehead on the left side. He was transferred to medical floor for further evaluation of seizure. Today at around 1:20 PM, patient had another seizure. He came from the bathroom, sat on the bed and started seizing. It lasted for about 1.5 minutes as per nursing report. No report of tongue bite or loss of control of urine. The nurse reported that he did become stiff with a seizure but there was no violent shaking. When coming from the bathroom before seizure, he was walking slow but does not use any assistive device. Patient at present states that he has not had any seizures since July 2022. His seizures has been very well-controlled. Patient states that he usually takes his night medications before he goes to bed. However he was not able to take his night medications last night. This morning he did receive his Lamictal and Tegretol. He missed his last night dose of phenobarbital, Lamictal and Tegretol. Vital signs on arrival blood pressure 114/72, pulse rate 73 temperature 98.3. His vitals has been stable. Blood test shows normal CBC, CMP, coronavirus PCR negative. TSH normal. Chest x-ray showed new hazy appearance of the left mid and lower lung possibly compatible with history of aspiration. CT head revealed scattered prominent calvarial artifact causing some limitation in assessment. No acute intracranial abnormality seen. I personally reviewed CT head, and th ere is no significant calvarial artifacts on my review. No acute process. Patient has history of seizure disorder since he was 18 months old. He used to follow-up with Dr. Chadwick at [facility]. Patient was seen by Dr. Thakkar in May 2020, but was felt his seizure occurred because of missing seizure medication. Currently patient takes Lamictal 200 mg twice daily, Tegretol 200 mg twice daily and 400 mg at bedtime, phenobarbital 129.6 mg at bedtime he also takes trazodon e, lorazepam as needed, Vraylar 3 mg at bedtime, 6 Zoloft 150 mg and Flexeril. Review of Systems Patient does admit to having mild headache. Denies any chest pain shortness of breath abdominal pain. He did have some nausea vomiting after he fell and after the seizure. Patient does have psychiatric problem. ROS unobtainable: due to mental status Past Medical History Past Medical History: GERD/Reflux, Seizure Disorder, Skin Disorder, Thyroid Disorder Additional Past Medical History / Comment(s): has history of epilepsy, hx grand mal seizures since childhood, migraines History of Any Multi-Drug Resistant Organisms: None Reported Past Surgical History: Adenoidectomy, Appendectomy, Cholecystectomy, Tonsillectomy Additional Past Surgical History / Comment(s): oral surgery. I & D CYST ON BACK 08/19/22 Past Anesthesia/Blood Transfusion Reactions: Previous Problems w/ Anesthesia Additional Past Anesthesia/Blood Transfusion Reaction / Comment(s): SLOW TO WAKE FROM ANESTHESIA" Past Psychological History: ADD/ADHD, Anxiety, Bipolar, Depression Additional Psychological History / Comment(s): per pt-he was in special education classes thru out school(has some intellectual disabilty), speech impediment. able to read and write fine. hx cluster b disorder Smoking Status: Never smoker Past Alcohol Use History: None Reported Additional Past Alcohol Use History / Comment(s): Denies any alcohol intake since he is on probation til April 2019 Past Drug Use History: None Reported Additional Drug Use History / Comment(s): Denies any illicit drugs or any marijuana use - Past Family History Mother Family Medical History: Cancer Additional Family Medical History / Comment(s): breast cancer Medications and Allergies Home Medications Medication Instructions Recorded Confirmed Type carBAMazepine [TEGretol XR] 400 mg PO HS 10/19/18 03/22/24 History lamoTRIgine [LaMICtal] 200 mg PO BID #0 06/28/20 03/22/24 Rx carBAMazepine [TEGretol] 200 mg PO BID 10/10/20 03/22/24 History PHENobarbitaL [Luminal] 129.6 mg PO HS 08/28/22 03/22/24 History Zonisamide [Zonegran] 400 mg PO HS 08/28/22 03/22/24 History traZODone HCL [Desyrel] 50 mg PO HS 30 Days #30 tab 01/07/24 03/22/24 Rx Cariprazine HCl [Vraylar] 3 mg PO HS 03/05/24 03/22/24 History Cyclobenzaprine [Flexeril] 10 mg PO TID PRN 03/05/24 03/22/24 History Ibuprofen [Motrin] 800 mg PO Q8H PRN 03/05/24 03/22/24 History LORazepam [Ativan] 0.5 mg PO HS PRN 03/05/24 03/22/24 History Ondansetron Odt [Zofran Odt] 4 mg PO Q8HR PRN #10 tab 03/05/24 03/22/24 Rx Sertraline [Zoloft] 150 mg PO DAILY 03/05/24 03/22/24 History Allergies Allergy/AdvReac Type Severity Reaction Status Date / Time No Known Allergies Allergy Verified 03/21/24 23:51 Physical Examination - Vital Signs Vital Signs: Vital Signs Temp Pulse Resp BP Pulse Ox 03/22/24 13:23 113 H 126/54 97 03/22/24 12:34 98.7 F 77 16 118/73 96 Intake and Output 03/22/24 03/22/24 03/22/24 06:59 14:59 22:59 Other: # Voids 1 Weight 79.6 kg Patient is a young male, who is laying in the bed, in no distress. Patient is slightly lethargic, groggy, but does wake up on calling his name repetitively. Patient knows it is February 2024 and that he is in [facility] in [facility]. Speech and language functions are normal. Patient can name and repeat very well. No aphasia or dysarthria. Attention, concentration is limited and fund of knowledge is also limited because of mentation. On cranial nerve examination, pupils are equal, round and reacting to light, visual moya are full on confrontation, with no neglect on double simultaneous stimulation. Extraocular muscles are intact with no nystagmus. Face is symmet vonnie, tongue protrudes to the midline. Palatal elevation and sensation normal, hearing and shoulder shrug normal, facial sensation normal. On muscle strength testing, there is no pronator drift and the strength is normal in arms and legs distally and proximally. Deep tendon reflexes are symmetric 2+ and plantars downgoing. Sensory to touch is equal with no neglect on double simultaneous stimulation. Cerebellar function showed no ataxia for [id number] testing. No dysdiadochokinesia. No ataxia for [id number] testing on either side. Tone and bulk of muscles normal. Gait deferred.. On general examination, there is no carotid bruit or murmur, S1-S2 audible. Chest is clear on consultation. Abdomen is soft nontender. No organomegaly, bowel sounds present. Peripheral pulses are present. No peripheral edema. Results - Laboratory Findings CBC and BMP: 03/22/24 20:54 03/22/24 20:54 Assessment and Plan Assessment: * Longstanding history of seizure disorder, had a breakthrough seizure, likely due to missing his night dose of seizure medication, last night. * Medically intractable epilepsy. * Psychosis Plan: * EEG was performed, which was abnormal due to presence of epileptiform activity with generalized sharp and slow wave, maximal involving frontal parietal region, sometimes occurring repetitively at 3 Hz for a second. Occasional runs of left temporal sharp waves were seen. This implies tendency for focal and generalized onset seizures. Background slowing and disorganization, suggestive of moderate encephalopathy. No electrographic seizure was recorded. * Patient's seizure likely occurred because of missing night dose of medication particularly phenobarbital. Patient will be given phenobarbital 129.6 mg stat. If he has any breakthrough seizure then he may still get the routine dose of phenobarbital 129.6 mg at bedtime. If no seizures can then skip the dose tonight. * Resume Lamictal 200 mg twice daily and Tegretol 200 mg twice daily and 400 mg at bedtime. * We will check Tegretol level, Lamictal level. Also check phenobarbital level. * Seizure precautions, fall risk precautions. * Neurology will follow. Thank you for the consult. Time with Patient: Greater than 30
[2024-03-23 11:36] LABS: Amphetamine Screen,Urine Not Detected (NotDetected); Benzodiazepines Screen,Urine Detected (NotDetected); Cocaine Screen,Urine Not Detected (NotDetected); Opiate Screen,Urine Not Detected (NotDetected); Phencyclidine Screen,Urine Not Detected (NotDetected)
[2024-03-23 11:37] LABS: Barbiturate Screen,Urine Detected (NotDetected); Methadone Screen, Urine Not Detected (NotDetected); Oxycodone Screen, Urine Not Detected (NotDetected); Tricyclic Antidepressant,Urine Not Detected (NotDetected); Urn Cannabinoid Scrn Not Detected (NotDetected)
--- NOTE | 2024-03-23 14:09 | P.CN ---
Psychiatric Consult - . Consult date: 03/23/24 Consult:: 03/23/24 13:48 IDENTIFYING DATA: Patient is a Patient is a 33-year-old male with significant history of seizure disorder, depressive disorder, and borderline personality disorder. . Lives with and son. Has a son. Unemployed, receives social security Reason for consultation: Psychiatric evaluation HPI: Patient presented to the hospital initially on 03/22 and according to ER report patient was making homicidal threats towards his mother. Patient was brought in by police for evaluation. Patient was positive for barbiturates and benzodiazepines. Patient has a significant history of borderline personality d isorder major depression and epilepsy. Patient was admitted to the mental health unit for only a few hours and had a tonic-clonic seizure on the floor, injuring his head on the fall. Patient was then evaluated by the ED team, transferred to medical right away. Patient was seen today for psychiatric follow-up. Patient was laying in bed, appeared to be fairly lethargic today, he has poor hygiene and grooming. He states that "stuff was building up" and claims that he was having thoughts of harming "the MECHANICAL FACILITIES TECHNICIAN of [facility]". He states that she does not know how to "cut ties" and states that she was being invasive with him. She claims that she was sending them cards and would not stay away. He states that he was feeling angry towards her. States that he was having thoughts to harm her however did not have a specific plan. He does not have any weapons as well. He claims that he called the police instead to come to the hospital. He claims that he is not having suicidal thoughts at this time, does state that "if she stays away then I will not" referring to homicidal thoughts towards his mother. He claims that his sleep has been fair, appetite has been fair. At this time patient denies any auditory or visual hallucinations. Patient denies using recreational drugs. Patient appears heavily sedated PAST PSYCHIATRIC HISTORY: Patient has previous diagnosis of depressive disorder and borderline personality disorder. He is currently prescribed trazodone Zoloft and Vraylar. He was last hospitalized on this psychiatric unit in December 2023. He has multiple admissions for psychiatric care. He [facility] with [facility]. He has attempted suicide in the past by means of overdosing. PMH:As per ER note ALLERGIES: as per EMR CHEMICAL DEPENDENCY HISTORY: as per HPI FAMILY PSYCHIATRIC/SUBSTANCE USE HISTORY: denies SOCIAL HISTORY: Patient was born and raised in [place], [place]. He is currently and has a 8-year-old son. He has an associates degree. He is currently on disability.. MENTAL STATUS EXAM: General Appearance: Patient appears to be older than stated age, is fairly lethargic, directable, and attempts to cooperate. Evasive at times. Patient appears to have poor hygiene and grooming.Wearing a hospital gown. Disheveled appearance. Behavior: Patient is seated without any agitated behavior. Sedated Speech: Patient's speech is fluent and nonpressured. Mildly dysarthric secondary to lack of dentition. Mood/Affect: Patient reports their mood is depressed, affect is congruent and constricted. Suicidality/Homicidality: Patient denies having any homicidal ideation intent or plan however did make vague threats of harm to his mother. Denies any suicidal ideations no intent or plan Perceptions: Patient denies any visual hallucinations and denies any auditory hallucinations Though content/process: There is no evidence of any delusional thought content and thought process is linear and goal-directed. [place]. Poverty of content Memory and concentration: AOX3, grossly intact for the purposes of this session. 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 -Would recommend the following medication changes/additions: Can continue with current psychiatric medications as prescribed. -Continue 1:1 sitter for safety until patient is safely transferred to the mental health unit. -Cannot leave AMA at this time. Patient will need a petition and certification if attempting to leave AMA. -When medically stable, patient is eligible for transfer to a psych bed when available. Ordered CT scan of head without contrast after fall and head contusion. -Appreciate neurology recommendations. -Communicated plan to patient's nurse -Will hold off on psychiatric transfer until at least 24 hours given patient's fall and seizure. -Psychiatry will sign off at this time -Please contact with any questions. 03/23/24 14:02
--- NOTE | 2024-03-23 14:38 | CT ---
EXAMINATION TYPE: CT brain wo con DATE OF EXAM: 03/23/2024 COMPARISON: 03/22/2024 HISTORY: recent fall r/o hemorrhage CT DLP: [address] of the brain was performed. The ventricles, basal cisterns and sulci overlying the cerebral convexities demonstrate a normal appe arance. There is no evidence for intracranial hemorrhage or sulcal effacement. No mass effects are seen. Osseous calvarium is intact. If symptoms persist consider MRI as clinically warranted. IMPRESSION: 1. No acute intracranial process is seen at this time.
--- NOTE | 2024-03-23 23:45 | P.PN ---
Subjective Progress Note Date: 03/23/24 HISTORY OF PRESENT ILLNESS: 33-year-old one of our office patient with past medical history of depression, hypothyroidism, GERD, epilepsy, obstructive sleep apnea, with history of speech impediment, history of acne who has been seen in our office for the last few years with Dr. Samson has been in and out the psych unit last few years for suicidal ideation and depression. He presented to the emergency department close the midnight last night by ambulance for evaluation patient petition by police department for psychiatric evaluation he had racing thoughts along with auditory hallucination and homicidal ideation he told his he does not feel safe he wants to be checked in the hospital. Was seen and evaluated by the emergency department no blood work was done with the only exception of COVID test which was negative. Patient apparently was admitted to the psych unit at [facility] is antiseizure medication most of his medication from the night before because he needed to the ER almost the midnight did not take his evening dose. He was seen in the psych unit this morning and was acting well I seen him and examined him was very pleasant calling about not feeling safe for himself and his at home reason why he called for wellness check to be seen at the emergency department for admission. He was concerned about missing his medication from last night was told his medication will carry on from this morning. The A Team was called to the psych unit for seizure patient was seen and observed having tonic-clonic seizure at the psych unit apparently decided transferred to medical floor with no order at the time. I received a call that patient is having the second seizure while he is up on the first floor. Was giving at this time lorazepam 1 mg and giving an order to repeat it again up to 4 times a day if needed and his home meds were restarted again the patient developed to have intractable nausea throughout many times could not tolerate a ny oral meds. Was seen in the afternoon and evaluated decided to load him with Erin neuro were consulted but did not see patient so far patient supposed to have another EEG at this time. In the meanwhile the rest of his medication including his Lamictal 200 mg twice a day, Tegretol 200 mg twice a day and 400 mg at bedtime along with phenobarbital 129.6 mg at bedtime with the lorazepam 0.5 mg at nightly overall resume. Not clear how much medication he was able to keep this evening because of the nausea and vomiting but loading him with Keppra. He is seeing neurology by tomorrow and that he is run his EEG and decide on further management. CT of the brain was ordered and done which shows scattered prominent calvarial artifact causing some limitation in assessment with no acute intracranial abnormality. Chest x-ray also was ordered showed new hazy appearance in the left middle and lower lung compatible with history of aspiration. EEG was performed before the end of the day and showed an abnormal EEG due to presence of epileptiform activity with generalized sharp and slow waves maximal involving the frontal and parietal lobe sometimes occurring repeatedly at 3 Hz/s. And background showing some moderate encephalopathy. 03/23/2024: Patient had no further seizure activity was loaded with Keppra yesterday is back on his home meds also been treated for aspiration pneumonia with Zosyn for now initially moved to the psych unit patient be switched to Augmentin for the same purpose. Neurology has seen patient in consultation for the long-acting seizure they believed the outbreak happened because of missing medication mostly, EEG was performed which was abnormal due to presence of epileptiform resume his seizure medication recheck Lamictal and Tegretol level. Also continue phenobarbital. Also psych seeing patient today to believe if patient has no seizure activity in 24 hours can be transferred back to psych living around Mr. Yrn roberts. REVIEW OF SYSTEMS: CONSTITUTIONAL: Well-developed no acute respiratory distress. Still confused status post seizure semisleep. EYES: No icterus sclerae, no conjunctivitis. EARS, NOSE, MOUTH, THROAT, and FACE: No sore throat, lymphadenopathy, carotid bruits or deformity. RESPIRATORY: No SOB cough or wheezes. CARDIOVASCULAR: No CP, Palpitation, PND, Orthopnea, or angina. GASTROINTESTINAL: No Abd pain, Nausea or vomiting, no Diarrhea or constipation, No GI Bleed, no distention or masses. GENITOURINARY: Negative for Hematuria or UTI, no kidney stones. INTEGUMENT/BREAST: Negative for any muscular injury with mild osteoarthritis.. HEMATOLOGIC/LYMPHATIC: Negative for bleed or purpura. MUSCULOSKELTAL: Negative for Myalgia or arthralgia. NEURLOGICAL: No LOC, Sz or syncope, blurred vision dizziness or abnormality.. BEHAVIORAL/PSYCH: Negative. ENDOCRINE: Negative. PHYSICAL EXAMINATION: General Appearance: Alert, cooperative, no distress, appears stated age. Neck HEENT: Supple, no lymphadenopathy, no thyroid enlargement, no carotid bru its. Lungs: Decreased breath sound bilaterally specially left side positive for rhonchi with mild crackles. Chest Wall: Chest wall normal expansion with deep inspiration no tenderness and no deformity was found on exam, no costochondral pain or discomfort. Heart: Regular rate and rhythm, S1, S2 normal, no murmur, rub or gallop. Back: Symmetric, no curvature, ROM normal, no CVA tenderness. Abdomen: Soft, non-tender, bowel sounds active all four quadrants, no masses, no organomegaly. Extremities: Extremities normal, atraumatic, no cyanosis or edema. Pulses: 2+ and symmetric. Skin: Skin color, texture, tugor normal, no rashes or lesions. Neurologic: Alert not oriented and in deep sleep still withdrawing all his 4 extremity with no weakness not being able to do any gait exam at this point. ASSESSMENT AND PLAN: _Status seizure: Has seen neuro and back on regular medication without missing any dose at this point will help, patient was loaded with Keppra 2000 units yesterday no further more required continue Ativan as needed basis with back into Ativan half milligram at nighttime only. _Encephalopathy: Finding consistent with abnormality on EEG and brain CAT scan, most likely from the severity of his seizure along with medication side effect. _Aspiration pneumonia: With the multi seizure he has recurrent presentation patient be started on 1 dose of Zosyn for today switch patient to oral doxycycline we will back to the psych unit. _Homicidal and suicidal ideation: Patient was seen by psych and he will be transferred back to psych as soon as stable medically. _Depression: Has been on Vraylar along with Ativan and Zoloft. Severe GERD: Remain on Protonix 40 mg a day. _Chronic lower back pain: Has been on ibuprofen and Flexeril. Severe insomnia: Remain on trazodone 50 mg at bedtime. _History of migraine: He is Motrin 800mg As need for it. _Severe anxiety and panic attacks: Still on fluoxetine along with lorazepam. _GI prophylaxis: Continue pantoprazole _CODE STATUS: Full code. Discussion: No further seizure activity at this point, patient understands medication between Lamictal Tegretol and phenobarbital) use lorazepam on regular basis. Objective - Vital Signs Vital signs: Vital Signs Temp 98.4 F 03/23/24 01:16 Pulse 92 03/23/24 01:16 Resp 16 03/23/24 01:16 BP 107/67 03/23/24 01:16 Pulse Ox 97 03/23/24 01:16 FiO2 Intake & Output 03/22/24 03/22/24 03/23/24 06:59 18:59 06:59 Weight 79.6 kg Other: # Voids 1 0 - Labs CBC & Chem 7: 03/22/24 20:54 03/22/24 20:54 Labs: Abnormal Lab Results - Last 24 Hours (Table) 03/22/24 03/22/24 Range/Units 20:54 20:54 Lymphocytes # 0.9 L (1.0-4.8) k/uL Chloride 111 H (98-107) mmol/L Carbon Dioxide 20 L (22-30) mmol/L Glucose 130 H (74-99) mg/dL
[2024-03-24 02:02] VITALS: RESP 16
--- NOTE | 2024-03-24 08:00 | P.DS ---
Providers Date of admission: 03/22/24 12:27 Attending physician: Luciano Carson Consults: 03/22/24 13:34 Consult Physician Urgent Consulting Provider: Moise Norton Consult Reason/Comments: seizure Do you want consulting provider notified?: Yes 03/23/24 08:20 Consult Physician Urgent Consulting Provider: Blane Paul Consult Reason/Comments: possible return to psych Do you want consulting provider notified?: Yes Primary care physician: Luciano Carson [facility] Course: HISTORY OF PRESENT ILLNESS: 33-year-old one of our office patient with past medical history of depression, hypothyroidism, GERD, epilepsy, obstructive sleep apnea, with history of speech impediment, history of acne who has been seen in our office for the last few years with Dr. Samson has been in and out the psych unit last few years for suicidal ideation and depression. He presented to the emergency department close the midnight last night by ambulance for evaluation patient petition by police department for psychiatric evaluation he had racing thoughts along with auditory hallucination and homicidal ideation he told his he does not feel safe he wants to be checked in the hospital. Was seen and evaluated by the emergency department no blood work was done with the only exception of COVID test which was negative. Patient apparently was admitted to the psych unit at [facility] is antiseizure medication most of his medication from the night before because he needed to the ER almost the midnight did not take his evening dose. He was seen in the psych unit this morning and was acting well I seen him and examined him was very pleasant calling about not feeling safe for himself and his at home reason why he called for wellness check to be seen at the emergency department for admission. He was concerned about missing his medication from last night was told his medication will carry on from this morning. The A Team was called to the psych unit for seizure patient was seen and observed having tonic-clonic seizure at the psych unit apparently decided transferred to medical floor with no order at the time. I received a call that patient is having the second seizure while he is up on the first floor. Was giving at this time lorazepam 1 mg and giving an order to repeat it again up to 4 times a day if needed and his home meds were restarted again the patient developed to have intractable nausea throughout many times could not tolerate any oral meds. Was seen in the afternoon and evaluated decided to load him with Keppra neuro were consulted but did not see patient so far patient supposed to have another EEG at this time. In the meanwhile the rest of his medication including his Lamictal 200 mg twice a day, Tegretol 200 mg twice a day and 400 mg at bedtime along with phenobarbital 129.6 mg at bedtime with the lorazepam 0.5 mg at nightly overall resume. Not clear how much medication he was able to keep this evening because of the nausea and vomiting but loading him with Keppra. He is seeing neurology by tomorrow and that he is run his EEG and decide on further management. CT of the brain was ordered and done which shows scattered prominent calvarial artifact causing some limitation in assessment with no acute intracranial abnormality. Chest x-ray also was ordered showed new hazy appearance in the left middle and lower lung compatible with history of aspiration. EEG was performed before the end of the day and showed an abnormal EEG due to presence of epileptiform activity with generalized sharp and slow waves maximal involving the frontal and parietal lobe sometimes occurring repeatedly at 3 Hz/s. And background showing some moderate encephalopathy. 03/23/2024: Patient had no further seizure activity was loaded with Keppra yesterday is back on his home meds also been treated for aspiration pneumonia with Zosyn for now initially moved to the psych unit patient be switched to Augmentin for the same purpose. Neurology has seen patient in consultation for the long-acting seizure they believed the outbreak happened because of missing medication mostly, EEG was performed which was abnormal due to presence of epi leptiform resume his seizure medication recheck Lamictal and Tegretol level. Also continue phenobarbital. Also psych seeing patient today to believe if patient has no seizure activity in 24 hours can be transferred back to psych living around Mr. Yrn roberts. 03/24/2024: Patient is very stable no further seizures for the last 24 hours, with seen neurology, his EEG and CAT scan and THEY are up-to-date doing well. Medication are done on fine patient is able to tolerate his diet. Patient is very stable to be transferred back to the psych unit today. REVIEW OF SYSTEMS: CONSTITUTIONAL: Well-developed no acute respiratory distress. Still confused status post seizure semisleep. EYES: No icterus sclerae, no conjunctivitis. EARS, NOSE, MOUTH, THROAT, and FACE: No sore throat, lymphadenopathy, carotid bruits or deformity. RESPIRATORY: No SOB cough or wheezes. CARDIOVASCULAR: No CP, Palpitation, PND, Orthopnea, or angina. GASTROINTESTINAL: No Abd pain, Nausea or vomiting, no Diarrhea or constipation, No GI Bleed, no distention or masses. GENITOURINARY: Negative for Hematuria or UTI, no kidney stones. INTEGUMENT/BREAST: Negative for any muscular injury with mild osteoarthritis.. HEMATOLOGIC/LYMPHATIC: Negative for bleed or purpura. MUSCULOSKELTAL: Negative for Myalgia or arthralgia. NEURLOGICAL: No LOC, Sz or syncope, blurred vision dizziness or abnormality.. BEHAVIORAL/PSYCH: Negative. ENDOCRINE: Negative. PHYSICAL EXAMINATION: General Appearance: Alert, cooperative, no distress, appears stated age. Neck HEENT: Supple, no lymphadenopathy, no thyroid enlargement, no carotid bruits. Lungs: Decreased breath sound bilaterally specially left side positive for rhonchi with mild crackles. Chest Wall: Chest wall normal expansion with deep inspiration no tenderness and no deformity was found on exam, no costochondral pain or discomfort. Heart: Regular rate and rhythm, S1, S2 normal, no murmur, rub or gallop. Back: Symmetric, no curvature, ROM normal, no CVA tenderness. Abdomen: Soft, non-tender, bowel sounds active all four quadrants, no masses, no organomegaly. Extremities: Extremities normal, atraumatic, no cyanosis or edema. Pulses: 2+ and symmetric. Skin: Skin color, texture, tugor normal, no rashes or lesions. Neurologic: Alert not oriented and in deep sleep still withdrawing all his 4 extremity with no weakness not being able to do any gait exam at this point. ASSESSMENT AND PLAN: _Status seizure: Has seen neuro and back on regular medication without missing any dose at this point will help, patient was loaded with Keppra 2000 units yesterday no further more required continue Ativan as needed basis with back into Ativan half milligram at nighttime only. _Encephalopathy: Finding consistent with abnormality on EEG and brain CAT scan, most likely from the severity of his seizure along with medication side effect. _Aspiration pneumonia: With the multi seizure he has recurrent presentation patient be started on 1 dose of Zosyn for today switch patient to oral doxycycline we will back to the psych unit. _Homicidal and suicidal ideation: Patient was seen by psych and he will be transferred back to psych as soon as stable medically. _Depression: Has been on Vraylar along with Ativan and Zoloft. Severe GERD: Remain on Protonix 40 mg a day. _Chronic lower back pain: Has been on ibuprofen and Flexeril. Severe insomnia: Remain on trazodone 50 mg at bedtime. _History of migraine: He is Motrin 800mg As need for it. _Severe anxiety and panic attacks: Still on fluoxetine along with lorazepam. _GI prophylaxis: Continue pantoprazole _CODE STATUS: Full code. Discussion: No further seizures for the last 24 hours we will transfer the patient to the psych unit today. Hospital course:Patient was admitted to the psych unit on for severe depression, hallucination and delusion with suicidal and homicidal ideation. Was seen at the emergency room 2-minute before midnight 03/21/2024 and apparently did not take his antiseizure medication at night. Patient antiseizure medication were dispensed in the morning of 03/18/2024 but because of the dose was missed from the night before patient ended up having seizures in the psych unit. The ED team was called and transferred patient to medical floor was accepted to our service on 03/18/2024. Patient was seen neurology, EEG and CT of the brain was done along with blood work. Patient was loaded with Keppra and after having total of 4 seizure was finally ceased by adding Ativan aggressive dose IV. Was evaluated by neurology and his EEG does show slight abnormality consistent with encephalopathy and epileptiform activity. I agreed to have him back on his 3 medication he is taking for seizure. Patient had no further seizure for over 24 hours was seen and assessed by our service and by neuro and psych and was accepted to be transferred to psych today. Time spent on discharging patient was over 30 minutes. Plan - Discharge Summary Discharge Rx Participant: Yes New Discharge Prescriptions: New Doxycycline Hyclate 100 mg PO AC-BID #14 capsule Continue carBAMazepine [TEGretol XR] 400 mg PO HS lamoTRIgine [LaMICtal] 200 mg PO BID #0 carBAMazepine [TEGretol] 200 mg PO BID traZODone HCL [Desyrel] 50 mg PO HS 30 Days #30 tab LORazepam [Ativan] 0.5 mg PO HS PRN PRN Reason: sleep/anxiety Ibuprofen [Motrin] 800 mg PO Q8H PRN PRN Reason: Pain Cariprazine HCl [Vraylar] 3 mg PO HS Ondansetron Odt [Zofran ODT] 4 mg PO Q8HR PRN #10 tab PRN Reason: Nausea Zonisamide [Zonegran] 400 mg PO HS PHENobarbitaL [Luminal] 129.6 mg PO HS Sertraline [Zoloft] 150 mg PO DAILY Cyclobenzaprine [Flexeril] 10 mg PO TID PRN PRN Reason: muscle spasms Discharge Medication List carBAMazepine [TEGretol XR] 400 mg PO HS 10/19/18 [History] lamoTRIgine [LaMICtal] 200 mg PO BID #0 06/28/20 [Rx] carBAMazepine [TEGretol] 200 mg PO BID 10/10/20 [History] PHENobarbitaL [Luminal] 129.6 mg PO HS 08/28/22 [History] Zonisamide [Zonegran] 400 mg PO HS 08/28/22 [History] traZODone HCL [Desyrel] 50 mg PO HS 30 Days #30 tab 01/07/24 [Rx] Cariprazine HCl [Vraylar] 3 mg PO HS 03/05/24 [History] Cyclobenzaprine [Flexeril] 10 mg PO TID PRN 03/05/24 [History] Ibuprofen [Motrin] 800 mg PO Q8H PRN 03/05/24 [History] LORazepam [Ativan] 0.5 mg PO HS PRN 03/05/24 [History] Ondansetron Odt [Zofran ODT] 4 mg PO Q8HR PRN #10 tab 03/05/24 [Rx] Sertraline [Zoloft] 150 mg PO DAILY 03/05/24 [History] Doxycycline Hyclate 100 mg PO AC-BID #14 capsule 03/24/24 [Rx] Follow up Appointment(s)/Referral(s): Ana Maria Samson MD [STAFF PHYSICIAN] - 1 Week Blane Paul MD [Medical Doctor] - 1 Week Patient Instructions/Handouts: Seizure/Epilepsy Discharge Instructions & Follow-Up Discharge Disposition: TRANSFER TO PSYCH HOSP/UNIT
--- NOTE | 2024-03-24 08:08 | P.PN ---
Subjective Progress Note Date: 03/23/24 Patient was seen for a follow-up. Patient wants to go home. Patient had last seizure 7 PM yesterday, none since then. He continues to be very sleepy. He did got up to go to the bathroom. He was slow. Objective - Vital Signs Vital signs: Vital Signs Temp 98.6 F 03/23/24 07:38 Pulse 77 03/23/24 07:38 Resp 16 03/23/24 07:38 BP 111/72 03/23/24 07:38 Pulse Ox 96 03/23/24 07:38 FiO2 Intake & Output 03/22/24 03/23/24 03/23/24 18:59 06:59 18:59 Weight 79.6 kg Other: # Voids 1 0 - Exam Patient is groggy, but does wake up. He is oriented 4. He knows it is February 2024 and that he is in [facility] in [facility] and name of the current president Mr. Edwards. Speech is slightly slurred because of grogginess. Rest of the examination is nonfocal. Sitter is present. - Labs CBC & Chem 7: 03/22/24 20:54 03/22/24 20:54 Labs: Abnormal Lab Results - Last 24 Hours (Table) 03/22/24 03/22/24 03/23/24 Range/Units 20:54 20:54 11:00 Lymphocytes # 0.9 L (1.0-4.8) k/uL Chloride 111 H (98-107) mmol/L Carbon Dioxide 20 L (22-30) mmol/L Glucose 130 H (74-99) mg/dL Ur Barbiturates Screen Detected H (NotDetected) U Benzodiazepines Scrn Detected H (NotDetected) Assessment and Plan Assessment: * Longstanding history of seizure disorder, had a breakthrough seizure, likely due to missing his night dose of seizure medication, on the night of admission. * Medically intractable epilepsy. * Psychosis Plan: * EEG was performed, which was abnormal due to presence of epileptiform activity with generalized sharp and slow wave, maximal involving frontal parietal region, sometimes occurring repetitively at 3 Hz for a second. Occasional runs of left temporal sharp waves were seen. This implies tendency for focal and generalized onset seizures. Background slowing and disorganization, suggestive of moderate encephalopathy. No electrographic seizure was recorded. * Patient's seizure likely occurred because of missing night dose of medication particularly phenobarbital. Patient will be given phenobarbital 129.6 mg stat. * Resume Lamictal 200 mg twice daily and Tegretol 200 mg twice daily and 400 mg at bedtime and zonisamide 400 mg at bedtime. * Phenobarbital level 19.9(15-40), Tegretol level 4.5 (4-12), Lamictal level pending. * Seizure precautions, fall risk precautions. * If remains seizure free for next 24 hours, then we will be clear for discharge. * Recommend patient follow up with his neurologist within 1 week after discharge.
[2024-03-24 12:22] VITALS: BP 110/75; PULSE 75; TEMP 98.1
== END 2024-03-24 14:59 | DRG 100 ==
LOC: 5NMEDONC 12:27
PROVIDERS: ADMIT Internal Medicine Geriatric Medicine; ATTEND Internal Medicine Geriatric Medicine
DX: G40.419 Other generalized epilepsy and epileptic syndromes, intractable, without status epilepticus (principal); J69.0 Pneumonitis due to inhalation of food and vomit; G93.40 Encephalopathy, unspecified; R45.851 Suicidal ideations; F23 Brief psychotic disorder; F41.0 Panic disorder [episodic paroxysmal anxiety]; F60.3 Borderline personality disorder; G47.00 Insomnia, unspecified; G89.29 Other chronic pain; K21.9 Gastro-esophageal reflux disease without esophagitis; R45.850 Homicidal ideations; F43.25 Adjustment disorder with mixed disturbance of emotions and conduct; E03.9 Hypothyroidism, unspecified; Z79.899 Other long term (current) drug therapy; F31.9 Bipolar disorder, unspecified; F90.9 Attention-deficit hyperactivity disorder, unspecified type; Z56.0 Unemployment, unspecified; G47.33 Obstructive sleep apnea (adult) (pediatric); R47.89 Other speech disturbances; M54.9 Dorsalgia, unspecified; G43.909 Migraine, unspecified, not intractable, without status migrainosus; Z91.51 Personal history of suicidal behavior; Z11.52 Encounter for screening for COVID-19
CPT/HCPCS: 70450; 71045; 80053; 80156; 80175; 80184; 80306; 83605; 84443; 85025; 87635; 95816

== ENCOUNTER 2024-03-24 12:20 | Inpatient (IN) | payer MEDICARE, MEDICAID ==
[2024-03-24] MEDS ORDERED: ACETAMINOPHEN TAB 325 MG TAB PO PRN (13:13)
[2024-03-24] MEDS ORDERED: IBUPROFEN 600 MG TAB PO PRN (13:13)
[2024-03-24] MEDS ORDERED: MAGNESIUM HYDROXIDE 2,400 MG/30 ML CUP PO PRN (13:13)
[2024-03-24] MEDS ORDERED: MAG HYDROX/AL HYDROX/SIMETH 355 ML BOTTLE PO PRN (13:13)
[2024-03-24] MEDS ORDERED: ONDANSETRON ODT 4 MG TAB PO PRN (13:15)
[2024-03-24] MEDS ORDERED: CYCLOBENZAPRINE 10 MG TAB PO PRN (13:15)
[2024-03-24] MEDS ORDERED: LORazepam 0.5 MG TAB PO PRN (13:15)
[2024-03-24] MEDS ORDERED: haloperidoL 5 MG TAB PO PRN (13:20)
[2024-03-24] MEDS ORDERED: HALOPERIDOL LACTATE 5 MG/ML 1 ML VIAL IM PRN (13:20)
[2024-03-24] MEDS ORDERED: LORazepam 2 MG/ML INJ IM PRN (13:20)
[2024-03-24] MEDS: DOXYCYCLINE 100 MG CAP PO SCH (17:03)
[2024-03-24] MEDS: lamoTRIgine 100 MG TAB PO SCH (20:38)
[2024-03-24] MEDS: carBAMazepine 200 MG TAB PO SCH (20:38)
[2024-03-24] MEDS: traZODone HCL 50 MG TAB PO SCH (20:38)
[2024-03-24] MEDS: carBAMazepine 400 MG TAB.ER.12H PO SCH (20:38)
[2024-03-24] MEDS: ZONISAMIDE 100 MG CAP PO SCH (20:38)
[2024-03-24] MEDS: Cariprazine Hcl [Vraylar] 3 MG Capsule PO SCH (20:57)
[2024-03-25] MEDS: SERTRALINE 50 MG TAB PO SCH (07:18)
[2024-03-25] MEDS: NICOTINE 14MG/24HR PATCH TRANSDERM SCH (07:18)
--- NOTE | 2024-03-25 12:47 | P.HP ---
Psychiatric H&P - . H&P Date: 03/25/24 History & Physical: Allergies Allergy/AdvReac Type Severity Reaction Status Date / Time No Known Allergies Allergy Verified 03/24/24 16:29 Vital Signs Temp 98.6 F 03/25/24 06:31 Pulse 55 L 03/25/24 06:31 Resp 16 03/25/24 06:31 BP 99/67 03/25/24 06:31 Pulse Ox 98 03/25/24 06:31 FiO2 Intake & Output 03/24/24 03/25/24 03/25/24 18:59 06:59 18:59 Weight 78.075 kg 03/25/24 08:48 IDENTIFYING DATA: Patient is a Patient is a 33-year-old male with significant history of seizure disorder, depressive disorder, and borderline personality disorder who presents for hospital with a chief complaint of homicidal ideation towards his mother. . Lives with and son. Has an 8 year old son. Unemployed, receives social security HPI: Patient initially presented to the hospital on 03/22. As per EPS note, "Stephan stated he was homicidal. He stated he had plans to kill the [facility] [employer]". Upon assessment patient sleeping in bed. Patient states he is here d/t "homicidal towards my mom" When questioned what specifically happened yesterday, patient states "A lot of things- blown up together" patient states that last night he walked to the corner and called the police because he didnt want to "traumatize my son". patient continues to be vague regarding any specific issues, repeatedly stating "Just everything, all of it" Patient states " If she goes all of it will be done, no reason for my son to be traumatized." He goes on to say that his son refers to her as "the witch". patient states "ending my moms life is the only choice." Patient was then transferred to medical floor due to a seizure. As per consult note done by data analyst report writer, " Patient presented to the hospital initially on 03/22 and according to ER report patient was making homicidal threats towards his mother. Patient was brought in by police for evaluation. Patient was positive for barbiturates and benzodiazepines. Patient has a significant history of borderline personality disorder major depression and epilepsy. Patient was admitted to the mental health unit for only a few hours and had a tonic-clonic seizure on the floor, injuring his head on the fall. Patient was then evaluated by the ED team, transferred to medical right away. Patient was seen today for psychiatric follow-up. Patient was laying in bed, appeared to be fairly lethargic today, he has poor hygiene and grooming. He states that "stuff was building up" and claims that he was having thoughts of harming "the [employer] of [facility]". He states that she does not know how to "cut ties" and states that she was being invasive with him. She claims that she was sending them cards and would not stay away. He states that he was feeling angry towards her. States that he was having thoughts to harm her however did not have a specific plan. He does not have any weapons as well. He claims that he called the police instead to come to the hospital. He claims that he is not having suicidal thoughts at this time, does state that "if she stays away then I will not" referring to homicidal thoughts towards his mother. He claims that his sleep has been fair, appetite has been fair. At this time patient denies any auditory or visual hallucinations. Patient denies using recreational drugs. Patient appears heavily sedated " Upon todays interview, patient states that he is feeling better now. He was transferred back to the MHU last night from the medical floor. He states he is no longer having thoughts of wanting to hurt his mother, or anyone else, including himself. He claims to not have slept well last night. Patient is focused on discharge, wanting to get out of the hospital prior to his birthday, Friday. He states that his mother "doesn't know how to cut ties". Survey Cad Technician explained safe discharge to patient, and that it would be unlikely that he will get discharged prior to the weekend. Patient denies any suicidal or homicidal ideations intent or plan. At this time, patient is denying auditory and visual hallucinations. PAST PSYCHIATRIC HISTORY: Patient has previous diagnosis of depressive disorder and borderline personality disorder. He is currently prescribed He was last hospitalized on this psychiatric unit in December 2023. He has multiple admissions for psychiatric care. He currently is open with professional counseling [facility], and sees Fidelina weekly to biweekly. He has attempted suicide in the past by means of overdosing. PMH:As per ER note ALLERGIES: as per EMR CHEMICAL DEPENDENCY HISTORY: as per HPI FAMILY PSYCHIATRIC/SUBSTANCE USE HISTORY: denies SOCIAL HISTORY: Patient was born and raised in [place], [place]. He is currently and has a 8-year-old son. He has an associates degree. He is currently on disability. MENTAL STATUS EXAM: General Appearance: Patient appears to be older than stated age, is alert, directable, and attempts to cooperate. Patient appears to have poor hygiene and grooming.Wearing casual clothing. Disheveled appearance. Behavior: Patient is seated without any agitated behavior. Sedated Speech: Patient's speech is fluent and nonpressured. Mildly dysarthric secondary to lack of dentition. Mood/Affect: Patient reports their mood is depressed, affect is congruent and constricted. Suicidality/Homicidality: Patient denies having any homicidal ideation intent or plan. Denies suicidal ideations no intent or plan Perceptions: Patient denies any visual hallucinations and denies any auditory hallucinations Though content/process: There is no evidence of any delusional thought content and thought process is linear and goal-directed. [place]. Memory and concentration: AOX3, grossly intact for the purposes of this session. Can not spell "WORLD" backwards Judgment and insight: chronically poor STRENGTHS/WEAKNESSES: Strength is that the patient has services. Weakness is that the patient has very poor ego integrity. 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 Patient has signed adult voluntary form and medication consent and is placed in patient's chart. -Medications : Will continue patients regimen of Zoloft 200mg daily for mood/anxiety, Lamictal 200mg bid for mood stabilization/seizures increase trazodone to 100mg po qhs for sleep -continue with Phenobarbital and trileptal are home meds for seizures. -Ativan and Haldol PRN for agitation/aggression -Patient was informed of the risks, benefits and side effects of the medication and patient verbally consented to taking the medications. -Internal Medicine consult to perform medical evaluation and physical. -NRT - nicotine patch -SW on board for discharge planning. Encourage patient to participate in groups to work on coping skills. 03/25/24 12:23
[2024-03-25] MEDS: traZODone HCL 100 MG TAB PO SCH (20:31)
--- NOTE | 2024-03-25 20:34 | P.CONS ---
History of Present Illness - Reason for Consult Consult date: 03/25/24 Medical management Requesting physician: Blane Paul - Chief Complaint Recent seizure, suicidal and homicidal ideation and severe depression - History of Present Illness HISTORY OF PRESENT ILLNESS: 33-year-old one of our office patient with past medical history of depression, hypothyroidism, GERD, epilepsy, obstructive sleep apnea, with history of speech impediment, history of acne who has been seen in our office for the last few years with Dr. Samson has been in and out the psych unit last few years for suicidal ideation and depression. He was originally admitted to the psych unit as a petition by police department for psych evaluation apparently for auditory hallucination and homicidal ideation told his he does not feel safe and he wants to be checked in the hospital. At the time was seen in the emergency department was close to 11:56 PM did not get processed and admitted till after midnight and he apparently missed his last dose of antiseizure medication for the day. After arriving to the psych unit and in Following a few hours for his admission he developed to have acute seizure activity was transferred to medical floor at the time and had 4 more seizure afterward was finally stopped with the management of lorazepam IV along with loading him with Keppra. He was seen neurology EEG and CAT scan of the brain along with labs were done finding consistent with epileptic form activity with generalized sharp and slow waves maximal involvement in the frontal and parietal lobe. CAT scan of the brain did not show any major abnormality. Laboratory evaluation chest x-ray failed to show any infection or electrolyte imbalance. Patient was treated and back and he is to be antiseizure medication with Lamictal 200 mg twice a day, Tegretol 200 mg twice a day and 400 mg at bedtime along with phenobarbital 129.6 mg at bedtime and being on lorazepam 0.5 mg at bedtime his seizure was stopped completely did not require to stay on Keppra anymore. After stabilizing him for over 24 hours and had no further seizure patient was transferred to the psych unit for further management of his course with depression and suicidal ideation. Medically he is very stable he is not talkative much since his seizure but able to answer question appropriately. No medical complaint at this point vitals and examination looks very reasonably normal. REVIEW OF SYSTEMS: CONSTITUTIONAL: Well-developed no acute respiratory distress. EYES: No icterus sclerae, no conjunctivitis. EARS, NOSE, MOUTH, THROAT, and FACE: No sore throat, lymphadenopathy, carotid bruits or deformity. RESPIRATORY: No SOB cough or wheezes. CARDIOVASCULAR: No CP, Palpitation, PND, Orthopnea, or angina. GASTROINTESTINAL: No Abd pain, Nausea or vomiting, no Diarrhea or constipation, No GI Bleed, no distention or masses. GENITOURINARY: Negative for Hematuria or UTI, no kidney stones. INTEGUMENT/BREAST: Negative for any muscular injury with mild osteoarthritis.. HEMATOLOGIC/LYMPHATIC: Negative for bleed or purpura. MUSCULOSKELTAL: Negative for Myalgia or arthralgia. NEURLOGICAL: No LOC, Sz or syncope, blurred vision dizziness or abnormality.. BEHAVIORAL/PSYCH: Negative. ENDOCRINE: Negative. PHYSICAL EXAMINATION: General Appearance: Alert, cooperative, no distress, appears stated age. Neck HEENT: Supple, no lymphadenopathy, no thyroid enlargement, no carotid bruits. Lungs: Decreased breath sound bilaterally specially left side positive for rhonchi with mild crackles. Chest Wall: Chest wall normal expansion with deep inspiration no tenderness and no deformity was found on exam, no costochondral pain or discomfort. Heart: Regular rate and rhythm, S1, S2 normal, no murmur, rub or gallop. Back: Symmetric, no curvature, ROM normal, no CVA tenderness. Abdomen: Soft, non-tender, bowel sounds active all four quadrants, no masses, no organomegaly. Extremities: Extremities normal, atraumatic, no cyanosis or edema. Pulses: 2+ and symmetric. Skin: Skin color, texture, tugor normal, no rashes or lesions. Neurologic: Alert oriented moving all 4 extremities with no focal deficit. ASSESSMENT AND PLAN: _seizure: With episode 2 days ago was treated and had larger dose of Ativan at bedtime along with Keppra, he is back on his Lamictal, phenobarbital and Tegretol and seems to do well with it so far. _Aspiration pneumonia: Happen because of multi seizure he has patient was switched to oral doxycycline and has been doing well with it so far. __Encephalopathy: Finding consistent with abnormality on EEG and brain CAT scan, most likely from the severity of his seizure along with medication side effect. _Depression: Has been on Vraylar along with Ativan and Zoloft. Severe GERD: Remain on Protonix 40 mg a day. _Chronic lower back pain: Has been on ibuprofen and Flexeril. _Severe insomnia: Remain on trazodone 50 mg at bedtime. _History of migraine: Stable being on current medication specially his Flexeril and ibuprofen. _Severe anxiety and panic attacks: Still on lorazepam and short acting along with fluoxetine. _GI prophylaxis: Continue pantoprazole _CODE STATUS: Full code. Dr. Paul thank you much for the consult if I can be any further help to please let me know. Past Medical History Past Medical History: GERD/Reflux, Seizure Disorder, Skin Disorder, Thyroid Disorder Additional Past Medical History / Comment(s): has history of epilepsy, hx grand mal seizures since childhood, migraines History of Any Multi-Drug Resistant Organisms: None Reported Past Surgical History: Adenoidectomy, Appendectomy, Cholecystectomy, Tonsillectomy Additional Past Surgical History / Comment(s): oral surgery. I & D CYST ON BACK 08/19/22 Past Anesthesia/Blood Transfusion Reactions: Previous Problems w/ Anesthesia Additional Past Anesthesia/Blood Transfusion Reaction / Comm: SLOW TO WAKE FROM ANESTHESIA" Past Psychological History: ADD/ADHD, Anxiety, Bipolar, Depression Additional Psychological History / Comment(s): per pt-he was in special education classes thru out school(has some intellectual disabilty), speech impediment. able to read and write fine. hx cluster b disorder Smoking Status: Never smoker Past Alcohol Use History: None Reported Past Drug Use History: None Reported Additional Drug Use History / Comment(s): Denies any illicit drugs or any marijuana use - Past Family History Mother Family Medical History: Cancer Additional Family Medical History / Comment(s): breast cancer Medications and Allergies Home Medications Medication Instructions Recorded Confirmed Type carBAMazepine [TEGretol XR] 400 mg PO HS 10/19/18 03/24/24 History lamoTRIgine [LaMICtal] 200 mg PO BID #0 06/28/20 03/24/24 Rx carBAMazepine [TEGretol] 200 mg PO BID 10/10/20 03/24/24 History PHENobarbitaL [Luminal] 129.6 mg PO HS 08/28/22 03/24/24 History Zonisamide [Zonegran] 400 mg PO HS 08/28/22 03/24/24 History traZODone HCL [Desyrel] 50 mg PO HS 30 Days #30 tab 01/07/24 03/24/24 Rx Cariprazine HCl [Vraylar] 3 mg PO HS 03/05/24 03/24/24 History Cyclobenzaprine [Flexeril] 10 mg PO TID PRN 03/05/24 03/24/24 History Ibuprofen [Motrin] 800 mg PO Q8H PRN 03/05/24 03/24/24 History LORazepam [Ativan] 0.5 mg PO HS PRN 03/05/24 03/24/24 History Ondansetron Odt [Zofran ODT] 4 mg PO Q8HR PRN #10 tab 03/05/24 03/24/24 Rx Sertraline [Zoloft] 150 mg PO DAILY 03/05/24 03/24/24 History Doxycycline Hyclate 100 mg PO AC-BID #14 capsule 03/24/24 03/24/24 Rx Allergies Allergy/AdvReac Type Severity Reaction Status Date / Time No Known Allergies Allergy Verified 03/24/24 16:29 Physical Exam Vitals: Vital Signs Temp Pulse Resp BP Pulse Ox 03/24/24 16:09 98.2 F 84 17 105/63 97 Intake and Output 03/24/24 03/24/24 03/25/24 14:59 22:59 06:59 Other: Weight 79.6 kg 78.075 kg
[2024-03-26] MEDS: SERTRALINE 100 MG TAB PO SCH (07:48)
--- NOTE | 2024-03-26 11:46 | P.PN ---
Progress Note - Text Progress Note Date: 03/26/24 Interval History: Patient was seen laying in bed today. He was agreeable to speak with curriculum writer at the bedside. Patient denied any overnight complaints, he appears to be fairly sedated today. He claims that he was able to sleep throughout the night, he did have breakfast this morning. Claims that the medications have been helping and wants to remain on the same dose. He was less focused today on discharge. Has not been going to many groups. Appetite is mildly improving. At this time pat ient denies any suicidal or homical ideations, intent or plan. Patient denies any auditory, visual hallucinations and denies any paranoia or delusions. Patient denies any side effects from the medications and has been compliant with meds. MENTAL STATUS EXAM: General Appearance: Patient appears to be older than stated age, is alert, directable, and attempts to cooperate. Patient appears to have poor hygiene and grooming.Wearing casual clothing. Disheveled appearance. Behavior: Patient is seated without any agitated behavior. Sedated Speech: Patient's speech is fluent and nonpressured. Mildly dysarthric secondary to lack of dentition. Mood/Affect: Patient reports their mood is depressed, affect is congruent and constricted. Suicidality/Homicidality: Patient denies having any homicidal ideation intent or plan. Denies suicidal ideations no intent or plan Perceptions: Patient denies any visual hallucinations and denies any auditory hallucinations Though content/process: There is no evidence of any delusional thought content and thought process is linear and goal-directed. [place]. Memory and concentration: AOX3, grossly intact for the purposes of this session. 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 Patient has signed adult voluntary form and medication consent and is placed in patient's chart. -Medications : Zoloft 200mg daily for mood/anxiety, Lamictal 200mg bid for mood stabilization/seizures, trazodone 100mg po qhs for sleep -continue with Phenobarbital and trileptal are home meds for seizures. -Ativan and Haldol PRN for agitation/aggression -NRT - nicotine patch -SW on board for discharge planning. Encourage patient to participate in groups to work on coping skills. Likely discharge early next week if patient is improving psychiatrically.
[2024-03-26] MEDS: LORazepam 1 MG TAB PO PRN (17:24)
--- NOTE | 2024-03-27 18:40 | P.PN ---
Progress Note - Text Progress Note Date: 03/27/24 Interval History: Patient was seen wandering the halls and was agreeable with speaking with this freelance writer in the interview room. There is poverty of thought but he expresses that his mood is adequate. He denies any acute concerns. He is wondering about how long his doxycycline will be continued and is told that per chart patient will be continued on this until March 29. He reports mild dizziness but says that he has not been drinking water and was encouraged to improve oral intake. He states that he has been feeling better with current medication regimen. He endorses good sleep and appetite. He reports fair energy. He is focused on discharge and states that he is looking forward to seeing his 8-year-old son once he is discharged At this time patient denies any suicidal or homical ideation, intent or plan. Patient denies any auditory, visual hallucinations and denies any paranoia or delusions. Patient denies any side effects from the medications and has been compliant with meds. MENTAL STATUS EXAM: General Appearance: Patient appears to be older than stated age, is alert, di rectable, and attempts to cooperate. Patient appears to have fair hygiene and grooming.Wearing casual clothing. Behavior: Patient is seated without any agitated behavior. Slowed Speech: Patient's speech is fluent and nonpressured. Mildly dysarthric secondary to lack of dentition. Mood/Affect: Patient reports their mood is euthymic, affect is flat. Suicidality/Homicidality: Patient denies having any homicidal ideation intent or plan. Denies suicidal ideations no intent or plan Perceptions: Patient denies any visual hallucinations and denies any auditory hallucinations Though content/process: There is no evidence of any delusional thought content and thought process is linear and goal-directed. [place]. Memory and concentration: AOX3, grossly intact for the purposes of this session. 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 Patient has signed adult voluntary form and medication consent and is placed in patient's chart. -Medications : Zoloft 200mg daily for mood/anxiety, Lamictal 200mg bid for mood stabilization/seizures, trazodone 100mg po qhs for sleep -continue with Phenobarbital and trileptal are home meds for seizures. -Ativan and Haldol PRN for agitation/aggression -NRT - nicotine patch -SW on board for discharge planning. Encourage patient to participate in groups to work on coping skills. Likely discharge early next week if patient is improving psychiatrically.
[2024-03-28 06:56] VITALS: RESP 16
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
--- NOTE | 2024-03-29 10:32 | P.PN ---
Progress Note - Text Progress Note Date: 03/29/24 Interval History: Patient was seen in group today and was agreeable with speaking with this rfp writer in the interview room. Patient states that he is doing great today. He does appear less lethargic today. Silk Spreader spoke with patient about interpersonal issues with his mother. Patient states that he has not spoken with his mother since 2019. Patient verbalized understanding that he needs to work these problems out. Patient is not a violent person, and has never threatened homicidal ideation towards anyone. He states he does not know why he said that. he had fairly superficial insight into his thoughts and did not reveal why he made homicidal statemenst. He stated he wants to go home, and his is ready to have him home. He reports tolerating the medications well and denies any concerns. He denies any other issues. He endorses good sleep and appetite. He endorses fair energy during the daytime. At this time patient denies any suicidal or homical ideation, intent or plan. Patient denies any auditory, visual hallucinations and denies any paranoia or delusions. Patient denies any side effects from the medications and has been compliant with meds. MENTAL STATUS EXAM: General Appearance: Patient appears to be older than stated age, is alert, directable, and attempts to cooperate. Patient appears to have fair hygiene and grooming.Wearing casual clothing. Behavior: Patient is seated without any agitated behavior. Slowed, mildly improving Speech: Patient's speech is fluent and nonpressured. Mildly dysarthric secondary to lack of dentition. mildly improving Mood/Affect: Patient reports their mood is great, affect is flat. mildly improving Suicidality/Homicidality: Patient denies having any homicidal ideation intent or plan. Denies suicidal ideations no intent or plan Perceptions: Patient denies any visual hallucinations and denies any auditory hallucinations Though content/process: There is no evidence of any delusional thought content and thought process is linear and goal-directed. Memory and concentration: AOX3, grossly intact for the purposes of this session. 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 Patient has signed adult voluntary form and medication consent and is placed in patient's chart. -Medications : Zoloft 200mg daily for mood/anxiety, Lamictal 200mg bid for mood stabilization/seizures, trazodone 100mg po qhs for sleep -continue with Phenobarbital and trileptal are home meds for seizures. -Ativan and Haldol PRN for agitation/aggression -NRT - nicotine patch -SW on board for discharge planning. No need to duty to warn since patient vehemently denying HI. Encourage patient to participate in groups to work on coping skills. Likely discharge tomorrow, if patient continues to improve psychiatrically.
[2024-03-30 07:08] VITALS: BP 95/60; PULSE 56; TEMP 97.7
--- NOTE | 2024-03-30 09:39 | P.DS ---
Providers Date of admission: 03/24/24 15:56 Expected date of discharge: 03/30/24 Attending physician: Blane Paul MD Consults: 03/24/24 13:13 Consult Physician Routine Consulting Provider: Luciano Carson Consult Reason/Comments: H&P Do you want consulting provider notified?: Yes Primary care physician: Luciano Carson - Discharge Diagnosis(es) (1) Major depressive disorder without psychotic features Current Visit: No Status: Acute Priority: High (2) Adjustment disorder with mixed disturbance of emotions and conduct Current Visit: No Status: Acute Priority: High (3) Borderline personality disorder Current Visit: No Status: Acute Priority: High (4) Seizure disorder Current Visit: No Status: Acute Priority: Medium Hospital Course: Admission HPI: Admission note was completed by process description writer "Patient initially presented to the hospital on 03/22. As per EPS note, "Stephan stated he was homicidal. He stated he had plans to kill the [facility] [employer]". Upon assessment patient sleeping in b ed. Patient states he is here d/t "homicidal towards my mom" When questioned what specifically happened yesterday, patient states "A lot of things- blown up together" patient states that last night he walked to the corner and called the police because he didnt want to "traumatize my son". patient continues to be vague regarding any specific issues, repeatedly stating "Just everything, all of it" Patient states " If she goes all of it will be done, no reason for my son to be traumatized." He goes on to say that his son refers to her as "the witch". patient states "ending my moms life is the only choice." Patient was then transferred to medical floor due to a seizure. As per consult note done by process description writer, " Patient presented to the hospital initially on 03/22 and according to ER report patient was making homicidal threats towards his mother. Patient was brought in by police for evaluation. Patient was positive for barbiturates and benzodiazepines. Patient has a significant history of borderline personality disorder major depression and epilepsy. Patient was admitted to the mental health unit for only a few hours and had a tonic-clonic seizure on the floor, injuring his head on the fall. Patient was then evaluated by the ED team, transferred to medical right away. Patient was seen today for psychiatric follow-up. Patient was laying in bed, appeared to be fairly lethargic today, he has poor hygiene and grooming. He states that "stuff was building up" and claims that he was having thoughts of harming "the [employer] [facility]". He states that she does not know how to "cut ties" and states that she was being invasive with him. She claims that she was sending them cards and would not stay away. He states that he was feeling angry towards her. States that he was having thoughts to harm her however did not have a specific plan. He does not have any weapons as well. He claims that he called the police instead to come to the hospital. He claims that he is not having suicidal thoughts at this time, does state that "if she stays away then I will not" referring to homicidal thoughts towards his mother. He claims that his sleep has been fair, appetite has been fair. At this time patient denies any auditory or visual hallucinations. Patient denies using recreational drugs. Patient appears heavily sedated " Upon todays interview, patient states that he is feeling better now. He was transferred back to the MHU last night from the medical floor. He states he is no longer having thoughts of wanting to hurt his mother, or anyone else, including himself. He claims to not have slept well last night. Patient is focused on discharge, wanting to get out of the hospital prior to his birthday, Friday. He states that his mother "doesn't know how to cut ties". Group Exercise Instructor explain ed safe discharge to patient, and that it would be unlikely that he will get discharged prior to the weekend. Patient denies any suicidal or homicidal ideations intent or plan. At this time, patient is denying auditory and visual hallucinations." Hospital course: Upon admission to the unit patient was directable and agreeable to commence treatment and signed adult voluntary form. Patient was admitted as a transfer from the medical floors after having a tonic-clonic seizure within the first few hours of being on the mental health unit. Patient received treatment and restarted back on epilepsy medications. He got along well with other patients on the unit and followed unit protocol. Patient was compliant with the medications and denied any side effects throughout hospital course. Patient was started on Zoloft 200 mg daily for mood/anxiety, Lamictal 200 mg twice daily for mood stabilization/seizures, trazodone 100 mg nightly for sleep/mood, he was restarted back on antiepilepsy medications. Patient spoke of his stressors and engaged in therapy both group and individual. Patient was also seen by medical team for history and physical exam. Throughout the course of the hospitali zation patient gradually improved with regards to mood, anxiety, homicidal/suicidal thoughts, sleep and returned back to their baseline level of functioning. On the day of discharge patient denied any suicidal or homicidal ideations intent or plan denied any auditory or visual hallucinations. Patient endorsed wanting to live for his health and family. The patient denied any access to guns or weapons. Patient denied any paranoia and did not endorse any delusions. Patient does not have a significant history of substance abuse and was counseled on abstaining from all substances including alcohol and marijuana. Patient was also counseled on the medications and need for regular compliance and was encouraged to follow-up with their outpatient appointment for mental health and also for primary care. facility worker Jc called patient's mother who the homicidal thoughts and statements were directed towards, she was made aware of these threats, please see his note for further details. facility worker to coordinate patient's discharge today back home to , he will be following up with [facility]. Mental status exam: General Appearance: Patient appears to be wearing glasses, stated age is alert, pleasant, and cooperative. Patient is in no acute distress and has improved hygiene and grooming Behavior: Patient is calmly seated without any agitated behavior. Speech: Patient's speech is fluent and nonpressured. Mood/Affect: Patient reports their mood is "good", affect is congruent and euthymic. Suicidality/Homicidality: Patient denies having any suicidal or homicidal ideation intent or plan. Perceptions: Patient denies any auditory or visual hallucinations. Though content/process: There is no evidence of any delusional thought content and thought process is linear and goal-directed. Memory and concentration: AOX3, grossly intact for the purposes of this session. Can spell "WORLD" backwards correctly. Judgment and insight: Chronically poor, however has improved with guarded prognosis Impression: adjustment disorder with disturbance in emotions and conduct Major depressive disorder Borderline personality disorder Seizure disorder Plan: -Continue with discharge today as patient has improved and stabilized psychiatrically and is not currently an imminent threat to himself and/or others. Patient will remain at chronically elevated risk for harm to self and/or others due to his impulsivity -Continue medications: Zoloft 200 mg daily for mood/anxiety, Lamictal 200 mg twice daily for mood stabilization/seizures, trazodone 100 mg nightly for sleep/mood. -Patient was counseled on the need for medication compliance and appropriate follow-up at mental health and also primary care for medical issues. Patient verbalized understanding and agreed. -Social work to arrange for and conduct family meeting to ensure safety upon discharge and answer any questions/concerns. Social work also to arrange for patients follow up appointments for psychiatric care along with follow up with primary care provider. -Patient counseled on abstaining from recreational drugs and marijuana and alcohol. Was informed/educated on the adverse effects on their physical and mental health. Patient verbally agreed and understood. -Patient was instructed to return to the hospital or seek immediate medical care if their psychiatric or medical symptoms do worsen or reoccur. Allergies Allergy/AdvReac Type Severity Reaction Status Date / Time No Known Allergies Allergy Verified 03/24/24 16:[address] Glu mg/dL 100 mg/dL 03/25/24 10:14 Hemoglobin A1c 5.1 % (<=6.0) 03/25/24 10:14 Carbamazepine 7.8 UG/ML (4.0-12.0) 03/25/24 10:14 Lamotrigine 4.3 ug/mL (2.0-15.0) 03/25/24 10:14 Phenobarbital 21.7 UG/ML (15.0-40.0) 03/25/24 10:14 Vital Signs Temp 97.7 F 03/30/24 06:37 Pulse 56 L 03/30/24 06:37 Resp 16 03/30/24 06:37 BP 95/60 03/30/24 06:37 Pulse Ox 98 03/30/24 06:37 FiO2 Patient Condition at Discharge: Stable Plan - Discharge Summary Discharge Rx Participant: No New Discharge Prescriptions: New traZODone HCL [Desyrel] 100 mg PO HS 30 Days #30 tab Sertraline [Zoloft] 200 mg PO DAILY 30 Days #60 tab Continue carBAMazepine [TEGretol XR] 400 mg PO HS lamoTRIgine [LaMICtal] 200 mg PO BID #0 carBAMazepine [TEGretol] 200 mg PO BID Zonisamide [Zonegran] 400 mg PO HS PHENobarbitaL [Luminal] 129.6 mg PO HS Cyclobenzaprine [Flexeril] 10 mg PO TID PRN PRN Reason: muscle spasms Discontinued traZODone HCL [Desyrel] 50 mg PO HS 30 Days #30 tab LORazepam [Ativan] 0.5 mg PO HS PRN PRN Reason: sleep/anxiety Ibuprofen [Motrin] 800 mg PO Q8H PRN PRN Reason: Pain Cariprazine HCl [Vraylar] 3 mg PO HS Ondansetron Odt [Zofran ODT] 4 mg PO Q8HR PRN #10 tab PRN Reason: Nausea Sertraline [Zoloft] 150 mg PO DAILY Doxycycline Hyclate 100 mg PO AC-BID #14 capsule Discharge Medication List carBAMazepine [TEGretol XR] 400 mg PO HS 10/19/18 [History] lamoTRIgine [LaMICtal] 200 mg PO BID #0 06/28/20 [Rx] carBAMazepine [TEGretol] 200 mg PO BID 10/10/20 [History] PHENobarbitaL [Luminal] 129.6 mg PO HS 08/28/22 [History] Zonisamide [Zonegran] 400 mg PO HS 08/28/22 [History] Cyclobenzaprine [Flexeril] 10 mg PO TID PRN 03/05/24 [History] Sertraline [Zoloft] 200 mg PO DAILY 30 Days #60 tab 03/30/24 [Rx] traZODone HCL [Desyrel] 100 mg PO HS 30 Days #30 tab 03/30/24 [Rx] Follow up Appointment(s)/Referral(s): [facility] [Outside] - 03/31/24 3:30 pm ([place]) Luciano Carson MD [Primary Care Provider] - 1 Week Activity/Diet/Wound Care/Special Instructions: Avoid the use of street drugs and alcohol. Take all medications as prescribed. When you are in need of refills on your medications, please contact your medical provider and/or outpatient psychiatrist/provider to have this done. Please go to your scheduled outpatient appointment for aftercare treatment. If symptoms return or become worse, call the crisis line at and/or go to the nearest emergency room for evaluation. National Suicide Hotline 988 Discharge Disposition: HOME SELF-CARE
== END 2024-03-30 13:10 | disposition home or self-care (01) | DRG 885 ==
LOC: 3MHU 15:56
PROVIDERS: ADMIT Psychiatry & Neurology Psychiatry; ATTEND Psychiatry & Neurology Psychiatry
DX: F31.30 Bipolar disorder, current episode depressed, mild or moderate severity, unspecified (principal); J69.0 Pneumonitis due to inhalation of food and vomit; G93.40 Encephalopathy, unspecified; G40.409 Other generalized epilepsy and epileptic syndromes, not intractable, without status epilepticus; E03.9 Hypothyroidism, unspecified; F60.3 Borderline personality disorder; F43.25 Adjustment disorder with mixed disturbance of emotions and conduct; F41.0 Panic disorder [episodic paroxysmal anxiety]; F90.9 Attention-deficit hyperactivity disorder, unspecified type; G47.00 Insomnia, unspecified; G43.909 Migraine, unspecified, not intractable, without status migrainosus; K21.9 Gastro-esophageal reflux disease without esophagitis; G47.33 Obstructive sleep apnea (adult) (pediatric); L98.9 Disorder of the skin and subcutaneous tissue, unspecified; R47.89 Other speech disturbances; G89.29 Other chronic pain; M54.50 Low back pain, unspecified; R45.850 Homicidal ideations; Z79.899 Other long term (current) drug therapy; Z91.51 Personal history of suicidal behavior; Z56.0 Unemployment, unspecified
CPT/HCPCS: 80156; 80175; 80184; 83036

== ENCOUNTER 2024-05-29 21:37 | Inpatient (IN) | payer MEDICARE, MEDICAID ==
--- NOTE | 2024-05-29 22:11 | ED ---
Psych HPI - General Chief Complaint: Psychiatric Symptoms Stated Complaint: mental health Time Seen by Provider: 05/29/24 21:58 Source: patient Mode of arrival: ambulatory - History of Present Illness Initial Comments: Patient is a 34-year-old man with history of previous mood disorder who presents complaining that he has been more depressed than usual and having persistent tho ughts of suicide for the past couple of days. The patient states that he is compliant with his medical regimen but that the medicines are just not helping. MD Complaint: suicidal ideation, feels depressed Onset/Timin -: days(s) Associated Psychiatric Symptoms: depression, suicidal ideation History of same: Yes Quality: getting worse Improves With: none Worsens With: none - Related Data Home Medications Medication Instructions Recorded Confirmed carBAMazepine [TEGretol XR] 400 mg PO HS 10/19/18 05/30/24 carBAMazepine [TEGretol] 200 mg PO BID 10/10/20 05/30/24 PHENobarbitaL [Luminal] 129.6 mg PO HS 08/28/22 05/30/24 Zonisamide [Zonegran] 400 mg PO HS 08/28/22 05/30/24 Cyclobenzaprine [Flexeril] 10 mg PO TID PRN 03/05/24 05/30/24 Cariprazine HCl [Vraylar] 3 mg PO HS 05/30/24 05/30/24 Previous Rx's Medication Instructions Recorded lamoTRIgine [LaMICtal] 200 mg PO BID #0 06/28/20 Sertraline [Zoloft] 200 mg PO DAILY 30 Days #60 tab 03/30/24 traZODone HCL [Desyrel] 100 mg PO HS 30 Days #30 tab 03/30/24 Allergies Allergy/AdvReac Type Severity Reaction Status Date / Time No Known Allergies Allergy Verified 05/29/24 21:42 Review of Systems ROS Statement: Those systems with pertinent positive or pertinent negative responses have been documented in the HPI. ROS Other: All systems not noted in ROS Statement are negative. Constitutional: Denies: fever Respiratory: Denies: cough, dyspnea Cardiovascular: Denies: chest pain, palpitations Gastrointestinal: Denies: abdominal pain, vomiting, diarrhea Genitourinary: Denies: dysuria, hematuria Musculoskeletal: Denies: back pain Skin: Denies: rash Neurological: Denies: headache, weakness Psychiatric: Reports: depression, suicidal thoughts. Denies: auditory hallucinations, visual hallucinations, homicidal thoughts Past Medical History Past Medical History: GERD/Reflux, Seizure Disorder, Skin Disorder, Thyroid Disorder Additional Past Medical History / Comment(s): has history of epilepsy, hx grand mal seizures since childhood, migraines History of Any Multi-Drug Resistant Organisms: None Reported Past Surgical History: Adenoidectomy, Appendectomy, Cholecystectomy, Tonsillectomy Additional Past Surgical History / Comment(s): oral surgery. I & D CYST ON BACK 08/19/22 Past Anesthesia/Blood Transfusion Reactions: Previous Problems w/ Anesthesia Additional Past Anesthesia/Blood Transfusion Reaction / Comment(s): SLOW TO WAKE FROM ANESTHESIA" Past Psychological History: ADD/ADHD, Anxiety, Bipolar, Depression Smoking Status: Never smoker Past Alcohol Use History: None Reported Past Drug Use History: None Reported - Past Family History Mother Family Medical History: Cancer Additional Family Medical History / Comment(s): breast cancer General Exam Limitations: no limitations General appearance: alert, in no apparent distress Head exam: Present: atraumatic, normocephalic Eye exam: Present: normal appearance. Absent: scleral icterus, conjunctival injection ENT exam: Present: normal oropharynx Neck exam: Present: normal inspection Respiratory exam: Present: normal lung sounds bilaterally. Absent: respiratory distress, wheezes, rales, rhonchi, stridor, accessory muscle use Cardiovascular Exam: Present: regular rate, normal rhythm, normal heart sounds. Absent: systolic murmur, diastolic murmur, rubs, gallop GI/Abdominal exam: Present: soft. Absent: distended, tenderness, guarding, rebound, rigid, mass Extremities exam: Present: normal inspection, normal capillary refill. Absent: pedal edema, calf tenderness Back exam: Present: normal inspection. Absent: CVA tenderness (R), CVA tenderness (L) Neurological exam: Present: alert Psychiatric exam: Present: depressed, suicidal ideation. Absent: agitated, manic, homicidal ideation Skin exam: Present: warm, dry, intact, normal color. Absent: rash Course Vital Signs 05/29/24 21:38 Temperature 98.2 F Pulse Rate 64 Respiratory 17 Rate Blood Pressure 131/85 O2 Sat by Pulse 100 Oximetry Medical Decision Making - Medical Decision Making Was pt. sent in by a medical professional or institution (, PA, SYSTEM SALES CONSULTANT, urgent care, hospital, or detention...) When possible be specific @ -[No] Did you speak to anyone other than the patient for history (EMS, parent, family, police, friend...)? What history was obtained from this source @ -[No] Did you review nursing and triage notes (agree or disagree)? Why? @ -[I reviewed and agree with nursing and triage notes] Were old charts reviewed (outside hosp., previous admission, EMS record, old EKG, old radiological studies, urgent care reports/EKG's, detention records)? Report findings @ -[No old charts were reviewed] Differential Diagnosis (chest pain, altered mental status, abdominal pain women, abdominal pain men, vaginal bleeding, weakness, fever, dyspnea, syncope, headache, dizziness, GI bleed, back pain, seizure, CVA, palpatations, mental health, musculoskeletal)? @ -[Differential Mental Health Depression, anxiety, bipolar, psychosis, schizophrenia, borderline personality, situational depression, adjustment disorder, behavioral disorder, brain tumor, malingering, substance abuse, encephalopathy, medication reaction, dementia, hypothyroidism, degenerative neurologic disorder, lupus.... This is not meant to be all-inclusive list EKG interpreted by me (3pts min.). @ -[As above] X-rays interpreted by me (1pt min.). @ -[None done] CT interpreted by me (1pt min.). @ -[None done] U/S interpreted by me (1pt. min.). @ -[None done] What testing was considered but not performed or refused? (CT, X-rays, U/S, labs)? Why? @ -[None] What meds were considered but not given or refused? Why? @ -[None] Did you discuss the management of the patient with other professionals (professionals i.e. , PA, SYSTEM SALES CONSULTANT, lab, RT, psych nurse, health and social care teacher, assistant dean of students, teacher, lead security officer, briefcase sewer)? Give summary @ -[Case discussed with EPS and after they staffed with psychiatrist they will admit for further inpatient care Was smoking cessation discussed for >3mins.? @ -[No] Was critical care preformed (if so, how long)? @ -[No] Were there social determinants of health that impacted care today? How? (Homelessness, low income, unemployed, alcoholism, drug addiction, transportation, low edu. Level, literacy, decrease access to med. care, halfway, rehab)? @ -[No] Was there de-escalation of care discussed even if they declined (Discuss DNR or withdrawal of care, Hospice)? DNR status @ -[No] What co-morbidities impacted this encounter? (DM, HTN, Smoking, COPD, CAD, Cancer, CVA, ARF, Chemo, Hep., AIDS, mental health diagnosis, sleep apnea, morbid obesity)? @ -[None] Was patient admitted / discharged? Hospital course, mention meds given and route, prescriptions, significant lab abnormalities, going to OR and other pertinent info. @ -[As above Undiagnosed new problem with uncertain prognosis? @ -[No] Drug Therapy requiring intensive monitoring for toxicity (Heparin, Nitro, Insulin, Cardizem)? @ -[No] Were any procedures done? @ -[No] Diagnosis/symptom? @ -[Acute on chronic mood disorder Acute, or Chronic, or Acute on Chronic? @ -[Acute on chronic Uncomplicated (without systemic symptoms) or Complicated (systemic symptoms)? @ -[Complicated by suicidal ideation Side effects of treatment? @ -[No] Exacerbation, Progression, or Severe Exacerbation? @ -[No] Poses a threat to life or bodily function? How? (Chest pain, [place], [place], pneumonia, PE, COPD, DKA, ARF, appy, cholecystitis, CVA, Diverticulitis, Homicidal, Suicidal, threat to staff... and all critical care pts) @ -[Yes - Lab Data Result diagrams: 05/31/24 09:40 05/31/24 09:40 Lab Results 05/29/24 05/29/24 Range/Units 23:07 23:30 Urine Opiates Screen Not Detected (NotDetected) Ur Oxycodone Screen Not Detected (NotDetected) Urine Methadone Screen Not Detected (NotDetected) Ur Barbiturates Screen Detected H (NotDetected) U Tricyclic Antidepress Not Detected (NotDetected) Ur Phencyclidine Scrn Not Detected (NotDetected) Ur Amphetamines Screen Not Detected (NotDetected) U Methamphetamines Scrn Not Detected (NotDetected) U Benzodiazepines Scrn Not Detected (NotDetected) Urine Cocaine Screen Not Detected (NotDetected) U Marijuana (THC) Screen Not Detected (NotDetected) Influenza Type A (PCR) Not Detected (Not Detectd) Influenza Type B (PCR) Not Detected (Not Detectd) RSV (PCR) Not Detected (Not Detectd) SARS-CoV-2 (PCR) Not Detected (Not Detectd) Disposition Clinical Impression: Suicidal ideation, Mood disorder Disposition: ADMITTED IP TO THIS [facility] Condition: Stable Is patient prescribed a controlled substance at d/c from ED?: No
[2024-05-30] MEDS ORDERED: MAG HYDROX/AL HYDROX/SIMETH 355 ML BOTTLE PO PRN (00:10)
[2024-05-30] MEDS ORDERED: HALOPERIDOL LACTATE 5 MG/ML 1 ML VIAL IM PRN (00:10)
[2024-05-30] MEDS ORDERED: LORazepam 2 MG/ML INJ IM PRN (00:10)
[2024-05-30] MEDS ORDERED: MAGNESIUM HYDROXIDE 2,400 MG/30 ML CUP PO PRN (00:10)
[2024-05-30] MEDS ORDERED: IBUPROFEN 600 MG TAB PO PRN (00:10)
[2024-05-30] MEDS ORDERED: haloperidoL 5 MG TAB PO PRN (00:10)
[2024-05-30] MEDS ORDERED: ACETAMINOPHEN TAB 325 MG TAB PO PRN (00:10)
[2024-05-30] MEDS ORDERED: CYCLOBENZAPRINE 10 MG TAB PO PRN (00:14)
[2024-05-30 00:48] LABS: Amphetamine Screen,Urine Not Detected (NotDetected); Barbiturate Screen,Urine Detected (NotDetected); Benzodiazepines Screen,Urine Not Detected (NotDetected); Cocaine Screen,Urine Not Detected (NotDetected); Methadone Screen, Urine Not Detected (NotDetected); Opiate Screen,Urine Not Detected (NotDetected); Oxycodone Screen, Urine Not Detected (NotDetected); Phencyclidine Screen,Urine Not Detected (NotDetected); Tricyclic Antidepressant,Urine Not Detected (NotDetected); Urn Cannabinoid Scrn Not Detected (NotDetected)
[2024-05-30] MEDS: lamoTRIgine 100 MG TAB PO SCH (01:07)
[2024-05-30] MEDS: traZODone HCL 100 MG TAB PO SCH (01:07)
[2024-05-30] MEDS: ZONISAMIDE 100 MG CAP PO SCH (01:58)
[2024-05-30] MEDS: carBAMazepine 400 MG TAB.ER.12H PO SCH (01:59)
[2024-05-30] MEDS: carBAMazepine 200 MG TAB PO SCH (01:59)
[2024-05-30] MEDS: SERTRALINE 100 MG TAB PO SCH (09:01)
[2024-05-30] MEDS: NICOTINE 14MG/24HR PATCH TRANSDERM SCH (09:01)
--- NOTE | 2024-05-30 16:48 | P.CONS ---
History of Present Illness - Reason for Consult Consult date: 05/30/24 - History of Present Illness History of present illness: 34-year-old male patient with past medical history significant for seizure disorder, thyroid disorder, GERD, migraine who presented with feeling more depressed and suicidal ideations. Patient reported compliant with medications and felt that medication was not helping. Patient admitted to behavioral health unit for further evaluation and management. Internal medicine consulted for medical management. Patient denied any fever, chills, sore throat, productive cough, shortness of breath, chest pain, palpitations, nausea vomiting diarrhea constipation abdominal pain dysuria urgency frequency weakness or numbness to extremities. REVIEW OF SYSTEMS: CONSTITUTIONAL: No fever, no malaise, no fatigue. HEENT: No recent visual problems or hearing problems. Denied any sore throat. CARDIOVASCULAR: No chest pain, orthopnea, PND, no palpitations, no syncope. PULMONARY: No shortness of breath, no cough, no hemoptysis. GASTROINTESTINAL: No diarrhea, no nausea, no vomiting, no abdominal pain. NEUROLOGICAL: No headaches, no weakness, no numbness. HEMATOLOGICAL: Denies any bleeding or petechiae. GENITOURINARY: Denies any burning micturition, frequency, or urgency. MUSCULOSKELETAL/RHEUMATOLOGICAL: Denies any joint pain, swelling, or any muscle pain. ENDOCRINE: Denies any polyuria or polydipsia. The rest of the 14-point review of systems is negative. PHYSICAL EXAMINATION: GENERAL: The patient is A&O x3, NAD HEENT: EOMI, Sclerae anicteric, Moist Mucous membranes Neck: Supple, Non tender, No JVD PULMONARY: Equal breath souds B/L, No wheezing, No crackles. CARDIOVASCULAR: S1, S2 present. No murmurs, rubs, or gallops. ABDOMEN: Soft, nontender, nondistended, normoactive bowel sounds. No guarding or rebound tenderness. MUSCULOSKELETAL: No edema, No cyanosis. No clubbing. Normal ROM. Intact peripheral pulses. EXTREMITIES: No cyanosis, clubbing, or pedal edema. NEUROLOGICAL: CN 2-12 grossly intact. No FND Assessment and plan: Depression: Suicidal ideations: Management per psychiatry Seizure disorder: Continue home meds Dictation was produced using [employer] software. please excuse any grammatical, word or spelling errors. Past Medical History Past Medical History: GERD/Reflux, Seizure Disorder, Skin Disorder, Thyroid Disorder Additional Past Medical History / Comment(s): has history of epilepsy, hx grand mal seizures since childhood, migraines History of Any Multi-Drug Resistant Organisms: None Reported Past Surgical History: Adenoidectomy, Appendectomy, Cholecystectomy, Tonsillectomy Additional Past Surgical History / Comment(s): oral surgery. I & D CYST ON BACK 08/19/22 Past Anesthesia/Blood Transfusion Reactions: Previous Problems w/ Anesthesia Additional Past Anesthesia/Blood Transfusion Reaction / Comm: SLOW TO WAKE FROM ANESTHESIA" Past Psychological History: ADD/ADHD, Anxiety, Bipolar, Depression Additional Psychological History / Comment(s): per pt-he was in special education classes thru out school(has some intellectual disabilty), speech impediment. able to read and write fine. hx cluster b disorder Smoking Status: Never smoker Past Alcohol Use History: None Reported Past Drug Use History: None Reported Additional Drug Use History / Comment(s): Denies any illicit drugs or any marijuana use - Past Family History Mother Family Medical History: Cancer Additional Family Medical History / Comment(s): breast cancer Medications and Allergies Home Medications Medication Instructions Recorded Confirmed Type carBAMazepine [TEGretol XR] 400 mg PO HS 10/19/18 05/30/24 History lamoTRIgine [LaMICtal] 200 mg PO BID #0 06/28/20 05/30/24 Rx carBAMazepine [TEGretol] 200 mg PO BID 10/10/20 05/30/24 History PHENobarbitaL [Luminal] 129.6 mg PO HS 08/28/22 05/30/24 History Zonisamide [Zonegran] 400 mg PO HS 08/28/22 05/30/24 History Cyclobenzaprine [Flexeril] 10 mg PO TID PRN 03/05/24 05/30/24 History Sertraline [Zoloft] 200 mg PO DAILY 30 Days #60 tab 03/30/24 05/30/24 Rx traZODone HCL [Desyrel] 100 mg PO HS 30 Days #30 tab 03/30/24 05/30/24 Rx Cariprazine HCl [Vraylar] 3 mg PO HS 05/30/24 05/30/24 History Allergies Allergy/AdvReac Type Severity Reaction Status Date / Time No Known Allergies Allergy Verified 05/29/24 21:42 Physical Exam Vitals: Vital Signs Temp Pulse Pulse Resp BP BP Pulse Ox 05/30/24 06:59 76 116/67 05/30/24 01:10 98.2 F 60 18 119/71 98 05/30/24 01:05 64 20 124/90 96 05/29/24 21:38 98.2 F 64 17 131/85 100 Intake and Output 05/30/24 05/30/24 05/30/24 06:59 14:59 22:59 Other: Weight 82.582 kg 81.6 kg Results Labs: Abnormal Lab Results - Last 24 Hours (Table) 05/29/24 Range/Units 23:30 Ur Barbiturates Screen Detected H (NotDetected)
--- NOTE | 2024-05-30 16:58 | P.HP ---
Psychiatric H&P - . H&P Date: 05/30/24 History & Physical: IDENTIFYING DATA: Patient is a 34 year old man. HPI: Stephan Gatica is a 34-year-old male with a history of bipolar disorder and borderline personality disorder who presented to the emergency department yesterday evening following a difficult exchange with his . He reports having felt "more depressed "over the last several days prior to admission and this escalated when he had a phone exchange with his . He explains that his shared that she was having a panic attack panic attack he was unsure how to help her what to do and she told him "do not come home". He was not sure what may have upset her and felt that this was probably related to ongoing financial strain as he is a more "impulsive" devine and "she is a safer". Patient describes "feeling useless" due to difficulty maintaining steady employment. 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 Regards to depressive symptoms he reports having more difficulty sleeping lately, experiencing excessive guilt and self blame, having decreased energy, and impaired concentration. Though he does have this reported history of bipolar disorder when asked specifically about symptoms of a manic episode he denies having had any history of zac. Reports stable appetite and is not having psychomotor retardation. Patient endorses ongoing suicidal ideation which he rates as an 8 out of 10 intensity with 10 being the most severe. He endorses having had 10 out of 10 in intensity at time of admission. He finds that being around others helps him feel less isolated and seems to provide support for him. He denies identified method, intent, or plan for self directed violence. He denies homicidal ideation, intent, or plan. He denies experiencing auditory or visual hallucinations. PAST PSYCHIATRIC HISTORY: Patient has a history of at least 6 prior inpatient psychiatric admissions. He does engage with a therapist and psychiatrist through [facility]. He sees his therapist every 2 weeks and a psychiatrist once a month. He is presently taking sertraline 100 mg daily and Vraylar 3 mg daily. He is also on trazodone to help with sleep. He denies any history of suicide attempts. PMH: History of a seizure disorder diagnosed at 18 months of age and multiple prior surgeries including cholecystectomy ALLERGIES: NKA CHEMICAL DEPENDENCY HISTORY: He reports drinking alcohol 1-2 drinks approximately 1 time per year. He denies any use of tobacco including vaping. He denies any use of marijuana. He denies any use of cocaine, heroin, LSD, PCP, hallucinogens, acid, pills not prescribed to him. FAMILY PSYCHIATRIC/SUBSTANCE USE HISTORY: He largely has unknown family history though he does know that his paternal grandfather by suicide. SOCIAL HISTORY: Patient presently resides with his and 8-year-old son. He is unsure exactly how long they have been but he knows that they were prior to his son's . He reports having completed[employer] in [place]. He has been unable to find work in this field because many roles require a bachelor's degree. 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 He denies having any firearms or other weapons at home. Dorsal support is largely his ; he has "cut ties" with his biological family. Allergies Allergy/AdvReac Type Severity Reaction Status Date / Time No Known Allergies Allergy Verified 05/29/24 21:42 Vital Signs Temp 98.2 F 05/30/24 01:10 Pulse 76 05/30/24 06:59 Resp 18 05/30/24 01:10 BP 116/67 05/30/24 06:59 Pulse Ox 98 05/30/24 01:10 FiO2 Intake & Output 05/29/24 05/30/24 05/30/24 18:59 06:59 18:59 Weight 82.582 kg 81.6 kg Laboratory Last Values Urine Opiates Screen Not Detected (NotDetected) 05/29/24 23:30 Ur Oxycodone Screen Not Detected (NotDetected) 05/29/24 23:30 Urine Methadone Screen Not Detected (NotDetected) 05/29/24 23:30 Ur Barbiturates Screen Detected (NotDetected) H 05/29/24 23:30 U Tricyclic Antidepress Not Detected (NotDetected) 05/29/24 23:30 Ur Phencyclidine Scrn Not Detected (NotDetected) 05/29/24 23:30 Ur Amphetamines Screen Not Detected (NotDetected) 05/29/24 23:30 U Methamphetamines Scrn Not Detected (NotDetected) 05/29/24 23:30 U Benzodiazepines Scrn Not Detected (NotDetected) 05/29/24 23:30 Urine Cocaine Screen Not Detected (NotDetected) 05/29/24 23:30 U Marijuana (THC) Screen Not Detected (NotDetected) 05/29/24 23:30 Influenza Type A (PCR) Not Detected (Not Detectd) 05/29/24 23:07 Influenza Type B (PCR) Not Detected (Not Detectd) 05/29/24 23:07 RSV (PCR) Not Detected (Not Detectd) 05/29/24 23:07 SARS-CoV-2 (PCR) Not Detected (Not Detectd) 05/29/24 23:07 MENTAL STATUS EXAM: General Appearance: Patient appears to be stated age is alert, directable, and attempts to cooperate. Patient appears to have reasonable hygiene and grooming. Behavior: Patient is seated without any agitated behavior. Speech: Patient's speech is fluent and nonpressured. Impaired articulation. Mood/Affect: Patient reports their mood is "depressed", affect is congruent and constricted. Suicidality/Homicidality: Patient denies having any homicidal ideation intent or plan. Reports suicidal ideation; denies suicidal intent or plan Perceptions: Patient denies any visual hallucinations and denies any auditory hallucinations Though content/process: There is no evidence of any delusional thought content. There is some latency and paucity regarding thought process, but he is linear and goal-directed. Not elaborative. Memory and concentration: AOX3, grossly intact for the purposes of this session. Can spell "WORLD" backwards Judgment and insight: Poor STRENGTHS/WEAKNESSES: strength is that patient is resilient and identifies with his role as a father. Weakness is that patient is impulsive and has limited social support. INTELLECT: Average IMPRESSIONS: Stephan Bush is a 34-year-old man with a history of depression, possible bipolar disorder per his history, and borderline personality disorder who presented to the ER yesterday due to worsening depression and suicidal ideation at time of admission he told the staff that he would in his life if he were not admitted. Our discussion today he describes trained marital dynamics secondary to stressful finances and feels he largely has no support. In meeting with him we explored his current medication regimen and the recommendation was made to increase his dose of sertraline from 100 mg daily to 250 mg daily and he declined to make this increase. He shared that he would rather not make any adjustments to his medication. Discussed that part of our role in improving his mental health usually relates to optimizing his medication regimen. He explained that he finds the engagement with other patients on the unit to be helpful to him as he feels more supported and less alone. He endorses improvement in his suicidal ideations though it is still present. He denies identified method, intent, or plan. He also denies homicidal ideation and is not presently experiencing psychotic or manic symptoms. PLAN: -Patient is admitted under voluntary status to MHU for stabilization of psychiatric symptoms and safety. Patient has signed adult voluntary form and medication consent and is placed in patient's chart. -Medications : Continue sertraline 100 mg daily (patient declined to further optimize dose) and Trazodone for sleep. -Ativan and Haldol PRN for agitation/aggression -Patient was informed of the risks, benefits and side effects of the medication and patient verbally consented to taking the medications. Patient signed med consent form and was placed in chart. -Internal Medicine consult to perform medical evaluation and physical. -NRT -not needed as patient does not smoke -SW to assist with discharge planning. Encourage patient to participate in groups to work on coping skills.
[2024-05-30] MEDS ORDERED: ZONISAMIDE 100 MG CAP PO SCH (21:00)
[2024-05-30] MEDS ORDERED: carBAMazepine 400 MG TAB.ER.12H PO SCH (21:00)
[2024-05-30] MEDS: NON FORMULARY DRUG (Cariprazine Hcl [Vraylar] 3 MG Capsule) PO SCH (21:23)
[2024-05-31 08:23] VITALS: RESP 16
[2024-05-31] MEDS: lamoTRIgine 100 MG TAB PO SCH (08:26)
[2024-05-31] MEDS: IBUPROFEN 600 MG TAB PO PRN (08:31)
[2024-05-31 10:01] LABS: Basophils % (A) 0 %; Eosinophils # (A) 0.4 k/uL (0-0.7); Eosinophils % (A) 8 %; HCT 43.1 % (39.0-53.0); HGB 14.1 gm/dL (13.0-17.5); Lymphocytes # (A) 1.6 k/uL (1.0-4.8); Lymphocytes % (A) 35 %; MCH 32.1 pg (25.0-35.0); MCHC 32.6 g/dL (31.0-37.0); MCV 98.4 fL (80.0-100.0); Mean Platelet Volume 6.8; Monocytes # (A) 0.2 k/uL (0-1.0); Monocytes % (A) 4 %; Neutrophils # (A) 2.4 k/uL (1.3-7.7); Neutrophils % (A) 52 %; Platelet Count 165 k/uL (150-450); RBC 4.38 m/uL (4.30-5.90); RDW 12.8 % (11.5-15.5); WBC 4.6 k/uL (3.8-10.6)
[2024-05-31 10:40] LABS: ALT 15 U/L (4-49); AST 23 U/L (17-59); African American GFR (CKD) >90 (>60 ml/min/1.73 sqM); Albumin 4.3 g/dL (3.5-5.0); Alkaline Phosphatase 84 U/L (38-126); Anion Gap 5 mmol/L; Bilirubin, Delta 0.2 mg/dL (0.0-0.2); Bilirubin,Unconjugated 0.2 mg/dL (0.0-1.1); Blood Urea Nitrogen 12 mg/dL (9-20); Calcium 9.4 mg/dL (8.4-10.2); Carbon Dioxide 25 mmol/L (22-30); Chloride 112 mmol/L (98-107); Glucose 75 mg/dL (74-99); Non-African American GFR(CKD) >90 (>60 ml/min/1.73 sqM); Potassium 4.5 mmol/L (3.5-5.1); Sodium 142 mmol/L (137-145); Total Bilirubin 0.4 mg/dL (0.2-1.3); Total Protein 7.1 g/dL (6.3-8.2)
[2024-05-31 11:13] LABS: Appearance,Urine Clear (Clear); Bilirubin,Urine Negative (Negative); Blood,Urine Negative (Negative); Color,Urine Yellow; Glucose,Urine (UA) Negative (Negative); Ketones,Urine Negative (Negative); Leukocyte Esterase,Urine Negative (Negative); Nitrite,Urine Negative (Negative); Protein,Urine Trace (Negative); Specific Gravity,Urine 1.025 (1.001-1.035); Urobilinogen,Urine <2.0 mg/dL (<2.0)
--- NOTE | 2024-05-31 11:28 | P.PN ---
Progress Note - Text Progress Note Date: 05/31/24 Interval History: Patient was seen [wandering the hallways] and was directable and agreeable to speak with chief writer in the office. He states that he came to the hospital friday night, because he got into an argument with his . He states that he had increasing depression for 4 days, and he just blew up. He states he is feeling better now, and is no longer endorsing suicidal thoughts. He states he is sleeping the way he should be. And that his appetite is the way it should be. At this time patient denies any suicidal or homicidal ideations, intent or plan. Patient denies any auditory, visual hallucinations and denies any paranoia or delusions. Patient denies any side effects from the medications and has been compliant with meds. MENTAL STATUS EXAM: General Appearance: Patient appears to be stated age is alert, directable, and attempts to cooperate. Patient appears to have reasonable hygiene and grooming. Behavior: Patient is seated without any agitated behavior. vague and evasive. Speech: Patient's speech is fluent and nonpressured. Impaired articulation. Mood/Affect: Patient reports their mood is "depressed", affect is congruent and constricted. Suicidality/Homicidality: Patient denies having any homicidal ideation intent or plan. Denies suicidal ideation; denies suicidal intent or plan Perceptions: Patient denies any visual hallucinations and denies any auditory hallucinations Though content/process: There is no evidence of any delusional thought content. There is some latency and paucity regarding thought process, but he is linear and goal-directed. Not elaborative. Memory and concentration: AOX3, grossly intact for the purposes of this session. Judgment and insight: chronically Poor and impulsive. 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 Patient has signed adult voluntary form and medication consent and is placed in patient's chart. -Medications : Zoloft 100 mg daily for depression/anxiety, Trazodone 100mg for sleep. Lamictal 200mg bid for mood stabilization -continue with home dose of AED -Ativan and Haldol PRN for agitation/aggression -NRT -not needed as patient does not smoke -SW to assist with discharge planning. Encourage patient to participate in groups to work on coping skills.
[2024-06-01 10:51] LABS: Chol/HDL Ratio 4.19 Ratio; LDL Cholesterol,Calculated 101.9 mg/dL (0.0-131.0)
--- NOTE | 2024-06-01 11:39 | P.PN ---
Progress Note - Text Progress Note Date: 06/01/24 Interval History: Patient was seen [wandering the hallways] and was directable and agreeable to speak with functional tester typewriters in the office. He states that he is great today. He is going to groups. He claims to be sleeping well, and his appetite is good. He is inquiring about discharge. At this time patient denies any suicidal or homicidal ideations, intent or plan. Patient denies any auditory, visual hallucinations and denies any paranoia or delusions. Patient denies any side effects from the medications and has been compliant with meds. continues to be fairly superficial about the circumstances and the fight with his that led him for discharge. He continues to focus on discharge. MENTAL STATUS EXAM: General Appearance: Patient appears to be stated age is alert, directable, and attempts to cooperate. Patient appears to have reasonable hygiene and grooming. Behavior: Patient is seated without any agitated behavior. vague and evasive. mildly improving Speech: Patient's speech is fluent and nonpressured. Impaired articulation. Mood/Affect: Patient reports their mood is "great", affect is congruent and constricted. mildly improving Suicidality/Homicidality: Patient denies having any homicidal ideation intent or plan. Denies suicidal ideation; denies suicidal intent or plan Perceptions: Patient denies any visual hallucinations and denies any auditory hallucinations Though content/process: There is no evidence of any delusional thought content. There is some latency and paucity regarding thought process. Memory and concentration: AOX3, grossly intact for the purposes of this session. Judgment and insight: chronically Poor and impulsive. 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 Patient has signed adult voluntary form and medication consent and is placed in patient's chart. -Medications : Zoloft 200 mg daily for depression/anxiety, Trazodone 100mg for sleep. Lamictal 200mg bid for mood stabilization -continue with home dose of AED -Ativan and Haldol PRN for agitation/aggression -NRT -not needed as patient does not smoke -SW to assist with discharge planning. Encourage patient to participate in groups to work on coping skills. Likely discharge if patient is improving and is willing to take him back
[2024-06-01] MEDS: LORazepam 1 MG TAB PO PRN (20:06)
[2024-06-02 07:18] VITALS: BP 105/74; PULSE 69; TEMP 97.9
--- NOTE | 2024-06-02 10:30 | P.DS ---
Providers Date of admission: 05/30/24 00:08 Expected date of discharge: 06/02/24 Attending physician: Blane Paul MD Consults: 05/30/24 00:10 Consult Physician Routine Consulting Provider: Ana Maria Samson Consult Reason/Comments: h&p Do you want consulting provider notified?: Yes, Notify in am Primary care physician: Ana Maria Samson - Discharge Diagnosis(es) (1) Major depressive disorder without psychotic features Current Visit: No Status: Acute Priority: High (2) Adjustment disorder with mixed disturbance of emotions and conduct Current Visit: No Status: Acute Priority: High (3) Borderline personality disorder Current Visit: No Status: Acute Priority: High (4) Seizure disorder Current Visit: No Status: Acute Priority: Medium Hospital Course: Admission HPI: Admission note was completed by Dr Garibay "Stephan Gatica is a 34-year-old male with a history of bipolar disorder and borderline personality disorder who presented to the emergency department yesterday evening following a difficult exchange with his . He reports having felt "more depressed "over the last several days prior to admission and this escalated when he had a phone exchange with his . He explains that his shared that she was having a panic attack panic attack he was unsure how to help her what to do and she told him "do not come home". He was not sure what may have upset her and felt that this was probably related to ongoing financial strain as he is a more "impulsive" devine and "she is a safer". Patient describes "feeling useless" due to difficulty maintaining steady employment. 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 Regards to depressive symptoms he reports having more difficulty sleeping lately, experiencing excessive guilt and self blame, having decreased energy, and impaired concentration. Though he does have this reported history of bipolar disorder when asked specifically about symptoms of a manic episode he denies having had any history of zac. Reports stable appetite and is not having psychomotor retardation. Patient endorses ongoing suicidal ideation which he rates as an 8 out of 10 intensity with 10 being the most severe. He endorses having had 10 out of 10 in intensity at time of admission. He finds that being around others helps him fee l less isolated and seems to provide support for him. He denies identified method, intent, or plan for self directed violence. He denies homicidal ideation, intent, or plan. He denies experiencing auditory or visual hallucinations." Hospital course: Upon admission to the unit patient was directable and agreeable to commence treatment and signed adult voluntary form. Patient got along well with other patients on the unit and followed unit protocol. Patient was compliant with the medications and denied any side effects throughout hospital course. Patient was started on Zoloft 200 mg daily for depression/anxiety, trazodone 100 mg nightly for sleep, Lamictal 200 mg twice daily for mood stabilization, he was continued on his home dose of antiepileptic medications. Patient spoke of his stressors and engaged in therapy both group and individual. Patient was also seen by medical team for history and physical exam. Throughout the course of the hospitalization patient gradually improved with regards to mood, anxiety, suicidal thoughts, sleep and returned back to their baseline level of functioning. On the day of discharge patient denied any suicidal or homicidal ideations intent or plan denied any auditory or visual hallucinations. Patient endorsed wanting to live for his health and family. The patient denied any access to guns or weapons. Patient denied any paranoia and did not endorse any delusions. Patient does not have a significant history of substance abuse and was counseled on abstaining from all substances including alcohol and marijuana. Patient was also counseled on the medications and need for regular compliance and was encouraged to follow-up with their outpatient appointment for mental health and also for primary care. Prior to discharge a family meeting will be arranged by director of social work to answer any questions and ensure safety upon discharge. Patient will be discharged back home today. Mental status exam: General Appearance: Patient appears to be unshaven, wearing glasses, stated age is alert, pleasant, and cooperative. Patient is in no acute distress and has improved hygiene and grooming Behavior: Patient is calmly seated without any agitated behavior. Speech: Patient's speech is fluent and nonpressured. Mood/Affect: Patient reports their mood is "good", affect is congruent and euthymic. Suicidality/Homicidality: Patient denies having any suicidal or homicidal ideation intent or plan. Perceptions: Patient denies any auditory or visual hallucinations. Though content/process: There is no evidence of any delusional thought content and thought process is linear and goal-directed. Memory and concentration: AOX3, grossly intact for the purposes of this session. Can spell "WORLD" backwards correctly. Judgment and insight: Chronically limited, improved with guarded prognosis Impression: adjustment disorder with disturbance in emotions and conduct Major depressive disorder Borderline personality disorder Seizure disorder Plan: -Continue with discharge today as patient has improved and stabilized psychiatrically and is not currently an imminent threat to himself and/or others. Patient will remain at chronically elevated risk for harm to self and/or others due to his chronic impulsivity. -Continue medications: Zoloft 200 mg daily for mood/anxiety, trazodone 100 mg nightly for sleep/mood, Lamictal 200 mg twice daily for mood stabilization. -Patient was counseled on the need for medication compliance and appropriate follow-up at mental health and also primary care for medical issues. Patient verbalized understanding and agreed. -Social work to arrange for and conduct family meeting to ensure safety upon discharge and answer any questions/concerns. Social work also to arrange for patients follow up appointments for psychiatric care along with follow up with primary care provider. -Patient counseled on abstaining from recreational drugs and marijuana and alcohol. Was informed/educated on the adverse effects on their physical and mental health. Patient verbally agreed and understood. -Patient was instructed to return to the hospital or seek immediate medical care if their psychiatric or medical symptoms do worsen or reoccur. Allergies Allergy/AdvReac Type Severity Reaction Status Date / Time No Known Allergies Allergy Verified 05/29/24 21:42 Laboratory Results WBC 4.6 k/uL (3.8-10.6) 05/31/24 09:40 RBC 4.38 m/uL (4.30-5.90) 05/31/24 09:40 Hgb 14.1 gm/dL (13.0-17.5) 05/31/24 09:40 Hct 43.1 % (39.0-53.0) 05/31/24 09:40 MCV 98.4 fL (80.0-100.0) 05/31/24 09:40 MCH 32.1 pg (25.0-35.0) 05/31/24 09:40 MCHC 32.6 g/dL (31.0-37.0) 05/31/24 09:40 RDW 12.8 % (11.5-15.5) 05/31/24 09:40 Plt Count 165 k/uL (150-450) 05/31/24 09:40 MPV 6.8 05/31/24 09:40 Neutrophils % 52 % 05/31/24 09:40 Lymphocytes % 35 % 05/31/24 09:40 Monocytes % 4 % 05/31/24 09:40 Eosinophils % 8 % 05/31/24 09:40 Basophils % 0 % 05/31/24 09:40 Neutrophils # 2.4 k/uL (1.3-7.7) 05/31/24 09:40 Lymphocytes # 1.6 k/uL (1.0-4.8) 05/31/24 09:40 Monocytes # 0.2 k/uL (0-1.0) 05/31/24 09:40 Eosinophils # 0.4 k/uL (0-0.7) 05/31/24 09:40 Basophils # 0.0 k/uL (0-0.2) 05/31/24 09:40 Sodium 142 mmol/L (137-145) 05/31/24 09:40 Potassium 4.5 mmol/L (3.5-5.1) 05/31/24 09:40 Chloride 112 mmol/L (98-107) H 05/31/24 09:40 Carbon Dioxide 25 mmol/L (22-30) 05/31/24 09:40 Anion Gap 5 mmol/L 05/31/24 09:40 BUN 12 mg/dL (9-20) 05/31/24 09:40 Creatinine 1.05 mg/dL (0.66-1.25) 05/31/24 09:40 Est GFR (CKD-EPI)AfAm >90 (>60 ml/min/1.73 sqM) 05/31/24 09:40 Est GFR (CKD-EPI)NonAf >90 (>60 ml/min/1.73 sqM) 05/31/24 09:40 Glucose 75 mg/dL (74-99) 05/31/24 09:[address] Glu mg/dL 103 mg/dL 05/31/24 09:40 Hemoglobin A1c 5.2 % (<=6.0) 05/31/24 09:40 Calcium 9.4 mg/dL (8.4-10.2) 05/31/24 09:40 Total Bilirubin 0.4 mg/dL (0.2-1.3) 05/31/24 09:40 Conjugated Bilirubin 0.0 mg/dL (0.0-0.3) 05/31/24 09:40 Unconjugated Bilirubin 0.2 mg/dL (0.0-1.1) 05/31/24 09:40 Delta Bilirubin 0.2 mg/dL (0.0-0.2) 05/31/24 09:40 AST 23 U/L (17-59) 05/31/24 09:40 ALT 15 U/L (4-49) 05/31/24 09:40 Alkaline Phosphatase 84 U/L (38-126) 05/31/24 09:40 Total Protein 7.1 g/dL (6.3-8.2) 05/31/24 09:40 Albumin 4.3 g/dL (3.5-5.0) 05/31/24 09:40 Triglycerides 111.00 mg/dL (0.00-149.00) 05/31/24 09:40 Cholesterol 163.00 mg/dL (0.00-200.00) 05/31/24 09:40 LDL Cholesterol, Calc 101.9 mg/dL (0.0-131.0) 05/31/24 09:40 VLDL Cholesterol, Calc 22.20 mg/dL (5.00-40.00) 05/31/24 09:40 HDL Cholesterol 38.90 mg/dL (40.00-60.00) L 05/31/24 09:40 Cholesterol/HDL Ratio 4.19 Ratio 05/31/24 09:40 TSH 0.737 mIU/L (0.465-4.680) 05/31/24 09:40 Urine Color Yellow 05/31/24 10:32 Urine Appearance Clear (Clear) 05/31/24 10:32 Urine pH 6.0 (5.0-8.0) 05/31/24 10:32 Ur Specific [place] 1.025 (1.001-1.035) 05/31/24 10:32 Urine Protein Trace (Negative) H 05/31/24 10:32 Urine Glucose (UA) Negative (Negative) 05/31/24 10:32 Urine Ketones Negative (Negative) 05/31/24 10:32 Urine Blood Negative (Negative) 05/31/24 10:32 Urine Nitrite Negative (Negative) 05/31/24 10:32 Urine Bilirubin Negative (Negative) 05/31/24 10:32 Urine Urobilinogen <2.0 mg/dL (<2.0) 05/31/24 10:32 Ur Leukocyte Esterase Negative (Negative) 05/31/24 10:32 Urine Opiates Screen Not Detected (NotDetected) 05/29/24 23:30 Ur Oxycodone Screen Not Detected (NotDetected) 05/29/24 23:30 Urine Methadone Screen Not Detected (NotDetected) 05/29/24 23:30 Ur Barbiturates Screen Detected (NotDetected) H 05/29/24 23:30 U Tricyclic Antidepress Not Detected (NotDetected) 05/29/24 23:30 Ur Phencyclidine Scrn Not Detected (NotDetected) 05/29/24 23:30 Ur Amphetamines Screen Not Detected (NotDetected) 05/29/24 23:30 U Methamphetamines Scrn Not Detected (NotDetected) 05/29/24 23:30 U Benzodiazepines Scrn Not Detected (NotDetected) 05/29/24 23:30 Urine Cocaine Screen Not Detected (NotDetected) 05/29/24 23:30 U Marijuana (THC) Screen Not Detected (NotDetected) 05/29/24 23:30 Influenza Type A (PCR) Not Detected (Not Detectd) 06/02/24 08:45 Influenza Type B (PCR) Not Detected (Not Detectd) 06/02/24 08:45 RSV (PCR) Not Detected (Not Detectd) 06/02/24 08:45 SARS-CoV-2 (PCR) Not Detected (Not Detectd) 06/02/24 08:45 Vital Signs Temp 97.9 F 06/02/24 06:42 Pulse 69 06/02/24 06:42 Resp 16 06/02/24 06:42 BP 105/74 06/02/24 06:42 Pulse Ox 97 06/02/24 06:42 FiO2 Patient Condition at Discharge: Stable Plan - Discharge Summary Discharge Rx Participant: Yes New Discharge Prescriptions: Continue carBAMazepine [TEGretol XR] 400 mg PO HS lamoTRIgine [LaMICtal] 200 mg PO BID #0 carBAMazepine [TEGretol] 200 mg PO BID traZODone HCL [Desyrel] 100 mg PO HS 30 Days #30 tab Zonisamide [Zonegran] 400 mg PO HS PHENobarbitaL [Luminal] 129.6 mg PO HS Cyclobenzaprine [Flexeril] 10 mg PO TID PRN PRN Reason: muscle spasms Sertraline [Zoloft] 200 mg PO DAILY 30 Days #60 tab Cariprazine HCl [Vraylar] 3 mg PO HS Discharge Medication List carBAMazepine [TEGretol XR] 400 mg PO HS 10/19/18 [History] lamoTRIgine [LaMICtal] 200 mg PO BID #0 06/28/20 [Rx] carBAMazepine [TEGretol] 200 mg PO BID 10/10/20 [History] PHENobarbitaL [Luminal] 129.6 mg PO HS 08/28/22 [History] Zonisamide [Zonegran] 400 mg PO HS 08/28/22 [History] Cyclobenzaprine [Flexeril] 10 mg PO TID PRN 03/05/24 [History] Sertraline [Zoloft] 200 mg PO DAILY 30 Days #60 tab 03/30/24 [Rx] traZODone HCL [Desyrel] 100 mg PO HS 30 Days #30 tab 03/30/24 [Rx] Cariprazine HCl [Vraylar] 3 mg PO HS 05/30/24 [History] Follow up Appointment(s)/Referral(s): [facility] [Outside] - 06/08/24 11:30 am (Iain LOPES 06/08 @ 11:30 med review Fidelina 06/09 @ 11:30 counseling) Ana Maria Samson MD [Primary Care Provider] - 1-2 days Discharge Disposition: HOME SELF-CARE
== END 2024-06-02 12:55 | disposition home or self-care (01) | DRG 882 ==
LOC: EC 21:37 → 3MHU 05-30 00:08
PROVIDERS: ADMIT Psychiatry & Neurology Psychiatry; ATTEND Psychiatry & Neurology Psychiatry
DX: F43.25 Adjustment disorder with mixed disturbance of emotions and conduct (principal); R45.851 Suicidal ideations; F60.3 Borderline personality disorder; K21.9 Gastro-esophageal reflux disease without esophagitis; G40.909 Epilepsy, unspecified, not intractable, without status epilepticus; E07.9 Disorder of thyroid, unspecified; F32.9 Major depressive disorder, single episode, unspecified; F41.9 Anxiety disorder, unspecified; Z11.52 Encounter for screening for COVID-19; Z79.899 Other long term (current) drug therapy; Z63.0 Problems in relationship with spouse or partner
CPT/HCPCS: 80053; 80061; 80306; 81003; 82075; 82248; 83036; 84443; 85025; 87636; 99285

== ENCOUNTER 2024-10-02 19:20 | Emergency (ER) | payer MEDICARE, OTHER ==
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
[2024-10-02 21:10] LABS: Amphetamine Screen,Urine Not Detected (NotDetected); Barbiturate Screen,Urine Detected (NotDetected); Benzodiazepines Screen,Urine Not Detected (NotDetected); Cocaine Screen,Urine Not Detected (NotDetected); Methadone Screen, Urine Not Detected (NotDetected); Opiate Screen,Urine Not Detected (NotDetected); Oxycodone Screen, Urine Not Detected (NotDetected); Phencyclidine Screen,Urine Not Detected (NotDetected); Tricyclic Antidepressant,Urine Not Detected (NotDetected); Urn Cannabinoid Scrn Not Detected (NotDetected)
[2024-10-02 21:49] LABS: Basophils % (A) 0 %; Eosinophils # (A) 0.1 k/uL (0-0.7); Eosinophils % (A) 2 %; HCT 41.5 % (39.0-53.0); HGB 14.5 gm/dL (13.0-17.5); Lymphocytes # (A) 1.7 k/uL (1.0-4.8); Lymphocytes % (A) 31 %; MCH 32.8 pg (25.0-35.0); MCHC 34.9 g/dL (31.0-37.0); MCV 94.1 fL (80.0-100.0); Mean Platelet Volume 6.9; Monocytes # (A) 0.3 k/uL (0-1.0); Monocytes % (A) 5 %; Neutrophils # (A) 3.3 k/uL (1.3-7.7); Neutrophils % (A) 60 %; Platelet Count 166 k/uL (150-450); RBC 4.41 m/uL (4.30-5.90); RDW 12.1 % (11.5-15.5); WBC 5.4 k/uL (3.8-10.6)
[2024-10-02 21:58] LABS: African American GFR (CKD) >90 (>60 ml/min/1.73 sqM); Anion Gap 12 mmol/L; Blood Urea Nitrogen 10 mg/dL (9-20); Calcium 9.1 mg/dL (8.4-10.2); Carbon Dioxide 20 mmol/L (22-30); Chloride 105 mmol/L (98-107); Glucose 121 mg/dL (74-99); Non-African American GFR(CKD) >90 (>60 ml/min/1.73 sqM); Potassium 3.8 mmol/L (3.5-5.1); Sodium 137 mmol/L (137-145)
[2024-10-02] MEDS: lamoTRIgine 100 MG TAB PO STA (22:19)
[2024-10-02] MEDS: traZODone HCL 100 MG TAB PO SCH (23:09)
[2024-10-02] MEDS: MONTELUKAST 10 MG TAB PO STA (23:09)
[2024-10-02] MEDS: ZONISAMIDE 100 MG CAP PO ONE (23:09)
[2024-10-02] MEDS: carBAMazepine 200 MG TAB PO STA (23:10)
[2024-10-02] MEDS: carBAMazepine 400 MG TAB.ER.12H PO ONE (23:10)
[2024-10-03 02:05] LABS: Appearance,Urine Clear (Clear); Bilirubin,Urine Negative (Negative); Blood,Urine Negative (Negative); Color,Urine Yellow; Glucose,Urine (UA) Negative (Negative); Ketones,Urine Negative (Negative); Leukocyte Esterase,Urine Negative (Negative); Nitrite,Urine Negative (Negative); PH, Urine 5.5 (5.0-8.0); Protein,Urine Trace (Negative); Specific Gravity,Urine 1.017 (1.001-1.035); Urobilinogen,Urine <2.0 mg/dL (<2.0)
[2024-10-03 08:03] VITALS: BP 109/70; PULSE 68; RESP 16; TEMP 98
[2024-10-03] MEDS: SERTRALINE 100 MG TAB PO SCH (08:03)
[2024-10-03] MEDS: carBAMazepine 200 MG TAB PO STA (08:03)
[2024-10-03] MEDS: lamoTRIgine 100 MG TAB PO STA (08:03)
== END 2024-10-03 09:55 ==
LOC: EC 19:20
DX: R45.850 Homicidal ideations (principal); Z11.52 Encounter for screening for COVID-19
CPT/HCPCS: 36415; 80048; 80306; 81003; 82075; 85025; 87636; 99285

== ENCOUNTER → 2024-10-29 | Outpatient (CLI) | payer MEDICARE, OTHER | END | disposition home or self-care (01) | LOC: LABWHC1 11:02 | PROVIDERS: ATTEND Psychiatry & Neurology Neurology | DX: G40.319 Generalized idiopathic epilepsy and epileptic syndromes, intractable, without status epilepticus (principal) | CPT/HCPCS: 80175; 80203; 36415; G0480; 80161 ==

== ENCOUNTER 2024-12-08 16:11 | Inpatient (IN) | payer MEDICARE, MEDICAID ==
--- NOTE | 2024-12-08 17:22 | ED ---
Psych HPI - General Chief Complaint: Psychiatric Symptoms Stated Complaint: petition Time Seen by Provider: 12/08/24 17:21 Source: patient, police, RN notes reviewed Mode of arrival: ambulatory - History of Present Illness Initial Comments: 34-year-old male petitioned by police department for suicidal ideation. States he had a plan to jump in front of a car therefore he decided to call 911. Denies homicidal ideation. States he would like to be admitted to 3 . - Related Data Home Medications Medication Instructions Recorded Confirmed carBAMazepine [TEGretol XR] 400 mg PO HS 10/19/18 09/16/24 carBAMazepine [TEGretol] 200 mg PO BID 10/10/20 09/16/24 PHENobarbitaL [Luminal] 129.6 mg PO HS 08/28/22 09/16/24 Zonisamide [Zonegran] 400 mg PO HS 08/28/22 09/16/24 Cyclobenzaprine [Flexeril] 10 mg PO TID PRN 03/05/24 09/16/24 Cariprazine HCl [Vraylar] 3 mg PO HS 05/30/24 09/16/24 LORazepam [Ativan] 0.5 mg PO DAILY PRN 09/16/24 Montelukast [Singulair] 1 tab PO HS 09/16/24 Previous Rx's Medication Instructions Recorded lamoTRIgine [LaMICtal] 200 mg PO BID #0 06/28/20 Sertraline [Zoloft] 200 mg PO DAILY 30 Days #60 tab 03/30/24 traZODone HCL [Desyrel] 100 mg PO HS 30 Days #30 tab 03/30/24 Allergies Allergy/AdvReac Type Severity Reaction Status Date / Time No Known Allergies Allergy Verified 12/08/24 16:38 Review of Systems ROS Statement: Those systems with pertinent positive or pertinent negative responses have been documented in the HPI. ROS Other: All systems not noted in ROS Statement are negative. Past Medical History Past Medical History: GERD/Reflux, Seizure Disorder, Skin Disorder Additional Past Medical History / Comment(s): has history of epilepsy, hx grand mal seizures since childhood, migraines, acne History of Any Multi-Drug Resistant Organisms: None Reported Past Surgical History: Adenoidectomy, Appendectomy, Cholecystectomy, Tonsil lectomy Additional Past Surgical History / Comment(s): oral surgery. I & D CYST ON BACK 08/19/22, egd Past Anesthesia/Blood Transfusion Reactions: Previous Problems w/ Anesthesia Additional Past Anesthesia/Blood Transfusion Reaction / Comment(s): SLOW TO WAKE FROM ANESTHESIA", no blood transfusion Past Psychological History: ADD/ADHD, Anxiety, Bipolar, Depression Smoking Status: Never smoker Past Alcohol Use History: Rare Past Drug Use History: None Reported - Past Family History Mother Family Medical History: Cancer Additional Family Medical History / Comment(s): breast cancer General Exam Limitations: no limitations General appearance: alert, in no apparent distress Head exam: Present: atraumatic, normocephalic, normal inspection Eye exam: Present: normal appearance, PERRL, EOMI. Absent: scleral icterus, conjunctival injection, periorbital swelling ENT exam: Present: normal exam, mucous membranes moist Neurological exam: Present: alert, oriented X3 Psychiatric exam: Present: normal affect, normal mood, suicidal ideation. Absent: homicidal ideation Skin exam: Present: warm, dry, intact, normal color. Absent: rash Course Vital Signs 12/08/24 16:36 Temperature 98 F Pulse Rate 98 Respiratory 18 Rate Blood Pressure 134/78 O2 Sat by Pulse 99 Oximetry Medical Decision Making - Medical Decision Making Was pt. sent in by a medical professional or institution (, PA, SUPERVISOR [employer]SEMBLY, urgent care, hospital, or longterm...) When possible be specific @ -No Did you speak to anyone other than the patient for history (EMS, parent, family, police, friend...)? What history was obtained from this source @ -No Did you review nursing and triage notes (agree or disagree)? Why? @ -I reviewed and agree with nursing and triage notes Were old charts reviewed (outside hosp., previous admission, EMS record, old EKG, old radiological studies, urgent care reports/EKG's, longterm records)? Report findings @ -No old charts were reviewed Differential Diagnosis (chest pain, altered mental status, abdominal pain women, abdominal pain men, vaginal bleeding, weakness, fever, dyspnea, syncope, headache, dizziness, GI bleed, back pain, seizure, CVA, palpatations, mental health, musculoskeletal)? @ -Differential Mental Health Depression, anxiety, bipolar, psychosis, schizophrenia, borderline personality, situational depression, adjustment disorder, behavioral disorder, brain tumor, malingering, substance abuse, encephalopathy, medication reaction, dementia, hypothyroidism, degenerative neurologic disorder, lupus.... This is not meant to be all-inclusive list EKG interpreted by me (3pts min.). @ -None X-rays interpreted by me (1pt min.). @ -None done CT interpreted by me (1pt min.). @ -None done U/S interpreted by me (1pt. min.). @ -None done What testing was considered but not performed or refused? (CT, X-rays, U/S, labs)? Why? @ -None What meds were considered but not given or refused? Why? @ -None Did you discuss the management of the patient with other professionals (professionals i.e. DrMary, PA, SUPERVISOR [employer]SEMBLY, lab, RT, psych nurse, social welfare research worker, corporate lawyer, teacher, debt recovery officer, mental health case manager)? Give summary @ -I spoke with Rhonda from [facility] who recommends admission for inpatient psychiatric treatment Was smoking cessation discussed for >3mins.? @ -No Was critical care preformed (if so, how long)? @ -No Were there social determinants of health that impacted care today? How? (Homelessness, low income, unemployed, alcoholism, drug addiction, transportation, low edu. Level, literacy, decrease access to med. care, detention, rehab)? @ -No Was there de-escalation of care discussed even if they declined (Discuss DNR or withdrawal of care, Hospice)? DNR status @ -No What co-morbidities impacted this encounter? (DM, HTN, Smoking, COPD, CAD, Cancer, CVA, ARF, Chemo, Hep., AIDS, mental health diagnosis, sleep apnea, morbid obesity)? @ -None Was patient admitted / discharged? Hospital course, mention meds given and route, prescriptions, significant lab abnormalities, going to OR and other pertinent info. @ -Admitted. 34-year-old male with suicidal ideation states he plan to jump in front of a car however called 911 before he went through with the plan. Denies homicidal ideation. No medical complaints. Patient was medically cleared to be seen by [facility] at this time. I spoke with Rhonda from [facility] who recommends admission for inpatient psychiatric treatment. I agree with this plan. Case was discussed with my ED attending Dr. Clark. Undiagnosed new problem with uncertain prognosis? @ -No Drug Therapy requiring intensive monitoring for toxicity (Heparin, Nitro, Insulin, Cardizem)? @ -No Were any procedures done? @ -No Diagnosis/symptom? @ -Suicidal intent Acute, or Chronic, or Acute on Chronic? @ -Acute Uncomplicated (without systemic symptoms) or Complicated (systemic symptoms)? @ -Uncomplicated Side effects of treatment? @ -No Exacerbation, Progression, or Severe Exacerbation? @ -No Poses a threat to life or bodily function? How? (Chest pain, USA, CA, pneumonia, PE, COPD, DKA, ARF, appy, cholecystitis, CVA, Diverticulitis, Homicidal, Suicidal, threat to staff... and all critical care pts) @ -Yes, suicidal - Lab Data Lab Results 12/08/24 12/08/24 Range/Units 17:00 17:00 Urine Opiates Screen Not Detected (NotDetected) Ur Oxycodone Screen Not Detected (NotDetected) Urine Methadone Screen Not Detected (NotDetected) Ur Barbiturates Screen Detected H (NotDetected) U Tricyclic Antidepress Not Detected (NotDetected) Ur Phencyclidine Scrn Not Detected (NotDetected) Ur Amphetamines Screen Not Detected (NotDetected) U Methamphetamines Scrn Not Detected (NotDetected) U Benzodiazepines Scrn Not Detected (NotDetected) Urine Cocaine Screen Not Detected (NotDetected) U Marijuana (THC) Screen Not Detected (NotDetected) SARS-CoV-2 (PCR) Not Detected (Not Detectd) Disposition Clinical Impression: Suicidal intent Disposition: ADMITTED IP TO THIS [facility] Referrals: Ana Maria Samson MD [Primary Care Provider] - 1-2 days Time of Disposition: 18:15
[2024-12-08 17:26] LABS: Amphetamine Screen,Urine Not Detected (NotDetected); Barbiturate Screen,Urine Detected (NotDetected); Benzodiazepines Screen,Urine Not Detected (NotDetected); Cocaine Screen,Urine Not Detected (NotDetected); Methadone Screen, Urine Not Detected (NotDetected); Opiate Screen,Urine Not Detected (NotDetected); Oxycodone Screen, Urine Not Detected (NotDetected); Phencyclidine Screen,Urine Not Detected (NotDetected); Tricyclic Antidepressant,Urine Not Detected (NotDetected); Urn Cannabinoid Scrn Not Detected (NotDetected)
[2024-12-08] MEDS ORDERED: MAG HYDROX/AL HYDROX/SIMETH 355 ML BOTTLE PO PRN (18:30)
[2024-12-08] MEDS ORDERED: MAGNESIUM HYDROXIDE 2,400 MG/30 ML CUP PO PRN (18:30)
[2024-12-08] MEDS ORDERED: OLANZapine 5 MG TAB PO PRN (18:32)
[2024-12-08] MEDS ORDERED: OLANZapine 10 MG VIAL IM PRN (18:32)
[2024-12-08] MEDS ORDERED: hydrOXYzine HCL 50 MG/ML 1 ML VIAL IM PRN (18:33)
[2024-12-08] MEDS ORDERED: hydrOXYzine pamoate 25 MG CAP PO PRN (18:33)
[2024-12-08] MEDS ORDERED: HALOPERIDOL LACTATE 5 MG/ML 1 ML VIAL IM PRN (19:29)
[2024-12-08] MEDS ORDERED: haloperidoL 5 MG TAB PO PRN (19:29)
[2024-12-08] MEDS ORDERED: LORazepam 2 MG/ML INJ IM PRN (19:29)
[2024-12-08] MEDS: MONTELUKAST 10 MG TAB PO SCH (20:26)
[2024-12-08] MEDS: ZONISAMIDE 100 MG CAP PO SCH (20:26)
[2024-12-08] MEDS: traZODone HCL 100 MG TAB PO SCH (20:26)
[2024-12-08] MEDS: carBAMazepine 200 MG TAB PO SCH (20:26)
[2024-12-08] MEDS: lamoTRIgine 100 MG TAB PO SCH (20:26)
[2024-12-08] MEDS: Cariprazine Hcl [Vraylar] 4.5 MG Capsule PO SCH (22:29)
[2024-12-09 03:22] LABS: Appearance,Urine Clear (Clear); Bilirubin,Urine Negative (Negative); Blood,Urine Negative (Negative); Color,Urine Colorless; Glucose,Urine (UA) Negative (Negative); Ketones,Urine Negative (Negative); Leukocyte Esterase,Urine Negative (Negative); Nitrite,Urine Negative (Negative); Protein,Urine Negative (Negative); Specific Gravity,Urine 1.012 (1.001-1.035); Urobilinogen,Urine <2.0 mg/dL (<2.0)
[2024-12-09] MEDS: IBUPROFEN 600 MG TAB PO PRN (05:09)
[2024-12-09] MEDS: PANTOPRAZOLE 40 MG TABLET PO SCH (08:44)
[2024-12-09] MEDS: SERTRALINE 100 MG TAB PO SCH (08:44)
[2024-12-09] MEDS: NICOTINE 14MG/24HR PATCH TRANSDERM SCH (08:46)
[2024-12-09 10:00] LABS: Basophils % (A) 0 %; Eosinophils # (A) 0.1 k/uL (0-0.7); Eosinophils % (A) 1 %; HCT 48.3 % (39.0-53.0); HGB 15.3 gm/dL (13.0-17.5); Lymphocytes # (A) 1.7 k/uL (1.0-4.8); Lymphocytes % (A) 36 %; MCH 30.7 pg (25.0-35.0); MCHC 31.8 g/dL (31.0-37.0); MCV 96.6 fL (80.0-100.0); Mean Platelet Volume 6.8; Monocytes # (A) 0.2 k/uL (0-1.0); Monocytes % (A) 5 %; Neutrophils # (A) 2.7 k/uL (1.3-7.7); Neutrophils % (A) 57 %; Platelet Count 218 k/uL (150-450); RDW 12.5 % (11.5-15.5); WBC 4.7 k/uL (3.8-10.6)
[2024-12-09 10:31] LABS: ALT 14 U/L (4-49); AST 19 U/L (17-59); African American GFR (CKD) >90 (>60 ml/min/1.73 sqM); Albumin 4.9 g/dL (3.5-5.0); Alkaline Phosphatase 98 U/L (38-126); Anion Gap 11 mmol/L; Blood Urea Nitrogen 11 mg/dL (9-20); Calcium 9.6 mg/dL (8.4-10.2); Carbon Dioxide 23 mmol/L (22-30); Chloride 107 mmol/L (98-107); Glucose 89 mg/dL (74-99); Non-African American GFR(CKD) >90 (>60 ml/min/1.73 sqM); Potassium 4.3 mmol/L (3.5-5.1); Sodium 141 mmol/L (137-145); Total Bilirubin 0.6 mg/dL (0.2-1.3); Total Protein 8.1 g/dL (6.3-8.2)
[2024-12-09] MEDS: LIDOCAINE 4% PATCH TOPICAL SCH (12:38)
--- NOTE | 2024-12-09 13:28 | P.HP ---
Psychiatric H&P - . H&P Date: 12/09/24 History & Physical: Allergies Allergy/AdvReac Type Severity Reaction Status Date / Time No Known Allergies Allergy Verified 12/08/24 19:10 Vital Signs Temp 98 F 12/09/24 10:19 Pulse 95 12/09/24 10:19 Resp 15 12/09/24 10:19 BP 112/68 12/09/24 10:19 Pulse Ox 99 12/09/24 10:19 FiO2 Intake & Output 12/08/24 12/09/24 12/09/24 18:59 06:59 18:59 Weight 83.915 kg 83.915 kg Laboratory Last Values WBC 4.7 k/uL (3.8-10.6) 12/09/24 09:34 RBC 5.00 m/uL (4.30-5.90) 12/09/24 09:34 Hgb 15.3 gm/dL (13.0-17.5) 12/09/24 09:34 Hct 48.3 % (39.0-53.0) 12/09/24 09:34 MCV 96.6 fL (80.0-100.0) 12/09/24 09:34 MCH 30.7 pg (25.0-35.0) 12/09/24 09:34 MCHC 31.8 g/dL (31.0-37.0) 12/09/24 09:34 RDW 12.5 % (11.5-15.5) 12/09/24 09:34 Plt Count 218 k/uL (150-450) 12/09/24 09:34 MPV 6.8 12/09/24 09:34 Neutrophils % 57 % 12/09/24 09:34 Lymphocytes % 36 % 12/09/24 09:34 Monocytes % 5 % 12/09/24 09:34 Eosinophils % 1 % 12/09/24 09:34 Basophils % 0 % 12/09/24 09:34 Neutrophils # 2.7 k/uL (1.3-7.7) 12/09/24 09:34 Lymphocytes # 1.7 k/uL (1.0-4.8) 12/09/24 09:34 Monocytes # 0.2 k/uL (0-1.0) 12/09/24 09:34 Eosinophils # 0.1 k/uL (0-0.7) 12/09/24 09:34 Basophils # 0.0 k/uL (0-0.2) 12/09/24 09:34 Sodium 141 mmol/L (137-145) 12/09/24 09:34 Potassium 4.3 mmol/L (3.5-5.1) 12/09/24 09:34 Chloride 107 mmol/L (98-107) 12/09/24 09:34 Carbon Dioxide 23 mmol/L (22-30) 12/09/24 09:34 Anion Gap 11 mmol/L 12/09/24 09:34 BUN 11 mg/dL (9-20) 12/09/24 09:34 Creatinine 1.04 mg/dL (0.66-1.25) 12/09/24 09:34 Est GFR (CKD-EPI)AfAm >90 (>60 ml/min/1.73 sqM) 12/09/24 09:34 Est GFR (CKD-EPI)NonAf >90 (>60 ml/min/1.73 sqM) 12/09/24 09:34 Glucose 89 mg/dL (74-99) 12/09/24 09:34 Calcium 9.6 mg/dL (8.4-10.2) 12/09/24 09:34 Total Bilirubin 0.6 mg/dL (0.2-1.3) 12/09/24 09:34 AST 19 U/L (17-59) 12/09/24 09:34 ALT 14 U/L (4-49) 12/09/24 09:34 Alkaline Phosphatase 98 U/L (38-126) 12/09/24 09:34 Total Protein 8.1 g/dL (6.3-8.2) 12/09/24 09:34 Albumin 4.9 g/dL (3.5-5.0) 12/09/24 09:34 TSH 1.420 mIU/L (0.465-4.680) 12/09/24 09:34 Urine Color Colorless 12/08/24 17:00 Urine Appearance Clear (Clear) 12/08/24 17:00 Urine pH 6.0 (5.0-8.0) 12/08/24 17:00 Ur Specific [place] 1.012 (1.001-1.035) 12/08/24 17:00 Urine Protein Negative (Negative) 12/08/24 17:00 Urine Glucose (UA) Negative (Negative) 12/08/24 17:00 Urine Ketones Negative (Negative) 12/08/24 17:00 Urine Blood Negative (Negative) 12/08/24 17:00 Urine Nitrite Negative (Negative) 12/08/24 17:00 Urine Bilirubin Negative (Negative) 12/08/24 17:00 Urine Urobilinogen <2.0 mg/dL (<2.0) 12/08/24 17:00 Ur Leukocyte Esterase Negative (Negative) 12/08/24 17:00 Urine Opiates Screen Not Detected (NotDetected) 12/08/24 17:00 Ur Oxycodone Screen Not Detected (NotDetected) 12/08/24 17:00 Urine Methadone Screen Not Detected (NotDetected) 12/08/24 17:00 Ur Barbiturates Screen Detected (NotDetected) H 12/08/24 17:00 U Tricyclic Antidepress Not Detected (NotDetected) 12/08/24 17:00 Ur Phencyclidine Scrn Not Detected (NotDetected) 12/08/24 17:00 Ur Amphetamines Screen Not Detected (NotDetected) 12/08/24 17:00 U Methamphetamines Scrn Not Detected (NotDetected) 12/08/24 17:00 U Benzodiazepines Scrn Not Detected (NotDetected) 12/08/24 17:00 Urine Cocaine Screen Not Detected (NotDetected) 12/08/24 17:00 U Marijuana (THC) Screen Not Detected (NotDetected) 12/08/24 17:00 SARS-CoV-2 (PCR) Not Detected (Not Detectd) 12/08/24 17:00 12/09/24 13:17 IDENTIFYING DATA: Patient is a 34-year-old male, unemployed and living with and son CHIEF COMPLAINT: SI HPI: Patient presented to the hospital with SI with a plan. Per [facility], "Pt came in on a petition by police for making suicidal comments to jump into traffic. Upon assessment pt is flat. Pt admits to SI and states if he left he would jump into traffic to . He feels helpless, hopeless. Feels his is controlling and they don't get along and, "I 'd be better off ." Pt denies having any jessica or hobbies. Pt states his medications are not working. Denies HI, halucinations, or delusions. Pt reports sleeping often and lack of motivation. Unable to safety plan with pt. Pt states his last seizure was 10/08/24. Pt unabel to verify all medication, Sossee is verifying medications." Patient seen and evaluated on the unit and was agreeable with speaking to service writer in office. He states he has been having issues with his of 11 years describing her as a controlling b. He states his controls every aspect of his life from when he does to where he can work and that this is impacting his mental health. He mentions a few days ago jumping out of a vehicle that came to a stop in order to escape his . He states yesterday argument with his and he himself ended up calling the police and told them that if they did not come that he was going to kill himself. He states now that he is here his suicidal ideations have lessened in intensity however they are still there. He states he spoke to his and asked for divorce stating he does not want to return there however also states he does not have any other support network where he can stay at as an alternative. He reports a long-term history of seizures since he was 18 mo nths old, last seizure being back in September. He claims he has been adherent with his both seizure and psychotropic medications. He reports mood swings, appetite changes, anhedonia but denied any sleep difficulties or concentration issues. Jessica screening was negative. Patient denies any suicidal or homicidal ideations intent or plan. At this time patient denies any auditory or visual hallucinations. Patient denies any flight of ideas racing thoughts and increased in goal directed behavior. Patient admits to using no substances. PAST PSYCHIATRIC HISTORY: Patient has a history of MDD, borderline personality disorder. Patient is currently prescribed Zoloft 200 mg daily, trazodone 100 mg at bedtime, Vraylar 4.5 mg at bedtime. Patient states he has tried Prozac previously. Patient reports at least 37 previous inpatient hospitalizations most recent being September 2024 at [facility]. He follows with [facility]. Patient reports 1 suicide attempt most recent being back in September 2024. PMH: as per ER note ALLERGIES: as per EMR SUBSTANCE USE HISTORY: Denies FAMILY PSYCHIATRIC/SUBSTANCE USE HISTORY: Denies SOCIAL HISTORY: Patient is and has 1 son, currently living with and son. 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 MENTAL STATUS EXAM: General Appearance: Patient appears to be stated age is alert, directable, and attempts to cooperate. Patient appears to have fair hygiene and grooming. Behavior: Patient is seated without any agitated behavior. Speech: Patient's speech is fluent and nonpressured. Low volume Mood/Affect: Patient reports their mood is depressed, affect is congruent and constricted. Suicidality/Homicidality: Patient denies having any homicidal ideation intent or plan. He reports suicidal ideations lessening in intensity Perceptions: Patient denies any visual hallucinations and denies any auditory hallucinations Though content/process: There is no evidence of any delusional thought content and thought process is linear and goal-directed. Memory and concentration: AOX3, grossly intact for the purposes of this session. Can spell "WORLD" backwards Judgment and insight: Poor STRENGTHS/WEAKNESSES: strength is that patient is resilient. Weakness is that patient has poor judgment, relationship issues and is impulsive INTELLECT: Below average IMPRESSIONS: Adjustment disorder with depressed mood Borderline personality disorder PLAN: -Patient is admitted under voluntary status to [facility]HU for stabilization of psychiatric symptoms and safety. Patient has signed adult voluntary form and medication consent and is placed in patient's chart. -Medications : Cross titrate Zoloft with Effexor, will decrease Zoloft to 50 mg daily tomorrow and start Effexor at 37.5 mg daily with a plan to discontinue Zoloft and increase Effexor monotherapy. Increase trazodone to 150 mg at bedtime for insomnia. Patient to resume Vraylar upon discharge as pharmacy does not carry this medication in stock, patient encouraged to reach out to regarding bringing in his home dose -Ativan and Haldol PRN for agitation/aggression -Patient was informed of the risks, benefits and side effects of the medication and patient verbally consented to taking the medications. Patient signed med consent form and was placed in chart. -Internal Medicine consult to perform medical evaluation and physical. -NRT -not needed as patient does not smoke -SW on board for discharge planning. Encourage patient to participate in groups to work on coping skills.
--- NOTE | 2024-12-09 15:04 | P.CONS ---
History of Present Illness - Reason for Consult Consult date: 12/09/24 - History of Present Illness This is a pleasant 34-year-old male with medical history significant for gastroesophageal reflux disease, seizure disorder, epilepsy, multiple surgeries, ADHD, anxiety/bipolar/depression. Patient has some intellectual disability and history of cluster B disorder. Patient is a never smoker. Patient reports having at home with his and his 9-year-old son. Patient has a very flat affect presents to the hospital with complaints of worsening depression and suicidal ideations. He was brought in on a petition by the police for SI with intent and plan wanting to jump into traffic. He does state that today his thoughts of suicide are lessening. He reports living at home with and 9 year old son. He does not work. He states he has so-so support from his . His medications are being adjusted by psychiatry. He does have prior suicide attempt in September of 2024. His last seizure was in September of 2024. His main complaint today is left lower back pain with focal tenderness in thoracic spine. We will x-ray this he has a lidocaine patch in place and states that the pain is not any better. He states that he has to sleep with a pillow under the back for support. He does not recall any extraneous activity or injury that would have led to this pain. We will do an x-ray of the mid back. His blood work is unremarkable. REVIEW OF SYSTEMS: CONSTITUTIONAL: No fever, no malaise, no fatigue. HEENT: No recent visual problems or hearing problems. Denied any sore throat. CARDIOVASCULAR: No chest pain, orthopnea, PND, no palpitations, no syncope. PULMONARY: No shortness of breath, no cough, no hemoptysis. GASTROINTESTINAL: No diarrhea, no nausea, no vomiting, no abdominal pain. NEUROLOGICAL: No headaches, no weakness, no numbness. HEMATOLOGICAL: Denies any bleeding or petechiae. GENITOURINARY: Denies any burning micturition, frequency, or urgency. MUSCULOSKELETAL/RHEUMATOLOGICAL: Denies any joint pain, swelling ENDOCRINE: Denies any polyuria or polydipsia. The rest of the 14-point review of systems is negative. PHYSICAL EXAMINATION: GENERAL: The patient is alert and oriented x3, not in any acute distress. Well developed, well nourished. HEENT: Pupils are round and equally reacting to light. EOMI. No scleral icterus. No conjunctival pallor. Normocephalic, atraumatic. No pharyngeal erythema. No thyromegaly. CARDIOVASCULAR: S1 and S2 present. No murmurs, rubs, or gallops. PULMONARY: Chest is clear to auscultation, no wheezing or crackles. ABDOMEN: Soft, nontender, nondistended, normoactive bowel sounds. No palpable organomegaly. MUSCULOSKELETAL: No joint swelling or deformity. EXTREMITIES: No cyanosis, clubbing, or pedal edema. NEUROLOGICAL: Gross neurological examination did not reveal any focal deficits. SKIN: No rashes. Assessment and Plan Depression and suicideal ideations History of Cluster B disorder Bipolar disorder Seizure/epilepsy disorder Gastroesophageal reflux disorder Intellectual disability Mid back pain GI prophylaxis Full Code Plan Thoracolumbar xray ordered Continue lidocaine patch and will await xrays for further medication adjustments Psychiatry adjusting medications. Thank you for this consultation we will continue to follow along as needed The impression and plan of care has been dictated by Celi Tate, Nurse Practitioner as directed. Dr. Josselin MD I have performed a history and physical examination and medical decision making of this patient, discussed the same with the dictator, and agree with the dictators assessment and plan as written, documented as a scribe. Based on total visit time, I have performed more than 50% of this visit. Past Medical History Past Medical History: GERD/Reflux, Seizure Disorder, Skin Disorder Additional Past Medical History / Comment(s): has history of epilepsy, hx grand mal seizures since childhood, migraines, acne History of Any Multi-Drug Resistant Organisms: None Reported Past Surgical History: Adenoidectomy, Appendectomy, Cholecystectomy, Tonsillectomy Additional Past Surgical History / Comment(s): oral surgery. I & D CYST ON BACK 08/19/22, egd Past Anesthesia/Blood Transfusion Reactions: Previous Problems w/ Anesthesia Additional Past Anesthesia/Blood Transfusion Reaction / Comm: SLOW TO WAKE FROM ANESTHESIA", no blood transfusion Past Psychological History: ADD/ADHD, Anxiety, Bipolar, Depression Additional Psychological History / Comment(s): per pt-he was in special education classes thru out school(has some intellectual disabilty), speech impediment. able to read and write fine. hx cluster b disorder Smoking Status: Never smoker Past Alcohol Use History: Rare Additional Past Alcohol Use History / Comment(s): Denies any alcohol intake since he is on probation til April 2019 Past Drug Use History: None Reported Additional Drug Use History / Comment(s): Denies any illicit drugs or any marijuana use - Past Family History Mother Family Medical History: Cancer Additional Family Medical History / Comment(s): breast cancer Medications and Allergies Home Medications Medication Instructions Recorded Confirmed Type lamoTRIgine [LaMICtal] 200 mg PO BID #0 06/28/20 12/08/24 Rx carBAMazepine [TEGretol] 200 mg PO BID 10/10/20 12/08/24 History PHENobarbitaL [Luminal] 129.6 mg PO HS 08/28/22 12/08/24 History Zonisamide [Zonegran] 400 mg PO HS 08/28/22 12/08/24 History Sertraline [Zoloft] 200 mg PO DAILY 30 Days #60 tab 03/30/24 12/08/24 Rx traZODone HCL [Desyrel] 100 mg PO HS 30 Days #30 tab 03/30/24 12/08/24 Rx LORazepam [Ativan] 0.5 mg PO HS 09/16/24 12/08/24 History Montelukast [Singulair] 10 mg PO HS 09/16/24 12/08/24 History Cariprazine HCl [Vraylar] 4.5 mg PO HS 12/08/24 12/08/24 History Ibuprofen [Motrin] 800 mg PO Q8H PRN 12/08/24 12/08/24 History Omeprazole [PriLOSEC] 20 mg PO BID 12/08/24 12/08/24 History Allergies Allergy/AdvReac Type Severity Reaction Status Date / Time No Known Allergies Allergy Verified 12/08/24 19:10 Physical Exam Vitals: Vital Signs Temp Pulse Pulse Resp BP BP Pulse Ox 12/08/24 21:21 97.6 F 75 16 120/71 98 12/08/24 19:05 98.4 F 70 20 118/68 12/08/24 16:36 98 F 98 18 134/78 99 Intake and Output 12/08/24 12/09/24 12/09/24 22:59 06:59 14:59 Other: Weight 83.915 kg Results CBC & Chem 7: 12/09/24 09:34 12/09/24 09:34 Labs: Abnormal Lab Results - Last 24 Hours (Table) 12/08/24 Range/Units 17:00 Ur Barbiturates Screen Detected H (NotDetected) Assessment and Plan Time with Patient: Less than 30
--- NOTE | 2024-12-09 17:42 | XR ---
EXAMINATION TYPE: XR lumbar spine 2 or 3V DATE OF EXAM: 12/09/2024 CLINICAL INDICATION: Male, 34 years old with history of Mid back pain with focal tenderness, pain TECHNIQUE: Frontal and lateral images of the lumbar spine are obtained. COMPARISON: Lumbar spine x-rays 2016 FINDINGS: There are 5 lumbar type vertebral bodies redemonstrated. The lumbar spine redemonstrates subtle grade 1 anterolisthesis L4 on L5 with minimal disc space narrowing at this level again seen. V ertebral body heights and disk space heights otherwise are within normal limits. There are new Cholec ystectomy clips present. IMPRESSION: As above. [facility], , 12/09/2024 5:40 PM
--- NOTE | 2024-12-09 17:43 | XR ---
EXAMINATION TYPE: XR thoracic spine 2V DATE OF EXAM: 12/09/2024 CLINICAL INDICATION: Male, 34 years old with history of Mid back pain with focal tenderness, pain TECHNIQUE: Frontal, lateral, and swimmer's view of thoracic spine are obtained. COMPARISON: Thoracic spine x-ray 2014 FINDINGS: Thoracic spine show scoliotic curvature positioning upper aspect without evidence of acute fracture or dislocation. Vertebral body heights and disc space heights remain preserved. Visualized ribs are intact bilaterally. Cholecystectomy clips are redemonstrated. IMPRESSION: As above. [facility], , 12/09/2024 5:41 PM
[2024-12-09] MEDS: IBUPROFEN 800 MG TAB PO PRN (20:11)
[2024-12-09] MEDS: traZODone HCL 50 MG TAB PO SCH (20:12)
[2024-12-10 02:50] LABS: Carbamazepine (Tegretol) 6.1 UG/ML (4.0-12.0)
[2024-12-10] MEDS: SERTRALINE 50 MG TAB PO SCH (08:21)
[2024-12-10] MEDS: VENLAFAXINE HCL ER 37.5 MG CAP PO SCH (08:21)
--- NOTE | 2024-12-10 12:19 | P.PN ---
Progress Note - Text Progress Note Date: 12/10/24 Interval History: Patient was seen in group and was directable and agreeable to speak with publicity writer in the office. He states feeling a little bit better however continues to report high depression, rating this an 8/10 today. He reports suicidal ideations however denied any intent to act on these thoughts. He continues to report back pain and did receive x-ray yesterday. He was encouraged to continue to use the lidocaine patch and as needed medications. He states speaking to his and she was tearful and wants him to return home. He wishes to be discharged before his outpatient appointment next . He reports improvement in sleep however did mention his back pain limiting this. At this time patient denies any homicidal ideations, intent or plan. Patient denies any auditory, visual hallucinations and denies any paranoia or delusions. Patient denies any side effects from the medications and has been compliant with meds. Mental Status Exam: General Appearance: Patient appears to be stated age is alert, directable, and cooperative. He wears glasses Behavior: Patient is calmly seated without any agitated behavior. Speech: Patient's speech is fluent and nonpressured. Mood/Affect: Mood is improving mildly, affect is congruent and constricted. Suicidality/Homicidality: Patient denies having any homicidal ideation intent or plan. Patient does report suicidal ideations, no intent Perceptions: Patient denies any visual hallucinations and denies any auditory hallucinations Though content/process: There is no evidence of any delusional thought content and thought process is linear. Memory and concentration: AOX3, grossly intact for the purposes of this session Judgment and insight: Improving mildly Assessment Adjustment disorder with depressed mood Borderline personality disorder Plan: -Patient continues to meet criteria for inpatient psychiatric admission for symptom stabilization and safety. Patient has signed adult voluntary form and medication consent and was placed in patient's chart. -Medications: Discontinue Zoloft 50 mg daily today and increase Effexor XR to 75 mg daily tomorrow for depression, continue trazodone 150 mg at bedtime for insomnia, Vraylar 4.5 mg at bedtime for mood stabilization -When necessary Ativan and Haldol for agitation/aggression. -Labs: Reviewed -SW on board for discharge planning. Encouraged the patient to participate in milieu. Anticipate discharge early-mid next week back home with
[2024-12-10] MEDS: Cariprazine Hcl [Vraylar] 4.5 MG Capsule PO SCH (20:36)
[2024-12-11] MEDS: VENLAFAXINE HCL ER 75 MG CAP PO SCH (07:56)
[2024-12-11] MEDS: LORazepam 1 MG TAB PO PRN (08:41)
--- NOTE | 2024-12-11 15:33 | P.PN ---
Progress Note - Text Interval history: Patient was seen in the hallways and was directable and agreeable to speak with investment underwriter. He described his mood as "sad" today. He had recently talked to her son on the phone and finds that hearing his voice causes him to reflect on how he wishes things were. He explained, "I should be a stable father". He notes that part of the circumstances leading up to admission was related to conflict between his and himself as they were working on some projects with her landlord. He felt that she did not trust his ability to manage the projects and thus this contributed to his anger and ultimately becoming more withdrawn and then suicidal. He denies experiencing suicidal ideation, intent or plan at this time. He has not noticed any side effects secondary to transitioning his medication to Effexor. He does not feel he has experienced any benefits from this new medication yet. At this time patient denies any homicidal ideations intent or plan. Denies any auditory or visual hallucinations. Patient has been compliant with meds. He is experiencing soreness in his back which is a chronic issue, but he is coping with the discomfort. Mental status exam: General Appearance: Patient appears to be stated age is alert, directable, and cooperative. Behavior: No agitated behavior. Patient is calm and directable Speech: Patient's speech is fluent and nonpressured. Mood/Affect: Mood is "sad", affect is congruent and constricted. Affect brightens as the visit concludes. Suicidality/Homicidality: Patient denies having any suicidal or homicidal ideation intent or plan. Perceptions: Patient denies any auditory or visual hallucinations. Though content/process: There is no evidence of any delusional thought content and thought process is linear and goal-directed. Memory and concentration: AOX3, grossly intact for the purposes of this session Judgment and insight: improving mildly Assessment/Plan: Continue with current diagnoses: Adjustment disorder with depressed mood, borderline personality disorder Patient continues to meet criteria for inpatient psychiatric admission for symptom stabilization and safety. Patient will be maintained on current psychotropic medication regimen. - Effexor 75 mg daily for mood - Vraylar 4.5 mg daily for mood stability - Trazodone 150 mg at bedtime for insomnia - Also on Tegretol, Lamictal, Zonisamide, and Phenobarbital for seizure disorder Monitor for medication compliance and for any psychotropic medication side effects. Will continue to monitor ongoing response to treatment. Encouraged participation in milieu.
[2024-12-11] MEDS: ACETAMINOPHEN TAB 325 MG TAB PO PRN (19:50)
--- NOTE | 2024-12-12 12:46 | P.PN ---
Progress Note - Text Interval history: Patient was seen in the hallways and was directable and agreeable to speak with service writer advisor. Describes his mood as "cheerful". He was seen smiling and engaging in the [place] with other patients. He did feel a little sad last evening following a conversation with his son in which his son asked when he was coming home, but he was able to navigate the discomfort of that moment. Continues to struggle with sleep secondary to back pain. He explained that he is engaged in therapy on outpatient basis as well as marital therapy. At this time patient denies any suicidal or homicidal ideations, intent, or plan. Denies any auditory or visual hallucinations. Patient has been compliant with meds and is interested in increasing the Effexor dose. Mental status exam: General Appearance: Patient appears to be stated age is alert, directable, and cooperative. Behavior: No agitated behavior. Patient is calm and directable Speech: Patient's speech is fluent and nonpressured. Mood/Affect: Mood is "cheerful", affect is congruent and euthymic overall. Suicidality/Homicidality: Patient denies having any suicidal or homicidal ideation intent or plan. Perceptions: Patient denies any auditory or visual hallucinations. Though content/process: There is no evidence of any delusional thought content and thought process is linear and goal-directed. Memory and concentration: AOX3, grossly intact for the purposes of this session Judgment and insight: improving mildly Assessment/Plan: Continue with current diagnoses: Adjustment disorder with depressed mood, borderline personality disorder Patient continues to meet criteria for inpatient psychiatric admission for symptom stabilization and safety. Patient will be maintained on current psychotropic medication regimen. - Increase Effexor to 150 mg daily for mood, tomorrow - Vraylar 4.5 mg daily for mood stability - Trazodone 150 mg at bedtime for insomnia - Also on Tegretol, Lamictal, Zonisamide, and Phenobarbital for seizure disorder Monitor for medication compliance and for any psychotropic medication side effects. Will continue to monitor ongoing response to treatment. Encouraged participation in milieu.
[2024-12-13] MEDS: VENLAFAXINE HCL ER 150 MG CAP PO SCH (09:05)
--- NOTE | 2024-12-13 16:24 | P.PN ---
Progress Note - Text Progress Note Date: 12/13/24 Progress Note - Text Subjective: The Patient noted that he came to the hospital for depression and suicidal thoughts. The patient noted that his depression is improving. He denied any suicidal or homicidal thoughts. As per patient he has not had these thought for past 1-2 days. The patient had no other complaints. He denied any side effects from the medications. The patient reported compliance with medications. The patient intents to follow-up with his therapist after discharge. Mental status exam: Alert ,attentive and oriented times three. Pleasant and cooperative. Speech: Low toned,under productive. Normal in quality. Mood: Depressed but improved Affect: Blunted. Suicidal ideation:None at this time. Homicidal ideation:None. Perceptions: No auditory or visual hallucinations. Though content: No paranoia or any other delusional thinking noted. Thought process: Normal. Cognition: Intact Judgment and insight: fair. Improved from before. Assessment/Plan: Diagnosis: Adjustment disorder with depressed mood, borderline personality disorder Plan: Patient continues to meet criteria for inpatient psychiatric admission for symptom stabilization and safety. Continue current medications. Monitor MS and side effects of medications and adjust medications as needed. Supportive Psychotherapy [facility] milieu The patient to continue follow-up with his Neurologist.
--- NOTE | 2024-12-14 10:40 | P.PN ---
Progress Note - Text Progress Note Date: 12/14/24 Progress Note - Text Subjective: The Patient noted that he came to the hospital for depression and suicidal thoughts. The patient noted that he is not feeling depressed anymore. He denied any suicidal or homicidal thoughts. He appeared in good spirits. He wants to be discharged tomorrow. He talked to his , who wants him to come home. The patient wants to be with his family. He misses his son. The patient had no other complaints. He denied any side effects from the medications. The patient reported compliance with medications. The patient intents to follow-up with his therapist after discharge. Mental status exam: Alert ,attentive and oriented times three. Pleasant and cooperative. Speech: Normal in toned,quality and quantity. Mood: "I am feeling good". Affect: consistent with mood. Suicidal ideation:None at this time. Homicidal ideation:None. Perceptions: No auditory or visual hallucinations. Though content: No paranoia or any other delusional thinking noted. Thought process: Normal. Cognition: Intact Judgment and insight: Fair Assessment/Plan: Diagnosis: Adjustment disorder with depressed mood, borderline personality disorder Plan: Patient continues to meet criteria for inpatient psychiatric admission for symptom stabilization and safety. Continue current medications. Monitor MS and side effects of medications and adjust medications as needed. Supportive Psychotherapy [facility] milieu The patient to continue follow-up with his Neurologist after discharge.
[2024-12-15 08:18] VITALS: BP 113/75; PULSE 74; RESP 18; TEMP 97.5
--- NOTE | 2024-12-15 17:33 | P.DS ---
Providers Date of admission: 12/08/24 18:29 Attending physician: Cally Ivey MD Consults: 12/08/24 18:30 Consult Physician Routine Consulting Provider: Luciano Carson Consult Reason/Comments: H&P Do you want consulting provider notified?: Yes Primary care physician: Ana Maria Chapin - Discharge Diagnosis(es) (1) Adjustment disorder with depressed mood Status: Acute (2) Borderline personality disorder Status: Chronic Priority: High Hospital Course: Admission HPI: Admission note was completed by Dr. Ivey "Patient presented to the hospital with SI with a plan. Per EPS, "Pt came in on a petition by police for making suicidal comments to jump into traffic. Upon assessment pt is flat. Pt admits to SI and states if he left he would jump into traffic to . He feels helpless, hopeless. Feels his is controlling and they don't get along and, "I 'd be better off ." Pt denies having any jessica or hobbies. Pt states his medications are not working. Denies HI, halucinations, or delusions. Pt reports sleeping often and lack of motivation. Unable to safety plan with pt. Pt states his last seizure was 10/08/24. Pt unabel to verify all medication, [facility] is verifying medications." Patient seen and evaluated on the unit and was agreeable with speaking to production underwriter in office. He states he has been having issues with his of 11 years describing her as a controlling b. He states his controls every aspect of his life from when he does to where he can work and that this is impacting his mental health. He mentions a few days ago jumping out of a vehicle that came to a stop in order to escape his . He states yesterday argument with his and he himself ended up calling the police and told them that if they did not come that he was going to kill himself. He states now that he is here his suicidal ideations have lessened in intensity however they are still there. He states he spoke to his and asked for divorce stating he does not want to return there however also states he does not have any other support network where he can stay at as an alternative. He reports a long-term history of seizures since he was 18 months old, last seizure being back in September. He claims he has been adherent with his both seizure and psychotropic medications. He reports mood swings, appetite changes, anhedonia but denied any sleep difficulties or concentration issues. Jessica screening was negative. Patient denies any suicidal or homicidal ideations intent or plan. At this time patient denies any auditory or visual hallucinations. Patient denies any flight of ideas racing thoughts and increased in goal directed behavior. Patient admits to using no substances." Hospital course: Upon admission to the unit patient was directable and agreeable to commence treatment and signed adult voluntary form. Patient was initially depressed however with time and treatment patient got along well with other patients on the unit and followed unit protocol. Patient was compliant with the medications and denied any side effects throughout hospital course. Patient was cross- titrated from Zoloft 200 mg daily to Effexor XR 150 mg daily and trazodone 150 mg at bedtime. He was maintained on Vraylar 4.5 mg daily. Patient spoke of his stressors and engaged in therapy both group/activity therapy. Patient was also seen by medical team for history and physical exam. XR Thoracic spine demonstrated no fractures or dislocations. XR lumbar spone demonstrated subtle grade 1 anterolisthesis L4 on L5 with minimal disc space narrowing. Patient is recommended to follow-up with PCP. Throughout the course of the hospitalization patient gradually improved with regards to mood, anxiety, sleep and returned back to their baseline level of functioning. He has became more future oriented. On the day of discharge patient denied any suicidal or homicidal ideation intent or plan denied any auditory or visual hallucinations. Patient endorsed wanting to live for his and son. The patient denied any access to guns or weapons. Patient denied any paranoia and did not endorse any delusions. A family meeting was held on the day of discharge with his over the phone and she expressed that she would like for his actions to be consistent with his wishes to be healthy, stable, and close to his family. She was agreeable with having him return home and did not express any safety concerns. Questions were answered and safety plan was discussed. Patient was provided psychoeducation on DBT and given resources to pursue this outpatient. Patient does not have a significant history of substance abuse and was counseled on abstaining from all substances including alcohol and marijuana. Patient was also counseled on the medications and need for regular compliance and was encouraged to follow-up with their outpatient appointment for mental health and also for primary care. Mental status exam: General Appearance: Patient appears to be stated age is alert, pleasant, and cooperative. Patient is in no acute distress and has improved hygiene and grooming Behavior: Patient is calmly seated without any agitated behavior. Speech: Patient's speech is fluent and nonpressured. Mood/Affect: Patient reports their mood is "good", affect is constricted and euthymic. Suicidality/Homicidality: Patient denies having any suicidal or homicidal ideation intent or plan. Perceptions: Patient denies any auditory or visual hallucinations. Though content/process: There is no evidence of any delusional thought content and thought process is linear and goal-directed. More future oriented Memory and concentration: AOX3, grossly intact for the purposes of this session. Can spell "WORLD" backwards correctly. Judgment and insight: chronically poor, however has improved with guarded prognosis Impression: Adjustment disorder with depressed mood Borderline personality disorder Plan: -Continue with discharge today as patient has improved and stabilized psychiatrically and is not currently an imminent threat to themself and/or others. Patient will remain at chronically elevated risk for harm to self and/or others due to their impulsivity. -Continue medications: Effexor XR 150 mg daily, trazodone 150 mg at bedtime, and Vraylar 4.5 mg daily -Patient was counseled on the need for medication compliance and appropriate follow-up at mental health and also primary care for medical issues. Patient verbalized understanding and agreed. -Social work to help coordinate patients discharge today. Social work also to arrange for patients follow up appointments with [facility] for psychiatric care along with follow up with primary care provider. -Patient counseled on abstaining from recreational drugs and marijuana and alcohol. -Patient was instructed to return to the hospital or seek immediate medical care if their psychiatric or medical symptoms do worsen or reoccur. Pertinent Studies: XR of thoracic and lumbar spine. Patient Condition at Discharge: Stable Plan - Discharge Summary Discharge Rx Participant: No New Discharge Prescriptions: New traZODone HCL [Desyrel] 150 mg PO HS 14 Days #14 tab Venlafaxine HCl ER [Effexor XR] 150 mg PO DAILY 14 Days #14 cap Continue lamoTRIgine [LaMICtal] 200 mg PO BID #0 carBAMazepine [TEGretol] 200 mg PO BID Montelukast [Singulair] 10 mg PO HS Cariprazine HCl [Vraylar] 4.5 mg PO HS Omeprazole [PriLOSEC] 20 mg PO BID Zonisamide [Zonegran] 400 mg PO HS PHENobarbitaL [Luminal] 129.6 mg PO HS Discontinued traZODone HCL [Desyrel] 100 mg PO HS 30 Days #30 tab LORazepam [Ativan] 0.5 mg PO HS Ibuprofen [Motrin] 800 mg PO Q8H PRN PRN Reason: Pain Sertraline [Zoloft] 200 mg PO DAILY 30 Days #60 tab Discharge Medication List lamoTRIgine [LaMICtal] 200 mg PO BID #0 06/28/20 [Rx] carBAMazepine [TEGretol] 200 mg PO BID 10/10/20 [History] PHENobarbitaL [Luminal] 129.6 mg PO HS 08/28/22 [History] Zonisamide [Zonegran] 400 mg PO HS 08/28/22 [History] Montelukast [Singulair] 10 mg PO HS 09/16/24 [History] Cariprazine HCl [Vraylar] 4.5 mg PO HS 12/08/24 [History] Omeprazole [PriLOSEC] 20 mg PO BID 12/08/24 [History] Venlafaxine HCl ER [Effexor XR] 150 mg PO DAILY 14 Days #14 cap 12/15/24 [Rx] traZODone HCL [Desyrel] 150 mg PO HS 14 Days #14 tab 12/15/24 [Rx] Patient Instructions/Handouts: Depression (DC), Type 1 Diabetes in Adults: New Diagnosis (GEN), Borderline Personality Disorder (DC) Activity/Diet/Wound Care/Special Instructions: [facility] Discharge Info Avoid the use of street drugs and alcohol. Take all medications as prescribed. When you are in need of refills on your medications, please contact your outpatient medical provider and/or outpatient psychiatrist. Please go to your scheduled outpatient appointments for aftercare treatment. If symptoms return or become worse, call the crisis line at or and/or visit the nearest emergency room for assistance. National Suicide and Crisis Lifeline - call or text 988 Discharge Disposition: HOME SELF-CARE
== END 2024-12-15 14:01 | disposition home or self-care (01) | DRG 881 ==
LOC: EC 16:11 → 3MHU 18:29
PROVIDERS: ADMIT Psychiatry & Neurology Psychiatry; ATTEND Psychiatry & Neurology Psychiatry
DX: F43.21 Adjustment disorder with depressed mood (principal); G40.409 Other generalized epilepsy and epileptic syndromes, not intractable, without status epilepticus; F31.9 Bipolar disorder, unspecified; R45.851 Suicidal ideations; F60.3 Borderline personality disorder; F41.9 Anxiety disorder, unspecified; F79 Unspecified intellectual disabilities; Z11.52 Encounter for screening for COVID-19; G47.00 Insomnia, unspecified; K21.9 Gastro-esophageal reflux disease without esophagitis; M43.16 Spondylolisthesis, lumbar region; Z79.899 Other long term (current) drug therapy; Z80.3 Family history of malignant neoplasm of breast; Z91.51 Personal history of suicidal behavior
CPT/HCPCS: 72070; 72100; 80053; 80156; 80175; 80184; 80306; 81003; 82075; 83036; 84443; 85025; 87635; 99285

== ENCOUNTER 2024-12-23 23:46 | Emergency (ER) | payer MEDICARE, OTHER ==
[2024-12-23 23:52] VITALS: TEMP 97.3
[2024-12-24] MEDS: LORazepam 1 MG TAB PO STA (04:23)
[2024-12-24] MEDS: lamoTRIgine 100 MG TAB PO STA (05:32)
--- NOTE | 2024-12-24 06:07 | ED ---
Psych HPI - General Chief Complaint: Psychiatric Symptoms Stated Complaint: Mental Health, ETOH Time Seen by Provider: 12/24/24 01:44 Source: patient Mode of arrival: ambulatory - History of Present Illness Initial Comments: This patient is a 34-year-old man with history of mood disorder who presents with complaint that he had an argument with his and has been having some thoughts of self-harm. MD Complaint: suicidal ideation, feels depressed -: hour(s) Associated Psychiatric Symptoms: depression, suicidal ideation History of same: Yes Quality: getting worse Improves With: none Worsens With: none Context: significant life stressor Associated Symptoms: denies other symptoms - Related Data Home Medications Medication Instructions Recorded Confirmed carBAMazepine [TEGretol] 200 mg PO BID 10/10/20 12/25/24 PHENobarbitaL [Luminal] 129.6 mg PO HS 08/28/22 12/25/24 Zonisamide [Zonegran] 400 mg PO HS 08/28/22 12/25/24 Montelukast [Singulair] 10 mg PO HS 09/16/24 12/25/24 Cariprazine HCl [Vraylar] 4.5 mg PO HS 12/08/24 12/25/24 Omeprazole [PriLOSEC] 20 mg PO BID 12/08/24 12/25/24 Previous Rx's Medication Instructions Recorded lamoTRIgine [LaMICtal] 200 mg PO BID #0 06/28/20 Venlafaxine HCl ER [Effexor XR] 150 mg PO DAILY 14 Days #14 cap 12/15/24 traZODone HCL [Desyrel] 150 mg PO HS 14 Days #14 tab 12/15/24 Allergies Allergy/AdvReac Type Severity Reaction Status Date / Time No Known Allergies Allergy Verified 01/06/25 18:50 Review of Systems ROS Statement: Those systems with pertinent positive or pertinent negative responses have been documented in the HPI. ROS Other: All systems not noted in ROS Statement are negative. Constitutional: Denies: fever Respiratory: Denies: cough, dyspnea Cardiovascular: Denies: chest pain, palpitations Gastrointestinal: Denies: abdominal pain, nausea, vomiting Musculoskeletal: Denies: back pain Skin: Denies: rash Neurological: Denies: headache, weakness Psychiatric: Reports: depression, suicidal thoughts. Denies: auditory hallucinations, visual hallucinations, homicidal thoughts Past Medical History Past Medical History: GERD/Reflux, Seizure Disorder, Skin Disorder Additional Past Medical History / Comment(s): has history of epilepsy, hx grand mal seizures since childhood, migraines, acne History of Any Multi-Drug Resistant Organisms: None Reported Past Surgical History: Adenoidectomy, Appendectomy, Cholecystectomy, Tonsillectomy Additional Past Surgical History / Comment(s): oral surgery. I & D CYST ON BACK 08/19/22, egd Past Anesthesia/Blood Transfusion Reactions: Previous Problems w/ Anesthesia Additional Past Anesthesia/Blood Transfusion Reaction / Comment(s): SLOW TO WAKE FROM ANESTHESIA", no blood transfusion Past Psychological History: ADD/ADHD, Anxiety, Bipolar, Depression Smoking Status: Never smoker Past Alcohol Use History: Rare Past Drug Use History: None Reported - Past Family History Mother Family Medical History: Cancer Additional Family Medical History / Comment(s): breast cancer General Exam Limitations: no limitations General appearance: alert, in no apparent distress Head exam: Present: atraumatic, normocephalic Eye exam: Present: normal appearance. Absent: scleral icterus, conjunctival injection Neck exam: Present: normal inspection Respiratory exam: Present: normal lung sounds bilaterally. Absent: respiratory distress, wheezes, rales, rhonchi, stridor, accessory muscle use Cardiovascular Exam: Present: regular rate, normal rhythm, normal heart sounds. Absent: systolic murmur, diastolic murmur, rubs, gallop GI/Abdominal exam: Present: soft. Absent: distended, tenderness, guarding, rebound Extremities exam: Present: normal inspection, normal capillary refill Neurological exam: Present: alert Psychiatric exam: Present: suicidal ideation. Absent: agitated, anxious, flat affect, manic, homicidal ideation Skin exam: Present: warm, dry, intact, normal color. Absent: rash Course Vital Signs 12/23/24 12/24/24 23:49 06:21 Temperature 97.3 F L Pulse Rate 69 68 Respiratory 20 16 Rate Blood Pressure 124/75 139/77 O2 Sat by Pulse 98 98 Oximetry Medical Decision Making - Medical Decision Making Was pt. sent in by a medical professional or institution (, PA, SUPERVISOR ELECTRIC MOTOR TESTING, urgent care, hospital, or half-way...) When possible be specific @ -[No] Did you speak to anyone other than the patient for history (EMS, parent, family, police, friend...)? What history was obtained from this source @ -[No] Did you review nursing and triage notes (agree or disagree)? Why? @ -[I reviewed and agree with nursing and triage notes] Were old charts reviewed (outside hosp., previous admission, EMS record, old EKG, old radiological studies, urgent care reports/EKG's, half-way records)? Report findings @ -[No old charts were reviewed] Differential Diagnosis (chest pain, altered mental status, abdominal pain women, abdominal pain men, vaginal bleeding, weakness, fever, dyspnea, syncope, headache, dizziness, GI bleed, back pain, seizure, CVA, palpatations, mental health, musculoskeletal)? @ -[Differential Mental Health Depression, anxiety, bipolar, psychosis, schizophrenia, borderline personality, situational depression, adjustment disorder, behavioral disorder, brain tumor, malingering, substance abuse, encephalopathy, medication reaction, dementia, hypothyroidism, degenerative neurologic disorder, lupus.... This is not meant to be all-inclusive list EKG interpreted by me (3pts min.). @ -[As above] X-rays interpreted by me (1pt min.). @ -[None done] CT interpreted by me (1pt min.). @ -[None done] U/S interpreted by me (1pt. min.). @ -[None done] What testing was considered but not performed or refused? (CT, X-rays, U/S, labs)? Why? @ -[None] What meds were considered but not given or refused? Why? @ -[None] Did you discuss the management of the patient with other professionals (professionals i.e. , PA, SUPERVISOR E[employer] TESTING, lab, RT, psych nurse, high school social studies tutor, weld fitter, teacher, founder chairman and chief creative officer, caser up)? Give summary @ -[Case discussed with [facility] personnel Was smoking cessation discussed for >3mins.? @ -[No] Was critical care preformed (if so, how long)? @ -[No] Were there social determinants of health that impacted care today? How? (Homelessness, low income, unemployed, alcoholism, drug addiction, transportation, low edu. Level, literacy, decrease access to med. care, fci, rehab)? @ -[No] Was there de-escalation of care discussed even if they declined (Discuss DNR or withdrawal of care, Hospice)? DNR status @ -[No] What co-morbidities impacted this encounter? (DM, HTN, Smoking, COPD, CAD, Cancer, CVA, ARF, Chemo, Hep., AIDS, mental health diagnosis, sleep apnea, morbid obesity)? @ -[History of psychiatric disease Was patient admitted / discharged? Hospital course, mention meds given and route, prescriptions, significant lab abnormalities, going to OR and other pertinent info. @ -[[facility] saw and evaluated the patient, they discussed with psychiatrist and at this point he does appear to be stable to continue as outpatient. They did arrange safety plan Undiagnosed new problem with uncertain prognosis? @ -[No] Drug Therapy requiring intensive monitoring for toxicity (Heparin, Nitro, Insulin, Cardizem)? @ -[No] Were any procedures done? @ -[No] Diagnosis/symptom? @ -[Acute mood disorder Acute, or Chronic, or Acute on Chronic? @ -[Acute Uncomplicated (without systemic symptoms) or Complicated (systemic symptoms)? @ -Uncomplicated Side effects of treatment? @ -[No] Exacerbation, Progression, or Severe Exacerbation? @ -[No] Poses a threat to life or bodily function? How? (Chest pain, [place], [place], pneumonia, PE, COPD, DKA, ARF, appy, cholecystitis, CVA, Diverticulitis, Homicidal, Suicidal, threat to staff... and all critical care pts) @ -[Low risk All treatments are based on ideal body weight as in ED triage Disposition Clinical Impression: Mood disorder Disposition: HOME SELF-CARE Condition: Good Instructions (If sedation given, give patient instructions): Mood Disorders (ED) Is patient prescribed a controlled substance at d/c from ED?: No Referrals: Ana Maria Samson MD [Primary Care Provider] - 1-2 days
[2024-12-24 06:22] VITALS: BP 139/77; PULSE 68; RESP 16
== END 2024-12-24 06:22 | disposition home or self-care (01) ==
LOC: EC 23:46
DX: F39 Unspecified mood [affective] disorder (principal); Z86.59 Personal history of other mental and behavioral disorders
CPT/HCPCS: 82075; 99285

== ENCOUNTER 2024-12-24 18:38 | Inpatient (IN) | payer MEDICARE, MEDICAID ==
--- NOTE | 2024-12-24 20:35 | ED ---
Psych HPI - General Chief Complaint: Psychiatric Symptoms Stated Complaint: Mental health Time Seen by Provider: 12/24/24 20:34 Source: patient, RN notes reviewed Mode of arrival: ambulatory - History of Present Illness Initial Comments: 34-year-old male presenting for suicidal ideations. Denies plan. Denies homicidal ideation. States he was seen here last night for same thing and discharged. Denies any alcohol use today. No other medical complaints at this time. - Related Data Home Medications Medication Instructions Recorded Confirmed carBAMazepine [TEGretol] 200 mg PO BID 10/10/20 12/08/24 PHENobarbitaL [Luminal] 129.6 mg PO HS 08/28/22 12/08/24 Zonisamide [Zonegran] 400 mg PO HS 08/28/22 12/08/24 Montelukast [Singulair] 10 mg PO HS 09/16/24 12/08/24 Cariprazine HCl [Vraylar] 4.5 mg PO HS 12/08/24 12/08/24 Omeprazole [PriLOSEC] 20 mg PO BID 12/08/24 12/08/24 Previous Rx's Medication Instructions Recorded lamoTRIgine [LaMICtal] 200 mg PO BID #0 06/28/20 Venlafaxine HCl ER [Effexor XR] 150 mg PO DAILY 14 Days #14 cap 12/15/24 traZODone HCL [Desyrel] 150 mg PO HS 14 Days #14 tab 12/15/24 Allergies Allergy/AdvReac Type Severity Reaction Status Date / Time No Known Allergies Allergy Verified 12/24/24 19:04 Review of Systems ROS Statement: Those systems with pertinent positive or pertinent negative responses have been documented in the HPI. ROS Other: All systems not noted in ROS Statement are negative. Past Medical History Past Medical History: GERD/Reflux, Seizure Disorder, Skin Disorder Additional Past Medical History / Comment(s): has history of epilepsy, hx grand mal seizures since childhood, migraines, acne History of Any Multi-Drug Resistant Organisms: None Reported Past Surgical History: Adenoidectomy, Appendectomy, Cholecystectomy, Tonsillectomy Additional Past Surgical History / Comment(s): oral surgery. I & D CYST ON BACK 08/19/22, egd Past Anesthesia/Blood Transfusion Reactions: Previous Problems w/ Anesthesia Additional Past Anesthesia/Blood Transfusion Reaction / Comment(s): SLOW TO WAKE FROM ANESTHESIA", no blood transfusion Past Psychological History: ADD/ADHD, Anxiety, Bipolar, Depression Smoking Status: Never smoker Past Alcohol Use History: Rare Past Drug Use History: None Reported - Past Family History Mother Family Medical History: Cancer Additional Family Medical History / Comment(s): breast cancer General Exam Limitations: no limitations General appearance: alert, in no apparent distress Head exam: Present: atraumatic, normocephalic, normal inspection Eye exam: Present: normal appearance, PERRL, EOMI. Absent: scleral icterus, conjunctival injection, periorbital swelling ENT exam: Present: normal exam, mucous membranes moist Neurological exam: Present: alert, oriented X3 Psychiatric exam: Present: normal affect, normal mood, suicidal ideation. Absent: homicidal ideation Skin exam: Present: warm, dry, intact, normal color. Absent: rash Course Vital Signs 12/24/24 19:01 Temperature 98 F Pulse Rate 83 Respiratory 18 Rate Blood Pressure 118/81 O2 Sat by Pulse 99 Oximetry Medical Decision Making - Medical Decision Making Was pt. sent in by a medical professional or institution (, PA, OPTICAL FABRICATION TECHNICIAN, urgent care, hospital, or assisted...) When possible be specific @ -No Did you speak to anyone other than the patient for history (EMS, parent, family, police, friend...)? What history was obtained from this source @ -No Did you review nursing and triage notes (agree or disagree)? Why? @ -I reviewed and agree with nursing and triage notes Were old charts reviewed (outside hosp., previous admission, EMS record, old EKG, old radiological studies, urgent care reports/EKG's, assisted records)? Report findings @ -No old charts were reviewed Differential Diagnosis (chest pain, altered mental status, abdominal pain women, abdominal pain men, vaginal bleeding, weakness, fever, dyspnea, syncope, head ache, dizziness, GI bleed, back pain, seizure, CVA, palpatations, mental health, musculoskeletal)? @ -Differential Mental Health Depression, anxiety, bipolar, psychosis, schizophrenia, borderline personality, situational depression, adjustment disorder, behavioral disorder, brain tumor, malingering, substance abuse, encephalopathy, medication reaction, dementia, hypothyroidism, degenerative neurologic disorder, lupus.... This is not meant to be all-inclusive list EKG interpreted by me (3pts min.). @ -None X-rays interpreted by me (1pt min.). @ -None done CT interpreted by me (1pt min.). @ -None done U/S interpreted by me (1pt. min.). @ -None done What testing was considered but not performed or refused? (CT, X-rays, U/S, labs)? Why? @ -None What meds were considered but not given or refused? Why? @ -None Did you discuss the management of the patient with other professionals (professionals i.e. DrMary, PA, OPTICAL FABRICATION TECHNICIAN, lab, RT, psych nurse, high school social science teacher, bow stapler, teacher, founder chairman and chief creative officer, watch caser)? Give summary @ -I spoke with [facility] who recommends admission Was smoking cessation discussed for >3mins.? @ -No Was critical care preformed (if so, how long)? @ -No Were there social determinants of health that impacted care today? How? (Homelessness, low income, unemployed, alcoholism, drug addiction, transportation, low edu. Level, literacy, decrease access to med. care, halfway, rehab)? @ -No Was there de-escalation of care discussed even if they declined (Discuss DNR or withdrawal of care, Hospice)? DNR status @ -No What co-morbidities impacted this encounter? (DM, HTN, Smoking, COPD, CAD, Cancer, CVA, ARF, Chemo, Hep., AIDS, mental health diagnosis, sleep apnea, morbid obesity)? @ -None Was patient admitted / discharged? Hospital course, mention meds given and route, prescriptions, significant lab abnormalities, going to OR and other pertinent info. @ - admitted. 34-year-old male presenting for suicidal ideation. Denies plan. No medical complaints at this time. Patient is medically cleared to be seen by [facility]. I spoke with Daria from [facility] who recommends inpatient psychiatric admission. I agree with this plan. Case was discussed with my ED attending Dr. Stafford. Undiagnosed new problem with uncertain prognosis? @ -No Drug Therapy requiring intensive monitoring for toxicity (Heparin, Nitro, Insulin, Cardizem)? @ -No Were any procedures done? @ -No Diagnosis/symptom? @ -Suicidal ideation Acute, or Chronic, or Acute on Chronic? @ -Acute Uncomplicated (without systemic symptoms) or Complicated (systemic symptoms)? @ -Default Side effects of treatment? @ -No Exacerbation, Progression, or Severe Exacerbation? @ -No Poses a threat to life or bodily function? How? (Chest pain, [place], [place], pneumonia, PE, COPD, DKA, ARF, appy, cholecystitis, CVA, Diverticulitis, Homicidal, Suicidal, threat to staff... and all critical care pts) @ -Yes - Lab Data Lab Results 12/24/24 12/24/24 Range/Units 20:48 20:48 Urine Color Yellow Urine Appearance Clear (Clear) Urine pH 5.5 (5.0-8.0) Ur Specific [place] 1.024 (1.001-1.035) Urine Protein Trace H (Negative) Urine Glucose (UA) Negative (Negative) Urine Ketones Negative (Negative) Urine Blood Negative (Negative) Urine Nitrite Negative (Negative) Urine Bilirubin Negative (Negative) Urine Urobilinogen <2.0 (<2.0) mg/dL Ur Leukocyte Esterase Negative (Negative) Urine Opiates Screen Not Detected (NotDetected) Ur Oxycodone Screen Not Detected (NotDetected) Urine Methadone Screen Not Detected (NotDetected) Ur Barbiturates Screen Detected H (NotDetected) U Tricyclic Antidepress Not Detected (NotDetected) Ur Phencyclidine Scrn Not Detected (NotDetected) Ur Amphetamines Screen Not Detected (NotDetected) U Methamphetamines Scrn Not Detected (NotDetected) U Benzodiazepines Scrn Detected H (NotDetected) Urine Cocaine Screen Not Detected (NotDetected) U Marijuana (THC) Screen Not Detected (NotDetected) Influenza Type A (PCR) Not Detected (Not Detectd) Influenza Type B (PCR) Not Detected (Not Detectd) RSV (PCR) Not Detected (Not Detectd) SARS-CoV-2 (PCR) Not Detected (Not Detectd) Disposition Clinical Impression: Suicidal ideation Disposition: ADMITTED IP TO THIS HOSP Referrals: Ana Maria Samson MD [Primary Care Provider] - 1-2 days Time of Disposition: 22:45
[2024-12-24 21:04] LABS: Appearance,Urine Clear (Clear); Bilirubin,Urine Negative (Negative); Blood,Urine Negative (Negative); Color,Urine Yellow; Glucose,Urine (UA) Negative (Negative); Ketones,Urine Negative (Negative); Leukocyte Esterase,Urine Negative (Negative); Nitrite,Urine Negative (Negative); PH, Urine 5.5 (5.0-8.0); Protein,Urine Trace (Negative); Specific Gravity,Urine 1.024 (1.001-1.035); Urobilinogen,Urine <2.0 mg/dL (<2.0)
[2024-12-24 21:14] LABS: Amphetamine Screen,Urine Not Detected (NotDetected); Barbiturate Screen,Urine Detected (NotDetected); Benzodiazepines Screen,Urine Detected (NotDetected); Cocaine Screen,Urine Not Detected (NotDetected); Methadone Screen, Urine Not Detected (NotDetected); Opiate Screen,Urine Not Detected (NotDetected); Oxycodone Screen, Urine Not Detected (NotDetected); Phencyclidine Screen,Urine Not Detected (NotDetected); Tricyclic Antidepressant,Urine Not Detected (NotDetected); Urn Cannabinoid Scrn Not Detected (NotDetected)
[2024-12-24 21:40] LABS: Influenza A Not Detected (Not Detectd); Influenza B Not Detected (Not Detectd); RSV Not Detected (Not Detectd)
[2024-12-24] MEDS: carBAMazepine 200 MG TAB PO STA (22:29)
[2024-12-25] MEDS ORDERED: MAG HYDROX/AL HYDROX/SIMETH 355 ML BOTTLE PO PRN (01:53)
[2024-12-25] MEDS ORDERED: ACETAMINOPHEN TAB 325 MG TAB PO PRN (01:53)
[2024-12-25] MEDS ORDERED: MAGNESIUM HYDROXIDE 2,400 MG/30 ML CUP PO PRN (01:53)
[2024-12-25] MEDS ORDERED: haloperidoL 5 MG TAB PO PRN (01:53)
[2024-12-25] MEDS ORDERED: traZODone HCL 50 MG TAB PO PRN (01:53)
[2024-12-25] MEDS ORDERED: HALOPERIDOL LACTATE 5 MG/ML 1 ML VIAL IM PRN (01:53)
[2024-12-25] MEDS ORDERED: IBUPROFEN 600 MG TAB PO PRN (01:53)
[2024-12-25] MEDS ORDERED: LORazepam 1 MG TAB PO PRN (01:53)
[2024-12-25 05:32] VITALS: RESP 16
[2024-12-25 08:08] VITALS: TEMP 97.9
[2024-12-25] MEDS: ZONISAMIDE 100 MG CAP PO SCH (08:08)
[2024-12-25] MEDS: PANTOPRAZOLE 40 MG TABLET PO SCH (08:08)
[2024-12-25] MEDS: carBAMazepine 200 MG TAB PO SCH (08:08)
[2024-12-25] MEDS: NICOTINE 14MG/24HR PATCH TRANSDERM SCH (08:09)
--- NOTE | 2024-12-25 10:37 | P.HP ---
Psychiatric H&P - . H&P Date: 12/25/24 History & Physical: Allergies Allergy/AdvReac Type Severity Reaction Status Date / Time No Known Allergies Allergy Verified 12/24/24 19:04 Vital Signs Temp 97.9 F 12/25/24 08:07 Pulse 85 12/25/24 08:07 Resp 16 12/25/24 08:07 BP 102/73 12/25/24 08:07 Pulse Ox 98 12/25/24 08:07 FiO2 Intake & Output 12/24/24 12/25/24 12/25/24 18:59 06:59 18:59 Weight 79.197 kg Laboratory Last Values Urine Color Yellow 12/24/24 20:48 Urine Appearance Clear (Clear) 12/24/24 20:48 Urine pH 5.5 (5.0-8.0) 12/24/24 20:48 Ur Specific [place] 1.024 (1.001-1.035) 12/24/24 20:48 Urine Protein Trace (Negative) H 12/24/24 20:48 Urine Glucose (UA) Negative (Negative) 12/24/24 20:48 Urine Ketones Negative (Negative) 12/24/24 20:48 Urine Blood Negative (Negative) 12/24/24 20:48 Urine Nitrite Negative (Negative) 12/24/24 20:48 Urine Bilirubin Negative (Negative) 12/24/24 20:48 Urine Urobilinogen <2.0 mg/dL (<2.0) 12/24/24 20:48 Ur Leukocyte Esterase Negative (Negative) 12/24/24 20:48 Urine Opiates Screen Not Detected (NotDetected) 12/24/24 20:48 Ur Oxycodone Screen Not Detected (NotDetected) 12/24/24 20:48 Urine Methadone Screen Not Detected (NotDetected) 12/24/24 20:48 Ur Barbiturates Screen Detected (NotDetected) H 12/24/24 20:48 U Tricyclic Antidepress Not Detected (NotDetected) 12/24/24 20:48 Ur Phencyclidine Scrn Not Detected (NotDetected) 12/24/24 20:48 Ur Amphetamines Screen Not Detected (NotDetected) 12/24/24 20:48 U Methamphetamines Scrn Not Detected (NotDetected) 12/24/24 20:48 U Benzodiazepines Scrn Detected (NotDetected) H 12/24/24 20:48 Urine Cocaine Screen Not Detected (NotDetected) 12/24/24 20:48 U Marijuana (THC) Screen Not Detected (NotDetected) 12/24/24 20:48 Influenza Type A (PCR) Not Detected (Not Detectd) 12/24/24 20:48 Influenza Type B (PCR) Not Detected (Not Detectd) 12/24/24 20:48 RSV (PCR) Not Detected (Not Detectd) 12/24/24 20:48 SARS-CoV-2 (PCR) Not Detected (Not Detectd) 12/24/24 20:48 12/25/24 10:27 IDENTIFYING DATA: Patient is a 34-year-old male, unemployed and living with and son CHIEF COMPLAINT: SI with plan HPI: Patient presented to the hospital with suicidal ideations. Per EPS note, " pt lying on stretcher in room. pt presents with blunted, tearful affect. pt states that he feels as though "everything is wrong." pt reports that he has been struggling with significantly worsening depression for the past couple of days. pt states that he has had severely increased suicidality yesterday, but denied having a plan yesterday. pt states that he was with his at the mall today and had another worsening of SI. pt reports current SI and states that his plan is "traffic." pt states that "Bre and Jv would be better off if I was 6 feet under." pt unwilling to discuss what stressors triggered this episode. pt denies HI and hallucinations. No delusional thoughts verbalized. pt cooperative with assessment. pt did call [facility] earlier today prior to coming to ER. Credit Office Manager spoke with pt and was unable to make out much of what was being said as pt continued to cry on the phone. pt had stated that he wanted to and had confirmed that he was not by himself before giving the phone to his , Bre. Apparently they were at the mall eating while waiting for Jv to be dropped off by Bre's mother. It was during this time that pt began crying and was unable to adequately express what was going on. pt did tell Bre that he was suicidal and needed help prompting the call to the hospital. Bre also reports that pt has been waking up "at the crack of juan alberto" no matter how late it is that he goes to bed and that he lies there awake. Bre states that this has been the case since pt was discharged from [facility] on 12/15/24. pt also apparently called his mother this morning after having had no contact for years, per Bre. pt then had a 10 minute phone conversation with his mother before ending the call and immediately blocking her again. pt's verbalizes significant concern that pt has been acting very out of character and bizarre lately including when he jumped out of the car leading up to his most recent admission. Bre states that it has been difficult and pt refuses to discuss what he is feeling or why this is happening. It was also reported that there was concern that pt had been discharged too early." Patient seen and evaluated on the unit and was agreeable with speaking to content writer in office with nursing students present. He states drinking a tall boy on resulting in him calling 911 expressing suicidal ideations however he was discharged home. He states on Friday returning to the ED due to worsening his suicidal ideations. He reports several stressors however was vague on the details. He did mention financial stressors being the biggest one at this time as he has not had a job for some time however he does wish to find 1 but his prevents him from obtaining 1 due to their benefits. Patient reports seeing a therapist however mentioned his therapist is recommending institutionalization and is planning on discharging him. He reports low energy, denying any sleep or appetite issues, poor concentration. He does mention his anxiety is high however he does appear to be related to his ongoing psychosocial stressors. He does report low energy, suicidal ideations at this time that he described as "high" but denied any plans at this time. Patient denies any homicidal ideations intent or plan. At this time patient denies any auditory or visual hallucinations. Patient denies any flight of ideas racing thoughts and increased in goal directed behavior. Patient admits to using alcohol occasionally, states he only drink 1 tall boy 1 . PAST PSYCHIATRIC HISTORY: Patient has a history of adjustment disorder, borderline personality disorder. He is currently on Effexor XR 150 mg daily, trazodone 150 mg at bedtime. Patient was recently hospitalized at this facility earlier this month and previously was hospitalized at [facility] in September 2024. Patient follows with [facility]. Patient reports 1 suicide attempt back in September 2024. PMH: as per ER note ALLERGIES: as per EMR SUBSTANCE USE HISTORY: FAMILY PSYCHIATRIC/SUBSTANCE USE HISTORY: Denies SOCIAL HISTORY: Patient was born in [place] and raised in [place]. He is and has 1 son, living with and son he wishes to return home with them. 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 MENTAL STATUS EXAM: General Appearance: Patient appears to be stated age is alert, directable, and attempts to cooperate. Patient appears to have fair hygiene and grooming. He wears glasses Behavior: Patient is seated without any agitated behavior. Speech: Patient's speech is fluent and nonpressured. Mood/Affect: Patient reports their mood is depressed, affect is congruent and constricted. Suicidality/Homicidality: Patient denies having any homicidal ideation intent or plan. He reports suicidal ideations, no plan Perceptions: Patient denies any visual hallucinations and denies any auditory hallucinations Though content/process: There is no evidence of any delusional thought content and thought process is linear. Memory and concentration: AOX3, grossly intact for the purposes of this session. Can spell "WORLD" backwards Judgment and insight: Poor STRENGTHS/WEAKNESSES: strength is that patient is resilient, follows regularly with [facility] and has family support. Weakness is that patient has poor judgment, poor coping skills and is impulsive INTELLECT: Below average IMPRESSIONS: Adjustment disorder with depressed and anxious mood Borderline personality disorder PLAN: -Patient is admitted under voluntary status to [facility] for stabilization of psyc hiatric symptoms and safety. Patient has signed adult voluntary form and medication consent and is placed in patient's chart. -Medications : Resume Effexor XR 150 mg daily for depression/anxiety, trazodone 50 mg at bedtime for insomnia. Will asked to bring in [facility] as pharmacy does not carry this medication -Ativan and Haldol PRN for agitation/aggression -Patient was informed of the risks, benefits and side effects of the medication and patient verbally consented to taking the medications. Patient signed med consent form and was placed in chart. -Internal Medicine consult to perform medical evaluation and physical. -NRT -not needed as patient does not smoke -SW on board for discharge planning. Encourage patient to participate in groups to work on coping skills.
[2024-12-25] MEDS: VENLAFAXINE HCL ER 150 MG CAP PO SCH (10:52)
[2024-12-25] MEDS: lamoTRIgine 100 MG TAB PO SCH (10:52)
[2024-12-25 11:51] VITALS: BMI 24.3
--- NOTE | 2024-12-25 12:23 | P.MDCNMH ---
History of Present Illness H&P Date: 12/25/24 History of present illness; patient 34-year-old gentleman with past medical history significant for seizures presented the ER for suicidal ideations. Patient stated that he has been dealing with worsening depression for the last couple of days. Patient states that nothing is right in his life.. Patient said that he has a plan to end his life but does not want to tell us. Denies any auditory or visual hallucinations. Patient denies any homicidal thoughts. Initial lab work done in the ER showed UA negative for infection Urine drug screen positive for barbiturates, benzos. Influenza A not detected Influenza B not detected RSV not detected COVID-19 not detected Patient admitted to inpatient psychiatry Patient admitted to internal medicine service REVIEW OF SYSTEMS: CONSTITUTIONAL: No fever, no malaise, no fatigue. HEENT: No recent visual problems or hearing problems. Denied any sore throat. CARDIOVASCULAR: No chest pain, orthopnea, PND, no palpitations, no syncope. PULMONARY: No shortness of breath, no cough, no hemoptysis. GASTROINTESTINAL: No diarrhea, no nausea, no vomiting, no abdominal pain. NEUROLOGICAL: No headaches, no weakness, no numbness. HEMATOLOGICAL: Denies any bleeding or petechiae. GENITOURINARY: Denies any burning micturition, frequency, or urgency. MUSCULOSKELETAL/RHEUMATOLOGICAL: Denies any joint pain, swelling, or any muscle pain. ENDOCRINE: Denies any polyuria or polydipsia. The rest of the 14-point review of systems is negative. PHYSICAL EXAMINATION: GENERAL: The patient is alert and oriented x3, blunted flat affect HEENT: Pupils are round and equally reacting to light. EOMI. No scleral icterus. No conjunctival pallor. Normocephalic, atraumatic. No pharyngeal erythema. No thyromegaly. CARDIOVASCULAR: S1 and S2 present. No murmurs, rubs, or gallops. PULMONARY: Chest is clear to auscultation, no wheezing or crackles. ABDOMEN: Soft, nontender, nondistended, normoactive bowel sounds. No palpable organomegaly. MUSCULOSKELETAL: No joint swelling or deformity. EXTREMITIES: No cyanosis, clubbing, or pedal edema. NEUROLOGICAL: Gross neurological examination did not reveal any focal deficits. SKIN: No rashes. Assessment and plan Major depression Suicidal ideation Borderline personality disorder History of epilepsy Monitor vital signs Elopement precaution Suicide precautions Continue Lamictal, phenobarb, Tegretol Continue psych meds per psychiatry Labs and medication were reviewed.. Continue same treatment. Continue with symptomatic treatment. Resume home medication. Monitor labs and vitals. DVT and GI prophylaxis. Further recommendations as per clinical course of the patient Dictation was produced using [employer] dictation software. please excuse any grammatical, word or spelling errors. Past Medical History Past Medical History: GERD/Reflux, Seizure Disorder, Skin Disorder Additional Past Medical History / Comment(s): has history of epilepsy, hx grand mal seizures since childhood, migraines, acne History of Any Multi-Drug Resistant Organisms: None Reported Past Surgical History: Adenoidectomy, Appendectomy, Cholecystectomy, Tonsillectomy Additional Past Surgical History / Comment(s): oral surgery. I & D CYST ON BACK 08/19/22, egd Past Anesthesia/Blood Transfusion Reactions: Previous Problems w/ Anesthesia Additional Past Anesthesia/Blood Transfusion Reaction / Comment(s): SLOW TO WAKE FROM ANESTHESIA", no blood transfusion Past Psychological History: ADD/ADHD, Anxiety, Bipolar, Depression Additional Psychological History / Comment(s): per pt-he was in special education classes thru out school(has some intellectual disabilty), speech impediment. able to read and write fine. hx cluster b disorder Smoking Status: Never smoker Past Alcohol Use History: Rare Additional Past Alcohol Use History / Comment(s): Denies any alcohol intake since he is on probation til April 2019 Past Drug Use History: None Reported Additional Drug Use History / Comment(s): Denies any illicit drugs or any marijuana use - Past Family History Mother Family Medical History: Cancer Additional Family Medical History / Comment(s): breast cancer Medications and Allergies Home Medications Medication Instructions Recorded Confirmed Type lamoTRIgine [LaMICtal] 200 mg PO BID #0 06/28/20 12/25/24 Rx carBAMazepine [TEGretol] 200 mg PO BID 10/10/20 12/25/24 History PHENobarbitaL [Luminal] 129.6 mg PO HS 08/28/22 12/25/24 History Zonisamide [Zonegran] 400 mg PO HS 08/28/22 12/25/24 History Montelukast [Singulair] 10 mg PO HS 09/16/24 12/25/24 History Cariprazine HCl [Vraylar] 4.5 mg PO HS 12/08/24 12/25/24 History Omeprazole [PriLOSEC] 20 mg PO BID 12/08/24 12/25/24 History Venlafaxine HCl ER [Effexor XR] 150 mg PO DAILY 14 Days #14 cap 12/15/24 12/25/24 Rx traZODone HCL [Desyrel] 150 mg PO HS 14 Days #14 tab 12/15/24 12/25/24 Rx Allergies Allergy/AdvReac Type Severity Reaction Status Date / Time No Known Allergies Allergy Verified 12/24/24 19:04 Physical Exam Vitals: Vital Signs Temp Pulse Pulse Resp BP BP Pulse Ox 12/25/24 08:07 97.9 F 85 16 102/73 98 12/25/24 01:49 97.6 F 96 16 117/80 98 12/24/24 19:01 98 F 83 18 118/81 99 Intake and Output 12/24/24 12/25/24 12/25/24 22:59 06:59 14:59 Other: Weight 83.007 kg 79.197 kg 79.197 kg Cranial Nerve Examination - Cranial Nerves Cranial Nerve II- Optic: Intact (Cranial nerves II to XII intact) Cranial Nerve III- Oculomotor: Intact Cranial Nerve IV- Trochlear: Intact Cranial Nerve V- Trigeminal: Intact Cranial Nerve - Abducens: Intact Cranial Nerve VII- Facial: Intact Cranial Nerve VIII- Auditory: Intact Cranial Nerve IX- Glossopharyngeal: Intact Cranial Nerve X- Vagus: Intact Cranial Nerve XI- Accessory: Intact Cranial Nerve XII- Hypoglossal: Intact Results Labs: Abnormal Lab Results - Last 24 Hours (Table) 12/24/24 Range/Units 20:48 Urine Protein Trace H (Negative) Ur Barbiturates Screen Detected H (NotDetected) U Benzodiazepines Scrn Detected H (NotDetected)
[2024-12-25] MEDS: LORazepam 2 MG/ML INJ IM PRN (17:59)
[2024-12-25 18:32] VITALS: BP 131/77; PULSE 92
[2024-12-25] MEDS ORDERED: ZONISAMIDE 100 MG CAP PO SCH (21:00)
[2024-12-25] MEDS ORDERED: MONTELUKAST 10 MG TAB PO SCH (21:00)
[2024-12-25] MEDS ORDERED: traZODone HCL 50 MG TAB PO SCH (21:00)
--- NOTE | 2024-12-26 12:02 | P.DS ---
Providers Date of admission: 12/25/24 01:44 Expected date of discharge: 12/26/24 Attending physician: Cally Ivey MD Consults: 12/25/24 01:53 Consult Physician Routine Consulting Provider: Litzy Moses Consult Reason/Comments: Medical management Do you want consulting provider notified?: Yes, Notify in am Primary care physician: Ana Maria Chapin - Discharge Diagnosis(es) (1) Adjustment disorder with mixed anxiety and depressed mood Status: Acute Priority: High (2) Borderline personality disorder Status: Chronic Priority: High Hospital Course: Admission HPI: Admission note was completed by jingle writer "Patient presented to the hospital with suicidal ideations. Per EPS note, " pt lying on stretcher in room. pt presents with blunted, tearful affect. pt states that he feels as though "everything is wrong." pt reports that he has been struggling with significantly worsening depression for the past couple of days. pt states that he has had severely increased suicidality yesterday, but denied having a plan yesterday. pt states that he was with his at the mall today and had another worsening of SI. pt reports current SI and states that his plan is "traffic." pt states that "Bre and Jv would be better off if I was 6 feet under." pt unwilling to discuss what stressors triggered this episode. pt denies HI and hallucinations. No delusional thoughts verbalized. pt cooperative with assessment. pt did call [facility] earlier today prior to coming to ER. Power Washer spoke with pt and was unable to make out much of what was being said as pt continued to cry on the phone. pt had stated that he wanted to and had confirmed that he was not by himself before giving the phone to his , Bre. Apparently they were at the mall eating while waiting for Jv to be dropped off by Bre's mother. It was during t his time that pt began crying and was unable to adequately express what was going on. pt did tell Bre that he was suicidal and needed help prompting the call to the hospital. Bre also reports that pt has been waking up "at the crack of juan alberto" no matter how late it is that he goes to bed and that he lies there awake. Bre states that this has been the case since pt was discharged from [facility] on 12/15/24. pt also apparently called his mother this morning after having had no contact for years, per Bre. pt then had a 10 minute phone conversation with his mother before ending the call and immediately blocking her again. pt's verbalizes significant concern that pt has been acting very out of character and bizarre lately including when he jumped out of the car leading up to his most recent admission. Bre states that it has been difficult and pt refuses to discuss what he is feeling or why this is happening. It was also reported that there was concern that pt had been discharged too early." Patient seen and evaluated on the unit and was agreeable with speaking to jingle writer in office with nursing students present. He states drinking a tall boy on resulting in him calling 911 expressing suicidal ideations however he was discharged home. He states on Friday returning to the ED due to worsening his suicidal ideations. He reports several stressors however was vague on the details. He did mention financial stressors being the biggest one at this time as he has not had a job for some time however he does wish to find 1 but his prevents him from obtaining 1 due to their benefits. Patient reports seeing a therapist however mentioned his therapist is recommending institutionalization and is planning on discharging him. He reports low energy, denying any sleep or appetite issues, poor concentration. He does mention his anxiety is high however he does appear to be related to his ongoing psychosocial stressors. He does report low energy, suicidal ideations at this time that he described as "high" but denied any plans at this time. Patient denies any homicidal ideations intent or plan. At this time patient denies any auditory or visual hallucinations. Patient denies any flight of ideas racing thoughts and increased in goal directed behavior. Patient admits to using alcohol occasionally, states he only drink 1 tall boy 1 ." Hospital course: Upon admission to the unit patient was directable and agreeable to commence treatment and signed adult voluntary form. Patient got along well with other patients on the unit and followed unit protocol. Patient was compliant with the medications and denied any side effects throughout hospital course. Patient was resumed on Effexor XR 150 mg daily for depression/anxiety, trazodone 50 mg at bedtime for insomnia, Vraylar 4.5 mg daily for mood stabilization. Patient had a witnessed tonic-clonic seizure for roughly 2 minutes on the unit that resolved with as needed Ativan 2 mg IM. A team was called and patient was ultimately transferred to the medical floor with neurology consulted with EEG ordered. CT head did not reveal any abnormalities. Mental status exam: Please refer to MSE Note from H&P on 12/25/2024 Impression: Adjustment disorder with mixed anxious and depressed mood Borderline personality disorder Plan: -Will transfer patient to the medical floor today given witnessed seizure with EEG ordered and neurology consulted. -Continue medications: Will continue medications until further evaluation including Effexor XR 150 mg daily, trazodone 50 mg at bedtime, Vraylar 4.5 mg daily Abnormal Labs 12/24/24 20:48 Urine Protein Trace H Ur Barbiturates Screen Detected H U Benzodiazepines Scrn Detected H Vital Signs Temp 97.9 F 12/25/24 08:07 Pulse 92 12/25/24 18:15 Resp 16 12/25/24 08:07 BP 131/77 12/25/24 18:15 Pulse Ox 96 12/25/24 17:52 FiO2 Intake & Output 12/25/24 12/26/24 12/26/24 18:59 06:59 18:59 Weight 79.197 kg Allergies Allergy/AdvReac Type Severity Reaction Status Date / Time No Known Allergies Allergy Verified 12/24/24 19:04 Patient Condition at Discharge: Stable Plan - Discharge Summary Discharge Rx Participant: Yes New Discharge Prescriptions: No Action lamoTRIgine [LaMICtal] 200 mg PO BID #0 carBAMazepine [TEGretol] 200 mg PO BID Montelukast [Singulair] 10 mg PO HS Cariprazine HCl [Vraylar] 4.5 mg PO HS Omeprazole [PriLOSEC] 20 mg PO BID traZODone HCL [Desyrel] 150 mg PO HS 14 Days #14 tab Zonisamide [Zonegran] 400 mg PO HS PHENobarbitaL [Luminal] 129.6 mg PO HS Venlafaxine HCl ER [Effexor XR] 150 mg PO DAILY 14 Days #14 cap Discharge Medication List lamoTRIgine [LaMICtal] 200 mg PO BID #0 06/28/20 [Rx] carBAMazepine [TEGretol] 200 mg PO BID 10/10/20 [History] PHENobarbitaL [Luminal] 129.6 mg PO HS 08/28/22 [History] Zonisamide [Zonegran] 400 mg PO HS 08/28/22 [History] Montelukast [Singulair] 10 mg PO HS 09/16/24 [History] Cariprazine HCl [Vraylar] 4.5 mg PO HS 12/08/24 [History] Omeprazole [PriLOSEC] 20 mg PO BID 12/08/24 [History] Venlafaxine HCl ER [Effexor XR] 150 mg PO DAILY 14 Days #14 cap 12/15/24 [Rx] traZODone HCL [Desyrel] 150 mg PO HS 14 Days #14 tab 12/15/24 [Rx] Follow up Appointment(s)/Referral(s): Ana Maria Samson MD [Primary Care Provider] - 1-2 days Activity/Diet/Wound Care/Special Instructions: [facility] Discharge Info Avoid the use of street drugs and alcohol. Take all medications as prescribed. When you are in need of refills on your medications, please contact your outpatient medical provider and/or outpatient psychiatrist. Please go to your scheduled outpatient appointments for aftercare treatment. If symptoms return or become worse, call the crisis line at or and/or visit the nearest emergency room for assistance. National Suicide and Crisis Lifeline - call or text 078
== END 2024-12-25 19:02 | disposition short-term general hospital (02) | DRG 883 ==
LOC: EC 18:38 → 3MHU 12-25 01:44
PROVIDERS: ADMIT Psychiatry & Neurology Psychiatry; ATTEND Psychiatry & Neurology Psychiatry
DX: F60.3 Borderline personality disorder (principal); R45.851 Suicidal ideations; F43.23 Adjustment disorder with mixed anxiety and depressed mood; Z79.899 Other long term (current) drug therapy; Z59.86 Financial insecurity
CPT/HCPCS: 80156; 80184; 80306; 81003; 82075; 87636; 99285

== ENCOUNTER 2024-12-25 18:23 | Inpatient (IN) | payer MEDICARE, OTHER ==
[2024-12-25] MEDS ORDERED: NALOXONE 0.4 MG/ML 1 ML VIAL IV PRN (18:30)
[2024-12-25] MEDS ORDERED: LORazepam 1 MG TAB PO PRN (18:36)
[2024-12-25] MEDS ORDERED: MAGNESIUM HYDROXIDE 2,400 MG/30 ML CUP PO PRN (18:36)
[2024-12-25] MEDS ORDERED: MAG HYDROX/AL HYDROX/SIMETH 30 ML CUP PO PRN (18:36)
[2024-12-25] MEDS ORDERED: haloperidoL 5 MG TAB PO PRN (18:36)
[2024-12-25] MEDS ORDERED: ACETAMINOPHEN TAB 325 MG TAB PO PRN (18:36)
[2024-12-25 20:21] LABS: Basophils % (A) 0 %; Eosinophils # (A) 0.1 k/uL (0-0.7); Eosinophils % (A) 1 %; HCT 45.2 % (39.0-53.0); HGB 15.1 gm/dL (13.0-17.5); Lymphocytes # (A) 1.2 k/uL (1.0-4.8); Lymphocytes % (A) 16 %; MCH 31.2 pg (25.0-35.0); MCHC 33.3 g/dL (31.0-37.0); MCV 93.7 fL (80.0-100.0); Mean Platelet Volume 6.8; Monocytes # (A) 0.3 k/uL (0-1.0); Monocytes % (A) 4 %; Neutrophils # (A) 5.7 k/uL (1.3-7.7); Neutrophils % (A) 78 %; Platelet Count 180 k/uL (150-450); RBC 4.83 m/uL (4.30-5.90); RDW 12.5 % (11.5-15.5); WBC 7.3 k/uL (3.8-10.6)
[2024-12-25 20:27] LABS: ALT 14 U/L (4-49); AST 20 U/L (17-59); African American GFR (CKD) >90 (>60 ml/min/1.73 sqM); Albumin 4.8 g/dL (3.5-5.0); Albumin/Globulin Ratio 1.7; Alkaline Phosphatase 118 U/L (38-126); Anion Gap 10 mmol/L; Blood Urea Nitrogen 13 mg/dL (9-20); Calcium 9.8 mg/dL (8.4-10.2); Carbon Dioxide 21 mmol/L (22-30); Chloride 107 mmol/L (98-107); Globulin 2.9 g/dL; Glucose 103 mg/dL (74-99); Magnesium 2.1 mg/dL (1.6-2.3); Non-African American GFR(CKD) >90 (>60 ml/min/1.73 sqM); Phosphorus 1.8 mg/dL (2.5-4.5); Potassium 3.9 mmol/L (3.5-5.1); Sodium 138 mmol/L (137-145); Total Bilirubin 0.5 mg/dL (0.2-1.3); Total Protein 7.7 g/dL (6.3-8.2)
[2024-12-25 20:35] LABS: INR 1.1 (<1.2)
[2024-12-25] MEDS ORDERED: LORazepam 2 MG/ML INJ IV PRN (21:12)
[2024-12-25] MEDS: ZONISAMIDE 100 MG CAP PO SCH (22:57)
[2024-12-25] MEDS: MONTELUKAST 10 MG TAB PO SCH (22:57)
[2024-12-25] MEDS: lamoTRIgine 100 MG TAB PO SCH (22:57)
[2024-12-25] MEDS: carBAMazepine 200 MG TAB PO SCH (22:57)
[2024-12-25] MEDS: traZODone HCL 50 MG TAB PO SCH (23:44)
--- NOTE | 2024-12-26 01:24 | CT ---
EXAM: CT Head Without Intravenous Contrast CLINICAL HISTORY: ITS.REASON CT Reason: seizure TECHNIQUE: Axial computed tomography images of the head/brain without intravenous contrast. CTDI is 49.2 mGy and DLP is 1200.4 mGy-cm. This CT exam was performed using one or more of the following dose reduction techniques: automated exposure control, adjustment of the mA and/or kV according to patient size, and/or use of iterative reconstruction technique. COMPARISON: No relevant prior studies available. FINDINGS: Brain: No hemorrhage or mass effect. Ventricles: No hydrocephalus. Bones/joints: Unremarkable. Soft tissues: Unremarkable. Sinuses: No air fluid level. Mastoid air cells: Clear. IMPRESSION: No acute hemorrhage, hydrocephalus, or mass effect.
[2024-12-26 02:31] VITALS: PULSE 82
[2024-12-26] MEDS: IBUPROFEN 600 MG TAB PO PRN (04:43)
--- NOTE | 2024-12-26 07:48 | P.HPIM ---
History of Present Illness H&P Date: 12/26/24 History of present illness; patient 34-year-old gentleman with past medical history significant for seizure disorder, borderline personality disorder who was initially admitted to inpatient psych on 12/25 for suicidal l ideations and depression. Patient was on inpatient psych when patient had a seizure-like activity, apparently patient was sitting in the [place], when he started shaking uncontrollably, it lasted for 2 minutes. Seizure-like activity was witnessed by nursing staff, following that patient was postictal. Patient was given 2 mg of Ativan with resolution of the seizure. On-call hospitalist was paged and patient was admitted to inpatient. Initial lab work done showed WBC 7.3, hemoglobin 13.1, sodium 138, potassium 3.9, carbon is a 21, BUN 13, creatinine 0.95, phosphorus 1.8 magnesium 2.1 AST 20, ALT 14 CT head done showed no acute intracranial process Patient admitted to internal medicine service REVIEW OF SYSTEMS: CONSTITUTIONAL: No fever, no malaise, no fatigue. HEENT: No recent visual problems or hearing problems. Denied any sore throat. CARDIOVASCULAR: No chest pain, orthopnea, PND, no palpitations, no syncope. PULMONARY: No shortness of breath, no cough, no hemoptysis. GASTROINTESTINAL: No diarrhea, no nausea, no vomiting, no abdominal pain. NEUROLOGICAL: No headaches, no weakness, no numbness. HEMATOLOGICAL: Denies any bleeding or petechiae. GENITOURINARY: Denies any burning micturition, frequency, or urgency. MUSCULOSKELETAL/RHEUMATOLOGICAL: Denies any joint pain, swelling, or any muscle pain. ENDOCRINE: Denies any polyuria or polydipsia. The rest of the 14-point review of systems is negative. PHYSICAL EXAMINATION: GENERAL: The patient is alert and oriented x3, lethargic HEENT: Pupils are round and equally reacting to light. EOMI. No scleral icterus. No conjunctival pallor. Normocephalic, atraumatic. No pharyngeal erythema. No thyromegaly. CARDIOVASCULAR: S1 and S2 present. No murmurs, rubs, or gallops. PULMONARY: Chest is clear to auscultation, no wheezing or crackles. ABDOMEN: Soft, nontender, nondistended, normoactive bowel sounds. No palpable organomegaly. MUSCULOSKELETAL: No joint swelling or deformity. EXTREMITIES: No cyanosis, clubbing, or pedal edema. NEUROLOGICAL: Gross neurological examination did not reveal any focal deficits. SKIN: No rashes. Assessment and plan Seizures Major depression Suicidal ideation Borderline personality disorder Monitor vital signs Monitor CBC Monitor CMP Elopement precaution Suicide precautions Ordered neurochecks Ordered EEG Continue Lamictal 20 mg twice daily Continue Tegretol 200 mg twice daily Continue phenobarb Psychiatry consulted Neurology consulted Labs and medication were reviewed.. Continue same treatment. Continue with symptomatic treatment. Resume home medication. Monitor labs and vitals. DVT and GI prophylaxis. Further recommendations as per clinical course of the patient Dictation was produced using [employer] dictation software. please excuse any g rammatical, word or spelling errors. Past Medical History Past Medical History: GERD/Reflux, Seizure Disorder, Skin Disorder Additional Past Medical History / Comment(s): has history of epilepsy, hx grand mal seizures since childhood, migraines, acne History of Any Multi-Drug Resistant Organisms: None Reported Past Surgical History: Adenoidectomy, Appendectomy, Cholecystectomy, Tons illectomy Additional Past Surgical History / Comment(s): oral surgery. I & D CYST ON BACK 08/19/22, egd Past Anesthesia/Blood Transfusion Reactions: Previous Problems w/ Anesthesia Additional Past Anesthesia/Blood Transfusion Reaction / Comment(s): SLOW TO WAKE FROM ANESTHESIA", no blood transfusion Past Psychological History: ADD/ADHD, Anxiety, Bipolar, Depression Additional Psychological History / Comment(s): per pt-he was in special education classes thru out school(has some intellectual disabilty), speech impediment. able to read and write fine. hx cluster b disorder Smoking Status: Never smoker Past Alcohol Use History: Rare Additional Past Alcohol Use History / Comment(s): Pt states occasional alcohol Past Drug Use History: None Reported Additional Drug Use History / Comment(s): Denies any illicit drugs or any marijuana use - Past Family History Mother Family Medical History: Cancer Additional Family Medical History / Comment(s): breast cancer Medications and Allergies Home Medications Medication Instructions Recorded Confirmed Type lamoTRIgine [LaMICtal] 200 mg PO BID #0 06/28/20 12/25/24 Rx carBAMazepine [TEGretol] 200 mg PO BID 10/10/20 12/25/24 History PHENobarbitaL [Luminal] 129.6 mg PO HS 08/28/22 12/25/24 History Zonisamide [Zonegran] 400 mg PO HS 08/28/22 12/25/24 History Montelukast [Singulair] 10 mg PO HS 09/16/24 12/25/24 History Cariprazine HCl [Vraylar] 4.5 mg PO HS 12/08/24 12/25/24 History Omeprazole [PriLOSEC] 20 mg PO BID 12/08/24 12/25/24 History Venlafaxine HCl ER [Effexor XR] 150 mg PO DAILY 14 Days #14 cap 12/15/24 12/25/24 Rx traZODone HCL [Desyrel] 150 mg PO HS 14 Days #14 tab 12/15/24 12/25/24 Rx Allergies Allergy/AdvReac Type Severity Reaction Status Date / Time No Known Allergies Allergy Verified 12/24/24 19:04 Physical Exam Vitals: Vital Signs Temp Pulse Resp BP Pulse Ox 12/26/24 00:55 98.4 F 82 18 122/75 96 12/25/24 19:22 98.0 F 71 17 106/68 96 Intake and Output 12/25/24 12/26/24 12/26/24 22:59 06:59 14:59 Intake Total 240 Balance 240 Intake: Oral 240 Other: # Voids 1 Weight 79.197 kg 79 kg Results CBC & Chem 7: 12/25/24 19:52 12/25/24 19:52 Labs: Abnormal Lab Results - Last 24 Hours (Table) 12/25/24 Range/Units 19:52 Carbon Dioxide 21 L (22-30) mmol/L Glucose 103 H (74-99) mg/dL Phosphorus 1.8 L (2.5-4.5) mg/dL Thrombosis Risk Factor Assmnt - Choose All That Apply Any of the Below Risk Factors Present?: No Other Risk Factors: No Other congenital or acquired thrombophilia - If yes, enter type in comment: No Thrombosis Risk Factor Assessment Level: Very Low Risk
[2024-12-26 08:03] VITALS: BP 102/61; RESP 17; TEMP 97.4
[2024-12-26] MEDS: VENLAFAXINE HCL ER 150 MG CAP PO SCH (08:04)
[2024-12-26] MEDS: PANTOPRAZOLE 40 MG TABLET PO SCH (08:04)
[2024-12-26] MEDS ORDERED: LORazepam 1 MG/0.5 ML VIAL IV PRN (08:39)
--- NOTE | 2024-12-26 13:45 | P.CN ---
Psychiatric Consult - . Consult date: 12/26/24 Consult:: 12/26/24 13:38 IDENTIFYING DATA: This patient is a 34-year-old male, unemployed living with and son REASON FOR REFERRAL: Psychiatry was consulted for SI HISTORY OF PRESENT ILLNESS: The patient presented to the hospital with suicidal ideations with a plan and was ultimately admitted to the inpatient psych unit. There patient had a witnessed 2-minute tonic-clonic seizure and ultimately received Ativan 2 mg IM and was transferred to the medical floor with neurology consulted and EEG ordered. Patient seen and evaluated in his room with sitter at bedside. Patient reports feeling better, reports his suicidal ideations are improved, denying any plan or intent. He denied any biting of his tongue or loss of urine. Patient reportedly does not want to get an EEG or see the neurologist as he has an outpatient neurologist whom he follows a will likely order these tests at that time however he was encouraged to consider this test while in the hospital given his recent seizure. Patient's last seizure was back in September 2024. He feels as though his seizure was due to not receiving his seizure meds in time while he was in the ED. Patient follows with [facility] regularly and has a psychiatrist and therapist. Given patient's suicidal ideations returning to baseline with no plan or intent he was encouraged to continue his current medications and to follow-up with [facility] for further adjustments to which patient agreed. At this time patient denies any homicidal ideations, intent or plan. Patient denies any auditory, visual hallucinations and denies any paranoia or delusions. Patients admits to using no substances. PAST PSYCHIATRIC HISTORY: Patient has a history of adjustment disorder, borderline personality disorder. Patient is currently prescribed Effexor XR 150 mg daily, trazodone 150 mg at bedtime, Vraylar 4.5 mg daily. Patient has several inpatient hospitalizations most recent being at this facility in November 2024 x2. Patient follows with [facility], has a therapist and psychiatrist. Patient reports 1 suicide attempt back in September 2024. PAST MEDICAL HISTORY: Seizures. ALLERGIES: as per EMR. CHEMICAL DEPENDENCY HISTORY: as per HPI. FAMILY PSYCHIATRIC/SUBSTANCE USE HISTORY: Denies SOCIAL HISTORY: Patient was born in [place] and raised in [place]. 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 He is and has 1 son and lives with them. MENTAL STATUS EXAM: General Appearance: Patient appears to be stated age is alert, pleasant, and cooperative. Patient appears to have fair hygiene and grooming wearing hospital gown with fair eye contact. He is wearing glasses Behavior: Patient is calmly lying in bed without any agitated behavior. Speech: Patient's speech is fluent and nonpressured. Mood/Affect: Patient reports their mood is "better", affect is congruent Suicidality/Homicidality: Patient denies having any homicidal ideation intent or plan. He reports suicidal ideations, lessening in intensity, denying any plan or intent Perceptions: Patient denies any visual hallucinations and denies any auditory hallucinations Though content/process: There is no evidence of any delusional thought content and thought process is linear and logical. Memory and concentration: AOX3, grossly intact for the purposes of this session. Can spell "WORLD" backwards Judgment and insight: Poor IMPRESSIONS: Adjustment disorder with depressed and anxious mood Borderline personality disorder PLAN: -At this time patient DOES NOT meet criteria for inpatient psychiatric admission. -Would recommend the following medication changes/additions: Continue his current psychotropic medications including Effexor XR 150 mg daily, trazodone 50 mg at bedtime, Vraylar 4.5 mg daily. Patient follows with [facility] and sees his outpatient provider and therapist regularly. Patient encouraged to follow-up with them for further adjustments as his suicidal ideations are back at baseline he has improved. -Can discontinue 1:1 sitter at this time as patient is not currently an imminent threat to themselves -Communicated plan to patient's nurse -Psychiatry will sign off at this time -Please contact with any questions.
== END 2024-12-26 13:49 | disposition left against medical advice (07) | DRG 882 ==
LOC: UNDOADMIN 18:47 → 4SSUR 18:47
PROVIDERS: ADMIT Internal Medicine; ATTEND Internal Medicine
DX: F43.23 Adjustment disorder with mixed anxiety and depressed mood (principal); R45.851 Suicidal ideations; G40.409 Other generalized epilepsy and epileptic syndromes, not intractable, without status epilepticus; F60.3 Borderline personality disorder; R47.9 Unspecified speech disturbances; Z79.899 Other long term (current) drug therapy
CPT/HCPCS: 70450; 80053; 83735; 84100; 85025; 85610

== ENCOUNTER 2024-12-29 21:50 | Emergency (ER) | payer MEDICARE, OTHER ==
[2024-12-29 21:54] VITALS: TEMP 97.9
--- NOTE | 2024-12-29 22:10 | ED ---
Psych HPI - General Chief Complaint: Psychiatric Symptoms Stated Complaint: Petition Time Seen by Provider: 12/29/24 21:55 Source: patient, police, RN notes reviewed Mode of arrival: ambulatory - Related Data Home Medications Medication Instructions Recorded Confirmed carBAMazepine [TEGretol] 200 mg PO BID 10/10/20 12/25/24 PHENobarbitaL [Luminal] 129.6 mg PO HS 08/28/22 12/25/24 Zonisamide [Zonegran] 400 mg PO HS 08/28/22 12/25/24 Montelukast [Singulair] 10 mg PO HS 09/16/24 12/25/24 Cariprazine HCl [Vraylar] 4.5 mg PO HS 12/08/24 12/25/24 Omeprazole [PriLOSEC] 20 mg PO BID 12/08/24 12/25/24 Previous Rx's Medication Instructions Recorded lamoTRIgine [LaMICtal] 200 mg PO BID #0 06/28/20 Venlafaxine HCl ER [Effexor XR] 150 mg PO DAILY 14 Days #14 cap 12/15/24 traZODone HCL [Desyrel] 150 mg PO HS 14 Days #14 tab 12/15/24 Allergies Allergy/AdvReac Type Severity Reaction Status Date / Time No Known Allergies Allergy Verified 12/29/24 21:54 Review of Systems ROS Statement: Those systems with pertinent positive or pertinent negative responses have been documented in the HPI. ROS Other: All systems not noted in ROS Statement are negative. Past Medical History Past Medical History: GERD/Reflux, Seizure Disorder, Skin Disorder Additional Past Medical History / Comment(s): has history of epilepsy, hx grand mal seizures since childhood, migraines, acne History of Any Multi-Drug Resistant Organisms: None Reported Past Surgical History: Adenoidectomy, Appendectomy, Cholecystectomy, Tonsillectomy Additional Past Surgical History / Comment(s): oral surgery. I & D CYST ON BACK 08/19/22, egd Past Anesthesia/Blood Transfusion Reactions: Previous Problems w/ Anesthesia Additional Past Anesthesia/Blood Transfusion Reaction / Comment(s): SLOW TO WAKE FROM ANESTHESIA", no blood transfusion Past Psychological History: ADD/ADHD, Anxiety, Bipolar, Depression Smoking Status: Never smoker Past Alcohol Use History: Rare Past Drug Use History: None Reported - Past Family History Mother Family Medical History: Cancer Additional Family Medical History / Comment(s): breast cancer General Exam Limitations: no limitations General appearance: alert, in no apparent distress Neck exam: Present: normal inspection. Absent: tenderness, meningismus, lymphadenopathy Respiratory exam: Present: normal lung sounds bilaterally. Absent: respiratory distress, wheezes, rales, rhonchi, stridor Cardiovascular Exam: Present: regular rate, normal rhythm, normal heart sounds. Absent: systolic murmur, diastolic murmur, rubs, gallop, clicks GI/Abdominal exam: Present: soft, normal bowel sounds. Absent: distended, tenderness, guarding, rebound, rigid Extremities exam: Present: normal inspection, full ROM, normal capillary refill. Absent: tenderness, pedal edema, joint swelling, calf tenderness Psychiatric exam: Present: normal mood, flat affect. Absent: normal affect, suicidal ideation Course Vital Signs 12/29/24 21:51 Temperature 97.9 F Pulse Rate 70 Respiratory 18 Rate Blood Pressure 117/84 O2 Sat by Pulse 100 Oximetry Medical Decision Making - Medical Decision Making Was pt. sent in by a medical professional or institution ([facility], [employer], urgent care, hospital, or [facility]...) When possible be specific @ -No Did you speak to anyone other than the patient for history (EMS, parent, family, police, friend...)? What history was obtained from this source @ -No Did you review nursing and triage notes (agree or disagree)? Why? @ -I reviewed and agree with nursing and triage notes Were old charts reviewed (outside hosp., previous admission, EMS record, old EKG, old radiological studies, urgent care reports/EKG's, [facility] records)? Report findings @ -No old charts were reviewed Differential Diagnosis (chest pain, altered mental status, abdominal pain women, abdominal pain men, vaginal bleeding, weakness, fever, dyspnea, syncope, headache, dizziness, GI bleed, back pain, seizure, CVA, palpatations, mental health, musculoskeletal)? @ -Differential Mental Health Depression, anxiety, bipolar, psychosis, schizophrenia, borderline personality, situational depression, adjustment disorder, behavioral disorder, brain tumor, malingering, substance abuse, encephalopathy, medication reaction, dementia, hypothyroidism, degenerative neurologic disorder, lupus.... This is not meant to be all-inclusive list EKG interpreted by me (3pts min.). @ -None X-rays interpreted by me (1pt min.). @ -None done CT interpreted by me (1pt min.). @ -None done U/S interpreted by me (1pt. min.). @ -None done What testing was considered but not performed or refused? (CT, X-rays, U/S, labs)? Why? @ -None What meds were considered but not given or refused? Why? @ -None Did you discuss the management of the patient with other professionals (professionals i.e. DrMary, PA, [employer], lab, RT, psych nurse, addiction social worker, regional guide, teacher, evp and chief operating officer, case monitor)? Give summary @ -No Was smoking cessation discussed for >3mins.? @ -No Was critical care preformed (if so, how long)? @ -No Were there social determinants of health that impacted care today? How? (Homelessness, low income, unemployed, alcoholism, drug addiction, transportation, low edu. Level, literacy, decrease access to med. care, intermediate, rehab)? @ -No Was there de-escalation of care discussed even if they declined (Discuss DNR or withdrawal of care, Hospice)? DNR status @ -No What co-morbidities impacted this encounter? (DM, HTN, Smoking, COPD, CAD, Cancer, CVA, ARF, Chemo, Hep., AIDS, mental health diagnosis, sleep apnea, morbid obesity)? @ -None Was patient admitted / discharged? Hospital course, mention meds given and route, prescriptions, significant lab abnormalities, going to OR and other pertinent info. @ -Discharge. 34-year-old male presenting with homicidal ideation. Patient is well-appearing. EPS recommends that patient follow-up with psychiatrist and is provided a safety plan. discussed with Dr. Stafford Undiagnosed new problem with uncertain prognosis? @ -No Drug Therapy requiring intensive monitoring for toxicity (Heparin, Nitro, Insulin, Cardizem)? @ -No Were any procedures done? @ -No Diagnosis/symptom? @ -depression Acute, or Chronic, or Acute on Chronic? @ -chronic Uncomplicated (without systemic symptoms) or Complicated (systemic symptoms)? @ -complicated Side effects of treatment? @ -No Exacerbation, Progression, or Severe Exacerbation? @ -No Poses a threat to life or bodily function? How? (Chest pain, [place], [place], pneumonia, PE, COPD, DKA, ARF, appy, cholecystitis, CVA, Diverticulitis, Homicidal, Suicidal, threat to staff... and all critical care pts) @ -No Disposition Clinical Impression: Depression Disposition: HOME SELF-CARE Condition: Stable Instructions (If sedation given, give patient instructions): Depression (ED) Additional Instructions: Please return to the Emergency Department if symptoms worsen or any other concerns. Is patient prescribed a controlled substance at d/c from ED?: No Referrals: Ana Maria Samson MD [Primary Care Provider] - 1-2 days Time of Disposition: 23:41
[2024-12-30 00:03] VITALS: BP 121/81; PULSE 76; RESP 17
== END 2024-12-30 00:03 | disposition home or self-care (01) ==
LOC: EC 21:50
DX: F32.A Depression, unspecified (principal)
CPT/HCPCS: 82075; 99285

== ENCOUNTER 2025-01-05 21:37 | Emergency (ER) | payer MEDICAID, MEDICARE ==
[2025-01-05 21:49] VITALS: RESP 16; TEMP 97.7
[2025-01-06 01:42] LABS: Influenza A Not Detected (Not Detectd); Influenza B Not Detected (Not Detectd); RSV Not Detected (Not Detectd)
[2025-01-06 02:31] LABS: Amphetamine Screen,Urine Not Detected (NotDetected); Barbiturate Screen,Urine Detected (NotDetected); Benzodiazepines Screen,Urine Not Detected (NotDetected); Cocaine Screen,Urine Not Detected (NotDetected); Methadone Screen, Urine Not Detected (NotDetected); Opiate Screen,Urine Not Detected (NotDetected); Oxycodone Screen, Urine Not Detected (NotDetected); Phencyclidine Screen,Urine Not Detected (NotDetected); Tricyclic Antidepressant,Urine Not Detected (NotDetected); Urn Cannabinoid Scrn Not Detected (NotDetected)
--- NOTE | 2025-01-06 02:31 | ED ---
Psych HPI - General Chief Complaint: Psychiatric Symptoms Stated Complaint: petition Time Seen by Provider: 01/06/25 00:12 Source: patient Mode of arrival: ambulatory - History of Present Illness Initial Comments: This patient is a 34-year-old man with history of psychiatric disease who arrives to have evaluation after he was feeling more depressed than usual and having thoughts of running into traffic. MD Complaint: suicidal ideation, feels depressed -: hour(s) Associated Psychiatric Symptoms: depression, suicidal ideation History of same: Yes Quality: getting worse Improves With: none Worsens With: none Context: significant life stressor Associated Symptoms: denies other symptoms - Related Data Home Medications Medication Instructions Recorded Confirmed carBAMazepine [TEGretol] 200 mg PO BID 10/10/20 12/25/24 PHENobarbitaL [Luminal] 129.6 mg PO HS 08/28/22 12/25/24 Zonisamide [Zonegran] 400 mg PO HS 08/28/22 12/25/24 Montelukast [Singulair] 10 mg PO HS 09/16/24 12/25/24 Cariprazine HCl [Vraylar] 4.5 mg PO HS 12/08/24 12/25/24 Omeprazole [PriLOSEC] 20 mg PO BID 12/08/24 12/25/24 Previous Rx's Medication Instructions Recorded lamoTRIgine [LaMICtal] 200 mg PO BID #0 06/28/20 Venlafaxine HCl ER [Effexor XR] 150 mg PO DAILY 14 Days #14 cap 12/15/24 traZODone HCL [Desyrel] 150 mg PO HS 14 Days #14 tab 12/15/24 Allergies Allergy/AdvReac Type Severity Reaction Status Date / Time No Known Allergies Allergy Verified 01/06/25 18:50 Review of Systems ROS Statement: Those systems with pertinent positive or pertinent negative responses have been documented in the HPI. ROS Other: All systems not noted in ROS Statement are negative. Constitutional: Denies: fever, chills Respiratory: Denies: cough, dyspnea Cardiovascular: Denies: chest pain, palpitations Gastrointestinal: Denies: abdominal pain, vomiting, diarrhea Musculoskeletal: Denies: back pain Skin: Denies: rash Neurological: Denies: headache, weakness Psychiatric: Reports: depression, suicidal thoughts. Denies: auditory hallucinations, visual hallucinations, homicidal thoughts Past Medical History Past Medical History: GERD/Reflux, Seizure Disorder, Skin Disorder Additional Past Medical History / Comment(s): has history of epilepsy, hx grand mal seizures since childhood, migraines, acne History of Any Multi-Drug Resistant Organisms: None Reported Past Surgical History: Adenoidectomy, Appendectomy, Cholecystectomy, Tonsillectomy Additional Past Surgical History / Comment(s): oral surgery. I & D CYST ON BACK 08/19/22, egd Past Anesthesia/Blood Transfusion Reactions: Previous Problems w/ Anesthesia Additional Past Anesthesia/Blood Transfusion Reaction / Comment(s): SLOW TO WAKE FROM ANESTHESIA", no blood transfusion Past Psychological History: ADD/ADHD, Anxiety, Bipolar, Depression Smoking Status: Never smoker Past Alcohol Use History: Rare Past Drug Use History: None Reported - Past Family History Mother Family Medical History: Cancer Additional Family Medical History / Comment(s): breast cancer General Exam Limitations: no limitations General appearance: alert, in no apparent distress Head exam: Present: atraumatic, normocephalic Eye exam: Present: normal appearance. Absent: scleral icterus, conjunctival injection Neck exam: Present: normal inspection Respiratory exam: Present: normal lung sounds bilaterally. Absent: respiratory distress, wheezes, rales, rhonchi, stridor, accessory muscle use Cardiovascular Exam: Present: regular rate, normal rhythm, normal heart sounds. Absent: systolic murmur, diastolic murmur, rubs, gallop GI/Abdominal exam: Present: soft. Absent: distended, tenderness, guarding Extremities exam: Present: normal inspection, normal capillary refill Neurological exam: Present: alert Psychiatric exam: Present: suicidal ideation. Absent: agitated, anxious, flat affect, manic, homicidal ideation Skin exam: Present: warm, dry, intact, normal color. Absent: rash Course Vital Signs 01/05/25 01/06/25 21:46 02:46 Temperature 97.7 F 97.7 F Pulse Rate 85 76 Respiratory 16 16 Rate Blood Pressure 123/84 128/75 O2 Sat by Pulse 97 98 Oximetry Medical Decision Making - Medical Decision Making Was pt. sent in by a medical professional or institution (, PA, RIGGER, urgent care, hospital, or senior living...) When possible be specific @ -Differential Mental Health Depression, anxiety, bipolar, psychosis, schizophrenia, borderline personality, situational depression, adjustment disorder, behavioral disorder, brain tumor, malingering, substance abuse, encephalopathy, medication reaction, dementia, hypothyroidism, degenerative neurologic disorder, lupus.... This is not meant to be all-inclusive list Did you speak to anyone other than the patient for history (EMS, parent, family, police, friend...)? What history was obtained from this source @ -[No] Did you review nursing and triage notes (agree or disagree)? Why? @ -[I reviewed and agree with nursing and triage notes] Were old charts reviewed (outside hosp., previous admission, EMS record, old EKG, old radiological studies, urgent care reports/EKG's, senior living records)? Report findings @ -[No old charts were reviewed] Differential Diagnosis (chest pain, altered mental status, abdominal pain women, abdominal pain men, vaginal bleeding, weakness, fever, dyspnea, syncope, headache, dizziness, GI bleed, back pain, seizure, CVA, palpatations, mental health, musculoskeletal)? @ -[not applicable] EKG interpreted by me (3pts min.). @ -[As above] X-rays interpreted by me (1pt min.). @ -[None done] CT interpreted by me (1pt min.). @ -[None done] U/S interpreted by me (1pt. min.). @ -[None done] What testing was considered but not performed or refused? (CT, X-rays, U/S, labs)? Why? @ -[None] What meds were considered but not given or refused? Why? @ -[None] Did you discuss the management of the patient with other professionals (professionals i.e. , PA, RIGGER, lab, RT, psych nurse, clinical social worker, cigar maker, teacher, [employer] senior officer, case assembler)? Give summary @ -[Case discussed with EPS personnel who saw the patient, discussed with psychiatrist and formulated safety plan. Was smoking cessation discussed for >3mins.? @ -[No] Was critical care preformed (if so, how long)? @ -[No] Were there social determinants of health that impacted care today? How? (Homelessness, low income, unemployed, alcoholism, drug addiction, transportation, low edu. Level, literacy, decrease access to med. care, group home, rehab)? @ -[No] Was there de-escalation of care discussed even if they declined (Discuss DNR or withdrawal of care, Hospice)? DNR status @ -[No] What co-morbidities impacted this encounter? (DM, HTN, Smoking, COPD, CAD, Cancer, CVA, ARF, Chemo, Hep., AIDS, mental health diagnosis, sleep apnea, morbid obesity)? @ -[None] Was patient admitted / discharged? Hospital course, mention meds given and route, prescriptions, significant lab abnormalities, going to OR and other pertinent info. @ -[Patient feeling better on reevaluation no longer having suicidal ideation, will follow-up with his outpatient provider, will return if any change. Undiagnosed new problem with uncertain prognosis? @ -[No] Drug Therapy requiring intensive monitoring for toxicity (Heparin, Nitro, Insulin, Cardizem)? @ -[No] Were any procedures done? @ -[No] Diagnosis/symptom? @ -[Acute on chronic mood disorder Acute, or Chronic, or Acute on Chronic? @ -[ Uncomplicated (without systemic symptoms) or Complicated (systemic symptoms)? @ -[ Side effects of treatment? @ -[No] Exacerbation, Progression, or Severe Exacerbation? @ -[No] Poses a threat to life or bodily function? How? (Chest pain, [place], [place], pneumonia, PE, COPD, DKA, ARF, appy, cholecystitis, CVA, Diverticulitis, Homicidal, Suicidal, threat to staff... and all critical care pts) @ -[No] All treatments are based on ideal body weight as in ED triage - Lab Data Lab Results 01/05/25 01/06/25 Range/Units 22:37 00:25 Urine Opiates Screen Not Detected (NotDetected) Ur Oxycodone Screen Not Detected (NotDetected) Urine Methadone Screen Not Detected (NotDetected) Ur Barbiturates Screen Detected H (NotDetected) U Tricyclic Antidepress Not Detected (NotDetected) Ur Phencyclidine Scrn Not Detected (NotDetected) Ur Amphetamines Screen Not Detected (NotDetected) U Methamphetamines Scrn Not Detected (NotDetected) U Benzodiazepines Scrn Not Detected (NotDetected) Urine Cocaine Screen Not Detected (NotDetected) U Marijuana (THC) Screen Not Detected (NotDetected) Influenza Type A (PCR) Not Detected (Not Detectd) Influenza Type B (PCR) Not Detected (Not Detectd) RSV (PCR) Not Detected (Not Detectd) SARS-CoV-2 (PCR) Not Detected (Not Detectd) Disposition Clinical Impression: Mood disorder Disposition: HOME SELF-CARE Condition: Good Instructions (If sedation given, give patient instructions): Mood Disorders (ED) Is patient prescribed a controlled substance at d/c from ED?: No Referrals: None,Stated [Primary Care Provider] - 1-2 days
[2025-01-06] MEDS: carBAMazepine 200 MG TAB PO STA (02:43)
[2025-01-06 02:48] VITALS: BP 128/75; PULSE 76
== END 2025-01-06 02:57 | disposition home or self-care (01) ==
LOC: EC 21:37
DX: F39 Unspecified mood [affective] disorder (principal); Z11.52 Encounter for screening for COVID-19
CPT/HCPCS: 80306; 82075; 87636; 99284

== ENCOUNTER 2025-01-06 18:40 | Emergency (ER) | payer MEDICARE, OTHER ==
[2025-01-06 18:50] VITALS: TEMP 98.5
--- NOTE | 2025-01-06 22:14 | ED ---
Psych HPI - General Chief Complaint: Psychiatric Symptoms Stated Complaint: suicidial ideations Time Seen by Provider: 01/06/25 18:50 Source: patient Mode of arrival: ambulatory - History of Present Illness Initial Comments: 34-year-old male who presents to the emergency department with depression and suicidal ideations. States that he was going to run into traffic. Patient has a history of seizures, depression. Patient has been previously hospitalized for mental health. Patient presents on his own accord. He was just discharged on January 01. He reports he has been taking all of his medications as instructed. Denies drug or alcohol use. No other alleviating, precipitating or modifying factors - Related Data Home Medications Medication Instructions Recorded Confirmed carBAMazepine [TEGretol] 200 mg PO BID 10/10/20 12/25/24 PHENobarbitaL [Luminal] 129.6 mg PO HS 08/28/22 12/25/24 Zonisamide [Zonegran] 400 mg PO HS 08/28/22 12/25/24 Montelukast [Singulair] 10 mg PO HS 09/16/24 12/25/24 Cariprazine HCl [Vraylar] 4.5 mg PO HS 12/08/24 12/25/24 Omeprazole [PriLOSEC] 20 mg PO BID 12/08/24 12/25/24 Previous Rx's Medication Instructions Recorded lamoTRIgine [LaMICtal] 200 mg PO BID #0 06/28/20 Venlafaxine HCl ER [Effexor XR] 150 mg PO DAILY 14 Days #14 cap 12/15/24 traZODone HCL [Desyrel] 150 mg PO HS 14 Days #14 tab 12/15/24 Allergies Allergy/AdvReac Type Severity Reaction Status Date / Time No Known Allergies Allergy Verified 01/06/25 18:50 Review of Systems ROS Statement: Those systems with pertinent positive or pertinent negative responses have been documented in the HPI. ROS Other: All systems not noted in ROS Statement are negative. Past Medical History Past Medical History: GERD/Reflux, Seizure Disorder, Skin Disorder Additional Past Medical History / Comment(s): has history of epilepsy, hx grand mal seizures since childhood, migraines, acne History of Any Multi-Drug Resistant Organisms: None Reported Past Surgical History: Adenoidectomy, Appendectomy, Cholecystectomy, Tonsillectomy Additional Past Surgical History / Comment(s): oral surgery. I & D CYST ON BACK 08/19/22, egd Past Anesthesia/Blood Transfusion Reactions: Previous Problems w/ Anesthesia Additional Past Anesthesia/Blood Transfusion Reaction / Comment(s): SLOW TO WAKE FROM ANESTHESIA", no blood transfusion Past Psychological History: ADD/ADHD, Anxiety, Bipolar, Depression Smoking Status: Never smoker Past Alcohol Use History: Rare Past Drug Use History: None Reported - Past Family History Mother Family Medical History: Cancer Additional Family Medical History / Comment(s): breast cancer General Exam Limitations: no limitations General appearance: alert, in no apparent distress Head exam: Present: atraumatic, normocephalic, normal inspection Eye exam: Present: normal appearance, PERRL, EOMI. Absent: scleral icterus, conjunctival injection, periorbital swelling ENT exam: Present: normal exam, mucous membranes moist Neck exam: Present: normal inspection. Absent: tenderness, meningismus, lymphadenopathy Respiratory exam: Present: normal lung sounds bilaterally. Absent: respiratory distress, wheezes, rales, rhonchi, stridor Cardiovascular Exam: Present: regular rate, normal rhythm, normal heart sounds. Absent: systolic murmur, diastolic murmur, rubs, gallop, clicks GI/Abdominal exam: Present: soft, normal bowel sounds. Absent: distended, t enderness, guarding, rebound, rigid Extremities exam: Present: normal inspection, full ROM, normal capillary refill. Absent: tenderness, pedal edema, joint swelling, calf tenderness Back exam: Present: normal inspection Neurological exam: Present: alert, oriented X3, CN II-XII intact Psychiatric exam: Present: flat affect Skin exam: Present: warm, dry, intact, normal color. Absent: rash Course Vital Signs 01/06/25 01/07/25 18:47 00:29 Temperature 98.5 F Pulse Rate 77 87 Respiratory 17 18 Rate Blood Pressure 123/81 148/92 O2 Sat by Pulse 99 100 Oximetry Medical Decision Making - Medical Decision Making Was pt. sent in by a medical professional or institution (, PA, ELECT[employer] EQUIPMENT REPAIRMEN, urgent care, hospital, or [place] [facility] facility...) When possible be specific @ -No Did you speak to anyone other than the patient for history (EMS, parent, family, police, friend...)? What history was obtained from this source @ -No Did you review nursing and triage notes (agree or disagree)? Why? @ -I reviewed and agree with nursing and triage notes Were old charts reviewed (outside hosp., previous admission, EMS record, old EKG, old radiological studies, urgent care reports/EKG's, [place] [facility] facility records)? Report findings @ -I reviewed the discharge summary from January 01 from the psychiatric floor Differential Diagnosis (chest pain, altered mental status, abdominal pain women, abdominal pain men, vaginal bleeding, weakness, fever, dyspnea, syncope, headache, dizziness, GI bleed, back pain, seizure, CVA, palpatations, mental health, musculoskeletal)? @ -Differential Mental Health Depression, anxiety, bipolar, psychosis, schizophrenia, borderline personality, situational depression, adjustment disorder, behavioral disorder, brain tumor, malingering, substance abuse, encephalopathy, medication reaction, dementia, hypothyroidism, degenerative neurologic disorder, lupus.... This is not meant to be all-inclusive list EKG interpreted by me (3pts min.). @ -Time X-rays interpreted by me (1pt min.). @ -None done CT interpreted by me (1pt min.). @ -None done U/S interpreted by me (1pt. min.). @ -None done What testing was considered but not performed or refused? (CT, X-rays, U/S, labs)? Why? @ -None What meds were considered but not given or refused? Why? @ -None Did you discuss the management of the patient with other professionals (professionals i.e. , PA, ELECT[employer] EQUIPMENT REPAIRMEN, lab, RT, psych nurse, criminal justice social worker, mine technician, teacher, hearing officer, case checker)? Give summary @ -Spoke with EPS who does evaluate the patient Was smoking cessation discussed for >3mins.? @ -No Was critical care preformed (if so, how long)? @ -No Were there social determinants of health that impacted care today? How? (Homelessness, low income, unemployed, alcoholism, drug addiction, transportation, low edu. Level, literacy, decrease access to med. care, senior care, rehab)? @ -No Was there de-escalation of care discussed even if they declined (Discuss DNR or withdrawal of care, Hospice)? DNR status @ -No What co-morbidities impacted this encounter? (DM, HTN, Smoking, COPD, CAD, Cancer, CVA, ARF, Chemo, Hep., AIDS, mental health diagnosis, sleep apnea, morbid obesity)? @ -Depression Was patient admitted / discharged? Hospital course, mention meds given and route, prescriptions, significant lab abnormalities, going to OR and other pertinent info. @ -Upon arrival patient seen and evaluated in room 14. Thorough history and physical exam was performed. Patient is made medically clear. EPS does evaluate the patient. Patient does not have any criteria for admission. He will be discharged home at this time and instructed to return for any new or worsening symptoms. Follow-up with his outpatient resources and continue taking his medications Undiagnosed new problem with uncertain prognosis? @ -No Drug Therapy requiring intensive monitoring for toxicity (Heparin, Nitro, Insulin, Cardizem)? @ -No Were any procedures done? @ -No Diagnosis/symptom? @ -Acute depression Acute, or Chronic, or Acute on Chronic? @ -Acute Uncomplicated (without systemic symptoms) or Complicated (systemic symptoms)? @ -Complicated Side effects of treatment? @ -No Exacerbation, Progression, or Severe Exacerbation? @ -No Poses a threat to life or bodily function? How? (Chest pain, [place], [place], pneumonia, PE, COPD, DKA, ARF, appy, cholecystitis, CVA, Diverticulitis, Homicidal, Suicidal, threat to staff... and all critical care pts) @ -No - Lab Data Lab Results 01/06/25 Range/Units 22:19 Urine Color Yellow Urine Appearance Cloudy (Clear) Urine pH 7.5 (5.0-8.0) Ur Specific [place] 1.020 (1.001-1.035) Urine Protein 2+ H (Negative) Urine Glucose (UA) Negative (Negative) Urine Ketones Negative (Negative) Urine Blood Negative (Negative) Urine Nitrite Negative (Negative) Urine Bilirubin Negative (Negative) Urine Urobilinogen 3.0 (<2.0) mg/dL Ur Leukocyte Esterase Negative (Negative) Urine RBC 2 (0-5) /hpf Urine WBC 3 (0-5) /hpf Urine Mucus Rare H (None) /hpf Urine Opiates Screen Not Detected (NotDetected) Ur Oxycodone Screen Not Detected (NotDetected) Urine Methadone Screen Not Detected (NotDetected) Ur Barbiturates Screen Detected H (NotDetected) U Tricyclic Antidepress Not Detected (NotDetected) Ur Phencyclidine Scrn Not Detected (NotDetected) Ur Amphetamines Screen Not Detected (NotDetected) U Methamphetamines Scrn Not Detected (NotDetected) U Benzodiazepines Scrn Not Detected (NotDetected) Urine Cocaine Screen Not Detected (NotDetected) U Marijuana (THC) Screen Not Detected (NotDetected) Disposition Clinical Impression: Depression Disposition: HOME SELF-CARE Condition: Stable Is patient prescribed a controlled substance at d/c from ED?: No Referrals: Ana Maria Samson MD [Primary Care Provider] - 1-2 days
[2025-01-06 22:52] LABS: Appearance,Urine Cloudy (Clear); Bilirubin,Urine Negative (Negative); Blood,Urine Negative (Negative); Color,Urine Yellow; Glucose,Urine (UA) Negative (Negative); Ketones,Urine Negative (Negative); Leukocyte Esterase,Urine Negative (Negative); Mucus,Urine Rare /hpf; Nitrite,Urine Negative (Negative); PH, Urine 7.5 (5.0-8.0); Protein,Urine 2+ (Negative); RBC,Urine 2 /hpf (0-5); WBC,Urine 3 /hpf (0-5)
[2025-01-06 22:53] LABS: Amphetamine Screen,Urine Not Detected (NotDetected); Barbiturate Screen,Urine Detected (NotDetected); Benzodiazepines Screen,Urine Not Detected (NotDetected); Cocaine Screen,Urine Not Detected (NotDetected); Methadone Screen, Urine Not Detected (NotDetected); Opiate Screen,Urine Not Detected (NotDetected); Oxycodone Screen, Urine Not Detected (NotDetected); Phencyclidine Screen,Urine Not Detected (NotDetected); Tricyclic Antidepressant,Urine Not Detected (NotDetected); Urn Cannabinoid Scrn Not Detected (NotDetected)
[2025-01-06] MEDS: traZODone HCL 50 MG TAB PO SCH (22:58)
[2025-01-06] MEDS: MONTELUKAST 10 MG TAB PO SCH (22:58)
[2025-01-06] MEDS: lamoTRIgine 100 MG TAB PO SCH (22:58)
[2025-01-06] MEDS: PANTOPRAZOLE 40 MG TABLET PO SCH (22:59)
[2025-01-06] MEDS: carBAMazepine 200 MG TAB PO SCH (23:38)
[2025-01-06] MEDS: ZONISAMIDE 100 MG CAP PO SCH (23:39)
[2025-01-06] MEDS: NON FORMULARY DRUG (Cariprazine Hcl [Vraylar] 4.5 MG Capsule) PO SCH (23:44)
[2025-01-07 00:30] VITALS: BP 148/92; PULSE 87; RESP 18
[2025-01-07] MEDS ORDERED: VENLAFAXINE HCL ER 150 MG CAP PO SCH (09:00)
== END 2025-01-07 00:36 | disposition home or self-care (01) ==
LOC: EC 18:40
DX: F32.A Depression, unspecified (principal)
CPT/HCPCS: 80306; 81001; 99285

== ENCOUNTER 2025-01-18 21:50 | Emergency (ER) | payer MEDICARE, OTHER ==
[2025-01-18 21:57] VITALS: RESP 18; TEMP 98.2
--- NOTE | 2025-01-18 22:16 | ED ---
Psych HPI - General Source: patient, police, RN notes reviewed Mode of arrival: ambulatory - History of Present Illness MD Complaint: suicidal ideation Onset/Timin -: days(s) Associated Psychiatric Symptoms: depression, suicidal ideation History of same: Yes Quality: constant Associated Symptoms: denies other symptoms Treatments Prior to Arrival: none If Self Harm: admits thoughts of self harm <Chance Osuna - Last Filed: 01/19/25 03:33> <Cally Pinon - Last Filed: 01/19/25 09:16> - General Chief Complaint: Psychiatric Symptoms Stated Complaint: Suicidal Ideations/Petition Time Seen by Provider: 01/18/25 22:04 - History of Present Illness Initial Comments: This is a calm and cooperative 34-year-old male with significant mental health history presenting with PD for suicidal ideation x 2 days. Patient denies any specific plan to harm self denies HI, auditory/visual hallucinations. Patient states he is taking his prescribed psychiatric medication and has a rn case manager hospice but is not speaking to a counselor/therapist. Denies use of medication other than prescribed medication as directed. PD provided petition paperwork citing patient stated he "wants to kill himself". Patient states he would like inpatient admission to [facility] in [place] (Chance Osuna) - Related Data Home Medications Medication Instructions Recorded Confirmed carBAMazepine [TEGretol] 200 mg PO BID 10/10/20 12/25/24 PHENobarbitaL [Luminal] 129.6 mg PO HS 08/28/22 12/25/24 Zonisamide [Zonegran] 400 mg PO HS 08/28/22 12/25/24 Montelukast [Singulair] 10 mg PO HS 09/16/24 12/25/24 Cariprazine HCl [Vraylar] 4.5 mg PO HS 12/08/24 12/25/24 Omeprazole [PriLOSEC] 20 mg PO BID 12/08/24 12/25/24 Previous Rx's Medication Instructions Recorded lamoTRIgine [LaMICtal] 200 mg PO BID #0 06/28/20 Venlafaxine HCl ER [Effexor XR] 150 mg PO DAILY 14 Days #14 cap 12/15/24 traZODone HCL [Desyrel] 150 mg PO HS 14 Days #14 tab 12/15/24 Allergies Allergy/AdvReac Type Severity Reaction Status Date / Time No Known Allergies Allergy Verified 01/18/25 21:57 Review of Systems ROS Other: All systems not noted in ROS Statement are negative. <Chance Osuna - Last Filed: 01/19/25 03:33> ROS Other: All systems not noted in ROS Statement are negative. <Cally Pinon - Last Filed: 01/19/25 09:16> ROS Statement: Those systems with pertinent positive or pertinent negative responses have been documented in the HPI. Past Medical History Past Medical History: GERD/Reflux, Seizure Disorder, Skin Disorder Additional Past Medical History / Comment(s): has history of epilepsy, hx grand mal seizures since childhood, migraines, acne History of Any Multi-Drug Resistant Organisms: None Reported Past Surgical History: Adenoidectomy, Appendectomy, Cholecystectomy, Tonsillectomy Additional Past Surgical History / Comment(s): oral surgery. I & D CYST ON BACK 08/19/22, egd Past Anesthesia/Blood Transfusion Reactions: Previous Problems w/ Anesthesia Additional Past Anesthesia/Blood Transfusion Reaction / Comment(s): SLOW TO WAKE FROM ANESTHESIA", no blood transfusion Past Psychological History: ADD/ADHD, Anxiety, Bipolar, Depression Smoking Status: Never smoker Past Alcohol Use History: Rare Past Drug Use History: None Reported - Past Family History Mother Family Medical History: Cancer Additional Family Medical History / Comment(s): breast cancer <Chance Osuna - Last Filed: 01/19/25 03:33> General Exam Limitations: no limitations General appearance: alert, in no apparent distress Head exam: Present: atraumatic, normocephalic, normal inspection Eye exam: Present: normal appearance, PERRL, EOMI. Absent: scleral icterus, conjunctival injection, periorbital swelling ENT exam: Present: normal exam, mucous membranes moist Neck exam: Present: normal inspection. Absent: tenderness, meningismus, lymphadenopathy Respiratory exam: Present: normal lung sounds bilaterally, decreased breath sounds. Absent: respiratory distress, wheezes, rales, rhonchi, stridor, accessory muscle use, prolonged expiratory Cardiovascular Exam: Present: regular rate, normal rhythm, normal heart sounds. Absent: systolic murmur, diastolic murmur, rubs, gallop, clicks GI/Abdominal exam: Present: soft, tenderness (Patient notes minor RLQ tenderness without guarding), normal bowel sounds, other (Negative McBurney point, Rovsing sign, Irby sign). Absent: distended, guarding, rebound, rigid Extremities exam: Present: normal inspection, full ROM, normal capillary refill. Absent: tenderness, pedal edema, joint swelling, calf tenderness Back exam: Present: normal inspection Neurological exam: Present: alert, oriented X3, CN II-XII intact Psychiatric exam: Present: depressed, flat affect, suicidal ideation Skin exam: Present: warm, dry, intact, normal color. Absent: rash <Chance Osuna - Last Filed: 01/19/25 03:33> Course Vital Signs 01/18/25 01/19/25 21:56 00:39 Temperature 98.2 F Pulse Rate 64 69 Respiratory 18 18 Rate Blood Pressure 127/83 118/79 O2 Sat by Pulse 98 98 Oximetry Medical Decision Making - Lab Data Result diagrams: 01/19/25 01:28 01/19/25 01:28 <Chance Osuna - Last Filed: 01/19/25 03:33> - Lab Data Result diagrams: 01/19/25 01:28 01/19/25 01:28 <Cally Pinon - Last Filed: 01/19/25 09:16> - Medical Decision Making Was pt. sent in by a medical professional or institution (SHAMA Darby, SCOURING MACHINE OPERATOR, urgent care, hospital, or jail...) When possible be specific @ -No Did you speak to anyone other than the patient for history (EMS, parent, family, police, friend...)? What history was obtained from this source @ -No Did you review nursing and triage notes (agree or disagree)? Why? @ -I reviewed and agree with nursing and triage notes Were old charts reviewed (outside hosp., previous admission, EMS record, old EKG, old radiological studies, urgent care reports/EKG's, jail records)? Report findings @ -No old charts were reviewed Differential Diagnosis (chest pain, altered mental status, abdominal pain women, abdominal pain men, vaginal bleeding, weakness, fever, dyspnea, syncope, headache, dizziness, GI bleed, back pain, seizure, CVA, palpatations, mental health, musculoskeletal)? @ -Differential Mental Health Depression, anxiety, bipolar, psychosis, schizophrenia, borderline personality, situational depression, adjustment disorder, behavioral disorder, brain tumor, malingering, substance abuse, encephalopathy, medication reaction, dementia, hypothyroidism, degenerative neurologic disorder, lupus.... This is not meant to be all-inclusive list EKG interpreted by me (3pts min.). @ -Not done X-rays interpreted by me (1pt min.). @ -None done CT interpreted by me (1pt min.). @ -None done U/S interpreted by me (1pt. min.). @ -None done What testing was considered but not performed or refused? (CT, X-rays, U/S, labs)? Why? @ -None What meds were considered but not given or refused? Why? @ -None Did you discuss the management of the patient with other professionals (professionals i.e. , PA, SCOURING MACHINE OPERATOR, lab, RT, psych nurse, social welfare research worker, architecture department chair, teacher, army senior officer, rn case manager hospice)? Give summary @ -No Was smoking cessation discussed for >3mins.? @ -No Was critical care preformed (if so, how long)? @ -No Were there social determinants of health that impacted care today? How? (Homelessness, low income, unemployed, alcoholism, drug addiction, transportation, low edu. Level, literacy, decrease access to med. care, fci, rehab)? @ -No Was there de-escalation of care discussed even if they declined (Discuss DNR or withdrawal of care, Hospice)? DNR status @ -No What co-morbidities impacted this encounter? (DM, HTN, Smoking, COPD, CAD, Cancer, CVA, ARF, Chemo, Hep., AIDS, mental health diagnosis, sleep apnea, morbid obesity)? @ -MDD Was patient admitted / discharged? Hospital course, mention meds given and route, prescriptions, significant lab abnormalities, going to OR and other pertinent info. @ -LIZBETH 0.0%. Urine tox screen positive for barbiturates. Spoke to EPS who advised patient will be transferred but unsure of location at this time. Additional lab work obtained with unremarkable UA, blood work and COVID test. Patient's medication reconciled and will be on standby for psychiatric inpatient transfer and admission. Discussed patient with Dr. Woods. Undiagnosed new problem with uncertain prognosis? @ -No Drug Therapy requiring intensive monitoring for toxicity (Heparin, Nitro, Insulin, Cardizem)? @ -No Were any procedures done? @ -No Diagnosis/symptom? @ -Suicidal ideation Acute, or Chronic, or Acute on Chronic? @ -Acute Uncomplicated (without systemic symptoms) or Complicated (systemic symptoms)? @ -Uncomplicated Side effects of treatment? @ -No Exacerbation, Progression, or Severe Exacerbation? @ -No Poses a threat to life or bodily function? How? (Chest pain, [place], [place], pneumonia, PE, COPD, DKA, ARF, appy, cholecystitis, CVA, Diverticulitis, Homicidal, Suicidal, threat to staff... and all critical care pts) @ -Suicidal ideation (Chance Osuna) Patient was reevaluated by EPS in the morning. Between EPS and the patient they determined that hospitalization would not be the best approach for him. He does have good follow-up with his care team at [facility]. He is currently living with his mother which takes him out of his stressful situation with his . Patient will be discharged home on the recommendation by Dr. Paul. Instructed to return for any new or worsening symptoms. Continue taking medication as directed. (Cally Pinon) - Lab Data Lab Results 01/19/25 01/19/25 01/19/25 Range/Units 00:39 00:39 01:20 WBC (4.50-10.00) 10*3/uL RBC (4.40-5.60) 10*6/uL Hgb (13.0-17.0) g/dL Hct (39.6-50.0) % MCV (80.0-97.0) fL MCH (27.0-32.0) pg MCHC (32.0-37.0) g/dL Plt Count (140-440) 10*3/uL MPV (9.5-12.2) fL Immature Gran % (Auto) % Neutrophils % % Lymphocytes % % Monocytes % % Eosinophils % % Basophils % % Immature Gran # (0.00-0.04) 10*3/uL Neutrophils # (1.80-7.70) 10*3/uL Lymphocytes # (0.90-5.00) 10*3/uL Monocytes # (0.20-1.00) 10*3/uL Eosinophils # (0.04-0.35) 10*3/uL Basophils # (0.00-0.10) 10*3/uL Sodium (137-145) mmol/L Potassium (3.5-5.1) mmol/L Chloride (98-107) mmol/L Carbon Dioxide (22-30) mmol/L Anion Gap mmol/L BUN (9-20) mg/dL Creatinine (0.66-1.25) mg/dL Est GFR (CKD-EPI)AfAm (>60 ml/min/1.73 sqM) Est GFR (CKD-EPI)NonAf (>60 ml/min/1.73 sqM) Glucose (74-99) mg/dL Calcium (8.4-10.2) mg/dL Total Bilirubin (0.2-1.3) mg/dL AST (17-59) U/L ALT (4-49) U/L Alkaline Phosphatase (38-126) U/L Total Protein (6.3-8.2) g/dL Albumin (3.5-5.0) g/dL TSH (0.465-4.680) mIU/L Urine Color Light Yellow Urine Appearance Clear (Clear) Urine pH 7.0 (5.0-8.0) Ur Specific [place] 1.017 (1.001-1.035) Urine Protein Negative (Negative) Urine Glucose (UA) Negative (Negative) Urine Ketones Negative (Negative) Urine Blood Negative (Negative) Urine Nitrite Negative (Negative) Urine Bilirubin Negative (Negative) Urine Urobilinogen <2.0 (<2.0) mg/dL Ur Leukocyte Esterase Negative (Negative) Urine Opiates Screen Not Detected (NotDetected) Ur Oxycodone Screen Not Detected (NotDetected) Urine Methadone Screen Not Detected (NotDetected) Ur Barbiturates Screen Detected H (NotDetected) U Tricyclic Antidepress Not Detected (NotDetected) Ur Phencyclidine Scrn Not Detected (NotDetected) Ur Amphetamines Screen Not Detected (NotDetected) U Methamphetamines Scrn Not Detected (NotDetected) U Benzodiazepines Scrn Not Detected (NotDetected) Urine Cocaine Screen Not Detected (NotDetected) U Marijuana (THC) Screen Not Detected (NotDetected) SARS-CoV-2 (PCR) Not Detected (Not Detectd) 01/19/25 01/19/25 Range/Units 01:28 01:28 WBC 5.33 (4.50-10.00) 10*3/uL RBC 4.17 L (4.40-5.60) 10*6/uL Hgb 13.3 (13.0-17.0) g/dL Hct 39.0 L (39.6-50.0) % MCV 93.5 (80.0-97.0) fL MCH 31.9 (27.0-32.0) pg MCHC 34.1 (32.0-37.0) g/dL Plt Count 155 (140-440) 10*3/uL MPV 8.4 L (9.5-12.2) fL Immature Gran % (Auto) 0.2 % Neutrophils % 43.8 % Lymphocytes % 45.6 % Monocytes % 7.9 % Eosinophils % 2.1 % Basophils % 0.4 % Immature Gran # 0.01 (0.00-0.04) 10*3/uL Neutrophils # 2.34 (1.80-7.70) 10*3/uL Lymphocytes # 2.43 (0.90-5.00) 10*3/uL Monocytes # 0.42 (0.20-1.00) 10*3/uL Eosinophils # 0.11 (0.04-0.35) 10*3/uL Basophils # 0.02 (0.00-0.10) 10*3/uL Sodium 139 (137-145) mmol/L Potassium 3.7 (3.5-5.1) mmol/L Chloride 107 (98-107) mmol/L Carbon Dioxide 22 (22-30) mmol/L Anion Gap 10 mmol/L BUN 15 (9-20) mg/dL Creatinine 1.01 (0.66-1.25) mg/dL Est GFR (CKD-EPI)AfAm >90 (>60 ml/min/1.73 sqM) Est GFR (CKD-EPI)NonAf >90 (>60 ml/min/1.73 sqM) Glucose 93 (74-99) mg/dL Calcium 9.5 (8.4-10.2) mg/dL Total Bilirubin 0.3 (0.2-1.3) mg/dL AST 21 (17-59) U/L ALT 12 (4-49) U/L Alkaline Phosphatase 73 (38-126) U/L Total Protein 7.0 (6.3-8.2) g/dL Albumin 4.3 (3.5-5.0) g/dL TSH 2.850 (0.465-4.680) mIU/L Urine Color Urine Appearance (Clear) Urine pH (5.0-8.0) Ur Specific [place] (1.001-1.035) Urine Protein (Negative) Urine Glucose (UA) (Negative) Urine Ketones (Negative) Urine Blood (Negative) Urine Nitrite (Negative) Urine Bilirubin (Negative) Urine Urobilinogen (<2.0) mg/dL Ur Leukocyte Esterase (Negative) Urine Opiates Screen (NotDetected) Ur Oxycodone Screen (NotDetected) Urine Methadone Screen (NotDetected) Ur Barbiturates Screen (NotDetected) U Tricyclic Antidepress (NotDetected) Ur Phencyclidine Scrn (NotDetected) Ur Amphetamines Screen (NotDetected) U Methamphetamines Scrn (NotDetected) U Benzodiazepines Scrn (NotDetected) Urine Cocaine Screen (NotDetected) U Marijuana (THC) Screen (NotDetected) SARS-CoV-2 (PCR) (Not Detectd) Disposition Is patient prescribed a controlled substance at d/c from ED?: No Time of Disposition: 01:05 - Out of Hospital Transfer - Req. Specs Out of Hospital Transfer - Requested Specifics: Psychiatric Non-ICU <Chance Osuna - Last Filed: 01/19/25 03:33> Is patient prescribed a controlled substance at d/c from ED?: No Time of Disposition: 09:14 <Cally Pinon - Last Filed: 01/19/25 09:16> Clinical Impression: Depression Disposition: HOME SELF-CARE Condition: Stable Instructions (If sedation given, give patient instructions): Depression (ED) Additional Instructions: Please follow-up with the resources you were provided and return for any new or worsening symptoms Referrals: Ana Maria Samson MD [Primary Care Provider] - 1-2 days
[2025-01-19] MEDS: NON FORMULARY DRUG (Cariprazine Hcl [Vraylar] 4.5 MG Capsule) PO SCH (00:29)
[2025-01-19] MEDS: traZODone HCL 50 MG TAB PO SCH (00:33)
[2025-01-19] MEDS: lamoTRIgine 100 MG TAB PO SCH (00:34)
[2025-01-19] MEDS: carBAMazepine 200 MG TAB PO SCH (00:34)
[2025-01-19] MEDS: MONTELUKAST 10 MG TAB PO SCH (00:34)
[2025-01-19] MEDS: ZONISAMIDE 100 MG CAP PO SCH (00:35)
[2025-01-19] MEDS: PANTOPRAZOLE 40 MG TABLET PO SCH (00:35)
[2025-01-19 00:40] VITALS: BP 118/79; PULSE 69
[2025-01-19 01:42] LABS: Basophils # (A) 0.02 10*3/uL (0.00-0.10); Basophils % (A) 0.4 %; Eosinophils # (A) 0.11 10*3/uL (0.04-0.35); Eosinophils % (A) 2.1 %; HGB 13.3 g/dL (13.0-17.0); Lymphocytes # (A) 2.43 10*3/uL (0.90-5.00); Lymphocytes % (A) 45.6 %; MCH 31.9 pg (27.0-32.0); MCHC 34.1 g/dL (32.0-37.0); MCV 93.5 fL (80.0-97.0); Mean Platelet Volume 8.4 fL (9.5-12.2); Monocytes # (A) 0.42 10*3/uL (0.20-1.00); Monocytes % (A) 7.9 %; Neutrophils # (A) 2.34 10*3/uL (1.80-7.70); Neutrophils % (A) 43.8 %; Platelet Count 155 10*3/uL (140-440); RBC 4.17 10*6/uL (4.40-5.60); RDW 12.3 % (11.5-14.5); WBC 5.33 10*3/uL (4.50-10.00)
[2025-01-19 01:51] LABS: ALT 12 U/L (4-49); AST 21 U/L (17-59); African American GFR (CKD) >90 (>60 ml/min/1.73 sqM); Albumin 4.3 g/dL (3.5-5.0); Alkaline Phosphatase 73 U/L (38-126); Anion Gap 10 mmol/L; Blood Urea Nitrogen 15 mg/dL (9-20); Calcium 9.5 mg/dL (8.4-10.2); Carbon Dioxide 22 mmol/L (22-30); Chloride 107 mmol/L (98-107); Glucose 93 mg/dL (74-99); Non-African American GFR(CKD) >90 (>60 ml/min/1.73 sqM); Potassium 3.7 mmol/L (3.5-5.1); Sodium 139 mmol/L (137-145); Total Bilirubin 0.3 mg/dL (0.2-1.3)
[2025-01-19 02:11] LABS: Appearance,Urine Clear (Clear); Bilirubin,Urine Negative (Negative); Blood,Urine Negative (Negative); Color,Urine Light Yellow; Glucose,Urine (UA) Negative (Negative); Ketones,Urine Negative (Negative); Leukocyte Esterase,Urine Negative (Negative); Nitrite,Urine Negative (Negative); Protein,Urine Negative (Negative); Specific Gravity,Urine 1.017 (1.001-1.035); Urobilinogen,Urine <2.0 mg/dL (<2.0)
[2025-01-19 03:02] LABS: Amphetamine Screen,Urine Not Detected (NotDetected); Barbiturate Screen,Urine Detected (NotDetected); Benzodiazepines Screen,Urine Not Detected (NotDetected); Cocaine Screen,Urine Not Detected (NotDetected); Methadone Screen, Urine Not Detected (NotDetected); Opiate Screen,Urine Not Detected (NotDetected); Oxycodone Screen, Urine Not Detected (NotDetected); Phencyclidine Screen,Urine Not Detected (NotDetected); Tricyclic Antidepressant,Urine Not Detected (NotDetected); Urn Cannabinoid Scrn Not Detected (NotDetected)
[2025-01-19] MEDS: VENLAFAXINE HCL ER 150 MG CAP PO SCH (09:08)
== END 2025-01-19 09:29 | disposition home or self-care (01) ==
LOC: EC 21:50
DX: F32.A Depression, unspecified (principal); R45.851 Suicidal ideations; Z11.52 Encounter for screening for COVID-19
CPT/HCPCS: 36415; 80053; 80306; 81003; 82075; 84443; 85025; 87635; 99285

== ENCOUNTER 2025-04-04 19:06 | Inpatient (IN) | payer MEDICARE, OTHER ==
--- NOTE | 2025-04-04 19:23 | ED ---
General Adult HPI - General Chief complaint: Psychiatric Symptoms Stated complaint: Suicidal Time Seen by Provider: 04/04/25 19:08 Source: EMS Mode of arrival: EMS Limitations: no limitations - History of Present Illness Initial comments: Dictation was produced using [employer] dictation software. please excuse any grammatical, word or spelling errors. Chief Complaint: 35-year-old male with suicidal ideation History of Present Illness: Patient 35-year-old male with history of psychiatric illness presents to the ER for suicidal ideation. Patient has been suicidal for 2 weeks. He states that he told police that if he goes home today he will kill himself. States that he is upset about his parents. Denies any physical complaints. The ROS documented in this emergency department record has been reviewed and confirmed by me. Those systems with pertinent positive or negative responses have been documented in the HPI. All other systems are other negative and/or noncontributory. - Related Data Home Medications Medication Instructions Recorded Confirmed carBAMazepine [TEGretol] 200 mg PO BID 10/10/20 12/25/24 PHENobarbitaL [Luminal] 129.6 mg PO HS 08/28/22 12/25/24 Zonisamide [Zonegran] 400 mg PO HS 08/28/22 12/25/24 Montelukast [Singulair] 10 mg PO HS 09/16/24 12/25/24 Cariprazine HCl [Vraylar] 4.5 mg PO HS 12/08/24 12/25/24 Omeprazole [PriLOSEC] 20 mg PO BID 12/08/24 12/25/24 Previous Rx's Medication Instructions Recorded lamoTRIgine [LaMICtal] 200 mg PO BID #0 06/28/20 Venlafaxine HCl ER [Effexor XR] 150 mg PO DAILY 14 Days #14 cap 12/15/24 traZODone HCL [Desyrel] 150 mg PO HS 14 Days #14 tab 12/15/24 Allergies Allergy/AdvReac Type Severity Reaction Status Date / Time No Known Allergies Allergy Verified 04/04/25 19:17 Review of Systems ROS Statement: Those systems with pertinent positive or pertinent negative responses have been documented in the HPI. ROS Other: All systems not noted in ROS Statement are negative. Past Medical History Past Medical History: GERD/Reflux, Seizure Disorder, Skin Disorder Additional Past Medical History / Comment(s): has history of epilepsy, hx grand mal seizures since childhood, migraines, acne History of Any Multi-Drug Resistant Organisms: None Reported Past Surgical History: Adenoidectomy, Appendectomy, Cholecystectomy, Tonsillectomy Additional Past Surgical History / Comment(s): oral surgery. I & D CYST ON BACK 08/19/22, egd Past Anesthesia/Blood Transfusion Reactions: Previous Problems w/ Anesthesia Additional Past Anesthesia/Blood Transfusion Reaction / Comment(s): SLOW TO WAKE FROM ANESTHESIA", no blood transfusion Past Psychological History: ADD/ADHD, Anxiety, Bipolar, Depression Smoking Status: Never smoker Past Alcohol Use History: Rare Past Drug Use History: None Reported - Past Family History Mother Family Medical History: Cancer Additional Family Medical History / Comment(s): breast cancer General Exam - General Exam Comments Initial Comments: General: Well-appearing, nontoxic, no acute distress. Head: Normocephalic, atraumatic Eyes: PERRLA, EOMI ENT: Airway patent Chest: Nonlabored breathing Skin: No visual rash, normal skin tone Neuro: Alert and oriented 3 Musculoskeletal: No gross abnormalities Limitations: no limitations Course Vital Signs 04/04/25 19:09 Temperature 98.9 F Pulse Rate 88 Respiratory 19 Rate Blood Pressure 142/85 O2 Sat by Pulse 98 Oximetry Medical Decision Making - Medical Decision Making Was pt. sent in by a medical professional or institution (SHAMA Darby, ALUMINUM POLISHER, urgent care, hospital, or senior care...) When possible be specific @ -No Did you speak to anyone other than the patient for history (EMS, parent, family, police, friend...)? What history was obtained from this source @ -No Did you review nursing and triage notes (agree or disagree)? Why? @ -I reviewed and agree with nursing and triage notes Were old charts reviewed (outside hosp., previous admission, EMS record, old EKG, old radiological studies, urgent care reports/EKG's, senior care records)? Report findings @ -No old charts were reviewed Differential Diagnosis (chest pain, altered mental status, abdominal pain women, abdominal pain men, vaginal bleeding, musculoskeletal, weakness, fever, dyspnea, syncope, headache, dizziness, GI bleed, back pain, seizure, CVA, palpatations, mental health)? @ -Differential Mental Health: Depression, anxiety, bipolar, psychosis, schizophrenia, borderline personality, situational depression, adjustment disorder, behavioral disorder, brain tumor, malingering, substance abuse, encephalopathy, medication reaction, dementia, hypothyroidism, degenerative neurologic disorder, lupus.... This is not meant to be all-inclusive list EKG interpreted by me (3pts min.). @ -None done X-rays interpreted by me (1pt min.). @ -None done CT interpreted by me (1pt min.). @ -None done U/S interpreted by me (1pt. min.). @ -None done What testing was considered but not performed or refused? (CT, X-rays, U/S, labs)? Why? @ -None What meds were considered but not given or refused? Why? @ -None Was smoking cessation discussed for >3mins.? @ -No Were there social determinants of health that impacted care today? How? (Homelessness, low income, unemployed, alcoholism, drug addiction, transportation, low edu. Level, literacy, decrease access to med. care, prison, rehab)? @ -No Was there de-escalation of care discussed even if they declined (Discuss DNR or withdrawal of care, Hospice)? DNR status @ -No What co-morbidities impacted this encounter? (DM, HTN, Smoking, COPD, CAD, Cancer, CVA, ARF, Chemo, Hep., AIDS, mental health diagnosis, sleep apnea, morbid obesity)? @ -None Was patient admitted / discharged? Hospital course, mention meds given and route, prescriptions, significant lab abnormalities, going to OR and other pertinent info. @ -35-year-old male presents with suicidal ideation. Vital signs stable. Phy sical examination is benign. Patient medically cleared for EPS evaluation. Patient evaluated by EPS. Will be admitted to inpatient psych Did you discuss the management of the patient with other professionals (professionals i.e. , PA, ALUMINUM POLISHER, lab, RT, psych nurse, hospital social worker, diagram clerk, teacher, sheriff officer, bilingual patient support caseworker)? Give summary @ -Case discussed with EPS Was critical care preformed (if so, how long)? @ -No Undiagnosed new problem with uncertain prognosis? @ -No Drug Therapy requiring intensive monitoring for toxicity (Heparin, Nitro, Insulin, Cardizem)? @ -No Were any procedures done? @ -No Diagnosis/symptom? Acute, or Chronic, or Acute on Chronic? Uncomplicated (without systemic symptoms) or Complicated (systemic symptoms)? @ -Suicidal ideation Side effects of treatment? @ -No Exacerbation, Progression, or Severe Exacerbation? @ -No Poses a threat to life or bodily function? How? (Chest pain, [place], [place], pneumonia, PE, COPD, DKA, ARF, appy, cholecystitis, CVA, Diverticulitis, Homicidal, Suicidal, threat to staff... and all critical care pts) @ -yes - Lab Data Result diagrams: 04/05/25 09:08 04/05/25 09:08 Lab Results 04/04/25 04/04/25 04/04/25 Range/Units 19:20 19:20 22:30 Urine Color Colorless Urine Appearance Clear (Clear) Urine pH 6.5 (5.0-8.0) Ur Specific [place] 1.009 (1.001-1.035) Urine Protein Negative (Negative) Urine Glucose (UA) Negative (Negative) Urine Ketones Negative (Negative) Urine Blood Negative (Negative) Urine Nitrite Negative (Negative) Urine Bilirubin Negative (Negative) Urine Urobilinogen <2.0 (<2.0) mg/dL Ur Leukocyte Esterase Negative (Negative) Urine Opiates Screen Not Detected (NotDetected) Ur Oxycodone Screen Not Detected (NotDetected) Urine Methadone Screen Not Detected (NotDetected) Ur Barbiturates Screen Detected H (NotDetected) Carbamazepine (4.0-12.0) UG/ML U Tricyclic Antidepress Not Detected (NotDetected) Ur Phencyclidine Scrn Not Detected (NotDetected) Ur Amphetamines Screen Not Detected (NotDetected) U Methamphetamines Scrn Not Detected (NotDetected) Phenobarbital 17.5 (15.0-40.0) UG/ML U Benzodiazepines Scrn Not Detected (NotDetected) Urine Cocaine Screen Not Detected (NotDetected) U Marijuana (THC) Screen Not Detected (NotDetected) Influenza Type A (PCR) (Not Detectd) Influenza Type B (PCR) (Not Detectd) RSV (PCR) (Not Detectd) SARS-CoV-2 (PCR) (Not Detectd) 04/04/25 04/04/25 Range/Units 22:31 22:31 Urine Color Urine Appearance (Clear) Urine pH (5.0-8.0) Ur Specific [place] (1.001-1.035) Urine Protein (Negative) Urine Glucose (UA) (Negative) Urine Ketones (Negative) Urine Blood (Negative) Urine Nitrite (Negative) Urine Bilirubin (Negative) Urine Urobilinogen (<2.0) mg/dL Ur Leukocyte Esterase (Negative) Urine Opiates Screen (NotDetected) Ur Oxycodone Screen (NotDetected) Urine Methadone Screen (NotDetected) Ur Barbiturates Screen (NotDetected) Carbamazepine 8.1 (4.0-12.0) UG/ML U Tricyclic Antidepress (NotDetected) Ur Phencyclidine Scrn (NotDetected) Ur Amphetamines Screen (NotDetected) U Methamphetamines Scrn (NotDetected) Phenobarbital (15.0-40.0) UG/ML U Benzodiazepines Scrn (NotDetected) Urine Cocaine Screen (NotDetected) U Marijuana (THC) Screen (NotDetected) Influenza Type A (PCR) Not Detected (Not Detectd) Influenza Type B (PCR) Not Detected (Not Detectd) RSV (PCR) Not Detected (Not Detectd) SARS-CoV-2 (PCR) Not Detected (Not Detectd) Disposition Clinical Impression: Suicidal ideations Disposition: TRANSFER TO PSYCH HOSP/UNIT
[2025-04-04 21:01] LABS: Bilirubin,Urine Negative (Negative); Blood,Urine Negative (Negative); Color,Urine Colorless; Glucose,Urine (UA) Negative (Negative); Ketones,Urine Negative (Negative); Leukocyte Esterase,Urine Negative (Negative); Nitrite,Urine Negative (Negative); PH, Urine 6.5 (5.0-8.0); Protein,Urine Negative (Negative); Specific Gravity,Urine 1.009 (1.001-1.035); Urobilinogen,Urine <2.0 mg/dL (<2.0)
[2025-04-04 21:38] LABS: Barbiturate Screen,Urine Detected (NotDetected); Benzodiazepines Screen,Urine Not Detected (NotDetected); Opiate Screen,Urine Not Detected (NotDetected); Oxycodone Screen, Urine Not Detected (NotDetected); Phencyclidine Screen,Urine Not Detected (NotDetected); Tricyclic Antidepressant,Urine Not Detected (NotDetected); Urn Cannabinoid Scrn Not Detected (NotDetected)
[2025-04-04] MEDS: carBAMazepine 200 MG TAB PO SCH (22:35)
[2025-04-04] MEDS: lamoTRIgine 100 MG TAB PO SCH (22:35)
[2025-04-04] MEDS: MONTELUKAST 10 MG TAB PO SCH (22:49)
[2025-04-04] MEDS: PANTOPRAZOLE 40 MG TABLET PO SCH (22:49)
[2025-04-04] MEDS: ZONISAMIDE 100 MG CAP PO SCH (22:50)
[2025-04-04] MEDS: VRAYLAR 4.5 MG PO SCH (22:53)
[2025-04-04 23:23] LABS: RSV Not Detected (Not Detectd)
[2025-04-04] MEDS ORDERED: MAG HYDROX/AL HYDROX/SIMETH 355 ML BOTTLE PO PRN (23:38)
[2025-04-04] MEDS ORDERED: LORazepam 1 MG/0.5 ML VIAL IM PRN (23:38)
[2025-04-04] MEDS ORDERED: ACETAMINOPHEN TAB 325 MG TAB PO PRN (23:38)
[2025-04-04] MEDS ORDERED: MAGNESIUM HYDROXIDE 2,400 MG/30 ML CUP PO PRN (23:38)
[2025-04-04] MEDS ORDERED: HALOPERIDOL LACTATE 5 MG/ML 1 ML VIAL IM PRN (23:38)
[2025-04-04] MEDS ORDERED: IBUPROFEN 600 MG TAB PO PRN (23:38)
[2025-04-05] MEDS: VENLAFAXINE HCL ER 150 MG CAP PO SCH (07:44)
[2025-04-05 09:44] LABS: Basophils # (A) 0.05 10*3/uL (0.00-0.10); Basophils % (A) 0.9 %; Eosinophils # (A) 0.41 10*3/uL (0.04-0.35); Eosinophils % (A) 7.7 %; HCT 47.3 % (39.6-50.0); HGB 16.1 g/dL (13.0-17.0); Lymphocytes # (A) 1.88 10*3/uL (0.90-5.00); Lymphocytes % (A) 35.4 %; MCH 32.7 pg (27.0-32.0); MCHC 34.0 g/dL (32.0-37.0); MCV 95.9 fL (80.0-97.0); Monocytes # (A) 0.46 10*3/uL (0.20-1.00); Monocytes % (A) 8.7 %; Neutrophils # (A) 2.50 10*3/uL (1.80-7.70); Neutrophils % (A) 47.1 %; Platelet Count 179 10*3/uL (140-440); RBC 4.93 10*6/uL (4.40-5.60); RDW 12.3 % (11.5-14.5); WBC 5.31 10*3/uL (4.50-10.00)
[2025-04-05 10:06] LABS: ALT 16 U/L (4-49); AST 23 U/L (17-59); African American GFR (CKD) >90 (>60 ml/min/1.73 sqM); Albumin 5.2 g/dL (3.5-5.0); Alkaline Phosphatase 94 U/L (38-126); Anion Gap 13 mmol/L; Blood Urea Nitrogen 12 mg/dL (9-20); Calcium 10.0 mg/dL (8.4-10.2); Carbon Dioxide 25 mmol/L (22-30); Chloride 106 mmol/L (98-107); Glucose 91 mg/dL (74-99); Non-African American GFR(CKD) >90 (>60 ml/min/1.73 sqM); Potassium 4.4 mmol/L (3.5-5.1); Sodium 144 mmol/L (137-145); Total Protein 8.4 g/dL (6.3-8.2)
--- NOTE | 2025-04-05 12:35 | P.HP ---
Psychiatric H&P - . H&P Date: 04/05/25 History & Physical: Allergies Allergy/AdvReac Type Severity Reaction Status Date / Time No Known Allergies Allergy Verified 04/04/25 19:17 Vital Signs Temp 98.2 F 04/05/25 09:00 Pulse 86 04/05/25 09:00 Resp 16 04/05/25 09:00 BP 118/74 04/05/25 09:00 Pulse Ox 98 04/05/25 09:00 FiO2 Intake & Output 04/04/25 04/05/25 04/05/25 18:59 06:59 18:59 Weight 85.049 kg Laboratory Last Values WBC 5.31 10*3/uL (4.50-10.00) 04/05/25 09:08 RBC 4.93 10*6/uL (4.40-5.60) 04/05/25 09:08 Hgb 16.1 g/dL (13.0-17.0) 04/05/25 09:08 Hct 47.3 % (39.6-50.0) 04/05/25 09:08 MCV 95.9 fL (80.0-97.0) 04/05/25 09:08 MCH 32.7 pg (27.0-32.0) H 04/05/25 09:08 MCHC 34.0 g/dL (32.0-37.0) 04/05/25 09:08 Plt Count 179 10*3/uL (140-440) 04/05/25 09:08 MPV 8.7 fL (9.5-12.2) L 04/05/25 09:08 Immature Gran % (Auto) 0.2 % 04/05/25 09:08 Neutrophils % 47.1 % 04/05/25 09:08 Lymphocytes % 35.4 % 04/05/25 09:08 Monocytes % 8.7 % 04/05/25 09:08 Eosinophils % 7.7 % 04/05/25 09:08 Basophils % 0.9 % 04/05/25 09:08 Immature Gran # 0.01 10*3/uL (0.00-0.04) 04/05/25 09:08 Neutrophils # 2.50 10*3/uL (1.80-7.70) 04/05/25 09:08 Lymphocytes # 1.88 10*3/uL (0.90-5.00) 04/05/25 09:08 Monocytes # 0.46 10*3/uL (0.20-1.00) 04/05/25 09:08 Eosinophils # 0.41 10*3/uL (0.04-0.35) H 04/05/25 09:08 Basophils # 0.05 10*3/uL (0.00-0.10) 04/05/25 09:08 Sodium 144 mmol/L (137-145) 04/05/25 09:08 Potassium 4.4 mmol/L (3.5-5.1) 04/05/25 09:08 Chloride 106 mmol/L (98-107) 04/05/25 09:08 Carbon Dioxide 25 mmol/L (22-30) 04/05/25 09:08 Anion Gap 13 mmol/L 04/05/25 09:08 BUN 12 mg/dL (9-20) 04/05/25 09:08 Creatinine 0.99 mg/dL (0.66-1.25) 04/05/25 09:08 Est GFR (CKD-EPI)AfAm >90 (>60 ml/min/1.73 sqM) 04/05/25 09:08 Est GFR (CKD-EPI)NonAf >90 (>60 ml/min/1.73 sqM) 04/05/25 09:08 Glucose 91 mg/dL (74-99) 04/05/25 09:08 Calcium 10.0 mg/dL (8.4-10.2) 04/05/25 09:08 Total Bilirubin 0.5 mg/dL (0.2-1.3) 04/05/25 09:08 AST 23 U/L (17-59) 04/05/25 09:08 ALT 16 U/L (4-49) 04/05/25 09:08 Alkaline Phosphatase 94 U/L (38-126) 04/05/25 09:08 Total Protein 8.4 g/dL (6.3-8.2) H 04/05/25 09:08 Albumin 5.2 g/dL (3.5-5.0) H 04/05/25 09:08 TSH 2.590 mIU/L (0.465-4.680) 04/05/25 09:08 Urine Color Colorless 04/04/25 19:20 Urine Appearance Clear (Clear) 04/04/25 19:20 Urine pH 6.5 (5.0-8.0) 04/04/25 19:20 Ur Specific [place] 1.009 (1.001-1.035) 04/04/25 19:20 Urine Protein Negative (Negative) 04/04/25 19:20 Urine Glucose (UA) Negative (Negative) 04/04/25 19:20 Urine Ketones Negative (Negative) 04/04/25 19:20 Urine Blood Negative (Negative) 04/04/25 19:20 Urine Nitrite Negative (Negative) 04/04/25 19:20 Urine Bilirubin Negative (Negative) 04/04/25 19:20 Urine Urobilinogen <2.0 mg/dL (<2.0) 04/04/25 19:20 Ur Leukocyte Esterase Negative (Negative) 04/04/25 19:20 Urine Opiates Screen Not Detected (NotDetected) 04/04/25 19:20 Ur Oxycodone Screen Not Detected (NotDetected) 04/04/25 19:20 Urine Methadone Screen Not Detected (NotDetected) 04/04/25 19:20 Ur Barbiturates Screen Detected (NotDetected) H 04/04/25 19:20 Carbamazepine 8.1 UG/ML (4.0-12.0) 04/04/25 22:31 U Tricyclic Antidepress Not Detected (NotDetected) 04/04/25 19:20 Ur Phencyclidine Scrn Not Detected (NotDetected) 04/04/25 19:20 Ur Amphetamines Screen Not Detected (NotDetected) 04/04/25 19:20 U Methamphetamines Scrn Not Detected (NotDetected) 04/04/25 19:20 U Benzodiazepines Scrn Not Detected (NotDetected) 04/04/25 19:20 Urine Cocaine Screen Not Detected (NotDetected) 04/04/25 19:20 U Marijuana (THC) Screen Not Detected (NotDetected) 04/04/25 19:20 Influenza Type A (PCR) Not Detected (Not Detectd) 04/04/25 22:31 Influenza Type B (PCR) Not Detected (Not Detectd) 04/04/25 22:31 RSV (PCR) Not Detected (Not Detectd) 04/04/25 22:31 SARS-CoV-2 (PCR) Not Detected (Not Detectd) 04/04/25 22:31 04/05/25 12:25 IDENTIFYING DATA: Patient is a 35-year-old male, unemployed and living with his mother HPI: Patient presented to the hospital with suicidal ideations. Per EPS note, "[employer] assessed patient in Ed. Patient lying in bed, proposal lead writer asked if patient to confirm current living situation, Pt. did confirm. [employer] asked Pt if he feels safe, Pt replied "No". [employer] asked Pt why there are here, Pt replied "Suicidal, depressed the last two weeks, nobody cares, everything gets worse, I told police dispatch I would assault them if they came. If I don't get admtted here, I'll probably kill myself." [employer] asked Pt. about SI plan, Pt replied " traffic or river." When proposal lead writer asked Pt. if he has a support system, Pt replied "Not a good one." Patient seen and evaluated today. He was seen wandering away his and persistent on wanting to speak with proposal lead writer. Patient appeared to be mildly tearful today, appeared to be a bit tired. He was fairly concrete, attempting to rationalize and minimize his need for being on the unit. He claims that he called the police on himself due to feeling suicidal. Claims that he got into an argument with his mother and was "frustrated". He claims that he wants to dismiss the divorce proceedings with his however states that his mother did not agree with this and wants the divorce to continue. He states that he also has been speaking with his and she wants to dismiss the divorce as well. He states that he called his shell assembler earlier today to go ahead with him. He claims that he wants his son to grow up in a "two-parent home". He was minimizing his anxiety and anger depression at this time. Claims that his sleep and appetite are fair. Claims that he has been taking his medications regularly. Patient denies any suicidal or homicidal ideations intent or plan. At this time patient denies any auditory or visual hallucinations. Patient denies any flight of ideas racing thoughts and increased in goal directed behavior. Patient admits to using alcohol occasionally, states he only drink 1 to 2 beers per week, denies any history of withdrawals. Denies any other recreational drug use. Urine drug screen was positive for barbiturates PAST PSYCHIATRIC HISTORY: Patient has a history of adjustment disorder, borderline personality disorder. He is currently on Effexor XR 150 mg daily, trazodone 150 mg at bedtime and also on Vraylar, Tegretol and Lamictal. He has a history of seizure disorder. Patient was last hospitalized at this facility earlier this year in November 2024. Patient follows with [facility]. Patient reports 1 suicide attempt back in September 2024. PMH: as per ER note ALLERGIES: as per EMR SUBSTANCE USE HISTORY: FAMILY PSYCHIATRIC/SUBSTANCE USE HISTORY: Denies SOCIAL HISTORY: Patient was born in [place] and raised in [place]. He is and has 1 son, living with his mother. 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 MENTAL STATUS EXAM: General Appearance: Patient appears to be as a carreon, quite paranoid with a bit of dow, wearing glasses. Stated age is alert, directable, and attempts to cooperate. Patient appears to have fair hygiene and grooming. Behavior: Patient is seated without any agitated behavior. Rationalizing and superficial Speech: Patient's speech is fluent and nonpressured. Mood/Affect: Patient reports their mood is minimizing depression and anxiety, affect is congruent mildly tearful Suicidality/Homicidality: Patient denies having any homicidal ideation intent or plan. Denies any suicidal ideations, no plan Perceptions: Patient denies any visual hallucinations and denies any auditory hallucinations Though content/process: There is no evidence of any delusional thought content and thought process is linear. [place], rationalizing and minimizing Memory and concentration: AOX3, grossly intact for the purposes of this session. Can spell "WORLD" backwards Judgment and insight: Poor/impulsive STRENGTHS/WEAKNESSES: strength is that patient is resilient, follows regularly with [facility] and has family support. Weakness is that patient has poor judgment, poor coping skills and is impulsive INTELLECT: Below average IMPRESSIONS: Adjustment disorder with depressed and anxious mood Borderline personality disorder PLAN: -Patient is admitted under voluntary status to MHU for stabilization of psychiatric symptoms and safety. Patient has signed adult voluntary form and medication consent and is placed in patient's chart. -Medications : Effexor XR 150 mg daily for depression/anxiety, trazodone 150 mg at bedtime for insomnia/mood. Continue with home dose vraylar 4.5 mg nightly for mood stabilization, lamictal 200 mg bid for mood stabilization/depression. -Ativan and Haldol PRN for agitation/aggression -Patient was informed of the risks, benefits and side effects of the medication and patient verbally consented to taking the medications. Patient signed med consent form and was placed in chart. patient declined any medication information at this time. -Internal Medicine consult to perform medical evaluation and physical. -NRT -not needed as patient does not smoke -SW on board for discharge planning. Encourage patient to participate in groups to work on coping skills. 04/05/25 12:27 04/05/25 12:28
--- NOTE | 2025-04-05 15:01 | P.MDCNMH ---
History of Present Illness H&P Date: 04/05/25 This is a pleasant 35-year-old male who presented to the emergency department with suicidal ideation. Patient reports has been suicidal for over 2 weeks and brought in by EMS and had told police that if he goes home he will kill himself. Patient follows with Dr. Samson in the outpatient setting with a past medical history of GERD, seizure disorder, history of epilepsies with grand mal seizures since childhood, migraines, ADD/ADHD, anxiety/bipolar depression. Only labs performed at the time of examination was urinalysis, influenza, COVID, RSV were all negative, and urine drug screen which detected barbiturates and carbamazepine level was performed. Recommend basic labs including TSH. All medications reviewed and resumed as appropriate and patient was voluntarily admitted to [facility] for further psychiatric evaluation for suicidal ideations. REVIEW OF SYSTEMS: CONSTITUTIONAL: No fever, no malaise, no fatigue. HEENT: No recent visual problems or hearing problems. Denied any sore throat. CARDIOVASCULAR: No chest pain, orthopnea, PND, no palpitations, no syncope. PULMONARY: No shortness of breath, no cough, no hemoptysis. GASTROINTESTINAL: No diarrhea, no nausea, no vomiting, no abdominal pain. NEUROLOGICAL: No headaches, no weakness, no numbness. HEMATOLOGICAL: Denies any bleeding or petechiae. GENITOURINARY: Denies any burning micturition, frequency, or urgency. MUSCULOSKELETAL/RHEUMATOLOGICAL: Denies any joint pain, swelling, or any muscle pain. ENDOCRINE: Denies any polyuria or polydipsia. The rest of the 14-point review of systems is negative. PHYSICAL EXAMINATION: GENERAL: The patient is alert and oriented x3, not in any acute distress. Well developed, thin build, appears older than stated age HEENT: Pupils are round and equally reacting to light. EOMI. No scleral icterus. No conjunctival pallor. Normocephalic, atraumatic. No pharyngeal erythema. No thyromegaly. CARDIOVASCULAR: S1 and S2 present. No murmurs, rubs, or gallops. PULMONARY: Chest is clear to auscultation, no wheezing or crackles. ABDOMEN: Soft, thin, nontender, nondistended, normoactive bowel sounds. No palpable organomegaly. MUSCULOSKELETAL: No joint swelling or deformity. EXTREMITIES: No cyanosis, clubbing, or pedal edema. NEUROLOGICAL: Gross neurological examination did not reveal any focal deficits. Gait steady on exam SKIN: No rashes. Assessment: Depression with suicidal ideations History of ADD/ADHD, anxiety/bipolar depression GERD history History of seizure disorder with epilepsy with grand mal seizures History of migraines GI prophylaxis Full code Plan: Patient was admitted to [facility] with psychiatric evaluation for suicidal ideations Patient has history of significant depression/ADD/ADHD with bipolar and anxiety Home medications reviewed and resumed as appropriate Encourage group therapy sessions and compliance with medications and psychiatry evaluation Outpatient follow-up with [facility] Patient to follow-up with primary care provider once discharged Thank you kindly for this consultation. Please do not hesitate to contact us with concerns and questions The impression and plan of care has been dictated by Maria Isabel Fabian Nurse Pract itioner as directed. Dr. Josselin MD I have performed a history and examination and MDM of this patient, discussed the same with the dictator, and agree with the dictator's assessment and plan as written ,documented as a scribe. Based on total visit time, I have performed more than 50% of the visit. Past Medical History Past Medical History: GERD/Reflux, Seizure Disorder, Skin Disorder Additional Past Medical History / Comment(s): has history of epilepsy, hx grand mal seizures since childhood, migraines, acne History of Any Multi-Drug Resistant Organisms: None Reported Past Surgical History: Adenoidectomy, Appendectomy, Cholecystectomy, Tonsillectomy Additional Past Surgical History / Comment(s): oral surgery. I & D CYST ON BACK 08/19/22, egd Past Anesthesia/Blood Transfusion Reactions: Previous Problems w/ Anesthesia Additional Past Anesthesia/Blood Transfusion Reaction / Comment(s): SLOW TO WAKE FROM ANESTHESIA", no blood transfusion Smoking Status: Current every day smoker, Vaper - Past Family History Mother Family Medical History: Cancer Additional Family Medical History / Comment(s): breast cancer Medications and Allergies Home Medications Medication Instructions Recorded Confirmed Type lamoTRIgine [LaMICtal] 200 mg PO BID #0 06/28/20 12/25/24 Rx carBAMazepine [TEGretol] 200 mg PO BID 10/10/20 12/25/24 History PHENobarbitaL [Luminal] 129.6 mg PO HS 08/28/22 12/25/24 History Zonisamide [Zonegran] 400 mg PO HS 08/28/22 12/25/24 History Montelukast [Singulair] 10 mg PO HS 09/16/24 12/25/24 History Cariprazine HCl [Vraylar] 4.5 mg PO HS 12/08/24 12/25/24 History Omeprazole [PriLOSEC] 20 mg PO BID 12/08/24 12/25/24 History Venlafaxine HCl ER [Effexor XR] 150 mg PO DAILY 14 Days #14 cap 12/15/24 12/25/24 Rx traZODone HCL [Desyrel] 150 mg PO HS 14 Days #14 tab 12/15/24 12/25/24 Rx Allergies Allergy/AdvReac Type Severity Reaction Status Date / Time No Known Allergies Allergy Verified 04/04/25 19:17 Physical Exam Vitals: Vital Signs Temp Pulse Pulse Resp BP BP Pulse Ox 04/05/25 09:00 98.2 F 86 16 118/74 98 04/05/25 00:31 97.8 F 81 16 109/74 99 04/04/25 19:09 98.9 F 88 19 142/85 98 Intake and Output 04/04/25 04/05/25 04/05/25 22:59 06:59 14:59 Other: Weight 87.997 kg 85.049 kg Cranial Nerve Examination - Cranial Nerves Cranial Nerve I- Olfactory: Intact Cranial Nerve II- Optic: Intact Cranial Nerve III- Oculomotor: Intact Cranial Nerve IV- Trochlear: Intact Cranial Nerve V- Trigeminal: Intact Cranial Nerve - Abducens: Intact Cranial Nerve VII- Facial: Intact Cranial Nerve VIII- Auditory: Intact Cranial Nerve IX- Glossopharyngeal: Intact Cranial Nerve X- Vagus: Intact Cranial Nerve XI- Accessory: Intact Cranial Nerve XII- Hypoglossal: Intact Results CBC & Chem 7: 04/05/25 09:08 04/05/25 09:08 Labs: Abnormal Lab Results - Last 24 Hours (Table) 04/04/25 Range/Units 19:20 Ur Barbiturates Screen Detected H (NotDetected)
[2025-04-05 15:36] LABS: Cholesterol 232.00 mg/dL (0.00-200.00); HDL Cholesterol 50.60 mg/dL (40.00-60.00); LDL Cholesterol,Calculated 153.8 mg/dL (0.0-131.0); Triglycerides 138.00 mg/dL (0.00-149.00); VLDL Calculation 27.60 mg/dL (5.00-40.00)
--- NOTE | 2025-04-06 10:39 | P.PN ---
Progress Note - Text Progress Note Date: 04/06/25 Interval history: Patient was wandering the hallways [place] to speak he continues to be fairly c oncrete. Claims that he is doing better with regards to his mood and anxiety. He claims that his wants him back home now that even though they are going through a divorce. He continues to have very poor insight and poor judgment. Has not been going to many groups, mainly pacing the hallways, claims that he is tolerating his medications fairly well. Denies any issues with sleep. Claims t hat he is eating fairly. Denies any auditory or visual distention denies any suicidal or homicidal ideations intent or plan. MENTAL STATUS EXAM: General Appearance: Patient appears to be as a carreon, quite paranoid with a bit of dow, wearing glasses. Stated age is alert, directable, and attempts to cooperate. Patient appears to have fair hygiene and grooming. Behavior: Patient is seated without any agitated behavior. Rationalizing and superficial, improving Speech: Patient's speech is fluent and nonpressured. Mood/Affect: Patient reports their mood is minimizing depression and anxiety, improving mildly, affect is congruent Suicidality/Homicidality: Patient denies having any homicidal ideation intent or plan. Denies any suicidal ideations, no plan Perceptions: Patient denies any visual hallucinations and denies any auditory hallucinations Though content/process: There is no evidence of any delusional thought content and thought process is linear. [place], rationalizing and minimizing, improving mildly Memory and concentration: AOX3, grossly intact for the purposes of this session Judgment and insight: Chronically poor/impulsive, improving IMPRESSIONS: Adjustment disorder with depressed and anxious mood Borderline personality disorder PLAN: -Patient is admitted under voluntary status to [facility]HU for stabilization of psychiatric symptoms and safety. Patient has signed adult voluntary form and medication consent and is placed in patient's chart. -Medications : Effexor XR 150 mg daily for depression/anxiety, trazodone 150 mg at bedtime for insomnia/mood. Continue with home dose vraylar 4.5 mg nightly for mood stabilization, lamictal 200 mg bid for mood stabilization/depression. -Ativan and Haldol PRN for agitation/aggression -NRT -not needed as patient does not smoke -SW on board for discharge planning. Encourage patient to participate in groups to work on coping skills. Likely discharge tomorrow versus Friday, work with [facility] to look at other solutions for treatment as an outpatient as patient has had repeated readmissions and ED visits for minor social conflicts at home.
[2025-04-06] MEDS: LORazepam 1 MG TAB PO PRN (10:41)
[2025-04-07] MEDS: VRAYLAR 4.5 MG PO SCH (05:45)
[2025-04-07 08:21] VITALS: BP 113/76; PULSE 76; RESP 20; TEMP 98.1
--- NOTE | 2025-04-07 11:26 | P.DS ---
Providers Date of admission: 04/04/25 23:28 Expected date of discharge: 04/07/25 Attending physician: Blane Paul MD Consults: 04/04/25 23:38 Consult Physician Routine Consulting Provider: Luciano Carson Consult Reason/Comments: H&P, Medical Do you want consulting provider notified?: Yes, Notify in am Primary care physician: Ana Maria Chapin - Discharge Diagnosis(es) (1) Adjustment disorder with mixed anxiety and depressed mood Current Visit: Yes Status: Acute Priority: High (2) Borderline personality disorder Current Visit: Yes Status: Acute Priority: High (3) Intellectual delay Current Visit: Yes Status: Acute Priority: Medium Hospital Course: Admission HPI: Admission note was completed by development writer "Patient is a 35-year-old male, unemployed and living with his mother. Patient presented to the hospital with suicidal ideations. Per EPS note, "Master Tax Advisor assessed patient in Ed. Patient lying in bed, development writer asked if patient to confirm current living situation, Pt. did confirm. Master Tax Advisor asked Pt if he feels safe, Pt replied "No". Master Tax Advisor asked Pt why there are here, Pt replied "Suicidal, depressed the last two weeks, nobody cares, everything gets worse, I told police dispatch I would assault them if they came. If I don't get admtted here, I'll probably kill myself." Master Tax Advisor asked Pt. about SI plan, Pt replied " traffic or river." When development writer asked Pt. if he has a support system, Pt replied "Not a good one." Patient seen and evaluated today. He was seen wandering away his and persistent on wanting to speak with development writer. Patient appeared to be mildly tearful today, appeared to be a bit tired. He was fairly concrete, attempting to rationalize and minimize his need for being on the unit. He claims that he called the police on himself due to feeling suicidal. Claims that he got into an argument with his mother and was "frustrated". He claims that he wants to dismiss the divorce proceedings with his however states that his mother did not agree with this and wants the divorce to continue. He states that he also has been speaking with his and she wants to dismiss the divorce as well. 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 He claims that he wants his son to grow up in a "two-parent home". He was minimizing his anxiety and anger depression at this time. Claims that his sleep and appetite are fair. Claims that he has been taking his medications regularly. Patient denies any suicidal or homicidal ideations intent or plan. At this time patient denies any auditory or visual hallucinations. Patient denies any flight of ideas racing thoughts and increased in goal directed behavior. Patient admits to using alcohol occasionally, states he only drink 1 to 2 beers per week, denies any history of withdrawals. Denies any other recreational drug use. Urine drug screen was positive for barbiturates" Hospital course: Upon admission to the unit patient was directable and agreeable to commence treatment and signed adult voluntary form. Patient was initially depressed, upset however with time and treatment patient got along well with other patients on the unit and followed unit protocol. Patient was compliant with the medications and denied any side effects throughout hospital course. Patient was started on his home dose of medications including Effexor 150 mg daily for depression/anxiety, trazodone 150 mg nightly for insomnia/mood, regular 4.5 mg nightly for mood stabilization, Lamictal 200 mg twice daily for mood stabilization/depression, and resume his antiepileptic medications. Patient spoke of his stressors however did not participate much in group/activity therapy and mainly kept to themselves during hospitalization. Patient was also seen by medical team for history and physical exam. Throughout the course of the hospitalization patient gradually improved with regards to mood, anxiety, sleep and returned back to their baseline level of functioning. On the day of discharge patient denied any suicidal or homicidal ideations intent or plan denied any auditory or visual hallucinations. Patient endorsed wanting to live for their health and family and to see his son. The patient denied any access to guns or weapons. Patient denied any paranoia and did not endorse any delusions. Patient does not have a significant history of substance abuse and was counseled on abstaining from all substances including alcohol and marijuana. Patient was also counseled on the medications and need for regular compliance and was encouraged to follow-up with their outpatient appointment for mental health and also for primary care. Prior to discharge a family meeting will be arranged by social secretary to answer any questions and ensure safety upon discharge incuding making sure that guns/weapons are either removed from the home or locked away. Mental status exam: General Appearance: Patient appears to be has a carreon, wearing glasses, stated age is alert, pleasant, and cooperative. Patient is in no acute distress and has improved hygiene and grooming Behavior: Patient is calmly seated without any agitated behavior. Speech: Patient's speech is fluent and nonpressured. Mood/Affect: Patient reports their mood is "good", affect is congruent Suicidality/Homicidality: Patient denies having any suicidal or homicidal ideation intent or plan. Perceptions: Patient denies any auditory or visual hallucinations. Though content/process: There is no evidence of any delusional thought content and thought process is linear and goal-directed. Memory and concentration: AOX3, grossly intact for the purposes of this session. Can spell "WORLD" backwards correctly. Judgment and insight: Chronically poor/limited, however has improved with guarded prognosis Impression: Adjustment disorder with depressed mood and anxiety Borderline personality disorder Intellectual delay Plan: -Continue with discharge today as patient has improved and stabilized psychiatrically and is not currently an imminent threat to themself and/or others. Patient will remain at chronically elevated risk for harm to self and/or others due to their impulsivity and personality disorder. -Continue medications: Effexor XR 150 mg daily for depression/anxiety, trazodone 150 mg nightly for insomnia/mood, Vraylar 4.5 mg nightly for mood stabilization, Lamictal 200 mg twice daily for mood stabilization/depression -Patient was counseled on the need for medication compliance and appropriate f ollow-up at mental health and also primary care for medical issues. Patient verbalized understanding and agreed. -Social work to help coordinate patients discharge today arrange for and conduct family meeting to ensure safety upon discharge and answer any questions/concerns. also to ensure safe home environment that guns/weapons are either removed from the home or locked away. Social work also to arrange for patients follow up appointments with [facility] for psychiatric care along with follow up with primary care provider. -Patient counseled on abstaining from recreational drugs and marijuana and a lcohol. Was informed/educated on the adverse effects on their physical and mental health. Patient verbally agreed and understood. -Patient was instructed to return to the hospital or seek immediate medical care if their psychiatric or medical symptoms do worsen or reoccur. Abnormal Labs 04/04/25 04/05/25 04/05/25 19:20 09:08 09:08 MCH 32.7 H MPV 8.7 L Eosinophils # 0.41 H Total Protein 8.4 H Albumin 5.2 H Cholesterol 232.00 H LDL Cholesterol, Calc 153.8 H Ur Barbiturates Screen Detected H Allergies Allergy/AdvReac Type Severity Reaction Status Date / Time No Known Allergies Allergy Verified 04/04/25 19:17 Vital Signs Temp 98.1 F 04/07/25 08:21 Pulse 76 04/07/25 08:21 Resp 20 04/07/25 08:21 BP 113/76 04/07/25 08:21 Pulse Ox 100 04/07/25 08:21 FiO2 Laboratory Results WBC 5.31 10*3/uL (4.50-10.00) 04/05/25 09:08 RBC 4.93 10*6/uL (4.40-5.60) 04/05/25 09:08 Hgb 16.1 g/dL (13.0-17.0) 04/05/25 09:08 Hct 47.3 % (39.6-50.0) 04/05/25 09:08 MCV 95.9 fL (80.0-97.0) 04/05/25 09:08 MCH 32.7 pg (27.0-32.0) H 04/05/25 09:08 MCHC 34.0 g/dL (32.0-37.0) 04/05/25 09:08 Plt Count 179 10*3/uL (140-440) 04/05/25 09:08 MPV 8.7 fL (9.5-12.2) L 04/05/25 09:08 Immature Gran % (Auto) 0.2 % 04/05/25 09:08 Neutrophils % 47.1 % 04/05/25 09:08 Lymphocytes % 35.4 % 04/05/25 09:08 Monocytes % 8.7 % 04/05/25 09:08 Eosinophils % 7.7 % 04/05/25 09:08 Basophils % 0.9 % 04/05/25 09:08 Immature Gran # 0.01 10*3/uL (0.00-0.04) 04/05/25 09:08 Neutrophils # 2.50 10*3/uL (1.80-7.70) 04/05/25 09:08 Lymphocytes # 1.88 10*3/uL (0.90-5.00) 04/05/25 09:08 Monocytes # 0.46 10*3/uL (0.20-1.00) 04/05/25 09:08 Eosinophils # 0.41 10*3/uL (0.04-0.35) H 04/05/25 09:08 Basophils # 0.05 10*3/uL (0.00-0.10) 04/05/25 09:08 Sodium 144 mmol/L (137-145) 04/05/25 09:08 Potassium 4.4 mmol/L (3.5-5.1) 04/05/25 09:08 Chloride 106 mmol/L (98-107) 04/05/25 09:08 Carbon Dioxide 25 mmol/L (22-30) 04/05/25 09:08 Anion Gap 13 mmol/L 04/05/25 09:08 BUN 12 mg/dL (9-20) 04/05/25 09:08 Creatinine 0.99 mg/dL (0.66-1.25) 04/05/25 09:08 Est GFR (CKD-EPI)AfAm >90 (>60 ml/min/1.73 sqM) 04/05/25 09:08 Est GFR (CKD-EPI)NonAf >90 (>60 ml/min/1.73 sqM) 04/05/25 09:08 Glucose 91 mg/dL (74-99) 04/05/25 09:[address] Glu mg/dL 100 mg/dL 04/05/25 09:08 Hemoglobin A1c 5.1 % (<=6.0) 04/05/25 09:08 Calcium 10.0 mg/dL (8.4-10.2) 04/05/25 09:08 Total Bilirubin 0.5 mg/dL (0.2-1.3) 04/05/25 09:08 AST 23 U/L (17-59) 04/05/25 09:08 ALT 16 U/L (4-49) 04/05/25 09:08 Alkaline Phosphatase 94 U/L (38-126) 04/05/25 09:08 Total Protein 8.4 g/dL (6.3-8.2) H 04/05/25 09:08 Albumin 5.2 g/dL (3.5-5.0) H 04/05/25 09:08 Triglycerides 138.00 mg/dL (0.00-149.00) 04/05/25 09:08 Cholesterol 232.00 mg/dL (0.00-200.00) H 04/05/25 09:08 LDL Cholesterol, Calc 153.8 mg/dL (0.0-131.0) H 04/05/25 09:08 VLDL Cholesterol, Calc 27.60 mg/dL (5.00-40.00) 04/05/25 09:08 HDL Cholesterol 50.60 mg/dL (40.00-60.00) 04/05/25 09:08 Cholesterol/HDL Ratio 4.58 Ratio 04/05/25 09:08 TSH 2.590 mIU/L (0.465-4.680) 04/05/25 09:08 Urine Color Colorless 04/04/25 19:20 Urine Appearance Clear (Clear) 04/04/25 19:20 Urine pH 6.5 (5.0-8.0) 04/04/25 19:20 Ur Specific [place] 1.009 (1.001-1.035) 04/04/25 19:20 Urine Protein Negative (Negative) 04/04/25 19:20 Urine Glucose (UA) Negative (Negative) 04/04/25 19:20 Urine Ketones Negative (Negative) 04/04/25 19:20 Urine Blood Negative (Negative) 04/04/25 19:20 Urine Nitrite Negative (Negative) 04/04/25 19:20 Urine Bilirubin Negative (Negative) 04/04/25 19:20 Urine Urobilinogen <2.0 mg/dL (<2.0) 04/04/25 19:20 Ur Leukocyte Esterase Negative (Negative) 04/04/25 19:20 Urine Opiates Screen Not Detected (NotDetected) 04/04/25 19:20 Ur Oxycodone Screen Not Detected (NotDetected) 04/04/25 19:20 Urine Methadone Screen Not Detected (NotDetected) 04/04/25 19:20 Ur Barbiturates Screen Detected (NotDetected) H 04/04/25 19:20 Carbamazepine 8.1 UG/ML (4.0-12.0) 04/04/25 22:31 U Tricyclic Antidepress Not Detected (NotDetected) 04/04/25 19:20 Ur Phencyclidine Scrn Not Detected (NotDetected) 04/04/25 19:20 Ur Amphetamines Screen Not Detected (NotDetected) 04/04/25 19:20 U Methamphetamines Scrn Not Detected (NotDetected) 04/04/25 19:20 Phenobarbital 17.5 UG/ML (15.0-40.0) 04/04/25 22:30 U Benzodiazepines Scrn Not Detected (NotDetected) 04/04/25 19:20 Urine Cocaine Screen Not Detected (NotDetected) 04/04/25 19:20 U Marijuana (THC) Screen Not Detected (NotDetected) 04/04/25 19:20 Influenza Type A (PCR) Not Detected (Not Detectd) 04/04/25 22:31 Influenza Type B (PCR) Not Detected (Not Detectd) 04/04/25 22:31 RSV (PCR) Not Detected (Not Detectd) 04/04/25 22:31 SARS-CoV-2 (PCR) Not Detected (Not Detectd) 04/04/25 22:31 Patient Condition at Discharge: Stable Plan - Discharge Summary Discharge Rx Participant: No New Discharge Prescriptions: New Ibuprofen [Motrin] 600 mg PO Q6HR PRN tab PRN Reason: Moderate Pain (Scale 4 To 6) Acetaminophen Tab [Tylenol] 650 mg PO Q4HR PRN tab PRN Reason: Mild Pain (Scale 1 To 3) Continue lamoTRIgine [LaMICtal] 200 mg PO BID #0 carBAMazepine [TEGretol] 200 mg PO BID Montelukast [Singulair] 10 mg PO HS Cariprazine HCl [Vraylar] 4.5 mg PO HS Omeprazole [PriLOSEC] 20 mg PO BID traZODone HCL [Desyrel] 150 mg PO HS 14 Days #14 tab Zonisamide [Zonegran] 400 mg PO HS PHENobarbitaL [Luminal] 129.6 mg PO HS Venlafaxine HCl ER [Effexor XR] 150 mg PO DAILY 14 Days #14 cap Discharge Medication List lamoTRIgine [LaMICtal] 200 mg PO BID #0 06/28/20 [Rx] carBAMazepine [TEGretol] 200 mg PO BID 10/10/20 [History] PHENobarbitaL [Luminal] 129.6 mg PO HS 08/28/22 [History] Zonisamide [Zonegran] 400 mg PO HS 08/28/22 [History] Montelukast [Singulair] 10 mg PO HS 09/16/24 [History] Cariprazine HCl [Vraylar] 4.5 mg PO HS 12/08/24 [History] Omeprazole [PriLOSEC] 20 mg PO BID 12/08/24 [History] Venlafaxine HCl ER [Effexor XR] 150 mg PO DAILY 14 Days #14 cap 12/15/24 [Rx] traZODone HCL [Desyrel] 150 mg PO HS 14 Days #14 tab 12/15/24 [Rx] Acetaminophen Tab [Tylenol] 650 mg PO Q4HR PRN tab 04/07/25 [Rx] Ibuprofen [Motrin] 600 mg PO Q6HR PRN tab 04/07/25 [Rx] Follow up Appointment(s)/Referral(s): [facility] [Outside] - 04/11/25 9:00 am (04/11/2025 9:00AM - 10:00AM MARTHA STRAUSS 04/13/2025 9:00AM - 10:00AM JUAN HANKINS 04/13/2025 10:00AM - 10:30AM JJ PENA ) Ana Maria Samson MD [Primary Care Provider] - 1-2 days Patient Instructions/Handouts: Depression (DC) Activity/Diet/Wound Care/Special Instructions: [facility] Discharge Info Avoid the use of street drugs and alcohol. Take all medications as prescribed. When you are in need of refills on your medications, please contact your outpatient medical provider and/or outpatient psychiatrist. Please go to your scheduled outpatient appointments for aftercare treatment. If symptoms return or become worse, call the crisis line at or and/or visit the nearest emergency room for assistance. National Suicide and Crisis Lifeline - call or text 168. Discharge Disposition: HOME SELF-CARE
== END 2025-04-07 13:15 | disposition home or self-care (01) | DRG 882 ==
LOC: EC 19:06 → 3MHU 23:28
PROVIDERS: ADMIT Psychiatry & Neurology Psychiatry; ATTEND Psychiatry & Neurology Psychiatry
DX: F43.23 Adjustment disorder with mixed anxiety and depressed mood (principal); G40.409 Other generalized epilepsy and epileptic syndromes, not intractable, without status epilepticus; F31.30 Bipolar disorder, current episode depressed, mild or moderate severity, unspecified; R45.851 Suicidal ideations; F60.3 Borderline personality disorder; F17.200 Nicotine dependence, unspecified, uncomplicated; F90.9 Attention-deficit hyperactivity disorder, unspecified type; G43.909 Migraine, unspecified, not intractable, without status migrainosus; G47.00 Insomnia, unspecified; K21.9 Gastro-esophageal reflux disease without esophagitis; Z79.899 Other long term (current) drug therapy; Z11.52 Encounter for screening for COVID-19
CPT/HCPCS: 36415; 80053; 80061; 80156; 80184; 80306; 81003; 82075; 83036; 84443; 85025; 87636; 99285

== ENCOUNTER 2025-04-17 17:39 | Inpatient (IN) | payer MEDICARE, MEDICAID ==
--- NOTE | 2025-04-17 17:58 | ED ---
Psych HPI - General Chief Complaint: Psychiatric Symptoms Stated Complaint: Suicidal Time Seen by Provider: 04/17/25 17:42 Source: patient, police, RN notes reviewed Mode of arrival: ambulatory Limitations: no limitations - History of Present Illness Initial Comments: This is a 35-year-old male presents emergency department complaint of depression, suicide nation. Patient states this is having a bad day states that he did not have any arguments he states he has underlying depression. Patient was brought in with police for evaluation. Denies any self-harm and states he drank earlier today. Patient denies drug use. - Related Data Home Medications Medication Instructions Recorded Confirmed carBAMazepine [TEGretol] 200 mg PO BID 10/10/20 12/25/24 PHENobarbitaL [Luminal] 129.6 mg PO HS 08/28/22 12/25/24 Zonisamide [Zonegran] 400 mg PO HS 08/28/22 12/25/24 Montelukast [Singulair] 10 mg PO HS 09/16/24 12/25/24 Cariprazine HCl [Vraylar] 4.5 mg PO HS 12/08/24 12/25/24 Omeprazole [PriLOSEC] 20 mg PO BID 12/08/24 12/25/24 Previous Rx's Medication Instructions Recorded lamoTRIgine [LaMICtal] 200 mg PO BID #0 06/28/20 Venlafaxine HCl ER [Effexor XR] 150 mg PO DAILY 14 Days #14 cap 12/15/24 traZODone HCL [Desyrel] 150 mg PO HS 14 Days #14 tab 12/15/24 Acetaminophen Tab [Tylenol] 650 mg PO Q4HR PRN tab 04/07/25 Ibuprofen [Motrin] 600 mg PO Q6HR PRN tab 04/07/25 Allergies Allergy/AdvReac Type Severity Reaction Status Date / Time No Known Allergies Allergy Verified 04/17/25 17:43 Review of Systems ROS Statement: Those systems with pertinent positive or pertinent negative responses have been documented in the HPI. ROS Other: All systems not noted in ROS Statement are negative. Past Medical History Past Medical History: GERD/Reflux, Seizure Disorder, Skin Disorder Additional Past Medical History / Comment(s): has history of epilepsy, hx grand mal seizures since childhood, migraines, acne History of Any Multi-Drug Resistant Organisms: None Reported Past Surgical History: Adenoidectomy, Appendectomy, Cholecystectomy, Tonsil lectomy Additional Past Surgical History / Comment(s): oral surgery. I & D CYST ON BACK 08/19/22, egd Past Anesthesia/Blood Transfusion Reactions: Previous Problems w/ Anesthesia Additional Past Anesthesia/Blood Transfusion Reaction / Comment(s): SLOW TO WAKE FROM ANESTHESIA", no blood transfusion Past Psychological History: ADD/ADHD, Anxiety, Bipolar, Depression Smoking Status: Never smoker Past Alcohol Use History: Rare Past Drug Use History: None Reported - Past Family History Mother Family Medical History: Cancer Additional Family Medical History / Comment(s): breast cancer General Exam Limitations: no limitations General appearance: alert, in no apparent distress Head exam: Present: atraumatic, normocephalic, normal inspection Eye exam: Present: normal appearance, PERRL, EOMI. Absent: scleral icterus, conjunctival injection, periorbital swelling ENT exam: Present: normal exam, normal oropharynx, mucous membranes moist Neck exam: Present: normal inspection, full ROM. Absent: tenderness, meningismus, lymphadenopathy Respiratory exam: Present: normal lung sounds bilaterally. Absent: respiratory distress, wheezes, rales, rhonchi, stridor Cardiovascular Exam: Present: regular rate, normal rhythm, normal heart sounds. Absent: systolic murmur, diastolic murmur, rubs, gallop, clicks Neurological exam: Present: alert, oriented X3 Course Vital Signs 04/17/25 17:40 Temperature 98.0 F Pulse Rate 94 Respiratory 17 Rate Blood Pressure 143/83 O2 Sat by Pulse 98 Oximetry Medical Decision Making - Medical Decision Making Was pt. sent in by a medical professional or institution (, PA, BOTTLE DEALER, urgent care, hospital, or longterm...) When possible be specific @ -No Did you speak to anyone other than the patient for history (EMS, parent, family, police, friend...)? What history was obtained from this source @ -No Did you review nursing and triage notes (agree or disagree)? Why? @ -I reviewed and agree with nursing and triage notes Were old charts reviewed (outside hosp., previous admission, EMS record, old EKG, old radiological studies, urgent care reports/EKG's, longterm records)? Report findings @ -No old charts were reviewed Differential Diagnosis (chest pain, altered mental status, abdominal pain women, abdominal pain men, vaginal bleeding, weakness, fever, dyspnea, syncope, headache, dizziness, GI bleed, back pain, seizure, CVA, palpatations, mental health, musculoskeletal)? @ -Differential Mental Health Depression, anxiety, bipolar, psychosis, schizophrenia, borderline personality, situational depression, adjustment disorder, behavioral disorder, brain tumor, malingering, substance abuse, encephalopathy, medication reaction, dementia, hypothyroidism, degenerative neurologic disorder, lupus.... This is not meant to be all-inclusive list EKG interpreted by me (3pts min.). @ -As above X-rays interpreted by me (1pt min.). @ -None done CT interpreted by me (1pt min.). @ -None done U/S interpreted by me (1pt. min.). @ -None done What testing was considered but not performed or refused? (CT, X-rays, U/S, labs)? Why? @ -None What meds were considered but not given or refused? Why? @ -None Did you discuss the management of the patient with other professionals (professionals i.e. , PA, BOTTLE DEALER, lab, RT, psych nurse, director social welfare, customer management specialist, teacher, chief procurement officer, shoe parts caser)? Give summary @ -EPS eval patient recommended inpatient treatment Was smoking cessation discussed for >3mins.? @ -No Was critical care preformed (if so, how long)? @ -No Were there social determinants of health that impacted care today? How? (Homelessness, low income, unemployed, alcoholism, drug addiction, transportation, low edu. Level, literacy, decrease access to med. care, usp, rehab)? @ -No Was there de-escalation of care discussed even if they declined (Discuss DNR or withdrawal of care, Hospice)? DNR status @ -No What co-morbidities impacted this encounter? (DM, HTN, Smoking, COPD, CAD, Cancer, CVA, ARF, Chemo, Hep., AIDS, mental health diagnosis, sleep apnea, morbid obesity)? @ -None Was patient admitted / discharged? Hospital course, mention meds given and route, prescriptions, significant lab abnormalities, going to OR and other p ertinent info. @ -Admit to 3 W. Undiagnosed new problem with uncertain prognosis? @ -No Drug Therapy requiring intensive monitoring for toxicity (Heparin, Nitro, Insulin, Cardizem)? @ -No Were any procedures done? @ -No Diagnosis/symptom? @ -Depression suicidal ideation Acute, or Chronic, or Acute on Chronic? @ -Acute Uncomplicated (without systemic symptoms) or Complicated (systemic symptoms)? @Complicated Side effects of treatment? @ -No Exacerbation, Progression, or Severe Exacerbation? @ -No Poses a threat to life or bodily function? How? (Chest pain, [place], [place], pneumonia, PE, COPD, DKA, ARF, appy, cholecystitis, CVA, Diverticulitis, Homicidal, Suicidal, threat to staff... and all critical care pts) @ -Yes suicidal - Lab Data Lab Results 04/17/25 04/17/25 Range/Units 17:46 17:52 Urine Opiates Screen Not Detected (NotDetected) Ur Oxycodone Screen Not Detected (NotDetected) Urine Methadone Screen Not Detected (NotDetected) Ur Barbiturates Screen Detected H (NotDetected) U Tricyclic Antidepress Not Detected (NotDetected) Ur Phencyclidine Scrn Not Detected (NotDetected) Ur Amphetamines Screen Not Detected (NotDetected) U Methamphetamines Scrn Not Detected (NotDetected) U Benzodiazepines Scrn Not Detected (NotDetected) Urine Cocaine Screen Not Detected (NotDetected) U Marijuana (THC) Screen Not Detected (NotDetected) SARS-CoV-2 (PCR) Not Detected (Not Detectd) Disposition Clinical Impression: Depression, Suicidal ideation Disposition: TRANSFER TO PSYCH HOSP/UNIT Condition: Stable Referrals: Ana Maria Samson MD [Primary Care Provider] - 1-2 days Time of Disposition: 18:49
[2025-04-17 18:17] LABS: Barbiturate Screen,Urine Detected (NotDetected); Benzodiazepines Screen,Urine Not Detected (NotDetected); Opiate Screen,Urine Not Detected (NotDetected); Oxycodone Screen, Urine Not Detected (NotDetected); Phencyclidine Screen,Urine Not Detected (NotDetected); Tricyclic Antidepressant,Urine Not Detected (NotDetected); Urn Cannabinoid Scrn Not Detected (NotDetected)
[2025-04-17] MEDS ORDERED: MAGNESIUM HYDROXIDE 2,400 MG/30 ML CUP PO PRN (21:12)
[2025-04-17] MEDS ORDERED: ACETAMINOPHEN TAB 325 MG TAB PO PRN (21:12)
[2025-04-17] MEDS ORDERED: HALOPERIDOL LACTATE 5 MG/ML 1 ML VIAL IM PRN (21:12)
[2025-04-17] MEDS ORDERED: IBUPROFEN 600 MG TAB PO PRN (21:12)
[2025-04-17] MEDS ORDERED: MAG HYDROX/AL HYDROX/SIMETH 355 ML BOTTLE PO PRN (21:12)
[2025-04-17] MEDS ORDERED: LORazepam 1 MG TAB PO PRN (21:12)
[2025-04-17] MEDS: carBAMazepine 400 MG TAB.ER.12H PO SCH (21:48)
[2025-04-17] MEDS: PANTOPRAZOLE 40 MG TABLET PO SCH (21:49)
[2025-04-17] MEDS: carBAMazepine 200 MG TAB PO SCH (21:49)
[2025-04-17] MEDS: ZONISAMIDE 100 MG CAP PO SCH (21:49)
[2025-04-17] MEDS: lamoTRIgine 100 MG TAB PO SCH (21:50)
[2025-04-17] MEDS: MONTELUKAST 10 MG TAB PO SCH (21:50)
[2025-04-18 07:32] LABS: Basophils # (A) 0.03 10*3/uL (0.00-0.10); Basophils % (A) 0.5 %; Eosinophils # (A) 0.23 10*3/uL (0.04-0.35); Eosinophils % (A) 3.7 %; HCT 44.2 % (39.6-50.0); HGB 15.1 g/dL (13.0-17.0); Lymphocytes # (A) 3.00 10*3/uL (0.90-5.00); Lymphocytes % (A) 47.7 %; MCH 32.6 pg (27.0-32.0); MCHC 34.2 g/dL (32.0-37.0); MCV 95.5 fL (80.0-97.0); Monocytes # (A) 0.50 10*3/uL (0.20-1.00); Monocytes % (A) 7.9 %; Neutrophils # (A) 2.51 10*3/uL (1.80-7.70); Neutrophils % (A) 39.9 %; Platelet Count 162 10*3/uL (140-440); RBC 4.63 10*6/uL (4.40-5.60); RDW 12.0 % (11.5-14.5); WBC 6.29 10*3/uL (4.50-10.00)
[2025-04-18] MEDS: VENLAFAXINE HCL ER 150 MG CAP PO SCH (07:55)
[2025-04-18 07:58] LABS: ALT 12 U/L (4-49); AST 20 U/L (17-59); African American GFR (CKD) >90 (>60 ml/min/1.73 sqM); Albumin 4.8 g/dL (3.5-5.0); Alkaline Phosphatase 92 U/L (38-126); Anion Gap 9 mmol/L; Blood Urea Nitrogen 11 mg/dL (9-20); Calcium 9.5 mg/dL (8.4-10.2); Carbon Dioxide 25 mmol/L (22-30); Chloride 108 mmol/L (98-107); Glucose 91 mg/dL (74-99); Non-African American GFR(CKD) 84 (>60 ml/min/1.73 sqM); Potassium 4.0 mmol/L (3.5-5.1); Sodium 142 mmol/L (137-145); Total Protein 7.8 g/dL (6.3-8.2)
[2025-04-18 10:30] VITALS: RESP 16
[2025-04-18 11:24] LABS: Cholesterol 202.00 mg/dL (0.00-200.00); HDL Cholesterol 40.90 mg/dL (40.00-60.00); LDL Cholesterol,Calculated 126.9 mg/dL (0.0-131.0); Triglycerides 171.00 mg/dL (0.00-149.00); VLDL Calculation 34.20 mg/dL (5.00-40.00)
[2025-04-18] MEDS: VENLAFAXINE HCL ER 75 MG CAP PO ONE (12:14)
--- NOTE | 2025-04-18 12:22 | P.HP ---
Psychiatric H&P - . H&P Date: 04/18/25 History & Physical: Allergies Allergy/AdvReac Type Severity Reaction Status Date / Time No Known Allergies Allergy Verified 04/17/25 17:43 Vital Signs Temp 97.7 F 04/18/25 09:00 Pulse 66 04/18/25 09:00 Resp 16 04/18/25 09:00 BP 107/73 04/18/25 09:00 Pulse Ox 99 04/18/25 09:00 FiO2 Intake & Output 04/17/25 04/18/25 04/18/25 18:59 06:59 18:59 Weight 86.183 kg 81.845 kg Laboratory Last Values WBC 6.29 10*3/uL (4.50-10.00) 04/18/25 07:02 RBC 4.63 10*6/uL (4.40-5.60) 04/18/25 07:02 Hgb 15.1 g/dL (13.0-17.0) 04/18/25 07:02 Hct 44.2 % (39.6-50.0) 04/18/25 07:02 MCV 95.5 fL (80.0-97.0) 04/18/25 07:02 MCH 32.6 pg (27.0-32.0) H 04/18/25 07:02 MCHC 34.2 g/dL (32.0-37.0) 04/18/25 07:02 Plt Count 162 10*3/uL (140-440) 04/18/25 07:02 MPV 8.4 fL (9.5-12.2) L 04/18/25 07:02 Immature Gran % (Auto) 0.3 % 04/18/25 07:02 Neutrophils % 39.9 % 04/18/25 07:02 Lymphocytes % 47.7 % 04/18/25 07:02 Monocytes % 7.9 % 04/18/25 07:02 Eosinophils % 3.7 % 04/18/25 07:02 Basophils % 0.5 % 04/18/25 07:02 Immature Gran # 0.02 10*3/uL (0.00-0.04) 04/18/25 07:02 Neutrophils # 2.51 10*3/uL (1.80-7.70) 04/18/25 07:02 Lymphocytes # 3.00 10*3/uL (0.90-5.00) 04/18/25 07:02 Monocytes # 0.50 10*3/uL (0.20-1.00) 04/18/25 07:02 Eosinophils # 0.23 10*3/uL (0.04-0.35) 04/18/25 07:02 Basophils # 0.03 10*3/uL (0.00-0.10) 04/18/25 07:02 Sodium 142 mmol/L (137-145) 04/18/25 07:02 Potassium 4.0 mmol/L (3.5-5.1) 04/18/25 07:02 Chloride 108 mmol/L (98-107) H 04/18/25 07:02 Carbon Dioxide 25 mmol/L (22-30) 04/18/25 07:02 Anion Gap 9 mmol/L 04/18/25 07:02 BUN 11 mg/dL (9-20) 04/18/25 07:02 Creatinine 1.13 mg/dL (0.66-1.25) 04/18/25 07:02 Est GFR (CKD-EPI)AfAm >90 (>60 ml/min/1.73 sqM) 04/18/25 07:02 Est GFR (CKD-EPI)NonAf 84 (>60 ml/min/1.73 sqM) 04/18/25 07:02 Glucose 91 mg/dL (74-99) 04/18/25 07:[address] Glu mg/dL 97 mg/dL 04/18/25 07:02 Hemoglobin A1c 5.0 % (<=6.0) 04/18/25 07:02 Calcium 9.5 mg/dL (8.4-10.2) 04/18/25 07:02 Total Bilirubin 0.5 mg/dL (0.2-1.3) 04/18/25 07:02 AST 20 U/L (17-59) 04/18/25 07:02 ALT 12 U/L (4-49) 04/18/25 07:02 Alkaline Phosphatase 92 U/L (38-126) 04/18/25 07:02 Total Protein 7.8 g/dL (6.3-8.2) 04/18/25 07:02 Albumin 4.8 g/dL (3.5-5.0) 04/18/25 07:02 Triglycerides 171.00 mg/dL (0.00-149.00) H 04/18/25 07:02 Cholesterol 202.00 mg/dL (0.00-200.00) H 04/18/25 07:02 LDL Cholesterol, Calc 126.9 mg/dL (0.0-131.0) 04/18/25 07:02 VLDL Cholesterol, Calc 34.20 mg/dL (5.00-40.00) 04/18/25 07:02 HDL Cholesterol 40.90 mg/dL (40.00-60.00) 04/18/25 07:02 Cholesterol/HDL Ratio 4.94 Ratio 04/18/25 07:02 TSH 1.710 mIU/L (0.465-4.680) 04/18/25 07:02 Urine Opiates Screen Not Detected (NotDetected) 04/17/25 17:46 Ur Oxycodone Screen Not Detected (NotDetected) 04/17/25 17:46 Urine Methadone Screen Not Detected (NotDetected) 04/17/25 17:46 Ur Barbiturates Screen Detected (NotDetected) H 04/17/25 17:46 U Tricyclic Antidepress Not Detected (NotDetected) 04/17/25 17:46 Ur Phencyclidine Scrn Not Detected (NotDetected) 04/17/25 17:46 Ur Amphetamines Screen Not Detected (NotDetected) 04/17/25 17:46 U Methamphetamines Scrn Not Detected (NotDetected) 04/17/25 17:46 U Benzodiazepines Scrn Not Detected (NotDetected) 04/17/25 17:46 Urine Cocaine Screen Not Detected (NotDetected) 04/17/25 17:46 U Marijuana (THC) Screen Not Detected (NotDetected) 04/17/25 17:46 SARS-CoV-2 (PCR) Not Detected (Not Detectd) 04/17/25 17:52 04/18/25 12:14 IDENTIFYING DATA: Patient is a 35-year-old male, unemployed and living with CHIEF COMPLAINT: SI HPI: Patient presented to the hospital with suicidal ideations, no plan. Per EPS, "Pt A/O x4 able to verbalize name, , location, address and phone number. Pt reports he had a "bad day and it was not an argument with my . I feel people would be better off without me. I'm not in the right frame of mind" Pt called police on self due to SI without a plan. Reports having 1/2 can of Smirnoff today. Denies any other substance use. Pt is unable to verbalize any triggers at this time, Denies AVH or delusions. Pt reports HI towards his mother a couple days ago without a plan. Pt reports he went to a [facility] appt last week and believes he has an appt next Friday. Verbalizes taking his home medications but feels the psych medications are not working well". Patient seen and evaluated on the unit and was agreeable with speaking to proposal manager writer in office. He states having homicidal ideations towards his mom due to several concerns including her being overbearing and her not accepting his reconciliation with his . He states he was going through a divorce however he ultimately got back with his which ultimately caused his family to turn against him. He states having dinner with his and mom/stepdad to which he felt as though they did not want him to be happy which made him express statements such as "I wish I was ". He states he told his 's father who advised him to get some help as he has his child and to live for. He states other family members including his siblings have sent text messages telling him to "f off." He states recently being discharged from [facility] for unknown reasons and that he is now following with [facility]. He denied any sleep or appetite changes, difficulties in concentration but did report low energy and anhedonia. Patient denies any suicidal ideations intent or plan. He does report homicidal ideations towards his mother however lessening in intensity. At this time patient denies any auditory or visual hallucinations. Patient denies any flight of ideas racing thoughts and increased in goal directed behavior. Patient admits to using no substances. PAST PSYCHIATRIC HISTORY: Patient has a history of borderline personality disorder, MDD. Patient is currently on trazodone 150 mg at bedtime, Effexor 150 mg daily, Vraylar 4.5 mg daily. Patient has had several inpatient hospitalizations, last being earlier this month. Patient sees Bernadine Mckeon NP at [facility]. Patient reports 1 suicide attempt in September 2024. PMH: as per ER note ALLERGIES: as per EMR SUBSTANCE USE HISTORY: Denies FAMILY PSYCHIATRIC/SUBSTANCE USE HISTORY: Denies SOCIAL HISTORY: Patient was born in [place] and raised in [place]. He is , has 1 son and lives with them. He is unemployed. MENTAL STATUS EXAM: General Appearance: Patient appears to be stated age is alert, directable, and attempts to cooperate. Patient appears to have fair hygiene and grooming. He wears glasses Behavior: Patient is seated without any agitated behavior. Speech: Patient's speech is fluent and nonpressured. Mood/Affect: Patient reports their mood is depressed, affect is congruent and constricted. Suicidality/Homicidality: Patient reports having homicidal ideation towards his mother, lessening in intensity. Denies any suicidal ideations intent or plan Perceptions: Patient denies any visual hallucinations and denies any auditory hallucinations Though content/process: There is no evidence of any delusional thought content and thought process is linear and goal-directed. Memory and concentration: AOX3, grossly intact for the purposes of this session. Can spell "WORLD" backwards Judgment and insight: Poor STRENGTHS/WEAKNESSES: strength is that patient is resilient. Weakness is that patient has poor judgment/coping skills and is impulsive INTELLECT: Below average IMPRESSIONS: Adjustment disorder with depressed mood Borderline personality disorder PLAN: -Patient is admitted under voluntary status to [facility] for stabilization of psychiatric symptoms and safety. Patient has signed adult voluntary form and and is placed in patient's chart. -Medications : Increase Effexor XR to 225 mg daily for depression/anxiety, continue trazodone 150 mg at bedtime for insomnia, Vraylar 4.5 mg daily for mood stabilization (patient to have bring this medication in) - Ativan and Haldol PRN for agitation/aggression -Patient was informed of the risks, benefits and side effects of the medication and patient verbally consented to taking the medications. Patient signed med consent form and was placed in chart. [Patient offered and declined patient education sheet for psychotropic medications.] -Internal Medicine consult to perform medical evaluation and physical. -NRT -not needed as patient does not smoke -SW on board for discharge planning. Encourage patient to participate in groups to work on coping skills. Anticipate discharge home mid-later this week
[2025-04-18] MEDS: NON FORMULARY DRUG (Cariprazine Hcl [Vraylar] 4.5 MG Capsule) PO SCH (20:33)
[2025-04-18 23:37] VITALS: BP 118/79; PULSE 74; TEMP 97.9
--- NOTE | 2025-04-19 05:10 | P.MDCNMH ---
History of Present Illness H&P Date: 04/18/25 This is a 35-year-old male who presented to the emergency department with depression and suicidal ideation and was brought in by the police for further psychiatric evaluation. Patient follows with Dr. Samson in the outpatient setting with a past medical history of with history of epilepsy, ADD/ADHD, anxiety, bipolar depression, denies smoking and admits to drinking and reports he drank 1 day prior, denies illicit drug use. Labs reviewed and white count is 6.29, hemoglobin 15.1, platelets 162, sodium is 142 with a potassium of 4.0, BUN is 11 with a creatinine of 1.13, hemoglobin A1c is 5.0, LFTs within normal limits, drug screen performed and was negative other than barbiturates and COVID testing was negative. Patient was admitted to [facility] for further psychiatric evaluation voluntarily. On exam patient denies any chest pain or shortness of breath. No reported nausea or vomiting and patient has been tolerating diet. Gait was steady on exam. REVIEW OF SYSTEMS: CONSTITUTIONAL: No fever, no malaise, no fatigue. HEENT: No recent visual problems or hearing problems. Denied any sore throat. CARDIOVASCULAR: No chest pain, orthopnea, PND, no palpitations, no syncope. PULMONARY: No shortness of breath, no cough, no hemoptysis. GASTROINTESTINAL: No diarrhea, no nausea, no vomiting, no abdominal pain. NEUROLOGICAL: No headaches, no weakness, no numbness. HEMATOLOGICAL: Denies any bleeding or petechiae. GENITOURINARY: Denies any burning micturition, frequency, or urgency. MUSCULOSKELETAL/RHEUMATOLOGICAL: Denies any joint pain, swelling, or any muscle pain. ENDOCRINE: Denies any polyuria or polydipsia. The rest of the 14-point review of systems is negative. PHYSICAL EXAMINATION: GENERAL: The patient is alert and oriented x3, not in any acute distress. Flat affect, well developed, thin built HEENT: Pupils are round and equally reacting to light. EOMI. No scleral icterus. No conjunctival pallor. Normocephalic, atraumatic. No pharyngeal erythema. No thyromegaly. CARDIOVASCULAR: S1 and S2 present. No murmurs, rubs, or gallops. PULMONARY: Chest is clear to auscultation, no wheezing or crackles. ABDOMEN: Soft, thin, nontender, nondistended, normoactive bowel sounds. No palpable organomegaly. MUSCULOSKELETAL: No joint swelling or deformity. EXTREMITIES: No cyanosis, clubbing, or pedal edema. NEUROLOGICAL: Gross neurological examination did not reveal any focal deficits. SKIN: No rashes. Assessment: Depression with suicidal ideation History of GERD History of seizure disorder with epilepsy ADD/ADHD Anxiety/bipolar depression Alcohol use, not intoxicated GI prophylaxis full code Plan: Patient was voluntarily admitted to [facility] for further psychiatric evaluation Home medications reviewed and resumed as appropriate Labs reviewed and within normal limits Encouraged group therapy sessions and compliance with medication Thank you kindly for this consultation. Please do not hesitate to contact us with questions or concerns The impression and plan of care has been dictated by Maria Isabel Fabian, Nurse Practitioner as directed. Dr. Aurelia MD I have performed a history and examination and MDM of this patient, discussed the same with the dictator, and agree with the dictator's assessment and plan as written ,documented as a scribe. Based on total visit time, I have performed more than 50% of the visit. Past Medical History Past Medical History: GERD/Reflux, Seizure Disorder, Skin Disorder Additional Past Medical History / Comment(s): has history of epilepsy, hx grand mal seizures since childhood, migraines, acne History of Any Multi-Drug Resistant Organisms: None Reported Past Surgical History: Adenoidectomy, Appendectomy, Cholecystectomy, Tonsillectomy Additional Past Surgical History / Comment(s): oral surgery. I & D CYST ON BACK 08/19/22, egd Past Anesthesia/Blood Transfusion Reactions: Previous Problems w/ Anesthesia Additional Past Anesthesia/Blood Transfusion Reaction / Comment(s): SLOW TO WAKE FROM ANESTHESIA", no blood transfusion Smoking Status: Never smoker - Past Family History Mother Family Medical History: Cancer Additional Family Medical History / Comment(s): breast cancer Medications and Allergies Home Medications Medication Instructions Recorded Confirmed Type lamoTRIgine [LaMICtal] 200 mg PO BID #0 06/28/20 04/17/25 Rx carBAMazepine [TEGretol] 200 mg PO BID 10/10/20 04/17/25 History PHENobarbitaL [Luminal] 129.6 mg PO HS 08/28/22 04/17/25 History Zonisamide [Zonegran] 400 mg PO HS 08/28/22 04/17/25 History Montelukast [Singulair] 10 mg PO HS 09/16/24 04/17/25 History Cariprazine HCl [Vraylar] 4.5 mg PO HS 12/08/24 04/17/25 History Omeprazole [PriLOSEC] 20 mg PO BID 12/08/24 04/17/25 History Venlafaxine HCl ER [Effexor XR] 150 mg PO DAILY 14 Days #14 cap 12/15/24 04/17/25 Rx Acetaminophen Tab [Tylenol] 650 mg PO Q4HR PRN tab 04/07/25 04/17/25 Rx Ibuprofen [Motrin] 800 mg PO TID PRN 04/17/25 04/17/25 History LORazepam [Ativan] 0.5 mg PO HS PRN 04/17/25 04/17/25 History carBAMazepine [carBAMazepine ER] 400 mg PO HS 04/17/25 04/17/25 History traZODone HCL 150 mg PO HS 04/17/25 04/17/25 History Allergies Allergy/AdvReac Type Severity Reaction Status Date / Time No Known Allergies Allergy Verified 04/17/25 17:43 Physical Exam Vitals: Vital Signs Temp Pulse Pulse Resp BP BP Pulse Ox 04/17/25 21:43 98.1 F 80 18 131/80 99 04/17/25 19:23 97.6 F 85 18 127/86 98 04/17/25 17:40 98.0 F 94 17 143/83 98 Intake and Output 04/17/25 04/18/25 04/18/25 22:59 06:59 14:59 Other: Weight 81.845 kg Cranial Nerve Examination - Cranial Nerves Cranial Nerve I- Olfactory: Intact Cranial Nerve II- Optic: Intact Cranial Nerve III- Oculomotor: Intact Cranial Nerve IV- Trochlear: Intact Cranial Nerve V- Trigeminal: Intact Cranial Nerve - Abducens: Intact Cranial Nerve VII- Facial: Intact Cranial Nerve VIII- Auditory: Intact Cranial Nerve IX- Glossopharyngeal: Intact Cranial Nerve X- Vagus: Intact Cranial Nerve XI- Accessory: Intact Cranial Nerve XII- Hypoglossal: Intact Results CBC & Chem 7: 04/18/25 07:02 04/18/25 07:02 Labs: Abnormal Lab Results - Last 24 Hours (Table) 04/17/25 04/18/25 04/18/25 Range/Units 17:46 07:02 07:02 MCH 32.6 H (27.0-32.0) pg MPV 8.4 L (9.5-12.2) fL Chloride 108 H (98-107) mmol/L Ur Barbiturates Screen Detected H (NotDetected) Assessment and Plan Time with Patient: Less than 30
[2025-04-19] MEDS: VENLAFAXINE HCL ER 150 MG CAP PO SCH (08:27)
[2025-04-19] MEDS: VENLAFAXINE HCL ER 75 MG CAP PO SCH (08:27)
--- NOTE | 2025-04-19 13:22 | P.DS ---
Providers Date of admission: 04/17/25 20:59 Expected date of discharge: 04/19/25 Attending physician: Cally Ivey MD Consults: 04/17/25 21:12 Consult Physician Routine Consulting Provider: Litzy Moses Consult Reason/Comments: H&P and medical Do you want consulting provider notified?: Yes, Notify in am Primary care physician: Ana Maria Chapin - Discharge Diagnosis(es) (1) Adjustment disorder with depressed mood Current Visit: Yes Status: Acute Priority: High (2) Borderline personality disorder Current Visit: Yes Status: Chronic Priority: High Hospital Course: Admission HPI: Admission note was completed by auto service writer "Patient presented to the hospital with suicidal ideations, no plan. Per EPS, "Pt A/O x4 able to verbalize name, , location, address and phone number. Pt reports he had a "bad day and it was not an argument with my . I feel people would be better off without me. I'm not in the right frame of mind" Pt called police on self due to SI without a plan. Reports having 1/2 can of Smirnoff today. Denies any other substance use. Pt is unable to verbalize any triggers at this time, Denies AVH or delusions. Pt reports HI towards his mother a couple days ago without a plan. Pt reports he went to a [facility] appt last week and believes he has an appt next Friday. Verbalizes taking his home medications but feels the psych medications are not working well". Patient seen and evaluated on the unit and was agreeable with speaking to auto service writer in office. He states having homicidal ideations towards his mom due to several concerns including her being overbearing and her not accepting his reconciliation with his . He states he was going through a divorce however he ultimately got back with his which ultimately caused his family to turn against him. He states having dinner with his and mom/stepdad to which he felt as though they did not want him to be happy which made him express statements such as "I wish I was ". He states he told his 's father who advised him to get some help as he has his child and to live for. He states other family members including his siblings have sent text messages telling him to "f off." He states recently being discharged from [facility] for unknown reasons and that he is now following with [facility]. He denied any sleep or appetite changes, difficulties in concentration but did report low energy and anhedonia. Patient denies any suicidal ideations intent or plan. He does report homicidal ideations towards his mother however lessening in intensity. At this time patient denies any auditory or visual hallucinations. Patient denies any flight of ideas racing thoughts and increased in goal directed behavior. Patient admits to using no substances." Hospital course: Upon admission to the unit patient was directable and agreeable to commence treatment and signed adult voluntary form. Patient got along well with other patients on the unit and followed unit protocol. Patient was compliant with the medications and denied any side effects throughout hospital course. Patient was started on Effexor XR and this was increased to 225 mg daily for depression/anxiety, trazodone 150 mg at bedtime for insomnia. Patient spoke of his stressors and engaged in therapy both group and individual. Patient was also seen by medical team for history and physical exam. Throughout the course of the hospitalization patient gradually improved with regards to mood, anxiety, sleep and returned back to their baseline level of functioning. On the day of discharge patient denied any suicidal ideations intent or plan denied any auditory or visual hallucinations. He reported baseline, chronic homicidal ideations with no plan or intent. The patient denied any access to guns or weapons. Patient denied any paranoia and did not endorse any delusions. Patient does not have a significant history of substance abuse and was counseled on abstaining from all substances including alcohol and marijuana. Patient was also counseled on the medications and need for regular compliance and was encouraged to follow-up with their outpatient appointment for mental health and also for primary care. Patient be discharged home with and will follow-up with [facility]. [facility] liaison placed a consult for next step versus ACT team as patient does require increased support. Patient's derrickman helper met with patient on the day of discharge regarding coming up with a diversion plan given his frequent ED visits/readmissions. Mental status exam: General Appearance: Patient appears to be stated age is alert, pleasant, and cooperative. Patient is in no acute distress and has fair hygiene and grooming Behavior: Patient is calmly seated without any agitated behavior. Speech: Patient's speech is fluent and nonpressured. Mood/Affect: Patient reports their mood is "better", affect is congruent and constricted Suicidality/Homicidality: Patient denies having any suicidal or homicidal ideation intent or plan. Perceptions: Patient denies any auditory or visual hallucinations. Though content/process: There is no evidence of any delusional thought content and thought process is linear and goal-directed. More future oriented Memory and concentration: AOX3, grossly intact for the purposes of this session. Can spell "WORLD" backwards correctly. Judgment and insight: Chronically poor, however has improved with guarded prognosis Impression: Adjustment disorder with depressed mood Borderline personality disorder Plan: -Continue with discharge today as patient has improved and stabilized psychiat rically and is not currently an imminent threat to themself and/or others. -Continue medications: Effexor XR to 25 mg daily, trazodone 50 mg at bedtime, Vraylar 4.5 mg daily -Patient was counseled on the need for medication compliance and appropriate follow-up at mental health and also primary care for medical issues. Patient verbalized understanding and agreed. -Social work to help coordinate patients discharge today. also to ensure safe home environment that guns/weapons are either removed from the home or locked away. Social work also to arrange for patients follow up appointments with [facility] for psychiatric care along with follow up with primary care provider. -Patient counseled on abstaining from recreational drugs and marijuana and alcohol. Was informed/educated on the adverse effects on their physical and mental health. Patient verbally agreed and understood. -Patient was instructed to return to the hospital or seek immediate medical care if their psychiatric or medical symptoms do worsen or reoccur. Abnormal Labs 04/17/25 04/18/25 04/18/25 17:46 07:02 07:02 MCH 32.6 H MPV 8.4 L Chloride 108 H Triglycerides 171.00 H Cholesterol 202.00 H Ur Barbiturates Screen Detected H Allergies Allergy/AdvReac Type Severity Reaction Status Date / Time No Known Allergies Allergy Verified 04/17/25 17:43 Vital Signs Temp 97.9 F 04/18/25 21:00 Pulse 74 04/18/25 21:00 Resp 16 04/18/25 21:00 BP 118/79 04/18/25 21:00 Pulse Ox 99 04/18/25 21:00 FiO2 Patient Condition at Discharge: Stable Plan - Discharge Summary Discharge Rx Participant: Yes New Discharge Prescriptions: New Venlafaxine HCl ER [Effexor XR] 150 mg PO DAILY 30 Days #30 cap Venlafaxine HCl ER [Effexor XR] 75 mg PO DAILY 30 Days #30 cap Continue lamoTRIgine [LaMICtal] 200 mg PO BID #0 carBAMazepine [TEGretol] 200 mg PO BID Montelukast [Singulair] 10 mg PO HS Cariprazine HCl [Vraylar] 4.5 mg PO HS Omeprazole [PriLOSEC] 20 mg PO BID carBAMazepine [carBAMazepine ER] 400 mg PO HS traZODone HCL 150 mg PO HS 15 Days #15 tab Zonisamide [Zonegran] 400 mg PO HS PHENobarbitaL [Luminal] 129.6 mg PO HS Discontinued Venlafaxine HCl ER [Effexor XR] 150 mg PO DAILY 14 Days #14 cap Acetaminophen Tab [Tylenol] 650 mg PO Q4HR PRN tab PRN Reason: Mild Pain (Scale 1 To 3) LORazepam [Ativan] 0.5 mg PO HS PRN PRN Reason: Anxiety Ibuprofen [Motrin] 800 mg PO TID PRN PRN Reason: Pain Discharge Medication List lamoTRIgine [LaMICtal] 200 mg PO BID #0 06/28/20 [Rx] carBAMazepine [TEGretol] 200 mg PO BID 10/10/20 [History] PHENobarbitaL [Luminal] 129.6 mg PO HS 08/28/22 [History] Zonisamide [Zonegran] 400 mg PO HS 08/28/22 [History] Montelukast [Singulair] 10 mg PO HS 09/16/24 [History] Cariprazine HCl [Vraylar] 4.5 mg PO HS 12/08/24 [History] Omeprazole [PriLOSEC] 20 mg PO BID 12/08/24 [History] carBAMazepine [carBAMazepine ER] 400 mg PO HS 04/17/25 [History] Venlafaxine HCl ER [Effexor XR] 75 mg PO DAILY 30 Days #30 cap 04/19/25 [Rx] Venlafaxine HCl ER [Effexor XR] 150 mg PO DAILY 30 Days #30 cap 04/19/25 [Rx] traZODone HCL 150 mg PO HS 15 Days #15 tab 04/19/25 [Rx] Follow up Appointment(s)/Referral(s): Ana Maria Samson MD [Primary Care Provider] - 1-2 days [facility] [NON-STAFF] - 04/20/25 9:00 am (With Leonela Gipson 04/21/25 @3pm Bernadine 04/28/25 @ 330pm) Patient Instructions/Handouts: Depression (DC) Activity/Diet/Wound Care/Special Instructions: [facility] Discharge Info Avoid the use of street drugs and alcohol. Take all medications as prescribed. When you are in need of refills on your medications, please contact your outpatient medical provider and/or outpatient psychiatrist. Please go to your scheduled outpatient appointments for aftercare treatment. If symptoms return or become worse, call the crisis line at or and/or visit the nearest emergency room for assistance. National Suicide and Crisis Lifeline - call or text 362. Discharge Disposition: HOME SELF-CARE
== END 2025-04-19 13:27 | disposition home or self-care (01) | DRG 881 ==
LOC: EC 17:39 → 3MHU 20:59
PROVIDERS: ADMIT Psychiatry & Neurology Psychiatry; ATTEND Psychiatry & Neurology Psychiatry
DX: F43.21 Adjustment disorder with depressed mood (principal); G40.409 Other generalized epilepsy and epileptic syndromes, not intractable, without status epilepticus; R45.851 Suicidal ideations; F60.3 Borderline personality disorder; R45.850 Homicidal ideations; G47.00 Insomnia, unspecified; F90.9 Attention-deficit hyperactivity disorder, unspecified type; F41.9 Anxiety disorder, unspecified; K21.9 Gastro-esophageal reflux disease without esophagitis; Z79.899 Other long term (current) drug therapy; Z91.51 Personal history of suicidal behavior; Z56.0 Unemployment, unspecified; Z63.5 Disruption of family by separation and divorce
CPT/HCPCS: 80053; 80061; 80306; 82075; 83036; 84443; 85025; 87635; 99285

== ENCOUNTER 2025-04-23 21:55 | Emergency (ER) | payer MEDICARE, OTHER ==
--- NOTE | 2025-04-23 22:00 | ED ---
Psych HPI - General Source: RN notes reviewed, old records reviewed Mode of arrival: ambulatory Limitations: no limitations - History of Present Illness MD Complaint: suicidal ideation, feels depressed Associated Psychiatric Symptoms: depression, suicidal ideation History of same: Yes Quality: constant Improves With: none Worsens With: none Associated Symptoms: denies other symptoms Treatments Prior to Arrival: placed on mental health hold If Self Harm: admits thoughts of self harm <Gavin Grant - Last Filed: 04/23/25 22:17> <Bello Ivey - Last Filed: 04/24/25 13:09> - General Stated Complaint: Petition Time Seen by Provider: 04/23/25 21:58 - History of Present Illness Initial Comments: This is a 35-year-old male to the ER for evaluation of psychiatric illness, depression and suicidal ideation (Gavin Grant) - Related Data Home Medications Medication Instructions Recorded Confirmed carBAMazepine [TEGretol] 200 mg PO BID 10/10/20 04/17/25 PHENobarbitaL [Luminal] 129.6 mg PO HS 08/28/22 04/17/25 Zonisamide [Zonegran] 400 mg PO HS 08/28/22 04/17/25 Montelukast [Singulair] 10 mg PO HS 09/16/24 04/17/25 Cariprazine HCl [Vraylar] 4.5 mg PO HS 12/08/24 04/17/25 Omeprazole [PriLOSEC] 20 mg PO BID 12/08/24 04/17/25 carBAMazepine [carBAMazepine ER] 400 mg PO HS 04/17/25 04/17/25 Previous Rx's Medication Instructions Recorded lamoTRIgine [LaMICtal] 200 mg PO BID #0 06/28/20 Venlafaxine HCl ER [Effexor XR] 75 mg PO DAILY 30 Days #30 cap 04/19/25 Venlafaxine HCl ER [Effexor XR] 150 mg PO DAILY 30 Days #30 cap 04/19/25 traZODone HCL 150 mg PO HS 15 Days #15 tab 04/19/25 Allergies Allergy/AdvReac Type Severity Reaction Status Date / Time No Known Allergies Allergy Verified 04/23/25 22:03 Review of Systems ROS Other: All systems not noted in ROS Statement are negative. <Gavin Grant - Last Filed: 04/23/25 22:17> ROS Other: All systems not noted in ROS Statement are negative. <Bello Ivey - Last Filed: 04/24/25 13:09> ROS Statement: Those systems with pertinent positive or pertinent negative responses have been documented in the HPI. Past Medical History Past Medical History: GERD/Reflux, Seizure Disorder, Skin Disorder Additional Past Medical History / Comment(s): has history of epilepsy, hx grand mal seizures since childhood, migraines, acne History of Any Multi-Drug Resistant Organisms: None Reported Past Surgical History: Adenoidectomy, Appendectomy, Cholecystectomy, Tonsillectomy Additional Past Surgical History / Comment(s): oral surgery. I & D CYST ON BACK 08/19/22, egd Past Anesthesia/Blood Transfusion Reactions: Previous Problems w/ Anesthesia Additional Past Anesthesia/Blood Transfusion Reaction / Comment(s): SLOW TO WAKE FROM ANESTHESIA", no blood transfusion Smoking Status: Never smoker - Past Family History Mother Family Medical History: Cancer Additional Family Medical History / Comment(s): breast cancer <Gavin Grant - Last Filed: 04/23/25 22:17> General Exam General appearance: alert, in no apparent distress Head exam: Present: atraumatic, normocephalic, normal inspection Eye exam: Present: normal appearance, PERRL, EOMI. Absent: scleral icterus, conjunctival injection, periorbital swelling ENT exam: Present: normal exam, mucous membranes moist Neck exam: Present: normal inspection. Absent: tenderness, meningismus, lymphadenopathy Respiratory exam: Present: normal lung sounds bilaterally. Absent: respiratory distress, wheezes, rales, rhonchi, stridor Cardiovascular Exam: Present: regular rate, normal rhythm, normal heart sounds. Absent: systolic murmur, diastolic murmur, rubs, gallop, clicks GI/Abdominal exam: Present: soft, normal bowel sounds. Absent: distended, tenderness, guarding, rebound, rigid Extremities exam: Present: normal inspection, full ROM, normal capillary refill. Absent: tenderness, pedal edema, joint swelling, calf tenderness Back exam: Present: normal inspection Neurological exam: Present: alert, oriented X3, CN II-XII intact Psychiatric exam: Present: normal affect, normal mood Skin exam: Present: warm, dry, intact, normal color. Absent: rash <Gavin Grant - Last Filed: 04/23/25 22:17> Course <Gavin Grant - Last Filed: 04/23/25 22:17> Vital Signs 04/23/25 04/24/25 21:56 03:16 Temperature 99.0 F Pulse Rate 87 Respiratory 16 18 Rate Blood Pressure 121/76 O2 Sat by Pulse 98 Oximetry - Reevaluation(s) Reevaluation #1: 04/23/25 22:18 Medical records reviewed (Gavin Grant) Reevaluation #2: 04/23/25 22:18 Medically cleared for psychiatric evaluation (Gavin Grant) Reevaluation #3: Was pt. sent in by a medical professional or institution (SHAMA Darby, SMALL BOAT ENGINEER, urgent care, hospital, or senior living...) When possible be specific @ -no Did you speak to anyone other than the patient for history (EMS, parent, family, police, friend...)? What history was obtained from this source @ -no Did you review nursing and triage notes (agree or disagree)? Why? @ -agree Are old charts reviewed (outside hosp., previous admission, EMS record, old EKG, old radiological studies, urgent care reports/EKG's, senior living records)? Report findings @ -yes Differential Diagnosis (chest pain, altered mental status, abdominal pain women, abdominal pain men, vaginal bleeding, weakness, fever, dyspnea, syncope, headache, dizziness, GI bleed, back pain, seizure, CVA, palpatations, mental health, musculoskeletal)? @ -prior EKG interpreted by me (3pts min.). @ -yes X-rays interpreted by me (1pt min.). @ -yes negative for acute disease CT interpreted by me (1pt min.). @ -no U/S interpreted by me (1pt. min.). @ -no What testing was considered but not performed or refused? (CT, X-rays, U/S, labs)? Why? @ -none What meds were considered but not given or refused? Why? @ -none Did you discuss the management of the patient with other professionals (professionals i.e. SHAMA Darby, SMALL BOAT ENGINEER, lab, RT, psych nurse, social media marketing specialist, elementary vocal music teacher, teacher, military police officer, senior case manager)? Give summary @ -no Was smoking cessation discussed for >3mins.? @ -no Was critical care preformed (if so, how long)? @ -no Were there social determinants of health that impacted care today? How? (Homelessness, low income, unemployed, alcoholism, drug addiction, transportation, low edu. Level, literacy, decrease access to med. care, usp, rehab)? @ -none Was there de-escalation of care discussed even if they declined (Discuss DNR or withdrawal of care, Hospice)? DNR status @ -no What co-morbidities impacted this encounter? (DM, HTN, Smoking, COPD, CAD, Cancer, CVA, ARF, Chemo, Hep., AIDS, mental health diagnosis, sleep apnea, morbid obesity)? @ -none Was patient admitted / discharged? Hospital course, mention meds given and route, prescriptions, significant lab abnormalities, going to OR and other pertinent info. @ - Undiagnosed new problem with uncertain prognosis? @ -no Drug Therapy requiring intensive monitoring for toxicity (Heparin, Nitro, Insulin, Cardizem)? @ -no Were any procedures done? @ -no Diagnosis/symptom? @ - Acute, or Chronic, or Acute on Chronic? @ -Acute Uncomplicated (without systemic symptoms) or Complicated (systemic symptoms)? @ -Complicated Side effects of treatment? @ -no Exacerbation, Progression, or Severe Exacerbation? @ -exacerbation Poses a threat to life or bodily function? How? (Chest pain, [place], [place], pneumonia, PE, COPD, DKA, ARF, appy, cholecystitis, CVA, Diverticulitis, Homicidal, Suicidal, threat to staff... and all critical care pts) @ -yes (Gavin Grant) Reevaluation #4: Differential Mental Health Depression, anxiety, bipolar, psychosis, schizophrenia, borderline personality, situational depression, adjustment disorder, behavioral disorder, brain tumor, malingering, substance abuse, encephalopathy, medication reaction, dementia, hypothyroidism, degenerative neurologic disorder, lupus.... This is not meant to be all-inclusive list (Gavin Grant) Medical Decision Making <Bello Ivey - Last Filed: 04/24/25 13:09> - Medical Decision Making Patient seen by mental health services with plan for discharge I did discuss case with psychiatric nurse Patient was reevaluated by myself. Patient is resting comfortably in bed. Patient denies suicidal ideation. Patient does contract for safety. Patient states he does not have access to a gun. Diagnosis: Depression Acuity: Acute Plan for discharge with psychiatric follow-up (Bello Ivey) Disposition <Gavin Grant - Last Filed: 04/23/25 22:17> Is patient prescribed a controlled substance at d/c from ED?: No Time of Disposition: 13:09 <Bello Ivey - Last Filed: 04/24/25 13:09> Clinical Impression: Depression Disposition: HOME SELF-CARE Condition: Stable Instructions (If sedation given, give patient instructions): Depression (ED), Help Prevent Suicide (ED) Additional Instructions: Please follow-up with your primary care physician in the next 1 or 2 days for recheck. Please follow-up with mental health services as directed. Return for thoughts of self-harm, worsening symptoms or other concerns. Referrals: Ana Maria Samson MD [Primary Care Provider] - 1-2 days
[2025-04-23 22:03] VITALS: TEMP 99
[2025-04-24] MEDS: lamoTRIgine 100 MG TAB PO SCH (02:03)
[2025-04-24] MEDS: carBAMazepine 400 MG TAB.ER.12H PO SCH (02:04)
[2025-04-24] MEDS: ZONISAMIDE 100 MG CAP PO SCH (02:05)
[2025-04-24] MEDS: MONTELUKAST 10 MG TAB PO SCH (02:05)
[2025-04-24 03:16] VITALS: RESP 18
[2025-04-24] MEDS: VENLAFAXINE HCL ER 75 MG CAP PO SCH (09:17)
[2025-04-24] MEDS: PANTOPRAZOLE 40 MG TABLET PO SCH (09:17)
[2025-04-24] MEDS: carBAMazepine 200 MG TAB PO SCH (09:17)
[2025-04-24] MEDS: VENLAFAXINE HCL ER 150 MG CAP PO SCH (09:17)
[2025-04-24 13:51] VITALS: BP 122/81; PULSE 85
== END 2025-04-24 13:55 | disposition home or self-care (01) ==
LOC: EC 21:55
DX: F32.A Depression, unspecified (principal)
CPT/HCPCS: 36415; 80156; 80184; 82075; 99285